=== PATIENT | male | born 1945 | race Caucasian/White ===

== ENCOUNTER 2023-05-23 13:36 | Outpatient (OUT) | payer MEDICARE, OTHER, SELFPAY ==
--- NOTE | 2023-05-23 14:11 | CA_ITS ---
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1945 Requested By: NARCISO BULLOCK Order Number: [id number] Reading MD: HARRISON METZGER Interpretive Statements Predominant rhythm is sinus with average rate of 64 bpm Tachycardia - max rate of 187 bpm - longest episode of 5min 4sec w/ rate of 109-115 bpm - 34 episodes of PSVT w/ longest duration of 61 beats Bradycardia - min rate of 35 bpm, occurring during sleep - longest episode of 1h 34min 6sec w/ rate of 40-50 bpm Ventricular ectopy - 732 total (<1%) - 726 PVC - 1 episode of NSVT w duration of 6 beats Accelerated junctional rhythm - duration 3 beats Patient triggered events: none Impression: Predominant rhythm is sinus with average rate of 64 bpm Fastest rate of 187 bpm and slowest rate of 35 bpm 726 PVC 1 episode of NSVT w/ duration of 6 beats 1 epidsode of suspected junctional rythm w/ duration of 3 beats No additional blocks or pauses Electronically Signed On 06-09-2023 7:12:33 EDT by HARRISON METZGER
== END 2023-05-23 13:37 | disposition home or self-care (01) ==
LOC: CARD 13:42
PROVIDERS: PCP Family Medicine; Visit Provider Family Medicine
DX: R00.1 Bradycardia, unspecified (principal)
CPT/HCPCS: 93246

== ENCOUNTER 2023-06-16 12:30 | Outpatient (OUT) | payer MEDICARE, OTHER, SELFPAY ==
--- NOTE | 2023-06-16 13:28 | CA_ITS ---
Patient: AMINA GANT Exam Date: 06/16/2023 : 1945 Gender:M Ordering : TAYLOR COREAS Admission #: [id number] Family : DR CULVERLAS ARA . Order #: [id number] CLICK HERE TO VIEW EXAM ECHOCARDIOGRAM REPORT PROCEDURE: CA ECHO DOPPLER COMPLETE INDICATIONS: Bradycardia, supraventricular tachycardia, heart murmur, hypertension, h/o prostate cancer COMPARISON: None. DESCRIPTION: COMPLETE ECHOCARDIOGRAM Real-time transthoracic echocardiography with 2D, M-mode, spectral and color flow Doppler performed. QUALITY: Technical quality was good. LEFT VENTRICLE: Normal chamber size. Thickened septal wall. Normal systolic function. LV EF: Normal left ventricular ejection fraction, (>55%). DIASTOLIC: Normal diastolic function. ATRIAL SEPTUM: Visually appears intact. LEFT ATRIUM: Normal chamber size. RIGHT ATRIUM: Normal chamber size. RIGHT VENTRICLE: Normal chamber size. Normal right ventricular systolic function. TRICUSPID VALVE: Normal mobility and thickness. No stenosis with mild regurgitation. Doppler studies reveal moderately elevated right sided pressures. RVSP 45 mmHg MITRAL VALVE: Normal mobility and thickness. No evidence of mitral valve stenosis. There is no mitral annular calcification. Trivial mitral regurgitation. AORTIC VALVE: Normal trileaflet appearance. Mildly calcified aortic valve. Mildly diminished mobility. No evidence of significant aortic valve stenosis. DVI 0.5. No aortic regurgitation. AORTIC ROOT: Normal diameter and appearance. PULMONIC VALVE: Normal thickness and mobility. No stenosis. Trivial regurgitation. PERICARDIUM: No evidence of pericardial effusion. IVC: Collapses with inspirations. PLEURA: CONCLUSION: 1. Normal ventricular function. LVEF is 55 to 60%. 2. Mildly calcified aortic valve with no significant stenosis. 3. Mild tricuspid regurgitation. 4. Moderately elevated right-sided pressures. RVSP is 45 mmHg. 5. No pericardial effusion. Adult Echocardiography Procedure Report Left Ventricle LVEDD (3.7 - 5.6 cm): 4.74 cm LVESD (2.2 - 4.0 cm): 2.80 cm LVIVS thickness (0.6 - 1.2 cm): 1.33 cm LVPW thickness (0.5 - 1.0 cm): 0.86 cm e': 0.11 m/s E - e': 5.73 LVOT Max Gradient: 5.08 mm[Hg] LVOT Area (cm2): 1.13 m/s Peak Velocity (LVOT): 1.13 m/s Mean Velocity (LVOT): 0.77 m/s LVOT Diameter 2.03 cm Left Atrium LA Volume Index (2D A2C): 23.62 ml/m2 Left Atrium Systolic Dimension: 3.65 cm Mitral Valve MV E to A Ratio: 0.90 Mitral Valve A-Wave Peak Velocity: 0.72 m/s Mitral Valve E-Wave Peak Velocity: 0.65 m/s Right Ventricle Aorta AO Root Diam: 3.11 cm Ascending Ao Diam: 3.01 cm Aortic Valve AoV Area (Peak Conrad): 1.73 cm2, 1.73 cm2 AoV Area (VTI): 2.30 cm2, 2.30 cm2 Peak Velocity(Antegrade Flow): 2.10 m/s Peak Gradient(Antegrade Flow): 17.72 mm[Hg] Mean Velocity(Antegrade Flow): 1.41 m/s Mean Gradient(Antegrade Flow): 9.13 mm[Hg] Velocity Time Integral: 37.35 cm Tricuspid Valve Peak Velocity (Regurgitant Flow): 3.19 m/s, 3.22 m/s, 3.17 m/s Pulmonic Valve Peak Velocity: 1.58 m/s Peak Gradient: 10.01 mm[Hg], 9.87 mm[Hg] Right Atrium Right Atrium Systolic Pressure: 36.22 ml, 36.22 ml Dictated by: Rio Muller M.D. on 06/16/2023 at 18:37 Approved by: Rio Muller M.D. on 06/16/2023 at 18:41
== END 2023-06-16 12:31 | disposition home or self-care (01) ==
LOC: CARD 12:33
PROVIDERS: PCP Family Medicine; Visit Provider Nurse Practitioner
DX: R94.31 Abnormal electrocardiogram [ECG] [EKG] (principal); I47.29 Other ventricular tachycardia; I47.1 Supraventricular tachycardia
CPT/HCPCS: 93306

== ENCOUNTER 2023-07-05 08:52 | Outpatient (OUT) | payer MEDICARE, OTHER, SELFPAY ==
--- NOTE | 2023-07-05 07:45 | NM_ITS ---
Patient: AMINA GANT Exam Date: 07/05/2023 : 1945 Gender:M Ordering : TAYLOR COREAS Admission #: [id number] Family : DR Jadon Duckworth . Order #: [id number] CLICK HERE TO VIEW EXAM RADIOLOGY REPORT PROCEDURE: NM SANDY PERF SPECT REST STR COMPARISON: None. INDICATIONS: ABNORMAL ELECTROCARDIOGRAM, NONSUSTAINED VENTRICULAR TACHYCARDIA TECHNIQUE: Exam Description: Stress/Rest one day protocol gated SPECT Rest Imagin.8 mCi Tc-99m Cardiolite IV on 07/05/2023 Stress Imaging 30.6 mCi Tc-99m Cardiolite IV on 07/05/2023 Exercise Protocol: Shawn Heart Rate (bpm): Rest: 67 Max: 134 PMHR: 87 Blood Pressure: Rest: 134/80 Max: 178/104 Exercise Time: Minutes: 6 Seconds: 30 Stage Reached: Stage: 2 Mets 7.0 Symptoms: Rest and peak stress ECG findings were pending and the exercise portion of the study was pending per attending physician Dr. CAMPOS . For more details please see separate cardiac stress test report. FINDINGS: QUALITY OF STUDY: Excellent. PERFUSION DEFECT: None. LOCATION: N/A SIZE: N/A. SEVERITY: N/A. TYPE: N/A. WALL MOTION: Normal. LV SIZE: Normal. 97 mL. TID / TCD: None; 0.8 LVEF: Normal. Calculated EF 65%. SUMMARY: Myocardial perfusion imaging study is NORMAL. CONCLUSION: 1. Normal nuclear medicine myocardial perfusion scan. Dictated by: Imtiaz Dodson M.D. on 07/06/2023 at 08:26 Approved by: Imtiaz Dodson M.D. on 07/06/2023 at 09:39
--- NOTE | 2023-07-05 08:52 | PCN_ITS ---
CARDIAC STRESS TEST ? Requesting Physician:? Procedure Date:? 07/05/2023 ? INDICATION:? Abnormal EKG, non-sustained ventricular tachycardia. ? METHODS:? After risks, benefits and alternatives were explained, written informed consent was obtained.? The patient was connected to the appropriate hemodynamic and electrocardiographic monitoring. ? He underwent a Shawn protocol for exercise.? At the completion of exercise, the test was terminated.? ? The patient tolerated the procedure well. ?There were no complications.? He was discharged in a stable state.? ? FINDINGS: The patient exercised for 6 minutes and 31 seconds, reaching stage 2 and achieving 7 METS.? ? Resting heart rate was 44 beats per minute, increasing to a maximum of 150 beats per minute, which is 104% of maximum predicted heart rate.? Resting blood pressure was 142/78 with a maximum blood pressure of 160/80.? ? Apart from shortness of breath, he had no other complaints. ? Electrocardiography: Rest EKG:? This shows sinus bradycardia, 51 beats per minute with occasional premature ventricular contractions.? Otherwise, normal EKG. ? During Exercise and Recovery:? There are infrequent premature ventricular contractions.? There is a short run of narrow complex, irregular, supraventricular tachycardia.? No significant ST-T wave changes are noted.? No significant arrhythmia apart from the paroxysmal supraventricular tachycardia is seen. ? FINAL IMPRESSION: 1.? No ischemic EKG changes seen on treadmill exercise stress test. 2.? Appropriate heart rate and blood pressure response to exercise. 3.? Short run of paroxysmal supraventricular tachycardia noted. 4.? Disla treadmill score 6.3; estimated one year mortality 0.3 to 0.9%.?? Risk category is low risk.? Angiography is usually not indicated. 5. Nuclear images are to be read, interpreted and reported in separate dictation. ? [facility]
== END 2023-07-05 08:53 | disposition home or self-care (01) ==
LOC: NM 09:12
PROVIDERS: PCP Family Medicine; Visit Provider Nurse Practitioner
DX: R94.31 Abnormal electrocardiogram [ECG] [EKG] (principal); I47.29 Other ventricular tachycardia; R00.1 Bradycardia, unspecified; R01.1 Cardiac murmur, unspecified
CPT/HCPCS: 78452; 93017; A9500

== ENCOUNTER 2023-09-25 08:53 | Outpatient (OUT) | payer MEDICARE, OTHER, SELFPAY ==
[2023-09-25 09:27] LABS: Basophils Percent Auto 0.5 % (0.2-2.0); Eosinophils Absolute Auto 0.1 10^3/uL (0.0-0.7); Eosinophils Percent Auto 0.9 % (0.9-7.0); Hematocrit 39.6 % (42.0-54.0); Hemoglobin 13.4 g/dL (14.0-18.0); Immature Granulocytes Abs Auto 0.02 10^3/uL (0.00-0.03); Immature Granulocytes Pct Auto 0.3 % (0.0-0.5); Lymphocytes Absolute Auto 2.9 10^3/uL (1.2-3.8); Lymphocytes Percent Auto 37.4 % (20.5-60.0); Mean Corpuscular HGB Conc 33.8 g/dL (29.9-35.2); Mean Corpuscular Hemoglobin 31.5 pg (25.9-34.0); Monocytes Absolute Auto 0.5 10^3/uL (0.3-0.8); Monocytes Percent Auto 6.6 % (1.7-12.0); Neutrophils Absolute Auto 4.2 10^3/uL (1.4-6.5); Neutrophils Percent Auto 54.3 % (43.0-75.0); Platelet Count 190 10^3/uL (150-450); Red Blood Count 4.26 10^6/uL (4.70-6.10); Red Cell Distribution Width 13.3 % (11.0-15.0); White Blood Count 7.7 10^3/uL (4.0-11.0)
[2023-09-25 09:38] LABS: Estimated Average Glucose 120 mg/dL; Glycohemoglobin A1C 5.8 % (4.5-6.2)
[2023-09-25 10:59] LABS: Prostate Specific Antigen Scrn <0.13 ng/mL (<=4.00)
[2023-09-25 11:03] LABS: Alanine Aminotransferase 40 U/L (16-63); Albumin Globulin Ratio 1.2; Alkaline Phosphatase 40 U/L (46-116); Anion Gap 10.4; Aspartate Amino Transferase 17 U/L (15-37); BUN Creatinine Ratio 15.5; Bilirubin Total 0.6 mg/dL (0.2-1.0); Carbon Dioxide 28.2 mmol/L (21.0-32.0); Chloride 97 mmol/L (98-107); Chol HDL Ratio 2.7; Cholesterol 163 mg/dL (<=200); Estimated GFR (African America >60 (>=60); Estimated GFR (Non-African Ame >60 (>=60); Free T3 2.41 pg/mL (2.18-3.98); Globulin 3.3 g/dL; Glucose 96 mg/dL (74-106); HDL Cholesterol 60 mg/dL (40-60); LDL Cholesterol Calculated 88.8 mg/dL; Potassium 4.6 mmol/L (3.5-5.1); Sodium 131 mmol/L (136-145); Thyroid Stimulating Hormone 1.891 uIU/mL (0.358-3.740); Total Protein 7.3 g/dL (6.4-8.2); Triglycerides 71 mg/dL (<=150); VLDL CHOLESTEROL 14.2 mg/dL
== END 2023-09-25 08:54 | disposition home or self-care (01) ==
LOC: LAB 08:55
PROVIDERS: PCP Family Medicine; Visit Provider Family Medicine
DX: I12.9 Hypertensive chronic kidney disease with stage 1 through stage 4 chronic kidney disease, or unspecified chronic kidney disease (principal); N18.30 Chronic kidney disease, stage 3 unspecified; D47.2 Monoclonal gammopathy; N48.6 Induration penis plastica; Z12.5 Encounter for screening for malignant neoplasm of prostate; R73.09 Other abnormal glucose
CPT/HCPCS: 36415; 80053; 80061; 83036; 84436; 84443; 84481; 85025; G0103

== ENCOUNTER 2023-11-14 09:12 | Outpatient (OUT) | payer MEDICARE, OTHER, SELFPAY ==
--- OUTSIDE RECORDS SUMMARY | 2023-11-14 09:23 | XMS_ITS | CCD ---
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 Mechanic Name Role Phone RIZWANATRELL TELLEZ Referring Unavailable Ileana Earl Unavailable Yudith Rubin Unavailable ARA Guy, DR STUART Primary Care Unavailable AAV, DR OWEN Admitting Unavailable AVA, DR OWEN Consulting Unavailable AVA, DR OWEN Attending Unavailable HOY ., DR STUART Admitting Unavailable HOY ., DR STUART Primary Care Unavailable HOY ., DR STUART Consulting Unavailable HOY ., DR STUART Attending Unavailable HOY ., DR STUART Admitting Unavailable HOY ., DR STUART Primary Care Unavailable HOY ., DR STUART Consulting Unavailable HOY ., DR STUART Attending Unavailable HOY ., DR STUART Admitting Unavailable HOY ., DR STUART Primary Care Unavailable HOY ., DR STUART Consulting Unavailable MICHELY ., DR STUART Attending Unavailable Narciso Duckworth MD Primary Care Provider [phone] NARCISO DUCKWORTH Primary Care Unavailable LYNDSAY RODRIGUEZ Referring Unavailable NARCISO DUCKWORTH Referring Unavailable NARCISO DUCKWORTH Primary Care Unavailable LYNDSAY RODRIGUEZ Attending Unavailable ALTHEA KOROMA Attending Unavailable TAYLOR COREAS Attending Unavailable PARI RIDER Attending Unavailable TAYLOR COREAS Attending Unavailable Medications Current Medications Medication Drug Class(es) Dates Sig (Normalized) Sig (Original) Acidophilus Extra Strength - (2 sources) Acidophilus Extr a Strength - as directed Orally Active Glasscock 500 MG (2 sources) Glasscock 500 MG a s directed Orally Active artemether / lumefantrine (1 source) Antimalarial Artemether-Lumef antrine 20-120 MG as directed Orally Active Coconut Oil (2 sources) Coconut Oil TWIC E A DAY Active Coconut Oil Acti ve Fish Oils (2 sources) take 1 capsule by mo ut once daily Fish Oil 1000 MG 1 capsule Orally Once a day Active Glucosamine Chond MSM Formul a - (2 sources) Glucosamine Barrett d MSM Formula - as directed Orally TWICE A DAY Active Multivitamins (2 sources) Multivitamins as directed Orally Active quercetin 50 mg oral tablet (1 source) take 1 tablet by dom once daily Quercetin 50 MG 1 tablet Orally Once a day Active [place] 540 mg (2 sources) take 1 capsule by mo ut once daily [place] 540 mg 1 Capsule Orally Daily Active taurine 500 mg oral tablet (2 sources) take 1 capsule by mo ut once daily Taurine 500 MG 1 capsule Orally Once a day Active turmeric extract 500 mg oral capsule (2 sources) Turmeric 500 MG as directed Orally Active ubidecarenone 200 mg oral capsule (2 sources) take 1 capsule by mo ut every twenty-four hours CoQ10 200 MG 1 capsule with a meal Orally Once a day for 30 day(s) Active Vitamin C 1000 mg (2 sources) take 1 tablet by dom once daily Vitamin C 1000 mg 1 tablet Orally Once a day Active Vitamin E 400 UNIT (2 sources) take 1 capsule by mo ut once daily Vitamin E 400 UNIT 1 capsule Orally Once a day Active Completed/Discontinued Medications Medication Drug Class(es) Dates Sig (Normalized) Sig (Original) acetaminophen 500 mg oral tablet (1 source) End: 05-16-2023 acetaminophen (TYLENOL EXTRA STRENGTH) 500 mg tablet Take 1,000 mg by mouth as needed. 0 05/16/2023 Discontinued Comment on above: Take 1,000 mg by dom as needed. ascorbic acid 1000 mg oral tablet (3 sources) Vitamin C take 3 tablets by mouth three times weekly Ascorbic Acid (VITAMIN C) 1,000 mg tablet Take 3,000 mg by mouth 3 times a WEEK. 0 Active Comment on above: Take 3,000 mg by dom 3 times a WEEK. aspirin 81 mg delayed release oral tablet (6 sources) Platelet Aggregation Inhibitor, Nonsteroidal Anti-inflammatory Drug Start: 07-16-2019 take 1 tablet by mouth twice daily aspirin, enteric coated (ASPIRIN, ENTERIC COATED) 81 mg EC tablet Take 1 tablet by mouth twice daily for 14 days. 28 tablet 0 07/16/2019 Active take 1 tablet by mouth once nikki y aspirin, enteric coated (ASPIRIN, ENTERIC COATED) 81 mg EC tablet Indications: Prostate cancer (HCC) Take 81 mg by mouth once daily. 0 Active take 1 tablet by dom th every twenty-four hours Aspirin 81 MG 1 tablet Orally Once a day Active Comment on above: Take 81 mg by mouth once daily. Take 1 tablet by dom th twice daily for 14 days. diclofenac sodium 25 mg delayed release oral tablet (5 sources) Nonsteroidal Anti-inflammatory Drug take 1 tablet by mouth twice daily diclofenac, EC, (VOLTAREN) 25 mg EC tablet Take 25 mg by mouth twice daily. 0 Active take 1 tablet by dom th every twelve hours Diclofenac Sodium 75 MG 1 tablet Orally Twice a day Active Comment on above: Take 25 mg by mouth twice daily. docusate sodium 100 mg oral capsule (1 source) Start: 9 End: 3 take 1 capsule by mouth twice daily docusate sodium (COLACE) 100 mg capsule Take 1 capsule by mouth twice daily. 60 capsule 1 07/16/2019 05/16/2023 Discontinued Comment on above: Take 1 capsule by mo [facility] twice daily. Garlic preparation (1 source) Non-Standardized Food Allergenic Extract End: 3 take 1 tablet by mouth once daily GARLIC ORAL Indications: Prostate cancer (HCC) Take 1 tablet by mouth once daily. 0 05/16/2023 Discontinued Comment on above: Take 1 tablet by dom once daily. Lactobac no.41-Bifidobact no.7 (PROBIOTIC-10) 70 mg (3 billion cell) cap (3 sources) take 1 capsule by mouth once daily Lactobac no.41-Bifidobact no.7 (PROBIOTIC-10) 70 mg (3 billion cell) cap Take 1 capsule by mouth once daily. 0 Active Comment on above: Take 1 capsule by mo uth once daily. lecithin 1200 mg oral capsule (1 source) End: 3 take 1 capsule by mouth once daily Lecithin 1,200 mg cap Take 1 capsule by mouth once daily. 0 05/16/2023 Discontinued Comment on above: Take 1 capsule by mo ut once daily. losartan potassium 100 mg oral tablet (6 sources) Angiotensin 2 Receptor Igor Start: 12-09-201 6 take 1 tablet by mouth once daily losartan (COZAAR) 100 mg tablet Indications: Prostate cancer (HCC) Take 100 mg by mouth once daily. 0 09/23/2016 Active take 1 tablet by mouth once nikki y Losartan Potassium 50 MG TAKE 1 TABLET BY MOUTH DAILY for 90 Active Comment on above: Take 100 mg by mouth once daily. lovastatin 20 mg oral tablet (5 sources) HMG-CoA Reductase Inhibitor take 1 tablet by mouth once daily at bedtime lovastatin (MEVACOR) 20 mg tablet Take 20 mg by mouth daily at bedtime. 0 Active Comment on above: Take 20 mg by mouth daily at bedtime. MINERALS ORAL (3 sources) take 1 tablet by mouth once daily MINERALS ORAL Take 1 tablet by mouth once daily. 0 Active Comment on above: Take 1 tablet by dom th once daily. multivitamin (MULTIPLE VITAMINS) tablet (3 sources) take 1 tablet by mouth once daily multivitamin (MULTIPLE VITAMINS) tablet Take 1 tablet by mouth once daily. 0 Active Comment on above: Take 1 tablet by dom th once daily. mupirocin 0.02 mg/mg topical ointment (3 sources) RNA Synthetase Inhibitor Antibacterial Start: 06-25-20 19 mupirocin (BACTROBAN) 2 % ointment Apply 0.5 inch with cotton swab (Q-tip) to each nostril in the morning and evening for 5 days prior to and including day of surgery. 22 g 0 06/25/2019 Active Comment on above: Apply 0.5 inch with cotton swab (Q-tip) to each nostril in the morning and evening for 5 days prior to and including day of surgery. Onpbu-4-GMJ-EPA-Fish Oil (FISH OIL) 1,000 mg (120 mg-180 mg) cap (3 sources) take 1 capsule by mouth once daily Cvyaq-7-RTC-EPA-Fish Oil (FISH OIL) 1,000 mg (120 mg-180 mg) cap Take 1 g by mouth once daily. 0 Active Comment on above: Take 1 g by mouth on ce daily. prasterone 50 mg oral tablet (5 sources) take 1 tablet by mouth once daily prasterone, dhea, (DHEA) 50 mg tab Take 50 mg by mouth once daily. 0 Active DHEA 50 50 MG as directed Orally TWICE A DAY Active DHEA 50 50 MG as directed Orally once a day Active Comment on above: Take 50 mg by mouth once daily. Esvin Coleo 160 mg capsule (3 sources) take 1 capsule by mouth three times daily [place] 160 mg capsule Take 160 mg by mouth three times daily. 0 Active Comment on above: Take 160 mg by mouth three times daily. spironolactone 50 mg oral tablet (5 sources) Aldosterone Antagonist take 1 tablet by mouth once daily spironolactone (ALDACTONE) 50 mg tablet Take 50 mg by mouth once daily. 0 Active Comment on above: Take 50 mg by mouth once daily. tamsulosin hydrochloride 0.4 mg oral capsule (5 sources) alpha-Adrenergic Igor Start: 09-30-20 16 take 0.4 mg by mouth once daily tamsulosin ER (FLOMAX) 0.4 mg cp24 Indications: Prostate cancer (HCC) Take 0.4 mg by mouth once daily. 0 09/30/2016 Active Comment on above: Take 0.4 mg by mouth once daily. turmeric-turmeric root extract 450-50 mg cap (3 sources) take 1 capsule by mouth once daily turmeric-turmeric root extract 450-50 mg cap Take 1 capsule by mouth once daily. 0 Active Comment on above: Take 1 capsule by mo uth once daily. Vitamin B Complex (5 sources) take 1 tablet by mouth once daily vitamin b complex tab Take 1 tablet by mouth once daily. 0 Active Vitamin B Comple x - Orally Active Comment on above: Take 1 tablet by dom th once daily. VITAMIN E ACETATE ORAL (3 sources) take 1200 mg by mouth twice daily VITAMIN E ACETATE ORAL Take 1,200 mg by mouth twice daily. 0 Active Comment on above: Take 1,200 mg by dom th twice daily. Problems Active Problems Problem Classification Problem Date Documented Da te Episodic/Chronic Cardiac dysrhythmias (2 sources) Supraventricular tachycardia; Translations: [Supraventricular tachycardia] Onset: 3 Chronic Chronic kidney disease (8 sources) Chronic kidney disease stage 3; Translations: [Chronic kidney disease, stage 3 (moderate)] Onset: 8 05-16-2023 Chronic Chronic kidney disease (7 sources) Chronic kidney disease; Translations: [Chronic kidney disease, stage 3a] Onset: 1 Resolved: 1 Deficiency and other anemia (3 sources) Anemia of renal disease; Translations: [Anemia in chronic kidney disease] 05-16-2023 Chronic Deficiency and other anemia (2 sources) Anemia in chronic kidney disease Onset: 1 Resolved: 1 Chronic Deficiency and other anemia (2 sources) Iron deficiency anemia; Translations: [Iron deficiency anemia, unspecified] Episodic Disorders of lipid metabolism (5 sources) Pure hypercholesterolemia, unspecified; Translations: [Hyperlipidemia, unspecified] Onset: 7 07-16-2019 Chronic Essential hypertension (6 sources) Essential hypertension; Translations: [Essential (primary) hypertension] Onset: 8 05-16-2023 Chronic Gastrointestinal hemorrhage (2 sources) Hematochezia; Translations: [Melena] Episodic Hypertension with complications and secondary hypertension (4 sources) Hypertensive renal disease; Translations: [Hypertensive chronic kidney disease with stage 1 through stage 4 chronic kidney disease, or unspecified chronic kidney disease] Onset: 1 Resolved: 1 Chronic Osteoarthritis (11 sources) Primary osteoarthritis, right shoulder; Translations: [Localized, primary osteoarthritis of the shoulder region] Onset: 8 Resolved: 1 Chronic Other connective tissue disease (1 source) Presence of left artificial shoulder joint; Translations: [Presence of left artificial shoulder joint] Onset: 9 Chronic Other connective tissue disease (3 sources) History of operative procedure on shoulder; Translations: [Presence of unspecified artificial shoulder joint] Onset: 7 03-15-2017 Chronic Other connective tissue disease (3 sources) History of left shoulder arthroplasty; Translations: [Presence of left artificial shoulder joint] Onset: 9 07-01-2021 Chronic Residual codes; unclassified (1 source) Generalized aches and pains; Translations: [Pain, unspecified] 05-16-2023 Episodic Unclassified (3 sources) CONTACT W/AND (SUSP) EXPOS COVID-19; Translations: [CONTACT W/AND (SUSP) EXPOS COVID-19] Onset: 2 Unclassified (1 source) COUGH, UNSPECIFIED; Translations: [COUGH, UNSPECIFIED] Onset: 2 Unclassified (1 source) Supraventricular tachycardia, unspecified; Translations: [Supraventricular tachycardia, unspecified] Onset: 3 Unclassified (1 source) Other ventricular tachycardia; Translations: [Other ventricular tachycardia] Onset: 3 Past or Other Problems Problem Classification Problem Date Documented Date Episodic/Chronic Cardiac dysrhythmias (3 sources) Bradycardia; Translations: [Bradycardia, unspecified] Onset: 06-06-2023 05-16-2023 Episodic Diabetes mellitus without complication (1 source) Other abnormal glucose; Translations: [OTHER ABNORMAL GLUCOSE] Onset: 09-02-2022 Episodic Heart valve disorders (2 sources) Cardiac murmur, unspecified; Translations: [Cardiac murmur, unspecified] Onset: 06-06-2023 Episodic Malaise and fatigue (1 source) Other fatigue; Translations: [OTHER FATIGUE] Onset: 09-02-2022 Episodic Other aftercare (1 source) Other halfway (current) drug therapy; Translations: [OTH SALES REPRESENTATIVE TRAINEE CURRENT DRUG THERAPY] Onset: 09-02-2022 Episodic Other non-traumatic joint disorders (1 source) Pain in unspecified joint; Translations: [PAIN IN UNSPECIFIED JOINT] Onset: 09-02-2022 Episodic Other non-traumatic joint disorders (3 sources) Shoulder pain; Translations: [Pain in unspecified shoulder] Onset: 07-16-2019 07-16-2019 Episodic Other screening for suspected conditions (not mental disorders or infectious disease) (4 sources) Encounter for screening for malignant neoplasm of prostate; Translations: [Encounter for screening for malignant neoplasm of rectum] Onset: 09-02-2022 Episodic Other upper respiratory disease (1 source) Nasal congestion; Translations: [NASAL CONGESTION] Onset: 10-07-2022 Episodic Unclassified (1 source) CONTACT W/AND (SUSP) EXPOS COVID-19; Translations: [CONTACT W/AND (SUSP) EXPOS COVID-19] Onset: 10-03-2022 Unclassified (1 source) Supraventricular tachycardia, unspecified; Translations: [Supraventricular tachycardia, unspecified] Onset: 08-08-2023 Unclassified (1 source) Other ventricular tachycardia; Translations: [Other ventricular tachycardia] Onset: 06-06-2023 Results Test Name Value Interpretation Reference Range Facility Office [place] 10-02-2023 Follow-up visit [id number] Amina Lim 1945 Date Provider Department [place] 10/02/2023 1596-TAYLOR COREAS LEIDY Aguir[facility] Family History Problem Relation Age of Onset Other Father Lupus Father Family Status - Relation Status Age at Father Level of Service:21260 OR OFFICE/OUTPATIENT ESTABLISHED MOD MDM [address] [facility] Office [place] 08-08-2023 Follow-up visit [id number] Amina Lim 1945 M Date Provider Department [facility] 08/08/2023 241-PARI RIDER LEIDY [facility] Family History Problem Relation Age of Onset Other Father Lupus Father Family Status - Relation Status Age at Father Level of Service:53295 OR OFFICE/OUTPATIENT NEW MODERATE MDM 45-[address] [facility] 36on 07-17-2023 36 Basia, can you please get this patient scheduled for a telemed with Dr. Rider ([facility]) next available?? Thank you! [facility] 36on 07-13-2023 36 Patient called to nv ke you aware that he's had several episodes of near syncope. He's checked his blood sugar, HR, and BP during these episodes. Blood sugar is normal (107). BP has been 147/68, 144/70, 141/70. HR around 48 he said. You're here on Monday but have 17 patients already. Wasn't sure if you wanted me to bring him in or if you wanted something else. His stress test is now uploaded into his remediation project engineer for your review. Please advise. Thanks. [facility] 25(OH)D3 [facility] 2022 25-hydroxyvitamin D3 [Mass/Vol] 37.6 ng/mL Normal 31.0-80.0 [facility] Comment on above: Order Comment: Speci men Type: BLOOD SPECIMEN Ordering Facility: [facility] Address: [address] [place] [id number] Result Comment: Clas sification of 25 [place] Vitamin D status: Deficiency/Insufficiency: < or = 30 ng/ml. Sufficiency/Optimal Levels: 31-80 ng/mL Toxicity: > 100 ng/mL. Test performed by chemiluminescent immunoassay. Performed By: #### 1 989-3 #### [facility] CLIA [id number] [address] [facility] [id number] [address] [place] CBC panel Auto (Bld)on 06-14 Erythrocyte distribution width (RBC) [Ratio] 13.8 % Normal 11.5-15.0 [facility] Comment on above: Order Comment: Speci men Type: BLOOD SPECIMEN Ordering Facility: [facility] Address: [address] [place] [address] Performed By: #### 5 8410-2 #### [facility] CLIA [id number] [address] [place] [address] Hematocrit (Bld) [Volume fraction] 40.1 % Normal 39.0-51.0 [facility] Comment on above: Order Comment: Speci men Type: BLOOD SPECIMEN Ordering Facility: [facility] Address: [address] [place] [address] Performed By: #### 5 8410-2 #### [facility] CLIA [id number] [address] [place] [address] Hemoglobin (Bld) [Mass/Vol] 13.6 g/dL Normal 13.0-17.0 [facility] Comment on above: Order Comment: Speci men Type: BLOOD SPECIMEN Ordering Facility: [facility] Address: [address] [place] [address] Performed By: #### 5 8410-2 #### [facility] CLIA [id number] [address] [place] [address] MCH (RBC) [Entitic mass] 30.8 pg Normal 26.0-34.0 [facility] Comment on above: Order Comment: Speci men Type: BLOOD SPECIMEN Ordering Facility: [facility] Address: [address] [place] [address] Performed By: #### 5 8410-2 #### [facility] CLIA [id number] [address] [place] [address] MCHC (RBC) [Mass/Vol] 33.9 g/dL Normal 30.5-36.0 [facility] Comment on above: Order Comment: Speci men Type: BLOOD SPECIMEN Ordering Facility: [facility] Address: [address] [address] Performed By: #### 5 8410-2 #### [facility] CLIA [id number] [address] [place] [address] MCV (RBC) [Entitic vol] 90.7 fL Normal 80.0-100.0 [facility] Comment on above: Order Comment: Speci men Type: BLOOD SPECIMEN Ordering Facility: [facility] Address: [address] [address] Performed By: #### 5 8410-2 #### [facility] CLIA [id number] [address] [place] [address] Nucleated RBC (Bld) [#/Vol] 10*3/uL Normal <0.01 [facility] Comment on above: Order Comment: Speci men Type: BLOOD SPECIMEN Ordering Facility: [facility] Address: [address] [address] Performed By: #### 5 8410-2 #### [facility] CLIA [id number] [address] [place] [address] Platelet mean volume (Bld) [Entitic vol] 9.4 fL Normal 9.0-12.7 [facility] Comment on above: Order Comment: Speci men Type: BLOOD SPECIMEN Ordering Facility: [facility] Address: [address] [address] Performed By: #### 5 8410-2 #### [facility] CLIA [id number] [address] [place] [address] Platelets (Bld) [#/Vol] 202 10*3/uL Normal 150-400 [facility] Comment on above: Order Comment: Speci men Type: BLOOD SPECIMEN Ordering Facility: [facility] Address: [address] [address] Performed By: #### 5 8410-2 #### [facility] CLIA [id number] [address] [place] [address] RBC (Bld) [#/Vol] 4.42 10*6/uL Normal 4.20-6.00 [facility] Comment on above: Order Comment: Speci men Type: BLOOD SPECIMEN Ordering Facility: [facility] Address: [address] [place] [address] Performed By: #### 5 8410-2 #### [facility] CLIA [id number] [address] [place] [address] WBC (Bld) [#/Vol] 9.80 10*3/uL Normal 3.70-11.00 [facility] Comment on above: Order Comment: Speci men Type: BLOOD SPECIMEN Ordering Facility: [facility] Address: [address] [place] [address] Performed By: #### 5 8410-2 #### [facility] CLIA [id number] [address] [place], [place] [id number] IMMUNOFIXATION SCREEN, SERUM on 06-14-2023 INTERPRETATION (MPA) Atypical restricted bands are present in the IgG and kappa regions. Consistent with IgG kappa monoclonal gammopathy. Normal [facility] Comment on above: Order Comment: Speci men Type: BLOOD SPECIMEN Ordering Facility: [facility] Address: [address] [place] [address] Performed By: #### I FESC #### [facility] CLIA [id number] [address] [place] [address] [place] MPA RESULT M protein is present. Abnormal No M p rotein is identified. [facility] Comment on above: Order Comment: Speci men Type: BLOOD SPECIMEN Ordering Facility: [facility] Address: [address] [place] [address] Performed By: #### I FESC #### [facility] CLIA [id number] [facility] [address] OF [place] STAFF REVIEW (MPA) Reviewed by Dr. Gwen Valencia MD Normal [facility] Comment on above: Order Comment: Speci men Type: BLOOD SPECIMEN Ordering Facility: [facility] Address: [address] [address] Performed By: #### I FESC #### [facility] CLIA [id number] [address] [place] [address] [place] IMMUNOGLOBULINS GAMon 2022 IgA [Mass/Vol] 20 mg/dL Low 70-400 [facility] Comment on above: Order Comment: Speci men Type: BLOOD SPECIMEN Ordering Facility: [facility] Address: [address] [address] Performed By: #### S ERIMM #### [facility] CLIA [id number] [address] [place] [address] [place] IgG [Mass/Vol] 1106 mg/dL Normal 700-1600 [facility] Comment on above: Order Comment: Speci men Type: BLOOD SPECIMEN Ordering Facility: [facility] Address: [address] [place] [address] Performed By: #### S ERIMM #### [facility] CLIA [id number] [address] [place] [address] [place] IgM [Mass/Vol] 14 mg/dL Low 40-230 [facility] Comment on above: Order Comment: Speci men Type: BLOOD SPECIMEN Ordering Facility: [facility] Address: [address] [place], [place] [id number] Performed By: #### S ERIMM #### [facility] CLIA [id number] [address] [place] [address] [place] KAPPA/RHODES,FREE,SERon 2022 Immunoglobulin light chains.kappa.free (S) [Mass/Vol] 20.2 mg/L High 3.3-19.4 [facility] Comment on above: Order Comment: Speci men Type: BLOOD SPECIMEN Ordering Facility: [facility] Address: [address] [place] [address] Result Comment: Rare ly, increased serum free light chains levels may not be detected or accurately quantified due to prozone phenomenon or in high viscosity samples using this immunoturbidimetric assay. Correlation with other laboratory results and clinical findings is recommended. The [place] Free Light Chain was performed using the Binding Site Optilite immunoturbidimetric method. Result obtained with different assay methods or kits cannot be used interchangeably. Performed By: #### K LFRS #### [facility] CLIA [id number] [address] [place] [address] [place] Immunoglobulin light chains.kappa/Immuno globulin light chains.lambda (S) [Mass ratio] 2.13 High 0.26-1.65 [facility] Comment on above: Order Comment: Gianna ball Type: BLOOD SPECIMEN Ordering Facility: [facility] Address: [address] [place] [address] Performed By: #### K LFRS #### [facility] CLIA [id number] [address] [place] [address] OF [facility] Immunoglobulin light chains.lambda.free [Mass/Vol] 9.5 mg/L Normal 5.7-26.3 [facility] Comment on above: Order Comment: Gianna ball Type: BLOOD SPECIMEN Ordering Facility: [facility] Address: [address] [place] [address] Result Comment: Rare ly, increased serum free light chains levels may not be detected or accurately quantified due to prozone phenomenon or in high viscosity samples using this immunoturbidimetric assay. Correlation with other laboratory results and clinical findings is recommended. The Lambda Free Light Chain was performed using the Binding Site Optilite immunoturbidimetric method. Result obtained with different assay methods or kits cannot be used interchangeably. Performed By: #### K LFRS #### [facility] CLIA [id number] [address] [place] [address] [place] [facility] Parathyrin.intact [Mass/Vol] 38 pg/mL Normal 15-65 [facility] Comment on above: Order Comment: Speci men Type: BLOOD SPECIMEN Ordering Facility: [facility] Address: [address] [address] Performed By: #### 2 731-8 #### [facility] CLIA [id number] [address] [place] [address] [place] Prot/Creat Uron 06-14-2023 Protein/Creatinine (U) [Mass ratio] mg/g Normal <0.15 [facility] Comment on above: Order Comment: Speci men Type: URINE SPECIMEN Ordering Facility: [facility] Address: [address] [address] Result Comment: Adul t Proteinuria Categories: <0.15 mg/mg is considered normal to mildly increased 0.15 - 0.50 mg/mg is considered moderately increased >0.50 mg/mg is considered severely increased KDIGO. (2013). KDIGO 2012 Clinical Practice Guideline for the Evaluation and Management of Chronic Kidney Disease. Official Journal of the International Society of Nephrology, 3(1), 1-150. Performed By: #### 2 4356-8 #### [facility] CLIA [id number] [address] [place] [address] [place] Protein/Creatinine (U) [Mass ratio]on 06-14-2023 Creatinine (U) [Mass/Vol] 45.4 mg/dL Normal 20.0-300.0 [facility] Comment on above: Order Comment: Speci men Type: URINE SPECIMEN Ordering Facility: [facility] Address: [address] Performed By: #### 2 4356-8 #### [facility] CLIA [id number] [address] [place] [address] [place] Protein (U) [Mass/Vol] mg/dL Normal 0-20 [facility] Comment on above: Order Comment: Speci men Type: URINE SPECIMEN Ordering Facility: [facility] Address: [address] Performed By: #### 2 4356-8 #### [facility] CLIA [id number] [address] [place] [address] [place] Renal function 2000 panelon 06-14-2023 Albumin [Mass/Vol] 4.6 g/dL Normal 3.9-4.9 [facility] Comment on above: Order Comment: Speci men Type: URINE SPECIMEN Ordering Facility: [facility] Address: [address] [place], [place] [address] Performed By: #### 2 4356-8 #### [facility] CLIA [id number] [address] [place] [address] [place] Anion gap [Moles/Vol] 9 mmol/L Normal 9-18 [facility] Comment on above: Order Comment: Speci men Type: URINE SPECIMEN Ordering Facility: [facility] Address: [address] [place], [place] [address] Performed By: #### 2 4356-8 #### [facility] CLIA [id number] [address] [place] [address] [place] Calcium [Mass/Vol] 9.5 mg/dL Normal 8.5-10.2 [facility] Comment on above: Order Comment: Speci men Type: URINE SPECIMEN Ordering Facility: [facility] Address: [address] [place], [place] [address] Performed By: #### 2 4356-8 #### [facility] CLIA [id number] [address] [place] [address] [place] Chloride [Moles/Vol] 97 mmol/L Normal 97-105 [facility] Comment on above: Order Comment: Speci men Type: URINE SPECIMEN Ordering Facility: [facility] Address: [address] Performed By: #### 2 4356-8 #### [facility] CLIA [id number] [address] [place] [address] [place] CO2 [Moles/Vol] 28 mmol/L Normal 22-30 [facility] Comment on above: Order Comment: Speci men Type: URINE SPECIMEN Ordering Facility: [facility] Address: [address] [address] Performed By: #### 2 4356-8 #### [facility] CLIA [id number] [address] [place] [address] [place] Creatinine [Mass/Vol] 1.47 mg/dL High 0.73-1.22 [facility] Comment on above: Order Comment: Speci men Type: URINE SPECIMEN Ordering Facility: [facility] Address: [address] Performed By: #### 2 4356-8 #### [facility] CLIA [id number] [address] [place] Creatinine and Glomerular filtration rate.predicted panel (S/P/Bld) 49 mL/min/1.73m??? Low >=60 [facility] Comment on above: Order Comment: Speci men Type: URINE SPECIMEN Ordering Facility: [facility] Address: [address] [place] [address] Result Comment: Shira mated Glomerular Filtration Rate (eGFR) is calculated using the 2020 CKD-EPI creatinine equation. This equation utilizes serum creatinine, sex, and age as parameters. The creatinine assay has traceable calibration to isotope dilution-mass spectrometry. Refer to KDIGO guidelines for clinical interpretation. In patients with unstable renal function, e.g. those with acute kidney injury, the eGFR may not accurately reflect actual GFR. Performed By: #### 2 4356-8 #### [facility] CLIA [id number] [address] [place] [address] [place] Glucose [Mass/Vol] 112 mg/dL High 74-99 [facility] Comment on above: Order Comment: Speci men Type: URINE SPECIMEN Ordering Facility: [facility] Address: [address] [address] Result Comment: The [place] Diabetes Association (ADA) provides guidance for cutoff values for fasting glucose and random glucose. The ADA defines fasting as no caloric intake for at least 8 hours. Fasting plasma glucose results between 100 to 125 mg/dL indicate increased risk for diabetes (prediabetes). Fasting plasma glucose results greater than or equal to 126 mg/dL meet the criteria for diagnosis of diabetes. In the absence of unequivocal hyperglycemia, results should be confirmed by repeat testing. In a patient with classic symptoms of hyperglycemia or hyperglycemic crisis, random plasma glucose results greater than or equal to 200 mg/dL meet the criteria for diagnosis of diabetes. Reference: Standards of Medical Care in Diabetes 2016, [place] [employer] Association. Diabetes Care. 2016.39(Suppl 1). Performed By: #### 2 4356-8 #### [facility] CLIA [id number] [facility] [place] [place] [address] [place] Phosphate [Mass/Vol] 3.3 mg/dL Normal 2.7-4.8 [facility] Comment on above: Order Comment: Speci men Type: URINE SPECIMEN Ordering Facility: [facility] Address: [address] [address] Performed By: #### 2 4356-8 #### [facility] CLIA [id number] [address] [place] [address] [place] Potassium [Moles/Vol] 4.2 mmol/L Normal 3.7-5.1 [facility] Comment on above: Order Comment: Speci men Type: URINE SPECIMEN Ordering Facility: [facility] Address: [address] Performed By: #### 2 4356-8 #### [facility] CLIA [id number] [address] [place] [address] [place] Sodium [Moles/Vol] 134 mmol/L Low 136-144 [facility] Comment on above: Order Comment: Speci men Type: URINE SPECIMEN Ordering Facility: [facility] Address: [address] Performed By: #### 2 4356-8 #### [facility] CLIA [id number] [address] [place] [address] [place] Urea nitrogen [Mass/Vol] 25 mg/dL High 9-24 [facility] Comment on above: Order Comment: Speci men Type: URINE SPECIMEN Ordering Facility: [facility] Address: [address] Performed By: #### 2 4356-8 #### [facility] CLIA [id number] [address] [place] [address] [place] Urinalysis complete panel (U )on 06-14-2023 Bilirubin Ql (U) Negative Normal Negative [facility] Comment on above: Order Comment: Speci men Type: URINE SPECIMEN Ordering Facility: [facility] Address: [address] [place] [address] Performed By: #### 2 4356-8 #### [facility] CLIA [id number] [facility] [place] [place] [address] [place] Clarity (Unsp spec) Clear Normal Clear [facility] Comment on above: Order Comment: Speci men Type: URINE SPECIMEN Ordering Facility: [facility] Address: [address] [place], [place] [address] Performed By: #### 2 4356-8 #### [facility] CLIA [id number] [address] [place] [address] [place] Color (U) Light Yellow Normal Yellow [facility] Comment on above: Order Comment: Speci men Type: URINE SPECIMEN Ordering Facility: [facility] Address: [address] Performed By: #### 2 4356-8 #### [facility] CLIA [id number] [address] [place] [address] [place] Glucose Test strip (U) [Mass/Vol] Negative Normal Trace, Negative [facility] Comment on above: Order Comment: Speci men Type: URINE SPECIMEN Ordering Facility: [facility] Address: [address] [place] [address] Performed By: #### 2 4356-8 #### [facility] CLIA [id number] [address] [place] [address] [place] Hemoglobin Ql (U) Negative Normal Negative, Trace [facility] Comment on above: Order Comment: Speci men Type: URINE SPECIMEN Ordering Facility: [facility] Address: [address] Performed By: #### 2 4356-8 #### [facility] CLIA [id number] [address] [place] [address] [place] Ketones Ql (U) Negative Normal Trace, Negative [facility] Comment on above: Order Comment: Speci men Type: URINE SPECIMEN Ordering Facility: [facility] Address: [address] [place] [address] Performed By: #### 2 4356-8 #### [facility] CLIA [id number] [address] [place] [address] [place] Leukocyte esterase Test strip Ql (U) Negative Normal Negative, 25 Bubba/uL [facility] Comment on above: Order Comment: Speci men Type: URINE SPECIMEN Ordering Facility: [facility] Address: [address] [place], [place] [address] Performed By: #### 2 4356-8 #### [facility] CLIA [id number] [address] [place] [address] [place] Nitrite Ql (U) Negative Normal Negative [facility] Comment on above: Order Comment: Speci men Type: URINE SPECIMEN Ordering Facility: [facility] Address: [address] [place], [place] [address] Performed By: #### 2 4356-8 #### [facility] CLIA [id number] [address] [place] [address] [place] pH (U) 6.5 [pH] Normal 5.0-8.0 [facility] Comment on above: Order Comment: Speci men Type: URINE SPECIMEN Ordering Facility: [facility] Address: [address] Performed By: #### 2 4356-8 #### [facility] CLIA [id number] [address] [place] [address] [place] Protein (U) [Mass/Vol] Negative Normal Trace, Negative [facility] Comment on above: Order Comment: Speci men Type: URINE SPECIMEN Ordering Facility: [facility] Address: [address] Performed By: #### 2 4356-8 #### [facility] CLIA [id number] [address] [place] [address] [place] RBC LM.HPF (Urine sed) [#/Area] 0-3 /HPF Normal 0-3 /HPF [facility] Comment on above: Order Comment: Speci men Type: URINE SPECIMEN Ordering Facility: [facility] Address: [address] Performed By: #### 2 4356-8 #### [facility] CLIA [id number] [address] [place] [address] [place] Specific gravity (U) [Rel density] 1.012 Normal 1.005-1.030 [facility] Comment on above: Order Comment: Speci men Type: URINE SPECIMEN Ordering Facility: [facility] Address: [address] Performed By: #### 2 4356-8 #### [facility] CLIA [id number] [address] [place] [address] [place] Urobilinogen Ql (U) Negative Normal Negative [facility] Comment on above: Order Comment: Speci men Type: URINE SPECIMEN Ordering Facility: [facility] Address: [address] Performed By: #### 2 4356-8 #### [facility] CLIA [id number] [address] [place] [address] [place] WBC LM.HPF (Urine sed) [#/Area] 0-5 /HPF Normal 0-5 /HPF [facility] Comment on above: Order Comment: Speci men Type: URINE SPECIMEN Ordering Facility: [facility] Address: [address] [place] [address] Performed By: #### 2 4356-8 #### [facility] CLIA [id number] [address] [id number] [place] Office Visiton 06-06-2023 Follow-up visit [id number] Amina Lim 1945 M Date Provider Department Center 06/06/2023 [facility] Family History Problem Relation Age of Onset Other Father Lupus Father Family Status - Relation Status Age at Father Level of Service:51674 OR OFFICE/OUTPATIENT NEW MODERATE MDM 45-59 MINUTES Normal [facility] CNOVon 05-16-2023 CNOV Office Visit (KIDFRW ) AMINA LIM ([id number]) 1945 M Date Time Provider Department 05/16/23 9:20 AM LYNDSAY RODRIGUEZ During your visit today, we recorded the following information about you: Pulse Blood pressure Weight Height 43/minute 171/77 92.5 kg 1.791 m Lyndsay Rodriguez DO 05/16/2023 10:07 AM Signed [facility], [facility] SERVICE DATE: 05/16/2023 SERVICE TIME: 10:06 AM REASON FOR CONSULT: I am asked to see this patient in consultation for my opinion regarding chronic kidney disease stage III. My recommendations will be communicated by way of shared medical record, fax, or mail. REQUESTING PHYSICIAN: Narciso Duckworth MD PRIMARY CARE PHYSICIAN: Narciso Duckworth MD CHIEF COMPLAINT: Chronic kidney disease stage III HPI: Mr. Lim is a 78 year old male with a Pmhx of primary hypertension, hyperlipidemia, and osteoarthritis, who presents with chronic kidney disease stage III. Last labs in our system from 2019. Creatinine 1.2 at that time. Diclofenac daily at that time. Currently on Diclofenac 25 mg BID. Patient arrived without any labs. Patient states that he was previously following with a coremaking machine operator that went over his labs every visit. States that his renal function was worsening and he was taken off a water pill that improved his renal function. His coremaking machine operator stopped seeing patients in the office and is now only seeing dialysis patients or he is only seeing patients in the hospital. Previously told that he should come off diclofenac. States that when he came off, he was in so much pain he couldn't sleep. Pain is generalized. States that his pain is mostly in his knees. Never told that he had a slow heart rate before. Pulse 43 here. Rechecked manually, he has bradycardia. No symptoms. PAST MEDICAL HISTORY: PAST MEDICAL HISTORY Diagnosis Date Hypercholesteremia Hypertension Peyronie's disease PAST SURGICAL HISTORY: PAST SURGICAL HISTORY Procedure Laterality Date APPENDECTOMY 1999 ruptured, done open OTHER SPECIFIED CASE MGMT Lt. hand lacertion repair PAST SURGICAL HISTORY OF 07/31/09 Penile tunica albuginea plication. PROSTATE SURGERY HX Radiation and seeds FAMILY HISTORY: FAMILY HISTORY Problem Relation Age of Onset Breast Cancer Mother Cancer Maternal Aunt possibly colon cancer SOCIAL HISTORY: Social History Tobacco Use Smoking status: Never Smokeless tobacco: Never Substance Use Topics Alcohol use: Yes Comment: 2 drinks every other day, maybe 3. beer. Drug use: No Comment: denies tx for drug/alcohol abuse in the past. MEDICATIONS: docusate sodium (COLACE) 100 mg capsule Take 1 capsule by mouth twice daily. (Patient not taking: Reported on 10/07/2019 ) aspirin, enteric coated (ASPIRIN, ENTERIC COATED) 81 mg EC tablet Take 1 tablet by mouth twice daily for 14 days. (Patient not taking: Reported on 10/07/2019 ) Lactobac no.41-Bifidobact no.7 (PROBIOTIC-10) 70 mg (3 billion cell) cap Take 1 capsule by mouth once daily. mupirocin (BACTROBAN) 2 % ointment Apply 0.5 inch with cotton swab (Q-tip) to each nostril in the morning and evening for 5 days prior to and including day of surgery. (Patient not taking: Reported on 10/07/2019 ) diclofenac, EC, (VOLTAREN) 25 mg EC tablet Take 25 mg by mouth twice daily. prasterone, dhea, (DHEA) 50 mg tab Take 50 mg by mouth once daily. acetaminophen (TYLENOL EXTRA STRENGTH) 500 mg tablet Take 1,000 mg by mouth as needed. spironolactone (ALDACTONE) 50 mg tablet Take 50 mg by mouth once daily. turmeric-turmeric root extract 450-50 mg cap Take 1 capsule by mouth once daily. Ascorbic Acid (VITAMIN C) 1,000 mg tablet Take 3,000 mg by mouth 3 times a WEEK. MINERALS ORAL Take 1 tablet by mouth once daily. Upzsv-2-HQG-EPA-Fish Oil (FISH OIL) 1,000 mg (120 mg-180 mg) cap Take 1 g by mouth once daily. Lecithin 1,200 mg cap Take 1 capsule by mouth once daily. lovastatin (MEVACOR) 20 mg tablet Take 20 mg by mouth daily at bedtime. multivitamin (MULTIPLE VITAMINS) tablet Take 1 tablet by mouth once daily. Saw [place] 160 mg capsule Take 160 mg by mouth three times daily. vitamin b complex tab Take 1 tablet by mouth once daily. VITAMIN E ACETATE ORAL Take 1,200 mg by mouth twice daily. tamsulosin ER (FLOMAX) 0.4 mg cp24 Take 0.4 mg by mouth once daily. losartan (COZAAR) 100 mg tablet Take 100 mg by mouth once daily. aspirin, enteric coated (ASPIRIN, ENTERIC COATED) 81 mg EC tablet Take 81 mg by mouth once daily. GARLIC ORAL Take 1 tablet by mouth once daily. ALLERGIES: ALLERGIES No Known Allergies REVIEW OF SYSTEMS: Constitutional: No fevers, chills, weight loss Eyes: No loss in vision, photophobia Ear, Nose, and Throat: No epistaxis, nasal congestion Cardiovascular: No chest pain, FLORES, SOB, palpitations Respiratory: No c (more content not included)... Normal [facility] XR KNEE DUSTIN 3 Von 03-15-2023 XR KNEE DUSTIN 3 V EXAM: XR KNEE DUSTIN 3 V HISTORY: Osteoarthritis COMPARISON: None. TECHNIQUE: 3 views FINDINGS: There is no acute fracture or dislocation. There are mild degenerative changes. The soft tissues are unremarkable. IMPRESSION: Mild degenerative changes as above. Electronically authenticated by: KELLY MARSHA Date: 2023-03-15 12:38 Normal [facility] Covid-19 PCR (CVDTB)on 09-15 SARS-CoV-2 (COVID-19) RNA DHARA+probe Ql (Unsp spec) Not detected Normal NOT DETECTED [facility] Comment on above: Result Comment: When diagnostic testing is negative, the possibility of a false negative should be considered in the context of a patient's recent exposures and the presence of clinical signs and symptoms consistent with SARS-CoV-2. This test is not yet approved or cleared by the [place] FDA. When there are no FDA-approved or cleared tests available, and other criteria are met, FDA can make tests available under an emergency access mechanism called an Emergency Use Authorization (EUA). The EUA for this test is supported by the [place] of Health and Human Service's declaration that circumstances exist to justify the emergency use of in vitro diagnostics for the detection and/or diagnosis of the virus that causes COVID-19. This EUA will remain in effect for the duration of the COVID-19 declaration justifying emergency of IVDs, unless it is terminated or revoked by the FDA (after which the test may no longer be used). Performed By: #### C VDTBH ####[facility] [id number] [place], [place] [address]JeDr. Xena Pickard INFLUENZA A AND B AGon 10-03 [facility] SEE BELOW Normal [facility] Comment on above: Result Comment: Nega tive for Flu A protein angiten. Infection due to Flu A cannot be ruled out. Flu A angiten in the sample may be below the detection limit of the test. Performed By: #### I NFLUAB #### [facility] [address] [place], [place] [address] Dr. [facility] Normal [facility] Comment on above: Result Comment: Nega tive for Flu B protein antigen. Infection due to Flu B cannot be ruled out. Flu B antigen in the sample may be below the detection limit of the test. Performed By: #### I NFLUAB #### [facility] [address] [address] [address] Xena Pickard INFLUENZA A AG Negative Normal NEGATIVE SEE COMMENT [facility] Comment on above: Performed By: #### I NFLUAB #### [facility] [address] [address] [address] Xena Pickard INFLUENZA B AG Negative Normal NEGATIVE SEE COMMENT [facility] Comment on above: Performed By: #### I NFLUAB #### [facility] [address] [address] [address] Xena Pickard INTERNAL CONTROLS Within Normal Limits Normal Wi thin Normal Limits [facility] [place] Comment on above: Performed By: #### I NFLUAB #### [facility] [address] [place] [address] Dr. Xena Pickard INSULINon 09-02-2022 Insulin 14.1 uIU/mL Normal 2.6-24.9 [facility] Comment on above: Performed By: #### I NSULIN ####[facility] [id number] [address]Dr. Xena Pickard PTH INTACTon 09-02-2022 PTH, Intact 14 pg/mL Critically low 15-65 [facility] Comment on above: Performed By: #### P THINT #### [facility] [address] [place] [address] Dr. Xena Pickard CBC AUTO DIFFon 09-01-2022 BASO # 0.0 103/ul Normal 0.0-0.1 [facility] Comment on above: Performed By: #### C BC #### [facility] [address] [place] [address] Dr. Xena Pickard Basophils/100 WBC (Bld) 0.6 % Normal 0.2-2.0 [facility] Comment on above: Performed By: #### C BC #### [facility] [address] [place] [address] Dr. Xena Pickard EO # 0.2 103/ul Normal 0.0-0.7 [facility] Comment on above: Performed By: #### C BC #### [facility] [address] [place] [address] Dr. Xena Pickard Eosinophils/100 WBC (Bld) 2.5 % Normal 0.9-7.0 [facility] [place] Comment on above: Performed By: #### C BC #### [facility] [address] [place] [address] Dr. Xena Pickard Erythrocyte distribution width (RBC) [Ratio] 13.5 % Normal 11.0-15.0 [facility] Comment on above: Performed By: #### C BC #### [facility] [address] [place] [address] Dr. Xena Pickard Hematocrit (Bld) [Volume fraction] 38.3 % Critically low 42.0-54.0 [facility] Comment on above: Performed By: #### C BC #### [facility] [address] [place] [address] Dr. Xena Pickard Hemoglobin (Bld) [Mass/Vol] 13.0 g/dL Critically low 14.0-18.0 [facility] Comment on above: Performed By: #### C BC #### [facility] [address] [place] [address] Dr. Xena Pickard IG # 0.03 10e3/ul Normal 0.00-0.03 [facility] [place] Comment on above: Performed By: #### C BC #### [facility] [address] [place] [address] Dr. Xena Pickard IG % 0.4 % Normal 0.0-0.5 [facility] Comment on above: Performed By: #### C BC #### [facility] [address] [place] [address] Dr. Xena Pickard LYMPH # 2.2 103/ul Normal 1.2-3.8 [facility] Comment on above: Performed By: #### C BC #### [facility] [address] [place] [address] Dr. Xena Pickard Lymphocytes/100 WBC (Bld) 31.5 % Normal 20.5-60.0 [facility] Comment on above: Performed By: #### C BC #### [facility] [address] [place] [address] Dr. Xena Pickard MANUAL DIFF REQ NO Normal The [facility] Comment on above: Performed By: #### C BC #### [facility] [address] [place] [address] Dr. Xena Pickard MCH (RBC) [Entitic mass] 30.5 pg Normal 25.9-34.0 [facility] Comment on above: Performed By: #### C BC #### [facility] [address] [place] [address] Dr. Xena Pickard MCHC (RBC) [Mass/Vol] 33.9 g/dL Normal 29.9-35.2 [facility] Comment on above: Performed By: #### C BC #### [facility] [address] [place] [address] Dr. Xena Pickard MCV (RBC) [Entitic vol] 89.9 fL Normal 80.0-94.0 [facility] Comment on above: Performed By: #### C BC #### [facility] [address] [place] [address] Dr. Xena Pickard MONO # 0.6 103/ul Normal 0.3-0.8 [facility] Comment on above: Performed By: #### C BC #### [facility] [address] [place] [address] Dr. Xena Pickard Monocytes/100 WBC (Bld) 8.2 % Normal 1.7-12.0 [facility] Comment on above: Performed By: #### C BC #### [facility] [address] [place] [address] Dr. Xena Pickard NEUT # 4.0 103/ul Normal 1.4-6.5 [facility] Comment on above: Performed By: #### C BC #### [facility] [address] [place] [address] Dr. Xena Pickard Neutrophils/100 WBC (Bld) 56.8 % Normal 43.0-75.0 [facility] Comment on above: Performed By: #### C BC #### [facility] [address] [place] [address] Dr. Xena Pickard Platelet mean volume (Bld) [Entitic vol] 10.2 fL Normal 9.5-13.5 [facility] Comment on above: Performed By: #### C BC #### [facility] [address] [address] [address] Xena Pickard PLT 185 103/ul Normal 150-450 [facility] Comment on above: Performed By: #### C BC #### [facility] [address] [address] [address] Xena Pickard RBC 4.26 106/ul Critically low 4.70-6.10 [facility] Comment on above: Performed By: #### C BC #### [facility] [address] [address] [address] Xena Pickard WBC 7.1 103/ul Normal 4.0-11.0 [facility] Comment on above: Performed By: #### C BC #### [facility] [address] [address] [address] Xena Pickard GLYCOHEMOGLOBIN A1Con 2021 ADA RECOMMENDATION SEE BELOW Normal [facility] Comment on above: Result Comment: ADA RECOMMENDED LIMIT 4.0 - 6.0 ADA THERAPEUTIC TARGET < 7.0 ACTION SUGGESTED > 7.0 Performed By: #### A 1C #### [facility] [address] [place] [address] Dr. Xena Pickard Glucose [Mass/Vol] 120 mg/dL Normal [facility] Comment on above: Performed By: #### A 1C #### [facility] [address] [place] [address] Dr. Xena Pickard HbA1c (Bld) [Mass fraction] 5.8 % Normal 4.5-6.2 [facility] Comment on above: Performed By: #### A 1C #### [facility] [address] [place] [address] Dr. Xena Pickard LIPID PROFILEon 09-01-2022 CHOL-HDL RATIO NORM SEE BELOW Normal [facility] Comment on above: Result Comment: 3.3 - 4.4 LOW RISK 4.4 - 7.1 AVERAGE RISK 7.1 - 11.0 MODERATE RISK >11.0 HIGH RISK Performed By: #### L IPID, URIC, CMP #### [facility] [address] [address] [address] Xena Pickard Cholesterol [Mass/Vol] 166 mg/dL Normal <=200 [facility] Comment on above: Performed By: #### L IPID, URIC, CMP #### [facility] [address] [address] [address] Xena Pickard Cholesterol in HDL [Mass/Vol] 52 mg/dL Normal 40-60 [facility] Comment on above: Performed By: #### L IPID, URIC, CMP #### [facility] [address] [place] [address] Dr. Xena Pickard Cholesterol in LDL [Mass/Vol] 100.8 mg/dL Normal [facility] Comment on above: Performed By: #### L IPID, URIC, CMP #### [facility] [address] [place] [address] Dr. Xena Pickard Cholesterol.total/C holesterol in HDL [Mass ratio] 3.2 {ratio} Normal [facility] Comment on above: Performed By: #### L IPID, URIC, CMP #### [facility] [address] [place] [address] Dr. Xena Pickard HDL NORMAL > or = 60 mg/dl - LO W CARDIOVASCULAR RISK <40 mg/dl - HIGH CARDIOVASCULAR RISK Normal [facility] Comment on above: Performed By: #### L IPID, URIC, CMP #### [facility] [address] [place] [address] Dr. Xena Pickard LDL CALC NORMAL SEE BELOW Normal The [facility] Comment on above: Result Comment: <100 mg/dl OPTIMAL 100 - 129 mg/dl NEAR OR ABOVE OPTIMAL 130 - 159 mg/dl BORDERLINE HIGH 160 - 189 mg/dl HIGH >190 mg/dl VERY HIGH Performed By: #### L IPID, URIC, CMP #### [facility] [address] [place] [address] Dr. Xena Pickard Triglyceride [Mass/Vol] 66 mg/dL Normal <=150 [facility] Comment on above: Performed By: #### L IPID, URIC, CMP #### [facility] [address] [address] [address] Xena Pickard VLDL CALC 13.2 mg/dL Normal [facility] Comment on above: Performed By: #### L IPID, URIC, CMP #### [facility] [address] [address] [address] Xena Pickard PHOSPHORUSon 09-01-2022 Phosphate [Mass/Vol] 3.3 mg/dL Normal 2.6-4.7 [facility] Comment on above: Performed By: #### P HOS ####[facility] [address] [address]Dr. Xena Pickard PROF 14(COMP METB)on 022 Albumin [Mass/Vol] 3.9 g/dL Normal 3.4-5.0 [facility] Comment on above: Performed By: #### L IPID, URIC, CMP #### [facility] [address] [address] [address] Xena Pickard Albumin/Globulin [Mass ratio] 1.2 {ratio} Normal [facility] Comment on above: Performed By: #### L IPID, URIC, CMP #### [facility] [address] [address] [address] Xena Pickard ALP [Catalytic activity/Vol] 44 U/L Critically low 46-116 [facility] Comment on above: Performed By: #### L IPID, URIC, CMP #### [facility] [address] [address] [address] Xena Pickard ALT [Catalytic activity/Vol] 38 U/L Normal 16-63 [facility] Comment on above: Performed By: #### L IPID, URIC, CMP #### [facility] [address] [address] [address] Xena Pickard Anion gap [Moles/Vol] 12.3 mmol/L Normal [facility] Comment on above: Performed By: #### L IPID, URIC, CMP #### [facility] [address] [address] [address] Xena Pickard AST [Catalytic activity/Vol] 16 U/L Normal 15-37 [facility] Comment on above: Performed By: #### L IPID, URIC, CMP #### [facility] [address] [address] [address] Xena Pickard Bilirubin [Mass/Vol] 0.5 mg/dL Normal 0.2-1.0 [facility] Comment on above: Performed By: #### L IPID, URIC, CMP #### [facility] [address] [place] [address] Dr. Xena Pickard Calcium [Mass/Vol] 8.7 mg/dL Normal 8.5-10.1 [facility] Comment on above: Performed By: #### L IPID, URIC, CMP #### [facility] [address] [place] [address] Dr. Xena Pickard Chloride [Moles/Vol] 101 mmol/L Normal 98-107 [facility] Comment on above: Performed By: #### L IPID, URIC, CMP #### [facility] [address] [place] [address] Dr. Xena Pickard CO2 [Moles/Vol] 26.8 mmol/L Normal 21.0-32.0 [facility] Comment on above: Performed By: #### L IPID, URIC, CMP #### [facility] [address] [place] [address] Dr. Xena Pickard Creatinine [Mass/Vol] 1.41 mg/dL Critically high 0.70-1.30 [facility] Comment on above: Performed By: #### L IPID, URIC, CMP #### [facility] [address] [place] [address] Dr. Xena Pickard EGFR-AF MOSOTHO 59 mL/min/1.73m2 Critically low >=60 [facility] Comment on above: Performed By: #### L IPID, URIC, CMP #### [facility] [address] [address] [address] Xena Pickard EGFR-NON AF [place]HO 49 mL/min/1.73m2 Critically low >=60 [facility] Comment on above: Performed By: #### L IPID, URIC, CMP #### [facility] [address] [address] [address] Xena Pickard Globulin (S) [Mass/Vol] 3.3 g/dL Normal [facility] Comment on above: Performed By: #### L IPID, URIC, CMP #### [facility] [address] [address] [address] Xena Pickard Glucose [Mass/Vol] 106 mg/dL Normal 74-106 [facility] Comment on above: Performed By: #### L IPID, URIC, CMP #### [facility] [address] [address] [address] Xena Pickard Potassium [Moles/Vol] 4.1 mmol/L Normal 3.5-5.1 [facility] Comment on above: Performed By: #### L IPID, URIC, CMP #### [facility] [address] [place] [address] Dr. Xena Pickard Protein [Mass/Vol] 7.2 g/dL Normal 6.4-8.2 [facility] Comment on above: Performed By: #### L IPID, URIC, CMP #### [facility] [address] [place] [address] Dr. Xena Pickard Sodium [Moles/Vol] 136 mmol/L Normal 136-145 [facility] Comment on above: Performed By: #### L IPID, URIC, CMP #### [facility] [address] [address] [address] Xena Pickard Urea nitrogen [Mass/Vol] 33.0 mg/dL Critically high 7.0-18.0 [facility] Comment on above: Performed By: #### L IPID, URIC, CMP #### [facility] [address] [place] [address] Dr. Xena Pickard Urea nitrogen/Creatinine [Mass ratio] 23.4 mg/mg Normal [facility] Comment on above: Performed By: #### L IPID, URIC, CMP #### [facility] [address] [place] [address] Dr. Xena Pickard URIC ACID SERUMon 09-01-2022 Urate [Mass/Vol] 5.1 mg/dL Normal 3.5-7.2 [facility] Comment on above: Performed By: #### L IPID, URIC, CMP #### [facility] [address] [place], [place] [address] Dr. Xena Pikcard URINE T PROTEIN CREAT RATIOo n 09-01-2022 UR TOTAL PROTEIN <6.0 Normal <=12.0 [facility] Comment on above: Performed By: #### U RTPCR #### [facility] [address] [place], [place] [address] Dr. Xena Pickard URINE CREAT 36.48 mg/dL Normal 20.00-300.00 [facility] Comment on above: Performed By: #### U RTPCR #### [facility] [address] [address] [address] Xena Pickard CNNURSEon 01-07-2021 [facility] Nurse Visit (COVAMD) AMINA LIM ([id number]) 1945 M Date Time Provider Department 01/07/21 NEIL PIERCE (LORELEI) COVROCCO During your visit today, we recorded the following information about you: Allergies As of Date: 01/07/2021 (No Known Allergies) Date Reviewed: 10/07/2019 Reviewed by: Sharon (Rn) DOLORES Nunn - Fully Assessed Order(s):[employer] SARS-COV-2 VACCINE 2D DOSE APPT [[id number]] Order #: [id number] Prescriptions as of 01/07/2021 Sig: DOCUSATE SODIUM 100 MG CAPSULE Take 1 capsule by mouth twice* Patient not taking: Reported on 10/07/2019 LACTOBACILLUS NO.41-BIFIDOBAC* Take 1 capsule by mouth once * MUPIROCIN 2 % TOPICAL OINTMENT Apply 0.5 inch with cotton sw* Patient not taking: Reported on 10/07/2019 DICLOFENAC SODIUM 25 MG TABLE* Take 25 mg by mouth twice renee* PRASTERONE (DHEA) 50 MG TABLET Take 50 mg by mouth once nikki* ACETAMINOPHEN 500 MG TABLET Take 1,000 mg by mouth as nee* SPIRONOLACTONE 50 MG TABLET Take 50 mg by mouth once nikki* TURMERIC 450 MG-TURMERIC ROOT* Take 1 capsule by mouth once * ASCORBIC ACID (VITAMIN C) 1,0* Take 3,000 mg by mouth 3 time* MINERALS ORAL Take 1 tablet by mouth once d* OMEGA 1-HFJ-HYK-FISH OIL 1,00* Take 1 g by mouth once daily. LECITHIN 1,200 MG CAPSULE Take 1 capsule by mouth once * LOVASTATIN 20 MG TABLET Take 20 mg by mouth daily at * MULTIVITAMIN TABLET Take 1 tablet by mouth once d* SAW PALMETTO 160 MG CAPSULE Take 160 mg by mouth three ti* VITAMIN B COMPLEX TABLET Take 1 tablet by mouth once d* VITAMIN E ACETATE ORAL Take 1,200 mg by mouth twice * TAMSULOSIN 0.4 MG CAPSULE Take 0.4 mg by mouth once renee* LOSARTAN 100 MG TABLET Take 100 mg by mouth once renee* ASPIRIN 81 MG TABLET,DELAYED * Take 81 mg by mouth once nikki* GARLIC ORAL Take 1 tablet by mouth once d* Problem List As Of Date 01/07/2021 Noted Resolved Peyronie's disease [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] 07/08/2009 06/25/2019 Prostate cancer (HCC) [C61] 07/05/2016 06/25/2019 Primary osteoarthritis of left shoulder [M19.01*12/19/2016 06/25/2019 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*03/15/2017 Primary osteoarthritis of right shoulder [M19.0*02/26/2018 Glenohumeral arthritis, right [M19.011] 12/10/2018 Status post replacement of right shoulder joint*12/10/2018 Chronic kidney disease, stage III (moderate) (H*11/18/2017 Essential (primary) hypertension [I10] 08/13/2018 Other hyperlipidemia [E78.49] 08/21/2017 Shoulder pain [M25.519] 07/16/2019 Encounter Status:[facility] Lab Reportson 07-01-2020 Lab Reports [id number] D:127 Normal [facility] Lab Reports [id number] D:127 Normal [facility] Coding Summary.on 11-27-2019 Coding Summary. 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 However, the narrative phrase printed from the coding software may appear abbreviated, or result in slightly different terminology. Coded By: Dominique Jane Date Saved: 11/27/2019 01:03 pm Normal [facility] History and Physicalon 11-26 History and Physical HOSPITAL REGULATIONS: ALL Positive Important Negative Findings Shall Be Recorded DATE ADMITTED: 11/25/2019 The patient is a 74 year old male with a long history of slowly decreasing visual acuity in both eyes. His poor vision has now reached the point he is having difficulty driving at night. Both the patient and I are under the hope and expectation that cataract surgery with lens implantation will make these tasks easier for him in the future. He has been advised of the risks, benefits, complications and alternatives to cataract surgery with lens implantation and he has given informed consent for the procedures. PAST MEDICAL HISTORY: Significant for Tamsulosin usage. CURRENT MEDICATIONS: Lasix, Amlodipine, Losartan, Tamsulosin, Spironolactone. ALLERGIES: No known medical allergies. PHYSICAL EXAMINATION Healthy, alert male, in no distress. Blood pressure of 150/82, pulse of 62, respirations 12. CHEST: Clear. CARDIOVASCULAR: Regular rhythm and rate. BELLY: Soft and non-tender. EXTREMITIES: Clear. EYES: Visual acuity of 20/40 in the right eye, 20/40 in the left eye. This decreases to 20/80 with glare testing. Slit lamp examination remarkable for a 3+ nuclear sclerotic and anterior subcapsular cataract in both eyes. Dilated funduscopic examination reveals a normal optic nerve, retina and vasculature. IMPRESSION: 1. IFIS. 2. Visually significant cataract, both eyes. PLAN: Cataract extraction with lens implantation, right eye utilizing techniques to decrease the risk of cataract complications in IFIS patients. Althea Koroma M.D. lkr Dictated: 11/25/2019 #[id number] Typed 11/25/2019 #[id number] cc: Althea Koroma M.D. [facility] Comment on above: Result Comment: Elec tronically Signed By: Althea Koroma MD\.br\Date and Time Signed: 11/26/19 16:05 EST Main OR Intraoperative Recor don 11-26-2019 Main OR Intraoperative Record IntraOp Document Type FT Summary Primary Physician: Althea Koroma MD Finalized Date/Time: 11/26/19 13:40:27 Pt. Name: AMINA LIM D.O.B./Sex: 1945 Male Med Rec #: [id number] Physician: Althea Koroma MD Financial #: [id number] Pt. Type: A Room/Bed: AS0A/ Admit/Disch: 11/25/19 12:23:56 - 11/25/19 15:20:00 Institution: Case Times FT Entry 1 Patient Times In Room 11/25/19 14:12:00 Out Room 11/25/19 14:44:00 Procedure Times Start 11/25/19 14:22:00 Stop 11/25/19 14:42:00 Anesthesia Times Last Modified By: Estella RN, Cortney SINGH 11/25/19 14:43:21 General Comments: 11/26/2019 Chart opened to review and send charges Anders Clayton BODY ART TECHNICIAN Case Attendance FT Entry 1 Entry 2 Entry 3 Case Attendee Althea Koroma MD, CST, Pattie Denson RN, Yaquelin Rowe Role Performed Surgeon - Primary Scrub - Primary Scrub - Primary Time In 11/25/19 14:12:00 11/25/19 14:12:00 11/25/19 14:12:00 Time Out 11/25/19 14:44:00 11/25/19 14:44:00 11/25/19 14:44:00 Procedure CATARACT EXTRACTION W/ CATARACT EXTRACTION W/ CATARACT EXTRACTION W/ INTRAOCULAR LENS(Right) INTRAOCULAR LENS(Right) INTRAOCULAR LENS(Right) Comments Last Modified By: Estella BERNAL, CNOR, Estella BERNAL, MELIAOR, Estella BERNAL, MELIAORCortney 11/25/19 Cortney 11/25/19 Cortney 11/25/19 14:43:22 14:43:22 14:43:22 Entry 4 Case Attendee Estella BERNAL, Cortney SINGH Role Performed Slurry Tank Tender - Primary Time In 11/25/19 14:12:00 Time Out 11/25/19 14:44:00 Procedure CATARACT EXTRACTION W/ INTRAOCULAR LENS(Right) Comments Last Modified By: Estella BERNAL, Cortney SINGH 11/25/19 14:43:22 Perioperative Protocols FT Pre-Care Text: Implements protective measures prior to operative or invasive procedure, confirms identity before the operative or invasive procedure, verifies operative procedure, surgical site, and laterality Entry 1 Procedure(s) CATARACT EXTRACTION W/ Patient Identity Birthday, ID Band INTRAOCULAR LENS(Right) Verified (select at Check, Patient least 2): Participation Consents / H and P HandP, Surgery/Procedure Operative Site Present Verified Consent Marking Verified Surgical Site Yes Laterality Verified Yes Verified Procedure Verified Yes Correct Patient Yes Position Verified Availability Equipment, Implant, Prep Dry n/a Verified (If Medication Applicable) PreOp Antibiotic No Time Out Althea Koroma MD, Given Participants Sam SANCHEZ, Jarett Stevens RN, Yaquelin Rowe, Estella BERNAL, Cortney SINGH Time Out Complete 11/25/19 14:21:00 Outcomes Met? Yes Last Modified By: SAMANTHA Soria RN, Ruthann 11/25/19 14:22:17 Post-Care Text: The patient is free from signs and symptoms of injury caused by extraneous objects Allergy Information FT Pre-Care Text: Verifies allergies Entry 1 Allergies Reviewed? Yes Allergies Reviewed Self/Patient With Outcomes Met? Yes Last Modified By: SAMANTHA Soria RN, Ruthann 11/25/19 14:01:39 Post-Care Text: The patient received appropriate medication(s) safely administered during the perioperative period Surgical Procedures FT Entry 1 Procedure Description Procedure CATARACT EXTRACTION W/ Modifiers Right INTRAOCULAR LENS IMPLANTATION Surgeon Description CATARACT EXTRACTION RIGHT EYE WITH IOL Primary Procedure Yes Primary Surgeon Althea Koroma MD Start 11/25/19 14:22:00 Stop 11/25/19 14:42:00 Anesthesia Type Local Surgical Service Ophthalmology Wound Class 1 - Clean Last Modified By: SAMANTHA Soria RN, Ruthann 11/25/19 14:43:23 General Case Data FT Pre-Care Text: Classifies surgical wound, implements aseptic technique, initiates traffic control Entry 1 Case Information OR OR 3 FT Case Level Level 2 Wound Class 1 - Clean Specialty Ophthalmology Preop Diagnosis CATARACT RIGHT EYE Postop Same As Preop Yes Postop Diagnosis CATARACT RIGHT EYE Outcomes Met? Yes Last Modified By: SAMANTHA Soria RN, Ruthann 11/25/19 14:01:53 Post-Care Text: The patient is free from signs and symptoms of infection Skin Assessment (Pre Procedure) FT Pre-Care Text: Implements protective measures to prevent skin/ tissue injury due to thermal or mechanical sources Evaluates for signs and symptoms of physical injury to skin and tissue Entry 1 Skin Integrity Intact Skin Abnormality No Outcomes Met? Yes Last Modified By: SAMANTHA Soria RN, Ruthann 11/25/19 14:02:07 Post-Care Text: The patient is free from signs and symptoms of injury caused by extraneous objects Patient Positioning FT Pre-Care Text: Identifies physical alterations that require additional precautions for procedure-specific positioning, verifies presence of prosthetics or corrective devices, positions the patient, evaluates the patient for signs and symptoms of injury as a result of positioning Entry 1 Procedure CATARACT EXTRACTION W/ Additional folded towel under head INTRAOCULAR LENS(Right) Information Body Position Supine Feet Uncrossed? Yes Left Arm Position Resting at Side Right Arm Position Resting at Side Left Leg Position Extended Right Leg Position Extended Positioning Device Safety Strap Press Points Checked Yes By SAMANTHA Soria RN, Outcomes Met? Yes Jarett Barr RN, Karen M, Althea Koroma MD Last Modified By: SAMANTHA Soria RN, Ruthann 11/25/19 14:02:28 Post-Care Text: The patient is free from signs and symptoms of injury related to positioning Patient Care Devices FT Pre-Care Text: Implements protective measures to prevent skin/ tissue injury due to thermal or mechanical sources Entry 1 Entry 2 Entry 3 Equipment Type MICROSCOPE EYE[F] MONITOR CHARGE SURGERY PHACO UNIT[F] [F] Equipment Number Equipment Setting Outcomes Met? Yes Yes Yes Last Modified By: SAMANTHA Soria RN, SAMANTHA Soria RN, SAMANTHA Soria RN, Cortney 11/25/19 Cortney 11/25/19 Cortney 11/25/19 14:02:53 14:02:53 14:02:53 Post-Care Text: The patient is free from signs and symptoms of injury caused by extraneous objects Transport To OR FT Pre-Care Text: Transports according to individual needs. Evaluates for signs and symptoms of skin and tissue injury as a result of transfer or transport Entry 1 Via Cart By SAMANTHA Soria RN, Ruthann Safety Precautions Safety Strap, Side Outcomes Met? Yes Rails Up Last Modified By: SAMANTHA Soria RN, Ruthann 11/25/19 14:03:05 Post-Care Text: The patient is free from signs and symptoms of injury related to transfer/transport Skin Prep FT Pre-Care Text: Performs skin preparations Entry 1 Procedure CATARACT EXTRACTION W/ Prep Area operative site INTRAOCULAR LENS(Right) Prep Agents Betadine Solution, Saline Rinse Hair Removal Methods Not Indicated By Althea Koroma MD Outcomes Met? Yes Last Modified By: SAMANTHA Soria RN, Ruthann 11/25/19 14:03:21 Post-Care Text: The patient is free from signs and symptoms of infection Departure From OR FT Pre-Care Text: Transports according to individual needs. Evaluates for signs and symptoms of skin and tissue injury as a result of transfer or transport. Entry 1 Via Cart Safety Precautions Safety Strap, Side Rails Up PostOp Destination Pre Surgery/ASU Transported By SAMANTHA Soria RN, Ruthann Patient Status Stable Skin. Condition Intact Airway Maintenance Oxygen in Use? No Outcomes Met? Yes Last Modified By: SAMANTHA Soria RN, Ruthann 11/25/19 14:25:06 Post-Care Text: The patient is free from signs and symptoms of injury related to transfer/transport General Comments: report called to asu Dressing/Packing FT Pre-Care Text: Administers care to wound sites Entry 1 Site and Details eye pad and eye shield Outcomes Met? Yes used Last Modified By: SAMANTHA Soria RN, Ruthann 11/25/19 14:25:57 Post-Care Text: The patient is free from signs and symptoms of infection Medication Administration FT Pre-Care Text: Verifies allergies, administers prescribed medications and solutions, administers prescribed antibiotic therapy and immunizing agents as ordered, evaluates response to medications Administers prescribed medications and solutions Entry 1 Expiration Date Yes Outcomes Met? Yes Verified Last Modified By: SAMANTHA Soria RN, Ruthann 11/25/19 14:26:08 Post-Care Text: The patient received appropriate medication(s) safely administered during the perioperative period For [facility] please see scanned medication reconcilliation form for medications used at the field during the procedure. Implant Log FT Pre-Care Text: Records devices implanted during the operative or invasive procedure Entry 1 Procedure CATARACT EXTRACTION W/ Implant/Explant Implant INTRAOCULAR LENS(Right) Implant Identification FT Description HIMANSHU IOL [id number] SOFPORT Lot Number [id number] SIZE 20.5 [[id number] 20.5][F] Derrick Engineer FT-[employer] Catalog ?# [id number] 20.5[F] Expiration Date 01/14/24 Unique Device [id number] Identifier (KATHLEEN) Human Readable {[id number] Machine Readable [id number] Barcode Barcode Usage Data FT Implant Site Eye R Quantity 1 Implanted By Althea Koroma MD Biological Implants MR Classification Unknown Outcomes Met? Yes Last Modified By: SAMANTHA Soria RN, Ruthann 11/25/19 14:28:30 Post-Care Text: The patient is free from signs and symptoms of injury caused by extraneous objects Case Comments Finalized By: Tabitha Clayton CST Document Signatures Signed By: SAMANTHA Soria RN, Ruthann 11/25/19 14:43 Tabitha Clayton CST 11/26/19 13:40 Normal [facility] Operative Reporton 0 Operative Report Date of Surgery: 11/25/2019 SURGEON: Althea Koroma M.D. PREOPERATIVE DIAGNOSES: 1. Cataract, right eye 2. IFIS (intraoperative floppy iris syndrome), right eye POSTOPERATIVE DIAGNOSES: 1. Cataract, right eye 2. IFIS (intraoperative floppy iris syndrome), right eye OPERATION: 1. Phacoemulsification cataract surgery, right eye 2. Manual dilatation of the iris with a Malyugin ring ANESTHESIA: Topical PROCEDURE: The patient was brought to the Operating Room and given topical anesthetic drops and gel to the surface of the globe. A [employer] manometer was positioned and set at 20 mm. Hg. for fifteen minutes. The eye was then prepped and draped in the usual sterile ophthalmic fashion taking meticulous care to ensure that Betadine solution was used to swab the lid margins, lash bases and fornices. A speculum was positioned. A stab incision was made through the cornea at the 2 oclock position with an MVR blade. 1% nonpreserved Lidocaine was then slowly injected into the anterior chamber through a 27 gauge cannula. 1:1,000 Epinephrine, diluted 4:1, approximately 2 cc., was then slowly irrigated into the anterior chamber using a 27 gauge cannula. The anterior chamber was then filled with Healon 5. A 2.65 mm. keratome was used to create a clear cornea incision through the cornea in a biplanar fashion at the 11 oclock position. A Malyugin ring was then introduced into the anterior chamber and positioned in order to grasp the iris margin at the 6 oclock, 3 oclock, 12 oclock and 9 oclock position. Healon 5 was then used to fill the angle structures and hold the ring in position. A 360 degree continuous tear anterior capsulotomy was performed with capsular forceps. Hydrodissection was carried out using Balanced Salt Solution on a 27 gauge cannula. The nucleus was then rotated in the bag. The phacoemulsification unit was then used to sculpt the nucleus in order to crack it into four different quadrants. The phaco unit was advanced to the sector removal mode and the nucleus was removed from the eye at the iris plane using the minimal phaco power possible. The irrigating/aspirating unit was then used to remove the remaining cortical material from the posterior capsule. The capsular bag was polished. The capsular bag was filled with Amvisc. A 20.5 diopter posterior chamber intraocular lens was then introduced into the capsular bag and dialed to bring the haptics to the 3 and 9 oclock position. The Malyugin ring was removed from the eye. The irrigating/aspirating unit was then used to remove the remaining viscoelastic material from the anterior and posterior chamber. Miochol was injected and symmetrical myosis was noted. The corneal incisions were hydrated. The intraoperative pressure was brought up to normal and the incisions were checked and found to be watertight. A minimal amount of aqueous was then drained from the incision and an intraocular injection of antibiotic, moxifloxacin diluted in the pharmacy to the appropriate strength was irrigated into the posterior chamber, just anterior to the intraocular lens. Betadine solution was then used to flush the anterior surface of the globe and this was thoroughly rinsed from the eye with Balanced Salt Solution. Iopidine eye drops and TobraDex ointment were placed into the superior and inferior fornix. A patch and shield were placed over the eye and the patient then returned to the Recovery Room in good condition. Ludwin Estrada Dictated: 11/25/2019 #[id number] Typed: 11/26/2019 #[id number] cc: Althea Koroma M.D. [facility] Comment on above: Result Comment: Elec tronically Signed By: Althea Koroma MD\.br\Date and Time Signed: 11/26/19 16:05 EST Inpatient Patient Summaryon 11-25-2019 Inpatient Patient Summary [address] [address] [facility] Clinical Discharge Instructions PERSON INFORMATION Name: AMINA LIM PHYSICIANS Admitting Physician: Althea Koroma MD Attending Physician: Althea Koroma MD PCP: Narciso Duckworth MD Discharge Diagnosis: Cataract; Floppy iris syndrome Comment: PATIENT EDUCATION INFORMATION Instructions: Medication Leaflets: Follow up: With: Address: When: Althea Koroma [address] [place] [address] [address], [place] [phone] Business (1) Comments: Call physician if symptoms worsen Keep scheduled appointment Type Location Start Finish State URO Office Visit EU Lizette 02/10/2020 9:15 AM 02/10/2020 9:30 AM Confirmed MEDICATION LIST Medications to Continue Taking That Have Changed Other Medications START: aspirin (aspirin 81 mg oral tablet) 1 Tablets By Mouth at bedtime. START: Non-Formulary Medication (Misc Medication) 500 Milligram By Mouth every day. TAURINE. START: Non-Formulary Medication (Misc Medication) 720 Milligram By Mouth every day. TURMERIC. START: Non-Formulary Medication (Probiotic) 4 BILLION By Mouth every day. START: saw palmetto 540 Milligram By Mouth every day. Medications to Continue with No Changes Other Medications ascorbic acid (Vitamin C) 1,000 Milligram By Mouth every day. ascorbic acid/chondroitin/glucos a/marta (Glucosamine Chondroitin) 1TAB By Mouth every day. dehydroepiandrosterone (DHEA) 50 Milligram By Mouth every day. diclofenac 37.5 Milligram By Mouth at bedtime. diclofenac (Diclofenac 75mg Tab-DR) By Mouth every day. ergocalciferol (Vitamin D) 200 International unit By Mouth every day. garlic 500 Milligram By Mouth every day. lecithin (Lecithin-Softgels) 1 CAP By Mouth every day. losartan (losartan 25 mg Tab) 1 Tablets By Mouth every day. lovastatin (lovastatin 20 mg Tab) 1 Tablets By Mouth every day. multivitamin (Vitamin B Complex oral capsule) 1 Capsules By Mouth every day. omega-3 polyunsaturated fatty acids (Fish Oil) 30 Milligram By Mouth every day. spironolactone (spironolactone 25 mg Tab) 1 Tablets By Mouth every day. tamsulosin (tamsulosin 0.4 mg Cap) 1 Capsules By Mouth 2 times a day. Refills: 3. ubiquinone (CoQ10) 30 Milligram By Mouth every day. vitamin E 400 International unit By Mouth every day. Comment: Mimi [facility] Main OR PACU II [facility] Main OR PACU II Record PACU Phase II Document Type FT Summary Primary Physician: Althea Koroma MD Finalized Date/Time: 11/25/19 15:24:08 Pt. Name: AMINA LIMO.B./Sex: 1945 Male Med Rec #: [id number] Physician: Althea Koroma MD Financial #: [id number] Pt. Type: Room/Bed: [place] [address] Admit/Disch: 11/25/19 12:23:56 - 11/25/19 15:20:00 Institution: [facility] Times PACU II FT Pre-Care Text: Identifies barriers to communication and implements measures to provide psychological support and determines knowledge level Develops individualized plan of care, and ensures continuity of care Maintains patient's dignity and privacy, and maintains patient confidentiality Identifies and reports philosophical, cultural, and spiritual beliefs and values Identifies individual values and wishes concerning care administers prescribed antibiotic therapy and immunizing agents as ordered, Evaluates postoperative tissue perfusion Implements thermoregulation measures, and monitors body temperature Evaluates postoperative respiratory status Evaluates postoperative cardiac status Evaluates postoperative neurological status Assesses pain control, collaborated in initiating patient-controlled analgesia and implements alternative methods of pain control Verifies allergies, administers prescribed medications and solutions, evaluates response to medications Entry 1 In PACU II 11/25/19 14:45:00 Discharge from PACU 11/25/19 15:20:00 II Outcomes Met? Yes Last Modified By: Emy Thomas RN 11/25/19 15:24:06 Post-Care Text: The patient demonstrates knowledge of the expected response to the operative or invasive procedure The patient's care is consistent with the individualized perioperative plan of care The patient's right to privacy is maintained The patient's value system, lifestyle, ethnicity, and culture are considered, respected, and incorporated into the perioperative plan of care The patient participates in decisions affecting his or her perioperative plan of care. The patient is free from signs and symptoms of infection The patient has wound/tissue perfusion consistent with or improved from baseline levels established preoperatively The patient is at or returning to normothermia at the conclusion of the immediate postoperative period The patient's respiratory function is consistent with or improved from baseline levels established preoperatively The patient's cardiovascular status is consistent with or improved from baseline levels established preoperatively The patient's neurological status is consistent with or improved from baseline levels established preoperatively The patient demonstrates and/or reports adequate pain control throughout the perioperative period The patient received appropriate medication(s), safely administered during the perioperative period Finalized By: Emy Thomas RN Document Signatures Signed By: Emy Thomas RN 11/25/19 15:24 Normal [facility] Main OR Preoperative Recordo n 11-25-2019 Main OR Preoperative Record Holding Area Document Type FT Summary Primary Physician: Althea Koroma MD Finalized Date/Time: 11/25/19 12:48:49 Pt. Name: AMINA LIM./Sex: 1945 Male Med Rec #: [id number] Physician: Althea Koroma MD Financial #: [id number] Pt. Type: A Room/Bed: 0A/ Admit/Disch: 11/25/19 12:23:56 - Institution: Case Times Holding FT Pre-Care Text: Verifies consent for planned procedure, identifies individual values and wishes concerning care, includes family members in perioperative teaching Secures patient's records' belongings, and valuables, maintains patient's dignity and privacy, and maintains patient confidentiality Entry 1 In Holding 11/25/19 12:25:00 Outcomes Met? Yes Last Modified By: Cynthia James RN 11/25/19 12:47:33 Post-Care Text: The patient participates in decisions affecting his or her perioperative plan of care The patient's right to privacy is maintained Surgery Checklist FT Entry 1 Patient Birthday, ID Band Procedure Surgical Consent, With Identification: Check, Patient Verification: Patient Participation NPO after Midnight: No Date/Time: 11/25/19 08:00:00 Personal Items: Glasses Complaints of Pain: No Operative Site Yes Marked By: CORTEZ BERNAL Marking: Location: RIGHT EYE Does Patient Smoke No Patient states Yes Comment - Adult TANJA- postop adult Supervision supervision available Case Cancelled in No Holding Area see comments below for reason Last Modified By: Cynthia James RN 11/25/19 12:48:44 Finalized By: Cynthia James RN Document Signatures Signed By: Cynthia James RN 11/25/19 12:48 Normal [facility] Patient Education - Texton 0 11-25-2019 Patient Education - Text Normal [facility] Basic Metabolic Panlon 07-17 Anion gap [Moles/Vol] 10 mmol/L Normal 0-15 [facility] Calcium [Mass/Vol] 8.4 mg/dL Low 8.5-10.5 [facility] Chloride [Moles/Vol] 106 mmol/L Normal 98-110 [facility] CO2 [Moles/Vol] 21 mmol/L Low 23-32 [facility] Creatinine [Mass/Vol] 1.23 mg/dL Normal 0.7-1.4 [facility] Glucose [Mass/Vol] 176 mg/dL High 65-100 [facility] Potassium [Moles/Vol] 4.1 mmol/L Normal 3.5-5.0 [facility] Sodium [Moles/Vol] 137 mmol/L Normal 135-146 [facility] Urea nitrogen [Mass/Vol] 22 mg/dL Normal 8-25 [facility] CASE MANAGEMon 07-17-2019 CASE MANAGEM HNO ID: [id number] Author: Nichelle Henao (Sw) Service: ? Author Type: Ad Operations Specialist Type: Care Mgt Progress Note Filed: 07/17/2019 11:06 AM Note Text: CARE MANAGEMENT DISCHARGE NOTE SERVICE DATE: 07/17/2019 SERVICE TIME: 11am LOS: 1 day Admission Date: 07/16/2019 DISCHARGE ARRANGEMENT (list agency and phone number) Home Provider: ortho. CAREGIVER ASSESSMENT: Caregiver is ready, willing and able to meet the patient's needs as recommended by the inter-professional team? Yes Patient's transition needs and plan for meeting these needs: to assist. Does the patient have an acute stroke diagnosis, or has the patient had a stroke during this admission? No HANDOFF COMMUNICATION: will follow with ortho TRANSPORTATION ARRANGEMENTS: ADDITIONAL CONTACT RESOURCES: Needs Prior to Discharge: Ready for Discharge ptient s/p shoulder replacement. Independent prior to admit.. Plans home today. Nursing to provide dc instrucitons. SIGNATURE: WILSON Carcamo PATIENT NAME: Amina Lim DATE: July 17, 2019 TIME: 11:04 AM PAGER/CONTACT #: [phone] Normal [facility]: [id number] Author: Nichelle Henao (Sw) Service: ? Author Type: Ad Operations Specialist Type: Care Mgt Initial Assessment Filed: 07/17/2019 11:04 AM Note Text: CARE MANAGEMENT: ASSESSMENT AND DISCHARGE PLAN SERVICE DATE: 07/17/2019 SERVICE TIME: 11am PRIMARY CARE PHYSICIAN: Narciso Duckworth MD ADMISSION STATUS: Inpatient Needs Prior to Discharge: Ready for Discharge MEDICAL: Patient/Tube Blower Stated Goals: To have reduction in pain To have reduction in symptoms To improve my functional status Health Insurance: MEDICARE A AND B Health Issues Impacting Discharge Plan: none Last Discharge Date: 03/03/17 Is this Within the Past 30 days? No Advance Directive: Current Advance Directive: None Rotary Drum Dyer Attempted to Assist with AD Completion: Yes Action: Education Provided Health Literacy: 1. How often do you need to have someone help you when you read instructions, pamphlets, or other written material from your doctor or pharmacy? Never - 1 2. How confident are you filling out medical forms by yourself? Extremely - 1 If Patient scores > 3 on either question, the following interventions were put into place: Patient did not score > 3 FUNCTIONAL AND COGNITIVE/BEHAVIORAL PRIOR TO ADMISSION: Baseline Mental Status: Alert AND Oriented, Person, Place , Time and Situation Functional Status: Independent Does Patient Currently Receive Any Community Services or Home Care? None Equipment Prior to Admission: None Has the Patient Been in a Halfway Facility in the Past 30 days? No SOCIAL: Living Arrangement: Home Lives With: Spouse Financial Resources: Retired Primary Contact: Extended Emergency Contact Information Primary Emergency Contact: Tanja Lim Address: [address] [place] [address] Mobile Relation: Spouse Supportive: Yes Other Important Patient Contacts: None Caregiver Assessment: Caregiver is ready, willing and able to meet the patient's needs as recommended by the inter-professional team? Yes Patient's transition needs and plan for meeting these needs: Does the patient have an acute stroke diagnosis, or has the patient had a stroke during this admission? No Medication Adherence: I am convinced of the importance of my prescription medication: Agree completely - 0 I worry that my prescription medication will do more harm than good to me Disagree completely - 0 I feel financially burdened by my [id number] expenses for my prescription medication: Disagree completely - 0 Patient is categorized as low risk < 2 Are you interested in bedside delivery of your medications? No Food Concerns: In the Last Month, Have You had Trouble Getting Food? No trouble getting food During the Last Month, Have You Worried Whether Your Food Would Run Out Before You Had Enough Money to Buy More? No Is the Patient Psychosocially Complex? No ASSESSMENT AND PLAN: Medical Needs: 2 or more chronic diseases Psychosocial Needs: None FREEDOM OF CHOICE EXPLAINED: N/A POTENTIAL TRANSITION PLANS Home Met with patient. S/p shoulder surgery. Independent at home with . to assist at dc. Plans home today. No skilled needs SIGNATURE: WILSON Carcamo PATIENT NAME: Amina Lim DATE: July 17, 2019 TIME: 11:02 AM PAGER/CONTACT #: [phone] Normal [facility] CBCon 07-17-2019 Absolute nRBC <0.01 Normal <0.01 [facility] Erythrocyte distribution width (RBC) [Ratio] 13.2 % Normal 11.5-15.0 [facility] Hematocrit (Bld) [Volume fraction] 32.9 % Low 39.0-51.0 [facility] Hemoglobin (Bld) [Mass/Vol] 11.0 g/dL Low 13.0-17.0 [facility] MCH (RBC) [Entitic mass] 30.6 pG Normal 26.0-34.0 [facility] MCHC (RBC) [Mass/Vol] 33.4 g/dL Normal 30.5-36.0 [facility] MCV (RBC) [Entitic vol] 91.6 fL Normal 80.0-100.0 [facility] Platelet mean volume (Bld) [Entitic vol] 10.4 fL Normal 9.0-12.7 [facility] Platelets (Bld) [#/Vol] 188 10*3/uL Normal 150-400 [facility] RBC (Bld) [#/Vol] 3.59 10*6/uL Low 4.20-6.00 [facility] WBC (Bld) [#/Vol] 16.37 10*3/uL High 3.70-11.00 [facility] NURSING PROGon 07-17-2019 NURSING PROG HNO ID: [id number] Author: Prudence JacobsonRn) DOLORES Bowen Service: Nursing Author Type: Registered Nurse Type: Nursing Progress Note Filed: 07/17/2019 1:33 PM Note Text: Nursing Progress Note Patient Name: Amina Lim Patient Location: PR-517/ PR-517-1 Daily Note:.Assumed care of patient, assessment completed, see NPR. Patient resting in bed. Patient denies chest pain, shortness of breath or difficulty breathing. Plan of care discussed, IS encouraged. 1330 Reviewed all discharge instructions with patient. Verbalized understanding, RX given. Pt. educated on use of PRN pain medication during discharge teaching; Side effects of Narcotic medication pamphlet given to patient. Importance of taking medications with food to reduce risk of n/v discussed. Discussed weaning off narcotics in a timely matter and to reach out to the surgeon if pain is not controlled or need for narcotic refills. Timing of medications/strengths and safe doses reviewed on discharge summary. This note was completed by: Prudence Bowen RN [facility] PROGRESSon 07-17-2019 PROGRESS HNO ID: [id number] Author: Sky Echols Service: General Internal Medicine Author Type: Physician Type: Progress Notes Filed: 07/17/2019 8:05 PM Note Text: INPATIENT PROGRESS NOTES Name: Amina Lim Date of Service: July 17, 2019 SUBJECTIVE: Seen and examined at bedside. Patient states he is doing good he's up walking in the room he is voiding well. He has no other complaints. PERTINENT ROS: All others reviewed and negative except as per HPI MEDICATIONS: Current Facility-Administered Medications Medication Dose Route Frequency - losartan 100 mg tab(s) (COZAAR) 100 mg ORAL DAILY - tamsulosin ER 0.4 mg cap(s) (FLOMAX) 0.4 mg ORAL DAILY - spironolactone 50 mg tab(s) (ALDACTONE) 50 mg ORAL DAILY - HYDROmorphone 0.4 mg injection (DILAUDID) 0.4 mg INTRAVENOUS q 4 H PRN - acetaminophen 650 mg tab(s) (TYLENOL) 650 mg ORAL q 6 H PRN - oxyCODONE IR 5-10 mg tab(s) (ROXICODONE) 5-10 mg ORAL q 6 H PRN - ondansetron orally disintegrating 4 mg tab(s) (ZOFRAN ODT) 4 mg ORAL q 6 H PRN Or - ondansetron (PF) 4 mg injection (ZOFRAN) 4 mg INTRAVENOUS q 6 H PRN - metoclopramide HCl 10 mg injection (REGLAN) 10 mg INTRAVENOUS q 6 H PRN - polyethylene glycol 3350 17 g packet (MIRALAX, GLYCOLAX) 17 g ORAL DAILY PRN - bisacodyl EC 10 mg tab(s) (DULCOLAX) 10 mg ORAL DAILY PRN - potassium chloride ER 20-40 mEq tab(s) (K-DUR, KLOR-CON) 20-40 mEq ORAL PRN Or - potassium chloride iv piggyback 20 mEq/100 mL 20 mEq INTRAVENOUS PRN - aspirin, enteric coated 81 mg tab(s) 81 mg ORAL BID - pravastatin 20 mg tab(s) (PRAVACHOL) 20 mg ORAL AT BEDTIME PHYSICAL EXAM: 07/16/19 1954 07/16/19 2307 07/17/19 0401 07/17/19 0732 BP: 154/77 145/67 126/65 156/73 Pulse: 83 70 64 78 Resp: 18 18 18 18 Temp: 37.1 ?C (98.8 ?F) 36.9 ?C (98.4 ?F) 36.7 ?C (98.1 ?F) 36.8 ?C (98.2 ?F) TempSrc: Oral Oral Oral Oral SpO2: 93% 95% 94% 93% Weight: GEN: well appearing, in no acute distress. SKIN: skin color, texture, turgor normal, no suspicious rashes . NECK: no JVD. Supple, LUNGS: Clear DUSTIN. No wheezes. CV: RRR. Normal s1/s2. No murmurs appreciated. ABD: Soft, non-tender, non-distended. Bowel sounds present. EXT: surgical dressing to right shoulder intact, dry, ice to site . No edema. Peripheral pulses present. Calves soft and non-tender bilaterally. Sling in place. Fingers warm and mobile. NEURO: alert oriented x 3 Grossly intact. No focal deficits. DATA: CBC, Coags, BMP, Mg, Phos Recent Labs 07/17/19 0623 WBC 16.37* HB 11.0* HCT 32.9* PLT 188 NA 137 K 4.1 CHLOR 106 CO2 21* BUN 22 CREAT 1.23 GLUC 176* CA 8.4* ASSESSMENT AND PLAN: Leukocytosis[D72.829]: WBC 16.37. Patient is afebrile and does not appear septic. Encouraged strict IS. Postoperative anemia due to acute blood loss [D62]: hgb 11.0. Patient is asx and VSS. Essential (primary) hypertension [I10]: on losartan and spironolactone, blood pressure stable ? Chronic kidney disease, stage III (moderate) (HCC) [N18.3]: bmp stable ? Other hyperlipidemia [E78.49]: Continue on statin ? Hx Prostate cancer: on flomax and DHEA, he states was cleared since 2017 ? Primary osteoarthritis of right shoulder [M19.019], Status post total reverse replacement of right shoulder : with DR Thomas. Continue with PT/OT. Encourage strict IS. Acute postoperative pain of right shoulder [G89.18]: Pain remains controlled . Pain control goals were discussed. Continue with current medications. Control pain with meds ordered . Constipation [K59.00]: continue with bowel regimen while taking pain medications. No complaints DVT ppx: ASA 81mg bid x 14days. SCDs. Ambulation with PT/OT. Case management for dc planning-home when cleared by therapy Discussed and developed plan of care with Dr. Echols. Yeny Walters, LULÚ.DOBBY LOOM WEAVER July 17, 2019 10:36 AM I have seen the patient and verified the exam. I have personally reviewed all labs and imaging results. I have discussed with the SHEET METAL DUCT INSTALLER and I have participated in montelongo components. I agree with the note as documented with additional comments if needed. The assessment and plan as outlined are reflection of our discussion. Sky Echols MD July 17, 2019 [facility] PROGRESS HNO ID: [id number] Author: Rolly Osullivan MD Service: Orthopaedic Surgery Author Type: Resident Type: Progress Notes Filed: 07/17/2019 6:42 AM Note Text: ORTHOPAEDIC SURGERY PROGRESS NOTE Impression/Plan: 74 year old male POD1 s/p R rTSA with Dr. Thomas on 07/16/2019. - DVT prophylaxis: ASA 81mg BID x 2 weeks - Weight Bearing/Activity: Non-weight bearing - PT/OT: 0 - 120 degrees PASSIVE forward flexion even with reverse TSA, 0 degrees external rotation operative shoulder - Precautions: Sling at all times - Regular diet - Perioperative antibiotics Ancef - Pain control PO / IV - Appreciate Medicine comanagement - Case management consult, appreciate assistance - Disposition: Anticipate discharge today Subjective: Pain controlled, no nausea/vomiting, no chest pain, no shortness of breath. Vitals: BP 126/65 Pulse 64 Temp 36.7 ?C (98.1 ?F) (Oral) Resp 18 Wt 92.8 kg (204 lb 9.6 oz) SpO2 94% BMI 28.94 kg/m? Intake/Output Summary (Last 24 hours) at 07/17/2019 0556 Last data filed at 07/17/2019 0200 Gross per 24 hour Intake 3180 ml Output 150 ml Net 3030 ml Physical Examination: General: alert/oriented x3, in no apparent distress RUE: Dressing c/d/i Sling in place Intact and full active and passive flexion and extension at MCP/PIP/DIP joints Intact AIN/PIN/distal ulnar motor Sensation intact to light touch in Median/Ulnar/Radial nerve distribution distally 2+ radial pulse, fingers warm and well perfused Lab: WBC (k/uL) Date Value 06/25/2019 6.22 RBC (m/uL) Date Value 06/25/2019 4.05 (L) Hemoglobin (g/dL) Date Value 06/25/2019 12.4 (L) Hematocrit (%) Date Value 06/25/2019 38.5 (L) MCV (fL) Date Value 06/25/2019 95.1 MCH (pG) Date Value 06/25/2019 30.6 MCHC (g/dL) Date Value 06/25/2019 32.2 RDW-CV (%) Date Value 06/25/2019 14.0 Platelet Count (k/uL) Date Value 06/25/2019 202 MPV (fL) Date Value 06/25/2019 10.5 Glucose (mg/dL) Date Value 06/25/2019 114 (H) BUN (mg/dL) Date Value 06/25/2019 23 Creatinine (mg/dL) Date Value 06/25/2019 1.30 (H) Sodium (mmol/L) Date Value 06/25/2019 140 Potassium (mmol/L) Date Value 06/25/2019 4.2 Chloride (mmol/L) Date Value 06/25/2019 103 CO2 (mmol/L) Date Value 06/25/2019 24 Protein, Total (g/dL) Date Value 07/27/2009 6.8 Albumin (g/dL) Date Value 07/27/2009 4.3 Calcium (mg/dL) Date Value 06/25/2019 9.2 Alkaline Phosphatase (U/L) Date Value 07/27/2009 49 Bilirubin, Total (mg/dL) Date Value 07/27/2009 0.6 AST (U/L) Date Value 07/27/2009 22 ALT (U/L) Date Value 07/27/2009 29 URINALYSIS Specific [place], Ur Date Value Ref Range Status 08/24/2009 1.010 1.005 - 1.030 Glucose, Urine Date Value Ref Range Status 08/24/2009 NEG Neg mg/dL Bilirubin, Urine Date Value Ref Range Status 08/24/2009 NEG Neg Ketones, Urine Date Value Ref Range Status 08/24/2009 NEG Neg Hemoglobin/Blood,Ur Date Value Ref Range Status 08/24/2009 NEG Neg Protein, Urine Date Value Ref Range Status 08/24/2009 NEG Neg mg/dL Urobilinogen, Urine Date Value Ref Range Status 08/24/2009 0.2 Normal (<1.1) EU Leukocytes Date Value Ref Range Status 08/24/2009 NEG Neg -- Rolly Osullivan MD Resident Physician PGY-2 Orthopaedic Surgery [id number] For urgent issues or if after 5:00 PM/weekends, please page [phone]) Normal [facility] THERAPY NTon 07-17-2019 THERAPY NT HNO ID: [id number] Author: Roseanne (Ot) Gregory Service: Occupational Therapy Author Type: Occupational Therapist Type: Therapy (PT/OT/Speech/Resp) Filed: 07/17/2019 3:00 PM Note Text: Occupational Therapy Evaluation SERVICE DATE: 07/17/2019 SERVICE TIME: 50 to 1020 ROOM: [place] [address] Recommended Discharge Disposition: Home Anticipated Discharge Needs: Physical Assist at Home Physical Assist at Home for: Shopping;Transportation ;Meals;Laundry;Cleaning ;Medication Management OT Recommendations to Nursing: OOB for meals OT 6 Clicks Score: 19 Precautions/Activity Restrictions: Weight Bearing Restrictions;Shoulder Precautions Precaution/Activity Restriction Comments: AROM R wrist elbow and hand for 10 reps every 4 hrs Extremity With Weight Bearing Restricted: Right Upper Extremity Right Upper Extremity Weight Bearing Status: NWB Shoulder Precautions: No pendulums;External rotation limitation;Forward elevation limitation Shoulder External Rotation Limited To: 0 degrees Shoulder Forward Elevation Limited To: 0-120 PROM FF R shoulder ASSESSMENT: Patient presents with low complexity assessment, as pt had elective sx of R r TSA, with past history of HTN, CKD, and Peyronie's disease. Patient having undergone orthopedic surgery, will need to have vitals closely monitored for safety. Pt requires skilled OT for instruction promoting independence and safety with self cares and functional mobility/transfers, mindful of weight bearing status and any precautions associated with current surgical procedure. Patient Disposition at Start of Session: Supine in Bed;SCDs;Call [facility] in Reach Patient Disposition at End of Session: Supine in Bed;Call [facility] in Reach;SCDs Tolerated Full Session Occupational Therapy Problem List: Education Deficit;Pain;Safety Deficits;Impaired Self Care;Decreased Skin Integrity;Functional Mobility Impairment Patient /Caregiver Goals: Care For Self Goals for Plan of Care: Able to perform HEP with: Independent Upper Body Bathing with: Independent Upper Body Dressing with: Independent Lower Body Bathing with: Independent Lower Body Dressing with: Independent Chair Transfer with: Modified Independent Toilet Transfer with: Modified Independent Rehab Potential: Good PLAN: Treatment Frequency (times per week): 2 Current admission Treatment Interventions: Education;Self Care / Home Management;Functional Mobility Training;Wound Care Management;Edema Management;Pain Management Plan of Care developed with: Patient TREATMENT INTERVENTIONS: Therapy Diagnosis: Reduced mobility-other;Decrease d activities of daily living (ADL) Interventions Provided: Evaluation;Self Snf Management (22332) $ Evaluation-Low (11688) Billed Units: 1 unit Self Snf Management (34589) Treatment Minutes: 23 2 units Skilled Intervention(s): Education in Provided instruction, cuing and facilitation for upper body dressing; pt instructed to dress surgical arm first during recovery. Pt given tip to use drop arm technique when dressing in order to avoid AROM. Provided instruction, cuing and facilitation for lower body dressing; Pt given tip to wear loose fitting pants in order to make it easier to dress self independently during recovery. Provided instruction, cuing and facilitation for bathing; Pt instructed not to shower for 5 days after surgery and instructed not to shower until there has been no drainage from incision for at least 3 days to decrease risk of infection. Education in: Pt educated on shoulder precautions, no AROM; no pushing, pulling, lifting, or external rotation; NWB on L UE. Pt instructed to wear brace continuously for first 72 hours after surgery and then to remove brace while at home. Pt instructed to always wear brace when sleeping and leaving the home. Pt instructed to keep elbow at side when arm is out of brace and to complete grooming tasks with elbows at sides and to complete activities waist high. Lightweight activities are encouraged in order to decrease risk of adhesion formation. Pt given pain relieving technique of placing pillow under arm while sitting in order to decrease pull of gravity on arm. Pt told that nerve block wears off at fingers first, then elbow, then shoulder. Pt instructed to complete elbow, wrist, and finger exercises every 4 hours, 10 repetitions for each. Pt in supine with call light within reach and nursing notified Will continue education when spouse arrives. Total Timed Code Treatment Minutes: 23 Total Treatment Time (minutes): 30 SUBJECTIVE: Current Hospital Course: Chart reviewed; Pt 74 yo M admitted on 07/16/19 for R r TSA by Dr Thomas. Reason for Occupational Therapy Consult: new functional deficits not expected to spontaneously improve Relevant Past Medical History: HTN, CKD, Peyronie's disease Patient Report: I want to play golf. Home Environment Patient Lives With: Significant Other Assistance Available: 24 Hour Entry To Home: Stairs;With Rail Number Of Stairs Into Home: 2 Number Of Stairs To Bed/Bath: 0 Tub/Shower Type: tub/shower GB chair Laundry: basement/ spouse will do Equipment Owned: Cane;Standard Walker;Crutch(es);Grab Bars-Shower;Shower Chair Prior Functional Level: Within Functional Limits OBJECTIVE: CURRENT FUNCTIONAL STATUS: Current Activities of Daily Living Assist Level Feeding Supervision Grooming Supervision Bathing Upper Body Moderate Assistance Bathing Lower Body Minimal Assistance Dressing Upper Body Moderate Assistance Dressing Lower Body Minimal Assistance Toileting Stand By Assistance Instrumental Activities of Daily Living Assist Level Meal/Beverage Prep Light Cleaning Laundry Medication Management with Strategies Functional Mobility Assist Level Rolling Supine to Sit Supervision Sit to Supine Supervision Scooting Supervision Sit to Stand Supervision Stand to Sit Supervision Bed to Chair Toilet/Commode Functional Mobility Please see discipline specific clinical documentation flowsheet for complete details for this therapy evaluation/treatment. SIGNATURE: SAÚL Chanel/L PATIENT NAME: Amina Lim DATE: July 17, 2019 TIME: 2:46 PM [facility] THERAPY NT HNO ID: [id number] Author: Roseanne Jenkins Service: Occupational Therapy Author Type: Occupational Therapist Type: Therapy (PT/OT/Speech/Resp) Filed: 07/17/2019 3:08 PM Note Text: Occupational Therapy Treatment SERVICE DATE: 07/17/2019 SERVICE TIME: 1155 to 1240 ROOM: [place] [address] Recommended Discharge Disposition: Home Anticipated Discharge Needs: Physical Assist at Home Physical Assist at Home for: Shopping;Transportation ;Meals;Laundry;Cleaning ;Medication Management OT Recommendations to Nursing: OOB for meals OT 6 Clicks Score: 19 Precautions/Activity Restrictions: Weight Bearing Restrictions;Shoulder Precautions Precaution/Activity Restriction Comments: AROM R wrist elbow and hand for 10 reps every 4 hrs Extremity With Weight Bearing Restricted: Right Upper Extremity Right Upper Extremity Weight Bearing Status: NWB Shoulder Precautions: No pendulums;External rotation limitation;Forward elevation limitation Shoulder External Rotation Limited To: 0 degrees Shoulder Forward Elevation Limited To: 0-120 PROM FF R shoulder ASSESSMENT: Patient Disposition at Start of Session: Supine in Bed;Call [facility] in Reach;SCDs;Family Present Patient Disposition at End of Session: OOB in Chair;Call [facility] in Reach;Family Present Tolerated Full Session Occupational Therapy Problem List: Education Deficit;Pain;Safety Deficits;Impaired Self Care;Decreased Skin Integrity;Functional Mobility Impairment Patient /Caregiver Goals: Care For Self Goals for Plan of Care: Able to perform HEP with: Independent Upper Body Bathing with: Independent Upper Body Dressing with: Independent Lower Body Bathing with: Independent Lower Body Dressing with: Independent Chair Transfer with: Modified Independent Toilet Transfer with: Modified Independent Progress Toward Goals: Progressing as expected Rehab Potential: Good PLAN: Treatment Frequency (times per week): 2 Current admission Treatment Interventions: Education;Self Care / Home Management;Functional Mobility Training;Wound Care Management;Edema Management;Pain Management Plan of Care developed with: Patient TREATMENT INTERVENTIONS: Therapy Diagnosis: Reduced mobility-other;Decrease d activities of daily living (ADL) Interventions Provided: Therapeutic Exercise (91802);Self Snf Management (45137) Therapeutic Exercise (26874) Treatment Minutes: 10 1 unit Skilled Intervention(s): Instruction in therapeutic exercise Verbal and tactile cuing provided Facilitation of muscle control, optimal recruitment and alignment Education in PROM shoulder to 90 degrees FF passively and work toward limit of 120 degrees. Spouse able to perform PROM to 90 degrees as well Self Snf Management (22711) Treatment Minutes: 35 2 units Skilled Intervention(s): Education in Pt was taught shoulder precautions and protocol per Dr Thomas. Instructed and educated patient on safety with ambulation and wearing sling. Instructed and educated patient and spouse on: - ADL technique; drop arm, patient able demonstrate with mod A and min cues -Pt min A for LE dressing. Instructed and educated patient on one handed technique for LE dressing. Recommend patient perform dressing in seated position to decrease risk of LOB and falls. - IADLs: encouraged patient to avoid assisting with IADLs until cleared by surgeon, -NWBing status and NO AROM at shoulder, instructed patient on AROM for elbow, wrist and hand to increase circulation to decrease blood clots and edema. - bathing technique and instruction provided to bathe after 5 days, Handout provided - patent not allowed to drive until okayed by MD - instructed patient to wear sling in public and in car for 6 weeks -Pt okay to doff sling and hang and dangle arm at side within home after 72 hours from sx, recommended pt to wear sling if attempting to use surgical arm within home. -instructed on technique on propping up UE on pillow for edema and pain management. - Instructed on proper don/doff technique of shoulder sling and correct positioning, patient able to demonstrated with min A and min cues - discussed ice management for pain and edema management: on 20 min and off for 40 mins. Pt seated with call light within reach, spouse present, and nursing notified Total Timed Code Treatment Minutes: 45 Total Treatment Time (minutes): 45 SUBJECTIVE: Current Hospital Course: Chart reviewed and no significant medical updates relevant to therapy were noted Reason for Occupational Therapy Consult: new functional deficits not expected to spontaneously improve Relevant Past Medical History: HTN, CKD, Peyronie's disease Patient Report: It doesn't hurt. Home Environment Patient Lives With: Significant Other Assistance Available: 24 Hour Entry To Home: Stairs;With Rail Number Of Stairs Into Home: 2 Number Of Stairs To Bed/Bath: 0 Tub/Shower Type: tub/shower GB chair Laundry: basement/ spouse will do Equipment Owned: Cane;Standard Walker;Crutch(es);Grab Bars-Shower;Shower Chair Prior Functional Level: Within Functional Limits OBJECTIVE: CURRENT FUNCTIONAL STATUS: Current Activities of Daily Living Assist Level Feeding Supervision Grooming Supervision Bathing Upper Body Moderate Assistance Bathing Lower Body Minimal Assistance Dressing Upper Body Moderate Assistance Dressing Lower Body Minimal Assistance Toileting Supervision Instrumental Activities of Daily Living Assist Level Meal/Beverage Prep Light Cleaning Laundry Medication Management with Strategies Functional Mobility Assist Level Rolling Supine to Sit Supervision Sit to Supine Supervision Scooting Supervision Sit to Stand Supervision Stand to Sit Supervision Bed to Chair Toilet/Commode Functional Mobility Supervision Please see discipline specific clinical documentation flowsheet for complete details for this therapy evaluation/treatment. SIGNATURE: Roseanne Jenkins OTR/L PATIENT NAME: Amina Lim DATE: July 17, 2019 TIME: 3:04 PM [facility] THERAPY NT HNO ID: [id number] Author: Floresita Ray Service: Physical Therapy Author Type: Physical Therapist Type: Therapy (PT/OT/Speech/Resp) Filed: 07/17/2019 1:21 PM Note Text: PHYSICAL THERAPY MISSED VISIT SERVICE DATE: 07/17/2019 SERVICE TIME: 1320 to 1320 ROOM: [place] [address] (EU OR POST OP) Attempted Evaluation. Patient not seen due to No Skilled Needs. Patient's post op needs can be met by OT. Pt does not have any functional mobility impairment. Will discontinue PT order. SIGNATURE: Floresita Ray, PT PATIENT NAME: Amina Lim DATE: July 17, 2019 TIME: 1:21 PM [facility] ALLIED [facility] 07-16-2019 ALLIED HEALTH HNO ID: [id number] Author: Armen JacobsonRtTaina Redmond Service: Radiology Author Type: Toe Sewer Type: Allied Health Filed: 07/16/2019 3:56 PM Note Text: Radiology Service Progress Note PATIENT NAME: Amina Lim DATE OF SERVICE: July 16, 2019 TIME: 3:56 PM PATIENT IDENTITY VERIFICATION COMPLETED USING TWO (2) METHODS: Name and Date of confirmed by patient verbally and Name and Date of confirmed by identification band. PATIENT GENDER DATA: Male PATIENT RELEVANT IMPLANT DATA REVIEWED: Not Applicable RADIOLOGY DEPARTMENT: General X-ray: Exam(s) Completed: Upper Extremity X-Ray(s): Shoulder, AP / TRUE AP right : PERIPHERAL IV DATA: Not applicable SIGNED BY: RT Elijah July 16, 2019 3:56 PM [facility] HNO ID: [id number] Author: Armen Redmond (Rt) Service: Radiology Author Type: Toe Sewer Type: Allied Health Filed: 07/16/2019 3:47 PM Note Text: Radiology Service Progress Note PATIENT NAME: Amina Lim DATE OF SERVICE: July 16, 2019 TIME: 3:47 PM PATIENT IDENTITY VERIFICATION COMPLETED USING TWO (2) METHODS: Name and Date of confirmed by patient verbally and Name and Date of confirmed by identification band. PATIENT GENDER DATA: Male PATIENT RELEVANT IMPLANT DATA REVIEWED: Not Applicable RADIOLOGY DEPARTMENT: General X-ray: Exam(s) Completed: Upper Extremity X-Ray(s): Shoulder, AP / TRUE AP right : PERIPHERAL IV DATA: Not applicable SIGNED BY: RT Elijah July 16, 2019 3:47 PM [facility] ANES Gerry 07-16-2019 ANES POST HNO ID: [id number] Author: Jordan Desai Service: Anesthesiology Author Type: Anesthesiologist Type: Anesthesia PostOp Filed: 07/16/2019 5:30 PM Note Text: POST ANESTHESIA EVALUATION NOTE SERVICE DATE: 07/16/2019 SERVICE TIME: 5:30 PM : 1945 Vitals: 07/16/19 1050 07/16/19 1519 07/16/19 170 Temp: 36.5 ?C (97.7 ?F) 36.6 ?C (97.9 ?F) 36.5 ?C (97.7 ?F) 07/16/19 16107/16/19 1630 07/16/19 16407/16/19 170 BP: 146/78 141/74 132/72 141/70 07/16/19 1615 07/16/19 1630 07/16/19 16407/16/19 170 Pulse: 62 61 65 71 07/16/19 1615 07/16/19 1630 07/16/19 1645 07/16/19 1706 Resp: 18 16 27 18 07/16/19 1615 07/16/19 1630 07/16/19 1645 07/16/19 1706 SpO2: 94% 94% 93% 96% Validated Vital Signs: Yes POST ANES STATUS: No apparent anesthetic complications. The patient is appropriately hydrated with stable respiratory and cardiovascular status. Patient has safe and adequate airway control. The patient has appropriate pain relief and no significant post operative nausea or vomiting. The patient has achieved baseline mental status. Intra-Operative Events: No Significant Anesthesia Events Further assessment by Anesthesia Service: None Other Remarks: SIGNATURE: Jordan Desai MD PATIENT NAME: Amina Lim DATE: July 16, 2019 TIME: 5:30 PM PAGER/CONTACT #: [phone] [facility] ANES PREOPon 07-16-2019 ANES PREOP HNO ID: [id number] Author: Jordan Desai Service: Anesthesiology Author Type: Anesthesiologist Type: Anesthesia PreOp Filed: 07/16/2019 11:01 AM Note Text: REGIONAL ANESTHESIOLOGY DAY OF SURGERY NOTE PATIENT NAME: Amina Lim 1945 Allergies: ALLERGIES No Known Allergies Procedure(s) (LRB): ARTHROPLASTY TOTAL SHOULDER; W/ GLENOID AND PROXIMAL HUMERAL REPLACEMENT (Right) Surgeon(s): Anshu Thomas Vitals: There were no vitals filed for this visit. Estimated body mass index is 29.85 kg/m? as calculated from the following: Height as of 06/25/19: 179.1 cm (5' 10.5 ). Weight as of 06/25/19: 95.7 kg (211 lb). 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 hand lacertion repair - PAST SURGICAL HISTORY OF 07/31/09 Penile tunica albuginea plication. - PROSTATE SURGERY HX Radiation and seeds FAMILY HISTORY Problem Relation Age of Onset - Breast Cancer Mother - Cancer Maternal Aunt possibly colon cancer Social History: Social History Tobacco Use - Smoking status: Never Smoker - Smokeless tobacco: Never Used Substance Use Topics - Alcohol use: Yes Comment: 2 drinks every other day, maybe 3. beer. - Drug use: No Comment: denies tx for drug/alcohol abuse in the past. Prior to Admission medications as of 06/25/19 1316 Medication Sig Last Dose Taking Lactobac no.41-Bifidobact no.7 (PROBIOTIC-10) 70 mg (3 billion cell) cap Take 1 capsule by mouth once daily. mupirocin (BACTROBAN) 2 % ointment Apply 0.5 inch with cotton swab (Q-tip) to each nostril in the morning and evening for 5 days prior to and including day of surgery. diclofenac, EC, (VOLTAREN) 25 mg EC tablet Take 25 mg by mouth twice daily. prasterone, dhea, (DHEA) 50 mg tab Take 50 mg by mouth once daily. acetaminophen (TYLENOL EXTRA STRENGTH) 500 mg tablet Take 1,000 mg by mouth as needed. spironolactone (ALDACTONE) 50 mg tablet Take 50 mg by mouth once daily. turmeric-turmeric root extract 450-50 mg cap Take 1 capsule by mouth once daily. Ascorbic Acid (VITAMIN C) 1,000 mg tablet Take 3,000 mg by mouth 3 times a WEEK. MINERALS ORAL Take 1 tablet by mouth once daily. Zbwqr-7-ZUR-EPA-Fish Oil (FISH OIL) 1,000 mg (120 mg-180 mg) cap Take 1 g by mouth once daily. Lecithin 1,200 mg cap Take 1 capsule by mouth once daily. lovastatin (MEVACOR) 20 mg tablet Take 20 mg by mouth daily at bedtime. multivitamin (MULTIPLE VITAMINS) tablet Take 1 tablet by mouth once daily. [place] 160 mg capsule Take 160 mg by mouth three times daily. vitamin b complex tab Take 1 tablet by mouth once daily. VITAMIN E ACETATE ORAL Take 1,200 mg by mouth twice daily. tamsulosin ER (FLOMAX) 0.4 mg cp24 Take 0.4 mg by mouth once daily. losartan (COZAAR) 100 mg tablet Take 100 mg by mouth once daily. aspirin, enteric coated (ASPIRIN, ENTERIC COATED) 81 mg EC tablet Take 81 mg by mouth once daily. GARLIC ORAL Take 1 tablet by mouth once daily. Current Facility-Administered Medications Medication Dose Route Frequency Provider Last Rate Last Dose - lactated ringers infusion 5-30 mL/hr INTRAVENOUS CONTINUOUS Mani (Leah Huang II - ceFAZolin iv piggyback 2 g in D5W (iso-osmotic) 100 mL (ANCEF) 2 g INTRAVENOUS Pre-Op Once Mani Huang (Pa) II - acetaminophen 1,000 mg tab(s) (TYLENOL) 1,000 mg ORAL ONCE Mani Huang (Pa) II - midazolam (PF) 2 mg injection (VERSED) 2 mg INTRAVENOUS Pre-Op Once Jordan Desai APTT 28.7 07/27/2009 PT Sec 11.1 07/27/2009 PT INR 1.0 07/27/2009 WBC 6.22 06/25/2019 Hemoglobin 12.4 06/25/2019 Hematocrit 38.5 06/25/2019 Platelet Count 202 06/25/2019 Glucose 114 06/25/2019 BUN 23 06/25/2019 Creatinine (POCT) 1.30 06/25/2019 Sodium 140 06/25/2019 Potassium 4.2 06/25/2019 Chloride 103 06/25/2019 CO2 24 06/25/2019 Protein, Total 6.8 07/27/2009 Albumin 4.3 07/27/2009 Calcium 9.2 06/25/2019 Alkaline Phosphatase 49 07/27/2009 Bilirubin, Total 0.6 07/27/2009 AST 22 07/27/2009 ALT 29 07/27/2009 Adequate NPO status: Yes Anesthetic risks, benefits, alternatives, personnel and consent discussed: Yes Patient agrees to proceed: Yes Previous Anesthesia: no h/o adverse events Airway Assessment: MP 1; Neck ROM: Full ROM without neurologic symptoms; Airway Evaluation: No significant abnormalities and [place] Present Dentition: Teeth intact Symptoms of Sleep Apnea: Yes, on CPAP Blood Products: Will accept Blood/Blood Products. Anesthetic Plan: General; Standard ASA Monitors Pain Management Plan: Parenteral or Oral and Peripheral Nerve Block ASA Class: 2 Other Medical Problems: See HANDP Medications taken today: Per Chart Review Chronic Beta Igor medication administered within 24 hours: N/A I have interviewed and examined the patient. I have reviewed the medical record and/or the pre-anesthesia evaluation, pertinent labs, and test results. Significant changes in the patient's condition since the History and Physical, not otherwise documented in primary service progress notes: No This contains updated information obtained within 48 hours of Surgery/Procedure. SIGNATURE: Jordan Desai MD DATE: July 16, 2019 TIME: 10:51 AM [facility] CONSULTon 07-16-2019 CONSULT HNO ID: [id number] Author: Yeny Walters Service: General Internal Medicine Author Type: Nurse Practitioner Type: Consults Filed: 07/17/2019 2:45 PM Note Text: HISTORY AND PHYSICAL EXAMINATION PATIENT NAME: Amina Lim SERVICE DATE: 07/16/2019 SERVICE TIME: 545pm PRIMARY CARE PHYSICIAN: Narciso Duckworth MD REASON FOR CONSULT: Perioperative managment CHIEF COMPLAINT: S/p Right reverse Total Shoulder Arthroplasty HPI: This is a 74 year old male with history of pyronies disease, HTN, hypercholesterolemia, CLARENCE, prostate cancer, who presents with complaints of worsening right shoulder pain. He has had pain for 2 1/2 years and had limited ROM. He stated left shoulder hurt worse so he had that one repaired first. He had CT scan showed advanced glenohumeral OA. He was evaluated by DR Thomas and underwent Right reverse Total Shoulder Arthroplasty. He is laying in bed states no pain or any other complaints. PAST MEDICAL HISTORY: PAST MEDICAL HISTORY Diagnosis Date - Hypercholesteremia - Hypertension - Peyronie's disease PAST SURGICAL HISTORY: PAST SURGICAL HISTORY Procedure Laterality Date - APPENDECTOMY 1999 ruptured, done open - OTHER SPECIFIED CASE MGMT Lt. hand lacertion repair - PAST SURGICAL HISTORY OF 07/31/09 Penile tunica albuginea plication. - PROSTATE SURGERY HX Radiation and seeds FAMILY HISTORY: FAMILY HISTORY Problem Relation Age of Onset - Breast Cancer Mother - Cancer Maternal Aunt possibly colon cancer SOCIAL HISTORY: Social History Tobacco Use - Smoking status: Never Smoker - Smokeless tobacco: Never Used Substance Use Topics - Alcohol use: Yes Comment: 2 drinks every other day, maybe 3. beer. - Drug use: No Comment: denies tx for drug/alcohol abuse in the past. MEDICATIONS: Prior to Admission Medications Medications Prior to Admission: Lactobac no.41-Bifidobact no.7 (PROBIOTIC-10) 70 mg (3 billion cell) cap Take 1 capsule by mouth once daily. Disp: Rfl: 07/05/2019 mupirocin (BACTROBAN) 2 % ointment Apply 0.5 inch with cotton swab (Q-tip) to each nostril in the morning and evening for 5 days prior to and including day of surgery. Disp: 22 g Rfl: 0 diclofenac, EC, (VOLTAREN) 25 mg EC tablet Take 25 mg by mouth twice daily. Disp: Rfl: 07/05/2019 prasterone, dhea, (DHEA) 50 mg tab Take 50 mg by mouth once daily. Disp: Rfl: 07/05/2019 acetaminophen (TYLENOL EXTRA STRENGTH) 500 mg tablet Take 1,000 mg by mouth as needed. Disp: Rfl: 07/15/2019 at 2100 spironolactone (ALDACTONE) 50 mg tablet Take 50 mg by mouth once daily. Disp: Rfl: 07/15/2019 at 0800 turmeric-turmeric root extract 450-50 mg cap Take 1 capsule by mouth once daily. Disp: Rfl: 07/05/2019 Ascorbic Acid (VITAMIN C) 1,000 mg tablet Take 3,000 mg by mouth 3 times a WEEK. Disp: Rfl: 07/05/2019 MINERALS ORAL Take 1 tablet by mouth once daily. Disp: Rfl: 07/05/2019 Lmrln-0-EZS-EPA-Fish Oil (FISH OIL) 1,000 mg (120 mg-180 mg) cap Take 1 g by mouth once daily. Disp: Rfl: 07/05/2019 Lecithin 1,200 mg cap Take 1 capsule by mouth once daily. Disp: Rfl: 07/05/2019 lovastatin (MEVACOR) 20 mg tablet Take 20 mg by mouth daily at bedtime. Disp: Rfl: 07/15/2019 at 2100 multivitamin (MULTIPLE VITAMINS) tablet Take 1 tablet by mouth once daily. Disp: Rfl: 07/05/2019 Saw [place] 160 mg capsule Take 160 mg by mouth three times daily. Disp: Rfl: 07/05/2019 vitamin b complex tab Take 1 tablet by mouth once daily. Disp: Rfl: 07/05/2019 VITAMIN E ACETATE ORAL Take 1,200 mg by mouth twice daily. Disp: Rfl: 07/05/2019 tamsulosin ER (FLOMAX) 0.4 mg cp24 Take 0.4 mg by mouth once daily. Disp: Rfl: 07/15/2019 at 2100 losartan (COZAAR) 100 mg tablet Take 100 mg by mouth once daily. Disp: Rfl: 07/14/2019 at 0800 aspirin, enteric coated (ASPIRIN, ENTERIC COATED) 81 mg EC tablet Take 81 mg by mouth once daily. Disp: Rfl: 07/05/2019 GARLIC ORAL Take 1 tablet by mouth once daily. Disp: Rfl: 07/05/2019 In-Patient Medications Current Facility-Administered Medications Medication Dose Route Frequency - prasterone (dhea) tab 50 mg (DHEA) 50 mg ORAL DAILY - losartan 100 mg tab(s) (COZAAR) 100 mg ORAL DAILY - tamsulosin ER 0.4 mg cap(s) (FLOMAX) 0.4 mg ORAL DAILY - spironolactone 50 mg tab(s) (ALDACTONE) 50 mg ORAL DAILY - ceFAZolin iv piggyback 2 g in D5W (iso-osmotic) 100 mL (ANCEF) 2 g INTRAVENOUS q 8 HR - lactated ringers infusion 75 mL/hr INTRAVENOUS CONTINUOUS - HYDROmorphone 0.4 mg injection (DILAUDID) 0.4 mg INTRAVENOUS q 4 H PRN - acetaminophen 650 mg tab(s) (TYLENOL) 650 mg ORAL q 6 H PRN - oxyCODONE IR 5-10 mg tab(s) (ROXICODONE) 5-10 mg ORAL q 6 H PRN - ondansetron orally disintegrating 4 mg tab(s) (ZOFRAN ODT) 4 mg ORAL q 6 H PRN Or - ondansetron (PF) 4 mg injection (ZOFRAN) 4 mg INTRAVENOUS q 6 H PRN - metoclopramide HCl 10 mg injection (REGLAN) 10 mg INTRAVENOUS q 6 H PRN - polyethylene glycol 3350 17 g packet (MIRALAX, GLYCOLAX) 17 g ORAL DAILY PRN - bisacodyl EC 10 mg tab(s) (DULCOLAX) 10 mg ORAL DAILY PRN - potassium chloride ER 20-40 mEq tab(s) (K-DUR, KLOR-CON) 20-40 mEq ORAL PRN Or - potassium chloride iv piggyback 20 mEq/100 mL 20 mEq INTRAVENOUS PRN - [START ON 07/17/2019] aspirin, enteric coated 81 mg tab(s) 81 mg ORAL BID - clarification of order pending ORAL q 4 H - pravastatin 20 mg tab(s) (PRAVACHOL) 20 mg ORAL AT BEDTIME ALLERGIES: ALLERGIES No Known Allergies COMPLETE REVIEW OF SYSTEMS: GENERAL: No weight loss, malaise or fevers. HEENT: Negative for significant vision problems, hearing loss, hoarseness RESPIRATORY: Negative for cough, wheezing or shortness of breath. CARDIOVASCULAR: Negative for leg swelling, palpitations, orthopnea GI: Negative for abdominal discomfort, change in bowel habit, diarrhea, nausea, vomiting NEURO: Negative for headaches, syncope, paralysis, seizures or tremors. All other reviewed and negative other than HPI. PHYSICAL EXAM: 07/16/19 1615 07/16/19 1630 07/16/19 1645 07/16/19 1706 BP: 146/78 141/74 132/72 141/70 Pulse: 62 61 65 71 Resp: 18 16 27 18 Temp: 36.5 ?C (97.7 ?F) TempSrc: Oral SpO2: 94% 94% 93% 96% Weight: GEN: well appearing, in no acute distress. SKIN: skin color, texture, turgor normal. No rash. HEENT: no tenderness. PERRL. EOMI. Buccal mucosa moist. NECK: Supple, no adenopathy, no JVD. LUNGS: Clear DUSTIN. No wheezes. CV: RRR. Normal s1/s2. No murmurs appreciated. ABD: Soft, non-tender, non-distended. Bowel sounds present x 4. EXT: surgical dressing to right shoulder intact, dry, ice to site . No edema. Peripheral pulses present. Calves soft and non-tender bilaterally. Sling in place. Fingers warm and mobile. NEURO: AANDOx 3. Grossly intact. No focal deficits. DATA: No new labs ASSESSMENT AND PLAN: Essential (primary) hypertension [I10]: on losartan and spironolactone Chronic kidney disease, stage III (moderate) (HCC) [N18.3]: bmp in am Other hyperlipidemia [E78.49]: on statin Hx Prostate cancer: on flomax and DHEA, he states was cleared since 2017 Primary osteoarthritis of right shoulder [M19.019], Status post total reverse replacement of right shoulder : with DR Thomas. Continue with PT/OT. Encourage strict IS. Acute postoperative pain of right shoulder [G89.18]: Pain controlled see HPI. Pain control goals were discussed. Continue with current medications. Control pain with meds ordered . Constipation [K59.00]: continue with bowel regimen while taking pain medications. DVT ppx: ASA 81mg bid x 14days. SCDs. Ambulation with PT/OT. CBC and BMP daily. Case management for dc planning. Discussed common complications and risks with the patient including fever, blood clots, constipation, pain, nausea/vomiting and infection. Encouraged use of incentive spirometer. Above was discussed and plan of care was developed with Dr. Echols. Please see additional comments and addendum. Thank you for allowing us to participate in the care of your patient. Yeny Walters APRN.DOBBY LOOM WEAVER July 16, 2019 5:46 PM Normal [facility] OPERATIVE NOon 07-16-2019 OPERATIVE NO HNO ID: [id number] Author: Anshu Thomas Service: Orthopaedic Surgery Author Type: Physician Type: Operative Report Filed: 07/16/2019 3:21 PM Note Text: [place] [id number] [place] OPERATIVE REPORT NAME: [facility] #: [id number] DATE: 07/16/2019 (1:12pm-3:12pm) AGE: 74 SURGEON 1: Anshu Thomas M.D. PRINT DEVELOPER: 1. Brain Kay M.D. 2. Rolly Osullivan M.D. OPERATION: Right reverse total shoulder arthroplasty, biceps tenodesis. ANESTHESIA: General anesthesia with regional interscalene nerve block for postoperative pain control. PREOPERATIVE DIAGNOSIS: Right shoulder primary glenohumeral osteoarthritis with advanced central glenoid bone loss. POSTOPERATIVE DIAGNOSIS: Right shoulder primary glenohumeral osteoarthritis with advanced central glenoid bone loss, biceps tendinopathy. OPERATIVE INDICATIONS: The patient is a 74 year [id number] right-hand dominant white male who has a history of chronic right shoulder pain from a diagnosis of glenohumeral arthritis. He has developed progressively worsening arthritic symptoms, including pain and loss of motion. Recent CT showed evidence of advanced central glenoid wear. Due to the failure of nonoperative management, discussion was had about surgical interventions. He was deemed a candidate for right total shoulder arthroplasty. The risks and benefits of the surgery, as well as the expected postoperative course were discussed with the patient at length. Based on the amount of glenoid bone loss, the decision was made to proceed with reverse total shoulder arthroplasty. OPERATIVE FINDINGS: There were arthritic changes of the glenohumeral joint on both the humeral and glenoid side, with extensive osteophyte formation along the humeral head. The subscapularis and superior and posterior rotator cuff were found to be intact intraoperatively. OPERATIVE PROCEDURE: On the day of surgery, the patient was seen in the preoperative area. The planned surgical procedure and the correct surgical site were again reviewed with the patient and the right upper extremity was marked. Prior to being taken back to the operating room, the patient did receive an interscalene nerve block in his right upper extremity for postoperative pain control. Preoperative antibiotics were given. The patient was then taken back to the operating room and intubated without complications. He was placed in the beach chair position, and the right upper extremity was prepped and draped in the usual sterile fashion. A standard 10-15 cm deltopectoral incision was made along the anterior aspect of the right shoulder. The incision was carried sharply down to the level of the deep fascia. The cephalic vein was identified and taken laterally with the deltoid, while the pectoralis major was taken medially, and dissection was taken through the deltopectoral interval. The upper 1-1.5 cm of the pectoralis major tendon was released from its attachment site on the humerus for greater exposure. The subdeltoid and subacromial spaces were developed deeply. The interval between the conjoined and subscapularis tendons was next developed up to the coracoacromial ligament, but this was not taken. Digital palpation was used to verify the integrity of the axillary nerve, which was protected throughout the procedure. The conjoint tendon was then retracted with the self-retaining retractor medially to expose the subscapularis tendon deep to this. The anterior humeral circumflex vessels were clamped and coagulated. The biceps sheath and rotator interval were then opened up. The long head of the biceps tendon showed advanced degenerative changes proximally consistent with tendinopathy. Therefore, the tendon was tenodesed to the upper border of the pectoralis major tendon insertion. The degenerative, more proximal remaining portion of the tendon was then excised up to its origin at the superior aspect of the glenoid. The bicipital groove was then further cleaned of soft tissue to better expose the lesser tuberosity and subscapularis insertion. The subscapularis and anterior capsule were then taken down in one sleeve of tissue subperiosteally off of the lesser tuberosity. The tissue was released down to the 6 o'clock position on the anatomic neck of the humeral head to allow delivery of the humeral head into the wound with simultaneous adduction, extension, and external rotation. With the humeral head dislocated and exposed, the articular surface showed advanced degenerative changes. The rotator cuff was inspected and the posterior and superior rotator cuff were completely intact. All humeral osteophytes were removed along the anatomic neck. We then marked the anatomic neck with an extra-articular cutting guide with a fixed neck-shaft angle of 135 degrees. The humeral head cut was made along this marked site going anteriorly to posteriorly, making sure to exit posteriorly just above the reflection of the rotator cuff. The humeral cut was made in approximately 30 degrees of retroversion. We did not finish the humerus at this point. We then brought the shoulder into an abducted, extended, and externally rotated position for exposure of the glenoid. The humerus was retracted posteriorly with a Fukuda retractor. The capsule was released anteriorly from the labrum initially and anterior glenoid retractors were then placed. The anteroinferior capsule was excised. The remaining capsule was then circumferentially released from the glenoid rim and labrum. Care was taken to adequately release the capsule inferiorly for adequate exposure of the inferior glenoid rim. Part of the triceps origin was released inferiorly as part of this exposure. Following this, the labrum was excised circumferentially to completely expose the glenoid rim. The glenoid did show evidence of advanced central wear. Due to the degree of central bone loss, the decision was made to place a reverse total shoulder arthroplasty. We drilled the central drill hole in an inferior position on the glenoid, centered in the midline. The drill hole was then tapped and the cannulated reamer was brought in over the tap and reamed the glenoid just to the start of bleeding bone. The glenoid baseplate (DJO AltiVate Reverse) was then opened up and screwed into the glenoid until it was seated flush on bone. The locking screw guide was then placed on the baseplate, and the four locking screw holes were drilled. The inferior and superior locking screws were placed first, and measured 26 mm and 22 mm, respectively. The anterior and posterior locking screws were placed next, and measured 18 mm and 26 mm, respectively. All screws were tightened until fully locked. Manually reaming was then performed around the baseplate. A 36 mm, neutral glenosphere (DJO AltiVate Reverse) was placed over the baseplate and secured and then the proximal humerus was redelivered into the wound with adduction, extension, and external rotation. The cut surface of the humerus was then prepared. The proximal humerus was reamed using the reamer. A 6-mm entry reamer was then placed into the humeral intramedullary canal. The canal was reamed up to a size 12 mm reamer and then broached. The trial size #12 humeral implant was then placed, again making sure to place the implant in approximately 30 degrees of retroversion. We placed trial liners into the implant and reduced the shoulder to determine the best fit. The +4 mm polyethylene liner showed the best soft tissue tensioning, with no significant areas of impingement, including inferiorly with adduction. The humerus was, therefore, redislocated and the decision was made to proceed with a +4 mm liner. An uncemented #12 stem and a +4 mm polyethylene liner were opened (DJO AltiVate Reverse). Prior to placing the humeral stem, drilled holes were made along the cut surface of the humerus anteriorly for passage of sutures for the subscapularis repair. Three, #2 Fiberwire sutures were then passed in a horizontal mattress fashion through these drill holes on the cut surface. We then impacted the final humeral prosthesis (DJO AltiVate Reverse) into the humeral canal. Once the stem was securely impacted, the +4 mm polyethylene liner was impacted into the humeral implant. The shoulder was then reduced, and the wound was copiously irrigated. The subscapularis tendon was then repaired back to the cut surface of the humerus. Each of the #2 Fiberwire sutures were passed through the tendon edge in a horizontal mattress fashion and sequentially tied down to reduce the tendon edge back to the cut surface of the humerus. The lateral rotator interval was closed with a #2 Ticron suture passed in a [id number]-ez-lipfr fashion. Following this, all retractors were removed, and digital palpation was again used to confirm the integrity of the axillary nerve. The wound was again thoroughly irrigated. A total of 5 L of pulse irrigation was used throughout the case. The deltopectoral interval was loosely closed with interrupted #1 Vicryl stitches. The subcutaneous layer was then closed with interrupted 2-0 Vicryl stitches. A running subcuticular 3-0 Prolene suture was then used to close the skin. Steri-Strips were placed over the incision site, and the wound was sterilely dressed with Adaptic, 4x4 gauze, ABD dressing, and Foam tape. The shoulder was then placed in an abduction sling. The patient was awoken without complication and extubated. He was transferred to the PACU in stable condition. Closing of the incision was performed by Brain Kay M.D., and Rolly Osullivan M.D., with the primary surgeon (Anshu Thomsa M.D.) readily available. The remainder of the procedure, including all critical elements, was completed by the primary surgeon (Anshu Thomas M.D.) with assistance from Brain Kay M.D., and Rolly Osullivan M.D. ESTIMATED BLOOD LOSS: 150 cc DRAINS: none SPECIMENS: none COMPLICATIONS: none apparent Anshu Thomas M.D. [facility] XR SHOULDER SPECIFY 1V RTon 07-16-2019 XR SHOULDER SPECIFY 1V RT * * *Final Report* * * DATE OF EXAM: Jul 16 2019 3:46PM [id number] [id number] - XR SHOULDER SPECIFY 1V RT / PROCEDURE REASON: Post-operative / post-procedure assessment, asymptomatic * * * * Physician Interpretation * * * * RESULT: EXAMINATION: XR SHOULDER SPECIFY 1V RT CLINICAL HISTORY: post op right shoulder Technique: XR SHOULDER SPECIFY 1V RT --right shoulder with 1 views on 1 images Comparison: 12/10/2018 RESULT: Patient is status post reverse right shoulder total arthroplasty. The orthopedic hardware is intact. No acute fracture. Associated soft tissue changes are compatible with recent surgical procedure. IMPRESSION: Status post reverse right shoulder arthroplasty. Transcribed Using Voice Recognition Transcribe Date/Time: Jul 16 2019 3:55P Dictated by: ROBBIN GOFF MD This examination was interpreted and the report reviewed and electronically signed by: ROBBIN GOFF MD on Jul 16 2019 3:57PM EST [id number] [facility] NURSING PROGon 06-27-2019 NURSING PROG HNO ID: [id number] Author: Norma (Rn) Kyree RN Service: Nursing Author Type: Registered Nurse Type: Nursing Progress Note Filed: 07/15/2019 8:39 AM Note Text: PACC Nurse Progress Note History AND Physical: PACC Visit Date: 06/25/19 Original HANDP Date: N/A ED visit Date: N/A Outside HANDP Scanned Date: N/A Labs Within Last 6 Months: 06/25/19 CBC RBC 4.05 H/H 12.4/38.5 06/25/19 BMP glucose 114 06/25/19 TANDS 30 day in [facility] 03/14/17 [place] Imaging Within Last 12 Months: 06/25/19 ct shoulder in [facility] 12/13/18 xr shoulder 3v Cardiac Testin06/25/19 prelim ekg in [facility] Last Menstrual Period: NA BMI Percentile (PEDS): N/A Risk Assessment: N/A Anesthesia Review: N/A Narrative: N/A Pre-op Considerations: PER [facility] HX CLARENCE- CPAP at night History of Prostate CA with Radiation and insertion of Seeds CKD follows with Nephrology Chart Check: IN PROGRESS NEED FINAL EKG Marialuisa Cates RN June 27, 2019 1:24 PM --- July 15, 2019 8:38 AM Final EKG from 06/25/19--Sinus allegra (57bpm) Norma Adorno RN Normal [facility] Type and SCR (30D)on 019 ABO/RH(D) Positive Normal [facility] HOSPon 12-13-2018 HOSP Patient:Amina Lim MRN: Height:5' 10.5 (1.791 m) Weight:211 lb (95.709 kg) Outpatient Medications as of 07/16/19: Lactobac no.41-Bifidobact no.7 (PROBIOTIC-10) 70 mg (3 billion cell) cap mupirocin (BACTROBAN) 2 % ointment diclofenac, EC, (VOLTAREN) 25 mg EC tablet prasterone, dhea, (DHEA) 50 mg tab acetaminophen (TYLENOL EXTRA STRENGTH) 500 mg tablet spironolactone (ALDACTONE) 50 mg tablet turmeric-turmeric root extract 450-50 mg cap Ascorbic Acid (VITAMIN C) 1,000 mg tablet MINERALS ORAL Cedqu-9-VMQ-EPA-Fish Oil (FISH OIL) 1,000 mg (120 mg-180 mg) cap Lecithin 1,200 mg cap lovastatin (MEVACOR) 20 mg tablet multivitamin (MULTIPLE VITAMINS) tablet Saw [place] 160 mg capsule vitamin b complex tab VITAMIN E ACETATE ORAL tamsulosin ER (FLOMAX) 0.4 mg cp24 losartan (COZAAR) 100 mg tablet aspirin, enteric coated (ASPIRIN, ENTERIC COATED) 81 mg EC tablet GARLIC ORAL Admission/Clinic Administered Medications as of 07/16/19: lactated ringers infusion ceFAZolin iv piggyback 2 g in D5W (iso-osmotic) 100 mL (ANCEF) Problem List: 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 [M19.011] Glenohumeral arthritis, right [M19.011] 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] Chronic kidney disease, stage III (moderate) (HCC) [N18.3] Essential (primary) hypertension [I10] Other hyperlipidemia [E78.49] Allergies: No Known Allergies Date Verified:07/16/19 Lab Values Lab Value Units Date High Low POTA* 4.2 mmol/L 06/25/2019 5.1 3.7 GREG* 38.5 % 06/25/2019 51.0 39.0 No progress notes entered within the past 30 days [facility] XR SHLDR >/=3V AP/RADHA AP/OTH R LTon 12-10-2018 XR SHLDR >/=3V AP/RADHA AP/OTHR LT * * *Final Report* * * DATE OF EXAM: Dec 10 2018 8:37AM [id number] [id number] - XR SHLDR >/=3V AP/RADHA AP/OTHR LT / PROCEDURE REASON: multiple diagnoses * * * * Physician Interpretation * * * * RESULT: EXAMINATION / TECHNIQUE: XR SHLDR >/=3V AP/RADHA AP/OTHR LT HISTORY: S/P LT TSR X 1 YR. PT C/O RT SHOULDER. Status post reverse total replacement of left shoulder Primary osteoarthritis of right shoulder . COMPARISON: 02/26/2018 RESULT: There is a reverse total shoulder arthroplasty in normal alignment. There is no periimplant fracture or lucency. Mild degenerative change at the acromioclavicular joint. IMPRESSION: Stable exam. Transcribed Using Voice Recognition Transcribe Date/Time: Dec 10 2018 9:42A Dictated by: PREET RAMIREZ MD This examination was interpreted and the report reviewed and electronically signed by: PREET RAMIREZ MD on Dec 10 2018 9:43AM EST [id number] [facility] XR SHLDR >/=3V AP/RADHA AP/OTH R RTon 12-10-2018 XR SHLDR >/=3V AP/RADHA AP/OTHR RT * * *Final Report* * * DATE OF EXAM: Dec 10 2018 8:37AM HMX [id number] - XR SHLDR >/=3V AP/RADHA AP/OTHR RT / PROCEDURE REASON: multiple diagnoses * * * * Physician Interpretation * * * * RESULT: EXAMINATION / TECHNIQUE: XR SHLDR >/=3V AP/RADHA AP/OTHR RT HISTORY: Status post reverse total replacement of left shoulder Primary osteoarthritis of right shoulder . RESULT: There is advanced degenerative change of the glenohumeral joint with complete loss of joint space, subchondral changes, and osteophytosis. There is mild degenerative change at the acromioclavicular joint. No fracture or subluxation is seen. IMPRESSION: Advanced glenohumeral degenerative change. Transcribed Using Voice Recognition Transcribe Date/Time: Dec 10 2018 9:37A Dictated by: PREET RAMIREZ MD This examination was interpreted and the report reviewed and electronically signed by: PREET RAMIREZ MD on Dec 10 2018 9:37AM EST [id number] [facility] Vital Signs Date Time Vital Sign Value Performing Clinician Facility 05-16-2023 09:10-0400 Body height 179.1 cm Lyndsay Rodriguez DO Work Phone: [facility] 05-16-2023 09:10-0400 Body weight 92.53 kg Lyndsay Rodriguez DO Work Phone: [facility] 05-16-2023 09:10-0400 Diastolic blood pressure 77 mm[Hg] Lyndsay Rodriguez DO Work Phone: [facility] 05-16-2023 09:10-0400 Heart rate 43 /min Lyndsay Rodriguez DO Work Phone: [facility] 05-16-2023 09:10-0400 Systolic blood pressure 171 mm[Hg] Lyndsay Rodriguez DO Work Phone: [facility] 09-06-2022 11:20-0500 Body height 177.8 cm Azradha Bakdamariss Other [facility] 09-06-2022 11:20-0500 Body mass index (BMI) [Ratio] 29.9 kg/m2 Azradha Bakdamariss Other [facility] 09-06-2022 11:20-0500 Body temperature 96.5 [degF] Aziz Bakhous Other [facility] Other 09-06-2022 11:20-0500 Body weight 94.53 kg Aziz Bakhous Other [facility] Other 09-06-2022 11:20-0500 Diastolic blood pressure 88 mm[Hg] Aziz Bakhous Other [facility] Other 09-06-2022 11:20-0500 Respiratory rate 18 /min Azradha Bakhous Other [facility] Other 09-06-2022 11:20-0500 SaO2% (BldA) [Mass fraction] 98 % Aziz Bakhous Other [facility] Other 09-06-2022 11:20-0500 Systolic blood pressure 159 mm[Hg] Aziz Bakhous Other [facility] Other 09-22-2021 11:20-0500 Body height 177.8 cm Ileana Earl Other [facility] Other 09-22-2021 11:20-0500 Body mass index (BMI) [Ratio] 30.93 kg/m2 Ileana Earl Other [facility] 09-22-2021 11:20-0500 Body temperature 96.4 [degF] Ileana Earl Other [facility] Other 09-22-2021 11:20-0500 Body weight 97.8 kg Ileana Earl Other [facility] Other 09-22-2021 11:20-0500 Diastolic blood pressure 75 mm[Hg] Ileana Earl Other [facility] Other 09-22-2021 11:20-0500 Respiratory rate 18 /min Ileana Earl Other [facility] Other 09-22-2021 11:20-0500 SaO2% (BldA) [Mass fraction] 97 % Ileana Earl Other [facility] Other 09-22-2021 11:20-0500 Systolic blood pressure 119 mm[Hg] Ileana Earl Other [facility] Other Encounters Encounter Date Encounter Type Care Provider Facility Start: 10-02-2023 End: 10-02-2023 ambulatory TAYLOR [facility] Start: 09-25-2023 End: 09-25-2023 ambulatory ALHTEA KOROMA Not Available Start: 08-08-2023 End: 08-08-2023 ambulatory PARI RIDER [facility] Start: 06-14-2023 End: 06-14-2023 ambulatory NARCISO DUCKWORTH Facility:[facility] Start: 06-06-2023 End: [facility] Start: 05-24-2023 ambulatory No 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 Facili ty:[facility] Start: 10-03-2022 End: 10-03-[address] NARCISO DUCKWORTH . Facility:[facility] Start: 09-06-2022 End: 09-06-2022 ambulatory Yudith Rubin Other [facility] Other Start: 09-06-2022 Office outpatient vi sit 15 minutes Yudith Irelands [facility] Start: 09-01-2022 End: 09-02-[address] NARCISO DUCKWORTH . Facility:[facility] Start: 09-01-2022 End: 09-02-[address] NARCISO DUCKWORTH . Facility:[facility] Start: 09-22-2021 End: 09-22-2021 ambulatory Ileana Earl Other [facility] Other Start: 09-22-2021 Office outpatient vi sit 15 minutes Ileana Earl [facility] Start: 12-10-2018 End: 12-10-2018 Patient encounter procedure [facility] Procedures Date Procedure Procedure Detail Performing Clinician Start: 09-01-[address] EH DUCKWORTH . Comment on above: Performed By: #### P [facility] #### [facility] [address] [address] [address] Xena Pickard Start: 06-25-2019 Antibody screen Plan of Treatment Date Care Activity Detail Author Start: 06-14-2024 HEMOGLOBIN/HEMATOCRIT HEMOGLOBIN/HEM [facility] Start: 06-14-2024 SERUM CREATININE SERUM CREATININE [facility] Start: 06-16-2023 Influenza vaccination INFLUENZA (#1) [facility] Start: 05-16-2023 End: 07-16-2023 25-hydroxyvitamin D3 [Mass/volume] in Serum or Plasma VITAMIN D 25 HYDROXY Lab Routine Chronic kidney disease, unspecified CKD stage Expected: 05/16/2023, Expires: 07/16/2023 [facility] Work Phone: Comment on above: Expected: 05/16/2023 , Expires: 07/16/2023 Start: 05-16-2023 End: 07-16-2023 MONOCLONAL PROTEIN, SERUM (BLOOD) MONOCLONAL PROTEIN, SERUM (BLOOD) Lab Routine Chronic kidney disease, unspecified CKD stage Expected: 05/16/2023, Expires: 07/16/2023 [facility] Work Phone: Comment on above: Expected: 05/16/2023 , Expires: 07/16/2023 Start: 05-16-2023 End: 07-16-2023 Parathyrin.intact [Mass/volume] in Serum or Plasma PTH INTACT BLD Lab Routine Chronic kidney disease, unspecified CKD stage Expected: 05/16/2023, Expires: 07/16/2023 [facility] Work Phone: Comment on above: Expected: 05/16/2023 , Expires: 07/16/2023 Start: 10-16-2022 ADVANCE DIRECTIVE DISCUSSION ADVANCE DIRECTIVE DISCUSSION [facility] Start: 10-16-2022 DEPRESSION ASSESSMENT DEPRESSION ASS ESSMENT [facility] Start: 07-17-2022 DIABETES SCREEN DIABETES SCREEN [facility] Start: 03-04-2021 COVID-19 VACCINE (3 - Pfizer series) COVID-19 VACCINE (3 - Pfizer series) [facility] Start: 07-17-2020 HEMOGLOBIN/HEMATOCRIT HEMOGLOBIN/HEM [facility] Start: 07-17-2020 SERUM CREATININE SERUM CREATININE [facility] Start: 11-16-2017 PNEUMOCOCCAL: 65+ (2 - PCV) PNEUMOCOCCAL: 65+ (2 - PCV) [facility] Start: 1996 SHINGRIX VACCINE (1 of 2) SHINGRIX VACCINE (1 of 2) [facility] Start: 1965 Urine microalbumin profile DTAP,TDAP,TD (1 - Tdap) [facility] Start: 1964 ANNUAL PCP TEAM MANAGER OUTPATIENT MAURI DISEASE VISIT ANNUAL PCP TEAM CHRONIC DISEASE VISIT [facility] Start: 1964 BP CONTROLLED (<130/80) BP CON TROLLED (<130/80) [facility] Start: 1964 HEPATITIS C SCREENING HEPATITIS C SC ALANNA [facility] End: 05-16-2024 CBC panel - Blood by Automated count CBC Lab Routine Chronic kidney disease, unspecified CKD stage Every 3 months for 4 Occurrences starting 05/16/2023 until 05/16/2024 [facility] Work Phone: Comment on above: Every 3 months for 4 Occurrences starting 05/16/2023 until 05/16/2024 End: 05-16-2024 Protein/Creatinine [Mass Ratio] in Urine PROTEIN CREATININE RATIO Lab Routine Chronic kidney disease, unspecified CKD stage Every 3 months for 4 Occurrences starting 05/16/2023 until 05/16/2024 [facility] Work Phone: Comment on above: Every 3 months for 4 Occurrences starting 05/16/2023 until 05/16/2024 End: 05-16-2024 Renal function 2000 panel - Serum or Plasma RENAL FUNCTION PANEL Lab Routine Chronic kidney disease, unspecified CKD stage Every 3 months for 4 Occurrences starting 05/16/2023 until 05/16/2024 [facility] Work Phone: Comment on above: Every 3 months for 4 Occurrences starting 05/16/2023 until 05/16/2024 End: 05-16-2024 Urinalysis complete panel - Urine URINALYSIS, WITH MICROSCOPIC Lab Routine Chronic kidney disease, unspecified CKD stage Every 3 months for 4 Occurrences starting 05/16/2023 until 05/16/2024 [facility] Work Phone: Comment on above: Every 3 months for 4 Occurrences starting 05/16/2023 until 05/16/2024 End: 06-16-2024 US KIDNEY/BLADDER US KIDNEY/BLADDER Radiology Routine Chronic kidney disease, unspecified CKD stage 1 Occurrences starting 05/16/2023 until 06/16/2024 [facility] Work Phone: Comment on above: 1 Occurrences starti ng 05/16/2023 until 06/16/2024 [facility] Immunizations Immunization Date Immunization Notes Care Provider Fa cility 01-07-2021 COVID-19 original vaccine, age 12+ yr, monovalent (PFIZER-BIONTECH - PURPLE TOP) Lyndsay Rodriguez DO Work Phone: [facility] Work Phone: 12-17-2020 COVID-19 original vaccine, age 12+ yr, monovalent (PFIZER-BIONTECH - PURPLE TOP) Lyndsay Pachecocarito DO Work Phone: [facility] Work Phone: 11-16-2016 pneumococcal polysaccharide vaccine, 23 valent Lyndsay Pachecocarito DO Work Phone: [facility] Payers Date Payer Category Payer Unknown [id number] 2020 Unknown MMO MMO MEDICARE SUPPLEMENT [id number] 2020-Present [phone] [address] [place] [address] Indemnity [id number] 2011 Medicare MEDICARE MEDICAR E A AND B [id number] 2011-Present [phone] [address] [address] [place] [address] Medicare [id number] 1959 Medicare [id number] 1959 Unknown [id number] 1946 Unknown [id number] 1946 Unknown [id number] 1946 Unknown [id number] 1946 Unknown [id number] 1946 Unknown [id number] Social History Date Type Detail Facility Unknown if ever smoked [facility] Other Start: 07-16-2019 End: 05-16-2023 Sex Assigned At [facility] Start: 05-16-2023 Tobacco smoking status NHIS Never smoked tobacco [facility] Start: 05-16-2023 Tobacco use and exposure Smokeless tobacco non-user [facility] Start: 05-16-2023 Alcohol intake Current drinke r of alcohol (finding) [facility] Start: 07-16-2019 End: 05-16-2023 History of Social function [facility] PHQ2 Score 0 [facility] Start: 06-25-2019 Alcohol Comment 2 drinks every other day, maybe 3. beer. [facility] Start: 1945 Sex Assigned At Male C [facility] Start: 06-18-2019 Gender identity Identifies as male gender (finding) [facility] Medical Equipment Procedure Code Equipment Code Equipment Origin al Text Equipment Identifier Dates [id number] Im plant - [id number] hayward Start: 03-02-2017 Comment on above: Description: CHECK P RICE Humeral Insert S ocket 36 M + 4 [id number] Start: 07-16-2019 Insert Rsp 36mm Standard Socket Semiconstrain Humerus - [id number] Start: 03-02-2017 Stem Altivate Dj o Surgical 12 Standard 108mm Humeral Sterile Shoulder - [id number] Start: 07-16-2019 Baseplate Rsp P2 30mm Glenoid Sterile - [id number] Start: 07-16-2019 Screw Rsp 5mm 18 mm Bone Lock Glenoid Baseplate Shoulder - [id number] hayward Start: 03-02-2017 Screw Rsp 5mm 26 mm Bone Lock Glenoid Baseplate Shoulder - [id number] hayward Start: 07-16-2019 Clinical Notes 12-19-2016 to 10-02-2023 Ben Evans Emily - 05/24/2023 9:51 AM EDTPatient Lyndsay Meza DO - 05/16/2023 9:20 AM EDT Note Date & Type Note Facility 10-02-2023 Note Patient here for 2 m o follow up SVT and hypertension. Had routine labs a week ago. Staying very active. Walked 1 mile today. Denies chest pain and SOB. Review of Systems Neurological: Positive for vertigo. Psychiatric/Behavioral: The patient is nervous/anxious. All other systems reviewed and are negative. [facility] 10-02-2023 Note [place] Electrophysiology Consult Note Reason for visit: Palpitations 10/19/22: he continues to be bradycardic but asymptomatic with no symptoms of FLORES, syncope, near syncope, lightness, dizziness he has not had symptoms of palpitations or racing heart recently he is very hypertensive today blood pressure 180/90 08/08/23 dr. rider HPI: Amina Lim is a 78 y.o. year old with past medical history of Monoclonal gammopathy, hypertension, hyperlipidemia, CKD was previously seen by Dr. Duckworth for bradycardia. He has been known to have CKD as a result of chronic NSAID use and also noted to have bradycardia. He was seen at that time by Taylor SONG and was noted that despite not being on any AV moira blocking agents he was bradycardic but however was asymptomatic with no issues with activities of daily life and denied any exertional dyspnea shortness of breath, syncope or near syncope. He did report occasional palpitations. Prior Holter monitor done on 05/23/2023 revealed sinus bradycardia and short runs of nonsustained SVT Had a few dizzy episodes the other day. Did have 1 near-syncopal episode where he had to grab ahold of something due to dizziness. These intermittent episodes lasted for about 3 days. He said he increased his water intake and felt better. Event monitor that was placed from 06/06/2023 through 07/06/2023 revealed predominantly sinus rhythm there were episodes of nonsustained atrial tachycardia that was seen. No episodes of A-fib were noted no episodes of AV block was seen the fastest rate that was noted was SVT that was approximately 160 beats a minute that was noted on 06/08/2023 at 1:10 AM it was difficult to appreciate P waves due to baseline artifact. PMH: Past Medical History: Diagnosis Date Bradycardia Cancer (CMS/HCC) Chronic kidney disease Hyperlipidemia Hypertension PSH: Past Surgical History: Procedure Laterality Date APPENDECTOMY PROSTATE SURGERY SHOULDER SURGERY SH: Social Determinants of Health Tobacco Use: Medium Risk (08/08/2023) Patient History Smoking Tobacco Use: Never Smokeless Tobacco Use: Never Passive Exposure: Current Alcohol Use: Not on file Financial Resource Strain: Not on file Food Insecurity: Not on file Transportation Needs: Not on file Physical Activity: Not on file Stress: Not on file Social Connections: Not on file Intimate Partner Violence: Not on file Depression: Not on file Housing Stability: Not on file Allergies: No Known Allergies Weight: 89.4kg Visit Vitals Ht 1.803 m (5' 11 ) Wt 89.4 kg (197 lb) BMI 27.48 kg/m??? Smoking Status Never BSA 2.12 m??? Meds: Current Outpatient Medications on File Prior to Visit Medication Sig Dispense Refill aspirin 81 mg EC tablet Take 81 mg by mouth in the morning. ferrous sulfate 325 (65 Fe) MG tablet Take 65 mg by mouth with breakfast. losartan (Cozaar) 50 mg tablet Take 50 mg by mouth in the morning. lovastatin (Mevacor) 20 mg tablet Take 20 mg by mouth. spironolactone (Aldactone) 50 mg tablet Take 50 mg by mouth in the morning. tamsulosin (Flomax) 0.4 mg 24 hr capsule Take 0.8 mg by mouth in the morning. No current facility-administered medications on file prior to visit. ROS: Review of Systems Cardiovascular: Positive for near-syncope. Neurological: Positive for dizziness and light-headedness. All other systems reviewed and are negative. Physical Exam: Constitutional General Appearance: well-nourished, well-developed, appears stated age Level of Distress: comfortable Psychiatric Mental Status: alert, normal affect Orientation: oriented to time, place, and person Insight: good judgement Eyes Lids and Conjunctivae: non-injected, no xanthelasma ENMT Ears: no lesions on external ear Nose: no lesions on external nose Oropharynx: no cyanosis, no pallor Neck Neck: supple, trachea midline Carotid Arteries: bilateral normal upstroke, no bruits Jugular Veins: normal jugular venous pressure Thyroid: not enlarged Lungs Respiratory Effort: unlabored Chest Exam: normal curvature, no thoracic deformity Auscultation: clear, no wheezing, no rales, no rhonchi Cardiovascular Rate And Rhythm: regular Heart Sounds: normal S1, normal s2, no gallop Systolic Murmur: not heard Diastolic Murmur: not heard Extremities: no cyanosis, no edema, no peripheral signs of emboli Peripheral Pulses Radial Pulse: normal Abdomen Inspection and Palpation: soft, non distended, no bruit, non tender Musculoskeletal Inspection: no joint swelling Neurologic Gait: normal gait Skin Inspection and Palpation: warm and dry Nails: no clubbing Labs: @LABRESULTS@ No results found for: CHOLESTEROL TOTAL , HDL , LDL CALC , LDL DIRECT , TRIGLYCERIDES , TSH , T3 TOTAL , T4 TOTAL , THYROID PEROXIDASE AB , BNP EKG: No results found for this or any previous visit (from the past 4464 hour(s)). ECHO: 06/2023 TTE Coronary angiogram: @C (more content not included)... [facility] 08-08-2023 Note [place] Electrophysiology Consult Note Reason for visit: Palpitations HPI: Amina Lim is a 78 y.o. year old with past medical history of Monoclonal gammopathy, hypertension, hyperlipidemia, CKD was previously seen by Dr. Duckworth for bradycardia. He has been known to have CKD as a result of chronic NSAID use and also noted to have bradycardia. He was seen at that time by Taylor SONG and was noted that despite not being on any AV moira blocking agents he was bradycardic but however was asymptomatic with no issues with activities of daily life and denied any exertional dyspnea shortness of breath, syncope or near syncope. He did report occasional palpitations. Prior Holter monitor done on 05/23/2023 revealed sinus bradycardia and short runs of nonsustained SVT Had a few dizzy episodes the other day. Did have 1 near-syncopal episode where he had to grab ahold of something due to dizziness. These intermittent episodes lasted for about 3 days. He said he increased his water intake and felt better. Event monitor that was placed from through 07/06/2023 revealed predominantly sinus rhythm there were episodes of nonsustained atrial tachycardia that was seen. No episodes of A-fib were noted no episodes of AV block was seen the fastest rate that was noted was SVT that was approximately 160 beats a minute that was noted on 06/08/2023 at 1:10 AM it was difficult to appreciate P waves due to baseline artifact. PMH: Past Medical History: Diagnosis Date Bradycardia Cancer (CMS/HCC) Chronic kidney disease Hyperlipidemia Hypertension PSH: Past Surgical History: Procedure Laterality Date APPENDECTOMY PROSTATE SURGERY SHOULDER SURGERY SH: Social Determinants of Health Tobacco Use: Medium Risk (08/08/2023) Patient History Smoking Tobacco Use: Never Smokeless Tobacco Use: Never Passive Exposure: Current Alcohol Use: Not on file Financial Resource Strain: Not on file Food Insecurity: Not on file Transportation Needs: Not on file Physical Activity: Not on file Stress: Not on file Social Connections: Not on file Intimate Partner Violence: Not on file Depression: Not on file Housing Stability: Not on file Allergies: No Known Allergies Weight: 91.6kg Visit Vitals BP 144/76 (BP Location: Left arm, Patient Position: Sitting) Pulse 55 Ht 1.803 m (5' 11 ) Wt 91.6 kg (202 lb) SpO2 96% BMI 28.17 kg/m??? Smoking Status Never BSA 2.14 m??? Meds: Current Outpatient Medications on File Prior to Visit Medication Sig Dispense Refill aspirin 81 mg EC tablet Take 81 mg by mouth in the morning. losartan (Cozaar) 50 mg tablet Take 25 mg by mouth in the morning. lovastatin (Mevacor) 20 mg tablet Take 20 mg by mouth. spironolactone (Aldactone) 50 mg tablet Take 50 mg by mouth in the morning. tamsulosin (Flomax) 0.4 mg 24 hr capsule Take 0.8 mg by mouth in the morning. No current facility-administered medications on file prior to visit. ROS: Review of Systems Cardiovascular: Positive for near-syncope. Neurological: Positive for dizziness and light-headedness. All other systems reviewed and are negative. Physical Exam: Constitutional General Appearance: well-nourished, well-developed, appears stated age Level of Distress: comfortable Psychiatric Mental Status: alert, normal affect Orientation: oriented to time, place, and person Insight: good judgement Eyes Lids and Conjunctivae: non-injected, no xanthelasma ENMT Ears: no lesions on external ear Nose: no lesions on external nose Oropharynx: no cyanosis, no pallor Neck Neck: supple, trachea midline Carotid Arteries: bilateral normal upstroke, no bruits Jugular Veins: normal jugular venous pressure Thyroid: not enlarged Lungs Respiratory Effort: unlabored Chest Exam: normal curvature, no thoracic deformity Auscultation: clear, no wheezing, no rales, no rhonchi Cardiovascular Rate And Rhythm: regular Heart Sounds: normal S1, normal s2, no gallop Systolic Murmur: not heard Diastolic Murmur: not heard Extremities: no cyanosis, no edema, no peripheral signs of emboli Peripheral Pulses Radial Pulse: normal Abdomen Inspection and Palpation: soft, non distended, no bruit, non tender Musculoskeletal Inspection: no joint swelling Neurologic Gait: normal gait Skin Inspection and Palpation: warm and dry Nails: no clubbing Labs: @LABRESULTS@ No results found for: CHOLESTEROL TOTAL, HDL, LDL CALC, LDL DIRECT, TRIGLYCERIDES, TSH, T3 TOTAL, T4 TOTAL, THYROID PEROXIDASE AB, BNP, BNP, BNP EKG: No results found for this or any previous visit (from the past 4464 hour(s)). Coronary angiogram: @CATH@ Diagnostic Imaging: No images are attached to the encounter. Assessment and Plan: - SVT: Patient was asymptomatic during this time. I have educated him about self checking with pulse check periodically during the day. if there are episodes of tachycardia then I would brower (more content not included)... [facility] 06-21-2023 Note -episodes of SVT on holter -they appear like atach -30d monitor [facility] 06-21-2023 Note -no BB d/t bradycard ia at baseline -stress test to rule out cad [facility] 06-21-2023 Note -ct statin [facility] 06-21-2023 Note -cr 1.47, gfr 49 as of 05/2023 -sees nephrology [facility] 06-21-2023 Note Patient states he wa s told he has a heart mumur -no obvious murmur heard on exam, will order echo to rule out structural/valvular abnormalities [facility] 06-21-2023 Note - asymptomatic - 30-day event monitor to rule out significant bradycardia/AV blocks -treadmill stress for NSVT and to rule out chronotropic incompetence [facility] 06-21-2023 Note - stable, [facility] New patient here to establish care. Ref from Dr. Duckworth for bradycardia. Wore Holter monitor recently. Sees [facility] nephrology for CKD. Has never seen cardiology before. He denies chest pain, SOB, and palpitations. Review of Systems All other systems reviewed and are negative. [facility] 06-06-2023 Note [place] Electrophysiology Consult Note Reason for visit: new pt, bradycardia, nsvt on holter HPI: Amina iLm is a 78 y.o. year old with past medical history of chronic back pain, BPH, monoclonal gammopathy, kidney stones, hypertension, hyperlipidemia, bradycardia, ckd. He is a patient of Dr. Duckworth. 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 He was noted to be bradycardic and nephrology was concern for perfusion related to his kidneys and referral was sent to us for bradycardia. Patient is not on any AV moira blocking agents. He is completely asymptomatic. He has no issues with exertion and denies any chest pain, shortness of breath, FLORES, lightness, dizziness. He does get occasional palpitations but infrequent. PCP did Holter monitor 05/23/2023 which revealed sinus bradycardia, sinus tachycardia, SVT, Short run of NSVT,, difficult to differentiate between NSVT but is appearing to be wide-complex and QRS morphology appears different than sinus rhythm QRS. It does mention SVT, tachycardia and junctional rhythm. No junctional rhythm noted from my review patient did have episodes of SVT which appear more like atrial tachycardia I discussed with patient Holter monitor is not sufficient enough for bradycardia. We will order 30-day event monitor to rule out any significant bradycardia or AV blocks. Due to findings of suspected NSVT with no prior cardiac testing we will proceed with ischemic eval PMH: Past Medical History: Diagnosis Date Bradycardia Cancer (CMS/HCC) Chronic kidney disease Hyperlipidemia Hypertension PSH: Past Surgical History: Procedure Laterality Date APPENDECTOMY PROSTATE SURGERY SHOULDER SURGERY SH: Social Determinants of Health Tobacco Use: Low Risk (06/06/2023) Patient History Smoking Tobacco Use: Never Smokeless Tobacco Use: Never Passive Exposure: Not on file Alcohol Use: Not on file Financial Resource Strain: Not on file Food Insecurity: Not on file Transportation Needs: Not on file Physical Activity: Not on file Stress: Not on file Social Connections: Not on file Intimate Partner Violence: Not on file Depression: Not on file Housing Stability: Not on file Allergies: No Known Allergies Weight: 91.2kg Visit Vitals BP 134/72 (BP Location: Left arm, Patient Position: Sitting) Pulse 55 Ht 1.803 m (5' 11 ) Wt 91.2 kg (201 lb) SpO2 95% BMI 28.03 kg/m??? Smoking Status Never BSA 2.14 m??? Meds: Current Outpatient Medications on File Prior to Visit Medication Sig Dispense Refill aspirin 81 mg EC tablet Take 81 mg by mouth in the morning. losartan (Cozaar) 50 mg tablet Take 25 mg by mouth in the morning. lovastatin (Mevacor) 20 mg tablet Take 20 mg by mouth. spironolactone (Aldactone) 50 mg tablet Take 50 mg by mouth in the morning. tamsulosin (Flomax) 0.4 mg 24 hr capsule Take 0.8 mg by mouth in the morning. [DISCONTINUED] losartan (Cozaar) 100 mg tablet Take 100 mg by mouth in the morning. No current facility-administered medications on file prior to visit. ROS: Cardio Basic Cardiovascular Symptoms: no lightheadedness, no leg edema, no syncope, no orthopnea, no PND, no claudication, Constitutional Constitutional: no fever, no night sweats, no significant weight gain, no significant weight loss, no exercise intolerance Eyes Eyes: no dry eyes, no irritation, no vision change ENMT Ears: no difficulty hearing, no ear pain Nose: no frequent nosebleeds, Mouth/Throat: no sore throat, no bleeding gums, no snoring, no dry mouth, no mouth ulcers, no oral abnormalities, no teeth problems Respiratory Respiratory: no cough, no wheezing, no coughing up blood, no sleep apnea Musculoskeletal Musculoskeletal: no muscle aches, no muscle weakness, joint pain+, no back pain, no swelling in the extremities Integumentary Skin no rash, no ulcer, no varicosities, no discoloration, no pruritus Neurologic Neurologic: no loss of consciousness, no weakness, no numbness, no seizures, no dizziness, no headaches Psychiatric Psych: no depression, feeling safe in relationship, no alcohol abuse, Hematologic/Lymphatic Hematologic/Lymphatic no swollen glands, no bruising Physical Exam: Constitutional General Appearance: well-nourished, well-developed, appears stated age Level of Distress: comfortable Psychiatric Mental Status: alert, normal affect Orientation: oriented to time, place, and person Insight: good judgement Eyes Lids and Conjunctivae: non-injected, no xanthelasma ENMT Ears: no lesions on external ear Nose: no lesions on external nose Oropharynx: no cyanosis, no pallor Neck Neck: supple, trachea midline Carotid Arteries: bilateral normal upstroke, no bruits Jugular Veins: normal jugular venous pressure Thyroid: not enlarged Lungs Respiratory Effort: unlabored Chest Exam: normal curvature, no thoracic deformity (more content not included)... [facility] 05-24-2023 Note Patient Outreach (NE TNAV) AMINA LIM ([id number]) 1945 M Date Time Provider Department 05/24/23 NO PCP NETNA During your visit today, we recorded the following information about you: Allergies As of Date: 05/24/2023 (No Known Allergies) Date Reviewed: 05/16/2023 Reviewed by: Quin Kwong - Fully Assessed Prescriptions as of 06/26/2023 - aspirin, enteric coated (ASPIRIN, ENTERIC COATED) 81 mg EC tablet Take 1 tablet by mouth twice daily for 14 days. - Lactobac no.41-Bifidobact no.7 (PROBIOTIC-10) 70 mg (3 billion cell) cap Take 1 capsule by mouth once daily. - mupirocin (BACTROBAN) 2 % ointment Apply 0.5 inch with cotton swab (Q-tip) to each nostril in the morning and evening for 5 days prior to and including day of surgery. - diclofenac, EC, (VOLTAREN) 25 mg EC tablet Take 25 mg by mouth twice daily. - prasterone, dhea, (DHEA) 50 mg tab Take 50 mg by mouth once daily. - spironolactone (ALDACTONE) 50 mg tablet Take 50 mg by mouth once daily. - turmeric-turmeric root extract 450-50 mg cap Take 1 capsule by mouth once daily. - Ascorbic Acid (VITAMIN C) 1,000 mg tablet Take 3,000 mg by mouth 3 times a WEEK. - MINERALS ORAL Take 1 tablet by mouth once daily. - Khdgi-5-CRN-EPA-Fish Oil (FISH OIL) 1,000 mg (120 mg-180 mg) cap Take 1 g by mouth once daily. - lovastatin (MEVACOR) 20 mg tablet Take 20 mg by mouth daily at bedtime. - multivitamin (MULTIPLE VITAMINS) tablet Take 1 tablet by mouth once daily. - Saw [place] 160 mg capsule Take 160 mg by mouth three times daily. - vitamin b complex tab Take 1 tablet by mouth once daily. - VITAMIN E ACETATE ORAL Take 1,200 mg by mouth twice daily. - tamsulosin ER (FLOMAX) 0.4 mg cp24 Take 0.4 mg by mouth once daily. - losartan (COZAAR) 100 mg tablet Take 100 mg by mouth once daily. - aspirin, enteric coated (ASPIRIN, ENTERIC COATED) 81 mg EC tablet Take 81 mg by mouth once daily. 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 05-24-2023 Note Patient Outreach (NE TNAV) AMINA LIM ([id number]) 1945 M Date Time Provider Department 05/24/23 NO PCP NETNAV During your visit today, we recorded the following information about you: Emily Mercado 06/26/2023 3:01 AM Signed POPULATION HEALTH NAVIGATION OUTREACH Action/[facility] Support: Called pt to schedule an appt in Pain Management. Patient will callback to schedule. Patient Identified by Name and : NO Outreach Outcome/Action Spoke to patient / parent / legal guardian: Patient will return the call or ask for return call Did you use a PCP flex slot to schedule this appointment? N/A Reason for Outreach Care Gap or Scheduling/Wellness visits Payer: Payor: MEDICARE / Plan: MEDICARE A AND B / Product Type: Medicare / Care Gap Reviewed:: Specialty Scheduling Reminder: Reminder note to check Health Maintenance for items below Health Maintenance items due: ANNUAL PCP TEAM CHRONIC DISEASE VISIT Never done HEPATITIS C SCREENING Never done BP CONTROLLED (<130/80) Never done DTAP,TDAP,TD(1 - Tdap) Never done SHINGRIX VACCINE(1 of 2) Never done PNEUMOCOCCAL: 65+(2 - PCV) due on 11/16/2017 SERUM CREATININE due on 07/17/2020 HEMOGLOBIN/HEMATOCRIT due on 07/17/2020 COVID-19 VACCINE(3 - Pfizer series) due on 03/04/2021 DIABETES SCREEN due on 07/17/2022 ADVANCE DIRECTIVE DISCUSSION Never done DEPRESSION ASSESSMENT Never done Navigation Signature: Emily Evans May 24, 2023 9:52 AM Allergies As of Date: 05/24/2023 (No Known Allergies) Date Reviewed: 05/16/2023 Reviewed by: Quin Kwong - Fully Assessed Prescriptions as of 06/26/2023 - aspirin, enteric coated (ASPIRIN, ENTERIC COATED) 81 mg EC tablet Take 1 tablet by mouth twice daily for 14 days. - Lactobac no.41-Bifidobact no.7 (PROBIOTIC-10) 70 mg (3 billion cell) cap Take 1 capsule by mouth once daily. - mupirocin (BACTROBAN) 2 % ointment Apply 0.5 inch with cotton swab (Q-tip) to each nostril in the morning and evening for 5 days prior to and including day of surgery. - diclofenac, EC, (VOLTAREN) 25 mg EC tablet Take 25 mg by mouth twice daily. - prasterone, dhea, (DHEA) 50 mg tab Take 50 mg by mouth once daily. - spironolactone (ALDACTONE) 50 mg tablet Take 50 mg by mouth once daily. - turmeric-turmeric root extract 450-50 mg cap Take 1 capsule by mouth once daily. - Ascorbic Acid (VITAMIN C) 1,000 mg tablet Take 3,000 mg by mouth 3 times a WEEK. - MINERALS ORAL Take 1 tablet by mouth once daily. - Bkpbj-5-NFV-EPA-Fish Oil (FISH OIL) 1,000 mg (120 mg-180 mg) cap Take 1 g by mouth once daily. - lovastatin (MEVACOR) 20 mg tablet Take 20 mg by mouth daily at bedtime. - multivitamin (MULTIPLE VITAMINS) tablet Take 1 tablet by mouth once daily. - Saw [place] 160 mg capsule Take 160 mg by mouth three times daily. - vitamin b complex tab Take 1 tablet by mouth once daily. - VITAMIN E ACETATE ORAL Take 1,200 mg by mouth twice daily. - tamsulosin ER (FLOMAX) 0.4 mg cp24 Take 0.4 mg by mouth once daily. - losartan (COZAAR) 100 mg tablet Take 100 mg by mouth once daily. - aspirin, enteric coated (ASPIRIN, ENTERIC COATED) 81 mg EC tablet Take 81 mg by mouth once daily. 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 05-24-2023 Note HNO ID: [id number] Author: Emily Mercado Service: ? Author Type: ? Type: Progress Notes Filed: 06/26/2023 3:01 AM Note Text: POPULATION HEALTH NAVIGATION OUTREACH Action/[facility] [place] Support: Called pt to schedule an appt in Pain Management. Patient will callback to schedule. Patient Identified by Name and : NO Outreach Outcome/Action Spoke to patient / parent / legal guardian: Patient will return the call or ask for return call Did you use a PCP flex slot to schedule this appointment? N/A Reason for Outreach Care Gap or Scheduling/Wellness visits Payer: Payor: MEDICARE / Plan: MEDICARE A AND B / Product Type: Medicare / Care Gap Reviewed:: Specialty Scheduling Reminder: Reminder note to check Health Maintenance for items below Health Maintenance items due: ANNUAL PCP TEAM CHRONIC DISEASE VISIT Never done HEPATITIS C SCREENING Never done BP CONTROLLED (<130/80) Never done DTAP,TDAP,TD(1 - Tdap) Never done SHINGRIX VACCINE(1 of 2) Never done PNEUMOCOCCAL: 65+(2 - PCV) due on 11/16/2017 SERUM CREATININE due on 07/17/2020 HEMOGLOBIN/HEMATOCRIT due on 07/17/2020 COVID-19 VACCINE(3 - Pfizer series) due on 03/04/2021 DIABETES SCREEN due on 07/17/2022 ADVANCE DIRECTIVE DISCUSSION Never done DEPRESSION ASSESSMENT Never done Navigation Signature: Emily Evans May 24, 2023 9:52 AM [facility] 08-09-2023 History of Present illness Narrative POPULATION HEALTH NAVIGATION OUTREACH Action/[facility] [place] Support: Called pt to schedule an appt in Pain Management. Patient will callback to schedule. Patient Identified by Name and : NO Outreach Outcome/Action Spoke to patient / parent / legal guardian: Patient will return the call or ask for return call Did you use a PCP flex slot to schedule this appointment? N/A Reason for Outreach Care Gap or Scheduling/Wellness visits Payer: Payor: MEDICARE / Plan: MEDICARE A AND B / Product Type: Medicare / Care Gap Reviewed:: Specialty Scheduling Reminder: Reminder note to check Health Maintenance for items below Health Maintenance items due: ANNUAL PCP TEAM CHRONIC DISEASE VISIT Never done HEPATITIS C SCREENING Never done BP CONTROLLED (<130/80) Never done DTAP,TDAP,TD(1 - Tdap) Never done SHINGRIX VACCINE(1 of 2) Never done PNEUMOCOCCAL: 65+(2 - PCV) due on 11/16/2017 SERUM CREATININE due on 07/17/2020 HEMOGLOBIN/HEMATOCRIT due on 07/17/2020 COVID-19 VACCINE(3 - Pfizer series) due on 03/04/2021 DIABETES SCREEN due on 07/17/2022 ADVANCE DIRECTIVE DISCUSSION Never done DEPRESSION ASSESSMENT Never done Navigation Signature: Emily Evans May 24, 2023 9:52 AM documented in this encounter [facility] 05-16-2023 Note HNO ID: [id number] Author: Lyndsay Rodriguez DO Service: ? Author Type: Physician Type: Progress Notes Filed: 05/16/2023 10:07 AM Note Text: [facility], [facility] SERVICE DATE: 05/16/2023 SERVICE TIME: 10:06 AM REASON FOR CONSULT: I am asked to see this patient in consultation for my opinion regarding chronic kidney disease stage III. My recommendations will be communicated by way of shared medical record, fax, or mail. REQUESTING PHYSICIAN: Narciso Duckworth MD PRIMARY CARE PHYSICIAN: Narciso Duckworth MD CHIEF COMPLAINT: Chronic kidney disease stage III HPI: Mr. Lim is a 78 year old male with a Pmhx of primary hypertension, hyperlipidemia, and osteoarthritis, who presents with chronic kidney disease stage III. Last labs in our system from 2019. Creatinine 1.2 at that time. Diclofenac daily at that time. Currently on Diclofenac 25 mg BID. Patient arrived without any labs. Patient states that he was previously following with a coremaking machine operator that went over his labs every visit. States that his renal function was worsening and he was taken off a water pill that improved his renal function. His coremaking machine operator stopped seeing patients in the office and is now only seeing dialysis patients or he is only seeing patients in the hospital. Previously told that he should come off diclofenac. States that when he came off, he was in so much pain he couldn't sleep. Pain is generalized. States that his pain is mostly in his knees. Never told that he had a slow heart rate before. Pulse 43 here. Rechecked manually, he has bradycardia. No symptoms. PAST MEDICAL HISTORY: PAST MEDICAL HISTORY Diagnosis Date Hypercholesteremia Hypertension Peyronie's disease PAST SURGICAL HISTORY: PAST SURGICAL HISTORY Procedure Laterality Date APPENDECTOMY 1999 ruptured, done open OTHER SPECIFIED CASE MGMT Lt. hand lacertion repair PAST SURGICAL HISTORY OF 07/31/09 Penile tunica albuginea plication. PROSTATE SURGERY HX Radiation and seeds FAMILY HISTORY: FAMILY HISTORY Problem Relation Age of Onset Breast Cancer Mother Cancer Maternal Aunt possibly colon cancer SOCIAL HISTORY: Social History Tobacco Use Smoking status: Never Smokeless tobacco: Never Substance Use Topics Alcohol use: Yes Comment: 2 drinks every other day, maybe 3. beer. Drug use: No Comment: denies tx for drug/alcohol abuse in the past. MEDICATIONS: docusate sodium (COLACE) 100 mg capsule Take 1 capsule by mouth twice daily. (Patient not taking: Reported on 10/07/2019 ) aspirin, enteric coated (ASPIRIN, ENTERIC COATED) 81 mg EC tablet Take 1 tablet by mouth twice daily for 14 days. (Patient not taking: Reported on 10/07/2019 ) Lactobac no.41-Bifidobact no.7 (PROBIOTIC-10) 70 mg (3 billion cell) cap Take 1 capsule by mouth once daily. mupirocin (BACTROBAN) 2 % ointment Apply 0.5 inch with cotton swab (Q-tip) to each nostril in the morning and evening for 5 days prior to and including day of surgery. (Patient not taking: Reported on 10/07/2019 ) diclofenac, EC, (VOLTAREN) 25 mg EC tablet Take 25 mg by mouth twice daily. prasterone, dhea, (DHEA) 50 mg tab Take 50 mg by mouth once daily. acetaminophen (TYLENOL EXTRA STRENGTH) 500 mg tablet Take 1,000 mg by mouth as needed. spironolactone (ALDACTONE) 50 mg tablet Take 50 mg by mouth once daily. turmeric-turmeric root extract 450-50 mg cap Take 1 capsule by mouth once daily. Ascorbic Acid (VITAMIN C) 1,000 mg tablet Take 3,000 mg by mouth 3 times a WEEK. MINERALS ORAL Take 1 tablet by mouth once daily. Zywkj-2-MLE-EPA-Fish Oil (FISH OIL) 1,000 mg (120 mg-180 mg) cap Take 1 g by mouth once daily. Lecithin 1,200 mg cap Take 1 capsule by mouth once daily. lovastatin (MEVACOR) 20 mg tablet Take 20 mg by mouth daily at bedtime. multivitamin (MULTIPLE VITAMINS) tablet Take 1 tablet by mouth once daily. Saw [place] 160 mg capsule Take 160 mg by mouth three times daily. vitamin b complex tab Take 1 tablet by mouth once daily. VITAMIN E ACETATE ORAL Take 1,200 mg by mouth twice daily. tamsulosin ER (FLOMAX) 0.4 mg cp24 Take 0.4 mg by mouth once daily. losartan (COZAAR) 100 mg tablet Take 100 mg by mouth once daily. aspirin, enteric coated (ASPIRIN, ENTERIC COATED) 81 mg EC tablet Take 81 mg by mouth once daily. GARLIC ORAL Take 1 tablet by mouth once daily. ALLERGIES: ALLERGIES No Known Allergies REVIEW OF SYSTEMS: Constitutional: No fevers, chills, weight loss Eyes: No loss in vision, photophobia Ear, Nose, and Throat: No epistaxis, nasal congestion Cardiovascular: No chest pain, FLORES, SOB, palpitations Respiratory: No cough, hemoptysis Gastrointestinal: No diarrhea, constipation Genitourinary: No dysuria, polyuria Musculoskeletal: No joint pain, morning stiffness Skin: No rash, no ulcers Neurological: No headaches, seizures, paresthesias Psychiatric: No depr (more content not included)... [facility] 05-16-2023 Instructions Lyndsay Rodriguez, - 05/16/2023 9:50 AM EDT Your renal disease is likely secondary to diclofenac, and possibility now worsening in the setting of low heart rate Avoid Advil, Motrin (Ibuprofen), Aleve (Naproxen), Mobic (Meloxicam), Voltaren (Diclofenac) and other pain/arthritis medications called NSAIDS. Tylenol or topical voltaren gel if necessary for pain Continue current medications Lab work today Will obtain a US kidney/bladder ultrasound Please have your physicians fax over your records [phone] Make an appointment with cardiology for slow heart rate Make an appointment with pain management for pain control options outside of NSAID use Lab work prior to next visit Follow up with Dr. Rodriguez in 3 months. General nephrology recommendations: o Tight glycemic control with A1C < 7.0 o Treat proteinuria with goal urine protein excretion < 500mg/dl o Treat metabolic acidosis and keep serum bicarbonate (CO2) > 20 o Keep serum phosphorus between 3.5-5.5mg/dl o Treat hyperlipidemia with Goal LDL <100mg/dl o Maintain a 2 gram sodium restricted diet o Avoid all nephrotoxic agents including NSAIDs, as above o MRI with gadolinium contrast is safe o Hydration advised prior to CT with iodinated contrast Please bring a complete list of your medications, the dosage and times taken - to every visit. We want to know that ALL of your concerns/needs relevant to this visit- were met today and that we have hopefully exceeded your expectations. You may receive a survey regarding your care today. If you do, please take a few minutes to fill it out and send it back. It will be greatly appreciated. documented in this encounter [facility] 05-16-2023 History of Present illness Narrative [facility] SERVICE DATE: 05/16/2023 SERVICE TIME: 10:06 AM REASON FOR CONSULT: I am asked to see this patient in consultation for my opinion regarding chronic kidney disease stage III. My recommendations will be communicated by way of shared medical record, fax, or mail. REQUESTING PHYSICIAN: Narciso Duckworth MD PRIMARY CARE PHYSICIAN: Narciso Duckworth MD CHIEF COMPLAINT: Chronic kidney disease stage III HPI: Mr. Lim is a 78 year old male with a Pmhx of primary hypertension, hyperlipidemia, and osteoarthritis, who presents with chronic kidney disease stage III. Last labs in our system from 2019. Creatinine 1.2 at that time. Diclofenac daily at that time. Currently on Diclofenac 25 mg BID. Patient arrived without any labs. Patient states that he was previously following with a coremaking machine operator that went over his labs every visit. States that his renal function was worsening and he was taken off a water pill that improved his renal function. His coremaking machine operator stopped seeing patients in the office and is now only seeing dialysis patients or he is only seeing patients in the hospital. Previously told that he should come off diclofenac. States that when he came off, he was in so much pain he couldn't sleep. Pain is generalized. States that his pain is mostly in his knees. Never told that he had a slow heart rate before. Pulse 43 here. Rechecked manually, he has bradycardia. No symptoms. PAST MEDICAL HISTORY: PAST MEDICAL HISTORY Diagnosis Date Hypercholesteremia Hypertension Peyronie's disease PAST SURGICAL HISTORY: PAST SURGICAL HISTORY Procedure Laterality Date APPENDECTOMY 1999 ruptured, done open OTHER SPECIFIED CASE MGMT Lt. hand lacertion repair PAST SURGICAL HISTORY OF 07/31/09 Penile tunica albuginea plication. PROSTATE SURGERY HX Radiation and seeds FAMILY HISTORY: FAMILY HISTORY Problem Relation Age of Onset Breast Cancer Mother Cancer Maternal Aunt possibly colon cancer SOCIAL HISTORY: Social History Tobacco Use Smoking status: Never Smokeless tobacco: Never Substance Use Topics Alcohol use: Yes Comment: 2 drinks every other day, maybe 3. beer. Drug use: No Comment: denies tx for drug/alcohol abuse in the past. MEDICATIONS: docusate sodium (COLACE) 100 mg capsule Take 1 capsule by mouth twice daily. (Patient not taking: Reported on 10/07/2019 ) aspirin, enteric coated (ASPIRIN, ENTERIC COATED) 81 mg EC tablet Take 1 tablet by mouth twice daily for 14 days. (Patient not taking: Reported on 10/07/2019 ) Lactobac no.41-Bifidobact no.7 (PROBIOTIC-10) 70 mg (3 billion cell) cap Take 1 capsule by mouth once daily. mupirocin (BACTROBAN) 2 % ointment Apply 0.5 inch with cotton swab (Q-tip) to each nostril in the morning and evening for 5 days prior to and including day of surgery. (Patient not taking: Reported on 10/07/2019 ) diclofenac, EC, (VOLTAREN) 25 mg EC tablet Take 25 mg by mouth twice daily. prasterone, dhea, (DHEA) 50 mg tab Take 50 mg by mouth once daily. acetaminophen (TYLENOL EXTRA STRENGTH) 500 mg tablet Take 1,000 mg by mouth as needed. spironolactone (ALDACTONE) 50 mg tablet Take 50 mg by mouth once daily. turmeric-turmeric root extract 450-50 mg cap Take 1 capsule by mouth once daily. Ascorbic Acid (VITAMIN C) 1,000 mg tablet Take 3,000 mg by mouth 3 times a WEEK. MINERALS ORAL Take 1 tablet by mouth once daily. Rynfx-8-VVD-EPA-Fish Oil (FISH OIL) 1,000 mg (120 mg-180 mg) cap Take 1 g by mouth once daily. Lecithin 1,200 mg cap Take 1 capsule by mouth once daily. lovastatin (MEVACOR) 20 mg tablet Take 20 mg by mouth daily at bedtime. multivitamin (MULTIPLE VITAMINS) tablet Take 1 tablet by mouth once daily. Saw [place] 160 mg capsule Take 160 mg by mouth three times daily. vitamin b complex tab Take 1 tablet by mouth once daily. VITAMIN E ACETATE ORAL Take 1,200 mg by mouth twice daily. tamsulosin ER (FLOMAX) 0.4 mg cp24 Take 0.4 mg by mouth once daily. losartan (COZAAR) 100 mg tablet Take 100 mg by mouth once daily. aspirin, enteric coated (ASPIRIN, ENTERIC COATED) 81 mg EC tablet Take 81 mg by mouth once daily. GARLIC ORAL Take 1 tablet by mouth once daily. ALLERGIES: ALLERGIES No Known Allergies REVIEW OF SYSTEMS: Constitutional: No fevers, chills, weight loss Eyes: No loss in vision, photophobia Ear, Nose, and Throat: No epistaxis, nasal congestion Cardiovascular: No chest pain, FLORES, SOB, palpitations Respiratory: No cough, hemoptysis Gastrointestinal: No diarrhea, constipation Genitourinary: No dysuria, polyuria Musculoskeletal: No joint pain, morning stiffness Skin: No rash, no ulcers Neurological: No headaches, seizures, paresthesias Psychiatric: No depression, anxiety Endocrine: No hair loss, no heat intolerance Hematologic:No easy bruising, easy bleeding PHYSICAL EXAM: BP 171/77 Pulse (!) 43 Ht 179.1 cm (5' 10.51 ) Wt 92.5 kg (204 lb) BMI 28.85 kg/m Constitutional: No acute distress, Responsive, Normal habitus, and Well-nourished Eyes: Conjunctiva clear and PERRL Ear, Nose, and Throat: Hearing normal, Lips normal, and Dentition normal Neck:Trachea midline No jugular venous distension Cardiovascular:No peripheral edema Regular rate and ryhthm, normal S1 and S2, no murmurs, rubs, or gallops Respiratory: Normal respiratory effort. Lungs clear bilaterally. Abdomen:Soft, non-tender, non-distended. Normal bowel sounds. No hepatosplenomegaly. Musculoskeletal: No clubbing or cyanosis of digits., Normocephalic., and No muscle weakness, joint tenderness, or joint effusions. Neurologic:CN II-XII intact and Normal sensation Psychiatric: Alert and oriented x self, place, time, and setting Normal mood/affect DATA: Diagnostic tests reviewed for today's visit: Glucose (mg/dL) Date Value 07/17/2019 176 Potassium (mmol/L) Date Value 07/17/2019 4.1 Sodium (mmol/L) Date Value 07/17/2019 137 Chloride (mmol/L) Date Value 07/17/2019 106 CO2 (mmol/L) Date Value 07/17/2019 21 Creatinine (mg/dL) Date Value 07/17/2019 1.23 BUN (mg/dL) Date Value 07/17/2019 22 Anion Gap (mmol/L) Date Value 07/17/2019 10 Calcium (mg/dL) Date Value 07/17/2019 8.4 Protein, Total (g/dL) Date Value 07/27/2009 6.8 Albumin (g/dL) Date Value 07/27/2009 4.3 Bilirubin, Total (mg/dL) Date Value 07/27/2009 0.6 Alkaline Phosphatase (U/L) Date Value 07/27/2009 49 AST (U/L) Date Value 07/27/2009 22 ALT (U/L) Date Value 07/27/2009 29 ASSESSMENT: Mr. Lim is a 78 year old male with a Pmhx of primary hypertension, hyperlipidemia, and osteoarthritis, who presents with chronic kidney disease stage III. 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 Anemia of renal disease - Will check CBC 3. Secondary hyperparathyroidism - Will check PTH/Vit D 4. Primary hypertension - Uncontrolled here on current medication 5. Hx of shoulder pain 6. Generalized pain 7. Bradycardia PLAN: - Renal labs today - Refer to pain management in an attempt to get him off Diclofenac - US kidney/bladder - Refer to cardiology in the setting of bradycardia - He will have his PCP office fax over lab records from the last 4 years - Follow up in 3 months labs prior SIGNATURE: Lyndsay Rodriguez DO PATIENT NAME: Amina Lim DATE: May 16, 2023 TIME: 10:06 AM OFFICE NUMBER: [id number] CC: REFERRING PROVIDER: Narciso Duckworth MD PRIMARY CARE PHYSICIAN: Narciso Duckworth MD documented in this encounter [facility] 09-06-2022 Evaluation note Encounter Date Diagnosis Assessment Notes Aug, Hypertensive chronic kidney disease with stage 1 through stage 4 chronic kidney disease, or unspecified chronic kidney disease (ICD-10 - I12.9) Blood pressure is well controlled ast home on current medications. Furosemide was stopped because of dizziness. Patient on losartan and spironolactone. I asked the patient to monitor his blood pressure at home and to follow a low-salt diet. 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 baseline serum creatinine around 1.3-1.5 mg/dl with fluctuation of serum creatinine according to the blood pressure and volume status. He has minimal proteinuria. No lab for this visit Since renal function has been stable previously. Patient at risk for CKD progression from NSAID use.I advised the patient to stop NSAIDs and to try tramadol. I will follow the patient in 4 months to monitor renal function panel Aug, Anemia of renal disease (ICD-10 - D63.1) Hemoglobin stable more than 12 g/dL with no erythropoietin. No CBC at this visit. I will check hemoglobin in 4 months Aug, Primary osteoarthritis of right shoulder (ICD-10 - M19.011) He still takes Diclofanic acid daily to control his pain despite bilateral shoulder surgeries. Long-term risks of nonsteroidal anti-inflammatory use has been addressed. He did try Tylenol with no effect.. I asked the patient to follow with Dr. Duckworth for NSAIDs alternative like Tramadol [facility] Other 12-08-2021 Evaluation note* Encounter Date Diagnosis Assessment Notes Treatment Notes Treatment Clinical Notes Sep, Hypertensive chronic kidney disease with stage 1 through stage 4 chronic kidney disease, or unspecified chronic kidney disease (ICD-10 - I12.9) Blood pressure is well controlled on current medications. 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 baseline serum creatinine around 1.3-1.5 mg/dl with fluctuation of serum creatinine according to the blood pressure and volume status. He has minimal proteinuria. Since renal function has been stable, we are going to see the patient once a year. He also see his PCP once a year we will check his blood pressure and BMP. He can call our office if condition changes. Sep, Anemia of renal disease (ICD-10 - D63.1) Hemoglobin stable more than 12 g/dL with no erythropoietin. Sep, Primary osteoarthritis of right shoulder (ICD-10 - M19.011) He still takes Diclofanic acid daily to control his pain despite bilateral shoulder surgeries. Long-term risks of nonsteroidal anti-inflammatory use has been addressed. He did try Tylenol with no effect. [facility] Other 03-06-2017 History of Past illness Narrative* Problem Noted Date Diagnosed Date Resolved Date Primary osteoarthritis of left shoulder 12/19/2016 06/25/2019 Prostate cancer 07/05/2016 06/25/2019 Peyronie's disease 07/08/2009 9 documented as of this encounter (statuses as of 05/16/2023) [facility]03-06-2017 History of Past illness Narrative* Problem Noted Date Diagnosed Date Resolved Date Primary osteoarthritis of left shoulder 12/19/2016 06/25/2019 Prostate cancer 07/05/2016 06/25/2019 Peyronie's disease 07/08/2009 9 documented as of this encounter (statuses as of 06/26/2023) [facility] Diagnosis Chronic kidney disease, unspecified CKD stage- Primary Bradycardia Other specified cardiac dysrhythmias Generalized pain Anemia of renal disease Anemia in chronic kidney disease Primary hypertension Unspecified essential hypertension documented in this encounter [facility] general Narrative - Reported* Type Description Date Medical History hypertension Medical History cholecystecomy Medical History Arthritis left shoulder. s/p tra yudith long time ago Medical History Hyperlipidemia Medical History Sleep apnea with CPAP Surgical History appendectomy 1989 Surgical History Left shoulder replacement 2016 Surgical History Radiation seeds put in prostrat e 2016 Surgical History SHOULDER REPLACEMENT RIGHT 07/16 Surgical History NEW LENS PUT IN HIS RIGHT EYE Hospitalization History see above [facility] Other Reason for referral (narrative)* Diagnostic Procedure Only (Routine) - Pending Review Specialty Diagnoses / Procedures Referred By Ravi avendano Referred To Contact US IMAGING Diagnoses Chronic kidney disease, unspecified CKD stage Procedures US KIDNEY/BLADDER US RETROPERITONEAL REAL TIME W/IMAGE COMPLETE Lyndsay Rodriguez DO [address] [place] [address] Us Imaging Referral ID Status Reason Start Date Expiration Date Visits Requested Visits Authorized [id number] Pending Review Auto-Generat ed Referral 05/16/2023 06/14/2024 1 1 * Consult, Test, Treat (Routine) - Authorized Specialty Diagnoses / Procedures Referred By Ravi avendano Referred To Contact Pain Management Diagnoses Generalized pain Procedures CONSULT TO PAIN [facility]GT OFFICE[facility] 60-74 MINUTES Lyndsay Rodriguez DO [address] [place] [address] Referral ID Status Reason Start Date Expiration Date Visits Requested Visits Authorized [id number] Authorized PCP Requested Referral 05/16/2023 05/15/2024 1 1 * Consult, Test, Treat (Routine) - Authorized Specialty Diagnoses / Procedures Referred By Contjonathan t Referred To Contact Cardiology Diagnoses Bradycardia Procedures CONSULT TO CARDIOLOGY OFFICE/[facility]IENT [facility] 60-74 MINUTES Lyndsay Rodriguez DO [address] [place] [address] Referral ID Status Reason Start Date Expiration Date Visits Requested Visits Authorized [id number] Authorized PCP Requested Referral 05/16/2023 05/15/2024 1 1 [facility] Summary Purpose Family History No Family History Records FoundNo Family History Records FoundNo Family History Records FoundNo Family History Records FoundNo Family History Records FoundNo Family History Records FoundNo Family History Records FoundNo Family History Records Found Advance Directives No Advanced Directives Records FoundNo Advanced Directives Records FoundNo Advanced Directives Records FoundNo Advanced Directives Records FoundNo Advanced Directives Records FoundNo Advanced Directives Records FoundNo Advanced Directives Records FoundNo Advanced Directives Records Found Hospital Course Note HNO ID: [id number] Author: Jae mcgrath (ResTaina Osullivan MD Service: Orthopaedic Surgery Author Type: Resident Type: Discharge Summary Filed: 07/17/2019 7:27 PM Note Text: Attestation signed by Anshu Thomas at 07/18/2019 7:58 AM Anshu Thomas MD ORTHOPEDIC SURGERY DISCHARGE SUMMARY ADMISSION DATE: 07/16/2019 DISCHARGE DATE: 07/17/2019 Attending Physician: Anshu Thomas Reason for Hospitalization: Right shoulder advanced glenohumeral arthritis Admitting Diagnosis: advanced glenohumeral arthritis Discharge Diagnosis: advanced glenohumeral arthritis Additional Diagnoses: ACTIVE PROBLEM LIST S/P Reverse Total Shoulder Arthroplasty Primary Osteoarthritis of Right Shoulder Glenohumeral Arthritis, Right Status Post Replacement of Left Shoulder Joint Chronic Kidney Disease, Stage Iii (Moderate) (Hcc) Essential (Primary) Hypertension O (more content not included)... Additional Source Comments (unrecognized sect ion and content) No Status Records FoundNo Status Records FoundNo Status Records FoundNo Status Records FoundNo Status Records FoundNo Status Records FoundNo Status Records FoundNo Status Records Found INFORMATION SOURCE (unrecogn ized section and content) DATE CREATED AUTHOR 12/10/2018 [facility] DATE CREATED AUTHOR AUTHOR'S ORGANIZ ATION 07/18/2019 [facility] DATE CREATED AUTHOR AUTHOR'S ORGANIZ ATION 07/01/2020 [facility] DATE CREATED AUTHOR AUTHOR'S ORGANIZ ATION 01/23/2021 [facility] DATE CREATED AUTHOR AUTHOR'S ORGANIZ ATION 03/24/2023 [facility] DATE CREATED AUTHOR AUTHOR'S ORGANIZ ATION 06/26/2023 [facility] DATE CREATED AUTHOR AUTHOR'S ORGANIZ ATION 09/26/2023 [facility] DATE CREATED AUTHOR AUTHOR'S ORGANIZ ATION 10/20/2023 [facility] REASON FOR VISIT (unrecogniz ed section and content) Reason Comments New Patient Source Comments (unrecognize d section and content) In the event this informatio n is protected by the Federal Confidentiality of Alcohol and Drug Abuse Patient Records regulations: The Federal rules restrict any use of the information to criminally investigate or prosecute any alcohol or drug abuse patient.[facility] the event this information is protected by the Federal Confidentiality of Alcohol and Drug Abuse Patient Records regulations: The Federal rules restrict any use of the information to criminally investigate or prosecute any alcohol or drug abuse patient.[facility] the event this information is protected by the Federal Confidentiality of Alcohol and Drug Abuse Patient Records regulations: The Federal rules restrict any use of the information to criminally investigate or prosecute any alcohol or drug abuse patient.[facility] Care Teams (unrecognized sec tion and content) 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 This clinical summary was aggregated from multiple sources. Caution should be exercised in using it in the provision of clinical care. This summary normalizes information from multiple sources, and as a consequence, information in this document may materially change the coding, format and clinical context of patient data. In addition, data may be omitted in some cases. CLINICAL DECISIONS SHOULD BE BASED ON THE PRIMARY CLINICAL RECORDS. [facility] [employer] [facility]. provides no warranty or guarantee of the accuracy or completeness of information in this document.
[2023-11-14 10:29] LABS: Anion Gap 10.6; BUN Creatinine Ratio 19.2; Calcium 9.1 mg/dL (8.5-10.1); Carbon Dioxide 27.5 mmol/L (21.0-32.0); Chloride 100 mmol/L (98-107); Estimated GFR (African America >60 (>=60); Estimated GFR (Non-African Ame 56 (>=60); Glucose 96 mg/dL (74-106); Potassium 4.1 mmol/L (3.5-5.1); Sodium 134 mmol/L (136-145)
== END 2023-11-14 09:13 | disposition home or self-care (01) ==
LOC: LAB 09:19
PROVIDERS: PCP Family Medicine; Visit Provider Nurse Practitioner
DX: I10 Essential (primary) hypertension (principal)
CPT/HCPCS: 36415; 80048

== ENCOUNTER 2023-11-27 09:55 | Outpatient (OUT) | payer MEDICARE, OTHER, SELFPAY ==
--- NOTE | 2023-11-27 09:58 | MR_ITS ---
[place] [id number] Patient Name: AMINA GANT MRN: [id number] date: 1945 Sex: M Assigned Patient Location: MRI Current Patient Location: MRI Accession/Order Number: [id number] Exam Date: 11/27/2023 10:15 Report Date: 11/27/2023 11:22 At the request of: NARCISO BULLOCK Procedure: MR knee RT wo con EXAM: MR knee RT wo con HISTORY: Right knee pain Bilateral Primary Osteoarthritis Of Knee M17.0 COMPARISON: Right knee x-ray 03/15/2023. TECHNIQUE: Multi planar, multisequence MR imaging of the right knee without contrast. Findings: Menisci: There is increased signal within the posterior horn of the medial meniscus centimeters superior articular surface consistent with tear. In addition, there is free edge tearing of the body of the medial meniscus. The body is nearly completely extruded. Complex tearing within the anterior horn of the lateral meniscus. Cruciate ligaments: The anterior and posterior cruciate ligaments are intact. Collateral ligaments: The medial collateral ligament and lateral collateral complex are intact. Patellofemoral: The extensor mechanism is intact. Small joint effusion. Grade 2 patellofemoral compartment chondromalacia. No full-thickness cartilage defect. Other bones and cartilage: No acute fracture or malalignment. Grade 2 lateral with grade 4 medial femoral tibial compartment chondromalacia. There is adjacent subcortical cystic change in bone marrow edema within the medial femoral condyle and medial tibial plateau. Miscellaneous: Small Doan's cyst. MR/MR knee RT wo con IMPRESSION: 1. Torn menisci. 2. Small joint effusion. 3. 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 4. Small Doan's cyst. Electronically authenticated by: ABDI MARTINEZ Date: 11/27/2023 11:22
--- OUTSIDE RECORDS SUMMARY | 2023-11-27 09:59 | XMS_ITS | CCD ---
Author Name Unknown Address [address] [place] [address] Organization [facility] Care Team Providers Care Adjunct History Instructor Name Role Phone RIZWANATRELL TELLEZ Referring Unavailable Ileana Earl Unavailable Yudith Rubin Unavailable ARA Guy, DR STUART Primary Care Unavailable AVA, DR OWEN Admitting Unavailable AVA, DR OWEN [...] MICHELY ., DR STUART Attending Unavailable Narciso Bullock MD Primary Care Provider [phone] NARCISO BULLOCK Primary Care Unavailable LYNDSAY SALGADO Referring Unavailable NARCISO BULLOCK Referring Unavailable NARCISO BULLOCK Primary Care Unavailable LYNDSAY SALGADO Attending Unavailable ALTHEA CASTRO Attending Unavailable TAYLOR COREAS Attending Unavailable PARI ESCALANTE Attending Unavailable TAYLOR COREAS Attending Unavailable TAYLOR COREAS Attending Unavailable Medications Current Medications Medication Drug Class(es) Dates Sig (Normalized) Sig (Original) Acidophilus Extra Strength - (2 sources) Acidophilus Extr a Strength - as directed Orally Active Berkshire 500 MG (2 sources) Berkshire 500 MG a s directed Orally Active [...] tablet Orally Once a day Active Saw Patterson 540 mg (2 sources) take 1 capsule by mo ut once daily Saw Patterson 540 mg 1 Capsule Orally Daily Active taurine 500 mg oral tablet (2 sources) take 1 capsule by mo ut once daily Taurine 500 MG 1 capsule Orally Once a day Active turmeric extract 500 mg oral capsule (2 sources) Turmeric 500 MG as directed Orally Active ubidecarenone 200 mg oral capsule (2 sources) take 1 capsule by [facility] every twenty-four hours CoQ10 200 MG 1 capsule with a meal Orally Once a day for 30 day(s) Active Vitamin C 1000 mg (2 sources) take 1 tablet by dom once daily Vitamin C 1000 mg 1 tablet Orally Once a day Active Vitamin E 400 UNIT (2 sources) take 1 capsule by [facility] once daily Vitamin E 400 UNIT 1 [...] on above: Take 1 capsule by mo [facility] twice daily. Garlic preparation (1 source) [...] 1 capsule by mo ut once daily. lecithin 1200 mg oral capsule (1 source) End: 3 take 1 capsule by mouth once daily Lecithin 1,200 mg cap Take 1 capsule by mouth once daily. 0 05/16/2023 Discontinued Comment on above: Take 1 capsule by mo ut once daily. losartan potassium 100 mg oral tablet (6 sources) Angiotensin 2 Receptor Igor Start: 6 take 1 tablet by mouth once [...] prior to and including day of surgery. Tohnr-1-YRC-EPA-Fish Oil (FISH OIL) 1,000 mg (120 mg-180 mg) cap (3 sources) take 1 capsule by mouth once daily Kmdaq-8-GPY-EPA-Fish Oil (FISH OIL) 1,000 mg (120 mg-180 [...] Take 50 mg by mouth once daily. 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 [...] [COUGH, UNSPECIFIED] Onset: 2 Unclassified (1 source) Other ventricular tachycardia; Translations: [Other ventricular tachycardia] Onset: 3 Unclassified (1 source) Supraventricular tachycardia, unspecified; Translations: [Supraventricular tachycardia, unspecified] Onset: 3 Past or Other Problems Problem Classification Problem Date Documented Date Episodic/Chronic Cardiac dysrhythmias (3 sources) Bradycardia; Translations: [Bradycardia, unspecified] Onset: 06-06-2023 05-16-2023 Episodic Diabetes mellitus without complication (1 source) Other abnormal glucose; Translations: [OTHER ABNORMAL GLUCOSE] Onset: 09-02-2022 Episodic Malaise and fatigue (1 source) Other fatigue; Translations: [OTHER FATIGUE] Onset: 09-02-2022 Episodic Other aftercare (1 source) 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; Translations: [OTH HYDROLOGIST CURRENT DRUG THERAPY] Onset: 09-02-2022 Episodic Other [...] EXPOS COVID-19] Onset: 10-03-2022 Unclassified (1 source) Other ventricular tachycardia; Translations: [Other ventricular tachycardia] Onset: 11-14-2023 Unclassified (1 source) Supraventricular tachycardia, unspecified; Translations: [Supraventricular tachycardia, unspecified] Onset: 08-08-2023 Results Test Name Value Interpretation Reference Range Facility Office Visiton 11-14-2023 Follow-up visit [id number] Amina Lim 1945 M Date Provider Department Center 11/14/2023 TAYLOR GARCIAS Family History Problem Relation Age of Onset Other Father Lupus Father Family Status - Relation Status Age at Father Level of Service:82887 NE OFFICE/OUTPATIENT ESTABLISHED MOD MDM 30 MIN Normal [facility] Office Vis[facility] 10-02-2023 Follow-up visit [id number] Amina Lim 1945 M Date Provider Department Center 10/02/2023 TAYLOR GARCIAS [facility] Family History Problem Relation Age of Onset Other Father Lupus Father Family Status - Relation Status Age at Father Level of Service:65635 NE OFFICE/OUTPATIENT ESTABLISHED MOD MDM 30 MIN Normal [facility] Office Visiton 08-08-2023 Follow-up visit [id number] Amina Lim 1945 M Date Provider Department Center 08/08/2023 GeraldinePARI ESCALANTE [facility] Family History Problem Relation Age of Onset Other Father Lupus Father Family Status - Relation Status Age at Father Level of Service:12512 NE OFFICE/OUTPATIENT NEW MODERATE MDM 45-59 MINUTES [facility] 36on 07-17-2023 36 Basia, can you please get this patient scheduled for a telemed with Dr. Escalante ([facility]) next available?? Thank you! [facility] 36on 07-13-2023 36 Patient called to kane ke you aware that he's had several [...] stress test is now uploaded into his multimedia programmer for your review. Please advise. Thanks. [facility] 25([place])D3 [facility] 25-hydroxyvitamin D3 [Mass/Vol] 37.6 ng/mL Normal 31.0-80.0 [facility] Comment on above: Order Comment: Speci men Type: BLOOD SPECIMEN Ordering Facility: [facility] Address: [address] [address] Result Comment: Clas sification of 25 [place] Vitamin D status: Deficiency/Insufficiency: < or = 30 ng/ml. Sufficiency/Optimal Levels: 31-80 ng/mL Toxicity: > 100 ng/mL. Test performed by chemiluminescent immunoassay. Performed By: #### 1 989-3 #### [facility] CLIA [id number] [address] [facility] [id number] OF [facility] CBC panel Auto (Bld)on 06-14 Erythrocyte distribution width (RBC) [Ratio] 13.8 % Normal 11.5-15.0 [facility] Comment on above: Order Comment: Speci men Type: BLOOD SPECIMEN Ordering Facility: [facility] Address: [address] [place] [address] Performed By: #### 5 8410-2 #### [facility] CLIA [id number] [address] [place] [address] 38068 Hematocrit (Bld) [Volume fraction] 40.1 % Normal 39.0-51.0 [facility] Comment on above: Order Comment: Speci men Type: BLOOD SPECIMEN Ordering Facility: [facility] Address: [address] [place] [address] Performed By: #### 5 8410-2 #### [facility] CLIA [id number] [address] [place] [address] 44571 Hemoglobin (Bld) [Mass/Vol] 13.6 g/dL Normal 13.0-17.0 [facility] Comment on above: Order Comment: Speci men Type: BLOOD SPECIMEN Ordering Facility: [facility] Address: [address] [place] [address] Performed By: #### 5 8410-2 #### [facility] CLIA [id number] [address] [place] [address] 21639 MCH (RBC) [Entitic mass] 30.8 pg Normal 26.0-34.0 [facility] Comment on above: Order Comment: Speci men Type: BLOOD SPECIMEN Ordering Facility: [facility] Address: [address] [address] Performed By: #### 5 8410-2 #### [facility] CLIA [id number] [address] [place] [address] 76868 MCHC (RBC) [Mass/Vol] 33.9 g/dL Normal 30.5-36.0 [facility] Comment on above: Order Comment: Speci men Type: BLOOD SPECIMEN Ordering Facility: [facility] Address: [address] [address] Performed By: #### 5 8410-2 #### [facility] CLIA [id number] [address] [place] [address] 21795 MCV (RBC) [Entitic vol] 90.7 fL Normal 80.0-100.0 [facility] Comment on above: Order Comment: Speci men Type: BLOOD SPECIMEN Ordering Facility: [facility] Address: [address] [address] Performed By: #### 5 8410-2 #### [facility] CLIA [id number] [address] [place] [address] 28183 Nucleated RBC (Bld) [#/Vol] 10*3/uL Normal <0.01 [facility] Comment on above: Order Comment: Speci men Type: BLOOD SPECIMEN Ordering Facility: [facility] Address: [address] [address] Performed By: #### 5 8410-2 #### [facility] CLIA [id number] [address] [place] [address] 55101 Platelet mean volume (Bld) [Entitic vol] 9.4 fL Normal 9.0-12.7 [facility] Comment on above: Order Comment: Speci men Type: BLOOD SPECIMEN Ordering Facility: [facility] Address: [address] [place] [address] Performed By: #### 5 8410-2 #### [facility] CLIA [id number] [address] [place] [address] [place] [address] Platelets (Bld) [#/Vol] 202 10*3/uL Normal 150-400 [facility] Comment on above: Order Comment: Speci men Type: BLOOD SPECIMEN Ordering Facility: [facility] Address: [address] [place] [address] Performed By: #### 5 8410-2 #### [facility] CLIA [id number] [address] [place] [address] 93684 RBC (Bld) [#/Vol] 4.42 10*6/uL Normal 4.20-6.00 [facility] Comment on above: Order Comment: Speci men Type: BLOOD SPECIMEN Ordering Facility: [facility] Address: [address] [place] [address] Performed By: #### 5 8410-2 #### [facility] CLIA [id number] [address] [place] [address] 13862 WBC (Bld) [#/Vol] 9.80 10*3/uL Normal 3.70-11.00 [facility] Comment on above: Order Comment: Speci men Type: BLOOD SPECIMEN Ordering Facility: [facility] Address: [address] [place] [address] Performed By: #### 5 8410-2 #### [facility] CLIA [id number] [address] [place] [address] 42154 IMMUNOFIXATION SCREEN, SERUM on 06-14-2023 INTERPRETATION (MPA) Atypical restricted bands are present in the IgG and kappa regions. Consistent with IgG kappa monoclonal gammopathy. Normal [facility] Comment on above: Order Comment: Speci men Type: BLOOD SPECIMEN Ordering Facility: [facility] Address: [address] [place] [address] Performed By: #### I [facility] #### [facility] CLIA [id number] [address] [facility] [place] [address] [place] MPA RESULT M protein is present. Abnormal No M p rotein is identified. [facility] Comment on above: Order Comment: Speci men Type: BLOOD SPECIMEN Ordering Facility: [facility] Address: [address] [place], [place] [address] Performed By: #### I FESC #### [facility] CLIA [id number] [address] OF [facility] STAFF REVIEW (MPA) Reviewed by Dr. Gwen Valencia MD Normal [facility] Comment on above: Order Comment: Speci men Type: BLOOD SPECIMEN Ordering Facility: [facility] Address: [address] [place], [place] [address] Performed By: #### I FES #### [facility] CLIA [id number] [address] [place] [address] [place] IMMUNOGLOBULINS GAMon 2022 IgA [Mass/Vol] 20 mg/dL Low 70-400 [facility] Comment on above: Order Comment: Speci men Type: BLOOD SPECIMEN Ordering Facility: [facility] Address: [address] [place], [place] [address] Performed By: #### S ERIMM #### [facility] CLIA [id number] [address] [place] [address] [place] IgG [Mass/Vol] 1106 mg/dL Normal 700-1600 [facility] Comment on above: Order Comment: Speci men Type: BLOOD SPECIMEN Ordering Facility: [facility] Address: [address] Performed By: #### S ERIMM #### [facility] CLIA [id number] [address] [place] [address] [place] IgM [Mass/Vol] 14 mg/dL Low 40-230 [facility] Comment on above: Order Comment: Speci men Type: BLOOD SPECIMEN Ordering Facility: [facility] Address: [address] [place], [place] [address] Performed By: #### S ERIMM #### [facility] CLIA [id number] [address] [place] [address] [place] KAPPA/RHODES,FREE,SERon 2022 Immunoglobulin light chains.kappa.free (S) [Mass/Vol] 20.2 mg/L High 3.3-19.4 [facility] Comment on above: Order Comment: Gianna ball Type: BLOOD SPECIMEN Ordering Facility: [facility] Address: [address] [place] [address] Result Comment: Rare ly, increased serum free light chains levels may not be detected or accurately quantified due to prozone phenomenon or in high viscosity samples using this immunoturbidimetric assay. Correlation with other laboratory results and clinical findings is recommended. The [facility] Free Light Chain was performed using the Binding Site Optilite immunoturbidimetric method. Result obtained with different assay methods or kits cannot be used interchangeably. Performed By: #### K LFRS #### [facility] CLIA [id number] [address] [place] [address] [place] Immunoglobulin light chains.kappa/Immuno globulin light chains.lambda (S) [Mass ratio] 2.13 High 0.26-1.65 [facility] Comment on above: Order Comment: Gianna quinn Type: BLOOD SPECIMEN Ordering Facility: [facility] Address: [address] [place] [address] Performed By: #### K LFRS #### [facility] CLIA [id number] [address] [place] [address] [place] Immunoglobulin light chains.lambda.free [Mass/Vol] 9.5 mg/L Normal 5.7-26.3 [facility] Comment on above: Order Comment: Fanyi quinn Type: BLOOD SPECIMEN Ordering Facility: [facility] Address: [address] [place] [address] Result Comment: Rare ly, increased serum free [...] interchangeably. Performed By: #### K LFRS #### [facility] CLIA [id number] [address] [place] [address] [place] PTH-Intact SerPl-ncon 05-18 Parathyrin.intact [Mass/Vol] 38 pg/mL Normal 15-65 [facility] Comment on above: Order Comment: Speci men Type: BLOOD SPECIMEN Ordering Facility: [facility] Address: [address] [place] [address] Performed By: #### 2 731-8 #### [facility] CLIA [id number] [address] [place] [address] [place] Prot/Creat Uron 06-14-2023 Protein/Creatinine (U) [Mass ratio] mg/g Normal <0.15 [facility] Comment on above: Order Comment: Speci men Type: URINE SPECIMEN Ordering Facility: [facility] Address: [address] [place] [address] Result Comment: Adul t Proteinuria Categories: <0.15 mg/mg is considered normal to mildly increased 0.15 - 0.50 mg/mg is considered moderately increased >0.50 mg/mg is considered severely increased KDIGO. (2013). KDIGO 2012 Clinical Practice Guideline for the Evaluation and Management of Chronic Kidney Disease. Official Journal of the International Society of Nephrology, 3(1), 1-150. Performed By: #### 2 4356-8 #### [facility] CLIA [id number] [address] [place] [address] [place] Protein/Creatinine (U) [Mass ratio]on 06-14-2023 Creatinine (U) [Mass/Vol] 45.4 mg/dL Normal 20.0-300.0 [facility] Comment on above: Order Comment: Speci men Type: URINE SPECIMEN Ordering Facility: [facility] Address: [address] [place] [address] Performed By: #### 2 4356-8 #### [facility] CLIA [id number] [address] [address] [place] Protein (U) [Mass/Vol] mg/dL Normal 0-20 [facility] Comment on above: Order Comment: Speci men Type: URINE SPECIMEN Ordering Facility: [facility] Address: [address] [place] [address] Performed By: #### 2 4356-8 #### [facility] CLIA [id number] [address] [id number] [place] Renal function 2000 panelon 06-14-2023 Albumin [Mass/Vol] 4.6 g/dL Normal 3.9-4.9 [facility] Comment on above: Order Comment: Speci men Type: URINE SPECIMEN Ordering Facility: [facility] Address: [address] [place] [address] Performed By: #### 2 4356-8 #### [facility] CLIA [id number] [address] [place] [address] [place] Anion gap [Moles/Vol] 9 mmol/L Normal 9-18 [facility] Comment on above: Order Comment: Speci men Type: URINE SPECIMEN Ordering Facility: [facility] Address: [address] [place], [place] [address] Performed By: #### 2 4356-8 #### [facility] CLIA [id number] [address] [id number] [place] Calcium [Mass/Vol] 9.5 mg/dL Normal 8.5-10.2 [facility] Comment on above: Order Comment: Speci men Type: URINE SPECIMEN Ordering Facility: [facility] Address: [address] [place] [address] Performed By: #### 2 4356-8 #### [facility] CLIA [id number] [address] [id number] [place] Chloride [Moles/Vol] 97 mmol/L Normal 97-105 [facility] Comment on above: Order Comment: Speci men Type: URINE SPECIMEN Ordering Facility: [facility] Address: [address] [address] Performed By: #### 2 4356-8 #### [facility] CLIA [id number] [address] [place] [address] [place] CO2 [Moles/Vol] 28 mmol/L Normal 22-30 [facility] Comment on above: Order Comment: Speci men Type: URINE SPECIMEN Ordering Facility: [facility] Address: [address] [address] Performed By: #### 2 4356-8 #### [facility] CLIA [id number] [address] [place] [address] [place] Creatinine [Mass/Vol] 1.47 mg/dL High 0.73-1.22 [facility] Comment on above: Order Comment: Speci men Type: URINE SPECIMEN Ordering Facility: [facility] Address: [address] [place] [address] Performed By: #### 2 4356-8 #### [facility] CLIA [id number] [address] [place] [address] Creatinine and Glomerular filtration rate.predicted panel (S/P/Bld) 49 mL/min/1.73m??? Low >=60 [facility] Comment on above: Order Comment: Speci men Type: URINE SPECIMEN Ordering Facility: [facility] Address: [address] [place] [address] Result Comment: Shira mated Glomerular Filtration Rate [...] GFR. Performed By: #### 2 4356-8 #### [facility] CLIA [id number] [address] [place] [address] [place] Glucose [Mass/Vol] 112 mg/dL High 74-99 [facility] Comment on above: Order Comment: Speci men Type: URINE SPECIMEN Ordering Facility: [facility] Address: [address] [place] [address] Result Comment: The [place] Diabetes Association (ADA) provides guidance for cutoff [...] Standards of Medical Care in Diabetes 2016, [place] Diabetes Association. Diabetes Care. 2016.39(Suppl 1). Performed By: #### 2 4356-8 #### [facility] CLIA [id number] [address] [place] [address] [place] Phosphate [Mass/Vol] 3.3 mg/dL Normal 2.7-4.8 [facility] Comment on above: Order Comment: Speci men Type: URINE SPECIMEN Ordering Facility: [facility] Address: [address] [place] [address] Performed By: #### 2 4356-8 #### [facility] IA [id number] [address] [place] [address] [place] Potassium [Moles/Vol] 4.2 mmol/L Normal 3.7-5.1 [facility] Comment on above: Order Comment: Speci men Type: URINE SPECIMEN Ordering Facility: [facility] Address: [address] [place] [address] Performed By: #### 2 4356-8 #### [facility] CLIA [id number] [address] [place] [address] [place] Sodium [Moles/Vol] 134 mmol/L Low 136-144 [facility] Comment on above: Order Comment: Speci men Type: URINE SPECIMEN Ordering Facility: [facility] Address: [address] [address] Performed By: #### 2 4356-8 #### [facility] CLIA [id number] [address] [place] [address] [place] Urea nitrogen [Mass/Vol] 25 mg/dL High 9-24 [facility] Comment on above: Order Comment: Speci men Type: URINE SPECIMEN Ordering Facility: [facility] Address: [address] Performed By: #### 2 4356-8 #### [facility] CLIA [id number] [address] [place] [address] [place] Urinalysis complete panel (U )on 06-14-2023 Bilirubin Ql (U) Negative Normal Negative [facility] Comment on above: Order Comment: Speci men Type: URINE SPECIMEN Ordering Facility: [facility] Address: [address] [place], [place] [address] Performed By: #### 2 4356-8 #### [facility] CLIA [id number] [address] [place] [address] [place] Clarity (Unsp spec) Clear Normal Clear [facility] Comment on above: Order Comment: Speci men Type: URINE SPECIMEN Ordering Facility: [facility] Address: [address] Performed By: #### 2 4356-8 #### [facility] CLIA [id number] [address] [place] [address] [place] Color (U) Light Yellow Normal Yellow [facility] Comment on above: Order Comment: Speci men Type: URINE SPECIMEN Ordering Facility: [facility] Address: [address] [place] [address] Performed By: #### 2 4356-8 #### [facility] CLIA [id number] [address] [place] [address] [place] Glucose Test strip (U) [Mass/Vol] Negative Normal Trace, Negative [facility] Comment on above: Order Comment: Speci men Type: URINE SPECIMEN Ordering Facility: [facility] Address: [address] [place], [place] [address] Performed By: #### 2 4356-8 #### [facility] CLIA [id number] [address] [place] [address] [place] Hemoglobin Ql (U) Negative Normal Negative, Trace [facility] Comment on above: Order Comment: Speci men Type: URINE SPECIMEN Ordering Facility: [facility] Address: [address] [place] [address] Performed By: #### 2 4356-8 #### [facility] CLIA [id number] [address] [place] [address] [place] Ketones Ql (U) Negative Normal Trace, Negative [facility] Comment on above: Order Comment: Speci men Type: URINE SPECIMEN Ordering Facility: [facility] Address: [address] [place], [place] [address] Performed By: #### 2 4356-8 #### [facility] CLIA [id number] [address] [place] [address] [place] Leukocyte esterase Test strip Ql (U) Negative Normal Negative, 25 Bubba/uL [facility] Comment on above: Order Comment: Speci men Type: URINE SPECIMEN Ordering Facility: [facility] Address: [address] [place], [place] [address] Performed By: #### 2 4356-8 #### [facility] CLIA [id number] [address] [place] [address] [place] Nitrite Ql (U) Negative Normal Negative [facility] Comment on above: Order Comment: Speci men Type: URINE SPECIMEN Ordering Facility: [facility] Address: [address] [address] Performed By: #### 2 4356-8 #### [facility] CLIA [id number] [address] [place] [address] STATES [facility] pH (U) 6.5 [pH] Normal 5.0-8.0 [facility] Comment on above: Order Comment: Speci men Type: URINE SPECIMEN Ordering Facility: [facility] Address: [address] [address] Performed By: #### 2 4356-8 #### [facility] CLIA [id number] [address] [place] [address] [place] Protein (U) [Mass/Vol] Negative Normal Trace, Negative [facility] Comment on above: Order Comment: Speci men Type: URINE SPECIMEN Ordering Facility: [facility] Address: [address] [place] [address] Performed By: #### 2 4356-8 #### [facility] CLIA [id number] [address] [place] [address] [place] RBC LM.HPF (Urine sed) [#/Area] 0-3 /HPF Normal 0-3 /HPF [facility] Comment on above: Order Comment: Speci men Type: URINE SPECIMEN Ordering Facility: [facility] Address: [address] [place], [place] [address] Performed By: #### 2 4356-8 #### [facility] CLIA [id number] [address] [place] [address] [place] Specific gravity (U) [Rel density] 1.012 Normal 1.005-1.030 [facility] Comment on above: Order Comment: Speci men Type: URINE SPECIMEN Ordering Facility: [facility] Address: [address] [place], [place] [address] Performed By: #### 2 4356-8 #### [facility] CLIA [id number] [address] [place] [address] [place] Urobilinogen Ql (U) Negative Normal Negative [facility] Comment on above: Order Comment: Speci men Type: URINE SPECIMEN Ordering Facility: [facility] Address: [address] [place] [address] Performed By: #### 2 4356-8 #### [facility] CLIA [id number] [address] [place] [address] [place] WBC LM.HPF (Urine sed) [#/Area] 0-5 /HPF Normal 0-5 /HPF [facility] Comment on above: Order Comment: Speci men Type: URINE SPECIMEN Ordering Facility: [facility] Address: [address] [place] [address] Performed By: #### 2 4356-8 #### [facility] CLIA [id number] [address] [place] [address] [place] Office Visiton 06-06-2023 Follow-up visit [id number] Amina Lim 1945 M Date Provider Department Center 06/06/2023 [facility] Family History Problem Relation Age of Onset Other Father Lupus Father Family Status - Relation Status Age at Father Level of Service:76431 NE OFFICE/OUTPATIENT NEW MODERATE MDM 45-59 MINUTES Normal [facility] CNOVon 05-16-2023 CNOV Office Visit (HORACIO ) AMINA LIM ([id number]) 1945 M Date Time Provider Department 05/16/23 9:20 AM LYNDSAY SALGADO During your visit today, we recorded the following information about you: Pulse Blood pressure Weight Height 43/minute 171/77 92.5 kg 1.791 m Lyndsay Salgado DO 05/16/2023 10:07 AM Signed [facility] NEPHROLOGY AND HYPERTENSION [facility] SERVICE DATE: 05/16/2023 SERVICE TIME: 10:06 AM REASON FOR CONSULT: I am asked to see this patient in consultation for my opinion regarding chronic kidney disease stage III. My recommendations will be communicated by way of shared medical record, fax, or mail. 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 States that his renal function was worsening and he was taken off a water pill that improved his renal function. His motorcycle repair shop supervisor stopped seeing patients in the office and [...] Take 1 tablet by mouth once daily. Kqgup-8-NQH-EPA-Fish Oil (FISH OIL) 1,000 mg (120 mg-180 mg) cap Take 1 g by mouth once daily. Lecithin 1,200 mg cap Take 1 capsule by mouth once daily. lovastatin (MEVACOR) 20 mg tablet Take 20 mg by mouth daily at bedtime. multivitamin (MULTIPLE VITAMINS) tablet Take 1 tablet by mouth once daily. Saw Patterson 160 mg capsule Take 160 mg by [...] No c (more content not included)... Normal [facility] XR KNEE DUSTIN 3 Von 03-15-2023 XR KNEE DUSTIN 3 V EXAM: XR KNEE DUSTIN 3 V HISTORY: Osteoarthritis COMPARISON: None. TECHNIQUE: 3 views FINDINGS: There is no acute fracture or dislocation. There are mild degenerative changes. The soft tissues are unremarkable. IMPRESSION: Mild degenerative changes as above. Electronically authenticated by: KELLY LARSON Date: 2023-03-15 12:38 Normal [facility] Covid-19 PCR ([facility])on 09-15 SARS-CoV-2 (COVID-19) RNA DHARA+probe Ql (Unsp spec) Not detected Normal NOT DETECTED [facility] Comment on above: Result Comment: When diagnostic [...] for this test is supported by the [place] of Health and Human Service's declaration that [...] longer be used). Performed By: #### C [facility] ####[facility] [address] [place], [place] [address]MrMalena Pickard INFLUENZA A AND B AGon 10-03 INFLUANEGH SEE BELOW Normal [facility] Comment on above: Result Comment: Nega tive for Flu A protein angiten. Infection due to Flu A cannot be ruled out. Flu A angiten in the sample may be below the detection limit of the test. Performed By: #### I NFLUAB #### [facility] [address] [place] [address] Dr. Xena Pickard [facility] SEE BELOW Normal [facility] Comment on above: Result Comment: Nega tive for Flu B protein antigen. Infection due to Flu B cannot be ruled out. Flu B antigen in the sample may be below the detection limit of the test. Performed By: #### I NFLUAB #### [facility] [address] [place] [address] Dr. Xena Pickard INFLUENZA A AG Negative Normal NEGATIVE SEE COMMENT [facility] Comment on above: Performed By: #### I NFLUAB #### [facility] [address] [place] [address] Dr. Xena Pickard INFLUENZA B AG Negative Normal NEGATIVE SEE COMMENT [facility] Comment on above: Performed By: #### I NFLUAB #### [facility] [address] [place] [address] Dr. Xena Pickard INTERNAL CONTROLS Within Normal Limits Normal Wi thin Normal Limits [facility] Comment on above: Performed By: #### I NFLUAB #### [facility] [address] [place] [address] Dr. Xena Pickard INSULINon 09-02-2022 Insulin 14.1 uIU/mL Normal 2.6-24.9 [facility] Comment on above: Performed By: #### I NSULIN ####[facility] [address] [address]Dr. Xena Pickard PTH INTACTon 09-02-2022 PTH, Intact 14 pg/mL Critically low 15-65 [facility] Comment on above: Performed By: #### P THINT #### [facility] [address] [place] [address] Dr. Xena Pickard CBC AUTO DIFFon 09-01-2022 BASO # 0.0 103/ul Normal 0.0-0.[address] [facility] Comment on above: Performed By: #### C BC #### [facility] [address] [place] [address] Dr. Xena Pickard Basophils/100 WBC (Bld) 0.6 % Normal 0.2-2.[address] [facility] Comment on above: Performed By: #### C BC #### [facility] [address] [place] [address] Dr. Xena Pickard EO # 0.2 103/ul Normal 0.0-0.7 [facility] Comment on above: Performed By: #### C BC #### [facility] [address] [place] [address] Dr. Xena Pickard Eosinophils/100 WBC (Bld) 2.5 % Normal 0.9-7.[address] [facility] Comment on above: Performed By: #### C BC #### [facility] [address] [place] [address] Dr. Xena Pickard Erythrocyte distribution width (RBC) [Ratio] 13.5 % Normal 11.0-15.[address] [facility] Comment on above: Performed By: #### C BC #### [facility] [address] [place] [address] Dr. Xena Pickard Hematocrit (Bld) [Volume fraction] 38.3 % Critically low 42.0-54.[address] [facility] Comment on above: Performed By: #### C BC #### [facility] [address] [place] [address] Dr. Xena Pickard Hemoglobin (Bld) [Mass/Vol] 13.0 g/dL Critically low 14.0-18.[address] [facility] Comment on above: Performed By: #### C BC #### [facility] [address] [place] [address] Dr. Xena Pickard IG # 0.03 10e3/ul Normal 0.00-0.[address] [facility] Comment on above: Performed By: #### C BC #### [facility] [address] [place] [address] Dr. Xena Pickard IG % 0.4 % Normal 0.0-0.[address] [facility] Comment on above: Performed By: #### C BC #### [facility] [address] [place] [address] Dr. Xena Pickard LYMPH # 2.2 103/ul Normal 1.2-3.[address] [facility] Comment on above: Performed By: #### C BC #### [facility] [address] [place] [address] Dr. Xena Pickard Lymphocytes/100 WBC (Bld) 31.5 % Normal 20.5-60.[address] [facility] Comment on above: Performed By: #### C BC #### [facility] [address] [place] [address] Dr. Xena Pickard MANUAL DIFF REQ NO Normal [facility] Comment on above: Performed By: #### C BC #### [facility] [address] [place] [address] Dr. Xena Pickard MCH (RBC) [Entitic mass] 30.5 pg Normal 25.9-34.[address] [facility] Comment on above: Performed By: #### C BC #### [facility] [address] [place] [address] Dr. Xena Pickard MCHC (RBC) [Mass/Vol] 33.9 g/dL Normal 29.9-35.2 [facility] Comment on above: Performed By: #### C BC #### [facility] [address] [place] [address] Dr. Xena Pickard MCV (RBC) [Entitic vol] 89.9 fL Normal 80.0-94.[address] [facility] Comment on above: Performed By: #### C BC #### [facility] [address] [place] [address] Dr. Xena Pickard MONO # 0.6 103/ul Normal 0.3-0.[address] [facility] Comment on above: Performed By: #### C BC #### [facility] [address] [place] [address] Dr. Xena Pickard Monocytes/100 WBC (Bld) 8.2 % Normal 1.7-12.[address] [facility] Comment on above: Performed By: #### C BC #### [facility] [address] [place] [address] Dr. Xena Pickard NEUT # 4.0 103/ul Normal 1.4-6.[address] [facility] Comment on above: Performed By: #### C BC #### [facility] [address] [address] [address] Xena Pickard Neutrophils/100 WBC (Bld) 56.8 % Normal 43.0-75.[address] [facility] Comment on above: Performed By: #### C BC #### [facility] [address] [address] [address] Xena Pickard Platelet mean volume (Bld) [Entitic vol] 10.2 fL Normal 9.5-13.[address] [facility] Comment on above: Performed By: #### C BC #### [facility] [address] [address] [address] Xena Pickard PLT 185 103/ul Normal 150-[address] [facility] Comment on above: Performed By: #### C BC #### [facility] [address] [address] [address] Xena Pickard RBC 4.26 106/ul Critically low 4.70-6.10 [facility] Comment on above: Performed By: #### C BC #### [facility] [address] [address] [address] Xena Pickard WBC 7.1 103/ul Normal 4.0-11.[address] [facility] Comment on above: Performed By: #### C BC #### [facility] [address] [address] [address] Xena Pickard GLYCOHEMOGLOBIN A1Con 2021 ADA RECOMMENDATION SEE BELOW Normal [facility] Comment on above: Result Comment: ADA RECOMMENDED LIMIT 4.0 - 6.0 ADA THERAPEUTIC TARGET < 7.0 ACTION SUGGESTED > 7.0 Performed By: #### A 1C #### [facility] [address] [place] [address] Dr. Xena Pickard Glucose [Mass/Vol] 120 mg/dL Normal [facility] Comment on above: Performed By: #### A 1C #### [facility] [address] [address] [address] Xena Pickard HbA1c (Bld) [Mass fraction] 5.8 % Normal 4.5-6.[address] [facility] Comment on above: Performed By: #### A 1C #### [facility] [address] [address] [address] Xena Pickard LIPID PROFILEon 09-01-2022 CHOL-HDL RATIO NORM SEE BELOW Normal [facility] Comment on above: Result Comment: 3.3 - 4.4 LOW RISK 4.4 - 7.1 AVERAGE RISK 7.1 - 11.0 MODERATE RISK >11.0 HIGH RISK Performed By: #### L IPID, URIC, CMP #### [facility] [address] [address] [address] Xena Pickard Cholesterol [Mass/Vol] 166 mg/dL Normal <=[address] [facility] Comment on above: Performed By: #### L IPID, URIC, CMP #### [facility] [address] [address] [address] Xena Pickard Cholesterol in HDL [Mass/Vol] 52 mg/dL Normal 40-[address] [facility] Comment on above: Performed By: #### L IPID, URIC, CMP #### [facility] [address] [address] [address] Xena Pickard Cholesterol in LDL [Mass/Vol] 100.8 mg/dL Normal [facility] Comment on above: Performed By: #### L IPID, URIC, CMP #### [facility] [address] [address] [address] Xena Pickard Cholesterol.total/C holesterol in HDL [Mass ratio] 3.2 {ratio} Normal [facility] Comment on above: Performed By: #### L IPID, URIC, CMP #### [facility] [address] [address] [address] Xena Pickard HDL NORMAL > or = 60 mg/dl - LO W CARDIOVASCULAR RISK <40 mg/dl - HIGH CARDIOVASCULAR RISK Normal [facility] Comment on above: Performed By: #### L IPID, URIC, CMP #### [facility] [address] [id number] [address] Xena Pickard LDL CALC NORMAL SEE BELOW Normal [facility] Comment on above: Result Comment: <100 mg/dl OPTIMAL 100 - 129 mg/dl NEAR OR ABOVE OPTIMAL 130 - 159 mg/dl BORDERLINE HIGH 160 - 189 mg/dl HIGH >190 mg/dl VERY HIGH Performed By: #### L IPID, URIC, CMP #### [facility] [address] [place], [place] [address] Dr. Xena Pickard Triglyceride [Mass/Vol] 66 mg/dL Normal <=[address] [facility] Comment on above: Performed By: #### L IPID, URIC, CMP #### [facility] [address] [address] [address] Xena Pickard VLDL CALC 13.2 mg/dL Normal [facility] Comment on above: Performed By: #### L IPID, URIC, CMP #### [facility] [address] [address] [address] Xena Pickard PHOSPHORUSon 09-01-2022 Phosphate [Mass/Vol] 3.3 mg/dL Normal 2.6-4.[address] [facility] Comment on above: Performed By: #### P HOS ####[facility] [address] [place], [place] [address]ZdDr. Xena Pickard PROF 14(COMP METB)on 022 Albumin [Mass/Vol] 3.9 g/dL Normal 3.4-5.0 [facility] Comment on above: Performed By: #### L IPID, URIC, CMP #### [facility] [address] [id number] [address] Xena Pickard Albumin/Globulin [Mass ratio] 1.2 {ratio} Normal [facility] Comment on above: Performed By: #### L IPID, URIC, CMP #### [facility] [address] [place], [place] [address] Dr. Xena Pickard ALP [Catalytic activity/Vol] 44 U/L Critically low 46-[address] [facility] Comment on above: Performed By: #### L IPID, URIC, CMP #### [facility] [address] [place], [place] [address] Dr. Xena Pickard ALT [Catalytic activity/Vol] 38 U/L Normal 16-[address] [facility] Comment on above: Performed By: #### L IPID, URIC, CMP #### [facility] [address] [address] [address] Xena Pickard Anion gap [Moles/Vol] 12.3 mmol/L Normal [facility] Comment on above: Performed By: #### L IPID, URIC, CMP #### [facility] [address] [address] [address] Xena Pickard AST [Catalytic activity/Vol] 16 U/L Normal 15-[address] [facility] Comment on above: Performed By: #### L IPID, URIC, CMP #### [facility] [address] [address] [address] Xena Pickard Bilirubin [Mass/Vol] 0.5 mg/dL Normal 0.2-1.[address] [facility] Comment on above: Performed By: #### L IPID, URIC, CMP #### [facility] [address] [place] [address] Dr. Xena Pickard Calcium [Mass/Vol] 8.7 mg/dL Normal 8.5-10.1 [facility] Comment on above: Performed By: #### L IPID, URIC, CMP #### [facility] [address] [place] [address] Dr. Xena Pickard Chloride [Moles/Vol] 101 mmol/L Normal 98-107 [facility] Comment on above: Performed By: #### L IPID, URIC, CMP #### [facility] [address] [address] [address] Xena Pickard CO2 [Moles/Vol] 26.8 mmol/L Normal 21.0-32.0 [facility] Comment on above: Performed By: #### L IPID, URIC, CMP #### [facility] [address] [address] [address] Xena Pickard Creatinine [Mass/Vol] 1.41 mg/dL Critically high 0.70-1.30 [facility] Comment on above: Performed By: #### L IPID, URIC, CMP #### [facility] [address] [address] [address] Xena Pickard EGFR-AF [place] 59 mL/min/1.73m2 Critically low >=[address] [facility] Comment on above: Performed By: #### L IPID, URIC, CMP #### [facility] [address] [place] [address] Dr. Xena Pickard EGFR-NON AF [place]IZ[place] 49 mL/min/1.73m2 Critically low >=60 [facility] Comment on above: Performed By: #### L IPID, URIC, CMP #### [facility] [address] [place] [address] Dr. Xena Pickard Globulin (S) [Mass/Vol] 3.3 g/dL Normal [facility] Comment on above: Performed By: #### L IPID, URIC, CMP #### [facility] [address] [place] [address] Dr. Xena Pickard Glucose [Mass/Vol] 106 mg/dL Normal 74-106 [facility] Comment on above: Performed By: #### L IPID, URIC, CMP #### [facility] [address] [place] [address] Dr. Xena Pickard Potassium [Moles/Vol] 4.1 mmol/L Normal 3.5-5.1 [facility] Comment on above: Performed By: #### L IPID, URIC, CMP #### [facility] [address] [place] [address] Dr. Xena Pickard Protein [Mass/Vol] 7.2 g/dL Normal 6.4-8.2 [facility] Comment on above: Performed By: #### L IPID, URIC, CMP #### [facility] [address] [place] [address] Dr. Xena Pickard Sodium [Moles/Vol] 136 mmol/L Normal 136-145 [facility] Comment on above: Performed By: #### L IPID, URIC, CMP #### [facility] [address] [place] [address] Dr. Xena Pickard Urea nitrogen [Mass/Vol] 33.0 mg/dL Critically high 7.0-18.[address] [facility] Comment on above: Performed By: #### L IPID, URIC, CMP #### [facility] [address] [address] [address] Xena Pickard Urea nitrogen/Creatinine [Mass ratio] 23.4 mg/mg Normal [facility] Comment on above: Performed By: #### L IPID, URIC, CMP #### [facility] [address] [place] [address] Dr. Xena Pickard URIC ACID SERUMon 09-01-2022 Urate [Mass/Vol] 5.1 mg/dL Normal 3.5-7.2 [facility] Comment on above: Performed By: #### L IPID, URIC, CMP #### [facility] [address] [place] [address] Dr. Xena Pickard URINE T PROTEIN CREAT RATIOo n 09-01-2022 UR TOTAL PROTEIN <6.0 Normal <=12.0 [facility] Comment on above: Performed By: #### U RTPCR #### [facility] [address] [place] [address] Dr. Xena Pickard URINE CREAT 36.48 mg/dL Normal 20.00-300.00 [facility] Comment on above: Performed By: #### U RTPCR #### [facility] [address] [place] [address] Dr. Xena Pickard CNNURSEon 01-07-2021 [facility] Nurse Visit (COVAMD) AMINA LIM ([id number]) 1945 M Date Time Provider Department 01/07/21 NEIL PIERCE) LOTTIE During your visit today, we recorded the following information about you: Allergies As of Date: 01/07/2021 (No Known Allergies) Date Reviewed: 10/07/2019 Reviewed by: Sharon JacobsonRn) DOLORES Nunn - Fully Assessed Order(s):Dispop SARS-COV-2 VACCINE 2D DOSE APPT [[id number]] Order #: [id number] Prescriptions as of 01/07/2021 Sig: DOCUSATE SODIUM [...] 1 tablet by mouth once d* OMEGA 8-NKL-RVN-FISH OIL 1,00* Take 1 g by mouth [...] [E78.49] 08/21/2017 Shoulder pain [M25.519] 07/16/2019 Encounter Status:Open [facility] Lab Reportson 07-01-2020 Lab Reports [id number] D:127 [facility] Lab Reports [id number] D:127 [facility] Coding Summary.on 11-27-2019 Coding Summary. 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 Althea Castro M.D. lkr Dictated: 11/25/2019 #[id number] Typed 11/25/2019 #[id number] cc: Althea Castro M.D. [facility] Comment on above: Result Comment: Elec tronically Signed By: Althea Castro MD\.br\Date and Time Signed: 11/26/19 16:05 EST Main OR Intraoperative Recor don 11-26-2019 Main OR Intraoperative Record IntraOp Document Type FT Summary Primary Physician: Althea Castro MD Finalized Date/Time: 11/26/19 13:40:27 Pt. Name: AMINA LIM Adriano Benavidez/Sex: 1945 Male Med Rec #: [id number] Physician: Althea Castro MD Financial #: [id number] Pt. 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 [employer] Case Attendance FT Entry 1 Entry 2 Entry 3 Case Attendee Ga YE, Althea Vargas KNITTING MACHINE OPERATOR [employer], Pattie Denson RN, Yaquelin Rowe Role Performed Surgeon - Primary Scrub - Primary Scrub - Primary Time In 11/25/19 14:12:00 11/25/19 14:12:00 11/25/19 14:12:00 Time Out 11/25/19 14:44:00 11/25/19 14:44:00 11/25/19 14:44:00 Procedure CATARACT EXTRACTION W/ CATARACT EXTRACTION W/ CATARACT EXTRACTION W/ INTRAOCULAR LENS(Right) INTRAOCULAR LENS(Right) INTRAOCULAR LENS(Right) Comments Last Modified By: Estella BERNAL, MELIAOR, MELIA Soria RNOR, SAMANTHA Soria RN, Ruthann 11/25/19 [place] 11/25/19 [place] 11/25/19 14:43:22 14:43:22 14:43:22 Entry 4 Case Attendee SAMANTHA Soria RN, Ruthann Role Performed Record Clerk Salesperson - Primary Time In 11/25/19 14:12:00 Time Out 11/25/19 14:44:00 Procedure CATARACT EXTRACTION W/ INTRAOCULAR LENS(Right) Comments Last Modified By: SAMANTHA Soria RN, Ruthann 11/25/19 14:43:22 Perioperative Protocols FT Pre-Care Text: [...] Medication Applicable) PreOp Antibiotic No Time Out Ga YE, Althea Rowe, Given Luis Antonio Vargas CST, Jarett Stevens RN, Yaquelin Rowe, Estella BERNAL, [...] IOL Primary Procedure Yes Primary Surgeon Althea Castro MD Start 11/25/19 14:22:00 Stop 11/25/19 14:42:00 [...] RN, Outcomes Met? Yes Jarett Barr RN, Yaquelin Rowe, Althea Castro MD Last Modified By: SAMANTHA Soria RN, [...] RN, SAMANTHA Soria RN, SAMANTHA Soria RN, Ruthann 11/25/19 Cortney 11/25/19 Cortney 11/25/19 14:02:53 14:02:53 [...] Hair Removal Methods Not Indicated By Althea Castro MD Outcomes Met? Yes Last Modified By: [...] safely administered during the perioperative period For [place] please see scanned medication reconcilliation form for medications used at the field during the procedure. 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 Yes Last Modified By: SAMANTHA Soria RN, Ruthann 11/25/19 14:28:30 Post-Care Text: The patient is free from signs and symptoms of injury caused by extraneous objects Case Comments Finalized By: Tabitha Clayton CST Document Signatures Signed By: SAMANTHA Soria RN, Ruthann 11/25/19 14:43 Tabitha Clayton CST 11/26/19 13:40 Normal [facility] Operative Reporton 0 Operative Report Date of Surgery: 11/25/2019 SURGEON: Althea Castro M.D. PREOPERATIVE DIAGNOSES: 1. Cataract, right eye [...] to the surface of the globe. A [employer] manometer was positioned and set at 20 [...] in good condition. Ludwin Estrada Dictated: 11/25/2019 #[id number] Typed: 11/26/2019 #[id number] cc: Althea Castro M.D. [facility] Comment on above: Result Comment: Elec tronically Signed By: Althea Castro MD.br\Date and Time Signed: 11/26/19 16:05 EST Inpatient Patient Summaryon 11-25-2019 Inpatient Patient Summary [place] [id number] [facility] Clinical Discharge Instructions PERSON INFORMATION Name: AMINA LIM PHYSICIANS Admitting Physician: Althea Castro MD Attending Physician: Althea Castro MD PCP: Ara YE, Narciso Discharge Diagnosis: Cataract; Floppy iris syndrome Comment: PATIENT EDUCATION INFORMATION Instructions: Medication Leaflets: Follow up: With: Address: When: Althea [address], [place] [id number] Business (1) Comments: Call physician if symptoms worsen Keep scheduled appointment Type Location Start Finish State URO Office Visit YULIANA Bauer 02/10/2020 9:15 AM 02/10/2020 9:30 AM Confirmed [...] unit By Mouth every day. Comment: Mimi Contreras [facility] Main OR PACU II Recordon Main OR PACU II Record PACU Phase II Document Type FT Summary Primary Physician: Althea Castro MD Finalized Date/Time: 11/25/19 15:24:08 Pt. Name: AMINA LIM Adriano /Sex: 1945 Male Med Rec #: [id number] Physician: Althea Castro MD Financial #: [id number] Pt. Type: A Room/Bed: [facility]/ Admit/Disch: 11/25/19 12:23:56 - 11/25/19 15:20:00 Institution: Case Times PACU II FT Pre-Care Text: Identifies [...] By: Emy Thomas RN 11/25/19 15:24 Normal [facility] Main OR Preoperative Recordo n 11-25-2019 Main OR Preoperative Record Holding Area Document Type FT Summary Primary Physician: Althea Castro MD Finalized Date/Time: 11/25/19 12:48:49 Pt. Name: AMINA LIM Adriano Benavidez/Sex: 1945 Male Med Rec #: [id number] Physician: Althea Castro MD Financial #: [id number] Pt. Type: A Room/Bed: [place] [address] Admit/Disch: 11/25/19 12:23:56 - Institution: Case Times [...] By: Cynthia James RN 11/25/19 12:48 Normal [facility] Patient Education - Texton 0 11-25-2019 Patient Education - Text Normal [facility] Basic Metabolic Panlon 07-17 Anion gap [Moles/Vol] 10 mmol/L Normal 0-15 [facility] Calcium [Mass/Vol] 8.4 mg/dL Low 8.5-10.5 [facility] Chloride [Moles/Vol] 106 mmol/L Normal 98-110 [facility] CO2 [Moles/Vol] 21 mmol/L Low 23-32 [facility] Creatinine [Mass/Vol] 1.23 mg/dL Normal 0.7-1.4 [facility] Glucose [Mass/Vol] 176 mg/dL High 65-100 [facility] Potassium [Moles/Vol] 4.1 mmol/L Normal 3.5-5.0 [facility] Sodium [Moles/Vol] 137 mmol/L Normal 135-146 [facility] Urea nitrogen [Mass/Vol] 22 mg/dL Normal 8-25 [facility] CASE MANAGEMon 07-17-2019 CASE MANAGEM HNO ID: [id number] Author: Nichelle Henao (Sw) Service: ? Author Type: Putty Mixer Type: Care Mgt Progress Note Filed: 07/17/2019 [...] 17, 2019 TIME: 11:04 AM PAGER/CONTACT #: [phone] [facility] CASE MGT INIT Gomez 2018 CASE MGT INIT GLENN HNO ID: [id number] Author: Nichelle Henao (Sw) Service: ? 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 No Advance Directive: Current Advance Directive: None Production Packager Attempted to Assist with AD Completion: Yes [...] None Has the Patient Been in a Fpc Facility in the Past 30 days? No SOCIAL: Living Arrangement: Home Lives With: Spouse Financial Resources: Retired Primary Contact: Extended Emergency Contact Information Primary Emergency Contact: Tanja Lim Address: [address] [place] [address] Mobile Relation: Spouse Supportive: Yes Other Important [...] 0 I feel financially burdened by my kly-aj-izomil expenses for my prescription medication: Disagree completely [...] 17, 2019 TIME: 11:02 AM PAGER/CONTACT #: [phone] Normal [facility] CBCon 07-17-2019 Absolute nRBC <0.01 Normal <0.01 [facility] Erythrocyte distribution width (RBC) [Ratio] 13.2 % Normal 11.5-15.0 [facility] Hematocrit (Bld) [Volume fraction] 32.9 % Low 39.0-51.0 [facility] Hemoglobin (Bld) [Mass/Vol] 11.0 g/dL Low 13.0-17.0 [facility] MCH (RBC) [Entitic mass] 30.6 pG Normal 26.0-34.0 [facility] MCHC (RBC) [Mass/Vol] 33.4 g/dL Normal 30.5-36.0 [facility] MCV (RBC) [Entitic vol] 91.6 fL Normal 80.0-100.0 [facility] Platelet mean volume (Bld) [Entitic vol] 10.4 fL Normal 9.0-12.7 [facility] Platelets (Bld) [#/Vol] 188 10*3/uL Normal 150-400 [facility] RBC (Bld) [#/Vol] 3.59 10*6/uL Low 4.20-6.00 [facility] WBC (Bld) [#/Vol] 16.37 10*3/uL High 3.70-11.00 [facility] NURSING PROGon 07-17-2019 NURSING PROG HNO ID: [id number] Author: Prudence (Rn) DOLORES Bowen Service: Nursing Author Type: Registered Nurse Type: Nursing Progress Note Filed: 07/17/2019 1:33 PM Note Text: Nursing Progress Note Patient Name: Amina Lim Patient Location: NM/ NM-1 Daily Note:.Assumed care of patient, assessment completed, [...] note was completed by: Prudence Bowen RN Normal [facility] PROGRESSon 07-17-2019 PROGRESS HNO ID: [id number] Author: Sky Echols Service: General Internal Medicine [...] of care with Dr. Echols. Yeny Walters, MOVIE OPERATOR.CHIPS SCREEN TENDER July 17, 2019 10:36 AM I have seen the patient and verified the exam. I have personally reviewed all labs and imaging results. I have discussed with the PAPER PRODUCTION ENGINEER and I have participated in montelongo components. I agree with the note as documented with additional comments if needed. The assessment and plan as outlined are reflection of our discussion. Sky Echols MD July 17, 2019 [facility] PROGRESS HNO ID: [id number] Author: Rolly Osullivan MD Service: Orthopaedic Surgery [...] (U/L) Date Value 07/27/2009 29 URINALYSIS Specific [place], Ur Date Value Ref Range Status 08/24/2009 [...] Osullivan MD Resident Physician PGY-2 Orthopaedic Surgery [id number] For urgent issues or if after 5:00 PM/weekends, please page [phone]) Normal [facility] THERAPY NTon 07-17-2019 THERAPY NT HNO ID: [id number] Author: Roseanne Jenkins Service: Occupational Therapy Author Type: Occupational Therapist Type: Therapy (PT/OT/Speech/Resp) Filed: 07/17/2019 3:00 PM Note Text: Occupational Therapy Evaluation SERVICE DATE: 07/17/2019 SERVICE TIME: 949 to 1019 ROOM: [address]-517-1 Recommended Discharge Disposition: Home Anticipated Discharge Needs: [...] of daily living (ADL) Interventions Provided: Evaluation;Self Nursing Home Management (42663) $ Evaluation-Low (77400) Billed Units: 1 unit Self Nursing Home Management (70074) Treatment Minutes: 23 2 units Skilled Intervention(s): [...] DATE: July 17, 2019 TIME: 2:46 PM [facility] THERAPY NT HNO ID: [id number] Author: Roseanne Jenkins Service: Occupational Therapy Author Type: Occupational Therapist Type: Therapy (PT/OT/Speech/Resp) Filed: 07/17/2019 3:08 PM Note Text: Occupational Therapy Treatment SERVICE DATE: 07/17/2019 SERVICE TIME: 1155 to 1240 ROOM: [place] [address] Recommended Discharge Disposition: Home Anticipated Discharge Needs: [...] daily living (ADL) Interventions Provided: Therapeutic Exercise (00973);Self Nursing Home Management (55019) Therapeutic Exercise (99564) Treatment Minutes: 10 1 unit Skilled Intervention(s): Instruction in therapeutic exercise Verbal and tactile cuing provided Facilitation of muscle control, optimal recruitment and alignment Education in PROM shoulder to 90 degrees FF passively and work toward limit of 120 degrees. Spouse able to perform PROM to 90 degrees as well Self Nursing Home Management (66724) Treatment Minutes: 35 2 units Skilled Intervention(s): [...] DATE: July 17, 2019 TIME: 3:04 PM [facility] THERAPY NT HNO ID: [id number] Author: Floresita Ray Service: Physical Therapy Author Type: Physical Therapist Type: Therapy (PT/OT/Speech/Resp) Filed: 07/17/2019 1:21 PM Note Text: PHYSICAL THERAPY MISSED VISIT SERVICE DATE: 07/17/2019 SERVICE TIME: 1320 to 1320 ROOM: [place] [address]-1 (EU OR POST OP) Attempted Evaluation. Patient not seen due to No Skilled Needs. Patient's post op needs can be met by OT. Pt does not have any functional mobility impairment. Will discontinue PT order. SIGNATURE: Floresita Ray PT PATIENT NAME: Amina Lim DATE: July 17, 2019 TIME: 1:21 PM [facility] HEALTHon 07-16-2019 ALLIED HEALTH HNO ID: [id number] Author: Armen Redmond (Rt) Service: Radiology Author Type: Ip Architect Type: [employer] [facility] Filed: 07/16/2019 3:56 PM Note Text: [...] RT Elijah July 16, 2019 3:56 PM [facility] HNO ID: [id number] Author: Armen Redmond (Rt) Service: Radiology Author Type: Ip Architect Type: [facility] Filed: 07/16/2019 3:47 PM Note Text: [...] RT Elijah July 16, 2019 3:47 PM [facility] ANES Gerry 07-16-2019 ANES POST HNO ID: [id number] Author: Jordan Desai Service: Anesthesiology Author Type: [...] 170 Pulse: 62 61 65 71 07/16/19 16107/16/19 1630 07/16/19 16407/16/19 170 Resp: 18 16 27 18 07/16/19 16107/16/19 16307/16/19 16407/16/19 170 SpO2: 94% 94% 93% 96% Validated Vital [...] Anesthesia Service: None Other Remarks: SIGNATURE: Jordan Desia MD PATIENT NAME: Amina Lim DATE: July 16, 2019 TIME: 5:30 PM PAGER/CONTACT #: [phone] [facility] ANES PREOPon 07-16-2019 ANES PREOP HNO ID: [id number] Author: Jordan Desai Service: Anesthesiology Author Type: [...] Take 1 tablet by mouth once daily. Sqyge-9-LDM-EPA-Fish Oil (FISH OIL) 1,000 mg (120 mg-180 mg) cap Take 1 g by mouth once daily. Lecithin 1,200 mg cap Take 1 capsule by mouth once daily. lovastatin (MEVACOR) 20 mg tablet Take 20 mg by mouth daily at bedtime. multivitamin (MULTIPLE VITAMINS) tablet Take 1 tablet by mouth once daily. Saw Patterson 160 mg capsule Take 160 mg by [...] ringers infusion 5-30 mL/hr INTRAVENOUS CONTINUOUS Mani (Flavio) Reina II - ceFAZolin iv piggyback 2 g in D5W (iso-osmotic) 100 mL (ANCEF) 2 g INTRAVENOUS Pre-Op Once Mani (Flavio) Reina II - acetaminophen 1,000 mg tab(s) (TYLENOL) 1,000 mg ORAL ONCE Mani (Flavio) Reina II - midazolam (PF) 2 mg injection [...] DATE: July 16, 2019 TIME: 10:51 AM [facility] CONSULTon 07-16-2019 CONSULT HNO ID: [id number] Author: Yeny Walters Service: General Internal Medicine Author Type: Nurse Practitioner Type: Consults Filed: 07/17/2019 2:45 PM Note Text: HISTORY AND PHYSICAL EXAMINATION PATIENT NAME: Amina Lim SERVICE DATE: 07/16/2019 SERVICE TIME: 545pm PRIMARY CARE PHYSICIAN: Narciso Bullock MD REASON FOR CONSULT: Perioperative managment CHIEF [...] by mouth once daily. Disp: Rfl: 07/05/2019 Puigx-2-EXO-EPA-Fish Oil (FISH OIL) 1,000 mg (120 mg-180 [...] mouth once daily. Disp: Rfl: 07/05/2019 Saw Patterson 160 mg capsule Take 160 mg by [...] the care of your patient. Yeny Walters APRN.CHIPS SCREEN TENDER July 16, 2019 5:46 PM Normal [facility] OPERATIVE NOon 07-16-2019 OPERATIVE NO HNO ID: [id number] Author: Anshu Thomas Service: Orthopaedic Surgery Author Type: Physician Type: Operative Report Filed: 07/16/2019 3:21 PM Note Text: [place] [address] [place] OPERATIVE REPORT NAME: Amina Oh [facility] #: [id number] DATE: 07/16/2019 (1:12pm-3:12pm) AGE: 74 SURGEON 1: Anshu Thomas M.D. CLOTH BALE HEADER: 1. Brain Kay M.D. 2. Rolly Osullivan [...] INDICATIONS: The patient is a 74 year oldlij-ajcr-kfs right-hand dominant white male who has a [...] a #2 Ticron suture passed in a vrejob-yp-wcmms fashion. Following this, all retractors were removed, [...] Osullivan M.D., with the primary surgeon (Anshu Thomas M.D.) readily available. The remainder of the procedure, including all critical elements, was completed by the primary surgeon (Anshu Thomas M.D.) with assistance from Brain Kay M.D., and Rolly Osullivan M.D. ESTIMATED BLOOD LOSS: 150 cc DRAINS: none SPECIMENS: none COMPLICATIONS: none apparent Anshu Thomas M.D. [facility] XR SHOULDER SPECIFY 1V RTon 07-16-2019 XR [...] on Jul 16 2019 3:57PM EST [id number] [facility] NURSING PROGon 06-27-2019 NURSING PROG HNO ID: [id number] Author: Norma Sharp) DOLORES Adorno Service: Nursing Author Type: Registered Nurse Type: Nursing Progress Note Filed: 07/15/2019 8:39 AM Note Text: PACC Nurse Progress Note History AND Physical: PACC Visit Date: 06/25/19 Original HANDP Date: N/A ED visit Date: N/A Outside HANDP Scanned Date: N/A Labs Within Last 6 Months: 06/25/19 CBC RBC 4.05 H/H 12.4/38.5 06/25/19 BMP glucose 114 06/25/19 TANDS 30 day in [facility] 03/14/17 conabo Imaging Within Last 12 Months: 06/25/19 ct shoulder in [facility] 12/13/18 xr shoulder 3v Cardiac Testin06/25/19 prelim ekg in [facility] Last Menstrual Period: NA BMI Percentile (PEDS): N/A Risk Assessment: N/A Anesthesia Review: N/A Narrative: N/A Pre-op Considerations: PER [facility] HX CLARENCE- CPAP at night History of Prostate CA with Radiation and insertion of Seeds CKD follows with Nephrology Chart Check: IN PROGRESS NEED FINAL EKG Marialuisa Cates RN June 27, 2019 1:24 PM --- July 15, 2019 8:38 AM Final EKG from 06/25/19--Sinus allegra (57bpm) Norma Adorno RN [facility] Type and SCR (30D)on 019 ABO/RH(D) Positive [facility] HOSPon 12-13-2018 HOSP Patient:Amina Lim MRN: Height:5' [...] (VITAMIN C) 1,000 mg tablet [employer] Hiqsn-7-PLE-EPA-Fish Oil (FISH OIL) 1,000 mg (120 mg-180 mg) cap Lecithin 1,200 mg cap lovastatin (MEVACOR) 20 mg tablet multivitamin (MULTIPLE VITAMINS) tablet Saw Patterson 160 mg capsule vitamin b complex tab [...] notes entered within the past 30 days [facility] XR SHLDR >/=3V AP/RADHA AP/OTH R LTon [...] on Dec 10 2018 9:43AM EST [id number] [facility] XR SHLDR >/=3V AP/RADHA AP/OTH R RTon [...] on Dec 10 2018 9:37AM EST [id number] [facility] Vital Signs Date Time Vital Sign Value Performing Clinician Facility 05-16-2023 09:10-0400 Body height 179.1 cm Lyndsay Maditz DO Work Phone: [facility] 05-16-2023 09:10-0400 Body weight 92.53 kg Lyndsay Maditz DO Work Phone: [facility] 05-16-2023 09:10-0400 Diastolic blood pressure 77 mm[Hg] Lyndsay Maditz DO Work Phone: [facility] 05-16-2023 09:10-0400 Heart rate 43 /min Lyndsay Maditz DO Work Phone: [facility] 05-16-2023 09:10-0400 Systolic blood pressure 171 mm[Hg] Lyndsay Maditz DO Work Phone: [facility] 09-06-2022 11:20-0500 Body height 177.8 cm [employer] Other [facility] Other 09-06-2022 11:20-0500 Body mass index (BMI) [Ratio] 29.9 kg/m2 [employer] Other [facility] Other 09-06-2022 11:20-0500 Body temperature 96.5 [degF] [employer] Other [facility] Other 09-06-2022 11:20-0500 Body weight 94.53 kg [employer] Other [facility] Other 09-06-2022 11:20-0500 Diastolic blood pressure 88 mm[Hg] [facility] [employer] Other [facility] Other 09-06-2022 11:20-0500 Respiratory rate 18 /min Yudith Rubin Other [facility] Other 09-06-2022 11:20-0500 SaO2% (BldA) [Mass fraction] 98 % Yudith Rubin Other [facility] Other 09-06-2022 11:20-0500 Systolic blood pressure 159 mm[Hg] Yudith Rubin Other [facility] Other 09-22-2021 11:20-0500 Body height 177.8 cm Ileana Earl Other [employer] Other 09-22-2021 11:20-0500 Body mass index (BMI) [Ratio] 30.93 kg/m2 Ileana Earl Other [facility] Other 09-22-2021 11:20-0500 Body temperature 96.4 [degF] Ileana Earl Other [facility] Other 09-22-2021 11:20-0500 Body weight 97.8 kg Ileana Earl Other [facility] Other 09-22-2021 11:20-0500 Diastolic blood pressure 75 mm[Hg] Ileana Earl Other [employer] Other 09-22-2021 11:20-0500 Respiratory rate 18 /min Ileana Earl Other [employer] Other 09-22-2021 11:20-0500 SaO2% (BldA) [Mass fraction] 97 % Ileana Earl Other [employer] Other 09-22-2021 11:20-0500 Systolic blood pressure 119 mm[Hg] Ileana Earl Other [employer] Other Encounters Encounter Date Encounter Type Care Provider Facility Start: 11-14-2023 End: 11-14-2023 ambulatory [facility] Start: 10-02-2023 End: 10-02-2023 ambulatory [facility] Start: 09-25-2023 End: 09-25-2023 ambulatory ALTHEA CASTRO Not Available Start: 08-08-2023 End: 08-08-2023 ambulatory PARI [facility] Start: 06-14-2023 End: 06-14-2023 ambulatory NARCISO BULLOCK Facility:[facility] Start: 06-06-2023 End: 06-06-2023 ambulatory [facility] Start: 05-24-2023 ambulatory No Pcp MOVIE OPERATOR Alfie Matos [employer] Start: 05-16-2023 End: 05-16-2023 ambulatory NARCISO BULLOCK Facility:[facility] Start: 05-16-2023 End: 05-16-2023 Patient encounter procedure Lyndsay Salgado DO Work Phone: [facility] Comment on above: Chronic kidney disea se, unspecified CKD stage (Primary Dx); Bradycardia; Generalized pain; Anemia of renal disease; Primary hypertension Start: 03-15-[address] NARCISO BULLOCK . Facili ty:[facility] Start: 10-03-2022 End: 10-03-[address] NARCISO BULLOCK . Facility:[facility] Start: 09-06-2022 End: 09-06-2022 ambulatory Yudith Rubin Other [facility] Other Start: 09-06-2022 Office outpatient vi sit 15 minutes Yudith Rubin [facility] Start: 09-01-2022 End: 09-02-[address] NARCISO BULLOCK . Facility:[facility] Start: 09-01-2022 End: 09-02-[address] NARCISO BULLOCK . Facility:[facility] Start: 09-22-2021 End: 09-22-2021 ambulatory Ileana Earl Other [facility] [employer] Other Start: 09-22-2021 Office outpatient vi sit 15 minutes Ileana Earl [facility] Start: 12-10-2018 End: 12-10-2018 Patient encounter procedure [facility] Procedures Date Procedure Procedure Detail Performing Clinician Start: 09-01-[address] EH BULLOCK . Comment on above: Performed By: #### P SAS #### [facility] [address] [place] [address] Dr. Xena Pickard Start: 06-25-2019 Antibody screen Plan of Treatment Date Care Activity Detail Author Start: 06-14-2024 HEMOGLOBIN/HEMATOCRIT HEMOGLOBIN/HEM ATOCRIT [facility] Start: 06-14-2024 SERUM CREATININE SERUM CREATININE Cl [facility] Start: 06-16-2023 Influenza vaccination INFLUENZA (#1) [facility] Start: 05-16-2023 End: 07-16-2023 25-hydroxyvitamin D3 [Mass/volume] in Serum or Plasma VITAMIN D 25 HYDROXY Lab Routine Chronic kidney disease, unspecified CKD stage Expected: 05/16/2023, Expires: 07/16/2023 [facility] Work Phone: Comment on above: Expected: 05/16/2023 , Expires: 07/16/2023 Start: 05-16-2023 End: 07-16-2023 MONOCLONAL PROTEIN, SERUM (BLOOD) MONOCLONAL PROTEIN, SERUM (BLOOD) Lab Routine Chronic kidney disease, unspecified CKD stage Expected: 05/16/2023, Expires: 07/16/2023 [facility] Work Phone: Comment on above: Expected: 05/16/2023 , Expires: 07/16/2023 Start: 05-16-2023 End: 07-16-2023 Parathyrin.intact [Mass/volume] in Serum or Plasma PTH INTACT BLD Lab Routine Chronic kidney disease, unspecified CKD stage Expected: 05/16/2023, Expires: 07/16/2023 [facility] Work Phone: Comment on above: Expected: 05/16/2023 , Expires: 07/16/2023 Start: 10-16-2022 ADVANCE DIRECTIVE DISCUSSION ADVANCE DIRECTIVE DISCUSSION [facility] Start: 10-16-2022 DEPRESSION ASSESSMENT DEPRESSION ASS ESSMENT [facility] Start: 07-17-2022 DIABETES SCREEN DIABETES SCREEN [facility] Start: 03-04-2021 COVID-19 VACCINE (3 - Pfizer series) COVID-19 VACCINE (3 - Pfizer series) [facility] Start: 07-17-2020 HEMOGLOBIN/HEMATOCRIT HEMOGLOBIN/HEM ATOCRIT [facility] Start: 07-17-2020 SERUM CREATININE SERUM CREATININE Cl [facility] Start: 11-16-2017 PNEUMOCOCCAL: 65+ (2 - PCV) PNEUMOCOCCAL: 65+ (2 - PCV) [facility] Start: 1996 SHINGRIX VACCINE (1 of 2) SHINGRIX VACCINE (1 of 2) [facility] Start: 1965 Urine microalbumin profile DTAP,TDAP,TD (1 - Tdap) [facility] Start: 1964 ANNUAL PCP TEAM MOTOR BUILDER WINDER MAURI DISEASE VISIT ANNUAL PCP TEAM CHRONIC DISEASE VISIT [facility] Start: 1964 BP CONTROLLED (<130/80) BP CON TROLLED (<130/80) [facility] Start: 1964 HEPATITIS C SCREENING HEPATITIS C ME ALANNA [facility] End: 05-16-2024 CBC panel - Blood by Automated count CBC Lab Routine Chronic kidney disease, unspecified CKD stage Every 3 months for 4 Occurrences starting 05/16/2023 until 05/16/2024 [facility] Work Phone: Comment on above: Every 3 months for 4 Occurrences starting 05/16/2023 until 05/16/2024 End: 05-16-2024 Protein/Creatinine [Mass Ratio] in Urine PROTEIN CREATININE RATIO Lab Routine Chronic kidney disease, unspecified CKD stage Every 3 months for 4 Occurrences starting 05/16/2023 until 05/16/2024 [facility] Work Phone: Comment on above: Every 3 months for 4 Occurrences starting 05/16/2023 until 05/16/2024 End: 05-16-2024 Renal function 2000 panel - Serum or Plasma RENAL FUNCTION PANEL Lab Routine Chronic kidney disease, unspecified CKD stage Every 3 months for 4 Occurrences starting 05/16/2023 until 05/16/2024 [facility] Work Phone: Comment on above: Every 3 months for 4 Occurrences starting 05/16/2023 until 05/16/2024 End: 05-16-2024 Urinalysis complete panel - Urine URINALYSIS, WITH MICROSCOPIC Lab Routine Chronic kidney disease, unspecified CKD stage Every 3 months for 4 Occurrences starting 05/16/2023 until 05/16/2024 [facility] Work Phone: Comment on above: Every 3 months for 4 Occurrences starting 05/16/2023 until 05/16/2024 End: 06-16-2024 US KIDNEY/BLADDER US KIDNEY/BLADDER Radiology Routine Chronic kidney disease, unspecified CKD stage 1 Occurrences starting 05/16/2023 until 06/16/2024 [facility] Work Phone: Comment on above: 1 Occurrences starti ng 05/16/2023 until 06/16/[facility] Immunization Date Immunization Notes Care Provider Fa cility 01-07-2021 COVID-19 original vaccine, age 12+ yr, monovalent (PFIZER-BIONTECH - PURPLE TOP) Lyndsay Salgado DO Work Phone: [facility] Work Phone: 12-17-2020 COVID-19 original vaccine, age 12+ yr, monovalent (PFIZER-BIONTECH - PURPLE TOP) Lyndsay Salgado DO Work Phone: [facility] Work Phone: 11-16-2016 pneumococcal polysaccharide vaccine, 23 valent Lyndsay Salgado DO Work Phone: [facility] Payers Date Payer Category Payer Unknown [id number] 2020 Unknown MMO MMO MEDICARE SUPPLEMENT [id number] 2020-Present [phone] [address] [place] [address] Indemnity [id number] 2011 Medicare MEDICARE MEDICAR E A AND B [id number] 2011-Present [phone] [place] [address] Medicare [id number] 1959 Medicare [id number] 1959 Unknown [id number] 1946 Unknown [id number] 1945 Unknown [id number] 1945 Unknown [id number] 1945 Unknown [id number] 1945 Unknown [id number] Social History Date Type Detail Facility Unknown if ever smoked [facility] Other Start: 07-16-2019 End: 05-16-[address] [facility] Start: 05-16-2023 Tobacco smoking status NHIS Never smoked tobacco [facility] Start: 05-16-2023 Tobacco use and exposure Smokeless tobacco non-user [facility] Start: 05-16-2023 Alcohol intake Current drinke r of alcohol (finding) [facility] Start: 07-16-2019 End: 05-16-2023 History of [address] [facility] PHQ2 Score 0 [facility] Start: 06-25-2019 Alcohol Comment 2 drinks every other day, maybe [address]. [address] [facility] Start: 1945 Sex Assigned At Male [facility] Start: 06-18-2019 Gender identity Identifies as male gender (finding) [facility] Medical Equipment Procedure Code Equipment Code Equipment Origin al Text Equipment Identifier Dates Llz-[id number] Im plant - [id number] Start: 03-02-2017 Comment on above: Description: CHECK P RICE Humeral Insert S ocket 36 M + 4 [id number] Start: 07-16-2019 Insert Rsp 36mm Standard Socket Semiconstrain Humerus - [id number] Start: 03-02-2017 Stem Altivate Dj o Surgical 12 Standard 108mm Humeral Sterile Shoulder - [id number] Start: 07-16-2019 Baseplate Rsp P2 30mm Glenoid Sterile - [id number] Start: 07-16-2019 Screw Rsp 5mm 18 mm Bone Lock Glenoid Baseplate Shoulder - [id number] Start: 03-02-2017 Screw Rsp 5mm 26 mm Bone Lock Glenoid Baseplate Shoulder - [id number] Start: 07-16-2019 Clinical Notes 12-19-2016 to 11-14-2023 Emily Mercado - 05/24/2023 9:51 AM EDTPatiLyndsay Ortiz DO - 05/16/2023 9:20 AM EDT Note Date & Type Note Facility 11-14-2023 Note [facility] Note Reason for visit: htn 11/14/23 Previously we increased losartan to 75mg daily with BMP recheck 1 week following It was increased to 100mg per nephro the next day 10/03 BP home readings better controlled, today he is 130/74 10/19/22: he continues to be bradycardic but asymptomatic with no symptoms of FLORES, syncope, near syncope, lightness, dizziness he has not had symptoms of palpitations or racing heart recently he is very hypertensive today blood pressure 180/90 08/08/23 dr. escalante HPI: Amina Lim is a 78 y.o. year old with past medical history of Monoclonal gammopathy, hypertension, hyperlipidemia, CKD was previously seen by Dr. Bullock for bradycardia. He has been known to [...] Determinants of Health Tobacco Use: Medium Risk (10/02/2023) Patient History Smoking Tobacco Use: Never Smokeless Tobacco Use: Never Passive Exposure: Current Alcohol Use: Not on file Financial Resource Strain: Not on file Food Insecurity: Not on file Transportation Needs: Not on file Physical Activity: Not on file Stress: Not on file Social Connections: Not on file Intimate Partner Violence: Not on file Depression: Not on file Housing Stability: Not on file Utilities: Not on file Allergies: No Known Allergies Weight: No weight available Visit Vitals Ht 1.803 m (5' 11 ) BMI 27.48 kg/m??? Smoking Status Never BSA 2.12 m??? Meds: Current Outpatient Medications on File Prior to Visit Medication Sig Dispense Refill aspirin 81 mg EC tablet Take 81 mg by mouth in the morning. ferrous sulfate 325 (65 Fe) MG tablet Take 65 mg by mouth 2 times daily. losartan (Cozaar) 50 mg tablet Take 1.5 tablets (75 mg) by mouth in the morning. 45 tablet 3 lovastatin (Mevacor) 20 mg tablet Take 20 [...] found for: CHOLESTEROL TOTAL , HDL , (more content not included)... [facility] 11-14-2023 Note Patient here for 1 m o follow up hypertension. Losartan was increased to 75mg daily last month. Had BMP this morning. Said he took the increased dose for about 2 weeks and then increased it further to 100mg daily. Still denies chest pain, SOB, and palpitations. Review of Systems Neurological: Positive for vertigo. Psychiatric/Behavioral: The patient is nervous/anxious. All other systems reviewed and are negative. [facility] 10-02-2023 Note Patient here for 2 m o follow up SVT and hypertension. Had routine labs a week ago. Staying very active. Walked 1 mile today. Denies chest pain and SOB. Review of Systems Neurological: Positive for vertigo. Psychiatric/Behavioral: The patient is nervous/anxious. All other systems reviewed and are negative. [facility] 10-02-2023 Note [facility] Note Reason for visit: Palpitations 10/19/22: he continues to be bradycardic but asymptomatic with no symptoms of FLORES, syncope, near syncope, lightness, dizziness he has not had symptoms of palpitations or racing heart recently he is very hypertensive today blood pressure 180/90 08/08/23 dr. escalante HPI: Amina Lim is a 78 y.o. year old with past medical history of Monoclonal gammopathy, hypertension, hyperlipidemia, CKD was previously seen by Dr. Bullock for bradycardia. He has been known to [...] Coronary angiogram: @C (more content not included)... [facility] 08-08-2023 Note [facility] Reason for visit: Palpitations HPI: Amina Lim is a 78 y.o. year old with past medical history of Monoclonal gammopathy, hypertension, hyperlipidemia, CKD was previously seen by Dr. Bullock for bradycardia. He has been known to [...] better. Event monitor that was placed from / through 07/06/2023 revealed predominantly sinus rhythm there [...] I would brower (more content not included)... [facility] 06-21-2023 Note -episodes of SVT on holter -they appear like atach -30d monitor [facility] 06-21-2023 Note -no BB d/t bradycard ia at baseline -stress test to rule out cad [facility] 06-21-2023 Note -ct statin [facility] 06-21-2023 Note -cr 1.47, gfr 49 as of 05/2023 -sees nephrology [facility] 06-21-2023 Note Patient states he wa s told he has a heart mumur -no obvious murmur heard on exam, will order echo to rule out structural/valvular abnormalities [facility] 06-21-2023 Note - asymptomatic - 30-day event monitor to rule out significant bradycardia/AV blocks -treadmill stress for NSVT and to rule out chronotropic incompetence [facility] 06-21-2023 Note - stable, [facility] New patient here to establish care. Ref from Dr. Bullock for bradycardia. Wore Holter monitor recently. Sees [facility] nephrology for CKD. Has never seen cardiology before. He denies chest pain, SOB, and palpitations. Review of Systems All other systems reviewed and are negative. [facility] 06-06-2023 Note [facility] Reason for visit: new pt, bradycardia, nsvt on holter HPI: Amina Lim is a 78 y.o. year old with past medical history of chronic back pain, BPH, monoclonal gammopathy, kidney stones, hypertension, hyperlipidemia, bradycardia, ckd. He is a patient of Dr. Bullock. 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 [facility] 05-24-2023 Note Patient Outreach (MANUELA ALCALA) AMINA LIM ([id number]) 1945 M Date Time Provider Department 05/24/23 NO PCP MAGALY During your visit today, we recorded the [...] 1 tablet by mouth once daily. - Bbyia-0-MBT-EPA-Fish Oil (FISH OIL) 1,000 mg (120 mg-180 mg) cap Take 1 g by mouth once daily. - lovastatin (MEVACOR) 20 mg tablet Take 20 mg by mouth daily at bedtime. - multivitamin (MULTIPLE VITAMINS) tablet Take 1 tablet by mouth once daily. - Saw Patterson 160 mg capsule Take 160 mg by [...] Encounter Status:Closed by RAOUL ROLDAN on 06/26/23 [facility] 05-24-2023 Note Patient Outreach (MANUELA TNAV) AMINA LIM ([id number]) 1945 M Date Time Provider Department 05/24/23 NO PCP MAGALY During your visit today, we recorded the following information about you: Emily Mercado 06/26/2023 3:01 AM Signed POPULATION HEALTH NAVIGATION OUTREACH Action/[facility] Support: Called pt to schedule an appt [...] 1 tablet by mouth once daily. - Fuepn-4-WDW-EPA-Fish Oil (FISH OIL) 1,000 mg (120 mg-180 mg) cap Take 1 g by mouth once daily. - lovastatin (MEVACOR) 20 mg tablet Take 20 mg by mouth daily at bedtime. - multivitamin (MULTIPLE VITAMINS) tablet Take 1 tablet by mouth once daily. - Saw Patterson 160 mg capsule Take 160 mg by [...] Shoulder pain [M25.519] 07/16/2019 Encounter Status:Closed by JENNY ROLDANUSER on 06/26/23 [facility] 05-24-2023 Note HNO ID: [id number] Author: Emily Mercado Service: ? Author Type: ? Type: Progress Notes Filed: 06/26/2023 3:01 AM Note Text: POPULATION HEALTH NAVIGATION OUTREACH Action/[facility] Support: Called pt to schedule an appt [...] Emily Evans May 24, 2023 9:52 AM [facility] 05-24-2023 History of Present illness Narrative POPULATION HEALTH NAVIGATION OUTREACH Action/[facility] Support: Called pt to schedule an appt [...] 2023 9:52 AM documented in this encounter [facility] 05-16-2023 Note HNO ID: [id number] Author: Lyndsay Salgado, DO Service: ? Author Type: Physician Type: Progress Notes Filed: 05/16/2023 10:07 AM Note Text: [facility] SERVICE DATE: 05/16/2023 SERVICE TIME: 10:06 AM REASON FOR CONSULT: I am asked to see this patient in consultation for my opinion regarding chronic kidney disease stage III. My recommendations will be communicated by way of shared medical record, fax, or mail. 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 States that his renal function was worsening and he was taken off a water pill that improved his renal function. His motorcycle repair shop supervisor stopped seeing patients in the office and [...] Take 1 tablet by mouth once daily. Cnsox-2-PVF-EPA-Fish Oil (FISH OIL) 1,000 mg (120 mg-180 mg) cap Take 1 g by mouth once daily. Lecithin 1,200 mg cap Take 1 capsule by mouth once daily. lovastatin (MEVACOR) 20 mg tablet Take 20 mg by mouth daily at bedtime. multivitamin (MULTIPLE VITAMINS) tablet Take 1 tablet by mouth once daily. Saw Patterson 160 mg capsule Take 160 mg by [...] Psychiatric: No depr (more content not included)... [facility] 05-16-2023 Instructions Lyndsay Salgado DO - 05/16/2023 9:50 AM EDT Your renal [...] have your physicians fax over your records [phone] Make an appointment with cardiology for slow heart rate Make an appointment with pain management for pain control options outside of NSAID use Lab work prior to next visit Follow up with Dr. Salgado in 3 months. General nephrology recommendations: o [...] be greatly appreciated. documented in this encounter [facility] 05-16-2023 History of Present illness Narrative [facility] SERVICE DATE: 05/16/2023 SERVICE TIME: 10:06 AM REASON FOR CONSULT: I am asked to see this patient in consultation for my opinion regarding chronic kidney disease stage III. My recommendations will be communicated by way of shared medical record, fax, or mail. 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 States that his renal function was worsening and he was taken off a water pill that improved his renal function. His motorcycle repair shop supervisor stopped seeing patients in the office and [...] PAST SURGICAL HISTORY Procedure Laterality Date APPENDECTOMY 2000 ruptured, done open OTHER SPECIFIED CASE MGMT [...] Take 1 tablet by mouth once daily. Qzxfp-3-SZF-EPA-Fish Oil (FISH OIL) 1,000 mg (120 mg-180 mg) cap Take 1 g by mouth once daily. Lecithin 1,200 mg cap Take 1 capsule by mouth once daily. lovastatin (MEVACOR) 20 mg tablet Take 20 mg by mouth daily at bedtime. multivitamin (MULTIPLE VITAMINS) tablet Take 1 tablet by mouth once daily. Saw Patterson 160 mg capsule Take 160 mg by [...] in 3 months labs prior SIGNATURE: Lyndsay Salgado DO PATIENT NAME: Amina Lim DATE: May 16, 2023 TIME: 10:06 AM OFFICE NUMBER: [id number] CC: REFERRING PROVIDER: Narciso Bullock MD PRIMARY CARE PHYSICIAN: Narciso Bullock MD documented in this encounter [facility] 09-06-2022 Evaluation note Encounter Date Diagnosis [...] asked the patient to follow with Dr. Bullock for NSAIDs alternative like Tramadol [facility] Other 12-08-2021 Evaluation note* Encounter Date Diagnosis [...] He did try Tylenol with no effect. [facility] Other 03-06-2017 History of Past illness Narrative* Problem Noted Date Diagnosed Date Resolved Date Primary osteoarthritis of left shoulder 12/19/2016 06/25/2019 Prostate cancer 07/05/2016 06/25/2019 Peyronie's disease 07/08/2009 9 documented as of this encounter (statuses as of 05/16/2023) [facility] History of Past illness Narrative* Problem Noted Date Diagnosed Date Resolved Date Primary osteoarthritis of left shoulder 12/19/2016 06/25/2019 Prostate cancer 07/05/2016 06/25/2019 Peyronie's disease 07/08/2009 9 documented as of this encounter (statuses as of 06/26/2023) [facility] Chronic kidney disease, unspecified CKD stage- Primary Bradycardia Other specified cardiac dysrhythmias Generalized pain Anemia of renal disease Anemia in chronic kidney disease Primary hypertension Unspecified essential hypertension documented in this encounter [facility] general Narrative - Reported* Type [...] HIS RIGHT EYE Hospitalization History see above [facility] Other Reason for referral (narrative)* Diagnostic Procedure Only (Routine) - Pending Review Specialty Diagnoses / Procedures Referred By Contac t Referred To Contact US IMAGING Diagnoses Chronic kidney disease, unspecified CKD stage Procedures US KIDNEY/BLADDER US RETROPERITONEAL REAL TIME W/IMAGE COMPLETE Lyndsay Salgado DO [address] [place] [address] Us Imaging Referral ID Status Reason Start Date Expiration Date Visits Requested Visits Authorized [id number] Pending Review Auto-Generat ed Referral 05/16/2023 06/14/2024 1 1 * Consult, Test, Treat (Routine) - Authorized Specialty Diagnoses / Procedures Referred By Contac t Referred To Contact Pain Management Diagnoses Generalized pain Procedures CONSULT TO PAIN MGT OFFICE/OUTPATIENT [facility] 60-74 MINUTES Lyndsay Salgado DO [address] [place] [address] Referral ID Status Reason Start Date Expiration Date Visits Requested Visits Authorized [id number] Authorized PCP Requested Referral 05/16/2023 05/15/2024 1 1 * Consult, Test, Treat (Routine) - Authorized Specialty Diagnoses / Procedures Referred By Ravi t Referred To Contact Cardiology Diagnoses Bradycardia Procedures CONSULT TO CARDIOLOGY OFFICE/OUTPATIENT [facility] 60-74 MINUTES Lyndsay Salgado DO [address] [place] [address] Referral ID Status Reason Start Date Expiration Date Visits Requested Visits Authorized [id number] Authorized PCP Requested Referral 05/16/2023 05/15/[address] [facility] Summary Purpose Family History No Family [...] Records Found Hospital Course Note HNO ID: [id number] Author: Jae mcgrath (ResTiana Osullivan MD Service: Orthopaedic Surgery Author Type: [...] section and content) DATE CREATED AUTHOR 12/10/2018 [facility] DATE CREATED AUTHOR AUTHOR'S ORGANIZ ATION 07/18/2019 [facility] DATE CREATED AUTHOR AUTHOR'S ORGANIZ ATION 07/01/2020 [facility] DATE CREATED AUTHOR AUTHOR'S ORGANIZ ATION 01/23/2021 [facility] DATE CREATED AUTHOR AUTHOR'S ORGANIZ ATION 03/24/2023 [facility] DATE CREATED AUTHOR AUTHOR'S ORGANIZ ATION 06/26/2023 [facility] DATE CREATED AUTHOR AUTHOR'S ORGANIZ ATION 09/26/2023 [facility] CRE[facility] AUTHOR AUTHOR'S ORGANIZ ATION 11/15/2023 [facility] REASON FOR VISIT (unrecogniz ed section and content) Reason Comments New Patient Source Comments (unrecognize d section and content) In the event this informatio n is protected by the Federal Confidentiality of Alcohol and Drug Abuse Patient Records regulations: The Federal rules restrict any use of the information to criminally investigate or prosecute any alcohol or drug abuse patient.[facility] the event this information is protected by the Federal Confidentiality of Alcohol and Drug Abuse Patient Records regulations: The Federal rules restrict any use of the information to criminally investigate or prosecute any alcohol or drug abuse patient.[facility] the event this information is protected by the Federal Confidentiality of Alcohol and Drug Abuse Patient Records regulations: The Federal rules restrict any use of the information to criminally investigate or prosecute any alcohol or drug abuse patient.[facility] Care Teams (unrecognized sec tion and content) Adjunct History Instructor Relationship Specialty Start Date End Date Narciso Bullock MD PCP - General 07/06/09 Adjunct History Instructor Relationship Specialty Start Date End Date Narciso Bullock MD PCP - General 07/06/09 Adjunct History Instructor Relationship Specialty Start Date End Date Narciso Bullock MD PCP [facility] 07/06/09 FOR RECORDS PERTAINING TO PATIENTS WHO [...] BE BASED ON THE PRIMARY CLINICAL RECORDS. [facility] [employer] [facility]. provides no warranty or guarantee of the accuracy or completeness of information in this document.
== END 2023-11-27 09:56 | disposition home or self-care (01) ==
LOC: MRI 09:55
PROVIDERS: PCP Family Medicine; Visit Provider Family Medicine
DX: M17.0 Bilateral primary osteoarthritis of knee (principal); S83.241A Other tear of medial meniscus, current injury, right knee, initial encounter; M25.461 Effusion, right knee
CPT/HCPCS: 73721

== ENCOUNTER 2024-07-15 10:03 | Outpatient (OUT) | payer MEDICARE, OTHER, SELFPAY ==
--- OUTSIDE RECORDS SUMMARY | 2024-07-15 10:07 | XMS_ITS | CCD ---
Author Organization [facility] Care Team Providers Care Side Splitter Name Role Phone TRELL HORNER Referring Unavailable Ileana Earl Unavailable ShuAiden juanradha Unavailable ARA Guy, DR STUART Primary Care [...] Unavailable Narciso Bullock MD Primary Care Provider [phone] NARCISO BULLOCK Primary Care Unavailable LYNDSAY SALGADO Referring Unavailable NARCISO BULLOCK Referring Unavailable NARCISO BULLOCK Primary Care Unavailable LYNDSAY SALGADO Attending Unavailable TAYLOR COREAS Attending Unavailable PARI ESCALANTE Attending Unavailable TAYLOR COREAS Attending Unavailable TAYLOR COREAS Attending Unavailable MD Narciso Bullock Primary Care Provider [phone] CHRISTINE Tilley Attending Provider Queta Tilley Attending Unavailable Queta Tilley Admitting Unavailable Narciso Bullock Primary Care Unavailable JR. HANNAH, EL Matos Attending Unavaillinda YOUNG JR., GEORGE C Referring Unavaila QUETA Evans Attending Unavailable SHIRLENE KUHN Attending Unavailable QUETA TILLEY Referring Unavailable QUETA TILLEY Attending Unavailable SHIRLENE KUHN Attending Unavailable JR. HANNAH, EL Matos Referring Unavaila ble TIM LAWSON Attending Unavailable JR. HANNAH, EL Matos Referring Unavaila ble TIM LAWSON Attending Unavailable JR. HANNAH, EL Matos Referring Unavaila ble BONILLA HOWARD Attending Unavailable JR. HANNAH, EL Matos Referring Unavaila ble BONILLA HOWARD Attending Unavailable JR. HANNAH, EL Matos Referring Unavaila ble TIM LAWSON Attending Unavailable JR. HANNAH, EL Matos Referring Unavaila ble SHIRLENE KUHN Attending Unavailable JR. HANNAH, EL Matos Referring Unavaila ble BONILLA HOWARD Attending Unavailable JR. HANNAH, EL Matos Referring Unavaila ble LOY CARMICHAEL Attending Unavailable JR. HANNAH, EL Matos Referring Unavaila ble QUETA TILLEY Attending Unavailable QUETA TILLEY Referring Unavailable SHIRLENE KUHN Attending Unavailable JR. HANNAH, EL Matos Referring Unavaila ble ALTHEA CASTRO Attending Unavailable JR. HANNAH, EL Matos Attending Unavaila ble Medications Current Medications Medication Drug Class(es) Dates Sig (Normalized) Sig (Original) Acidophilus Extra Strength - (2 sources) Acidophilus Extr a Strength - as directed Orally Active Henderson 500 MG (2 sources) Henderson 500 MG a s directed Orally Active artemether / lumefantrine (1 source) Antimalarial Artemether-Lumef antrine 20-120 MG as directed Orally Active Coconut Oil (2 sources) Coconut Oil TWIC E A DAY Active Coconut Oil Acti ve Fish Oils (2 sources) take 1 capsule by mo [facility] once daily Fish Oil 1000 MG 1 [...] tablet Orally Once a day Active Saw Protem 540 mg (2 sources) take 1 capsule by mo ut once daily Saw Protem 540 mg 1 Capsule Orally Daily Active taurine 500 mg oral tablet (2 sources) take 1 capsule by mo [facility] once daily Taurine 500 MG 1 capsule Orally Once a day Active turmeric extract 500 mg oral capsule (2 sources) Turmeric 500 MG as directed Orally Active ubidecarenone 200 mg oral capsule (2 sources) take 1 capsule by mo uth every twenty-four hours CoQ10 200 MG 1 capsule with a meal Orally Once a day for 30 day(s) Active Vitamin C 1000 mg (2 sources) take 1 tablet by dom th once daily Vitamin C 1000 mg 1 tablet Orally Once a day Active Vitamin E 400 UNIT (2 sources) take 1 capsule by mo uth once daily Vitamin E 400 UNIT 1 capsule Orally Once a day Active Completed/Discontinued Medications Medication Drug Class(es) Dates Sig (Normalized) Sig (Original) acetaminophen 500 mg oral tablet (1 source) End: 05-16-2023 acetaminophen (TYLENOL EXTRA STRENGTH) 500 mg tablet Take 1,000 mg by mouth as needed. 0 05/16/2023 Discontinued Comment on above: Take 1,000 mg by dom th as needed. ascorbic acid 1000 mg oral tablet (3 sources) Vitamin C take 3 tablets by mouth three times weekly Ascorbic Acid (VITAMIN C) 1,000 mg tablet Take 3,000 mg by mouth 3 times a WEEK. 0 Active Comment on above: Take 3,000 mg by dom th 3 times a WEEK. aspirin 81 mg [...] above: Take 1 capsule by mo ut twice daily. Garlic preparation (1 source) Non-Standardized [...] on above: Take 1 capsule by mo [facility] once daily. losartan potassium 100 mg oral [...] Take 1 tablet by dom once daily. multivitamin (MULTIPLE VITAMINS) tablet (3 sources) take 1 tablet by mouth once daily multivitamin (MULTIPLE VITAMINS) tablet Take 1 tablet by mouth once daily. 0 Active Comment on above: Take 1 tablet by [facility] once daily. mupirocin 0.02 mg/mg topical ointment [...] prior to and including day of surgery. Zqaph-1-RPG-EPA-Fish Oil (FISH OIL) 1,000 mg (120 mg-180 mg) cap (3 sources) take 1 capsule by mouth once daily Yrncc-7-UWS-EPA-Fish Oil (FISH OIL) 1,000 mg (120 mg-180 [...] 50 mg by mouth once daily. Saw Protem 160 mg capsule (3 sources) take 1 capsule by mouth three times daily Saw Protem 160 mg capsule Take 160 mg by [...] 09-02-2022 Episodic Other aftercare (1 source) Other [facility] (current) drug therapy; Translations: [OTH GROUP HOME CURRENT DRUG THERAPY] Onset: 09-02-2022 Episodic Other [...] Test Name Value Interpretation Reference Range Facility Activated partial thrombopla stin time (aPTT) in platelet poor plasma by coagulation aOrdered By: Queta Tilley on 03-18-2024 aPTT Coag (PPP) [Time] 33.7 s 25.1-36.5 [facility] Comment on above: A hematocrit value g reater than 55% may lead to inaccurate results in coagulation testing. Patients having hematocrit values >55% require a special collection tube for coagulation studies. Please contact the laboratory at [phone] for redraw instructions. Alanine aminotransferase [En zymatic activity/volume] in Serum or PlasmaOrdered By: Queta Tilley on 03-18-2024 ALT [Catalytic activity/Vol] 22 U/L Normal 7-52 [facility] Comment on above: Performed By: #### C MP #### [address] Albumin [Mass/volume] in Ser um or Plasma by Bromocresol green (BCG) dye binding methoOrdered By: Quetapippa Tilley on 03-18-2024 Albumin BCG dye [Mass/Vol] 4.6 g/dL 3.5-5.7 [facility] Alkaline phosphatase [Enzyma tic activity/volume] in Serum or PlasmaOrdered By: Queta Jarek on 03-18-2024 ALP [Catalytic activity/Vol] 37 U/L Normal 34-104 [facility] Comment on above: Result Comment: PERF ORMED BY: [place] [address] PATHOLOGIST OIL MIXER HUGO AVALOS M.D. Performed By: #### C MP #### [address] Aspartate aminotransferase [ Enzymatic activity/volume] in Serum or PlasmaOrdered By: Queta Tilley on 03-18-2024 AST [Catalytic activity/Vol] 16 U/L Normal 13-39 [facility] Comment on above: Performed By: #### C MP #### [address] Automated basophil %Ordered By: Queta Tilley on 03-18-2024 Basophils/100 WBC (Bld) 0.6 % Normal . [facility] Comment on above: Performed By: #### C BC #### [address] Automated basophil countOrde red By: Queta Tilley on 03-18-2024 Basophils (Bld) [#/Vol] 0.1 10*3/uL Normal 0.0-0.2 [facility] Comment on above: Result Comment: PERF ORMED BY: [place] [address] PATHOLOGIST OIL MIXER HUGO AVALOS M.D. Performed By: #### C BC #### [address] Automated blood monocyte cou ntOrdered By: Queta Tilley on 03-18-2024 Monocytes (Bld) [#/Vol] 0.8 10*3/uL Normal 0.0-0.8 [facility] Comment on above: Performed By: #### C BC #### [address] Automated eosinophil %Ordere d By: Queta Jarek on 03-18-2024 Eosinophils/100 WBC (Bld) 0.8 % Normal . [facility] Comment on above: Performed By: #### C BC #### [address] Automated eosinophil countOr dered By: Queta Jarek on 03-18-2024 Eosinophils (Bld) [#/Vol] 0.1 10*3/uL Normal 0.0-0.45 [facility] Comment on above: Performed By: #### C BC #### [address] Automated monocyte %Ordered By: Queta Tilley on 03-18-2024 Monocytes/100 WBC (Bld) 8.0 % Normal . [facility] Comment on above: Performed By: #### C BC #### [address] Automated neutrophil %Ordere d By: Queta Tilley on 03-18-2024 Neutrophils/100 WBC (Bld) 64.7 % Normal . [facility] Comment on above: Performed By: #### C BC #### [address] Bilirubin Test strip Ql (U)O rdered By: Queta Tilley on 03-18-2024 Bilirubin Ql (U) Negative Negative [facility] Bilirubin.total [Mass/volume ] in Serum or PlasmaOrdered By: Queta Tilley on 03-18-2024 Bilirubin [Mass/Vol] 0.5 mg/dL Normal 0.3-1.0 [place] Comment on above: Performed By: #### C MP #### [address] Calcium [Mass/volume] in Ser um or PlasmaOrdered By: Queta Tilley on 03-18-2024 Calcium [Mass/Vol] 9.7 mg/dL Normal 8.6-10.3 [facility] Comment on above: Performed By: #### C MP #### [address] Carbon dioxide, total [Moles /volume] in Serum or PlasmaOrdered By: Queta Tilley on 03-18-2024 CO2 [Moles/Vol] 27.0 mmol/L Normal 21.0-31.0 [facility] Comment on above: Performed By: #### C MP #### [address] Chloride [Moles/volume] in S hafsa or PlasmaOrdered By: Queta Tilley on 03-18-2024 Chloride [Moles/Vol] 97 mmol/L Low 98-107 [place] Comment on above: Performed By: #### C MP #### [address] Color of Urine by AutoOrdere d By: Queta Tilley on 03-18-2024 Color (U) Yellow Normal Yellow [facility] Comment on above: Order Comment: Name Collection Type:: Clean-Voided Midstream Performed By: #### U A #### [address] Complete Blood Count Auto Di ffon 03-18-2024 Mean Corpuscular HGB Conc 33.6 g/dL Normal 32.5-35.6 [facility] Comment on above: Performed By: #### C BC #### [address] NRBC% 0.4 /100{WBC} Normal 0-0.5 [facility] Comment on above: Performed By: #### C BC #### [address] Comprehensive Metabolic Pane reji 03-18-2024 Albumin [Mass/Vol] 4.6 g/dL Normal 3.5-5.7 [facility] Comment on above: Performed By: #### C MP #### [place] [address] [place] GFR/1.73 sq M.predicted MDRD (S/P/Bld) [Vol rate/Area] mL/min/{1.73_m2} Normal [facility] Comment on above: Performed By: #### C MP #### [address] Creatinine [Mass/volume] in Serum or PlasmaOrdered By: Queta Tilley on 03-18-2024 Creatinine [Mass/Vol] 1.19 mg/dL Normal 0.70-1.30 [facility] Comment on above: Performed By: #### C MP #### [address] ECG 12 lead ECGon 03-18-2024 ECG 12 lead ECG [facility] [place] [address] [place] [address] Electrocardiograph Report Signed Patient: Amina Lim MR#: [id number] 4 : 1945 Acct:[id number] Age/Sex: 78 / M ADM Date: 03/18/24 Loc: Room: Type: [facility] Attending Dr: Queta Tilley PA-C Ordering Provider: Queta Tilley PA-C Date of Service: 03/18/2401/06/1057 ECG/ECG 12 lead ECG: Pre op Copies to: Test Reason : Blood Pressure : / mmHG Vent. Rate : 056 BPM Atrial Rate : 056 BPM P-R Int : 150 ms QRS Dur : 094 ms QT Int : 414 ms P-R-T Axes : 010 035 047 degrees QTc Int : 399 ms Sinus bradycardia Otherwise normal ECG No previous ECGs available Confirmed by NITIN HAMMONDS MD ([id number]) on 03/18/2024 3:08:02 PM Referred By: Electronically Signed By:NITIN HAMMONDS MD Transcribed By: MUS Signed By Nitin Hammonds MD 0 03/18/24 1508 Normal [facility] Erythrocyte distribution wid th [Ratio] by Automated countOrdered By: Queta Tilley on 03-18-2024 Erythrocyte distribution width (RBC) [Ratio] 14.1 % Normal 12.0-14.8 [facility] Comment on above: Performed By: #### C BC #### [facility] [address] Erythrocytes [#/volume] in B lood by Automated countOrdered By: uQeta Tilley on 03-18-2024 RBC (Bld) [#/Vol] 4.42 10*6/uL Normal 3.90-5.60 [facility] Comment on above: Performed By: #### C BC #### [facility] [address] Glucose [Mass/volume] in Ser um or PlasmaOrdered By: Queta Tilley on 03-18-2024 Glucose [Mass/Vol] 93 mg/dL Normal 70-100 [facility] Comment on above: ADA recommended refe rence rangeRandom Glucose Reference Range is dependent on time and content of last meal. Glucose of more than 200 mg/dL in a nonstressed, ambulatory subject supports the diagnosis of Diabetes Mellitus. Result Comment: [place] Glucose Reference Range is dependent on time and content of last meal. Glucose of more than 200 mg/dL in a nonstressed, ambulatory subject supports the diagnosis of Diabetes Mellitus. ADA recommended reference range Performed By: #### C MP #### [address] Glucose [Mass/volume] in Uri ne by Test stripOrdered By: Queta Tilley on 03-18-2024 Glucose Test strip (U) [Mass/Vol] Normal mg/dL Normal [facility] Hematocrit [Volume Fraction] of Blood by Automated countOrdered By: Queta Tilley on 03-18-2024 Hematocrit (Bld) [Volume fraction] 41.0 % Normal 38.8-50.0 [facility] Comment on above: Performed By: #### C BC #### [address] Hemoglobin Test strip Ql (U) Ordered By: Queta Tilley on 03-18-2024 Hemoglobin Ql (U) Negative Negative [facility] Hemoglobin [Mass/volume] in BloodOrdered By: Queta Tilley on 03-18-2024 Hemoglobin (Bld) [Mass/Vol] 13.8 g/dL Normal 13.0-17.0 [facility] Comment on above: Performed By: #### C BC #### [facility] [address] [place] [address] INR in Platelet poor plasma by Coagulation assayOrdered By: Queta Tilley on 03-18-2024 INR Coag (PPP) [Relative time] 0.9 {INR} Normal [facility] Comment on above: INR Therapeutic Rang e A) Pre- and Peroperative OAT started two weeks before surgery. NOT HIP SURGERY: 1.5 - 2.5 HIP SURGERY: 2 - 3B) Primary and secondary prevention of venous THROMBOSIS: 2 - 3C) Active venous thrombosis, pulmonary embolismand prevention of recurrent venous thrombosis: 2 - 3D) Prevention of arterial thromboembolismincluding patients with mechanical heart valves: 3 - 4.5 Result Comment: INR Therapeutic Range A) Pre- and Peroperative OAT started two weeks before surgery. NOT HIP SURGERY: 1.5 - 2.5 HIP SURGERY: 2 - 3 B) Primary and secondary prevention of venous THROMBOSIS: 2 - 3 C) Active venous thrombosis, pulmonary embolism and prevention of recurrent venous thrombosis: 2 - 3 D) Prevention of arterial thromboembolism including patients with mechanical heart valves: 3 - 4.5 Performed By: #### P T, PTT #### [facility] [address] [place] [address] [place] Ketones [Presence] in Urine by Test stripOrdered By: Queta Tilley on 03-18-2024 Ketones Ql (U) Negative Normal Negative [facility] Comment on above: Order Comment: Name Collection Type:: Clean-Voided Midstream Performed By: #### U A #### [facility] [address] [place] [address] [place] Leukocyte esterase [Presence ] in Urine by Test stripOrdered By: Queta Tilley on 03-18-2024 Leukocyte esterase Test strip Ql (U) Negative Normal Negative [facility] Comment on above: Order Comment: Name Collection Type:: Clean-Voided Midstream Performed By: #### U A #### [place] [address] [place] Leukocytes [#/volume] correc brady for nucleated erythrocytes in Blood by Automated counOrdered By: Queta Tilley on 03-18-2024 WBC corrected for nucl RBC Auto (Bld) [#/Vol] 9.4 10*3/uL 4.1-10.5 [facility] Leukocytes [#/volume] in Blo od by Automated countOrdered By: Queta Tilley on 03-18-2024 WBC (Bld) [#/Vol] 9.4 10*3/uL Normal 4.1-10.5 [facility] Comment on above: Performed By: #### C BC #### [address] Lymphocytes [#/volume] in Bl ood by Automated countOrdered By: Queta Tilley on 03-18-2024 Lymphocytes (Bld) [#/Vol] 2.4 10*3/uL Normal 1.00-4.8 [facility] Comment on above: Performed By: #### C BC #### [address] Lymphocytes/100 leukocytes i n Blood by Automated countOrdered By: Queta Tilley on 03-18-2024 Lymphocytes/100 WBC (Bld) 25.9 % Normal . [facility] Comment on above: Performed By: #### C BC #### [address] MCH [Entitic mass] by Automa brady countOrdered By: Queta Tilley on 03-18-2024 MCH (RBC) [Entitic mass] 31.2 pg Normal 27.5-35.2 [facility] Comment on above: Performed By: #### C BC #### [address] MCHC Auto (RBC) [Mass/Vol]Or dered By: Queta Tilley on 03-18-2024 MCHC (RBC) [Mass/Vol] 33.6 g/dL 32.5-35.6 [facility] MCV [Entitic volume] by Auto mated countOrdered By: Queta Tilley on 03-18-2024 MCV (RBC) [Entitic vol] 92.9 fL Normal 83.5-101 [facility] Comment on above: Performed By: #### C BC #### [address] Neutrophils [#/volume] in Bl ood by Automated countOrdered By: Queta Tilley on 03-18-2024 Neutrophils (Bld) [#/Vol] 6.1 10*3/uL Normal 1.8-7.7 [facility] Comment on above: Performed By: #### C BC #### [address] Nitrite Test strip Ql (U)Ord ered By: Queta Tilley on 03-18-2024 Nitrite Ql (U) Negative Negative [facility] No Panel InformationOrdered By: Queta Tilley on 03-18-2024 Estimated GFR (CKD-EPI) > 60.0 mL/Min [facility] Creatinine Clearance (Chem N/A [facility] Nucleated erythrocytes [Pres ence] in Blood by Automated countOrdered By: Queta Tilley on 03-18-2024 Nucleated RBC Auto Ql (Bld) 0.4 /100{WBC} 0-0.5 [facility] Partial Thromboplastin Timeo n 03-18-2024 aPTT Coag (Bld) [Time] 33.7 s Normal 25.1-36.5 [facility] Comment on above: Result Comment: A he matocrit value greater than 55% may lead to inaccurate results in coagulation testing. Patients having hematocrit values >55% require a special collection tube for coagulation studies. Please contact the laboratory at [phone] for redraw instructions. PERFORMED BY: [place] [address] PATHOLOGIST OIL MIXER HUGO AVALOS M.D. Performed By: #### P T, PTT #### [address] Platelet mean volume [Entiti c volume] in Blood by Automated countOrdered By: Queta Tilley on 03-18-2024 Platelet mean volume (Bld) [Entitic vol] 7.7 fL Normal 6.6-10.1 [facility] Comment on above: Performed By: #### C BC #### [address] Platelets [#/volume] in Bloo d by Automated countOrdered By: Queta Tilley on 03-18-2024 Platelets (Bld) [#/Vol] 220 10*3/uL Normal 150-450 [facility] Comment on above: Performed By: #### C BC #### [address] Potassium [Moles/volume] in Serum or PlasmaOrdered By: Queta Tilley on 03-18-2024 Potassium [Moles/Vol] 4.8 mmol/L Normal 3.5-5.1 [facility] Comment on above: Performed By: #### C MP #### [address] Protein Test strip (U) [Mass /Vol]Ordered By: Queta Tilley on 03-18-2024 Protein (U) [Mass/Vol] Negative Negative [facility] Protein [Mass/volume] in Ser um or PlasmaOrdered By: Queta Tilley on 03-18-2024 Protein [Mass/Vol] 6.9 g/dL Normal 6.4-8.9 [facility] Comment on above: Performed By: #### C MP #### [address] Prothrombin time (PT)Ordered By: Queta Tilley on 03-18-2024 PT Coag (PPP) [Time] 11.0 s Normal 9.0-12.9 [place] Comment on above: A hematocrit value g reater than 55% may lead to inaccurate results in coagulation testing. Patients having hematocrit values >55% require a special collection tube for coagulation studies. Please contact the laboratory at [phone] for redraw instructions. Result Comment: A he matocrit value greater than 55% may lead to inaccurate results in coagulation testing. Patients having hematocrit values >55% require a special collection tube for coagulation studies. Please contact the laboratory at [phone] for redraw instructions. Performed By: #### P T, PTT #### [address] Serum globulin measurement b y calculation (mass/volume)Ordered By: Queta Tilley on 03-18-2024 Globulin (S) [Mass/Vol] 2.3 g/dL Normal [facility] Comment on above: Performed By: #### C MP #### [address] Serum or plasma albumin/glob ulin mass ratioOrdered By: Queta Tilley on 03-18-2024 Albumin/Globulin [Mass ratio] 2.0 {ratio} [facility] Comment on above: Performed By: #### C MP #### [address] Serum or plasma anion gap de terminationOrdered By: Queta Tilley on 03-18-2024 Anion gap [Moles/Vol] 11.8 mmol/L Normal 6.0-15.0 [facility] Comment on above: Performed By: #### C MP #### [address] Sodium [Moles/volume] in Ser um or PlasmaOrdered By: Queta Tilley on 03-18-2024 Sodium [Moles/Vol] 131 mmol/L Low 136-145 [facility] Comment on above: Performed By: #### C MP #### [address] Specific gravity Test strip (U) [Rel density]Ordered By: Queta Tilley on 03-18-2024 Specific gravity (U) [Rel density] 1.022 1.001-1.[address] [facility] Urea nitrogen [Mass/volume] in Serum or PlasmaOrdered By: Queta Tilley on 03-18-2024 Urea nitrogen [Mass/Vol] 26 mg/dL High 7-25 [facility] Comment on above: Performed By: #### C MP #### [address] Urinalysison 03-18-2024 Bilirubin,Urine Negative Normal Negative [facility] Comment on above: Order Comment: Name Collection Type:: Clean-Voided Midstream Performed By: #### U A #### [address] [address] [place] Glucose Ql (U) Normal Normal Normal [facility] Comment on above: Order Comment: Name Collection Type:: Clean-Voided Midstream Performed By: #### U A #### [address] Nitrite,Urine Negative Normal Negative [facility] Comment on above: Order Comment: Name Collection Type:: Clean-Voided Midstream Performed By: #### U A #### [address] Occult Blood,Urine Negative Normal Negative [facility] Comment on above: Order Comment: Name Collection Type:: Clean-Voided Midstream Result Comment: PERF ORMED BY: [place] [address] PATHOLOGIST OIL MIXER HUGO AVALOS M.D. Performed By: #### U A #### [address] Protein,Urine Negative Normal Negative [facility] Comment on above: Order Comment: Name Collection Type:: Clean-Voided Midstream Performed By: #### U A #### [address] Specificy [place],Urine 1.022 Normal 1.001-1.03 0 [facility] Comment on above: Order Comment: Name Collection Type:: Clean-Voided Midstream Performed By: #### U A #### [address] Urobilinogen,Urine Normal Normal Normal [facility] Comment on above: Order Comment: Name Collection Type:: Clean-Voided Midstream Performed By: #### U A #### [address] Urine Cultureon 03-18-2024 Bacteria identified Cx Nom (U) No Growth 2 Days PERFORMED BY: [place] [address] PATHOLOGIST OIL MIXER HUGO AVALOS M.D. Normal [facility] Comment on above: Performed By: #### C UU #### [facility] [address] [place] [address] Urine appearanceOrdered By: Queta Tilley on 03-18-2024 Appearance (U) Clear Normal Clear [facility] Comment on above: Order Comment: Name Collection Type:: Clean-Voided Midstream Performed By: #### U A #### [facility] [address] [place] [address] Urobilinogen Test strip (U) [Mass/Vol]Ordered By: Queta Tilley on 03-18-2024 Urobilinogen (U) [Mass/Vol] Normal mg/dL Normal [facility] XR bonelength lower extremit yon 03-18-2024 XR bonelength lower extremity [facility] [place] [address] [place] [address] XRay Report Signed Patient: Amina Lim MR#: [id number] 4 : 1945 Acct:[id number] Age/Sex: 78 / M ADM Date: 03/18/24 Loc: Room: Type: [facility] Attending Dr: Queta Tilley PA-C Copies to: Queta Tilley PA-C Ordering Provider: Queta Tilley PA-C Date of Service: 03/18/24 XR/XR bonelength lower extremity: Z01.818 XR bonelength lower extremity 03/18/2024 11:28 AM SIGNS AND SYMPTOMS: Presurgical testing total right knee arthroplasty PROTOCOL: Frontal radiograph of the right femur, right tibia, and right fibula COMPARISON: None FINDINGS: There is narrowing of the medial weightbearing joint space and to lesser extent the lateral weightbearing joint space. This contributes to a degrees of varus angulation. No acute displaced fracture. No soft tissue swelling. XR/XR bonelength lower extremity IMPRESSION: There is narrowing of the medial weightbearing joint space and to lesser extent the lateral weightbearing joint space. This contributes to a degrees of varus angulation. Impression dictated by: Kelly Banegas M.D.03/18/2024 4:55 PM Dictation Location: [place] [address] Transcribed By: FRANCISCO JAVIER 03/18/241654 Dictated By: Kelly Banegas II, MD 03/18/241653 Signed By: 03/18/241654 Normal [facility] pH of Urine by Test stripOrd ered By: Queta Tilley on 03-18-2024 pH (U) 5.5 [pH] Normal 5.0-9.0 [facility] Comment on above: Order Comment: Name Collection Type:: Clean-Voided Midstream Performed By: #### U A #### [facility] [address] [place] [address] Office Visiton 11-14-2023 Follow-up visit [id number] Amian Lim Adriano 1945 [facility] Provider Department Center 11/14/2023 TAYLOR GARCIAS Family History Problem Relation Age of Onset Other Father Lupus Father Family Status - Relation Status Age at Father Level of Service:97796 SC OFFICE/OUTPATIENT ESTABLISHED MOD MDM 30 MIN Normal [facility] Office Visiton 10-02-2023 Follow-up visit [id number] Amina Lim Adriano 1945 M Date Provider Department Center 10/02/2023 TAYLOR GARCIAS Family History Problem Relation Age of Onset Other Father Lupus Father Family Status - Relation Status Age at Father Level of Service:08968 SC OFFICE/OUTPATIENT ESTABLISHED MOD MDM 30 MIN Normal [facility] Office Visiton 08-08-2023 Follow-up visit [id number] Amina Lim Adriano 1945 [facility] Provider Department Center 08/08/2023 PARI COOLEY Family History Problem Relation Age of Onset Other Father Lupus Father Family Status - Relation Status Age at Father Level of Service:87097 SC OFFICE/OUTPATIENT NEW MODERATE MDM 45-59 MINUTES Normal [facility] 36on 07-17-2023 36 Basia, can you please get this patient scheduled for a telemed with Dr. Escalante ([facility]) next available?? Thank you! Normal [facility] 36on 07-13-2023 36 Patient called to kane johnson you aware that he's had several episodes [...] stress test is now uploaded into his senior media director for your review. Please advise. Thanks. Normal [facility] 25(OH)D3 [facility] 2022 25-hydroxyvitamin D3 [Mass/Vol] 37.6 ng/mL Normal 31.0-80.0 [facility] Comment on above: Order Comment: Gianna ball Type: BLOOD SPECIMEN Ordering Facility: [facility] Address: [address] [place] [address] Result Comment: Clas sification of 25 OH Vitamin D status: Deficiency/Insufficiency: < or = 30 ng/ml. Sufficiency/Optimal Levels: 31-80 ng/mL Toxicity: > 100 ng/mL. Test performed by chemiluminescent immunoassay. Performed By: #### 1 989-3 #### [facility] CLIA [id number] 9500 [facility] [address] STATES OF [facility] CBC panel Auto (Bld)on 06-14 Erythrocyte distribution width (RBC) [Ratio] 13.8 % Normal 11.5-15.0 [facility] Comment on above: Order Comment: Gianna ball Type: BLOOD SPECIMEN Ordering Facility: [facility] Address: [address] [place], [place] [address] Performed By: #### 5 8410-2 #### [facility] CLIA [id number] [address] [place] [address] Hematocrit (Bld) [Volume fraction] 40.1 % Normal 39.0-51.0 [facility] Comment on above: Order Comment: Gianna ball Type: BLOOD SPECIMEN Ordering Facility: [facility] Address: [address] [place] [address] Performed By: #### 5 8410-2 #### [facility] CLIA [id number] [address] [place] [address] Hemoglobin (Bld) [Mass/Vol] 13.6 g/dL Normal 13.0-17.0 [facility] Comment on above: Order Comment: Speci men Type: BLOOD SPECIMEN Ordering Facility: [facility] Address: [address] [place] [address] Performed By: #### 5 8410-2 #### [facility] CLIA [id number] [address] [place] [address]853 MCH (RBC) [Entitic mass] 30.8 pg Normal 26.0-34.0 [facility] Comment on above: Order Comment: Speci men Type: BLOOD SPECIMEN Ordering Facility: [facility] Address: [address] [place] [address] Performed By: #### 5 8410-2 #### [facility] CLIA [id number] [address] [place] [address] 37773 MCHC (RBC) [Mass/Vol] 33.9 g/dL Normal 30.5-36.0 [facility] Comment on above: Order Comment: Speci men Type: BLOOD SPECIMEN Ordering Facility: [facility] Address: [address] [place] [address] Performed By: #### 5 8410-2 #### [facility] CLIA [id number] [address] [place] [address] 07155 MCV (RBC) [Entitic vol] 90.7 fL Normal 80.0-100.0 [facility] Comment on above: Order Comment: Speci men Type: BLOOD SPECIMEN Ordering Facility: [facility] Address: [address] [place] [address] Performed By: #### 5 8410-2 #### [facility] CLIA [id number] [address] [place] [address]1693 Nucleated RBC (Bld) [#/Vol] 10*3/uL Normal <0.01 [facility] Comment on above: Order Comment: Speci men Type: BLOOD SPECIMEN Ordering Facility: [facility] Address: [address] [place] [address] Performed By: #### 5 8410-2 #### [facility] CLIA [id number] [address] [place] [address] Platelet mean volume (Bld) [Entitic vol] 9.4 fL Normal 9.0-12.7 [facility] Comment on above: Order Comment: Speci men Type: BLOOD SPECIMEN Ordering Facility: [facility] Address: [address] [place] [address] Performed By: #### 5 8410-2 #### [facility] CLIA [id number] [address] [place] [address]23 Platelets (Bld) [#/Vol] 202 10*3/uL Normal 150-400 [facility] Comment on above: Order Comment: Speci men Type: BLOOD SPECIMEN Ordering Facility: [facility] Address: [address] [place] [address] Performed By: #### 5 8410-2 #### [facility] CLIA [id number] [address] [place] [address] 95338 RBC (Bld) [#/Vol] 4.42 10*6/uL Normal 4.20-6.[address] [facility] Comment on above: Order Comment: Speci men Type: BLOOD SPECIMEN Ordering Facility: [facility] Address: [address] [place] [address] Performed By: #### 5 8410-2 #### [facility] CLIA [id number] [address] [place] [address] 46389 WBC (Bld) [#/Vol] 9.80 10*3/uL Normal 3.70-11.[address] [facility] Comment on above: Order Comment: Speci men Type: BLOOD SPECIMEN Ordering Facility: [facility] Address: [address] [place] [address] Performed By: #### 5 8410-2 #### [facility] CLIA [id number] [address] [place] [address]99 IMMUNOFIXATION SCREEN, SERUM on 06-14-2023 INTERPRETATION (MPA) Atypical restricted bands are present in the IgG and kappa regions. Consistent with IgG kappa monoclonal gammopathy. Normal [facility] Comment on above: Order Comment: Speci men Type: BLOOD SPECIMEN Ordering Facility: [facility] Address: [address] [place] [address] Performed By: #### I FESC #### [facility] CLIA [id number] [facility] [address] MPA RESULT M protein is present. Abnormal No M protein is identified . [facility] Comment on above: Order Comment: Speci men Type: BLOOD SPECIMEN Ordering Facility: [facility] Address: [address] [place] [address] Performed By: #### I FESC #### [facility] CLIA [id number] [facility] [address] OF [place] STAFF REVIEW (MPA) Reviewed by Dr. Gwen Valencia MD Normal [facility] Comment on above: Order Comment: Speci men Type: BLOOD SPECIMEN Ordering Facility: [facility] Address: [address] [place] [address] Performed By: #### I FESC #### [facility] CLIA [id number] [facility] [place] [address] [place] IMMUNOGLOBULINS GAMon 2022 IgA [Mass/Vol] 20 mg/dL Low 70-400 [facility] Comment on above: Order Comment: Speci men Type: BLOOD SPECIMEN Ordering Facility: [facility] Address: [address] [place] [address] Performed By: #### S ERIMM #### [facility] CLIA [id number] [address] [place] [address] [place] IgG [Mass/Vol] 1106 mg/dL Normal 700-1600 [facility] Comment on above: Order Comment: Speci men Type: BLOOD SPECIMEN Ordering Facility: [facility] Address: [address] [place] [address] Performed By: #### S ERIMM #### [facility] CLIA [id number] [address] [place] [address] [place] IgM [Mass/Vol] 14 mg/dL Low 40-230 [facility] Comment on above: Order Comment: Speci men Type: BLOOD SPECIMEN Ordering Facility: [facility] Address: [address] [place] [address] Performed By: #### S ERIMM #### [facility] CLIA [id number] [address] [place] [address] [place] KAPPA/RHODES,FREE,SERon 2022 Immunoglobulin light chains.kappa.free (S) [Mass/Vol] 20.2 mg/L High 3.3-19.4 [facility] Comment on above: Order Comment: Speci men Type: BLOOD SPECIMEN Ordering Facility: [facility] Address: [address] [place] [address] Result Comment: Rare ly, increased serum free light chains levels may not be detected or accurately quantified due to prozone phenomenon or in high viscosity samples using this immunoturbidimetric assay. Correlation with other laboratory results and clinical findings is recommended. The Mango Free Light Chain was performed using the Binding Site Optilite immunoturbidimetric method. Result obtained with different assay methods or kits cannot be used interchangeably. Performed By: #### K LFRS #### [facility] CLIA [id number] [address] [place] [address] [place] Immunoglobulin light chains.kappa/Immunoglo bulin light chains.lambda (S) [Mass ratio] 2.13 High 0.26-1.65 [facility] Comment on above: Order Comment: Speci men Type: BLOOD SPECIMEN Ordering Facility: [facility] Address: [address] [place] [address] Performed By: #### K LFRS #### [facility] CLIA [id number] [address] [place] [address] [place] Immunoglobulin light chains.lambda.free [Mass/Vol] 9.5 mg/L Normal 5.7-26.3 [facility] Comment on above: Order Comment: Speci men Type: BLOOD SPECIMEN Ordering Facility: [facility] Address: [address] [place] [address] Result Comment: Rare ly, increased serum free [...] interchangeably. Performed By: #### K LFRS #### [facility] CLIA [id number] [address] [place] [address] [place] PTH-Intact SerPl-ncon 05-18 Parathyrin.intact [Mass/Vol] 38 pg/mL Normal 15-65 [facility] Comment on above: Order Comment: Speci men Type: BLOOD SPECIMEN Ordering Facility: [facility] Address: [address] [place] [address] Performed By: #### 2 731-8 #### [facility] CLIA [id number] [address] [place] [address] [place] Prot/Creat Uron 06-14-2023 Protein/Creatinine (U) [Mass ratio] mg/g Normal <0.15 [facility] Comment on above: Order Comment: Speci men Type: URINE SPECIMEN Ordering Facility: [facility] Address: [address] [place] [address] Result Comment: Adul t Proteinuria Categories: <0.15 mg/mg is considered normal to mildly increased 0.15 - 0.50 mg/mg is considered moderately increased >0.50 mg/mg is considered severely increased KDIGO. (2013). KDIGO 2012 Clinical Practice Guideline for the Evaluation and Management of Chronic Kidney Disease. Official Journal of the International Society of Nephrology, 3(1), 1-150. Performed By: #### 2 4356-8 #### [facility] CLIA [id number] [address] [place] [address] [place] Protein/Creatinine (U) [Mass ratio]on 06-14-2023 Creatinine (U) [Mass/Vol] 45.4 mg/dL Normal 20.0-300.0 [facility] Comment on above: Order Comment: Speci men Type: URINE SPECIMEN Ordering Facility: [facility] Address: [address] [place] [address] Performed By: #### 2 4356-8 #### [facility] CLIA [id number] [address] [place] [address] [place] Protein (U) [Mass/Vol] mg/dL Normal 0-20 [facility] Comment on above: Order Comment: Speci men Type: URINE SPECIMEN Ordering Facility: [facility] Address: [address] [place] [address] Performed By: #### 2 4356-8 #### [facility] CLIA [id number] [address] [place] [address] [place] Renal function 2000 panelon 06-14-2023 Albumin [Mass/Vol] 4.6 g/dL Normal 3.9-4.9 [facility] Comment on above: Order Comment: Speci men Type: URINE SPECIMEN Ordering Facility: [facility] Address: [address] Performed By: #### 2 4356-8 #### [facility] CLIA [id number] [address] [place] [address] [place] Anion gap [Moles/Vol] 9 mmol/L Normal 9-18 [facility] Comment on above: Order Comment: Speci men Type: URINE SPECIMEN Ordering Facility: [facility] Address: [address] Performed By: #### 2 4356-8 #### [facility] CLIA [id number] [address] [place] [address] [place] Calcium [Mass/Vol] 9.5 mg/dL Normal 8.5-10.2 [facility] Comment on above: Order Comment: Speci men Type: URINE SPECIMEN Ordering Facility: [facility] Address: [address] [place] [address] Performed By: #### 2 4356-8 #### [facility] CLIA [id number] [address] [place] [address] [place] Chloride [Moles/Vol] 97 mmol/L Normal 97-105 [facility] Comment on above: Order Comment: Speci men Type: URINE SPECIMEN Ordering Facility: [facility] Address: [address] [place] [address] Performed By: #### 2 4356-8 #### [facility] CLIA [id number] [address] [place] [address] [place] CO2 [Moles/Vol] 28 mmol/L Normal 22-30 [facility] Comment on above: Order Comment: Speci men Type: URINE SPECIMEN Ordering Facility: [facility] Address: [address] [place], [place] [address] Performed By: #### 2 4356-8 #### [facility] CLIA [id number] [address] [place] [address] [place] Creatinine [Mass/Vol] 1.47 mg/dL High 0.73-1.22 [facility] Comment on above: Order Comment: Speci men Type: URINE SPECIMEN Ordering Facility: [facility] Address: [address] [place], [place] [address] Performed By: #### 2 4356-8 #### [facility] CLIA [id number] [address] [place] [address] [place] Creatinine and Glomerular filtration rate.predicted panel (S/P/Bld) 49 mL/min/1.73m??? Low >=60 [facility] Comment on above: Order Comment: Gianna ball Type: URINE SPECIMEN Ordering Facility: [facility] Address: [address] [place] [address] Result Comment: Shira mated Glomerular Filtration Rate [...] GFR. Performed By: #### 2 4356-8 #### [facility] CLIA [id number] [address] [place] [address] [place] Glucose [Mass/Vol] 112 mg/dL High 74-99 [facility] Comment on above: Order Comment: Gianna ball Type: URINE SPECIMEN Ordering Facility: [facility] Address: [address] [place] [address] Result Comment: The [place] Diabetes Association (ADA) provides guidance for cutoff [...] Standards of Medical Care in Diabetes 2016, [place] Diabetes Association. Diabetes Care. 2016.39(Suppl 1). Performed By: #### 2 4356-8 #### [facility] CLIA [id number] [address] [place] [address] [place] Phosphate [Mass/Vol] 3.3 mg/dL Normal 2.7-4.8 [facility] Comment on above: Order Comment: Gianna ball Type: URINE SPECIMEN Ordering Facility: [facility] Address: [address] Performed By: #### 2 4356-8 #### [facility] CLIA [id number] [address] [place] [address] [place] Potassium [Moles/Vol] 4.2 mmol/L Normal 3.7-5.1 [facility] Comment on above: Order Comment: Speci men Type: URINE SPECIMEN Ordering Facility: [facility] Address: [address] [place] [address] Performed By: #### 2 4356-8 #### [facility] CLIA [id number] [address] [place] [address] [place] Sodium [Moles/Vol] 134 mmol/L Low 136-144 [facility] Comment on above: Order Comment: Speci men Type: URINE SPECIMEN Ordering Facility: [facility] Address: [address] [place] [address] Performed By: #### 2 4356-8 #### [facility] CLIA [id number] [address] [place] [address] [place] Urea nitrogen [Mass/Vol] 25 mg/dL High 9-24 [facility] Comment on above: Order Comment: Speci men Type: URINE SPECIMEN Ordering Facility: [facility] Address: [address] Performed By: #### 2 4356-8 #### [facility] CLIA [id number] [address] [place] [address] [place] Urinalysis complete panel (U )on 06-14-2023 Bilirubin Ql (U) Negative Normal Negative [facility] Comment on above: Order Comment: Speci men Type: URINE SPECIMEN Ordering Facility: [facility] Address: [address] [place] [address] Performed By: #### 2 4356-8 #### [facility] CLIA [id number] [address] [place] [address] [place] Clarity (Unsp spec) Clear Normal Clear [facility] Comment on above: Order Comment: Speci men Type: URINE SPECIMEN Ordering Facility: [facility] Address: [address] Performed By: #### 2 4356-8 #### [facility] CLIA [id number] [address] [place] [address] [place] Color (U) Light Yellow Normal Yellow [facility] Comment on above: Order Comment: Speci men Type: URINE SPECIMEN Ordering Facility: [facility] Address: [address] Performed By: #### 2 4356-8 #### [facility] CLIA [id number] [address] [place] [address] [place] Glucose Test strip (U) [Mass/Vol] Negative Normal Trace, Negative [facility] Comment on above: Order Comment: Speci men Type: URINE SPECIMEN Ordering Facility: [facility] Address: [address] Performed By: #### 2 4356-8 #### [facility] CLIA [id number] [address] [place] [address] [place] Hemoglobin Ql (U) Negative Normal Negative, Trace [facility] Comment on above: Order Comment: Speci men Type: URINE SPECIMEN Ordering Facility: [facility] Address: [address] [place] [address] Performed By: #### 2 4356-8 #### [facility] CLIA [id number] [address] [place] [address] [place] Ketones Ql (U) Negative Normal Trace, Negative [facility] Comment on above: Order Comment: Speci men Type: URINE SPECIMEN Ordering Facility: [facility] Address: [address] [place] [address] Performed By: #### 2 4356-8 #### [facility] CLIA [id number] [address] [place] [address] [place] Leukocyte esterase Test strip Ql (U) Negative Normal Negative, 25 Bubba/uL [facility] Comment on above: Order Comment: Speci men Type: URINE SPECIMEN Ordering Facility: [facility] Address: [address] [place] [address] Performed By: #### 2 4356-8 #### [facility] CLIA [id number] [address] [place] [address] [place] Nitrite Ql (U) Negative Normal Negative [facility] Comment on above: Order Comment: Speci men Type: URINE SPECIMEN Ordering Facility: [facility] Address: [address] [place] [address] Performed By: #### 2 4356-8 #### [facility] CLIA [id number] [address] [place] [address] [place] pH (U) 6.5 [pH] Normal 5.0-8.0 [facility] Comment on above: Order Comment: Speci men Type: URINE SPECIMEN Ordering Facility: [facility] Address: [address] [place] [address] Performed By: #### 2 4356-8 #### [facility] CLIA [id number] [facility] [place] [address] [place] Protein (U) [Mass/Vol] Negative Normal Trace , Negative [facility] Comment on above: Order Comment: Speci men Type: URINE SPECIMEN Ordering Facility: [facility] Address: [address] [place] [address] Performed By: #### 2 4356-8 #### [facility] CLIA [id number] [address] [place] [address] [place] RBC LM.HPF (Urine sed) [#/Area] 0-3 /HPF Normal 0-3 /HPF [facility] Comment on above: Order Comment: Speci men Type: URINE SPECIMEN Ordering Facility: [facility] Address: [address] [place] [address] Performed By: #### 2 4356-8 #### [facility] CLIA [id number] [address] [place] [address] [place] [facility] Specific gravity (U) [Rel density] 1.012 Normal 1.005-1.03 0 [facility] Comment on above: Order Comment: Speci men Type: URINE SPECIMEN Ordering Facility: [facility] Address: [address] [place] [address] Performed By: #### 2 4356-8 #### [facility] CLIA [id number] [address] [place] [address] Urobilinogen Ql (U) Negative Normal Negative [facility] Comment on above: Order Comment: Speci men Type: URINE SPECIMEN Ordering Facility: [facility] Address: [address] [place] [address] Performed By: #### 2 4356-8 #### [facility] CLIA [id number] [address] [place] [address] [place] WBC LM.HPF (Urine sed) [#/Area] 0-5 /HPF Normal 0-5 /HPF [facility] Comment on above: Order Comment: Speci men Type: URINE SPECIMEN Ordering Facility: [facility] Address: [address] [place] [address] Performed By: #### 2 4356-8 #### [facility] CLIA [id number] [address] [place] [address] [place] Office Visiton 06-06-2023 Follow-up visit [id number] Amina Lim 1945 M Date Provider Department Center 06/06/2023 Radha6[facility] Family History Problem Relation Age of Onset Other Father Lupus Father Family Status - Relation Status Age at Father Level of Service:25915 SC OFFICE/OUTPATIENT NEW MODERATE MDM 45-59 MINUTES Normal [facility] CNOVon 05-16-2023 CNOV Office Visit (KIDFRW ) -- AMINA LIM ([id number]) 1945 M Date Time Provider Department 05/16/23 9:20 AM LYNDSAY SALGADO During your visit today, we recorded the following information about you: Pulse Blood pressure Weight Height 43/minute 171/77 92.5 kg 1.791 m Lyndsay Salgado DO 05/16/2023 10:07 AM Signed [facility] NEPHROLOGY AND HYPERTENSION [facility] [facility] SERV[facility] DATE: 05/16/2023 [...] III. Last labs in our system from 2018. Creatinine 1.2 at that time. Diclofenac daily at that time. Currently on Diclofenac 25 mg BID. Patient arrived without any labs. Patient states that he was previously following with a logistics operations director that went over his labs every visit. States that his renal function was worsening and he was taken off a water pill that improved his renal function. His logistics operations director stopped seeing patients in the office and [...] Take 1 tablet by mouth once daily. Ndobo-8-UIB-EPA-Fish Oil (FISH OIL) 1,000 mg (120 mg-180 mg) cap Take 1 g by mouth once daily. Lecithin 1,200 mg cap Take 1 capsule by mouth once daily. lovastatin (MEVACOR) 20 mg tablet Take 20 mg by mouth daily at bedtime. multivitamin (MULTIPLE VITAMINS) tablet Take 1 tablet by mouth once daily. Saw Protem 160 mg capsule Take 160 mg by [...] No c (more content not included)... Normal [facility] XR KNEE DUSTIN 3 Von 03-15-2023 XR KNEE DUSTIN 3 V EXAM: XR KNEE DUSTIN 3 V HISTORY: Osteoarthritis COMPARISON: None. TECHNIQUE: 3 views FINDINGS: There is no acute fracture or dislocation. There are mild degenerative changes. The soft tissues are unremarkable. IMPRESSION: Mild degenerative changes as above. Electronically authenticated by: KELLY LARSON Date: 2023-03-15 12:38 Normal [facility] Covid-19 PCR (CVDTB)on 09-15 SARS-CoV-2 (COVID-19) RNA DHARA+probe Ql (Unsp spec) Not detected Normal NOT DETECTED [facility] Comment on above: Result Comment: When diagnostic [...] for this test is supported by the Tyre Finisher And Examiner of Health and Human Service's declaration that [...] longer be used). Performed By: #### C VDTB ####[facility] [address] [place] [address]Dr. Xena Pickard INFLUENZA A AND B AGon 10-03 INFLUANEGH SEE BELOW Normal [facility] Comment on above: Result Comment: Nega tive for Flu A protein angiten. Infection due to Flu A cannot be ruled out. Flu A angiten in the sample may be below the detection limit of the test. Performed By: #### I NFLUAB #### [facility] [address] [place] [address] Dr. [facility] SEE BELOW Normal [facility] Comment on above: Result Comment: Nega tive for Flu B protein antigen. Infection due to Flu B cannot be ruled out. Flu B antigen in the sample may be below the detection limit of the test. Performed By: #### I NFLUAB #### [facility] [address] [place] [address] Dr. Xena Pickard INFLUENZA A AG Negative Normal NEGATIVE SEE COMMENT [facility] Comment on above: Performed By: #### I NFLUAB #### [facility] [address] [place] [address] Dr. Xena Pickard INFLUENZA B AG Negative Normal NEGATIVE SEE COMMENT [facility] Comment on above: Performed By: #### I NFLUAB #### [facility] [address] [place] [address] Dr. Xena Pickard INTERNAL CONTROLS Within Normal Limits Normal Wi thin Normal Limits [facility] Comment on above: Performed By: #### I NFLUAB #### [facility] [address] [place] [address] Dr. Xena Pickard INSULINon 09-02-2022 Insulin 14.1 uIU/mL Normal 2.6-24.9 [facility] Comment on above: Performed By: #### I NSULIN ####[facility] [address] [place] [address]Dr. Xena Pickard PTH INTACTon 09-02-2022 PTH, Intact 14 pg/mL Critically low 15-65 [facility] Comment on above: Performed By: #### P THINT #### [facility] [address] [address] [address] Xena Pickard CBC AUTO DIFFon 09-01-2022 BASO # 0.0 103/ul Normal 0.0-0.1 [facility] Comment on above: Performed By: #### C BC #### [facility] [address] [place] [address] Dr. Xena Pickard Basophils/100 WBC (Bld) 0.6 % Normal 0.2-2.0 [facility] Comment on above: Performed By: #### C BC #### [facility] [address] [place] [address] Dr. Xena Pickard EO # 0.2 103/ul Normal 0.0-0.7 [facility] Comment on above: Performed By: #### C BC #### [facility] [address] [place] [address] Dr. Xena Pickard Eosinophils/100 WBC (Bld) 2.5 % Normal 0.9-7.0 [facility] Comment on above: Performed By: #### C BC #### [facility] [address] [place] [address] Dr. Xena Pickard Erythrocyte distribution width (RBC) [Ratio] 13.5 % Normal 11.0-15.0 [facility] Comment on above: Performed By: #### C BC #### [facility] [address] [place] [address] Dr. Xena Pickard Hematocrit (Bld) [Volume fraction] 38.3 % Critically low 42.0-54.0 [facility] Comment on above: Performed By: #### C BC #### [facility] [address] [place] [address] Dr. Xena Pickard Hemoglobin (Bld) [Mass/Vol] 13.0 g/dL Critically low 14.0-18.0 [facility] Comment on above: Performed By: #### C BC #### [facility] [address] [place] [address] Dr. Xena Pickard IG # 0.03 10e3/ul Normal 0.00-0.03 [facility] Comment on above: Performed By: #### C BC #### [facility] [address] [place] [address] Dr. Xena Pickard IG % 0.4 % Normal 0.0-0.5 [facility] Comment on above: Performed By: #### C BC #### [facility] [address] [place] [address] Dr. Xena Pickard LYMPH # 2.2 103/ul Normal 1.2-3.8 [facility] Comment on above: Performed By: #### C BC #### [facility] [address] [place] [address] Dr. Xena Pickard Lymphocytes/100 WBC (Bld) 31.5 % Normal 20.5-60.0 [facility] Comment on above: Performed By: #### C BC #### [facility] [address] [place] [address] Dr. Xnea Pickard MANUAL DIFF REQ NO Normal [facility] Comment on above: Performed By: #### C BC #### [facility] [address] [place] [address] Dr. Xena Pickard MCH (RBC) [Entitic mass] 30.5 pg Normal 25.9-34.0 [facility] Comment on above: Performed By: #### C BC #### [facility] [address] [place] [address] Dr. Xena Pickard MCHC (RBC) [Mass/Vol] 33.9 g/dL Normal 29.9-35.2 [facility] Comment on above: Performed By: #### C BC #### [facility] [address] [place] [address] Dr. Xena Pickard MCV (RBC) [Entitic vol] 89.9 fL Normal 80.0-94.0 [facility] Comment on above: Performed By: #### C BC #### [facility] [address] [address] [address] Xena Pickard MONO # 0.6 103/ul Normal 0.3-0.8 [facility] Comment on above: Performed By: #### C BC #### [facility] [address] [address] [address] Xena Pickard Monocytes/100 WBC (Bld) 8.2 % Normal 1.7-12.0 [facility] Comment on above: Performed By: #### C BC #### [facility] [address] [address] [address] Xena Pickard NEUT # 4.0 103/ul Normal 1.4-6.5 [facility] Comment on above: Performed By: #### C BC #### [facility] [address] [address] [address] Xena Pickard Neutrophils/100 WBC (Bld) 56.8 % Normal 43.0-75.0 [facility] Comment on above: Performed By: #### C BC #### [facility] [address] [address] [address] Xena Pickard Platelet mean volume (Bld) [Entitic vol] 10.2 fL Normal 9.5-13.5 [facility] Comment on above: Performed By: #### C BC #### [facility] [address] [address] [address] Xena Pickard PLT 185 103/ul Normal 150-450 [facility] Comment on above: Performed By: #### C BC #### [facility] [address] [address] [address] Xena Pickard RBC 4.26 106/ul Critically low 4.70-6.10 [facility] Comment on above: Performed By: #### C BC #### [facility] [address] [address] [address] Xena Pickard WBC 7.1 103/ul Normal 4.0-11.0 [facility] Comment on above: Performed By: #### C BC #### [facility] [address] [address] [address] Xena Pickard GLYCOHEMOGLOBIN A1Con 2021 ADA RECOMMENDATION SEE BELOW Normal [facility] Comment on above: Result Comment: ADA RECOMMENDED LIMIT 4.0 - 6.0 ADA THERAPEUTIC TARGET < 7.0 ACTION SUGGESTED > 7.0 Performed By: #### A 1C #### [facility] [address] [place] [address] Dr. Xena Pickard Glucose [Mass/Vol] 120 mg/dL Normal [facility] Comment on above: Performed By: #### A 1C #### [facility] [address] [place] [address] Dr. Xena Pickard HbA1c (Bld) [Mass fraction] 5.8 % Normal 4.5-6.2 [facility] Comment on above: Performed By: #### A 1C #### [facility] [address] [place] [address] Dr. Xena Pickard LIPID PROFILEon 09-01-2022 CHOL-HDL RATIO NORM SEE BELOW Normal [facility] Comment on above: Result Comment: 3.3 - 4.4 LOW RISK 4.4 - 7.1 AVERAGE RISK 7.1 - 11.0 MODERATE RISK >11.0 HIGH RISK Performed By: #### L IPID, URIC, CMP #### [facility] [address] [place] [address] Dr. Xena Pickard Cholesterol [Mass/Vol] 166 mg/dL Normal <=200 [facility] Comment on above: Performed By: #### L IPID, URIC, CMP #### [facility] [address] [place] [address] Dr. Xena Pickard Cholesterol in HDL [Mass/Vol] 52 mg/dL Normal 40-60 [facility] Comment on above: Performed By: #### L IPID, URIC, CMP #### [facility] [address] [place] [address] Dr. Xena Pickard Cholesterol in LDL [Mass/Vol] 100.8 mg/dL Normal [facility] Comment on above: Performed By: #### L IPID, URIC, CMP #### [facility] [address] [address] [address] Xena Pickard Cholesterol.total/Chol esterol in HDL [Mass ratio] 3.2 {ratio} Normal [facility] Comment on above: Performed By: #### L IPID, URIC, CMP #### [facility] [address] [address] [address] Xena Pickard HDL NORMAL > or = 60 mg/dl - LO W CARDIOVASCULAR RISK <40 mg/dl - HIGH CARDIOVASCULAR RISK Normal [facility] Comment on above: Performed By: #### L IPID, URIC, CMP #### [facility] [address] [address] [address] Xena Pickrad LDL CALC NORMAL SEE BELOW Normal [facility] Comment on above: Result Comment: <100 mg/dl OPTIMAL 100 - 129 mg/dl NEAR OR ABOVE OPTIMAL 130 - 159 mg/dl BORDERLINE HIGH 160 - 189 mg/dl HIGH >190 mg/dl VERY HIGH Performed By: #### L IPID, URIC, CMP #### [facility] [address] [address] [address] Xena Pickard Triglyceride [Mass/Vol] 66 mg/dL Normal <=150 [facility] Comment on above: Performed By: #### L IPID, URIC, CMP #### [facility] [address] [address] [address] Xena Pickard VLDL CALC 13.2 mg/dL Normal [facility] Comment on above: Performed By: #### L IPID, URIC, CMP #### [facility] [address] [address] [address] Xena Pickard PHOSPHORUSon 09-01-2022 Phosphate [Mass/Vol] 3.3 mg/dL Normal 2.6-4.7 [facility] Comment on above: Performed By: #### P HOS ####[facility] [address] [address]Dr. Xena Pickard PROF 14(COMP METB)on 022 Albumin [Mass/Vol] 3.9 g/dL Normal 3.4-5.0 [facility] Comment on above: Performed By: #### L IPID, URIC, CMP #### [facility] [address] [address] [address] Xena Pickard Albumin/Globulin [Mass ratio] 1.2 {ratio} Normal [facility] Comment on above: Performed By: #### L IPID, URIC, CMP #### [facility] [address] [address] [address] Xena Pickard ALP [Catalytic activity/Vol] 44 U/L Critically low 46-116 [facility] Comment on above: Performed By: #### L IPID, URIC, CMP #### [facility] [address] [address] [address] Xena Pickard ALT [Catalytic activity/Vol] 38 U/L Normal 16-63 [facility] Comment on above: Performed By: #### L IPID, URIC, CMP #### [facility] [address] [place] [address] Dr. Xena Pickard Anion gap [Moles/Vol] 12.3 mmol/L Normal [facility] Comment on above: Performed By: #### L IPID, URIC, CMP #### [facility] [address] [place] [address] Dr. Xena Pickard AST [Catalytic activity/Vol] 16 U/L Normal 15-37 [facility] Comment on above: Performed By: #### L IPID, URIC, CMP #### [facility] [address] [place] [address] Dr. Xena Pickard Bilirubin [Mass/Vol] 0.5 mg/dL Normal 0.2-1.0 [facility] Comment on above: Performed By: #### L IPID, URIC, CMP #### [facility] [address] [address] [address] Xena Pickard Calcium [Mass/Vol] 8.7 mg/dL Normal 8.5-10.1 [facility] Comment on above: Performed By: #### L IPID, URIC, CMP #### [facility] [address] [place] [address] Dr. Xena Pickard Chloride [Moles/Vol] 101 mmol/L Normal 98-107 [facility] Comment on above: Performed By: #### L IPID, URIC, CMP #### [facility] [address] [place] [address] Dr. Xena Pickard CO2 [Moles/Vol] 26.8 mmol/L Normal 21.0-32.0 [facility] Comment on above: Performed By: #### L IPID, URIC, CMP #### [facility] [address] [place] [address] Dr. Xena Pickard Creatinine [Mass/Vol] 1.41 mg/dL Critically high 0.70-1.30 [facility] Comment on above: Performed By: #### L IPID, URIC, CMP #### [facility] [address] [place] [address] Dr. Xena Pickard EGFR-AF GERMAN 59 mL/min/1.73m2 Critically low >=60 [facility] Comment on above: Performed By: #### L IPID, URIC, CMP #### [facility] [address] [place] [address] Dr. Xena Pickard EGFR-NON AF GERMAN 49 mL/min/1.73m2 Critically low >=60 [facility] Comment on above: Performed By: #### L IPID, URIC, CMP #### [facility] [address] [place] [address] Dr. Xena Pickard Globulin (S) [Mass/Vol] 3.3 g/dL Normal [facility] Comment on above: Performed By: #### L IPID, URIC, CMP #### [facility] [address] [place] [address] Dr. Xena Pickard Glucose [Mass/Vol] 106 mg/dL Normal 74-106 [facility] Comment on above: Performed By: #### L IPID, URIC, CMP #### [facility] [address] [place] [address] Dr. Xena Pickard Potassium [Moles/Vol] 4.1 mmol/L Normal 3.5-5.1 [facility] Comment on above: Performed By: #### L IPID, URIC, CMP #### [facility] [address] [place] [address] Dr. Xena Pickard Protein [Mass/Vol] 7.2 g/dL Normal 6.4-8.2 [facility] Comment on above: Performed By: #### L IPID, URIC, CMP #### [facility] [address] [place] [address] Dr. Xena Pickard Sodium [Moles/Vol] 136 mmol/L Normal 136-145 [facility] Comment on above: Performed By: #### L IPID, URIC, CMP #### [facility] [address] [place] [address] Dr. Xena Pickard Urea nitrogen [Mass/Vol] 33.0 mg/dL Critically high 7.0-18.0 [facility] Comment on above: Performed By: #### L IPID, URIC, CMP #### [facility] [address] [place] [address] Dr. Xena Pickard Urea nitrogen/Creatinine [Mass ratio] 23.4 mg/mg Normal [facility] Comment on above: Performed By: #### L IPID, URIC, CMP #### [facility] [address] [place] [address] Dr. Xena Pickard URIC ACID SERUMon 09-01-2022 Urate [Mass/Vol] 5.1 mg/dL Normal 3.5-7.2 [facility] Comment on above: Performed By: #### L IPID, URIC, CMP #### [facility] [address] [place] [address] Dr. Xena Pickard URINE T PROTEIN CREAT RATIOo n 09-01-2022 UR TOTAL PROTEIN <6.0 Normal <=12.0 [facility] Comment on above: Performed By: #### U RTPCR #### [facility] [address] [place] [address] Dr. Xena Pickard URINE CREAT 36.48 mg/dL Normal 20.00-300. 00 [facility] Comment on above: Performed By: #### U RTPCR #### [facility] [address] [place] [address] Dr. Xena Pickard CNNURSEon 01-07-2021 CNNURSE Nurse Visit (COVAMD) -- ALFREDAAMINA ([id number]) 1945 M Date Time Provider Department 01/07/21 NEIL PIERCE) LOTTIE During your visit today, we recorded the following information about you: Allergies As of Date: 01/07/2021 (No Known Allergies) Date Reviewed: 10/07/2019 Reviewed by: Sharon (Rn) DOLORES Nunn - Fully Assessed Order(s):Reachable SARS-COV-2 VACCINE 2D DOSE APPT [[id number]] Order #: [id number] Prescriptions as of 01/07/2021 Sig: DOCUSATE SODIUM [...] 1 tablet by mouth once d* OMEGA 1-KVH-VGS-FISH OIL 1,00* Take 1 g by mouth [...] 08/21/2017 Shoulder pain [M25.519] 07/16/2019 Encounter Status:Open [facility] Lab Reportson 07-01-2020 Lab Reports [id number]:127 Normal [facility] Lab Reports [id number]:127 Normal [facility] Coding Summary.on 11-27-2019 Coding Summary. 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 Althea Castro M.D. ned Dictated: 11/25/2019 #[id number] Typed 11/25/2019 #[id number] cc: Althea Castro M.D. [facility] Comment on above: Result Comment: Elec tronically Signed By: Althea Castro MD\.br\Date and Time Signed: 11/26/19 16:05 EST Main OR Intraoperative Recor don 11-26-2019 Main OR Intraoperative Record IntraOp Document Type FT Summary Primary Physician: Althea Castro MD Finalized Date/Time: 11/26/19 13:40:27 Pt. Name: AMINA LIM Adriano HernándezB./Sex: 1945 Male Med Rec #: [id number] Physician: Althea Castro MD Financial #: [id number] Pt. Type: A Room/Bed: [facility]/ Admit/Disch: 11/25/19 12:23:56 - 11/25/19 15:20:00 Institution: Case Times FT Entry 1 Patient Times In Room 11/25/19 14:12:00 Out Room 11/25/19 14:44:00 Procedure Times Start 11/25/19 14:22:00 Stop 11/25/19 14:42:00 Anesthesia Times Last Modified By: Estella BERNAL, MELIAOR, Cortney 11/25/19 14:43:21 General Comments: 11/26/2019 Chart opened to review and send charges Anders Clayton ANIMAL TRAINER Case Attendance FT Entry 1 Entry 2 Entry 3 Case Attendee Althea Castro MD ANIMAL TRAINER, Pattie Denson RN, Yaquelin Rowe Role Performed Surgeon - Primary Scrub - Primary Scrub - Primary Time In 11/25/19 14:12:00 11/25/19 14:12:00 11/25/19 14:12:00 Time Out 11/25/19 14:44:00 11/25/19 14:44:00 11/25/19 14:44:00 Procedure CATARACT EXTRACTION W/ CATARACT EXTRACTION W/ CATARACT EXTRACTION W/ INTRAOCULAR LENS(Right) INTRAOCULAR LENS(Right) INTRAOCULAR LENS(Right) Comments Last Modified By: Estella RN, CNOR, Estella RN, MELIAOR, Estella RN, MELIAOR, Cortney 11/25/19 Cortney 11/25/19 Cortney 11/25/19 14:43:22 14:43:22 14:43:22 Entry 4 Case Attendee Estella BERNAL, SAMANTHA, Cortney Role Performed Drier And Grinder Tender - Primary Time In 11/25/19 14:12:00 [...] Applicable) PreOp Antibiotic No Time Out Althea Castro MD, Given Participants Sam SANCHEZ, Jarett Stevens RN, Estella Tamez RN, CNOR, Ruthann Time Out Complete 11/25/19 14:21:00 Outcomes Met? [...] RN, Outcomes Met? Yes Jarett Barr RN, Ga Tamez MD, Althea Rowe Last Modified By: SAMANTHA Soria RN, Ruthann [...] safely administered during the perioperative period For [place] please see scanned medication reconcilliation form for medications used at the field during the procedure. Implant Log FT Pre-Care Text: Records devices implanted during the operative or invasive procedure Entry 1 Procedure CATARACT EXTRACTION W/ Implant/Explant Implant INTRAOCULAR LENS(Right) Implant Identification FT Description HIMANSHU IOL [id number] SOFPORT Lot Number [id number] SIZE 20.5 [[id number] 20.5][F] Forest Technician FT-[employer]USCH [employer]OM[employer] Catalog ?# [id number] 20.5[F] Expiration Date 01/14/24 Unique Device [id number] Identifier (KATHLEEN) Human Readable {01}[id number] Machine Readable [id number] Barcode Barcode Usage Data FT Implant Site [...] 14:43 Tabitha Clayton CST 11/26/19 13:40 Normal [facility] Operative Reporton 0 Operative Report [...] to the surface of the globe. A Tehnologii obratnyh zadachan manometer was positioned and set at 20 [...] to the Recovery Room in good condition. Althea Castro M.D. ned Dictated: 11/25/2019 #[id number] Typed: 11/26/2019 #[id number] cc: Althea Castro M.D. [facility] Comment on above: Result Comment: Elec tronically Signed By: Althea Castro MD\.br\Date and Time Signed: 11/26/19 16:05 EST Inpatient Patient Summaryon 11-25-2019 Inpatient Patient Summary [place] [id number] [facility] Clinical Discharge Instructions PERSON INFORMATION Name: AMINA LIM PHYSICIANS Admitting Physician: Althea Castro MD Attending Physician: Althea Castro MD PCP: Ara YE, Narciso Discharge Diagnosis: Cataract; Floppy iris syndrome Comment: PATIENT EDUCATION INFORMATION Instructions: Medication Leaflets: Follow up: With: Address: When: Althea Castro [address] [place], [place] [id number] [facility] (1) Comments: Call physician if symptoms worsen [...] 1,000 Milligram By Mouth every day. ascorbic acid/chondroitin/glucosa/m angan (Glucosamine Chondroitin) 1TAB By Mouth every day. [...] unit By Mouth every day. Comment: Mimi [facility] Main OR PACU II Recordon Main OR PACU II Record PACU Phase II Doc ument Type FT Summary Primary Physician: Althea Castro MD Finalized Date/Time: 11/25/19 15:24:08 Pt. Name: AMINA LIM Adriano Benavidez/Sex: 1945 Male Med Rec #: [id number] Physician: Althea Castro MD Financial #: [id number] Pt. Type: A Room/Bed: [place] [address] Admit/Disch: 11/25/19 12:23:56 - 11/25/19 15:20:00 Institution: [...] By: Emy Thomas RN 11/25/19 15:24 Normal [facility] Main OR Preoperative Recordo n 11-25-2019 Main OR Preoperative Record Holding Area Document Type FT Summary Primary Physician: Althea Castro MD Finalized Date/Time: 11/25/19 12:48:49 Pt. Name: ALFREDA AMINA Adriano HernándezB./Sex: 1945 Male Med Rec #: [id number] Physician: Althea Castro MD Financial #: [id number] Pt. Type: A Room/Bed: [facility]/ Admit/Disch: 11/25/19 12:23:56 - Institution: Case Times [...] By: Cynthia James RN 11/25/19 12:48 Normal [facility] Patient Education - Texton 0 11-25-2019 Patient Education - Text Normal [facility] Basic Metabolic Panlon 07-17 Anion gap [Moles/Vol] 10 mmol/L Normal 0-15 [facility] Calcium [Mass/Vol] 8.4 mg/dL Low 8.5-10.5 [facility] Chloride [Moles/Vol] 106 mmol/L Normal 98-110 [facility] CO2 [Moles/Vol] 21 mmol/L Low 23-32 [facility] Creatinine [Mass/Vol] 1.23 mg/dL Normal 0.7-1.4 [facility] Glucose [Mass/Vol] 176 mg/dL High 65-100 [facility] Potassium [Moles/Vol] 4.1 mmol/L Normal 3.5-5.0 [facility] Sodium [Moles/Vol] 137 mmol/L Normal 135-146 [facility] Urea nitrogen [Mass/Vol] 22 mg/dL Normal 8-25 [facility] CASE MANAGEMon 07-17-2019 CASE MANAGEM HNO ID: [id number] Author: Nichelle Henao (Sw) Service: ? Author Type: Hand Packager Type: Care Mgt Progress Note Filed: 07/17/2019 [...] 17, 2019 TIME: 11:04 AM PAGER/CONTACT #: [phone] [facility] CASE MGT INIT [facility] 2018 CASE MGT [facility] HNO ID: [id number] Author: Nichelle Henao (Sw) Service: ? Author Type: Hand Packager Type: Care Mgt Initial Assessment Filed: 07/17/2019 11:04 AM Note Text: CARE MANAGEMENT: ASSESSMENT AND DISCHARGE PLAN SERVICE DATE: 07/17/2019 SERVICE TIME: 11am PRIMARY CARE PHYSICIAN: Narciso Bullock MD ADMISSION STATUS: Inpatient Needs Prior to Discharge: Ready for Discharge MEDICAL: Patient/Role Player Stated Goals: To have reduction in pain To have reduction in symptoms To improve my functional status Health Insurance: MEDICARE A AND B Health Issues Impacting Discharge Plan: none Last Discharge Date: 03/03/17 Is this Within the Past 30 days? No Advance Directive: Current Advance Directive: None Medical Imaging Technologist Attempted to Assist with AD Completion: Yes [...] None Has the Patient Been in a Chcf Facility in the Past 30 days? No SOCIAL: Living Arrangement: Home Lives With: Spouse Financial Resources: Retired Primary Contact: Extended Emergency Contact Information Primary Emergency Contact: Tanja Lim Address: [address] [place] [address] [facility] Mobile Relation: Spouse Supportive: Yes Other Important [...] 0 I feel financially burdened by my mtt-rd-hahxix expenses for my prescription medication: Disagree completely [...] 17, 2019 TIME: 11:02 AM PAGER/CONTACT #: [phone] Normal [facility] CBCon 07-17-2019 Absolute nRBC <0.01 Normal <0.01 [facility] Erythrocyte distribution width (RBC) [Ratio] 13.2 % Normal 11.5-15.0 [facility] Hematocrit (Bld) [Volume fraction] 32.9 % Low 39.0-51.0 [facility] Hemoglobin (Bld) [Mass/Vol] 11.0 g/dL Low 13.0-17.0 [facility] MCH (RBC) [Entitic mass] 30.6 pG Normal 26.0-34.0 [facility] MCHC (RBC) [Mass/Vol] 33.4 g/dL Normal 30.5-36.0 [facility] MCV (RBC) [Entitic vol] 91.6 fL Normal 80.0-100.0 [facility] Platelet mean volume (Bld) [Entitic vol] 10.4 fL Normal 9.0-12.7 [facility] Platelets (Bld) [#/Vol] 188 10*3/uL Normal 150-400 [facility] RBC (Bld) [#/Vol] 3.59 10*6/uL Low 4.20-6.00 [facility] WBC (Bld) [#/Vol] 16.37 10*3/uL High 3.70-11.00 [facility] NURSING PROGon 07-17-2019 NURSING PROG HNO ID: [id number] Author: Prudence (Rn) DOLORES Bowen Service: Nursing Author Type: Registered Nurse Type: Nursing Progress Note Filed: 07/17/2019 1:33 PM Note Text: Nursing Progress Note Patient Name: Amina Lim Patient Location: [place] [address] Daily Note:.Assumed care of patient, assessment completed, [...] note was completed by: Prudence Bowen RN [facility] PROGRESSon 07-17-2019 PROGRESS HNO ID: [id number] Author: Sky Echols Service: General Internal Medicine [...] 20 mg ORAL AT BEDTIME PHYSICAL EXAM: 07/16/194 07/16/19 2307 07/17/19 0401 07/17/19 0732 BP: [...] plan of care with Dr. Echols. Yeny Walters APRN.UNSCRAMBLER July 17, 2019 10:36 AM I have seen the patient and verified the exam. I have personally reviewed all labs and imaging results. I have discussed with the MOLD CHECKER and I have participated in montelongo components. I agree with the note as documented with additional comments if needed. The assessment and plan as outlined are reflection of our discussion. Sky Echols MD July 17, 2019 [facility] PROGRESS HNO ID: [id number] Author: Rloly Osullivan MD Service: Orthopaedic Surgery Author Type: [...] (U/L) Date Value 07/27/2009 29 URINALYSIS Specific [place], Ur Date Value Ref Range Status 08/24/2009 [...] Osullivan MD Resident Physician PGY-2 Orthopaedic Surgery 57740 For urgent issues or if after 5:00 PM/weekends, please page [phone]) Normal [facility] THERAPY NTon 07-17-2019 THERAPY NT HNO ID: [id number] Author: Roseanne (Ot) Gregory Service: Occupational Therapy Author Type: Occupational Therapist Type: Therapy (PT/OT/Speech/Resp) Filed: 07/17/2019 3:00 PM Note Text: Occupational Therapy Evaluation SERVICE DATE: 07/17/2019 SERVICE TIME: 0950 to 1020 ROOM: [place] [address] Recommended Discharge Disposition: Home Anticipated Discharge Needs: Physical Assist at Home Physical Assist at Home for: Shopping;Transportation;Me als;Laundry;Cleaning;Medic ation Management OT Recommendations to Nursing: OOB for [...] with: Patient TREATMENT INTERVENTIONS: Therapy Diagnosis: Reduced mobility-other;Decreased activities of daily living (ADL) Interventions Provided: Evaluation;Self [facility] (69147) $ Evaluation-Low (89857) Billed Units: 1 unit Self [facility] ([id number]) Treatment Minutes: 23 2 units Skilled Intervention(s): [...] DATE: July 17, 2019 TIME: 2:46 PM [facility] THERAPY NT HNO ID: [id number] Author: Roseanne Jenkins Service: Occupational Therapy Author Type: Occupational Therapist Type: Therapy (PT/OT/Speech/Resp) Filed: 07/17/2019 3:08 PM Note Text: Occupational Therapy Treatment SERVICE DATE: 07/17/2019 SERVICE TIME: 1155 to 1240 ROOM: [address] Recommended Discharge Disposition: Home Anticipated Discharge Needs: Physical Assist at Home Physical Assist at Home for: Shopping;Transportation;Me als;Laundry;Cleaning;Medic ation Management OT Recommendations to Nursing: OOB for [...] with: Patient TREATMENT INTERVENTIONS: Therapy Diagnosis: Reduced mobility-other;Decreased activities of daily living (ADL) Interventions Provided: Therapeutic Exercise (56554);Self [facility] (29308) Therapeutic Exercise (79552) Treatment Minutes: 10 1 unit Skilled Intervention(s): Instruction in therapeutic exercise Verbal and tactile cuing provided Facilitation of muscle control, optimal recruitment and alignment Education in PROM shoulder to 90 degrees FF passively and work toward limit of 120 degrees. Spouse able to perform PROM to 90 degrees as well Self [facility] (26389) Treatment Minutes: 35 2 units Skilled Intervention(s): [...] DATE: July 17, 2019 TIME: 3:04 PM [facility] THERAPY NT HNO ID: [id number] Author: Floresita Ray Service: Physical Therapy Author Type: Physical Therapist Type: Therapy (PT/OT/Speech/Resp) Filed: 07/17/2019 1:21 PM Note Text: PHYSICAL THERAPY MISSED VISIT SERVICE DATE: 07/17/2019 SERVICE TIME: 1320 to 1320 ROOM: [place] [address] (EU OR POST OP) Attempted Evaluation. Patient not seen due to No Skilled Needs. Patient's post op needs can be met by OT. Pt does not have any functional mobility impairment. Will discontinue PT order. SIGNATURE: Floresita Ray PT PATIENT NAME: Amina Lim DATE: July 17, 2019 TIME: 1:21 PM [facility] 07-16-2019 ALLIED HEALTH HNO ID: [id number] Author: Armen Redmond (Rt) Service: Radiology Author Type: Model Maker Fiberglass Type: Allied Health Filed: 07/16/2019 3:56 PM [...] RT Elijah July 16, 2019 3:56 PM [facility] ALLIED [facility] HNO ID: [id number] Author: Armen Redmond (Rt) Service: Radiology Author Type: Model Maker Fiberglass Type: Allied Health Filed: 07/16/2019 3:47 PM [...] RT Elijah July 16, 2019 3:47 PM [facility] ANES Gerry 07-16-2019 ANES POST HNO ID: [id number] Author: Jordan Desai Service: Anesthesiology Author Type: Anesthesiologist Type: Anesthesia PostOp Filed: 07/16/2019 5:30 PM Note Text: POST ANESTHESIA EVALUATION NOTE SERVICE DATE: 07/16/2019 SERVICE TIME: 5:30 PM : 1945 Vitals: 07/16/19 1050 07/16/19 1519 07/16/19 1706 Temp: 36.5 ?C (97.7 ?F) 36.6 ?C (97.9 ?F) 36.5 ?C (97.7 ?F) 07/16/19 16107/16/19 1630 07/16/19 1645 07/16/19 1706 BP: 146/78 141/74 132/72 141/70 07/16/19 1615 07/16/19 1630 07/16/19 1645 07/16/19 1706 Pulse: 62 61 65 71 07/16/19 1615 [...] 16, 2019 TIME: 5:30 PM PAGER/CONTACT #: [phone] [facility] ANES PREOPon 07-16-2019 ANES PREOP HNO ID: [id number] Author: Jordan Desai Service: Anesthesiology Author Type: [...] Take 1 tablet by mouth once daily. Xdpft-7-DEK-EPA-Fish Oil (FISH OIL) 1,000 mg (120 mg-180 mg) cap Take 1 g by mouth once daily. Lecithin 1,200 mg cap Take 1 capsule by mouth once daily. lovastatin (MEVACOR) 20 mg tablet Take 20 mg by mouth daily at bedtime. multivitamin (MULTIPLE VITAMINS) tablet Take 1 tablet by mouth once daily. Saw Protem 160 mg capsule Take 160 mg by [...] infusion 5-30 mL/hr INTRAVENOUS CONTINUOUS Mani (Flavio) Sell II - ceFAZolin iv piggyback 2 g in D5W (iso-osmotic) 100 mL (ANCEF) 2 g INTRAVENOUS Pre-Op Once Mani (Flavio) Sell II - acetaminophen 1,000 mg tab(s) (TYLENOL) 1,000 mg ORAL ONCE Mani (Flavio) Sell II - midazolam (PF) 2 mg injection [...] DATE: July 16, 2019 TIME: 10:51 AM [facility] CONSULTon 07-16-2019 CONSULT HNO ID: [id number] Author: Yeny Walters Service: General Internal Medicine [...] by mouth once daily. Disp: Rfl: 07/05/2019 Onghh-9-BLT-EPA-Fish Oil (FISH OIL) 1,000 mg (120 mg-180 [...] mouth once daily. Disp: Rfl: 07/05/2019 Saw Protem 160 mg capsule Take 160 mg by [...] in the care of your patient. Yeny Walters, LULÚ.UNSCRAMBLER July 16, 2019 5:46 PM Normal [facility] OPERATIVE NOon 07-16-2019 OPERATIVE NO HNO ID: [id number] Author: Anshu Thomas Service: Orthopaedic Surgery Author Type: Physician Type: Operative Report Filed: 07/16/2019 3:21 PM Note Text: [place] [address] [place] OPERATIVE REPORT NAME: Amina Oh [facility] #: [id number] DATE: 07/16/2019 (1:12pm-3:12pm) AGE: 74 SURGEON 1: Anshu Thomas M.D. CLOUD AUTOMATION TESTER: 1. Brain Kay M.D. 2. Rolly Osullivan [...] INDICATIONS: The patient is a 74 year oldtwp-ivam-ytm right-hand dominant white male who has a [...] a #2 Ticron suture passed in a cjiczd-xu-kuylz fashion. Following this, all retractors were removed, [...] none COMPLICATIONS: none apparent Anshu Thomas M.D. [facility] XR SHOULDER SPECIFY 1V RTon [...] on Jul 16 2019 3:57PM EST [id number] [facility] NURSING PROGon 06-27-2019 NURSING PROG HNO ID: [id number] Author: Norma (Rn) DOLORES Adorno Service: Nursing Author Type: Registered Nurse Type: Nursing Progress Note Filed: 07/15/2019 8:39 AM Note Text: PACC Nurse Progress Note History AND Physical: PACC Visit Date: 06/25/19 Original HANDP Date: N/A ED visit Date: N/A Outside HANDP Scanned Date: N/A Labs Within Last 6 Months: 06/25/19 CBC RBC 4.05 H/H 12.4/38.5 06/25/19 BMP glucose 114 06/25/19 TANDS 30 day in [facility] 03/14/17 [place] Imaging Within Last 12 Months: 06/25/19 ct shoulder in [facility] 12/13/18 xr shoulder 3v Cardiac Testin06/25/19 prelim ekg in [facility] Last Menstrual Period: NA BMI Percentile (PEDS): N/A Risk Assessment: N/A Anesthesia Review: N/A Narrative: N/A Pre-op Considerations: PER [facility] HX CLARENCE- CPAP at night History of Prostate CA with Radiation and insertion of Seeds CKD follows with Nephrology Chart Check: IN PROGRESS NEED FINAL EKG Marialuisa Cubranich, RN June 27, 2019 1:24 PM July 15, 2019 8:38 AM Final EKG from 06/25/19--Sinus allegra (57bpm) Norma Adorno RN [facility] Type and SCR (30D)on 019 ABO/RH(D) Positive [facility] HOSPon 12-13-2018 HOSP Patient:Amina Lim [...] (VITAMIN C) 1,000 mg tablet [employer]ERALS ORAL Unfwq-6-ISF-EPA-Fish Oil (FISH OIL) 1,000 mg (120 mg-180 mg) cap Lecithin 1,200 mg cap lovastatin (MEVACOR) 20 mg tablet multivitamin (MULTIPLE VITAMINS) tablet Saw Protem 160 mg capsule vitamin b complex tab [...] notes entered within the past 30 days [facility] XR SHLDR >/=3V AP/RADHA AP/OTH [...] on Dec 10 2018 9:43AM EST [id number] [facility] XR SHLDR >/=3V AP/RADHA AP/OTH R [...] on Dec 10 2018 9:37AM EST [id number] [facility] Vital Signs Date Time Vital Sign Value Performing Clinician Facility 05-16-2023 09:10-0400 Body height 179.1 cm LyndsayClikthrough DO Work Phone: [facility] 05-16-2023 09:10-0400 Body weight 92.53 kg LyndsayClikthrough DO Work Phone: [facility] 05-16-2023 09:10-0400 Diastolic blood pressure 77 mm[Hg] Lyndsay Maditz DO Work Phone: [facility] 05-16-2023 09:10-0400 Heart rate 43 /min LyndsayClikthrough DO Work Phone: [facility] 05-16-2023 09:10-0400 Systolic blood pressure 171 mm[Hg] Lyndsay Maditz DO Work Phone: [facility] 09-06-2022 11:20-0500 Body height 177.8 cm [employer] Other [employer] Other 09-06-2022 11:20-0500 Body mass index (BMI) [Ratio] 29.9 kg/m2 [employer] Other [employer] Other 09-06-2022 11:20-0500 Body temperature 96.5 [degF] Yudith Rubin Other [employer] Other 09-06-2022 11:20-0500 Body weight 94.53 kg Yudith Rubin Other [employer] Other 09-06-2022 11:20-0500 Diastolic blood pressure 88 mm[Hg] Yudith Rubin Other [employer] Other 09-06-2022 11:20-0500 Respiratory rate 18 /min Yudith Rubin Other [employer] Other 09-06-2022 11:20-0500 SaO2% (BldA) [Mass fraction] 98 % Yudith Rubin Other [employer] Other 09-06-2022 11:20-0500 Systolic blood pressure 159 mm[Hg] Yudith Rubin Other [employer] Other 09-22-2021 11:20-0500 Body height 177.8 cm Ileana Earl Other [employer] Other 09-22-2021 11:20-0500 Body mass index (BMI) [Ratio] 30.93 kg/m2 Ileana Saavedramelisa Other [employer] Other 09-22-2021 11:20-0500 Body temperature 96.4 [degF] Ileana Saavedramelisa Other [employer] Other 09-22-2021 11:20-0500 Body weight 97.8 kg Ileana Saavedramelisa Other [employer] Other 09-22-2021 11:20-0500 Diastolic blood pressure 75 mm[Hg] Ileana Earl Other [employer] Other 09-22-2021 11:20-0500 Respiratory rate 18 /min Ileana Earl Other [employer] Other 09-22-2021 11:20-0500 SaO2% (BldA) [Mass fraction] 97 % Ileana Earl Other [employer] Other 09-22-2021 11:20-0500 Systolic blood pressure 119 mm[Hg] Ileana Earl Other [employer] Other Encounters Encounter Date Encounter Type Care Provider Facility Start: 06-26-2024 End: 06-26-2024 ambulatory EL GONSALEZ Not Available Start: 05-16-2024 End: 05-16-2024 ambulatory SHIRLENE KUHN Not Available Start: 05-15-2024 End: 05-15-2024 ambulatory QUETA TILLEY Not Available Start: 05-14-2024 End: 05-14-2024 ambulatory LOY CARMICHAEL Not Available Start: 05-08-2024 End: 05-08-2024 ambulatory BONILLA HOWARD Not Available Start: 05-06-2024 End: 05-06-2024 ambulatory TIM LAWSON Not Available Start: 05-01-2024 End: 05-01-2024 ambulatory BONILLA HOWARD Not Available Start: 04-29-2024 End: 04-29-2024 ambulatory BONILLA HOWARD Not Available Start: 04-26-2024 End: 04-26-2024 ambulatory TIM LAWSON Not Available Start: 04-24-2024 End: 04-24-2024 ambulatory TIM LAWSON Not Available Start: 04-22-2024 End: 04-22-2024 ambulatory SHIRLENE KUHN Not Available Start: 04-17-2024 End: 04-17-2024 ambulatory QUETA TILLEY Not Available Start: 03-20-2024 End: 03-20-2024 ambulatory SHIRLENE KUHN Not Available Start: 03-18-2024 End: 03-18-2024 Patient encounter procedure MD Narciso Bullock Work Phone: [facility] Work Phone: Start: 03-18-2024 End: 03-18-2024 ambulatory MD Narciso Bullock Work Phone: [facility] Work Phone: Start: 03-18-2024 Encounter for other preprocedural examination Queta Tilley [facility] Start: 03-18-2024 End: 03-18-2024 ambulatory QUETA TILLEY Not Available Start: 02-02-2024 End: 02-02-2024 ambulatory EL GONSALEZ Not Available Start: 11-14-2023 End: 11-14-2023 ambulatory [facility] Start: 10-02-2023 End: 10-02-2023 ambulatory [facility] Start: 09-25-2023 End: 09-25-2023 ambulatory ALTHEA CASTRO Not Available Start: 08-08-2023 End: 08-08-2023 ambulatory PARI [facility] Start: 06-14-2023 End: 06-14-2023 ambulatory NARCISO BULLOCK Facility:[facility] Start: 06-06-2023 End: 06-06-2023 ambulatory [facility] Start: 05-24-2023 ambulatory No Pcp LUL[facility] [place] Start: 05-16-2023 End: 05-16-2023 ambulatory NARCISO BULLOCK Facility:[facility] Start: 05-16-2023 End: 05-16-2023 Patient encounter procedure Lyndsay Salgado DO Work Phone: [facility] Comment on above: Chronic kidney disea se, unspecified CKD stage (Primary Dx); Bradycardia; Generalized pain; Anemia of renal disease; Primary hypertension Start: 03-15-[address] NARCISO BULLOCK . Facili ty:[facility] Start: 10-03-2022 End: 10-03-[address] NARCISO BULLOCK . Facility:[facility] Start: 09-06-2022 End: 09-06-2022 ambulatory Yudith Irelandyessica Other [facility] [employer] Other Start: 09-06-2022 Office outpatient vi sit 15 minutes Aidenradha Antoniodeni [facility] Start: 09-01-2022 End: 09-02-[address] NARCISO BULLOCK . Facility:[facility] Start: 09-01-2022 End: 09-02-[address] NARCISO BULLOCK . Facility:[facility] Start: 09-22-2021 End: 09-22-2021 ambulatory Ileana Earl Other [facility] [employer] Other Start: 09-22-2021 Office outpatient vi sit 15 minutes Essjorden Earl [facility] Start: 12-10-2018 End: 12-10-2018 Patient encounter procedure [facility] Procedures Date Procedure Procedure Detail Performing Clinician Start: 09-01-[address] EH BULLOCK . Comment on above: Performed By: #### P [facility] #### [facility] [address] [place] [address] Dr. Xena Pickard Start: 06-25-2019 Antibody screen Plan of Treatment Date Care Activity Detail Author Start: 06-14-2024 HEMOGLOBIN/HEMATOCRIT HEMOGLOBIN/HEM ATOCRIT [facility] Start: 06-14-2024 SERUM CREATININE SERUM CREATININE Cl [facility] Start: 03-18-2024 Bacteria identified in Urine by Culture [facility] Start: 06-16-2023 Influenza vaccination INFLUENZA (#1) [facility] Start: 05-16-2023 End: 07-16-2023 25-hydroxyvitamin D3 [Mass/volume] in Serum or Plasma VITAMIN D 25 HYDROXY Lab Routine Chronic kidney disease, unspecified CKD stage Expected: 05/16/2023, Expires: 07/16/2023 [facility] Work Phone: Comment on above: Expected: 05/16/2023 , Expires: 07/16/2023 Start: 05-16-2023 End: 07-16-2023 MONOCLONAL PROTEIN, SERUM (BLOOD) MONOCLONAL PROTEIN, SERUM (BLOOD) Lab Routine Chronic kidney disease, unspecified CKD stage Expected: 05/16/2023, Expires: 07/16/2023 [facility] Work Phone: Comment on above: Expected: 05/16/2023 , Expires: 07/16/2023 Start: 05-16-2023 End: 07-16-2023 Parathyrin.intact [Mass/volume] in Serum or Plasma PTH INTACT BLD Lab Routine Chronic kidney disease, unspecified CKD stage Expected: 05/16/2023, Expires: 07/16/2023 [facility] Work Phone: Comment on above: Expected: 05/16/2023 , Expires: 07/16/2023 Start: 10-16-2022 ADVANCE DIRECTIVE DISCUSSION ADVANCE DIRECTIVE DISCUSSION [facility] Start: 10-16-2022 DEPRESSION ASSESSMENT DEPRESSION ASS ESSMENT [facility] Start: 07-17-2022 DIABETES SCREEN DIABETES SCREEN [facility] Start: 03-04-2021 COVID-19 VACCINE (3 - Pfizer series) COVID-19 VACCINE (3 - Pfizer series) [facility] Start: 07-17-2020 HEMOGLOBIN/HEMATOCRIT HEMOGLOBIN/HEM ATOCRIT [facility] Start: 07-17-2020 SERUM CREATININE SERUM CREATININE Cl [facility] Start: 11-16-2017 PNEUMOCOCCAL: 65+ (2 - PCV) PNEUMOCOCCAL: 65+ (2 - PCV) [facility] Start: 1996 SHINGRIX VACCINE (1 of 2) SHINGRIX VACCINE (1 of 2) [facility] Start: 1965 Urine microalbumin profile DTAP,TDAP,TD (1 - Tdap) [facility] Start: 1964 ANNUAL PCP TEAM DIRECTOR OF EARLY CHILDHOOD EDUCATION MAURI DISEASE VISIT ANNUAL PCP TEAM CHRONIC DISEASE VISIT [facility] Start: 1964 BP CONTROLLED (<130/80) BP CON TROLLED (<130/80) [facility] Start: 1964 HEPATITIS C SCREENING HEPATITIS C COLETTE MONDRAGON [facility] End: 05-16-2024 CBC panel - Blood by Automated count CBC Lab Routine Chronic kidney disease, unspecified CKD stage Every 3 months for 4 Occurrences starting 05/16/2023 until 05/16/2024 [facility] Work Phone: Comment on above: Every 3 months for 4 Occurrences starting 05/16/2023 until 05/16/2024 End: 05-16-2024 Protein/Creatinine [Mass Ratio] in Urine PROTEIN CREATININE RATIO Lab Routine Chronic kidney disease, unspecified CKD stage Every 3 months for 4 Occurrences starting 05/16/2023 until 05/16/2024 [facility] Work Phone: Comment on above: Every 3 months for 4 Occurrences starting 05/16/2023 until 05/16/2024 End: 05-16-2024 Renal function 2000 panel - Serum or Plasma RENAL FUNCTION PANEL Lab Routine Chronic kidney disease, unspecified CKD stage Every 3 months for 4 Occurrences starting 05/16/2023 until 05/16/2024 [facility] Work Phone: Comment on above: Every 3 months for 4 Occurrences starting 05/16/2023 until 05/16/2024 End: 05-16-2024 Urinalysis complete panel - Urine URINALYSIS, WITH MICROSCOPIC Lab Routine Chronic kidney disease, unspecified CKD stage Every 3 months for 4 Occurrences starting 05/16/2023 until 05/16/2024 [facility] Work Phone: Comment on above: Every 3 months for 4 Occurrences starting 05/16/2023 until 05/16/2024 End: 06-16-2024 US KIDNEY/BLADDER US KIDNEY/BLADDER Radiology Routine Chronic kidney disease, unspecified CKD stage 1 Occurrences starting 05/16/2023 until 06/16/2024 [facility] Work Phone: Comment on above: 1 Occurrences starti ng 05/16/2023 until 06/16/2024 [facility] Immunizations Immunization Date Immunization Notes Care Provider Shaneka keith 01-07-2021 COVID-19 original vaccine, age 12+ yr, monovalent (PFIZER-BIONTECH - PURPLE TOP) Lyndsay Salgado DO Work Phone: [facility] Work Phone: 12-17-2020 COVID-19 original vaccine, age 12+ yr, monovalent (PFIZER-BIONTECH - PURPLE TOP) Lyndsay Salgado DO Work Phone: [facility] Work Phone: 11-16-2016 pneumococcal polysaccharide vaccine, 23 valent Lyndsay Salgado DO Work Phone: [facility] Payers Date Payer Category Payer Self-pay [id number] 2023 Unknown [id number] 2020 Unknown MMO MMO MEDICARE SUPPLEMENT [id number] 2020-Present [phone] [address] [place] [address] Indemnity [id number] 2011 Medicare MEDICARE MEDICAR E A AND B [id number] 2011-Present [phone] [address] [address] [place] [address] Medicare [id number] 1959 Medicare [id number] 1959 Unknown [id number] [id number] 1946 Unknown [id number] 2.16.840.1.265835.3.579.2.593 1946 Unknown [id number] 2.16.840.1.273481.3.579.2.593 1946 Unknown [id number] 2.16.840.1.560411.3.579.2.593 1946 Unknown [id number] 2.16.840.1.314509.3.579.2.593 1946 Unknown [id number] 2.16.840.1.318284.3.579.2.1259 1946 Unknown [id number] 2.16.840.1.439450.3.579.2.1258 1946 Unknown [id number] 2.16.840.1.763922.3.579.2.1258 1946 Unknown [id number] 2.16.840.1.987612.3.579.2.1258 1946 Unknown [id number] 2.16.840.1.017252.3.579.2.1258 1946 Unknown [id number] 2.16.840.1.414468.3.579.2.1258 1946 Unknown [id number] 2.16.840.1.231893.3.579.2.1258 1946 Unknown [id number] 2.16.840.1.065550.3.579.2.1258 1946 Unknown [id number] 2.16.840.1.535250.3.579.2.1258 1946 Unknown [id number] 2.16.840.1.924237.3.579.2.1258 1946 Unknown [id number] 2.16.840.1.043869.3.579.2.1258 1946 Unknown [id number] 1945 Unknown [id number] 1945 Unknown [id number] 1945 Unknown [id number] 1945 Unknown [id number] 1945 Unknown [id number] Unknown [id number] [id number] 1945 Unknown [id number] [id number] Unknown [id number] Social History Date Type Detail Facility Unknown if ever smoked [facility] Other Start: 07-16-2019 End: 05-16-2023 Sex Assigned At [facility] Start: 12-04-2018 End: 05-16-2023 Tobacco smoking status NHIS Never smoked tobacco [facility] Start: 05-16-2023 Tobacco use and exposure Smokeless tobacco non-user [facility] Start: 05-16-2023 Alcohol intake Current drinke r of alcohol (finding) [facility] Start: 07-16-2019 End: 05-16-2023 History of Social function [facility] PHQ2 Score 0 [facility] Start: 06-25-2019 Alcohol Comment 2 drinks every other day, maybe 3. beer. [facility] Start: 1945 Sex Assigned At Male [facility] Start: 06-18-2019 Gender identity Identifies as male gender (finding) [facility] Medical Equipment Procedure Code Equipment Code Equipment Origin al Text Equipment Identifier Dates Sti-Nn-U-Kind Im plant - [id number] Start: 03-02-2017 Comment on above: Description: CHECK P RICE Humeral Insert S ocket 36 M + 4 [id number] Start: 07-16-2019 Insert Rsp 36mm Standard Socket [employer] Humerus - [id number] Start: 03-02-2017 Stem Altivate Dj o Surgical 12 Standard 108mm Humeral Sterile Shoulder - [id number] Start: 07-16-2019 Baseplate Rsp P2 30mm Glenoid Sterile - [id number] Start: 07-16-2019 Screw Rsp 5mm 18 mm Bone Lock Glenoid Baseplate Shoulder - [id number] Start: 03-02-2017 Screw Rsp 5mm 26 mm Bone Lock Glenoid Baseplate Shoulder - [id number] Start: 07-16-2019 Clinical Notes 12-19-2016 to 11-14-2023 Ben EvansJamariEmily - 05/24/2023 9:51 AM EDTPatient DerrickLyndsay DO - 05/16/2023 9:20 AM EDT Note Date & Type Note Facility 11-14-2023 Note [place] [facility] Consult Note Reason for visit: htn [...] , HDL , (more content not included)... [facility] 11-14-2023 Note Patient here for 1 m [...] All other systems reviewed and are negative. [facility] 10-02-2023 Note Patient here for 2 m o follow up SVT and hypertension. Had routine labs a week ago. Staying very active. Walked 1 mile today. Denies chest pain and SOB. Review of Systems Neurological: Positive for vertigo. Psychiatric/Behavioral: The patient is nervous/anxious. All other systems reviewed and are negative. [facility] 10-02-2023 Note [place] [facility] Consult Note Reason for visit: Palpitations [...] Coronary angiogram: @C (more content not included)... [facility] 08-08-2023 Note [facility] Consult Note [...] I would brower (more content not included)... [facility] 06-21-2023 Note -episodes of SVT on holter -they appear like atach -30d monitor [facility] 06-21-2023 Note -no BB d/t bradycard ia at baseline -stress test to rule out cad [facility] 06-21-2023 Note -ct statin [facility] 06-21-2023 Note -cr 1.47, gfr 49 as of 05/2023 -sees nephrology [facility] 06-21-2023 Note Patient states he wa s told he has a heart mumur -no obvious murmur heard on exam, will order echo to rule out structural/valvular abnormalities [facility] 06-21-2023 Note - asymptomatic - 30-day event monitor to rule out significant bradycardia/AV blocks -treadmill stress for NSVT and to rule out chronotropic incompetence [facility] 06-21-2023 Note - stable[facility] New patient here to establish care. Ref from Dr. Bullock for bradycardia. Wore Holter monitor recently. Sees [facility] nephrology for CKD. Has never seen cardiology before. He denies chest pain, SOB, and palpitations. Review of Systems All other systems reviewed and are negative. [facility] 06-06-2023 Note [facility] Consult Note Reason for visit: new pt, bradycardia, nsvt on holter HPI: Amina Lim is a 78 y.o. year old with past medical history of chronic back pain, BPH, monoclonal gammopathy, kidney stones, hypertension, hyperlipidemia, bradycardia, ckd. He is a patient of Dr. Bullock. He was seeing his logistics operations director due to history of CKD which they [...] no thoracic deformity (more content not included)... [facility] 05-24-2023 Note Patient Outreach (MANUELA TNAV) AMINA LIM ([id number]) 1945 M Date Time Provider Department 05/24/23 [...] 1 tablet by mouth once daily. - Bdjgy-8-KXG-EPA-Fish Oil (FISH OIL) 1,000 mg (120 mg-180 mg) cap Take 1 g by mouth once daily. - lovastatin (MEVACOR) 20 mg tablet Take 20 mg by mouth daily at bedtime. - multivitamin (MULTIPLE VITAMINS) tablet Take 1 tablet by mouth once daily. - Saw Protem 160 mg capsule Take 160 mg by [...] Encounter Status:Closed by RAOUL ROLDAN on 06/26/23 [facility] 05-24-2023 Note Patient Outreach (MANUELA TNAV) AMINA LIM ([id number]) 1945 M Date Time Provider Department 05/24/23 NO PCP NETNAV During your visit today, we recorded the following information about you: Emily Mercado 06/26/2023 3:01 AM Signed POPULATION HEALTH NAVIGATION OUTREACH Action/ [place] Support: Called pt to schedule an appt [...] DEPRESSION ASSESSMENT Never done Navigation Signature: Emily Contreras May 24, 2023 9:52 AM Allergies As [...] 1 tablet by mouth once daily. - Ubplw-8-EON-EPA-Fish Oil (FISH OIL) 1,000 mg (120 mg-180 mg) cap Take 1 g by mouth once daily. - lovastatin (MEVACOR) 20 mg tablet Take 20 mg by mouth daily at bedtime. - multivitamin (MULTIPLE VITAMINS) tablet Take 1 tablet by mouth once daily. - Saw Protem 160 mg capsule Take 160 mg by [...] Shoulder pain [M25.519] 07/16/2019 Encounter Status:Closed by Crowdery TuTandaMich on 06/26/23 [facility] 05-24-2023 Note HNO ID: [id number] Author: Emily Mercado Service: ? Author Type: ? Type: Progress Notes Filed: 06/26/2023 3:01 AM Note Text: POPULATION HEALTH NAVIGATION OUTREACH Action/ [place] Support: Called pt to schedule an appt [...] Emily Evans May 24, 2023 9:52 AM [facility] 05-24-2023 History of Present illness Narrative POPULATION HEALTH NAVIGATION OUTREACH Action/FYI [place] Support: Called pt to schedule an appt [...] 2023 9:52 AM documented in this encounter [facility] 05-16-2023 Note HNO ID: [id number] Author: Lyndsay Salgado DO Service: ? Author Type: Physician Type: Progress Notes Filed: 05/16/2023 10:07 AM Note Text: [facility] NEPHROLOGY AND HYPERTENSION [facility] SERVICE DATE: 05/16/2023 [...] III. Last labs in our system from 2018. Creatinine 1.2 at that time. Diclofenac daily at that time. Currently on Diclofenac 25 mg BID. Patient arrived without any labs. Patient states that he was previously following with a logistics operations director that went over his labs every visit. States that his renal function was worsening and he was taken off a water pill that improved his renal function. His logistics operations director stopped seeing patients in the office and [...] Take 1 tablet by mouth once daily. Vaelj-7-SXL-EPA-Fish Oil (FISH OIL) 1,000 mg (120 mg-180 mg) cap Take 1 g by mouth once daily. Lecithin 1,200 mg cap Take 1 capsule by mouth once daily. lovastatin (MEVACOR) 20 mg tablet Take 20 mg by mouth daily at bedtime. multivitamin (MULTIPLE VITAMINS) tablet Take 1 tablet by mouth once daily. Saw Protem 160 mg capsule Take 160 mg by [...] Psychiatric: No depr (more content not included)... [facility] 05-16-2023 Instructions Lyndsay Salgado DO - 05/16/2023 [...] have your physicians fax over your records [phone] Make an appointment with cardiology for slow [...] be greatly appreciated. documented in this encounter [facility] 05-16-2023 History of Present illness Narrative [facility] NEPHROLOGY & HYPERTENSION [facility] SERVICE DATE: 05/16/2023 [...] that he was previously following with a logistics operations director that went over his labs every visit. States that his renal function was worsening and he was taken off a water pill that improved his renal function. His logistics operations director stopped seeing patients in the office and [...] Take 1 tablet by mouth once daily. Zjioh-2-FKI-EPA-Fish Oil (FISH OIL) 1,000 mg (120 mg-180 mg) cap Take 1 g by mouth once daily. Lecithin 1,200 mg cap Take 1 capsule by mouth once daily. lovastatin (MEVACOR) 20 mg tablet Take 20 mg by mouth daily at bedtime. multivitamin (MULTIPLE VITAMINS) tablet Take 1 tablet by mouth once daily. Saw Protem 160 mg capsule Take 160 mg by [...] 16, 2023 TIME: 10:06 AM OFFICE NUMBER: [phone] CC: REFERRING PROVIDER: Narciso Bullock MD PRIMARY CARE PHYSICIAN: Narciso Bullock MD documented in this encounter [facility] 09-06-2022 Evaluation note Encounter Date Diagnosis Assessment [...] Dr. Bullock for NSAIDs alternative like Tramadol [facility] Other 12-08-2021 Evaluation note* Encounter Date Diagnosis [...] He did try Tylenol with no effect. [facility] Other 03-06-2017 History of Past illness Narrative* Problem Noted Date Diagnosed Date Resolved Date Primary osteoarthritis of left shoulder 12/19/2016 06/25/2019 Prostate cancer 07/05/2016 06/25/2019 Peyronie's disease 07/08/2009 9 documented as of this encounter (statuses as of 05/16/2023) [facility] History of Past illness Narrative* Problem Noted Date Diagnosed Date Resolved Date Primary osteoarthritis of left shoulder 12/19/2016 06/25/2019 Prostate cancer 07/05/2016 06/25/2019 Peyronie's disease 07/08/2009 9 documented as of this encounter (statuses as of 06/26/2023) [facility] [place] Diagnosis Chronic kidney disease, unspecified CKD stage- Primary Bradycardia Other specified cardiac dysrhythmias Generalized pain Anemia of renal disease Anemia in chronic kidney disease Primary hypertension Unspecified essential hypertension documented in this encounter [facility] noteNo assessment information availableA[facility] Work Phone: History general Narrative - Reported* Type Description Date [...] HIS RIGHT EYE Hospitalization History see above [facility] Other Reason for referral (narrative)* Diagnostic Procedure Only (Routine) - Pending Review Specialty Diagnoses / Procedures Referred By Ravi avendano Referred To Contact US IMAGING Diagnoses Chronic kidney disease, unspecified CKD stage Procedures US KIDNEY/BLADDER US RETROPERITONEAL REAL TIME W/IMAGE COMPLETE Lyndsay Salgado DO [address] [place] [address] [facility] Referral ID Status Reason Start Date Expiration Date Visits Requested Visits Authorized [id number] Pending Review Auto-Generat ed Referral 05/16/2023 06/14/2024 1 1 * Consult, Test, Treat (Routine) - Authorized Specialty Diagnoses / Procedures Referred By Ravi avendano Referred To Contact Pain Management Diagnoses Generalized pain Procedures CONSULT TO PAIN MGT OFFICE/OUTPATIENT NEW HIGH MDM 60-74 MINUTES Lyndsay Salgado DO [address] [place] [address] Referral ID Status Reason Start Date Expiration Date Visits Requested Visits Authorized [id number] Authorized PCP Requested Referral 05/16/2023 05/15/2024 1 1 * Consult, Test, Treat (Routine) - Authorized Specialty Diagnoses / Procedures Referred By Ravi t Referred To Contact Cardiology Diagnoses Bradycardia Procedures CONSULT TO CARDIOLOGY OFFICE/OUTPATIENT [facility] 60-74 MINUTES Lyndsay Salgado, DO [address] [place] [address] Referral ID Status Reason Start Date Expiration Date Visits Requested Visits Authorized [id number] Authorized PCP Requested Referral 05/16/2023 05/15/2024 1 1 [facility] Summary Purpose Family History No Family History Records Found Relationship Condition Age at Onset Recorded Date/T bridger father Heart disease Unknown Unknown family member Unknown Not Specified Diabetes mellitus Unknown Malignant neoplasm Unknown sister Heart disease Unknown Advance Directives No Advanced Directives Records Found Advance Directive Response Recorded Date/ Time Advance Directives No August 11, 2020 1:09pm Hospital Course Note HNO ID: [id number] Author: Jae mcgrath (Raquel Osullivan MD Service: Orthopaedic Surgery Author Type: [...] (Primary) Hypertension O (more content not included)... Chief Complaint and Reason for Visit Chief Complaint Z01.818 Additional Source Comments (unrecognized sect ion and content) No Status Records FoundNo Status Records FoundNo Status Records FoundNo Status Records FoundNo Status Records FoundNo Status Records FoundNo Status Records FoundNo Status Records FoundNo Status Records Found INFORMATION SOURCE (unrecogn ized section and content) DATE CREATED AUTHOR 12/10/2018 [facility] DATE CREATED AUTHOR AUTHOR'S ORGANIZ ATION 07/18/2019 [facility] DATE CREATED AUTHOR AUTHOR'S ORGANIZ ATION 07/01/2020 [facility] DATE CREATED AUTHOR AUTHOR'S ORGANIZ ATION 01/23/2021 [facility] DATE CREATED AUTHOR AUTHOR'S ORGANIZ ATION 03/24/2023 [facility] DATE CREATED AUTHOR AUTHOR'S ORGANIZ ATION 06/26/2023 [facility] DATE CREATED AUTHOR AUTHOR'S ORGANIZ ATION 11/15/2023 [facility] DATE CREATED AUTHOR AUTHOR'S ORGANIZ ATION 03/20/[address] [facility] DATE CREATED AUTHOR AUTHOR'S ORGANIZ ATION 06/28/2024 [facility] EPIC REASON FOR VISIT (unrecogniz ed section and content) Reason Comments New Patient Source Comments (unrecognize d section and content) In the event this informatio n is protected by the Federal Confidentiality of Alcohol and Drug Abuse Patient Records regulations: The Federal rules restrict any use of the information to criminally investigate or prosecute any alcohol or drug abuse patient.[facility] the event this information is protected by the Federal Confidentiality of Alcohol and Drug Abuse Patient Records regulations: The Federal rules restrict any use of the information to criminally investigate or prosecute any alcohol or drug abuse patient.[facility] the event this information is protected by the Federal Confidentiality of Alcohol and Drug Abuse Patient Records regulations: The Federal rules restrict any use of the information to criminally investigate or prosecute any alcohol or drug abuse patient.[facility] Care Teams (unrecognized sec tion and content) Side Splitter Relationship Specialty Start Date End Date Narciso Bullock MD PCP - General 07/06/09 Side Splitter Relationship Specialty Start Date End Date Narciso Bullock MD PCP - General 07/06/09 Side Splitter Relationship Specialty Start Date End Date Narciso Bullock MD PCP - General 07/06/09 Team Status: Active Member Role Status Dates Narciso Bullock MD Primary Care Provider Active Team Status: Inactive Member Role Status Dates Narciso Bullock MD Primary Care Provider Active Start: March 18, 2024 End: March 18, 2024 Queta Tilley PA-C Attending Provider Active S tart: March 18, 2024 End: March 18, 2024 Goals (unrecognized section and content) Goals may be documented in a n alternate section FOR RECORDS PERTAINING TO PATIENTS WHO ARE [...] BE BASED ON THE PRIMARY CLINICAL RECORDS. [employer] provides no warranty or guarantee of the accuracy or completeness of information in this document.
== END 2024-07-15 10:04 | disposition home or self-care (01) ==
LOC: SLEEP 10:04
PROVIDERS: PCP Family Medicine; Visit Provider Family Medicine
DX: G47.33 Obstructive sleep apnea (adult) (pediatric) (principal)
CPT/HCPCS: 95806

== ENCOUNTER 2024-10-17 15:54 | Outpatient (OUT) | payer MEDICARE, OTHER, SELFPAY ==
--- OUTSIDE RECORDS SUMMARY | 2024-10-17 16:19 | XMS_ITS | CCD ---
Author Organization [facility] Care Team Providers Care Life Insurance Agent Name Role Phone VANESACalista TRELL Jarrell Referring Unavailable Ileana Earl Unavailable ShuAiden juanradha Unavailable ARA ., DR STUART Primary Care Unavailable ELASHI, DR OWEN Admitting Unavailable ELASHI, DR OWEN Consulting Unavailable ELASHI, DR OWEN Attending Unavailable HOY ., DR [...] Unavailable HOY ., DR STUART Attending Unavailable Narciso Bullock MD Primary Care Provider [phone] NARCISO BULLOCK Primary Care Unavailable LYNDSAY SALGADO Referring Unavailable NARCISO BULLOCK Referring Unavailable NARCISO BULLOCK Primary Care Unavailable LYNDSAY SALGADO Attending Unavailable TAYLOR COREAS Attending Unavailable PARI ESCALANTE Attending Unavailable TAYLOR COREAS Attending Unavailable TAYLOR COREAS Attending Unavailable MD Narciso Bullock Primary Care Provider CHRISTINE Tilley Attending Provider Queta Tilley Attending Unavailable Queta Tilley Admitting Unavailable Narciso Bullock Primary Care Unavailable Narciso Bullock MD Primary Care Provider [phone] Narciso Bullock MD Primary Care Provider [phone] QUETA TILLEY Referring Unavailable NARCISO BULLOCK Primary Care Unavailable JAREK QUETA Mcnamara Attending Unavailable TILLEY, QUETA Mcnamara Referring Unavailable NARCISO BULLOCK Primary Care Unavailable JR JOSEPH., EL Matos Attending Unavaila ble STEPJAYCE, JR., EL Matos Referring Unavaila ble TILLEYQUETA Attending Unavailable MEDVES, SHIRLENE Rowe Attending Unavailable TILLEY, QUETA Mcnamara Referring Unavailable TILLEY, QUETA Mcnamara Attending Unavailable MEDVES, SHIRLENE M Attending Unavailable STEPJAYCE, JR., EL Matos Referring Unavaila ble GUZIKAMEENA Attending Unavailable STEPANIC, JR., EL Matos Referring Unavaila ble GUZIK, AMEENA Attending Unavailable STEPANIC, JR., EL Matos Referring Unavaila ble HOWARDBONILLA Attending Unavailable STEPANIC, JR., EL Matos Referring Unavaila ble HOWARDBONILLA Attending Unavailable STEPANIC, JR., EL Matos Referring Unavaila ble GUZIK, AMEENA Attending Unavailable STEPANIC, JR., EL Matos Referring Unavaila ble MEDVES, SHIRLENE Rowe Attending Unavailable STEPJAYCE, JR., EL Matos Referring Unavaila ble HOWARDBONILLA Attending Unavailable STEPJAYCE, JR., EL Matos Referring Unavaila ble GIACOMO CARMICHAEL Attending Unavailable STEPANIC, JR., EL Matos Referring Unavaila ble TILLEY, QUETA Mcnamara Attending Unavailable QUETA TILLEY Referring Unavailable MEDVES, SHIRLENE Rowe Attending Unavailable STEPJAYCE, JR., EL Matos Referring Unavaila ble STEPJAYCE, JR., EL Matos Attending Unavaila ble STEPJAYCE, JR., EL Matos Attending Unavaila ble TILLEYQUETA Attending Unavailable TILLEYQUETA Attending Unavailable SOUSAROSEANNE Attending Unavailable TILLEY, QUETA J Referring Unavailable SOUSAROSEANNE Attending Unavailable TILLEY, QUETA J Referring Unavailable SOUSAROSEANNE Attending Unavailable TILLEY, QUETA J Referring Unavailable HISGIACOMO TRIPATHI Attending Unavailable TILLEY, QUETA Mcnamara Referring Unavailable MEDVESSHIRLENE Attending Unavailable TILLEYQUETA Referring Unavailable SOUSAROSEANNE Attending Unavailable TILLEY, QUETA Mcnamara Referring Unavailable MEDVES, SHIRLENE M Attending Unavailable TILLEY, QUETA J Referring Unavailable TILLEY, QUETA J Attending Unavailable TILLEY, QUETA J Referring Unavailable MEDVES, SHIRLENE M Attending Unavailable TILLEY, QUETA J Referring Unavailable MEDVES, SHIRLENE M Attending Unavailable TILLEYQUETA Referring Unavailable Allergies Allergy Classification Reported Allergen(s) Allergy Type Date of Onset Reaction(s) Facility (20 sources) Acetaminophen / oxyCODONE Drug Allergy 4 Other [facility] (20 sources) Other Propensity to adverse reactions 4 Other [facility] Medications Current Medications Medication Drug Class(es) Dates Sig (Normalized) Sig (Original) acetaminophen 325 mg / HYDROcodone bitartrate 5 mg oral tablet (9 sources) Opioid Agonist Start: 09-17-2024 End: 09-22-2024 take 1 tablet by mouth every six hours for pain HYDROcodone-aceta minophen ([place]) 5-325 MG tablet Indications: S/P total knee replacement, left Take 1 tablet by mouth every 6 (six) hours if needed for severe pain for up to 5 days 20 tablet 09/17/2024 09/22/2024 Active Start: 08-29-2024 End: 09-10-2024 take 1 tablet by mouth every six hours for pain HYDROcodone-acetaminophen ([place]) 5-325 MG tablet Indications: Post-operative pain Take 1 tablet by mouth every 6 (six) hours if needed for severe pain for up to 5 days 20 tablet 09/05/2024 09/10/2024 Active Start: 08-21-2024 End: 08-26-2024 take 1 tablet by mouth every six hours for pain HYDROcodone-acetaminophen ([place]) 5-325 MG tablet Indications: Post-operative pain Take 1 tablet by mouth every 6 (six) hours if needed for severe pain for up to 5 days 20 tablet 08/21/2024 08/26/2024 Active Acidophilus Extra Strength - (2 sources) Acidophilus Extr a Strength - as directed Orally Active [place] 500 MG (2 sources) [place] 500 MG a s directed Orally Active artemether / lumefantrine (1 source) Antimalarial Artemether-Lumef antrine 20-120 MG as directed Orally Active chlorhexidine gluconate 40 mg/ml medicated liquid soap (3 sources) Start: 08-13-2024 End: 08-13-2024 Chlorhexidine Gluconate (Hibiclens) 4 % solution Indications: Preop examination , Primary osteoarthritis of left knee Apply 1 Dose topically 1 time for 1 dose As directed night before surgery 118 mL 08/13/2024 08/13/2024 Active Coconut Oil (2 sources) Coconut Oil TWIC E A DAY Active Coconut Oil Acti ve diclofenac sodium 1 mg/ml ophthalmic solution (20 sources) Nonsteroidal Anti-inflammatory Drug diclofenac (Voltaren ) 0.1 % ophthalmic solution 1 drop in the morning and 1 drop at noon and 1 drop in the evening and 1 drop before bedtime. Active take 1 tablet by mouth twice renee ly diclofenac, EC, (VOLTAREN) 25 mg EC tablet Take 25 mg by mouth twice daily. 0 Active take 1 tablet by dom th every twelve hours Diclofenac Sodium 75 MG 1 tablet Orally Twice a day Active Comment on above: Take 25 mg by mouth twice daily. ferrous sulfate 325 mg oral tablet (20 sources) take 1 tablet by mouth in the morning FeroSul 325 (65 Fe) MG tablet Take 1 tablet by mouth in the morning and 1 tablet before bedtime. Active Fish Oils (2 sources) take 1 capsule by mouth once daily Fish Oil 1000 MG 1 capsule Orally Once a day Active folic acid 1 mg / polysaccharide iron complex 150 mg / vitamin b12 0.025 mg oral capsule (12 sources) Vitamin B12 Start: End: 4 take 1 tablet by mouth once daily Iron Polysacch [id number] (Poly-Iron 150 Forte) 150-0.025-1 MG capsule Indications: Preop examination , Primary osteoarthritis of left knee Take 1 tablet by mouth Daily 30 capsule 1 08/13/2024 09/12/2024 Active gabapentin 300 mg oral capsule (20 sources) Anti-epileptic Agent Start: 4 End: 4 take 1 capsule by mouth in the morning gabapentin (Neurontin) 300 MG capsule Indications: Post-operative pain Take 1 capsule (300 mg) by mouth in the morning and 1 capsule (300 mg) before bedtime. Do all this for 7 days. 14 capsule 08/30/2024 Active Start: 04-03-2024 End: 06-26-2024 take 1 capsule by mouth in the morning gabapentin (Neurontin) 300 MG capsule Indications: Post-operative pain Take 1 capsule (300 mg) by mouth in the morning and 1 capsule (300 mg) before bedtime. Do all this for 7 days. 14 capsule 04/03/2024 06/26/2024 Discontinued Glucosamine Chond MSM Formula - (2 sources) Glucosamine Barrett d MSM Formula - as directed Orally TWICE A DAY Active irbesartan 150 mg oral tablet (20 sources) Angiotensin 2 Receptor Igor Start: 12-08-19 irbesartan (Avapro) 150 MG tablet 1 (one) time each day at the same time 12/08/2023 Active Multivitamins (2 sources) Multivitamins as directed Orally Active quercetin 50 mg oral tablet (1 source) take 1 tablet by mouth once daily Quercetin 50 MG 1 tablet Orally Once a day Active [place] 540 mg (2 sources) take 1 capsule by mouth once daily [place] 540 mg 1 Capsule Orally Daily Active spironolactone 50 mg oral tablet (20 sources) Aldosterone Antagonist take 1 tablet by mouth in the morning spironolactone (Aldactone) 50 MG tablet Take 50 mg by mouth in the morning. Active Comment on above: Take 50 mg by mouth once daily. tamsulosin hydrochloride 0.4 mg oral capsule (20 sources) alpha-Adrenergic Igor Start: 08-14-20 tamsulosin (Flomax) 0.4 MG 24 hr capsule 08/14/2023 Active Start: 09-30-2016 take 0.4 mg by mouth once daily tamsulosin ER (FLOMAX) 0.4 mg cp24 Indications: Prostate cancer (HCC) Take 0.4 mg by mouth once daily. 0 09/30/2016 Active Comment on above: Take 0.4 mg by mouth once daily. taurine 500 mg oral tablet (2 sources) take 1 capsule by mouth once daily Taurine 500 MG 1 capsule Orally Once a day Active triamcinolone acetonide 1 mg/ml topical cream (20 sources) Corticosteroid Start: 08-13-20 triamcinolone (Kenalog) 0.1 % cream Indications: Eczema, unspecified type Apply topically 2 (two) times a day 15 g 1 08/13/2024 Active turmeric extract 500 mg oral capsule (2 sources) Turmeric 500 MG as directed Orally Active ubidecarenone 200 mg oral capsule (2 sources) take 1 capsule by mouth every twenty-four hours CoQ10 200 MG 1 capsule with a meal Orally Once a day for 30 day(s) Active Vitamin C 1000 mg (2 sources) take 1 tablet by mouth once daily Vitamin C 1000 mg 1 tablet Orally Once a day Active Vitamin E 400 UNIT (2 sources) take 1 capsule by mouth once daily Vitamin E 400 UNIT 1 [...] 0 Active take 1 tablet by dom every twenty-four hours Aspirin 81 MG 1 tablet Orally Once a day Active Comment on above: Take 81 mg by mouth once daily. Take 1 tablet by dom twice daily for 14 days. celecoxib 200 mg oral capsule (2 sources) Nonsteroidal Anti-inflammatory Drug Start: 4 End: 4 take 1 capsule by mouth once daily celecoxib (CeleBREX) 200 MG capsule Indications: Post-operative pain Take 1 capsule (200 mg) by mouth Daily for 14 days 14 capsule 08/21/2024 09/04/2024 docusate sodium 100 mg oral capsule (1 source) Start: 9 End: 3 take 1 capsule by mouth twice daily docusate sodium (COLACE) 100 mg capsule Take 1 capsule by mouth twice daily. 60 capsule 1 07/16/2019 05/16/2023 Discontinued Comment on above: Take 1 capsule by mo [facility] twice daily. Garlic preparation (1 source) Non-Standardized [...] Comment on above: Take 1 capsule by [facility] once daily. lecithin 1200 mg oral capsule (1 source) End: 3 take 1 capsule by mouth once daily Lecithin 1,200 mg cap Take 1 capsule by mouth once daily. 0 05/16/2023 Discontinued Comment on above: Take 1 capsule by [facility] once daily. losartan potassium 100 mg [...] Take 1 tablet by dom once daily. mupirocin 0.02 mg/mg topical ointment [...] prior to and including day of surgery. Dnibq-8-PHJ-EPA-Fish Oil (FISH OIL) 1,000 mg (120 mg-180 mg) cap (3 sources) take 1 capsule by mouth once daily Rchoi-0-WJB-EPA-Fish Oil (FISH OIL) 1,000 mg (120 mg-180 [...] 50 mg by mouth once daily. [place] 160 mg capsule (3 sources) take 1 capsule by mouth three times daily [place] 160 mg capsule Take 160 mg by mouth three times daily. 0 Active Comment on above: Take 160 mg by mouth three times daily. turmeric-turmeric root extract 450-50 mg cap [...] Classification Problem Date Documented Da te Episodic/Chronic Allergic reactions (2 sources) Eczema; Translations: [Dermatitis, unspecified] 08-13-2024 Episodic Cardiac dysrhythmias (2 sources) Supraventricular tachycardia; Translations: [...] kidney disease] Onset: 1 Resolved: 1 Chronic Malignant neoplasm without specification of site (20 sources) Malignant neoplastic disease; Translations: [Malignant (primary) neoplasm, unspecified] Onset: 4 03-18-2024 Chronic Osteoarthritis (20 sources) Primary osteoarthritis, right shoulder; Translations: [Localized, primary osteoarthritis of the shoulder region] Onset: 8 Resolved: 1 Chronic Other aftercare (20 sources) Patient encounter status; Translations: [Aftercare following joint replacement surgery] Onset: 4 04-22-2024 Chronic Other connective tissue disease (1 source) [...] artificial shoulder joint] Onset: 9 07-01-2021 Chronic Other connective tissue disease (20 sources) Artificial knee joint present; Translations: [Presence of right artificial knee joint] Onset: 4 04-22-2024 Chronic Other connective tissue disease (20 sources) History of total knee arthroplasty; Translations: [Presence of left artificial knee joint] Onset: 4 09-05-2024 Chronic Other nervous system disorders (4 sources) Postoperative pain ; Translations: [Other acute postprocedural pain] 08-21-2024 Episodic Other nervous system disorders (20 sources) Other acute postprocedural pain; Translations: [Pain in joint, lower leg] Onset: 4 09-11-2024 Episodic Other non-traumatic joint disorders (3 sources) Pain in right knee; Translations: [Pain in joint, lower leg] 08-07-2024 Episodic Residual codes; unclassified (1 source) Generalized aches [...] Translations: [Supraventricular tachycardia, unspecified] Onset: 3 Unclassified (2 sources) Preprocedural examination done 08-13-2024 Past or Other Problems Problem Classification Problem Date Documented Date Episodic/Chronic Cardiac dysrhythmias (3 sources) Bradycardia; Translations: [Bradycardia, unspecified] Onset: 06-06-2023 05-16-2023 Episodic Diabetes mellitus without complication (1 source) Other abnormal glucose; Translations: [OTHER ABNORMAL GLUCOSE] Onset: 09-02-2022 Episodic Malaise and fatigue (1 source) Other fatigue; Translations: [OTHER FATIGUE] Onset: 09-02-2022 Episodic Other aftercare (1 source) Other skilled nursing (current) drug therapy; Translations: [OTH USP CURRENT DRUG THERAPY] Onset: 09-02-2022 Episodic Other [...] Test Name Value Interpretation Reference Range Facility XR Knee - left 1 or 2 Viewso n 10-03-2024 Imaging Result: AP and Lateral of left knee: Surgical position and alignment of prosthetic components without evidence of loosening or wear to femora, tibial or patellar components, The alignment appears to be anatomic. No evidence of accelerated or asymmetric wear to tibial tray or patella button. No evidence of fracture or dislocation. Impression: Unremarkable left total knee arthroplasty [facility] Radiology Study observation (narrative) [facility] APTTon 08-13-2024 aPTT Coag (PPP) [Time] 35 s Pr [employer] Comment on above: NEW REFERENCE RANGE aPTT Coag (Bld) [Time] [address] [facility] Comment on above: NEW REFERENCE RANGE PERFORMED AT [address] [place] [address] CBC AND AUTO DIFFon 08-13-20 ABSOLUTE BASOPHIL 0.1 X10E9/L Normal 0.0-0.2 [facility] Comment on above: Performed By: #### 1 4979-9 #### [facility] ([id number]) [address] [place] [phone] #### CBCA, PINR, CMP #### [facility] ([id number]) [address], [address] [place] [address] ABSOLUTE NEUTROPHIL 5.3 X10E9/L Normal 1.5-6.6 [facility] Comment on above: Performed By: #### 1 4979-9 #### [facility] ([id number]) [address] [place] [phone] #### CBCA, PINR, CMP #### [facility] ([id number]) [address], [address] [place] [address] Basophils/100 WBC (Bld) 0.8 % Normal [facility] Comment on above: Performed By: #### 1 4979-9 #### [facility] ([id number]) [address] [place] [address] #### CBCA, PINR, CMP #### [facility] ([id number]) [address], [address] [place] [address] Eosinophils (Bld) [#/Vol] 0.2 10*3/uL Normal 0.0-0.4 [facility] Comment on above: Performed By: #### 1 4979-9 #### [facility] ([id number]) [address] [place] [address] #### CBCA, PINR, CMP #### [facility] ([id number]) [address], [address] [place] [address] Eosinophils/100 WBC (Bld) 2.1 % Normal [facility] Comment on above: Performed By: #### 1 4979-9 #### [facility] ([id number]) [address] [place] [address] #### CBCA, PINR, CMP #### [facility] ([id number]) [address], [address] [place] [address] Erythrocyte distribution width (RBC) [Ratio] 13.9 % Normal 11.5-15.0 [facility] Comment on above: Performed By: #### 1 4979-9 #### [facility] ([id number]) [address] [place] [address] #### CBCA, PINR, CMP #### [facility] ([id number]) [address] [facility], [address] [place] [address] Hematocrit (Bld) [Volume fraction] 39.0 % Normal 39-49 [facility] Comment on above: Performed By: #### 1 4979-9 #### [facility] ([id number]) [address] [place] [address] #### CBCA, PINR, CMP #### [facility] ([id number]) [address], [address] [place] [address] Hemoglobin (Bld) [Mass/Vol] 13.3 g/dL Normal 13.0-17.0 [facility] Comment on above: Performed By: #### 1 4979-9 #### [facility] ([id number]) [address] [place] [address] #### CBCA, PINR, CMP #### [facility] ([id number]) [address], [address] [place] [address] Lymphocytes (Bld) [#/Vol] 1.8 10*3/uL Normal 1.0-3.5 [facility] Comment on above: Performed By: #### 1 4979-9 #### [facility] ([id number]) [address] [place] [address] #### CBCA, PINR, CMP #### [facility] ([id number]) [address] [facility], [address] [place] [address] Lymphocytes/100 WBC (Bld) 22.6 % Normal [facility] Comment on above: Performed By: #### 1 4979-9 #### [facility] ([id number]) [address] [place] [address] #### CBCA, PINR, CMP #### [facility] ([id number]) [address] [facility], [address] [place] [address] MCH (RBC) [Entitic mass] 31.5 pg Normal 27-34 [facility] Comment on above: Performed By: #### 1 4979-9 #### [facility] ([id number]) [address] [place] [address] #### CBCA, PINR, CMP #### [facility] ([id number]) [address] [facility], [address] [place] [address] MCHC (RBC) [Mass/Vol] 34.0 g/dL Normal 32-36 [facility] Comment on above: Performed By: #### 1 4979-9 #### [facility] ([id number]) [address] [place] [address] #### CBCA, PINR, CMP #### [facility] ([id number]) [address] [facility], [address] [place] [address] MCV (RBC) [Entitic vol] 93 fL Normal 80-100 [facility] Comment on above: Performed By: #### 1 4979-9 #### [facility] ([id number]) [address] [place] [phone] #### CBCA, PINR, CMP #### [facility] ([id number]) [address], [address] [place] [address] Monocytes (Bld) [#/Vol] 0.7 10*3/uL Normal 0-0.9 [facility] Comment on above: Performed By: #### 1 4979-9 #### [facility] ([id number]) [address] [place] [address] #### CBCA, PINR, CMP #### [facility] ([id number]) [address], [address] [place] [address] Monocytes/100 WBC (Bld) 8.2 % Normal [facility] Comment on above: Performed By: #### 1 4979-9 #### [facility] ([id number]) [address] [place] [address] #### CBCA, PINR, CMP #### [facility] ([id number]) [address] [place] [address] Neutrophils/100 WBC (Bld) 66.3 % Normal [facility] Comment on above: Performed By: #### 1 4979-9 #### [facility] ([id number]) [address] [place] [address] #### CBCA, PINR, CMP #### [facility] ([id number]) [address] [place] [address] Platelet mean volume (Bld) [Entitic vol] 8.2 fL Normal 7-12 [facility] Comment on above: Performed By: #### 1 4979-9 #### [facility] ([id number]) [address] [place] [phone] #### CBCA, PINR, CMP #### [facility] ([id number]) [address] [place] [address], [address] [place] [address] Platelets (Bld) [#/Vol] 227 10*3/uL Normal 150-450 [facility] Comment on above: Performed By: #### 1 4979-9 #### [facility] ([id number]) [address] [place] [address] #### CBCA, PINR, CMP #### [facility] ([id number]) [address] [place] [address], [address] [place] [address] RBC COUNT 4.22 X10E12/L Normal 4.10-5.70 [facility] Comment on above: Performed By: #### 1 4979-9 #### [facility] ([id number]) [address] [place] [address] #### CBCA, PINR, CMP #### [facility] ([id number]) [address] [place] [address], [address] [place] [address] WBC (Bld) [#/Vol] 8.0 10*3/uL Normal 4.0-11.0 [facility] Comment on above: Performed By: #### 1 4979-9 #### [facility] ([id number]) [address] [place] [address] #### CBCA, PINR, CMP #### [facility] ([id number]) [address] [place] [address], [address] [place] [address] CBC auto differentialon 07-17 Basophils (Bld) [#/Vol] 0.1 10*3/uL [facility] Basophils/100 WBC (Bld) 0.8 % [facility] Eosinophils (Bld) [#/Vol] 0.2 10*3/uL [facility] Eosinophils/100 WBC (Bld) 2.1 % [facility] Erythrocyte distribution width (RBC) [Ratio] 13.9 % 11.5 - 15.0 % [facility] Hematocrit (Bld) [Volume fraction] 39 % 39 - 49 % [facility] Hemoglobin (Bld) [Mass/Vol] 13.3 g/dL 13.0 - 17.0 g/dL [facility] Lymphocytes (Bld) [#/Vol] 1.8 10*3/uL [facility] Lymphocytes/100 WBC (Bld) 22.6 % [facility] MCH (RBC) [Entitic mass] 31.5 pg 27 - 34 pg [facility] MCHC (RBC) [Mass/Vol] 34 g/dL 32 - 3 6 g/dL [facility] MCV (RBC) [Entitic vol] 93 fL 80 - 100 fL [facility] Monocytes (Bld) [#/Vol] 0.7 10*3/uL [facility] Monocytes/100 WBC (Bld) 8.2 % [facility] Neutrophils (Bld) [#/Vol] 5.3 10*3/uL [facility] Neutrophils/100 WBC (Bld) 66.3 % [facility] Platelet mean volume (Bld) [Entitic vol] 8.2 fL 7 - 12 fL [facility] Platelets (Bld) [#/Vol] 227 10*3/uL [facility] RBC (Bld) [#/Vol] 4.22 10*6/uL [facility] WBC corrected for nucl RBC Auto (Bld) [#/Vol] 8 [facility] COMPREHENSIVE METABOLIC PANE Juan Daniel 08-13-2024 Albumin [Mass/Vol] 4.1 g/dL Normal 3.2-5.3 [facility] Comment on above: Performed By: #### 1 4979-9 #### [facility] ([id number]) [address] [facility], [place] [address] #### CBCA, PINR, CMP #### [facility] ([id number]) [address] [facility], [address] [place] [address] ALP [Catalytic activity/Vol] 40 U/L Normal 39-130 [facility] Comment on above: Performed By: #### 1 4979-9 #### [facility] ([id number]) [address] [place] [address] #### CBCA, PINR, CMP #### [facility] ([id number]) [address] [place] [address] ALT [Catalytic activity/Vol] 21 U/L Normal 0-40 [facility] Comment on above: Performed By: #### 1 4979-9 #### [facility] ([id number]) [address] [place] [address] 19689 #### CBCA, PINR, CMP #### [facility] ([id number]) [address], [address] [place] [address] Anion gap [Moles/Vol] 7 mmol/L Normal 5-15 [facility] Comment on above: Performed By: #### 1 4979-9 #### [facility] ([id number]) [address] [place] [address] 40101 #### CBCA, PINR, CMP #### [facility] ([id number]) [address] [place] [address] AST [Catalytic activity/Vol] 17 U/L Normal 0-41 [facility] Comment on above: Performed By: #### 1 4979-9 #### [facility] ([id number]) [address] [place] [address] 83862 #### CBCA, PINR, CMP #### [facility] ([id number]) [address] [place] [address] Bilirubin [Mass/Vol] 0.4 mg/dL Normal 0.3-1.2 [facility] Comment on above: Performed By: #### 1 4979-9 #### [facility] ([id number]) [address] [place] [address] 63218 #### CBCA, PINR, CMP #### [facility] ([id number]) [address], [address] [place] [address] Calcium [Mass/Vol] 9.1 mg/dL Normal 8.5-10.5 [facility] Comment on above: Performed By: #### 1 4979-9 #### [facility] ([id number]) [address] [place] [address] 05062 #### CBCA, PINR, CMP #### [facility] ([id number]) [address] [facility], [address] [place] [address] Chloride [Moles/Vol] 100 mmol/L Normal 98-109 [facility] Comment on above: Performed By: #### 1 4979-9 #### [facility] ([id number]) [address] [place] [address] 52291 #### CBCA, PINR, CMP #### [facility] ([id number]) [address] [facility], [address] [place] [address] CO2 [Moles/Vol] 27 mmol/L Normal 22-32 [facility] Comment on above: Performed By: #### 1 4979-9 #### [facility] ([id number]) [address] [place] [address] 49680 #### CBCA, PINR, CMP #### [facility] ([id number]) [address] [place] [address] Creatinine [Mass/Vol] 1.21 mg/dL Normal 0.60-1.30 [facility] Comment on above: Result Comment: METH OD TRACEABLE TO IDMS STANDARD Performed By: #### 1 4979-9 #### [facility] ([id number]) [address] [place] [address] 47143 #### CBCA, PINR, CMP #### [facility] ([id number]) [address] [place] [address] GFR/1.73 sq M.predicted among non-blacks MDRD (S/P/Bld) [Vol rate/Area] 61 mL/min/{1.73_m2} Normal >59 [facility] Comment on above: Result Comment: Reported eGFR is based on the CKD-EPI 2020 equation that does not use a race coefficient. Performed By: #### 1 4979-9 #### [facility] ([id number]) [address] [place] [address] #### KRYS PINR, CMP #### [facility] ([id number]) [address] [place] [address] Glucose [Mass/Vol] 87 mg/dL Normal 65-99 [facility] Comment on above: Performed By: #### 1 4979-9 #### [facility] ([id number]) [address] [place] [address] #### KRYS, PINR, CMP #### [facility] ([id number]) [address] [place] [address] Potassium [Moles/Vol] 4.2 mmol/L Normal 3.5-5.0 [facility] Comment on above: Performed By: #### 1 4979-9 #### [facility] ([id number]) [address] [place] [address] 25715 #### CBCA, PINR, CMP #### [facility] ([id number]) [address] [place] [address] Protein [Mass/Vol] 6.6 g/dL Normal 6.0-8.0 [facility] Comment on above: Performed By: #### 1 4979-9 #### [facility] ([id number]) [address] [place] [address] 37107 #### CBCA, PINR, CMP #### [facility] ([id number]) [address] [facility], [address] [place] [address] Sodium [Moles/Vol] 134 mmol/L Normal 134-146 [facility] Comment on above: Performed By: #### 1 4979-9 #### [facility] ([id number]) [address] [place] [address] 13004 #### CBCA, PINR, CMP #### [facility] ([id number]) [address] [facility], [address] [place] [address] Urea nitrogen [Mass/Vol] 29 mg/dL High 5-27 [facility] Comment on above: Performed By: #### 1 4979-9 #### [facility] ([id number]) [address] [place] [address] 86707 #### CBCA, PINR, CMP #### [facility] ([id number]) [address] [facility], [address] [place] [address] Comprehensive metabolic pane [facility] 08-13-2024 Albumin [Mass/Vol] 4.1 g/dL 3.2 - 5.3 g/dL [facility] ALP [Catalytic activity/Vol] 40 U/L 39 - 130 U/L [facility] ALT No additional P-5'-P [Catalytic activity/Vol] 21 U/L 0 - 40 U/L [facility] Anion gap [Moles/Vol] 7 mmol/L 5 - 15 mmol/L [facility] AST [Catalytic activity/Vol] 17 U/L 0 - 41 U/L [facility] Bilirubin [Mass/Vol] 0.4 mg/dL 0.3 - 1 .2 mg/dL [facility] Calcium [Mass/Vol] 9.1 mg/dL 8.5 - 10. 5 mg/dL [facility] Chloride [Moles/Vol] 100 mmol/L 98 - 10 9 mmol/L [facility] CO2 [Moles/Vol] 27 mmol/L 22 - 32 mmol/L [facility] Creatinine [Mass/Vol] 1.21 mg/dL 0.60 - 1.30 mg/dL [facility] Comment on above: METHOD TRACEABLE TO IDMO STANDARD eGFR (CKD-EPI)non-race dependent 61 - PINF [facility] Comment on above: Reported eGFR is based on the CKD-EPI 2020 equation that does not use a race coefficient. Glucose [Mass/Vol] 87 mg/dL 65 - 99 mg/dL [facility] Interpretation and review of laboratory results Abnormal [facility] Potassium [Moles/Vol] 4.2 mmol/L 3.5 - 5.0 mmol/L [facility] Protein [Mass/Vol] 6.6 g/dL 6.0 - 8.0 g/dL [facility] Sodium [Moles/Vol] 134 mmol/L 134 - 146 mmol/L [facility] Urea nitrogen [Mass/Vol] 29 mg/dL High 5 - 27 mg/dL [facility] PROTIME AND INRon 08-13-2024 INR Coag (PPP) [Relative time] 1.0 {INR} Normal 0.8-1.1 [facility] Comment on above: Performed By: #### 1 4979-9 #### [facility] ([id number]) [address] [place] [address] [phone] #### CBCA, PINR, CMP #### [facility] ([id number]) [address] [facility], [address] [place] [address] PT Coag (PPP) [Time] 11.1 s Normal 9.8-13.2 [facility] Comment on above: Performed By: #### 1 4979-9 #### [facility] ([id number]) [address] [place] [address] 19392 #### CBCA, PINR, CMP #### [facility] ([id number]) [address] [place] [address], [address] [place] [address] Protime & INRon 08-13-2024 INR Coag (PPP) [Relative time] 1 {INR} [facility] PT Coag (PPP) [Time] 11.1 s [facility] URINALYSISon 08-13-2024 Bilirubin Ql (U) Negative Normal NEG [facility] Comment on above: Performed By: #### U A #### [facility] ([id number]) [address] [place] [address], [address] [place] [address] BLOOD/HGB Negative Normal NEG [facility] Comment on above: Performed By: #### U A #### [facility] ([id number]) [address] [place] [address], [address] [place] [address] Color (U) YELLOW Normal YELLOW [facility] Comment on above: Performed By: #### U A #### [facility] ([id number]) [address] [place] [address], [address] [place] [address] Glucose Ql (U) Negative Normal NEG [facility] Comment on above: Performed By: #### U A #### [facility] ([id number]) [address] [place] [address], [address] [place] [address] Ketones Ql (U) Negative Normal NEG [facility] Comment on above: Performed By: #### U A #### [facility] ([id number]) [address] [place] [address], [address] [place] [address] Leukocyte esterase Test strip Ql (U) Negative Normal NEG [facility] Comment on above: Performed By: #### U A #### [facility] ([id number]) [address] [place] [address], [address] [place] [address] MUCOUS PRESENT Abnormal NONE [facility] Comment on above: Performed By: #### U A #### [facility] ([id number]) [address] [place] [address], [address] [place] [address] Nitrite Ql (U) Negative Normal NEG [facility] Comment on above: Performed By: #### U A #### [facility] ([id number]) [address] [facility], [address] [place] [address] pH (U) 6.0 [pH] Normal 5.0-8.5 [facility] Comment on above: Performed By: #### U A #### [facility] ([id number]) [address] [facility] [address] [place] [address] Protein Ql (U) Trace Abnormal NEG [facility] Comment on above: Performed By: #### U A #### [facility] ([id number]) [address] [facility] [address] [place] [address] R.B.CELLS <1 Normal 0-5 [facility] Comment on above: Performed By: #### U A #### [facility] ([id number]) [address] [facility], [address] [place] [address] Specific gravity (U) [Rel density] 1.028 Normal 1.003-1.03 5 [facility] Comment on above: Performed By: #### U A #### [facility] ([id number]) [address] [facility] [address] [place] [address] TURBIDITY CLEAR Normal CLEAR [facility] Comment on above: Performed By: #### U A #### [facility] ([id number]) [address] [facility] [address] [place] [address] Urobilinogen (U) [Mass/Vol] mg/dL Normal <1.1 [facility] Comment on above: Performed By: #### U A #### [facility] ([id number]) [address] [facility], [address] [place] [address] W.B.CELLS 1 /hpf Normal 0-5 [facility] Comment on above: Performed By: #### U A #### [facility] ([id number]) [address] [place] [address] URINE CULTUREon 08-13-2024 Bacteria identified Cx Nom (U) CULTURE RESULTS <10,000 ORGANISMS/ML NORMAL URO GENITAL PAM Normal [facility] Comment on above: Performed By: #### 6 30-4 #### [facility] ([id number]) [address] [place] [address] aPTT Coag (Bld) [Time]on [facility] aPTT Coag (PPP) [Time]on [facility] aPTT Coag (Bld) [Time] 35 s Normal 26-37 [facility] Comment on above: Result Comment: NEW REFERENCE RANGE Performed By: #### 1 4979-9 #### [facility] ([id number]) [address] [place] [address], [place] [address] #### CBCA, PINR, CMP #### [facility] ([id number]) [address] [place] [address] Activated partial thrombopla stin time (aPTT) in platelet poor plasma by coagulation aOrdered By: Queta Tilley on 03-18-2024 aPTT Coag (PPP) [Time] 33.7 s 25.1-36.5 [facility] Comment on above: A hematocrit value g reater than 55% may lead to inaccurate results in coagulation testing. Patients having hematocrit values >55% require a special collection tube for coagulation studies. Please contact the laboratory at [phone] for redraw instructions. Alanine aminotransferase [En zymatic activity/volume] in Serum or PlasmaOrdered By: Queta Tilley on 03-18-2024 ALT [Catalytic activity/Vol] 22 U/L Normal 7-52 [facility] Comment on above: Performed By: #### C MP #### [address] Albumin [Mass/volume] in Ser um or Plasma by Bromocresol green (BCG) dye binding methoOrdered By: Queta Tilley on 03-18-2024 Albumin BCG dye [Mass/Vol] 4.6 g/dL 3.5-5.7 [facility] Alkaline phosphatase [Enzyma tic activity/volume] in Serum or PlasmaOrdered By: Queta Tilley on 03-18-2024 ALP [Catalytic activity/Vol] 37 U/L Normal 34-104 [facility] Comment on above: Result Comment: PERF ORMED BY: [place] [address] PATHOLOGIST ORTHOPAEDIC NURSE HUGO AVALOS M.D. Performed By: #### C MP #### [address] Aspartate aminotransferase [ Enzymatic activity/volume] in Serum or PlasmaOrdered By: Queta Tilley on 03-18-2024 AST [Catalytic activity/Vol] 16 U/L Normal 13-39 [facility] Comment on above: Performed By: #### C MP #### [address] Automated basophil %Ordered By: Queta Tilley on 03-18-2024 Basophils/100 WBC (Bld) 0.6 % Normal . [facility] Comment on above: Performed By: #### C BC #### [address] Automated basophil countOrde red By: Queta Tilley on 03-18-2024 Basophils (Bld) [#/Vol] 0.1 10*3/uL Normal 0.0-0.2 [facility] Comment on above: Result Comment: PERF ORMED BY: [place] [address] PATHOLOGIST ORTHOPAEDIC NURSE HUGO AVALOS M.D. Performed By: #### C BC #### [address] Automated blood monocyte cou ntOrdered By: Queta Tilley on 03-18-2024 Monocytes (Bld) [#/Vol] 0.8 10*3/uL Normal 0.0-0.8 [facility] Comment on above: Performed By: #### C BC #### [address] Automated eosinophil %Ordere d By: Queta Jarek on 03-18-2024 Eosinophils/100 WBC (Bld) 0.8 % Normal . [facility] Comment on above: Performed By: #### C BC #### [address] Automated eosinophil countOr dered By: Queta Jarek on 03-18-2024 Eosinophils (Bld) [#/Vol] 0.1 10*3/uL Normal 0.0-0.45 [facility] Comment on above: Performed By: #### C BC #### [address] Automated monocyte %Ordered By: Queta Tilley on 03-18-2024 Monocytes/100 WBC (Bld) 8.0 % Normal . [facility] Comment on above: Performed By: #### C BC #### [address] Automated neutrophil %Ordere d By: Queta Tilley on 03-18-2024 Neutrophils/100 WBC (Bld) 64.7 % Normal . [facility] Comment on above: Performed By: #### C BC #### [address] Bilirubin Test strip Ql (U)O rdered By: Queta Tilley on 03-18-2024 Bilirubin Ql (U) Negative Negative [facility] Bilirubin.total [Mass/volume ] in Serum or PlasmaOrdered By: Queta Tilley on 03-18-2024 Bilirubin [Mass/Vol] 0.5 mg/dL Normal 0.3-1.0 [facility] Comment on above: Performed By: #### C MP #### [address] Calcium [Mass/volume] in Ser um or PlasmaOrdered By: Queta Tilley on 03-18-2024 Calcium [Mass/Vol] 9.7 mg/dL Normal 8.6-10.3 [facility] Comment on above: Performed By: #### C MP #### [address] Carbon dioxide, total [Moles /volume] in Serum or PlasmaOrdered By: Queta Tilley on 03-18-2024 CO2 [Moles/Vol] 27.0 mmol/L Normal 21.0-31.0 [facility] Comment on above: Performed By: #### C MP #### [address] Chloride [Moles/volume] in S hafsa or PlasmaOrdered By: Queta Tilley on 03-18-2024 Chloride [Moles/Vol] 97 mmol/L Low 98-107 [facility] Comment on above: Performed By: #### C MP #### [address] Color of Urine by AutoOrdere d By: Queta Tilley on 03-18-2024 Color (U) Yellow Normal Yellow [facility] Comment on above: Order Comment: Name Collection Type:: Clean-Voided Midstream Performed By: #### U A #### [address] Complete Blood Count Auto Di ffon 03-18-2024 Mean Corpuscular HGB Conc 33.6 g/dL Normal 32.5-35.6 [facility] Comment on above: Performed By: #### C BC #### [address] NRBC% 0.4 /100{WBC} Normal 0-0.5 [facility] Comment on above: Performed By: #### C BC #### [address] Comprehensive Metabolic Pane juan daniel 03-18-2024 Albumin [Mass/Vol] 4.6 g/dL Normal 3.5-5.7 [facility] Comment on above: Performed By: #### C MP #### [address] GFR/1.73 sq M.predicted MDRD (S/P/Bld) [Vol rate/Area] mL/min/{1.73_m2} Normal [facility] Comment on above: Performed By: #### C MP #### [address] Creatinine [Mass/volume] in Serum or PlasmaOrdered By: Queta Tilley on 03-18-2024 Creatinine [Mass/Vol] 1.19 mg/dL Normal 0.70-1.30 [facility] Comment on above: Performed By: #### C MP #### [address] ECG 12 lead ECGon 03-18-2024 ECG 12 lead ECG [facility] [place] [address] [place] [address] Electrocardiograph Report Signed Patient: Amina Lim MR#: [id number] 4 : 1945 Acct:[id number] Age/Sex: 78 / M ADM Date: 03/18/24 Loc: Room: Type: [facility] Attending Dr: Queta Tilley PA-C Ordering Provider: [...] Hammonds MD 0 03/18/24 1508 Normal [facility] Erythrocyte distribution wid th [Ratio] by Automated countOrdered By: Queta Tilley on 03-18-2024 Erythrocyte distribution width (RBC) [Ratio] 14.1 % Normal 12.0-14.8 [facility] Comment on above: Performed By: #### C BC #### [facility] [address] Erythrocytes [#/volume] in B lood by Automated countOrdered By: Queta Tilley on 03-18-2024 RBC (Bld) [#/Vol] 4.42 10*6/uL Normal 3.90-5.60 [facility] Comment on above: Performed By: #### C BC #### [facility] [address] Glucose [Mass/volume] in Ser um or PlasmaOrdered By: Queta Tilley on 03-18-2024 Glucose [Mass/Vol] 93 mg/dL Normal 70-100 [facility] Comment on above: ADA recommended refe rence rangeRandom Glucose Reference Range is dependent on time and content of last meal. Glucose of more than 200 mg/dL in a nonstressed, ambulatory subject supports the diagnosis of Diabetes Mellitus. Result Comment: [place] Glucose Reference Range is dependent on time and content of last meal. Glucose of more than 200 mg/dL in a nonstressed, ambulatory subject supports the diagnosis of Diabetes Mellitus. ADA recommended reference range Performed By: #### C MP #### [address] Glucose [Mass/volume] in Uri ne by Test stripOrdered By: Queta Tilley on 03-18-2024 Glucose Test strip (U) [Mass/Vol] Normal mg/dL Normal [facility] Hematocrit [Volume Fraction] of Blood by Automated countOrdered By: Queta Tilley on 03-18-2024 Hematocrit (Bld) [Volume fraction] 41.0 % Normal 38.8-50.0 [facility] Comment on above: Performed By: #### C BC #### [address] Hemoglobin Test strip Ql (U) Ordered By: Queta Tilley on 03-18-2024 Hemoglobin Ql (U) Negative Negative [facility] Hemoglobin [Mass/volume] in BloodOrdered By: Queta Tilley on 03-18-2024 Hemoglobin (Bld) [Mass/Vol] 13.8 g/dL Normal 13.0-17.0 [facility] Comment on above: Performed By: #### C BC #### [address] INR in Platelet poor plasma by Coagulation assayOrdered By: Queta Tilley on 03-18-2024 INR Coag (PPP) [Relative time] 0.9 {INR} Normal [facility] Comment on above: INR Therapeutic Rang [...] Performed By: #### P T, PTT #### [place] [address] [place] Ketones [Presence] in Urine by Test stripOrdered By: Queta Tilley on 03-18-2024 Ketones Ql (U) Negative Normal Negative [facility] Comment on above: Order Comment: Name Collection Type:: Clean-Voided Midstream Performed By: #### U A #### [place] [address] [place] Leukocyte esterase [Presence ] in Urine by Test stripOrdered By: Queta Tilley on 03-18-2024 Leukocyte esterase Test strip Ql (U) Negative Normal Negative [facility] Comment on above: Order Comment: Name Collection Type:: Clean-Voided Midstream Performed By: #### U A #### [place] [address] [place] Leukocytes [#/volume] correc brady for nucleated erythrocytes in Blood by Automated counOrdered By: Queta Tilley on 03-18-2024 WBC corrected for nucl RBC Auto (Bld) [#/Vol] 9.4 10*3/uL 4.1-10.5 [facility] Leukocytes [#/volume] in Blo od by Automated countOrdered By: Queta Tilley on 03-18-2024 WBC (Bld) [#/Vol] 9.4 10*3/uL Normal 4.1-10.5 [facility] Comment on above: Performed By: #### C BC #### [address] Lymphocytes [#/volume] in Bl ood by Automated countOrdered By: Queta Tilley on 03-18-2024 Lymphocytes (Bld) [#/Vol] 2.4 10*3/uL Normal 1.00-4.8 [facility] Comment on above: Performed By: #### C BC #### [address] Lymphocytes/100 leukocytes i n Blood by Automated countOrdered By: Queta Tilley on 03-18-2024 Lymphocytes/100 WBC (Bld) 25.9 % Normal . [facility] Comment on above: Performed By: #### C BC #### [address] MCH [Entitic mass] by Automa brady countOrdered By: Queta Tilley on 03-18-2024 MCH (RBC) [Entitic mass] 31.2 pg Normal 27.5-35.2 [facility] Comment on above: Performed By: #### C BC #### [address] MCHC Auto (RBC) [Mass/Vol]Or dered By: Queta Tilley on 03-18-2024 MCHC (RBC) [Mass/Vol] 33.6 g/dL 32.5-35.6 [facility] MCV [Entitic volume] by Auto mated countOrdered By: Queta Tilley on 03-18-2024 MCV (RBC) [Entitic vol] 92.9 fL Normal 83.5-101 [facility] Comment on above: Performed By: #### C BC #### [address] Neutrophils [#/volume] in Bl ood by Automated countOrdered By: Queta Tilley on 03-18-2024 Neutrophils (Bld) [#/Vol] 6.1 10*3/uL Normal 1.8-7.7 [facility] Comment on above: Performed By: #### C BC #### [address] Nitrite Test strip Ql (U)Ord ered By: Queta Tilley on 03-18-2024 Nitrite Ql (U) Negative Negative [facility] No Panel InformationOrdered By: Queta Tilley on 03-18-2024 Estimated GFR (CKD-EPI) > 60.0 mL/Min [facility] Creatinine Clearance (Chem N/A [facility] Nucleated erythrocytes [Pres ence] in Blood by Automated countOrdered By: Queta Tilley on 03-18-2024 Nucleated RBC Auto Ql (Bld) 0.4 /100{WBC} 0-0.5 [facility] Partial Thromboplastin Timeo n 03-18-2024 aPTT Coag (Bld) [Time] 33.7 s Normal 25.1-36.5 [facility] Comment on above: Result Comment: A he matocrit value greater than 55% may lead to inaccurate results in coagulation testing. Patients having hematocrit values >55% require a special collection tube for coagulation studies. Please contact the laboratory at [phone] for redraw instructions. PERFORMED BY: [place] [address] PATHOLOGIST ORTHOPAEDIC NURSE HUGO AVALOS M.D. Performed By: #### P T, PTT #### [address] Platelet mean volume [Entiti c volume] in Blood by Automated countOrdered By: Queta Tilley on 03-18-2024 Platelet mean volume (Bld) [Entitic vol] 7.7 fL Normal 6.6-10.1 [facility] Comment on above: Performed By: #### C BC #### [address] Platelets [#/volume] in Bloo d by Automated countOrdered By: Queta Tilley on 03-18-2024 Platelets (Bld) [#/Vol] 220 10*3/uL Normal 150-450 [facility] Comment on above: Performed By: #### C BC #### [address] Potassium [Moles/volume] in Serum or PlasmaOrdered By: Queta Itlley on 03-18-2024 Potassium [Moles/Vol] 4.8 mmol/L Normal 3.5-5.1 [facility] Comment on above: Performed By: #### C MP #### [address] Protein Test strip (U) [Mass /Vol]Ordered By: Queta Tilley on 03-18-2024 Protein (U) [Mass/Vol] Negative Negative [facility] Protein [Mass/volume] in Ser um or PlasmaOrdered By: Queta Tilley on 03-18-2024 Protein [Mass/Vol] 6.9 g/dL Normal 6.4-8.9 [facility] Comment on above: Performed By: #### C MP #### [address] Prothrombin time (PT)Ordered By: Quetapippa Tilley on 03-18-2024 PT Coag (PPP) [Time] 11.0 s Normal 9.0-12.9 [facility] Comment on above: A hematocrit value g reater than 55% may lead to inaccurate results in coagulation testing. Patients having hematocrit values >55% require a special collection tube for coagulation studies. Please contact the laboratory at [phone] for redraw instructions. Result Comment: A he matocrit value greater than 55% may lead to inaccurate results in coagulation testing. Patients having hematocrit values >55% require a special collection tube for coagulation studies. Please contact the laboratory at [phone] for redraw instructions. Performed By: #### P T, PTT #### [address] Serum globulin measurement b y calculation (mass/volume)Ordered By: Queta Tilley on 03-18-2024 Globulin (S) [Mass/Vol] 2.3 g/dL [facility] Comment on above: Performed By: #### C MP #### [address] Serum or plasma albumin/glob ulin mass ratioOrdered By: Queta Tilley on 03-18-2024 Albumin/Globulin [Mass ratio] 2.0 {ratio} [facility] Comment on above: Performed By: #### C MP #### [address] Serum or plasma anion gap de terminationOrdered By: Queta Tilley on 03-18-2024 Anion gap [Moles/Vol] 11.8 mmol/L Normal 6.0-15.0 [facility] Comment on above: Performed By: #### C MP #### [address] Sodium [Moles/volume] in Ser um or PlasmaOrdered By: Queta Tilley on 03-18-2024 Sodium [Moles/Vol] 131 mmol/L Low 136-145 [facility] Comment on above: Performed By: #### C MP #### [address] Specific gravity Test strip (U) [Rel density]Ordered By: Queta Tilley on 03-18-2024 Specific gravity (U) [Rel density] 1.022 1.001-1.03 0 [facility] Urea nitrogen [Mass/volume] in Serum or PlasmaOrdered By: Queta Tilley on 03-18-2024 Urea nitrogen [Mass/Vol] 26 mg/dL High 7-25 [facility] Comment on above: Performed By: #### C MP #### [address] Urinalysison 03-18-2024 Bilirubin,Urine Negative Normal Negative [facility] Comment on above: Order Comment: Name Collection Type:: Clean-Voided Midstream Performed By: #### U A #### [address] Glucose Ql (U) Normal Normal Normal [facility] Comment on above: Order Comment: Name Collection Type:: Clean-Voided Midstream Performed By: #### U A #### [address] Nitrite,Urine Negative Normal Negative [facility] Comment on above: Order Comment: Name Collection Type:: Clean-Voided Midstream Performed By: #### U A #### [address] Occult Blood,Urine Negative Normal Negative [facility] Comment on above: Order Comment: Name Collection Type:: Clean-Voided Midstream Result Comment: PERF ORMED BY: [place] [address] PATHOLOGIST ORTHOPAEDIC NURSE HUGO AVALOS M.D. Performed By: #### U A #### [address] Protein,Urine Negative Normal Negative [facility] Comment on above: Order Comment: Name Collection Type:: Clean-Voided Midstream Performed By: #### U A #### [address] Specificy [place],Urine 1.022 Normal 1.001-1.03 0 [facility] Comment on above: Order Comment: Name Collection Type:: Clean-Voided Midstream Performed By: #### U A #### [address] Urobilinogen,Urine Normal Normal Normal [facility] Comment on above: Order Comment: Name Collection Type:: Clean-Voided Midstream Performed By: #### U A #### [address] Urine Cultureon 03-18-2024 Bacteria identified Cx Nom (U) No Growth 2 Days PERFORMED BY: [place] [address] PATHOLOGIST ORTHOPAEDIC NURSE HUGO AVALOS M.D. Normal [facility] Comment on above: Performed By: #### C UU #### [facility] [address] [place] [address] Urine appearanceOrdered By: Queta Tilley on 03-18-2024 Appearance (U) Clear Normal Clear [facility] Comment on above: Order Comment: Name Collection Type:: Clean-Voided Midstream Performed By: #### U A #### [facility] [address] [place] [address] Urobilinogen Test strip (U) [Mass/Vol]Ordered By: Queta Tilley on 03-18-2024 Urobilinogen (U) [Mass/Vol] Normal mg/dL Normal [facility] XR bonelength lower extremit yon 03-18-2024 XR bonelength lower extremity [facility] [place] [address] [place] [address] XRay Report Signed Patient: Amina Lim MR#: [id number] 4 : 1945 Acct:[id number] Age/Sex: 78 / M ADM Date: 03/18/24 Loc: Room: Type: [facility] Attending Dr: Queta Tilley PA-C Copies to: [...] Kelly Banegas M.D.03/18/2024 4:55 PM Dictation Location: [place] [address] Transcribed By: FRANCISCO JAVIER 03/18/241654 Dictated By: Kelly Banegas II, MD 03/18/241653 Signed By: 03/18/241654 Normal [facility] pH of Urine by Test stripOrd ered By: Queta Tilley on 03-18-2024 pH (U) 5.5 [pH] Normal 5.0-9.0 [facility] Comment on above: Order Comment: Name Collection Type:: Clean-Voided Midstream Performed By: #### U A #### [facility] [address] [place] [address] Office Visiton 11-14-2023 Follow-up visit [id number] Amina Lim Adriano 1945 [facility] Provider Department Center 11/14/2023 TAYLOR GARCIAS Family History Problem Relation Age of Onset Other Father Lupus Father Family Status - Relation Status Age at Father Level of Service:74237 [place] OFFICE/OUTPATIENT ESTABLISHED MOD MDM 30 MIN Normal [facility] Office Visiton 10-02-2023 Follow-up visit [id number] RaphaelAmina Adriano 1945 M Date Provider Department Center 10/02/2023 TAYLOR GARCIAS Family History Problem Relation Age of Onset Other Father Lupus Father Family Status - Relation Status Age at Father Level of Service:69284 [place] OFFICE/OUTPATIENT ESTABLISHED MOD MDM 30 MIN Normal [facility] Office Visiton 08-08-2023 Follow-up visit [id number] Amina Lim Adriano 1945 [facility] Provider Department Center 08/08/2023 PARI COOLEY Family History Problem Relation Age of Onset Other Father Lupus Father Family Status - Relation Status Age at Father Level of Service:90343 [place] OFFICE/OUTPATIENT NEW MODERATE MDM 45-59 MINUTES Normal [facility] 36on 07-17-2023 36 Basia, can you please get this patient scheduled for a telemed with Dr. Escalante ([facility]) next available?? Thank you! Normal [facility] 36on 07-13-2023 36 Patient called to kane [...] stress test is now uploaded into his associate media director for your review. Please advise. Thanks. Normal [facility] 25(OH)D3 [facility] 2022 25-hydroxyvitamin D3 [Mass/Vol] 37.6 ng/mL Normal 31.0-80.[address] [facility] Comment on above: Order Comment: Gianna ball Type: BLOOD SPECIMEN Ordering Facility: [facility] Address: [address] [place] [address] Result Comment: Clas sification of 25 [place] Vitamin D status: Deficiency/Insufficiency: < or = 30 ng/ml. Sufficiency/Optimal Levels: 31-80 ng/mL Toxicity: > 100 ng/mL. Test performed by chemiluminescent immunoassay. Performed By: #### 1 989-3 #### [facility] CLIA [id number] [address] [place] [address] [place] CBC panel Auto (Bld)on 06-14 Erythrocyte distribution width (RBC) [Ratio] 13.8 % Normal 11.5-15.[address] [facility] Comment on above: Order Comment: Gianna ball Type: BLOOD SPECIMEN Ordering Facility: [facility] Address: [address] [place] [address] Performed By: #### 5 8410-2 #### [facility] CLIA [id number] [address] [place] [address] Hematocrit (Bld) [Volume fraction] 40.1 % Normal 39.0-51.[address] [facility] Comment on above: Order Comment: Gianna ball Type: BLOOD SPECIMEN Ordering Facility: [facility] Address: [address] [place] [address] Performed By: #### 5 8410-2 #### [facility] CLIA [id number] [address] [place] [address] Hemoglobin (Bld) [Mass/Vol] 13.6 g/dL Normal 13.0-17.[address] [facility] Comment on above: Order Comment: Speci men Type: BLOOD SPECIMEN Ordering Facility: [facility] Address: [address] [place] [address] Performed By: #### 5 8410-2 #### [facility] CLIA [id number] [address] [place] [address]393 MCH (RBC) [Entitic mass] 30.8 pg Normal 26.0-34.[address] [facility] Comment on above: Order Comment: Speci men Type: BLOOD SPECIMEN Ordering Facility: [facility] Address: [address] [place] [address] Performed By: #### 5 8410-2 #### [facility] CLIA [id number] [address] [place] [address] MCHC (RBC) [Mass/Vol] 33.9 g/dL Normal 30.5-36.0 [facility] Comment on above: Order Comment: Speci men Type: BLOOD SPECIMEN Ordering Facility: [facility] Address: [address] [place] [address] Performed By: #### 5 8410-2 #### [facility] CLIA [id number] [address] [place] [address]796 MCV (RBC) [Entitic vol] 90.7 fL Normal 80.0-100.[address] [facility] Comment on above: Order Comment: Speci men Type: BLOOD SPECIMEN Ordering Facility: [facility] Address: [address] [place] [address] Performed By: #### 5 8410-2 #### [facility] CLIA [id number] [address] [place] [address] Nucleated RBC (Bld) [#/Vol] 10*3/uL Normal <0.[address] [facility] Comment on above: Order Comment: Speci men Type: BLOOD SPECIMEN Ordering Facility: [facility] Address: [address] [place] [address] Performed By: #### 5 8410-2 #### [facility] CLIA [id number] [address] [place] [address]71 Platelet mean volume (Bld) [Entitic vol] 9.4 fL Normal 9.0-12.[address] [facility] Comment on above: Order Comment: Speci men Type: BLOOD SPECIMEN Ordering Facility: [facility] Address: [address] [place] [address] Performed By: #### 5 8410-2 #### [facility] CLIA [id number] [address] [place] [address] Platelets (Bld) [#/Vol] 202 10*3/uL Normal 150-[address] [facility] Comment on above: Order Comment: Speci men Type: BLOOD SPECIMEN Ordering Facility: [facility] Address: [address] [place] [address] Performed By: #### 5 8410-2 #### [facility] CLIA [id number] [address] [place] [address] RBC (Bld) [#/Vol] 4.42 10*6/uL Normal 4.20-6.00 [facility] Comment on above: Order Comment: Speci men Type: BLOOD SPECIMEN Ordering Facility: [facility] Address: [address] [place] [address] Performed By: #### 5 8410-2 #### [facility] CLIA [id number] [address] [place] [address]367 WBC (Bld) [#/Vol] 9.80 10*3/uL Normal 3.70-11.00 [facility] Comment on above: Order Comment: Speci men Type: BLOOD SPECIMEN Ordering Facility: [facility] Address: [address] [place] [address] Performed By: #### 5 8410-2 #### [facility] CLIA [id number] [address] [place] [address] IMMUNOFIXATION SCREEN, SERUM on 06-14-2023 INTERPRETATION (MPA) Atypical restricted bands are present in the IgG and kappa regions. Consistent with IgG kappa monoclonal gammopathy. Normal [facility] Comment on above: Order Comment: Speci men Type: BLOOD SPECIMEN Ordering Facility: [facility] Address: [address] [place] [address] Performed By: #### I FESC #### [facility] CLIA [id number] [address] [place] MPA RESULT M protein is present. Abnormal No M protein is identified . [facility] Comment on above: Order Comment: Speci men Type: BLOOD SPECIMEN Ordering Facility: [facility] Address: [address] [place] [address] Performed By: #### I FESC #### [facility] CLIA [id number] [address] [place] [address] OF [place] STAFF REVIEW (MPA) Reviewed by Dr. Gwen Valencia MD Normal [facility] Comment on above: Order Comment: Speci men Type: BLOOD SPECIMEN Ordering Facility: [facility] Address: [address] [place] [address] Performed By: #### I FESC #### [facility] CLIA [id number] [address] [place] [address] [place] IMMUNOGLOBULINS GAMon 2022 IgA [Mass/Vol] 20 mg/dL Low 70-[address] [facility] Comment on above: Order Comment: Speci men Type: BLOOD SPECIMEN Ordering Facility: [facility] Address: [address] [place] [address] Performed By: #### S ERIMM #### [facility] CLIA [id number] [address] [place] [address] [place] IgG [Mass/Vol] 1106 mg/dL Normal 700-[address] [facility] Comment on above: Order Comment: Speci men Type: BLOOD SPECIMEN Ordering Facility: [facility] Address: [address] [place] [address] Performed By: #### S ERIMM #### [facility] CLIA [id number] [address] [place] [address] [place] IgM [Mass/Vol] 14 mg/dL Low 40-[address] [facility] Comment on above: Order Comment: Speci men Type: BLOOD SPECIMEN Ordering Facility: [facility] Address: [address] [place] [address] Performed By: #### S ERIMM #### [facility] [place] [id number] [address] [place] [address] [place] KAPPA/RHODES,FREE,SERon 2022 Immunoglobulin light chains.kappa.free (S) [Mass/Vol] 20.2 mg/L High 3.3-19.[address] [facility] Comment on above: Order Comment: Speci men Type: BLOOD SPECIMEN Ordering Facility: [facility] Address: [address] [place] [address] Result Comment: Rare ly, increased serum free light chains levels may not be detected or accurately quantified due to prozone phenomenon or in high viscosity samples using this immunoturbidimetric assay. Correlation with other laboratory results and clinical findings is recommended. The Bush Free Light Chain was performed using the Binding Site Optilite immunoturbidimetric method. Result obtained with different assay methods or kits cannot be used interchangeably. Performed By: #### K LFRS #### [facility] [place] [id number] [address] [place] [address] [place] Immunoglobulin light chains.kappa/Immunoglo bulin light chains.lambda (S) [Mass ratio] 2.13 High 0.26-1.[address] [facility] Comment on above: Order Comment: Speci men Type: BLOOD SPECIMEN Ordering Facility: [facility] Address: [address] [place] [address] Performed By: #### K LFRS #### [facility] CLIA [id number] [address] [place] [address] [place] Immunoglobulin light chains.lambda.free [Mass/Vol] 9.5 mg/L Normal 5.7-26.[address] [facility] Comment on above: Order Comment: Speci men Type: BLOOD SPECIMEN Ordering Facility: [facility] Address: [address] [place] [address] Result Comment: Rare ly, increased serum free [...] interchangeably. Performed By: #### K LFRS #### [facility] CLIA [id number] [address] [place] [address] [place] PTH-Intact SerPl-ncon 08- Parathyrin.intact [Mass/Vol] 38 pg/mL Normal 15-[address] [facility] Comment on above: Order Comment: Speci men Type: BLOOD SPECIMEN Ordering Facility: [facility] Address: [address] [place] [address] Performed By: #### 2 731-8 #### [facility] CLIA [id number] [address] [place] [address] [place] Prot/Creat Uron 06-14-2023 Protein/Creatinine (U) [Mass ratio] mg/g Normal <0.[address] [facility] Comment on above: Order Comment: Speci men Type: URINE SPECIMEN Ordering Facility: [facility] Address: [address] [place] [address] Result Comment: Adul t Proteinuria Categories: <0.15 mg/mg is considered normal to mildly increased 0.15 - 0.50 mg/mg is considered moderately increased >0.50 mg/mg is considered severely increased KDIGO. (2013). KDIGO 2012 Clinical Practice Guideline for the Evaluation and Management of Chronic Kidney Disease. Official Journal of the International Society of Nephrology, 3(1), 1-150. Performed By: #### 2 4356-8 #### [facility] CLIA [id number] [address] [place] [address] [place] Protein/Creatinine (U) [Mass ratio]on 06-14-2023 Creatinine (U) [Mass/Vol] 45.4 mg/dL Normal 20.0-300.[address] [facility] Comment on above: Order Comment: Speci men Type: URINE SPECIMEN Ordering Facility: [facility] Address: [address] [place] [address] Performed By: #### 2 4356-8 #### [facility] CLIA [id number] [address] [place] [address] [place] Protein (U) [Mass/Vol] mg/dL Normal 0-20 [facility] Comment on above: Order Comment: Speci men Type: URINE SPECIMEN Ordering Facility: [facility] Address: [address] [place] [address] Performed By: #### 2 4356-8 #### [facility] CLIA [id number] [facility] [place] [address] [place] Renal function 2000 panelon 06-14-2023 Albumin [Mass/Vol] 4.6 g/dL Normal 3.9-4.9 [facility] Comment on above: Order Comment: Speci men Type: URINE SPECIMEN Ordering Facility: [facility] Address: [address] Performed By: #### 2 4356-8 #### [facility] CLIA [id number] [facility] [place] [address] [place] Anion gap [Moles/Vol] 9 mmol/L Normal 9-18 [facility] Comment on above: Order Comment: Speci men Type: URINE SPECIMEN Ordering Facility: [facility] Address: [address] Performed By: #### 2 4356-8 #### [facility] CLIA [id number] [address] [place] [address] [place] Calcium [Mass/Vol] 9.5 mg/dL Normal 8.5-10.2 [facility] Comment on above: Order Comment: Speci men Type: URINE SPECIMEN Ordering Facility: [facility] Address: [address] Performed By: #### 2 4356-8 #### [facility] CLIA [id number] [address] [place] [address] [place] Chloride [Moles/Vol] 97 mmol/L Normal 97-105 [facility] Comment on above: Order Comment: Speci men Type: URINE SPECIMEN Ordering Facility: [facility] Address: [address] Performed By: #### 2 4356-8 #### [facility] CLIA [id number] [address] [place] [address] [place] CO2 [Moles/Vol] 28 mmol/L Normal 22-[address] [facility] Comment on above: Order Comment: Speci men Type: URINE SPECIMEN Ordering Facility: [facility] Address: [address] [place], [place] [address] Performed By: #### 2 4356-8 #### [facility] CLIA [id number] [address] [place] [address] [place] Creatinine [Mass/Vol] 1.47 mg/dL High 0.73-1.22 [facility] Comment on above: Order Comment: Speci men Type: URINE SPECIMEN Ordering Facility: [facility] Address: [address] Performed By: #### 2 4356-8 #### [facility] CLIA [id number] [address] [id number] [address] [place] Creatinine and Glomerular filtration rate.predicted panel (S/P/Bld) 49 mL/min/1.73m??? Low >=[address] [facility] Comment on above: Order Comment: Gianna ball Type: URINE SPECIMEN Ordering Facility: [facility] Address: [address] [place] [address] Result Comment: Shira mated Glomerular Filtration Rate [...] GFR. Performed By: #### 2 4356-8 #### [facility] CLIA [id number] [address] [place] [address] [place] Glucose [Mass/Vol] 112 mg/dL High 74-99 [facility] Comment on above: Order Comment: Gianna ball Type: URINE SPECIMEN Ordering Facility: [facility] Address: [address] [place] [address] Result Comment: The [place] Diabetes Association (ADA) provides guidance for cutoff [...] Standards of Medical Care in Diabetes 2016, [place] [employer]. Diabetes Care. 2016.39(Suppl 1). Performed By: #### 2 4356-8 #### [facility] CLIA [id number] [facility] [place] [address] [place] Phosphate [Mass/Vol] 3.3 mg/dL Normal 2.7-4.8 [facility] Comment on above: Order Comment: Speci men Type: URINE SPECIMEN Ordering Facility: [facility] Address: [address] Performed By: #### 2 4356-8 #### [facility] CLIA [id number] [address] [place] [address] [place] Potassium [Moles/Vol] 4.2 mmol/L Normal 3.7-5.1 [facility] Comment on above: Order Comment: Speci men Type: URINE SPECIMEN Ordering Facility: [facility] Address: [address] Performed By: #### 2 4356-8 #### [facility] CLIA [id number] [address] [place] [address] [place] Sodium [Moles/Vol] 134 mmol/L Low 136-144 [facility] Comment on above: Order Comment: Speci men Type: URINE SPECIMEN Ordering Facility: [facility] Address: [address] Performed By: #### 2 4356-8 #### [facility] CLIA [id number] [address] [place] [address] [place] Urea nitrogen [Mass/Vol] 25 mg/dL High 9-[address] [facility] Comment on above: Order Comment: Speci men Type: URINE SPECIMEN Ordering Facility: [facility] Address: [address] [place] [address] Performed By: #### 2 4356-8 #### [facility] CLIA [id number] [address] [place] [address] [place] Urinalysis complete panel (U )on 06-14-2023 Bilirubin Ql (U) Negative Normal Negative [facility] Comment on above: Order Comment: Speci men Type: URINE SPECIMEN Ordering Facility: [facility] Address: [address] Performed By: #### 2 4356-8 #### [facility] CLIA [id number] [address] [place] [address] [place] Clarity (Unsp spec) Clear Normal Clear [facility] Comment on above: Order Comment: Speci men Type: URINE SPECIMEN Ordering Facility: [facility] Address: [address] [place] [address] Performed By: #### 2 4356-8 #### [facility] CLIA [id number] [address] [place] [address] [place] Color (U) Light Yellow Normal Yellow [facility] Comment on above: Order Comment: Speci men Type: URINE SPECIMEN Ordering Facility: [facility] Address: [address] [place] [address] Performed By: #### 2 4356-8 #### [facility] CLIA [id number] [address] [place] [address] [place] Glucose Test strip (U) [Mass/Vol] Negative Normal Trace, Negative [facility] Comment on above: Order Comment: Speci men Type: URINE SPECIMEN Ordering Facility: [facility] Address: [address] [place], [place] [address] Performed By: #### 2 4356-8 #### [facility] CLIA [id number] [address] [place] [address] [place] Hemoglobin Ql (U) Negative Normal Negative, Trace [facility] Comment on above: Order Comment: Speci men Type: URINE SPECIMEN Ordering Facility: [facility] Address: [address] [place] [address] Performed By: #### 2 4356-8 #### [facility] CLIA [id number] [address] [place] [address] [place] Ketones Ql (U) Negative Normal Trace, Negative [facility] Comment on above: Order Comment: Speci men Type: URINE SPECIMEN Ordering Facility: [facility] Address: [address] [place] [address] Performed By: #### 2 4356-8 #### [facility] CLIA [id number] [address] [place] [address] [place] Leukocyte esterase Test strip Ql (U) Negative Normal Negative, 25 Bubba/uL [facility] Comment on above: Order Comment: Speci men Type: URINE SPECIMEN Ordering Facility: [facility] Address: [address] [place] [address] Performed By: #### 2 4356-8 #### [facility] CLIA [id number] [facility] [place] [address] [place] Nitrite Ql (U) Negative Normal Negative [facility] Comment on above: Order Comment: Speci men Type: URINE SPECIMEN Ordering Facility: [facility] Address: [address] [place] [address] Performed By: #### 2 4356-8 #### [facility] CLIA [id number] [address] [place] [address] [place] pH (U) 6.5 [pH] Normal 5.0-8.[address] [facility] Comment on above: Order Comment: Speci men Type: URINE SPECIMEN Ordering Facility: [facility] Address: [address] [place] [address] Performed By: #### 2 4356-8 #### [facility] CLIA [id number] [address] [place] [address] [place] Protein (U) [Mass/Vol] Negative Normal Trace , Negative [facility] Comment on above: Order Comment: Speci men Type: URINE SPECIMEN Ordering Facility: [facility] Address: [address] [place], [place] [address] Performed By: #### 2 4356-8 #### [facility] CLIA [id number] [address] [place] [address] [place] RBC LM.HPF (Urine sed) [#/Area] 0-3 /HPF Normal 0-3 /HPF [facility] Comment on above: Order Comment: Speci men Type: URINE SPECIMEN Ordering Facility: [facility] Address: [address] [place] [address] Performed By: #### 2 4356-8 #### [facility] CLIA [id number] [facility] [place] [address] [place] Specific gravity (U) [Rel density] 1.012 Normal 1.005-1.[address] [facility] Comment on above: Order Comment: Speci men Type: URINE SPECIMEN Ordering Facility: [facility] Address: [address] [place] [address] Performed By: #### 2 4356-8 #### [facility] CLIA [id number] [address] [place] [address] [place] Urobilinogen Ql (U) Negative Normal Negative [facility] Comment on above: Order Comment: Speci men Type: URINE SPECIMEN Ordering Facility: [facility] Address: [address] [place] [address] Performed By: #### 2 4356-8 #### [facility] CLIA [id number] [address] [place] [address] [place] WBC LM.HPF (Urine sed) [#/Area] 0-5 /HPF Normal 0-5 /HPF [facility] Comment on above: Order Comment: Speci men Type: URINE SPECIMEN Ordering Facility: [facility] Address: [address] [place] [address] Performed By: #### 2 4356-8 #### [facility] CLIA [id number] [address] [place] [address] [place] Office Visiton 06-06-2023 Follow-up visit [id number] Amina Lim 1945 M Date Provider Department Center 06/06/2023 [facility] Family History Problem Relation Age of Onset Other Father Lupus Father Family Status - Relation Status Age at Father Level of Service:66853 [place] OFFICE/OUTPATIENT NEW MODERATE MDM 45-59 MINUTES Normal [facility] CNOVon 05-16-2023 CNOV Office Visit (KIDFRW ) -- AMINA LIM ([id number]) 1945 M Date Time Provider Department 05/16/23 9:20 AM LYNDSAY SALGADO During your visit today, we recorded the following information about you: Pulse Blood pressure Weight Height 43/minute 171/77 92.5 kg 1.791 m Lyndsay Salgado DO 05/16/2023 10:07 AM Signed [facility] SERVICE DATE: [...] that he was previously following with a customs inspector that went over his labs every visit. States that his renal function was worsening and he was taken off a water pill that improved his renal function. His customs inspector stopped seeing patients in the office and [...] Take 1 tablet by mouth once daily. Wzovl-8-XSW-EPA-Fish Oil (FISH OIL) 1,000 mg (120 mg-180 mg) cap Take 1 g by mouth once daily. Lecithin 1,200 mg cap Take 1 capsule by mouth once daily. lovastatin (MEVACOR) 20 mg tablet Take 20 mg by mouth daily at bedtime. multivitamin (MULTIPLE VITAMINS) tablet Take 1 tablet by mouth once daily. [place] 160 mg capsule Take 160 mg by [...] No c (more content not included)... Normal [facility] XR KNEE DUSTIN 3 Von 03-15-2023 XR KNEE DUSTIN 3 V EXAM: XR KNEE DUSTIN 3 V HISTORY: Osteoarthritis COMPARISON: None. TECHNIQUE: 3 views FINDINGS: There is no acute fracture or dislocation. There are mild degenerative changes. The soft tissues are unremarkable. IMPRESSION: Mild degenerative changes as above. Electronically authenticated by: KELLY LARSON Date: 2023-03-15 12:38 Normal [facility]15 SARS-CoV-2 (COVID-19) RNA DHARA+probe Ql (Unsp spec) Not detected Normal NOT DETECTED [facility] Comment on above: Result Comment: [...] for this test is supported by the [place] of Health and Human Service's declaration that [...] be used). Performed By: #### C VDTB ####[facility] [id number] [place] [address]Dr. Xena Pickard INFLUENZA A AND B AGon 10-03 INFLUANEGH SEE BELOW Normal [facility] Comment on above: Result Comment: Nega tive for Flu A protein angiten. Infection due to Flu A cannot be ruled out. Flu A angiten in the sample may be below the detection limit of the test. Performed By: #### I NFLUAB #### [facility] [address] [place] [address] Dr. Xena Pickard INFL[facility]NFORMERLY [facility] SEE BELOW Normal [facility] Comment on above: Result Comment: Nega tive for Flu B protein antigen. Infection due to Flu B cannot be ruled out. Flu B antigen in the sample may be below the detection limit of the test. Performed By: #### I NFLUAB #### [facility] [address] [place] [address] Dr. Xena Pickard INFLUENZA A AG Negative Normal NEGATIVE SEE COMMENT [facility] Comment on above: Performed By: #### I NFLUAB #### [facility] [address] [place] [address] Dr. Xena Pickard INFLUENZA B AG Negative Normal NEGATIVE SEE COMMENT [facility] Comment on above: Performed By: #### I NFLUAB #### [facility] [address] [place] [address] Dr. Xena Pickard INTERNAL CONTROLS Within Normal Limits Normal Wi thin Normal Limits [facility] Comment on above: Performed By: #### I NFLUAB #### [facility] [address] [place] [address] Dr. Xena Pickard INSULINon 09-02-2022 Insulin 14.1 uIU/mL Normal 2.6-24.9 [facility] Comment on above: Performed By: #### I NSULIN ####[facility] [address] [place] [address]Dr. Xena Pickard PTH INTACTon 09-02-2022 PTH, Intact 14 pg/mL Critically low 15-65 [facility] Comment on above: Performed By: #### P THINT #### [facility] [address] [place] [address] Dr. Xena Pickard CBC AUTO DIFFon 09-01-2022 BASO # 0.0 103/ul Normal 0.0-0.1 [facility] Comment on above: Performed By: #### C BC #### [facility] [address] [place] [address] Dr. Xena Pickard Basophils/100 WBC (Bld) 0.6 % Normal 0.2-2.0 [facility] Comment on above: Performed By: #### C BC #### [facility] [address] [place] [address] Dr. Xena Pickard EO # 0.2 103/ul Normal 0.0-0.7 [facility] Comment on above: Performed By: #### C BC #### [facility] [address] [place] [address] Dr. Xena Pickard Eosinophils/100 WBC (Bld) 2.5 % Normal 0.9-7.0 [facility] Comment on above: Performed By: #### C BC #### [facility] [address] [place] [address] Dr. Xena Pickard Erythrocyte distribution width (RBC) [Ratio] 13.5 % Normal 11.0-15.0 [facility] Comment on above: Performed By: #### C BC #### [facility] [address] [place] [address] Dr. Xena Pickard Hematocrit (Bld) [Volume fraction] 38.3 % Critically low 42.0-54.0 [facility] Comment on above: Performed By: #### C BC #### [facility] [address] [place] [address] Dr. Xena Pickard Hemoglobin (Bld) [Mass/Vol] 13.0 g/dL Critically low 14.0-18.0 [facility] Comment on above: Performed By: #### C BC #### [facility] [address] [place] [address] Dr. Xena Pickard IG # 0.03 10e3/ul Normal 0.00-0.03 [facility] Comment on above: Performed By: #### C BC #### [facility] [address] [place] [address] Dr. Xena Pickard IG % 0.4 % Normal 0.0-0.5 [facility] Comment on above: Performed By: #### C BC #### [facility] [address] [place] [address] Dr. Xena Pickard LYMPH # 2.2 103/ul Normal 1.2-3.8 [facility] Comment on above: Performed By: #### C BC #### [facility] [address] [place] [address] Dr. Xena Pickard Lymphocytes/100 WBC (Bld) 31.5 % Normal 20.5-60.0 [facility] Comment on above: Performed By: #### C BC #### [facility] [address] [place] [address] Dr. Xena Pickard MANUAL DIFF REQ NO Normal [facility] Comment on above: Performed By: #### C BC #### [facility] [address] [place] [address] Dr. Xena Pickard MCH (RBC) [Entitic mass] 30.5 pg Normal 25.9-34.0 [facility] Comment on above: Performed By: #### C BC #### [facility] [address] [place] [address] Dr. Xena Pickard MCHC (RBC) [Mass/Vol] 33.9 g/dL Normal 29.9-35.2 [facility] Comment on above: Performed By: #### C BC #### [facility] [address] [place] [address] Dr. Xena Pickard MCV (RBC) [Entitic vol] 89.9 fL Normal 80.0-94.0 [facility] Comment on above: Performed By: #### C BC #### [facility] [address] [place] [address] Dr. Xena Pickard MONO # 0.6 103/ul Normal 0.3-0.8 [facility] Comment on above: Performed By: #### C BC #### [facility] [address] [place] [address] Dr. Xena Pickard Monocytes/100 WBC (Bld) 8.2 % Normal 1.7-12.0 [facility] Comment on above: Performed By: #### C BC #### [facility] [address] [place] [address] Dr. Xena Pickard NEUT # 4.0 103/ul Normal 1.4-6.5 [facility] Comment on above: Performed By: #### C BC #### [facility] [address] [place] [address] Dr. Xena Pickard Neutrophils/100 WBC (Bld) 56.8 % Normal 43.0-75.0 [facility] Comment on above: Performed By: #### C BC #### [facility] [address] [place] [address] Dr. Xena Pickard Platelet mean volume (Bld) [Entitic vol] 10.2 fL Normal 9.5-13.5 [facility] Comment on above: Performed By: #### C BC #### [facility] [address] [place] [address] Dr. Xena Pickard PLT 185 103/ul Normal 150-450 [facility] Comment on above: Performed By: #### C BC #### [facility] [address] [place] [address] Dr. Xena Pickard RBC 4.26 106/ul Critically low 4.70-6.10 [facility] Comment on above: Performed By: #### C BC #### [facility] [address] [place] [address] Dr. Xena Pickard WBC 7.1 103/ul Normal 4.0-11.0 [facility] Comment on above: Performed By: #### C BC #### [facility] [address] [place] [address] Dr. Xena Pickard GLYCOHEMOGLOBIN A1Con 2021 ADA RECOMMENDATION SEE BELOW Normal [facility] Comment on above: Result Comment: ADA RECOMMENDED LIMIT 4.0 - 6.0 ADA THERAPEUTIC TARGET < 7.0 ACTION SUGGESTED > 7.0 Performed By: #### A 1C #### [facility] [address] [place] [address] Dr. Xena Pcikard Glucose [Mass/Vol] 120 mg/dL Normal [facility] Comment on above: Performed By: #### A 1C #### [facility] [address] [place] [address] Dr. Xena Pickard HbA1c (Bld) [Mass fraction] 5.8 % Normal 4.5-6.2 [facility] Comment on above: Performed By: #### A 1C #### [facility] [address] [place] [address] Dr. Xena Pickard LIPID PROFILEon 09-01-2022 CHOL-HDL RATIO NORM SEE BELOW Normal [facility] Comment on above: Result Comment: 3.3 - 4.4 LOW RISK 4.4 - 7.1 AVERAGE RISK 7.1 - 11.0 MODERATE RISK >11.0 HIGH RISK Performed By: #### L IPID, URIC, CMP #### [facility] [address] [place] [address] Dr. Xena Pickard Cholesterol [Mass/Vol] 166 mg/dL Normal <=200 [facility] Comment on above: Performed By: #### L IPID, URIC, CMP #### [facility] [address] [place] [address] Dr. Xena Pickard Cholesterol in HDL [Mass/Vol] 52 mg/dL Normal 40-60 [facility] Comment on above: Performed By: #### L IPID, URIC, CMP #### [facility] [address] [place] [address] Dr. Xena Pickard Cholesterol in LDL [Mass/Vol] 100.8 mg/dL Normal [facility] Comment on above: Performed By: #### L IPID, URIC, CMP #### [facility] [address] [place] [address] [address] Xena Pickard Cholesterol.total/Chol esterol in HDL [Mass ratio] 3.2 {ratio} Normal [facility] Comment on above: Performed By: #### L IPID, URIC, CMP #### [facility] [address] [place] [address] [address] Xena Pickard HDL NORMAL > or = 60 mg/dl - LO W CARDIOVASCULAR RISK <40 mg/dl - HIGH CARDIOVASCULAR RISK Normal [facility] Comment on above: Performed By: #### L IPID, URIC, CMP #### [facility] [address] [place] [address] [address] Xena Pickard LDL CALC NORMAL SEE BELOW Normal [facility] Comment on above: Result Comment: <100 mg/dl OPTIMAL 100 - 129 mg/dl NEAR OR ABOVE OPTIMAL 130 - 159 mg/dl BORDERLINE HIGH 160 - 189 mg/dl HIGH >190 mg/dl VERY HIGH Performed By: #### L IPID, URIC, CMP #### [facility] [address] [place] [address] [address] Xena Pickard Triglyceride [Mass/Vol] 66 mg/dL Normal <=150 [facility] Comment on above: Performed By: #### L IPID, URIC, CMP #### [facility] [address] [place] [address] [address] Xena Pickard VLDL CALC 13.2 mg/dL Normal [facility] Comment on above: Performed By: #### L IPID, URIC, CMP #### [facility] [address] [address] [address] Xena Pickard PHOSPHORUSon 09-01-2022 Phosphate [Mass/Vol] 3.3 mg/dL Normal 2.6-4.7 [facility] Comment on above: Performed By: #### P HOS ####[facility] [id number] [place] [address]Dr. Xena Pickard PROF 14(COMP METB)on 022 Albumin [Mass/Vol] 3.9 g/dL Normal 3.4-5.0 [facility] Comment on above: Performed By: #### L IPID, URIC, CMP #### [facility] [address] [address] [address] Xena Pickard Albumin/Globulin [Mass ratio] 1.2 {ratio} Normal [facility] Comment on above: Performed By: #### L IPID, URIC, CMP #### [facility] [address] [place] [address] [address] Xena Pickard ALP [Catalytic activity/Vol] 44 U/L Critically low 46-116 [facility] Comment on above: Performed By: #### L IPID, URIC, CMP #### [facility] [address] [place] [address] [address] Xena Pcikard ALT [Catalytic activity/Vol] 38 U/L Normal 16-63 [facility] Comment on above: Performed By: #### L IPID, URIC, CMP #### [facility] [address] [place] [address] [address] Xena Pickard Anion gap [Moles/Vol] 12.3 mmol/L Normal [facility] Comment on above: Performed By: #### L IPID, URIC, CMP #### [facility] [address] [place] [address] [address] Xena Pickard AST [Catalytic activity/Vol] 16 U/L Normal 15-37 [facility] Comment on above: Performed By: #### L IPID, URIC, CMP #### [facility] [address] [place] [address] [address] Xena Pickard Bilirubin [Mass/Vol] 0.5 mg/dL Normal 0.2-1.0 [facility] Comment on above: Performed By: #### L IPID, URIC, CMP #### [facility] [address] [place] [address] [address] Xena Pickard Calcium [Mass/Vol] 8.7 mg/dL Normal 8.5-10.1 [facility] Comment on above: Performed By: #### L IPID, URIC, CMP #### [facility] [address] [address] [address] Xena Pickard Chloride [Moles/Vol] 101 mmol/L Normal 98-107 [facility] Comment on above: Performed By: #### L IPID, URIC, CMP #### [facility] [address] [place] [address] Dr. Xena Pickard CO2 [Moles/Vol] 26.8 mmol/L Normal 21.0-32.0 [facility] Comment on above: Performed By: #### L IPID, URIC, CMP #### [facility] [address] [place] [address] Dr. Xena Pickard Creatinine [Mass/Vol] 1.41 mg/dL Critically high 0.70-1.30 [facility] Comment on above: Performed By: #### L IPID, URIC, CMP #### [facility] [address] [place] [address] Dr. Xena Pickard EGFR-AF GUINEAN 59 mL/min/1.73m2 Critically low >=60 [facility] Comment on above: Performed By: #### L IPID, URIC, CMP #### [facility] [address] [place] [address] Dr. Xena Pickard EGFR-NON AF GUINEAN 49 mL/min/1.73m2 Critically low >=60 [facility] Comment on above: Performed By: #### L IPID, URIC, CMP #### [facility] [address] [place] [address] Dr. Xena Pickard Globulin (S) [Mass/Vol] 3.3 g/dL Normal [facility] Comment on above: Performed By: #### L IPID, URIC, CMP #### [facility] [address] [place] [address] Dr. Xena Pickard Glucose [Mass/Vol] 106 mg/dL Normal 74-106 [facility] Comment on above: Performed By: #### L IPID, URIC, CMP #### [facility] [address] [place] [address] Dr. Xena Pickard Potassium [Moles/Vol] 4.1 mmol/L Normal 3.5-5.1 [facility] Comment on above: Performed By: #### L IPID, URIC, CMP #### [facility] [address] [place] [address] Dr. Xena Pickard Protein [Mass/Vol] 7.2 g/dL Normal 6.4-8.2 [facility] Comment on above: Performed By: #### L IPID, URIC, CMP #### [facility] [address] [place] [address] Dr. Xena Pickard Sodium [Moles/Vol] 136 mmol/L Normal 136-145 [facility] Comment on above: Performed By: #### L IPID, URIC, CMP #### [facility] [address] [place] [address] Dr. Xena Pickard Urea nitrogen [Mass/Vol] 33.0 mg/dL Critically high 7.0-18.0 [facility] Comment on above: Performed By: #### L IPID, URIC, CMP #### [facility] [address] [place] [address] Dr. Xena Pickard Urea nitrogen/Creatinine [Mass ratio] 23.4 mg/mg Normal [facility] Comment on above: Performed By: #### L IPID, URIC, CMP #### [facility] [address] [place] [address] Dr. Xena Pickard URIC ACID SERUMon 09-01-2022 Urate [Mass/Vol] 5.1 mg/dL Normal 3.5-7.2 [facility] Comment on above: Performed By: #### L IPID, URIC, CMP #### [facility] [address] [place] [address] Dr. Xena Pickard URINE T PROTEIN CREAT RATIOo n 09-01-2022 UR TOTAL PROTEIN <6.0 Normal <=12.0 [facility] Comment on above: Performed By: #### U RTPCR #### [facility] [address] [place] [address] Dr. Xena Pickard URINE CREAT 36.48 mg/dL Normal 20.00-300. 00 [facility] Comment on above: Performed By: #### U RTPCR #### [facility] [address] [place] [address] Dr. Xena Pickard CNNURSEon 01-07-2021 CNNURSE Nurse Visit (COVAMD) -- AMINA LIM ([id number]) 1945 M Date Time Provider Department 01/07/21 NEIL PIERCE) COVROCCO During your visit today, we recorded the following information about you: Allergies As of Date: 01/07/2021 (No Known Allergies) Date Reviewed: 10/07/2019 Reviewed by: Sharon (Rn) DOLORES Nunn - Fully Assessed Order(s):[employer] SARS-COV-2 VACCINE 2D DOSE APPT [[id number]] Order #: [id number] Prescriptions as of 01/07/2021 Sig: DOCUSATE SODIUM [...] 1 tablet by mouth once d* OMEGA 9-HVW-LFI-FISH OIL 1,00* Take 1 g by mouth [...] 08/21/2017 Shoulder pain [M25.519] 07/16/2019 Encounter Status:Open [facility] Lab Reportson 07-01-2020 Lab Reports [id number]:127 [facility] Reports [id number]:127 [facility] Coding Summary.on 11-27-2019 Coding Summary. 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 Ludwin Estrada Dictated: 11/25/2019 #[id number] Typed 11/25/2019 #[id number] cc: Althea Koroma M.D. [facility] Comment on above: Result Comment: Elec tronically Signed By: Althea Koroma MD\.br\Date and Time Signed: 11/26/19 16:05 EST Main OR Intraoperative Recor don 11-26-2019 Main OR Intraoperative Record IntraOp Document Type FT Summary Primary Physician: Althea Koroma MD Finalized Date/Time: 11/26/19 13:40:27 Pt. Name: AMINA LIM Adriano Benavidez/Sex: 1945 Male Med Rec #: [id number] Physician: Althea Koroma MD Financial #: [id number] Pt. Type: A Room/Bed: [place] [address] Admit/Disch: 11/25/19 12:23:56 - 11/25/19 15:20:00 Institution: Case Times FT Entry 1 Patient Times In Room 11/25/19 14:12:00 Out Room 11/25/19 14:44:00 Procedure Times Start 11/25/19 14:22:00 Stop 11/25/19 14:42:00 Anesthesia Times Last Modified By: Estella BERNAL, MELIAOR, Cortney 11/25/19 14:43:21 General Comments: 11/26/2019 Chart opened to review and send charges Anders Clayton SHIP CARPENTER Case Attendance FT Entry 1 Entry 2 Entry 3 Case Attendee Althea Koroma MD SHIP CARPENTER, Pattie Denson RN, Yaquelin Rowe Role Performed Surgeon - Primary Scrub - Primary Scrub - Primary Time In 11/25/19 14:12:00 11/25/19 14:12:00 11/25/19 14:12:00 Time Out 11/25/19 14:44:00 11/25/19 14:44:00 11/25/19 14:44:00 Procedure CATARACT EXTRACTION W/ CATARACT EXTRACTION W/ CATARACT EXTRACTION W/ INTRAOCULAR LENS(Right) INTRAOCULAR LENS(Right) INTRAOCULAR LENS(Right) Comments Last Modified By: Estella RN, CNOR, Estella RN, CNOR, Estella RN, CNOR, Cortney 11/25/19 Cortney 11/25/19 Cortney 11/25/19 14:43:22 14:43:22 14:43:22 Entry 4 Case Attendee SAMANTHA Soria RN, Ruthann Role Performed [employer]fu[employer] Plant Operations Engineer - Primary Time In 11/25/19 14:12:00 Time [...] Sam SANCHEZ, Jarett Stevens RN, Yaquelin Rowe, SAMANTHA Soria RN, Ruthann Time Out Complete 11/25/19 14:21:00 Outcomes [...] Yes Last Modified By: SAMANTHA Soria RN, Cortney 11/25/19 14:02:07 Post-Care Text: The patient is [...] Rowe Last Modified By: SAMANTHA Soria RN, Cortney 11/25/19 14:02:28 Post-Care Text: The patient is [...] Met? Yes Yes Yes Last Modified By: MELIA Soria RNOR, MELIA Soria RNOR, MELIA Soria RNOR, Crotney 11/25/19 Cortney 11/25/19 Cortney 11/25/19 14:02:53 14:02:53 [...] safely administered during the perioperative period For Contreras-Willacy please see scanned medication reconcilliation form for medications used at the field during the procedure. Implant Log FT Pre-Care Text: Records devices implanted during the operative or invasive procedure Entry 1 Procedure CATARACT EXTRACTION W/ Implant/Explant Implant INTRAOCULAR LENS(Right) Implant Identification FT Description HIMANSHU IOL [id number] SOFPORT Lot Number [id number] SIZE 20.5 [[id number] 20.5][F] Superintendent FT-BAUSCH AND LOMB Catalog ?# [id number] 20.5[F] Expiration Date 01/14/24 Unique Device [id number] Identifier (KATHLEEN) Human Readable {01}[id number] Machine Readable [id number] Barcode Barcode Usage Data FT Implant Site [...] 14:43 Tabitha Clayton CST 11/26/19 13:40 Normal [facility] Operative Reporton 0 Operative Report Date [...] to the surface of the globe. A Chicf[place] manometer was positioned and set at 20 [...] the Recovery Room in good condition. Althea Koroma M.D. lkr Dictated: 11/25/2019 #[id number] Typed: 11/26/2019 #[id number] cc: Althea Koroma M.D. [facility] Comment on above: Result Comment: Elec tronically Signed By: Althea Koroma MD\.br\Date and Time Signed: 11/26/19 16:05 EST Inpatient Patient Summaryon 11-25-2019 Inpatient Patient Summary [place] [address] [facility] Clinical Discharge Instructions PERSON INFORMATION Name: AMINA LIM PHYSICIANS Admitting Physician: Althea Koroma MD Attending Physician: Althea Koroma MD PCP: Ara YE, Narciso Discharge Diagnosis: Cataract; Floppy iris syndrome Comment: PATIENT EDUCATION INFORMATION Instructions: Medication Leaflets: Follow up: With: Address: When: Althea Koroma [address] [place] [address] [facility] (1) Comments: Call physician if symptoms worsen Keep scheduled appointment Type Location Start Finish State URO Office Visit [facility] 02/10/2020 9:15 AM 02/10/2020 9:30 AM Confirmed [...] International unit By Mouth every day. Comment: Normal [facility] Main OR PACU II Recordon Main OR PACU II Record PACU Phase II Doc ument Type FT Summary Primary Physician: Althea Koroma MD Finalized Date/Time: 11/25/19 15:24:08 Pt. Name: AMNIA LIM Adriano /Sex: 1945 Male Med Rec #: [id number] Physician: Althea Koroma MD Financial #: [id number] Pt. Type: A Room/Bed: [facility]/ Admit/Disch: 11/25/19 12:23:56 - 11/25/19 15:20:00 [...] By: Emy Thomas RN 11/25/19 15:24 Normal [facility] Main OR Preoperative Recordo n 11-25-2019 Main OR Preoperative Record Holding Area Document Type FT Summary Primary Physician: Alhtea Koroma MD Finalized Date/Time: 11/25/19 12:48:49 Pt. Name: AMINA LIM/Sex: 1945 Male Med Rec #: [id number] Physician: Althea Koroma MD Financial #: [id number] Pt. Type: A [facility] Admit/Disch: 11/25/19 12:23:56 - Institution: Case Times [...] By: Cynthia James RN 11/25/19 12:48 Normal [facility] Patient Education - Texton 0 11-25-2019 Patient Education - Text Normal [facility] Basic Metabolic Panlon 07-17 Anion gap [Moles/Vol] 10 mmol/L Normal 0-15 [facility] Calcium [Mass/Vol] 8.4 mg/dL Low 8.5-10.5 [facility] Chloride [Moles/Vol] 106 mmol/L Normal 98-110 [facility] CO2 [Moles/Vol] 21 mmol/L Low 23-32 [facility] Creatinine [Mass/Vol] 1.23 mg/dL Normal 0.7-1.4 [facility] Hospital Glucose [Mass/Vol] 176 mg/dL High 65-100 [facility] Potassium [Moles/Vol] 4.1 mmol/L Normal 3.5-5.0 [facility] Sodium [Moles/Vol] 137 mmol/L Normal 135-146 [facility] Urea nitrogen [Mass/Vol] 22 mg/dL Normal 8-25 [facility] CASE MANAGEMon 07-17-2019 CASE MANAGEM HNO ID: [id number] Author: Nichelle Henao (Sw) Service: ? Author Type: Plasterer Apprentice Type: Care Mgt Progress Note Filed: 07/17/2019 [...] 17, 2019 TIME: 11:04 AM PAGER/CONTACT #: [phone] [facility] CASE MGT [facility]: [id number] Author: Nichelle Henao (Sw) Service: ? 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 No Advance Directive: Current Advance Directive: None Assistant Chief Nursing Officer Attempted to Assist with AD Completion: Yes [...] None Has the Patient Been in a Fci Facility in the Past 30 days? No SOCIAL: Living Arrangement: Home Lives With: Spouse Financial Resources: Retired Primary Contact: Extended Emergency Contact Information Primary Emergency Contact: Tanja Lim Address: [address] [place] [id number] [facility] Mobile Relation: Spouse Supportive: Yes Other Important [...] 0 I feel financially burdened by my bld-ay-iyxadb expenses for my prescription medication: Disagree completely [...] 17, 2019 TIME: 11:02 AM PAGER/CONTACT #: [phone] Normal [facility] CBCon 07-17-2019 Absolute nRBC <0.01 Normal <0.01 [facility] Erythrocyte distribution width (RBC) [Ratio] 13.2 % Normal 11.5-15.0 [facility] Hematocrit (Bld) [Volume fraction] 32.9 % Low 39.0-51.0 [facility] Hemoglobin (Bld) [Mass/Vol] 11.0 g/dL Low 13.0-17.0 [facility] MCH (RBC) [Entitic mass] 30.6 pG Normal 26.0-34.0 [facility] MCHC (RBC) [Mass/Vol] 33.4 g/dL Normal 30.5-36.0 [facility] MCV (RBC) [Entitic vol] 91.6 fL Normal 80.0-100.0 [facility] Platelet mean volume (Bld) [Entitic vol] 10.4 fL Normal 9.0-12.7 [facility] Platelets (Bld) [#/Vol] 188 10*3/uL Normal 150-400 [facility] RBC (Bld) [#/Vol] 3.59 10*6/uL Low 4.20-6.00 [facility] WBC (Bld) [#/Vol] 16.37 10*3/uL High 3.70-11.00 [facility] NURSING PROGon 07-17-2019 NURSING PROG HNO ID: [id number] Author: Prudence (Rn) DOLORES Bowen Service: Nursing Author Type: Registered Nurse Type: Nursing Progress Note Filed: 07/17/2019 1:33 PM Note Text: Nursing Progress Note Patient Name: Amina Lim Patient Location: [place] [address] Daily Note:.Assumed care of patient, assessment [...] note was completed by: Prudence Bowen RN [facility] PROGRESSon 07-17-2019 PROGRESS HNO ID: [id number] Author: Syk Echols Service: General Internal Medicine Author Type: [...] replacement of right shoulder : with DR Ricchetti. Continue with PT/OT. Encourage strict IS. Acute [...] of care with Dr. Echols. Yeny Walters APRN.CHILD CARE ATTENDANT [employer]CHOOL July 17, 2019 10:36 AM I have seen the patient and verified the exam. I have personally reviewed all labs and imaging results. I have discussed with the MEDICATION TECH and I have participated in montelongo components. I agree with the note as documented with additional comments if needed. The assessment and plan as outlined are reflection of our discussion. Sky Echols MD July 17, 2019 [facility] PROGRESS HNO ID: [id number] Author: Rolly (Raquel Osullivan MD Service: Orthopaedic Surgery Author [...] (U/L) Date Value 07/27/2009 29 URINALYSIS Specific [place], Ur Date Value Ref Range Status 08/24/2009 [...] Osullivan MD Resident Physician PGY-2 Orthopaedic Surgery 81341 For urgent issues or if after 5:00 PM/weekends, please page [phone]) Normal [facility] THERAPY NTon 07-17-2019 THERAPY NT HNO ID: [id number] Author: Roseanne (Ot) Gregory Service: Occupational Therapy Author Type: Occupational Therapist Type: Therapy (PT/OT/Speech/Resp) Filed: 07/17/2019 3:00 PM Note Text: Occupational Therapy Evaluation SERVICE DATE: 07/17/2019 SERVICE TIME: 0950 to 1020 ROOM: [place] [address] Recommended Discharge Disposition: Home Anticipated Discharge Needs: [...] of daily living (ADL) Interventions Provided: Evaluation;Self Retirement Management (58068) $ Evaluation-Low (94293) Billed Units: 1 unit Self Retirement Management (53315) Treatment Minutes: 23 2 units Skilled Intervention(s): [...] 74 yo M admitted on 07/16/19 for [place] PRICE [address] Dr Thomas. Reason for Occupational Therapy [...] DATE: July 17, 2019 TIME: 2:46 PM [facility] THERAPY NT HNO ID: [id number] Author: Roseanne Jenkins Service: Occupational Therapy Author Type: Occupational Therapist Type: Therapy (PT/OT/Speech/Resp) Filed: 07/17/2019 3:08 PM Note Text: Occupational Therapy Treatment SERVICE DATE: 07/17/2019 SERVICE TIME: 1155 to 1240 ROOM: [facility] [place]-[facility]-1 Recommended Discharge Disposition: Home Anticipated Discharge Needs: [...] daily living (ADL) Interventions Provided: Therapeutic Exercise (59488);Self Retirement Management (32191) Therapeutic Exercise (46172) Treatment Minutes: 10 1 unit Skilled Intervention(s): Instruction in therapeutic exercise Verbal and tactile cuing provided Facilitation of muscle control, optimal recruitment and alignment Education in PROM shoulder to 90 degrees FF passively and work toward limit of 120 degrees. Spouse able to perform PROM to 90 degrees as well Self Retirement Management (99406) Treatment Minutes: 35 2 units Skilled Intervention(s): [...] DATE: July 17, 2019 TIME: 3:04 PM [facility] THERAPY NT HNO ID: [id number] Author: Floresita Ray Service: Physical Therapy Author Type: Physical Therapist Type: Therapy (PT/OT/Speech/Resp) Filed: 07/17/2019 1:21 PM Note Text: PHYSICAL THERAPY MISSED VISIT SERVICE DATE: 07/17/2019 SERVICE TIME: 1320 to 1320 ROOM: [place] [address] (EU OR POST OP) Attempted Evaluation. Patient not seen due to No Skilled Needs. Patient's post op needs can be met by OT. Pt does not have any functional mobility impairment. Will discontinue PT order. SIGNATURE: Floresita Ray PT PATIENT NAME: Amina Lim DATE: July 17, 2019 TIME: 1:21 PM [facility] ALLIED [facility] 07-16-2019 ALLIED HEALTH HNO ID: [id number] Author: Armen Redmond (Rt) Service: Radiology Author Type: Process Inspector Type: Allied Health Filed: 07/16/2019 3:56 PM [...] RT Elijah July 16, 2019 3:56 PM [facility] HNO ID: [id number] Author: Armen Redmond (Rt) Service: Radiology Author Type: Process Inspector Type: Allied Health Filed: 07/16/2019 3:47 PM [...] RT Elijah July 16, 2019 3:47 PM [facility] ANES Gerry 07-16-2019 ANES POST HNO ID: [id number] Author: Jordan Desai Service: Anesthesiology Author Type: Anesthesiologist Type: Anesthesia PostOp Filed: 07/16/2019 5:30 PM Note Text: POST ANESTHESIA EVALUATION NOTE SERVICE DATE: 07/16/2019 SERVICE TIME: 5:30 PM : 1945 Vitals: 07/16/19 1050 07/16/19 1519 07/16/19 170 Temp: 36.5 ?C (97.7 ?F) 36.6 ?C (97.9 ?F) 36.5 ?C (97.7 ?F) 07/16/19 16107/16/19 1630 07/16/19 1645 07/16/19 170 BP: 146/78 141/74 132/72 141/70 07/16/19 1615 07/16/19 1630 07/16/19 1645 07/16/19 170 Pulse: 62 61 65 71 07/16/19 1615 07/16/19 1630 07/16/19 1645 07/16/19 170 Resp: 18 16 27 18 07/16/19 1615 07/16/19 1630 07/16/19 1645 07/16/19 170 SpO2: 94% 94% 93% 96% Validated [...] 16, 2019 TIME: 5:30 PM PAGER/CONTACT #: [phone] [facility] ANES PREOPon 07-16-2019 ANES PREOP HNO ID: [id number] Author: Jordan Desai Service: Anesthesiology Author Type: [...] Take 1 tablet by mouth once daily. Xrwrl-4-RTJ-EPA-Fish Oil (FISH OIL) 1,000 mg (120 mg-180 mg) cap Take 1 g by mouth once daily. Lecithin 1,200 mg cap Take 1 capsule by mouth once daily. lovastatin (MEVACOR) 20 mg tablet Take 20 mg by mouth daily at bedtime. multivitamin (MULTIPLE VITAMINS) tablet Take 1 tablet by mouth once daily. Saw [place] 160 mg capsule Take 160 mg by [...] lactated ringers infusion 5-30 mL/hr INTRAVENOUS CONTINUOUS Sing[place] (Pa) Sell II - ceFAZolin iv piggyback 2 [...] DATE: July 16, 2019 TIME: 10:51 AM [facility] CONSULTon 07-16-2019 CONSULT HNO ID: [id number] Author: Yeny Walters Service: General Internal Medicine [...] by mouth once daily. Disp: Rfl: 07/05/2019 Vaxhn-5-RWP-EPA-Fish Oil (FISH OIL) 1,000 mg (120 mg-180 [...] mouth once daily. Disp: Rfl: 07/05/2019 [place] 160 mg capsule Take 160 mg by [...] the care of your patient. Yeny Walters, LULÚ.CHILD CARE ATTENDANT [employer]CHOOL July 16, 2019 5:46 PM Normal [facility] OPERATIVE NOon 07-16-2019 OPERATIVE NO HNO ID: [id number] Author: Anshu Thomas Service: Orthopaedic Surgery Author Type: Physician Type: Operative Report Filed: 07/16/2019 3:21 PM Note Text: [place] [address] [place] OPERATIVE REPORT NAME: Amina Oh [facility] #: [id number] DATE: 07/16/2019 (1:12pm-3:12pm) AGE: 74 SURGEON 1: Anshu Thomas M.D. TRANSCRIBER: 1. Brain Kay M.D. 2. Rolly Osullivan [...] INDICATIONS: The patient is a 74 year oldxuy-caih-zxw right-hand dominant white male who has a [...] a #2 Ticron suture passed in a vuthmo-ct-djirt fashion. Following this, all retractors were removed, [...] DRAINS: none SPECIMENS: none COMPLICATIONS: none apparent Asnhu Thomas M.D. [facility] XR SHOULDER SPECIFY 1V RTon 07-16-2019 XR [...] on Jul 16 2019 3:57PM EST [id number] [facility] NURSING PROGon 06-27-2019 NURSING PROG HNO ID: [id number] Author: Norma (Rn) DOLORES Adorno Service: Nursing [...] glucose 114 06/25/19 TANDS 30 day in [facility] 03/14/17 [place] Imaging Within Last 12 Months: 06/25/19 ct shoulder in [facility] 12/13/18 xr shoulder 3v Cardiac Testin06/25/19 prelim ekg in [facility] Last Menstrual Period: NA BMI Percentile (PEDS): N/A Risk Assessment: N/A Anesthesia Review: N/A Narrative: N/A Pre-op Considerations: [facility] HX CLARENCE- CPAP at night History of Prostate CA with Radiation and insertion of Seeds CKD follows with Nephrology Chart Check: IN PROGRESS NEED FINAL EKG Marialuisa Cates RN June 27, 2019 1:24 PM July 15, 2019 8:38 AM Final EKG from 06/25/19--Sinus allegra (57bpm) Norma Adorno RN [facility] Type and SCR (30D)on 019 ABO/RH(D) Positive [facility] HOSPon 12-13-2018 HOSP Patient:Amina Lim MRN: [...] (VITAMIN C) 1,000 mg tablet MINERALS ORAL Ixicf-4-NOR-EPA-Fish Oil (FISH OIL) 1,000 mg (120 mg-180 mg) cap Lecithin 1,200 mg cap lovastatin (MEVACOR) 20 mg tablet multivitamin (MULTIPLE VITAMINS) tablet Saw [place] 160 mg capsule vitamin b complex tab [...] notes entered within the past 30 days [facility] XR SHLDR >/=3V AP/RADHA AP/OTH R LTon [...] on Dec 10 2018 9:43AM EST [id number] [facility] XR SHLDR >/=3V AP/RADHA AP/OTH R [...] on Dec 10 2018 9:37AM EST [id number] [facility] Vital Signs Date Time Vital Sign Value Performing Clinician Facility 08-13-2024 13:140400 Body height 177.8 cm Queta MOSELEY Work Phone: [facility] 08-13-2024 13:14-0400 Body mass index (BMI) [Ratio] 29.96 kg/m2 Queta MOSELEY Work Phone: [facility] 08-13-2024 13:140400 Body weight 94.71 kg Queta MOSELEY Work Phone: [facility] 05-16-2023 09:10-0400 Body height 179.1 cm Lyndsay Maditz DO Work Phone: [facility] 05-16-2023 09:10-0400 Body weight 92.53 kg Lyndsay Maditz DO Work Phone: [facility] 05-16-2023 09:10-0400 Diastolic blood pressure 77 mm[Hg] Lyndsay Maditz DO Work Phone: [facility] 05-16-2023 09:10-0400 Heart rate 43 /min Lyndsay Maditz DO Work Phone: [facility] 05-16-2023 09:10-0400 Systolic blood pressure 171 mm[Hg] Lyndsay Maditz DO Work Phone: [facility] 09-06-2022 11:20-0500 Body height 177.8 cm Yudith Rubin Other [employer] Other 09-06-2022 11:20-0500 Body mass index (BMI) [Ratio] 29.9 kg/m2 Yudith Irelands Other [employer] Other 09-06-2022 11:20-0500 Body temperature 96.5 [degF] Yudith Irelands Other [employer] Other 09-06-2022 11:20-0500 Body weight 94.53 kg Yudith Irelands Other [employer] Other 09-06-2022 11:20-0500 Diastolic blood pressure 88 mm[Hg] Yudith Irelands Other [employer] Other 09-06-2022 11:20-0500 Respiratory rate 18 /min Yudith Irelands Other [employer] Other 09-06-2022 11:20-0500 SaO2% (BldA) [Mass fraction] 98 % Yudith Irelands Other [employer] Other 09-06-2022 11:20-0500 Systolic blood pressure 159 mm[Hg] Azradha Irelands Other [employer] Other 09-22-2021 11:20-0500 Body height 177.8 cm Ileana Earl Other [employer] Other 09-22-2021 11:20-0500 Body mass index (BMI) [Ratio] 30.93 kg/m2 Ileana Earl Other [employer] Other 09-22-2021 11:20-0500 Body temperature 96.4 [degF] Ileana Earl Other [employer] Other 09-22-2021 11:20-0500 Body weight 97.8 kg Ileana Earl Other [employer] Other 09-22-2021 11:20-0500 Diastolic blood pressure 75 mm[Hg] Ileana Earl Other [employer] Other 09-22-2021 11:20-0500 Respiratory rate 18 /min Ileana Earl Other [employer] Other 09-22-2021 11:20-0500 SaO2% (BldA) [Mass fraction] 97 % Ileana Earl Other [employer] Other 09-22-2021 11:20-0500 Systolic blood pressure 119 mm[Hg] Ileana Earl Other [employer] Other Encounters Encounter Date Encounter Type Care Provider Facility Start: 10-08-2024 End: 10-08-2024 ambulatory Shirlene Blakely PT Work Phone: [facility] Comment on above: Acute postoperative pain of left knee (Primary Dx); S/P total knee replacement, left Start: 10-03-2024 End: 10-03-2024 Bamboo flowsheet Queta MOSELEY Work Phone: [facility] Start: 10-03-2024 End: 10-03-2024 Bamboo flowsheet Queta MOSELEY Work Phone: [facility] Start: 10-03-2024 End: 10-03-2024 Postop follow up visit related to original px Queta Mcnamara Jarek PA Work Phone: [facility] Comment on above: S/P TKR (total knee replacement), left (Primary Dx); Acute pain of left knee Start: 10-03-2024 End: 10-03-2024 ambulatory Shirlene M Medves PT Work Phone: [facility] Comment on above: Acute postoperative pain of left knee (Primary Dx); S/P total knee replacement, left Start: 09-30-2024 End: 09-30-2024 ambulatory Shirlene M Medves PT Work Phone: [facility] Comment on above: Acute postoperative pain of left knee (Primary Dx); S/P total knee replacement, left Start: 09-27-2024 End: 09-27-2024 Bamboo flowsheet Roseanne Sousa PT Work Phone: [facility] Start: 09-27-2024 End: 09-27-2024 Bamboo flowsheet Roseanne Sousa PT Work Phone: [facility] Start: 09-27-2024 End: 09-27-2024 ambulatory ROSEANNE SOUSA Not Available Start: 09-23-2024 End: 09-23-2024 Bamboo flowsheet Shirlene M Medves PT Work Phone: [facility] Start: 09-23-2024 End: 09-23-2024 Bamboo flowsheet Shirlene M Medves PT Work Phone: [facility] Start: 09-23-2024 End: 09-23-2024 ambulatory Shirlene M Medves PT Work Phone: [facility] Comment on above: Acute postoperative pain of left knee (Primary Dx); S/P total knee replacement, left Start: 09-18-2024 End: 09-18-2024 Bamboo flowsheet Giacomo Carmichael [employer] [facility] Start: 09-18-2024 End: 09-18-2024 Bamboo flowsheet Giacomo Carmichael [employer] [facility] Start: 09-18-2024 End: 09-18-2024 ambulatory Giacomo Carmichael [employer] [facility] Comment on above: S/P total knee repla cement, left (Primary Dx); Acute postoperative pain of left knee Start: 09-16-2024 End: 09-16-2024 Bamboo flowsheet Roseanne Sousa PT Work Phone: [facility] Start: 09-16-2024 End: 09-16-2024 Bamboo flowsheet Roseanne Sousa PT Work Phone: [facility] Start: 09-16-2024 End: 09-16-2024 ambulatory Roseanne Sousa PT Work Phone: [facility] Comment on above: S/P total knee repla cement, left (Primary Dx); Acute postoperative pain of left knee Start: 09-11-2024 End: 09-11-2024 Bamboo flowsheet Roseanne Sousa PT Work Phone: [facility] Start: 09-11-2024 End: 09-11-2024 Bamboo flowsheet Roseanne Sousa PT Work Phone: [facility] Start: 09-11-2024 End: 09-11-2024 ambulatory Roseanne Sousa PT Work Phone: [facility] Comment on above: S/P total knee repla cement, left (Primary Dx); Acute postoperative pain of left knee Start: 09-09-2024 End: 09-10-2024 ambulatory Roseanne Sousa PT Work Phone: [facility] Comment on above: S/P total knee repla cement, left (Primary Dx); Acute postoperative pain of left knee Start: 09-09-2024 End: 09-09-2024 Bamboo flowsheet Roseanne Sousa PT Work Phone: [facility] Start: 09-09-2024 End: 09-09-2024 Bamboo flowsheet Roseanne Sousa PT Work Phone: [facility] Start: 09-05-2024 End: 09-05-2024 Bamboo flowsheet Queta Tilley PA Work Phone: [facility] Start: 09-05-2024 End: 09-05-2024 Bamboo flowsheet Queta Anders Tilley PA Work Phone: [facility] Start: 09-05-2024 End: 09-05-2024 Postop follow up visit related to original px Queta Tilley PA Work Phone: [facility] Comment on above: S/P TKR (total knee replacement), left (Primary Dx); Post-operative pain Start: 09-05-2024 End: 09-05-2024 ambulatory QUETA Mcnamara TILLEY Not Available Start: 08-29-2024 End: 08-30-2024 Refill José Manuel Wylie MEDICATION TECH Work Phone: [facility] Comment on above: Post-operative pain Start: 08-21-2024 End: 08-21-2024 Refill José Manuel Wylie MEDICATION TECH Work Phone: [facility] Comment on above: Post-operative pain (Primary Dx) Start: 08-20-2024 End: 08-20-2024 Orders Only Queta MOSELEY Work Phone: [facility] Comment on above: Encounter for other preprocedural examination Start: 08-20-2024 End: 08-20-2024 Patient encounter status Quetapippa MOSELEY Work Phone: [facility] Start: 08-14-2024 End: 08-14-2024 Telephone encounter Jr. El Ruiz DO Work Phone: [facility] Comment on above: Surgery Start: 08-13-2024 End: 08-13-2024 ambulatory QUETA TILLEY [facility] Start: 08-13-2024 Encounter for other preprocedural examination QUETA TILLEY [facility] Start: 08-13-2024 End: 08-13-2024 External Result Encounter Queta MOSELEY Work Phone: [facility] External Department Unsolicited Start: 08-13-2024 End: 08-13-2024 External Result Encounter uQeta Mcnamara Jarek MOSELEY Work Phone: [facility] External Department Unsolicited Start: 08-13-2024 End: 08-13-2024 Orders Only Queta Mcnamara Jarek MOSELEY Work Phone: [facility] Comment on above: Encounter for other preprocedural examination Start: 08-13-2024 End: 08-13-2024 Patient encounter status Queta Tilley LORELEI Work Phone: [facility] Start: 08-13-2024 End: 08-13-2024 Patient encounter procedure Queta Mcnamara Jarek MOSELEY Work Phone: [facility] Comment on above: Preop examination (P rimary Dx); Primary osteoarthritis of left knee; Eczema, unspecified type Start: 08-13-2024 End: 08-13-2024 Preprocedural examination done Queta Mcnamara Jarek MOSE[place] Work Phone: [facility] [facility] Start: 08-13-2024 End: 08-13-2024 ambulatory QUETA TILLEY Not Available Start: 08-07-2024 End: 08-07-2024 [employer] Jr. El Matos Stepjayce DO Work Phone: [facility] Start: 08-07-2024 End: 08-07-2024 Bamboo flowsheet Jr. El Matos Stepjayce DO Work Phone: [facility] Start: 08-07-2024 End: 08-07-2024 ambulatory EL GONSALEZ Not Available Start: 08-07-2024 End: 08-07-2024 Office outpatient visit 25 minutes Jr. El Ruiz DO Work Phone: [facility] Comment on above: Acute pain of right knee (Primary Dx); History of right knee joint replacement; Primary osteoarthritis of left knee Start: 06-26-2024 End: 06-26-2024 Bamborodriguez Ruiz DO Work Phone: [facility] Start: 06-26-2024 End: 06-26-2024 Bamboo flowsheet Jr. El Ruiz DO Work Phone: [facility] Start: 06-26-2024 End: 06-26-2024 Postop follow up visit related to original px . El Matos Joseph DO Work Phone: [facility] Comment on above: S/P TKR (total knee replacement), right (Primary Dx); Primary osteoarthritis of left knee Start: 06-26-2024 End: 06-26-2024 ambulatory , EL RUIZ Not Available Start: 05-16-2024 End: 05-16-2024 ambulatory SHIRLENE BLAKELY Not Available Start: 05-15-2024 End: 05-15-2024 ambulatory QUETA TILELY Not Available Start: 05-14-2024 End: 05-14-2024 ambulatory GIACOMO CARMICHAEL Not Available Start: 05-08-2024 End: 05-08-2024 ambulatory BONILLA HOWARD Not Available Start: 05-06-2024 End: 05-06-2024 ambulatory AMEENAFLOWER SHOEMAKERK Not Available Start: 05-01-2024 End: 05-01-2024 ambulatory BONILLA HOWARD Not Available Start: 04-29-2024 End: 04-29-2024 ambulatory BONILLA HOWARD Not Available Start: 04-26-2024 End: 04-26-2024 ambulatory AMEENA GUZIK Not Available Start: 04-24-2024 End: 04-24-2024 ambulatory AMEENA GUZIK Not Available Start: 04-22-2024 End: 04-22-2024 ambulatory SHIRLENE M MEDVES Not Available Start: 04-17-2024 End: 04-17-2024 ambulatory QUETA TILLEY Not Available Start: 03-20-2024 End: 03-20-2024 ambulatory SHIRLENE M MEDVES Not Available Start: 03-18-2024 End: 03-18-2024 Patient encounter procedure MD Narciso Bullock Work Phone: [facility] Work Phone: Start: 03-18-2024 End: 03-18-2024 ambulatory MD Narciso Bullock Work Phone: [facility] Work Phone: Start: 03-18-2024 Encounter for other preprocedural examination Queta Tilley [facility] Start: 03-18-2024 End: 03-18-2024 ambulatory QUETA TILLEY Not Available Start: 02-02-2024 End: 02-02-2024 ambulatory EL GONSALEZ Not Available Start: 11-14-2023 End: 11-14-2023 ambulatory [facility] Start: 10-02-2023 End: 10-02-2023 ambulatory [facility] Start: 08-08-2023 End: 08-08-2023 ambulatory PARI [facility] Start: 06-14-2023 End: 06-14-2023 ambulatory NARCISO BULLOCK Facility:[facility] Start: 06-06-2023 End: 06-06-2023 ambulatory [facility] Start: 05-24-2023 ambulatory 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 Facili ty:[facility] Start: 10-03-2022 End: 10-03-[address] NARCISO BULLOCK . Facility:[facility] Start: 09-06-2022 End: 09-06-2022 ambulatory Yudith Rubin Other [employer] Other Start: 09-06-2022 Office outpatient vi sit 15 minutes Yudith Rubin [facility] Start: 09-01-2022 End: 09-02-[address] NARCISO BULLOCK . Facility:[facility] Start: 09-01-2022 End: 09-02-[address] NARCISO BULLOCK . Facility: Start: 09-22-2021 End: 09-22-2021 ambulatory Ileana Earl Other [facility] [employer] Other Start: 09-22-2021 Office outpatient vi sit 15 minutes Ileana Earl [facility] Start: 12-10-2018 End: 12-10-2018 Patient encounter procedure [facility] Procedures Date Procedure Procedure Detail Performing Clinician Start: 10-03-2024 Radiologic examinati on knee 1/ views Queta MOSELEY Work Phone: Start: 08-13-2024 Thromboplastin time partial plasma/whole blood Queta MOSELEY Work Phone: Start: 09-01-[address] EH BULLOCK . Comment on above: Performed By: #### P [facility] #### [facility] [address] [place] [address] Dr. Xena Pickard Start: 06-25-2019 Antibody screen History of operative procedure on knee History of right knee joint replacement El Matos Joseph DO Work Phone: Plan of Treatment Date Care Activity Detail Author Start: 11-07-2024 End: 11-07-2024 Patient encounter procedure 11/07/2024 8:15 AM EST Office Visit [facility] [address] [place] [id number] Queta Tilley PA [address] [place] [address] [facility] Start: 10-18-2024 End: 10-18-2024 ambulatory 10/18/2024 8:30 AM EST Treatment [facility] [address] [place] [phone] Giacomo Carmichael PTA [facility] Start: 10-08-2024 End: 10-08-2024 ambulatory 10/08/2024 10:15 AM EST Treatment [facility] [address] [place] [phone] Shirlene Blakely, PT [address] [place] [address] [facility] Start: 10-03-2024 End: 10-03-2024 ambulatory 10/03/2024 10:00 AM EST Treatment [facility] [address] [place] [address] Shirlene Blakely, PT [address] [place] [address] [facility] Start: 10-03-2024 End: 10-03-2024 Patient encounter procedure [facility] Comment on above: S/P TKR (total knee replacement), left (Primary Dx) Start: 09-30-2024 End: 09-30-2024 ambulatory 09/30/2024 5:30 PM EST Treatment [facility] [address] [place] [address] Roseanne Sousa, PT [address] [place] [address] [facility] Start: 09-30-2024 End: 09-30-2024 ambulatory 09/30/2024 10:30 AM EST Treatment [facility] [address] [place] [address] Ameena Mahajan PTA [facility] Start: 09-27-2024 End: 09-27-2024 ambulatory [facility] Comment on above: Arrived Start: 09-23-2024 End: 09-23-2024 ambulatory [facility] Comment on above: Acute postoperative pain of left knee (Primary Dx); S/P total knee replacement, left Start: 09-20-2024 End: 09-20-2024 ambulatory 09/20/2024 8:45 AM EST Treatment [facility] [address] [place] [address] Roseanne Sousa, PT [address] [place] [address] [facility] Start: 09-18-2024 End: 09-18-2024 ambulatory 09/18/2024 9:00 AM EST Treatment [facility] [address] [place] [address] Giacomo Carmichael PTA [facility] Start: 09-16-2024 End: 09-16-2024 ambulatory [facility] Comment on above: Arrived Start: 09-11-2024 End: 09-11-2024 ambulatory [facility] Comment on above: Arrived Start: 09-09-2024 End: 09-09-2024 ambulatory [facility] Comment on above: S/P total knee repla cement, left Start: 09-05-2024 End: 09-05-2024 Patient encounter procedure [facility] Comment on above: S/P TKR (total knee replacement), left (Primary Dx) Start: 08-13-2024 End: 08-20-2025 Glucose dipstick, urine Glucose dipstick, urine Lab Routine Encounter for other preprocedural examination Expected: 08/13/2024, Expires: 08/20/2025 [facility] Work Phone: Comment on above: Expected: 08/13/2024 , Expires: 08/20/2025 Start: 08-09-2024 End: 08-09-2025 aPTT in Blood by Coagulation assay APTT Lab Routine Preop examination Expected: 08/09/2024 (Approximate), Expires: 08/09/2025 [facility] Work Phone: Comment on above: Expected: 08/09/2024 (Approximate), Expires: 08/09/2025 Start: 08-09-2024 End: 08-13-2025 Bacteria identified in Urine by Culture [facility] Work Phone: Comment on above: Expected: 08/09/2024 , Expires: 08/13/2025 Expected: 08/09/2024 (Approximate), Expires: 08/09/2025 Start: 08-09-2024 End: 08-09-2025 CBC W Auto Differential panel - Blood CBC auto differential Lab Routine Preop examination Expected: 08/09/2024 (Approximate), Expires: 08/09/2025 [facility] Comment on above: Expected: 08/09/2024 (Approximate), Expires: 08/09/2025 Start: 08-09-2024 End: 08-09-2025 Comprehensive metabolic 2000 panel - Serum or Plasma Comprehensive metabolic panel Lab Routine Preop examination Expected: 08/09/2024 (Approximate), Expires: 08/09/2025 [facility] Healthcare Comment on above: Expected: 08/09/2024 (Approximate), Expires: 08/09/2025 Start: 08-09-2024 End: 08-09-2025 Prothrombin time (PT) in Blood by Coagulation assay Protime-INR Lab Routine Preop examination Expected: 08/09/2024 (Approximate), Expires: 08/09/2025 [facility] Comment on above: Expected: 08/09/2024 (Approximate), Expires: 08/09/2025 Start: 08-09-2024 End: 08-09-2025 Urinalysis complete panel - Urine Urinalysis with reflex microscopic Lab Routine Preop examination Expected: 08/09/2024 (Approximate), Expires: 08/09/2025 [facility] Comment on above: Expected: 08/09/2024 (Approximate), Expires: 08/09/2025 Start: 08-09-2024 End: 08-09-2025 XR Femur and Tibia Views for leg length XR lower extremity leg length evaluation Imaging Routine Preop examination Expected: 08/09/2024 (Approximate), Expires: 08/09/2025 [facility] Comment on above: Expected: 08/09/2024 (Approximate), Expires: 08/09/2025 Start: 08-07-2024 End: 08-07-2024 Patient encounter procedure 08/07/2024 10:00 AM EDT Office Visit [facility] [address] [place] [address] Jr. El Ruiz, DO [address] [place] [address] [facility] Start: 06-26-2024 End: 06-26-2024 Patient encounter procedure 06/26/2024 11:15 AM EDT Office Visit [facility] [address] [place] [address] Jr. El Ruiz, [address] [facility] [address] [place] [address] Arrived [facility] Comment on above: Arrived Start: 06-16-2024 COVID-19 Vaccine () COVID-19 Vaccine () [facility] Start: 06-16-2024 Influenza vaccination N [facility] Start: 06-14-2024 HEMOGLOBIN/HEMATOCRIT HEMOGLOBIN/HEM ATOCRIT [facility] Start: 06-14-2024 SERUM CREATININE SERUM CREATININE Cl [facility] Start: 03-18-2024 Bacteria identified in Urine by Culture [facility] Start: 06-16-2023 Influenza vaccination INFLUENZA (#1) [facility] Start: 05-16-2023 End: 07-16-2023 25-hydroxyvitamin D3 [Mass/volume] in Serum or Plasma VITAMIN D 25 HYDROXY Lab Routine Chronic kidney disease, unspecified CKD stage Expected: 05/16/2023, Expires: 07/16/2023 [facility] Work Phone: Comment on above: Expected: 05/16/2023 , Expires: 07/16/2023 Start: 05-16-2023 End: 07-16-2023 MONOCLONAL PROTEIN, SERUM (BLOOD) MONOCLONAL PROTEIN, SERUM (BLOOD) Lab Routine Chronic kidney disease, unspecified CKD stage Expected: 05/16/2023, Expires: 07/16/2023 [facility] Work Phone: Comment on above: Expected: 05/16/2023 , Expires: 07/16/2023 Start: 05-16-2023 End: 07-16-2023 Parathyrin.intact [Mass/volume] in Serum or Plasma PTH INTACT BLD Lab Routine Chronic kidney disease, unspecified CKD stage Expected: 05/16/2023, Expires: 07/16/2023 [facility] Work Phone: Comment on above: Expected: 05/16/2023 , Expires: 07/16/2023 Start: 10-16-2022 ADVANCE DIRECTIVE DISCUSSION ADVANCE DIRECTIVE DISCUSSION [facility] Start: 10-16-2022 DEPRESSION ASSESSMENT DEPRESSION ASS ESSMENT [facility] Start: 07-17-2022 DIABETES SCREEN [facility]CREEN [facility] Start: 03-04-2021 COVID-19 VACCINE (3 - Pfizer series) COVID-19 VACCINE (3 - Pfizer series) [facility] Start: 07-17-2020 HEMOGLOBIN/HEMATOCRIT HEMOGLOBIN/HEM ATOCRIT [facility] Start: 07-17-2020 SERUM CREATININE SERUM CREATININE Cl [facility] Start: 11-16-2017 PNEUMOCOCCAL: 65+ (2 - PCV) PNEUMOCOCCAL: 65+ (2 - PCV) [facility] Start: 2011 Fall Risk Screening Fall Risk Screen ing [facility] Start: 1996 Administration of varicella zoster vaccine Zoster (Shingles) Vaccine (1 of 2) [facility] Start: 1996 SHINGRIX VACCINE (1 of 2) SHINGRIX VACCINE (1 of 2) [facility] Start: 1965 DTaP,Tdap and Td Vaccines (1 - Tdap) DTaP,Tdap and Td Vaccines (1 - Tdap) [facility] Start: 1965 Urine microalbumin profile DTAP,TDAP,TD (1 - Tdap) [facility] Start: 1964 Adult BMI Screening Adult BMI Screen ing [facility] Start: 1964 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 MAURI DISEASE VISIT ANNUAL PCP TEAM CHRONIC DISEASE VISIT [facility] Start: 1964 BP CONTROLLED (<130/80) BP CONTROLLE D (<130/80) [facility] Start: 1964 HEPATITIS C SCREENING HEPATITIS C SC REENING [facility] Start: 1958 Depression Screening Depression Scre ening [facility] Start: 1958 Tobacco Screening Tobacco Screening [facility] Start: 1946 Medicare Annual Well ness Visit Medicare Annual Wellness Visit [facility] Bacteria identified in Urine by Culture Urine Culture Microbiology Routine Encounter for other preprocedural examination 08/13/2024 6:13 PM EDT [facility] End: 05-16-2024 CBC panel - Blood by Automated count CBC Lab Routine Chronic kidney disease, unspecified CKD stage Every 3 months for 4 Occurrences starting 05/16/2023 until 05/16/2024 [facility] Work Phone: Comment on above: Every 3 months for 4 Occurrences starting 05/16/2023 until 05/16/2024 End: 05-16-2024 Protein/Creatinine [Mass Ratio] in Urine PROTEIN CREATININE RATIO Lab Routine Chronic kidney disease, unspecified CKD stage Every 3 months for 4 Occurrences starting 05/16/2023 until 05/16/2024 [facility] Work Phone: Comment on above: Every 3 months for 4 Occurrences starting 05/16/2023 until 05/16/2024 End: 05-16-2024 Renal function 2000 panel - Serum or Plasma RENAL FUNCTION PANEL Lab Routine Chronic kidney disease, unspecified CKD stage Every 3 months for 4 Occurrences starting 05/16/2023 until 05/16/2024 [facility] Work Phone: Comment on above: Every 3 months for 4 Occurrences starting 05/16/2023 until 05/16/2024 End: 05-16-2024 Urinalysis complete panel - Urine URINALYSIS, WITH MICROSCOPIC Lab Routine Chronic kidney disease, unspecified CKD stage Every 3 months for 4 Occurrences starting 05/16/2023 until 05/16/2024 [facility] Work Phone: Comment on above: Every 3 months for 4 Occurrences starting 05/16/2023 until 05/16/2024 End: 06-16-2024 US KIDNEY/BLADDER US KIDNEY/BLADDER Radiology Routine Chronic kidney disease, unspecified CKD stage 1 Occurrences starting 05/16/2023 until 06/16/2024 [facility] Work Phone: Comment on above: 1 Occurrences starti ng 05/16/2023 until 06/16/2024 [facility] Immunizations Immunization Date Immunization Notes Care Provider Fa [facility] 07-26-2021 influenza virus vacc ine, unspecified formulation Jr. Ruiz DO Work Phone: [facility] 01-07-2021 COVID-19 original vaccine, age 12+ yr, monovalent ([employer] - PURPLE TOP) Lyndsay Salgado DO Work Phone: [facility] Work Phone: 12-17-2020 COVID-19 original vaccine, age 12+ yr, monovalent (PFIZER-BION[employer]imatrix - PURPLE TOP) Lyndsay Salgado DO Work Phone: [facility] Work Phone: 11-16-2016 pneumococcal polysaccharide vaccine, 23 valent Lyndsay Salgado DO Work Phone: [facility] Payers Date Payer Category Payer Self-pay [id number] 2023 Unknown [id number] 2021 Commercial Indemnity [facility] [id number] 2021 Private Health Insurance [facility] [id number] 2020 Unknown [id number] 1.13.159.2. 7.3.131681.315 2011 Medicare [id number]. 1.13.159.2. [id number] 1959 Medicare [id number] 2.16.840.1.114906.19 1959 Unknown [id number] 2.16.840.1.974146.19 1946 Unknown [id number] 2.16.840.1.888126.3.579.2. 593 1946 Unknown [id number] 2.16.840.1.335601.3.579.2. 593 1946 Unknown [id number] 2.16.840.1.919981.3.579.2. 593 1946 Unknown [id number] 2.16.840.1.750936.3.579.2. 593 1946 Unknown [id number] 2.16.840.1.072640.3.579.2. 1286 1946 Unknown [id number] 2.16.840.1.929909.3.579.2. 1286 1946 Unknown [id number] 2.16.840.1.317714.3.579.2. 1259 1946 Unknown [id number] 2.16.840.1.678773.3.579.2. 1259 1946 Unknown [id number] 2.16.840.1.747552.3.579.2. 1259 1946 Unknown [id number] 2.16.840.1.420261.3.579.2. 1259 1946 Unknown [id number] 2.16.840.1.352754.3.579.2. 1259 1946 Unknown [id number] 2.16.840.1.268581.3.579.2. 1259 1946 Unknown [id number] 2.16.840.1.360017.3.579.2. 1259 11-1945 Unknown [id number] 2.16.840.1.211680.3.579.2. 1258 1946 Unknown [id number] 2.16.840.1.457020.3.579.2. 1258 1946 Unknown [id number] 2.16.840.1.080780.3.579.2. 1258 1946 Unknown [id number] 2.16.840.1.929053.3.579.2. 1258 1946 Unknown [id number] 2.16.840.1.203150.3.579.2. 1258 1946 Unknown [id number] 2.16.840.1.005611.3.579.2. 1258 1946 Unknown [id number] 2.16.840.1.359423.3.579.2. 1258 1946 Unknown [id number] 2.16.840.1.024057.3.579.2. 1258 1946 Unknown [id number] 2.16.840.1.953491.3.579.2. 1258 1946 Unknown [id number] 2.16.840.1.703572.3.579.2. 1258 1946 Unknown [id number] 2.16.840.1.634577.3.579.2. 1258 1946 Unknown [id number] 2.16.840.1.976362.3.579.2. 1258 1946 Unknown [id number] 2.16.840.1.153708.3.579.2. 1258 1946 Unknown [id number] 2.16.840.1.999865.3.579.2. 1258 1946 Unknown [id number] 2.16.840.1.273462.3.579.2. 1258 1946 Unknown [id number] 2.16.840.1.535555.3.579.2. 9 1946 Unknown [id number] 2.16.840.1.557509.3.579.2. 1258 1946 Unknown [id number] 2.16.840.1.784100.3.579.2. 1258 1946 Unknown [id number] 2.16.840.1.226065.3.579.2. 1258 1946 Unknown [id number] 2.16.840.1.207215.3.579.2. 1258 1946 Unknown [id number] 2.16.840.1.533868.3.579.2. 1258 1946 Unknown [id number] 2.16.840.1.805234.3.579.2. 1258 1946 Unknown [id number] 2.16.840.1.471426.3.579.2. 1258 1946 Unknown [id number] 2.16.840.1.026533.3.579.2. 1258 1946 Unknown [id number] 2.16.840.1.613883.3.579.2. 1259 Unknown [id number] 2.16.840.1.812038.3.579.2. 531 Social History Date Type Detail Facility Unknown if ever smoked [employer] Other Start: 05-16-2023 End: 10-03-2024 Sex Assigned At [facility] Start: 05-16-2023 End: 09-25-2023 Tobacco smoking status NHIS Never smoked tobacco [facility] Start: 05-16-2023 End: 09-25-2023 Tobacco use and exposure Smokeless tobacco non-user [facility] Start: 05-16-2023 End: 10-03-2024 Alcohol intake Current drinker of alcohol (finding) [facility] Start: 05-16-2023 End: 10-03-2024 History of Social function [facility] Start: 09-18-2023 PHQ2 Score 0 [facility] Start: 06-25-2019 Alcohol Comment 2 drinks every other day, maybe 3. beer. [facility] Start: 1945 Sex Assigned At Male [facility] Start: 06-18-2019 Gender identity Identifies as male gender (finding) [facility] Tobacco smoking status NCIS Tobacco smoking consumption [facility] [employer] [facility] Start: 1945 Sex assigned at Not on file [facility] Start: 05-21-2015 Sex Male (finding) [facility] Medical Equipment Procedure Code Equipment Code Equipment Origin al Text Equipment Identifier Dates Nlp-Ip-P-Kind Im plant - [id number] Start: 03-02-2017 Comment on above: Description: CHECK P RICE Humeral Insert S ocket 36 M + 4 [id number] Start: 07-16-2019 Insert Rsp 36mm Standard Socket [employer] Humerus - [id number] Start: 03-02-2017 Stem Altivate Dj o Surgical 12 Standard 108mm Humeral Sterile Shoulder - [id number] Start: 07-16-2019 Baseplate Rsp P2 30mm Glenoid Sterile - [id number] Start: 07-16-2019 Screw Rsp 5mm 18 mm Bone Lock Glenoid Baseplate Shoulder - [id number] Start: 03-02-2017 Screw Rsp 5mm 26 mm Bone Lock Glenoid Baseplate Shoulder - [id number] Start: 07-16-2019 Clinical Notes 12-19-2016 to 10-08-2024 Shirlene Blakely, PT - 10/08/2024 10:15 AM Camryn Blakely, PT - 10/03/2024 10:00 AM Angie Tilley PA - 10/03/2024 8:15 AM Camryn Blakely, PT - 09/23/2024 9:45 AM ESTPatient Instructions Note Date & Type Note Facility 10-08-2024 History of Present illness Narrative Images from the original note were not included. Time In: 10:10 AM Time Out: 10:50 AM Supervised Time: 30 min Total Time: 40 min Visit Number: Steve, Medicare, has used $1321.70 toward Medicare cap Chief Complaint: Z96.652: s/p total knee replacement left G89.18, M25.562: Acute post-operative pain left knee S/p left TKA on 08/22/[address] Ruiz 7 weeks post-op on 10/09/24 Precautions: Total knee precautions Subjective Mechanism of injury: Degenerative, surgery Location of Symptoms: left knee Pain level: minimal pain without use of an AD Objective ROM AAROM: L Knee flexion: 109* L Knee extension: 1* from full extension PROM: L knee flexion: 117* L knee extension: 0 Muscle Strength: L extension: 4+/5 L flexion: 4+/5 L hip flexion: 4+/5 Muscle Length: decreased hamstrings, gastrocnemius and quadriceps LEFS: 56/80 INTERVENTIONS: X 15/10 minutes therapeutic exercises for ROM and strengthening X 15 minutes of manual therapy: passive stretch into flexion PROM; tibial extension mobs Residential Goals: Increase ROM left knee to 0-110* for ease with transfers, steps, gait efficiency. Not MET 2. Improve strength to 4.5/5 - 5/5 all groups left LE for endurance, steps. MET 3. Ambulate without device with equal step time and length. MET 4. Compliant with home exercise program and daily icing. MET 5. 0-2/10 pain with pt able to manage indep. MET PT Assessment: Patient is progressing well toward their goals. Patient reports 99% improvement since SOC. Patient reports seeing Dr. Tilley last week and was pleased with results. States patient should do 2 more weeks of PT. Patient had minimal pain upon arrival and ambulating without an AD. Able to reciprocally ambulate stairs with UE support. Good LE strength. Patient continues to improve ROM. Patient will likely be placed on hold at next session per patient request Plan: Patient to be seen for 1-2 more sessions to improve knee ROM, LE strength and gait mechanics I hereby deem this POC medically necessary. Please sign below and fax back to the number below. Physician Signature: Date: documented in this encounter [facility] 10-03-2024 History of Present illness Narrative Images from the original note were not included. Time In: 9:55 AM Time Out: 10:40 AM Supervised Time: 40 min Total Time: 45 min Visit Number: 9, Medicare, has used $1321.70 toward Medicare cap Chief Complaint: Z96.652: s/p total knee replacement left G89.18, M25.562: Acute post-operative pain left knee S/p left TKA on 08/22/[address] Ruiz 6 weeks post-op on 10/02/24 Precautions: Total knee precautions Subjective Mechanism of injury: Degenerative, surgery Location of Symptoms: left knee Pain level: minimal pain without use of an AD Objective ROM AAROM: L Knee flexion: 107* L Knee extension: 2* from full extension PROM: L knee flexion: 114* L knee extension: 0 INTERVENTIONS: X 25/5 minutes therapeutic exercises for ROM and strengthening X 15 minutes of manual therapy: passive stretch into flexion PROM PT Assessment: Patient reports seeing Dr. Tilley this morning and was pleased with results. States patient should do 2 more weeks of PT. Patient had minimal pain upon arrival and ambulating without an AD. Patient improved AAROM and PROM for left knee flexion today. Needs manual therapy at each session to improve motion. Patient tolerated session well today, assess patients response at next session. Plan: PT 2-3x/weeks x 6 weeks documented in this encounter [facility] 10-03-2024 History of Present illness Narrative Images from the original note were not included. HISTORY OF PRESENT ILLNESS: POST OP PT Amina Lim is an 79 y.o. @ male. (EST PT) S/P (L) TKA 08/22/24 (6WKS). XRAYS DONE TODAY, 10/03/24 IN [facility] DOING WELL. CONTINUES TO HAVE SOME DISCOMFORT - TAKING PERCOCET 1/2 Q 6 HRS ; CONTINUES TO ICE. CONTINUES PHYSICAL THERAPY 2x WEEKLY @ [place] - NOTES INCREASING ROM & STRENGTH. SOME CONTINUED SWELLING. CONTINUES TO TAKE ASA 81MG BID ; WEARING COMPRESSIONS SOCKS REVIEW OF SYSTEMS: General: Denies fever, fatigue or weight loss Lungs: Denies SOB Cardio: Denies chest pain GI: Denies indigestion or abdominal pain Neuro: Denies numbness or tingling, denies new onset paralysis Musculoskeletal: ( see note) PHYSICAL EXAM: Left Knee Exam Left knee exam is normal. Muscle Strength The patient has normal left knee strength. Range of Motion Extension: 0 Left knee flexion: tightness on terminal flexion 112. Tests Varus: negative Valgus: negative Other Erythema: absent Scars: present (Well healing, no erythema) Sensation: normal Pulse: present Swelling: mild Effusion: effusion (consistent with surgery) present Comments: Operative lower extremity was noted to be neurovascularly intact. Patient was able to motor feet, toes and ankles in all anatomic planes bilaterally with 5 out of 5 strength. Operative knee's patellar tracking was optimal and quad/ham strength was 5 out of 5 to operative lower extremity. There was no varus valgus, anterior-posterior, or rotatory instability noted to the operative knee. Swelling was well controlled, patella was not ballotable and compartments were soft to the operative lower extremity. Dorsalis pedis and posterior tibial pulses were present and equal bilaterally. There was no evidence of infection or ascending lymphangitis to operative lower extremity. Sensation to light touch was intact to all dermatomes to bilateral lower extremities. Negative Homans and negative Juan were noted bilaterally to lower extremities. Incision was healing without evidence of infection XR knee 1 or 2 views left Imaging Result: AP and Lateral of left knee: Surgical position and alignment of prosthetic components without evidence of loosening or wear to femora, tibial or patellar components, The alignment appears to be anatomic. No evidence of accelerated or asymmetric wear to tibial tray or patella button. No evidence of fracture or dislocation. Impression: Unremarkable left total knee arthroplasty XR knee 1 or 2 views left Imaging Result: AP and Lateral of left knee: Surgical position and alignment of prosthetic components without evidence of loosening or wear to femora, tibial or patellar components, The alignment appears to be anatomic. No evidence of accelerated or asymmetric wear to tibial tray or patella button. No evidence of fracture or dislocation. Impression: Unremarkable left total knee arthroplasty Procedures Orders Placed This Encounter Procedures XR knee 1 or 2 views left Order Specific Question: Reason for exam: Answer: POST-OP ASSESSMENT: ICD-10-CM 1. S/P TKR (total knee replacement), left Z96.652 2. Acute pain of left knee M25.562 XR knee 1 or 2 views left Assessment & Plan 1. Postoperative status following a left total knee arthroplasty. He is demonstrating satisfactory progress post-surgery, with a gradual improvement in his range of motion, currently at 112 degrees. He is advised to persist with his therapy sessions at a minimum frequency of once per week. This will facilitate the maintenance of his progress as he transitions to an outpatient home exercise regimen, supplemented by SilverSneakers and the use of an exercise bike. PROCEDURE The patient underwent a left total knee arthroplasty. Questions answered in laymen terms at the bedside. The diagnosis, home exercise plan and any ongoing restrictions/ recommendations reviewed. If unable to be reached in office, I recommend evaluation at nearest Emergency Room if any symptoms worsened or new symptoms develop for requiring urgent evaluation. documented in this encounter [facility] 09-23-2024 History of Present illness Narrative Time In: 9:35 AM Time Out: 10:15 AM Supervised Time: 40 min Total Time: 40 min Visit Number: 6, Medicare, has used $1321.70 toward Medicare cap Chief Complaint: Z96.652: s/p total knee replacement left G89.18, M25.562: Acute post-operative pain left knee S/p left TKA on 08/22/[address] Ruiz 5 weeks post-op on 09/25/24 Precautions: Total knee precautions Subjective Mechanism of injury: Degenerative, surgery Location of Symptoms: left knee Pain level: patient notes 5/10 pain. Patient ambulating with SC. Reports the weather is likely affecting it Objective ROM AAROM: L Knee flexion: 91* L Knee extension: 3* from full extension PROM: L knee flexion: 100* INTERVENTIONS: X 30 minutes therapeutic exercises for ROM and strengthening X 10 minutes of manual therapy: tibial extension mobs and knee flexion PROM PT Assessment: Patient reports compliance with HEP 2x per day instead of 3x per day now per PT advisement. Has increased ache today likely due to weather. Reports sleeping well last night. Cues to avoid circumduction during step ups. Added tibial extension mobs to improve extension and knee flexion PROM/stretching. 100 degrees of knee flexion PROM. Needs manual therapy at each session to improve motion. Patient tolerated session well today, assess patients response at next session. Plan: PT 2-3x/weeks x 6 weeks documented in this encounter [facility] 09-16-2024 History of Present illness Narrative Time In: 12:05 pm Time Out: 12:55 Supervised Time: 40 min Total Time: 50 min Visit Number: 4, Medicare, has used $1321.70 toward Medicare cap at [place] Chief Complaint: Z96.652: s/p total knee replacement left G89.18, M25.562: Acute post-operative pain left knee S/p left TKA on 08/22/[address] Ruiz 3 weeks post-op on 09/11/24 Precautions: Total knee precautions Subjective Pain level: 4/10, sore after last treatment. Off pain medication now. Pain radiates: once in a awhile down tibia Timing of pain: intermittent Numbness/tingling: no Objective ROM AAROM: L Knee flexion: 97* L Knee extension: 2* from full extension Muscle Strength: L knee extension: 2.5/5 L knee flexion: 3.0/5 L hip flexion: 3.5/5 L hip abduction: 3.5/5 Palpation: mobile patella moderate swelling Muscle length: WFL Gait: walking with cane Extracurricular Activities: camping, dogs Employment retired 15 years from [employer] INTERVENTIONS: X ( ) manual therapy X 40/10 minutes therapeutic exercises for ROM and strengthening X ( ) minutes modalities: ice PT Assessment: No change in knee flexion/extension today. Did tolerate all exercise well in PT. Ice at home. Plan: PT 2-3x/weeks x 6 weeks documented in this encounter [facility] 09-11-2024 History of Present illness Narrative Time In: 8:45 pm Time Out: 9:45 Supervised Time: 50 min Total Time: 60 min Visit Number: 3, Medicare, has used $1321.70 toward Medicare cap Chief Complaint: Z96.652: s/p total knee replacement left G89.18, M25.562: Acute post-operative pain left knee S/p left TKA on 08/22/[address] Ruiz 3 weeks post-op on 09/11/24 Precautions: Total knee precautions Subjective Mechanism of injury: Degenerative, surgery Location of Symptoms: left knee Pain level: 4/10 , 3.5/5 sore after last treatment Pain radiates: once in a awhile down tibia Timing of pain: intermittent Numbness/tingling: no Objective ROM AAROM: L Knee flexion: 97* L Knee extension: 2* from full extension Muscle Strength: R knee extension: 5/5 R knee flexion: 5/5 R hip flexion: 5/5 R hip abduction: 5/5 L knee extension: 2.5/5 L knee flexion: 3.0/5 L hip flexion:3.5/5 L hip abduction: 3/5 Palpation: mobile patella moderate swelling Muscle length: WFL Special Tests: Gait: walking with cane Prior Level of Function: Ambulation: Indep walker, then cane ADLs: indep Extracurricular Activities: camping, dogs Employment retired 15 years from [employer] INTERVENTIONS: X 20 minutes of manual therapy to increase ROM X 30 minutes therapeutic exercises for ROM and strengthening X 10 minutes modalities: ice PT Assessment: Therapy Diagnosis: s/p left TKA with weaknessk swelling and pain [employer]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 Improve strength to 4.5/5 - 5/5 all groups left LE for endurance, steps 3. Ambulate without device with equal step time and length 4. Compliant with home exercise program and daily icing 5. 0-2/10 pain with pt able to manage indep. Assessment: improved knee flexion and extension after manual therapy. Pt states it took 1 1/2 day to recover. Off medication now. Plan: PT 2-3x/weeks x 6 weeks Treatment: There ex, neuro-jarrod, gait training as needed, modalities as needed I hereby deem this POC medically necessary. Please sign below and fax back to the number below. Physician Signature: Date: documented in this encounter [facility] 09-09-2024 History of Present illness Narrative Time In: 5:30 pm Time Out: 6:20 pm Supervised Time: 50 min Total Time: 50 min Evaluation Time: 20 min Visit Number: 1, Medicare, has used $1321.70 toward Medicare cap Chief Complaint: Z96.652: s/p total knee replacement left G89.18, M25.562: Acute post-operative pain left knee S/p left TKA on 08/22/[address] Ruiz 2 weeks post-op on 09/05/24 Precautions: Total knee precautions Subjective Mechanism of injury: Degenerative, surgery Location of Symptoms: left knee Pain level: 4/10 What increases symptoms: initial stepping after rest What decreases symptoms: rest, light activity Pain radiates: once in a awhile down tibia Timing of pain: intermittent Numbness/tingling: no Objective ROM AAROM: L Knee flexion: 88* L Knee extension: 6* from full extension Muscle Strength: R knee extension: 5/5 R knee flexion: 5/5 R hip flexion: 5/5 R hip abduction: 5/5 L knee extension: 2.5/5 L knee flexion: 3.0/5 L hip flexion:3.5/5 L hip abduction: 3/5 Palpation: mobile patella moderate swelling Muscle length: WFL Special Tests: Gait: walking with cane Prior Level of Function: Ambulation: Indep walker, then cane ADLs: indep Extracurricular Activities: camping, dogs Employment retired 15 years from [employer] INTERVENTIONS: X 30 minutes therapeutic exercises for ROM and strengthening X minutes modalities: ice, e-stim prn PT Assessment: Therapy Diagnosis: 2. 5 weeks post op left TKA Functional Limitations: Residential Goals: Increase ROM left knee to 0-110* for ease with transfers, steps, gait efficiency 2. Improve strength to 4.5/5 - 5/5 all groups left LE for endurance, steps 3. Ambulate without device with equal step time and length 4. Compliant with home exercise program and daily icing 5. 0-2/10 pain with pt able to manage indep. Rehab Potential: Good Plan: PT 2-3x/weeks x 6 weeks Treatment: There ex, neuro-jarrod, gait training as needed, modalities as needed I hereby deem this POC medically necessary. Please sign below and fax back to the number below. Physician Signature: Date: documented in this encounter [facility] 09-05-2024 History of Present illness Narrative Images from the original note were not included. HISTORY OF PRESENT ILLNESS: POST OP PT Amina Lim is an 79 y.o. @ male. (EST PT) 1ST P/O (L) TKA 08/22/24 (2WKS). DOING WELL - NOTES MINIMAL DISCOMFORT ; MUCH WORSE HS - TAKING PERCOCET 1/2 TAB - SOME RELIEF. CONTINUES THERAPY @ HOME W/ NOM, WITH HEP - STARTING OUTPT THERAPY NEXT WEEK @ [facility]. NOTES INCREASING ROM & STRENGTH - USING CANE TO AMBULATE. SOME SWELLING - ICES / ELEVATES. VASQUEZ INTACT, REMOVED. NO S/S OF INFECTION. TAKING ASA 81MG BID ; WEARING COMPRESSIONS SOCKS REVIEW OF SYSTEMS: General: Denies fever, fatigue or weight loss Lungs: Denies SOB Cardio: Denies chest pain GI: Denies indigestion or abdominal pain Neuro: Denies numbness or tingling, denies new onset paralysis Musculoskeletal: ( see note) PHYSICAL EXAM: Left Ankle Exam Range of Motion Dorsiflexion: normal Plantar flexion: normal Muscle Strength Dorsiflexion: 5/5 Plantar flexion: 5/5 Left Knee Exam Muscle Strength The patient has normal left knee strength. Tenderness Left knee tenderness location: Compartments soft, expected soreness medial and lateral knee. Range of Motion Extension: 0 Left knee flexion: tightness on terminal flexion 105. Tests Varus: negative Valgus: negative Other Erythema: absent Scars: present (Y[place] present, removed, no dehiscence or drainage) Sensation: normal Pulse: present Swelling: mild Effusion: effusion (consistent with surgery) present Comments: Operative lower extremity was noted to be neurovascularly intact. Patient was able to motor feet, toes and ankles in all anatomic planes bilaterally with 5 out of 5 strength. Operative knee's patellar tracking was optimal and quad/ham strength was 5 out of 5 to operative lower extremity. There was no varus valgus, anterior-posterior, or rotatory instability noted to the operative knee. Swelling was well controlled, patella was not ballotable and compartments were soft to the operative lower extremity. Dorsalis pedis and posterior tibial pulses were present and equal bilaterally. There was no evidence of infection or ascending lymphangitis to operative lower extremity. Sensation to light touch was intact to all dermatomes to bilateral lower extremities. Negative Homans and negative Juan were noted bilaterally to lower extremities. Incision was healing without evidence of infection Procedures No orders of the defined types were placed in this encounter. ASSESSMENT: ICD-10-CM 1. S/P TKR (total knee replacement), left Z96.652 2. Post-operative pain G89.18 HYDROcodone-acetaminophen ([place]) 5-325 MG tablet PLAN: Assessment & Plan 1. Status post left total knee arthroplasty. She is very pleased with her progress and has excellent range of motion. Plans to transition to outpatient therapy using a cane for balance. She is requesting a refill on pain medicines for therapy but is tapering down on use at night. Medication safety was discussed and the refill was sent to the pharmacy. Follow-up Return in 4 weeks with x-ray. Questions answered in laymen terms at the bedside. The diagnosis, home exercise plan and any ongoing restrictions/ recommendations reviewed. If unable to be reached in office, I recommend evaluation at nearest Emergency Room if any symptoms worsened or new symptoms develop for requiring urgent evaluation. documented in this encounter [facility] 09-05-2024 Instructions LORELEI Soto - 09/05/2024 10:30 AM EST Discussed Surgery: Cont Asprin 81 mg twice daily and brady hose for additional 2 wks ( 4 wks post op) Discuss transition to outpatient therapy with your therapist. ( Bicycle Machine) Recommend static flexion and extension stretch for 10 minutes 3 times a day. Make time for ice and elevation after therapy and periods of increased activity. Follow up in 4 weeks with Xray's in office. No submerging wound pending recheck. documented in this encounter [facility] 08-29-2024 Telephone encounter Note Patient home PT notified us of need for post op pain rx refill. PDMP reviewed. [facility] 08-29-2024 Miscellaneous Notes Patient home PT notified us of need for post op pain rx refill. PDMP reviewed. documented in this encounter [facility] 08-21-2024 Telephone encounter Note Post op pain rx. PDMP reviewed [facility] 08-21-2024 Miscellaneous Notes Post op pain rx. PDMP reviewed documented in this encounter [facility] 08-14-2024 Telephone encounter Note Acknowledged, thank you. [facility] 08-14-2024 Miscellaneous Notes Acknowledged, thank you. Patient left vm to let us know he has been approved through medicare to have his LT TKA done on 08/22 with . documented in this encounter [facility] 08-14-2024 Telephone encounter Note Patient left vm to let us know he has been approved through medicare to have his LT TKA done on 08/22 with . T [facility] 08-14-2024 Note XR BONE LENGTH STUDY Bone length evaluation History: Osteoarthritis, limb length and alignment, knee pain Comparison: None Findings: Standing frontal view of the bilateral lower extremities obtained from the iliac crest through the feet for limb length and alignment without marker device. Impression: Severe Arthritis, osteophytes, joint space narrowing Left knee shows [id number] medial compartment arthritis with varus angulation measuring 4 degrees. Appropriate alignment of the right femoral-tibial angle with 2 degrees valgus and a unremarkable prosthesis of the knee Finalized by Micheal Johnson MD on 08/14/2024 5:58 AM [facility] 08-13-2024 History of Present illness Narrative Images from the original note were not included. GENERAL HISTORY AND PHYSICAL: NAME: Amina Lim : 1945 HISTORY OF PRESENT ILLNESS: Amina Lim is an 79 y.o. @ male. Here for surgery instructions - (L) TKA 08/22/2024 @[facility] PAST MEDICAL HISTORY: Past Medical History: Diagnosis Date Abnormal ECG Cancer (CMS/HCC) HX: Prostate Chronic kidney disease Hypertension (CMS/HCC) Prostate cancer (CMS/HCC) PAST SURGICAL HISTORY: Past Surgical History: Procedure Laterality Date APPENDECTOMY CATARACT EXTRACTION REVERSE TOTAL SHOULDER ARTHROPLASTY Left DR BINGHAM REVERSE TOTAL SHOULDER ARTHROPLASTY Right DR THOMAS TOTAL KNEE ARTHROPLASTY Right 04/04/2024 DR RUIZ SOCIAL HISTORY: Social History Occupational History Not on file Tobacco Use Smoking status: Never Smokeless tobacco: Never Substance and Sexual Activity Alcohol use: Yes Drug use: Never Sexual activity: Not on file ALLERGIES: Allergies Allergen Reactions Other Other DENIES METAL ALLERGY Percocet [Oxycodone-Acetaminophen] Other DIFFICULTY SLEEPING MEDICATIONS: Current Outpatient Medications Medication Instructions Chlorhexidine Gluconate (Hibiclens) 4 % solution 1 Dose, Apply externally, Once, As directed night before surgery diclofenac (Voltaren) 0.1 % ophthalmic solution 1 drop, 4 times daily FeroSul 325 (65 Fe) MG tablet 1 tablet, Oral, 2 times daily irbesartan (Avapro) 150 MG tablet Every 24 hours Iron Polysacch [id number] (Poly-Iron 150 Forte) 150-0.025-1 MG capsule 1 tablet, Oral, Daily spironolactone (ALDACTONE) 50 mg, Oral, Daily RT tamsulosin (Flomax) 0.4 MG 24 hr capsule triamcinolone (Kenalog) 0.1 % cream Topical, 2 times daily REVIEW OF SYSTEMS: Review of Systems Constitutional: Negative for fatigue, fever and unexpected weight change. Eyes: Negative for redness and visual disturbance. Gastrointestinal: Negative for abdominal pain. Denies Indigestion Musculoskeletal: See note: Skin: Positive for rash (Itchy to medial proximal thigh, Rash right lateral knee.). Negative for color change. Neurological: Negative for light-headedness and numbness. Vitals: Body mass index is 29.96 kg/m . PHYSICAL EXAM: Physical Exam Constitutional: General: He is not in acute distress. Appearance: Normal appearance. HENT: Head: Normocephalic and atraumatic. Right Ear: External ear normal. Left Ear: External ear normal. Nose: Nose normal. No rhinorrhea. Mouth/Throat: Mouth: Mucous membranes are moist. Dentition: No gingival swelling or dental abscesses. Pharynx: Oropharynx is clear. No pharyngeal swelling or posterior oropharyngeal erythema. Eyes: Extraocular Movements: Extraocular movements intact. Conjunctiva/sclera: Conjunctivae normal. Cardiovascular: Rate and Rhythm: Normal rate and regular rhythm. Pulses: Normal pulses. Heart sounds: Normal heart sounds. No murmur heard. Pulmonary: Effort: Pulmonary effort is normal. No respiratory distress. Breath sounds: Normal breath sounds. No wheezing or rhonchi. Abdominal: Palpations: Abdomen is soft. Tenderness: There is no abdominal tenderness. Musculoskeletal: Cervical back: Normal range of motion and neck supple. Lymphadenopathy: Cervical: No cervical adenopathy. Skin: General: Skin is warm and dry. Findings: Rash present. No erythema. Comments: Right lateral knee and quarter size area medial left proximal thigh noted for dry skin with erythematous border, mildly raised. Clinical concern for eczema . Neurological: General: No focal deficit present. Mental Status: He is alert and oriented to person, place, and time. Psychiatric: Mood and Affect: Mood normal. Behavior: Behavior normal. Orders Placed This Encounter Procedures Urine culture Standing Status: Future Number of Occurrences: 1 Standing Expiration Date: 08/09/2025 Order Specific Question: Print requisition? Answer: No XR lower extremity leg length evaluation Standing Status: Future Standing Expiration Date: 08/09/2025 Order Specific Question: Reason for exam: Answer: PREOP (L) TKA ; NO MEASUREMENTS NEEDED APTT Standing Status: Future Number of Occurrences: 1 Standing Expiration Date: 08/09/2025 Order Specific Question: Print requisition? Answer: No Protime-INR Standing Status: Future Number of Occurrences: 1 Standing Expiration Date: 08/09/2025 Order Specific Question: Print requisition? Answer: No CBC auto differential Standing Status: Future Number of Occurrences: 1 Standing Expiration Date: 08/09/2025 Order Specific Question: Print requisition? Answer: No Comprehensive metabolic panel Standing Status: Future Number of Occurrences: 1 Standing Expiration Date: 08/09/2025 Order Specific Question: Print requisition? Answer: No Urinalysis with reflex microscopic Standing Status: Future Number of Occurrences: 1 Standing Expiration Date: 08/09/2025 Order Specific Question: Print requisition? Answer: No Ambulatory referral to Physical Therapy Home therapy for (L) TKA 08/22/24 with PAT visit and Face Sheet. Standing Status: Future Standing Expiration Date: 02/11/2025 Referral Priority: Routine Referral Type: Rehabilitation - Outpatient Referral Reason: Specialty Services Required Referral Location: [facility] Requested Specialty: Physical Therapy Number of Visits Requested: 1 ASSESSMENT: ICD-10-CM 1. Preop examination Z01.818 APTT Protime-INR CBC auto differential Comprehensive metabolic panel Urinalysis with reflex microscopic Urine culture XR lower extremity leg length evaluation APTT Protime-INR CBC auto differential Comprehensive metabolic panel Urinalysis with reflex microscopic Urine culture Ambulatory referral to Physical Therapy Iron Polysacch [id number] (Poly-Iron 150 Forte) 150-0.025-1 MG capsule Chlorhexidine Gluconate (Hibiclens) 4 % solution 2. Primary osteoarthritis of left knee M17.12 Ambulatory referral to Physical Therapy Iron Polysacch [id number] (Poly-Iron 150 Forte) 150-0.025-1 MG capsule Chlorhexidine Gluconate (Hibiclens) 4 % solution 3. Eczema, unspecified type L30.9 triamcinolone (Kenalog) 0.1 % cream PLAN: This patient presents for preadmission testing for upcoming surgery. Complete history with medical, surgery, and current allergy and medication list obtained. Consent for surgery signed and witnessed after verbal consent to perform surgery received. All questions answered and proposed surgery scheduled. Discussed rash to right lateral knee and now left medial thigh, will trial topical steroid,, pt may need derm referral if not improving.. (L) TKA 08/22 @[facility]ENT[facility] INSTRUCTIONS GIVEN TODAY 08/13 @1PM - PAWEL BULLOCK CLEARANCE 08/19 @11:15AM [facility] NOTIFIED NO PREOP PAYMENT / PRECERT ; MEDICARE Follow up for 09/05/24 @ 10:30AM - Bret fernando/ Dick. documented in this encounter [facility] 08-07-2024 History of Present illness Narrative Images from the original note were not included. HISTORY OF PRESENT ILLNESS: EST PT Amina Lim is an 79 y.o. @ male. (R) KNEE (EST PT) S/P (R) TKA 04/04/24 (17WKS 6DAYS) XRAYS, 05/15/24 IN [facility] NO MDP / PREDNISONE FINISHED THERAPY (10 SESSIONS) @ [facility] NO PAIN MGMT DOING WELL. CONTINUES HEP / RECUMBENT BIKE - NOTES GOOD ROM ; DENIES ANY WEAKNESS. DENIES ANY SWELLING. STATES HE IS VERY PLEASED WITH SURGERY. CONTINUES TO USE VOLTAREN GEL. (L) KNEE (EST PT) RECHECK (L) KNEE ; HERE TO DISCUSS SURGICAL OPTIONS XRAYS, STANDING AP 05/15/24 IN [facility] NO MRI NO MDP / PREDNISONE NO CORTISONE INJ NO PHYSICAL THERAPY NO PAIN MGMT CONTINUES TO HAVE INTERMITTENT, DIFFUSE - WORSE AFTER PROLONGED ACTIVITY. NOTES GOOD ROM ; SOME WEAKNESS. DENIES ANY SWELLING. TAKING TYLENOL / VOLTAREN GEL. CONTINUES HEP. ALLERGIES: No Known Allergies HOME MEDICATIONS: Current Outpatient Medications Medication Instructions diclofenac (Voltaren) 0.1 % ophthalmic solution 1 drop, 4 times daily FeroSul 325 (65 Fe) MG tablet 1 tablet, Oral, 2 times daily irbesartan (Avapro) 150 MG tablet Every 24 hours spironolactone (ALDACTONE) 50 mg, Oral, Daily RT tamsulosin (Flomax) 0.4 MG 24 hr capsule PHYSICAL EXAM: Knee Musculoskeletal Exam Gait Gait is normal. Antalgic: left Limp: left Inspection Leg length disparity: no discrepancy Right Erythema: none Effusion: none Edema: none Ecchymosis: none Deformity: none Alignment: normal Previous incision: anterolateral Incision: well-healed Left Erythema: none Effusion: moderate Edema: mild Ecchymosis: none Deformity: mild Alignment: varus Previous incision: no previous incision Palpation Right Right knee palpation is unremarkable. Increased warmth: none Masses: none Tenderness: none Left Increased warmth: none Masses: none Crepitus: patellofemoral and medial Tenderness: present Medial joint line: moderate Patella: mild Range of Motion Right Right knee range of motion is normal and full. Active extension: 0 Active flexion: 120 Left Active extension: 0 Left knee active flexion: 118. Strength Right Right knee strength is normal. Extension: 5/5. Flexion: 5/5. Left Extension: 5/5. Flexion: 5/5. Instability Right Instability signs: none - stable Varus stress grade: normal Valgus stress grade: normal Left Instability signs: none - stable Varus stress grade: normal Valgus stress grade: normal Pivot shift: normal Anterior drawer: normal Posterior drawer: normal Dial test: normal Quad active test: normal Medial Carter test: negative Lateral Carter test: negative Vualdo: negative Neurovascular Right Right knee neurovascular exam is normal. Pulses - PT: normal Posterior tibial: 2+ Capillary refill: warm and well-perfused Left Left knee neurovascular exam is normal. Patella reflex: 2/4 Pulses - DP: normal Dorsalis pedis: 2+ Pulses - PT: normal Posterior tibial: 2+ Capillary refill: brisk Special Signs Right Right knee special signs are normal. Patellar apprehension: none Left Patellar compression: moderate Patellar apprehension: none Vitals: There is no height or weight on file to calculate BMI. Tobacco Use: Low Risk (08/07/2024) Patient History Smoking Tobacco Use: Never Smokeless Tobacco Use: Never Passive Exposure: Not on file Alcohol Use: Not on file IMAGING: Procedures No orders of the defined types were placed in this encounter. ASSESSMENT: ICD-10-CM 1. Acute pain of right knee M25.561 2. History of right knee joint replacement Z96.651 3. Primary osteoarthritis of left knee M17.12 PLAN: We have answered all the patients questions and explained the patients condition, decision making and plan including the risks and benefits associated with said plan in layman''s terms in a language the patient could understand easily. If patient''s symptoms significantly worsen and they cannot get a hold of us or their family physician, we have recommended that the patient proceed to the nearest emergency department (room). Dr. Ruiz obtained history and examined the patient, I am acting as scribe for Dr. Ruiz/raissa, PLAN: Patient is pleased with his right knee progress as he admits his right knee is better now than it was prior to sx. We have reviewed prior (L) knee xrays. After examination of his left knee today we have discussed both surgical and nonsurgical intervention, with the risks and benefits of both. Patient is requesting a (L) TKA as the pain is affecting his Adl's - unable to ambulate prolong period of time. We have discussed his HEP and restrictions and will see him back on the day of sx. Surgery - (L) TKA We have discussed both surgical and nonsurgical treatment options with the patient at length and the risks and benefits associated with both. The patient is requesting surgical intervention because they have not responded to outpatient treatment options including but not limited to rest ice, and home exercise program. Pain and decreased range of motion are affecting the patient''s ability to sleep and activities of daily living and we have recommended surgical intervention. We recommended surgery in the form of a total knee arthroplasty. Factors, including the patient's age and longevity of prosthesis, usual postop course and possible need for revision in the future were discussed at length. We have discussed with the patient that this is a major orthopedic procedure. We discussed that the patient may require more than the average 30 MED limit and may require greater than 7 days narcotic treatment postoperatively. Therefore, patient's narcotic usage, will be tailored on an individual basis. If this patient at the time of surgery has any of the following comorbidities including but not limited to, history of falling, cognitive impairment, BMI greater than 30, end-stage renal disease, respiratory failure, heart failure, kidney failure, liver failure, diabetes, cardiac event in the last year, sleep apnea, bleeding disorder, excessive tobacco use, or if at the time of surgery the patient is greater than 80 years old, or requires discharged to a penitentiary facility, the patient may require to have additional inpatient hospital stay following the surgery. Physical therapy is contraindicated in this patient's case because of [id number] articulation of the patient's knee. El Ruiz D.O. documented in this encounter [facility] 06-26-2024 History of Present illness Narrative Images from the original note were not included. HISTORY OF PRESENT ILLNESS: EST PT Amina Lim is an 79 y.o. @ male. (R) KNEE (EST PT ; LAST APPT W/ [facility]) S/P (R) TKA 04/04/24 (11WKS 6DAYS) XRAYS, 05/15/24 IN [facility] NO MDP / PREDNISONE FINISHED THERAPY (10 SESSIONS) @ [facility] NO PAIN MGMT CONTINUES TO HAVE SOME DISCOMFORT - RATES 4-5/10 ON PAIN SCALE ; WORSE WITH PROLONGED ACTIVITY. FINISHED PHYSICAL THERAPY @ [facility], CONTINUES HEP - NOTES INCREASING ROM & STRENGTH ; AMBULATES W/O AID. SOME SWELLING - NO LONGER ICING / ELEVATING. NOTES DIFFICULTY SLEEPING / WAKES HS. USING VOLTAREN GEL ; TAKING TYLENOL. (L) KNEE (EST PT ; LAST APPT W/ [facility]) NEW COMPLAINT, (L) KNEE DISCOMFORT. SYMPTOMS FOR MANY YEARS, WORSE SINCE HAVING (R) TKA / HAVING TO COMPENSATE XRAYS, STANDING AP 05/15/24 IN [facility] NO MRI NO MDP / PREDNISONE NO CORTISONE INJ NO PHYSICAL THERAPY NO PAIN MGMT PAIN IS INTERMITTENT, DIFFUSE. NOTES GOOD ROM ; DENIES ANY INSTABILITY / WEAKNESS. DENIES ANY SWELLING. TAKING TYLENOL / VOLTAREN GEL. CONTINUES HEP / STATIONARY BIKE. ALLERGIES: No Known Allergies HOME MEDICATIONS: Current Outpatient Medications Medication Instructions FeroSul 325 (65 Fe) MG tablet 1 tablet, Oral, 2 times daily irbesartan (Avapro) 150 MG tablet Every 24 hours spironolactone (ALDACTONE) 50 mg, Oral, Daily RT tamsulosin (Flomax) 0.4 MG 24 hr capsule PHYSICAL EXAM: Knee Musculoskeletal Exam Gait Gait is normal. Antalgic: left Limp: left Inspection Leg length disparity: no discrepancy Right Erythema: none Effusion: none Edema: none Ecchymosis: none Deformity: none Alignment: normal Previous incision: anterolateral Incision: well-healed Left Erythema: none Effusion: moderate Edema: mild Ecchymosis: none Deformity: mild Alignment: varus Previous incision: no previous incision Palpation Right Right knee palpation is unremarkable. Increased warmth: none Masses: none Tenderness: none Left Increased warmth: none Masses: none Crepitus: patellofemoral and medial Tenderness: present Medial joint line: moderate Patella: mild Range of Motion Right Right knee range of motion is normal. Active extension: 5 Active flexion: 105 Left Active extension: 5 Active flexion: 115 Strength Right Right knee strength is normal. Extension: 5/5. Flexion: 5/5. Left Extension: 5/5. Flexion: 5/5. Instability Right Instability signs: none - stable Varus stress grade: normal Valgus stress grade: normal Left Instability signs: none - stable Varus stress grade: normal Valgus stress grade: normal Pivot shift: normal Anterior drawer: normal Posterior drawer: normal Dial test: normal Quad active test: normal Medial Carter test: negative Lateral Carter test: negative Uvaldo: negative Neurovascular Right Right knee neurovascular exam is normal. Pulses - PT: normal Posterior tibial: 2+ Capillary refill: warm and well-perfused Left Left knee neurovascular exam is normal. Patella reflex: 2/4 Pulses - DP: normal Dorsalis pedis: 2+ Pulses - PT: normal Posterior tibial: 2+ Capillary refill: brisk Special Signs Right Right knee special signs are normal. Patellar apprehension: none Left Patellar compression: moderate Patellar apprehension: none Vitals: There is no height or weight on file to calculate BMI. Tobacco Use: Low Risk (06/26/2024) Patient History Smoking Tobacco Use: Never Smokeless Tobacco Use: Never Passive Exposure: Not on file Alcohol Use: Not on file IMAGING: Procedures No orders of the defined types were placed in this encounter. ASSESSMENT: ICD-10-CM 1. S/P TKR (total knee replacement), right Z96.651 2. Primary osteoarthritis of left knee M17.12 PLAN: We have answered all the patients questions and explained the patients condition, decision making and plan including the risks and benefits associated with said plan in layman''s terms in a language the patient could understand easily. If patient''s symptoms significantly worsen and they cannot get a hold of us or their family physician, we have recommended that the patient proceed to the nearest emergency department (room). Dr. Ruiz obtained history and examined the patient, I am acting as scribe for Dr. Ruiz/raissa, PLAN: Patient is pleased with his right knee progress as he admits his right knee is better now than it was prior to sx. He is refusing a referral to PT as he feels that he can do better at home on his own. We have discussed his HEP and restrictions and will see him back in 6 weeks to reassess his right knee, patient would also like to further discuss possibility of a (L) TKA in September at follow up. El Ruiz D.O. documented in this encounter [facility] 11-14-2023 Note [facility] Consult Note Reason [...] , HDL , (more content not included)... [facility] 11-14-2023 Note Patient here for [...] All other systems reviewed and are negative. [facility] 10-02-2023 Note Patient here for 2 m o follow up SVT and hypertension. Had routine labs a week ago. Staying very active. Walked 1 mile today. Denies chest pain and SOB. Review of Systems Neurological: Positive for vertigo. Psychiatric/Behavioral: The patient is nervous/anxious. All other systems reviewed and are negative. [facility] 10-02-2023 Note [facility] Consult [...] Coronary angiogram: @C (more content not included)... [facility] 08-08-2023 Note [facility] Consult [...] I would brower (more content not included)... [facility] 06-21-2023 Note -episodes of SVT on holter -they appear like atach -30d monitor [facility] 06-21-2023 Note -no BB d/t bradycard ia at baseline -stress test to rule out cad [facility] 06-21-2023 Note -ct statin [facility] 06-21-2023 Note -cr 1.47, gfr 49 as of 05/2023 -sees nephrology [facility] 06-21-2023 Note Patient states he wa s told he has a heart mumur -no obvious murmur heard on exam, will order echo to rule out structural/valvular abnormalities [facility] 06-21-2023 Note - asymptomatic - 30-day event monitor to rule out significant bradycardia/AV blocks -treadmill stress for NSVT and to rule out chronotropic incompetence [facility] 06-21-2023 Note - stable, [facility] New patient here to establish care. Ref from Dr. Bullock for bradycardia. Wore Holter monitor recently. Sees [facility] nephrology for CKD. Has never seen cardiology before. He denies chest pain, SOB, and palpitations. Review of Systems All other systems reviewed and are negative. [facility] 06-06-2023 Note [facility] Consult Note Reason for visit: new pt, bradycardia, nsvt on holter HPI: Amina Lim is a 78 y.o. year old with past medical history of chronic back pain, BPH, monoclonal gammopathy, kidney stones, hypertension, hyperlipidemia, bradycardia, ckd. He is a patient of Dr. Bullock. He was seeing his customs inspector due to history of CKD which they [...] no thoracic deformity (more content not included)... [facility] 05-24-2023 Note Patient Outreach (MANUELA TNAV) AMINA LIM ([id number]) 1945 M Date Time Provider Department 05/24/23 [...] 1 tablet by mouth once daily. - Deipe-7-LAN-EPA-Fish Oil (FISH OIL) 1,000 mg (120 mg-180 mg) cap Take 1 g by mouth once daily. - lovastatin (MEVACOR) 20 mg tablet Take 20 mg by mouth daily at bedtime. - multivitamin (MULTIPLE VITAMINS) tablet Take 1 tablet by mouth once daily. - Saw [place] 160 mg capsule Take 160 mg by [...] Encounter Status:Closed by RAOUL ROLDAN on 06/26/[address] [facility] 05-24-2023 Note Patient Outreach (MANUELA ALCALA) AMINA LIM ([id number]) 1945 M Date Time Provider Department 05/24/23 NO PCP MAGALY During your visit today, we recorded the following information about you: Emily Mercado 06/26/2023 3:01 AM Signed POPULATION HEALTH NAVIGATION OUTREACH Action/[facility] [place] Support: Called pt to schedule an appt [...] 1 tablet by mouth once daily. - Lcaaq-3-IPQ-EPA-Fish Oil (FISH OIL) 1,000 mg (120 mg-180 mg) cap Take 1 g by mouth once daily. - lovastatin (MEVACOR) 20 mg tablet Take 20 mg by mouth daily at bedtime. - multivitamin (MULTIPLE VITAMINS) tablet Take 1 tablet by mouth once daily. - Saw [place] 160 mg capsule Take 160 mg by [...] Encounter Status:Closed by RAOUL ROLDAN on 06/26/[address] [facility] 05-24-2023 Note HNO ID: [id number] Author: Emily Mercado Service: ? Author Type: ? Type: Progress Notes Filed: 06/26/2023 3:01 AM Note Text: POPULATION HEALTH NAVIGATION OUTREACH Action/[facility] [place] Support: Called pt to schedule an appt [...] Emily Evans May 24, 2023 9:[address] [facility] 05-24-2023 History of Present illness Narrative POPULATION HEALTH NAVIGATION OUTREACH Action/[facility] [place] Support: Called pt to schedule an appt [...] 2023 9:52 AM documented in this encounter [facility] 05-16-2023 Note HNO ID: [id number] Author: Lyndsay Salgado, DO Service: ? Author Type: Physician Type: Progress Notes Filed: 05/16/2023 10:07 AM Note Text: [facility] SERVICE DATE: [...] that he was previously following with a customs inspector that went over his labs every visit. States that his renal function was worsening and he was taken off a water pill that improved his renal function. His customs inspector stopped seeing patients in the office and [...] Take 1 tablet by mouth once daily. Hudsd-3-IBS-EPA-Fish Oil (FISH OIL) 1,000 mg (120 mg-180 mg) cap Take 1 g by mouth once daily. Lecithin 1,200 mg cap Take 1 capsule by mouth once daily. lovastatin (MEVACOR) 20 mg tablet Take 20 mg by mouth daily at bedtime. multivitamin (MULTIPLE VITAMINS) tablet Take 1 tablet by mouth once daily. [place] 160 mg capsule Take 160 mg by [...] Psychiatric: No depr (more content not included)... [facility] 05-16-2023 Instructions Lyndsay Salgado, - 05/16/2023 9:50 AM EDT Your renal [...] have your physicians fax over your records [phone] Make an appointment with cardiology for slow [...] be greatly appreciated. documented in this encounter [facility] 05-16-2023 History of Present illness Narrative [facility] SERVICE DATE: [...] that he was previously following with a customs inspector that went over his labs every visit. States that his renal function was worsening and he was taken off a water pill that improved his renal function. His customs inspector stopped seeing patients in the office and [...] Take 1 tablet by mouth once daily. Alpln-8-TVL-EPA-Fish Oil (FISH OIL) 1,000 mg (120 mg-180 mg) cap Take 1 g by mouth once daily. Lecithin 1,200 mg cap Take 1 capsule by mouth once daily. lovastatin (MEVACOR) 20 mg tablet Take 20 mg by mouth daily at bedtime. multivitamin (MULTIPLE VITAMINS) tablet Take 1 tablet by mouth once daily. Saw [place] 160 mg capsule Take 160 mg by [...] 16, 2023 TIME: 10:06 AM OFFICE NUMBER: [phone] CC: REFERRING PROVIDER: Narciso Bullock MD PRIMARY CARE PHYSICIAN: Narciso Bullock MD documented in this encounter [facility] 09-06-2022 Evaluation note Encounter Date Diagnosis [...] Dr. Bullock for NSAIDs alternative like Tramadol [employer] Other 12-08-2021 Evaluation note* Encounter Date Diagnosis [...] He did try Tylenol with no effect. [employer] Other [id number] History of Past illness Narrative* Problem Noted Date Diagnosed Date Resolved Date Primary osteoarthritis of left shoulder 12/19/2016 06/25/2019 Prostate cancer 07/05/2016 06/25/2019 Peyronie's disease 07/08/2009 9 documented as of this encounter (statuses as of 05/16/2023) [facility]03-[facility]-2017 History of Past illness Narrative* Problem Noted Date Diagnosed Date Resolved Date Primary osteoarthritis of left shoulder 12/19/2016 06/25/2019 Prostate cancer 07/05/2016 06/25/2019 Peyronie's disease 07/08/2009 9 documented as of this encounter (statuses as of 06/26/2023) [facility] note* Diagnosis Chronic kidney disease, unspecified CKD stage- Primary Bradycardia Other specified cardiac dysrhythmias Generalized pain Anemia of renal disease Anemia in chronic kidney disease Primary hypertension Unspecified essential hypertension [facility] noteNo assessment information availableSelect [facility] Work Phone: Evaluation note* Diagnosis Acute pain of right knee- Primary History of right knee joint replacement Primary osteoarthritis of left knee documented in this encounter [facility]* Diagnosis Encounter for other preprocedural examination documented in this encounter [facility]* Diagnosis Encounter for other preprocedural examination documented in this encounter [facility]* Diagnosis Preop examination- Primary Unspecified pre-operative examination Primary osteoarthritis of left knee Eczema, unspecified type documented in this encounter [facility]* Diagnosis Post-operative pain- Primary Other acute postoperative pain documented in this encounter [facility]* Diagnosis S/P TKR (total knee replacement), left- Primary Post-operative pain Other acute postoperative pain documented [facility]* Diagnosis Post-operative pain Other acute postoperative pain documented [facility]* Diagnosis S/P total knee replacement, left- Primary Acute postoperative pain of left knee documented [facility]* Diagnosis S/P total knee replacement, left- Primary Acute postoperative pain of left knee documented [facility]* Diagnosis S/P total knee replacement, left- Primary Acute postoperative pain of left knee S/P total knee replacement, left- Primary Acute postoperative pain of left knee documented [facility]* Diagnosis S/P total knee replacement, left- Primary Acute postoperative pain of left knee documented [facility]* Diagnosis S/P TKR (total knee replacement), right- Primary Primary osteoarthritis of left knee documented in this encounter [facility]* Diagnosis Acute postoperative pain of left knee- Primary S/P total knee replacement, left documented [facility]* Diagnosis Acute postoperative pain of left knee- Primary S/P total knee replacement, left documented [facility]* Diagnosis Acute postoperative pain of left knee- Primary S/P total knee replacement, left documented in this encounter [facility]* Diagnosis S/P TKR (total knee replacement), left- Primary Acute pain of left knee documented [facility] general Narrative - Reported* Type Description Date [...] HIS RIGHT EYE Hospitalization History see above [employer] Other History of Present illness Narrative* Shirlene Blakely, PT - 09/30/2024 3:15 PM EST Time In: 2:20 PM Time Out: 3:00 PM Supervised Time: 40 min Total Time: 40 min Visit Number: 8, Medicare, has used $1321.70 toward Medicare cap Chief Complaint: Z96.652: s/p total knee replacement left G89.18, M25.562: Acute post-operative pain left knee S/p left TKA on 08/22/[address] Ruiz 6 weeks post-op on 10/02/24 Precautions: Total knee precautions Subjective Mechanism of injury: Degenerative, surgery Location of Symptoms: left knee Pain level: minimal pain without use of an AD Objective ROM AAROM: L Knee flexion: 102* L Knee extension: 3* from full extension PROM: L knee flexion: 109* L knee extension: 0 INTERVENTIONS: X 25 minutes therapeutic exercises for ROM and strengthening X 15 minutes of manual therapy: passive stretch into flexion PROM PT Assessment: Patient had minimal pain upon arrival and ambulating without an AD. Patient improved AAROM and PROMfor left knee flexion today. Needs manual therapy at each session to improve motion. Patient tolerated session well today, assess patients response at next session. Plan: PT 2-3x/weeks x 6 weeks documented in this encounterNOSt. Louis Children's HospitalInstructionsNot on filedocumented in this encounterMercy Health Anderson HospitalReason for referral (narrative)* Diagnostic Procedure Only (Routine) - Pending Review Specialty Diagnoses / Procedures Referred By Ravi avendano Referred To Contact US IMAGING Diagnoses Chronic kidney disease, unspecified CKD stage Procedures US KIDNEY/BLADDER US RETROPERITONEAL REAL TIME W/IMAGE COMPLETE Lyndsay Salgado DO [id number] [place] [address] Us Imaging Referral ID Status Reason Start Date Expiration Date Visits Requested Visits Authorized [id number] Pending Review Auto-Generat ed Referral 05/16/2023 06/14/2024 1 1 * Consult, Test, Treat (Routine) - Authorized Specialty Diagnoses / Procedures Referred By Ravi avendano Referred To Contact Pain Management Diagnoses Generalized pain Procedures CONSULT TO PAIN MGT OFFICE/OUTPATIENT [facility] 60-74 MINUTES Lyndsay Salgado DO [id number] [place] [address] Referral ID Status Reason Start Date Expiration Date Visits Requested Visits Authorized [id number] Authorized PCP Requested Referral 05/16/2023 05/15/2024 1 1 * Consult, Test, Treat (Routine) - Authorized Specialty Diagnoses / Procedures Referred By Contac t Referred To Contact Cardiology Diagnoses Bradycardia Procedures CONSULT TO CARDIOLOGY OFFICE/OUTPATIENT [facility] 60-74 MINUTES Lyndsay Salgado DO [address] [place] [address] Referral ID Status Reason Start Date Expiration Date Visits Requested Visits Authorized [id number] Authorized PCP Requested Referral 05/16/2023 05/15/2024 1 1 [facility] for visit Narrative* Rehabilitation - Outpatient (Routine) - Authorized Specialty Diagnoses / Procedures Referred By Contac t Referred To Contact Physical Therapy Diagnoses S/P total knee replacement, left Procedures [place] OFF[place]OUTPATIENT [facility] Queta Tilley, LORELEI [address] [facility] [address] [place] [address] Phone: tel: fax: Seth Ragland, PT [address] [place] [address] Phone: tel: fax: Referral ID Status Reason Start Date Expiration Date Visits Requested Visits Authorized [id number] Authorized Consult and Treat 08/30/2024 02/26/2025 10 10 [facility] for visit Narrative* Rehabilitation - Outpatient (Routine) - Authorized Specialty Diagnoses / Procedures Referred By Contac t Referred To Contact Physical Therapy Diagnoses S/P total knee replacement, left Procedures [place] OFF[place]PAT[place] [facility] Queta Tilley PA [address] [facility] [address] [place] [address] Phone: tel: fax: Seth Ragland, PT [address] [place] [address] Phone: tel: fax: Referral ID Status Reason Start Date Expiration Date Visits Requested Visits Authorized [id number] Authorized Consult and Treat 08/30/2024 10/15/2024 10 10 [facility] Summary Purpose Family History No Family History Records Found Relationship Condition Age at Onset Recorded Date/T bridger father Heart disease Unknown Unknown family member Unknown Not Specified Diabetes mellitus Unknown Malignant neoplasm Unknown sister Heart disease Unknown Advance Directives No Advanced Directives Records Found Advance Directive Response Recorded Date/ Time Advance Directives No August 11, 2020 1:09pm Hospital Course Note HNO ID: [id number] Author: Jae [email or web address] (ResTaina Osullivan MD Service: [...] section and content) DATE CREATED AUTHOR 12/10/2018 [facility] DATE CREATED AUTHOR AUTHOR'S ORGANIZ ATION 07/18/2019 [facility] DATE CREATED AUTHOR AUTHOR'S ORGANIZ ATION 07/01/2020 [facility] DATE CREATED AUTHOR AUTHOR'S ORGANIZ ATION 01/23/2021 [facility] DATE CREATED AUTHOR AUTHOR'S ORGANIZ ATION 03/24/2023 [facility] DATE CREATED AUTHOR AUTHOR'S ORGANIZ ATION 06/26/[address] [facility] DATE CREATED AUTHOR AUTHOR'S ORGANIZ ATION 11/15/2023 [facility] DATE CREATED AUTHOR AUTHOR'S ORGANIZ ATION 03/20/2024 [facility] DATE CREATED AUTHOR AUTHOR'S ORGANIZ ATION 08/15/2024 [facility] DATE CREATED AUTHOR AUTHOR'S ORGANIZ ATION 10/08/2024 [facility] EPIC REASON FOR VISIT (unrecogniz ed section and content) Reason Comments New Patient Reason Comments Post-op Pain Reason Comments Pre-op Exam Reason Onset Date Comments Surgery 08/14/2024 Reason Comments Post-op Reason Comments Pain Post-op Reason Comments Pain Source Comments (unrecognize d section and content) In the event this informatio n is protected by the Federal Confidentiality of Alcohol and Drug Abuse Patient Records regulations: The Federal rules restrict any use of the information to criminally investigate or prosecute any alcohol or drug abuse patient.[facility] the event this information is protected by the Federal Confidentiality of Alcohol and Drug Abuse Patient Records regulations: The Federal rules restrict any use of the information to criminally investigate or prosecute any alcohol or drug abuse patient.[facility] the event this information is protected by the Federal Confidentiality of Alcohol and Drug Abuse Patient Records regulations: The Federal rules restrict any use of the information to criminally investigate or prosecute any alcohol or drug abuse patient.[facility] Care Teams (unrecognized sec tion and content) Life Insurance Agent Relationship Specialty Start Date End Date Narciso Bullock MD PCP - General 07/06/09 Life Insurance Agent Relationship Specialty Start Date End Date Narciso Bullock MD PCP - General 07/06/09 Life Insurance Agent Relationship Specialty Start Date End Date Narciso [...] March 18, 2024 End: March 18, 2024 Life Insurance Agent Relationship Specialty Start Date End Date Narciso Bullock MD [address] [place] [phone] PCP - General Family Medicine 09/25/23 Life Insurance Agent Relationship Specialty Start Date End Date Narciso Bullock MD [address] [facility] [place] [address] PCP - General Family Medicine 09/25/23 Life Insurance Agent Relationship Specialty Start Date End Date Narciso Bullock MD [address] [facility] [place] [address] PCP - General Family Medicine 08/13/24 Life Insurance Agent Relationship Specialty Start Date End Date Narciso Bullock MD [address] [facility] [place] [address] PCP - General Family Medicine 08/13/24 Life Insurance Agent Relationship Specialty Start Date End Date Narciso Bullock MD [address] [place] [place] [address] PCP - General Family Medicine 09/25/23 Life Insurance Agent Relationship Specialty Start Date End Date Narciso Bullock MD [address] [place] [place] [address] PCP - General Family Medicine 09/25/23 Life Insurance Agent Relationship Specialty Start Date End Date Narciso Bullock MD [address] [facility] [place] [address] PCP - General Family Medicine 09/25/23 Life Insurance Agent Relationship Specialty Start Date End Date Narciso Bullock MD [address] [facility] [place] [address] PCP - General Family Medicine 08/13/24 Life Insurance Agent Relationship Specialty Start Date End Date Narciso Bullock MD [address] [place] [facility] [place] [address] PCP - General Family Medicine 09/25/23 Life Insurance Agent Relationship Specialty Start Date End Date Narciso Bullock MD [address] [facility], [id number] PCP - General Family Medicine 09/25/23 Life Insurance Agent Relationship Specialty Start Date End Date Narciso Bullock MD [address] [place] [facility] [place] [address] PCP - General Family Medicine 09/25/23 Life Insurance Agent Relationship Specialty Start Date End Date Narciso Bullock MD [address] [facility], [id number] PCP - General Family Medicine 09/25/23 Life Insurance Agent Relationship Specialty Start Date End Date Narciso Bullock MD [address] [place] [facility] [place] [address] PCP - General Family Medicine 09/25/23 Life Insurance Agent Relationship Specialty Start Date End Date Narciso Bullock MD [address] [place] [facility] [place] [address] PCP - General Family Medicine 09/25/23 Life Insurance Agent Relationship Specialty Start Date End Date Narciso Bullock MD [address] [place] [facility] [place] [address] PCP - General Family Medicine 09/25/23 Life Insurance Agent Relationship Specialty Start Date End Date Narciso Bullock MD [address] [facility] [place] [address] PCP - General Family Medicine 09/25/23 Life Insurance Agent Relationship Specialty Start Date End Date Narciso Bullock MD [address] [place] [facility] [place] [address] PCP - General Family Medicine 09/25/23 Life Insurance Agent Relationship Specialty Start Date End Date Narciso Bullock MD [address] [place] [facility] [place] [address] PCP - General Family Medicine 09/25/23 Life Insurance Agent Relationship Specialty Start Date End Date Narciso Bullock MD [address] [place] [facility] [place] [address] PCP - General Family Medicine 09/25/23 Life Insurance Agent Relationship Specialty Start Date End Date Narciso Bullock MD [address] [place] [facility] [place] [address] PCP - General Family Medicine 09/25/23 Life Insurance Agent Relationship Specialty Start Date End Date Narciso Bullock MD [address] [place] [facility] [place] [address] PCP - General Family Medicine 09/25/23 Life Insurance Agent Relationship Specialty Start Date End Date Narciso Bullock MD [address] [place] [facility] [place] [address] PCP - General Family Medicine 09/25/23 Goals (unrecognized section and content) Goals may [...] BE BASED ON THE PRIMARY CLINICAL RECORDS. [facility]. provides no warranty or guarantee of the accuracy or completeness of information in this document.
[2024-10-17 16:33] LABS: Bilirubin Urine NEGATIVE (NEGATIVE); Blood Urine NEGATIVE (NEGATIVE); Clarity Urine CLEAR (CLEAR); Color Urine YELLOW (YELLOW); Glucose Urine UA NEGATIVE (NEGATIVE); Ketones Urine NEGATIVE (NEGATIVE); Leukocyte Esterase Urine NEGATIVE (NEGATIVE); Nitrite Urine NEGATIVE (NEGATIVE); Protein Urine NEGATIVE (NEG/TRACE); Urobilinogen Urine 0.2 EU/dL (0.2-1.0); pH Urine 6.5 (5.0-9.0)
[2024-10-17 16:35] LABS: Basophils Absolute Auto 0.1 10^3/uL (0.0-0.1); Basophils Percent Auto 0.8 % (0.2-2.0); Eosinophils Absolute Auto 0.3 10^3/uL (0.0-0.7); Eosinophils Percent Auto 2.9 % (0.9-7.0); Hematocrit 38.5 % (42.0-54.0); Hemoglobin 12.6 g/dL (14.0-18.0); Immature Granulocytes Abs Auto 0.03 10^3/uL (0.00-0.03); Immature Granulocytes Pct Auto 0.3 % (0.0-0.5); Lymphocytes Absolute Auto 2.5 10^3/uL (1.2-3.8); Lymphocytes Percent Auto 25.9 % (20.5-60.0); Mean Corpuscular HGB Conc 32.7 g/dL (29.9-35.2); Mean Corpuscular Hemoglobin 30.4 pg (25.9-34.0); Mean Platelet Volume 9.2 fL (9.5-13.5); Monocytes Absolute Auto 0.9 10^3/uL (0.3-0.8); Monocytes Percent Auto 9.3 % (1.7-12.0); Neutrophils Absolute Auto 5.8 10^3/uL (1.4-6.5); Neutrophils Percent Auto 60.8 % (43.0-75.0); Platelet Count 233 10^3/uL (150-450); Red Blood Count 4.14 10^6/uL (4.70-6.10); Red Cell Distribution Width 13.2 % (11.0-15.0); White Blood Count 9.5 10^3/uL (4.0-11.0)
[2024-10-17 16:36] LABS: Microalbumin Urine Random <1.3 mg/dL (<=30.0); Protein Creatinine Ratio Urine 0.12; Total Protein Urine Random 12.4 mg/dL (<=11.9)
[2024-10-17 16:45] LABS: Urine Microscopic Indicated NO
[2024-10-17 17:28] LABS: BUN Creatinine Ratio 19.3; Calcium 9.4 mg/dL (8.5-10.1); Carbon Dioxide 29.3 mmol/L (21.0-32.0); Chloride 100 mmol/L (98-107); Estimated GFR (African America 55 (>=60 mL/min/1.73m^2); Estimated GFR (Non-African Ame 45 (>=60 mL/min/1.73m^2); Glucose 97 mg/dL (74-106); Phosphorus 3.9 mg/dL (2.6-4.7); Potassium 4.3 mmol/L (3.5-5.1); Sodium 135 mmol/L (136-145)
[2024-10-20 11:08] LABS: PTH, Intact 24 pg/mL (15-65)
== END 2024-10-17 15:55 | disposition home or self-care (01) ==
LOC: LAB 15:57
PROVIDERS: PCP Family Medicine
DX: N18.30 Chronic kidney disease, stage 3 unspecified (principal)
CPT/HCPCS: 36415; 80069; 81003; 82043; 82306; 82570; 83970; 84156; 85025

== ENCOUNTER 2024-10-29 09:01 | Outpatient (OUT) | payer MEDICARE, OTHER, SELFPAY ==
--- OUTSIDE RECORDS SUMMARY | 2024-10-29 09:16 | XMS_ITS | CCD ---
Author Organization [facility] CliniSymt Care Team Providers Care 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 Name Role Phone MAYNORRICH TRELL Jarrell Referring Unavailable Ileana Earl Unavailable Yudith Rubin Unavailable ARA ., DR STUART Primary Care Unavailable AMBERASHI, DR OWEN Admitting Unavailable ELASHI, DR OWEN [...] Unavailable Narciso Bullock MD Primary Care Provider [phone] TAYLOR COREAS Attending Unavailable PARI ESCALANTE Attending Unavailable TAYLOR COREAS Attending Unavailable TAYLOR COREAS Attending Unavailable MD Narciso Bullock Primary Care Provider [phone] CHRISTINE Tilley Attending Provider [phone] Queta Tilley Attending Unavailable Queta Tilley Admitting Unavailable Narciso Bullock Primary Care Unavailable Narciso Bullock MD Primary Care Provider [phone] Narciso Bullock MD Primary Care Provider [phone] QUETA TILLEY Referring Unavailable NARCISO BULLOCK Primary Care Unavailable QUETA TILLEY Attending Unavailable QUETA TILLEY Referring Unavailable NARCISO BULLOCK Primary Care Unavailable Narciso Bullock MD Primary Care Provider [phone] NARCISO BULLOCK Primary Care Unavailable MAY SALGADOYAN Attending Unavailable STEPJR. JAYCE, EL Matos Attending Unavaila ble STEPJAYCE JRMalena, EL Matos Referring Unavaila ble QUEAT TILLEY Attending Unavailable MEDVES, SHIRLENE Rowe Attending Unavailable TILLEY, QUETA Mcnamara Referring Unavailable TILLEY, QUETA Mcnamara Attending Unavailable MEDVESSHIRLENE Attending Unavailable STEPJAYCE JR., EL Matos Referring Unavaila ble GUAMEENA BURT Attending Unavailable STEPANIC, JR., EL Matos Referring Unavaila ble GUZIK, AMEENA Attending Unavailable STEPANIC, JR., EL Matos Referring Unavaila ble HOWARDBONILLA KNOWLES Attending Unavailable STEPANIC, JR., EL Matos Referring Unavaila ble HOWARDBONILLA Attending Unavailable STEPJAYCE, JR., EL Matos Referring Unavaila ble GUZIKAMEENA Attending Unavailable STEPANIC, JR., EL Matos Referring Unavaila ble MEDVESSHIRLENE Attending Unavailable STEPJAYCE, JR., EL Matos Referring Unavaila ble HOWARDBONILLA KNOWLES Attending Unavailable STEPJAYCE JR., EL Matos Referring Unavaila ble GIACOMO CARMICHAEL Attending Unavailable STEPJAYCE, JR., EL Matos Referring Unavaila ble QUETA TILLEY Attending Unavailable QUETA TILLEY Referring Unavailable MEDVESSHIRLENE Attending Unavailable STEPJAYCE JR., EL Matos Referring Unavaila ble STEPJAYCE JR., EL Matos Attending Unavaila ble STEPJAYCE JRMalena, EL Matos Attending Unavaila ble QUETA ITLLEY Attending Unavailable TILLEYQUETA Attending Unavailable ROSEANNE SOUSA Attending Unavailable TILLEYQUETA Referring Unavailable SOUSAROSEANNE Attending Unavailable TILLEY, QUETA Mcnamara Referring Unavailable SOUSAROSEANNE Attending Unavailable TILLEY, QUETA Mcnamara Referring Unavailable HISGIACOMO TRIPATHI Attending Unavailable TILLEYQUETA Referring Unavailable MEDVESSHIRLENE M Attending Unavailable TILLEYQUETA Referring Unavailable SOUSAROSEANNE Attending Unavailable TILLEY, QUETA Mcnamara Referring Unavailable MEDVES, SHIRLENE M Attending Unavailable TILLEY, QUETA J Referring Unavailable TILLEY, QUETA J Attending Unavailable TILLEY, QUETA J Referring Unavailable MEDVES, SHIRLENE M Attending Unavailable TILLEY, QUETA J Referring Unavailable MEDVES, SHIRLENE M Attending Unavailable TILLEYQUETA Referring Unavailable HISEYGIACOMO Attending Unavailable TILLEY, QUETA Mcnamara Referring Unavailable Allergies Allergy Classification Reported Allergen(s) Allergy Type Date of Onset Reaction(s) Facility (20 sources) Acetaminophen / oxyCODONE Drug Allergy 4 Other [facility] (20 sources) Other Propensity to adverse reactions 4 Other [facility] Medications Current Medications Medication Drug Class(es) Dates Sig (Normalized) Sig (Original) acetaminophen 325 mg / HYDROcodone bitartrate 5 mg oral tablet (9 sources) Opioid Agonist Start: 09-17-2024 End: 09-22-2024 take 1 tablet by mouth every six hours for pain HYDROcodone-aceta minophen (Bruni) 5-325 MG tablet Indications: S/P total knee replacement, left Take 1 tablet by mouth every 6 (six) hours if needed for severe pain for up to 5 days 20 tablet 09/17/2024 09/22/2024 Active Start: 08-29-2024 End: 09-10-2024 take 1 tablet by mouth every six hours for pain HYDROcodone-acetaminophen (Bruni) 5-325 MG tablet Indications: Post-operative pain Take 1 tablet by mouth every 6 (six) hours if needed for severe pain for up to 5 days 20 tablet 09/05/2024 09/10/2024 Active Start: 08-21-2024 End: 08-26-2024 take 1 tablet by mouth every six hours for pain HYDROcodone-acetaminophen (Bruni) 5-325 MG tablet Indications: Post-operative pain Take 1 tablet by mouth every 6 (six) hours if needed for severe pain for up to 5 days 20 tablet 08/21/2024 08/26/2024 Active Acidophilus Extra Strength - (2 sources) Acidophilus Extr a Strength - as directed Orally Active Hocking 500 MG (2 sources) Hocking 500 MG a s directed Orally Active [...] Active Coconut Oil Acti ve diclofenac sodium 0.01 mg/mg topical gel (20 sources) Nonsteroidal Anti-inflammatory Drug End: 10-22-2024 take 1 drop(s) into the eye(s) four times daily diclofenac (VOLTAREN) 0.1 % ophthalmic solution 1 Drop four times daily. 10/22/2024 Discontinued (Other) diclofenac (VOLT AREN ARTHRITIS PAIN) 1 % topical gel Apply to affected area two times a day. Active End: 10-22-2024 take 1 tablet by mouth twice daily diclofenac, EC, (VOLTAREN) 25 mg EC tablet Take 25 mg by mouth twice daily. 10/22/2024 Discontinued diclofenac (Volt aren) 0.1 % ophthalmic solution 1 drop in the morning and 1 drop at noon and 1 drop in the evening and 1 drop before bedtime. Active take 1 tablet by dom th every twelve hours Diclofenac Sodium 75 MG 1 tablet Orally Twice a day Active Comment on above: Take 25 mg by mouth twice daily. ferrous sulfate 325 mg oral tablet (20 sources) Start: 10-22-2024 take 1 tablet by mouth twice daily ferrous sulfate 325 mg (65 mg iron) tablet Take 1 tablet by mouth two times a day. 10/22/2024 Active take 1 tablet by mouth in the mo rning FeroSul 325 (65 Fe) MG tablet Take [...] oral capsule (12 sources) Vitamin B12 Start: 4 End: 4 take 1 tablet by mouth once daily Iron Polysacch Vkpea-L15-QE (Poly-Iron 150 Forte) 150-0.025-1 MG capsule Indications: [...] (20 sources) Angiotensin 2 Receptor Igor Start: take 1 tablet by mouth once daily irbesartan (AVAPRO) 150 mg tablet Take 1 tablet by mouth once daily. 10/22/2024 Active Start: 12-08-2023 irbesartan (Av apro) 150 MG tablet 1 (one) time each day at the same time 12/08/2023 Active Multivitamins (2 sources) Multivitamins as directed Orally Active quercetin 50 mg oral tablet (1 source) take 1 tablet by mouth once daily Quercetin 50 MG 1 tablet Orally Once a day Active [place] 540 mg (2 sources) take 1 capsule by mouth once daily [place] 540 mg 1 Capsule Orally Daily Active spironolactone 50 mg oral tablet (20 sources) Aldosterone Antagonist take 1 tablet by mouth once daily spironolactone (ALDACTONE) 50 mg tablet Take 50 mg by mouth once daily. Active Comment on above: Take 50 mg by mouth once daily. tamsulosin hydrochloride 0.4 mg oral capsule (20 sources) alpha-Adrenergic Igor Start: 10-22-19 take 1 capsule by mouth twice daily tamsulosin (FLOMAX) 0.4 mg Take 1 capsule by mouth two times a day. 10/22/2024 Active Start: 08-14-2023 tamsulosin (Fl omax) 0.4 MG 24 hr capsule 08/14/2023 Active Start: 09-30-2016 End: 10-22-2024 take 0.4 mg by mouth once daily tamsulosin ER (FLOMAX) 0.4 mg cp24 Indications: Prostate cancer (HCC) Take 0.4 mg by mouth once daily. 09/30/2016 10/22/2024 Discontinued (Adjust Sig - Block E-Cancel) Comment on above: Take 0.4 mg by [...] needed. ascorbic acid 1000 mg oral tablet (5 sources) Vitamin C End: 10-22-2024 take 1 tablet by mouth three times weekly Ascorbic Acid (VITAMIN C) 1,000 mg tablet Take 1,000 mg by mouth three times a week. 10/22/2024 Discontinued take 3 tablets by mo [facility] three times weekly Ascorbic Acid (VITAMIN C) 1,000 mg table t Take 3,000 mg by mouth 3 times a WEEK. 0 Active Comment on above: Take 3,000 mg by dom th 3 times a WEEK. aspirin 81 mg delayed release oral tablet (10 sources) Platelet Aggregation Inhibitor, Nonsteroidal Anti-inflammatory Drug Start: 07-16-2019 End: 10-22-2024 take 1 tablet by mouth twice daily aspirin, enteric coated (ASPIRIN, ENTERIC COATED) 81 mg EC tablet Take 1 tablet by mouth twice daily for 14 days. 28 tablet 07/16/2019 10/22/2024 Discontinued End: 10-22-2024 take 1 tablet by mouth once daily aspirin, enteric coated (ASPIRIN, ENTERIC COATED) 81 mg EC tablet Indications: Prostate cancer (HCC) Take 81 mg by mouth once daily. 10/22/2024 Discontinued take 1 tablet by dom th every twenty-four hours Aspirin 81 MG 1 tablet Orally Once a day Active Comment on above: Take 81 mg by mouth once daily. Take 1 tablet by dom th twice daily for 14 days. celecoxib 200 [...] on above: Take 1 capsule by mo [facility] twice daily. Garlic preparation (1 source) Non-Standardized Food Allergenic Extract End: 3 take 1 tablet by mouth once daily GARLIC ORAL Indications: Prostate cancer (HCC) Take 1 tablet by mouth once daily. 0 05/16/2023 Discontinued Comment on above: Take 1 tablet by dom once daily. Lactobac no.41-Bifidobact no.7 (PROBIOTIC-10) 70 mg (3 billion cell) cap (5 sources) End: 5 take 1 capsule by mouth once daily Lactobac no.41-Bifidobact no.7 (PROBIOTIC-10) 70 mg (3 billion cell) cap Take 1 capsule by mouth once daily. 10/22/2024 Discontinued take 1 capsule by mouth once renee ly Lactobac no.41-Bifidobact no.7 (PROBIOTIC- 10) 70 mg (3 billion cell) cap Take 1 capsule by mouth once daily. Active take 1 capsule by mouth once renee ly Lactobac no.41-Bifidobact no.7 (PROBIOTIC- 10) 70 mg (3 billion cell) cap Take 1 capsule by mouth once daily. 0 Active Comment on above: Take 1 capsule by mo uth once daily. lecithin 1200 mg oral capsule (1 source) End: 3 take 1 capsule by mouth once daily Lecithin 1,200 mg cap Take 1 capsule by mouth once daily. 0 05/16/2023 Discontinued Comment on above: Take 1 capsule by [facility] once daily. losartan potassium 25 mg oral tablet (8 sources) Angiotensin 2 Receptor Igor Start: 3 End: 5 take 3 tablets by mouth once daily losartan (COZAAR) 25 mg tablet Take 3 tablets by mouth once daily. 10/03/2023 10/22/2024 Discontinued Start: 09-23-2016 take 1 tablet by dom once daily losartan (COZAAR) 100 mg tablet Indications: Prostate cancer (HCC) Take 100 mg by mouth once daily. 0 09/23/2016 Active take 1 tablet by dom once daily Losartan Potassium 50 MG TAKE 1 TABLET BY MOUTH DAILY for 90 Active Comment on above: Take 100 mg by mouth once daily. lovastatin 20 mg oral tablet (7 sources) HMG-CoA Reductase Inhibitor End: 5 take 1 tablet by mouth once daily at bedtime lovastatin (MEVACOR) 20 mg tablet Take 20 mg by mouth daily at bedtime. 10/22/2024 Discontinued Comment on above: Take 20 mg by mouth daily at bedtime. MINERALS ORAL (5 sources) End: 5 take 1 tablet by mouth once daily MINERALS ORAL Take 1 tablet by mouth once daily. 10/22/2024 Discontinued take 1 tablet by mouth once nikki y MINERALS ORAL Take 1 tablet by mouth once daily. Active take 1 tablet by mouth once nikki y MINERALS ORAL Take 1 tablet by mouth once daily. 0 Active Comment on above: Take 1 tablet by dom once daily. multivitamin (MULTIPLE VITAMINS) tablet (5 sources) End: 10-22-2024 take 1 tablet by mouth once daily multivitamin (MULTIPLE VITAMINS) tablet Take 1 tablet by mouth once daily. 10/22/2024 Discontinued take 1 tablet by mouth once nikki y multivitamin (MULTIPLE VITAMINS) tablet Take 1 tablet by mouth once daily. Active take 1 tablet by mouth once nikki y multivitamin (MULTIPLE VITAMINS) tablet Take 1 tablet by mouth once daily. 0 Active Comment on above: Take 1 tablet by dom once daily. mupirocin 0.02 mg/mg topical ointment (5 sources) RNA Synthetase Inhibitor Antibacterial Start: 9 End: mupirocin (BACTROBAN) 2 % ointment Apply 0.5 inch with cotton swab (Q-tip) to each nostril in the morning and evening for 5 days prior to and including day of surgery. 22 g 06/25/2019 10/22/2024 Discontinued Comment on above: Apply 0.5 inch with cotton swab (Q-tip) to each nostril in the morning and evening for 5 days prior to and including day of surgery. Gcmkw-9-LCD-EPA-Fi sh Oil (FISH OIL) 1,000 mg (120 mg-180 mg) cap (5 sources) End: 5 take 1 capsule by mouth once daily Uafnl-7-FSG-EPA-Fish Oil (FISH OIL) 1,000 mg (120 mg-180 mg) cap Take 1 g by mouth once daily. 10/22/2024 Discontinued take 1 capsule by mouth once renee ly Wpxxs-8-DGN-EPA-Fish Oil (FISH OIL) 1,000 mg (120 mg-180 mg) cap Take 1 g by mouth once daily. Active take 1 capsule by mouth once renee ly Gdrqb-6-LVS-EPA-Fish Oil (FISH OIL) 1,000 mg (120 mg-180 mg) cap Take 1 g by mouth once daily. 0 Active Comment on above: Take 1 g by mouth on ce daily. prasterone 50 mg oral tablet (7 sources) End: 10-22-2024 take 1 tablet by mouth once daily prasterone, dhea, (DHEA) 50 mg tab Take 50 mg by mouth once daily. 10/22/2024 Discontinued DHEA 50 50 MG as directed Orally TWICE A DAY Active DHEA 50 50 MG as directed Orally once a day Active Comment on above: Take 50 mg by mouth once daily. [place] 160 mg capsule (5 sources) End: 10-22-2024 take 1 capsule by mouth three times daily [place] 160 mg capsule Take 160 mg by mouth three times daily. 10/22/2024 Discontinued take 1 capsule by mouth three ti mes daily [place] 160 mg capsule Take 160 mg by mouth three times daily. Active take 1 capsule by mouth three ti mes daily [place] 160 mg capsule Take 160 mg by mouth three times daily. 0 Active Comment on above: Take 160 mg by mouth three times daily. turmeric-turmeric root extract 450-50 mg cap (5 sources) End: 10-22-2024 take 1 capsule by mouth once daily turmeric-turmeric root extract 450-50 mg cap Take 1 capsule by mouth once daily. 10/22/2024 Discontinued take 1 capsule by mouth once renee ly turmeric-turmeric root extract 450-50 mg cap Take 1 capsule by mouth once daily. Active take 1 capsule by mouth once renee ly turmeric-turmeric root extract 450-50 mg cap Take 1 capsule by mouth once daily. 0 Active Comment on above: Take 1 capsule by mo uth once daily. Vitamin B Complex (7 sources) End: 10-22-2024 take 1 tablet by mouth once daily vitamin b complex tab Take 1 tablet by mouth once daily. 10/22/2024 Discontinued take 1 tablet by mouth once nikki y vitamin b complex tab Take 1 tablet by mouth once daily. Active take 1 tablet by mouth once nikki y vitamin b complex tab Take 1 tablet by mouth once daily. 0 Active Vitamin B Comple x - Orally Active Comment on above: Take 1 tablet by dom th once daily. VITAMIN E ACETATE ORAL (5 sources) End: 10-22-2024 take 1200 mg by mouth twice daily VITAMIN E ACETATE ORAL Take 1,200 mg by mouth twice daily. 10/22/2024 Discontinued take 1200 mg by mouth twice nikki y VITAMIN E ACETATE ORAL Take 1,200 mg by mouth twice daily. Active take 1200 mg by mouth twice nikki y VITAMIN E ACETATE ORAL Take 1,200 mg by mouth twice daily. 0 Active Comment on above: Take 1,200 mg by dom th twice daily. Problems Active Problems Problem Classification Problem Date Documented Date Episodic/Chronic Allergic reactions (2 sources) Eczema; Translations: [Dermatitis, unspecified] 08-13-2024 Episodic Cardiac dysrhythmias (3 sources) Supraventricular tachycardia; Translations: [Supraventricular tachycardia] Onset: Chronic Chronic kidney disease (11 sources) Chronic kidney disease stage 3; Translations: [Chronic kidney disease, stage 3 (moderate)] Onset: 8 05-16-2023 Chronic Chronic kidney disease (7 sources) Chronic kidney disease; Translations: [Chronic kidney disease, stage 3a] Onset: 1 Resolved: 1 Deficiency and other anemia (4 sources) Anemia of renal disease; Translations: [Anemia in chronic kidney disease] 05-16-2023 Chronic Deficiency and other anemia (2 sources) Anemia in chronic kidney disease Onset: 1 Resolved: 1 Chronic Deficiency and other anemia (2 sources) Iron deficiency anemia; Translations: [Iron deficiency anemia, unspecified] Episodic Disorders of lipid metabolism (7 sources) Pure hypercholesterolemia, unspecified; Translations: [Hyperlipidemia, unspecified] Onset: 7 07-16-2019 Chronic Essential hypertension (9 sources) Essential hypertension; Translations: [Essential (primary) hypertension] [...] primary osteoarthritis of the shoulder region] Onset: 7 Resolved: 1 Chronic Other aftercare (20 sources) Patient encounter status; Translations: [Aftercare following joint replacement surgery] Onset: 4 04-22-2024 Chronic Other connective tissue disease (1 source) Presence of left artificial shoulder joint; Translations: [Presence of left artificial shoulder joint] Onset: 9 Chronic Other connective tissue disease (5 sources) History of operative procedure on shoulder; Translations: [Presence of unspecified artificial shoulder joint] Onset: 7 03-15-2017 Chronic Other connective tissue disease (5 sources) History of left shoulder arthroplasty; Translations: [Presence of left artificial shoulder joint] Onset: 9 07-01-2021 Chronic Other connective tissue disease (20 sources) Artificial knee joint present; Translations: [Presence of right artificial knee joint] Onset: 4 04-22-2024 Chronic Other connective tissue disease (20 sources) History of total knee arthroplasty; Translations: [Presence of left artificial knee joint] Onset: 4 09-05-2024 Chronic Other diseases of kidney and ureters (1 source) Hyperparathyroidism due to renal insufficiency; Translations: [Secondary hyperparathyroidism of renal origin] 10-22-2024 Chronic Other nervous system disorders (4 sources) [...] Problem Classification Problem Date Documented Date Episodic/Chronic Cancer of prostate (2 sources) Malignant tumor of prostate; Translations: [Malignant neoplasm of prostate] Onset: 07-05-2016 Resolved: 06-25-2019 06-25-2019 Chronic Cardiac dysrhythmias (3 sources) Bradycardia; Translations: [Bradycardia, unspecified] Onset: 06-06-2023 05-16-2023 Episodic Diabetes mellitus without complication (1 source) Other abnormal glucose; Translations: [OTHER ABNORMAL GLUCOSE] Onset: 09-02-2022 Episodic Malaise and fatigue (1 source) Other fatigue; Translations: [OTHER FATIGUE] Onset: 09-02-2022 Episodic Other aftercare (1 source) Other skilled nursing (current) drug therapy; Translations: [OTH MATH TUTOR CURRENT DRUG THERAPY] Onset: 09-02-2022 Episodic Other male genital disorders (2 sources) Induratio penis plastica; Translations: [Induration penis plastica] Onset: 07-08-2009 Resolved: 06-25-2019 06-25-2019 Chronic Other non-traumatic joint disorders (1 source) Pain in unspecified joint; Translations: [PAIN IN UNSPECIFIED JOINT] Onset: 09-02-2022 Episodic Other non-traumatic joint disorders (5 sources) Shoulder pain; Translations: [Pain in unspecified [...] Test Name Value Interpretation Reference [facility]KID[facility] ) -- AMINA LIM ([id number]) 1945 M Date Time Provider Department 10/22/24 10:20 AM LYNDSAY SALGADO During your visit today, we recorded the following information about you: Pulse Blood pressure Weight Height 64/minute 130/69 92.5 kg 1.791 m Lyndsay Salgado DO 10/22/2024 10:48 AM Signed Department of [facility] [place] [facility] SERVICE DATE: 10/22/2024 SERVICE TIME: 10:27 AM CHIEF COMPLAINT: Chronic kidney disease stage IIIa HPI: Mr. Lim is a 79 year old male with a Pmhx of primary hypertension, hyperlipidemia, and osteoarthritis, who presents with chronic kidney disease stage IIIa. 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 05/2023 - Renal labs today. Referred to pain management for alternatives aside from NSAIDs. US kidney/bladder with normal appearing kidneys. 10/03/2023 - Followed with cardiology afterwards. Sinus bradycardia and episodes of nonsustained atrial tachycardia. No A-fib episodes noted. Fastest rate 160 beat per minute. Creatinine 1.1. Decreased from 1.4 when last checked 05/2023. Losartan increased to 75 mg daily the day prior to his appointment. Can increase to 100 mg daily if blood pressure remains uncontrolled. Follow up yearly. Recent labs Hgb 12.6 HCT 38.5 UA was bland with UPCR 0.12 Cr 1.50 mg/dL Bun 29 Na 135 K 4.3 Chloride 100 Bicarbonate 29.3 Calcium 9.4 Phos 3.9 Vitamin D 33 Overall stable renal function. Following with cardiology at the [facility]. No longer taking NSAIDs after his bilateral knee replacement. PAST MEDICAL HISTORY: PAST MEDICAL HISTORY Diagnosis [...] for drug/alcohol abuse in the past. MEDICATIONS: diclofenac (VOLTAREN ARTHRITIS PAIN) 1 % topical gel Apply to affected area two times a day. spironolactone (ALDACTONE) 50 mg tablet Take 50 mg by mouth once daily. tamsulosin ER (FLOMAX) 0.4 mg cp24 Take 0.4 mg by mouth once daily. diclofenac (VOLTAREN) 0.1 % ophthalmic solution 1 Drop four times daily. losartan (COZAAR) 25 mg tablet Take 3 tablets by mouth once daily. aspirin, enteric coated [...] (Patient not taking: Reported on 10/07/2019 ) prasterone, dhea, (DHEA) 50 mg tab Take 50 mg by mouth once daily. turmeric-turmeric root extract 450-50 mg cap Take 1 capsule by mouth once daily. Ascorbic Acid (VITAMIN C) 1,000 mg tablet Take 1,000 mg by mouth three times a week. MINERALS ORAL Take 1 tablet by mouth once daily. Rqkah-0-UWA-EPA-Fish Oil (FISH OIL) 1,000 mg (120 mg-180 mg) cap Take 1 g by mouth once daily. lovastatin (MEVACOR) 20 mg tablet Take 20 mg by mouth daily at bedtime. multivitamin (MULTIPLE VITAMINS) tablet Take 1 tablet by mouth once daily. [place] 160 mg capsule Take 160 mg by mouth three times daily. vitamin b complex tab Take 1 tablet by mouth once daily. VITAMIN E ACETATE ORAL Take 1,200 mg by mouth twice daily. aspirin, enteric coated (ASPIRIN, ENTERIC COATED) 81 mg EC tablet Take 81 mg by mouth once daily. ALLERGIES: ALLERGIES No Known Allergies PHYSICAL EXAM: BP 130/69 Pulse 64 Ht 179.1 cm (5' 10.51 ) Wt 92.5 kg (203 lb 14.8 oz) BMI 28.84 kg/m? BP - standardized method Pulse 1 BP #1: 137/68 Pulse #1: 64 beats/min 2 BP #2 : 124/70 Pulse #2 : 65 beats/min 3 BP #3 : 129/69 Pulse #3 : 63 beats/min Average Average BP: 130/69 Average Pulse: 64 beats/min BP cuff location BP cuff location: Right upper arm BP cuff size BP cuff size: regular adult Constitutional: No acute distress, Responsive, Normal habitus, and Well-nourished Eyes: Conjunctiva clear and PERRL Ear, Nose, and Throat: Heari (more content not included)... [facility] (MIDNYV) -- AMINA LIM ([id number]) 1945 M Date Time Provider Department 10/17/24 CASSIDY ARITA [facility] During your visit today, we recorded the following information about you: Cassidy Arita DO 10/17/2024 2:11 PM Signed ----- Message from RHODA Han sent at 10/17/2024 1:10 PM EST ----- Regarding: Lab orders for upcoming appt w/Dr. Salgado Contact: Patient is requesting labs for upcoming appt on 10/22/24. Labs need to be faxed to [facility] @ [phone]. Call pt when done Thanks, Cassidy Deluca DO 10/17/2024 2:17 PM Signed Covering for Dr Salgado CKD lab work ordered Cassidy Arita DO October 17, 2024, 2:15 PM Porfirio Hamilton MA 10/17/2024 5:05 PM Addendum Orders printed and faxed to number provided below. Confirmation received. Pt notified KANE Angel Diana, DO [facility] hour ago (2:17 PM) Please fax lab orders to [facility] and let patient know that I have ordered them. (Covering for Dr Salgado) Thanks Cassidy Méndez DO 10/18/2024 1:47 PM Signed Labs received and will be scanned into chart for review. Patient to see Dr Salgado next week for follow visit Hgb 12.6 HCT 38.5 UA was bland with UPCR 0.12 Cr 1.50mg/dL Bun 29 Na 135 K 4.3 Chloride 100 Bicarbonate 29.3 Calcium 9.4 Phos 3.9 Vitamin D 33 Lucia Seymour [facility] 10/21/2024 8:21 AM Signed Fax received from [facility] lab in regards to pt PTH lab result: PTH result is 24. Fax marked with pt MRN and placed in for scanning. ELINOR Castillo Allergies As of Date: 10/17/2024 (No Known Allergies) Date Reviewed: 10/03/2023 Reviewed by: Lyndsay Salgado DO - Fully Assessed Primary Visit Diagnosis:Stage 3 chronic kidney disease, unspecified whether stage 3a or 3b CKD (HCC) [N18.30] Order(s):ALBUMIN/CREATININ E RATIO, URINE [SQUACR] Order #: [id number] FUTURE PROTEIN / CREATININE RATIO [SQPRATIO] Order #: [id number] FUTURE URINALYSIS WITH MICROSCOPIC, REFLEX CULTURE [SQUACII] Order #: [id number] FUTURE RENAL FUNCTION PANEL [SQRFP] Order #: [id number] FUTURE VITAMIN D 25 HYDROXY [SQVITD] Order #: [id number] FUTURE PTH INTACT [SQPTHI] Order #: [id number] FUTURE COMPLETE BLOOD COUNT [SQCBC] Order #: [id number] FUTURE Prescriptions as of 10/21/2024 - losartan (COZAAR) 25 mg tablet Take 3 tablets by mouth once daily. - aspirin, enteric [...] Acid (VITAMIN C) 1,000 mg tablet Take 1,000 mg by mouth three times a week. - MINERALS ORAL Take 1 tablet by mouth once daily. - Wfchv-8-CAY-EPA-Fish Oil (FISH OIL) 1,000 mg (120 mg-180 mg) cap Take 1 g by mouth once daily. - lovastatin (MEVACOR) 20 mg tablet Take 20 mg by mouth daily at bedtime. - multivitamin (MULTIPLE VITAMINS) tablet Take 1 tablet by mouth once daily. - Saw [place] 160 mg capsule Take 160 mg by mouth three times daily. - vitamin b complex tab Take 1 tablet by mouth once daily. - VITAMIN E ACETATE ORAL Take 1,200 mg by mouth twice daily. - tamsulosin ER (FLOMAX) 0.4 mg cp24 Take 0.4 mg by mouth once daily. - aspirin, enteric coated (ASPIRIN, ENTERIC COATED) 81 mg EC tablet Take 81 mg by mouth once daily. Problem List As Of Date 10/17/2024 Noted Resolved Peyronie's disease [N48.6] 07/08/2009 06/25/2019 [...] Shoulder pain [M25.519] 07/16/2019 Encounter Status:Closed by PORFIRIO HAMILTON on 10/17/24 Normal [facility] XR Knee - left 1 or 2 [...] dislocation. Impression: Unremarkable left total knee arthroplasty [facility] Study observation (narrative) [facility] APTTon 08-13-2024 aPTT Coag (PPP) [Time] 35 s [facility] Comment on above: NEW REFERENCE RANGE aPTT Coag (Bld) [Time] 35 s NO [facility] Comment on above: NEW [place]FERENCE [place] [address] CBC AND AUTO DIFFon 08-13-20 24 ABSOLUTE BASOPHIL 0.1 X10E9/L Normal 0.0-0.2 [facility] Comment on above: Performed By: #### 1 4979-9 #### [facility] ([id number]) [address] [place] [address] 25690 #### CBCA, PINR, CMP #### [facility] ([id number]) [address], [address] [place] [address] ABSOLUTE NEUTROPHIL 5.3 X10E9/L Normal 1.5-6.6 [facility] Comment on above: Performed By: #### 1 4979-9 #### [facility] ([id number]) [address] [place] [address] 48652 #### CBCA, PINR, CMP #### [facility] ([id number]) [address], [address] [place] [address] Basophils/100 WBC (Bld) 0.8 % Normal [facility] Comment on above: Performed By: #### 1 4979-9 #### [facility] ([id number]) [address] [place] [address] 72163 #### CBCA, PINR, CMP #### [facility] ([id number]) [address], [address] [place] [address] Eosinophils (Bld) [#/Vol] 0.2 10*3/uL Normal 0.0-0.4 [facility] Comment on above: Performed By: #### 1 4979-9 #### [facility] ([id number]) [address] [place] [address] 60477 #### CBCA, PINR, CMP #### [facility] ([id number]) [address], [address] [place] [address] Eosinophils/100 WBC (Bld) 2.1 % Normal [facility] Comment on above: Performed By: #### 1 4979-9 #### [facility] ([id number]) [address] [place] [address] 15597 #### CBCA, PINR, CMP #### [facility] ([id number]) [address], [address] [place] [address] Erythrocyte distribution width (RBC) [Ratio] 13.9 % Normal 11.5-15.0 [facility] Comment on above: Performed By: #### 1 4979-9 #### [facility] ([id number]) [address] [place] [address] 37914 #### CBCA, PINR, CMP #### [facility] ([id number]) [address], [address] [place] [address] Hematocrit (Bld) [Volume fraction] 39.0 % Normal 39-49 [facility] Comment on above: Performed By: #### 1 4979-9 #### [facility] ([id number]) [address] [place] [address] 08489 #### CBCA, PINR, CMP #### [facility] ([id number]) [address], [address] [place] [address] Hemoglobin (Bld) [Mass/Vol] 13.3 g/dL Normal 13.0-17.0 [facility] Comment on above: Performed By: #### 1 4979-9 #### [facility] ([id number]) [address] [place] [address] 21803 #### CBCA, PINR, CMP #### [facility] ([id number]) [address] [facility], [address] [place] [address] Lymphocytes (Bld) [#/Vol] 1.8 10*3/uL Normal 1.0-3.5 [facility] Comment on above: Performed By: #### 1 4979-9 #### [facility] ([id number]) [address] [place] [address] 62290 #### CBCA, PINR, CMP #### [facility] ([id number]) [address], [address] [place] [address] Lymphocytes/100 WBC (Bld) 22.6 % Normal [facility] Comment on above: Performed By: #### 1 4979-9 #### [facility] ([id number]) [address] [place] [address] 40810 #### CBCA, PINR, CMP #### [facility] ([id number]) [address], [address] [place] [address] MCH (RBC) [Entitic mass] 31.5 pg Normal 27-34 [facility] Comment on above: Performed By: #### 1 4979-9 #### [facility] ([id number]) [address] [place] [address] 75072 #### CBCA, PINR, CMP #### [facility] ([id number]) [address] [facility], [address] [place] [address] MCHC (RBC) [Mass/Vol] 34.0 g/dL Normal 32-36 [facility] Comment on above: Performed By: #### 1 4979-9 #### [facility] ([id number]) [address] [place] [address] 91743 #### CBCA, PINR, CMP #### [facility] ([id number]) [address] [facility], [address] [place] [address] MCV (RBC) [Entitic vol] 93 fL Normal 80-100 [facility] Comment on above: Performed By: #### 1 4979-9 #### [facility] ([id number]) [address] [place] [address] 49714 #### CBCA, PINR, CMP #### [facility] ([id number]) [address] [facility], [address] [place] [address] Monocytes (Bld) [#/Vol] 0.7 10*3/uL Normal 0-0.9 [facility] Comment on above: Performed By: #### 1 4979-9 #### [facility] ([id number]) [address] [place] [address] 87665 #### CBCA, PINR, CMP #### [facility] ([id number]) [address] [facility], [address] [place] [address] Monocytes/100 WBC (Bld) 8.2 % Normal [facility] Comment on above: Performed By: #### 1 4979-9 #### [facility] ([id number]) [address] [place] [address] 03912 #### CBCA, PINR, CMP #### [facility] ([id number]) [address], [address] [place] [address] Neutrophils/100 WBC (Bld) 66.3 % Normal [facility] Comment on above: Performed By: #### 1 4979-9 #### [facility] ([id number]) [address] [place] [address] 35743 #### CBCA, PINR, CMP #### [facility] ([id number]) [address], [address] [place] [address] Platelet mean volume (Bld) [Entitic vol] 8.2 fL Normal 7-12 [facility] Comment on above: Performed By: #### 1 4979-9 #### [facility] ([id number]) [address] [place] [address] 52017 #### CBCA, PINR, CMP #### [facility] ([id number]) [address], [address] [place] [address] Platelets (Bld) [#/Vol] 227 10*3/uL Normal 150-450 [facility] Comment on above: Performed By: #### 1 4979-9 #### [facility] ([id number]) [address] [place] [address] 74262 #### CBCA, PINR, CMP #### [facility] ([id number]) [address], [address] [place] [address] RBC COUNT 4.22 X10E12/L Normal 4.10-5.70 [facility] Comment on above: Performed By: #### 1 4979-9 #### [facility] ([id number]) [address] [place] [address] 62811 #### CBCA, PINR, CMP #### [facility] ([id number]) [address], [address] [place] [address] WBC (Bld) [#/Vol] 8.0 10*3/uL Normal 4.0-11.0 [facility] Comment on above: Performed By: #### 1 4979-9 #### [facility] ([id number]) [address] [place] [address], [place] [address] #### CBCA, PINR, CMP #### [facility] ([id number]) [address] [facility], [address] [place] [address] CBC auto differentialon 07-17 Basophils (Bld) [#/Vol] 0.1 10*3/uL [facility] Basophils/100 WBC (Bld) 0.8 % [facility] Eosinophils (Bld) [#/Vol] 0.2 10*3/uL [facility] Eosinophils/100 WBC (Bld) 2.1 % [facility] Erythrocyte distribution width (RBC) [Ratio] 13.9 % 11.5 - 15.0 % [facility] Hematocrit (Bld) [Volume fraction] 39 % 39 - 49 % [facility] Hemoglobin (Bld) [Mass/Vol] 13.3 g/dL 13.0 - 17.0 g/dL [facility] Lymphocytes (Bld) [#/Vol] 1.8 10*3/uL [facility] Lymphocytes/100 WBC (Bld) 22.6 % [facility] MCH (RBC) [Entitic mass] 31.5 pg 27 - 34 pg [facility] MCHC (RBC) [Mass/Vol] 34 g/dL 32 - 3 6 g/dL [facility] MCV (RBC) [Entitic vol] 93 fL 80 - 100 fL [facility] Monocytes (Bld) [#/Vol] 0.7 10*3/uL [facility] Monocytes/100 WBC (Bld) 8.2 % [facility] Neutrophils (Bld) [#/Vol] 5.3 10*3/uL [facility] Neutrophils/100 WBC (Bld) 66.3 % [facility] Platelet mean volume (Bld) [Entitic vol] 8.2 fL 7 - 12 fL [facility] Platelets (Bld) [#/Vol] 227 10*3/uL [facility] RBC (Bld) [#/Vol] 4.22 10*6/uL [facility] WBC corrected for nucl RBC Auto (Bld) [#/Vol] 8 [facility] COMPREHENSIVE METABOLIC PANE Juan Daniel 08-13-2024 Albumin [Mass/Vol] 4.1 g/dL Normal 3.2-5.3 [facility] Comment on above: Performed By: #### 1 4979-9 #### [facility] ([id number]) [address] [place] [address] 61127 #### CBCA, PINR, CMP #### [facility] ([id number]) [address], [address] [place] [address] ALP [Catalytic activity/Vol] 40 U/L Normal 39-130 [facility] Comment on above: Performed By: #### 1 4979-9 #### [facility] ([id number]) [address] [place] [address] 27649 #### CBCA, PINR, CMP #### [facility] ([id number]) [address], [address] [place] [address] ALT [Catalytic activity/Vol] 21 U/L Normal 0-40 [facility] Comment on above: Performed By: #### 1 4979-9 #### [facility] ([id number]) [address] [place] [address] 03260 #### CBCA, PINR, CMP #### [facility] ([id number]) [address], [address] [place] [address] Anion gap [Moles/Vol] 7 mmol/L Normal 5-15 [facility] Comment on above: Performed By: #### 1 4979-9 #### [facility] ([id number]) [address] [place] [address] 38975 #### CBCA, PINR, CMP #### [facility] ([id number]) [address] [facility], [address] [place] [address] AST [Catalytic activity/Vol] 17 U/L Normal 0-41 [facility] Comment on above: Performed By: #### 1 4979-9 #### [facility] ([id number]) [address] [place] [address] 89146 #### CBCA, PINR, CMP #### [facility] ([id number]) [address] [place] [address], [address] [place] [address] Bilirubin [Mass/Vol] 0.4 mg/dL Normal 0.3-1.2 [facility] Comment on above: Performed By: #### 1 4979-9 #### [facility] ([id number]) [address] [place] [address] 68648 #### CBCA, PINR, CMP #### [facility] ([id number]) [address] [place] [address], [address] [place] [address] Calcium [Mass/Vol] 9.1 mg/dL Normal 8.5-10.5 [facility] Comment on above: Performed By: #### 1 4979-9 #### [facility] ([id number]) [address] [place] [address] 53657 #### CBCA, PINR, CMP #### [facility] ([id number]) [address] [place] [address], [address] [place] [address] Chloride [Moles/Vol] 100 mmol/L Normal 98-109 [facility] Comment on above: Performed By: #### 1 4979-9 #### [facility] ([id number]) [address] [place] [address] 47998 #### CBCA, PINR, CMP #### [facility] ([id number]) [address], [address] [place] [address] CO2 [Moles/Vol] 27 mmol/L Normal 22-32 [facility] Comment on above: Performed By: #### 1 4979-9 #### [facility] ([id number]) [address] [place] [address] 66822 #### CBCA, PINR, CMP #### [facility] ([id number]) [address], [address] [place] [address] Creatinine [Mass/Vol] 1.21 mg/dL Normal 0.60-1.30 [facility] Comment on above: Result Comment: METH OD TRACEABLE TO IDMS STANDARD Performed By: #### 1 4979-9 #### [facility] ([id number]) [address] [place] [address] 42606 #### CBCA, PINR, CMP #### [facility] ([id number]) [address], [address] [place] [address] GFR/1.73 sq M.predicted among non-blacks MDRD (S/P/Bld) [Vol rate/Area] 61 mL/min/{1.73_m2} Normal >59 [facility] Comment on above: Result Comment: Reported eGFR is based on the CKD-EPI 1 equation that does not use a race coefficient. Performed By: #### 1 4979-9 #### [facility] ([id number]) [address] [place] [address] 46739 #### CBCA, PINR, CMP #### [facility] ([id number]) [address], [address] [place] [address] Glucose [Mass/Vol] 87 mg/dL Normal 65-99 [facility] Comment on above: Performed By: #### 1 4979-9 #### [facility] ([id number]) [address] [place] [address] 30078 #### CBCA, PINR, CMP #### [facility] ([id number]) [address], [address] [place] [address] Potassium [Moles/Vol] 4.2 mmol/L Normal 3.5-5.0 [facility] Comment on above: Performed By: #### 1 4979-9 #### [facility] ([id number]) [address] [place] [address] 31140 #### CBCA, PINR, CMP #### [facility] ([id number]) [address], [address] [place] [address] Protein [Mass/Vol] 6.6 g/dL Normal 6.0-8.0 [facility] Comment on above: Performed By: #### 1 4979-9 #### [facility] ([id number]) [address] [place] [address] 11810 #### CBCA, PINR, CMP #### [facility] ([id number]) [address], [address] [place] [address] Sodium [Moles/Vol] 134 mmol/L Normal 134-146 [facility] Comment on above: Performed By: #### 1 4979-9 #### [facility] ([id number]) [address] [place] [address] 38358 #### CBCA, PINR, CMP #### [facility] ([id number]) [address], [address] [place] [address] Urea nitrogen [Mass/Vol] 29 mg/dL High 5-27 [facility] Comment on above: Performed By: #### 1 4979-9 #### [facility] ([id number]) [address] [place] [address] [place] [address] #### CBCA, PINR, CMP #### [facility] ([id number]) [address] [facility], [address] [place] [address] Comprehensive metabolic pane [facility] 08-13-2024 Albumin [Mass/Vol] 4.1 g/dL 3.2 - 5.3 g/dL [facility] ALP [Catalytic activity/Vol] 40 U/L 39 - 130 U/L [facility] ALT No additional P-5'-P [Catalytic activity/Vol] 21 U/L 0 - 40 U/L [facility] Anion gap [Moles/Vol] 7 mmol/L 5 - 15 mmol/L [facility] AST [Catalytic activity/Vol] 17 U/L 0 - 41 U/L [facility] Bilirubin [Mass/Vol] 0.4 mg/dL 0.3 - 1 .2 mg/dL [facility] Calcium [Mass/Vol] 9.1 mg/dL 8.5 - 10. 5 mg/dL [facility] Chloride [Moles/Vol] 100 mmol/L 98 - 10 9 mmol/L [facility] CO2 [Moles/Vol] 27 mmol/L 22 - 32 mmol/L [facility] Creatinine [Mass/Vol] 1.21 mg/dL 0.60 - 1.30 mg/dL [facility] Comment on above: METHOD TRACEABLE TO IDNV STANDARD eGFR (CKD-EPI)non-race dependent 61 - PINF [facility] Comment on above: Reported eGFR is based on the CKD-EPI 2020 equation that does not use a race coefficient. Glucose [Mass/Vol] 87 mg/dL 65 - 99 mg/dL [facility] Interpretation and review of laboratory results Abnormal [facility] Potassium [Moles/Vol] 4.2 mmol/L 3.5 - 5.0 mmol/L [facility] Protein [Mass/Vol] 6.6 g/dL 6.0 - 8.0 g/dL [facility] Sodium [Moles/Vol] 134 mmol/L 134 - 146 mmol/L [facility] Urea nitrogen [Mass/Vol] 29 mg/dL High 5 - 27 mg/dL [facility] PROTIME AND INRon 08-13-2024 INR Coag (PPP) [Relative time] 1.0 {INR} Normal 0.8-1.1 [facility] Comment on above: Performed By: #### 1 4979-9 #### [facility] ([id number]) [address] [place] [address] 89157 #### CBCA, PINR, CMP #### [facility] ([id number]) [address] [facility], [address] [place] [address] PT Coag (PPP) [Time] 11.1 s Normal 9.8-13.2 [facility] Comment on above: Performed By: #### 1 4979-9 #### [facility] ([id number]) [address] [place] [address] 04947 #### CBCA, PINR, CMP #### [facility] ([id number]) [address] [facility], [address] [place] [address] Protime & INRon 08-13-2024 INR Coag (PPP) [Relative time] 1 {INR} [facility] PT Coag (PPP) [Time] 11.1 s [facility] URINALYSISon 08-13-2024 Bilirubin Ql (U) Negative Normal NEG [facility] Comment on above: Performed By: #### U A #### [facility] ([id number]) [address] [facility], [address] [place] [address] BLOOD/HGB Negative Normal NEG [facility] Comment on above: Performed By: #### U A #### [facility] ([id number]) [address] [facility], [address] [place] [address] Color (U) YELLOW Normal YELLOW [facility] Comment on above: Performed By: #### U A #### [facility] ([id number]) [address] [place] [address], [address] [place] [address] Glucose Ql (U) Negative Normal NEG [facility] Comment on above: Performed By: #### U A #### [facility] ([id number]) [address] [place] [address], [address] [place] [address] Ketones Ql (U) Negative Normal NEG [facility] Comment on above: Performed By: #### U A #### [facility] ([id number]) [address] [place] [address], [address] [place] [address] Leukocyte esterase Test strip Ql (U) Negative Normal NEG [facility] Comment on above: Performed By: #### U A #### [facility] ([id number]) [address] [place] [address], [address] [place] [address] MUCOUS PRESENT Abnormal NONE [facility] Comment on above: Performed By: #### U A #### [facility] ([id number]) [address] [place] [address], [address] [place] [address] Nitrite Ql (U) Negative Normal NEG [facility] Comment on above: Performed By: #### U A #### [facility] ([id number]) [address] [place] [address], [address] [place] [address] pH (U) 6.0 [pH] Normal 5.0-8.5 [facility] Comment on above: Performed By: #### U A #### [facility] ([id number]) [address] [place] [address], [address] [place] [address] Protein Ql (U) Trace Abnormal NEG [facility] Comment on above: Performed By: #### U A #### [facility] ([id number]) [address] [place] [address], [address] [place] [address] R.B.CELLS <1 Normal 0-5 [facility] Comment on above: Performed By: #### U A #### [facility] ([id number]) [address], [address] [place] [address] Specific gravity (U) [Rel density] 1.028 Normal 1.003-1.03 5 [facility] Comment on above: Performed By: #### U A #### [facility] ([id number]) [address] [facility] [facility] [address] [place] [address] TURBIDITY CLEAR Normal CLEAR [facility] Comment on above: Performed By: #### U A #### [facility] ([id number]) [address], [address] [place] [address] Urobilinogen (U) [Mass/Vol] mg/dL Normal <1.1 [facility] Comment on above: Performed By: #### U A #### [facility] ([id number]) [address] [facility] [address] [place] [address] W.B.CELLS 1 /hpf Normal 0-5 [facility] Comment on above: Performed By: #### U A #### [facility] ([id number]) [address] [address] URINE CULTUREon 08-13-2024 Bacteria identified Cx Nom (U) CULTURE RESULTS <10,000 ORGANISMS/ML NORMAL URO GENITAL PAM Normal [facility] Comment on above: Performed By: #### 6 30-4 #### [facility] ([id number]) [address] [address] aPTT Coag (Bld) [Time]on [facility] aPTT Coag (PPP) [Time]on [facility] aPTT Coag (Bld) [Time] 35 s Normal 26-37 [facility] Comment on above: Result Comment: NEW REFERENCE RANGE Performed By: #### 1 4979-9 #### [facility] ([id number]) [address] [place] [address] #### CBCA, PINR, CMP #### [facility] ([id number]) [address] [facility], [address] [place] [address] Activated partial thrombopla stin time (aPTT) in platelet poor plasma by coagulation aOrdered By: Queta Tilley on 03-18-2024 aPTT Coag (PPP) [Time] 33.7 s 25.1-36.5 [facility] Comment on above: A hematocrit value g reater than 55% may lead to inaccurate results in coagulation testing. Patients having hematocrit values >55% require a special collection tube for coagulation studies. Please contact the laboratory at [phone] for redraw instructions. Alanine aminotransferase [En zymatic activity/volume] in Serum or PlasmaOrdered By: Queta Tilley on 03-18-2024 ALT [Catalytic activity/Vol] 22 U/L Normal 7-52 [facility] Comment on above: Performed By: #### C MP #### [place] [id number] [facility] Albumin [Mass/volume] in Ser um or Plasma by Bromocresol green (BCG) dye binding methoOrdered By: Queta Tilley on 03-18-2024 Albumin BCG dye [Mass/Vol] 4.6 g/dL 3.5-5.7 [facility] Alkaline phosphatase [Enzyma tic activity/volume] in Serum or PlasmaOrdered By: Queta Tilley on 03-18-2024 ALP [Catalytic activity/Vol] 37 U/L Normal 34-104 [facility] Comment on above: Result Comment: PERF ORMED BY: [address] [address] PATHOLOGIST DISTANCE LEARNING TECHNICIAN HUGO AVALOS M.D. Performed By: #### C MP #### [facility] [address] [place] [address] [place] Aspartate aminotransferase [ Enzymatic activity/volume] in Serum or PlasmaOrdered By: Queta Tilley on 03-18-2024 AST [Catalytic activity/Vol] 16 U/L Normal 13-39 [facility] Comment on above: Performed By: #### C MP #### [address] Automated basophil %Ordered By: Queta Tilley on 03-18-2024 Basophils/100 WBC (Bld) 0.6 % Normal . [facility] Comment on above: Performed By: #### C BC #### [address] Automated basophil countOrde red By: Queta Tilley on 03-18-2024 Basophils (Bld) [#/Vol] 0.1 10*3/uL Normal 0.0-0.2 [facility] Comment on above: Result Comment: PERF ORMED BY: [place] [address] PATHOLOGIST DISTANCE LEARNING TECHNICIAN HUGO AVALOS M.D. Performed By: #### C BC #### [address] Automated blood monocyte cou ntOrdered By: Queta Tilley on 03-18-2024 Monocytes (Bld) [#/Vol] 0.8 10*3/uL Normal 0.0-0.8 [facility] Comment on above: Performed By: #### C BC #### [address] Automated eosinophil %Ordere d By: Queta Jarek on 03-18-2024 Eosinophils/100 WBC (Bld) 0.8 % Normal . [facility] Comment on above: Performed By: #### C BC #### [address] Automated eosinophil countOr dered By: Queta Tilley on 03-18-2024 Eosinophils (Bld) [#/Vol] 0.1 10*3/uL Normal 0.0-0.45 [facility] Comment on above: Performed By: #### C BC #### [address] Automated monocyte %Ordered By: Quetahaile Tilley on 03-18-2024 Monocytes/100 WBC (Bld) 8.0 % Normal . [facility] Comment on above: Performed By: #### C BC #### [address] Automated neutrophil %Ordere d By: Queta Jarek on 03-18-2024 Neutrophils/100 WBC (Bld) 64.7 % Normal . [facility] Comment on above: Performed By: #### C BC #### [address] Bilirubin Test strip Ql (U)O rdered By: Quetahaile Tilley on 03-18-2024 Bilirubin Ql (U) Negative Negative [facility] Bilirubin.total [Mass/volume ] in Serum or PlasmaOrdered By: Queta Tilley on 03-18-2024 Bilirubin [Mass/Vol] 0.5 mg/dL Normal 0.3-1.0 [facility] Comment on above: Performed By: #### C MP #### [place] [address] [place] Calcium [Mass/volume] in Ser um or PlasmaOrdered By: Queta Tilley on 03-18-2024 Calcium [Mass/Vol] 9.7 mg/dL Normal 8.6-10.3 [facility] Comment on above: Performed By: #### C MP #### [place] [address] [place] Carbon dioxide, total [Moles /volume] in Serum or PlasmaOrdered By: Queta Tilley on 03-18-2024 CO2 [Moles/Vol] 27.0 mmol/L Normal 21.0-31.0 [facility] Comment on above: Performed By: #### C MP #### [place] [address] [place] Chloride [Moles/volume] in S hafsa or PlasmaOrdered By: Queta Tilley on 03-18-2024 Chloride [Moles/Vol] 97 mmol/L Low 98-107 [facility] Comment on above: Performed By: #### C MP #### [place] [address] [place] Color of Urine by AutoOrdere d By: Queta Tilley on 03-18-2024 Color (U) Yellow Normal Yellow [facility] Comment on above: Order Comment: Name Collection Type:: Clean-Voided Midstream Performed By: #### U A #### [address] Complete Blood Count Auto Di ffon 03-18-2024 Mean Corpuscular HGB Conc 33.6 g/dL Normal 32.5-35.6 [facility] Comment on above: Performed By: #### C BC #### [address] NRBC% 0.4 /100{WBC} Normal 0-0.5 [facility] Comment on above: Performed By: #### C BC #### [address] Comprehensive Metabolic Pane juan daniel 03-18-2024 Albumin [Mass/Vol] 4.6 g/dL Normal 3.5-5.7 [facility] Comment on above: Performed By: #### C MP #### [address] GFR/1.73 sq M.predicted MDRD (S/P/Bld) [Vol rate/Area] mL/min/{1.73_m2} Normal [facility] Comment on above: Performed By: #### C MP #### [address] Creatinine [Mass/volume] in Serum or PlasmaOrdered By: Queta Tilley on 03-18-2024 Creatinine [Mass/Vol] 1.19 mg/dL Normal 0.70-1.30 [facility] Comment on above: Performed By: #### C MP #### [address] ECG 12 lead ECGon 03-18-2024 ECG 12 lead ECG [facility] [place] [address] Electrocardiograph Report Signed Patient: Amina Lim MR#: [id number] 4 : 1945 Acct:[id number] Age/Sex: 78 / M ADM Date: 03/18/24 Loc: Room: [facility] Attending Dr: Queta Tilley PA-C Ordering Provider: [...] 0 03/18/24 1508 Normal [facility] Erythrocyte distribution wid th [Ratio] by Automated countOrdered By: Queta Tilley on 03-18-2024 Erythrocyte distribution width (RBC) [Ratio] 14.1 % Normal 12.0-14.8 [facility] Comment on above: Performed By: #### C BC #### [facility] [address] Erythrocytes [#/volume] in B lood by Automated countOrdered By: Queta Tilley on 03-18-2024 RBC (Bld) [#/Vol] 4.42 10*6/uL Normal 3.90-5.60 [facility] Comment on above: Performed By: #### C BC #### [facility] [address] Glucose [Mass/volume] in Ser um or PlasmaOrdered By: Queta Tilley on 03-18-2024 Glucose [Mass/Vol] 93 mg/dL Normal 70-100 [facility] Comment on above: ADA recommended refe rence rangeRandom Glucose Reference Range is dependent on time and content of last meal. Glucose of more than 200 mg/dL in a nonstressed, ambulatory subject supports the diagnosis of Diabetes Mellitus. Result Comment: [place] om Glucose Reference Range is dependent on time and content of last meal. Glucose of more than 200 mg/dL in a nonstressed, ambulatory subject supports the diagnosis of Diabetes Mellitus. ADA recommended reference range Performed By: #### C MP #### [address] Glucose [Mass/volume] in Uri ne by Test stripOrdered By: Queta Tilley on 03-18-2024 Glucose Test strip (U) [Mass/Vol] Normal mg/dL Normal [facility] Hematocrit [Volume Fraction] of Blood by Automated countOrdered By: Queta Tilley on 03-18-2024 Hematocrit (Bld) [Volume fraction] 41.0 % Normal 38.8-50.0 [facility] Comment on above: Performed By: #### C BC #### [address] Hemoglobin Test strip Ql (U) Ordered By: Queta Tilley on 03-18-2024 Hemoglobin Ql (U) Negative Negative [facility] Hemoglobin [Mass/volume] in BloodOrdered By: Queta Tilley on 03-18-2024 Hemoglobin (Bld) [Mass/Vol] 13.8 g/dL Normal 13.0-17.0 [facility] Comment on above: Performed By: #### C BC #### [address] INR in Platelet poor plasma by Coagulation assayOrdered By: Queta Tilley on 03-18-2024 INR Coag (PPP) [Relative time] 0.9 {INR} Normal [facility] Comment on above: INR Therapeutic Rang [...] Performed By: #### P T, PTT #### [place] [address] [place] Ketones [Presence] in Urine by Test stripOrdered By: Queta Tilley on 03-18-2024 Ketones Ql (U) Negative Normal Negative [facility] Comment on above: Order Comment: Name Collection Type:: Clean-Voided Midstream Performed By: #### U A #### [place] [address] [place] Leukocyte esterase [Presence ] in Urine by Test stripOrdered By: Queta Tilley on 03-18-2024 Leukocyte esterase Test strip Ql (U) Negative Normal Negative [facility] Comment on above: Order Comment: Name Collection Type:: Clean-Voided Midstream Performed By: #### U A #### [address] Leukocytes [#/volume] correc brady for nucleated erythrocytes in Blood by Automated counOrdered By: Queta Tilley on 03-18-2024 WBC corrected for nucl RBC Auto (Bld) [#/Vol] 9.4 10*3/uL 4.1-10.5 [facility] Leukocytes [#/volume] in Blo od by Automated countOrdered By: Queta Tilley on 03-18-2024 WBC (Bld) [#/Vol] 9.4 10*3/uL Normal 4.1-10.5 [facility] Comment on above: Performed By: #### C BC #### [place] [address] [place] Lymphocytes [#/volume] in Bl ood by Automated countOrdered By: Queta Tilley on 03-18-2024 Lymphocytes (Bld) [#/Vol] 2.4 10*3/uL Normal 1.00-4.8 [facility] Comment on above: Performed By: #### C BC #### [place] [address] [place] Lymphocytes/100 leukocytes i n Blood by Automated countOrdered By: Queta Tilley on 03-18-2024 Lymphocytes/100 WBC (Bld) 25.9 % Normal . [facility] Comment on above: Performed By: #### C BC #### [address] MCH [Entitic mass] by Automa brady countOrdered By: Queta Tilley on 03-18-2024 MCH (RBC) [Entitic mass] 31.2 pg Normal 27.5-35.2 [facility] Comment on above: Performed By: #### C BC #### [address] MCHC Auto (RBC) [Mass/Vol]Or dered By: Queta Tilley on 03-18-2024 MCHC (RBC) [Mass/Vol] 33.6 g/dL 32.5-35.6 [facility] MCV [Entitic volume] by Auto mated countOrdered By: Queta Tilley on 03-18-2024 MCV (RBC) [Entitic vol] 92.9 fL Normal 83.5-101 [facility] Comment on above: Performed By: #### C BC #### [address] Neutrophils [#/volume] in Bl ood by Automated countOrdered By: Queta Tilley on 03-18-2024 Neutrophils (Bld) [#/Vol] 6.1 10*3/uL Normal 1.8-7.7 [facility] Comment on above: Performed By: #### C BC #### [address] Nitrite Test strip Ql (U)Ord ered By: Queta Tilley on 03-18-2024 Nitrite Ql (U) Negative Negative [facility] No Panel InformationOrdered By: Queta Tilley on 03-18-2024 Estimated GFR (CKD-EPI) > 60.0 mL/Min [facility] Creatinine Clearance (Chem N/A [facility] Nucleated erythrocytes [Pres ence] in Blood by Automated countOrdered By: Queta Tilley on 03-18-2024 Nucleated RBC Auto Ql (Bld) 0.4 /100{WBC} 0-0.5 [facility] Partial Thromboplastin Timeo n 03-18-2024 aPTT Coag (Bld) [Time] 33.7 s Normal 25.1-36.5 [facility] Comment on above: Result Comment: A he matocrit value greater than 55% may lead to inaccurate results in coagulation testing. Patients having hematocrit values >55% require a special collection tube for coagulation studies. Please contact the laboratory at [phone] for redraw instructions. PERFORMED BY: [place] [address] PATHOLOGIST DISTANCE LEARNING TECHNICIAN HUGO AVALOS M.D. Performed By: #### P T, PTT #### [address] Platelet mean volume [Entiti c volume] in Blood by Automated countOrdered By: Queta Tilley on 03-18-2024 Platelet mean volume (Bld) [Entitic vol] 7.7 fL Normal 6.6-10.1 [facility] Comment on above: Performed By: #### C BC #### [address] Platelets [#/volume] in Bloo d by Automated countOrdered By: Queta Tilley on 03-18-2024 Platelets (Bld) [#/Vol] 220 10*3/uL Normal 150-450 [facility] Comment on above: Performed By: #### C BC #### [address] Potassium [Moles/volume] in Serum or PlasmaOrdered By: Queta Tilley on 03-18-2024 Potassium [Moles/Vol] 4.8 mmol/L Normal 3.5-5.1 [facility] Comment on above: Performed By: #### C MP #### [address] Protein Test strip (U) [Mass /Vol]Ordered By: Queta Tilley on 03-18-2024 Protein (U) [Mass/Vol] Negative Negative [facility] Protein [Mass/volume] in Ser um or PlasmaOrdered By: Queta Tilley on 03-18-2024 Protein [Mass/Vol] 6.9 g/dL Normal 6.4-8.9 [facility] Comment on above: Performed By: #### C MP #### [address] Prothrombin time (PT)Ordered By: Queta Tilley on 03-18-2024 PT Coag (PPP) [Time] 11.0 s Normal 9.0-12.9 [facility] Comment on above: A hematocrit value g reater than 55% may lead to inaccurate results in coagulation testing. Patients having hematocrit values >55% require a special collection tube for coagulation studies. Please contact the laboratory at [phone] for redraw instructions. Result Comment: A he matocrit value greater than 55% may lead to inaccurate results in coagulation testing. Patients having hematocrit values >55% require a special collection tube for coagulation studies. Please contact the laboratory at [phone] for redraw instructions. Performed By: #### P T, PTT #### [address] Serum globulin measurement b y calculation (mass/volume)Ordered By: Queta Tilley on 03-18-2024 Globulin (S) [Mass/Vol] 2.3 g/dL [facility] Comment on above: Performed By: #### C MP #### [address] Serum or plasma albumin/glob ulin mass ratioOrdered By: Queta Tilley on 03-18-2024 Albumin/Globulin [Mass ratio] 2.0 {ratio} [facility] Comment on above: Performed By: #### C MP #### [address] Serum or plasma anion gap de terminationOrdered By: Queta Tilley on 03-18-2024 Anion gap [Moles/Vol] 11.8 mmol/L Normal 6.0-15.0 [facility] Comment on above: Performed By: #### C MP #### [address] Sodium [Moles/volume] in Ser um or PlasmaOrdered By: Queta Tilley on 03-18-2024 Sodium [Moles/Vol] 131 mmol/L Low 136-145 [facility] Comment on above: Performed By: #### C MP #### [address] Specific gravity Test strip (U) [Rel density]Ordered By: Queta Tilley on 03-18-2024 Specific gravity (U) [Rel density] 1.022 1.001-1.03 0 [facility] Urea nitrogen [Mass/volume] in Serum or PlasmaOrdered By: Queta Tilley on 03-18-2024 Urea nitrogen [Mass/Vol] 26 mg/dL High 7-25 [facility] Comment on above: Performed By: #### C MP #### [address] Urinalysison 03-18-2024 Bilirubin,Urine Negative Normal Negative [facility] Comment on above: Order Comment: Name Collection Type:: Clean-Voided Midstream Performed By: #### U A #### [address] Glucose Ql (U) Normal Normal Normal [facility] Comment on above: Order Comment: Name Collection Type:: Clean-Voided Midstream Performed By: #### U A #### [place] [address] [place] Nitrite,Urine Negative Normal Negative [facility] Comment on above: Order Comment: Name Collection Type:: Clean-Voided Midstream Performed By: #### U A #### [address] Occult Blood,Urine Negative Normal Negative [facility] Comment on above: Order Comment: Name Collection Type:: Clean-Voided Midstream Result Comment: PERF ORMED BY: [place] [address] PATHOLOGIST DISTANCE LEARNING TECHNICIAN HUGO AVALOS M.D. Performed By: #### U A #### [address] Protein,Urine Negative Normal Negative [facility] Comment on above: Order Comment: Name Collection Type:: Clean-Voided Midstream Performed By: #### U A #### [address] Specificy [place],Urine 1.022 Normal 1.001-1.03 0 [facility] Comment on above: Order Comment: Name Collection Type:: Clean-Voided Midstream Performed By: #### U A #### [address] Urobilinogen,Urine Normal Normal Normal [facility] Comment on above: Order Comment: Name Collection Type:: Clean-Voided Midstream Performed By: #### U A #### [address] Urine Cultureon 03-18-2024 Bacteria identified Cx Nom (U) No Growth 2 Days PERFORMED BY: [place] [address] PATHOLOGIST DISTANCE LEARNING TECHNICIAN HUGO AVALOS M.D. [place] [facility] Comment on above: Performed By: #### C UU #### [address] Urine appearanceOrdered By: Queta Tilley on 03-18-2024 Appearance (U) Clear Normal Clear [facility] Comment on above: Order Comment: Name Collection Type:: Clean-Voided Midstream Performed By: #### U A #### [address] Urobilinogen Test strip (U) [Mass/Vol]Ordered By: Queta Tilley on 03-18-2024 Urobilinogen (U) [Mass/Vol] Normal mg/dL Normal [facility] XR bonelength lower extremit yon 03-18-2024 XR bonelength lower extremity [facility] [place] [address] [place] [address] XRay Report Signed Patient: Aimna Lim MR#: [id number] 4 : 1945 Acct:[id number] Age/Sex: 78 / M ADM Date: 03/18/24 Loc: Room: [facility] Attending Dr: Queta Tilley PA-C Copies to: [...] Kelly Banegas M.D.03/18/2024 4:55 PM Dictation Location: [place] [address] Transcribed By: [facility] 03/18/241654 Dictated By: Kelly Banegas II, MD 03/18/241653 Signed By: 03/18/241654 Normal [facility] pH of Urine by Test stripOrd ered By: Queta Tilley on 03-18-2024 pH (U) 5.5 [pH] Normal 5.0-9.0 [facility] Comment on above: Order Comment: Name Collection Type:: Clean-Voided Midstream Performed By: #### U A #### [facility] [address] [place] [address] Office Visiton 11-14-2023 Follow-up visit [id number] Amina Lim 1945 M Date Provider Department Center 11/14/2023 1596-TAYLOR COREAS CARD [facility] Family History Problem Relation Age of Onset Other Father Lupus Father Family Status - Relation Status Age at Father Level of Service:24721 CO OFFICE/OUTPATIENT ESTABLISHED MOD MDM 30 MIN Normal [facility] Office Visiton 10-02-2023 Follow-up visit [id number] Amina Lim 1945 M Date Provider Department Center 10/02/2023 TAYLOR GARCIAS Family History Problem Relation Age of Onset Other Father Lupus Father Family Status - Relation Status Age at Father Level of Service:16005 CO OFFICE/OUTPATIENT ESTABLISHED MOD MDM 30 MIN Normal [facility] Office Visiton 08-08-2023 Follow-up visit [id number] Amina Lim 1945 M Date Provider Department Center 08/08/2023 GeraldinePARI ESCALANTE LEIDY Aguirre Family History Problem Relation Age of Onset Other Father Lupus Father Family Status - Relation Status Age at Father Level of Service:64783 CO OFFICE/OUTPATIENT NEW MODERATE MDM 45-59 MINUTES Normal [facility] 36on 07-17-2023 36 Basia, can you please get this patient scheduled for a telemed with Dr. Escalante ([facility]) next available?? Thank you! 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 Please advise. Thanks. Normal [facility] Office Visiton 06-06-2023 Follow-up visit [id number] Amina Lim 1945 M Date Provider Department Center 06/06/2023 1596TAYLOR CARO Family History Problem Relation Age of Onset Other Father Lupus Father Family Status - Relation Status Age at Father Level of Service:19882 CO OFFICE/OUTPATIENT NEW MODERATE MDM 45-59 MINUTES Normal [facility] XR KNEE DUSTIN 3 Von 03-15-2023 XR KNEE DUSTIN 3 V EXAM: XR KNEE DUSTIN 3 V HISTORY: Osteoarthritis COMPARISON: None. TECHNIQUE: 3 views FINDINGS: There is no acute fracture or dislocation. There are mild degenerative changes. The soft tissues are unremarkable. IMPRESSION: Mild degenerative changes as above. Electronically authenticated by: KELLY LARSON Date: 2023-03-15 12:38 Normal [facility] Covid-19 PCR (CVDTB)on 09-15 SARS-CoV-2 (COVID-19) RNA DHARA+probe Ql (Unsp spec) Not detected Normal NOT DETECTED [facility] [place] [facility] Comment on above: Result Comment: When [...] for this test is supported by the [place] of Health and Human Service's declaration that [...] be used). Performed By: #### C VDTBH ####[facility] [address] [place], [place] [address]VkDr. Xena Pickard INFLUENZA A AND B [facility] 10-03 [facility] SEE BELOW Normal [facility] Comment on above: Result Comment: Nega tive for Flu A protein angiten. Infection due to Flu A cannot be ruled out. Flu A angiten in the sample may be below the detection limit of the test. Performed By: #### I NFLUAB #### [facility] [address] [place], [place] [address] Dr. [address] [facility] [facility] SEE BELOW Normal [facility] Comment on above: Result Comment: Nega tive for Flu B protein antigen. Infection due to Flu B cannot be ruled out. Flu B antigen in the sample may be below the detection limit of the test. Performed By: #### I NFLUAB #### [facility] [address] [place] [address] [address] Xena Pickard INFLUENZA A AG Negative Normal NEGATIVE SEE COMMENT [facility] Comment on above: Performed By: #### I NFLUAB #### [facility] [address] [place] [address] [address] Xena Pickard INFLUENZA B AG Negative Normal NEGATIVE SEE COMMENT [facility] Comment on above: Performed By: #### I NFLUAB #### [facility] [address] [place] [address] Dr. Xena Pickard INTERNAL CONTROLS Within Normal Limits Normal Wi thin Normal Limits [facility] [place] [facility] Comment on above: Performed By: #### I NFLUAB #### [facility] [address] [place] [address] Dr. Xena Pickard INSULINon 09-02-2022 Insulin 14.1 uIU/mL Normal 2.6-24.9 [facility] [place] [facility] Comment on above: Performed By: #### I NSULIN ####[facility] [address] [place] [address]Dr. Xena Pickard PTH INTACTon 09-02-2022 PTH, Intact 14 pg/mL Critically low 15-65 [facility] Comment on above: Performed By: #### P THINT #### [facility] [address] [place] [address] Dr. Xena Pickard CBC AUTO DIFFon 09-01-2022 BASO # 0.0 103/ul Normal 0.0-0.1 [facility] [place] [facility] Comment on above: Performed By: #### C BC #### [facility] [address] [place] [address] Dr. Xena Pickard Basophils/100 WBC (Bld) 0.6 % Normal 0.2-2.0 [facility] [place] [facility] Comment on above: Performed By: #### C BC #### [facility] [address] [place] [address] Dr. Xena Pickard EO # 0.2 103/ul Normal 0.0-0.7 [facility] [place] [facility] Comment on above: Performed By: #### C BC #### [facility] [address] [place] [address] Dr. Xena Pickard Eosinophils/100 WBC (Bld) 2.5 % Normal 0.9-7.0 [facility] Comment on above: Performed By: #### C BC #### [facility] [address] [place] [address] Dr. Xena Pickard Erythrocyte distribution width (RBC) [Ratio] 13.5 % Normal 11.0-15.0 [facility] Comment on above: Performed By: #### C BC #### [facility] [address] [place] [address] Dr. Xena Pickard Hematocrit (Bld) [Volume fraction] 38.3 % Critically low 42.0-54.0 [facility] [place] [facility] Comment on above: Performed By: #### C BC #### [facility] [address] [place] [address] Dr. Xena Pickard Hemoglobin (Bld) [Mass/Vol] 13.0 g/dL Critically low 14.0-18.0 [facility] Comment on above: Performed By: #### C BC #### [facility] [address] [place] [address] Dr. Xena Pickard IG # 0.03 10e3/ul Normal 0.00-0.03 [facility] [place] [facility] Comment on above: Performed By: #### C BC #### [facility] [address] [place] [address] Dr. Xena Pickard IG % 0.4 % Normal 0.0-0.5 [facility] [place] [facility] Comment on above: Performed By: #### C BC #### [facility] [facility] [address] [place] [address] Dr. Xena Pickard LYMPH # 2.2 103/ul Normal 1.2-3.8 [facility] Comment on above: Performed By: #### C BC #### [facility] [address] [place] [address] Dr. Xena Pickard Lymphocytes/100 WBC (Bld) 31.5 % Normal 20.5-60.0 [facility] Comment on above: Performed By: #### C BC #### [facility] [address] [place] [address] Dr. Xena Pickard MANUAL DIFF REQ NO Normal [facility] Comment on above: Performed By: #### C BC #### [facility] [address] [place] [address] Dr. Xena Pickard MCH (RBC) [Entitic mass] 30.5 pg Normal 25.9-34.0 [facility] Comment on above: Performed By: #### C BC #### [facility] [address] [place] [address] Dr. Xena Pickard MCHC (RBC) [Mass/Vol] 33.9 g/dL Normal 29.9-35.2 [facility] Comment on above: Performed By: #### C BC #### [facility] [address] [place] [address] Dr. Xena Pickard MCV (RBC) [Entitic vol] 89.9 fL Normal 80.0-94.0 [facility] Comment on above: Performed By: #### C BC #### [facility] [address] [place] [address] Dr. Xena Pickard MONO # 0.6 103/ul Normal 0.3-0.8 [facility] Comment on above: Performed By: #### C BC #### [facility] [address] [place] [address] Dr. Xena Pickard Monocytes/100 WBC (Bld) 8.2 % Normal 1.7-12.0 [facility] Comment on above: Performed By: #### C BC #### [facility] [address] [place] [address] Dr. Xena Pickard NEUT # 4.0 103/ul Normal 1.4-6.5 [facility] Comment on above: Performed By: #### C BC #### [facility] [address] [place] [address] Dr. Xena Pickard Neutrophils/100 WBC (Bld) 56.8 % Normal 43.0-75.0 [facility] Comment on above: Performed By: #### C BC #### [facility] [address] [place] [address] Dr. Xena Pickard Platelet mean volume (Bld) [Entitic vol] 10.2 fL Normal 9.5-13.5 [facility] Comment on above: Performed By: #### C BC #### [facility] [address] [place] [address] Dr. Xena Pickard PLT 185 103/ul Normal 150-450 [facility] Comment on above: Performed By: #### C BC #### [facility] [address] [place] [address] Dr. Xena Pickard RBC 4.26 106/ul Critically low 4.70-6.10 [facility] Comment on above: Performed By: #### C BC #### [facility] [address] [place] [address] Dr. Xena Pickard WBC 7.1 103/ul Normal 4.0-11.0 [facility] Comment on above: Performed By: #### C BC #### [facility] [address] [place] [address] Dr. Xena Pickard GLYCOHEMOGLOBIN A1Con 2021 ADA RECOMMENDATION SEE BELOW Normal [facility] Comment on above: Result Comment: ADA RECOMMENDED LIMIT 4.0 - 6.0 ADA THERAPEUTIC TARGET < 7.0 ACTION SUGGESTED > 7.0 Performed By: #### A 1C #### [facility] [address] [place] [address] Dr. Xena Pickard Glucose [Mass/Vol] 120 mg/dL Normal [facility] Comment on above: Performed By: #### A 1C #### [facility] [address] [place] [address] Dr. Xena Pickard HbA1c (Bld) [Mass fraction] 5.8 % Normal 4.5-6.2 [facility] Comment on above: Performed By: #### A 1C #### [facility] [address] [place] [address] Dr. Xena Pickard LIPID PROFILEon 09-01-2022 CHOL-HDL RATIO NORM SEE BELOW Normal [facility] Comment on above: Result Comment: 3.3 - 4.4 LOW RISK 4.4 - 7.1 AVERAGE RISK 7.1 - 11.0 MODERATE RISK >11.0 HIGH RISK Performed By: #### L IPID, URIC, CMP #### [facility] [address] [address] [address] Xena Pickard Cholesterol [Mass/Vol] 166 mg/dL Normal <=200 [facility] Comment on above: Performed By: #### L IPID, URIC, CMP #### [facility] [address] [address] [address] Xena Pickard Cholesterol in HDL [Mass/Vol] 52 mg/dL Normal 40-60 [facility] Comment on above: Performed By: #### L IPID, URIC, CMP #### [facility] [address] [address] [address] Xena Pickard Cholesterol in LDL [Mass/Vol] 100.8 mg/dL Normal [facility] Comment on above: Performed By: #### L IPID, URIC, CMP #### [facility] [address] [address] [address] Xena Pickard Cholesterol.total/Chol esterol in HDL [Mass ratio] 3.2 {ratio} Normal [facility] Comment on above: Performed By: #### L IPID, URIC, CMP #### [facility] [address] [address] [address] Xena Pickard HDL NORMAL > or = 60 mg/dl - LO W CARDIOVASCULAR RISK <40 mg/dl - HIGH CARDIOVASCULAR RISK Normal [facility] Comment on above: Performed By: #### L IPID, URIC, CMP #### [facility] [address] [address] [address] Xena Pickard LDL CALC NORMAL SEE BELOW Normal [facility] Comment on above: Result Comment: <100 mg/dl OPTIMAL 100 - 129 mg/dl NEAR OR ABOVE OPTIMAL 130 - 159 mg/dl BORDERLINE HIGH 160 - 189 mg/dl HIGH >190 mg/dl VERY HIGH Performed By: #### L IPID, URIC, CMP #### [facility] [address] [address] [address] Xena Pickard Triglyceride [Mass/Vol] 66 mg/dL Normal <=150 [facility] Comment on above: Performed By: #### L IPID, URIC, CMP #### [facility] [address] [address] [address] Xena Pickard VLDL CALC 13.2 mg/dL Normal [facility] Comment on above: Performed By: #### L IPID, URIC, CMP #### [facility] [id number] Xena Pickard PHOSPHORUSon 09-01-2022 Phosphate [Mass/Vol] 3.3 mg/dL Normal 2.6-4.7 [facility] Comment on above: Performed By: #### P HOS ####[facility] [address] [place], [place] [address]VeDr. Xena Pickard PROF 14(COMP METB)on 022 Albumin [Mass/Vol] 3.9 g/dL Normal 3.4-5.0 [facility] Comment on above: Performed By: #### L IPID, URIC, CMP #### [facility] [address] [address] [address] Xena Pickard Albumin/Globulin [Mass ratio] 1.2 {ratio} Normal [facility] Comment on above: Performed By: #### L IPID, URIC, CMP #### [facility] [address] [address] [address] Xena Pickard ALP [Catalytic activity/Vol] 44 U/L Critically low 46-116 [facility] Comment on above: Performed By: #### L IPID, URIC, CMP #### [facility] [address] [address] [address] Xena Pickard ALT [Catalytic activity/Vol] 38 U/L Normal 16-63 [facility] Comment on above: Performed By: #### L IPID, URIC, CMP #### [facility] [address] [address] [address] Xena Pickard Anion gap [Moles/Vol] 12.3 mmol/L Normal [facility] Comment on above: Performed By: #### L IPID, URIC, CMP #### [facility] [address] [address] [address] Xena Pickard AST [Catalytic activity/Vol] 16 U/L Normal 15-37 [facility] Comment on above: Performed By: #### L IPID, URIC, CMP #### [facility] [address] [place] [address] Dr. Xena Pickard Bilirubin [Mass/Vol] 0.5 mg/dL Normal 0.2-1.0 [facility] Comment on above: Performed By: #### L IPID, URIC, CMP #### [facility] [address] [place] [address] Dr. Xena Pickard Calcium [Mass/Vol] 8.7 mg/dL Normal 8.5-10.1 [facility] Comment on above: Performed By: #### L IPID, URIC, CMP #### [facility] [address] [place] [address] Dr. Xena Pickard Chloride [Moles/Vol] 101 mmol/L Normal 98-107 [facility] Comment on above: Performed By: #### L IPID, URIC, CMP #### [facility] [address] [place] [address] Dr. Xena Pickard CO2 [Moles/Vol] 26.8 mmol/L Normal 21.0-32.0 [facility] Comment on above: Performed By: #### L IPID, URIC, CMP #### [facility] [address] [place] [address] Dr. Xena Pickard Creatinine [Mass/Vol] 1.41 mg/dL Critically high 0.70-1.30 [facility] Comment on above: Performed By: #### L IPID, URIC, CMP #### [facility] [address] [place] [address] Dr. Xena Pickard EGFR-AF PRYDEINIG 59 mL/min/1.73m2 Critically low >=60 [facility] Comment on above: Performed By: #### L IPID, URIC, CMP #### [facility] [address] [place] [address] Dr. Xena Pickard EGFR-NON AF PRYDEINIG 49 mL/min/1.73m2 Critically low >=60 [facility] Comment on above: Performed By: #### L IPID, URIC, CMP #### [facility] [address] [address] [address] Xena Pickard Globulin (S) [Mass/Vol] 3.3 g/dL Normal [facility] Comment on above: Performed By: #### L IPID, URIC, CMP #### [facility] [address] [address] [address] Xena Pickard Glucose [Mass/Vol] 106 mg/dL Normal 74-106 [facility] Comment on above: Performed By: #### L IPID, URIC, CMP #### [facility] [address] [address] [address] Xena Pickard Potassium [Moles/Vol] 4.1 mmol/L Normal 3.5-5.1 [facility] Comment on above: Performed By: #### L IPID, URIC, CMP #### [facility] [address] [place] [address] Dr. Xena Pickard Protein [Mass/Vol] 7.2 g/dL Normal 6.4-8.2 [facility] Comment on above: Performed By: #### L IPID, URIC, CMP #### [facility] [address] [address] [address] Xena Pickard Sodium [Moles/Vol] 136 mmol/L Normal 136-145 [facility] Comment on above: Performed By: #### L IPID, URIC, CMP #### [facility] [address] [address] [address] Xena Pickard Urea nitrogen [Mass/Vol] 33.0 mg/dL Critically high 7.0-18.0 [facility] Comment on above: Performed By: #### L IPID, URIC, CMP #### [facility] [address] [address] [address] Xena Pickard Urea nitrogen/Creatinine [Mass ratio] 23.4 mg/mg Normal [facility] Comment on above: Performed By: #### L IPID, URIC, CMP #### [facility] [address] [address] [address] Xena Pickard URIC ACID SERUMon 09-01-2022 Urate [Mass/Vol] 5.1 mg/dL Normal 3.5-7.2 [facility] Comment on above: Performed By: #### L IPID, URIC, CMP #### [facility] [address] [place] [address] Dr. Xena Pickard URINE T PROTEIN CREAT RATIOo n 09-01-2022 UR TOTAL PROTEIN <6.0 Normal <=12.0 [facility] Comment on above: Performed By: #### U RTPCR #### [facility] [address] [address] [address] Xena Pickard URINE CREAT 36.48 mg/dL Normal 20.00-300. 00 [facility] Comment on above: Performed By: #### U RTPCR #### [facility] [address] [address] [address] Xena Pickard CNNURSEon 01-07-2021 CNNURSE Nurse Visit (COVAMD) -- AMINA LIM ([id number]) 1945 M Date Time Provider Department 01/07/21 NEIL PIERCE (LORELEI) COVROCCO During your visit today, we recorded the following information about you: Allergies As of Date: 01/07/2021 (No Known Allergies) Date Reviewed: 10/07/2019 Reviewed by: Sharon (Rn) DOLORES Nunn - Fully Assessed Order(s):MVP Vault SARS-COV-2 VACCINE 2D DOSE APPT [[id number]] Order #: [id number] Prescriptions as of 01/07/2021 Sig: DOCUSATE SODIUM [...] 1 tablet by mouth once d* OMEGA 0-SWS-QSP-FISH OIL 1,00* Take 1 g by mouth [...] [E78.49] 08/21/2017 Shoulder pain [M25.519] 07/16/2019 Encounter Status:[facility] Lab Reportson 07-01-2020 Lab Reports [id number]:[address] [facility] Lab Reports [id number]:[address] [facility] Coding Summary.on 11-27-2019 Coding Summary. 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 History and Physicalon 11-26 History and [...] patients. Althea Koroma M.D. lkr Dictated: 11/25/2019 #[id number] Typed 11/25/2019 #[id number] cc: Althea Koroma M.D. [facility] Comment on above: Result Comment: Elec tronically Signed By: Althea Koroma MD\.br\Date and Time Signed: 11/26/19 16:05 EST Main OR Intraoperative Recor don 11-26-2019 Main OR Intraoperative Record IntraOp Document Type FT Summary Primary Physician: Althea Koroma MD Finalized Date/Time: 11/26/19 13:40:27 Pt. Name: AMINA LIM Adriano Benavidez/Sex: 1945 Male Med Rec #: [id number] Physician: Althea Koroma MD Financial #: [id number] Pt. Type: A Room/Bed: AS0A/ Admit/Disch: 11/25/19 12:23:56 - 11/25/19 15:20:00 Institution: Case Times FT Entry 1 Patient Times In Room 11/25/19 14:12:00 Out Room 11/25/19 14:44:00 Procedure Times Start 11/25/19 14:22:00 Stop 11/25/19 14:42:00 Anesthesia Times Last Modified By: Estella BERNAL, Cortney SINGH 11/25/19 14:43:21 General Comments: 11/26/2019 Chart opened to review and send charges Anders Clayton SENIOR EDITOR Case Attendance FT Entry 1 Entry 2 [...] LENS(Right) Comments Last Modified By: Estella RN, MELIAOR, Estella BERNAL, MELIAOR, Estella BERNAL, MELIAOR, Cortney 11/25/19 Cortney 11/25/19 Cortney 11/25/19 14:43:22 14:43:22 14:43:22 Entry 4 Case Attendee SAMANTHA Soria RN, Ruthann Role Performed Product Support Specialist - Primary Time In 11/25/19 14:12:00 Time Out 11/25/19 14:44:00 Procedure CATARACT EXTRACTION W/ INTRAOCULAR LENS(Right) Comments Last Modified By: Estella BERNAL, SAMANTHA, Cortney 11/25/19 14:43:22 Perioperative Protocols FT Pre-Care Text: [...] Time Out Ga YE, Althea Rowe, Given Participants Sam SANCHEZ, Jarett Stevens RN, Yaquelin Rowe, Estella BERNAL, MELIAOR, Cortney Time Out Complete 11/25/19 14:21:00 Outcomes Met? [...] safely administered during the perioperative period For [facility] please see scanned medication reconcilliation form for medications used at the field during the procedure. Implant Log FT Pre-Care Text: Records devices implanted during the operative or invasive procedure Entry 1 Procedure CATARACT EXTRACTION W/ Implant/Explant Implant INTRAOCULAR LENS(Right) Implant Identification FT Description HIMANSHU IOL [id number] SOFPORT Lot Number [id number] SIZE 20.5 [[id number] 20.5][F] Social Work Msw FT-[employer]CH [employer]OM[employer] Catalog ?# [id number] 20.5[F] Expiration Date 01/14/24 Unique Device [id number] Identifier (KATHLEEN) Human Readable {01}[id number] Machine Readable [id number] Barcode Barcode Usage Data FT Implant Site [...] Clayton CST 11/26/19 13:[address] [facility] Operative Reporton 0 Operative Report Date of Surgery: 11/25/2019 SURGEON: Althea M. Ga, M.D. PREOPERATIVE DIAGNOSES: 1. Cataract, right eye [...] to the surface of the globe. A FiFully manometer was positioned and set at 20 [...] condition. Althea Koroma M.D. lkr Dictated: 11/25/2019 #[id number] Typed: 11/26/2019 #[id number] cc: Althea Koroma M.D. [facility] Comment on above: Result Comment: Elec tronically Signed By: Althea Koroma MD\.br\Date and Time Signed: 11/26/19 16:05 EST Inpatient Patient Summaryon 11-25-2019 Inpatient Patient Summary [place] [id number] [facility] Clinical Discharge Instructions PERSON INFORMATION Name: AMINA LIM [facility]#:[id number] PHYSICIANS Admitting Physician: Althea Koroma MD Attending Physician: Althea Koroma MD PCP: Narciso Bullock MD Discharge Diagnosis: Cataract; Floppy iris syndrome Comment: PATIENT EDUCATION INFORMATION Instructions: Medication Leaflets: Follow up: With: Address: When: Althea Koroma [address] [place], [place] [id number] Business (1) Comments: Call physician if symptoms worsen Keep scheduled appointment Type Location Start Finish State URO Office Visit [facility] 02/10/2020 9:15 AM 02/10/2020 9:30 AM Confirmed [...] Mouth every day. Comment: Normal [facility] Main OR PACU II Recordon Main OR PACU II Record PACU Phase II Doc ument Type FT Summary Primary Physician: Althea Koroma MD Finalized Date/Time: 11/25/19 15:24:08 Pt. Name: AMINA LIM Adriano /Sex: 1945 Male Med Rec #: [id number] Physician: Althea Koroma MD Financial #: [id number] Pt. Type: A Room/Bed: [place] [address] Admit/Disch: 11/25/19 12:23:56 - 11/25/19 15:20:00 Institution: [...] By: Emy Thomas RN 11/25/19 15:24 Normal [facility] Main OR Preoperative Recordo n 11-25-2019 Main OR Preoperative Record Holding Area Document Type FT Summary Primary Physician: Althea Koroma MD Finalized Date/Time: 11/25/19 12:48:49 Pt. Name: AMINA LIM /Sex: 1945 Male Med Rec #: [id number] Physician: Althea Koroma MD Financial #: [id number] Pt. Type: A Room/Bed: [facility]/ Admit/Disch: 11/25/19 12:23:56 - Institution: Case [...] James RN 11/25/19 12:[address] [facility] Patient Education - Texton 0 11-25-2019 Patient Education - Text Normal [facility] Basic Metabolic Panlon 07-17 Anion gap [Moles/Vol] 10 mmol/L Normal 0-15 [facility] Calcium [Mass/Vol] 8.4 mg/dL Low 8.5-10.5 [facility] Chloride [Moles/Vol] 106 mmol/L Normal 98-110 [facility] CO2 [Moles/Vol] 21 mmol/L Low 23-32 [facility] Creatinine [Mass/Vol] 1.23 mg/dL Normal 0.7-1.4 [facility] Glucose [Mass/Vol] 176 mg/dL High 65-100 [facility] Potassium [Moles/Vol] 4.1 mmol/L Normal 3.5-5.0 [facility] Sodium [Moles/Vol] 137 mmol/L Normal 135-146 [facility] Urea nitrogen [Mass/Vol] 22 mg/dL Normal 8-25 [facility] CASE MANAGEMon 07-17-2019 CASE MANAGEM HNO ID: [id number] Author: Nichelle Henao (Sw) Service: ? Author Type: Credit Collections Clerk Type: Care Mgt Progress Note Filed: 07/17/2019 [...] 17, 2019 TIME: 11:04 AM PAGER/CONTACT #: [phone] Normal [facility] CASE MGT INIT Gomez 2018 CASE MGT INIT GLENN HNO ID: [id number] Author: Nichelle Henao (Sw) Service: ? 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 No SOCIAL: Living Arrangement: Home Lives With: Spouse Financial Resources: Retired Primary Contact: Extended Emergency Contact Information Primary Emergency Contact: Tanja Lim Address: [address] [place] [address] Mobile Relation: Spouse Supportive: Yes Other Important [...] 0 I feel financially burdened by my [id number]-gzjzqr expenses for my prescription medication: Disagree completely [...] at home with . to assist at md. Plans home today. No skilled needs SIGNATURE: WILSON Carcamo PATIENT NAME: Amina Lim DATE: July 17, 2019 TIME: 11:02 AM PAGER/CONTACT #: [phone] Normal [facility] CBCon 07-17-2019 Absolute nRBC <0.01 Normal <0.01 [facility] Erythrocyte distribution width (RBC) [Ratio] 13.2 % Normal 11.5-15.0 [facility] Hematocrit (Bld) [Volume fraction] 32.9 % Low 39.0-51.0 [facility] Hemoglobin (Bld) [Mass/Vol] 11.0 g/dL Low 13.0-17.0 [facility] MCH (RBC) [Entitic mass] 30.6 pG Normal 26.0-34.0 [facility] MCHC (RBC) [Mass/Vol] 33.4 g/dL Normal 30.5-36.0 [facility] MCV (RBC) [Entitic vol] 91.6 fL Normal 80.0-100.0 [facility] Platelet mean volume (Bld) [Entitic vol] 10.4 fL Normal 9.0-12.7 [facility] Platelets (Bld) [#/Vol] 188 10*3/uL Normal 150-400 [facility] RBC (Bld) [#/Vol] 3.59 10*6/uL Low 4.20-6.00 [facility] WBC (Bld) [#/Vol] 16.37 10*3/uL High 3.70-11.00 [facility] NURSING PROGon 07-17-2019 NURSING PROG HNO ID: [id number] Author: Prudence (Rn) DOLORES Bowen Service: Nursing Author Type: Registered Nurse Type: Nursing Progress Note Filed: 07/17/2019 1:33 PM Note Text: Nursing Progress Note Patient Name: Amina Lim Patient Location: [place] [address] [id number] Daily Note:.Assumed care of patient, assessment completed, [...] note was completed by: Prudence Bowen RN [facility] PROGRESSon 07-17-2019 PROGRESS HNO ID: [id number] Author: Sky Echols Service: General Internal Medicine [...] of care with Dr. Echols. Yeny Walters, LULÚ.CUSTOMER CARE TEAM COACH July 17, 2019 10:36 AM I have seen the patient and verified the exam. I have personally reviewed all labs and imaging results. I have discussed with the DATA CONSULTANT and I have participated in montelongo components. I agree with the note as documented with additional comments if needed. The assessment and plan as outlined are reflection of our discussion. Sky Echols MD July 17, 2019 [facility] PROGRESS HNO ID: [id number] Author: Rolly (Raquel Osullivan MD Service: Orthopaedic [...] (U/L) Date Value 07/27/2009 29 URINALYSIS Specific [place], Ur Date Value Ref Range Status 08/24/2009 [...] Osullivan MD Resident Physician PGY-2 Orthopaedic Surgery 35283 For urgent issues or if after 5:00 PM/weekends, please page [phone]-[phone] ([phone]) Normal [facility] THERAPY NTon 07-17-2019 THERAPY NT HNO ID: [id number] Author: Roseanne (OtTaina Jenkins Service: Occupational Therapy Author Type: Occupational Therapist Type: Therapy (PT/OT/Speech/Resp) Filed: 07/17/2019 3:00 PM Note Text: Occupational Therapy Evaluation SERVICE DATE: 07/17/2019 SERVICE TIME: 50 to 1020 [address]: [address] Recommended Discharge Disposition: Home Anticipated Discharge Needs: [...] of daily living (ADL) Interventions Provided: Evaluation;Self Chcf Management (45280) $ Evaluation-Low (30766) Billed Units: 1 unit Self Chcf Management (40708) Treatment Minutes: 23 2 units Skilled Intervention(s): [...] DATE: July 17, 2019 TIME: 2:46 PM [facility] THERAPY NT HNO ID: [id number] Author: Roseanne Jenkins Service: Occupational Therapy Author Type: Occupational Therapist Type: Therapy (PT/OT/Speech/Resp) Filed: 07/17/2019 3:08 PM Note Text: Occupational Therapy Treatment SERVICE DATE: 07/17/2019 SERVICE TIME: 1155 to 1240 ROOM: [place] [address] Recommended Discharge Disposition: Home Anticipated Discharge Needs: [...] daily living (ADL) Interventions Provided: Therapeutic Exercise (12558);Self Chcf Management (63792) Therapeutic Exercise (78759) Treatment Minutes: 10 1 unit Skilled Intervention(s): Instruction in therapeutic exercise Verbal and tactile cuing provided Facilitation of muscle control, optimal recruitment and alignment Education in PROM shoulder to 90 degrees FF passively and work toward limit of 120 degrees. Spouse able to perform PROM to 90 degrees as well Self Chcf Management (05304) Treatment Minutes: 35 2 units Skilled Intervention(s): [...] DATE: July 17, 2019 TIME: 3:04 PM [facility] THERAPY NT HNO ID: [id number] Author: Floresita Ray Service: Physical Therapy Author Type: Physical Therapist Type: Therapy (PT/OT/Speech/Resp) Filed: 07/17/2019 1:21 PM Note Text: PHYSICAL THERAPY MISSED VISIT SERVICE DATE: 07/17/2019 SERVICE TIME: 1320 to 1320 ROOM: [place] [id number] (EU OR POST OP) Attempted Evaluation. Patient not seen due to No Skilled Needs. Patient's post op needs can be met by OT. Pt does not have any functional mobility impairment. Will discontinue PT order. SIGNATURE: Floresita Ray, PT PATIENT NAME: Amina Lim DATE: July 17, 2019 TIME: 1:21 PM [facility] ALLIED HEALTHon 07-16-2019 ALLIED HEALTH HNO ID: [id number] Author: Armen Redmond (Rt) Service: Radiology Author Type: Material Expediter Type: Allied Health Filed: 07/16/2019 3:56 PM [...] RT Elijah July 16, 2019 3:56 PM [facility] ALLIED HEALTH HNO ID: [id number] Author: Armen Redmond (Rt) Service: Radiology Author Type: Material Expediter Type: Allied Health Filed: 07/16/2019 3:47 PM [...] RT Elijah July 16, 2019 3:47 PM [facility] ANES Gerry 07-16-2019 ANES POST HNO ID: [id number] Author: Jordan Desai Service: Anesthesiology Author Type: Anesthesiologist Type: Anesthesia PostOp Filed: 07/16/2019 5:30 PM Note Text: POST ANESTHESIA EVALUATION NOTE SERVICE DATE: 07/16/2019 SERVICE TIME: 5:30 PM : 1945 Vitals: 07/16/19 1050 07/16/19 1519 07/16/191705 Temp: 36.5 ?C (97.7 ?F) 36.6 ?C (97.9 ?F) 36.5 ?C (97.7 ?F) 07/16/19 16107/16/19 16307/16/19164407/16/19 170 BP: 146/78 141/74 132/72 141/70 07/16/19 1615 07/16/19 1630 07/16/19 16407/16/19 170 Pulse: 62 61 65 71 07/16/19 16107/16/19 16307/16/19 1645 07/16/19 1706 Resp: 18 16 27 [...] 16, 2019 TIME: 5:30 PM PAGER/CONTACT #: [phone] [facility] ANES PREOPon 07-16-2019 ANES PREOP HNO ID: [id number] Author: Jordan Desai Service: Anesthesiology Author Type: [...] Take 1 tablet by mouth once daily. Dqihn-2-JJV-EPA-Fish Oil (FISH OIL) 1,000 mg (120 mg-180 mg) cap Take 1 g by mouth once daily. Lecithin 1,200 mg cap Take 1 capsule by mouth once daily. lovastatin (MEVACOR) 20 mg tablet Take 20 mg by mouth daily at bedtime. multivitamin (MULTIPLE VITAMINS) tablet Take 1 tablet by mouth once daily. Saw [place] 160 mg capsule Take 160 mg by [...] ringers infusion 5-30 mL/hr INTRAVENOUS CONTINUOUS Mani Huang (Pa) II - ceFAZolin iv piggyback 2 g [...] DATE: July 16, 2019 TIME: 10:51 AM [facility] CONSULTon 07-16-2019 CONSULT HNO ID: [id number] Author: Yeny Walters Service: General Internal Medicine [...] by mouth once daily. Disp: Rfl: 07/05/2019 Twzby-1-SPW-EPA-Fish Oil (FISH OIL) 1,000 mg (120 mg-180 [...] mouth once daily. Disp: Rfl: 07/05/2019 Saw [place] 160 mg capsule Take 160 mg by [...] Pulse: 62 61 65 71 Resp: 18 18 Temp: 36.5 ?C (97.7 ?F) TempSrc: [...] the care of your patient. Yeny Walters APRN.CUSTOMER CARE TEAM COACH July 16, 2019 5:46 PM Normal [facility] OPERATIVE NOon 07-16-2019 OPERATIVE NO HNO ID: [id number] Author: Anshu Thomas Service: Orthopaedic Surgery Author Type: Physician Type: Operative Report Filed: 07/16/2019 3:21 PM Note Text: [place] [address] [place] OPERATIVE REPORT NAME: Amina Adriano [facility] #: [id number] DATE: 07/16/2019 (1:12pm-3:12pm) AGE: 74 SURGEON 1: Anshu Thomas M.D. DENTAL TECHNOLOGY ADVISOR: 1. Brain Kay M.D. 2. Rolly Osullivan [...] INDICATIONS: The patient is a 74 year olduzg-vujh-bol right-hand dominant white male who has a [...] a #2 Ticron suture passed in a yrdsxb-cm-qjuvo fashion. Following this, all retractors were removed, [...] none COMPLICATIONS: none apparent Anshu Thomas M.D. [facility] XR SHOULDER SPECIFY 1V RTon 07-16-2019 [...] on Jul 16 2019 3:57PM EST [id number] [facility] NURSING PROGon 06-27-2019 NURSING PROG HNO ID: [id number] Author: Norma Sharp) DOLORES Adorno Service: Nursing [...] glucose 114 06/25/19 TANDS 30 day in [facility] 03/14/17 [place] Imaging Within Last 12 Months: 06/25/19 ct shoulder in [facility] 12/13/18 xr shoulder 3v Cardiac Testin06/25/19 prelim ekg in [facility] Last Menstrual Period: NA BMI Percentile (PEDS): N/A Risk Assessment: N/A Anesthesia Review: N/A Narrative: N/A Pre-op Considerations: PER [facility] HX CLARENCE- CPAP at night History of Prostate CA with Radiation and insertion of Seeds CKD follows with Nephrology Chart Check: IN PROGRESS NEED FINAL EKG Marialuisa Cates RN June 27, 2019 1:24 PM July 15, 2019 8:38 AM Final EKG from 06/25/19--Sinus allegra (57bpm) Norma Adorno RN Normal [facility] Type and SCR (30D)on 019 ABO/RH(D) Positive Normal [facility] HOSPon 12-13-2018 HOSP Patient:Amina Lim MRN: Height:5' [...] (VITAMIN C) 1,000 mg tablet [employer]AL Lwpfr-9-XKY-EPA-Fish Oil (FISH OIL) 1,000 mg (120 mg-180 mg) cap Lecithin 1,200 mg cap lovastatin (MEVACOR) 20 mg tablet multivitamin (MULTIPLE VITAMINS) tablet Saw [place] 160 mg capsule vitamin b complex tab [...] Low POTA* 4.2 mmol/L 06/25/2019 5.1 3.7 BRYON* 38.5 % 06/25/2019 51.0 39.0 No progress notes entered within the past 30 days [facility] XR SHLDR >/=3V AP/RADHA AP/OTH R [...] on Dec 10 2018 9:43AM EST [id number] [facility] XR SHLDR >/=3V AP/RADHA AP/OTH R [...] on Dec 10 2018 9:37AM EST [id number] [facility] Vital Signs Date Time Vital Sign Value Performing Clinician Facility 10-22-2024 10:0500 Body height 179.1 cm Lyndsay Salgado DO Work Phone: [facility] 10-22-2024 10:21-0500 Body mass index (BMI) [Ratio] 28.84 kg/m2 Lyndsayakiko Salgado DO Work Phone: [facility] 01-07-2025 10:21-0500 Body weight 92.5 kg Lyndsay Maditz DO Work Phone: [facility] 10-22-2024 10:21-0500 Diastolic blood pressure 69 mm[Hg] Lyndsay Maditz DO Work Phone: [facility] 10-22-2024 10:21-0500 Heart rate 64 /min Lyndsay Maditz DO Work Phone: [facility] 10-22-2024 10:21-0500 Systolic blood pressure 130 mm[Hg] Lyndsay Maditz DO Work Phone: [facility] 08-13-2024 13:14-0400 Body height 177.8 cm Queta MOSELEY Work Phone: [facility] 08-13-2024 13:14-0400 Body mass index (BMI) [Ratio] 29.96 kg/m2 Queta MOSELEY Work Phone: [facility] 08-13-2024 13:14-0400 Body weight 94.71 kg Queta MOSELEY Work Phone: [facility] 05-16-2023 09:10-0400 Body height 179.1 cm Lyndsay Maditz DO Work Phone: [facility] 05-16-2023 09:10-0400 Body weight 92.53 kg Lyndsay Maditz DO Work Phone: [facility] 05-16-2023 09:10-0400 Diastolic blood pressure 77 mm[Hg] Lyndsay Maditz DO Work Phone: [facility] 05-16-2023 09:10-0400 Heart rate 43 /min Lyndsay Maditz DO Work Phone: [facility] 05-16-2023 09:10-0400 Systolic blood pressure 171 mm[Hg] Lyndsay Maditz DO Work Phone: [facility] 09-06-2022 11:20-0500 Body height 177.8 cm Yudith Rubin Other [facility] Other 09-06-2022 11:20-0500 Body mass index (BMI) [Ratio] 29.9 kg/m2 Yudith Rubin Other [facility] Other 09-06-2022 11:20-0500 Body temperature 96.5 [degF] Yudith Rubin Other [facility] Other 09-06-2022 11:20-0500 Body weight 94.53 kg Yudith Rubin Other [facility] Other 09-06-2022 11:20-0500 Diastolic blood pressure 88 mm[Hg] Yudith Rubin Other [facility] Other 09-06-2022 11:20-0500 Respiratory rate 18 /min Yudith Rubin Other [facility] Other 09-06-2022 11:20-0500 SaO2% (BldA) [Mass fraction] 98 % Yudith Rubin Other [facility] Other 09-06-2022 11:20-0500 Systolic blood pressure 159 mm[Hg] Yudith Rubin Other [facility] Other 09-22-2021 11:20-0500 Body height 177.8 cm Ileana Earl Other [facility] Other 09-22-2021 11:20-0500 Body mass index (BMI) [Ratio] 30.93 kg/m2 Ianjorden Mady Other [facility] Other 09-22-2021 11:20-0500 Body temperature 96.4 [degF] Ileana Earl Other [facility] Other 09-22-2021 11:20-0500 Body weight 97.8 kg Ileana Earl Other [facility] Other 09-22-2021 11:20-0500 Diastolic blood pressure 75 mm[Hg] Ileana Earl Other [facility] Other 09-22-2021 11:20-0500 Respiratory rate 18 /min Ileana Earl Other [facility] Other 09-22-2021 11:20-0500 SaO2% (BldA) [Mass fraction] 97 % Ileana Earl Other [facility] Other 09-22-2021 11:20-0500 Systolic blood pressure 119 mm[Hg] Ileana Earl Other [facility] Other Encounters Encounter Date Encounter Type Care Provider Facility Start: 10-22-2024 End: 10-22-2024 ambulatory NARCISO BULLOCK Facility:[facility] Start: 10-22-2024 End: 10-22-2024 Patient encounter procedure Lyndsay Salgado DO Work Phone: [facility] Comment on above: Stage 3a chronic kid per disease (HCC) (Primary Dx); Anemia of renal disease; Secondary renal hyperparathyroidism (HCC); Primary hypertension; SVT (supraventricular tachycardia) (HCC) Start: 10-18-2024 End: 10-18-2024 ambulatory Giacomo Carmichael PTA [facility] Comment on above: Acute postoperative pain of left knee (Primary Dx); S/P total knee replacement, left Start: 10-17-2024 End: 10-17-2024 Telephone encounter Cassidy Arita DO Work Phone: [facility] Start: 10-08-2024 End: 10-08-2024 ambulatory Shirlene Blakely PT Work Phone: [facility] Comment on above: Acute postoperative pain of left knee (Primary Dx); S/P total knee replacement, left Start: 10-03-2024 End: 10-03-2024 Bamboo flowsheet Queta Tilley PA Work Phone: [facility] Start: 10-03-2024 End: 10-03-2024 Bamboo flowsheet Queta Tilley PA Work Phone: [facility] Start: 10-03-2024 End: 10-03-2024 Postop follow up visit related to original px Queta Tilley PA Work Phone: [facility] Comment on above: S/P TKR (total knee replacement), left (Primary Dx); Acute pain of left knee Start: 10-03-2024 End: 10-03-2024 ambulatory Shirlene Blakely PT Work Phone: [facility] Comment on above: Acute postoperative pain of left knee (Primary Dx); S/P total knee replacement, left Start: 09-30-2024 End: 09-30-2024 ambulatory Shirlene Blakely PT Work Phone: [facility] [...] Start: 09-23-2024 End: 09-23-2024 Bamboo flowsheet Shirlene Blakely PT Work Phone: [facility] Start: 09-23-2024 End: 09-23-2024 Bamboo flowsheet Shirlene Blakely PT Work Phone: [facility] Start: 09-23-2024 End: 09-23-2024 ambulatory Shirlene Blakely PT Work Phone: [facility] Comment on above: Acute postoperative pain of left knee (Primary Dx); S/P total knee replacement, left Start: 09-18-2024 End: 09-18-2024 Bamboo flowsheet Giacomo Hisey [employer] [facility] Start: 09-18-2024 End: 09-18-2024 Bamboo flowsheet Giacomo Jonesey [employer] [facility] Start: 09-18-2024 End: 09-18-2024 ambulatory Giacomo Carmichael [employer] [facility] Comment on above: S/P [...] Start: 09-09-2024 End: 09-09-2024 Bamboo flowsheet Roseanne Anders Sousa PT Work Phone: [facility] Start: 09-05-2024 End: 09-05-2024 Bamboo flowsheet Queta Tilley PA Work Phone: [facility] Start: 09-05-2024 End: 09-05-2024 Bamboo flowsheet Queta Tilley PA Work Phone: [facility] Start: 09-05-2024 End: 09-05-2024 Postop follow up visit related to original px Queta Tilley PA Work Phone: [facility] Comment on above: S/P TKR (total knee replacement), left (Primary Dx); Post-operative pain Start: 09-05-2024 End: 09-05-2024 ambulatory QUETA TILLEY Not Available Start: 08-29-2024 End: 08-30-2024 Refill José Manuel Wylie DATA CONSULTANT Work Phone: [facility] Comment on above: Post-operative pain Start: 08-21-2024 End: 08-21-2024 Refill José Manuel Wylie DATA CONSULTANT Work Phone: [facility] Comment on above: Post-operative pain (Primary Dx) Start: 08-20-2024 End: 08-20-2024 Orders Only Queta MOSELEY Work Phone: [facility] Comment on above: Encounter for other preprocedural examination Start: 08-20-2024 End: 08-20-2024 Patient encounter status Queta MOSELEY Work Phone: [facility] Start: 08-14-2024 End: 08-14-2024 Telephone encounter Jr. El C Stepanic DO Work Phone: [facility] Comment on above: Surgery Start: 08-13-2024 End: 08-13-2024 ambulatory QUETA TILLEY [facility] Start: 08-13-2024 Encounter for other preprocedural examination QUETAHAILE TILLEY [facility] Start: 08-13-2024 End: 08-13-2024 External Result Encounter Queta Tilley PA Work Phone: [facility] External Department Unsolicited Start: 08-13-2024 End: 08-13-2024 External Result Encounter Queta Tilley PA Work Phone: [facility] External Department Unsolicited Start: 08-13-2024 End: 08-13-2024 Orders Only Queta Tilley PA Work Phone: [facility] Comment on above: Encounter for other preprocedural examination Start: 08-13-2024 End: 08-13-2024 Patient encounter status Queta Tilley PA Work Phone: [facility] Start: 08-13-2024 End: 08-13-2024 Patient encounter procedure Queta Tilley PA Work Phone: [facility] Comment on above: Preop examination (P rimary Dx); Primary osteoarthritis of left knee; Eczema, unspecified type Start: 08-13-2024 End: 08-13-2024 Preprocedural examination done Queta Tilley PA Work Phone: [facility] Start: 08-13-2024 End: 08-13-2024 ambulatory QUETA TILLEY Not Available Start: 08-07-2024 End: 08-07-2024 Carlos Matos Stepjayce DO Work Phone: [facility] Start: 08-07-2024 End: 08-07-2024 Bamaaron Matos Stepjayce DO Work Phone: [facility] Start: 08-07-2024 End: 08-07-2024 ambulatory EL GONSALEZ Not Available Start: 08-07-2024 End: 08-07-2024 Office outpatient visit 25 minutes Jr. El Matos Stepanic DO Work Phone: [facility] Comment on above: Acute pain of right knee (Primary Dx); History of right knee joint replacement; Primary osteoarthritis of left knee Start: 06-26-2024 End: 06-26-2024 Bamboo flowsheet JrMalena Matos Stepanic DO Work Phone: [facility] Start: 06-26-2024 End: 06-26-2024 Bamboo flowsheet Jr. El Matos Stepanic DO Work Phone: [facility] Start: 06-26-2024 End: 06-26-2024 Postop follow up visit related to original px Jr. El Matos Stepanic DO Work Phone: [facility] Comment on above: S/P TKR (total knee replacement), right (Primary Dx); Primary osteoarthritis of left knee Start: 06-26-2024 End: 06-26-2024 ambulatory EL GONSALEZ Not Available Start: 05-16-2024 End: 05-16-2024 ambulatory SHIRLENE BLAKELY Not Available Start: 05-15-2024 End: 05-15-2024 ambulatory QUETA TILLEY Not Available Start: 05-14-2024 End: 05-14-2024 ambulatory GIACOMO CARMICHAEL Not Available Start: 05-08-2024 End: 05-08-2024 ambulatory BONILLA HOWARD Not Available Start: 05-06-2024 End: 05-06-2024 ambulatory AMEENA LAWSON Not Available Start: 05-01-2024 End: 05-01-2024 ambulatory BONILLA HOWARD Not Available Start: 04-29-2024 End: 04-29-2024 ambulatory BONILLA HOWARD Not Available Start: 04-26-2024 End: 04-26-2024 ambulatory AMEENA LAWSON Not Available Start: 04-24-2024 End: 04-24-2024 ambulatory AMEENA LAWSON Not Available Start: 04-22-2024 End: 04-22-2024 ambulatory SHIRLENE BLAKELY Not Available Start: 04-17-2024 End: 04-17-2024 ambulatory QUETA TILLEY Not Available Start: 03-20-2024 End: 03-20-2024 ambulatory SHIRLENE BLAKELY Not Available Start: 03-18-2024 End: 03-18-2024 Patient encounter procedure MD Narciso Bullock Work Phone: [facility] Work Phone: Start: 03-18-2024 End: 03-18-2024 ambulatory MD Narciso Bullock Work Phone: [facility] Work Phone: Start: 03-18-2024 Encounter for other preprocedural examination Queta Tilley [facility] Start: 03-18-2024 End: 03-18-2024 ambulatory QUETA TILLEY Not Available Start: 02-02-2024 End: 02-02-2024 ambulatory EL GONSALEZ Not Available Start: 11-14-2023 End: 11-14-2023 ambulatory [facility] Start: 10-02-2023 End: 10-02-2023 ambulatory [facility] Start: 08-08-2023 End: 08-08-2023 ambulatory [facility] Start: 06-06-2023 End: 06-06-2023 ambulatory [facility] Start: 05-24-2023 ambulatory No Pcp LULÚ Frank Start: 05-16-2023 End: 05-16-2023 Patient encounter procedure Lyndsay Salgado Work Phone: [facility] Comment on above: Chronic kidney disea se, unspecified CKD stage (Primary Dx); Bradycardia; Generalized pain; Anemia of renal disease; Primary hypertension Start: 03-15-[address] NARCISO BULLOCK . Facili ty:[facility] Start: 10-03-2022 End: 10-03-[address] NARCISO BULLOCK . Facility:[facility] Start: 09-06-2022 End: 09-06-2022 ambulatory Yudith Caryn Other [facility] Other Start: 09-06-2022 Office outpatient vi sit 15 minutes Yudith Rubin [facility] Start: 09-01-2022 End: 09-02-[address] NARCISO BULLOCK . Facility:[facility] Start: 09-01-2022 End: 09-02-[address] NARCISO BULLOCK . Facility:[facility] Start: 09-22-2021 End: 09-22-2021 ambulatory Ileana Earl Other [facility] Other Start: 09-22-2021 Office outpatient vi sit 15 minutes Ileana Mady [facility] Start: 12-10-2018 End: 12-10-2018 Patient encounter procedure [facility] Procedures Date Procedure Procedure Detail Performing Clinician Start: 10-03-2024 Radiologic examinati on knee 1/2 views Queta MOSELEY Work Phone: Start: 08-13-2024 Thromboplastin time partial plasma/whole blood Queta MOSELEY Work Phone: Start: 09-01-[address] EH BULLOCK . Comment on above: Performed By: #### P [facility] #### [facility] [address] [place] [address] Dr. Xena Pickard Start: 06-25-2019 Antibody screen History of operative procedure on knee History of right knee joint replacement Jr. El Ruiz DO Work Phone: Plan of Treatment Date Care Activity Detail Author Start: 08-13-2027 Diabetes Screening Diabetes Screenin g [facility] Start: 10-16-2025 End: 01-15-2026 25-hydroxyvitamin D3 [Mass/volume] in Serum or Plasma VITAMIN D 25 HYDROXY Lab Routine Stage 3a chronic kidney disease (HCC) Expected: 10/16/2025, Expires: 01/15/2026 [facility] Comment on above: Expected: 10/16/2025 , Expires: 01/15/2026 Start: 10-16-2025 End: 01-15-2026 CBC panel - Blood by Automated count COMPLETE BLOOD COUNT Lab Routine Stage 3a chronic kidney disease (HCC) Expected: 10/16/2025, Expires: 01/15/2026 [facility] Comment on above: Expected: 10/16/2025 , Expires: 01/15/2026 Start: 10-16-2025 End: 01-15-2026 Parathyrin.intact [Mass/volume] in Serum or Plasma PTH INTACT Lab Routine Stage 3a chronic kidney disease (HCC) Expected: 10/16/2025, Expires: 01/15/2026 [facility] Comment on above: Expected: 10/16/2025 , Expires: 01/15/2026 Start: 10-16-2025 End: 01-15-2026 Protein/Creatinine [Mass Ratio] in Urine PROTEIN / CREATININE RATIO Lab Routine Stage 3a chronic kidney disease (HCC) Expected: 10/16/2025, Expires: 01/15/2026 [facility] Comment on above: Expected: 10/16/2025 , Expires: 01/15/2026 Start: 10-16-2025 End: 01-15-2026 Renal function 2000 panel - Serum or Plasma RENAL FUNCTION PANEL Lab Routine Stage 3a chronic kidney disease (HCC) Expected: 10/16/2025, Expires: 01/15/2026 [facility] Work Phone: Comment on above: Expected: 10/16/2025 , Expires: 01/15/2026 Start: 10-16-2025 End: 01-15-2026 Urinalysis complete panel - Urine URINALYSIS, WITH MICROSCOPIC Lab Routine Stage 3a chronic kidney disease (HCC) Expected: 10/16/2025, Expires: 01/15/2026 [facility] Comment on above: Expected: 10/16/2025 , Expires: 01/15/2026 Start: 08-13-2025 Complete blood count Hemoglobin/Bryon tocrit [facility] Start: 08-13-2025 Creatinine measurement Serum Creatin ine [facility] Start: 11-07-2024 End: 11-07-2024 Patient encounter procedure 11/07/2024 8:15 AM EST Office Visit [facility] [address] [place] [address] Queta Tilley PA [address] [place] [address] [facility] Start: 10-22-2024 End: 10-22-2024 Patient encounter procedure 10/22/2024 10:20 AM EST Office Visit [facility] [address] [place] [id number] Lyndsay Salgado, DO [address] [place] [address] 1 year [facility] Comment on above: 1 year Start: 10-18-2024 End: 10-18-2024 ambulatory 10/18/2024 8:30 AM EST Treatment [facility] [address] [place] [address] Giacomo Carmichael PTA [facility] Start: 10-17-2024 End: 01-16-2025 25-hydroxyvitamin D3 [Mass/volume] in Serum or Plasma VITAMIN D 25 HYDROXY Lab Routine Stage 3 chronic kidney disease, unspecified whether stage 3a or 3b CKD (HCC) Expected: 10/17/2024, Expires: 01/16/2025 [facility] Comment on above: Expected: 10/17/2024 , Expires: 01/16/2025 Start: 10-17-2024 End: 01-16-2025 CBC panel - Blood by Automated count COMPLETE BLOOD COUNT Lab Routine Stage 3 chronic kidney disease, unspecified whether stage 3a or 3b CKD (HCC) Expected: 10/17/2024, Expires: 01/16/2025 [facility] Comment on above: Expected: 10/17/2024 , Expires: 01/16/2025 Start: 10-17-2024 End: 01-16-2025 Microalbumin/Creatinine [Mass Ratio] in Urine ALBUMIN/CREATININE RATIO, URINE Lab Routine Stage 3 chronic kidney disease, unspecified whether stage 3a or 3b CKD (HCC) Expected: 10/17/2024, Expires: 01/16/2025 [facility] Work Phone: Comment on above: Expected: 10/17/2024 , Expires: 01/16/2025 Start: 10-17-2024 End: 01-16-2025 Parathyrin.intact [Mass/volume] in Serum or Plasma PTH INTACT Lab Routine Stage 3 chronic kidney disease, unspecified whether stage 3a or 3b CKD (HCC) Expected: 10/17/2024, Expires: 01/16/2025 [facility] Comment on above: Expected: 10/17/2024 , Expires: 01/16/2025 Start: 10-17-2024 End: 01-16-2025 Protein/Creatinine [Mass Ratio] in Urine PROTEIN / CREATININE RATIO Lab Routine Stage 3 chronic kidney disease, unspecified whether stage 3a or 3b CKD (HCC) Expected: 10/17/2024, Expires: 01/16/2025 [facility] Comment on above: Expected: 10/17/2024 , Expires: 01/16/2025 Start: 10-17-2024 End: 01-16-2025 Renal function 2000 panel - Serum or Plasma RENAL FUNCTION PANEL Lab Routine Stage 3 chronic kidney disease, unspecified whether stage 3a or 3b CKD (HCC) Expected: 10/17/2024, Expires: 01/16/2025 [facility] Comment on above: Expected: 10/17/2024 , Expires: 01/16/2025 Start: 10-17-2024 End: 01-16-2025 Urinalysis complete panel - Urine URINALYSIS WITH MICROSCOPIC, REFLEX CULTURE Lab Routine Stage 3 chronic kidney disease, unspecified whether stage 3a or 3b CKD (HCC) Expected: 10/17/2024, Expires: 01/16/2025 [facility] Comment on above: Expected: 10/17/2024 , Expires: 01/16/2025 Start: 10-16-2024 Advance Directive Discussion Advance Directive Discussion [facility] Start: 10-08-2024 End: 10-08-2024 ambulatory 10/08/2024 10:15 AM EST Treatment [facility] [address] [facility] [address] Shirlene Blakely, PT [address] [facility] [place] [address] [facility] Start: 10-03-2024 End: 10-03-2024 ambulatory 10/03/2024 10:00 AM EST Treatment [facility] [address] [place] [address] Shirlene Blakely, PT [address] [place] [address] [facility] Start: 10-03-2024 End: 10-03-2024 Patient encounter procedure [facility] Comment on above: S/P TKR (total knee replacement), left (Primary Dx) Start: 09-30-2024 End: 09-30-2024 ambulatory 09/30/2024 5:30 PM EST Treatment [facility] [address] [place] [address] Roseanne Sousa, PT [address] [place] [address] [facility] Start: 09-30-2024 End: 09-30-2024 ambulatory 09/30/2024 10:30 AM EST Treatment [facility] [address] [place] [address] Ameena Lawson [employer] [facility] Start: 09-27-2024 End: 09-27-2024 ambulatory [facility] Comment on above: Arrived Start: 09-23-2024 End: 09-23-2024 ambulatory [facility] Comment on above: Acute postoperative pain of left knee (Primary Dx); S/P total knee replacement, left Start: 09-20-2024 End: 09-20-2024 ambulatory 09/20/2024 8:45 AM EST Treatment [facility] [address] [place] [address] Roseanne Sousa, PT [address] [place] [address] [facility] Start: 09-18-2024 End: 09-18-2024 ambulatory 09/18/2024 9:00 AM EST Treatment [facility] [address] [place] [address] Giacomo Carmichael, [employer] [facility] Start: 09-16-2024 End: 09-16-2024 [...] other preprocedural examination Expected: 08/13/2024, Expires: 08/20/2025 [facility] Work Phone: Comment on above: Expected: 08/13/2024 , Expires: 08/20/2025 Start: 08-09-2024 End: 08-09-2025 aPTT in Blood by Coagulation assay APTT Lab Routine Preop examination Expected: 08/09/2024 (Approximate), Expires: 08/09/2025 [facility] Work Phone: Comment on above: Expected: 08/09/2024 (Approximate), Expires: 08/09/2025 Start: 08-09-2024 End: 08-13-2025 Bacteria identified in Urine by Culture [employer] Work Phone: Comment on above: Expected: 08/09/2024 , Expires: 08/13/2025 Expected: 08/09/2024 (Approximate), Expires: 08/09/2025 Start: 08-09-2024 End: 08-09-2025 CBC W Auto Differential panel - Blood CBC auto differential Lab Routine Preop examination Expected: 08/09/2024 (Approximate), Expires: 08/09/2025 [facility] Comment on above: Expected: 08/09/2024 (Approximate), Expires: 08/09/2025 Start: 08-09-2024 End: 08-09-2025 Comprehensive metabolic 2000 panel - Serum or Plasma Comprehensive metabolic panel Lab Routine Preop examination Expected: 08/09/2024 (Approximate), Expires: 08/09/2025 [facility] Comment on above: Expected: 08/09/2024 (Approximate), Expires: 08/09/2025 Start: 08-09-2024 End: 08-09-2025 Prothrombin time (PT) in Blood by Coagulation assay Protime-INR Lab Routine Preop examination Expected: 08/09/2024 (Approximate), Expires: 08/09/2025 [facility] Comment on above: Expected: 08/09/2024 (Approximate), Expires: 08/09/2025 Start: 08-09-2024 End: 08-09-2025 Urinalysis complete panel - Urine Urinalysis with reflex microscopic Lab Routine Preop examination Expected: 08/09/2024 (Approximate), Expires: 08/09/2025 [facility] Comment on above: Expected: 08/09/2024 (Approximate), Expires: 08/09/2025 Start: 08-09-2024 End: 08-09-2025 XR Femur and Tibia Views for leg length XR lower extremity leg length evaluation Imaging Routine Preop examination Expected: 08/09/2024 (Approximate), Expires: 08/09/2025 [facility] Comment on above: Expected: 08/09/2024 (Approximate), Expires: 08/09/2025 Start: 08-07-2024 End: 08-07-2024 Patient encounter procedure 08/07/2024 10:00 AM EDT Office Visit [facility] [address] [place] [address] Jr. El Ruiz, DO [address] [facility] [address] [place] [address] [facility] Start: 06-26-2024 End: 06-26-2024 Patient encounter procedure 06/26/2024 11:15 AM EDT Office Visit [facility] [address] [place] [address] Jr. El Ruiz, DO [address] [facility] [address] [place] [address] Arrived [facility] Comment on above: Arrived Start: 06-16-2024 COVID-19 Vaccine ( season) [facility] ( [facility] Start: 06-16-2024 Influenza vaccination N [facility] Start: 06-14-2024 Complete blood count Hemoglobin/Bryon tocrit [facility] Start: 06-14-2024 Creatinine measurement Serum Creatin ine [facility] Start: 06-14-2024 HEMOGLOBIN/HEMATOCRIT HEMOGLOBIN/HEM ATOCRIT [facility] Start: 06-14-2024 SERUM CREATININE SERUM CREATININE Cl [facility] Start: 03-18-2024 Bacteria identified in Urine by Culture [facility] Start: 06-16-2023 Influenza vaccination INFLUENZA (#1) [facility] Start: 05-16-2023 End: 07-16-2023 25-hydroxyvitamin D3 [Mass/volume] in Serum or Plasma VITAMIN D 25 HYDROXY Lab Routine Chronic kidney disease, unspecified CKD stage Expected: 05/16/2023, Expires: 07/16/2023 [facility] Work Phone: Comment on above: Expected: 05/16/2023 , Expires: 07/16/2023 Start: 05-16-2023 End: 07-16-2023 MONOCLONAL PROTEIN, SERUM (BLOOD) MONOCLONAL PROTEIN, SERUM (BLOOD) Lab Routine Chronic kidney disease, unspecified CKD stage Expected: 05/16/2023, Expires: 07/16/2023 [facility] Work Phone: Comment on above: Expected: 05/16/2023 , Expires: 07/16/2023 Start: 05-16-2023 End: 07-16-2023 Parathyrin.intact [Mass/volume] in Serum or Plasma PTH INTACT BLD Lab Routine Chronic kidney disease, unspecified CKD stage Expected: 05/16/2023, Expires: 07/16/2023 [facility] Work Phone: Comment on above: Expected: 05/16/2023 , Expires: 07/16/2023 Start: 10-16-2022 ADVANCE DIRECTIVE DISCUSSION ADVANCE DIRECTIVE DISCUSSION [facility] Start: 10-16-2022 DEPRESSION ASSESSMENT DEPRESSION ASS ESSMENT [facility] Start: 07-17-2022 DIABET[facility]CREEN [facility] Start: 07-17-2022 Diabetes Screening Diabetes Screenin g [facility] Start: 2021 RSV Vaccine (1 - 1-d ose 75+ series) RSV Vaccine (1 - 1-dose 75+ series) [facility] Start: 03-04-2021 COVID-19 VACCINE (3 - Pfizer series) COVID-19 VACCINE (3 - Pfizer series) [facility] Start: 07-17-2020 HEMOGLOBIN/HEMATOCRIT HEMOGLOBIN/HEM ATOCRIT [facility] Start: 07-17-2020 SERUM CREATININE SERUM CREATININE Cl [facility] Start: 11-16-2017 PNEUMOCOCCAL: 65+ (2 - PCV) PNEUMOCOCCAL: 65+ (2 - PCV) [facility] Start: 2011 Fall Risk Screening Fall Risk Screen ing [facility] Start: 1996 Administration of varicella zoster vaccine Zoster (Shingles) Vaccine (1 of 2) [facility] Start: 1996 SHINGRIX VACCINE (1 of 2) SHINGRIX VACCINE (1 of 2) [facility] Start: 1965 DTaP,Tdap and Td Vaccines (1 - Tdap) DTaP,Tdap and Td Vaccines (1 - Tdap) [facility] Start: 1965 Urine microalbumin profile [facility] Start: 1964 Adult BMI Screening Adult BMI Screen ing [facility] Start: 1964 ANNUAL PCP TEAM AIR [employer]ING UNIT TESTER MAURI DISEASE VISIT ANNUAL PCP TEAM CHRONIC DISEASE VISIT [facility] Start: 1964 Anxiety Screening Anxiety Screening [facility] Start: 1964 BP CONTROLLED (<130/80) BP CONTROLLE D (<130/80) [facility] Start: 1964 Depression Screening Depression Scre ing [facility] Start: 1964 HEPATITIS C SCREENING HEPATITIS C [facility] Start: 1964 Hepatitis C screening Hepatitis C [facility] Start: 1958 Depression Screening Depression Scre ing [facility] Start: 1958 Tobacco Screening Tobacco Screening [facility] Start: 1946 Medicare Annual Well ness Visit Medicare Annual Wellness Visit [facility] Bacteria identified in Urine by Culture Urine Culture Microbiology Routine Encounter for other preprocedural examination 08/13/2024 6:13 PM EDT [facility] End: 05-16-2024 CBC panel - Blood by Automated count CBC Lab Routine Chronic kidney disease, unspecified CKD stage Every 3 months for 4 Occurrences starting 05/16/2023 until 05/16/2024 [facility] Work Phone: Comment on above: Every 3 months for 4 Occurrences starting 05/16/2023 until 05/16/2024 End: 05-16-2024 Protein/Creatinine [Mass Ratio] in Urine PROTEIN CREATININE RATIO Lab Routine Chronic kidney disease, unspecified CKD stage Every 3 months for 4 Occurrences starting 05/16/2023 until 05/16/2024 [facility] Work Phone: Comment on above: Every 3 months for 4 Occurrences starting 05/16/2023 until 05/16/2024 End: 05-16-2024 Renal function 2000 panel - Serum or Plasma RENAL FUNCTION PANEL Lab Routine Chronic kidney disease, unspecified CKD stage Every 3 months for 4 Occurrences starting 05/16/2023 until 05/16/2024 [facility] Work Phone: Comment on above: Every 3 months for 4 Occurrences starting 05/16/2023 until 05/16/2024 End: 05-16-2024 Urinalysis complete panel - Urine URINALYSIS, WITH MICROSCOPIC Lab Routine Chronic kidney disease, unspecified CKD stage Every 3 months for 4 Occurrences starting 05/16/2023 until 05/16/2024 [facility] Work Phone: Comment on above: Every 3 months for 4 Occurrences starting 05/16/2023 until 05/16/2024 End: 06-16-2024 US KIDNEY/BLADDER US KIDNEY/BLADDER Radiology Routine Chronic kidney disease, unspecified CKD stage 1 Occurrences starting 05/16/2023 until 06/16/2024 [facility] Work Phone: Comment on above: 1 Occurrences starti ng 05/16/2023 until 06/16/2024 [facility] Immunizations Immunization Date Immunization Notes Care Provider Fa carrie 07-26-2021 influenza virus vacc ine, unspecified formulation Jr. Stepanic DO Work Phone: [facility] 01-07-2021 COVID-19 original vaccine, age 12+ yr, monovalent (PFIZER-BIONTECH - PURPLE TOP) Lyndsay Salgado DO Work Phone: [facility] Work Phone: 12-17-2020 COVID-19 original vaccine, age 12+ yr, monovalent (PFIZER-BIONTECH - PURPLE TOP) Lyndsay Salgado DO Work Phone: [facility] Work Phone: 11-16-2016 pneumococcal polysaccharide vaccine, 23 valent Lyndsay Salgado DO Work Phone: [facility] Payers Date Payer Category Payer Self-pay [id number] 2023 Unknown [id number] 2021 Commercial Indemnity [facility] [id number] 2021 Private Health Insurance [employer] [facility] [id number]. [id number] 2020 Unknown [id number]. 1.13.159.2. 7.3.896787.315 2011 Medicare [id number]. 1.13.159.2. [id number] 1959 Medicare [id number] 2.16.840.1.422975.19 1959 Unknown [id number] 2.16.840.1.344308.19 1946 Unknown [id number] 2.16.840.1.168596.3.579.2. 593 1946 Unknown [id number] 2.16.840.1.268044.3.579.2. 593 1946 Unknown [id number] 2.16.840.1.144946.3.579.2. 593 1946 Unknown [id number] 2.16.840.1.405004.3.579.2. 593 1946 Unknown [id number] 2.16.840.1.828730.3.579.2. 1286 1946 Unknown [id number] 2.16.840.1.341681.3.579.2. 1286 1946 Unknown [id number] 2.16.840.1.068881.3.579.2. 1259 1946 Unknown [id number] 2.16.840.1.043976.3.579.2. 1259 1946 Unknown [id number] 2.16.840.1.033320.3.579.2. 1259 1946 Unknown [id number] 2.16.840.1.402981.3.579.2. 1259 1946 Unknown [id number] 2.16.840.1.004151.3.579.2. 1259 1946 Unknown [id number] 2.16.840.1.623350.3.579.2. 1258 1946 Unknown [id number] 2.16.840.1.962816.3.579.2. 1258 1946 Unknown [id number] 2.16.840.1.786168.3.579.2. 1258 1946 Unknown [id number] 2.16.840.1.954898.3.579.2. 1258 1946 Unknown [id number] 2.16.840.1.699862.3.579.2. 1258 1946 Unknown [id number] 2.16.840.1.722618.3.579.2. 1258 1946 Unknown [id number] 2.16.840.1.933829.3.579.2. 1258 1946 Unknown [id number] 2.16.840.1.267127.3.579.2. 1258 1946 Unknown [id number] 2.16.840.1.420847.3.579.2. 1258 1946 Unknown [id number] 2.16.840.1.991815.3.579.2. 1258 1946 Unknown [id number] 2.16.840.1.357224.3.579.2. 1258 1946 Unknown [id number] 2.16.840.1.900196.3.579.2. 1258 1946 Unknown [id number] 2.16.840.1.137252.3.579.2. 1258 1946 Unknown [id number] 2.16.840.1.852185.3.579.2. 1258 1946 Unknown [id number] 2.16.840.1.258566.3.579.2. 1258 1946 Unknown [id number] 2.16.840.1.280009.3.579.2. 1258 1946 Unknown [id number] 2.16.840.1.359354.3.579.2. 1258 1946 Unknown [id number] 2.16.840.1.349786.3.579.2. 1258 1946 Unknown [id number] 2.16.840.1.424611.3.579.2. 1258 1946 Unknown [id number] 2.16.840.1.892932.3.579.2. 1258 1946 Unknown [id number] 2.16.840.1.582298.3.579.2. 1258 1946 Unknown [id number] 2.16.840.1.182934.3.579.2. 1258 1946 Unknown [id number] 2.16.840.1.630527.3.579.2. 1258 1946 Unknown [id number] 2.16.840.1.130634.3.579.2. 1258 1946 Unknown [id number] 2.16.840.1.646992.3.579.2. 1258 1946 Unknown [id number] 2.16.840.1.865084.3.579.2. 1258 1946 Unknown [id number] 2.16.840.1.825434.3.579.2. 1258 1946 Unknown [id number] 2.16.840.1.743264.3.579.2. 125 Unknown [id number] 2.16.840.1.450746.3.579.2. 531 Social History Date Type Detail Facility Unknown if ever smoked [facility] Other Start: 07-16-2019 End: 05-16-2023 Sex Assigned At [facility] Start: 05-16-2023 End: 09-25-2023 Tobacco smoking status NHIS Never smoked tobacco [facility] Start: 05-16-2023 End: 09-25-2023 Tobacco use and exposure Smokeless tobacco non-user [facility] Start: 05-16-2023 End: 10-22-2024 Alcohol intake Current drinker of alcohol (finding) [facility] Start: 07-16-2019 End: 05-16-2023 History of Social function [facility] Start: 09-18-2023 PHQ2 Score 0 [facility] Start: 06-25-2019 Alcohol Comment 2 drinks every other day, maybe 3. beer. [facility] Start: 1945 Sex Assigned At Male [facility] Start: 06-18-2019 Gender identity Identifies as male gender (finding) [facility] Tobacco smoking status NHIS Tobacco smoking consumption unknown [facility] Start: 1945 Sex assigned at Not on file [facility] Start: 05-21-2015 Sex Male (finding) [facility] Medical Equipment Procedure Code Equipment Code Equipment Origin al Text Equipment Identifier Dates Wnt-Jc-W-Kind Im plant - [id number] Start: 03-02-2017 Comment on above: Description: CHECK P RICE Humeral Insert S ocket 36 M + 4 [id number] Start: 07-16-2019 Insert Rsp 36mm Standard Socket Semiconstrain Humerus - [id number] Start: 03-02-2017 Stem Altivate Dj o Surgical 12 Standard 108mm Humeral Sterile Shoulder - [id number] Start: 07-16-2019 Baseplate Rsp P2 30mm Glenoid Sterile - [id number] Start: 07-16-2019 Screw Rsp 5mm 18 mm Bone Lock Glenoid Baseplate Shoulder - [id number] Start: 03-02-2017 Screw Rsp 5mm 26 mm Bone Lock Glenoid Baseplate Shoulder - [id number] Start: 07-16-2019 Baseplate Rsp 6. 5mm Wiggins 30mm Glenoid - [id number] Start: 03-02-2017 Head Rsp 36mm Ne utral Glenoid Retain Screw - [id number] Start: 03-02-2017 Head Rsp 36mm Ne utral Glenoid Retain Screw - [id number] Start: 07-16-2019 Screw Rsp 5mm 30 mm Bone Lock Glenoid Baseplate Shoulder - [id number] Start: 03-02-2017 Screw Rsp 5mm 30 mm Bone Lock Glenoid Baseplate Shoulder - [id number] Start: 03-02-2017 Screw Rsp 5mm 18 mm Bone Lock Glenoid Baseplate Shoulder - [id number] Start: 03-02-2017 Screw Rsp 5mm 22 mm Bone Lock Glenoid Baseplate Shoulder - [id number] Start: 07-16-2019 Screw Rsp 5mm 26 mm Bone Lock Glenoid Baseplate Shoulder - [id number] Start: 07-16-2019 Screw Rsp 5mm 18 mm Bone Lock Glenoid Baseplate Shoulder - [id number] Start: 07-16-2019 Clinical Notes 12-19-2016 to 10-22-2024 Lyndsay Salgado DO - 10/22/2024 10:20 AM ESTTelephone Encounter - Porfirio Hamilton MA - 10/17/2024 3:24 PM ESTTelephone Encounter - Porfirio Hamilton MA - 10/17/2024 3:24 PM ESTPatient Instructions Note Date & Type Note Facility 10-22-2024 History of Present illness Narrative Images from the original note were not included. Department of Kidney Medicine Medical Specialties [facility] SERVICE DATE: 10/22/2024 SERVICE TIME: 10:27 AM CHIEF COMPLAINT: Chronic kidney disease stage IIIa HPI: Mr. Lim is a 79 year old male with a Pmhx of primary hypertension, hyperlipidemia, and osteoarthritis, who presents with chronic kidney disease stage IIIa. 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 05/2023 - Renal labs today. Referred to pain management for alternatives aside from NSAIDs. US kidney/bladder with normal appearing kidneys. 10/03/2023 - Followed with cardiology afterwards. Sinus bradycardia and episodes of nonsustained atrial tachycardia. No A-fib episodes noted. Fastest rate 160 beat per minute. Creatinine 1.1. Decreased from 1.4 when last checked 05/2023. Losartan increased to 75 mg daily the day prior to his appointment. Can increase to 100 mg daily if blood pressure remains uncontrolled. Follow up yearly. Recent labs Hgb 12.6 HCT 38.5 UA was bland with UPCR 0.12 Cr 1.50 mg/dL Bun 29 Na 135 K 4.3 Chloride 100 Bicarbonate 29.3 Calcium 9.4 Phos 3.9 Vitamin D 33 Overall stable renal function. Following with cardiology at the [facility]. No longer taking NSAIDs after his bilateral knee replacement. PAST MEDICAL HISTORY: PAST MEDICAL HISTORY Diagnosis [...] for drug/alcohol abuse in the past. MEDICATIONS: diclofenac (VOLTAREN ARTHRITIS PAIN) 1 % topical gel Apply to affected area two times a day. spironolactone (ALDACTONE) 50 mg tablet Take 50 mg by mouth once daily. tamsulosin ER (FLOMAX) 0.4 mg cp24 Take 0.4 mg by mouth once daily. diclofenac (VOLTAREN) 0.1 % ophthalmic solution 1 Drop four times daily. losartan (COZAAR) 25 mg tablet Take 3 tablets by mouth once daily. aspirin, enteric coated [...] (Patient not taking: Reported on 10/07/2019 ) prasterone, dhea, (DHEA) 50 mg tab Take 50 mg by mouth once daily. turmeric-turmeric root extract 450-50 mg cap Take 1 capsule by mouth once daily. Ascorbic Acid (VITAMIN C) 1,000 mg tablet Take 1,000 mg by mouth three times a week. MINERALS ORAL Take 1 tablet by mouth once daily. Czoce-2-GDZ-EPA-Fish Oil (FISH OIL) 1,000 mg (120 mg-180 mg) cap Take 1 g by mouth once daily. lovastatin (MEVACOR) 20 mg tablet Take 20 mg by mouth daily at bedtime. multivitamin (MULTIPLE VITAMINS) tablet Take 1 tablet by mouth once daily. [place] 160 mg capsule Take 160 mg by mouth three times daily. vitamin b complex tab Take 1 tablet by mouth once daily. VITAMIN E ACETATE ORAL Take 1,200 mg by mouth twice daily. aspirin, enteric coated (ASPIRIN, ENTERIC COATED) 81 mg EC tablet Take 81 mg by mouth once daily. ALLERGIES: ALLERGIES No Known Allergies PHYSICAL EXAM: BP 130/69 Pulse 64 Ht 179.1 cm (5' 10.51 ) Wt 92.5 kg (203 lb 14.8 oz) BMI 28.84 kg/m BP - standardized method Pulse 1 BP #1: 137/68 Pulse #1: 64 beats/min 2 BP #2 : 124/70 Pulse #2 : 65 beats/min 3 BP #3 : 129/69 Pulse #3 : 63 beats/min Average Average BP: 130/69 Average Pulse: 64 beats/min BP cuff location BP cuff location: Right upper arm BP cuff size BP cuff size: regular adult Constitutional: No acute distress, Responsive, Normal habitus, and Well-nourished Eyes: Conjunctiva clear and PERRL Ear, Nose, and Throat: Hearing normal, Lips normal, and Dentition normal Neck:Trachea midline No jugular venous distension Cardiovascular:Regular rate and rhythm, normal S1 and S2, no murmurs, rubs, or gallops No peripheral edema Respiratory: Normal respiratory effort. Lungs clear bilaterally. Abdomen:Soft, non-tender, non-distended. Normal bowel sounds. No hepatosplenomegaly. Musculoskeletal: No clubbing or cyanosis of digits., Normocephalic., and No muscle weakness, joint tenderness, or joint effusions. Neurologic:CN II-XII intact and Normal sensation Psychiatric: Alert and oriented x self, place, time, and setting Normal mood/affect DATA: Diagnostic tests reviewed for today's visit: Blood work, imaging studies, and office notes were reviewed in epic Sodium (mmol/L) Date Value 06/14/2023 134 (L) 07/17/2019 137 06/25/2019 140 Creatinine (mg/dL) Date Value 06/14/2023 1.47 (H) 07/17/2019 1.23 06/25/2019 1.30 (H) Vitamin D 25 Hydroxy (ng/mL) Date Value 06/14/2023 37.6 PTH, Intact (pg/mL) Date Value 06/14/2023 38 Potassium (mmol/L) Date Value 06/14/2023 4.2 07/17/2019 4.1 06/25/2019 4.2 Phosphorus (mg/dL) Date Value 06/14/2023 3.3 Calcium (mg/dL) Date Value 07/17/2019 8.4 (L) 06/25/2019 9.2 Calcium, Total (mg/dL) Date Value 06/14/2023 9.5 Hemoglobin (g/dL) Date Value 06/14/2023 13.6 07/17/2019 11.0 (L) 06/25/2019 12.4 (L) No results found for: HGBA1C , HBA1C , A1C No results found for: UALBCR Protein/Creat Ratio (mg/mg) Date Value 06/14/2023 <0.09 Latest Ref Rng & Units 06/14/2023 07/17/2019 06/25/2019 BMP Glucose 74 - 99 mg/dL 112 176 114 BUN 9 - 24 mg/dL 25 22 23 Creatinine 0.73 - 1.22 mg/dL 1.47 1.23 1.30 Sodium 136 - 144 mmol/L 134 137 140 Potassium 3.7 - 5.1 mmol/L 4.2 4.1 4.2 Chloride 97 - 105 mmol/L 97 106 103 CO2 22 - 30 mmol/L 28 21 24 Anion Gap 9 - 18 mmol/L 9 10 13 Calcium 8.5 - 10.2 mg/dL 9.5 8.4 9.2 EGFR >=60 mL/min/1.73m 49 54 EGFR- >60 EGFR-All Other Races . 54 Lab Results Component Value Date COLOR Light Yellow 06/14/2023 CLARITY Clear 06/14/2023 UGLUC Negative 06/14/2023 UBILI Negative 06/14/2023 UKET Negative 06/14/2023 SPGR 1.012 06/14/2023 UHB Negative 06/14/2023 UPH 6.5 06/14/2023 UPROT Negative 06/14/2023 UROBILINOGEN Negative 06/14/2023 NITRITES Negative 06/14/2023 LEUKEST Negative 06/14/2023 UWBC 0-5 /HPF 06/14/2023 URBC 0-3 /HPF 06/14/2023 ASSESSMENT: Mr. Lim is a 79 year old male with a Pmhx of primary hypertension, hyperlipidemia, and osteoarthritis, who presents with chronic kidney disease stage III. Chronic kidney disease stage IIIa - Etiology likely secondary to nephrosclerosis due to analgesics 2. Anemia of renal disease - Hemoglobin at goal 3. Secondary hyperparathyroidism - PTH/Vitamin D wnl 4. Primary hypertension - Controlled on current medications 5. Hx of shoulder pain 6. Generalized pain 7. Bradycardia 8. SVT PLAN: - Continue current medical management - Follow up yearly Parts of A/P may have been copied from prior entry and amended as needed. It reflects full evaluations and pathophysiology processes involved. I spent a total of 40 minutes on the date of the service which included preparing to see the patient, [id number] patient care, completing clinical documentation, and obtaining and/or reviewing separately obtained history. Visit [facility] Inherent E&M Associated with [facility] ([id number]) SIGNATURE: Lyndsay Salgado DO [facility]SA PATIENT NAME: Amina Lim DATE: October 22, 2024 TIME: 10:48 AM CC: PRIMARY CARE PHYSICIAN: Narciso Bullock MD documented in this encounter [facility] 10-22-2024 Note HNO ID: [id number] Author: LYNDSAY SALGADO DO Service: ? Author Type: Physician Type: Progress Notes Filed: 10/22/2024 10:48 Note Text: Department of Kidney Medicine Medical Specialties [facility] SERVICE DATE: 10/22/2024 SERVICE TIME: 10:27 AM CHIEF COMPLAINT: Chronic kidney disease stage IIIa HPI: Mr. Lim is a 79 year old male with a Pmhx of primary hypertension, hyperlipidemia, and osteoarthritis, who presents with chronic kidney disease stage IIIa. 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 05/2023 - Renal labs today. Referred to pain management for alternatives aside from NSAIDs. US kidney/bladder with normal appearing kidneys. 10/03/2023 - Followed with cardiology afterwards. Sinus bradycardia and episodes of nonsustained atrial tachycardia. No A-fib episodes noted. Fastest rate 160 beat per minute. Creatinine 1.1. Decreased from 1.4 when last checked 05/2023. Losartan increased to 75 mg daily the day prior to his appointment. Can increase to 100 mg daily if blood pressure remains uncontrolled. Follow up yearly. Recent labs Hgb 12.6 HCT 38.5 UA was bland with UPCR 0.12 Cr 1.50 mg/dL Bun 29 Na 135 K 4.3 Chloride 100 Bicarbonate 29.3 Calcium 9.4 Phos 3.9 Vitamin D 33 Overall stable renal function. Following with cardiology at the [facility]. No longer taking NSAIDs after his bilateral knee replacement. PAST MEDICAL HISTORY: PAST MEDICAL HISTORY Diagnosis [...] for drug/alcohol abuse in the past. MEDICATIONS: diclofenac (VOLTAREN ARTHRITIS PAIN) 1 % topical gel Apply to affected area two times a day. spironolactone (ALDACTONE) 50 mg tablet Take 50 mg by mouth once daily. tamsulosin ER (FLOMAX) 0.4 mg cp24 Take 0.4 mg by mouth once daily. diclofenac (VOLTAREN) 0.1 % ophthalmic solution 1 Drop four times daily. losartan (COZAAR) 25 mg tablet Take 3 tablets by mouth once daily. aspirin, enteric coated [...] (Patient not taking: Reported on 10/07/2019 ) prasterone, dhea, (DHEA) 50 mg tab Take 50 mg by mouth once daily. turmeric-turmeric root extract 450-50 mg cap Take 1 capsule by mouth once daily. Ascorbic Acid (VITAMIN C) 1,000 mg tablet Take 1,000 mg by mouth three times a week. MINERALS ORAL Take 1 tablet by mouth once daily. Veqpn-9-RTT-EPA-Fish Oil (FISH OIL) 1,000 mg (120 mg-180 mg) cap Take 1 g by mouth once daily. lovastatin (MEVACOR) 20 mg tablet Take 20 mg by mouth daily at bedtime. multivitamin (MULTIPLE VITAMINS) tablet Take 1 tablet by mouth once daily. Saw Kingston 160 mg capsule Take 160 mg by mouth three times daily. vitamin b complex tab Take 1 tablet by mouth once daily. VITAMIN E ACETATE ORAL Take 1,200 mg by mouth twice daily. aspirin, enteric coated (ASPIRIN, ENTERIC COATED) 81 mg EC tablet Take 81 mg by mouth once daily. ALLERGIES: ALLERGIES No Known Allergies PHYSICAL EXAM: BP 130/69 Pulse 64 Ht 179.1 cm (5' 10.51 ) Wt 92.5 kg (203 lb 14.8 oz) BMI 28.84 kg/m? BP - standardized method Pulse 1 BP #1: 137/68 Pulse #1: 64 beats/min 2 BP #2 : 124/70 Pulse #2 : 65 beats/min 3 BP #3 : 129/69 Pulse #3 : 63 beats/min Average Average BP: 130/69 Average Pulse: 64 beats/min BP cuff location BP cuff location: Right upper arm BP cuff size BP cuff size: regular adult Constitutional: No acute distress, Responsive, Normal habitus, and Well-nourished Eyes: Conjunctiva clear and PERRL Ear, Nose, and Throat: Hearing normal, Lips normal, and Dentition normal Neck:Trachea midline No jugular venous distension Cardiovascular:Regular rate and rhythm, normal S1 and S2, no murmurs, rubs, or gallops No peripheral edema Respiratory: Normal respiratory effort. Lungs karely (more content not included)... [facility] 10-17-2024 Telephone encounter Note Images from the original note were not included. Orders printed and faxed to number provided below. Confirmation received. Pt notified KANE Angel Diana, DO [facility] [place]1 hour ago (2:17 PM) Please fax lab orders to [facility] and let patient know that I have ordered them. (Covering for Dr Salgado) Thanks Cassidy [facility] 10-17-2024 Miscellaneous Notes Images from the original note were not included. Orders printed and faxed to number provided below. Confirmation received. Pt notified KANE Angel Diana, DO [facility] [place] hour ago (2:17 PM) Please fax lab orders to [facility] and let patient know that I have ordered them. (Covering for Dr Salgado) Thanks Cassidy Covering for Dr Salgado CKD lab work ordered Cassidy Arita DO October 17, 2024, 2:15 PM ----- Message from RHODA Han sent at 10/17/2024 1:10 PM EST ----- Regarding: Lab orders for upcoming appt w/Dr. Salgado Contact: Patient is requesting labs for upcoming appt on 10/22/24. Labs need to be faxed to [facility] @ [phone]. Call pt when done Danielle Blanchard documented in this encounter [facility] 10-17-2024 Telephone encounter Note Covering for Dr Salgado CKD lab work ordered Cassidy Arita DO October 17, 2024, 2:15 PM [facility] 10-17-2024 Telephone encounter Note ----- Message from RHODA Han sent at 10/17/2024 1:10 PM EST ----- Regarding: Lab orders for upcoming appt w/Dr. Salgado Contact: Patient is requesting labs for upcoming appt on 10/22/24. Labs need to be faxed to [facility] @ [phone]. Call pt when done Danielle Blanchard [facility] 10-08-2024 History of Present illness Narrative Images from the original note were not included. Time In: 10:10 AM Time Out: 10:50 AM Supervised Time: 30 min Total Time: 40 min Visit Number: 10, Medicare, has used $1321.70 toward Medicare cap [...] stretch into flexion PROM; tibial extension mobs Technology Engineer Goals: Increase ROM left knee to 0-110* [...] Physician Signature: Date: documented in this encounter [facility] 10-03-2024 History of Present illness Narrative [...] x 6 weeks documented in this encounter [facility] 10-03-2024 History of Present illness Narrative Images from the original note were not included. HISTORY OF PRESENT ILLNESS: POST OP PT Amina Lim is an 79 y.o. @ male. (EST PT) S/P (L) TKA 08/22/24 (6WKS). XRAYS DONE TODAY, 10/03/24 IN [facility] DOING WELL. CONTINUES TO HAVE SOME DISCOMFORT - TAKING PERCOCET 1/2 Q 6 HRS ; CONTINUES TO ICE. CONTINUES PHYSICAL THERAPY 2x WEEKLY @ [place] - NOTES INCREASING ROM & STRENGTH. SOME [...] requiring urgent evaluation. documented in this encounter [facility] 09-23-2024 History of Present illness Narrative [...] x 6 weeks documented in this encounter [facility] 09-16-2024 History of Present illness Narrative [...] camping, dogs Employment retired 15 years from [employer] INTERVENTIONS: X ( ) manual therapy X 40/10 minutes therapeutic exercises for ROM and strengthening X ( ) minutes modalities: ice PT Assessment: No change in knee flexion/extension today. Did tolerate all exercise well in PT. Ice at home. Plan: PT 2-3x/weeks x 6 weeks documented in this encounter [facility] 09-11-2024 History of Present illness Narrative [...] camping, dogs Employment retired 15 years from [employer] INTERVENTIONS: X 20 minutes of manual therapy to increase ROM X 30 minutes therapeutic exercises for ROM and strengthening X 10 minutes modalities: ice PT Assessment: Therapy Diagnosis: s/p left TKA with weaknessk swelling and pain Technology Engineer Goals: Increase ROM left knee to 0-110* [...] Physician Signature: Date: documented in this encounter [facility] 09-09-2024 History of Present illness Narrative [...] camping, dogs Employment retired 15 years from [employer] INTERVENTIONS: X 30 minutes therapeutic exercises for ROM and strengthening X minutes modalities: ice, e-stim prn PT Assessment: Therapy Diagnosis: 2. 5 weeks post op left TKA Functional Limitations: Half-Way Goals: Increase ROM left knee to 0-110* [...] Physician Signature: Date: documented in this encounter [facility] 09-05-2024 History of Present illness Narrative Images from the original note were not included. HISTORY OF PRESENT ILLNESS: POST OP PT Amina Lim is an 79 y.o. @ male. (EST PT) 1ST P/O (L) TKA 08/22/24 (2WKS). DOING WELL - NOTES MINIMAL DISCOMFORT ; MUCH WORSE HS - TAKING PERCOCET 1/2 TAB - SOME RELIEF. CONTINUES THERAPY @ HOME W/ [facility], WITH HEP - STARTING OUTPT THERAPY NEXT WEEK @ [facility] [place]. NOTES INCREASING ROM & STRENGTH - USING [...] Valgus: negative Other Erythema: absent Scars: present (Bryce present, removed, no dehiscence or drainage) Sensation: [...] left Z96.652 2. Post-operative pain G89.18 HYDROcodone-acetaminophen (Bruni) 5-325 MG tablet PLAN: Assessment & Plan [...] requiring urgent evaluation. documented in this encounter [facility] 09-05-2024 Instructions LORELEI Soto - 09/05/2024 [...] wound pending recheck. documented in this encounter [facility] 08-29-2024 Telephone encounter Note Patient home PT notified us of need for post op pain rx refill. PDMP reviewed. [facility] 08-29-2024 Miscellaneous Notes Patient home PT notified us of need for post op pain rx refill. PDMP reviewed. documented in this encounter [facility] 08-21-2024 Telephone encounter Note Post op pain rx. PDMP reviewed [facility] 08-21-2024 Miscellaneous Notes Post op pain rx. PDMP reviewed documented in this encounter [facility] 08-14-2024 Telephone encounter Note Acknowledged, thank you. [facility] 08-14-2024 Miscellaneous Notes Acknowledged, thank you. Patient left vm to let us know he has been approved through medicare to have his LT TKA done on 08/22 with . documented in this encounter [facility] 08-14-2024 Telephone encounter Note Patient left vm to let us know he has been approved through medicare to have his LT TKA done on 08/22 with . [facility] 08-14-2024 Note XR BONE LENGTH STUDY Bone length evaluation History: Osteoarthritis, limb length and alignment, knee pain Comparison: None Findings: Standing frontal view of the bilateral lower extremities obtained from the iliac crest through the feet for limb length and alignment without marker device. Impression: Severe Arthritis, osteophytes, joint space narrowing Left knee shows [id number]-gv-[id number] medial compartment arthritis with varus angulation measuring 4 degrees. Appropriate alignment of the right femoral-tibial angle with 2 degrees valgus and a unremarkable prosthesis of the knee Finalized by Micheal Johnson MD on 08/14/2024 5:58 AM [facility] 08-13-2024 History of Present illness Narrative Images [...] MG tablet Every 24 hours Iron Polysacch [id number] (Poly-Iron 150 Forte) 150-0.025-1 MG capsule 1 [...] Ambulatory referral to Physical Therapy Iron Polysacch [id number] (Poly-Iron 150 Forte) 150-0.025-1 MG capsule Chlorhexidine Gluconate (Hibiclens) 4 % solution 2. Primary osteoarthritis of left knee M17.12 Ambulatory referral to Physical Therapy Iron Polysacch [id number] (Poly-Iron 150 Forte) 150-0.025-1 MG capsule Chlorhexidine [...] if not improving.. (L) TKA 08/22 @PRAFUL PIEMNTEL INSTRUCTIONS GIVEN TODAY 08/13 @1PM Kathe BULLOCK CLEARANCE 08/19 @11:15AM CHENG NOTIFIED NO PREOP PAYMENT / PRECERT ; MEDICARE Follow up for 09/05/24 @ 10:30AM - Bret fernando/ Dick. documented in this encounter [facility] 08-07-2024 History of Present illness Narrative Images from the original note were not included. HISTORY OF PRESENT ILLNESS: EST PT Amina Lim is an 79 y.o. @ male. (R) KNEE (EST PT) S/P (R) TKA 04/04/24 (17WKS 6DAYS) XRAYS, 05/15/24 IN [facility] NO MDP / PREDNISONE FINISHED THERAPY (10 SESSIONS) @ [facility] NO PAIN MGMT DOING WELL. CONTINUES HEP / RECUMBENT BIKE - NOTES GOOD ROM ; DENIES ANY WEAKNESS. DENIES ANY SWELLING. STATES HE IS VERY PLEASED WITH SURGERY. CONTINUES TO USE VOLTAREN GEL. (L) KNEE (EST PT) RECHECK (L) KNEE ; HERE TO DISCUSS SURGICAL OPTIONS XRAYS, STANDING AP 05/15/24 IN [facility] NO MRI NO MDP / PREDNISONE [...] years old, or requires discharged to a [place] [facility] [place] facility, the patient may require to have additional inpatient hospital stay following the surgery. Physical therapy is contraindicated in this patient's case because of ksbz-tu-tsqg articulation of the patient's knee. El Ruiz D.O. documented in this encounter [facility] 06-26-2024 History of Present illness Narrative Images from the original note were not included. HISTORY OF PRESENT ILLNESS: EST PT Amina Lim is an 79 y.o. @ male. (R) KNEE (EST PT ; LAST APPT W/ [facility]) S/P (R) TKA 04/04/24 (11WKS 6DAYS) XRAYS, 05/15/24 IN [facility] NO MDP / PREDNISONE FINISHED THERAPY (10 SESSIONS) @ [facility] NO PAIN MGMT CONTINUES TO HAVE SOME DISCOMFORT - RATES 4-5/10 ON PAIN SCALE ; WORSE WITH PROLONGED ACTIVITY. FINISHED PHYSICAL THERAPY @ [facility], CONTINUES HEP - NOTES INCREASING ROM & [...] TO COMPENSATE XRAYS, STANDING AP 05/15/24 IN [facility] NO MRI NO MDP / PREDNISONE [...] TKA in September at follow up. El Stepanic, D.O. documented in this encounter [facility] 11-14-2023 Note [facility] Note [...] was seen at that time by Taylor SOGN and was noted that despite not being [...] , HDL , (more content not included)... [facility] 11-14-2023 Note Patient here for 1 m [...] All other systems reviewed and are negative. [facility] 10-02-2023 Note Patient here for 2 m o follow up SVT and hypertension. Had routine labs a week ago. Staying very active. Walked 1 mile today. Denies chest pain and SOB. Review of Systems Neurological: Positive for vertigo. Psychiatric/Behavioral: The patient is nervous/anxious. All other systems reviewed and are negative. [facility] 10-02-2023 Note [facility] Consult Note Reason [...] Coronary angiogram: @C (more content not included)... [facility] 08-08-2023 Note [facility] Consult Note Reason [...] I would brower (more content not included)... [facility] 06-21-2023 Note -episodes of SVT on holter -they appear like atach -30d monitor [facility] 06-21-2023 Note -no BB d/t bradycard ia at baseline -stress test to rule out cad [facility] 06-21-2023 Note -ct statin [facility] 06-21-2023 Note -cr 1.47, gfr 49 as of 05/2023 -sees nephrology [facility] 06-21-2023 Note Patient states he wa s told he has a heart mumur -no obvious murmur heard on exam, will order echo to rule out structural/valvular abnormalities [facility] 06-21-2023 Note - asymptomatic - 30-day event monitor to rule out significant bradycardia/AV blocks -treadmill stress for NSVT and to rule out chronotropic incompetence [facility] 06-21-2023 Note - stable, [facility] New patient here to establish care. Ref from Dr. Bullock for bradycardia. Wore Holter monitor recently. Sees [facility] nephrology for CKD. Has never seen cardiology before. He denies chest pain, SOB, and palpitations. Review of Systems All other systems reviewed and are negative. [facility] 06-06-2023 Note [facility] Note Reason for visit: new pt, bradycardia, nsvt on holter HPI: Amina Lim is a 78 y.o. year old with past medical history of chronic back pain, BPH, monoclonal gammopathy, kidney stones, hypertension, hyperlipidemia, bradycardia, ckd. He is a patient of Dr. Bullock. He was seeing his exhibits coordinator due to history of CKD which they [...] no thoracic deformity (more content not included)... [facility] 05-24-2023 History of Present illness Narrative [employer]IGATION OUTREACH Action/[facility] [place] Support: Called pt to schedule an appt [...] 2023 9:52 AM documented in this encounter [facility] 05-16-2023 Instructions Lyndsay Salgado DO - 05/16/2023 [...] have your physicians fax over your records [phone] Make an appointment with cardiology for slow [...] be greatly appreciated. documented in this encounter [facility] 05-16-2023 History of Present illness Narrative [facility] NEPHROLOGY & HYPERTENSION REPLACED BY [facility] SERVICE DATE: 05/16/2023 [...] that he was previously following with a exhibits coordinator that went over his labs every visit. States that his renal function was worsening and he was taken off a water pill that improved his renal function. His exhibits coordinator stopped seeing patients in the office and [...] Take 1 tablet by mouth once daily. Odtrv-2-ZNO-EPA-Fish Oil (FISH OIL) 1,000 mg (120 mg-180 mg) cap Take 1 g by mouth once daily. Lecithin 1,200 mg cap Take 1 capsule by mouth once daily. lovastatin (MEVACOR) 20 mg tablet Take 20 mg by mouth daily at bedtime. multivitamin (MULTIPLE VITAMINS) tablet Take 1 tablet by mouth once daily. Saw Kingston 160 mg capsule Take 160 mg by [...] 16, 2023 TIME: 10:06 AM OFFICE NUMBER: [phone] CC: REFERRING PROVIDER: Narciso Bullock MD PRIMARY CARE PHYSICIAN: Narciso Bullock MD documented in this encounter [facility] 09-06-2022 Evaluation note Encounter Date [...] Dr. Bullock for NSAIDs alternative like Tramadol [facility] 12-08-2021 Evaluation note* Encounter Date Diagnosis [...] He did try Tylenol with no effect. [facility] Other [id number] History of Past illness Narrative* Problem Noted Date Diagnosed Date Resolved Date Primary osteoarthritis of left shoulder 12/19/2016 06/25/2019 Prostate cancer 07/05/2016 06/25/2019 Peyronie's disease 07/08/2009 9 documented as of this encounter (statuses as of 05/16/2023) [facility] History of Past illness Narrative* Problem Noted Date Diagnosed Date Resolved Date Primary osteoarthritis of left shoulder 12/19/2016 06/25/2019 Prostate cancer 07/05/2016 06/25/2019 Peyronie's disease 07/08/2009 9 documented as of this encounter (statuses as of 06/26/2023) [facility] note* Diagnosis Chronic kidney disease, unspecified CKD stage- Primary Bradycardia Other specified cardiac dysrhythmias Generalized pain Anemia of renal disease Anemia in chronic kidney disease Primary hypertension Unspecified essential hypertension [facility] noteNo assessment information availableTrihealth Work Phone: Evaluation note* Diagnosis Acute pain of right knee- Primary History of right knee joint replacement Primary osteoarthritis of left knee documented in this encounter [facility] HealthcareEvaluation note* Diagnosis Encounter for other preprocedural examination [facility] Diagnosis Encounter for other preprocedural examination [facility]* Diagnosis Preop examination- Primary Unspecified pre-operative examination Primary osteoarthritis of left knee Eczema, unspecified type documented in this encounter [facility] HealthcareEvaluation note* Diagnosis Post-operative pain- Primary Other acute postoperative pain documented in this encounter [facility] HealthcareEvaluation note* Diagnosis S/P TKR (total knee replacement), left- Primary Post-operative pain Other acute postoperative pain documented in this encounter [facility] HealthcareEvaluation note* Diagnosis Post-operative pain Other acute postoperative pain documented in this encounter [facility]Evaluation note* Diagnosis S/P total knee replacement, left- Primary Acute postoperative pain of left knee documented in this encounter [facility] HealthcareEvaluation note* Diagnosis S/P total knee replacement, left- Primary Acute postoperative pain of left knee documented in this encounter [facility] HealthcareEvaluation note* Diagnosis S/P total knee replacement, left- Primary Acute postoperative pain of left knee S/P total knee replacement, left- Primary Acute postoperative pain of left knee documented in this encounter [facility] HealthcareEvaluation note* Diagnosis S/P total knee replacement, left- Primary Acute postoperative pain of left knee documented in this encounter [facility] HealthcareEvaluation note* Diagnosis S/P TKR (total knee replacement), right- Primary Primary osteoarthritis of left knee documented in this encounter [facility] HealthcareEvaluation note* Diagnosis Acute postoperative pain of left knee- Primary S/P total knee replacement, left documented in this encounter [facility] HealthcareEvaluation note* Diagnosis Acute postoperative pain of left knee- Primary S/P total knee replacement, left documented in this encounter [facility] HealthcareEvaluation note* Diagnosis Acute postoperative pain of left knee- Primary S/P total knee replacement, left documented in this encounter [facility] HealthcareEvaluation note* Diagnosis S/P TKR (total knee replacement), left- Primary Acute pain of left knee documented in this encounter [facility] Healthcare[facility] note* Diagnosis Pre-operative clearance- Primary Preoperative examination, unspecified Primary osteoarthritis of right shoulder Primary localized osteoarthrosis, shoulder region Prostate cancer (HCC) Malignant neoplasm of prostate Other hyperlipidemia Essential (primary) hypertension Unspecified essential hypertension Chronic kidney disease, stage III (moderate) (HCC) Chronic kidney disease, Stage III (moderate) Stage 3 chronic kidney disease, unspecified whether stage 3a or 3b CKD (HCC)- Primary [facility]* Diagnosis Acute postoperative pain of left knee- Primary S/P total knee replacement, left documented in this encounter [facility] Healthcare[facility] note* Diagnosis Pre-operative clearance- Primary Preoperative examination, unspecified Primary osteoarthritis of right shoulder Primary localized osteoarthrosis, shoulder region Prostate cancer (HCC) Malignant neoplasm of prostate Other hyperlipidemia Essential (primary) hypertension Unspecified essential hypertension Chronic kidney disease, stage III (moderate) (HCC) Chronic kidney disease, Stage III (moderate) Stage 3a chronic kidney disease (HCC)- Primary Anemia of renal disease 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) Primary hypertension Unspecified essential hypertension SVT (supraventricular tachycardia) (HCC) Other specified cardiac dysrhythmias [facility] Narrative - Reported* Type Description Date [...] HIS RIGHT EYE Hospitalization History see above [facility] Other History of Present illness Narrative* Shirlene [...] 2-3x/weeks x 6 weeks documented in [facility] CenterInstructionsNot on filedocumented in this encounterProChildren'[facility] SystemReason for referral (narrative)* Diagnostic Procedure Only (Routine) - Pending Review Specialty Diagnoses / Procedures Referred By Ravi avendano Referred To Contact US IMAGING Diagnoses Chronic kidney disease, unspecified CKD stage Procedures US KIDNEY/BLADDER US RETROPERITONEAL REAL TIME W/IMAGE COMPLETE Lyndsay Salgado DO [address] [place] [address] [facility] Referral ID Status Reason Start Date Expiration Date Visits Requested Visits Authorized [id number] Pending Review Auto-Generat ed Referral 05/16/2023 06/14/2024 1 1 * Consult, Test, Treat (Routine) - Authorized Specialty Diagnoses / Procedures Referred By Contac t Referred To Contact Pain Management Diagnoses Generalized pain Procedures CONSULT TO PAIN MGT OFFICE/OUTPATIENT [facility] 60-74 MINUTES Lyndsay Salgado DO [address] [place] [address] Referral ID Status Reason Start Date Expiration Date Visits Requested Visits Authorized [id number] Authorized PCP Requested Referral 05/16/2023 05/15/2024 1 1 * Consult, Test, Treat (Routine) - Authorized Specialty Diagnoses / Procedures Referred By Contac t Referred To Contact Cardiology Diagnoses Bradycardia Procedures CONSULT TO CARDIOLOGY OFFICE/OUTPATIENT [facility] 60-74 MINUTES Lyndsay Salgado DO [address] [place] [address] Referral ID Status Reason Start Date Expiration Date Visits Requested Visits Authorized [id number] Authorized PCP Requested Referral 05/16/2023 05/15/2024 1 1 [facility] for visit Narrative* Rehabilitation - Outpatient (Routine) - Authorized Specialty Diagnoses / Procedures Referred By Contac t Referred To Contact Physical Therapy Diagnoses S/P total knee replacement, left Procedures CO OFFICE/OUTPATIENT [facility] Queta Tilley, PA [address] [facility] [address] [place] [address] Phone: tel: fax: Seth Ragland, PT [address] [place] [address] Phone: tel: fax: Referral ID Status Reason Start Date Expiration Date Visits Requested Visits Authorized [id number] Authorized Consult and Treat 08/30/2024 02/26/2025 10 10 [facility]Reason for [facility] Narrative* Rehabilitation - Outpatient (Routine) - Authorized Specialty Diagnoses / Procedures Referred By Contac t Referred To Contact Physical Therapy Diagnoses S/P total knee replacement, left Procedures CO OFFICE/OUTPATIENT [facility] Queta Tilley PA [address] [place] [address] [place] [address] Phone: tel: fax: Seth Ragland, PT [address] [place] [address] Phone: tel: fax: Referral ID Status Reason Start Date Expiration Date Visits Requested Visits Authorized [id number] Authorized Consult and Treat 08/30/2024 10/15/2024 10 10 [facility] HealthcareReason for visit Narrative* Rehabilitation - Outpatient (Routine) - Authorized Specialty Diagnoses / Procedures Referred By Contac t Referred To Contact Physical Therapy Diagnoses Presence of left artificial knee joint Procedures CO MANUAL THERAPY TQS 1/> REGIONS EACH 15 MINUTES Queta Tilley PA [address] [place] [address] Phone: tel: fax: Seth Ragland, PT [address], [place] [address] Phone: tel: fax: Referral ID Status Reason Start Date Expiration Date Visits Requested Visits Authorized [id number] Authorized Consult and Treat 10/16/2024 04/14/2025 5 5 [facility] Summary Purpose Family History No [...] 2020 1:09pm Hospital Course Note HNO ID: [id number] Author: Jae [email or web address] (Raquel Osullivan MD Service: Orthopaedic Surgery Author Type: Resident Type: Discharge Summary Filed: 07/17/2019 7:27 PM Note Text: Attestation signed by Anhsu Thomas at 07/18/2019 7:58 AM Anshu Thomas [...] section and content) DATE CREATED AUTHOR 12/10/2018 [facility] DATE CREATED AUTHOR AUTHOR'S ORGANIZ ATION 07/18/2019 [facility] DATE CREATED AUTHOR AUTHOR'S ORGANIZ ATION 07/01/2020 [facility] DATE CREATED AUTHOR AUTHOR'S ORGANIZ ATION 01/23/2021 [facility] DATE CREATED AUTHOR AUTHOR'S ORGANIZ ATION 03/24/2023 [facility] DATE CREATED AUTHOR AUTHOR'S ORGANIZ ATION 11/15/2023 [facility] DATE CREATED AUTHOR AUTHOR'S ORGANIZ ATION 03/20/2024 [facility] DATE CREATED AUTHOR AUTHOR'S ORGANIZ ATION 08/15/2024 [facility] DATE CREATED AUTHOR AUTHOR'S ORGANIZ ATION 10/25/2024 [facility] DATE CREATED AUTHOR AUTHOR'S ORGANIZ ATION 10/25/2024 [facility] EPIC REASON FOR VISIT (unrecogniz ed section and content) Reason Comments New Patient Reason Comments Post-op Pain Reason Comments Pre-op Exam Reason Onset Date Comments Surgery 08/14/2024 Reason Comments Post-op Reason Comments Pain Post-op Reason Comments Pain Reason Comments Follow Up Source Comments (unrecognize d section and content) In the event this informatio n is protected by the Federal Confidentiality of Alcohol and Drug Abuse Patient Records regulations: The Federal rules restrict any use of the information to criminally investigate or prosecute any alcohol or drug abuse patient.[facility] the event this information is protected by the Federal Confidentiality of Alcohol and Drug Abuse Patient Records regulations: The Federal rules restrict any use of the information to criminally investigate or prosecute any alcohol or drug abuse patient.[facility] Center[facility] the event this information is protected by the Federal Confidentiality of Alcohol and Drug Abuse Patient Records regulations: The Federal rules restrict any use of the information to criminally investigate or prosecute any alcohol or drug abuse patient.[facility] the event this information is protected by the Federal Confidentiality of Alcohol and Drug Abuse Patient Records regulations: The Federal rules restrict any use of the information to criminally investigate or prosecute any alcohol or drug abuse patient.[facility] Center[facility] the event this information is protected by the Federal Confidentiality of Alcohol and Drug Abuse Patient Records regulations: The Federal rules restrict any use of the information to criminally investigate or prosecute any alcohol or drug abuse patient.[facility] Care Teams (unrecognized sec tion and content) 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 Specialty Start Date End Date Narciso Bullock MD PCP - General 07/06/09 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 Specialty Start Date End Date Narciso Bullock MD PCP - General 07/06/09 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 Specialty Start Date End Date Narciso [...] March 18, 2024 End: March 18, 2024 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 Specialty Start Date End Date Narciso Bullock MD [address] [place] [address] PCP - General Family Medicine 09/25/23 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 Specialty Start Date End Date Narciso Bullock MD [address] [place] [facility] [address] PCP - General Family Medicine 09/25/23 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 Start Date End Date Narciso Bullock MD [address] [place] [id number] PCP - General Family Medicine 08/13/24 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 Specialty Start Date End Date Narciso Bullock MD [address] [facility], [facility] PCP - General Family Medicine 08/13/24 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 Specialty Start Date End Date Narciso Bullock MD [address] [place] [facility] [address] PCP - General Family Medicine 09/25/23 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 Specialty Start Date End Date Narciso Bullock MD [address] [place] [facility] [address] PCP - General Family Medicine 09/25/23 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 Specialty Start Date End Date Narciso Bullock MD [address] [place] [address] PCP - General Family Medicine 09/25/23 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 Specialty Start Date End Date Narciso Bullock MD [address] [facility] [place] [address] PCP - General Family Medicine 08/13/24 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 Specialty Start Date End Date Narciso Bullock MD [address] [facility] [place] [address] PCP - General Family Medicine 09/25/23 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 Specialty Start Date End Date Narciso Bullock MD [address] [facility] [place] [address] PCP - General Family Medicine 09/25/23 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 Specialty Start Date End Date Narciso Bullock MD [address] [facility] [place] [address] PCP - General Family Medicine 09/25/23 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 Specialty Start Date End Date Narciso Bullock MD [address] [facility] [place] [address] PCP - General Family Medicine 09/25/23 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 Specialty Start Date End Date Narciso Bullock MD [address] [facility] [place] [address] PCP - General Family Medicine 09/25/23 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 Specialty Start Date End Date Narciso Bullock MD [address] [facility] [place] [address] PCP - General Family Medicine 09/25/23 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 Specialty Start Date End Date Narciso Bullock MD [address] [place] [facility] [address] PCP - General Family Medicine 09/25/23 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 Specialty Start Date End Date Narciso Bullock MD [address] [place] [facility] [address] PCP - General Family Medicine 09/25/23 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 Specialty Start Date End Date Narciso Bullock MD [address] [place] [facility] [address] PCP - General Family Medicine 09/25/23 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 Specialty Start Date End Date Narciso Bullock MD [address] [place] [facility] [address] PCP - General Family Medicine 09/25/23 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 Specialty Start Date End Date Narciso Bullock MD [address] [place] [facility] [address] PCP - General Family Medicine 09/25/23 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 Specialty Start Date End Date Narciso Bullock MD [address] [place] [facility] [address] PCP - General Family Medicine 09/25/23 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 Specialty Start Date End Date Narciso Bullock MD [address] [place] [facility] [address] PCP - General Family Medicine 09/25/23 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 [facility] [employer] [facility]. provides no warranty or guarantee of the accuracy or completeness of information in this document.
[2024-10-29 10:14] LABS: Alanine Aminotransferase 81 U/L (16-63); Aspartate Amino Transferase 27 U/L (15-37); Chol HDL Ratio 3.9; Cholesterol 174 mg/dL (<=200); HDL Cholesterol 45 mg/dL (40-60); Triglycerides 85 mg/dL (<=150)
== END 2024-10-29 09:02 | disposition home or self-care (01) ==
LOC: LAB 09:02
PROVIDERS: PCP Family Medicine; Visit Provider Internal Medicine Cardiovascular Disease
DX: E78.5 Hyperlipidemia, unspecified (principal)
CPT/HCPCS: 36415; 80061; 84450; 84460

== ENCOUNTER 2025-03-21 07:17 | Outpatient (OUT) | payer MEDICARE, OTHER, SELFPAY ==
--- OUTSIDE RECORDS SUMMARY | 2025-03-21 07:23 | XMS_ITS | CCD ---
Author Organization [facility] Care Team Providers Care Aoc Plans Intelligence Officer Name Role Phone TRELL HORNER Referring Unavailable Ileana Earl Unavailable ShuAiden juanradha Unavailable ARA Guy, DR STUART Primary Care Unavailable AVA, DR OWEN Admitting Unavailable AMBERASHI, DR OWEN Consulting Unavailable AVA, DR OWEN Attending Unavailable HOY ., DR STUART Admitting Unavailable HOY ., DR STUART Primary Care Unavailable HOY ., DR STUART Consulting Unavailable HOY ., DR STUART Attending Unavailable HOY ., DR STUART Admitting Unavailable HOY ., DR STUART Primary Care Unavailable HOY ., DR STUART Consulting Unavailable HOY ., DR STUART Attending Unavailable HOY ., DR STUATR Admitting Unavailable HOY ., DR STUART Primary Care Unavailable HOY ., DR STUART Consulting Unavailable HOY ., DR STUART Attending Unavailable Narciso Bullock MD Primary Care Provider [phone] MD Narciso Bullock Primary Care Provider [phone] CHRISTINE Tilley Attending Provider Queta Tilley Attending Unavailable Queta Tilley Admitting Unavailable Narciso Bullock Primary Care Unavailable Narciso Bullock MD Primary Care Provider [phone] QUETA TILLEY Referring Unavailable NARCISO BULLOCK Primary Care Unavailable QUETA TILLEY Attending Unavailable QUETA TILLEY Referring Unavailable NARCISO BULLOCK Primary Care Unavailable Narciso Bullock MD Primary Care Provider [phone] NARCISO BULLOCK Primary Care Unavailable LYNDSAY SALGADO Attending Unavailable QUETA TILLEY Attending Unavailable JR. RUIZ GEORGE C Attending Unavaila ble JR. HANNAH, EL Matos Referring Unavaila ble TILLEY, QUETA Mcnamara Attending Unavailable MEDVES, SHIRLENE Rowe Attending Unavailable TILLEY, QUETA J Referring Unavailable TILLEY, QUETA J Attending Unavailable MEDVES, SHIRLENE M Attending Unavailable STEPANIC, JR., EL Matos Referring Unavaila ble GUZIK, AMEENA Attending Unavailable STEPANIC, JR., EL Matos Referring Unavaila ble GUZIK, AMEENA Attending Unavailable STEPANIC, JR., EL Matos Referring Unavaila ble HOWARD, BONILLA Attending Unavailable STEPANIC, JR., EL Matos Referring Unavaila ble HOWARD, BONILLA Attending Unavailable STEPANIC, JR., EL Matos Referring Unavaila ble GUZIK, AMEENA Attending Unavailable STEPANIC, JR., EL Matos Referring Unavaila ble MEDVES, SHIRLENE Rowe Attending Unavailable STEPANIC, JR., EL Matos Referring Unavaila ble HOWARD, BONILLA Attending Unavailable STEPANIC, JR., EL Matos Referring Unavaila ble HISEYGIACOMO Attending Unavailable STEPANIC, JR., EL Matos Referring Unavaila ble TILLEY, QUETA Mcnamara Attending Unavailable TILLEY, QUETA Mcnamara Referring Unavailable MEDVES, SHIRLENE M Attending Unavailable STEPANIC, JR., EL Matos Referring Unavaila ble STEPANIC, JR., EL Matos Attending Unavaila ble STEPANIC, JR., EL Matos Attending Unavaila ble TILLEYQUETA Attending Unavailable TILLEY, QUETA Mcnamara Attending Unavailable SOUSAROSEANNE Attending Unavailable TILLEY, QUETA J Referring Unavailable SOUSA, ROSEANNE J Attending Unavailable TILLEY, QUETA J Referring Unavailable SOUSA, ROSEANNE Mcnamara Attending Unavailable TILLEY, QUETA J Referring Unavailable HISEYGIACOMO Attending Unavailable TILLEY, QUETA J Referring Unavailable [...] Attending Unavailable TILLEY, QUETA J Referring Unavailable HISEYGIACOMO Attending Unavailable TILLEY, QUETA J Referring Unavailable PHOENIX STEWARD Attending Unavailable Narciso Bullock MD Primary Care Provider [phone] Allergies Allergy Classification Reported Allergen(s) Allergy Type Date of Onset Reaction(s) Facility (20 sources) Acetaminophen / oxyCODONE Drug Allergy 4 Other [facility] (20 sources) Other Propensity to adverse reactions 4 Other [facility] Medications Current Medications Medication Drug Class(es) Dates Sig (Normalized) Sig (Original) acetaminophen 325 mg / HYDROcodone bitartrate 5 mg oral tablet (9 sources) Opioid Agonist Start: 09-17-2024 End: 09-22-2024 take 1 tablet by mouth every six hours for pain HYDROcodone-aceta minophen (Haslet) 5-325 MG tablet Indications: S/P total knee replacement, left Take 1 tablet by mouth every 6 (six) hours if needed for severe pain for up to 5 days 20 tablet 09/17/2024 09/22/2024 Active Start: 08-29-2024 End: 09-10-2024 take 1 tablet by mouth every six hours for pain HYDROcodone-acetaminophen (Haslet) 5-325 MG tablet Indications: Post-operative pain Take 1 tablet by mouth every 6 (six) hours if needed for severe pain for up to 5 days 20 tablet 09/05/2024 09/10/2024 Active Start: 08-21-2024 End: 08-26-2024 take 1 tablet by mouth every six hours for pain HYDROcodone-acetaminophen (Haslet) 5-325 MG tablet Indications: Post-operative pain Take 1 tablet by mouth every 6 (six) hours if needed for severe pain for up to 5 days 20 tablet 08/21/2024 08/26/2024 Active Acidophilus Extra Strength - (2 sources) Acidophilus Extr a Strength - as directed Orally Active Hyde 500 MG (2 sources) Hyde 500 MG a s directed Orally Active [...] evening and 1 drop before bedtime. Active End: 10-22-2024 take 1 drop(s) into the [...] by mouth twice daily. 10/22/2024 Discontinued take 1 tablet by dom th every twelve hours Diclofenac Sodium 75 MG 1 tablet Orally Twice a day Active Comment on above: Take 25 mg by mouth twice daily. ferrous sulfate 325 mg oral tablet (20 sources) Start: 5 take 1 tablet by mouth twice daily ferrous sulfate 325 mg (65 mg iron) tablet Take 1 tablet by mouth two times a day. 10/22/2024 Active Fish Oils (2 sources) take 1 capsule by mouth once daily Fish Oil 1000 MG 1 capsule Orally Once a day Active folic acid 1 mg / polysaccharide iron complex 150 mg / vitamin b12 0.025 mg oral capsule (12 sources) Vitamin B12 Start: 4 End: 4 take 1 tablet by mouth once daily Iron Polysacch Nfvmg-Q72-JP (Poly-Iron 150 Forte) 150-0.025-1 MG capsule Indications: [...] tablet Orally Once a day Active Saw [place] 540 mg (2 sources) take 1 capsule by mouth once daily Saw [place] 540 mg 1 Capsule Orally Daily Active [...] 10/22/2024 Discontinued take 3 tablets by mo uth three times weekly Ascorbic Acid (VITAMIN C) [...] Comment on above: Take 1 capsule by [facility] twice daily. Garlic preparation (1 source) Non-Standardized Food Allergenic Extract End: 3 take 1 tablet by mouth once daily GARLIC ORAL Indications: Prostate cancer (HCC) Take 1 tablet by mouth once daily. 0 05/16/2023 Discontinued Comment on above: Take 1 tablet by [facility] once daily. Lactobac no.41-Bifidobact no.7 (PROBIOTIC-10) 70 [...] Comment on above: Take 1 capsule by [facility] once daily. lecithin 1200 mg oral capsule (1 source) End: 3 take 1 capsule by mouth once daily Lecithin 1,200 mg cap Take 1 capsule by mouth once daily. 0 05/16/2023 Discontinued Comment on above: Take 1 capsule by [facility] once daily. losartan potassium 25 mg oral tablet (8 sources) Angiotensin 2 Receptor Igor Start: 3 End: 5 take 3 tablets by mouth once daily losartan (COZAAR) 25 mg tablet Take 3 tablets by mouth once daily. 10/03/2023 10/22/2024 Discontinued Start: 09-23-2016 take 1 tablet by dom th once daily losartan (COZAAR) 100 mg tablet Indications: Prostate cancer (HCC) Take 100 mg by mouth once daily. 0 09/23/2016 Active take 1 tablet by dom th once daily Losartan Potassium 50 MG TAKE [...] th once daily. multivitamin (MULTIPLE VITAMINS) tablet (5 [...] RNA Synthetase Inhibitor Antibacterial Start: 9 End: 5 mupirocin (BACTROBAN) 2 % ointment Apply 0.5 inch with cotton swab (Q-tip) to each nostril in the morning and evening for 5 days prior to and including day of surgery. 22 g 06/25/2019 10/22/2024 Discontinued Comment on above: Apply 0.5 inch with cotton swab (Q-tip) to each nostril in the morning and evening for 5 days prior to and including day of surgery. Wrgtw-2-JUR-EPA-Fi sh Oil (FISH OIL) 1,000 mg (120 mg-180 mg) cap (5 sources) End: take 1 capsule by mouth once daily Oitmo-7-UTR-EPA-Fish Oil (FISH OIL) 1,000 mg (120 mg-180 mg) cap Take 1 g by mouth once daily. 10/22/2024 Discontinued take 1 capsule by mouth once renee ly Ivhvj-5-MUG-EPA-Fish Oil (FISH OIL) 1,000 mg (120 mg-180 mg) cap Take 1 g by mouth once daily. Active take 1 capsule by mouth once renee ly Eghny-3-FUO-EPA-Fish Oil (FISH OIL) 1,000 mg (120 mg-180 [...] 50 mg by mouth once daily. Saw [place] 160 mg capsule (5 sources) End: 10-22-2024 take 1 capsule by mouth three times daily Saw [place] 160 mg capsule Take 160 mg by mouth three times daily. 10/22/2024 Discontinued take 1 capsule by mouth three ti mes daily Saw [place] 160 mg capsule Take 160 mg by mouth three times daily. Active take 1 capsule by mouth three ti mes daily [place] 160 mg capsule Take 160 mg by [...] Translations: [Dermatitis, unspecified] 08-13-2024 Episodic Cardiac dysrhythmias (1 source) Supraventricular tachycardia; Translations: [SVT (supraventricular tachycardia) (HCC)] 10-22-2024 Chronic Cardiac dysrhythmias (3 sources) Bradycardia; Translations: [Bradycardia, unspecified] Onset: 3 05-16-2023 Episodic Chronic kidney disease (11 sources) Chronic kidney disease stage 3; Translations: [Chronic kidney disease, stage 3 (moderate)] Onset: 8 05-16-2023 Chronic Chronic kidney disease (9 sources) Chronic kidney disease; Translations: [Chronic kidney [...] anemia, unspecified] Episodic Disorders of lipid metabolism (9 sources) Pure hypercholesterolemia, unspecified; Translations: [Hyperlipidemia, unspecified] [...] UNSPECIFIED; Translations: [COUGH, UNSPECIFIED] Onset: 2 Unclassified (2 sources) Preprocedural examination done 08-13-2024 Unclassified (1 source) Supraventricular tachycardia, unspecified; Translations: [Supraventricular tachycardia, unspecified] Onset: 3 Past or Other Problems Problem Classification Problem Date Documented Date Episodic/Chronic Cancer of prostate (2 sources) Malignant tumor of prostate; Translations: [Malignant neoplasm of prostate] Onset: 07-05-2016 Resolved: 06-25-2019 06-25-2019 Chronic Diabetes mellitus without complication (1 source) Other abnormal glucose; Translations: [OTHER ABNORMAL GLUCOSE] Onset: 09-02-2022 Episodic Malaise and fatigue (1 source) Other fatigue; Translations: [OTHER FATIGUE] Onset: 09-02-2022 Episodic Other aftercare (1 source) Other prison (current) drug therapy; Translations: [OTH ALF CURRENT DRUG THERAPY] Onset: 09-02-2022 Episodic Other [...] conditions (not mental disorders or infectious disease) (2 sources) Encounter for screening for malignant neoplasm of prostate; Translations: [Encounter for screening for malignant neoplasm of rectum] Onset: 09-02-2022 Episodic Other upper respiratory disease (1 source) Nasal congestion; Translations: [NASAL CONGESTION] Onset: 10-07-2022 Episodic Unclassified (1 source) CONTACT W/AND (SUSP) EXPOS COVID-19; Translations: [CONTACT W/AND (SUSP) EXPOS COVID-19] Onset: 10-03-2022 Unclassified (1 source) Supraventricular tachycardia, unspecified; Translations: [Supraventricular tachycardia, unspecified] Onset: 10-28-2024 Results Test Name Value Interpretation Reference Range Facility 36on 11-28-2024 36 Regarding lab result s from 10/29/2024: MD Lucia Chun [place] His LDL cholesterol is mildly elevated 112. The goal to be 100 or below. Advised patient to follow low-fat diet and recheck lipids in 3 months. Spoke with patient and he will have repeat labs prior to his next apt in April 2025. Order mailed to him. Normal [facility] Office Visiton 10-28-2024 Follow-up visit [id number] Amina Lim 1945 M Date Provider Department Center 10/28/2024 [id number]-[id number] STEWARD Family History Problem Relation Age of Onset Other Father Lupus Father Family Status - Relation Status Age at Father Level of Service:04340 MO OFFICE/OUTPATIENT ESTABLISHED MOD MDM 30 MIN Reason for Visit and Comments: Hypertension [317932] - Had labs 2 weeks ago. Heart Murmur [124] - Denies chest pain, SOB, palpitations, and lightheadedness/syncope. SVT [Other] Hyperlipidemia [182] - He took himself off lovastatin 3-4 months ago. No lipid since Sep 2023. Denies side effects from statin. Normal [facility] CNOVon 10-22-2024 CNOV Office Visit (KIDFRW ) -- AMINA LIM ([id number]) 1945 M Date Time Provider Department 10/22/24 10:20 AM LYNDSAY SALGADO During your visit today, we recorded the following information about you: Pulse Blood pressure Weight Height 64/minute 130/69 92.5 kg 1.791 m Lyndsay Salgado DO 10/22/2024 10:48 AM Signed Department of Kidney Medicine [facility] SERVICE DATE: 10/22/2024 SERVICE TIME: 10:27 [...] renal function. Following with cardiology at the [facility]. No longer taking NSAIDs after his [...] Take 1 tablet by mouth once daily. Wrqfx-2-MEO-EPA-Fish Oil (FISH OIL) 1,000 mg (120 mg-180 mg) cap Take 1 g by mouth once daily. lovastatin (MEVACOR) 20 mg tablet Take 20 mg by mouth daily at bedtime. multivitamin (MULTIPLE VITAMINS) tablet Take 1 tablet by mouth once daily. Saw [place] 160 mg capsule Take 160 mg by [...] Throat: Heari (more content not included)... Normal [facility] Zak 10-17-2024 [facility] Telephone (MIDILV) -- AMINA LIM ([id number]) 1945 M Date Time Provider Department 10/17/24 CASSIDY [facility] During your visit today, we recorded the following information about you: Cassidy Arita DO 10/17/2024 2:11 PM Signed ----- Message from RHODA Han sent at 10/17/2024 1:10 PM EST ----- Regarding: Lab orders for upcoming appt w/Dr. Salgado Contact: Patient is requesting labs for upcoming appt on 10/22/24. Labs need to be faxed to [facility] @ [phone]. Call pt when done ThanksDanielle Diana, DO 10/17/2024 2:17 PM Signed Covering for Dr Salgado CKD lab work ordered Cassidy Arita DO October 17, 2024, 2:15 PM Porfirio Hamilton MA 10/17/2024 5:05 PM Addendum Orders printed and faxed to number provided below. Confirmation received. Pt notified DEVIN Angel Diana, DO [facility] hour ago (2:17 PM) Please fax lab orders to [facility] and let patient know that I [...] 10/21/2024 8:21 AM Signed Fax received from [facility] lab in regards to pt PTH [...] Order(s):ALBUMIN/CREATININ E RATIO, URINE [SQUACR] Order #: [id number] FUTURE PROTEIN / CREATININE RATIO [SQPRATIO] Order #: [id number] FUTURE URINALYSIS WITH MICROSCOPIC, REFLEX CULTURE [SQUACII] Order #: [id number] FUTURE RENAL FUNCTION PANEL [SQRFP] Order #: [id number] FUTURE VITAMIN D 25 HYDROXY [SQVITD] Order #: [id number] FUTURE PTH INTACT [SQPTHI] Order #: [id number] FUTURE COMPLETE BLOOD COUNT [SQCBC] Order #: [id number] FUTURE Prescriptions as of 10/21/2024 - losartan [...] 1 tablet by mouth once daily. - Tvhle-1-TSK-EPA-Fish Oil (FISH OIL) 1,000 mg (120 mg-180 mg) cap Take 1 g by mouth once daily. - lovastatin (MEVACOR) 20 mg tablet Take 20 mg by mouth daily at bedtime. - multivitamin (MULTIPLE VITAMINS) tablet Take 1 tablet by mouth once daily. - Saw [place] 160 mg capsule Take 160 mg by [...] Status:Closed by PORFIRIO HAMILTON on 10/17/24 Normal [facility] XR Knee - left 1 or 2 [...] dislocation. Impression: Unremarkable left total knee arthroplasty [facility] Radiology Study observation (narrative) [facility] APTTon 08-13-2024 aPTT Coag (PPP) [Time] 35 s Pr [facility] Comment on above: NEW REFERENCE RANGE aPTT Coag (Bld) [Time] 35 s [facility] Comment on above: NEW REFERENCE RANGE PERFORMED AT [address] [place] [address] CBC AND AUTO DIFFon 08-13-20 24 ABSOLUTE BASOPHIL 0.1 X10E9/L Normal 0.0-0.2 [facility] Comment on above: Performed By: #### 1 4979-9 #### [facility] ([id number]) [address] [place] [address], [place] [address] #### CBCA, PINR, CMP #### [facility] ([id number]) [address], [address] [place] [address] ABSOLUTE NEUTROPHIL 5.3 X10E9/L Normal 1.5-6.6 [facility] Comment on above: Performed By: #### 1 4979-9 #### [facility] ([id number]) [address] [place] [address] #### CBCA, PINR, CMP #### [facility] ([id number]) [address], [address] [place] [address] Basophils/100 WBC (Bld) 0.8 % Normal [facility] Comment on above: Performed By: #### 1 4979-9 #### [facility] ([id number]) [address] [place] [address] #### CBCA, PINR, CMP #### [facility] ([id number]) [address] [place] [address] Eosinophils (Bld) [#/Vol] 0.2 10*3/uL Normal 0.0-0.4 [facility] Comment on above: Performed By: #### 1 4979-9 #### [facility] ([id number]) [address] [place] [address] #### CBCA, PINR, CMP #### [facility] ([id number]) [address], [address] [place] [address] Eosinophils/100 WBC (Bld) 2.1 % Normal [facility] Comment on above: Performed By: #### 1 4979-9 #### [facility] ([id number]) [address] [place] [address] #### CBCA, PINR, CMP #### [facility] ([id number]) [address], [address] [place] [address] Erythrocyte distribution width (RBC) [Ratio] 13.9 % Normal 11.5-15.0 [facility] Comment on above: Performed By: #### 1 4979-9 #### [facility] ([id number]) [address] [place] [address] #### CBCA, PINR, CMP #### [facility] ([id number]) [address], [address] [place] [address] Hematocrit (Bld) [Volume fraction] 39.0 % Normal 39-49 [facility] Comment on above: Performed By: #### 1 4979-9 #### [facility] ([id number]) [address] [place] [address] #### CBCA, PINR, CMP #### [facility] ([id number]) [address], [address] [place] [address] Hemoglobin (Bld) [Mass/Vol] 13.3 g/dL Normal 13.0-17.0 [facility] Comment on above: Performed By: #### 1 4979-9 #### [facility] ([id number]) [address] [place] [address] #### CBCA, PINR, CMP #### [facility] ([id number]) [address], [address] [place] [address] Lymphocytes (Bld) [#/Vol] 1.8 10*3/uL Normal 1.0-3.5 [facility] Comment on above: Performed By: #### 1 4979-9 #### [facility] ([id number]) [address] [place] [address] #### CBCA, PINR, CMP #### [facility] ([id number]) [address], [address] [place] [address] Lymphocytes/100 WBC (Bld) 22.6 % Normal [facility] Comment on above: Performed By: #### 1 4979-9 #### [facility] ([id number]) [address] [place] [address] #### CBCA, PINR, CMP #### [facility] ([id number]) [address], [address] [place] [address] MCH (RBC) [Entitic mass] 31.5 pg Normal 27-34 [facility] Comment on above: Performed By: #### 1 4979-9 #### [facility] ([id number]) [address] [place] [address] #### CBCA, PINR, CMP #### [facility] ([id number]) [address], [address] [place] [address] MCHC (RBC) [Mass/Vol] 34.0 g/dL Normal 32-36 [facility] Comment on above: Performed By: #### 1 4979-9 #### [facility] ([id number]) [address] [place] [address] #### CBCA, PINR, CMP #### [facility] ([id number]) [address], [address] [place] [address] MCV (RBC) [Entitic vol] 93 fL Normal 80-100 [facility] Comment on above: Performed By: #### 1 4979-9 #### [facility] ([id number]) [address] [place] [address] #### CBCA, PINR, CMP #### [facility] ([id number]) [address], [address] [place] [address] Monocytes (Bld) [#/Vol] 0.7 10*3/uL Normal 0-0.9 [facility] Comment on above: Performed By: #### 1 4979-9 #### [facility] ([id number]) [address] [place] [address] #### CBCA, PINR, CMP #### [facility] ([id number]) [address], [address] [place] [address] Monocytes/100 WBC (Bld) 8.2 % Normal [facility] Comment on above: Performed By: #### 1 4979-9 #### [facility] ([id number]) [address] [place] [address] #### CBCA, PINR, CMP #### [facility] ([id number]) [address], [address] [place] [address] Neutrophils/100 WBC (Bld) 66.3 % Normal [facility] Comment on above: Performed By: #### 1 4979-9 #### [facility] ([id number]) [address] [place] [address] #### CBCA, PINR, CMP #### [facility] ([id number]) [address], [address] [place] [address] Platelet mean volume (Bld) [Entitic vol] 8.2 fL Normal 7-12 [facility] Comment on above: Performed By: #### 1 4979-9 #### [facility] ([id number]) [address] [place] [address] #### CBCA, PINR, CMP #### [facility] ([id number]) [address], [address] [place] [address] Platelets (Bld) [#/Vol] 227 10*3/uL Normal 150-450 [facility] Comment on above: Performed By: #### 1 4979-9 #### [facility] ([id number]) [address] [place] [address] #### CBCA, PINR, CMP #### [facility] ([id number]) [address], [address] [place] [address] RBC COUNT 4.22 X10E12/L Normal 4.10-5.70 [facility] Comment on above: Performed By: #### 1 4979-9 #### [facility] ([id number]) [address] [place] [address] #### CBCA, PINR, CMP #### [facility] ([id number]) [address], [address] [place] [address] WBC (Bld) [#/Vol] 8.0 10*3/uL Normal 4.0-11.0 [facility] Comment on above: Performed By: #### 1 4979-9 #### [facility] ([id number]) [address] [place] [address] #### CBCA, PINR, CMP #### [facility] ([id number]) [address], [address] [place] [address] CBC auto differentialon 07-17 Basophils (Bld) [#/Vol] 0.1 10*3/uL [facility] Basophils/100 WBC (Bld) 0.8 % [facility] Eosinophils (Bld) [#/Vol] 0.2 10*3/uL [facility] Lymphocytes/100 WBC (Bld) 22.6 % [facility] MCH (RBC) [Entitic mass] 31.5 [...] Health System Platelets (Bld) [#/Vol] 227 10*3/uL [facility] RBC (Bld) [#/Vol] 4.22 10*6/uL [facility] WBC corrected for nucl RBC Auto (Bld) [#/Vol] 8 [facility] COMPREHENSIVE METABOLIC PANE Juan Daniel 08-13-2024 Albumin [Mass/Vol] 4.1 g/dL Normal 3.2-5.3 [facility] Comment on above: Performed By: #### 1 4979-9 #### [facility] ([id number]) [address] [place] [address] #### CBCA, PINR, CMP #### [facility] ([id number]) [address], [address] [place] [address] ALP [Catalytic activity/Vol] 40 U/L Normal 39-130 [facility] Comment on above: Performed By: #### 1 4979-9 #### [facility] ([id number]) [address] [place] [address] #### CBCA, PINR, CMP #### [facility] ([id number]) [address], [address] [place] [address] ALT [Catalytic activity/Vol] 21 U/L Normal 0-40 [facility] Comment on above: Performed By: #### 1 4979-9 #### [facility] [facility] ([id number]) [address] [place] [address] #### CBCA, PINR, CMP #### [facility] ([id number]) [address] [place] [address] Anion gap [Moles/Vol] 7 mmol/L Normal 5-15 [facility] Comment on above: Performed By: #### 1 4979-9 #### [facility] ([id number]) [address] [place] [address] #### CBCA, PINR, CMP #### [facility] ([id number]) [address] [place] [address] AST [Catalytic activity/Vol] 17 U/L Normal 0-41 [facility] Comment on above: Performed By: #### 1 4979-9 #### [facility] ([id number]) [address] [place] [address] #### CBCA, PINR, CMP #### [facility] ([id number]) [address] [place] [address] Bilirubin [Mass/Vol] 0.4 mg/dL Normal 0.3-1.2 [facility] Comment on above: Performed By: #### 1 4979-9 #### [facility] ([id number]) [address] [place] [address] #### CBCA, PINR, CMP #### [facility] ([id number]) [address] [place] [address] Calcium [Mass/Vol] 9.1 mg/dL Normal 8.5-10.5 [facility] Comment on above: Performed By: #### 1 4979-9 #### [facility] ([id number]) [address] [place] [address] #### CBCA, PINR, CMP #### [facility] ([id number]) [address] [facility], [address] [place] [address] Chloride [Moles/Vol] 100 mmol/L Normal 98-109 [facility] Comment on above: Performed By: #### 1 4979-9 #### [facility] ([id number]) [address] [place] [address] #### CBCA, PINR, CMP #### [facility] ([id number]) [address] [facility], [address] [place] [address] CO2 [Moles/Vol] 27 mmol/L Normal 22-32 [facility] Comment on above: Performed By: #### 1 4979-9 #### [facility] ([id number]) [address] [place] [address] #### CBCA, PINR, CMP #### [facility] ([id number]) [address] [facility], [address] [place] [address] Creatinine [Mass/Vol] 1.21 mg/dL Normal 0.60-1.30 [facility] Comment on above: Result Comment: METH OD TRACEABLE TO IDMS STANDARD Performed By: #### 1 4979-9 #### [facility] ([id number]) [address] [place] [address] #### CBCA, PINR, CMP #### [facility] ([id number]) [address] [facility], [address] [place] [address] GFR/1.73 sq M.predicted among non-blacks MDRD (S/P/Bld) [Vol rate/Area] 61 mL/min/{1.73_m2} Normal >59 [facility] Comment on above: Result Comment: Reported eGFR is based on the CKD-EPI 2020 equation that does not use a race coefficient. Performed By: #### 1 4979-9 #### [facility] ([id number]) [address] [place] [address] #### CBCA, PINR, CMP #### [facility] ([id number]) [address] [place] [address] Glucose [Mass/Vol] 87 mg/dL Normal 65-99 [facility] Comment on above: Performed By: #### 1 4979-9 #### [facility] ([id number]) [address] [place] [address] #### CBCA, PINR, CMP #### [facility] ([id number]) [address] [place] [address] Potassium [Moles/Vol] 4.2 mmol/L Normal 3.5-5.0 [facility] Comment on above: Performed By: #### 1 4979-9 #### [facility] ([id number]) [address] [place] [address] #### CBCA, PINR, CMP #### [facility] ([id number]) [address] [place] [address] Protein [Mass/Vol] 6.6 g/dL Normal 6.0-8.0 [facility] Comment on above: Performed By: #### 1 4979-9 #### [facility] ([id number]) [address] [place] [address] #### CBCA, PINR, CMP #### [facility] ([id number]) [address] [place] [address] Sodium [Moles/Vol] 134 mmol/L Normal 134-146 [facility] Comment on above: Performed By: #### 1 4979-9 #### [facility] ([id number]) [address] [facility], [place] [address] #### CBCA, PINR, CMP #### [facility] ([id number]) [address], [address] [place] [address] Urea nitrogen [Mass/Vol] 29 mg/dL High 5-27 [facility] Comment on above: Performed By: #### 1 4979-9 #### [facility] ([id number]) [address] [facility], [place] [address] #### CBCA, PINR, CMP #### [facility] ([id number]) [address] [facility], [address] [place] [address] Comprehensive metabolic pane juan daniel 08-13-2024 Albumin [Mass/Vol] 4.1 g/dL 3.2 - 5.3 g/dL [facility] ALP [Catalytic activity/Vol] 40 U/L 39 - 130 U/L [facility] ALT No additional P-5'-P [Catalytic activity/Vol] 21 U/L 0 - 40 U/L [facility] Anion gap [Moles/Vol] 7 mmol/L 5 - 15 mmol/L [facility] AST [Catalytic activity/Vol] 17 U/L 0 - 41 U/L [facility] Bilirubin [Mass/Vol] 0.4 mg/dL 0.3 - 1 .2 mg/dL [facility] Calcium [Mass/Vol] 9.1 mg/dL 8.5 - 10. 5 mg/dL [facility] Chloride [Moles/Vol] 100 mmol/L 98 - 10 9 mmol/L [facility] CO2 [Moles/Vol] 27 mmol/L 22 - 32 mmol/L [facility] Creatinine [Mass/Vol] 1.21 mg/dL 0.60 - 1.30 mg/dL [facility] Comment on above: METHOD TRACEABLE TO IDMS STANDARD eGFR (CKD-EPI)non-race dependent 61 - PINF [facility] Comment on above: Reported eGFR is based on the CKD-EPI 2020 equation that does not use a race coefficient. Glucose [Mass/Vol] 87 mg/dL 65 - 99 mg/dL [facility] Interpretation and review of laboratory results Abnormal [facility] Potassium [Moles/Vol] 4.2 mmol/L 3.5 - 5.0 mmol/L [facility] Protein [Mass/Vol] 6.6 g/dL 6.0 - 8.0 g/dL [facility] Sodium [Moles/Vol] 134 mmol/L 134 - 146 mmol/L [facility] Urea nitrogen [Mass/Vol] 29 mg/dL High 5 - 27 mg/dL [facility] PROTIME AND INRon 08-13-2024 INR Coag (PPP) [Relative time] 1.0 {INR} Normal 0.8-1.1 [facility] Comment on above: Performed By: #### 1 4979-9 #### [facility] ([id number]) [address] [place] [address] #### CBCA, PINR, CMP #### [facility] ([id number]) [address] [facility], [address] [place] [address] PT Coag (PPP) [Time] 11.1 s Normal 9.8-13.2 [facility] Comment on above: Performed By: #### 1 4979-9 #### [facility] ([id number]) [address] [place] [address] #### CBCA, PINR, CMP #### [facility] ([id number]) [address] [facility], [address] [place] [address] Protime & INRon 08-13-2024 INR Coag (PPP) [Relative time] 1 {INR} [facility] PT Coag (PPP) [Time] 11.1 s [facility] URINALYSISon 08-13-2024 Bilirubin Ql (U) Negative Normal NEG [facility] Comment on above: Performed By: #### U A #### [facility] ([id number]) [address] [place] [address] BLOOD/HGB Negative Normal NEG [facility] Comment on above: Performed By: #### U A #### [facility] ([id number]) [address] [place] [address] Color (U) YELLOW Normal YELLOW [facility] Comment on above: Performed By: #### U A #### [facility] ([id number]) [address], [address] [place] [address] Glucose Ql (U) Negative Normal NEG [facility] Comment on above: Performed By: #### U A #### [facility] ([id number]) [address], [address] [place] [address] Ketones Ql (U) Negative Normal NEG [facility] Comment on above: Performed By: #### U A #### [facility] ([id number]) [address], [address] [place] [address] Leukocyte esterase Test strip Ql (U) Negative Normal NEG [facility] Comment on above: Performed By: #### U A #### [facility] ([id number]) [address], [address] [place] [address] MUCOUS PRESENT Abnormal NONE [facility] Comment on above: Performed By: #### U A #### [facility] ([id number]) [address], [address] [place] [address] Nitrite Ql (U) Negative Normal NEG [facility] Comment on above: Performed By: #### U A #### [facility] ([id number]) [address] [place] [address] pH (U) 6.0 [pH] Normal 5.0-8.5 [facility] Comment on above: Performed By: #### U A #### [facility] ([id number]) [address], [address] [place] [address] Protein Ql (U) Trace Abnormal NEG [facility] Comment on above: Performed By: #### U A #### [facility] ([id number]) [address] [address] [place] [address] R.B.CELLS <1 Normal 0-5 [facility] Comment on above: Performed By: #### U A #### [facility] ([id number]) [address] [place] [address] Specific gravity (U) [Rel density] 1.028 Normal 1.003-1.03 5 [facility] Comment on above: Performed By: #### U A #### [facility] ([id number]) [address] [address] [place] [address] TURBIDITY CLEAR Normal CLEAR [facility] Comment on above: Performed By: #### U A #### [facility] ([id number]) [address], [address] [place] [address] Urobilinogen (U) [Mass/Vol] mg/dL Normal <1.1 [facility] Comment on above: Performed By: #### U A #### [facility] ([id number]) [address] [address] [place] [address] W.B.CELLS 1 /hpf Normal 0-5 [facility] Comment on above: Performed By: #### U A #### [facility] ([id number]) [address] [facility] [address] [place] [address] URINE CULTUREon 08-13-2024 Bacteria identified Cx Nom (U) CULTURE RESULTS <10,000 ORGANISMS/ML NORMAL URO GENITAL PAM Normal [facility] Comment on above: Performed By: #### 6 30-4 #### [facility] ([id number]) [address] [facility], [address] [place] [address] aPTT Coag (Bld) [Time]on [facility] aPTT Coag (PPP) [Time]on [facility] aPTT Coag (Bld) [Time] 35 s Normal 26-37 [facility] Comment on above: Result Comment: NEW REFERENCE RANGE Performed By: #### 1 4979-9 #### [facility] ([id number]) [address] [facility], [place] [address] #### CBCA, PINR, CMP #### [facility] ([id number]) [address] [facility], [address] [place] [address] Activated partial thrombopla stin time (aPTT) in platelet poor plasma by coagulation aOrdered By: Queta Tilley on 03-18-2024 aPTT Coag (PPP) [Time] 33.7 s 25.1-36.5 [facility] Comment on above: A hematocrit value g reater than 55% may lead to inaccurate results in coagulation testing. Patients having hematocrit values >55% require a special collection tube for coagulation studies. Please contact the laboratory at [phone] for redraw instructions. Alanine aminotransferase [En zymatic activity/volume] in Serum or PlasmaOrdered By: Queta Tilley on 03-18-2024 ALT [Catalytic activity/Vol] 22 U/L Normal 7-52 [facility] Comment on above: Performed By: #### C MP #### [facility] [id number] [facility] Albumin [Mass/volume] in Ser um or Plasma by Bromocresol green (BCG) dye binding methoOrdered By: Queta Tilley on 03-18-2024 Albumin BCG dye [Mass/Vol] 4.6 g/dL 3.5-5.7 [facility] Alkaline phosphatase [Enzyma tic activity/volume] in Serum or PlasmaOrdered By: Queta Tilley on 03-18-2024 ALP [Catalytic activity/Vol] 37 U/L Normal 34-104 [facility] Comment on above: Result Comment: PERF ORMED BY: [place] [address] PATHOLOGIST [employer] HUGO AVALOS M.D. Performed By: #### C MP #### [address] Aspartate aminotransferase [ Enzymatic activity/volume] in Serum or PlasmaOrdered By: Queta Tilley on 03-18-2024 AST [Catalytic activity/Vol] 16 U/L Normal 13-39 [facility] Comment on above: Performed By: #### C MP #### [address] Automated basophil %Ordered By: Queta Tilley on 03-18-2024 Basophils/100 WBC (Bld) 0.6 % Normal . [facility] Comment on above: Performed By: #### C BC #### [address] Automated basophil countOrde red By: Queta Tilley on 03-18-2024 Basophils (Bld) [#/Vol] 0.1 10*3/uL Normal 0.0-0.2 [facility] Comment on above: Result Comment: PERF ORMED BY: [place] [address] PATHOLOGIST [employer] HU[employer] AVALOS M.D. Performed By: #### C BC #### [address] Automated blood monocyte cou ntOrdered By: Queta Tilley on 03-18-2024 Monocytes (Bld) [#/Vol] 0.8 10*3/uL Normal 0.0-0.8 [facility] Comment on above: Performed By: #### C BC #### [address] Automated eosinophil %Ordere d By: Queta Tilley on 03-18-2024 Eosinophils/100 WBC (Bld) 0.8 % Normal . [facility] Comment on above: Performed By: #### C BC #### [address] Automated eosinophil countOr dered By: Queta Jarek on 03-18-2024 Eosinophils (Bld) [#/Vol] 0.1 10*3/uL Normal 0.0-0.45 [facility] Comment on above: Performed By: #### C BC #### [address] Automated monocyte %Ordered By: Queta Tilley on 03-18-2024 Monocytes/100 WBC (Bld) 8.0 % Normal . [facility] Comment on above: Performed By: #### C BC #### [address] Automated neutrophil %Ordere d By: Queta Tilley on 03-18-2024 Neutrophils/100 WBC (Bld) 64.7 % Normal . [facility] Comment on above: Performed By: #### C BC #### [address] Bilirubin Test strip Ql (U)O rdered By: Queta Tilley on 03-18-2024 Bilirubin Ql (U) Negative Negative [facility] Bilirubin.total [Mass/volume ] in Serum or PlasmaOrdered By: Queta Tilley on 03-18-2024 Bilirubin [Mass/Vol] 0.5 mg/dL Normal 0.3-1.[address] [facility] Comment on above: Performed By: #### C MP #### [address] Calcium [Mass/volume] in Ser um or PlasmaOrdered By: Queta Tilley on 03-18-2024 Calcium [Mass/Vol] 9.7 mg/dL Normal 8.6-10.3 [facility] Comment on above: Performed By: #### C MP #### [address] Carbon dioxide, total [Moles /volume] in Serum or PlasmaOrdered By: Queta Tilley on 03-18-2024 CO2 [Moles/Vol] 27.0 mmol/L Normal 21.0-31.0 [facility] Comment on above: Performed By: #### C MP #### [place] [address] [place] Chloride [Moles/volume] in S hafsa or PlasmaOrdered By: Queta Tilley on 03-18-2024 Chloride [Moles/Vol] 97 mmol/L Low 98-[address] [facility] Comment on above: Performed By: #### C MP #### [address] Color of Urine by AutoOrdere d By: Queta Tilley on 03-18-2024 Color (U) Yellow Normal Yellow [facility] Comment on above: Order Comment: Name Collection Type:: Clean-Voided Midstream Performed By: #### U A #### [address] Complete Blood Count Auto Di ffon 03-18-2024 Mean Corpuscular HGB Conc 33.6 g/dL Normal 32.5-35.6 [facility] Comment on above: Performed By: #### C BC #### [address] NRBC% 0.4 /100{WBC} Normal 0-0.5 [facility] Comment on above: Performed By: #### C BC #### [address] Comprehensive Metabolic Pane juan daniel 03-18-2024 Albumin [Mass/Vol] 4.6 g/dL Normal 3.5-5.7 [facility] Comment on above: Performed By: #### C MP #### [address] GFR/1.73 sq M.predicted MDRD (S/P/Bld) [Vol rate/Area] mL/min/{1.73_m2} Normal [facility] Comment on above: Performed By: #### C MP #### [address] Creatinine [Mass/volume] in Serum or PlasmaOrdered By: Queta Tilley on 03-18-2024 Creatinine [Mass/Vol] 1.19 mg/dL Normal 0.70-1.30 [facility] Comment on above: Performed By: #### C MP #### [facility] [address] [place] [address] ECG 12 lead ECGon 03-18-2024 ECG 12 lead ECG [facility] Main [place] [address] [place] [address] Electrocardiograph Report Signed Patient: Amina Lim MR#: [id number] 4 : 1945 Acct:[id number] Age/Sex: 78 / M ADM Date: 03/18/24 Loc: Room: Type: [facility] Attending Dr: Queta Tilley PA-C Ordering [...] 0 03/18/24 1508 Normal [facility] Erythrocyte distribution wid th [Ratio] by Automated countOrdered By: Queta Tilley on 03-18-2024 Erythrocyte distribution width (RBC) [Ratio] 14.1 % Normal 12.0-14.8 [facility] Comment on above: Performed By: #### C BC #### [facility] [address] [place] [address] [place] Erythrocytes [#/volume] in B lood by Automated countOrdered By: Queta Tilley on 03-18-2024 RBC (Bld) [#/Vol] 4.42 10*6/uL Normal 3.90-5.60 [facility] Comment on above: Performed By: #### C BC #### [address] Glucose [Mass/volume] in Ser um or PlasmaOrdered By: Queta Tilley on 03-18-2024 Glucose [Mass/Vol] 93 mg/dL Normal 70-100 [facility] Comment on above: ADA recommended refe rence rangeRandom Glucose Reference Range is dependent on time and content of last meal. Glucose of more than 200 mg/dL in a nonstressed, ambulatory subject supports the diagnosis of Diabetes Mellitus. Result Comment: [facility] om Glucose Reference Range is dependent on time and content of last meal. Glucose of more than 200 mg/dL in a nonstressed, ambulatory subject supports the diagnosis of Diabetes Mellitus. ADA recommended reference range Performed By: #### C MP #### [address] [place] [id number] [facility] Glucose [Mass/volume] in Uri ne by Test stripOrdered By: Queta Tilley on 03-18-2024 Glucose Test strip (U) [Mass/Vol] Normal mg/dL Normal [facility] Hematocrit [Volume Fraction] of Blood by Automated countOrdered By: Queta Tilley on 03-18-2024 Hematocrit (Bld) [Volume fraction] 41.0 % Normal 38.8-50.0 [facility] Comment on above: Performed By: #### C BC #### [place] [id number] [facility] Hemoglobin Test strip Ql (U) Ordered By: Queta Tilley on 03-18-2024 Hemoglobin Ql (U) Negative Negative [facility] Hemoglobin [Mass/volume] in BloodOrdered By: Queta Tilley on 03-18-2024 Hemoglobin (Bld) [Mass/Vol] 13.8 g/dL Normal 13.0-17.0 [facility] Comment on above: Performed By: #### C BC #### [place] [id number] [facility] INR in Platelet poor plasma by Coagulation assayOrdered By: Queta Tilley on 03-18-2024 INR Coag (PPP) [Relative time] 0.9 {INR} Normal [facility] Comment on above: INR Therapeutic Rang [...] Performed By: #### P T, PTT #### [address] Ketones [Presence] in Urine by Test stripOrdered By: Queta Tilley on 03-18-2024 Ketones Ql (U) Negative Normal Negative [facility] Comment on above: Order Comment: Name Collection Type:: Clean-Voided Midstream Performed By: #### U A #### [address] Leukocyte esterase [Presence ] in Urine by Test stripOrdered By: Queta Tilley on 03-18-2024 Leukocyte esterase Test strip Ql (U) Negative Normal Negative [facility] Comment on above: Order Comment: Name Collection Type:: Clean-Voided Midstream Performed By: #### U A #### [address] Leukocytes [#/volume] correc brady for nucleated erythrocytes in Blood by Automated counOrdered By: Queta Tilley on 03-18-2024 WBC corrected for nucl RBC Auto (Bld) [#/Vol] 9.4 10*3/uL 4.1-10.5 [facility] Leukocytes [#/volume] in Blo od by Automated countOrdered By: Queta Tilley on 03-18-2024 WBC (Bld) [#/Vol] 9.4 10*3/uL Normal 4.1-10.5 [facility] Comment on above: Performed By: #### C BC #### [facility] [address] Lymphocytes [#/volume] in Bl ood by Automated countOrdered By: Quetahaile Tilley on 03-18-2024 Lymphocytes (Bld) [#/Vol] 2.4 10*3/uL Normal 1.00-4.8 [facility] Comment on above: Performed By: #### C BC #### [address] Lymphocytes/100 leukocytes i n Blood by Automated countOrdered By: Queta Tilley on 03-18-2024 Lymphocytes/100 WBC (Bld) 25.9 % Normal . [facility] Comment on above: Performed By: #### C BC #### [address] MCH [Entitic mass] by Automa brady countOrdered By: Queta Tilley on 03-18-2024 MCH (RBC) [Entitic mass] 31.2 pg Normal 27.5-35.2 [facility] Comment on above: Performed By: #### C BC #### [address] MCHC Auto (RBC) [Mass/Vol]Or dered By: Queta Tilley on 03-18-2024 MCHC (RBC) [Mass/Vol] 33.6 g/dL 32.5-35.6 [facility] MCV [Entitic volume] by Auto mated countOrdered By: Queta Tilley on 03-18-2024 MCV (RBC) [Entitic vol] 92.9 fL Normal 83.5-101 [facility] Comment on above: Performed By: #### C BC #### [address] Neutrophils [#/volume] in Bl ood by Automated countOrdered By: Queta Tilley on 03-18-2024 Neutrophils (Bld) [#/Vol] 6.1 10*3/uL Normal 1.8-7.7 [facility] Comment on above: Performed By: #### C BC #### [address] Nitrite Test strip Ql (U)Ord ered By: Queta Tilley on 03-18-2024 Nitrite Ql (U) Negative Negative [facility] No Panel InformationOrdered By: Queta Tilley on 03-18-2024 Estimated GFR (CKD-EPI) > 60.0 mL/Min [facility] Creatinine Clearance (Chem N/A [facility] Nucleated erythrocytes [Pres ence] in Blood by Automated countOrdered By: Queta Tilley on 03-18-2024 Nucleated RBC Auto Ql (Bld) 0.4 /100{WBC} 0-0.5 [facility] Partial Thromboplastin Timeo n 03-18-2024 aPTT Coag (Bld) [Time] 33.7 s Normal 25.1-36.5 [facility] Comment on above: Result Comment: A he matocrit value greater than 55% may lead to inaccurate results in coagulation testing. Patients having hematocrit values >55% require a special collection tube for coagulation studies. Please contact the laboratory at [phone] for redraw instructions. PERFORMED BY: [place] [address] PATHOLOGIST [employer] HUGO AVALOS M.D. Performed By: #### P T, PTT #### [address] Platelet mean volume [Entiti c volume] in Blood by Automated countOrdered By: Queta Tilley on 03-18-2024 Platelet mean volume (Bld) [Entitic vol] 7.7 fL Normal 6.6-10.1 [facility] Comment on above: Performed By: #### C BC #### [place] [address] [place] Platelets [#/volume] in Bloo d by Automated countOrdered By: Queta Tilley on 03-18-2024 Platelets (Bld) [#/Vol] 220 10*3/uL Normal 150-450 [facility] Comment on above: Performed By: #### C BC #### [place] [address] [place] Potassium [Moles/volume] in Serum or PlasmaOrdered By: Queta Tilley on 03-18-2024 Potassium [Moles/Vol] 4.8 mmol/L Normal 3.5-5.1 [facility] Comment on above: Performed By: #### C MP #### [address] Protein Test strip (U) [Mass /Vol]Ordered By: Queta Tilley on 03-18-2024 Protein (U) [Mass/Vol] Negative Negative [facility] Protein [Mass/volume] in Ser um or PlasmaOrdered By: Queta Tilley on 03-18-2024 Protein [Mass/Vol] 6.9 g/dL Normal 6.4-8.9 [facility] Comment on above: Performed By: #### C MP #### [address] Prothrombin time (PT)Ordered By: Queta Tilley on 03-18-2024 PT Coag (PPP) [Time] 11.0 s Normal 9.0-12.[address] [facility] Comment on above: A hematocrit value g reater than 55% may lead to inaccurate results in coagulation testing. Patients having hematocrit values >55% require a special collection tube for coagulation studies. Please contact the laboratory at [phone] for redraw instructions. Result Comment: A he matocrit value greater than 55% may lead to inaccurate results in coagulation testing. Patients having hematocrit values >55% require a special collection tube for coagulation studies. Please contact the laboratory at [phone] for redraw instructions. Performed By: #### P T, PTT #### [address] Serum globulin measurement b y calculation (mass/volume)Ordered By: Queta Tilley on 03-18-2024 Globulin (S) [Mass/Vol] 2.3 g/dL Normal [facility] Comment on above: Performed By: #### C MP #### [address] Serum or plasma albumin/glob ulin mass ratioOrdered By: Queta Tilley on 03-18-2024 Albumin/Globulin [Mass ratio] 2.0 {ratio} Normal [facility] Comment on above: Performed By: #### C MP #### [address] Serum or plasma anion gap de terminationOrdered By: Queta Tilley on 03-18-2024 Anion gap [Moles/Vol] 11.8 mmol/L Normal 6.0-15.0 [facility] Comment on above: Performed By: #### C MP #### [address] Sodium [Moles/volume] in Ser um or PlasmaOrdered By: Queta Tilley on 03-18-2024 Sodium [Moles/Vol] 131 mmol/L Low 136-145 [facility] Comment on above: Performed By: #### C MP #### [address] Specific gravity Test strip (U) [Rel density]Ordered By: Queta Tilley on 03-18-2024 Specific gravity (U) [Rel density] 1.022 1.001-1.03 0 [facility] Urea nitrogen [Mass/volume] in Serum or PlasmaOrdered By: Queta Tilley on 03-18-2024 Urea nitrogen [Mass/Vol] 26 mg/dL High 7-25 [facility] Comment on above: Performed By: #### C MP #### [address] Urinalysison 03-18-2024 Bilirubin,Urine Negative Normal Negative [facility] Comment on above: Order Comment: Name Collection Type:: Clean-Voided Midstream Performed By: #### U A #### [address] Glucose Ql (U) Normal Normal Normal [facility] Comment on above: Order Comment: Name Collection Type:: Clean-Voided Midstream Performed By: #### U A #### [address] Nitrite,Urine Negative Normal Negative [facility] Comment on above: Order Comment: Name Collection Type:: Clean-Voided Midstream Performed By: #### U A #### [place] [address] [place] Occult Blood,Urine Negative Normal Negative [facility] Comment on above: Order Comment: Name Collection Type:: Clean-Voided Midstream Result Comment: PERF ORMED BY: [place] [address] PATHOLOGIST [employer] HUGO AVALOS M.D. Performed By: #### U A #### [place] [address] [place] Protein,Urine Negative Normal Negative [facility] Comment on above: Order Comment: Name Collection Type:: Clean-Voided Midstream Performed By: #### U A #### [address] Specificy Etoile,Urine 1.022 Normal 1.001-1.03 0 [facility] Comment on above: Order Comment: Name Collection Type:: Clean-Voided Midstream Performed By: #### U A #### [address] Urobilinogen,Urine Normal Normal Normal [facility] Comment on above: Order Comment: Name Collection Type:: Clean-Voided Midstream Performed By: #### U A #### [address] Urine Cultureon 03-18-2024 Bacteria identified Cx Nom (U) No Growth 2 Days PERFORMED BY: [place] [address] PATHOLOGIST [employer] HUGO AVALOS M.D. Normal [facility] Comment on above: Performed By: #### C UU #### [address] Urine appearanceOrdered By: Queta Tilley on 03-18-2024 Appearance (U) Clear Normal Clear [facility] Comment on above: Order Comment: Name Collection Type:: Clean-Voided Midstream Performed By: #### U A #### [address] [place] [address] [facility] Urobilinogen Test strip (U) [Mass/Vol]Ordered By: Queta Tilley on 03-18-2024 Urobilinogen (U) [Mass/Vol] Normal mg/dL Normal [facility] XR bonelength lower extremit yon 03-18-2024 XR bonelength lower extremity [facility] [place] [address] [place] [id number] XRay Report Signed Patient: Amina Lim MR#: [id number] 4 : 1945 Acct:[id number] Age/Sex: 78 / M ADM Date: 03/18/24 Loc: Room: Type: [facility] Attending Dr: Queta Tilley PA-C Copies [...] Kelly Banegas M.D.03/18/2024 4:55 PM Dictation Location: [place] [address] Transcribed By: [facility] 03/18/241654 Dictated By: Kelly Banegas II, MD 03/18/241653 Signed By: 03/18/241654 Mimi [facility] pH of Urine by Test stripOrd ered By: Queta Tilley on 03-18-2024 pH (U) 5.5 [pH] Normal 5.0-9.0 [facility] Comment on above: Order Comment: Name Collection Type:: Clean-Voided Midstream Performed By: #### U A #### [facility] [address] XR KNEE DUSTIN 3 Von 03-15-2023 XR KNEE DUSTIN 3 V EXAM: XR KNEE DUSTIN 3 V HISTORY: Osteoarthritis COMPARISON: None. TECHNIQUE: 3 views FINDINGS: There is no acute fracture or dislocation. There are mild degenerative changes. The soft tissues are unremarkable. IMPRESSION: Mild degenerative changes as above. Electronically authenticated by: KELLY LARSON Date: 2023-03-15 12:38 Normal [facility] Covid-19 PCR (CVDTBH)on 09-15 SARS-CoV-2 (COVID-19) RNA DHARA+probe Ql (Unsp spec) Not detected Normal NOT DETECTED [facility] Comment on above: Result Comment: When [...] for this test is supported by the [place] of Health and Human Service's declaration that [...] be used). Performed By: #### C VDTBH ####[facility] [address] [place], [place] [address]DiMalena Xena Neeraj INFLUENZA A AND B AGon 10-03 INFLUANEGH SEE BELOW Normal [facility] Comment on above: Result Comment: Nega tive for Flu A protein angiten. Infection due to Flu A cannot be ruled out. Flu A angiten in the sample may be below the detection limit of the test. Performed By: #### I NFLUAB #### [facility] [address] [place] [address] Dr. Xena Pickard INFLUBNEG SEE BELOW Normal [facility] Comment on above: Result Comment: Nega tive for Flu B protein antigen. Infection due to Flu B cannot be ruled out. Flu B antigen in the sample may be below the detection limit of the test. Performed By: #### I NFLUAB #### [facility] [address] [address] [address] Xena Pickard INFLUENZA A AG Negative Normal NEGATIVE SEE COMMENT [facility] Comment on above: Performed By: #### I NFLUAB #### [facility] [address] [place] [address] Dr. Xena Pickard INFLUENZA B AG Negative Normal NEGATIVE SEE COMMENT [facility] Comment on above: Performed By: #### I NFLUAB #### [facility] [address] [place] [address] Dr. Xena Pickard INTERNAL CONTROLS Within Normal Limits Normal Wi thin Normal Limits [facility] Comment on above: Performed By: #### I NFLUAB #### [facility] [address] [place] [address] Dr. Xena Pickard INSULINon 09-02-2022 Insulin 14.1 uIU/mL Normal 2.6-24.9 [facility] Comment on above: Performed By: #### I NSULIN ####[facility] [address] [place] [address]Dr. Xena Pickard PTH INTACTon 09-02-2022 PTH, Intact 14 pg/mL Critically low 15-65 [facility] Comment on above: Performed By: #### P THINT #### [facility] [address] [place] [address] Dr. Xena Pickard CBC AUTO DIFFon 09-01-2022 BASO # 0.0 103/ul Normal 0.0-0.1 [facility] Comment on above: Performed By: #### C BC #### [facility] [address] [place] [address] Dr. Xena Pickard Basophils/100 WBC (Bld) 0.6 % Normal 0.2-2.0 [facility] Comment on above: Performed By: #### C BC #### [facility] [address] [place] [address] Dr. Xena Pickard EO # 0.2 103/ul Normal 0.0-0.7 [facility] Comment on above: Performed By: #### C BC #### [facility] [address] [place] [address] Dr. Xena Pickard Eosinophils/100 WBC (Bld) 2.5 % Normal 0.9-7.0 [facility] Comment on above: Performed By: #### C BC #### [facility] [address] [place] [address] Dr. Xena Pickard Erythrocyte distribution width (RBC) [Ratio] 13.5 % Normal 11.0-15.0 [facility] Comment on above: Performed By: #### C BC #### [facility] [address] [place] [address] Dr. Xena Pickard Hematocrit (Bld) [Volume fraction] 38.3 % Critically low 42.0-54.0 [facility] Comment on above: Performed By: #### C BC #### [facility] [address] [place] [address] Dr. Xena Pickard Hemoglobin (Bld) [Mass/Vol] 13.0 g/dL Critically low 14.0-18.0 [facility] Comment on above: Performed By: #### C BC #### [facility] [address] [place] [address] Dr. Xena Pickard IG # 0.03 10e3/ul Normal 0.00-0.03 [facility] Comment on above: Performed By: #### C BC #### [facility] [address] [place] [address] Dr. Xena Pickard IG % 0.4 % Normal 0.0-0.5 [facility] Comment on above: Performed By: #### C BC #### [facility] [address] [place] [address] Dr. Xena Pickard LYMPH # 2.2 103/ul Normal 1.2-3.8 [facility] Comment on above: Performed By: #### C BC #### [facility] [address] [place] [address] Dr. Xena Pickard Lymphocytes/100 WBC (Bld) 31.5 % Normal 20.5-60.0 [facility] Comment on above: Performed By: #### C BC #### [facility] [address] [place] [address] Dr. Xena Pickard MANUAL DIFF REQ NO Normal [facility] Comment on above: Performed By: #### C BC #### [facility] [address] [place] [address] Dr. Xena Pickard MCH (RBC) [Entitic mass] 30.5 pg Normal 25.9-34.0 [facility] Comment on above: Performed By: #### C BC #### [facility] [address] [place] [address] Dr. Xena Pickard MCHC (RBC) [Mass/Vol] 33.9 g/dL Normal 29.9-35.2 [facility] Comment on above: Performed By: #### C BC #### [facility] [address] [place] [address] Dr. Xena Pickard MCV (RBC) [Entitic vol] 89.9 fL Normal 80.0-94.0 [facility] Comment on above: Performed By: #### C BC #### [facility] [address] [place] [address] Dr. Xena Pickard MONO # 0.6 103/ul Normal 0.3-0.8 [facility] Comment on above: Performed By: #### C BC #### [facility] [address] [place] [address] Dr. Xena Pickard Monocytes/100 WBC (Bld) 8.2 % Normal 1.7-12.0 [facility] Comment on above: Performed By: #### C BC #### [facility] [address] [place] [address] Dr. Xena Pickard NEUT # 4.0 103/ul Normal 1.4-6.5 [facility] Comment on above: Performed By: #### C BC #### [facility] [address] [address] [address] Xena Pickard Neutrophils/100 WBC (Bld) 56.8 % Normal 43.0-75.0 [facility] Comment on above: Performed By: #### C BC #### [facility] [address] [address] [address] Xena Pickard Platelet mean volume (Bld) [Entitic vol] 10.2 fL Normal 9.5-13.5 [facility] Comment on above: Performed By: #### C BC #### [facility] [address] [address] [address] Xena Pickard PLT 185 103/ul Normal 150-450 [facility] Comment on above: Performed By: #### C BC #### [facility] [address] [address] [address] Xena Pickard RBC 4.26 106/ul Critically low 4.70-6.10 [facility] Comment on above: Performed By: #### C BC #### [facility] [address] [address] [address] Xena Pickard WBC 7.1 103/ul Normal 4.0-11.0 [facility] Comment on above: Performed By: #### C BC #### [facility] [address] [address] [address] Xena Pickard GLYCOHEMOGLOBIN A1Con 2021 ADA RECOMMENDATION SEE BELOW Normal [facility] Comment on above: Result Comment: ADA RECOMMENDED LIMIT 4.0 - 6.0 ADA THERAPEUTIC TARGET < 7.0 ACTION SUGGESTED > 7.0 Performed By: #### A 1C #### [facility] [address] [place] [address] Dr. Xena Pickard Glucose [Mass/Vol] 120 mg/dL Normal [facility] Comment on above: Performed By: #### A 1C #### [facility] [address] [place] [address] Dr. Xena Pickard HbA1c (Bld) [Mass fraction] 5.8 % Normal 4.5-6.2 [facility] Comment on above: Performed By: #### A 1C #### [facility] [address] [address] [address] Xena Pickard LIPID PROFILEon 09-01-2022 CHOL-HDL RATIO NORM SEE BELOW Normal [facility] Comment on above: Result Comment: 3.3 - 4.4 LOW RISK 4.4 - 7.1 AVERAGE RISK 7.1 - 11.0 MODERATE RISK >11.0 HIGH RISK Performed By: #### L IPID, URIC, CMP #### [facility] [address] [address] [address] Xena Pickard Cholesterol [Mass/Vol] 166 mg/dL Normal <=200 [facility] Comment on above: Performed By: #### L IPID, URIC, CMP #### [facility] [address] [place] [address] Dr. Xena Pickard Cholesterol in HDL [Mass/Vol] 52 mg/dL Normal 40-60 [facility] Comment on above: Performed By: #### L IPID, URIC, CMP #### [facility] [address] [place] [address] Dr. Xena Pickard Cholesterol in LDL [Mass/Vol] 100.8 mg/dL Normal [facility] Comment on above: Performed By: #### L IPID, URIC, CMP #### [facility] [address] [place] [address] Dr. Xena Pickard Cholesterol.total/Chol esterol in HDL [Mass ratio] 3.2 {ratio} Normal [facility] Comment on above: Performed By: #### L IPID, URIC, CMP #### [facility] [address] [address] [address] Xena Pickard HDL NORMAL > or = 60 mg/dl - LO W CARDIOVASCULAR RISK <40 mg/dl - HIGH CARDIOVASCULAR RISK Normal [facility] Comment on above: Performed By: #### L IPID, URIC, CMP #### [facility] [address] [place] [address] Dr. Xena Pickard LDL CALC NORMAL SEE BELOW Normal [facility] Comment on above: Result Comment: <100 mg/dl OPTIMAL 100 - 129 mg/dl NEAR OR ABOVE OPTIMAL 130 - 159 mg/dl BORDERLINE HIGH 160 - 189 mg/dl HIGH >190 mg/dl VERY HIGH Performed By: #### L IPID, URIC, CMP #### [facility] [address] [address] [address] Xena Pickard Triglyceride [Mass/Vol] 66 mg/dL Normal <=150 [facility] Comment on above: Performed By: #### L IPID, URIC, CMP #### [facility] [address] [address] [address] Xena Pickadr VLDL CALC 13.2 mg/dL Normal [facility] Comment on above: Performed By: #### L IPID, URIC, CMP #### [facility] [address] [address] [address] Xena Pickard PHOSPHORUSon 09-01-2022 Phosphate [Mass/Vol] 3.3 mg/dL Normal 2.6-4.7 [facility] Comment on above: Performed By: #### P HOS ####[facility] [address] [address]Dr. Xena Pickard PROF 14(COMP METB)on 022 Albumin [Mass/Vol] 3.9 g/dL Normal 3.4-5.0 [facility] Comment on above: Performed By: #### L IPID, URIC, CMP #### [facility] [address] [address] [address] Xena Pickard Albumin/Globulin [Mass ratio] 1.2 {ratio} Normal [facility] Comment on above: Performed By: #### L IPID, URIC, CMP #### [facility] [address] [address] [address] Xena Pickard ALP [Catalytic activity/Vol] 44 U/L Critically low 46-116 [facility] Comment on above: Performed By: #### L IPID, URIC, CMP #### [facility] [address] [address] [address] Xena Pickard ALT [Catalytic activity/Vol] 38 U/L Normal 16-63 [facility] Comment on above: Performed By: #### L IPID, URIC, CMP #### [facility] [address] [address] [address] Xena Pickard Anion gap [Moles/Vol] 12.3 mmol/L Normal Th e [facility] Comment on above: Performed By: #### L IPID, URIC, CMP #### [facility] [address] [address] [address] Xena Pickard AST [Catalytic activity/Vol] 16 U/L Normal 15-37 [facility] Comment on above: Performed By: #### L IPID, URIC, CMP #### [facility] [address] [address] [address] Xena Pickard Bilirubin [Mass/Vol] 0.5 mg/dL Normal 0.2-1.0 [facility] Comment on above: Performed By: #### L IPID, URIC, CMP #### [facility] [address] [place] [address] Dr. Xena Pickard Calcium [Mass/Vol] 8.7 mg/dL Normal 8.5-10.1 [facility] Comment on above: Performed By: #### L IPID, URIC, CMP #### [facility] [address] [place] [address] Dr. Xena Pickard Chloride [Moles/Vol] 101 mmol/L Normal 98-107 [facility] Comment on above: Performed By: #### L IPID, URIC, CMP #### [facility] [address] [place] [address] Dr. Xena Pickard CO2 [Moles/Vol] 26.8 mmol/L Normal 21.0-32.0 [facility] Comment on above: Performed By: #### L IPID, URIC, CMP #### [facility] [address] [place] [address] Dr. Xena Pickard Creatinine [Mass/Vol] 1.41 mg/dL Critically high 0.70-1.30 [facility] Comment on above: Performed By: #### L IPID, URIC, CMP #### [facility] [address] [place] [address] Dr. Xena Pickard EGFR-AF [place] 59 mL/min/1.73m2 Critically low >=60 [facility] Comment on above: Performed By: #### L IPID, URIC, CMP #### [facility] [address] [place] [address] Dr. Xena Pickard EGFR-NON AF [place] 49 mL/min/1.73m2 Critically low >=60 [facility] Comment on above: Performed By: #### L IPID, URIC, CMP #### [facility] [address] [place] [address] Dr. Xena Pickard Globulin (S) [Mass/Vol] 3.3 g/dL Normal [facility] Comment on above: Performed By: #### L IPID, URIC, CMP #### [facility] [address] [place] [address] Dr. Xena Pickard Glucose [Mass/Vol] 106 mg/dL Normal 74-106 [facility] Comment on above: Performed By: #### L IPID, URIC, CMP #### [facility] [address] [place] [address] Dr. Xena Pickard Potassium [Moles/Vol] 4.1 mmol/L Normal 3.5-5.1 [facility] Comment on above: Performed By: #### L IPID, URIC, CMP #### [facility] [address] [place] [address] Dr. Xena Pickard Protein [Mass/Vol] 7.2 g/dL Normal 6.4-8.2 [facility] Comment on above: Performed By: #### L IPID, URIC, CMP #### [facility] [address] [place] [address] Dr. Xena Pickard Sodium [Moles/Vol] 136 mmol/L Normal 136-145 [facility] Comment on above: Performed By: #### L IPID, URIC, CMP #### [facility] [address] [place] [address] Dr. Xena Pickard Urea nitrogen [Mass/Vol] 33.0 mg/dL Critically high 7.0-18.0 [facility] Comment on above: Performed By: #### L IPID, URIC, CMP #### [facility] [address] [place] [address] Dr. Xena Pickard Urea nitrogen/Creatinine [Mass ratio] 23.4 mg/mg Normal [facility] Comment on above: Performed By: #### L IPID, URIC, CMP #### [facility] [address] [place] [address] Dr. Xena Pickard URIC ACID SERUMon 09-01-2022 Urate [Mass/Vol] 5.1 mg/dL Normal 3.5-7.2 [facility] Comment on above: Performed By: #### L IPID, URIC, CMP #### [facility] [address] [place] [address] Dr. Xena Pickard URINE T PROTEIN CREAT RATIOo n 09-01-2022 UR TOTAL PROTEIN <6.0 Normal <=12.0 [facility] Comment on above: Performed By: #### U RTPCR #### [facility] [address] [place] [address] Dr. Xena Pickard URINE CREAT 36.48 mg/dL Normal 20.00-300. 00 [facility] Comment on above: Performed By: #### U RTPCR #### [facility] [address] [place] [address] Dr. Xena Pickard CNNURSEon 01-07-2021 [facility] Nurse Visit (COVAMD) -- AMINA LIM ([id number]) 1945 M Date Time Provider Department 01/07/21 NEIL PIERCE) LOTTIE During your visit today, we recorded the following information about you: Allergies As of Date: 01/07/2021 (No Known Allergies) Date Reviewed: 10/07/2019 Reviewed by: Sharon (Rn) DOLORES Nunn - Fully Assessed Order(s):[place] SARS-COV-2 VACCINE 2D DOSE APPT [[id number]] Order #: [id number] Prescriptions as of 01/07/2021 Sig: DOCUSATE SODIUM [...] 1 tablet by mouth once d* OMEGA 4-ILC-MNP-FISH OIL 1,00* Take 1 g by mouth [...] 08/21/2017 Shoulder pain [M25.519] 07/16/2019 Encounter Status:Open [facility] Lab Reportson 07-01-2020 Lab Reports [id number]:127 [facility] Lab Reports [id number]:127 Normal [facility] Coding Summary.on 11-27-2019 Coding Summary. 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 Althea Koroma M.D. lkr Dictated: 11/25/2019 #[id number] Typed 11/25/2019 #[id number] cc: Althea Koroma M.D. [facility] Comment on above: Result Comment: Elec tronically Signed By: Althea Koroma MD\.br\Date and Time Signed: 11/26/19 16:05 EST Main OR Intraoperative Recor don 11-26-2019 Main OR Intraoperative Record IntraOp Document Type FT Summary Primary Physician: Althea Koroma MD Finalized Date/Time: 11/26/19 13:40:27 Pt. Name: AMINA LIM Adriano Alamo./Sex: 1945 Male Med Rec #: [id number] Physician: Althea Koroma MD Financial #: [id number] Pt. Type: A Room/Bed: AS0A Admit/Disch: 11/25/19 12:23:56 - 11/25/19 15:20:00 Institution: Case Times FT Entry 1 Patient Times In Room 11/25/19 14:12:00 Out Room 11/25/19 14:44:00 Procedure Times Start 11/25/19 14:22:00 Stop 11/25/19 14:42:00 Anesthesia Times Last Modified By: Estella BERNAL, Cortney SINGH 11/25/19 14:43:21 General Comments: 11/26/2019 Chart opened to review and send charges Anders Clayton CST Case Attendance FT Entry 1 Entry 2 Entry 3 Case Attendee Ga YE, Althea Vargas CST, Pattie Denson RN, Yaquelin Rowe Role Performed Surgeon - Primary Scrub - Primary Scrub - Primary Time In 11/25/19 14:12:00 11/25/19 14:12:00 11/25/19 14:12:00 Time Out 11/25/19 14:44:00 11/25/19 14:44:00 11/25/19 14:44:00 Procedure CATARACT EXTRACTION W/ CATARACT EXTRACTION W/ CATARACT EXTRACTION W/ INTRAOCULAR LENS(Right) INTRAOCULAR LENS(Right) INTRAOCULAR LENS(Right) Comments Last Modified By: Estella BERNAL, MELIAOR, Estella BERNAL, SAMANTHA, Estella BERNAL, Cortney SINGH 11/25/19 Cortney 11/25/19 Cortney 11/25/19 14:43:22 14:43:22 14:43:22 Entry 4 Case Attendee SAMANTHA Soria RN, Ruthann Role Performed Customer Relations Consultant - Primary Time In 11/25/19 14:12:00 Time [...] LENS(Right) Implant Identification FT Description HIMANSHU IOL [id number] SOFPORT Lot Number [id number] SIZE 20.5 [[id number] 20.5][F] 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 Yes Last Modified By: SAMANTHA Soria RN, Ruthann 11/25/19 14:28:30 Post-Care Text: The patient is free from signs and symptoms of injury caused by extraneous objects Case Comments Finalized By: Tabitha Clayton CST Document Signatures Signed By: Estella BERNAL, CNOR, Cortney 11/25/19 14:43 Tabitha Clayton CST 11/26/19 13:40 [...] to the surface of the globe. A [employer] manometer was positioned and set at 20 [...] in good condition. Ludwin Estrada Dictated: 11/25/2019 #[id number] Typed: 11/26/2019 #[id number] cc: Althea Koroma M.D. [facility] Comment on above: Result Comment: Elec tronically Signed By: Althea Koroma MD\.br\Date and Time Signed: 11/26/19 16:05 EST Inpatient Patient Summaryon 11-25-2019 Inpatient Patient Summary [place] [id number] [facility] Clinical Discharge Instructions PERSON INFORMATION Name: AMINA LIM PHYSICIANS Admitting Physician: Althea Koroma MD Attending Physician: Althea Koroma MD PCP: Ara YE, Narciso Discharge Diagnosis: Cataract; Floppy iris syndrome Comment: PATIENT EDUCATION INFORMATION Instructions: Medication Leaflets: Follow up: With: Address: When: Althea BUENROSTRO [facility] [address], [place] [id number] [facility] (1) Comments: Call physician if symptoms worsen [...] Date/Time: 11/25/19 15:24:08 Pt. Name: AMINA LIM /Sex: 1945 Male Med Rec #: [id number] Physician: Althea Koroma MD Financial #: [id number] Pt. Type: A Room/Bed: [place] [address] Admit/Disch: 11/25/19 12:23:56 - 11/25/19 15:20:00 Institution: [...] 11/25/19 12:48:49 Pt. Name: AMINA LIM Adriano HernándezB./Sex: 1945 Male Med Rec #: [id number] Physician: Althea Koroma MD Financial #: [id number] Pt. Type: A Room/Bed: [facility] Admit/Disch: 11/25/19 12:23:56 - Institution: Case Times [...] Anion gap [Moles/Vol] 10 mmol/L Normal 0-15 [facility] Calcium [Mass/Vol] 8.4 mg/dL Low 8.5-10.5 [facility] Chloride [Moles/Vol] 106 mmol/L Normal 98-110 [facility] CO2 [Moles/Vol] 21 mmol/L Low 23-32 [facility] Creatinine [Mass/Vol] 1.23 mg/dL Normal 0.7-1.4 [facility] Glucose [Mass/Vol] 176 mg/dL High 65-100 [facility] Potassium [Moles/Vol] 4.1 mmol/L Normal 3.5-5.0 [facility] Sodium [Moles/Vol] 137 mmol/L Normal 135-146 [facility] Urea nitrogen [Mass/Vol] 22 mg/dL Normal 8-25 [facility] CASE MANAGEMon 07-17-2019 CASE MANAGEM HNO ID: [id number] Author: Nichelle Henao (Sw) Service: ? Author Type: Womens Volleyball Coach Type: Care Mgt Progress Note Filed: 07/17/2019 [...] 17, 2019 TIME: 11:04 AM PAGER/CONTACT #: [phone] Normal [facility] CASE MGT INIT ASSESon 2018 CASE MGT INCHARLI ELIZABETH HNO ID: [id number] Author: Nichelle Henao (Sw) Service: ? 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 No Advance Directive: Current Advance Directive: None Night Shift Manager Attempted to Assist with AD Completion: Yes [...] None Has the Patient Been in a Senior Living Facility in the Past 30 days? No SOCIAL: Living Arrangement: Home Lives With: Spouse Financial Resources: Retired Primary Contact: Extended Emergency Contact Information Primary Emergency Contact: Tanja Lim Address: [address] [place] [address] Mobile Relation: Spouse Supportive: Yes Other Important [...] 0 I feel financially burdened by my nsq-tj-cwxtem expenses for my prescription medication: Disagree completely [...] at home with . to assist at k[place]. Plans home today. No skilled needs SIGNATURE: WILSON Carcamo PATIENT NAME: Amina Lim DATE: July 17, 2019 TIME: 11:02 AM PAGER/CONTACT #: [phone] Normal [facility] CBCon 07-17-2019 Absolute nRBC <0.01 Normal <0.01 [facility] Erythrocyte distribution width (RBC) [Ratio] 13.2 % Normal 11.5-15.0 [facility] Hematocrit (Bld) [Volume fraction] 32.9 % Low 39.0-51.0 [facility] Hemoglobin (Bld) [Mass/Vol] 11.0 g/dL Low 13.0-17.0 [facility] MCH (RBC) [Entitic mass] 30.6 pG Normal 26.0-34.0 [facility] MCHC (RBC) [Mass/Vol] 33.4 g/dL Normal 30.5-36.0 [facility] MCV (RBC) [Entitic vol] 91.6 fL Normal 80.0-100.0 [facility] Platelet mean volume (Bld) [Entitic vol] 10.4 fL Normal 9.0-12.7 [facility] Platelets (Bld) [#/Vol] 188 10*3/uL Normal 150-400 [facility] RBC (Bld) [#/Vol] 3.59 10*6/uL Low 4.20-6.00 [facility] WBC (Bld) [#/Vol] 16.37 10*3/uL High 3.70-11.00 [facility] NURSING PROGon 10-02-2019 NURSING PROG HNO ID: [id number] Author: Prudence (Rn) DOLORES Bowen Service: Nursing Author Type: Registered Nurse Type: Nursing Progress Note Filed: 07/17/2019 1:33 PM Note Text: Nursing Progress Note Patient Name: Amina Lim [facility] [id number] Daily Note:.Assumed care of patient, assessment completed, [...] note was completed by: Prudence Bowen RN [facility] PROGRESSon 07-17-2019 PROGRESS HNO ID: [id number] Author: Sky Echols Service: General Internal Medicine [...] of care with Dr. Echols. Yeny Walters, LULÚ.PAINT LINE OPERATOR July 17, 2019 10:36 AM I have seen the patient and verified the exam. I have personally reviewed all labs and imaging results. I have discussed with the RELEASE SPECIALIST and I have participated in montelongo components. I agree with the note as documented with additional comments if needed. The assessment and plan as outlined are reflection of our discussion. Sky Echols MD July 17, 2019 [facility] PROGRESS HNO ID: [id number] Author: Rolly Osullivan MD Service: Orthopaedic Surgery [...] (U/L) Date Value 07/27/2009 29 URINALYSIS Specific Etoile, Ur Date Value Ref Range Status 08/24/2009 [...] Osullivan MD Resident Physician PGY-2 Orthopaedic Surgery 09506 For urgent issues or if after 5:00 PM/weekends, please page [phone] ([phone]) Normal [facility] THERAPY NTon 07-17-2019 THERAPY NT HNO ID: [id number] Author: Roseanne ([facility] Service: Occupational Therapy Author Type: Occupational Therapist Type: Therapy (PT/OT/Speech/Resp) Filed: 07/17/2019 3:00 PM Note Text: Occupational Therapy Evaluation SERVICE DATE: 07/17/2019 SERVICE TIME: 0950 to 1020 ROOM: [address]-517-1 Recommended Discharge Disposition: Home Anticipated Discharge [...] of daily living (ADL) Interventions Provided: Evaluation;Self Mcc Management (03584) $ Evaluation-Low (29969) Billed Units: 1 unit Self Mcc Management (36340) Treatment Minutes: 23 2 units Skilled Intervention(s): [...] DATE: July 17, 2019 TIME: 2:46 PM [facility] THERAPY NT HNO ID: [id number] Author: Roseanne JacobsonOt) Gregory Service: Occupational Therapy Author Type: Occupational Therapist Type: Therapy (PT/OT/Speech/Resp) Filed: 07/17/2019 3:08 PM Note Text: Occupational Therapy Treatment SERVICE DATE: 07/17/2019 SERVICE TIME: 1155 to 1240 ROOM: [place] [address] Recommended Discharge Disposition: Home Anticipated Discharge Needs: [...] daily living (ADL) Interventions Provided: Therapeutic Exercise (32678);Self Mcc Management (69365) Therapeutic Exercise (59900) Treatment Minutes: 10 1 unit Skilled Intervention(s): Instruction in therapeutic exercise Verbal and tactile cuing provided Facilitation of muscle control, optimal recruitment and alignment Education in PROM shoulder to 90 degrees FF passively and work toward limit of 120 degrees. Spouse able to perform PROM to 90 degrees as well Self Mcc Management (23851) Treatment Minutes: 35 2 units Skilled Intervention(s): [...] DATE: July 17, 2019 TIME: 3:04 PM [facility] THERAPY NT HNO ID: [id number] Author: Floresita Ray Service: Physical Therapy Author Type: Physical Therapist Type: Therapy (PT/OT/Speech/Resp) Filed: 07/17/2019 1:21 PM Note Text: PHYSICAL THERAPY MISSED VISIT SERVICE DATE: 07/17/2019 SERVICE TIME: 1320 to 1320 ROOM: [place] [address] (EU OR POST OP) Attempted Evaluation. Patient not seen due to No Skilled Needs. Patient's post op needs can be met by OT. Pt does not have any functional mobility impairment. Will discontinue PT order. SIGNATURE: Floresita Ray PT PATIENT NAME: Amina Lim DATE: July 17, 2019 TIME: 1:21 PM [facility] ALLIED HEALTHon 07-16-2019 ALLIED HEALTH HNO ID: [id number] Author: Armen Redmond (Rt) Service: Radiology Author Type: Bone Drier Operator Type: Allied Health Filed: 07/16/2019 3:56 PM [...] RT Elijah July 16, 2019 3:56 PM [facility] HNO ID: [id number] Author: Armen Redmond (Rt) Service: Radiology Author Type: Bone Drier Operator Type: Allied Health Filed: 07/16/2019 3:47 PM [...] RT Elijah July 16, 2019 3:47 PM [facility] ANES Gerry 07-16-2019 ANES POST HNO ID: [id number] Author: Jordan Desai Service: Anesthesiology Author Type: Anesthesiologist Type: Anesthesia PostOp Filed: 07/16/2019 5:30 PM Note Text: POST ANESTHESIA EVALUATION NOTE SERVICE DATE: 07/16/2019 SERVICE TIME: 5:30 PM : 1945 Vitals: 07/16/19 1050 07/16/19 1519 07/16/19 170 Temp: 36.5 ?C (97.7 ?F) 36.6 ?C (97.9 ?F) 36.5 ?C (97.7 ?F) 07/16/19 1615 07/16/19 1630 07/16/19 1645 07/16/19 [...] 16, 2019 TIME: 5:30 PM PAGER/CONTACT #: [phone] [facility] ANES PREOPon 07-16-2019 ANES PREOP HNO ID: [id number] Author: Jordan Desai Service: Anesthesiology Author Type: [...] Take 1 tablet by mouth once daily. Xymeu-4-ATB-EPA-Fish Oil (FISH OIL) 1,000 mg (120 mg-180 mg) cap Take 1 g by mouth once daily. Lecithin 1,200 mg cap Take 1 capsule by mouth once daily. lovastatin (MEVACOR) 20 mg tablet Take 20 mg by mouth daily at bedtime. multivitamin (MULTIPLE VITAMINS) tablet Take 1 tablet by mouth once daily. Saw [place] 160 mg capsule Take 160 mg by [...] ringers infusion 5-30 mL/hr INTRAVENOUS CONTINUOUS Mani (Lorelei) Sell II - ceFAZolin iv piggyback 2 g in D5W (iso-osmotic) 100 mL (ANCEF) 2 g INTRAVENOUS Pre-Op Once Mani (Lorelei) Reina II - acetaminophen 1,000 mg tab(s) (TYLENOL) 1,000 mg ORAL ONCE Mani (Lorelei) Reina II - midazolam (PF) 2 mg injection (VERSED) 2 mg INTRAVENOUS Pre-Op Once Jordan Manleyin APTT 28.7 07/27/2009 PT Sec 11.1 07/27/2009 [...] DATE: July 16, 2019 TIME: 10:51 AM [facility] CONSULTon 07-16-2019 CONSULT HNO ID: [id number] Author: Yeny Walters Service: General Internal Medicine [...] by mouth once daily. Disp: Rfl: 07/05/2019 Nsyjr-5-KNG-EPA-Fish Oil (FISH OIL) 1,000 mg (120 mg-180 [...] mouth once daily. Disp: Rfl: 07/05/2019 Saw [place] 160 mg capsule Take 160 mg by [...] the care of your patient. Yeny Walters APRN.PAINT LINE OPERATOR July 16, 2019 5:46 PM Normal [facility] OPERATIVE NOon 07-16-2019 OPERATIVE NO HNO ID: [id number] Author: Anshu Thomas Service: Orthopaedic Surgery Author Type: Physician Type: Operative Report Filed: 07/16/2019 3:21 PM Note Text: [place] [address] [place] OPERATIVE REPORT NAME: [facility] #: [id number] DATE: 07/16/2019 (1:12pm-3:12pm) AGE: 74 SURGEON 1: Anshu Thomas M.D. PREBOARDER: 1. Brain Kay M.D. 2. Rolly Osullivan [...] INDICATIONS: The patient is a 74 year oldrsu-ebqq-ljq right-hand dominant white male who has a [...] a #2 Ticron suture passed in a kzbgmr-be-ztpjc fashion. Following this, all retractors were removed, [...] none COMPLICATIONS: none apparent Anshu Thomas M.D. [facility] XR SHOULDER SPECIFY 1V RTon 07-16-2019 [...] on Jul 16 2019 3:57PM EST [id number] [facility] NURSING PROGon 06-27-2019 NURSING PROG HNO ID: [id number] Author: Norma (Rn) DOLORES Adorno Service: Nursing [...] 114 06/25/19 TANDS 30 day in [facility] 03/14/17 [place] Imaging Within Last 12 Months: 06/25/19 ct shoulder in [place] [facility] 12/13/18 xr shoulder 3v Cardiac Testin06/25/19 prelim ekg in [facility] Last Menstrual Period: NA BMI Percentile (PEDS): N/A Risk Assessment: N/A Anesthesia Review: N/A Narrative: N/A Pre-op Considerations: PER [facility] HX CLARENCE- CPAP at night History of Prostate CA with Radiation and insertion of Seeds CKD follows with Nephrology Chart Check: IN PROGRESS NEED FINAL EKG Marialuisa Cates RN June 27, 2019 1:24 PM July 15, 2019 8:38 AM Final EKG from 06/25/19--Sinus allegra (57bpm) Norma Adorno RN [facility] Type and SCR (30D)on 019 ABO/RH(D) Positive [facility] HOSPon 12-13-2018 HOSP Patient:Amina Lim MRN: [...] (VITAMIN C) 1,000 mg tablet MINERALS ORAL Pghtn-5-SVK-EPA-Fish Oil (FISH OIL) 1,000 mg (120 mg-180 mg) cap Lecithin 1,200 mg cap lovastatin (MEVACOR) 20 mg tablet multivitamin (MULTIPLE VITAMINS) tablet Saw [place] 160 mg capsule vitamin b complex tab [...] notes entered within the past 30 days [facility] XR SHLDR >/=3V AP/RADHA AP/OTH [...] MD on Dec 10 2018 9:43AM EST [id number] [facility] XR SHLDR >/=3V AP/RADHA AP/OTH R RTon 12-10-2018 XR SHLDR >/=3V AP/RADHA AP/OTHR RT * * *Final Report* * * DATE OF EXAM: Dec 10 2018 8:37AM X 5253 - XR SHLDR >/=3V AP/RADHA AP/OTHR [...] MD on Dec 10 2018 9:37AM EST [id number] ACCESS HOSPITALIDCSIN [facility] Vital Signs Date Time Vital Sign Value Performing Clinician Facility 10-22-2024 10:21-0500 Body height 179.1 cm Lyndsay Maditz DO Work Phone: [facility] 10-22-2024 10:21-0500 Body mass index (BMI) [Ratio] 28.84 kg/m2 Lyndsay Maditz DO Work Phone: [facility] 10-22-2024 10:21-0500 Body weight 92.5 kg Lyndsay Maditz DO Work Phone: [facility] 10-22-2024 10:21-0500 Diastolic blood pressure 69 mm[Hg] Lyndsay Maditz DO Work Phone: [facility] 10-22-2024 10:21-0500 Heart rate 64 /min Lyndsay Maditz DO Work Phone: [facility] 10-22-2024 10:21-0500 Systolic blood pressure 130 mm[Hg] Lyndsay Maditz DO Work Phone: [facility] 08-13-2024 13:14-0400 Body height 177.8 cm Queta MOSELEY Work Phone: [facility] 08-13-2024 13:14-0400 Body mass index (BMI) [Ratio] 29.96 kg/m2 Queta MOSELEY Work Phone: [facility] 08-13-2024 13:14-0400 Body weight 94.71 kg Queta MOSELEY Work Phone: [facility] 05-16-2023 09:10-0400 Body height 179.1 cm Lyndsay Maditz DO Work Phone: [facility] 05-16-2023 09:10-0400 Body weight 92.53 kg Lyndsay Maditz DO Work Phone: [facility] 05-16-2023 09:10-0400 Diastolic blood pressure 77 mm[Hg] Lyndsay Maditz DO Work Phone: [facility] 05-16-2023 09:10-0400 Heart rate 43 /min Lyndsay Maditz DO Work Phone: [facility] 05-16-2023 09:10-0400 Systolic blood pressure 171 mm[Hg] Lyndsay Salgado DO Work Phone: [facility] 09-06-2022 11:20-0500 Body height 177.8 cm Yudith Irelands Other [facility] Other 09-06-2022 11:20-0500 Body mass index (BMI) [Ratio] 29.9 kg/m2 Azradha Irelands Other [facility] Other 09-06-2022 11:20-0500 Body temperature 96.5 [degF] Yudith Irelands Other [facility] Other 09-06-2022 11:20-0500 Body weight 94.53 kg Yudith Irelands Other [facility] Other 09-06-2022 11:20-0500 Diastolic blood pressure 88 mm[Hg] Azradha Irelands Other [facility] Other 09-06-2022 11:20-0500 Respiratory rate 18 /min Yudith Irelands Other [facility] Other 09-06-2022 11:20-0500 SaO2% (BldA) [Mass fraction] 98 % Yudith Irelands Other [facility] Other 09-06-2022 11:20-0500 Systolic blood pressure 159 mm[Hg] Aziz Shus Other [facility] Other 09-22-2021 11:20-0500 Body height 177.8 cm Ileana Earl Other [facility] Other 09-22-2021 11:20-0500 Body mass index (BMI) [Ratio] 30.93 kg/m2 Ileana Earl Other [facility] Other 09-22-2021 11:20-0500 Body temperature 96.4 [degF] Ileana Earl Other [facility] Other 09-22-2021 11:20-0500 Body weight 97.8 kg Ileana Earl Other [facility] Other 09-22-2021 11:20-0500 Diastolic blood pressure 75 mm[Hg] Ileana Earl Other [facility] Other 09-22-2021 11:20-0500 Respiratory rate 18 /min Ileana Earl Other [facility] Other 09-22-2021 11:20-0500 SaO2% (BldA) [Mass fraction] 97 % Ileana Earl Other [facility] Other 09-22-2021 11:20-0500 Systolic blood pressure 119 mm[Hg] Ileana Earl Other [facility] Other Encounters Encounter Date Encounter Type Care Provider Facility Start: 11-07-2024 End: 11-07-2024 Bamboo flowsheet Queta MOSELEY Work Phone: [facility] Start: 11-07-2024 End: 11-07-2024 Bamboo flowsheet Queta MOSELEY Work Phone: [facility] Start: 11-07-2024 End: 11-07-2024 Postop follow up visit related to original px Queta MOSELEY Work Phone: [facility] Comment on above: S/P TKR (total knee replacement), left (Primary Dx) Start: 11-07-2024 End: 11-07-2024 ambulatory QUETA TILLEY Not Available Start: 10-28-2024 End: 10-28-2024 ambulatory [facility] Start: 10-22-2024 End: 10-22-2024 ambulatory NARCISO Rowe MICHELBraden Facility:[facility] Start: 10-22-2024 End: 10-22-2024 Patient encounter procedure [...] up visit related to original px Queta MOSELEY Work Phone: [facility] Comment on [...] 09-18-2024 End: 09-18-2024 Bamboo flowsheet Giacomo Hisey [facility] Start: 09-18-2024 End: 09-18-2024 Bamboo flowsheet Giacomo Hisey [facility] Start: 09-18-2024 End: 09-18-2024 ambulatory Giacomo Hisey [facility] Comment on above: S/P total knee repla cement, left (Primary Dx); Acute postoperative pain of left knee Start: 09-16-2024 End: 09-16-2024 Bamboo flowsheet Roseanne Sousa PT Work Phone: [facility] Start: 09-16-2024 End: 09-16-2024 Bamboo flowsheet Roseanne Mcnamara Delfino PT Work Phone: [facility] Start: 09-16-2024 End: 09-16-2024 ambulatory Roseanne Mcnamara Sousa PT Work Phone: [facility] Comment on above: S/P total knee repla cement, left (Primary Dx); Acute postoperative pain of left knee Start: 09-11-2024 End: 09-11-2024 Bamboo flowsheet Roseanne Mcnamara Delfino PT Work Phone: [facility] Start: 09-11-2024 End: 09-11-2024 Bamboo flowsheet Roseanne Mcnamara Delfino PT Work Phone: [facility] Start: 09-11-2024 End: 09-11-2024 ambulatory Roseanne Mcnamara Delfino PT Work Phone: [facility] Comment on above: S/P total knee repla cement, left (Primary Dx); Acute postoperative pain of left knee Start: 09-09-2024 End: 09-10-2024 ambulatory Roseanne Mcnamara Delfino PT Work Phone: [facility] Comment on above: S/P total knee repla cement, left (Primary Dx); Acute postoperative pain of left knee Start: 09-09-2024 End: 09-09-2024 Bamboo flowsheet Roseanne J Delfino PT Work Phone: [facility] Start: 09-09-2024 End: 09-09-2024 Bamboo flowsheet Roseanne J Delfino PT Work Phone: [facility] Start: 09-05-2024 End: 09-05-2024 Bamboo flowsheet Queta Tilley PA Work Phone: [facility] Start: 09-05-2024 End: 09-05-2024 Bamboo flowsheet Queta Tilley PA Work Phone: [facility] Start: 09-05-2024 End: 09-05-2024 Postop follow up visit related to original px Queta MOSELEY Work Phone: [facility] Comment on above: S/P TKR (total knee replacement), left (Primary Dx); Post-operative pain Start: 09-05-2024 End: 09-05-2024 ambulatory QUETA TILLEY Not Available Start: 08-29-2024 End: 08-30-2024 Refill José Manuel Wylie RELEASE SPECIALIST Work Phone: [facility] Comment on above: Post-operative pain Start: 08-21-2024 End: 08-21-2024 Refill José Manuel Wylie RELEASE SPECIALIST Work Phone: [facility] Comment on above: Post-operative pain (Primary Dx) Start: 08-20-2024 End: 08-20-2024 Orders Only Queta MOSELEY Work Phone: [facility] Comment on above: Encounter for other preprocedural examination Start: 08-20-2024 End: 08-20-2024 Patient encounter status Quetahaile MOSELEY Work Phone: [facility] Start: 08-14-2024 End: 08-14-2024 Telephone encounter Jr. El Ruiz DO Work Phone: [facility] Comment on above: Surgery Start: 08-13-2024 End: 08-13-2024 ambulatory QUETAHAILE TILLEY [facility] Start: 08-13-2024 Encounter for other preprocedural examination QUETA TILLEY [facility] Start: 08-13-2024 End: 08-13-2024 External Result Encounter Queta MOSELEY Work Phone: [facility] Unsolicited Start: 08-13-2024 End: 08-13-2024 External Result Encounter Queta Mcnamara Jarek MOSELEY Work Phone: [facility] Unsolicited Start: 08-13-2024 End: 08-13-2024 Orders Only Queta MOSELEY Work Phone: [facility] Comment on above: Encounter for other preprocedural examination Start: 08-13-2024 End: 08-13-2024 Patient encounter status Queta Mcnamara Jarek PA Work Phone: [facility] Start: 08-13-2024 End: 08-13-2024 Patient encounter procedure Queta Mcnamara Jarek MOSELEY Work Phone: [facility] Comment on above: Preop examination (P rimary Dx); Primary osteoarthritis of left knee; Eczema, unspecified type Start: 08-13-2024 End: 08-13-2024 Preprocedural examination done Queta Mcnamara Jarek MOSELEY Work Phone: [facility] Start: 08-13-2024 End: 08-13-2024 ambulatory QUETA Mcnamara TILLEY Not Available Start: 08-07-2024 End: 08-07-2024 Bamaaron Ruiz DO Work Phone: [facility] Start: 08-07-2024 End: 08-07-2024 Bamborodriguez Matos Stepjayce DO Work Phone: [facility] Start: 08-07-2024 End: 08-07-2024 ambulatory EL GONSALEZ Not Available Start: 08-07-2024 End: 08-07-2024 Office outpatient visit 25 minutes Jr. El Ruiz DO Work Phone: [facility] Comment on above: Acute pain of right knee (Primary Dx); History of right knee joint replacement; Primary osteoarthritis of left knee Start: 06-26-2024 End: 06-26-2024 Bamborodriguez flowstessa Matos Stepjayce DO Work Phone: [facility] Start: 06-26-2024 End: 06-26-2024 Bamborodriguez Matos Stepanic DO Work Phone: [facility] Start: 06-26-2024 End: 06-26-2024 Postop follow up visit related to original px Jr. El Matos Stepjayce DO Work Phone: [facility] [facility] Comment on above: S/P TKR (total knee replacement), right (Primary Dx); Primary osteoarthritis of left knee Start: 06-26-2024 End: 06-26-2024 ambulatory EL GONSALEZ Not Available Start: 05-16-2024 End: 05-16-2024 ambulatory SHIRLENE M MEDVES Not Available Start: 05-15-2024 End: 05-15-2024 ambulatory QUETA TILLEY Not Available Start: 05-14-2024 End: 05-14-2024 ambulatory GIACOMO CARMICHAEL Not Available Start: 05-08-2024 End: 05-08-2024 ambulatory BONILLA HOWARD Not Available Start: 05-06-2024 End: 05-06-2024 ambulatory AMEENA GUZIK Not Available Start: 05-01-2024 End: 05-01-2024 ambulatory [...] encounter procedure MD Narciso Bullock Work Phone: [facility] Work Phone: Start: 03-18-2024 End: 03-18-2024 ambulatory MD Narciso Bullock Work Phone: [facility] Work Phone: Start: 03-18-2024 Encounter for other preprocedural examination Queta Tilley [facility] Start: 03-18-2024 End: 03-18-2024 ambulatory QUETA TILLEY Not Available Start: 02-02-2024 End: 02-02-2024 ambulatory JR., EL C STEPANIC Not Available Start: 05-24-2023 ambulatory 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 Start: 05-16-2023 End: 05-16-2023 Patient encounter procedure Lyndsay Salgado DO Work Phone: Kidney Medicine Comment on above: Chronic kidney disea se, unspecified CKD stage (Primary Dx); Bradycardia; Generalized pain; Anemia of renal disease; Primary hypertension Start: 03-15-[address] NARCISO BULLOCK . Facili ty:[facility] Start: 10-03-2022 End: 10-03-[address] NARCISO BULLOCK . Facility:[facility] Start: 09-06-2022 End: 09-06-2022 ambulatory Yudith Yoolink Other [employer] Other Start: 09-06-2022 Office outpatient vi sit 15 minutes Aziz Bakdamariss [facility] Start: 09-01-2022 End: 09-02-[address] NARCISO BULLOCK . Facility:[facility] Start: 09-01-2022 End: 09-02-[address] NARCISO BULLOCK . Facility:[facility] Start: 09-22-2021 End: 09-22-2021 ambulatory Ileana Saavedramelisa Other [employer] Other Start: 09-22-2021 Office outpatient vi sit 15 minutes Essam Elmelisa [facility] Start: 12-10-2018 End: 12-10-2018 Patient encounter procedure TRELL rios Procedures Date Procedure Procedure Detail Performing Clinician Start: 10-03-2024 Radiologic examinati on knee 1/2 views Queta MOSELEY Work Phone: Start: 08-13-2024 Thromboplastin time partial plasma/whole blood Queta MOSELEY Work Phone: Start: 09-01-[address] EH BULLOCK . Comment on above: Performed By: #### P [facility] #### [facility] [address] [place] [address] Dr. Xena Pickard Start: 06-25-2019 Antibody screen History of operative procedure on knee History of right knee joint replacement El Ruiz DO Work Phone: Plan of Treatment Date Care Activity Detail Author Start: 08-13-2027 Diabetes Screening Diabetes Screenin g [facility] Start: 11-03-2025 End: 11-03-2025 Patient encounter procedure 11/03/2025 8:30 AM EST Office Visit [facility] [address] [place] [address] Queta Tilley PA [address] [place] [address] [facility] Start: 10-16-2025 End: 01-15-2026 25-hydroxyvitamin D3 [Mass/volume] in Serum or Plasma VITAMIN D 25 HYDROXY Lab Routine Stage 3a chronic kidney disease (HCC) Expected: 10/16/2025, Expires: 01/15/2026 [facility] Comment on above: Expected: 10/16/2025 , Expires: 01/15/2026 Start: 10-16-2025 End: 01-15-2026 CBC panel - Blood by Automated count COMPLETE BLOOD COUNT Lab Routine Stage 3a chronic kidney disease (HCC) Expected: 10/16/2025, Expires: 01/15/2026 [facility] Comment on above: Expected: 10/16/2025 , Expires: 01/15/2026 Start: 10-16-2025 End: 01-15-2026 Parathyrin.intact [Mass/volume] in Serum or Plasma PTH INTACT Lab Routine Stage 3a chronic kidney disease (HCC) Expected: 10/16/2025, Expires: 01/15/2026 [facility] Comment on above: Expected: 10/16/2025 , Expires: 01/15/2026 Start: 10-16-2025 End: 01-15-2026 Protein/Creatinine [Mass Ratio] in Urine PROTEIN / CREATININE RATIO Lab Routine Stage 3a chronic kidney disease (HCC) Expected: 10/16/2025, Expires: 01/15/2026 [facility] Comment on above: Expected: 10/16/2025 , Expires: 01/15/2026 Start: 10-16-2025 End: 01-15-2026 Renal function 2000 panel - Serum or Plasma RENAL FUNCTION PANEL Lab Routine Stage 3a chronic kidney disease (HCC) Expected: 10/16/2025, Expires: 01/15/2026 [facility] Work Phone: Comment on above: Expected: 10/16/2025 , Expires: 01/15/2026 Start: 10-16-2025 End: 01-15-2026 Urinalysis complete panel - Urine URINALYSIS, WITH MICROSCOPIC Lab Routine Stage 3a chronic kidney disease (HCC) Expected: 10/16/2025, Expires: 01/15/2026 [facility] Comment on above: Expected: 10/16/2025 , Expires: 01/15/2026 Start: 08-13-2025 Complete blood count Hemoglobin/Bryon tocrit [facility] Start: 08-13-2025 Creatinine measurement Serum Creatin ine [facility] Start: 11-07-2024 End: 11-07-2024 Patient encounter procedure [facility] Comment on above: S/P TKR (total knee replacement), left (Primary Dx) Start: 10-22-2024 End: 10-22-2024 Patient encounter procedure 10/22/2024 10:20 AM EST Office Visit [facility] [address] [place] [address] Lyndsay Salgado DO [address] [place] [address] 1 year [facility] Medicine Comment on above: 1 year Start: 10-18-2024 End: 10-18-2024 ambulatory 10/18/2024 8:30 AM EST Treatment [facility] [address] [place] [address] Giacomo Carmichael PTA [facility] Start: 10-17-2024 End: 01-16-2025 25-hydroxyvitamin D3 [Mass/volume] in Serum or Plasma VITAMIN D 25 HYDROXY Lab Routine Stage 3 chronic kidney disease, unspecified whether stage 3a or 3b CKD (HCC) Expected: 10/17/2024, Expires: 01/16/2025 [facility] Comment on above: Expected: 10/17/2024 , Expires: 01/16/2025 Start: 10-17-2024 End: 01-16-2025 CBC panel - Blood by Automated count COMPLETE BLOOD COUNT Lab Routine Stage 3 chronic kidney disease, unspecified whether stage 3a or 3b CKD (HCC) Expected: 10/17/2024, Expires: 01/16/2025 [facility] Comment on above: Expected: 10/17/2024 , Expires: 01/16/2025 Start: 10-17-2024 End: 01-16-2025 Microalbumin/Creatinine [Mass Ratio] in Urine ALBUMIN/CREATININE RATIO, URINE Lab Routine Stage 3 chronic kidney disease, unspecified whether stage 3a or 3b CKD (HCC) Expected: 10/17/2024, Expires: 01/16/2025 [facility] Work Phone: Comment on above: Expected: 10/17/2024 , Expires: 01/16/2025 Start: 10-17-2024 End: 01-16-2025 Parathyrin.intact [Mass/volume] in Serum or Plasma PTH INTACT Lab Routine Stage 3 chronic kidney disease, unspecified whether stage 3a or 3b CKD (HCC) Expected: 10/17/2024, Expires: 01/16/2025 [facility] Comment on above: Expected: 10/17/2024 , Expires: 01/16/2025 Start: 10-17-2024 End: 01-16-2025 Protein/Creatinine [Mass Ratio] in Urine PROTEIN / CREATININE RATIO Lab Routine Stage 3 chronic kidney disease, unspecified whether stage 3a or 3b CKD (HCC) Expected: 10/17/2024, Expires: 01/16/2025 [facility] Comment on above: Expected: 10/17/2024 , Expires: 01/16/2025 Start: 10-17-2024 End: 01-16-2025 Renal function 2000 panel - Serum or Plasma RENAL FUNCTION PANEL Lab Routine Stage 3 chronic kidney disease, unspecified whether stage 3a or 3b CKD (HCC) Expected: 10/17/2024, Expires: 01/16/2025 [facility] Comment on above: Expected: 10/17/2024 , Expires: 01/16/2025 Start: 10-17-2024 End: 01-16-2025 Urinalysis complete panel - Urine URINALYSIS WITH MICROSCOPIC, REFLEX CULTURE Lab Routine Stage 3 chronic kidney disease, unspecified whether stage 3a or 3b CKD (HCC) Expected: 10/17/2024, Expires: 01/16/2025 [facility] Comment on above: Expected: 10/17/2024 , Expires: 01/16/2025 Start: 10-16-2024 Advance Directive Discussion Advance Directive Discussion [facility] Start: 10-08-2024 End: 10-08-2024 ambulatory 10/08/2024 10:15 AM EST Treatment [facility] [address] [place] [address] Shirlene Blakely, PT [address] [place] [address] [facility] Start: 10-03-2024 End: 10-03-2024 ambulatory 10/03/2024 10:00 AM EST Treatment [facility] [address] [place] [address] Shirlene Blakely, PT [address] [place] [address] [facility] Start: 10-03-2024 End: 10-03-2024 Patient encounter procedure [facility] Comment on above: S/P TKR (total knee replacement), left (Primary Dx) Start: 09-30-2024 End: 09-30-2024 ambulatory 09/30/2024 5:30 PM EST Treatment [facility] [address] [place] [address] Roseanne Sousa, PT [address] [place] [address] [facility] Start: 09-30-2024 End: 09-30-2024 ambulatory 09/30/2024 10:30 AM EST Treatment [facility] [address] [place] [id number] Ameena Mahajan PTA [facility] Start: 09-27-2024 End: 09-27-2024 ambulatory [facility] Comment on above: Arrived Start: 09-23-2024 End: 09-23-2024 ambulatory [facility] Comment on above: Acute postoperative pain of left knee (Primary Dx); S/P total knee replacement, left Start: 09-20-2024 End: 09-20-2024 ambulatory 09/20/2024 8:45 AM EST Treatment [facility] [address] [place] [address] Roseanne Sousa, PT [address] [facility] [place] [address] [facility] Start: 09-18-2024 End: 09-18-2024 ambulatory 09/18/2024 9:00 AM EST Treatment [facility] [address] [place] [id number] Giacomo Carmichael PTA [facility] Start: [...] 08-13-2025 Bacteria identified in Urine by Culture [facility] Comment on above: Expected: 08/09/2024 (Approximate), Expires: 08/09/2025 Expected: 08/09/2024 , Expires: 08/13/2025 Start: 08-09-2024 End: 08-09-2025 CBC W Auto Differential panel - Blood CBC auto differential Lab Routine Preop examination Expected: 08/09/2024 (Approximate), Expires: 08/09/2025 [facility] Comment on above: Expected: 08/09/2024 (Approximate), Expires: 08/09/2025 Start: 08-09-2024 End: 08-09-2025 Comprehensive metabolic 2000 panel - Serum or Plasma Comprehensive metabolic panel Lab Routine Preop examination Expected: 08/09/2024 (Approximate), Expires: 08/09/2025 [facility] Comment on above: Expected: 08/09/2024 (Approximate), Expires: 08/09/2025 Start: 08-09-2024 End: 08-09-2025 Prothrombin time (PT) in Blood by Coagulation assay Protime-INR Lab Routine Preop examination Expected: 08/09/2024 (Approximate), Expires: 08/09/2025 [facility] Comment on above: Expected: 08/09/2024 (Approximate), Expires: 08/09/2025 Start: 08-09-2024 End: 08-09-2025 Urinalysis complete panel - Urine Urinalysis with reflex microscopic Lab Routine Preop examination Expected: 08/09/2024 (Approximate), Expires: 08/09/2025 [facility] Comment on above: Expected: 08/09/2024 (Approximate), Expires: 08/09/2025 Start: 08-09-2024 End: 08-09-2025 XR Femur and Tibia Views for leg length XR lower extremity leg length evaluation Imaging Routine Preop examination Expected: 08/09/2024 (Approximate), Expires: 08/09/2025 [facility] Comment on above: Expected: 08/09/2024 (Approximate), Expires: 08/09/2025 Start: 08-07-2024 End: 08-07-2024 Patient encounter procedure 08/07/2024 10:00 AM EDT Office Visit [facility] [address] [place] [address] Jr. El Ruiz, DO [address] [place] [address] [facility] Start: 06-26-2024 End: 06-26-2024 Patient encounter procedure 06/26/2024 11:15 AM EDT Office Visit [facility] [address] [place] [address] Jr. El Ruiz, DO [address] [place] [address] Arrived [facility] Comment on above: Arrived Start: 06-16-2024 Covid-19 Vaccine () Covid-19 Vaccine () [facility] Start: 06-16-2024 Influenza vaccination N [facility] Start: 06-14-2024 Complete blood count Hemoglobin/Bryon tocrit [facility] Start: 06-14-2024 Creatinine measurement Serum Creatin ine [facility] Start: 06-14-2024 HEMOGLOBIN/HEMATOCRIT HEMOGLOBIN/HEM ATOCRIT [facility] Start: 06-14-2024 SERUM CREATININE SERUM CREATININE [facility] Start: 03-18-2024 Bacteria identified in Urine by Culture [facility] Start: 06-16-2023 Influenza vaccination INFLUENZA (#1) [facility] Start: 05-16-2023 End: 07-16-2023 25-hydroxyvitamin D3 [Mass/volume] in Serum or Plasma VITAMIN D 25 HYDROXY Lab Routine Chronic kidney disease, unspecified CKD stage Expected: 05/16/2023, Expires: 07/16/2023 [facility] Work Phone: Comment on above: Expected: 05/16/2023 , Expires: 07/16/2023 Start: 05-16-2023 End: 07-16-2023 MONOCLONAL PROTEIN, SERUM (BLOOD) MONOCLONAL PROTEIN, SERUM (BLOOD) Lab Routine Chronic kidney disease, unspecified CKD stage Expected: 05/16/2023, Expires: 07/16/2023 [facility] Work Phone: Comment on above: Expected: 05/16/2023 , Expires: 07/16/2023 Start: 05-16-2023 End: 07-16-2023 Parathyrin.intact [Mass/volume] in Serum or Plasma PTH INTACT BLD Lab Routine Chronic kidney disease, unspecified CKD stage Expected: 05/16/2023, Expires: 07/16/2023 [facility] Work Phone: Comment on above: Expected: 05/16/2023 , Expires: 07/16/2023 Start: 10-16-2022 ADVANCE DIRECTIVE DISCUSSION ADVANCE DIRECTIVE DISCUSSION [facility] Start: 10-16-2022 DEPRESSION ASSESSMENT DEPRESSION ASS ESSMENT [facility] Start: 07-17-2022 DIABETES SCREEN DIABETES SCREEN [facility] Start: 07-17-2022 Diabetes Screening Diabetes Screenin g [facility] Start: 2021 RSV Vaccine (1 - 1-d ose 75+ series) RSV Vaccine (1 - 1-dose 75+ series) [facility] Start: 03-04-2021 COVID-19 VACCINE (3 - Pfizer series) COVID-19 VACCINE (3 - Pfizer series) [facility] Start: 07-17-2020 HEMOGLOBIN/HEMATOCRIT HEMOGLOBIN/HEM ATOCRIT [facility] Start: 07-17-2020 SERUM CREATININE SERUM CREATININE [facility] Start: 11-16-2017 PNEUMOCOCCAL: 65+ (2 - PCV) PNEUMOCOCCAL: 65+ (2 - PCV) [facility] Start: 2011 Fall Risk Screening Fall Risk Screen ing [facility] Start: 1996 Administration of varicella zoster vaccine Zoster (Shingles) Vaccine (1 of 2) [facility] Start: 1996 SHINGRIX VACCINE (1 of 2) SHINGRIX VACCINE (1 of 2) [facility] Start: 1965 DTaP,Tdap and Td Vaccines (1 - Tdap) DTaP,Tdap and Td Vaccines (1 - Tdap) [facility] Start: 1965 Urine microalbumin profile [facility] Start: 1964 Adult BMI Screening Adult BMI Screen ing [facility] Start: 1964 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 MAURI DISEASE VISIT ANNUAL PCP TEAM CHRONIC DISEASE VISIT [facility] Start: 1964 Anxiety Screening Anxiety Screening [facility] Start: 1964 BP CONTROLLED (<130/80) BP CONTROLLE D (<130/80) [facility] Start: 1964 Depression Screening Depression Scre ening [facility] Start: 1964 HEPATITIS C SCREENING HEPATITIS C SC [facility] Start: 1964 Hepatitis C screening Hepatitis C Sc [facility] Start: 1958 Depression Screening Depression Scre ening [facility] Start: 1958 Tobacco Screening Tobacco Screening [facility] Start: 1946 Medicare Annual Well ness Visit Medicare Annual Wellness Visit [facility] Bacteria identified in Urine by Culture Urine Culture Microbiology Routine Encounter for other preprocedural examination 08/13/2024 6:13 PM EDT [facility] End: 05-16-2024 CBC panel - Blood by Automated count CBC Lab Routine Chronic kidney disease, unspecified CKD stage Every 3 months for 4 Occurrences starting 05/16/2023 until 05/16/2024 [facility] Work Phone: Comment on above: Every 3 months for 4 Occurrences starting 05/16/2023 until 05/16/2024 End: 05-16-2024 Protein/Creatinine [Mass Ratio] in Urine PROTEIN CREATININE RATIO Lab Routine Chronic kidney disease, unspecified CKD stage Every 3 months for 4 Occurrences starting 05/16/2023 until 05/16/2024 [facility] Work Phone: Comment on above: Every 3 months for 4 Occurrences starting 05/16/2023 until 05/16/2024 End: 05-16-2024 Renal function 2000 panel - Serum or Plasma RENAL FUNCTION PANEL Lab Routine Chronic kidney disease, unspecified CKD stage Every 3 months for 4 Occurrences starting 05/16/2023 until 05/16/2024 [facility] Work Phone: Comment on above: Every 3 months for 4 Occurrences starting 05/16/2023 until 05/16/2024 End: 05-16-2024 Urinalysis complete panel - Urine URINALYSIS, WITH MICROSCOPIC Lab Routine Chronic kidney disease, unspecified CKD stage Every 3 months for 4 Occurrences starting 05/16/2023 until 05/16/2024 [facility] Work Phone: Comment on above: Every 3 months for 4 Occurrences starting 05/16/2023 until 05/16/2024 End: 06-16-2024 US KIDNEY/BLADDER US KIDNEY/BLADDER Radiology Routine Chronic kidney disease, unspecified CKD stage 1 Occurrences starting 05/16/2023 until 06/16/2024 [facility] Work Phone: Comment on above: 1 Occurrences starti ng 05/16/2023 until [facility] Immunization Date Immunization Notes Care Provider [facility] 07-26-2021 influenza virus vacc ine, unspecified formulation Yashjayce DO Work Phone: [facility] 01-07-2021 COVID-19 original vaccine, age 12+ yr, monovalent (PFIZER-BIONTECH - PURPLE TOP) Lyndsay Salgado DO Work Phone: [facility] Work Phone: 12-17-2020 COVID-19 original vaccine, age 12+ yr, monovalent (PFIZER-BIONTECH - PURPLE TOP) Lyndsay Salgado DO Work Phone: [facility] Work Phone: 11-16-2016 pneumococcal polysaccharide vaccine, 23 valent Lyndsay Salgado DO Work Phone: [facility] Payers Date Payer Category Payer Self-pay [id number] 2023 Unknown [id number] 2021 Commercial Indemnity [employer] [facility] [id number] 2021 Private Health Insurance [employer] [id number]. [id number] 2020 Unknown [id number]. 1.13.159.2. [id number] 2011 Medicare [id number]. 1.13.159.2. 7.3.165680.315 1959 Medicare [id number] 2.16840.1.040932.19 1959 Unknown [id number] 2.16840.1.280276.19 1946 Unknown [id number] 2.16840.1.884589.3.579.2. 593 1946 Unknown [id number] 2.16840.1.308597.3.579.2. 593 1946 Unknown [id number] 2.16.840.1.489173.3.579.2. 593 1946 Unknown [id number] 2.16840.1.546531.3.579.2. 593 1946 Unknown [id number] 2.16.840.1.648320.3.579.2. 1286 1946 Unknown [id number] 2.16.840.1.964539.3.579.2. 1286 1946 Unknown [id number] 2.16.840.1.733785.3.579.2. 1258 1946 Unknown [id number] 2.16.840.1.516065.3.579.2. 1258 1946 Unknown [id number] 2.16.840.1.750461.3.579.2. 1258 1946 Unknown [id number] 2.16.840.1.227520.3.579.2. 1258 1946 Unknown [id number] 2.16.840.1.115057.3.579.2. 1258 1946 Unknown [id number] 2.16.840.1.495306.3.579.2. 1258 1946 Unknown [id number] 2.16.840.1.117287.3.579.2. 1258 1946 Unknown [id number] 2.16.840.1.418606.3.579.2. 1258 1946 Unknown [id number] 2.16.840.1.785768.3.579.2. 1258 1946 Unknown [id number] 2.16.840.1.588654.3.579.2. 1258 1946 Unknown [id number] 2.16.840.1.375484.3.579.2. 1258 1946 Unknown [id number] 2.16.840.1.130788.3.579.2. 1258 1946 Unknown [id number] 2.16.840.1.659106.3.579.2. 1258 1946 Unknown [id number] 2.16.840.1.402655.3.579.2. 1258 1946 Unknown [id number] 2.16.840.1.977763.3.579.2. 1258 1946 Unknown [id number] 2.16.840.1.607317.3.579.2. 1258 1946 Unknown [id number] 2.16.840.1.608714.3.579.2. 1258 1946 Unknown [id number] 2.16.840.1.930699.3.579.2. 1258 1946 Unknown [id number] 2.16.840.1.265821.3.579.2. 1258 1946 Unknown [id number] 2.16.840.1.446458.3.579.2. 1258 1946 Unknown [id number] 2.16.840.1.426070.3.579.2. 1258 1946 Unknown [id number] 2.840.1.833458.3.579.2. 1258 1946 Unknown [id number] 2.16840.1.450226.3.579.2. 1258 1946 Unknown [id number] 2.16840.1.372094.3.579.2. 1258 1946 Unknown [id number] 2.840.1.963813.3.579.2. 1258 1946 Unknown [id number] 2.840.1.619875.3.579.2. 1258 1946 Unknown [id number] 2.16.840.1.288804.3.579.2. 1258 1946 Unknown [id number] 2.16.840.1.408495.3.579.2. 1258 1946 Unknown [id number] 2.16.840.1.400458.3.579.2. 1258 1946 Unknown [id number] 2.16840.1.630636.3.579.2. 1258 1946 Unknown [id number] 2.16.840.1.964834.3.579.2. 1259 1946 Unknown [id number] 2.16.840.1.928914.3.579.2. 9 1946 Unknown [id number] 2.16.840.1.889570.3.579.2. 1259 1946 Unknown [id number] 2.16.840.1.450826.3.579.2. 1259 Unknown [id number] 2.16.840.1.037621.3.579.2. 531 Social History Date Type Detail Facility Unknown if ever smoked [facility] Other Start: 03-27-2019 End: 05-16-2023 Sex Assigned At [facility] Start: 05-16-2023 End: 09-25-2023 Tobacco smoking status MTIS Never smoked tobacco [facility] Start: 05-16-2023 End: 09-25-2023 Tobacco use and exposure Smokeless tobacco non-user [facility] Start: 05-16-2023 End: 11-07-2024 Alcohol intake Current drinker of alcohol (finding) [facility] Start: 03-27-2019 End: 05-16-2023 History of Social function [facility] Start: 09-18-2023 PHQ2 Score 0 [facility] Start: 06-25-2019 Alcohol Comment 2 drinks every other day, maybe 3. beer. [facility] Start: 1945 Sex Assigned At Male C [facility] Start: 06-18-2019 Gender identity Identifies as male gender (finding) [facility] Tobacco smoking status RUST Tobacco smoking consumption unknown [facility] Start: 1945 Sex assigned at Not on file P [facility] Start: 05-21-2015 Sex Male (finding) [facility] Medical Equipment Procedure Code Equipment Code Equipment Origin al Text Equipment Identifier Dates Lgf-Rd-E-Kind plant - [id number] Start: 03-02-2017 Comment on above: Description: CHECK P RICE Humeral Insert S ocket 36 M + 4 [id number] Start: 07-16-2019 Insert Rsp 36mm Standard Socket [employer] Humerus - [id number] Start: 03-02-2017 Stem Altivate Dj o Surgical 12 Standard 108mm Humeral Sterile Shoulder - [id number] Start: 07-16-2019 Baseplate Rsp P2 30mm Glenoid Sterile - [id number] Start: 07-16-2019 Screw Rsp 5mm 18 mm Bone Lock Glenoid Baseplate Shoulder - [id number] Start: 03-02-2017 Screw Rsp 5mm 26 mm Bone Lock Glenoid Baseplate Shoulder - [id number] Start: 07-16-2019 Baseplate Rsp 6. 5mm Wiggins 30mm Glenoid - [id number] Start: 03-02-2017 Head Rsp 36mm Ne utral Glenoid Retain Screw - [id number] Start: 03-02-2017 Head Rsp 36mm Ne utral Glenoid Retain Screw - [id number] Start: 07-16-2019 Screw Rsp 5mm 30 mm Bone Lock Glenoid Baseplate Shoulder - [id number] Start: 03-02-2017 Screw Rsp 5mm 30 mm Bone Lock Glenoid Baseplate Shoulder - [id number] Start: 03-02-2017 Screw Rsp 5mm 18 mm Bone Lock Glenoid Baseplate Shoulder - [id number] Start: 03-02-2017 Screw Rsp 5mm 22 mm Bone Lock Glenoid Baseplate Shoulder - [id number] Start: 07-16-2019 Screw Rsp 5mm 26 mm Bone Lock Glenoid Baseplate Shoulder - [id number] Start: 07-16-2019 Screw Rsp 5mm 18 mm Bone Lock Glenoid Baseplate Shoulder - [id number] Start: 07-16-2019 Clinical Notes 12-19-2016 to 11-07-2024 Queta Tilley, PA - 11/07/2024 8:15 AM Lyndsay Pereira DO - 10/22/2024 10:20 AM JUSTINTePorfirio Betancourt MA - 10/17/2024 3:24 PM Camryn Blakely, PT - 10/08/2024 10:15 AM EST Note Date & Type Note Facility 11-07-2024 History of Present illness Narrative Images from the original note were not included. HISTORY OF PRESENT ILLNESS: POST OP PT Amina Lim is an 79 y.o. @ male. (EST PT) S/P (L) TKA 08/22/24 (11 WKS ) XRAYS DONE 10/03/24 IN [facility] 10/18/24 DOING WELL. S/P EXTENDED PT X2 WKS AFTER LAST VISIT D/T LIMITED ROM. DENIES DISCOMFORT. MINIMAL SWELLING MEDIALLY. CONTINUES HEP - INCREASED ROM / STRENGTH, ALMOST FULL. TYL 3X/DAY. DICLOFENAC GEL DAILY. DENIES WEARING COMPRESSION SOCKS. DENIES ICING, ELEVATING. TAKES 2 IRON PILLS/DAY. CONTINUES TO TAKE ASA 81MG BID. PT WOULD LIKE TO KNOW IF HE CAN CONTINUE FORTE IRON RX D/T LOW IRON ON BLOOD TESTS. REVIEW OF SYSTEMS: General: Denies fever, fatigue or weight loss Lungs: Denies SOB Cardio: Denies chest pain GI: Denies indigestion or abdominal pain Neuro: Denies numbness or tingling, denies new onset paralysis Musculoskeletal: ( see note) PHYSICAL EXAM: Knee Musculoskeletal Exam Gait Gait is normal. Inspection Leg length disparity: no discrepancy Left Erythema: none Effusion: none Edema: none Ecchymosis: none Deformity: none Alignment: normal Previous incision: anterior Incision: well-healed Palpation Left Left knee palpation is unremarkable. Increased warmth: none Masses: none Tenderness: none Range of Motion Right Active extension: 0 Passive extension: 0 Right knee active flexion: 128. Right knee passive flexion: 128. Left Left knee range of motion is normal and full. Active extension: 0 Passive extension: 0 Active flexion: 125 Left knee passive flexion: 128. Strength Left Left knee strength is normal. Extension: 5/5. Flexion: 5/5. Instability Left Instability signs: none - stable Varus stress grade: normal Valgus stress grade: normal Neurovascular Left Left knee neurovascular exam is normal. Pulses - PT: normal Posterior tibial: 2+ Capillary refill: warm and well-perfused Special Signs Left Left knee special signs are normal. Patellar apprehension: none General Constitutional: appears stated age Labored breathing: no Psychiatric: normal mood and affect Neurological: alert Skin: intact Lymphadenopathy: none XR knee 1 or 2 views left [...] Impression: Unremarkable left total knee arthroplasty Procedures No orders of the defined types were placed in this encounter. ASSESSMENT: ICD-10-CM 1. S/P TKR (total knee replacement), left Z96.652 Assessment & Plan 1. Postoperative status following left total knee arthroplasty. He is demonstrating significant improvement and expresses satisfaction with the outcome of the surgery. He reports a marked enhancement in his knee's condition compared to the preoperative state. His range of motion is commendable, and he has resumed regular exercise sessions, a feat he was unable to achieve prior to the surgery due to persistent left knee pain. A follow-up appointment has been scheduled for 1 year from now, during which bilateral knee x-rays will be conducted. The necessity of dental prophylaxis with antibiotics, a recommendation that will persist indefinitely, was discussed. Consequently, he will defer his prophylactic dental cleaning for an additional 3 months. He has been advised to contact the office should any queries or concerns arise. Follow-up The patient will follow up in 1 year. PROCEDURE The patient underwent a left total knee arthroplasty. Questions answered in laymen terms at the bedside. The diagnosis, home exercise plan and any ongoing restrictions/ recommendations reviewed. If unable to be reached in office, I recommend evaluation at nearest Emergency Room if any symptoms worsened or new symptoms develop for requiring urgent evaluation. documented in this encounter [facility] 10-28-2024 Note [facility] Subjective Amina Lim is a 79 y.o. 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 He was evaluated by cardiology because of sinus bradycardia but he was asymptomatic. Short runs of SVT/atrial tachycardia noted on Holter monitor in 2022, asymptomatic. He is here today for follow-up visit. The patient denies any chest pain or shortness of breath at rest or with exertion. He states that he is physically very active. Denies orthopnea or paroxysmal nocturnal dyspnea or dizziness or palpitations or legs edema legs comfort on exertion He states that he does not check his blood pressure often but last time he checked it it was normal. He thinks that his blood pressure is elevated today because he was late and he was rushing to arrive here. He stopped statin on his own because he thought that his initial cholesterol level was not that high. No lipids performed since he stopped lovastatin. ROS All systems were reviewed and they were negative except for the positive findings noted above in the history Past Medical History: Diagnosis Date Bradycardia Cancer (CMS/HCC) Chronic kidney disease Hyperlipidemia Hypertension Past Surgical History: Procedure Laterality Date APPENDECTOMY PROSTATE SURGERY SHOULDER SURGERY Family History Problem Relation Name Age of Onset Other (pacemaker) Father Lupus Father Social History Tobacco Use Smoking status: Never Passive exposure: Current Smokeless tobacco: Never Substance Use Topics Alcohol use: Yes Comment: occasional Allergies No Known Allergies Medications Current Outpatient Medications: aspirin 81 mg EC tablet, Take 81 mg by mouth in the morning., Disp: , Rfl: ferrous sulfate 325 (65 Fe) MG tablet, Take 65 mg by mouth 2 times daily., Disp: , Rfl: losartan (Cozaar) 50 mg tablet, Take 1.5 tablets (75 mg) by mouth in the morning. (Patient taking differently: Take 100 mg by mouth in the morning.), Disp: 45 tablet, Rfl: 3 lovastatin (Mevacor) 20 mg tablet, Take 20 mg by mouth., Disp: , Rfl: spironolactone (Aldactone) 50 mg tablet, Take 50 mg by mouth in the morning., Disp: , Rfl: tamsulosin (Flomax) 0.4 mg 24 hr capsule, Take 0.8 mg by mouth in the morning., Disp: , Rfl: Objective Visit Vitals Smoking Status Never Physical exam: GENERAL: alert and oriented x3, well developed, in no acute distress. HEAD: atraumatic, normocephalic. EYES: TISHA, EOMI. NECK: trachea midline, no JVD present, no carotid bruits present. CARDIAC: S1, S2 present. RRR. Systolic ejection murmur 3/6 at the aortic area radiating to the right carotid. No gallop or rubs RESPIRATORY: CTAB, no increased effort of breathing, no rales, rhonchi, or wheezing. ABDOMEN: soft, nontender, nondistended. EXTREMITIES: no lower extremity edema. No rash/skin discoloration present. NEURO: strength/sensation equal and symmetric in bilateral upper and lower extremities. PSYCH: appropriate mood, affect, and judgement. Recent Labs 10/17/2024 White blood count 9.5, hemoglobin 12.6, hematocrit 38.5, platelets 233 next line sodium 135, potassium 4.3, BUN 29, creatinine 1.5, GFR 55, glucose 97, calcium 9.4, Albumin 4 09/25/2023 HbA1c 5.8% Triglycerides 71, cholesterol 163, LDL 88.8, HDL 60 TSH 1.89, free T44.3, free T32.4 Imaging and other tests EK06/06/2023 showed sinus bradycardia, otherwise normal EKG Echo: 06/16/2023 Treadmill nuclear stress test: 07/05/2023 Nuclear portion EKG portion Event Monitor: 06/06/2023 - 07/06/2023 Assessment/Plan Paroxysmal atrial tachycardia noted on Holter monitor in 2022, asymptomatic Sinus bradycardia, asymptomatic Mild pulmonary hypertension noted on echo June 2023, RVSP 45 mmHg Cardiac murmur suggestive of aortic valve stenosis or sclerosis Essential hypertension, he is on Avapro 150 mg daily and spironolactone 50 mg daily. Blood pressure is elevated today but he was rushing here because he was late. He reports it is normal when he checks it at home Hyperlipidemia, used to be (more content not included)... [facility] 10-22-2024 History of Present illness Narrative Images from the original note were not included. Department of Kidney Medicine Medical Specialties [facility] SERVICE DATE: 10/22/2024 SERVICE TIME: 10:27 [...] renal function. Following with cardiology at the [facility]. No longer taking NSAIDs after his [...] Take 1 tablet by mouth once daily. Sozla-4-RBW-EPA-Fish Oil (FISH OIL) 1,000 mg (120 mg-180 mg) cap Take 1 g by mouth once daily. lovastatin (MEVACOR) 20 mg tablet Take 20 mg by mouth daily at bedtime. multivitamin (MULTIPLE VITAMINS) tablet Take 1 tablet by mouth once daily. Saw [place] 160 mg capsule Take 160 mg by [...] which included preparing to see the patient, [id number] patient care, completing clinical documentation, and obtaining and/or reviewing separately obtained history. Visit CPLX Inherent E&M Associated with [facility] ([id number]) SIGNATURE: Lyndsay Salgado DO [facility] PATIENT NAME: Amina Lim DATE: October 22, 2024 TIME: 10:48 AM CC: PRIMARY CARE PHYSICIAN: Narciso Bullock MD documented in this encounter [facility] 10-22-2024 Note HNO ID: [id number] Author: LYNDSAY SALGADO DO Service: ? Author Type: Physician Type: Progress Notes Filed: 10/22/2024 10:48 Note Text: Department of Kidney Medicine Medical Specialties [facility] SERVICE DATE: 10/22/2024 SERVICE TIME: 10:27 [...] renal function. Following with cardiology at the [facility]. No longer taking NSAIDs after his [...] Take 1 tablet by mouth once daily. Ztgze-5-ECI-EPA-Fish Oil (FISH OIL) 1,000 mg (120 mg-180 mg) cap Take 1 g by mouth once daily. lovastatin (MEVACOR) 20 mg tablet Take 20 mg by mouth daily at bedtime. multivitamin (MULTIPLE VITAMINS) tablet Take 1 tablet by mouth once daily. Saw [place] 160 mg capsule Take 160 mg by [...] number provided below. Confirmation received. Pt notified DEVIN Angel Diana, DO [facility] Pool1 hour ago (2:17 PM) Please fax lab orders to [facility] and let patient know that I have ordered them. (Covering for Dr Salgado) Thanks Cassidy [facility] 10-17-2024 Miscellaneous Notes Images from the original note were not included. Orders printed and faxed to number provided below. Confirmation received. Pt notified DEVIN Angel Diana, DO [facility] Pool1 [...] 10/22/24. Labs need to be faxed to [facility] @ [phone]. Call pt when done Danielle Blanchard documented in this encounter [facility] 10-17-2024 Telephone encounter Note Covering for Dr Salgado CKD lab work ordered Cassidy Arita DO October 17, 2024, 2:15 PM [facility] 10-17-2024 Telephone encounter Note ----- Message from RHODA Han sent at 10/17/2024 1:10 PM EST ----- Regarding: Lab orders for upcoming appt w/Dr. Salgado Contact: Patient is requesting labs for upcoming appt on 10/22/24. Labs need to be faxed to [facility] @ [phone]. 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 HISTORY OF PRESENT ILLNESS: POST OP PT Amina Lim is an 79 y.o. @ male. (EST PT) S/P (L) TKA 08/22/24 (6WKS). XRAYS DONE TODAY, 10/03/24 IN [facility] DOING WELL. CONTINUES TO HAVE SOME DISCOMFORT - TAKING PERCOCET 1/2 Q 6 HRS ; CONTINUES TO ICE. CONTINUES PHYSICAL THERAPY 2x WEEKLY @ [facility] - NOTES INCREASING ROM & STRENGTH. SOME [...] requiring urgent evaluation. documented in this encounter [facility] 09-23-2024 History of Present illness [...] x 6 weeks documented in this encounter [facility] 09-16-2024 History of Present illness [...] camping, dogs Employment retired 15 years from [employer] INTERVENTIONS: X ( ) manual therapy X 40/10 minutes therapeutic exercises for ROM and strengthening X ( ) minutes modalities: ice PT Assessment: No change in knee flexion/extension today. Did tolerate all exercise well in PT. Ice at home. 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 5 weeks post op left TKA Functional Limitations: Lead Sharepoint Developer Goals: Increase ROM left knee to 0-110* [...] Physician Signature: Date: documented in this encounter [facility] 09-05-2024 History of Present illness [...] - STARTING OUTPT THERAPY NEXT WEEK @ [facility]. NOTES INCREASING ROM & STRENGTH - USING [...] Valgus: negative Other Erythema: absent Scars: present (Vasquez present, removed, no dehiscence or drainage) Sensation: [...] left Z96.652 2. Post-operative pain G89.18 HYDROcodone-acetaminophen (Haslet) 5-325 MG tablet PLAN: Assessment & Plan [...] requiring urgent evaluation. documented in this encounter [facility] 09-05-2024 Instructions LORELEI Soto - [...] wound pending recheck. documented in this encounter [facility] 08-29-2024 Telephone encounter Note Patient home PT notified us of need for post op pain rx refill. PDMP reviewed. [facility] 08-29-2024 Miscellaneous Notes Patient home PT notified us of need for post op pain rx refill. PDMP reviewed. documented in this encounter [facility] 08-21-2024 Telephone encounter Note Post op pain rx. PDMP reviewed [facility] 08-21-2024 Miscellaneous Notes Post op pain rx. PDMP reviewed documented in this encounter [facility] 08-14-2024 Telephone encounter Note Acknowledged, thank you. [facility] 08-14-2024 Miscellaneous Notes Acknowledged, thank you. Patient left vm to let us know he has been approved through medicare to have his LT TKA done on 08/22 with . documented in this encounter [facility] 08-14-2024 Telephone encounter Note Patient left vm to let us know he has been approved through medicare to have his LT TKA done on 08/22 with . [facility] 08-14-2024 Note XR BONE LENGTH STUDY Bone length evaluation History: Osteoarthritis, limb length and alignment, knee pain Comparison: None Findings: Standing frontal view of the bilateral lower extremities obtained from the iliac crest through the feet for limb length and alignment without marker device. Impression: Severe Arthritis, osteophytes, joint space narrowing Left knee shows [id number]-yy-[id number] medial compartment arthritis with varus angulation measuring 4 degrees. Appropriate alignment of the right femoral-tibial angle with 2 degrees valgus and a unremarkable prosthesis of the knee Finalized by Micheal Johnson MD on 08/14/2024 5:58 AM [facility] 08-13-2024 History of Present illness [...] MG tablet Every 24 hours Iron Polysacch [id number] (Poly-Iron 150 Forte) 150-0.025-1 MG capsule 1 [...] Ambulatory referral to Physical Therapy Iron Polysacch [id number] (Poly-Iron 150 Forte) 150-0.025-1 MG capsule Chlorhexidine Gluconate (Hibiclens) 4 % solution 2. Primary osteoarthritis of left knee M17.12 Ambulatory referral to Physical Therapy Iron Polysacch [id number] (Poly-Iron 150 Forte) 150-0.025-1 MG capsule Chlorhexidine [...] Bret fernando/ Dick. documented in this encounter [facility] 08-07-2024 History of Present illness Narrative Images from the original note were not included. HISTORY OF PRESENT ILLNESS: EST PT Amnia Lim is an 79 y.o. @ male. (R) KNEE (EST PT) S/P (R) TKA 04/04/24 (17WKS 6DAYS) XRAYS, 05/15/24 IN [facility] NO MDP / PREDNISONE FINISHED THERAPY (10 SESSIONS) @ [facility] NO PAIN MGMT DOING WELL. CONTINUES HEP / RECUMBENT BIKE - NOTES GOOD ROM ; DENIES ANY WEAKNESS. DENIES ANY SWELLING. STATES HE IS VERY PLEASED WITH SURGERY. CONTINUES TO USE VOLTAREN GEL. (L) KNEE (EST PT) RECHECK (L) KNEE ; HERE TO DISCUSS SURGICAL OPTIONS XRAYS, STANDING AP 05/15/24 IN [facility] NO MRI NO MDP / PREDNISONE [...] years old, or requires discharged to a residential facility, the patient may require to have additional inpatient hospital stay following the surgery. Physical therapy is contraindicated in this patient's case because of vfak-[id number]-[id number] articulation of the patient's knee. El Ruiz D.O. documented in this encounter [facility] 06-26-2024 History of Present illness Narrative Images from the original note were not included. HISTORY OF PRESENT ILLNESS: EST PT Amina Lim is an 79 y.o. @ male. (R) KNEE (EST PT ; LAST APPT W/ DICK) S/P (R) TKA 04/04/24 (11WKS 6DAYS) XRAYS, 05/15/24 IN [facility] NO MDP / PREDNISONE FINISHED THERAPY (10 SESSIONS) @ [facility] NO PAIN MGMT CONTINUES TO HAVE SOME DISCOMFORT - RATES 4-5/10 ON PAIN SCALE ; WORSE WITH PROLONGED ACTIVITY. FINISHED PHYSICAL THERAPY @ [facility], CONTINUES HEP - NOTES INCREASING ROM & [...] TO COMPENSATE XRAYS, STANDING AP 05/15/24 IN [facility] NO MRI NO MDP / PREDNISONE [...] El Ruiz D.O. documented in this encounter [facility] 05-24-2023 History of Present illness Narrative [employer] [employer]IGATION OUTREACH Action/[facility] Support: Called pt to schedule an appt [...] done DEPRESSION ASSESSMENT Never done Navigation Signature: Eimly Evans May 24, 2023 9:52 AM documented in this encounter [facility] 05-16-2023 Instructions Lyndsay Salgado DO - [...] have your physicians fax over your records [phone] Make an appointment with cardiology for slow [...] be greatly appreciated. documented in this encounter [facility] 05-16-2023 History of Present illness Narrative [facility], [facility] SERVICE DATE: [...] that he was previously following with a metal off bearer that went over his labs every visit. States that his renal function was worsening and he was taken off a water pill that improved his renal function. His metal off bearer stopped seeing patients in the office and [...] Take 1 tablet by mouth once daily. Fjjip-5-FUJ-EPA-Fish Oil (FISH OIL) 1,000 mg (120 mg-180 mg) cap Take 1 g by mouth once daily. Lecithin 1,200 mg cap Take 1 capsule by mouth once daily. lovastatin (MEVACOR) 20 mg tablet Take 20 mg by mouth daily at bedtime. multivitamin (MULTIPLE VITAMINS) tablet Take 1 tablet by mouth once daily. Saw [place] 160 mg capsule Take 160 mg by [...] 16, 2023 TIME: 10:06 AM OFFICE NUMBER: [phone] CC: REFERRING PROVIDER: Narciso Bullock MD PRIMARY CARE PHYSICIAN: Narciso Bullock MD documented in this encounter [facility] 09-06-2022 Evaluation note Encounter Date Diagnosis [...] Dr. Bullock for NSAIDs alternative like Tramadol Valopaa Other 12-08-2021 Evaluation note* Encounter Date Diagnosis [...] He did try Tylenol with no effect. 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 9 documented as of this encounter (statuses as of 06/26/2023) [facility] Diagnosis Chronic kidney disease, unspecified CKD stage- Primary Bradycardia Other specified cardiac dysrhythmias Generalized pain Anemia of renal disease Anemia in chronic kidney disease Primary hypertension Unspecified essential hypertension [facility] noteNo assessment information availableClerm[facility] Work Phone: Evaluation note* Diagnosis Acute pain of right knee- Primary History of right knee joint replacement Primary osteoarthritis of left knee [facility] Diagnosis Preop examination- Primary Unspecified pre-operative examination Primary osteoarthritis of left knee Eczema, unspecified type [facility]* Diagnosis Post-operative pain- Primary Other acute postoperative pain documented in this encounter [facility]* Diagnosis S/P TKR (total knee replacement), left- Primary Post-operative pain Other acute postoperative pain documented in this encounter [facility]* Diagnosis Post-operative pain Other acute [...] knee replacement, left [facility] Acute postoperative pain of left knee- Primary S/P total knee replacement, left [facility] S/P TKR (total knee replacement), left- Primary Acute pain of left knee [facility] Pre-operative clearance- Primary Preoperative examination, [...] CKD (HCC)- Primary [facility] Diagnosis Acute postoperative pain of left knee- Primary S/P total knee replacement, left [facility]* Diagnosis Pre-operative clearance- Primary Preoperative [...] specified cardiac dysrhythmias [facility]* Diagnosis S/P TKR (total knee replacement), left- Primary [facility]* Diagnosis Encounter for other preprocedural examination [facility] Diagnosis Encounter for other preprocedural examination documented [facility] this encounter [facility] N[facility]ative - Reported* Type Description Date Medical History hypertension Medical History cholecystecomy Medical History Arthritis left shoulder. s/p tra yudith long time ago Medical History Hyperlipidemia Medical History Sleep apnea with CPAP Surgical History appendectomy 1989 Surgical History Left shoulder replacement 2016 Surgical History Radiation seeds put in prostrat e 2017 Surgical History SHOULDER REPLACEMENT RIGHT 07/16 Surgical History NEW LENS PUT IN HIS RIGHT EYE Hospitalization History see above [place] Other History of Present illness Narrative* Shirlene [...] 2-3x/weeks x 6 weeks documented in this encounterNOSC HealthcareInstructionsNot on filedocumented in this encounterProMiami Valley Hospital SystemReason for referral (narrative)* Diagnostic Procedure Only (Routine) - Pending Review Specialty Diagnoses / Procedures Referred By Contjonathan t Referred To Contact US IMAGING Diagnoses Chronic kidney disease, unspecified CKD stage Procedures US KIDNEY/BLADDER US RETROPERITONEAL REAL TIME W/IMAGE COMPLETE Lyndsay Salgado DO [address] [place] [address] Us Imaging Referral ID Status Reason Start Date Expiration Date Visits Requested Visits Authorized [id number] Pending Review Auto-Generat ed Referral 05/16/2023 06/14/2024 1 1 * Consult, Test, Treat (Routine) - Authorized Specialty Diagnoses / Procedures Referred By Contac t Referred To Contact Pain Management Diagnoses Generalized pain Procedures CONSULT TO PAIN MGT OFFICE/OUTPATIENT [facility] 60-74 MINUTES Lyndsay Salgado DO [address] [place] [address] Referral ID Status Reason Start Date Expiration Date Visits Requested Visits Authorized [id number] Authorized PCP Requested Referral 05/16/2023 05/15/2024 1 1 * Consult, Test, Treat (Routine) - Authorized Specialty Diagnoses / Procedures Referred By Contac t Referred To Contact Cardiology Diagnoses Bradycardia Procedures CONSULT TO CARDIOLOGY OFFICE/OUTPATIENT [facility] 60-74 MINUTES Lyndsay Salgado DO [address] [place] [address] Referral ID Status Reason Start Date Expiration Date Visits Requested Visits Authorized [id number] Authorized PCP Requested Referral 05/16/2023 05/15/2024 1 1 [facility] for visit Narrative* Rehabilitation - Outpatient (Routine) - Authorized Specialty Diagnoses / Procedures Referred By Contac t Referred To Contact Physical Therapy Diagnoses S/P total knee replacement, left Procedures MO OFFICE/OUTPATIENT [facility] Queta Tilley PA [address] [address] Phone: tel: fax: Seth Ragland, PT [address] [place] [address] Phone: tel: fax: Referral ID Status Reason Start Date Expiration Date Visits Requested Visits Authorized [id number] Authorized Consult and Treat 08/30/2024 02/26/2025 10 10 [facility] for visit Narrative* Rehabilitation - Outpatient (Routine) - Authorized Specialty Diagnoses / Procedures Referred By Contac t Referred To Contact Physical Therapy Diagnoses S/P total knee replacement, left Procedures MO OFFICE/OUTPATIENT [facility] Queta Tilley PA [address] [facility] [address] [place] [address] Phone: tel: fax: Seth Ragland, PT [address] [place] [address] Phone: tel: fax: Referral ID Status Reason Start Date Expiration Date Visits Requested Visits Authorized [id number] Authorized Consult and Treat 08/30/2024 10/15/2024 10 10 [facility] - Outpatient (Routine) - Authorized Specialty Diagnoses / Procedures Referred By Contac t Referred To Contact Physical Therapy Diagnoses Presence of left artificial knee joint Procedures MO MANUAL THERAPY TQS 1/> REGIONS EACH 15 MINUTES Queta Tilley PA [address] [facility] [address] [place] [address] Phone: tel: fax: Seth Ragland, PT [address] [place] [address] Phone: tel: fax: Referral ID Status Reason Start Date Expiration Date Visits Requested Visits Authorized [id number] Authorized Consult and Treat 10/16/2024 04/14/2025 5 5 [facility] Healthcare Summary Purpose Family History Relationship Condition Age at Onset Recorded Date/T bridger father Heart disease Unknown Unknown family member Unknown Not Specified Diabetes mellitus Unknown Malignant neoplasm Unknown sister Heart disease Unknown Advance Directives Advance Directive Response Recorded Date/ Time Advance Directives No August 11, 2020 1:09pm Hospital Course Note HNO ID: [id number] Author: Jae [email or web address] (ResTaina Osullivan MD Service: [...] section and content) DATE CREATED AUTHOR 12/10/2018 [facility] DATE CREATED AUTHOR AUTHOR'S ORGANIZ ATION 07/18/2019 [facility] DATE CREATED AUTHOR AUTHOR'S ORGANIZ ATION 07/01/2020 [facility] DATE CREATED AUTHOR AUTHOR'S ORGANIZ ATION 01/23/2021 [facility] DATE CREATED AUTHOR AUTHOR'S ORGANIZ ATION 03/24/2023 [facility] DATE CREATED AUTHOR AUTHOR'S ORGANIZ ATION 03/20/2024 [facility] DATE CREATED AUTHOR AUTHOR'S ORGANIZ ATION 08/15/2024 [facility] DATE CREATED AUTHOR AUTHOR'S ORGANIZ ATION 10/25/2024 [facility] DATE CREATED AUTHOR AUTHOR'S ORGANIZ ATION 11/09/2024 [facility] DATE CREATED AUTHOR AUTHOR'S ORGANIZ ATION 11/30/2024 [facility] REASON FOR VISIT (unrecogniz ed section [...] or prosecute any alcohol or drug abuse patient.[facility] HospitalIn the event this information is protected by the Federal Confidentiality of Alcohol and Drug Abuse Patient Records regulations: The Federal rules restrict any use of the information to criminally investigate or prosecute any alcohol or drug abuse patient.[facility] HospitalIn the event this information is protected by the Federal Confidentiality of Alcohol and Drug Abuse Patient Records regulations: The Federal rules restrict any use of the information to criminally investigate or prosecute any alcohol or drug abuse patient.[facility] HospitalIn the event this information is protected by the Federal Confidentiality of Alcohol and Drug Abuse Patient Records regulations: The Federal rules restrict any use of the information to criminally investigate or prosecute any alcohol or drug abuse patient.[facility] HospitalIn the event this information is protected by the Federal Confidentiality of Alcohol and Drug Abuse Patient Records regulations: The Federal rules restrict any use of the information to criminally investigate or prosecute any alcohol or drug abuse patient.[facility] Care Teams (unrecognized sec tion and content) [employer] Relationship Specialty Start Date End Date Narciso Bullock MD PCP - General 07/06/09 [employer] Relationship Specialty Start Date End Date Narciso Bullock MD PCP - General 07/06/09 [employer] Officer Relationship Specialty Start Date End Date Narciso Bullock MD PCP - General 07/06/09 Team Status: Active Member Role Status Dates Narciso Bullock MD Primary Care Provider Active Team Status: Inactive Member Role Status Dates Narciso Bullock MD Primary Care Provider Active Start: March 18, 2024 End: March 18, 2024 Queta Tilley PA-C Attending Provider Active S tart: March 18, 2024 End: Eula 3rd, 2024 [employer] Relationship Specialty Start Date End Date Narciso Bullock MD [address] [facility] [place] [address] PCP - General Family Medicine 09/25/23 [employer] Officer Relationship Specialty Start Date End Date Narciso Bullock MD [address] [facility] [place] [address] PCP - General Family Medicine 09/25/23 [employer] Officer Relationship Specialty Start Date End Date Narciso Bullock MD [address] [facility] [place] [address] PCP - General Family Medicine 09/25/23 [employer] Officer Relationship Specialty Start Date End Date Narciso Bullock MD [address] [facility], [facility] PCP - General Family Medicine 09/25/23 [employer] Officer Relationship Specialty Start Date End Date Narciso Bullock MD [address] [facility] [address] PCP - General Family Medicine 09/25/23 [employer] Officer Relationship Specialty Start Date End Date Narciso Bullock MD [address] [facility] [place] [address] PCP - General Family Medicine 09/25/23 [employer] Officer Relationship Specialty Start Date End Date Narciso Bullock MD [address] [facility] [place] [address] PCP - General Family Medicine 09/25/23 [employer] Officer Relationship Specialty Start Date End Date Narciso Bullock MD [address] [facility] [address] PCP - General Family Medicine 09/25/23 [employer] Officer Relationship Specialty Start Date End Date Narciso Bullock MD [address] [facility] [place] [address] PCP - General Family Medicine 09/25/23 [employer] Officer Relationship Specialty Start Date End Date Narciso Bullock MD [address] [facility] [place] [address] PCP - General Family Medicine 09/25/23 [employer] Officer Relationship Specialty Start Date End Date Narciso Bullock MD [address] [facility] [place] [address] PCP - General Family Medicine 09/25/23 [employer] Officer Relationship Specialty Start Date End Date Narciso Bullock MD [address] [facility] [place] [address] PCP - General Family Medicine 09/25/23 [employer] Officer Relationship Specialty Start Date End Date Narciso Bullock MD [address] [facility] [place] [address] PCP - General Family Medicine 09/25/23 [employer] Officer Relationship Specialty Start Date End Date Narciso Bullock MD [address] [facility] [place] [address] PCP - General Family Medicine 09/25/23 [employer] Officer Relationship Specialty Start Date End Date Narciso Bullock MD [address] [facility] [place] [address] PCP - General Family Medicine 09/25/23 [employer] Officer Relationship Specialty Start Date End Date Narciso Bullock MD [address] [facility] [place] [address] PCP - General Family Medicine 09/25/23 [employer] Officer Relationship Specialty Start Date End Date Narciso Bullock MD [address] [facility] [address] PCP - General Family Medicine 09/25/23 [employer] Officer Relationship Specialty Start Date End Date Narciso Bullock MD [address] [facility] [place] [address] PCP - General Family Medicine 09/25/23 [employer] Officer Relationship Specialty Start Date End Date Narciso Bullock MD [address] [facility] [place] [address] PCP - General Family Medicine 09/25/23 [employer] Officer Relationship Specialty Start Date End Date Narciso Bullock MD PCP - General 07/06/09 [employer] Officer Relationship Specialty Start Date End Date Narciso Bullock MD [address] [facility] [address] PCP - General Family Medicine 09/25/23 [employer] Officer Relationship Specialty Start Date End Date Narciso Bullock MD PCP - General 07/06/09 [employer] Officer Relationship Specialty Start Date End Date Narciso Bullock MD [address] [facility] [address] PCP - General Family Medicine 09/25/23 [employer] Officer Relationship Specialty Start Date End Date Narciso Bullock MD [address] [facility] [place] [address] PCP - General Family Medicine 08/13/24 [employer] Officer Relationship Specialty Start Date End Date Narciso Bullock MD [address] [facility], [facility] [place] [place] [address] PCP - General Family Medicine 08/13/24 [employer] Officer Relationship Specialty Start Date End Date Narciso Bullock MD [address] [facility], [facility] PCP - General Family Medicine 08/13/24 Goals (unrecognized section and content) Goals may [...] BE BASED ON THE PRIMARY CLINICAL RECORDS. [facility] [employer] [facility]. provides no warranty or guarantee of the accuracy or completeness of information in this document.
[2025-03-21 09:57] LABS: Alanine Aminotransferase 28 U/L (16-63); Aspartate Amino Transferase 12 U/L (15-37); Chol HDL Ratio 3.7; Cholesterol 197 mg/dL (<=200); HDL Cholesterol 53 mg/dL (40-60); LDL Cholesterol Calculated 133.2 mg/dL; Triglycerides 54 mg/dL (<=150); VLDL CHOLESTEROL 10.8 mg/dL
== END 2025-03-21 07:18 | disposition home or self-care (01) ==
LOC: LAB 07:20
PROVIDERS: PCP Family Medicine; Visit Provider Internal Medicine Cardiovascular Disease
DX: E78.1 Pure hyperglyceridemia (principal)
CPT/HCPCS: 36415; 80061; 84450; 84460

== ENCOUNTER 2025-03-31 14:17 | Outpatient (OUT) | payer MEDICARE, OTHER, SELFPAY ==
--- NOTE | 2025-03-31 14:30 | CA_ITS ---
Patient Name: AMINA GANT MR#: [id number] : 1945 Exam Date: 03/31/2025 Ordering Doctor: DR. PHOENIX STEWARD M.D. ECHOCARDIOGRAM REPORT PROCEDURE: CA ECHO DOPPLER COMPLETE INDICATIONS: Heart murmur, hypertension, h/o prostate cancer COMPARISON: None. DESCRIPTION: COMPLETE ECHOCARDIOGRAM Real-time transthoracic echocardiography with 2D, M-mode, spectral and color flow Doppler performed. QUALITY: Technical quality was good. LEFT VENTRICLE: Normal chamber size. Thickened septal wall. Mild to moderate concentric hypertrophy. Normal systolic function. LV EF: Calculated left ventricular ejection fraction is 75%. Normal left ventricular ejection fraction, (>55%). DIASTOLIC: Grade 1 diastolic dysfunction. ATRIAL SEPTUM: Visually appears intact. LEFT ATRIUM: Moderate dilatation. RIGHT ATRIUM: Normal chamber size. RIGHT VENTRICLE: Normal chamber size. Normal right ventricular systolic function. TRICUSPID VALVE: Normal mobility and thickness. No stenosis with mild regurgitation. Doppler studies reveal moderately (45-60) elevated right sided pressures. RVSP 46 mmHg MITRAL VALVE: Normal mobility and thickness. No evidence of mitral valve stenosis. Mild mitral annular calcification. Trivial mitral regurgitation. AORTIC VALVE: Normal trileaflet appearance. Moderately calcified aortic valve. Moderately diminished mobility. Doppler velocity suggests moderate aortic valve stenosis. DVI 0.35, KIZZY 1.34 cm2, Mean 16 mmHg. Trivial aortic regurgitation. AORTIC ROOT: Normal diameter and appearance, measuring 3.2 cm. Ascending aorta and aortic arch are normal in size, measuring 3.4 cm. PULMONIC VALVE: Normal thickness and mobility. No stenosis. Trivial regurgitation. PERICARDIUM: No evidence of pericardial effusion. IVC: Collapses with inspiration. PLEURA: CONCLUSION: 1. Mild to moderate concentric left ventricular hypertrophy with normal systolic function. Estimated LVEF is 70 to 75%. 2. Normal right ventricular size and systolic function. 3. Mild diastolic dysfunction. 4. Moderate aortic valve stenosis. 5. Moderately elevated right-sided pressures. RVSP is 46 mmHg. Adult Echocardiography Procedure Report Left Ventricle LVEDD (3.7 - 5.6 cm): 3.66 cm LVESD (2.2 - 4.0 cm): 2.54 cm LVIVS thickness (0.6 - 1.2 cm): 1.59 cm LVPW thickness (0.5 - 1.0 cm): 1.25 cm e': 0.09 m/s E - e': 6.84 LVOT Max Gradient: 4.49 mm[Hg] LVOT Area (cm2): 1.06 m/s Peak Velocity (LVOT): 1.06 m/s Mean Velocity (LVOT): 0.79 m/s LVOT Diameter 2.21 cm Left Atrium LA Volume Index (2D A2C): 29.34 ml/m2 Left Atrium Systolic Dimension: 3.72 cm Mitral Valve MV E to A Ratio: 0.71 Mitral Valve A-Wave Peak Velocity: 0.89 m/s Mitral Valve E-Wave Peak Velocity: 0.63 m/s Right Ventricle Aorta AO Root Diam: 3.17 cm Ascending Ao Diam: 3.38 cm Aortic Valve AoV Area (Peak Conrad): 1.35 cm2 Peak Velocity(Antegrade Flow): 2.99 m/s Peak Gradient(Antegrade Flow): 21.50 mm[Hg], 35.72 mm[Hg] Mean Velocity(Antegrade Flow): 1.64 m/s, 1.74 m/s Mean Gradient(Antegrade Flow): 12.04 mm[Hg], 15.68 mm[Hg] Velocity Time Integral: 56.76 cm, 60.33 cm Tricuspid Valve Peak Velocity (Regurgitant Flow): 3.09 m/s, 3.28 m/s, 2.71 m/s Pulmonic Valve Mean Gradient: 4.43 mm[Hg] Mean Velocity: 0.95 m/s Peak Velocity: 1.61 m/s, 1.54 m/s Peak Gradient: 9.45 mm[Hg], 10.39 mm[Hg] Right Atrium Right Atrium Systolic Pressure: 37.63 ml, 37.63 ml Dictated by: Rio Muller M.D. on 03/31/2025 at 15:31 Approved by: Rio Muller M.D. on 03/31/2025 at 15:38
== END 2025-03-31 14:18 | disposition home or self-care (01) ==
PROVIDERS: PCP Family Medicine; Visit Provider Internal Medicine Cardiovascular Disease
DX: R01.1 Cardiac murmur, unspecified (principal)
CPT/HCPCS: 93306

== ENCOUNTER 2025-06-20 08:21 | Outpatient (OUT) | payer MEDICARE, OTHER, SELFPAY ==
--- OUTSIDE RECORDS SUMMARY | 2025-06-20 08:31 | XMS_ITS | CCD ---
Author Organization [facility] Care Team Providers Care Machine Marker Name Role Phone RIZWANATRELL TELLEZ Jarrell Referring Unavailable Ileana Earl Unavailable Yudith Ruibn Unavailable ARA Guy, DR STUART Primary Care Unavailable ELASHI, DR [...] Unavailable Narciso Bullock MD Primary Care Provider [phone] MD Narciso Bullock Primary Care Provider [phone] CHRISTINE Tilley Attending Provider Queta Tilley Attending Unavailable Queta Tilley Admitting Unavailable Narciso Bullock Primary Care Unavailable Narciso Bullock MD Primary Care Provider [phone] QUETA TILLEY Referring Unavailable NARCISO BULLOCK Primary Care Unavailable QUETA TILLEY Attending Unavailable QUETA TILLEY Referring Unavailable NARCISO BULLOCK Primary Care Unavailable Narciso Bullock MD Primary Care Provider [phone] NARCISO BULLOCK Primary Care Unavailable LYNDSAY SALGADO Attending Unavailable QUETA TILLEY Attending Unavailable STEPANIC, JR., EL Matos Attending Unavaila ble STEPANIC, JR., EL Matos Referring Unavaila ble TILLEYQUETA Attending Unavailable MEDVES, SHIRLENE M Attending Unavailable TILLEY, QUETA J Referring Unavailable TILLEY, QUETA Mcnamara Attending Unavailable [...] STEPANIC, JR., EL Matos Referring Unavaila ble HISGIACOMO TRIPATHI Attending Unavailable STEPANIC, JR., EL Matos Referring Unavaila ble TILLEYQUETA Attending Unavailable TILLEYQUETA Referring Unavailable MEDVES, SHIRLENE M Attending Unavailable [...] Attending Unavailable TILLEY, QUETA Mcnamara Referring Unavailable Narciso Bullock MD Primary Care Provider [phone] [place] Attending Unavailable Allergies Allergy Classification Reported Allergen(s) Allergy Type Date of Onset Reaction(s) Facility (20 sources) Acetaminophen / oxyCODONE Drug Allergy 10-29-202 4 Other [facility] (20 sources) Other Propensity to adverse reactions 4 Other [facility] Medications Current Medications Medication Drug Class(es) Dates Sig (Normalized) Sig (Original) acetaminophen 325 mg / HYDROcodone bitartrate 5 mg oral tablet (9 sources) Opioid Agonist Start: 09-17-2024 End: 09-22-2024 take 1 tablet by mouth every six hours for pain HYDROcodone-aceta minophen ([place]) 5-325 MG tablet Indications: S/P total knee replacement, left Take 1 tablet by mouth every 6 (six) hours if needed for severe pain for up to 5 days 20 tablet 09/17/2024 09/22/2024 Active Start: 08-29-2024 End: 09-10-2024 take 1 tablet by mouth every six hours for pain HYDROcodone-acetaminophen ([place]) 5-325 MG tablet Indications: Post-operative pain Take 1 tablet by mouth every 6 (six) hours if needed for severe pain for up to 5 days 20 tablet 09/05/2024 09/10/2024 Active Start: 08-21-2024 End: 08-26-2024 take 1 tablet by mouth every six hours for pain HYDROcodone-acetaminophen ([place]) 5-325 MG tablet Indications: Post-operative pain Take 1 tablet by mouth every 6 (six) hours if needed for severe pain for up to 5 days 20 tablet 08/21/2024 08/26/2024 Active Acidophilus Extra Strength - (2 sources) Acidophilus Extr a Strength - as directed Orally Active [place] 500 MG (2 sources) [place] 500 MG a s directed Orally Active [...] tablet by mouth once daily Iron Polysacch Qzeec-J04-TA (Poly-Iron 150 Forte) 150-0.025-1 MG capsule Indications: [...] tablet Orally Once a day Active [place] 540 mg (2 sources) take 1 capsule by mouth once daily [place] 540 mg 1 Capsule Orally Daily Active spironolactone 50 mg oral tablet (20 sources) Aldosterone Antagonist take 1 tablet by mouth in the morning spironolactone (Aldactone) 50 MG tablet Take 50 mg by mouth in the morning. Active Comment on above: Take 50 mg by mouth once daily. tamsulosin hydrochloride 0.4 mg oral capsule (20 sources) alpha-Adrenergic Igor Start: 10-22-19 25 take 1 capsule by mouth twice daily [...] 10/22/2024 Discontinued take 3 tablets by mo [facility] three times weekly Ascorbic Acid (VITAMIN C) [...] on above: Take 1 capsule by mo [facility] twice daily. Garlic preparation (1 source) [...] on above: Take 1 capsule by mo [facility] once daily. lecithin 1200 mg oral capsule (1 source) End: 3 take 1 capsule by mouth once daily Lecithin 1,200 mg cap Take 1 capsule by mouth once daily. 0 05/16/2023 Discontinued Comment on above: Take 1 capsule by mo [facility] once daily. losartan potassium 25 mg oral [...] prior to and including day of surgery. Bkuye-4-VJV-EPA-Fi sh Oil (FISH OIL) 1,000 mg (120 mg-180 mg) cap (5 sources) End: take 1 capsule by mouth once daily Xhlqd-0-ZFQ-EPA-Fish Oil (FISH OIL) 1,000 mg (120 mg-180 mg) cap Take 1 g by mouth once daily. 10/22/2024 Discontinued take 1 capsule by mouth once renee ly Qfwlh-5-OQU-EPA-Fish Oil (FISH OIL) 1,000 mg (120 mg-180 mg) cap Take 1 g by mouth once daily. Active take 1 capsule by mouth once renee ly Hhbjd-0-AQA-EPA-Fish Oil (FISH OIL) 1,000 mg (120 mg-180 [...] 50 mg by mouth once daily. Saw [place]re[place] 160 mg capsule (5 sources) End: 10-22-2024 take 1 capsule by mouth three times daily [place] 160 mg capsule Take 160 mg by mouth three times daily. 10/22/2024 Discontinued take 1 capsule by mouth three ti mes daily Saw [place] 160 mg capsule Take 160 mg by mouth three times daily. Active take 1 capsule by mouth three ti mes daily [place] 160 mg capsule Take 160 mg by [...] Translations: [SVT (supraventricular tachycardia) (HCC)] 10-22-2024 Chronic Chronic kidney disease (11 sources) Chronic kidney disease stage 3; Translations: [Chronic kidney disease, stage 3 (moderate)] Onset: 8 05-16-2023 Chronic Chronic kidney disease (9 sources) Chronic kidney disease; Translations: [Chronic kidney disease, stage 3a] Onset: 1 Resolved: Deficiency and other anemia (4 sources) Anemia [...] (3 sources) Bradycardia; Translations: [Bradycardia, unspecified] Onset: 06-21-2023 05-16-2023 Episodic Diabetes mellitus without complication (1 source) Other abnormal glucose; Translations: [OTHER ABNORMAL GLUCOSE] Onset: 09-02-2022 Episodic Heart valve disorders (2 sources) Cardiac murmur, unspecified; Translations: [Cardiac murmur, unspecified] Onset: 06-21-2023 Episodic Malaise and fatigue (1 source) Other fatigue; Translations: [OTHER FATIGUE] Onset: 09-02-2022 Episodic Other aftercare (1 source) Other exterminator helper (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 Repeat echo in about 6 months to follow-up on progression of this. Patient informed. Told him we could order the echo when he sees Dr. Uribe next month. [facility] 36on 11-28-2024 36 Regarding lab result s from 10/29/2024: MD Lucia Chun MA His LDL cholesterol is mildly elevated 112. The goal to be 100 or below. Advised patient to follow low-fat diet and recheck lipids in 3 months. Spoke with patient and he will have repeat labs prior to his next apt in April 2025. Order mailed to him. [facility] Office Visiton 10-28-2024 Follow-up visit [id number] Amina Lim 1945 M Date Provider Department Center 10/28/2024 [id number]-WZISJGPHOENIX LEIDY Aguirre Family History Problem Relation Age of Onset Other Father Lupus Father Family Status - Relation Status Age at Father Level of Service:94609 SC OFFICE/OUTPATIENT ESTABLISHED MOD MDM 30 MIN Reason for Visit and Comments: Hypertension [492089] - Had labs 2 weeks ago. Heart Murmur [124] - Denies chest pain, SOB, palpitations, and lightheadedness/syncope. SVT [Other] Hyperlipidemia [182] - He took himself off lovastatin 3-4 months ago. No lipid since Sep 2023. Denies side effects from statin. Normal [facility] CNOVon 10-22-2024 CNOV Office Visit (HORACIO ) -- AMINA LIM ([id number]) 1945 M Date Time Provider Department 10/22/24 10:20 AM LYNDSAY SALGADO During your visit today, we recorded the following information about you: Pulse Blood pressure Weight Height 64/minute 130/69 92.5 kg 1.791 m Lyndsay Salgado DO 10/22/2024 10:48 AM Signed Department of Kidney Medicine Medical Specialties [facility] SERVICE DATE: 10/22/2024 SERVICE TIME: 10:27 AM [...] renal function. Following with cardiology at the [facility]. No longer taking NSAIDs after his bilateral [...] Take 1 tablet by mouth once daily. Nmaoy-0-FWZ-EPA-Fish Oil (FISH OIL) 1,000 mg (120 mg-180 mg) cap Take 1 g by mouth once daily. lovastatin (MEVACOR) 20 mg tablet Take 20 mg by mouth daily at bedtime. multivitamin (MULTIPLE VITAMINS) tablet Take 1 tablet by mouth once daily. Saw Dunreith 160 mg capsule Take 160 mg by [...] Throat: Heari (more content not included)... Normal [facility] Zak 10-17-2024 AZALEA Telephone ([facility]) -- AMINA LIM ([id number]) 1945 M Date Time Provider Department 10/17/24 CASSIDY ARITA [facility] During your visit today, we recorded the following information about you: Cassidy Arita DO 10/17/2024 2:11 PM Signed ----- Message from RHODA Han sent at 10/17/2024 1:10 PM EST ----- Regarding: Lab orders for upcoming appt w/Dr. Salgado Contact: Patient is requesting labs for upcoming appt on 10/22/24. Labs need to be faxed to [facility] @ [phone]. Call pt when done Danielle Blanchard Diana, DO 10/17/2024 2:17 PM Signed Covering for Dr Salgado CKD lab work ordered Cassidy Arita DO October 17, 2024, 2:15 PM Porfirio Hamilton MA 10/17/2024 5:05 PM Addendum Orders printed and faxed to number provided below. Confirmation received. Pt notified DEVIN Angel Diana, DO [facility]1 hour ago (2:17 PM) Please fax lab orders to [facility] and let patient know that I have [...] 10/21/2024 8:21 AM Signed Fax received from [facility] lab in regards to pt PTH lab [...] Order(s):ALBUMIN/CREATININ E RATIO, URINE [SQUACR] Order #: [id number] FUTURE PROTEIN / CREATININE RATIO [SQPRATIO] Order #: [id number] FUTURE URINALYSIS WITH MICROSCOPIC, REFLEX CULTURE [SQUACII] Order #: [id number] FUTURE RENAL FUNCTION PANEL [SQRFP] Order #: [id number] FUTURE VITAMIN D 25 HYDROXY [SQVITD] Order #: [id number] FUTURE PTH INTACT [SQPTHI] Order #: [id number] FUTURE COMPLETE BLOOD COUNT [SQCBC] Order #: [id number] FUTURE Prescriptions as of 10/21/2024 - losartan [...] 1 tablet by mouth once daily. - Ckvxu-7-RAS-EPA-Fish Oil (FISH OIL) 1,000 mg (120 mg-180 mg) cap Take 1 g by mouth once daily. - lovastatin (MEVACOR) 20 mg tablet Take 20 mg by mouth daily at bedtime. - multivitamin (MULTIPLE VITAMINS) tablet Take 1 tablet by mouth once daily. - Saw Dunre[place] 160 mg capsule Take 160 mg by [...] Status:Closed by PORFIRIO HAMILTON on 10/17/24 Normal [facility] XR Knee - left 1 or [...] dislocation. Impression: Unremarkable left total knee arthroplasty Count includes the [facility] Radiology Study observation (narrative) [facility] APTTon 08-13-2024 aPTT Coag (PPP) [Time] 35 s [facility] [employer] Comment on above: NEW REFERENCE RANGE aPTT Coag (Bld) [Time] 35 s NO [facility] Comment on above: NEW REFERENCE RANGE PERFORMED AT [address] [place] [address] CBC AND AUTO DIFFon 08-13-20 ABSOLUTE BASOPHIL 0.1 X10E9/L Normal 0.0-0.2 [facility] Comment on above: Performed By: #### 1 4979-9 #### [facility] ([id number]) [address] [place] [address] #### CBCA, PINR, CMP #### [facility] ([id number]) [address] [place] [address] ABSOLUTE NEUTROPHIL 5.3 X10E9/L Normal 1.5-6.6 [facility] Comment on above: Performed By: #### 1 4979-9 #### [facility] ([id number]) [address] [place] [address] #### CBCA, PINR, CMP #### [facility] ([id number]) [address], [address] [place] [address] Basophils/100 WBC (Bld) 0.8 % Normal [facility] Comment on above: Performed By: #### 1 4979-9 #### [facility] ([id number]) [address] [place] [address] #### CBCA, PINR, CMP #### [facility] ([id number]) [address], [address] [place] [address] Eosinophils (Bld) [#/Vol] 0.2 10*3/uL Normal 0.0-0.[address] [facility] Comment on above: Performed By: #### 1 4979-9 #### [facility] ([id number]) [address] [place] [address] #### CBCA, PINR, CMP #### [facility] ([id number]) [address], [address] [place] [address] Eosinophils/100 WBC (Bld) 2.1 % Normal [facility] Comment on above: Performed By: #### 1 4979-9 #### [facility] ([id number]) [address] [place] [address] 58783 #### CBCA, PINR, CMP #### [facility] ([id number]) [address], [address] [place] [address] Erythrocyte distribution width (RBC) [Ratio] 13.9 % Normal 11.5-15.[address] [facility] Comment on above: Performed By: #### 1 4979-9 #### [facility] ([id number]) [address] [place] [address] 73778 #### CBCA, PINR, CMP #### [facility] ([id number]) [address] [facility] [address], [address] [place] [address] Hematocrit (Bld) [Volume fraction] 39.0 % Normal 39-[address] [facility] Comment on above: Performed By: #### 1 4979-9 #### [facility] ([id number]) [address] [place] [address] 85049 #### CBCA, PINR, CMP #### [facility] ([id number]) [address] [facility] [address], [address] [place] [address] Hemoglobin (Bld) [Mass/Vol] 13.3 g/dL Normal 13.0-17.[address] [facility] Comment on above: Performed By: #### 1 4979-9 #### [facility] ([id number]) [address] [place] [address] #### CBCA, PINR, CMP #### [facility] ([id number]) [address] [place] [address] Lymphocytes (Bld) [#/Vol] 1.8 10*3/uL Normal 1.0-3.[address] [facility] Comment on above: Performed By: #### 1 4979-9 #### [facility] ([id number]) [address] [place] [address] #### CBCA, PINR, CMP #### [facility] ([id number]) [address], [address] [place] [address] Lymphocytes/100 WBC (Bld) 22.6 % Normal [facility] Comment on above: Performed By: #### 1 4979-9 #### [facility] ([id number]) [address] [place] [address] 16[address] #### CBCA, PINR, CMP #### [facility] ([id number]) [address] [facility] [address], [address] [place] [address] MCH (RBC) [Entitic mass] 31.5 pg Normal 27-[address] [facility] Comment on above: Performed By: #### 1 4979-9 #### [facility] ([id number]) [address] [place] [address] #### CBCA, PINR, CMP #### [facility] ([id number]) [address] [facility] [address], [address] [place] [address] MCHC (RBC) [Mass/Vol] 34.0 g/dL Normal 32-36 [facility] Comment on above: Performed By: #### 1 4979-9 #### [facility] ([id number]) [address] [place] [address] 11783 #### CBCA, PINR, CMP #### [facility] ([id number]) [address], [address] [place] [address] MCV (RBC) [Entitic vol] 93 fL Normal 80-[address] [facility] Comment on above: Performed By: #### 1 4979-9 #### [facility] ([id number]) [address] [place] [address] 13461 #### CBCA, PINR, CMP #### [facility] ([id number]) [address], [address] [place] [address] Monocytes (Bld) [#/Vol] 0.7 10*3/uL Normal 0-0.[address] [facility] Comment on above: Performed By: #### 1 4979-9 #### [facility] ([id number]) [address] [place] [address] 95[address] #### CBCA, PINR, CMP #### [facility] ([id number]) [address], [address] [place] [address] Monocytes/100 WBC (Bld) 8.2 % Normal [facility] Comment on above: Performed By: #### 1 4979-9 #### [facility] ([id number]) [address] [place] [address] #### CBCA, PINR, CMP #### [facility] ([id number]) [address] [place] [address] Neutrophils/100 WBC (Bld) 66.3 % Normal [facility] Comment on above: Performed By: #### 1 4979-9 #### [facility] ([id number]) [address] [place] [address] 87[address] #### CBCA, PINR, CMP #### [facility] ([id number]) [address], [address] [place] [address] Platelet mean volume (Bld) [Entitic vol] 8.2 fL Normal 7-[address] [facility] Comment on above: Performed By: #### 1 4979-9 #### [facility] ([id number]) [address] [place] [address] 84875 #### CBCA, PINR, CMP #### [facility] ([id number]) [address], [address] [place] [address] Platelets (Bld) [#/Vol] 227 10*3/uL Normal 150-[address] [facility] Comment on above: Performed By: #### 1 4979-9 #### [facility] ([id number]) [address] [place] [address] 44[address] #### CBCA, PINR, CMP #### [facility] ([id number]) [address] [place] [address], [facility] [address] [place] [address] RBC COUNT 4.22 X10E12/L Normal 4.10-5.[address] [facility] Comment on above: Performed By: #### 1 4979-9 #### [facility] ([id number]) [address] [place] [address] 12862 #### CBCA, PINR, CMP #### [facility] ([id number]) [address] [place] [address], [facility] [address] [place] [address] WBC (Bld) [#/Vol] 8.0 10*3/uL Normal 4.0-11.0 [facility] Comment on above: Performed By: #### 1 4979-9 #### [facility] ([id number]) [address] [place] [address] 37777 #### CBCA, PINR, CMP #### [facility] ([id number]) [address] [place] [address], [address] [place] [address] CBC auto differentialon 10-2 Basophils (Bld) [#/Vol] 0.1 10*3/uL [facility] Monocytes (Bld) [#/Vol] 0.7 10*3/uL [facility] Monocytes/100 WBC (Bld) 8.2 % [facility] Neutrophils (Bld) [#/Vol] 5.3 10*3/uL [facility] Neutrophils/100 WBC (Bld) 66.3 % [facility] Platelet mean volume (Bld) [Entitic vol] 8.2 fL 7 - 12 fL [facility] Platelets (Bld) [#/Vol] 227 10*3/uL [facility] RBC (Bld) [#/Vol] 4.22 10*6/uL [facility] WBC corrected for nucl RBC Auto (Bld) [#/Vol] 8 [facility] COMPREHENSIVE METABOLIC PANE Juan Daniel 08-13-2024 Albumin [Mass/Vol] 4.1 g/dL Normal 3.2-5.3 [facility] Comment on above: Performed By: #### 1 4979-9 #### [facility] ([id number]) [address] [facility] [place] [address] #### CBCA, PINR, CMP #### [facility] ([id number]) [address] [facility] [place] [address] ALP [Catalytic activity/Vol] 40 U/L Normal 39-[address] [facility] Comment on above: Performed By: #### 1 4979-9 #### [facility] ([id number]) [address] [place] [address] 76053 #### CBCA, PINR, CMP #### [facility] ([id number]) [address] [place] [address] ALT [Catalytic activity/Vol] 21 U/L Normal 0-[address] [facility] Comment on above: Performed By: #### 1 4979-9 #### [facility] ([id number]) [address] [place] [address] 50634 #### CBCA, PINR, CMP #### [facility] ([id number]) [address] [place] [address] Anion gap [Moles/Vol] 7 mmol/L Normal 5-15 [facility] Comment on above: Performed By: #### 1 4979-9 #### [facility] ([id number]) [address] [place] [address] 61708 #### CBCA, PINR, CMP #### [facility] ([id number]) [address] [place] [address] AST [Catalytic activity/Vol] 17 U/L Normal 0-[address] [facility] Comment on above: Performed By: #### 1 4979-9 #### [facility] ([id number]) [address] [place] [address] 88497 #### CBCA, PINR, CMP #### [facility] ([id number]) [address] [place] [address] Bilirubin [Mass/Vol] 0.4 mg/dL Normal 0.3-1.2 [facility] Comment on above: Performed By: #### 1 4979-9 #### [facility] ([id number]) [address] [place] [address] 70365 #### CBCA, PINR, CMP #### [facility] ([id number]) [address] [facility], [address] [place] [address] Calcium [Mass/Vol] 9.1 mg/dL Normal 8.5-10.5 [facility] Comment on above: Performed By: #### 1 4979-9 #### [facility] ([id number]) [address] [place] [address] 49061 #### CBCA, PINR, CMP #### [facility] ([id number]) [address] [facility] [address] [place] [address] Chloride [Moles/Vol] 100 mmol/L Normal 98-109 [facility] Comment on above: Performed By: #### 1 4979-9 #### [facility] ([id number]) [address] [place] [address] 00971 #### CBCA, PINR, CMP #### [facility] ([id number]) [address] [facility] [address], [address] [place] [address] CO2 [Moles/Vol] 27 mmol/L Normal 22-[address] [facility] Comment on above: Performed By: #### 1 4979-9 #### [facility] ([id number]) [address] [place] [address] 15706 #### CBCA, PINR, CMP #### [facility] ([id number]) [address] [facility] [address], [address] [place] [address] Creatinine [Mass/Vol] 1.21 mg/dL Normal 0.60-1.30 [facility] Comment on above: Result Comment: METH OD TRACEABLE TO IDMS STANDARD Performed By: #### 1 4979-9 #### [facility] ([id number]) [address] [place] [address] 16207 #### CBCA, PINR, CMP #### [facility] ([id number]) [address] [place] [address] GFR/1.73 sq M.predicted among non-blacks MDRD (S/P/Bld) [Vol rate/Area] 61 mL/min/{1.73_m2} Normal >[address] [facility] Comment on above: Result Comment: Reported eGFR is based on the CKD-EPI 2020 equation that does not use a race coefficient. Performed By: #### 1 4979-9 #### [facility] ([id number]) [address] [place] [address]279 #### KRYS PINR, CMP #### [facility] ([id number]) [address] [place] [address] Glucose [Mass/Vol] 87 mg/dL Normal 65-99 [facility] Comment on above: Performed By: #### 1 4979-9 #### [facility] ([id number]) [address] [place] [address] 26343 #### KRYS, PINR, CMP #### [facility] ([id number]) [address] [place] [address] Potassium [Moles/Vol] 4.2 mmol/L Normal 3.5-5.0 [facility] Comment on above: Performed By: #### 1 4979-9 #### [facility] ([id number]) [address] [place] [address] 90589 #### CBCA, PINR, CMP #### [facility] ([id number]) [address] [place] [address] Protein [Mass/Vol] 6.6 g/dL Normal 6.0-8.0 [facility] Comment on above: Performed By: #### 1 4979-9 #### [facility] ([id number]) [address] [place] [address] 47192 #### CBCA, PINR, CMP #### [facility] ([id number]) [address] [facility] [address] [place] [address] Sodium [Moles/Vol] 134 mmol/L Normal 134-146 [facility] Comment on above: Performed By: #### 1 4979-9 #### [facility] ([id number]) [address] [place] [address] #### CBCA, PINR, CMP #### [facility] ([id number]) [address] [facility], [address] [place] [address] Urea nitrogen [Mass/Vol] 29 mg/dL High 5-[address] [facility] Comment on above: Performed By: #### 1 4979-9 #### [facility] ([id number]) [address] [place] [id number] #### CBCA, PINR, CMP #### [facility] ([id number]) [address], [address] [place] [address] Comprehensive metabolic pane [facility] 08-13-2024 Albumin [Mass/Vol] 4.1 g/dL 3.2 - 5.3 g/dL [facility] ALP [Catalytic activity/Vol] 40 U/L 39 - 130 U/L [facility] ALT No additional P-5'-P [Catalytic activity/Vol] 21 U/L 0 - 40 U/L [facility] Anion gap [Moles/Vol] 7 mmol/L 5 - 15 mmol/L [facility] AST [Catalytic activity/Vol] 17 U/L 0 - 41 U/L [facility] Bilirubin [Mass/Vol] 0.4 mg/dL 0.3 - 1 .2 mg/dL [facility] Calcium [Mass/Vol] 9.1 mg/dL 8.5 - 10. 5 mg/dL [facility] Chloride [Moles/Vol] 100 mmol/L 98 - 10 9 mmol/L [facility] CO2 [Moles/Vol] 27 mmol/L 22 - 32 mmol/L [facility] Creatinine [Mass/Vol] 1.21 mg/dL 0.60 - 1.30 mg/dL [facility] Comment on above: METHOD TRACEABLE TO IDNJ STANDARD eGFR (CKD-EPI)non-race dependent 61 - PINF [facility] Comment on above: Reported eGFR is based on the CKD-EPI 2020 equation that does not use a race coefficient. Glucose [Mass/Vol] 87 mg/dL 65 - 99 mg/dL [facility] Interpretation and review of laboratory results Abnormal [facility] Potassium [Moles/Vol] 4.2 mmol/L 3.5 - 5.0 mmol/L [facility] Protein [Mass/Vol] 6.6 g/dL 6.0 - 8.0 g/dL [facility] Sodium [Moles/Vol] 134 mmol/L 134 - 146 mmol/L [facility] Urea nitrogen [Mass/Vol] 29 mg/dL High 5 - 27 mg/dL [facility] PROTIME AND INRon 08-13-2024 INR Coag (PPP) [Relative time] 1.0 {INR} Normal 0.8-1.[address] [facility] Comment on above: Performed By: #### 1 4979-9 #### [facility] ([id number]) [address] [place] [address] #### CBCA, PINR, CMP #### [facility] ([id number]) [address], [address] [place] [address] PT Coag (PPP) [Time] 11.1 s Normal 9.8-13.2 [facility] Comment on above: Performed By: #### 1 4979-9 #### [facility] ([id number]) [address] [place] [address] #### CBCA, PINR, CMP #### [facility] ([id number]) [address], [address] [place] [address] Protime & INRon 08-13-2024 INR Coag (PPP) [Relative time] 1 {INR} [facility] PT Coag (PPP) [Time] 11.1 s [facility] URINALYSISon 08-13-2024 Bilirubin Ql (U) Negative Normal NEG [facility] Comment on above: Performed By: #### U A #### [facility] ([id number]) [address] [place] [address], [address] [place] [address] BLOOD/HGB Negative Normal NEG [facility] Comment on above: Performed By: #### U A #### [facility] ([id number]) [address] [place] [address], [address] [place] [address] Color (U) YELLOW Normal YELLOW [facility] Comment on above: Performed By: #### U A #### [facility] ([id number]) [address] [place] [address], [address] [place] [address] Glucose Ql (U) Negative Normal NEG [facility] Comment on above: Performed By: #### U A #### [facility] ([id number]) [address] [place] [address], [address] [place] [address] Ketones Ql (U) Negative Normal NEG [facility] Comment on above: Performed By: #### U A #### [facility] ([id number]) [address] [place] [address], [address] [place] [address] Leukocyte esterase Test strip Ql (U) Negative Normal NEG [facility] Comment on above: Performed By: #### U A #### [facility] ([id number]) [address] [place] [address], [address] [place] [address] MUCOUS PRESENT Abnormal NONE [facility] Comment on above: Performed By: #### U A #### [facility] ([id number]) [address] [place] [address], [address] [place] [address] Nitrite Ql (U) Negative Normal NEG [facility] Comment on above: Performed By: #### U A #### [facility] ([id number]) [address], [address] [place] [address] pH (U) 6.0 [pH] Normal 5.0-8.[address] [facility] Comment on above: Performed By: #### U A #### [facility] ([id number]) [address] [place] [address] Protein Ql (U) Trace Abnormal NEG [facility] Comment on above: Performed By: #### U A #### [facility] ([id number]) [address] [place] [address] R.B.CELLS <1 Normal 0-[address] [facility] Comment on above: Performed By: #### U A #### [facility] ([id number]) [address], [address] [place] [address] Specific gravity (U) [Rel density] 1.028 Normal 1.003-1.[address] [facility] Comment on above: Performed By: #### U A #### [facility] ([id number]) [address] [place] [address] TURBIDITY CLEAR Normal CLEAR [facility] Comment on above: Performed By: #### U A #### [facility] ([id number]) [address] [place] [address] Urobilinogen (U) [Mass/Vol] mg/dL Normal <1.[address] [facility] Comment on above: Performed By: #### U A #### [facility] ([id number]) [address], [address] [place] [address] W.B.CELLS 1 /hpf Normal 0-[address] [facility] Comment on above: Performed By: #### U A #### [facility] ([id number]) [address], [address] [place] [address] URINE CULTUREon 08-13-2024 Bacteria identified Cx Nom (U) CULTURE RESULTS <10,000 ORGANISMS/ML NORMAL URO GENITAL PAM Normal [facility] Comment on above: Performed By: #### 6 30-4 #### [facility] ([id number]) [address], [address] [place] [address] aPTT Coag (Bld) [Time]on [facility] aPTT Coag (PPP) [Time]on [facility] aPTT Coag (Bld) [Time] 35 s Normal 26-37 [facility] Comment on above: Result Comment: NEW REFERENCE RANGE Performed By: #### 1 4979-9 #### [facility] ([id number]) [address] [place] [address], [place] [address] #### CBCA, PINR, CMP #### [facility] ([id number]) [address], [address] [place] [address] Activated partial thrombopla stin time (aPTT) in platelet poor plasma by coagulation aOrdered By: Queta Tilley on 03-18-2024 aPTT Coag (PPP) [Time] 33.7 s 25.1-36.5 [facility] Comment on above: A hematocrit value g reater than 55% may lead to inaccurate results in coagulation testing. Patients having hematocrit values >55% require a special collection tube for coagulation studies. Please contact the laboratory at [phone] for redraw instructions. Alanine aminotransferase [En zymatic activity/volume] in Serum or PlasmaOrdered By: Queta Tilley on 03-18-2024 ALT [Catalytic activity/Vol] 22 U/L Normal 7-52 [facility] Comment on above: Performed By: #### C MP #### [facility] [address] Albumin [Mass/volume] in Ser um or Plasma by Bromocresol green (BCG) dye binding methoOrdered By: Queta Tilley on 03-18-2024 Albumin BCG dye [Mass/Vol] 4.6 g/dL 3.5-5.7 [facility] Alkaline phosphatase [Enzyma tic activity/volume] in Serum or PlasmaOrdered By: Queta Tilley on 03-18-2024 ALP [Catalytic activity/Vol] 37 U/L Normal 34-104 [facility] Comment on above: Result Comment: PERF ORMED BY: [place] [address] PATHOLOGIST SUPERVISOR [employer] HUGO AVALOS M.D. Performed By: #### C MP #### [address] Aspartate aminotransferase [ Enzymatic activity/volume] in Serum or PlasmaOrdered By: Queta Tilley on 03-18-2024 AST [Catalytic activity/Vol] 16 U/L Normal 13-39 [facility] Comment on above: Performed By: #### C MP #### [address] Automated basophil %Ordered By: Queta Tilley on 03-18-2024 Basophils/100 WBC (Bld) 0.6 % Normal . [facility] Comment on above: Performed By: #### C BC #### [address] Automated basophil countOrde red By: Queta Tilley on 03-18-2024 Basophils (Bld) [#/Vol] 0.1 10*3/uL Normal 0.0-0.2 [facility] Comment on above: Result Comment: PERF ORMED BY: [place] [address] PATHOLOGIST SUPERVIS[employer] HUGO AVALOS M.D. Performed By: #### C BC #### [address] Automated blood monocyte cou ntOrdered By: Queta Tilley on 03-18-2024 Monocytes (Bld) [#/Vol] 0.8 10*3/uL Normal 0.0-0.8 [facility] Comment on above: Performed By: #### C BC #### [address] Automated eosinophil %Ordere d By: Queta Jarek on 03-18-2024 Eosinophils/100 WBC (Bld) 0.8 % Normal . [facility] Comment on above: Performed By: #### C BC #### [address] Automated eosinophil countOr dered By: Queta Tilley on 03-18-2024 Eosinophils (Bld) [#/Vol] 0.1 10*3/uL Normal 0.0-0.45 [facility] Comment on above: Performed By: #### C BC #### [address] Automated monocyte %Ordered By: Queta Tilley on 03-18-2024 Monocytes/100 WBC (Bld) 8.0 % Normal . [facility] Comment on above: Performed By: #### C BC #### [address] Automated neutrophil %Ordere d By: Queta Tilley on 03-18-2024 Neutrophils/100 WBC (Bld) 64.7 % Normal . [facility] Comment on above: Performed By: #### C BC #### [address] Bilirubin Test strip Ql (U)O rdered By: Queta Tilley on 03-18-2024 Bilirubin Ql (U) Negative Negative [facility] Bilirubin.total [Mass/volume ] in Serum or PlasmaOrdered By: Queta Tilley on 03-18-2024 Bilirubin [Mass/Vol] 0.5 mg/dL Normal 0.3-1.[address] [facility] Comment on above: Performed By: #### C MP #### [address] Calcium [Mass/volume] in Ser um or PlasmaOrdered By: Queta Tilley on 03-18-2024 Calcium [Mass/Vol] 9.7 mg/dL Normal 8.6-10.3 [facility] Comment on above: Performed By: #### C MP #### [address] Carbon dioxide, total [Moles /volume] in Serum or PlasmaOrdered By: Queta Tilley on 03-18-2024 CO2 [Moles/Vol] 27.0 mmol/L Normal 21.0-31.0 [facility] Comment on above: Performed By: #### C MP #### [address] Chloride [Moles/volume] in S hafsa or PlasmaOrdered By: Queta Tilley on 03-18-2024 Chloride [Moles/Vol] 97 mmol/L Low 98-[address] [facility] Comment on above: Performed By: #### C MP #### [address] Color of Urine by AutoOrdere d By: Queta Tilley on 03-18-2024 Color (U) Yellow Normal Yellow [facility] Comment on above: Order Comment: Name Collection Type:: Clean-Voided Midstream Performed By: #### U A #### [address] Complete Blood Count Auto Di ffon 03-18-2024 Mean Corpuscular HGB Conc 33.6 g/dL Normal 32.5-35.6 [facility] Comment on above: Performed By: #### C BC #### [address] NRBC% 0.4 /100{WBC} Normal 0-0.5 [facility] Comment on above: Performed By: #### C BC #### [address] Comprehensive Metabolic Pane juan daniel 03-18-2024 Albumin [Mass/Vol] 4.6 g/dL Normal 3.5-5.7 [facility] Comment on above: Performed By: #### C MP #### [address] GFR/1.73 sq M.predicted MDRD (S/P/Bld) [Vol rate/Area] mL/min/{1.73_m2} Normal [facility] Comment on above: Performed By: #### C MP #### [address] Creatinine [Mass/volume] in Serum or PlasmaOrdered By: Queta Tilley on 03-18-2024 Creatinine [Mass/Vol] 1.19 mg/dL Normal 0.70-1.30 [facility] Comment on above: Performed By: #### C MP #### [address] ECG 12 lead ECGon 03-18-2024 ECG 12 lead ECG [facility] [place] [address] [place] [address] Electrocardiograph Report Signed Patient: Amina Lim MR#: [id number] 4 : 1945 Acct:[id number] Age/Sex: 78 / M ADM Date: 03/18/24 Loc: Room: Type: [facility] Attending Dr: Queta Tilley PA-C Ordering Provider: [...] HAMMONDS MD Transcribed By: MUS Signed By Niitn Hammonds MD 0 03/18/24 1508 Normal [facility] Erythrocyte distribution wid th [Ratio] by Automated countOrdered By: Queta Tilley on 03-18-2024 Erythrocyte distribution width (RBC) [Ratio] 14.1 % Normal 12.0-14.8 [facility] Comment on above: Performed By: #### C BC #### [facility] [address] Erythrocytes [#/volume] in B lood by Automated countOrdered By: Queta Tilley on 03-18-2024 RBC (Bld) [#/Vol] 4.42 10*6/uL Normal 3.90-5.60 [facility] Comment on above: Performed By: #### C BC #### [address] Glucose [Mass/volume] in Ser um or PlasmaOrdered By: Queta Tilley on 03-18-2024 Glucose [Mass/Vol] 93 mg/dL Normal 70-100 [facility] Comment on above: ADA recommended refe rence rangeRandom Glucose Reference Range is dependent on time and content of last meal. Glucose of more than 200 mg/dL in a nonstressed, ambulatory subject supports the diagnosis of Diabetes Mellitus. Result Comment: [place] om Glucose Reference Range is dependent on time and content of last meal. Glucose of more than 200 mg/dL in a nonstressed, ambulatory subject supports the diagnosis of Diabetes Mellitus. ADA recommended reference range Performed By: #### C MP #### [address] Glucose [Mass/volume] in Uri ne by Test stripOrdered By: Queta Tilley on 03-18-2024 Glucose Test strip (U) [Mass/Vol] Normal mg/dL Normal [facility] Hematocrit [Volume Fraction] of Blood by Automated countOrdered By: Queta Tilley on 03-18-2024 Hematocrit (Bld) [Volume fraction] 41.0 % Normal 38.8-50.0 [facility] Comment on above: Performed By: #### C BC #### [address] Hemoglobin Test strip Ql (U) Ordered By: Queta Tilley on 03-18-2024 Hemoglobin Ql (U) Negative Negative [facility] Hemoglobin [Mass/volume] in BloodOrdered By: Queta Tilley on 03-18-2024 Hemoglobin (Bld) [Mass/Vol] 13.8 g/dL Normal 13.0-17.0 [facility] Comment on above: Performed By: #### C BC #### [address] INR in Platelet poor plasma by Coagulation assayOrdered By: Queta Tilley on 03-18-2024 INR Coag (PPP) [Relative time] 0.9 {INR} Normal [facility] Comment on above: INR Therapeutic Rang e [...] Performed By: #### P T, PTT #### [place] [address] [place] Ketones [Presence] in Urine by Test stripOrdered By: Queta Tilley on 03-18-2024 Ketones Ql (U) Negative Normal Negative [facility] Comment on above: Order Comment: Name Collection Type:: Clean-Voided Midstream Performed By: #### U A #### [place] [address] [place] Leukocyte esterase [Presence ] in Urine by Test stripOrdered By: Queta Tilley on 03-18-2024 Leukocyte esterase Test strip Ql (U) Negative Normal Negative [facility] Comment on above: Order Comment: Name Collection Type:: Clean-Voided Midstream Performed By: #### U A #### [place] [address] [place] Leukocytes [#/volume] correc brady for nucleated erythrocytes in Blood by Automated counOrdered By: Queta Tilley on 03-18-2024 WBC corrected for nucl RBC Auto (Bld) [#/Vol] 9.4 10*3/uL 4.1-10.5 [facility] Leukocytes [#/volume] in Blo od by Automated countOrdered By: Queta Tilley on 03-18-2024 WBC (Bld) [#/Vol] 9.4 10*3/uL Normal 4.1-10.5 [facility] Comment on above: Performed By: #### C BC #### [address] Lymphocytes [#/volume] in Bl ood by Automated countOrdered By: Queta Jarek on 03-18-2024 Lymphocytes (Bld) [#/Vol] 2.4 10*3/uL Normal 1.00-4.8 [facility] Comment on above: Performed By: #### C BC #### [address] Lymphocytes/100 leukocytes i n Blood by Automated countOrdered By: [place] Tilley on 03-18-2024 Lymphocytes/100 WBC (Bld) 25.9 % Normal . [facility] Comment on above: Performed By: #### C BC #### [address] MCH [Entitic mass] by Automa brady countOrdered By: Queta Tilley on 03-18-2024 MCH (RBC) [Entitic mass] 31.2 pg Normal 27.5-35.2 [facility] Comment on above: Performed By: #### C BC #### [address] MCHC Auto (RBC) [Mass/Vol]Or dered By: Queta Tilley on 03-18-2024 MCHC (RBC) [Mass/Vol] 33.6 g/dL 32.5-35.6 [facility] MCV [Entitic volume] by Auto mated countOrdered By: Queta Jarek on 03-18-2024 MCV (RBC) [Entitic vol] 92.9 fL Normal 83.5-101 [facility] Comment on above: Performed By: #### C BC #### [address] Neutrophils [#/volume] in Bl ood by Automated countOrdered By: Queta Tilley on 03-18-2024 Neutrophils (Bld) [#/Vol] 6.1 10*3/uL Normal 1.8-7.7 [facility] Comment on above: Performed By: #### C BC #### [address] Nitrite Test strip Ql (U)Ord ered By: Queta Tilley on 03-18-2024 Nitrite Ql (U) Negative Negative [facility] No Panel InformationOrdered By: Queta Tilley on 03-18-2024 Estimated GFR (CKD-EPI) > 60.0 mL/Min [facility] Creatinine Clearance (Chem N/A [facility] Nucleated erythrocytes [Pres ence] in Blood by Automated countOrdered By: Queta Tilley on 03-18-2024 Nucleated RBC Auto Ql (Bld) 0.4 /100{WBC} 0-0.5 [facility] Partial Thromboplastin Timeo n 03-18-2024 aPTT Coag (Bld) [Time] 33.7 s Normal 25.1-36.5 [facility] Comment on above: Result Comment: A he matocrit value greater than 55% may lead to inaccurate results in coagulation testing. Patients having hematocrit values >55% require a special collection tube for coagulation studies. Please contact the laboratory at [phone] for redraw instructions. PERFORMED BY: [place] [address] PATHOLOGIST SUPERVISOR [employer] HUGO AVALOS M.D. Performed By: #### P T, PTT #### [address] Platelet mean volume [Entiti c volume] in Blood by Automated countOrdered By: Queta Tilley on 03-18-2024 Platelet mean volume (Bld) [Entitic vol] 7.7 fL Normal 6.6-10.1 [facility] Comment on above: Performed By: #### C BC #### [address] Platelets [#/volume] in Bloo d by Automated countOrdered By: Queta Tilley on 03-18-2024 Platelets (Bld) [#/Vol] 220 10*3/uL Normal 150-450 [facility] Comment on above: Performed By: #### C BC #### [address] Potassium [Moles/volume] in Serum or PlasmaOrdered By: Queta Tilley on 03-18-2024 Potassium [Moles/Vol] 4.8 mmol/L Normal 3.5-5.1 [facility] Comment on above: Performed By: #### C MP #### [address] Protein Test strip (U) [Mass /Vol]Ordered By: Queta Tilley on 03-18-2024 Protein (U) [Mass/Vol] Negative Negative [facility] Protein [Mass/volume] in Ser um or PlasmaOrdered By: Queta Tilley on 03-18-2024 Protein [Mass/Vol] 6.9 g/dL Normal 6.4-8.9 [facility] Comment on above: Performed By: #### C MP #### [address] Prothrombin time (PT)Ordered By: Queta Tilley on 03-18-2024 PT Coag (PPP) [Time] 11.0 s Normal 9.0-12.[address] [facility] Comment on above: A hematocrit value g reater than 55% may lead to inaccurate results in coagulation testing. Patients having hematocrit values >55% require a special collection tube for coagulation studies. Please contact the laboratory at [phone] for redraw instructions. Result Comment: A he matocrit value greater than 55% may lead to inaccurate results in coagulation testing. Patients having hematocrit values >55% require a special collection tube for coagulation studies. Please contact the laboratory at [phone] for redraw instructions. Performed By: #### P T, PTT #### [address] Serum globulin measurement b y calculation (mass/volume)Ordered By: Queta Tilley on 03-18-2024 Globulin (S) [Mass/Vol] 2.3 g/dL [facility] Comment on above: Performed By: #### C MP #### [address] Serum or plasma albumin/glob ulin mass ratioOrdered By: Queta Tilley on 03-18-2024 Albumin/Globulin [Mass ratio] 2.0 {ratio} [facility] Comment on above: Performed By: #### C MP #### [address] Serum or plasma anion gap de terminationOrdered By: Queta Tilley on 03-18-2024 Anion gap [Moles/Vol] 11.8 mmol/L Normal 6.0-15.0 [facility] Comment on above: Performed By: #### C MP #### [address] Sodium [Moles/volume] in Ser um or PlasmaOrdered By: Queta Tilley on 03-18-2024 Sodium [Moles/Vol] 131 mmol/L Low 136-145 [facility] Comment on above: Performed By: #### C MP #### [address] Specific gravity Test strip (U) [Rel density]Ordered By: Queta Tilley on 03-18-2024 Specific gravity (U) [Rel density] 1.022 1.001-1.03 0 [facility] Urea nitrogen [Mass/volume] in Serum or PlasmaOrdered By: Queta Tilley on 03-18-2024 Urea nitrogen [Mass/Vol] 26 mg/dL High 7-25 [facility] Comment on above: Performed By: #### C MP #### [address] Urinalysison 03-18-2024 Bilirubin,Urine Negative Normal Negative [facility] Comment on above: Order Comment: Name Collection Type:: Clean-Voided Midstream Performed By: #### U A #### [address] Glucose Ql (U) Normal Normal Normal [facility] Comment on above: Order Comment: Name Collection Type:: Clean-Voided Midstream Performed By: #### U A #### [address] Nitrite,Urine Negative Normal Negative [facility] Comment on above: Order Comment: Name Collection Type:: Clean-Voided Midstream Performed By: #### U A #### [address] Occult Blood,Urine Negative Normal Negative [facility] Comment on above: Order Comment: Name Collection Type:: Clean-Voided Midstream Result Comment: PERF ORMED BY: [place] [address] PATHOLOGIST SUPERVISOR [employer] HUGO AVALOS M.D. Performed By: #### U A #### [address] Protein,Urine Negative Normal Negative [facility] Comment on above: Order Comment: Name Collection Type:: Clean-Voided Midstream Performed By: #### U A #### [address] Specificy Pfeifer,Urine 1.022 Normal 1.001-1.03 0 [facility] Comment on above: Order Comment: Name Collection Type:: Clean-Voided Midstream Performed By: #### U A #### [address] Urobilinogen,Urine Normal Normal Normal [facility] Comment on above: Order Comment: Name Collection Type:: Clean-Voided Midstream Performed By: #### U A #### [address] Urine Cultureon 03-18-2024 Bacteria identified Cx Nom (U) No Growth 2 Days PERFORMED BY: [place] [address] PATHOLOGIST SUPERVISOR [employer] HUGO AVALOS M.D. Normal [facility] Comment on above: Performed By: #### C UU #### [facility] [address] [place] [address] Urine appearanceOrdered By: Queta Tilley on 03-18-2024 Appearance (U) Clear Normal Clear [facility] Comment on above: Order Comment: Name Collection Type:: Clean-Voided Midstream Performed By: #### U A #### [facility] [address] [place] [address] Urobilinogen Test strip (U) [Mass/Vol]Ordered By: Queta Tilley on 03-18-2024 Urobilinogen (U) [Mass/Vol] Normal mg/dL Normal [facility] XR bonelength lower extremit yon 03-18-2024 XR bonelength lower extremity [facility] [place] [address] [place] [address] XRay Report Signed Patient: Amina Lim MR#: [id number] : 1945 Acct:[id number] Age/Sex: 78 / M ADM Date: 03/18/24 Loc: Room: Type: [facility] Attending Dr: Queta Tilley PA-C Copies to: [...] Kelly Banegas M.D.03/18/2024 4:55 PM Dictation Location: [address] By: FRANCISCO JAVIER 03/18/241654 Dictated By: Kelly Banegas II, MD 03/18/241653 Signed By: 03/18/241654 Normal [facility] pH of Urine by Test stripOrd ered By: Queta Tilley on 03-18-2024 pH (U) 5.5 [pH] Normal 5.0-9.0 [facility] Comment on above: Order Comment: Name Collection Type:: Clean-Voided Midstream Performed By: #### U A #### [facility] [address] XR KNEE DUSTIN 3 Von 03-15-2023 XR KNEE DUSTIN 3 V EXAM: XR KNEE DUSTIN 3 V HISTORY: Osteoarthritis COMPARISON: None. TECHNIQUE: 3 views FINDINGS: There is no acute fracture or dislocation. There are mild degenerative changes. The soft tissues are unremarkable. IMPRESSION: Mild degenerative changes as above. Electronically authenticated by: KELLY LARSON Date: 2023-03-15 12:38 Normal [facility] Covid-19 PCR (CVDTB)on 09-15 SARS-CoV-2 (COVID-19) RNA DHARA+probe Ql (Unsp spec) Not detected Normal NOT DETECTED [facility] Comment on above: Result Comment: [...] for this test is supported by the [place] of Health and Human Service's declaration that [...] be used). Performed By: #### C VDTB ####[facility] [address] [address]Dr. Xena Pickard INFLUENZA A AND B AGon 10-03 INFLUANEGH SEE BELOW Normal [facility] Comment on above: Result Comment: Nega tive for Flu A protein angiten. Infection due to Flu A cannot be ruled out. Flu A angiten in the sample may be below the detection limit of the test. Performed By: #### I NFLUAB #### [facility] Laboratory [address] [place] [address] Dr. Xena Pickard INFLUBNEGH SEE BELOW Normal [facility] Comment on above: Result Comment: Nega tive for Flu B protein antigen. Infection due to Flu B cannot be ruled out. Flu B antigen in the sample may be below the detection limit of the test. Performed By: #### I NFLUAB #### [facility] [address] [place] [address] Dr. Xena Pickard INFLUENZA A AG Negative Normal NEGATIVE SEE COMMENT [facility] Comment on above: Performed By: #### I NFLUAB #### [facility] [address] [place] [address] Dr. Xena Pickard INFLUENZA B AG Negative Normal NEGATIVE SEE COMMENT [facility] Comment on above: Performed By: #### I NFLUAB #### [facility] [address] [place] [address] Dr. Xena Pickard INTERNAL CONTROLS Within Normal Limits Normal Wi thin Normal Limits [facility] Comment on above: Performed By: #### I NFLUAB #### [facility] [address] [place] [address] Dr. Xena Pickard INSULINon 09-02-2022 Insulin 14.1 uIU/mL Normal 2.6-24.[address] [facility] Comment on above: Performed By: #### I NSULIN ####[facility] [address] [place], [place] [address]Dr. Xena Pickard PTH INTACTon 09-02-2022 PTH, Intact 14 pg/mL Critically low 15-[address] [facility] Comment on above: Performed By: #### P THINT #### [facility] [address] [place] [address] Dr. Xena Pickard CBC AUTO DIFFon 09-01-2022 BASO # 0.0 103/ul Normal 0.0-0.1 [facility] Comment on above: Performed By: #### C BC #### [facility] [address] [place] [address] Dr. Xena Pickard Basophils/100 WBC (Bld) 0.6 % Normal 0.2-2.0 [facility] Comment on above: Performed By: #### C BC #### [facility] [address] [place] [address] Dr. Xena Pickard EO # 0.2 103/ul Normal 0.0-0.[address] [facility] Comment on above: Performed By: #### C BC #### [facility] [address] [place] [address] Dr. Xena Pickard Eosinophils/100 WBC (Bld) 2.5 % Normal 0.9-7.0 [facility] Comment on above: Performed By: #### C BC #### [facility] [address] [place] [address] Dr. Xena Pickard Erythrocyte distribution width (RBC) [Ratio] 13.5 % Normal 11.0-15.0 [facility] Comment on above: Performed By: #### C BC #### [facility] [address] [place] [address] Dr. Xena Pickard Hematocrit (Bld) [Volume fraction] 38.3 % Critically low 42.0-54.0 [facility] Comment on above: Performed By: #### C BC #### [facility] [address] [place] [address] Dr. Xena Pickard Hemoglobin (Bld) [Mass/Vol] 13.0 g/dL Critically low 14.0-18.[address] [facility] Comment on above: Performed By: #### C BC #### [facility] [address] [place] [address] Dr. Xena Pickard IG # 0.03 10e3/ul Normal 0.00-0.03 [facility] Comment on above: Performed By: #### C BC #### [facility] [address] [place] [address] Dr. Xena Pickard IG % 0.4 % Normal 0.0-0.5 [facility] Comment on above: Performed By: #### C BC #### [facility] [address] [place] [address] Dr. Xena Pickard LYMPH # 2.2 103/ul Normal 1.2-3.[address] [facility] Comment on above: Performed By: #### C BC #### [facility] [address] [place] [address] Dr. Xena Pickard Lymphocytes/100 WBC (Bld) 31.5 % Normal 20.5-60.0 [facility] Comment on above: Performed By: #### C BC #### [facility] [address] [place] [address] Dr. Xena Pickard MANUAL DIFF REQ NO Normal [facility] Comment on above: Performed By: #### C BC #### [facility] [address] [place] [address] Dr. Xena Pickard MCH (RBC) [Entitic mass] 30.5 pg Normal 25.9-34.0 [facility] Comment on above: Performed By: #### C BC #### [facility] [address] [place] [address] Dr. Xena Pickard MCHC (RBC) [Mass/Vol] 33.9 g/dL Normal 29.9-35.[address] [facility] Comment on above: Performed By: #### C BC #### [facility] [address] [place] [address] Dr. Xena Pickard MCV (RBC) [Entitic vol] 89.9 fL Normal 80.0-94.[address] [facility] Comment on above: Performed By: #### C BC #### [facility] [address] [place] [address] Dr. Xena Pickard MONO # 0.6 103/ul Normal 0.3-0.8 [facility] Comment on above: Performed By: #### C BC #### [facility] [address] [place] [address] Dr. Xena Pickard Monocytes/100 WBC (Bld) 8.2 % Normal 1.7-12.0 [facility] Comment on above: Performed By: #### C BC #### [facility] [address] [place] [address] Dr. Xena Pickard NEUT # 4.0 103/ul Normal 1.4-6.5 [facility] Comment on above: Performed By: #### C BC #### [facility] [address] [place] [address] Dr. Xena Pickard Neutrophils/100 WBC (Bld) 56.8 % Normal 43.0-75.0 [facility] Comment on above: Performed By: #### C BC #### [facility] [address] [place] [address] Dr. Xena Pickard Platelet mean volume (Bld) [Entitic vol] 10.2 fL Normal 9.5-13.5 [facility] Comment on above: Performed By: #### C BC #### [facility] [address] [place] [address] Dr. Xena Pickard PLT 185 103/ul Normal 150-[address] [facility] Comment on above: Performed By: #### C BC #### [facility] [address] [place] [address] Dr. Xena Pickard RBC 4.26 106/ul Critically low 4.70-6.10 [facility] Comment on above: Performed By: #### C BC #### [facility] [address] [place] [address] Dr. Xena Pickard WBC 7.1 103/ul Normal 4.0-11.[address] [facility] Comment on above: Performed By: #### C BC #### [facility] [address] [place] [address] Dr. Xena Pickard GLYCOHEMOGLOBIN A1Con 2021 ADA RECOMMENDATION SEE BELOW Normal [facility] Comment on above: Result Comment: ADA RECOMMENDED LIMIT 4.0 - 6.0 ADA THERAPEUTIC TARGET < 7.0 ACTION SUGGESTED > 7.0 Performed By: #### A 1C #### [facility] [address] [place] [address] Dr. Xena Pickard Glucose [Mass/Vol] 120 mg/dL Normal [facility] Comment on above: Performed By: #### A 1C #### [facility] [address] [address] [address] Xena Pickard HbA1c (Bld) [Mass fraction] 5.8 % Normal 4.5-6.2 [facility] Comment on above: Performed By: #### A 1C #### [facility] [address] [address] [address] Xena Pickard LIPID PROFILEon 09-01-2022 CHOL-HDL RATIO NORM SEE BELOW Normal [facility] Comment on above: Result Comment: 3.3 - 4.4 LOW RISK 4.4 - 7.1 AVERAGE RISK 7.1 - 11.0 MODERATE RISK >11.0 HIGH RISK Performed By: #### L IPID, URIC, CMP #### [facility] [address] [address] [address] Xena Pickard Cholesterol [Mass/Vol] 166 mg/dL Normal <=200 [facility] Comment on above: Performed By: #### L IPID, URIC, CMP #### [facility] [address] [address] [address] Xena Pickard Cholesterol in HDL [Mass/Vol] 52 mg/dL Normal 40-60 [facility] Comment on above: Performed By: #### L IPID, URIC, CMP #### [facility] [address] [address] [address] Xena Pickard Cholesterol in LDL [Mass/Vol] 100.8 mg/dL Normal [facility] Comment on above: Performed By: #### L IPID, URIC, CMP #### [facility] [address] [address] [address] Xena Pickard Cholesterol.total/Chol esterol in HDL [Mass ratio] 3.2 {ratio} Normal [facility] Comment on above: Performed By: #### L IPID, URIC, CMP #### [facility] [address] [address] [address] Xena Pickard HDL NORMAL > or = 60 mg/dl - LO W CARDIOVASCULAR RISK <40 mg/dl - HIGH CARDIOVASCULAR RISK Normal [facility] Comment on above: Performed By: #### L IPID, URIC, CMP #### [facility] [address] [address] [address] Xena Pickard LDL CALC NORMAL SEE BELOW Normal [facility] Comment on above: Result Comment: <100 mg/dl OPTIMAL 100 - 129 mg/dl NEAR OR ABOVE OPTIMAL 130 - 159 mg/dl BORDERLINE HIGH 160 - 189 mg/dl HIGH >190 mg/dl VERY HIGH Performed By: #### L IPID, URIC, CMP #### [facility] [address] [address] [address] Xena Pickard Triglyceride [Mass/Vol] 66 mg/dL Normal <=[address] [facility] Comment on above: Performed By: #### L IPID, URIC, CMP #### [facility] [address] [address] [address] Xena Pickard VLDL CALC 13.2 mg/dL Normal [facility] Comment on above: Performed By: #### L IPID, URIC, CMP #### [facility] [address] [address] [address] Xena Pickard PHOSPHORUSon 09-01-2022 Phosphate [Mass/Vol] 3.3 mg/dL Normal 2.6-4.7 [facility] Comment on above: Performed By: #### P HOS ####[facility] [address] [place], [place] [address]HyDr. Xena Pickard PROF 14(COMP METB)on 022 Albumin [Mass/Vol] 3.9 g/dL Normal 3.4-5.0 [facility] Comment on above: Performed By: #### L IPID, URIC, CMP #### [facility] [address] [address] [address] Xena Pickard Albumin/Globulin [Mass ratio] 1.2 {ratio} Normal [facility] Comment on above: Performed By: #### L IPID, URIC, CMP #### [facility] [address] [address] [address] Xena Pickard ALP [Catalytic activity/Vol] 44 U/L Critically low 46-116 [facility] Comment on above: Performed By: #### L IPID, URIC, CMP #### [facility] [address] [address] [address] Xena Pickard ALT [Catalytic activity/Vol] 38 U/L Normal 16-63 [facility] Comment on above: Performed By: #### L IPID, URIC, CMP #### [facility] [address] [place] [address] Dr. Xena Pickard Anion gap [Moles/Vol] 12.3 mmol/L Normal [facility] Comment on above: Performed By: #### L IPID, URIC, CMP #### [facility] [address] [place] [address] Dr. Xena Pickard AST [Catalytic activity/Vol] 16 U/L Normal 15-37 [facility] Comment on above: Performed By: #### L IPID, URIC, CMP #### [facility] [address] [place] [address] Dr. Xena Pickard Bilirubin [Mass/Vol] 0.5 mg/dL Normal 0.2-1.0 [facility] Comment on above: Performed By: #### L IPID, URIC, CMP #### [facility] [address] [place] [address] Dr. Xena Pickard Calcium [Mass/Vol] 8.7 mg/dL Normal 8.5-10.1 [facility] Comment on above: Performed By: #### L IPID, URIC, CMP #### [facility] [address] [place] [address] Dr. Xena Pickard Chloride [Moles/Vol] 101 mmol/L Normal 98-[address] [facility] Comment on above: Performed By: #### L IPID, URIC, CMP #### [facility] [address] [place] [address] Dr. Xena Pickard CO2 [Moles/Vol] 26.8 mmol/L Normal 21.0-32.0 [facility] Comment on above: Performed By: #### L IPID, URIC, CMP #### [facility] [address] [place] [address] Dr. Xena Pickard Creatinine [Mass/Vol] 1.41 mg/dL Critically high 0.70-1.[address] [facility] Comment on above: Performed By: #### L IPID, URIC, CMP #### [facility] [address] [address] [address] Xena Pickard EGFR-AF MACANESE 59 mL/min/1.73m2 Critically low >=[address] [facility] Comment on above: Performed By: #### L IPID, URIC, CMP #### [facility] [address] [place] [address] Dr. Xena Pickard EGFR-NON AF MACANESE 49 mL/min/1.73m2 Critically low >=[address] [facility] Comment on above: Performed By: #### L IPID, URIC, CMP #### [facility] [address] [place] [address] Dr. Xena Pickard Globulin (S) [Mass/Vol] 3.3 g/dL Normal [facility] Comment on above: Performed By: #### L IPID, URIC, CMP #### [facility] [address] [place] [address] Dr. Xena Pickard Glucose [Mass/Vol] 106 mg/dL Normal 74-[address] [facility] Comment on above: Performed By: #### L IPID, URIC, CMP #### [facility] [address] [place] [address] Dr. Xena Pickard Potassium [Moles/Vol] 4.1 mmol/L Normal 3.5-5.[address] [facility] Comment on above: Performed By: #### L IPID, URIC, CMP #### [facility] [address] [place] [address] Dr. Xena Pickard Protein [Mass/Vol] 7.2 g/dL Normal 6.4-8.[address] [facility] Comment on above: Performed By: #### L IPID, URIC, CMP #### [facility] [address] [place] [address] Dr. Xena Pickard Sodium [Moles/Vol] 136 mmol/L Normal 136-[address] [facility] Comment on above: Performed By: #### L IPID, URIC, CMP #### [facility] [address] [address] [address] Xena Pickard Urea nitrogen [Mass/Vol] 33.0 mg/dL Critically high 7.0-18.0 [facility] Comment on above: Performed By: #### L IPID, URIC, CMP #### [facility] [address] [place] [address] Dr. Xena Pickard Urea nitrogen/Creatinine [Mass ratio] 23.4 mg/mg Normal [facility] Comment on above: Performed By: #### L IPID, URIC, CMP #### [facility] [address] [place] [address] Dr. Xena Pickard URIC ACID SERUMon 09-01-2022 Urate [Mass/Vol] 5.1 mg/dL Normal 3.5-7.2 [facility] Comment on above: Performed By: #### L IPID, URIC, CMP #### [facility] [address] [place] [address] Dr. Xena Pickard URINE T PROTEIN CREAT RATIOo n 09-01-2022 UR TOTAL PROTEIN <6.0 Normal <=12.0 [facility] Comment on above: Performed By: #### U RTPCR #### [facility] [address] [place] [address] Dr. Xena Pickard URINE CREAT 36.48 mg/dL Normal 20.00-300. 00 [facility] Comment on above: Performed By: #### U RTPCR #### [facility] [address] [place] [address] Dr. Xena Pickard [employer] [facility] [employer] [facility] 01-07[facility]2021 [employer] [facility] [facility] Nurse Visit (COVAMD) -- AMINA LIM ([id number]) 1945 Date Time Provider Department 01/07/21 NEIL PIERCE) LOTTIE During your visit today, we recorded the following information about you: Allergies As of Date: 01/07/2021 (No Known Allergies) Date Reviewed: 10/07/2019 Reviewed by: Sharon (Rn) DOLORES Nunn - Fully Assessed Order(s):[facility] SARS-COV-2 VACCINE 2D DOSE APPT [[id number]] Order #: [id number] Prescriptions as of 01/07/2021 Sig: DOCUSATE SODIUM [...] 1 tablet by mouth once d* OMEGA 8-QTY-SHM-FISH OIL 1,00* Take 1 g by mouth [...] 08/21/2017 Shoulder pain [M25.519] 07/16/2019 Encounter Status:Open [facility] Lab Reportson 07-01-2020 Lab Reports [id number]:127 [facility] Lab Reports [id number]:127 [facility] Coding Summary.on 11-27-2019 Coding Summary. 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 Althea Koroma M.D. lkr Dictated: 11/25/2019 #[id number] Typed 11/25/2019 #[id number] cc: Althea Koroma M.D. [facility] Comment on above: Result Comment: Elec tronically Signed By: Althea Koroma MD\.br\Date and Time Signed: 11/26/19 16:05 EST Main OR Intraoperative Recor don 11-26-2019 Main OR Intraoperative Record IntraOp Document Type FT Summary Primary Physician: Althea Koroma MD Finalized Date/Time: 11/26/19 13:40:27 Pt. Name: AMINA LIM/Roshan: 1945 Male Med Rec #: [id number] Physician: Althea Koroma MD Financial #: [id number] Pt. Type: A Room/Bed: Admit/Disch: 11/25/19 12:23:56 - 11/25/19 15:20:00 Institution: Case Times FT Entry 1 Patient Times In Room 11/25/19 14:12:00 Out Room 11/25/19 14:44:00 Procedure Times Start 11/25/19 14:22:00 Stop 11/25/19 14:42:00 Anesthesia Times Last Modified By: Estella BERNAL, MELIAOR, Cortney 11/25/19 14:43:21 General Comments: 11/26/2019 Chart opened to review and send charges Anders Clayton VIDEO TAPE DUPLICATOR Case Attendance FT Entry 1 Entry 2 Entry 3 Case Attendee Althea Koroma MD VIDEO TAPE DUPLICATOR, Pattie Denson RN, Yaquelin Rowe Role Performed Surgeon - Primary Scrub - Primary Scrub - Primary Time In 11/25/19 14:12:00 11/25/19 14:12:00 11/25/19 14:12:00 Time Out 11/25/19 14:44:00 11/25/19 14:44:00 11/25/19 14:44:00 Procedure CATARACT EXTRACTION W/ CATARACT EXTRACTION W/ CATARACT EXTRACTION W/ INTRAOCULAR LENS(Right) INTRAOCULAR LENS(Right) INTRAOCULAR LENS(Right) Comments Last Modified By: Estella BERNAL, MELIAOR, Estella BERNAL, MELIAOR, Estella BERNAL, SAMANTHA, Cortney 11/25/19 Cortney 11/25/19 Cortney 11/25/19 14:43:22 14:43:22 14:43:22 Entry 4 Case Attendee MELIA Soria RNOR, Cortney Role Performed Lay Brother - Primary Time In 11/25/19 14:12:00 Time Out 11/25/19 14:44:00 Procedure CATARACT EXTRACTION W/ INTRAOCULAR LENS(Right) Comments Last Modified By: Estella BERNAL, MELIAOR, Cortney 11/25/19 14:43:22 Perioperative Protocols FT Pre-Care [...] Althea Koroma MD, Given Participants Sam SANCHEZ, Pattie Apodaca, Jarett BERNAL, Yaquelin Rowe, Estella BERNAL, Cortney SINGH Time [...] safely administered during the perioperative period For [place] please see scanned medication reconcilliation form for medications used at the field during the procedure. Implant Log FT Pre-Care Text: Records devices implanted during the operative or invasive procedure Entry 1 Procedure CATARACT EXTRACTION W/ Implant/Explant Implant INTRAOCULAR LENS(Right) Implant Identification FT Description HIMANSHU IOL [id number] SOFPORT Lot Number [id number] SIZE 20.5 [[id number] 20.5][F] Hog Buyer FT-BAUSCH AND LOMB Catalog ?# [id number] 20.5[F] Expiration Date 01/14/24 Unique Device [id number] Identifier (KATHLEEN) Human Readable {01}[id number] Machine Readable [id number] Barcode Barcode Usage Data FT Implant Site [...] 14:43 Tabitha Clayton CST 11/26/19 13:40 Normal [facility] Operative Reporton 0 Operative Report Date of [...] to the surface of the globe. A [employer] manometer was positioned and set at 20 [...] in good condition. Ludwin Estrada Dictated: 11/25/2019 #[id number] Typed: 11/26/2019 #[id number] cc: Althea Koroma M.D. [facility] Comment on above: Result Comment: Elec tronically Signed By: Althea Koroma MD.br\Date and Time Signed: 11/26/19 16:05 EST Inpatient Patient Summaryon 11-25-2019 Inpatient Patient Summary [address] [address] [facility] Clinical Discharge Instructions PERSON INFORMATION Name: AMINA LIM PHYSICIANS Admitting Physician: Althea Koroma MD Attending Physician: Althea Koroma MD PCP: Ara YE, Narciso Discharge Diagnosis: Cataract; Floppy iris syndrome Comment: PATIENT EDUCATION INFORMATION Instructions: Medication Leaflets: Follow up: With: Address: When: Althea Koroma [address], [place] [address] Business (1) Comments: Call physician if symptoms worsen Keep scheduled appointment Type Location Start Finish State U[place] Office Visit [facility] 02/10/2020 9:15 AM 02/10/2020 9:30 AM Confirmed [...] unit By Mouth every day. Comment: Normal [facility] Main OR PACU II [facility]ordon Main OR PACU II Record PACU Phase II Doc ument Type FT Summary Primary Physician: Althea Koroma MD Finalized Date/Time: 11/25/19 15:24:08 Pt. Name: AMINA LIM Adriano /Sex: 1945 Male Med Rec #: [id number] Physician: Althea Koroma MD Financial #: [id number] Pt. Type: A Room/Bed: [place] [address] Admit/Disch: 11/25/19 12:23:56 - 11/25/19 15:20:00 Institution: [...] By: Emy Thomas RN 11/25/19 15:24 Normal [facility] Main OR Preoperative Recordo n 11-25-2019 Main OR Preoperative Record Holding Area Document Type FT Summary Primary Physician: Althea Koroma MD Finalized Date/Time: 11/25/19 12:48:49 Pt. Name: AMINA LIM Adriano HernándezB./Sex: 1945 Male Med Rec #: [id number] Physician: Althea Koroma MD Financial #: [id number] Pt. Type: A Room/Bed: [place] [address] Admit/Disch: 11/25/19 12:23:56 - Institution: Case Times [...] By: Cynthia James RN 11/25/19 12:48 Normal [facility] Patient Education - Texton 0 11-25-2019 Patient Education - Text Normal [facility] Basic Metabolic Panlon 07-17 Anion gap [Moles/Vol] 10 mmol/L Normal 0-15 [facility] Calcium [Mass/Vol] 8.4 mg/dL Low 8.5-10.5 [facility] Chloride [Moles/Vol] 106 mmol/L Normal 98-110 [facility] CO2 [Moles/Vol] 21 mmol/L Low 23-32 [facility] Creatinine [Mass/Vol] 1.23 mg/dL Normal 0.7-1.4 [facility] Glucose [Mass/Vol] 176 mg/dL High 65-100 [facility] Potassium [Moles/Vol] 4.1 mmol/L Normal 3.5-5.0 [facility] Sodium [Moles/Vol] 137 mmol/L Normal 135-146 [facility] Urea nitrogen [Mass/Vol] 22 mg/dL Normal 8-25 [facility] CASE MANAGEMon 07-17-2019 CASE MANAGEM HNO ID: [id number] Author: Nichelle Henao (Sw) Service: ? Author Type: Clipper Operator Type: Care Mgt Progress Note Filed: 07/17/2019 [...] 17, 2019 TIME: 11:04 AM PAGER/CONTACT #: [phone] [facility] CASE MGT INIT Gomez 2018 CASE MGT INIT [facility] HNO ID: [id number] Author: Nichelle Henao (Sw) Service: ? 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 No Advance Directive: Current Advance Directive: None Merchant Tailor Attempted to Assist with AD Completion: Yes [...] None Has the Patient Been in a Intermediate Facility in the Past 30 days? No SOCIAL: Living Arrangement: Home Lives With: Spouse Financial Resources: Retired Primary Contact: Extended Emergency Contact Information Primary Emergency Contact: Tanja Lim Address: [address] [place], [place] [id number] [facility] Mobile Relation: Spouse Supportive: Yes Other Important [...] 0 I feel financially burdened by my gta-nx-dczfjj expenses for my prescription medication: Disagree completely [...] 17, 2019 TIME: 11:02 AM PAGER/CONTACT #: [phone] Normal [facility] CBCon 07-17-2019 Absolute nRBC <0.01 Normal <0.01 [facility] Erythrocyte distribution width (RBC) [Ratio] 13.2 % Normal 11.5-15.0 [facility] Hematocrit (Bld) [Volume fraction] 32.9 % Low 39.0-51.0 [facility] Hemoglobin (Bld) [Mass/Vol] 11.0 g/dL Low 13.0-17.0 [facility] MCH (RBC) [Entitic mass] 30.6 pG Normal 26.0-34.0 [facility] MCHC (RBC) [Mass/Vol] 33.4 g/dL Normal 30.5-36.0 [facility] MCV (RBC) [Entitic vol] 91.6 fL Normal 80.0-100.0 [facility] Platelet mean volume (Bld) [Entitic vol] 10.4 fL Normal 9.0-12.7 [facility] Platelets (Bld) [#/Vol] 188 10*3/uL Normal 150-400 [facility] RBC (Bld) [#/Vol] 3.59 10*6/uL Low 4.20-6.00 [facility] WBC (Bld) [#/Vol] 16.37 10*3/uL High 3.70-11.00 [facility] NURSING PROGon 07-17-2019 NURSING PROG HNO ID: [id number] Author: Prudence (Rn) DOLORES Bowen Service: Nursing Author Type: Registered Nurse Type: Nursing Progress Note Filed: 07/17/2019 1:33 PM Note Text: Nursing Progress Note Patient Name: Amina Lim Patient [facility]: [facility]/ [place]1 Daily Note:.Assumed care of patient, assessment completed, [...] note was completed by: Prudence Bowen RN [facility] PROGRESSon 07-17-2019 PROGRESS HNO ID: [id number] Author: Sky Echols Service: General Internal Medicine [...] Pulse: 83 [phone] 78 Resp: 18 Temp: 37.1 ?C (98.8 ?F) 36.9 [...] of care with Dr. Echols. Yeny Walters, MARKETING ACCOUNT MANAGER.CHAPLAIN RESIDENT July 17, 2019 10:36 AM I have seen the patient and verified the exam. I have personally reviewed all labs and imaging results. I have discussed with the NIPPING MACHINE OPERATOR and I have participated in montelongo components. I agree with the note as documented with additional comments if needed. The assessment and plan as outlined are reflection of our discussion. Sky Echols MD July 17, 2019 [facility] PROGRESS HNO ID: [id number] Author: Rolly (Raquel Osullivan MD Service: Orthopaedic [...] (U/L) Date Value 07/27/2009 29 URINALYSIS Specific Pfeifer, Ur Date Value Ref Range Status 08/24/2009 [...] Range Status 08/24/2009 NEG Neg -- Rolly Ousllivan MD Resident Physician PGY-2 Orthopaedic Surgery [id number] For urgent issues or if after 5:00 PM/weekends, please page [phone]) [facility] THERAPY NTon 07-17-2019 THERAPY NT HNO ID: [id number] Author: Roseanne (Ot) Gregory Service: Occupational Therapy Author Type: Occupational Therapist Type: Therapy (PT/OT/Speech/Resp) Filed: 07/17/2019 3:00 PM Note Text: Occupational Therapy Evaluation SERVICE DATE: 07/17/2019 SERVICE TIME: 50 to 102 ROOM: [place] [address] Recommended Discharge Disposition: Home Anticipated Discharge Needs: [...] of daily living (ADL) Interventions Provided: Evaluation;Self Detention Management (25376) $ Evaluation-Low (71196) Billed Units: 1 unit Self Detention Management (21446) Treatment Minutes: 23 2 units Skilled Intervention(s): [...] DATE: July 17, 2019 TIME: 2:46 PM [facility] THERAPY NT HNO ID: [id number] Author: Roseanne Jenkins Service: Occupational Therapy Author Type: Occupational Therapist Type: Therapy (PT/OT/Speech/Resp) Filed: 07/17/2019 3:08 PM Note Text: Occupational Therapy Treatment SERVICE DATE: 07/17/2019 SERVICE TIME: 1155 to 1240 ROOM: [place] [address] Recommended Discharge Disposition: Home Anticipated Discharge Needs: [...] daily living (ADL) Interventions Provided: Therapeutic Exercise (49752);Self Detention Management (48497) Therapeutic Exercise (75193) Treatment Minutes: 10 1 unit Skilled Intervention(s): Instruction in therapeutic exercise Verbal and tactile cuing provided Facilitation of muscle control, optimal recruitment and alignment Education in PROM shoulder to 90 degrees FF passively and work toward limit of 120 degrees. Spouse able to perform PROM to 90 degrees as well Self Detention Management (69927) Treatment Minutes: 35 2 units Skilled Intervention(s): [...] details for this therapy evaluation/treatment. SIGNATURE: SAÚL Chanel/Vishal PATIENT NAME: Amina Lim DATE: July 17, 2019 TIME: 3:04 PM [facility] THERAPY NT HNO ID: [id number] Author: Floresita (Pt) Cory Service: Physical Therapy Author Type: Physical Therapist Type: Therapy (PT/OT/Speech/Resp) Filed: 07/17/2019 1:21 PM Note Text: PHYSICAL THERAPY MISSED VISIT SERVICE DATE: 07/17/2019 SERVICE TIME: 1320 to 1320 ROOM: [place] [address] (EU OR POST OP) Attempted Evaluation. Patient not seen due to No Skilled Needs. Patient's post op needs can be met by OT. Pt does not have any functional mobility impairment. Will discontinue PT order. SIGNATURE: Floresita Ray PT PATIENT NAME: Amina Lim DATE: July 17, 2019 TIME: 1:21 PM [facility] HNO ID: [id number] Author: Armen Redmond (Rt) Service: Radiology Author Type: Training Professional Type: Lesson Prep Filed: 07/16/2019 3:56 PM Note Text: Radiology [...] RT Elijah July 16, 2019 3:56 PM [facility] HNO ID: [id number] Author: Armen Redmond (Rt) Service: Radiology Author Type: Training Professional Type: [facility] [employer] Filed: 07/16/2019 3:47 PM Note Text: Radiology [...] RT Elijah July 16, 2019 3:47 PM [facility] ANES Gerry 07-16-2019 ANES POST HNO ID: [id number] Author: Jordan Desai Service: Anesthesiology Author Type: Anesthesiologist Type: Anesthesia PostOp Filed: 07/16/2019 5:30 PM Note Text: POST ANESTHESIA EVALUATION NOTE SERVICE DATE: 07/16/2019 SERVICE TIME: 5:30 PM : 1945 Vitals: 07/16/19 1050 07/16/19 1519 07/16/19 170 Temp: 36.5 ?C (97.7 ?F) 36.6 ?C (97.9 ?F) 36.5 ?C (97.7 ?F) 07/16/19 16107/16/19 1630 07/16/19 16407/16/19 170 BP: 146/78 141/74 132/72 141/70 07/16/19 16107/16/19 1630 07/16/19 1645 07/16/19 170 Pulse: 62 61 65 71 07/16/19 16107/16/19 1630 07/16/19 16407/16/19 170 Resp: 18 16 27 18 07/16/19 16107/16/19 1630 07/16/19 16407/16/19 170 SpO2: 94% 94% 93% 96% [...] 16, 2019 TIME: 5:30 PM PAGER/CONTACT #: [phone] [facility] ANES PREOPon 07-16-2019 ANES PREOP HNO ID: [id number] Author: Jordan Desai Service: Anesthesiology Author Type: [...] Take 1 tablet by mouth once daily. Jbcim-4-JVG-EPA-Fish Oil (FISH OIL) 1,000 mg (120 mg-180 mg) cap Take 1 g by mouth once daily. Lecithin 1,200 mg cap Take 1 capsule by mouth once daily. lovastatin (MEVACOR) 20 mg tablet Take 20 mg by mouth daily at bedtime. multivitamin (MULTIPLE VITAMINS) tablet Take 1 tablet by mouth once daily. Saw Dunreith 160 mg capsule Take 160 mg by [...] 2 g INTRAVENOUS Pre-Op Once Mani (Lorelei) Sell II - acetaminophen 1,000 mg tab(s) [...] DATE: July 16, 2019 TIME: 10:51 AM [facility] CONSULTon 07-16-2019 CONSULT HNO ID: [id number] Author: Yeny Walters Service: General Internal Medicine [...] by mouth once daily. Disp: Rfl: 07/05/2019 Nuoxr-7-DJL-EPA-Fish Oil (FISH OIL) 1,000 mg (120 mg-180 [...] mouth once daily. Disp: Rfl: 07/05/2019 Saw Dunreith 160 mg capsule Take 160 mg by [...] the care of your patient. Yeny Walters APRN.CHAPLAIN RESIDENT July 16, 2019 5:46 PM Normal [facility] OPERATIVE NOon 07-16-2019 OPERATIVE NO HNO ID: [id number] Author: Anshu Thomas Service: Orthopaedic Surgery Author Type: Physician Type: Operative Report Filed: 07/16/2019 3:21 PM Note Text: [place] [address] [place] OPERATIVE REPORT NAME: Amina Oh [facility] #: [id number] DATE: 07/16/2019 (1:12pm-3:12pm) AGE: 74 SURGEON 1: Anshu Thomas M.D. NATURAL SCIENCES PROFESSOR: 1. Brain Kay M.D. 2. Rolly Osullivan [...] INDICATIONS: The patient is a 74 year oldrys-fghp-myk right-hand dominant white male who has a [...] a #2 Ticron suture passed in a ufvdvj-db-kguho fashion. Following this, all retractors were removed, [...] none COMPLICATIONS: none apparent Anshu Thomas M.D. [facility] XR SHOULDER SPECIFY 1V RTon 07-16-2019 [...] on Jul 16 2019 3:57PM EST [id number] [facility] NURSING PROGon 06-27-2019 NURSING PROG HNO ID: [id number] Author: Norma Sharp) DOLORES Adorno Service: Nursing [...] glucose 114 06/25/19 TANDS 30 day in [facility] 03/14/17 [place] Imaging Within Last 12 Months: 06/25/19 ct shoulder in [facility] 12/13/18 xr shoulder 3v Cardiac Testin06/25/19 prelim ekg in [facility] Last Menstrual Period: NA BMI Percentile (PEDS): N/A Risk Assessment: N/A Anesthesia Review: N/A Narrative: N/A Pre-op Considerations: PER [facility] HX CLARENCE- CPAP at night History of Prostate CA with Radiation and insertion of Seeds CKD follows with Nephrology Chart Check: IN PROGRESS NEED FINAL EKG Marialuisa Cates RN June 27, 2019 1:24 PM July 15, 2019 8:38 AM Final EKG from 06/25/19--Sinus allegra (57bpm) Norma Adorno RN [facility] Type and SCR (30D)on 019 ABO/RH(D) Positive Normal [facility] HOSPon 12-13-2018 HOSP Patient:Amina Lim MRN: [...] (VITAMIN C) 1,000 mg tablet [employer]AL Hxdzf-2-LPY-EPA-Fish Oil (FISH OIL) 1,000 mg (120 mg-180 mg) cap Lecithin 1,200 mg cap lovastatin (MEVACOR) 20 mg tablet multivitamin (MULTIPLE VITAMINS) tablet Saw Dunreith 160 mg capsule vitamin b complex tab [...] notes entered within the past 30 days Normal [facility] XR SHLDR >/=3V AP/RADHA AP/OTH R [...] on Dec 10 2018 9:43AM EST [id number] [facility] XR SHLDR >/=3V AP/RADHA AP/OTH R [...] on Dec 10 2018 9:37AM EST [id number] [facility] Vital Signs Date Time Vital Sign Value Performing Clinician Facility 10-22-2024 10:210500 Body height 179.1 cm Lyndsay Maditz DO Work Phone: [facility] 10-22-2024 10:21-0500 Body mass index (BMI) [Ratio] 28.84 kg/m2 Lyndsay Maditz DO Work Phone: [facility] 10-22-2024 10:210500 Body weight 92.5 kg Lyndsay Maditz DO Work Phone: [facility] 10-22-2024 10:21-0500 Diastolic blood pressure 69 mm[Hg] Lyndsay Maditz DO Work Phone: [facility] 10-22-2024 10:21-0500 Heart rate 64 /min Lyndsay Maditz DO Work Phone: [facility] 10-22-2024 10:21-0500 Systolic blood pressure 130 mm[Hg] Lyndsay Maditz DO Work Phone: [facility] 08-13-2024 13:14-0400 Body height 177.8 cm Queta MOSELEY Work Phone: [facility] 08-13-2024 13:14-0400 Body mass index (BMI) [Ratio] 29.96 kg/m2 Queta Tilley PA Work Phone: [facility] 08-13-2024 13:14-0400 Body weight 94.71 kg Queta MOSELEY Work Phone: [facility] 05-16-2023 09:10-0400 Body height 179.1 cm Lyndsay Maditz DO Work Phone: [facility] 05-16-2023 09:10-0400 Body weight 92.53 kg Lyndsay Maditz DO Work Phone: [facility] 05-16-2023 09:10-0400 Diastolic blood pressure 77 mm[Hg] Lyndsay Madcarito DO Work Phone: [facility] 05-16-2023 09:10-0400 Heart rate 43 /min Lyndsay Salgado DO Work Phone: [facility] 05-16-2023 09:10-0400 Systolic blood pressure 171 mm[Hg] Lyndsay Salgado DO Work Phone: [facility] 09-06-2022 11:20-0500 Body height 177.8 cm Yudith Irelands Other [facility] Other 09-06-2022 11:20-0500 Body mass index (BMI) [Ratio] 29.9 kg/m2 Yudith Irelands Other [facility] Other 09-06-2022 11:20-0500 Body temperature 96.5 [degF] Yudith Irelands Other [facility] Other 09-06-2022 11:20-0500 Body weight 94.53 kg Yudith Irelands Other [facility] Other 09-06-2022 11:20-0500 Diastolic blood pressure 88 mm[Hg] Azradha Irelands Other [facility] Other 09-06-2022 11:20-0500 Respiratory rate 18 /min Yudith Irelands Other [facility] Other 09-06-2022 11:20-0500 SaO2% (BldA) [Mass fraction] 98 % Azradha Bakhous Other [facility] Other 09-06-2022 11:20-0500 Systolic blood pressure 159 mm[Hg] Yudith Rubin Other [facility] Other 09-22-2021 11:20-0500 Body height 177.8 cm Ileana Earl Other [facility] Other 09-22-2021 11:20-0500 Body mass index (BMI) [Ratio] 30.93 kg/m2 Ileana Earl Other [facility] Other 09-22-2021 11:20-0500 Body temperature 96.4 [degF] Ileana Earl Other [facility] Other 09-22-2021 11:20-0500 Body weight 97.8 kg Ileana Earl Other [facility] Other 09-22-2021 11:20-0500 Diastolic blood pressure 75 mm[Hg] Ileana Earl Other [facility] Other 09-22-2021 11:20-0500 Respiratory rate 18 /min Ileana Earl Other [facility] Other 09-22-2021 11:20-0500 SaO2% (BldA) [Mass fraction] 97 % Ileana Earl Other [facility] Other 09-22-2021 11:20-0500 Systolic blood pressure 119 mm[Hg] Ileana Earl Other [facility] Other Encounters Encounter Date Encounter Type Care Provider Facility Start: 11-07-2024 End: 11-07-2024 Amariboo flowsheet Queta MOSELEY Work Phone: [facility] [...] Not Available Start: 10-28-2024 End: 10-28-2024 ambulatory [facility] Start: 10-22-2024 End: 10-22-2024 ambulatory NARCISO BULLOCK Facility:[facility] Start: 10-22-2024 End: 10-22-2024 Patient encounter procedure Lyndsay Salgado DO Work Phone: [facility] Comment on above: Stage 3a chronic kid per disease (HCC) (Primary Dx); Anemia of renal disease; Secondary renal hyperparathyroidism (HCC); Primary hypertension; SVT (supraventricular tachycardia) (HCC) Start: 10-18-2024 End: 10-18-2024 ambulatory Giacomo Carmichael BARREL LINE OPERATOR [facility] Comment on above: Acute [...] up visit related to original px Queta J Jarek PA Work Phone: [facility] [...] Start: 09-23-2024 End: 09-23-2024 Bamboo flowsheet Shirlene Rowe Medves PT Work Phone: [facility] Start: 09-23-2024 End: 09-23-2024 Bamboo flowsheet Shirlene M Medves PT Work Phone: [facility] Start: 09-23-2024 End: 09-23-2024 ambulatory Shirlene Blakely PT Work Phone: [facility] Comment on above: Acute postoperative pain of left knee (Primary Dx); S/P total knee replacement, left Start: 09-18-2024 End: 09-18-2024 Bamboo flowsheet Giacomo Carmichael BARREL LINE OPERATOR [facility] Start: 09-18-2024 End: 09-18-2024 Bamboo flowsheet Giacomo Carmichael BARREL LINE OPERATOR [facility] Start: 09-18-2024 End: 09-18-2024 ambulatory Giacomoellis Carmichael BARREL LINE OPERATOR [facility] Comment on above: S/P [...] ORTHO Start: 09-05-2024 End: 09-05-2024 Bamboo flowsheet Quetapippa Tilley PA Work Phone: [facility] Start: 09-05-2024 End: 09-05-2024 Postop follow up visit related to original px Queta Tilley PA Work Phone: [facility] Comment on above: S/P TKR (total knee replacement), left (Primary Dx); Post-operative pain Start: 09-05-2024 End: 09-05-2024 ambulatory QUETA Anders TILLEY Not Available Start: 08-29-2024 End: 08-30-2024 Refill José Manuel Wylie NIPPING MACHINE OPERATOR Work Phone: [facility] Comment on above: Post-operative pain Start: 08-21-2024 End: 08-21-2024 Refill José Manuel Wylie NIPPING MACHINE OPERATOR Work Phone: [facility] Comment on above: Post-operative pain (Primary Dx) Start: 08-20-2024 End: 08-20-2024 Orders Only Queta MOSELEY Work Phone: [facility] Comment on above: Encounter for other preprocedural examination Start: 08-20-2024 End: 08-20-2024 Patient encounter status Queta MOSELEY Work Phone: [facility] Start: 08-14-2024 End: 08-14-2024 Telephone encounter Jr. El Ruiz DO Work Phone: [facility] Comment on above: Surgery Start: 08-13-2024 End: 08-13-2024 ambulatory QUETA TILLEY [facility] Start: 08-13-2024 Encounter for other preprocedural examination QUETA TILLEY [facility] Start: 08-13-2024 End: 08-13-2024 External Result Encounter Queta MOSELEY Work Phone: [facility] External Department Unsolicited Start: 08-13-2024 End: 08-13-2024 External Result Encounter Queta Mcnamara Jarek MOSELEY Work Phone: [facility] External Department Unsolicited Start: 08-13-2024 End: 08-13-2024 Orders Only Queta Mcnamara Jarek MOSELEY Work Phone: [facility] Comment on above: Encounter for other preprocedural examination Start: 08-13-2024 End: 08-13-2024 Patient encounter status Queta Mcnamara Jarek MOSELEY Work Phone: [facility] Start: 08-13-2024 End: 08-13-2024 Patient encounter procedure Queta Mcnamara Jarek MOSELEY Work Phone: [facility] Comment on above: Preop examination (P rimary Dx); Primary osteoarthritis of left knee; Eczema, unspecified type Start: 08-13-2024 End: 08-13-2024 Preprocedural examination done Queta Mcnamara Jarek MOSELEY Work Phone: [facility] Start: 08-13-2024 End: 08-13-2024 ambulatory QUETA Mcnamara JAREK Not Available Start: 08-07-2024 End: 08-07-2024 Carlos Ruiz DO Work Phone: [facility] Start: 08-07-2024 End: 08-07-2024 Carlos Ruiz DO Work Phone: [facility] Start: 08-07-2024 End: 08-07-2024 ambulatory EL GONSALEZ Not Available Start: 08-07-2024 End: 08-07-2024 Office outpatient visit 25 minutes Jr. El Ruiz DO Work Phone: [facility] Comment on above: Acute pain of right knee (Primary Dx); History of right knee joint replacement; Primary osteoarthritis of left knee Start: 06-26-2024 End: 06-26-2024 Carlos Matos Stepflaco DO Work Phone: [facility] Start: 06-26-2024 End: 06-26-2024 Bamboo flowsheet Jr. El Matos Stepanic DO Work Phone: [facility] Start: 06-26-2024 End: 06-26-2024 Postop follow up visit related to original px Jr. El Shawna Stepanic DO Work Phone: [facility] Comment on above: S/P TKR (total knee replacement), right (Primary Dx); Primary osteoarthritis of left knee Start: 06-26-2024 End: 06-26-2024 ambulatory ., EL Shawna STEPFLACO Not Available Start: 05-16-2024 End: 05-16-2024 ambulatory SHIRLENE BLAKELY Not Available Start: 05-15-2024 End: 05-15-2024 ambulatory QUETA TILLEY Not Available Start: 05-14-2024 End: 05-14-2024 ambulatory GIACOMO CARMICHAEL Not Available Start: 05-08-2024 End: 05-08-2024 ambulatory BONILLA HOWARD Not Available Start: 05-06-2024 End: 05-06-2024 ambulatory AMEENA GUTANMAYK Not Available Start: 05-01-2024 End: 05-01-2024 ambulatory BONILLA HOWARD Not Available Start: 04-29-2024 End: 04-29-2024 ambulatory BONILLA HOWARD Not Available Start: 04-26-2024 End: 04-26-2024 ambulatory AMEENA GUZIK Not Available Start: 04-24-2024 End: 04-24-2024 ambulatory AMEENA GUTANMAYK Not Available Start: 04-22-2024 End: 04-22-2024 ambulatory SHIRLENE BLAKELY Not Available Start: 04-17-2024 End: 04-17-2024 ambulatory QUETA TILLEY Not Available Start: 03-20-2024 End: 03-20-2024 ambulatory SHIRLENE BLAKELY Not Available Start: 03-18-2024 End: 03-18-2024 Patient encounter procedure MD Narciso Bullock Work Phone: [facility] Work Phone: Start: 03-18-2024 End: 03-18-2024 ambulatory MD Narciso Bullock Work Phone: [facility] Work Phone: Start: 03-18-2024 Encounter for other preprocedural examination Queta Tilley [facility] Start: 03-18-2024 End: 03-18-2024 ambulatory QUETA TILLEY Not Available Start: 02-02-2024 End: 02-02-2024 ambulatory EL GONSALEZ Not Available Start: 05-24-2023 ambulatory No Pcp MARKETING ACCOUNT MANAGER Alfie townsend [place] Start: 05-16-2023 End: 05-16-2023 Patient encounter procedure Lyndsay Salgado DO Work Phone: [facility] Comment on above: Chronic kidney disea se, unspecified CKD stage (Primary Dx); Bradycardia; Generalized pain; Anemia of renal disease; Primary hypertension Start: 03-15-[address] NARCISO BULLOCK . Facili ty:[facility] Start: 10-03-2022 End: 10-03-[address] NARCISO BULLOCK . Facility:[facility] Start: 09-06-2022 End: 09-06-2022 ambulatory Yudith Rubin Other [facility] Other Start: 09-06-2022 Office outpatient vi sit 15 minutes Yudith Rubin [facility] Start: 09-01-2022 End: 09-02-[address] NARCISO BULLOCK . Facility:[facility] Start: 09-01-2022 End: 09-02-[address] NARCISO BULLOCK . Facility:[facility] Start: 09-22-2021 End: 09-22-2021 ambulatory Ileana Earl Other [facility] Other Start: 09-22-2021 Office outpatient vi sit 15 minutes Ileana Earl [facility] Start: 12-10-2018 End: 12-10-2018 Patient encounter procedure [facility] Procedures Date Procedure Procedure Detail Performing Clinician Start: 10-03-2024 Radiologic examinati on knee 1/2 views Queta Tilley PA Work Phone: Start: 08-13-2024 Thromboplastin time partial plasma/whole blood Queta MOSELEY Work Phone: Start: 09-01-[address] EH BULLOCK . Comment on above: Performed By: #### P [facility] #### [facility] [address] [place], [place] [address] Dr. Xena Pickard Start: 06-25-2019 Antibody screen History of operative procedure on knee History of right knee joint replacement El Shawna Ruiz DO Work Phone: Plan of Treatment Date Care Activity Detail Author Start: 08-13-2027 Diabetes Screening Diabetes Screenin g [facility] Start: 11-03-2025 End: 11-03-2025 Patient encounter procedure 11/03/2025 8:30 AM EST Office Visit [facility] [address] [place] [phone] Queta Tilley, LORELEI [address] [facility] [address] [place] [address] [facility] Start: 10-16-2025 End: 01-15-2026 25-hydroxyvitamin D3 [Mass/volume] in Serum or Plasma VITAMIN D 25 HYDROXY Lab Routine Stage 3a chronic kidney disease (HCC) Expected: 10/16/2025, Expires: 01/15/2026 [facility] Comment on above: Expected: 10/16/2025 , Expires: 01/15/2026 Start: 10-16-2025 End: 01-15-2026 CBC panel - Blood by Automated count COMPLETE BLOOD COUNT Lab Routine Stage 3a chronic kidney disease (HCC) Expected: 10/16/2025, Expires: 01/15/2026 [facility] Comment on above: Expected: 10/16/2025 , Expires: 01/15/2026 Start: 10-16-2025 End: 01-15-2026 Parathyrin.intact [Mass/volume] in Serum or Plasma PTH INTACT Lab Routine Stage 3a chronic kidney disease (HCC) Expected: 10/16/2025, Expires: 01/15/2026 [facility] Comment on above: Expected: 10/16/2025 , Expires: 01/15/2026 Start: 10-16-2025 End: 01-15-2026 Protein/Creatinine [Mass Ratio] in Urine PROTEIN / CREATININE RATIO Lab Routine Stage 3a chronic kidney disease (HCC) Expected: 10/16/2025, Expires: 01/15/2026 [facility] Comment on above: Expected: 10/16/2025 , Expires: 01/15/2026 Start: 10-16-2025 End: 01-15-2026 Renal function 2000 panel - Serum or Plasma RENAL FUNCTION PANEL Lab Routine Stage 3a chronic kidney disease (HCC) Expected: 10/16/2025, Expires: 01/15/2026 [facility] Work Phone: Comment on above: Expected: 10/16/2025 , Expires: 01/15/2026 Start: 10-16-2025 End: 01-15-2026 Urinalysis complete panel - Urine URINALYSIS, WITH MICROSCOPIC Lab Routine Stage 3a chronic kidney disease (HCC) Expected: 10/16/2025, Expires: 01/15/2026 [facility] Comment on above: Expected: 10/16/2025 , Expires: 01/15/2026 Start: 08-13-2025 Complete blood count Hemoglobin/Bryon tocrit [facility] Start: 08-13-2025 Creatinine measurement Serum Creatin ine [facility] Start: 11-07-2024 End: 11-07-2024 Patient encounter procedure [facility] Comment on above: S/P TKR (total knee replacement), left (Primary Dx) Start: 10-22-2024 End: 10-22-2024 Patient encounter procedure 10/22/2024 10:20 AM EST Office Visit [facility]ney Medicine [address] [place] [place] [address] Lyndsay Salgado DO [address] [place] [address] 1 year Kidney Medicine Comment on above: 1 year Start: 10-18-2024 End: 10-18-2024 ambulatory 10/18/2024 8:30 AM EST Treatment [facility] [address] [place] [phone] Giacomo Carmichael PTA [facility] Start: 10-17-2024 End: 01-16-2025 25-hydroxyvitamin D3 [Mass/volume] in Serum or Plasma VITAMIN D 25 HYDROXY Lab Routine Stage 3 chronic kidney disease, unspecified whether stage 3a or 3b CKD (HCC) Expected: 10/17/2024, Expires: 01/16/2025 [facility] Comment on above: Expected: 10/17/2024 , Expires: 01/16/2025 Start: 10-17-2024 End: 01-16-2025 CBC panel - Blood by Automated count COMPLETE BLOOD COUNT Lab Routine Stage 3 chronic kidney disease, unspecified whether stage 3a or 3b CKD (HCC) Expected: 10/17/2024, Expires: 01/16/2025 [facility] Comment on above: Expected: 10/17/2024 , Expires: 01/16/2025 Start: 10-17-2024 End: 01-16-2025 Microalbumin/Creatinine [Mass Ratio] in Urine ALBUMIN/CREATININE RATIO, URINE Lab Routine Stage 3 chronic kidney disease, unspecified whether stage 3a or 3b CKD (HCC) Expected: 10/17/2024, Expires: 01/16/2025 [facility] Work Phone: Comment on above: Expected: 10/17/2024 , Expires: 01/16/2025 Start: 10-17-2024 End: 01-16-2025 Parathyrin.intact [Mass/volume] in Serum or Plasma PTH INTACT Lab Routine Stage 3 chronic kidney disease, unspecified whether stage 3a or 3b CKD (HCC) Expected: 10/17/2024, Expires: 01/16/2025 [facility] Comment on above: Expected: 10/17/2024 , Expires: 01/16/2025 Start: 10-17-2024 End: 01-16-2025 Protein/Creatinine [Mass Ratio] in Urine PROTEIN / CREATININE RATIO Lab Routine Stage 3 chronic kidney disease, unspecified whether stage 3a or 3b CKD (HCC) Expected: 10/17/2024, Expires: 01/16/2025 [facility] Comment on above: Expected: 10/17/2024 , Expires: 01/16/2025 Start: 10-17-2024 End: 01-16-2025 Renal function 2000 panel - Serum or Plasma RENAL FUNCTION PANEL Lab Routine Stage 3 chronic kidney disease, unspecified whether stage 3a or 3b CKD (HCC) Expected: 10/17/2024, Expires: 01/16/2025 [facility] Comment on above: Expected: 10/17/2024 , Expires: 01/16/2025 Start: 10-17-2024 End: 01-16-2025 Urinalysis complete panel - Urine URINALYSIS WITH MICROSCOPIC, REFLEX CULTURE Lab Routine Stage 3 chronic kidney disease, unspecified whether stage 3a or 3b CKD (HCC) Expected: 10/17/2024, Expires: 01/16/2025 [facility] Comment on above: Expected: 10/17/2024 , Expires: 01/16/2025 Start: 10-16-2024 Advance Directive Discussion Advance Directive Discussion [facility] Start: 10-08-2024 End: 10-08-2024 ambulatory 10/08/2024 10:15 AM EST Treatment [facility] [address] [facility] [place] [phone] Shirlene Blakely, PT [address] [facility] [place] [address] [facility] Start: 10-03-2024 End: 10-03-2024 ambulatory 10/03/2024 10:00 AM EST Treatment [facility] [address] [place] [address] Shirlene Blakely, PT [address] [facility] [place] [address] [facility] Start: 10-03-2024 End: 10-03-2024 Patient encounter procedure [facility] Comment on above: S/P TKR (total knee replacement), left (Primary Dx) Start: 09-30-2024 End: 09-30-2024 ambulatory 09/30/2024 5:30 PM EST Treatment [facility] [address] [place] [address] Roseanne Sousa, PT [address] [place] [address] [facility] Start: 09-30-2024 End: 09-30-2024 ambulatory 09/30/2024 10:30 AM EST Treatment [facility] [address] [place] [address] Ameena Mahajan BARREL LINE OPERATOR [facility] Start: 09-27-2024 End: 09-27-2024 ambulatory [facility] Comment on above: Arrived Start: 09-23-2024 End: 09-23-2024 ambulatory [facility] Comment on above: Acute postoperative pain of left knee (Primary Dx); S/P total knee replacement, left Start: 09-20-2024 End: 09-20-2024 ambulatory 09/20/2024 8:45 AM EST Treatment [facility] [address] [place] [address] Roseanne Sousa, PT [address] [place] [address] [facility] Start: 09-18-2024 End: 09-18-2024 ambulatory 09/18/2024 9:00 AM EST Treatment [facility] [address] [place] [address] Giacomo Carmichael BARREL LINE OPERATOR [facility] Start: 09-16-2024 End: 09-16-2024 [...] Preop examination Expected: 08/09/2024 (Approximate), Expires: 08/09/2025 [facility] Work Phone: Comment on above: Expected: 08/09/2024 (Approximate), Expires: 08/09/2025 Start: 08-09-2024 End: 08-13-2025 Bacteria identified in Urine by Culture [facility] Comment on above: Expected: 08/09/2024 (Approximate), Expires: 08/09/2025 Expected: 08/09/2024 , Expires: 08/13/2025 Start: 08-09-2024 End: 08-09-2025 CBC W Auto Differential panel - Blood CBC auto differential Lab Routine Preop examination Expected: 08/09/2024 (Approximate), Expires: 08/09/2025 [facility] Comment on above: Expected: 08/09/2024 (Approximate), Expires: 08/09/2025 Start: 08-09-2024 End: 08-09-2025 Comprehensive metabolic 2000 panel - Serum or Plasma Comprehensive metabolic panel Lab Routine Preop examination Expected: 08/09/2024 (Approximate), Expires: 08/09/2025 [facility] Comment on above: Expected: 08/09/2024 (Approximate), Expires: 08/09/2025 Start: 08-09-2024 End: 08-09-2025 Prothrombin time (PT) in Blood by Coagulation assay Protime-INR Lab Routine Preop examination Expected: 08/09/2024 (Approximate), Expires: 08/09/2025 [facility] Comment on above: Expected: 08/09/2024 (Approximate), Expires: 08/09/2025 Start: 08-09-2024 End: 08-09-2025 Urinalysis complete panel - Urine Urinalysis with reflex microscopic Lab Routine Preop examination Expected: 08/09/2024 (Approximate), Expires: 08/09/2025 [facility] Comment on above: Expected: 08/09/2024 (Approximate), Expires: 08/09/2025 Start: 08-09-2024 End: 08-09-2025 XR Femur and Tibia Views for leg length XR lower extremity leg length evaluation Imaging Routine Preop examination Expected: 08/09/2024 (Approximate), Expires: 08/09/2025 [facility] Comment on above: Expected: 08/09/2024 (Approximate), Expires: 08/09/2025 Start: 08-07-2024 End: 08-07-2024 Patient encounter procedure 08/07/2024 10:00 AM EDT Office Visit [facility] [address] [place] [address] Jr. El Ruiz, DO [address] [place] [address] [facility] Start: 06-26-2024 End: 06-26-2024 Patient encounter procedure 06/26/2024 11:15 AM EDT Office Visit [facility] [address] [place] [address] Jr. El Ruiz, DO [address] [facility] [address] [place] [address] Arrived [facility] Comment on above: Arrived Start: 06-16-2024 Covid-19 Vaccine ( season) Covid-19 Vaccine ( season) [facility] Start: 06-16-2024 Influenza vaccination N [facility] Start: 06-14-2024 Complete blood count Hemoglobin/Bryon tocrit [facility] Start: 06-14-2024 Creatinine measurement Serum Creatin ine [facility] Start: 06-14-2024 HEMOGLOBIN/HEMATOCRIT HEMOGLOBIN/HEM ATOCRIT [facility] Start: 06-14-2024 SERUM CREATININE SERUM CREATININE Cl [facility] Start: 03-18-2024 Bacteria identified in Urine by Culture [facility] Start: 06-16-2023 Influenza vaccination INFLUENZA (#1) [facility] Start: 05-16-2023 End: 07-16-2023 25-hydroxyvitamin D3 [Mass/volume] in Serum or Plasma VITAMIN D 25 HYDROXY Lab Routine Chronic kidney disease, unspecified CKD stage Expected: 05/16/2023, Expires: 07/16/2023 [facility] Work Phone: Comment on above: Expected: 05/16/2023 , Expires: 07/16/2023 Start: 05-16-2023 End: 07-16-2023 MONOCLONAL PROTEIN, SERUM (BLOOD) MONOCLONAL PROTEIN, SERUM (BLOOD) Lab Routine Chronic kidney disease, unspecified CKD stage Expected: 05/16/2023, Expires: 07/16/2023 [facility] Work Phone: Comment on above: Expected: 05/16/2023 , Expires: 07/16/2023 Start: 05-16-2023 End: 07-16-2023 Parathyrin.intact [Mass/volume] in Serum or Plasma PTH INTACT BLD Lab Routine Chronic kidney disease, unspecified CKD stage Expected: 05/16/2023, Expires: 07/16/2023 [facility] Work Phone: Comment on above: Expected: 05/16/2023 , Expires: 07/16/2023 Start: 10-16-2022 ADVANCE DIRECTIVE DISCUSSION ADVANCE DIRECTIVE DISCUSSION [facility] Start: 10-16-2022 DEPRESSION ASSESSMENT DEPRESSION ASS ESSMENT [facility] Start: 07-17-2022 DIABETES SCREEN DIABETES SCREEN [facility] Start: 07-17-2022 Diabetes Screening Diabetes Screenin g [facility] Start: 2021 RSV Vaccine (1 - 1-d ose 75+ series) RSV Vaccine (1 - 1-dose 75+ series) [facility] Start: 03-04-2021 COVID-19 VACCINE (3 - Pfizer series) COVID-19 VACCINE (3 - Pfizer series) [facility] Start: 07-17-2020 HEMOGLOBIN/HEMATOCRIT HEMOGLOBIN/HEM ATOCRIT [facility] Start: 07-17-2020 SERUM CREATININE SERUM CREATININE Cl [facility] Start: 11-16-2017 PNEUMOCOCCAL: 65+ (2 - PCV) PNEUMOCOCCAL: 65+ (2 - PCV) [facility] Start: 2011 Fall Risk Screening Fall Risk Screen [facility] Start: 1996 Administration of varicella zoster vaccine Zoster (Shingles) Vaccine (1 of 2) [facility] Start: 1996 SHINGRIX VACCINE (1 of 2) SHINGRIX VACCINE (1 of 2) [facility] Start: 1965 DTaP,Tdap and Td Vaccines (1 - Tdap) DTaP,Tdap and Td Vaccines (1 - Tdap) [facility] Start: 1965 Urine microalbumin profile [facility] Start: 1964 Adult BMI Screening Adult BMI Screen ing [facility] Start: 1964 ANNUAL PCP TEAM UNIVERSAL WORKER ASSISTED LIVING MAURI DISEASE VISIT ANNUAL PCP TEAM CHRONIC DISEASE VISIT [facility] Start: 1964 Anxiety Screening Anxiety Screening [facility] Start: 1964 BP CONTROLLED (<130/80) BP CONTROLLE D (<130/80) [facility] Start: 1964 Depression Screening Depression Scre ening [facility] Start: 1964 HEPATITIS C SCREENING HEPATITIS C SC [facility] Start: 1964 Hepatitis C screening Hepatitis C Sc [facility] Start: 1958 Depression Screening Depression Scre ening [facility] Start: 1958 Tobacco Screening Tobacco Screening [facility] Start: 1946 Medicare Annual Well ness Visit Medicare Annual Wellness Visit [facility] Bacteria identified in Urine by Culture Urine Culture Microbiology Routine Encounter for other preprocedural examination 08/13/2024 6:13 PM EDT [facility] End: 05-16-2024 CBC panel - Blood by Automated count CBC Lab Routine Chronic kidney disease, unspecified CKD stage Every 3 months for 4 Occurrences starting 05/16/2023 until 05/16/2024 [facility] Work Phone: Comment on above: Every 3 months for 4 Occurrences starting 05/16/2023 until 05/16/2024 End: 05-16-2024 Protein/Creatinine [Mass Ratio] in Urine PROTEIN CREATININE RATIO Lab Routine Chronic kidney disease, unspecified CKD stage Every 3 months for 4 Occurrences starting 05/16/2023 until 05/16/2024 [facility] Work Phone: Comment on above: Every 3 months for 4 Occurrences starting 05/16/2023 until 05/16/2024 End: 05-16-2024 Renal function 2000 panel - Serum or Plasma RENAL FUNCTION PANEL Lab Routine Chronic kidney disease, unspecified CKD stage Every 3 months for 4 Occurrences starting 05/16/2023 until 05/16/2024 [facility] Work Phone: Comment on above: Every 3 months for 4 Occurrences starting 05/16/2023 until 05/16/2024 End: 05-16-2024 Urinalysis complete panel - Urine URINALYSIS, WITH MICROSCOPIC Lab Routine Chronic kidney disease, unspecified CKD stage Every 3 months for 4 Occurrences starting 05/16/2023 until 05/16/2024 [facility] Work Phone: Comment on above: Every 3 months for 4 Occurrences starting 05/16/2023 until 05/16/2024 End: 06-16-2024 US KIDNEY/BLADDER US KIDNEY/BLADDER Radiology Routine Chronic kidney disease, unspecified CKD stage 1 Occurrences starting 05/16/2023 until 06/16/2024 [facility] Work Phone: Comment on above: 1 Occurrences starti ng 05/16/2023 until 06/16/2024 [facility] Immunizations Immunization Date Immunization Notes Care Provider [facility] 07-26-2021 influenza virus vacc ine, unspecified formulation Jr. Ruiz DO Work Phone: [facility] 01-07-2021 COVID-19 original vaccine, age 12+ yr, monovalent (PFIZER-BIONTECH - PURPLE TOP) Lyndsay Salgado DO Work Phone: [facility] Work Phone: 12-17-2020 COVID-19 original vaccine, age 12+ yr, monovalent (PFIZER-BIONTECH - PURPLE TOP) Lyndsay Salgado DO Work Phone: [facility] Work Phone: 11-16-2016 pneumococcal polysaccharide vaccine, 23 valent Lyndsay Salgado DO Work Phone: [facility] Payers Date Payer Category Payer Self-pay [id number] 2023 Unknown [id number] 2021 Commercial Indemnity [employer] [id number] 2021 Private Health Insurance [employer] [id number]. [id number] 2020 Unknown [id number]. 1.13.159.2. [id number] 2011 Medicare [id number]. 1.13.159.2. [id number] 1959 Medicare [id number] 2.16.840.1.149835.19 1959 Unknown [id number] 2.16.840.1.418431.19 1946 Unknown [id number] 2.16.840.1.590255.3.579.2. 593 1946 Unknown [id number] 2.16.840.1.530218.3.579.2. 593 1946 Unknown [id number] 2.16.840.1.072454.3.579.2. 593 1946 Unknown [id number] 2.16.840.1.134534.3.579.2. 593 1946 Unknown [id number] 2.16.840.1.115932.3.579.2. 1286 1946 Unknown [id number] 2.16.840.1.709935.3.579.2. 1286 1946 Unknown [id number] 2.16.840.1.163672.3.579.2. 125 1946 Unknown [id number] 2.16.840.1.511385.3.579.2. 1258 1946 Unknown [id number] 2.16.840.1.781348.3.579.2. 1258 1946 Unknown [id number] 2.16.840.1.768770.3.579.2. 1258 1946 Unknown [id number] 2.16.840.1.540548.3.579.2. 1258 1946 Unknown [id number] 2.16.840.1.540720.3.579.2. 1258 1946 Unknown [id number] 2.16.840.1.279089.3.579.2. 125 1946 Unknown [id number] 2.16.840.1.335002.3.579.2. 125 1946 Unknown [id number] 2.16.840.1.751825.3.579.2. 1258 1946 Unknown [id number] 2.16.840.1.399354.3.579.2. 1258 1946 Unknown [id number] 2.16.840.1.212242.3.579.2. 125 1946 Unknown [id number] 2.16.840.1.516612.3.579.2. 1258 1946 Unknown [id number] 2.16.840.1.192863.3.579.2. 1258 1946 Unknown [id number] 2.16.840.1.095251.3.579.2. 1258 1946 Unknown [id number] 2.16.840.1.860050.3.579.2. 1258 1946 Unknown [id number] 2.16.840.1.124433.3.579.2. 1258 1946 Unknown [id number] 2.16.840.1.879296.3.579.2. 1258 1946 Unknown [id number] 2.16.840.1.258004.3.579.2. 1258 1946 Unknown [id number] 2.16840.1.395543.3.579.2. 1258 1946 Unknown [id number] 2.16.840.1.413885.3.579.2. 1258 1946 Unknown [id number] 2.16.840.1.824709.3.579.2. 1258 1946 Unknown [id number] 2.16.840.1.031384.3.579.2. 1258 1946 Unknown [id number] 2.16840.1.781461.3.579.2. 1258 1946 Unknown [id number] 2.16.840.1.626540.3.579.2. 1258 1946 Unknown [id number] 2.16.840.1.347214.3.579.2. 1258 1946 Unknown [id number] 2.16.840.1.379472.3.579.2. 1258 1946 Unknown [id number] 2.16.840.1.289937.3.579.2. 1258 1946 Unknown [id number] 2.16.840.1.568625.3.579.2. 9 1946 Unknown [id number] 2.16.840.1.046092.3.579.2. 1258 1946 Unknown [id number] 2.16.840.1.348120.3.579.2. 1258 1946 Unknown [id number] 2.16.840.1.515609.3.579.2. 1258 1946 Unknown [id number] 2.16.840.1.401901.3.579.2. 1258 1946 Unknown [id number] 2.16.840.1.137256.3.579.2. 1258 1946 Unknown [id number] 2.16.840.1.275826.3.579.2. 1259 Unknown [id number] 2.16.840.1.421373.3.579.2. 531 Social History Date Type Detail Facility Unknown if ever smoked [facility] Other Start: 03-27-2019 End: 05-16-2023 Sex Assigned At [facility] Start: 05-16-2023 End: 09-25-2023 Tobacco smoking status NEIS Never smoked tobacco [facility] Start: 05-16-2023 End: 09-25-2023 Tobacco use and exposure Smokeless tobacco non-user [facility] Start: 05-16-2023 End: 11-07-2024 Alcohol intake Current drinker of alcohol (finding) [facility] Start: 03-27-2019 End: 05-16-2023 History of Social function [facility] Start: 09-18-2023 PHQ2 Score 0 [facility] Start: 06-25-2019 Alcohol Comment 2 drinks every other day, maybe 3. beer. [facility] Start: 1945 Sex Assigned At Male [facility] Start: 06-18-2019 Gender identity Identifies as male gender (finding) [facility] Tobacco smoking status [facility] Tobacco smoking consumption unknown [facility] Start: 1945 Sex assigned at Not on file P [email or web address] Start: 05-21-2015 Sex Male (finding) [facility] Medical Equipment Procedure Code Equipment Code Equipment Origin al Text Equipment Identifier Dates Ile-Pv-Z-Kind Im plant - [id number] Start: 03-02-2017 Comment on above: Description: CHECK P RICE Humeral Insert S ocket 36 M + 4 [id number] Start: 07-16-2019 Insert Rsp 36mm Standard Socket Semiconstrain Humerus - [id number] Start: 03-02-2017 Stem Altivate Dj o Surgical 12 Standard 108mm Humeral Sterile Shoulder - [id number] Start: 07-16-2019 Baseplate Rsp P2 30mm Glenoid Sterile - [id number] Start: 07-16-2019 Screw Rsp 5mm 18 mm Bone Lock Glenoid Baseplate Shoulder - [id number] Start: 03-02-2017 Screw Rsp 5mm 26 mm Bone Lock Glenoid Baseplate Shoulder - [id number] Start: 07-16-2019 Baseplate Rsp 6. 5mm Wiggins 30mm Glenoid - [id number] Start: 03-02-2017 Head Rsp 36mm Ne utral Glenoid Retain Screw - [id number] Start: 03-02-2017 Head Rsp 36mm Ne utral Glenoid Retain Screw - [id number] Start: 07-16-2019 Screw Rsp 5mm 30 mm Bone Lock Glenoid Baseplate Shoulder - [id number] Start: 03-02-2017 Screw Rsp 5mm 30 mm Bone Lock Glenoid Baseplate Shoulder - [id number] Start: 03-02-2017 Screw Rsp 5mm 18 mm Bone Lock Glenoid Baseplate Shoulder - [id number] Start: 03-02-2017 Screw Rsp 5mm 22 mm Bone Lock Glenoid Baseplate Shoulder - [id number] Start: 07-16-2019 Screw Rsp 5mm 26 mm Bone Lock Glenoid Baseplate Shoulder - [id number] Start: 07-16-2019 Screw Rsp 5mm 18 mm Bone Lock Glenoid Baseplate Shoulder - [id number] Start: 07-16-2019 Clinical Notes 12-19-2016 to 11-07-2024 Queta [place], LORELEI - 11/07/2024 8:15 AM Lyndsay Pereira, - 10/22/2024 10:20 AM ESTTelephone [place] - Porfirio Hamilton, DEVIN - 10/17/2024 3:24 PM Camryn Jae Zora, PT - 10/08/2024 10:15 AM EST Note Date & Type Note Facility 11-07-2024 History of Present illness Narrative Images from the original note were not included. HISTORY OF PRESENT ILLNESS: POST OP PT Amina Lim is an 79 y.o. @ male. (EST PT) S/P (L) TKA 08/22/24 (11 WKS ) XRAYS DONE 10/03/24 IN EPIC FINISHED PT @[facility] 10/18/24 DOING WELL. S/P EXTENDED PT X2 [...] requiring urgent evaluation. documented in this encounter [facility] 10-28-2024 Note [place] Cardiology - [facility] Subjective Amina Lim is a 79 y.o. [...] used to be (more content not included)... [facility] 10-22-2024 History of Present illness Narrative Images from the original note were not included. Department of Kidney Medicine Medical Specialties [facility] SERVICE DATE: 10/22/2024 SERVICE TIME: 10:27 [...] renal function. Following with cardiology at the [facility]. No longer taking NSAIDs after his bilateral [...] Take 1 tablet by mouth once daily. Ujbkc-[id number]-EPA-Fish Oil (FISH OIL) 1,000 mg (120 mg-180 mg) cap Take 1 g by mouth once daily. lovastatin (MEVACOR) 20 mg tablet Take 20 mg by mouth daily at bedtime. multivitamin (MULTIPLE VITAMINS) tablet Take 1 tablet by mouth once daily. Saw [place] 160 mg capsule Take 160 mg by [...] which included preparing to see the patient, [id number] patient care, completing clinical documentation, and obtaining and/or reviewing separately obtained history. Visit [facility] Inherent E&M Associated with [facility] Srvc ([id number]) SIGNATURE: Lyndsay Salgado DO MHSA PATIENT NAME: Amina Lim DATE: October 22, 2024 TIME: 10:48 AM CC: PRIMARY CARE PHYSICIAN: Narciso Bullock MD documented in this encounter [facility] 10-22-2024 Note HNO ID: [id number] Author: LYNDSAY SALGADO DO Service: ? Author Type: Physician Type: Progress Notes Filed: 10/22/2024 10:48 Note Text: Department of Kidney Medicine Medical Specialties [facility] SERVICE DATE: 10/22/2024 SERVICE TIME: 10:27 [...] renal function. [facility]. No longer taking NSAIDs after his bilateral [...] Take 1 tablet by mouth once daily. Wpqqi-2-CHI-EPA-Fish Oil (FISH OIL) 1,000 mg (120 mg-180 mg) cap Take 1 g by mouth once daily. lovastatin (MEVACOR) 20 mg tablet Take 20 mg by mouth daily at bedtime. multivitamin (MULTIPLE VITAMINS) tablet Take 1 tablet by mouth once daily. Saw Dunreith 160 mg capsule Take 160 mg by [...] effort. Lungs karely (more content not included)... [facility] 10-17-2024 Telephone encounter Note Images from the original note were not included. Orders printed and faxed to number provided below. Confirmation received. Pt notified DEVIN Angel Diana, DO [facility] [place] hour ago (2:17 PM) Please fax lab [facility] and let patient know that I have ordered them. (Covering for Dr Salgado) Thanks Cassidy [facility] 10-17-2024 Miscellaneous Notes Images from the original note were not included. Orders printed and faxed to number provided below. Confirmation received. Pt notified DEVIN Angel Diana, DO [facility] [place] hour ago (2:17 PM) Please fax lab orders [place] and let patient know that I have ordered them. (Covering for Dr Salgado) Santo Benjamin Covering for Dr Salgado CKD lab work ordered Cassidy Arita DO October 17, 2024, 2:15 PM ----- Message from RHODA Han sent at 10/17/2024 1:10 PM EST ----- Regarding: Lab orders for upcoming appt w/Dr. Salgado Contact: Patient is requesting labs for upcoming appt on 10/22/24. Labs need to be faxed to [facility] @ [phone]. Call pt when done Danielle Blanchard documented in this encounter [facility] 10-17-2024 Telephone encounter Note Covering for Dr Salgado CKD lab work ordered Cassidy Arita DO October 17, 2024, 2:15 PM [facility] 10-17-2024 Telephone encounter Note ----- Message from RHODA Han sent at 10/17/2024 1:10 PM EST ----- Regarding: Lab orders for upcoming appt w/Dr. Salgado Contact: Patient is requesting labs for upcoming appt on 10/22/24. Labs need to be faxed to [facility] @ [phone]. Call pt when done Danielle [facility] 10-08-2024 History of Present illness Narrative [...] stretch into flexion PROM; tibial extension mobs [facility] Goals: Increase ROM left knee to 0-110* [...] Physician Signature: Date: documented in this encounter [facility] 10-03-2024 History of Present illness Narrative Images from the original note were not included. Time In: 9:55 AM Time Out: 10:40 AM Supervised Time: 40 min Total Time: 45 min Visit Number: Tuan, Medicare, has used $1321.70 toward Medicare cap [...] x 6 weeks documented in this encounter [facility] 10-03-2024 History of Present illness Narrative Images from the original note were not included. HISTORY OF PRESENT ILLNESS: POST OP PT Amina Lim is an 79 y.o. @ male. (EST PT) S/P (L) TKA 08/22/24 (6WKS). XRAYS DONE TODAY, 10/03/24 IN [facility] DOING WELL. CONTINUES TO HAVE SOME DISCOMFORT - TAKING PERCOCET 1/2 Q 6 HRS ; CONTINUES TO ICE. CONTINUES PHYSICAL THERAPY 2x WEEKLY @ [place] - NOTES INCREASING ROM & STRENGTH. SOME [...] requiring urgent evaluation. documented in this encounter [facility] 09-23-2024 History of Present illness Narrative Time [...] x 6 weeks documented in this encounter [facility] 09-16-2024 History of Present illness Narrative Time [...] camping, dogs Employment retired 15 years from [employer] INTERVENTIONS: X ( ) manual therapy X 40/10 minutes therapeutic exercises for ROM and strengthening X ( ) minutes modalities: ice PT Assessment: No change in knee flexion/extension today. Did tolerate all exercise well in PT. Ice at home. Plan: PT 2-3x/weeks x 6 weeks documented in this encounter [facility] 09-11-2024 History of Present illness Narrative Time [...] camping, dogs Employment retired 15 years from [employer] INTERVENTIONS: X 20 minutes of manual therapy to increase ROM X 30 minutes therapeutic exercises for ROM and strengthening X 10 minutes modalities: ice PT Assessment: Therapy Diagnosis: s/p left TKA with weaknessk swelling and pain [facility] Goals: Increase ROM left knee to 0-110* [...] Physician Signature: Date: documented in this encounter [facility] 09-09-2024 History of Present illness Narrative Time [...] camping, dogs Employment retired 15 years from [employer] INTERVENTIONS: X 30 minutes therapeutic exercises for ROM and strengthening X minutes modalities: ice, e-stim prn PT Assessment: Therapy Diagnosis: 2. 5 weeks post op left TKA Functional Limitations: Implementation Services Analyst Goals: Increase ROM left knee to 0-110* [...] Physician Signature: Date: documented in this encounter [facility] 09-05-2024 History of Present illness Narrative Images [...] - STARTING OUTPT THERAPY NEXT WEEK @ [facility]. NOTES INCREASING ROM & STRENGTH - USING [...] left Z96.652 2. Post-operative pain G89.18 HYDROcodone-acetaminophen ([place]) 5-325 MG tablet PLAN: Assessment & Plan [...] requiring urgent evaluation. documented in this encounter [facility] 09-05-2024 Instructions LORELEI Soto - 09/05/2024 10:30 [...] wound pending recheck. documented in this encounter [facility] 08-29-2024 Telephone encounter Note Patient home PT notified us of need for post op pain rx refill. PDMP reviewed. [facility] 08-29-2024 Miscellaneous Notes Patient home PT notified us of need for post op pain rx refill. PDMP reviewed. documented in this encounter [facility] 08-21-2024 Telephone encounter Note Post op pain rx. PDMP reviewed [facility] 08-21-2024 Miscellaneous Notes Post op pain rx. PDMP reviewed documented in this encounter [facility] 08-14-2024 Telephone encounter Note Acknowledged, thank you. [facility] 08-14-2024 Miscellaneous Notes Acknowledged, thank you. Patient left vm to let us know he has been approved through medicare to have his LT TKA done on 08/22 with . documented in this encounter [facility] 08-14-2024 Telephone encounter Note Patient left vm to let us know he has been approved through medicare to have his LT TKA done on 08/22 with . [facility] 08-14-2024 Note XR BONE LENGTH STUDY Bone length evaluation History: Osteoarthritis, limb length and alignment, knee pain Comparison: None Findings: Standing frontal view of the bilateral lower extremities obtained from the iliac crest through the feet for limb length and alignment without marker device. Impression: Severe Arthritis, osteophytes, joint space narrowing Left knee shows pefw-ok-qqcb medial compartment arthritis with varus angulation measuring 4 degrees. Appropriate alignment of the right femoral-tibial angle with 2 degrees valgus and a unremarkable prosthesis of the knee Finalized by Micheal Johnson MD on 08/14/2024 5:[address] [facility] 08-13-2024 History of Present illness Narrative [...] MG tablet Every 24 hours Iron Polysacch [id number]-F23-VE (Poly-Iron 150 Forte) 150-0.025-1 MG capsule 1 [...] Ambulatory referral to Physical Therapy Iron Polysacch [id number]-A82-IO (Poly-Iron 150 Forte) 150-0.025-1 MG capsule Chlorhexidine Gluconate (Hibiclens) 4 % solution 2. Primary osteoarthritis of left knee M17.12 Ambulatory referral to Physical Therapy Iron Polysacch Deeda-O22-AC (Poly-Iron 150 Forte) 150-0.025-1 MG capsule Chlorhexidine [...] Bret fernando/ Dick. documented in this encounter [facility] 08-07-2024 History of Present illness Narrative Images from the original note were not included. HISTORY OF PRESENT ILLNESS: EST PT Amina Lim is an 79 y.o. @ male. (R) KNEE (EST PT) S/P (R) TKA 04/04/24 (17WKS 6DAYS) XRAYS, 05/15/24 IN [facility] NO MDP / PREDNISONE FINISHED THERAPY (10 SESSIONS) @ [facility] NO PAIN MGMT DOING WELL. CONTINUES HEP / RECUMBENT BIKE - NOTES GOOD ROM ; DENIES ANY WEAKNESS. DENIES ANY SWELLING. STATES HE IS VERY PLEASED WITH SURGERY. CONTINUES TO USE VOLTAREN GEL. (L) KNEE (EST PT) RECHECK (L) KNEE ; HERE TO DISCUSS SURGICAL OPTIONS XRAYS, STANDING AP 05/15/24 IN [facility] NO MRI NO MDP / PREDNISONE [...] years old, or requires discharged to a nursing home facility, the patient may require to have additional inpatient hospital stay following the surgery. Physical therapy is contraindicated in this patient's case because of orkp-fu-jyvv articulation of the patient's knee. El Ruiz D.O. documented in this encounter [facility] 06-26-2024 History of Present illness Narrative Images from the original note were not included. HISTORY OF PRESENT ILLNESS: EST PT Amina Lim is an 79 y.o. @ male. (R) KNEE (EST PT ; LAST APPT W/ DICK) S/P (R) TKA 04/04/24 (11WKS 6DAYS) XRAYS, 05/15/24 IN [facility] NO MDP / PREDNISONE FINISHED THERAPY (10 SESSIONS) @ [facility] NO PAIN MGMT CONTINUES TO HAVE SOME DISCOMFORT - RATES 4-5/10 ON PAIN SCALE ; WORSE WITH PROLONGED ACTIVITY. FINISHED PHYSICAL THERAPY @ [facility], CONTINUES HEP - NOTES INCREASING ROM & [...] TO COMPENSATE XRAYS, STANDING AP 05/15/24 IN [facility] NO MRI NO MDP / PREDNISONE [...] El Ruiz D.O. documented in this encounter [facility] 05-24-2023 History of Present illness Narrative POPULATION HEALTH NAVIGATION OUTREACH Action/FYI [place] Support: Called pt to schedule an appt [...] 2023 9:52 AM documented in this encounter [facility] 05-16-2023 Instructions Lyndsay Salgado DO - [...] have your physicians fax over your records [phone] Make an appointment with cardiology for slow [...] be greatly appreciated. documented in this encounter [facility] 05-16-2023 History of Present illness Narrative [facility] NEPHROLOG[facility] HYPERTENSION [facility] SERVICE [...] that he was previously following with a lavender farm worker that went over his labs every visit. States that his renal function was worsening and he was taken off a water pill that improved his renal function. His lavender farm worker stopped seeing patients in the office and [...] Take 1 tablet by mouth once daily. Otlki-4-WWD-EPA-Fish Oil (FISH OIL) 1,000 mg (120 mg-180 mg) cap Take 1 g by mouth once daily. Lecithin 1,200 mg cap Take 1 capsule by mouth once daily. lovastatin (MEVACOR) 20 mg tablet Take 20 mg by mouth daily at bedtime. multivitamin (MULTIPLE VITAMINS) tablet Take 1 tablet by mouth once daily. Saw Dunreith 160 mg capsule Take 160 mg by [...] 16, 2023 TIME: 10:06 AM OFFICE NUMBER: [phone] CC: REFERRING PROVIDER: Narciso Bullock MD PRIMARY CARE PHYSICIAN: Narciso Bullock MD documented in this encounter [facility] 09-06-2022 Evaluation note Encounter Date Diagnosis [...] Dr. Bullock for NSAIDs alternative like Tramadol [facility] Other 12-08-2021 Evaluation note* Encounter Date Diagnosis [...] He did try Tylenol with no effect. 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 9 documented as of this encounter (statuses as of 05/16/2023) [facility] History of Past illness Narrative* Problem Noted Date Diagnosed Date Resolved Date Primary osteoarthritis of left shoulder 12/19/2016 06/25/2019 Prostate cancer 07/05/2016 06/25/2019 Peyronie's disease 07/08/2009 9 documented as of this encounter (statuses as of 06/26/2023) [facility] Diagnosis Chronic kidney disease, unspecified CKD stage- Primary Bradycardia Other specified cardiac dysrhythmias Generalized pain Anemia of renal disease Anemia in chronic kidney disease Primary hypertension Unspecified essential hypertension [facility] noteNo assessment information availableBrown Memorial Hospital Work Phone: Evaluation note* Diagnosis Acute pain of right knee- Primary History of right knee joint replacement Primary osteoarthritis of left knee documented in this encounter [facility] HealthcareEvaluation [facility]* Diagnosis Preop examination- Primary Unspecified pre-operative examination Primary osteoarthritis of left knee Eczema, unspecified type documented in this encounter [facility] HealthcareEvaluation note* Diagnosis Post-operative pain- Primary Other acute postoperative pain documented in this encounter [facility] Healthcare[facility] note* Diagnosis S/P TKR (total knee replacement), left- Primary Post-operative pain Other acute postoperative pain documented in this encounter [facility] HealthcareEvaluation note* Diagnosis Post-operative pain Other acute postoperative pain documented in this encounter [facility]Evaluation note* Diagnosis S/P total knee replacement, left- Primary Acute postoperative pain of left knee documented in this encounter [facility] HealthcareEvaluation note* Diagnosis S/P total knee replacement, left- Primary Acute postoperative pain of left knee documented in this encounter [facility]Evaluation note* Diagnosis S/P total knee replacement, left- Primary Acute postoperative pain of left knee S/P total knee replacement, left- Primary Acute postoperative pain of left knee documented in this encounter [facility] note* Diagnosis S/P total knee replacement, left- Primary Acute postoperative pain of left knee documented in this encounter [facility] HealthcareEvaluation note* Diagnosis S/P TKR (total knee replacement), right- Primary Primary osteoarthritis of left knee documented in this encounter [facility] HealthcareEvaluation note* Diagnosis Acute postoperative pain of left knee- Primary S/P total knee replacement, left documented in this encounter [facility] note* Diagnosis Acute postoperative pain of left knee- Primary S/P total knee replacement, left documented in this encounter [facility] HealthcareEvaluation note* Diagnosis Acute postoperative pain of left knee- Primary S/P total knee replacement, left documented in this encounter [facility] note* Diagnosis S/P TKR (total knee replacement), left- Primary Acute pain of left knee documented in this encounter [facility] HealthcareEvaluation note* Diagnosis Pre-operative clearance- Primary [...] CKD (HCC)- Primary [facility] Diagnosis Acute postoperative pain of left knee- Primary S/P total knee replacement, left documented in this encounter [facility] HealthcareEvaluation note* Diagnosis Pre-operative clearance- Primary [...] specified cardiac dysrhythmias [facility]* Diagnosis S/P TKR (total knee replacement), left- Primary documented in this encounter [facility] HealthcareEvaluation note* Diagnosis Encounter for other preprocedural examination [facility] Encounter for other preprocedural examination documented [facility] SystemHistory general Narrative - Reported* Type Description [...] HIS RIGHT EYE Hospitalization History see above Optyn Other History of Present illness Narrative* Shirlene [...] 2-3x/weeks x 6 weeks documented in this encounterNONJ HealthcareInstructionsNot on filedocumented in this encounterProSt. Elizabeth HospitalReason for referral (narrative)* Diagnostic Procedure Only (Routine) - Pending Review Specialty Diagnoses / Procedures Referred By Ravi avendano Referred To Contact US IMAGING Diagnoses Chronic kidney disease, unspecified CKD stage Procedures US KIDNEY/BLADDER US RETROPERITONEAL REAL TIME W/IMAGE COMPLETE Lyndsay Salgado DO [address] [place] [address] Us Imaging Referral ID Status Reason Start Date Expiration Date Visits Requested Visits Authorized [id number] Pending Review Auto-Generat ed Referral 05/16/2023 06/14/2024 1 1 * Consult, Test, Treat (Routine) - Authorized Specialty Diagnoses / Procedures Referred By Ravi t Referred To Contact Pain Management Diagnoses Generalized pain Procedures CONSULT TO PAIN MGT OFFICE/OUTPATIENT [facility] 60-74 MINUTES Lyndsay Salgado DO [address] [place] [address] Referral ID Status Reason Start Date Expiration Date Visits Requested Visits Authorized [id number] Authorized PCP Requested Referral 05/16/2023 05/15/2024 1 1 * Consult, Test, Treat (Routine) - Authorized Specialty Diagnoses / Procedures Referred By Ravi t Referred To Contact Cardiology Diagnoses Bradycardia Procedures CONSULT TO CARDIOLOGY OFFICE/OUTPATIENT [facility] 60-74 MINUTES Lyndsay Salgado DO [address] [place] [address] Referral ID Status Reason Start Date Expiration Date Visits Requested Visits Authorized [id number] Authorized PCP Requested Referral 05/16/2023 05/15/2024 1 1 [facility] for visit Narrative* Rehabilitation - Outpatient (Routine) - Authorized Specialty Diagnoses / Procedures Referred By Contac t Referred To Contact Physical Therapy Diagnoses S/P total knee replacement, left Procedures SC OFFICE/OUTPATIENT [facility] Queta Tilley, PA [address] [facility] [address] [place] [address] Phone: tel: fax: Seth Ragland, PT [address] [place] [address] Phone: tel: fax: Referral ID Status Reason Start Date Expiration Date Visits Requested Visits Authorized [id number] Authorized Consult and Treat 08/30/2024 02/26/2025 10 10 [facility] HealthcareReason for visit Narrative* Rehabilitation - Outpatient (Routine) - Authorized Specialty Diagnoses / Procedures Referred By Contac t Referred To Contact Physical Therapy Diagnoses S/P total knee replacement, left Procedures SC OFFICE/OUTPATIENT [facility] Queta Tilley, PA [address] [facility] [address] [place] [address] Phone: tel: fax: Seth Ragland, PT [address] [place] [address] Phone: tel: fax: Referral ID Status Reason Start Date Expiration Date Visits Requested Visits Authorized [id number] Authorized Consult and Treat 08/30/2024 10/15/2024 10 10 [facility] HealthcareReason for visit Narrative* Rehabilitation - Outpatient (Routine) - Authorized Specialty Diagnoses / Procedures Referred By Contac t Referred To Contact Physical Therapy Diagnoses Presence of left artificial knee joint Procedures SC MANUAL THERAPY TQS 1/> REGIONS EACH 15 MINUTES Queta Tilley, PA [address] [facility] [address] [place] [address] Phone: tel: fax: Seth Ragland, PT [address] [place] [address] Phone: tel: fax: Referral ID Status Reason Start Date Expiration Date Visits Requested Visits Authorized [id number] Authorized Consult and Treat 10/16/2024 04/14/2025 5 [...] 2020 1:09pm Hospital Course Note HNO ID: [id number] Author: Jae mcgrath (Res) MD Shi Service: Orthopaedic Surgery Author Type: Resident Type: [...] section and content) DATE CREATED AUTHOR 12/10/2018 [facility] DATE CREATED AUTHOR AUTHOR'S ORGANIZ ATION 07/18/2019 [facility] DATE CREATED AUTHOR AUTHOR'S ORGANIZ ATION 07/01/2020 [facility] DATE CREATED AUTHOR AUTHOR'S ORGANIZ ATION 01/23/2021 [facility] DATE CREATED AUTHOR AUTHOR'S ORGANIZ ATION 03/24/2023 [facility] DATE CREATED AUTHOR AUTHOR'S ORGANIZ ATION 03/20/2024 [facility] DATE CREATED AUTHOR AUTHOR'S ORGANIZ ATION 08/15/2024 [facility] DATE CREATED AUTHOR AUTHOR'S ORGANIZ ATION 10/25/2024 [facility] DATE CREATED AUTHOR AUTHOR'S ORGANIZ ATION 11/09/2024 [facility] EPIC DATE CREATED AUTHOR AUTHOR'S ORGANIZ ATION 04/20/2025 [facility] REASON FOR VISIT (unrecogniz ed section [...] or prosecute any alcohol or drug abuse patient.[facility] the event this information is protected by the Federal Confidentiality of Alcohol and Drug Abuse Patient Records regulations: The Federal rules restrict any use of the information to criminally investigate or prosecute any alcohol or drug abuse patient.[facility] the event this information is protected by the Federal Confidentiality of Alcohol and Drug Abuse Patient Records regulations: The Federal rules restrict any use of the information to criminally investigate or prosecute any alcohol or drug abuse patient.[facility] the event this information is protected by the Federal Confidentiality of Alcohol and Drug Abuse Patient Records regulations: The Federal rules restrict any use of the information to criminally investigate or prosecute any alcohol or drug abuse patient.[facility] the event this information is protected by the Federal Confidentiality of Alcohol and Drug Abuse Patient Records regulations: The Federal rules restrict any use of the information to criminally investigate or prosecute any alcohol or drug abuse patient.[facility] Care Teams (unrecognized sec tion and content) Machine Marker Relationship Specialty Start Date End Date Narciso Bullock MD PCP - General 07/06/09 Machine Marker Relationship Specialty Start Date End Date Narciso Bullock MD PCP - General 07/06/09 Machine Marker Relationship Specialty Start Date End Date Narciso Bullock MD PCP - General 07/06/09 Team Status: Active Member Role Status Lisbeth Bullock MD Primary Care Provider Active Team Status: Inactive Member Role Status Dates Narciso Bullock MD Primary Care Provider Active Start: March 18, 2024 End: March 18, 2024 Queta Tilley PA-C Attending Provider Active S tart: March 18, 2024 End: March 18, 2024 Machine Marker Relationship Specialty Start Date End Date Narciso Bullock MD [address] [facility] [place] [address] PCP - General Family Medicine 09/25/23 Machine Marker Relationship Specialty Start Date End Date Narciso Bullock MD [address] [facility] [place] [address] PCP - General Family Medicine 09/25/23 Machine Marker Relationship Specialty Start Date End Date Narciso Bullock MD [address] [facility] [place] [address] PCP - General Family Medicine 09/25/23 Machine Marker Relationship Specialty Start Date End Date Narciso Bullock MD [address] [facility] [place] [address] PCP - General Family Medicine 09/25/23 Machine Marker Relationship Specialty Start Date End Date Narciso Bullock MD [address] [facility] [place] [address] PCP - General Family Medicine 09/25/23 Machine Marker Relationship Specialty Start Date End Date Narciso Bullock MD [address] [facility] [place] [address] PCP - General Family Medicine 09/25/23 Machine Marker Relationship Specialty Start Date End Date Narciso Bullock MD [address] [facility] [place] [address] PCP - General Family Medicine 09/25/23 Machine Marker Relationship Specialty Start Date End Date Narciso Bullock MD [address] [facility] [place] [address] PCP - General Family Medicine 09/25/23 Machine Marker Relationship Specialty Start Date End Date Narciso Bullock MD [address] [facility] [place] [address] PCP - General Family Medicine 09/25/23 Machine Marker Relationship Specialty Start Date End Date Narciso Bullock MD [address] [facility] [place] [address] PCP - General Family Medicine 09/25/23 Machine Marker Relationship Specialty Start Date End Date Narciso Bullock MD [address] [facility] [place] [address] PCP - General Family Medicine 09/25/23 Machine Marker Relationship Specialty Start Date End Date Narciso Bullock MD [address] [facility] [place] [address] PCP - General Family Medicine 09/25/23 Machine Marker Relationship Specialty Start Date End Date Narciso Bullock MD [address] [facility] [place] [address] PCP - General Family Medicine 09/25/23 Machine Marker Relationship Specialty Start Date End Date Narciso Bullock MD [address] [facility] [place] [address] PCP - General Family Medicine 09/25/23 Machine Marker Relationship Specialty Start Date End Date Narciso Bullock MD [address] [facility] [place] [address] PCP - General Family Medicine 09/25/23 Machine Marker Relationship Specialty Start Date End Date Narciso Bullock MD [address] [facility] [place] [address] PCP - General Family Medicine 09/25/23 Machine Marker Relationship Specialty Start Date End Date Narciso Bullock MD [address] [facility], [facility] PCP - General Family Medicine 09/25/23 Machine Marker Relationship Specialty Start Date End Date Narciso Bullock MD [address] [facility] [place] [address] PCP - General Family Medicine 09/25/23 Machine Marker Relationship Specialty Start Date End Date Narciso Bullock MD [address] [facility] [place] [address] PCP - General Family Medicine 09/25/23 Machine Marker Relationship Specialty Start Date End Date Narciso Bullock MD PCP - General 07/06/09 Machine Marker Relationship Specialty Start Date End Date Narciso Bullock MD [address] [facility] [place] [address] PCP - General Family Medicine 09/25/23 Machine Marker Relationship Specialty Start Date End Date Narciso Bullock MD PCP - General 07/06/09 Machine Marker Relationship Specialty Start Date End Date Narciso Bullock MD [address] [facility] [place] [address] PCP - General Family Medicine 09/25/23 Machine Marker Relationship Specialty Start Date End Date Narciso Bullock MD [address] [facility] [place] [address] PCP - General Family Medicine 08/13/24 Machine Marker Relationship Specialty Start Date End Date Narciso Bullock MD [address] [facility] [place] [address] PCP - General Family Medicine 08/13/24 Machine Marker Relationship Specialty Start Date End Date Narciso Bullock MD [address] [facility] [place] [address] PCP - General Family Medicine 08/13/24 Goals [...] BE BASED ON THE PRIMARY CLINICAL RECORDS. [facility]. provides no warranty or guarantee of the accuracy or completeness of information in this document.
[2025-06-20 09:59] LABS: Hematocrit 39.2 % (42.0-54.0); Hemoglobin 13.4 g/dL (14.0-18.0); Immature Granulocytes Abs Auto 0.02 10^3/uL (0.00-0.03); Immature Granulocytes Pct Auto 0.3 % (0.0-0.5); Lymphocytes Absolute Auto 2.8 10^3/uL (1.2-3.8); Mean Corpuscular HGB Conc 34.2 g/dL (29.9-35.2); Mean Corpuscular Hemoglobin 31.3 pg (25.9-34.0); Mean Corpuscular Volume 91.6 fL (80.0-94.0); Platelet Count 194 10^3/uL (150-450); Red Blood Count 4.28 10^6/uL (4.70-6.10); White Blood Count 7.8 10^3/uL (4.0-11.0)
[2025-06-20 10:32] LABS: Alanine Aminotransferase 26 U/L (16-63); Albumin Globulin Ratio 1.1; Albumin Level 3.9 g/dL (3.4-5.0); Alkaline Phosphatase 43 U/L (46-116); Anion Gap 12.9; Aspartate Amino Transferase 18 U/L (15-37); Blood Urea Nitrogen 22.0 mg/dL (7.0-18.0); Calcium 9.2 mg/dL (8.5-10.1); Carbon Dioxide 28.5 mmol/L (21.0-32.0); Chloride 101 mmol/L (98-107); Estimated GFR (African America >60 (>=60 mL/min/1.73m^2); Estimated GFR (Non-African Ame >60 (>=60 mL/min/1.73m^2); Free T3 2.66 pg/mL (2.18-3.98); Globulin 3.4 g/dL; Glucose 105 mg/dL (74-106); Potassium 4.4 mmol/L (3.5-5.1); Sodium 138 mmol/L (136-145); Thyroid Stimulating Hormone 3.038 uIU/mL (0.358-3.740); Total Protein 7.3 g/dL (6.4-8.2)
[2025-06-20 10:50] LABS: Cholesterol 208 mg/dL (<=200); HDL Cholesterol 51 mg/dL (40-60); Triglycerides 113 mg/dL (<=150); VLDL CHOLESTEROL 22.6 mg/dL
== END 2025-06-20 08:22 | disposition home or self-care (01) ==
LOC: LAB 08:22
PROVIDERS: PCP Family Medicine; Visit Provider Family Medicine
DX: G47.33 Obstructive sleep apnea (adult) (pediatric) (principal); N18.30 Chronic kidney disease, stage 3 unspecified; D47.2 Monoclonal gammopathy
CPT/HCPCS: 36415; 80053; 80061; 82306; 83036; 84436; 84443; 84481; 85025; G0103

== ENCOUNTER 2025-07-23 07:41 | Outpatient (OUT) | payer MEDICARE, OTHER, SELFPAY ==
--- OUTSIDE RECORDS SUMMARY | 2025-07-23 07:47 | XMS_ITS | CCD ---
Author Organization [facility] Care Team Providers Care Blue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 Name Role Phone RIZWANATRELL TELLEZ Jarrell Referring [...] Unavailable Narciso Bullock MD Primary Care Provider [phone] MD Narciso Bullock Primary Care Provider [phone] CHRISTINE Tilley Attending Provider [phone] Queta Tilley Attending Unavailable Queta Tilley Admitting Unavailable Narciso Bullock Primary Care Unavailable Narciso Bullock MD Primary Care Provider [phone] QUETA TILLEY Referring Unavailable NARCISO BULLOCK Primary Care Unavailable QUETA TILLEY Attending Unavailable QUETA TILLEY Referring Unavailable NARCISO BULLOCK Primary Care Unavailable Narciso Bullock MD Primary Care Provider [phone] NARCISO BULLOCK Primary Care Unavailable LYNDSAY SALGADO [...] ble TILLEYQUETA Attending Unavailable TILLEYQUETA Referring Unavailable MEDVESSHIRLENE M Attending Unavailable STEPANIC, JR., EL Matos [...] Unavailable Narciso Bullock MD Primary Care Provider [phone] PHOENIX URIBE Attending Unavailable PHOENIX URIBE Attending Unavailable Allergies Allergy Classification Reported Allergen(s) Allergy Type Date of Onset Reaction(s) Facility (20 sources) Acetaminophen / oxyCODONE; Translations: [OXYCODONE-ACETAM INOPHEN] Drug Allergy 4 Other [facility] (20 sources) Other; Translations: [OTHER] Propensity to adverse reactions 4 Other [facility] Medications Current Medications Medication Drug Class(es) Dates Sig (Normalized) Sig (Original) acetaminophen 325 mg / HYDROcodone bitartrate 5 mg oral tablet (9 sources) Opioid Agonist Start: 09-17-2024 End: 09-22-2024 take 1 tablet by mouth every six hours for pain HYDROcodone-aceta minophen ([place]) 5-325 MG tablet Indications: S/P total knee replacement, left Take 1 tablet by mouth every 6 (six) hours if needed for severe pain for up to 5 days 20 tablet 09/17/2024 09/22/2024 Active Start: 08-29-2024 End: 09-10-2024 take 1 tablet by mouth every six hours for pain HYDROcodone-acetaminophen ([place]) 5-325 MG tablet Indications: Post-operative pain Take 1 tablet by mouth every 6 (six) hours if needed for severe pain for up to 5 days 20 tablet 09/05/2024 09/10/2024 Active Start: 08-21-2024 End: 08-26-2024 take 1 tablet by mouth every six hours for pain HYDROcodone-acetaminophen ([place]) 5-325 MG tablet Indications: Post-operative pain Take 1 tablet by mouth every 6 (six) hours if needed for severe pain for up to 5 days 20 tablet 08/21/2024 08/26/2024 Active Acidophilus Extra Strength - (2 sources) Acidophilus Extr a Strength - as directed Orally Active Brewster 500 MG (2 sources) Brewster 500 MG a s directed Orally Active [...] tablet by mouth once daily Iron Polysacch Qoxzi-A39-VM (Poly-Iron 150 Forte) 150-0.025-1 MG capsule Indications: [...] sources) Angiotensin 2 Receptor Igor Start: 12-08-19 24 irbesartan (Avapro) 150 MG tablet 1 (one) time each day at the same time 12/08/2023 Active Multivitamins (2 sources) Multivitamins as directed Orally Active quercetin 50 mg oral tablet (1 source) take 1 tablet by mouth once daily Quercetin 50 MG 1 tablet Orally Once a day Active [place] 540 mg (2 sources) take 1 capsule by mouth once daily [place] 540 mg 1 Capsule Orally Daily Active [...] 10/22/2024 Discontinued take 3 tablets by mo ut three times weekly Ascorbic Acid (VITAMIN C) [...] on above: Take 1 capsule by mo [facility] twice daily. Garlic preparation (1 source) [...] on above: Take 1 capsule by mo [facility] once daily. losartan potassium 25 mg oral tablet (8 sources) Angiotensin 2 Receptor Igro Start: 3 End: 5 take 3 tablets [...] prior to and including day of surgery. Bnuaa-4-KOY-EPA-Fi sh Oil (FISH OIL) 1,000 mg (120 mg-180 mg) cap (5 sources) End: take 1 capsule by mouth once daily Dmhod-0-TTT-EPA-Fish Oil (FISH OIL) 1,000 mg (120 mg-180 mg) cap Take 1 g by mouth once daily. 10/22/2024 Discontinued take 1 capsule by mouth once renee ly Orfmh-2-KLG-EPA-Fish Oil (FISH OIL) 1,000 mg (120 mg-180 mg) cap Take 1 g by mouth once daily. Active take 1 capsule by mouth once renee ly Nlyrn-2-RQV-EPA-Fish Oil (FISH OIL) 1,000 mg (120 mg-180 [...] 50 mg by mouth once daily. [place] 160 mg capsule (5 sources) End: 10-22-2024 take 1 capsule by mouth three times daily [place] 160 mg capsule Take 160 mg by mouth three times daily. 10/22/2024 Discontinued take 1 capsule by mouth three ti mes daily [place] 160 mg capsule Take 160 mg by mouth three times daily. Active take 1 capsule by mouth three ti mes daily [place] 160 mg capsule Take 160 mg by [...] anemia, unspecified] Episodic Disorders of lipid metabolism (11 sources) Pure hypercholesterolemia, unspecified; Translations: [Hyperlipidemia, unspecified] Onset: 7 07-16-2019 Chronic Essential hypertension (9 sources) Essential hypertension; Translations: [Essential (primary) hypertension] Onset: 8 05-16-2023 Chronic Gastrointestinal hemorrhage (2 sources) Hematochezia; Translations: [Melena] Episodic Heart valve disorders (2 sources) Nonrheumatic aortic (valve) stenosis; Translations: [Nonrheumatic aortic (valve) stenosis] Onset: 5 Chronic Hypertension with complications and secondary hypertension (4 [...] 09-02-2022 Episodic Other aftercare (1 source) Other alf (current) drug therapy; Translations: [OTH DETENTION CURRENT DRUG THERAPY] Onset: 09-02-2022 Episodic Other [...] Value Interpretation Reference Range Facility Office Visiton 06-27-2025 Follow-up visit [id number] Amina Lim 1945 M Date Provider Department Center 06/27/2025 [id number] URIBE Family History Problem Relation Age of Onset Other Father Lupus Father Family Status - Relation Status Age at Mother Father Level of Service:37706 ND OFFICE/OUTPATIENT ESTABLISHED MOD MDM 30 MIN Reason for Visit and Comments: Hypertension [453848] Hyperlipidemia [182] Bradycardia [527124] SVT [Other] Follow-up [322238] - 6 months with labs and Echo Normal [facility] 36on 04-17-2025 36 Regarding echo resul t from 03/31/2025: MD Lucia Chun MA Inform patient that his echo showed moderate aortic valve stenosis. Repeat echo in about 6 months to follow-up on progression of this. Patient informed. Told him we could order the echo when he sees Dr. Uribe next month. [facility] 36on 11-28-2024 36 Regarding lab result s from 10/29/2024: MD Lucia Chun MA His LDL cholesterol is mildly elevated 112. The goal to be 100 or below. Advised patient to follow low-fat diet and recheck lipids in 3 months. Spoke with patient and he will have repeat labs prior to his next apt in April 2025. Order mailed to him. [facility] Office Visiton 10-28-2024 Follow-up visit [id number] Amina Lim 1945 M Date Provider Department Center 10/28/2024 [id number]-VDDUXWPHOENIX URIBE LEIDY [facility] Family History Problem Relation Age of Onset Other Father Lupus Father Family Status - Relation Status Age at Father Level of Service:65923 ND OFFICE/OUTPATIENT ESTABLISHED MOD [facility] 30 MIN Reason for Visit and Comments: Hypertension [181665] - Had labs 2 weeks ago. Heart Murmur [124] - Denies chest pain, SOB, palpitations, and lightheadedness/syncope. SVT [Other] Hyperlipidemia [182] - He took himself off lovastatin 3-4 months ago. No lipid since Sep 2023. Denies side effects from statin. [facility] CNOVon 10-22-2024 CNOV Office Visit (HORACIO ) -- AMINA LIM ([id number]) 1945 M Date Time Provider Department 10/22/24 10:20 AM LYNDSAY SALGADO During your visit today, we recorded the following information about you: Pulse Blood pressure Weight Height 64/minute 130/69 92.5 kg 1.791 m Lyndsay Salgado DO 10/22/2024 10:48 AM Signed Department of Kidney Medicine [facility] [place] [facility] SERVICE DATE: 10/22/2024 SERVICE TIME: 10:27 [...] renal function. Following with cardiology at the [facility]. No longer taking NSAIDs after his bilateral [...] Take 1 tablet by mouth once daily. Cxavy-0-DTY-EPA-Fish Oil (FISH OIL) 1,000 mg (120 mg-180 mg) cap Take 1 g by mouth once daily. lovastatin (MEVACOR) 20 mg tablet Take 20 mg by mouth daily at bedtime. multivitamin (MULTIPLE VITAMINS) tablet Take 1 tablet by mouth once daily. [place] 160 mg capsule Take 160 mg by [...] Throat: Heari (more content not included)... Normal [facility] CNPNon 10-17-2024 CNPN Telephone (MIDMAV) -- AMINA LIM ([id number]) 1945 M Date Time Provider Department 10/17/24 CASSIDY ARITA [facility] During your visit today, we recorded the following information about you: Cassidy Arita DO 10/17/2024 2:11 PM Signed ----- Message from RHODA Han sent at 10/17/2024 1:10 PM EST ----- Regarding: Lab orders for upcoming appt w/Dr. Salgado Contact: Patient is requesting labs for upcoming appt on 10/22/24. Labs need to be faxed to [facility] @ [phone]. Call pt when done ThanksDanielle Diana, DO 10/17/2024 2:17 PM Signed Covering for Dr Salgado CKD lab work ordered Cassidy Arita DO October 17, 2024, 2:15 PM Porfirio Hamilton MA 10/17/2024 5:05 PM Addendum Orders printed and faxed to number provided below. Confirmation received. Pt notified DEVIN Angel Diana, DO [facility] hour ago (2:17 PM) Please fax [facility] and let patient know that I have [...] 10/21/2024 8:21 AM Signed Fax received from [facility] lab in regards to pt PTH [...] Order(s):ALBUMIN/CREATININ E RATIO, URINE [SQUACR] Order #: [id number] FUTURE PROTEIN / CREATININE RATIO [SQPRATIO] Order #: [id number] FUTURE URINALYSIS WITH MICROSCOPIC, REFLEX CULTURE [SQUACII] Order #: [id number] FUTURE RENAL FUNCTION PANEL [SQRFP] Order #: [id number] FUTURE VITAMIN D 25 HYDROXY [SQVITD] Order #: [id number] FUTURE PTH INTACT [SQPTHI] Order #: [id number] FUTURE COMPLETE BLOOD COUNT [SQCBC] Order #: [id number] FUTURE Prescriptions as of 10/21/2024 - losartan [...] 1 tablet by mouth once daily. - Ionrf-1-WKN-EPA-Fish Oil (FISH OIL) 1,000 mg (120 mg-180 mg) cap Take 1 g by mouth once daily. - lovastatin (MEVACOR) 20 mg tablet Take 20 mg by mouth daily at bedtime. - multivitamin (MULTIPLE VITAMINS) tablet Take 1 tablet by mouth once daily. - [place] 160 mg capsule Take 160 mg by [...] Status:Closed by PORFIRIO HAMILTON on 10/17/24 Normal [facility] [place] XR Knee - left [...] dislocation. Impression: Unremarkable left total knee arthroplasty [facility] Radiology Study observation (narrative) [facility] APTTon 08-13-2024 aPTT Coag (PPP) [Time] 35 s [facility] Comment on above: NEW REFERENCE RANGE aPTT Coag (Bld) [Time] 35 s [facility] Comment on above: NEW REFERENCE RANGE PERFORMED AT [address] [address] CBC AND AUTO DIFFon 08-13-20 ABSOLUTE BASOPHIL 0.1 X10E9/L Normal 0.0-0.2 [facility] Comment on above: Performed By: #### 1 4979-9 #### [facility] ([id number]) [address] [place] [address] 15963 #### CBCA, PINR, CMP #### [facility] ([id number]) [address], [address] [place] [address] ABSOLUTE NEUTROPHIL 5.3 X10E9/L Normal 1.5-6.6 [facility] Comment on above: Performed By: #### 1 4979-9 #### [facility] ([id number]) [address] [place] [address] 34528 #### CBCA, PINR, CMP #### [facility] ([id number]) [address], [address] [place] [address] Basophils/100 WBC (Bld) 0.8 % Normal [facility] Comment on above: Performed By: #### 1 4979-9 #### [facility] ([id number]) [address] [place] [address] 09651 #### CBCA, PINR, CMP #### [facility] ([id number]) [address], [address] [place] [address] Eosinophils (Bld) [#/Vol] 0.2 10*3/uL Normal 0.0-0.4 [facility] Comment on above: Performed By: #### 1 4979-9 #### [facility] ([id number]) [address] [place] [address] 09510 #### CBCA, PINR, CMP #### [facility] ([id number]) [address] [place] [address], [facility] [address] [place] [address] Eosinophils/100 WBC (Bld) 2.1 % Normal [facility] Comment on above: Performed By: #### 1 4979-9 #### [facility] ([id number]) [address] [place] [address] 83161 #### CBCA, PINR, CMP #### [facility] ([id number]) [address], [address] [place] [address] Erythrocyte distribution width (RBC) [Ratio] 13.9 % Normal 11.5-15.0 [facility] Comment on above: Performed By: #### 1 4979-9 #### [facility] ([id number]) [address] [place] [address] 63871 #### CBCA, PINR, CMP #### [facility] ([id number]) [address], [address] [place] [address] Hematocrit (Bld) [Volume fraction] 39.0 % Normal 39-49 [facility] Comment on above: Performed By: #### 1 4979-9 #### [facility] ([id number]) [address] [place] [address] 62661 #### CBCA, PINR, CMP #### [facility] ([id number]) [address] [place] [address] Hemoglobin (Bld) [Mass/Vol] 13.3 g/dL Normal 13.0-17.0 [facility] Comment on above: Performed By: #### 1 4979-9 #### [facility] ([id number]) [address] [place] [address] 60260 #### CBCA, PINR, CMP #### [facility] ([id number]) [address] [place] [address] Lymphocytes (Bld) [#/Vol] 1.8 10*3/uL Normal 1.0-3.5 [facility] Comment on above: Performed By: #### 1 4979-9 #### [facility] ([id number]) [address] [place] [address] 67377 #### CBCA, PINR, CMP #### [facility] ([id number]) [address], [address] [place] [address] Lymphocytes/100 WBC (Bld) 22.6 % Normal [facility] Comment on above: Performed By: #### 1 4979-9 #### [facility] ([id number]) [address] [place] [address] 68816 #### CBCA, PINR, CMP #### [facility] ([id number]) [address] [place] [address] MCH (RBC) [Entitic mass] 31.5 pg Normal 27-34 [facility] Comment on above: Performed By: #### 1 4979-9 #### [facility] ([id number]) [address] [place] [address] 18399 #### CBCA, PINR, CMP #### [facility] ([id number]) [address], [address] [place] [address] MCHC (RBC) [Mass/Vol] 34.0 g/dL Normal 32-36 [facility] Comment on above: Performed By: #### 1 4979-9 #### [facility] ([id number]) [address] [place] [address] 21279 #### CBCA, PINR, CMP #### [facility] ([id number]) [address], [address] [place] [address] MCV (RBC) [Entitic vol] 93 fL Normal 80-100 [facility] Comment on above: Performed By: #### 1 4979-9 #### [facility] ([id number]) [address] [place] [address] 86571 #### CBCA, PINR, CMP #### [facility] ([id number]) [address], [address] [place] [address] Monocytes (Bld) [#/Vol] 0.7 10*3/uL Normal 0-0.9 [facility] Comment on above: Performed By: #### 1 4979-9 #### [facility] ([id number]) [address] [place] [address] 98327 #### CBCA, PINR, CMP #### [facility] ([id number]) [address] [place] [address] Monocytes/100 WBC (Bld) 8.2 % Normal [facility] Comment on above: Performed By: #### 1 4979-9 #### [facility] ([id number]) [address] [place] [address] 15530 #### CBCA, PINR, CMP #### [facility] ([id number]) [address] [place] [address] Neutrophils/100 WBC (Bld) 66.3 % Normal [facility] Comment on above: Performed By: #### 1 4979-9 #### [facility] ([id number]) [address] [place] [address] 22922 #### CBCA, PINR, CMP #### [facility] ([id number]) [address] [place] [address] Platelet mean volume (Bld) [Entitic vol] 8.2 fL Normal 7-12 [facility] Comment on above: Performed By: #### 1 4979-9 #### [facility] ([id number]) [address] [place] [address] 91947 #### CBCA, PINR, CMP #### [facility] ([id number]) [address] [place] [address] Platelets (Bld) [#/Vol] 227 10*3/uL Normal 150-450 [facility] Comment on above: Performed By: #### 1 4979-9 #### [facility] ([id number]) [address] [place] [address] 99195 #### CBCA, PINR, CMP #### [facility] ([id number]) [address] [place] [address] RBC COUNT 4.22 X10E12/L Normal 4.10-5.70 [facility] Comment on above: Performed By: #### 1 4979-9 #### [facility] ([id number]) [address] [place] [address] 21360 #### CBCA, PINR, CMP #### [facility] ([id number]) [address] [place] [address] WBC (Bld) [#/Vol] 8.0 10*3/uL Normal 4.0-11.0 [facility] Comment on above: Performed By: #### 1 4979-9 #### [facility] ([id number]) [address] [facility] [place] [address] #### CBCA, PINR, CMP #### [facility] ([id number]) [address] [place] [address] CBC auto differentialon 07-17 Basophils (Bld) [#/Vol] [...] Health [facility] RBC (Bld) [#/Vol] 4.22 10*6/uL [facility] WBC corrected for nucl RBC Auto (Bld) [#/Vol] 8 [facility] COMPREHENSIVE METABOLIC PANE Juan Daniel 08-13-2024 Albumin [Mass/Vol] 4.1 g/dL Normal 3.2-5.3 [facility] Comment on above: Performed By: #### 1 4979-9 #### [facility] ([id number]) [address] [place] [address] 56434 #### CBCA, PINR, CMP #### [facility] ([id number]) [address] [place] [address] ALP [Catalytic activity/Vol] 40 U/L Normal 39-130 [facility] Comment on above: Performed By: #### 1 4979-9 #### [facility] ([id number]) [address] [place] [address] 03285 #### CBCA, PINR, CMP #### [facility] ([id number]) [address] [place] [address] ALT [Catalytic activity/Vol] 21 U/L Normal 0-40 [facility] Comment on above: Performed By: #### 1 4979-9 #### [facility] ([id number]) [address] [place] [address] 92117 #### CBCA, PINR, CMP #### [facility] ([id number]) [address] [place] [address] Anion gap [Moles/Vol] 7 mmol/L Normal 5-15 [facility] Comment on above: Performed By: #### 1 4979-9 #### [facility] ([id number]) [address] [place] [address] 12089 #### CBCA, PINR, CMP #### [facility] ([id number]) [address] [place] [address] AST [Catalytic activity/Vol] 17 U/L Normal 0-41 [facility] Comment on above: Performed By: #### 1 4979-9 #### [facility] ([id number]) [address] [place] [address] 99338 #### CBCA, PINR, CMP #### [facility] ([id number]) [address] [place] [address] Bilirubin [Mass/Vol] 0.4 mg/dL Normal 0.3-1.2 [facility] Comment on above: Performed By: #### 1 4979-9 #### [facility] ([id number]) [address] [place] [address] 01617 #### CBCA, PINR, CMP #### [facility] ([id number]) [address] [place] [address] Calcium [Mass/Vol] 9.1 mg/dL Normal 8.5-10.5 [facility] Comment on above: Performed By: #### 1 4979-9 #### [facility] ([id number]) [address] [place] [address] 38884 #### CBCA, PINR, CMP #### [facility] ([id number]) [address] [place] [address] Chloride [Moles/Vol] 100 mmol/L Normal 98-109 [facility] Comment on above: Performed By: #### 1 4979-9 #### [facility] ([id number]) [address] [place] [address] 29417 #### CBCA, PINR, CMP #### [facility] ([id number]) [address] [place] [address] CO2 [Moles/Vol] 27 mmol/L Normal 22-32 [facility] Comment on above: Performed By: #### 1 4979-9 #### [facility] ([id number]) [address] [place] [address] 66097 #### CBCA, PINR, CMP #### [facility] ([id number]) [address] [place] [address] Creatinine [Mass/Vol] 1.21 mg/dL Normal 0.60-1.30 [facility] Comment on above: Result Comment: METH OD TRACEABLE TO IDMS STANDARD Performed By: #### 1 4979-9 #### [facility] ([id number]) [address] [place] [address] 05133 #### CBCA, PINR, CMP #### [facility] ([id number]) [address] [place] [address] GFR/1.73 sq M.predicted among non-blacks MDRD (S/P/Bld) [Vol rate/Area] 61 mL/min/{1.73_m2} Normal >59 [facility] Comment on above: Result Comment: Reported eGFR is based on the CKD-EPI 2021 equation that does not use a race coefficient. Performed By: #### 1 4979-9 #### [facility] ([id number]) [address] [place] [address] 40305 #### CBCA, PINR, CMP #### [facility] ([id number]) [address] [place] [address] Glucose [Mass/Vol] 87 mg/dL Normal 65-99 [facility] Comment on above: Performed By: #### 1 4979-9 #### [facility] ([id number]) [address] [place] [address] 15925 #### CBCA, PINR, CMP #### [facility] ([id number]) [address] [place] [address] Potassium [Moles/Vol] 4.2 mmol/L Normal 3.5-5.0 [facility] Comment on above: Performed By: #### 1 4979-9 #### [facility] ([id number]) [address] [place] [address] 38416 #### CBCA, PINR, CMP #### [facility] ([id number]) [address] [place] [address] Protein [Mass/Vol] 6.6 g/dL Normal 6.0-8.0 [facility] Comment on above: Performed By: #### 1 4979-9 #### [facility] ([id number]) [address] [place] [address] 38650 #### CBCA, PINR, CMP #### [facility] ([id number]) [address] [place] [address] Sodium [Moles/Vol] 134 mmol/L Normal 134-146 [facility] Comment on above: Performed By: #### 1 4979-9 #### [facility] ([id number]) [address] [place] [address] 48371 #### CBCA, PINR, CMP #### [facility] ([id number]) [address] [place] [address] Urea nitrogen [Mass/Vol] 29 mg/dL High 5-27 [facility] Comment on above: Performed By: #### 1 4979-9 #### [facility] ([id number]) [address] [place] [address] 48811 #### CBCA, PINR, CMP #### [facility] ([id number]) [address] [place] [address] Comprehensive metabolic pane juan daniel 08-13-2024 Albumin [Mass/Vol] 4.1 g/dL 3.2 - 5.3 g/dL [facility] ALP [Catalytic activity/Vol] 40 U/L 39 - 130 U/L [facility] ALT No additional P-5'-P [Catalytic activity/Vol] 21 U/L 0 - 40 U/L [facility] Anion gap [Moles/Vol] 7 mmol/L 5 - 15 mmol/L [facility] AST [Catalytic activity/Vol] 17 U/L 0 - 41 U/L [facility] Bilirubin [Mass/Vol] 0.4 mg/dL 0.3 - 1 .2 mg/dL [facility] Calcium [Mass/Vol] 9.1 mg/dL 8.5 - 10. 5 mg/dL [facility] Chloride [Moles/Vol] 100 mmol/L 98 - 10 9 mmol/L [facility] CO2 [Moles/Vol] 27 mmol/L 22 - 32 mmol/L [facility] Creatinine [Mass/Vol] 1.21 mg/dL 0.60 - 1.30 mg/dL [facility] Comment on above: METHOD TRACEABLE TO IDMT STANDARD eGFR (CKD-EPI)non-race dependent 61 - PINF [facility] Comment on above: Reported eGFR is based on the CKD-EPI 2020 equation that does not use a race coefficient. Glucose [Mass/Vol] 87 mg/dL 65 - 99 mg/dL [facility] Interpretation and review of laboratory results Abnormal [facility] Potassium [Moles/Vol] 4.2 mmol/L 3.5 - 5.0 mmol/L [facility] Protein [Mass/Vol] 6.6 g/dL 6.0 - 8.0 g/dL [facility] Sodium [Moles/Vol] 134 mmol/L 134 - 146 mmol/L [facility] Urea nitrogen [Mass/Vol] 29 mg/dL High 5 - 27 mg/dL [facility] PROTIME AND INRon 08-13-2024 INR Coag (PPP) [Relative time] 1.0 {INR} Normal 0.8-1.1 [facility] Comment on above: Performed By: #### 1 4979-9 #### [facility] ([id number]) [address] [place] [id number] #### CBCA, PINR, CMP #### [facility] ([id number]) [address] [place] [address] PT Coag (PPP) [Time] 11.1 s Normal 9.8-13.2 [facility] Comment on above: Performed By: #### 1 4979-9 #### [facility] ([id number]) [address] [place] [id number] #### CBCA, PINR, CMP #### [facility] ([id number]) [address], [address] [place] [address] Protime & INRon 08-13-2024 INR Coag (PPP) [Relative time] 1 {INR} [facility] PT Coag (PPP) [Time] 11.1 s [facility] URINALYSISon 08-13-2024 Bilirubin Ql (U) Negative Normal NEG [facility] Comment on above: Performed By: #### U A #### [facility] ([id number]) [address], [address] [place] [address] BLOOD/HGB Negative Normal NEG [facility] Comment on above: Performed By: #### U A #### [facility] ([id number]) [address] [place] [address] Color (U) YELLOW Normal YELLOW [facility] Comment on above: Performed By: #### U A #### [facility] ([id number]) [address] [place] [address] Glucose Ql (U) Negative Normal NEG [facility] Comment on above: Performed By: #### U A #### [facility] ([id number]) [address] [place] [address] Ketones Ql (U) Negative Normal NEG [facility] Comment on above: Performed By: #### U A #### [facility] ([id number]) [address], [address] [place] [address] Leukocyte esterase Test strip Ql (U) Negative Normal NEG [facility] Comment on above: Performed By: #### U A #### [facility] ([id number]) [address] [place] [address] MUCOUS PRESENT Abnormal NONE [facility] Comment on above: Performed By: #### U A #### [facility] ([id number]) [address], [address] [place] [address] Nitrite Ql (U) Negative Normal NEG [facility] Comment on above: Performed By: #### U A #### [facility] ([id number]) [address], [address] [place] [address] pH (U) 6.0 [pH] Normal 5.0-8.5 [facility] Comment on above: Performed By: #### U A #### [facility] ([id number]) [address] [place] [address] Protein Ql (U) Trace Abnormal NEG [facility] Comment on above: Performed By: #### U A #### [facility] ([id number]) [address], [address] [place] [address] R.B.CELLS <1 Normal 0-5 [facility] Comment on above: Performed By: #### U A #### [facility] ([id number]) [address], [address] [place] [address] Specific gravity (U) [Rel density] 1.028 Normal 1.003-1.03 5 [facility] Comment on above: Performed By: #### U A #### [facility] ([id number]) [address], [address] [place] [address] TURBIDITY CLEAR Normal CLEAR [facility] Comment on above: Performed By: #### U A #### [facility] ([id number]) [address], [facility] [address] [place] [address] Urobilinogen (U) [Mass/Vol] mg/dL Normal <1.1 [facility] Comment on above: Performed By: #### U A #### [facility] ([id number]) [address], [facility] [address] [place] [address] W.B.CELLS 1 /hpf Normal 0-5 [facility] Comment on above: Performed By: #### U A #### [facility] ([id number]) [address], [address] [address] URINE CULTUREon 08-13-2024 Bacteria identified Cx Nom (U) CULTURE RESULTS <10,000 ORGANISMS/ML NORMAL URO GENITAL PAM Normal [facility] Comment on above: Performed By: #### 6 30-4 #### [facility] ([id number]) [address] [address] aPTT Coag (Bld) [Time]on [facility] aPTT Coag (PPP) [Time]on [facility] aPTT Coag (Bld) [Time] 35 s Normal 26-37 Pr [facility] Comment on above: Result Comment: NEW REFERENCE RANGE Performed By: #### 1 4979-9 #### [facility] ([id number]) [address] [place] [address], [place] [address] #### CBCA, PINR, CMP #### [facility] ([id number]) [address] [address] [place] [address] Activated partial thrombopla stin time (aPTT) in platelet poor plasma by coagulation aOrdered By: Queta Tilley on 03-18-2024 aPTT Coag (PPP) [Time] 33.7 s 25.1-36.5 [facility] Comment on above: A hematocrit value g reater than 55% may lead to inaccurate results in coagulation testing. Patients having hematocrit values >55% require a special collection tube for coagulation studies. Please contact the laboratory at [phone] for redraw instructions. Alanine aminotransferase [En zymatic activity/volume] in Serum or PlasmaOrdered By: Queta Tilley on 03-18-2024 ALT [Catalytic activity/Vol] 22 U/L Normal 7-52 [facility] Comment on above: Performed By: #### C MP #### [address] [address] [facility] Albumin [Mass/volume] in Ser um or Plasma by Bromocresol green (BCG) dye binding methoOrdered By: Queta Tilley on 03-18-2024 Albumin BCG dye [Mass/Vol] 4.6 g/dL 3.5-5.7 [facility] Alkaline phosphatase [Enzyma tic activity/volume] in Serum or PlasmaOrdered By: Queta Tilley on 03-18-2024 ALP [Catalytic activity/Vol] 37 U/L Normal 34-104 [facility] Comment on above: Result Comment: PERF ORMED BY: [address] [address] PATHOLOGIST AMMONIA NITRATE OPERATOR HUGO AVALOS M.D. Performed By: #### C MP #### [address] [address] [facility] Aspartate aminotransferase [ Enzymatic activity/volume] in Serum or PlasmaOrdered By: Queta Tilley on 03-18-2024 AST [Catalytic activity/Vol] 16 U/L Normal 13-39 [facility] Comment on above: Performed By: #### C MP #### [address] [address] Automated basophil %Ordered By: Queta Tilley on 03-18-2024 Basophils/100 WBC (Bld) 0.6 % Normal . [facility] Comment on above: Performed By: #### C BC #### [address] Automated basophil countOrde red By: Quetapippa Tilley on 03-18-2024 Basophils (Bld) [#/Vol] 0.1 10*3/uL Normal 0.0-0.2 [facility] Comment on above: Result Comment: PERF ORMED BY: [place] [address] PATHOLOGIST AMMONIA NITRATE OPERATOR HUGO AVALOS M.D. Performed By: #### C BC #### [address] Automated blood monocyte cou ntOrdered By: Queta Tilley on 03-18-2024 Monocytes (Bld) [#/Vol] 0.8 10*3/uL Normal 0.0-0.8 [facility] Comment on above: Performed By: #### C BC #### [address] Automated eosinophil %Ordere d By: Queta Tilley on 03-18-2024 Eosinophils/100 WBC (Bld) 0.8 % Normal . [facility] Comment on above: Performed By: #### C BC #### [address] Automated eosinophil countOr dered By: Queta Tilley on 03-18-2024 Eosinophils (Bld) [#/Vol] 0.1 10*3/uL Normal 0.0-0.45 [facility] Comment on above: Performed By: #### C BC #### [address] Automated monocyte %Ordered By: Queta Tilley on 03-18-2024 Monocytes/100 WBC (Bld) 8.0 % Normal . [facility] Comment on above: Performed By: #### C BC #### [address] Automated neutrophil %Ordere d By: Queta Tilley on 03-18-2024 Neutrophils/100 WBC (Bld) 64.7 % Normal . [facility] Comment on above: Performed By: #### C BC #### [address] Bilirubin Test strip Ql (U)O rdered By: Queta Tilley on 03-18-2024 Bilirubin Ql (U) Negative Negative [facility] Bilirubin.total [Mass/volume ] in Serum or PlasmaOrdered By: Queta Jarek on 03-18-2024 Bilirubin [Mass/Vol] 0.5 mg/dL Normal 0.3-1.0 [facility] Comment on above: Performed By: #### C MP #### [address] Calcium [Mass/volume] in Ser um or PlasmaOrdered By: Queta Jarek on 03-18-2024 Calcium [Mass/Vol] 9.7 mg/dL Normal 8.6-10.3 [facility] Comment on above: Performed By: #### C MP #### [address] Carbon dioxide, total [Moles /volume] in Serum or PlasmaOrdered By: Queta Jarek on 03-18-2024 CO2 [Moles/Vol] 27.0 mmol/L Normal 21.0-31.0 [facility] Comment on above: Performed By: #### C MP #### [address] Chloride [Moles/volume] in S hafsa or PlasmaOrdered By: Quetapippa Tilley on 03-18-2024 Chloride [Moles/Vol] 97 mmol/L Low 98-107 [facility] Comment on above: Performed By: #### C MP #### [address] Color of Urine by AutoOrdere d By: Queta Jarek on 03-18-2024 Color (U) Yellow Normal Yellow [facility] Comment on above: Order Comment: Name Collection Type:: Clean-Voided Midstream Performed By: #### U A #### [address] Complete Blood Count Auto Di ffon 03-18-2024 Mean Corpuscular HGB Conc 33.6 g/dL Normal 32.5-35.6 [facility] Comment on above: Performed By: #### C BC #### [address] NRBC% 0.4 /100{WBC} Normal 0-0.5 [facility] Comment on above: Performed By: #### C BC #### [address] Comprehensive Metabolic Pane juan daniel 03-18-2024 Albumin [Mass/Vol] 4.6 g/dL Normal 3.5-5.7 [facility] Comment on above: Performed By: #### C MP #### [address] GFR/1.73 sq M.predicted MDRD (S/P/Bld) [Vol rate/Area] mL/min/{1.73_m2} Normal [facility] Comment on above: Performed By: #### C MP #### [address] Creatinine [Mass/volume] in Serum or PlasmaOrdered By: Queta Tilley on 03-18-2024 Creatinine [Mass/Vol] 1.19 mg/dL Normal 0.70-1.30 [facility] Comment on above: Performed By: #### C MP #### [address] ECG 12 lead ECGon 03-18-2024 ECG 12 lead ECG [facility] [address] [place] [address] Electrocardiograph Report Signed Patient: Amina Lim MR#: [id number] 4 : 1945 Acct:[id number] Age/Sex: 78 / M ADM Date: 03/18/24 Loc: Room: Type: [facility] Attending Dr: Queta Tilley PA-C Ordering [...] Hammonds MD 0 03/18/24 1508 Normal [facility] Erythrocyte distribution wid th [Ratio] by Automated countOrdered By: Queta Tilley on 03-18-2024 Erythrocyte distribution width (RBC) [Ratio] 14.1 % Normal 12.0-14.8 [facility] Comment on above: Performed By: #### C BC #### [address] Erythrocytes [#/volume] in B lood by Automated countOrdered By: Queta Tilley on 03-18-2024 RBC (Bld) [#/Vol] 4.42 10*6/uL Normal 3.90-5.60 [facility] Comment on above: Performed By: #### C BC #### [address] Glucose [Mass/volume] in Ser um or PlasmaOrdered By: Queta Tilley on 03-18-2024 Glucose [Mass/Vol] 93 mg/dL Normal 70-100 [facility] Comment on above: ADA recommended refe rence rangeRandom Glucose Reference Range is dependent on time and content of last meal. Glucose of more than 200 mg/dL in a nonstressed, ambulatory subject supports the diagnosis of Diabetes Mellitus. Result Comment: [place] om Glucose Reference Range is dependent on time and content of last meal. Glucose of more than 200 mg/dL in a nonstressed, ambulatory subject supports the diagnosis of Diabetes Mellitus. ADA recommended reference range Performed By: #### C MP #### [address] [place] [address] [facility] Glucose [Mass/volume] in Uri ne by Test stripOrdered By: Queta Tilley on 03-18-2024 Glucose Test strip (U) [Mass/Vol] Normal mg/dL Normal [facility] Hematocrit [Volume Fraction] of Blood by Automated countOrdered By: Queta Tilley on 03-18-2024 Hematocrit (Bld) [Volume fraction] 41.0 % Normal 38.8-50.0 [facility] Comment on above: Performed By: #### C BC #### [place] [id number] [facility] Hemoglobin Test strip Ql (U) Ordered By: Queta Tilley on 03-18-2024 Hemoglobin Ql (U) Negative Negative [facility] Hemoglobin [Mass/volume] in BloodOrdered By: Queta Tilley on 03-18-2024 Hemoglobin (Bld) [Mass/Vol] 13.8 g/dL Normal 13.0-17.0 [facility] Comment on above: Performed By: #### C BC #### [place] [id number] [facility] INR in Platelet poor plasma by Coagulation assayOrdered By: Queta Tilley on 03-18-2024 INR Coag (PPP) [Relative time] 0.9 {INR} Normal [facility] Comment on above: INR Therapeutic Rang [...] Performed By: #### P T, PTT #### [address] [place] [address] [place] Ketones [Presence] in Urine by Test stripOrdered By: Queta Tilley on 03-18-2024 Ketones Ql (U) Negative Normal Negative [facility] Comment on above: Order Comment: Name Collection Type:: Clean-Voided Midstream Performed By: #### U A #### [address] Leukocyte esterase [Presence ] in Urine by Test stripOrdered By: Queta Tilley on 03-18-2024 Leukocyte esterase Test strip Ql (U) Negative Normal Negative [facility] Comment on above: Order Comment: Name Collection Type:: Clean-Voided Midstream Performed By: #### U A #### [address] Leukocytes [#/volume] correc brady for nucleated erythrocytes in Blood by Automated counOrdered By: Queta Tilley on 03-18-2024 WBC corrected for nucl RBC Auto (Bld) [#/Vol] 9.4 10*3/uL 4.1-10.5 [facility] Leukocytes [#/volume] in Blo od by Automated countOrdered By: Queta Tilley on 03-18-2024 WBC (Bld) [#/Vol] 9.4 10*3/uL Normal 4.1-10.5 [facility] Comment on above: Performed By: #### C BC #### [place] [address] [place] Lymphocytes [#/volume] in Bl ood by Automated countOrdered By: Queta Tilley on 03-18-2024 Lymphocytes (Bld) [#/Vol] 2.4 10*3/uL Normal 1.00-4.8 [facility] Comment on above: Performed By: #### C BC #### [place] [address] [place] Lymphocytes/100 leukocytes i n Blood by Automated countOrdered By: Queta Tilley on 03-18-2024 Lymphocytes/100 WBC (Bld) 25.9 % Normal . [facility] Comment on above: Performed By: #### C BC #### [address] MCH [Entitic mass] by Automa brady countOrdered By: Queta Tilley on 03-18-2024 MCH (RBC) [Entitic mass] 31.2 pg Normal 27.5-35.2 [facility] Comment on above: Performed By: #### C BC #### [address] MCHC Auto (RBC) [Mass/Vol]Or dered By: Queta Tilley on 03-18-2024 MCHC (RBC) [Mass/Vol] 33.6 g/dL 32.5-35.6 [facility] MCV [Entitic volume] by Auto mated countOrdered By: Queta Tilley on 03-18-2024 MCV (RBC) [Entitic vol] 92.9 fL Normal 83.5-101 [facility] Comment on above: Performed By: #### C BC #### [address] Neutrophils [#/volume] in Bl ood by Automated countOrdered By: Queta Tilley on 03-18-2024 Neutrophils (Bld) [#/Vol] 6.1 10*3/uL Normal 1.8-7.7 [facility] Comment on above: Performed By: #### C BC #### [address] Nitrite Test strip Ql (U)Ord ered By: Queta Tilley on 03-18-2024 Nitrite Ql (U) Negative Negative [facility] No Panel InformationOrdered By: Queta Tilley on 03-18-2024 Estimated GFR (CKD-EPI) > 60.0 mL/Min [facility] Creatinine Clearance (Chem N/A [facility] Nucleated erythrocytes [Pres ence] in Blood by Automated countOrdered By: Queta Tilley on 03-18-2024 Nucleated RBC Auto Ql (Bld) 0.4 /100{WBC} 0-0.5 [facility] Partial Thromboplastin Timeo n 03-18-2024 aPTT Coag (Bld) [Time] 33.7 s Normal 25.1-36.5 [facility] Comment on above: Result Comment: A he matocrit value greater than 55% may lead to inaccurate results in coagulation testing. Patients having hematocrit values >55% require a special collection tube for coagulation studies. Please contact the laboratory at [phone] for redraw instructions. PERFORMED BY: [place] [address] PATHOLOGIST AMMONIA NITRATE OPERATOR HUGO AVALOS M.D. Performed By: #### P T, PTT #### [address] Platelet mean volume [Entiti c volume] in Blood by Automated countOrdered By: Queta Tilley on 03-18-2024 Platelet mean volume (Bld) [Entitic vol] 7.7 fL Normal 6.6-10.1 [facility] Comment on above: Performed By: #### C BC #### [address] Platelets [#/volume] in Bloo d by Automated countOrdered By: Queta Tilley on 03-18-2024 Platelets (Bld) [#/Vol] 220 10*3/uL Normal 150-450 [facility] Comment on above: Performed By: #### C BC #### [address] Potassium [Moles/volume] in Serum or PlasmaOrdered By: Queta Tilley on 03-18-2024 Potassium [Moles/Vol] 4.8 mmol/L Normal 3.5-5.1 [facility] Comment on above: Performed By: #### C MP #### [address] Protein Test strip (U) [Mass /Vol]Ordered By: Queta Tilley on 03-18-2024 Protein (U) [Mass/Vol] Negative Negative [facility] Protein [Mass/volume] in Ser um or PlasmaOrdered By: Queta Tilley on 03-18-2024 Protein [Mass/Vol] 6.9 g/dL Normal 6.4-8.9 [facility] Comment on above: Performed By: #### C MP #### [address] Prothrombin time (PT)Ordered By: Queta Tilley on 03-18-2024 PT Coag (PPP) [Time] 11.0 s Normal 9.0-12.9 [facility] Comment on above: A hematocrit value g reater than 55% may lead to inaccurate results in coagulation testing. Patients having hematocrit values >55% require a special collection tube for coagulation studies. Please contact the laboratory at [phone] for redraw instructions. Result Comment: A he matocrit value greater than 55% may lead to inaccurate results in coagulation testing. Patients having hematocrit values >55% require a special collection tube for coagulation studies. Please contact the laboratory at [phone] for redraw instructions. Performed By: #### P T, PTT #### [address] Serum globulin measurement b y calculation (mass/volume)Ordered By: Queta Tilley on 03-18-2024 Globulin (S) [Mass/Vol] 2.3 g/dL [facility] Comment on above: Performed By: #### C MP #### [address] Serum or plasma albumin/glob ulin mass ratioOrdered By: Queta Tilley on 03-18-2024 Albumin/Globulin [Mass ratio] 2.0 {ratio} [facility] Comment on above: Performed By: #### C MP #### [address] Serum or plasma anion gap de terminationOrdered By: Queta Tilley on 03-18-2024 Anion gap [Moles/Vol] 11.8 mmol/L Normal 6.0-15.0 [facility] Comment on above: Performed By: #### C MP #### [address] Sodium [Moles/volume] in Ser um or PlasmaOrdered By: Queta Tilley on 03-18-2024 Sodium [Moles/Vol] 131 mmol/L Low 136-145 [facility] Comment on above: Performed By: #### C MP #### [address] Specific gravity Test strip (U) [Rel density]Ordered By: Quetapippa Tilley on 03-18-2024 Specific gravity (U) [Rel density] 1.022 1.001-1.03 0 [facility] Urea nitrogen [Mass/volume] in Serum or PlasmaOrdered By: Queta Tilley on 03-18-2024 Urea nitrogen [Mass/Vol] 26 mg/dL High 7-25 [facility] Comment on above: Performed By: #### C MP #### [address] Urinalysison 03-18-2024 Bilirubin,Urine Negative Normal Negative [facility] Comment on above: Order Comment: Name Collection Type:: Clean-Voided Midstream Performed By: #### U A #### [address] Glucose Ql (U) Normal Normal Normal [facility] Comment on above: Order Comment: Name Collection Type:: Clean-Voided Midstream Performed By: #### U A #### [address] Nitrite,Urine Negative Normal Negative [facility] Comment on above: Order Comment: Name Collection Type:: Clean-Voided Midstream Performed By: #### U A #### [address] Occult Blood,Urine Negative Normal Negative [facility] Comment on above: Order Comment: Name Collection Type:: Clean-Voided Midstream Result Comment: PERF ORMED BY: [place] [address] PATHOLOGIST AMMONIA NITRATE OPERATOR HUGO AVALOS M.D. Performed By: #### U A #### [address] Protein,Urine Negative Normal Negative [facility] Comment on above: Order Comment: Name Collection Type:: Clean-Voided Midstream Performed By: #### U A #### [address] Specificy [place],Urine 1.022 Normal 1.001-1.03 0 [facility] Comment on above: Order Comment: Name Collection Type:: Clean-Voided Midstream Performed By: #### U A #### [address] Urobilinogen,Urine Normal Normal Normal [facility] Comment on above: Order Comment: Name Collection Type:: Clean-Voided Midstream Performed By: #### U A #### [address] Urine Cultureon 03-18-2024 Bacteria identified Cx Nom (U) No Growth 2 Days PERFORMED BY: [place] [address] PATHOLOGIST AMMONIA NITRATE OPERATOR HUGO AVALOS M.D. Normal [facility] Comment on above: Performed By: #### C UU #### [address] Urine appearanceOrdered By: Queta Tilley on 03-18-2024 Appearance (U) Clear Normal Clear [facility] Comment on above: Order Comment: Name Collection Type:: Clean-Voided Midstream Performed By: #### U A #### [address] Urobilinogen Test strip (U) [Mass/Vol]Ordered By: Queta Tilley on 03-18-2024 Urobilinogen (U) [Mass/Vol] Normal mg/dL Normal [facility] XR bonelength lower extremit yon 03-18-2024 XR bonelength lower extremity [facility] [address] [place] [address] XRay Report Signed Patient: Amina Lim MR#: [id number] 4 : 1945 Acct:[id number] Age/Sex: 78 / M ADM Date: 03/18/24 Loc: Room: Type: [facility] Attending Dr: Queta Tilley PA-C Copies [...] Kelly Banegas M.D.03/18/2024 4:55 PM Dictation Location: [place] [address] Transcribed By: [facility] 03/18/241654 Dictated By: Kelly Banegas II, MD 03/18/241653 Signed By: 03/18/241654 Normal [facility] pH of Urine by Test stripOrd ered By: Queta Tilley on 03-18-2024 pH (U) 5.5 [pH] Normal 5.0-9.0 [facility] Comment on above: Order Comment: Name Collection Type:: Clean-Voided Midstream Performed By: #### U A #### [facility] [address] [place] [address] XR KNEE DUSTIN 3 Von 03-15-2023 XR KNEE DUSTIN 3 V EXAM: XR KNEE DUSTIN 3 V HISTORY: Osteoarthritis COMPARISON: None. TECHNIQUE: 3 views FINDINGS: There is no acute fracture or dislocation. There are mild degenerative changes. The soft tissues are unremarkable. IMPRESSION: Mild degenerative changes as above. Electronically authenticated by: KELLY LARSON Date: 2023-03-15 12:38 Normal [facility] Covid-19 PCR (CVDTB)on 09-15 SARS-CoV-2 (COVID-19) RNA DHARA+probe Ql (Unsp spec) Not detected Normal NOT DETECTED [facility] Comment on above: Result Comment: When [...] for this test is supported by the [place] of Health and Human Service's declaration that [...] be used). Performed By: #### C VDTB ####[facility] [id number] [place] [address]Dr. Xena Pickard INFLUENZA A AND B [facility] 10-03 [facility] SEE BELOW Normal [facility] Comment on above: Result Comment: Nega tive for Flu A protein angiten. Infection due to Flu A cannot be ruled out. Flu A angiten in the sample may be below the detection limit of the test. Performed By: #### I NFLUAB #### [facility] [address] [address] [address] Xena Pick[facility] SEE BELOW Normal [facility] Comment on above: Result Comment: Nega tive for Flu B protein antigen. Infection due to Flu B cannot be ruled out. Flu B antigen in the sample may be below the detection limit of the test. Performed By: #### I NFLUAB #### [facility] [address] [address] [address] Xena Pickard INFLUENZA A AG Negative Normal NEGATIVE SEE COMMENT [facility] Comment on above: Performed By: #### I NFLUAB #### [facility] [address] [address] [address] Xena Pickard INFLUENZA B AG Negative Normal NEGATIVE SEE COMMENT [facility] Comment on above: Performed By: #### I NFLUAB #### [facility] [address] [place] [address] Dr. Xena Pickard INTERNAL CONTROLS Within Normal Limits Normal Wi thin Normal Limits [facility] Comment on above: Performed By: #### I NFLUAB #### [facility] [address] [place] [address] Dr. Xena Pickard INSULINon 09-02-2022 Insulin 14.1 uIU/mL Normal 2.6-24.9 [facility] Comment on above: Performed By: #### I NSULIN ####[facility] [id number] [address]Dr. Xena Pickard PTH INTACTon 09-02-2022 PTH, Intact 14 pg/mL Critically low 15-65 [facility] Comment on above: Performed By: #### P THINT #### [facility] [address] [place] [address] Dr. Xena Pickard CBC AUTO DIFFon 09-01-2022 BASO # 0.0 103/ul Normal 0.0-0.1 [facility] Comment on above: Performed By: #### C BC #### [facility] [address] [place] [address] Dr. Xena Pickard Basophils/100 WBC (Bld) 0.6 % Normal 0.2-2.0 [facility] Comment on above: Performed By: #### C BC #### [facility] [address] [place] [address] Dr. Xena Pickard EO # 0.2 103/ul Normal 0.0-0.7 [facility] Comment on above: Performed By: #### C BC #### [facility] [address] [place] [address] Dr. Xena Pickard Eosinophils/100 WBC (Bld) 2.5 % Normal 0.9-7.0 [facility] Comment on above: Performed By: #### C BC #### [facility] [address] [place] [address] Dr. Xena Pickard Erythrocyte distribution width (RBC) [Ratio] 13.5 % Normal 11.0-15.0 [facility] Comment on above: Performed By: #### C BC #### [facility] [address] [place] [address] Dr. Xena Pickard Hematocrit (Bld) [Volume fraction] 38.3 % Critically low 42.0-54.0 [facility] Comment on above: Performed By: #### C BC #### [facility] [address] [place] [address] Dr. Xena Pickard Hemoglobin (Bld) [Mass/Vol] 13.0 g/dL Critically low 14.0-18.0 [facility] Comment on above: Performed By: #### C BC #### [facility] [address] [place] [address] Dr. Xena Pickard IG # 0.03 10e3/ul Normal 0.00-0.03 [facility] Comment on above: Performed By: #### C BC #### [facility] [address] [place] [address] Dr. Xena Pickard IG % 0.4 % Normal 0.0-0.5 [facility] Comment on above: Performed By: #### C BC #### [facility] [address] [place] [address] Dr. Xena Pickard LYMPH # 2.2 103/ul Normal 1.2-3.8 [facility] Comment on above: Performed By: #### C BC #### [facility] [address] [place] [address] Dr. Xena Pickard Lymphocytes/100 WBC (Bld) 31.5 % Normal 20.5-60.0 [facility] Comment on above: Performed By: #### C BC #### [facility] [address] [place] [address] Dr. Xena Pickard MANUAL DIFF REQ NO Normal [facility] Comment on above: Performed By: #### C BC #### [facility] [address] [place] [address] Dr. Xena Pickard MCH (RBC) [Entitic mass] 30.5 pg Normal 25.9-34.0 [facility] Comment on above: Performed By: #### C BC #### [facility] [address] [address] [address] Xena Pikcard MCHC (RBC) [Mass/Vol] 33.9 g/dL Normal 29.9-35.2 [facility] Comment on above: Performed By: #### C BC #### [facility] [address] [place] [address] Dr. Xena Pikcard MCV (RBC) [Entitic vol] 89.9 fL Normal 80.0-94.0 [facility] Comment on above: Performed By: #### C BC #### [facility] [address] [place] [address] Dr. Xena Pickard MONO # 0.6 103/ul Normal 0.3-0.8 [facility] Comment on above: Performed By: #### C BC #### [facility] [address] [place] [address] Dr. Xena Pickard Monocytes/100 WBC (Bld) 8.2 % Normal 1.7-12.0 [facility] Comment on above: Performed By: #### C BC #### [facility] [address] [place] [address] Dr. Xena Pickard NEUT # 4.0 103/ul Normal 1.4-6.5 [facility] Comment on above: Performed By: #### C BC #### [facility] [address] [place] [address] Dr. Xena Pickard Neutrophils/100 WBC (Bld) 56.8 % Normal 43.0-75.0 [facility] Comment on above: Performed By: #### C BC #### [facility] [address] [place] [address] Dr. Xena Pickard Platelet mean volume (Bld) [Entitic vol] 10.2 fL Normal 9.5-13.5 [facility] Comment on above: Performed By: #### C BC #### [facility] [address] [place] [address] Dr. Xena Pickard PLT 185 103/ul Normal 150-450 [facility] Comment on above: Performed By: #### C BC #### [facility] [address] [place] [address] Dr. Xena Pickard RBC 4.26 106/ul Critically low 4.70-6.10 [facility] Comment on above: Performed By: #### C BC #### [facility] [address] [address] [address] Xena Pickard WBC 7.1 103/ul Normal 4.0-11.0 [facility] Comment on above: Performed By: #### C BC #### [facility] [address] [place] [address] Dr. Xena Pickard GLYCOHEMOGLOBIN A1Con 2021 ADA RECOMMENDATION SEE BELOW Normal [facility] Comment on above: Result Comment: ADA RECOMMENDED LIMIT 4.0 - 6.0 ADA THERAPEUTIC TARGET < 7.0 ACTION SUGGESTED > 7.0 Performed By: #### A 1C #### [facility] [address] [place] [address] Dr. Xena Pickard Glucose [Mass/Vol] 120 mg/dL Normal [facility] Comment on above: Performed By: #### A 1C #### [facility] [address] [place] [address] Dr. Xena Pickard HbA1c (Bld) [Mass fraction] 5.8 % Normal 4.5-6.2 [facility] Comment on above: Performed By: #### A 1C #### [facility] [address] [place] [address] Dr. Xena Pickard LIPID PROFILEon 09-01-2022 CHOL-HDL RATIO NORM SEE BELOW Normal [facility] Comment on above: Result Comment: 3.3 - 4.4 LOW RISK 4.4 - 7.1 AVERAGE RISK 7.1 - 11.0 MODERATE RISK >11.0 HIGH RISK Performed By: #### L IPID, URIC, CMP #### [facility] [address] [place] [address] Dr. Xena Pickard Cholesterol [Mass/Vol] 166 mg/dL Normal <=200 [facility] Comment on above: Performed By: #### L IPID, URIC, CMP #### [facility] [address] [place] [address] Dr. Xena Pickard Cholesterol in HDL [Mass/Vol] 52 mg/dL Normal 40-60 [facility] Comment on above: Performed By: #### L IPID, URIC, CMP #### [facility] [address] [address] [address] Xena Pickard Cholesterol in LDL [Mass/Vol] 100.8 mg/dL Normal [facility] Comment on above: Performed By: #### L IPID, URIC, CMP #### [facility] [address] [address] [address] Xena Pickard Cholesterol.total/Chol esterol in HDL [Mass ratio] 3.2 {ratio} Normal [facility] Comment on above: Performed By: #### L IPID, URIC, CMP #### [facility] [address] [place] [address] Dr. Xena Pickard HDL NORMAL > or = 60 mg/dl - LO W CARDIOVASCULAR RISK <40 mg/dl - HIGH CARDIOVASCULAR RISK Normal [facility] Comment on above: Performed By: #### L IPID, URIC, CMP #### [facility] [address] [place] [address] Dr. Xena Pickard LDL CALC NORMAL SEE BELOW Normal [facility] Comment on above: Result Comment: <100 mg/dl OPTIMAL 100 - 129 mg/dl NEAR OR ABOVE OPTIMAL 130 - 159 mg/dl BORDERLINE HIGH 160 - 189 mg/dl HIGH >190 mg/dl VERY HIGH Performed By: #### L IPID, URIC, CMP #### [facility] [address] [address] [address] Xena Pickard Triglyceride [Mass/Vol] 66 mg/dL Normal <=150 [facility] Comment on above: Performed By: #### L IPID, URIC, CMP #### [facility] [address] [address] [address] Xena Pickard VLDL CALC 13.2 mg/dL Normal [facility] Comment on above: Performed By: #### L IPID, URIC, CMP #### [facility] [address] [place] [address] Dr. Xena Pickard PHOSPHORUSon 09-01-2022 Phosphate [Mass/Vol] 3.3 mg/dL Normal 2.6-4.7 [facility] Comment on above: Performed By: #### P HOS ####[facility] [id number] [address]. Xena Pickard PROF 14(COMP METB)on 022 Albumin [Mass/Vol] 3.9 g/dL Normal 3.4-5.0 [facility] Comment on above: Performed By: #### L IPID, URIC, CMP #### [facility] [address] [address] [address] Xena Pickard Albumin/Globulin [Mass ratio] 1.2 {ratio} Normal [facility] Comment on above: Performed By: #### L IPID, URIC, CMP #### [facility] [address] [address] [address] Xena Pickard ALP [Catalytic activity/Vol] 44 U/L Critically low 46-116 [facility] Comment on above: Performed By: #### L IPID, URIC, CMP #### [facility] [address] [address] [address] Xena Pickard ALT [Catalytic activity/Vol] 38 U/L Normal 16-63 [facility] Comment on above: Performed By: #### L IPID, URIC, CMP #### [facility] [address] [address] [address] Xena Pickard Anion gap [Moles/Vol] 12.3 mmol/L Normal [facility] Comment on above: Performed By: #### L IPID, URIC, CMP #### [facility] [address] [address] [address] Xena Pickard AST [Catalytic activity/Vol] 16 U/L Normal 15-37 [facility] Comment on above: Performed By: #### L IPID, URIC, CMP #### [facility] [address] [address] [address] Xena Pickard Bilirubin [Mass/Vol] 0.5 mg/dL Normal 0.2-1.0 [facility] Comment on above: Performed By: #### L IPID, URIC, CMP #### [facility] [address] [address] [address] Xena Pickard Calcium [Mass/Vol] 8.7 mg/dL Normal 8.5-10.1 [facility] Comment on above: Performed By: #### L IPID, URIC, CMP #### [facility] [address] [place] [address] Dr. Xena Pickard Chloride [Moles/Vol] 101 mmol/L Normal 98-107 [facility] Comment on above: Performed By: #### L IPID, URIC, CMP #### [facility] [address] [place] [address] Dr. Xena Pickard CO2 [Moles/Vol] 26.8 mmol/L Normal 21.0-32.0 [facility] Comment on above: Performed By: #### L IPID, URIC, CMP #### [facility] [address] [place] [address] Dr. Xena Pickard Creatinine [Mass/Vol] 1.41 mg/dL Critically high 0.70-1.30 [facility] Comment on above: Performed By: #### L IPID, URIC, CMP #### [facility] [address] [place] [address] Dr. Xena Pickard EGFR-AF SERBIAN 59 mL/min/1.73m2 Critically low >=60 [facility] Comment on above: Performed By: #### L IPID, URIC, CMP #### [facility] [address] [place] [address] Dr. Xena Pickard EGFR-NON AF SERBIAN 49 mL/min/1.73m2 Critically low >=60 [facility] Comment on above: Performed By: #### L IPID, URIC, CMP #### [facility] [address] [place] [address] Dr. Xena Pickard Globulin (S) [Mass/Vol] 3.3 g/dL Normal [facility] Comment on above: Performed By: #### L IPID, URIC, CMP #### [facility] [address] [place] [address] Dr. Xena Pickard Glucose [Mass/Vol] 106 mg/dL Normal 74-106 [facility] Comment on above: Performed By: #### L IPID, URIC, CMP #### [facility] [address] [place] [address] Dr. Xena Pickard Potassium [Moles/Vol] 4.1 mmol/L Normal 3.5-5.1 [facility] Comment on above: Performed By: #### L IPID, URIC, CMP #### [facility] [address] [place] [address] Dr. Xena Pickard Protein [Mass/Vol] 7.2 g/dL Normal 6.4-8.2 [facility] Comment on above: Performed By: #### L IPID, URIC, CMP #### [facility] [address] [place] [address] Dr. Xena Pickard Sodium [Moles/Vol] 136 mmol/L Normal 136-145 [facility] Comment on above: Performed By: #### L IPID, URIC, CMP #### [facility] [address] [place] [address] Dr. Xena Pickard Urea nitrogen [Mass/Vol] 33.0 mg/dL Critically high 7.0-18.0 [facility] Comment on above: Performed By: #### L IPID, URIC, CMP #### [facility] [address] [place] [address] Dr. Xena Pickard Urea nitrogen/Creatinine [Mass ratio] 23.4 mg/mg Normal [facility] Comment on above: Performed By: #### L IPID, URIC, CMP #### [facility] [address] [place] [address] Dr. Xena Pickard URIC ACID SERUMon 09-01-2022 Urate [Mass/Vol] 5.1 mg/dL Normal 3.5-7.2 [facility] Comment on above: Performed By: #### L IPID, URIC, CMP #### [facility] [address] [place] [address] Dr. Xena Pickard URINE T PROTEIN CREAT RATIOo n 09-01-2022 UR TOTAL PROTEIN <6.0 Normal <=12.0 [facility] Comment on above: Performed By: #### U RTPCR #### [facility] [address] [address] [address] Xena Pickard URINE CREAT 36.48 mg/dL Normal 20.00-300. 00 [facility] Comment on above: Performed By: #### U RTPCR #### [facility] [address] [address] [address] Xena Pickard CNNURSEon 01-07-2021 CNNURSE Nurse Visit (COVAMD) -- AMINA LIM ([id number]) 1945 M Date Time Provider Department 01/07/21 NEIL PIERCE) LOTTIE During your visit today, we recorded the following information about you: Allergies As of Date: 01/07/2021 (No Known Allergies) Date Reviewed: 10/07/2019 Reviewed by: Sharon (Rn) DOLORES Nunn - Fully Assessed Order(s):[employer] SARS-COV-2 VACCINE 2D DOSE APPT [[id number]] Order #: [id number] Prescriptions as of 01/07/2021 Sig: DOCUSATE SODIUM [...] 1 tablet by mouth once d* OMEGA 1-MDU-PEY-FISH OIL 1,00* Take 1 g by mouth [...] 08/21/2017 Shoulder pain [M25.519] 07/16/2019 Encounter Status:Open [facility] Lab Reportson 07-01-2020 Lab Reports [id number]:127 Normal [facility] Lab Reports [id number]:127 [facility] Coding Summary.on 11-27-2019 Coding Summary. 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 Althea Koroma M.D. lkr Dictated: 11/25/2019 #[id number] Typed 11/25/2019 #[id number] cc: Althea Koroma M.D. [facility] Comment on above: Result Comment: Elec tronically Signed By: Althea Koroma MD\.br\Date and Time Signed: 11/26/19 16:05 EST Main OR Intraoperative Recor don 11-26-2019 Main OR Intraoperative Record IntraOp Document Type FT Summary Primary Physician: Althea Koroma MD Finalized Date/Time: 11/26/19 13:40:27 Pt. Name: AMINA LIM Adriano Price/Sex: 1945 Male Med Rec #: [id number] Physician: Althea Koroma MD Financial #: [id number] Pt. Type: A Room/Bed: [place] [address] Admit/Disch: 11/25/19 12:23:56 - 11/25/19 15:20:00 Institution: Case Times FT Entry 1 Patient Times In Room 11/25/19 14:12:00 Out Room 11/25/19 14:44:00 Procedure Times Start 11/25/19 14:22:00 Stop 11/25/19 14:42:00 Anesthesia Times Last Modified By: Estella BERNAL, Cortney SINGH 11/25/19 14:43:21 General Comments: 11/26/2019 Chart opened to review and send charges Anders Clayton BREWERY PUMPER Case Attendance FT Entry 1 Entry 2 [...] LENS(Right) INTRAOCULAR LENS(Right) Comments Last Modified By: SAMANTHA Soria RN, SAMANTHA Soria RN, SAMANTHA Soria RN, Ruthann 11/25/19 Cortney 11/25/19 Cortney 11/25/19 14:43:22 14:43:22 14:43:22 Entry 4 Case Attendee SAMANTHA Soria RN, Ruthann Role Performed Bioinformatics Programmer - Primary Time In 11/25/19 14:12:00 Time [...] Rinse Hair Removal Methods Not Indicated By Ga YE, Althea Rowe Outcomes Met? Yes Last Modified By: SAMANTHA [...] safely administered during the perioperative period [facility] please see scanned medication reconcilliation form for medications used at the field during the procedure. Implant Log FT Pre-Care Text: Records devices implanted during the operative or invasive procedure Entry 1 Procedure CATARACT EXTRACTION W/ Implant/Explant Implant INTRAOCULAR LENS(Right) Implant Identification FT Description HIMANSHU IOL TA43AAS [employer] Lot Number [id number] SIZE 20.5 [[id number] 20.5][F] Pre School Manager FT-[employer] Catalog ?# [id number] 20.5[F] Expiration Date 01/14/24 Unique Device [id number] Identifier (KATHLEEN) Human Readable {01}[id number] Machine Readable [id number] Barcode Barcode Usage Data FT Implant Site [...] 14:43 Tabitha Clayton CST 11/26/19 13:40 Normal [facility] Operative Reporton 0 Operative Report Date [...] to the surface of the globe. A SeeClickFix manometer was positioned and set at 20 [...] condition. Althea Koroma M.D. lkr Dictated: 11/25/2019 #[id number] Typed: 11/26/2019 #[id number] cc: Althea Koroma M.D. Normal [facility] Comment on above: Result Comment: Elec tronically Signed By: Althea Koroma MD\.br\Date and Time Signed: 11/26/19 16:05 EST Inpatient Patient Summaryon 11-25-2019 Inpatient Patient Summary [place] [id number] [facility] Clinical Discharge Instructions PERSON INFORMATION Name: AMINA LIM PHYSICIANS Admitting Physician: Althea Koroma MD Attending Physician: Althea Koroma MD PCP: Narciso Bullock MD Discharge Diagnosis: Cataract; Floppy iris syndrome Comment: PATIENT EDUCATION INFORMATION Instructions: Medication Leaflets: Follow up: With: Address: When: Althea Koroma [address] [place], [place] [address] Business (1) Comments: Call physician if symptoms worsen Keep scheduled appointment Type Location Start Finish State URO Office Visit Lizette 02/10/2020 9:15 AM 02/10/2020 9:30 AM [...] unit By Mouth every day. Comment: [facility] Main OR PACU II Recordon Main OR PACU II Record PACU Phase II Doc ument Type FT Summary Primary Physician: Althea Koroma MD Finalized Date/Time: 11/25/19 15:24:08 Pt. Name: AMINA LIM/Sex: 1945 Male Med Rec #: [id number] Physician: Althea Koroma MD Financial #: [id number] Pt. Type: A [facility] Admit/Disch: 11/25/19 12:23:56 - 11/25/19 15:20:00 Institution: [...] By: Emy Thomas RN 11/25/19 15:24 Normal [facility] Main OR Preoperative Recordo n 11-25-2019 Main OR Preoperative Record Holding Area Document Type FT Summary Primary Physician: Althea Koroma MD Finalized Date/Time: 11/25/19 12:48:49 Pt. Name: AMINA LIM Adriano Price/Sex: 1945 Male Med Rec #: [id number] Physician: Althea Koroma MD Financial #: [id number] Pt. Type: A [facility] Admit/Disch: 11/25/19 12:23:56 - Institution: Case [...] By: Cynthia James RN 11/25/19 12:48 Normal [facility] Patient Education - Texton 0 11-25-2019 Patient Education - Text Normal [facility] Basic Metabolic Panlon 07-17 Anion gap [Moles/Vol] 10 mmol/L Normal 0-15 [facility] Calcium [Mass/Vol] 8.4 mg/dL Low 8.5-10.5 [facility] Chloride [Moles/Vol] 106 mmol/L Normal 98-110 [facility] CO2 [Moles/Vol] 21 mmol/L Low 23-32 [facility] Creatinine [Mass/Vol] 1.23 mg/dL Normal 0.7-1.4 [facility] Glucose [Mass/Vol] 176 mg/dL High 65-100 [facility] Potassium [Moles/Vol] 4.1 mmol/L Normal 3.5-5.0 [facility] Sodium [Moles/Vol] 137 mmol/L Normal 135-146 [facility] Urea nitrogen [Mass/Vol] 22 mg/dL Normal 8-25 [facility] CASE MANAGEMon 07-17-2019 CASE MANAGEM HNO ID: [id number] Author: Nichelle Henao (Sw) Service: ? Author Type: Concrete Polisher Type: Care Mgt Progress Note Filed: 07/17/2019 [...] 17, 2019 TIME: 11:04 AM PAGER/CONTACT #: [phone] Normal [facility] CASE MGT INIT GLENNon [address] [facility] HNO ID: [id number] Author: Nichelle Henao (Sw) Service: ? Author Type: Concrete Polisher Type: Care Mgt Initial Assessment Filed: 07/17/2019 11:04 AM Note Text: CARE MANAGEMENT: ASSESSMENT AND DISCHARGE PLAN SERVICE DATE: 07/17/2019 SERVICE TIME: 11am PRIMARY CARE PHYSICIAN: Narciso Bullock MD ADMISSION STATUS: Inpatient Needs Prior to Discharge: Ready for Discharge MEDICAL: Patient/Patient Care Director Stated Goals: To have reduction in pain To have reduction in symptoms To improve my functional status Health Insurance: MEDICARE A AND B Health Issues Impacting Discharge Plan: none Last Discharge Date: 03/03/17 Is this Within the Past 30 days? No Advance Directive: Current Advance Directive: None Health Program Specialist Attempted to Assist with AD Completion: Yes [...] Information Primary Emergency Contact: Tanja Lim Address: [address] [place] [id number] [facility] Mobile Relation: Spouse Supportive: Yes Other Important [...] 0 I feel financially burdened by my iwe-dg-obipch expenses for my prescription medication: Disagree completely [...] 17, 2019 TIME: 11:02 AM PAGER/CONTACT #: [phone] Normal [facility] CBCon 07-17-2019 Absolute nRBC <0.01 Normal <0.01 [facility] Erythrocyte distribution width (RBC) [Ratio] 13.2 % Normal 11.5-15.0 [facility] Hematocrit (Bld) [Volume fraction] 32.9 % Low 39.0-51.0 [facility] Hemoglobin (Bld) [Mass/Vol] 11.0 g/dL Low 13.0-17.0 [facility] MCH (RBC) [Entitic mass] 30.6 pG Normal 26.0-34.0 [facility] MCHC (RBC) [Mass/Vol] 33.4 g/dL Normal 30.5-36.0 [facility] MCV (RBC) [Entitic vol] 91.6 fL Normal 80.0-100.0 [facility] Platelet mean volume (Bld) [Entitic vol] 10.4 fL Normal 9.0-12.7 [facility] Platelets (Bld) [#/Vol] 188 10*3/uL Normal 150-400 [facility] RBC (Bld) [#/Vol] 3.59 10*6/uL Low 4.20-6.00 [facility] WBC (Bld) [#/Vol] 16.37 10*3/uL High 3.70-11.00 [facility] NURSING PROGon 07-17-2019 NURSING PROG HNO ID: [id number] Author: Prudence (Rn) DOLORES Bowen Service: Nursing Author Type: Registered Nurse Type: Nursing Progress Note Filed: 07/17/2019 1:33 PM Note Text: Nursing Progress Note Patient Name: Amina Lim Patient Location: [place]-517/ [place]517-1 Daily Note:.Assumed care of patient, assessment completed, [...] note was completed by: Prudence Bowen RN [facility] PROGRESSon 07-17-2019 PROGRESS HNO ID: [id number] Author: Sky Echols Service: General Internal Medicine [...] of care with Dr. Echols. Yeny Walters APRN.UPPER TRIMMER July 17, 2019 10:36 AM I have seen the patient and verified the exam. I have personally reviewed all labs and imaging results. I have discussed with the STORY READER and I have participated in montelongo components. I agree with the note as documented with additional comments if needed. The assessment and plan as outlined are reflection of our discussion. Sky Echols MD July 17, 2019 [facility] PROGRESS HNO ID: [id number] Author: Rolly Osullivan MD Service: Orthopaedic Surgery [...] (U/L) Date Value 07/27/2009 29 URINALYSIS Specific [place], Ur Date Value Ref Range Status 08/24/2009 [...] Osullivan MD Resident Physician PGY-2 Orthopaedic Surgery [id number] For urgent issues or if after 5:00 PM/weekends, please page [phone]) Normal [facility] THERAPY NTon 07-17-2019 THERAPY NT HNO ID: [id number] Author: Roseanne (Ot) Gregory Service: Occupational Therapy Author Type: Occupational Therapist Type: Therapy (PT/OT/Speech/Resp) Filed: 07/17/2019 3:00 PM Note Text: Occupational Therapy Evaluation SERVICE DATE: 07/17/2019 SERVICE TIME: 0950 to 1020 ROOM: [place] [address] Recommended Discharge Disposition: Home Anticipated Discharge Needs: [...] of daily living (ADL) Interventions Provided: Evaluation;Self Skilled Nursing Management (94282) $ Evaluation-Low (06715) Billed Units: 1 unit Self Skilled Nursing Management (49298) Treatment Minutes: 23 2 units Skilled Intervention(s): [...] DATE: July 17, 2019 TIME: 2:46 PM [facility] THERAPY NT HNO ID: [id number] Author: Roseanne Jenkins Service: Occupational Therapy Author Type: Occupational Therapist Type: Therapy (PT/OT/Speech/Resp) Filed: 07/17/2019 3:08 PM Note Text: Occupational Therapy Treatment SERVICE DATE: 07/17/2019 SERVICE TIME: 1155 to 1240 ROOM: [place] [address] Recommended Discharge Disposition: Home Anticipated Discharge Needs: [...] daily living (ADL) Interventions Provided: Therapeutic Exercise (20572);Self Skilled Nursing Management (45946) Therapeutic Exercise (11524) Treatment Minutes: 10 1 unit Skilled Intervention(s): Instruction in therapeutic exercise Verbal and tactile cuing provided Facilitation of muscle control, optimal recruitment and alignment Education in PROM shoulder to 90 degrees FF passively and work toward limit of 120 degrees. Spouse able to perform PROM to 90 degrees as well Self Skilled Nursing Management (34899) Treatment Minutes: 35 2 units Skilled Intervention(s): [...] DATE: July 17, 2019 TIME: 3:04 PM [facility] THERAPY NT HNO ID: [id number] Author: Floresita JacobsonPt) Cory Service: Physical Therapy Author Type: Physical Therapist Type: Therapy (PT/OT/Speech/Resp) Filed: 07/17/2019 1:21 PM Note Text: PHYSICAL THERAPY MISSED VISIT SERVICE DATE: 07/17/2019 SERVICE TIME: 1320 to 1320 ROOM: [place] [address] (EU OR POST OP) Attempted Evaluation. Patient not seen due to No Skilled Needs. Patient's post op needs can be met by OT. Pt does not have any functional mobility impairment. Will discontinue PT order. SIGNATURE: Floresita Ray, PT PATIENT NAME: Amina Lim DATE: July 17, 2019 TIME: 1:21 PM [facility] HNO ID: [id number] Author: Armen Redmond (Rt) Service: Radiology Author Type: Net Manager Type: Allied Health Filed: 07/16/2019 3:56 PM [...] RT Elijah July 16, 2019 3:56 PM [facility] HNO ID: [id number] Author: Armen Redmond (Rt) Service: Radiology Author Type: Net Manager Type: Allied Health Filed: 07/16/2019 3:47 PM [...] RT Elijah July 16, 2019 3:47 PM [facility] ANES Gerry 07-16-2019 ANES POST HNO ID: [id number] Author: Jordan Desai Service: Anesthesiology Author Type: [...] 141/74 132/72 141/70 07/16/19 16107/16/19 1630 07/16/19 16407/16/19 170 Pulse: 62 61 [...] 16, 2019 TIME: 5:30 PM PAGER/CONTACT #: [phone] [facility] ANES PREOPon 07-16-2019 ANES PREOP HNO ID: [id number] Author: Jordan Desai Service: Anesthesiology Author Type: [...] Take 1 tablet by mouth once daily. Zqjib-2-JHN-EPA-Fish Oil (FISH OIL) 1,000 mg (120 mg-180 mg) cap Take 1 g by mouth once daily. Lecithin 1,200 mg cap Take 1 capsule by mouth once daily. lovastatin (MEVACOR) 20 mg tablet Take 20 mg by mouth daily at bedtime. multivitamin (MULTIPLE VITAMINS) tablet Take 1 tablet by mouth once daily. Saw [place] 160 mg capsule Take 160 mg by [...] ringers infusion 5-30 mL/hr INTRAVENOUS CONTINUOUS Mani Ramirez) Sell II - ceFAZolin iv piggyback 2 g in D5W (iso-osmotic) 100 mL (ANCEF) 2 g INTRAVENOUS Pre-Op Once Mani Ramirez) Sell II - acetaminophen 1,000 mg tab(s) (TYLENOL) 1,000 mg ORAL ONCE Mani Ramirez) Reina II - midazolam (PF) 2 mg [...] DATE: July 16, 2019 TIME: 10:51 AM [facility] CONSULTon 07-16-2019 CONSULT HNO ID: [id number] Author: Yeny Walters Service: General Internal Medicine [...] by mouth once daily. Disp: Rfl: 07/05/2019 Ygmnp-0-YTH-EPA-Fish Oil (FISH OIL) 1,000 mg (120 mg-180 [...] mouth once daily. Disp: Rfl: 07/05/2019 Saw [place] 160 mg capsule Take 160 mg by [...] the care of your patient. Yeny Walters, LULÚ.UPPER TRIMMER July 16, 2019 5:46 PM Normal [facility] OPERATIVE NOon 07-16-2019 OPERATIVE NO HNO ID: [id number] Author: Anshu Thomas Service: Orthopaedic Surgery Author Type: Physician Type: Operative Report Filed: 07/16/2019 3:21 PM Note Text: [facility] [address] [address] [place] OPERATIVE REPORT NAME: Amina Lim [facility] #: [id number] DATE: 07/16/2019 (1:12pm-3:12pm) AGE: 74 SURGEON 1: Anshu Thomas M.D. ICE CREAM SCOOPER: 1. Brain Kay M.D. 2. Rolly Osullivan [...] INDICATIONS: The patient is a 74 year oldgwa-pvmd-mcj right-hand dominant white male who has a [...] a #2 Ticron suture passed in a xvcwja-io-rjygk fashion. Following this, all retractors were removed, [...] none COMPLICATIONS: none apparent Anshu Thomas M.D. [facility] XR SHOULDER SPECIFY 1V RTon 07-16-2019 [...] on Jul 16 2019 3:57PM EST [id number] [facility] NURSING PROGon 06-27-2019 NURSING PROG HNO ID: [id number] Author: Norma (Rn) DOLORES Adorno Service: Nursing [...] glucose 114 06/25/19 TANDS 30 day in epic 03/14/17 [place] Imaging Within Last 12 Months: 06/25/19 ct shoulder in [facility] 12/13/18 xr shoulder 3v Cardiac Testin06/25/19 prelim ekg in [facility] Last Menstrual Period: NA BMI Percentile (PEDS): N/A Risk Assessment: N/A Anesthesia Review: N/A Narrative: N/A Pre-op Considerations: PER [facility] HX CLARENCE- CPAP at night History of Prostate CA with Radiation and insertion of Seeds CKD follows with Nephrology Chart Check: IN PROGRESS NEED FINAL EKG Marialuisa Cates RN June 27, 2019 1:24 PM July 15, 2019 8:38 AM Final EKG from 06/25/19--Sinus allegra (57bpm) Norma Adorno RN Normal [facility] Type and SCR (30D)on 019 ABO/RH(D) Positive Normal [facility] HOSPon 12-13-2018 HOSP Patient:Amina Lim [...] (VITAMIN C) 1,000 mg tablet [employer] Errav-7-PTW-EPA-Fish Oil (FISH OIL) 1,000 mg (120 mg-180 mg) cap Lecithin 1,200 mg cap lovastatin (MEVACOR) 20 mg tablet multivitamin (MULTIPLE VITAMINS) tablet [place] 160 mg capsule vitamin b complex tab [...] notes entered within the past 30 days [facility] XR SHLDR >/=3V AP/RADHA AP/OTH R [...] on Dec 10 2018 9:43AM EST [id number] [facility] XR SHLDR >/=3V AP/RADHA AP/OTH R RTon [...] on Dec 10 2018 9:37AM EST [id number] Normal [facility] Vital Signs Date Time Vital Sign Value Performing Clinician Facility 10-22-2024 10:21-0500 Body height 179.1 cm LyndsayBluelightApp DO Work Phone: [facility] 10-22-2024 10:21-0500 Body mass index (BMI) [Ratio] 28.84 kg/m2 LyndsayPolleverywhereitz DO Work Phone: [facility] 10-22-2024 10:21-0500 Body weight 92.5 kg LyndsayBluelightApp DO Work Phone: [facility] 10-22-2024 10:21-0500 Diastolic blood pressure 69 mm[Hg] LyndsayPolleverywhereitz DO Work Phone: [facility] 10-22-2024 10:21-0500 Heart rate 64 /min LyndsayBluelightApp DO Work Phone: [facility] 10-22-2024 10:21-0500 Systolic blood pressure 130 mm[Hg] Lyndsay Maditz DO Work Phone: [facility] 08-13-2024 13:14-0400 Body height 177.8 cm Queta Tilley PA Work Phone: [facility] 08-13-2024 13:14-0400 Body mass index (BMI) [Ratio] 29.96 kg/m2 Queta Tilley PA Work Phone: [facility] 08-13-2024 13:14-0400 Body weight 94.71 kg Queta Tilley PA Work Phone: [facility] 05-16-2023 09:10-0400 Body height 179.1 cm Lyndsay Maditz DO Work Phone: [facility] 05-16-2023 09:10-0400 Body weight 92.53 kg Lyndsay Maditz DO Work Phone: [facility] 05-16-2023 09:10-0400 Diastolic blood pressure 77 mm[Hg] Lyndsay Maditz DO Work Phone: [facility] 05-16-2023 09:10-0400 Heart rate 43 /min Lyndsay Maditz DO Work Phone: [facility] 05-16-2023 09:10-0400 Systolic blood pressure 171 mm[Hg] Lyndsay Maditz DO Work Phone: [facility] 09-06-2022 11:20-0500 Body height 177.8 cm [employer] [employer] Other [employer] Other 09-06-2022 11:20-0500 Body mass index (BMI) [Ratio] 29.9 kg/m2 Warrantly Other [employer] Other 09-06-2022 11:20-0500 Body temperature 96.5 [degF] [employer] Other [employer] Other 09-06-2022 11:20-0500 Body weight 94.53 kg Yudith Rubin Other [employer] Other 09-06-2022 11:20-0500 Diastolic blood pressure 88 mm[Hg] Yudith Rubin Other [employer] Other 09-06-2022 11:20-0500 Respiratory rate 18 /min Yudith Rubin Other [employer] Other 09-06-2022 11:20-0500 SaO2% (BldA) [Mass fraction] 98 % Yudith Rubin Other [employer] Other 09-06-2022 11:20-0500 Systolic blood pressure 159 mm[Hg] Yudith Rubin Other [employer] Other 09-22-2021 11:20-0500 Body height 177.8 cm Ileana Saavedramelisa Other [employer] Other 09-22-2021 11:20-0500 Body mass index (BMI) [Ratio] 30.93 kg/m2 Ianjorden Saavedramelisa Other [employer] Other 09-22-2021 11:20-0500 Body temperature 96.4 [degF] Ileana Mady Other [employer] Other 09-22-2021 11:20-0500 Body weight 97.8 kg Ileana Mady Other [employer] Other 09-22-2021 11:20-0500 Diastolic blood pressure 75 mm[Hg] Ileana Earl Other [employer] Other 09-22-2021 11:20-0500 Respiratory rate 18 /min Ileana Earl Other [employer] Other 09-22-2021 11:20-0500 SaO2% (BldA) [Mass fraction] 97 % Ileana Earl Other [employer] Other 09-22-2021 11:20-0500 Systolic blood pressure 119 mm[Hg] Ileana Earl Other [employer] Other Encounters Encounter Date Encounter Type Care Provider Facility Start: 06-27-2025 End: 06-27-2025 ambulatory [facility] Start: 11-07-2024 End: 11-07-2024 Bamboo flowsheet Queta Tilley PA Work Phone: [facility] Start: 11-07-2024 End: 11-07-2024 Bamboo flowsheet Queta Tilley PA Work Phone: [facility] Start: 11-07-2024 End: 11-07-2024 Postop follow up visit related to original px Queta Tilley PA Work Phone: [facility] Comment on above: S/P TKR (total knee replacement), left (Primary Dx) Start: 11-07-2024 End: 11-07-2024 ambulatory QUETA TILLEY Not Available Start: 10-28-2024 End: 10-28-2024 ambulatory [facility] Start: 10-22-2024 End: 10-22-2024 ambulatory NARCISO BULLOCK Facility:[facility] Start: 10-22-2024 End: 10-22-2024 Patient encounter procedure Lyndsay Salgado DO Work Phone: [facility] Comment on above: Stage 3a chronic kid per disease (HCC) (Primary Dx); Anemia of renal disease; Secondary renal hyperparathyroidism (HCC); Primary hypertension; SVT (supraventricular tachycardia) (HCC) Start: 10-18-2024 End: 10-18-2024 ambulatory Giacomoellis Carmichael MALKA [facility] Comment on above: Acute postoperative pain of left knee (Primary Dx); S/P total knee replacement, left Start: 10-17-2024 End: 10-17-2024 Telephone encounter Cassidy Smithmakenna DO Work Phone: [facility] Start: 10-08-2024 End: 10-08-2024 ambulatory Shirlene M Medves PT Work Phone: [...] px Queta Tilley PA Work Phone: [facility] Comment on above: S/P TKR [...] PT Start: 09-23-2024 End: 09-23-2024 ambulatory Shirlene Rowe Medves PT Work Phone: [facility] Comment on above: Acute postoperative pain of left knee (Primary Dx); S/P total knee replacement, left Start: 09-18-2024 End: 09-18-2024 Bamboo flowsheet Giacomo Carmichael OPERATIONS LEAD [facility] Start: 09-18-2024 End: 09-18-2024 Bamboo flowsheet Giacomo Jonesey OPERATIONS LEAD [facility] Start: 09-18-2024 End: 09-18-2024 ambulatory Giacomo Carmichael OPERATIONS LEAD [facility] Comment on above: S/P [...] Start: 09-11-2024 End: 09-11-2024 Bamboo flowsheet Roseanne J Delfino PT Work [...] Start: 09-09-2024 End: 09-09-2024 Bamboo flowsheet Roseanne Mcnamara Delfino PT Work Phone: [facility] Start: 09-09-2024 End: 09-09-2024 Bamboo flowsheet Roseanne Mcnamara Delfino PT Work [...] 08-29-2024 End: 08-30-2024 Refill José Manuel Wylie STORY READER Work Phone: [facility] Comment on above: Post-operative pain Start: 08-21-2024 End: 08-21-2024 Refill José Manuel Wylie STORY READER Work Phone: [facility] Comment on above: Post-operative pain (Primary Dx) Start: 08-20-2024 End: 08-20-2024 Orders Only Queta Tilley LORELEI Work Phone: [facility] Comment on above: Encounter for other preprocedural examination Start: 08-20-2024 End: 08-20-2024 Patient encounter status Queta Tilley LORELEI Work Phone: [facility] Start: 08-14-2024 End: 08-14-2024 Telephone encounter Jr. El Ruiz DO Work Phone: [facility] Comment on above: Surgery Start: 08-13-2024 End: 08-13-2024 ambulatory QUETA TILLEY [facility] Start: 08-13-2024 Encounter for other preprocedural examination [facility] Start: 08-13-2024 End: 08-13-2024 External Result Encounter Queta Mcnamara Jarek MOSELEY Work Phone: [facility] Unsolicited Start: 08-13-2024 End: 08-13-2024 External Result Encounter Queta Tilley LORELEI Work Phone: [facility] Unsolicited Start: 08-13-2024 End: 08-13-2024 Orders Only Queta Tilley LORELEI Work Phone: [facility] Comment on above: Encounter for other preprocedural examination Start: 08-13-2024 End: 08-13-2024 Patient encounter status Queta Tilley LORELEI Work Phone: [facility] Start: 08-13-2024 End: 08-13-2024 Patient encounter procedure Queta Tilley LORELEI Work Phone: [facility] Comment on above: Preop examination (P rimary Dx); Primary osteoarthritis of left knee; Eczema, unspecified type Start: 08-13-2024 End: 08-13-2024 Preprocedural examination done Queta Mcnamara Jarek MOSELEY Work Phone: [facility] Start: 08-13-2024 End: 08-13-2024 ambulatory QUETA TILLEY Not Available Start: 08-07-2024 End: 08-07-2024 Bamboo flowsheet Jr. El Matos Stepanic DO Work Phone: [facility] Start: 08-07-2024 End: 08-07-2024 Bamboo flowsheet Jr. El Matos Stepanic DO Work Phone: [facility] Start: 08-07-2024 End: 08-07-2024 ambulatory EL GONSALEZ Not Available Start: 08-07-2024 End: 08-07-2024 Office outpatient visit 25 minutes JrMalena Matos Stepjayce DO Work Phone: [facility] Comment on above: Acute pain of right knee (Primary Dx); History of right knee joint replacement; Primary osteoarthritis of left knee Start: 06-26-2024 End: 06-26-2024 Bamboo flowsheet Jr. El Matos Stepanic DO Work Phone: [facility] Start: 06-26-2024 End: 06-26-2024 Bamboo flowsheet Jr. El Matos Stepanic DO Work Phone: [facility] Start: 06-26-2024 End: 06-26-2024 Postop follow up visit related to original px Jr. El Matos Stepjayce DO Work Phone: [facility] Comment on above: S/P TKR [...] Available Start: 05-01-2024 End: 05-01-2024 ambulatory BONILLA WIGGINSHN Not Available Start: 04-29-2024 End: 04-29-2024 ambulatory BONILLA HOWARD Not Available Start: 04-26-2024 End: 04-26-2024 ambulatory AMEENA ALVATANMAYAnnalisa Not Available Start: 04-24-2024 End: 04-24-2024 ambulatory AMEENA ALVATANMAYAnnalisa Not Available Start: 04-22-2024 End: 04-22-2024 ambulatory SHIRLENE Rowe ANUPESTRELLITA Not Available Start: 04-17-2024 End: 04-17-2024 ambulatory QUETA Anders TILLEY Not Available Start: 03-20-2024 End: 03-20-2024 ambulatory SHIRLENE HEBERTESTRELLITA Not Available Start: 03-18-2024 End: 03-18-2024 Patient encounter procedure MD Narciso Bullock Work Phone: [facility] Work Phone: Start: 03-18-2024 End: 03-18-2024 ambulatory MD Narciso Bullock Work Phone: [facility] Work Phone: Start: 03-18-2024 Encounter for other preprocedural examination Queta Tilley [facility] Start: 03-18-2024 End: 03-18-2024 ambulatory QUETA Anders JAREK Not Available Start: 02-02-2024 End: 02-02-2024 ambulatory EL GONSALEZ Not Available Start: 05-24-2023 ambulatory No Pcp LULÚ [place] Start: 05-16-2023 End: 05-16-2023 Patient encounter procedure Lyndsay Damian [place] Work Phone: [facility] Comment on above: Chronic kidney disea se, unspecified CKD stage (Primary Dx); Bradycardia; Generalized pain; Anemia of renal disease; Primary hypertension Start: 03-15-[address] NARCISO BULLOCK . Facili ty:[facility] Start: 10-03-2022 End: 10-03-[address] NARCISO BULLOCK . Facility:[facility] Start: 09-06-2022 End: 09-06-2022 ambulatory Aidenrahda Caryn Other [employer] Other Start: 09-06-2022 Office outpatient vi sit 15 minutes Yudith Rubin [facility] Start: 09-01-2022 End: 09-02-[address] NARCISO BULLOCK . Facility: Start: 09-01-2022 End: 09-02-[address] NARCISO BULLOCK . Facility:[facility] Start: 09-22-2021 End: 09-22-2021 ambulatory Ileana Saavedramelisa Other [employer] Other Start: 09-22-2021 Office outpatient vi sit 15 minutes Ianjorden Mady [facility] Start: 12-10-2018 End: 12-10-2018 Patient encounter procedure [facility] Procedures Date Procedure Procedure Detail Performing Clinician Start: 10-03-2024 Radiologic examinati on knee 1/2 views Queta MOSELEY Work Phone: Start: 08-13-2024 Thromboplastin time partial plasma/whole blood Queta MOSELEY Work Phone: Start: 09-01-[address] EH BULLOCK . Comment on above: Performed By: #### P [facility] #### [facility] [address] [place] [address] Dr. Xena Pickard Start: 06-25-2019 Antibody screen History of operative procedure on knee History of right knee joint replacement Jr. El Ruiz DO Work Phone: Plan of Treatment Date Care Activity Detail Author Start: 08-13-2027 Diabetes Screening Diabetes Screenin g [facility] Start: 11-03-2025 End: 11-03-2025 Patient encounter procedure 11/03/2025 8:30 AM EST Office Visit [facility] [address] [place] [address] Queta Tilley PA [address] [place] [address] [facility] Start: 10-16-2025 End: 01-15-2026 25-hydroxyvitamin D3 [Mass/volume] in Serum or Plasma VITAMIN D 25 HYDROXY Lab Routine Stage 3a chronic kidney disease (HCC) Expected: 10/16/2025, Expires: 01/15/2026 [facility] Comment on above: Expected: 10/16/2025 , Expires: 01/15/2026 Start: 10-16-2025 End: 01-15-2026 CBC panel - Blood by Automated count COMPLETE BLOOD COUNT Lab Routine Stage 3a chronic kidney disease (HCC) Expected: 10/16/2025, Expires: 01/15/2026 [facility] Comment on above: Expected: 10/16/2025 , Expires: 01/15/2026 Start: 10-16-2025 End: 01-15-2026 Parathyrin.intact [Mass/volume] in Serum or Plasma PTH INTACT Lab Routine Stage 3a chronic kidney disease (HCC) Expected: 10/16/2025, Expires: 01/15/2026 [facility] Comment on above: Expected: 10/16/2025 , Expires: 01/15/2026 Start: 10-16-2025 End: 01-15-2026 Protein/Creatinine [Mass Ratio] in Urine PROTEIN / CREATININE RATIO Lab Routine Stage 3a chronic kidney disease (HCC) Expected: 10/16/2025, Expires: 01/15/2026 [facility] Comment on above: Expected: 10/16/2025 , Expires: 01/15/2026 Start: 10-16-2025 End: 01-15-2026 Renal function 2000 panel - Serum or Plasma RENAL FUNCTION PANEL Lab Routine Stage 3a chronic kidney disease (HCC) Expected: 10/16/2025, Expires: 01/15/2026 [facility] Work Phone: Comment on above: Expected: 10/16/2025 , Expires: 01/15/2026 Start: 10-16-2025 End: 01-15-2026 Urinalysis complete panel - Urine URINALYSIS, WITH MICROSCOPIC Lab Routine Stage 3a chronic kidney disease (HCC) Expected: 10/16/2025, Expires: 01/15/2026 [facility] Comment on above: Expected: 10/16/2025 , Expires: 01/15/2026 Start: 08-13-2025 Complete blood count Hemoglobin/Bryon tocrit [facility] Start: 08-13-2025 Creatinine measurement Serum Creatin ine [facility] Start: 11-07-2024 End: 11-07-2024 Patient encounter procedure [facility] Comment on above: S/P TKR (total knee replacement), left (Primary Dx) Start: 10-22-2024 End: 10-22-2024 Patient encounter procedure 10/22/2024 10:20 AM EST Office Visit [facility] [id number] [place] [address] Lyndsay Salgado, DO [address] [place] [address] 1 year [facility] Comment on above: 1 year Start: 10-18-2024 End: 10-18-2024 ambulatory 10/18/2024 8:30 AM EST Treatment [facility] [address] [place] [address] Giacomo Carmichael PTA [facility] Start: 10-17-2024 End: 01-16-2025 25-hydroxyvitamin D3 [Mass/volume] in Serum or Plasma VITAMIN D 25 HYDROXY Lab Routine Stage 3 chronic kidney disease, unspecified whether stage 3a or 3b CKD (HCC) Expected: 10/17/2024, Expires: 01/16/2025 [facility] Comment on above: Expected: 10/17/2024 , Expires: 01/16/2025 Start: 10-17-2024 End: 01-16-2025 CBC panel - Blood by Automated count COMPLETE BLOOD COUNT Lab Routine Stage 3 chronic kidney disease, unspecified whether stage 3a or 3b CKD (HCC) Expected: 10/17/2024, Expires: 01/16/2025 [facility] Comment on above: Expected: 10/17/2024 , Expires: 01/16/2025 Start: 10-17-2024 End: 01-16-2025 Microalbumin/Creatinine [Mass Ratio] in Urine ALBUMIN/CREATININE RATIO, URINE Lab Routine Stage 3 chronic kidney disease, unspecified whether stage 3a or 3b CKD (HCC) Expected: 10/17/2024, Expires: 01/16/2025 [facility] Work Phone: Comment on above: Expected: 10/17/2024 , Expires: 01/16/2025 Start: 10-17-2024 End: 01-16-2025 Parathyrin.intact [Mass/volume] in Serum or Plasma PTH INTACT Lab Routine Stage 3 chronic kidney disease, unspecified whether stage 3a or 3b CKD (HCC) Expected: 10/17/2024, Expires: 01/16/2025 [facility] Comment on above: Expected: 10/17/2024 , Expires: 01/16/2025 Start: 10-17-2024 End: 01-16-2025 Protein/Creatinine [Mass Ratio] in Urine PROTEIN / CREATININE RATIO Lab Routine Stage 3 chronic kidney disease, unspecified whether stage 3a or 3b CKD (HCC) Expected: 10/17/2024, Expires: 01/16/2025 [facility] Comment on above: Expected: 10/17/2024 , Expires: 01/16/2025 Start: 10-17-2024 End: 01-16-2025 Renal function 2000 panel - Serum or Plasma RENAL FUNCTION PANEL Lab Routine Stage 3 chronic kidney disease, unspecified whether stage 3a or 3b CKD (HCC) Expected: 10/17/2024, Expires: 01/16/2025 [facility] Comment on above: Expected: 10/17/2024 , Expires: 01/16/2025 Start: 10-17-2024 End: 01-16-2025 Urinalysis complete panel - Urine URINALYSIS WITH MICROSCOPIC, REFLEX CULTURE Lab Routine Stage 3 chronic kidney disease, unspecified whether stage 3a or 3b CKD (HCC) Expected: 10/17/2024, Expires: 01/16/2025 [facility] Comment on above: Expected: 10/17/2024 , Expires: 01/16/2025 Start: 10-16-2024 Advance Directive Discussion Advance Directive Discussion [facility] Start: 10-08-2024 End: 10-08-2024 ambulatory 10/08/2024 10:15 AM EST Treatment [facility] [address] [place] [address] Shirlene Blakely, PT [address] [place] [address] [facility] Start: 10-03-2024 End: 10-03-2024 ambulatory 10/03/2024 10:00 AM EST Treatment [facility] [address] [place] [address] Shirlene Blakely, PT [address] [place] [address] [facility] Start: 10-03-2024 End: 10-03-2024 Patient encounter procedure [facility] Comment on above: S/P TKR (total knee replacement), left (Primary Dx) Start: 09-30-2024 End: 09-30-2024 ambulatory 09/30/2024 5:30 PM EST Treatment [facility] [address] [place] [address] Roseanne Sousa, PT [address] [place] [address] [facility] Start: 09-30-2024 End: 09-30-2024 ambulatory 09/30/2024 10:30 AM EST Treatment [facility] [address] [place] [address] Ameena Lawson PTA [facility] Start: 09-27-2024 End: 09-27-2024 ambulatory [facility] Comment on above: Arrived Start: 09-23-2024 End: 09-23-2024 ambulatory [facility] Comment on above: Acute postoperative pain of left knee (Primary Dx); S/P total knee replacement, left Start: 09-20-2024 End: 09-20-2024 ambulatory 09/20/2024 8:45 AM EST Treatment [facility] [address] [place] [address] Roseanne Sousa, PT [address] [place] [address] [facility] Start: 09-18-2024 End: 09-18-2024 ambulatory 09/18/2024 9:00 AM EST Treatment [facility] [address] [place] [address] Giacomo Carmichael, MALKA [facility] Start: 09-16-2024 End: 09-16-2024 [...] Preop examination Expected: 08/09/2024 (Approximate), Expires: 08/09/2025 [facility] Work Phone: Comment on above: Expected: 08/09/2024 (Approximate), Expires: 08/09/2025 Start: 08-09-2024 End: 08-13-2025 Bacteria identified in Urine by Culture [facility] Comment on above: Expected: 08/09/2024 (Approximate), Expires: 08/09/2025 Expected: 08/09/2024 , Expires: 08/13/2025 Start: 08-09-2024 End: 08-09-2025 CBC W Auto Differential panel - Blood CBC auto differential Lab Routine Preop examination Expected: 08/09/2024 (Approximate), Expires: 08/09/2025 [facility] Comment on above: Expected: 08/09/2024 (Approximate), Expires: 08/09/2025 Start: 08-09-2024 End: 08-09-2025 Comprehensive metabolic 2000 panel - Serum or Plasma Comprehensive metabolic panel Lab Routine Preop examination Expected: 08/09/2024 (Approximate), Expires: 08/09/2025 [facility] Comment on above: Expected: 08/09/2024 (Approximate), Expires: 08/09/2025 Start: 08-09-2024 End: 08-09-2025 Prothrombin time (PT) in Blood by Coagulation assay Protime-INR Lab Routine Preop examination Expected: 08/09/2024 (Approximate), Expires: 08/09/2025 [facility] Comment on above: Expected: 08/09/2024 (Approximate), Expires: 08/09/2025 Start: 08-09-2024 End: 08-09-2025 Urinalysis complete panel - Urine Urinalysis with reflex microscopic Lab Routine Preop examination Expected: 08/09/2024 (Approximate), Expires: 08/09/2025 [facility] Comment on above: Expected: 08/09/2024 (Approximate), Expires: 08/09/2025 Start: 08-09-2024 End: 08-09-2025 XR Femur and Tibia Views for leg length XR lower extremity leg length evaluation Imaging Routine Preop examination Expected: 08/09/2024 (Approximate), Expires: 08/09/2025 [facility] Comment on above: Expected: 08/09/2024 (Approximate), Expires: 08/09/2025 Start: 08-07-2024 End: 08-07-2024 Patient encounter procedure 08/07/2024 10:00 AM EDT Office Visit [facility] [address] [place] [id number] Jr. El Ruiz C, DO [address] [facility] [address] [place] [address] [facility] Start: 06-26-2024 End: 06-26-2024 Patient encounter procedure 06/26/2024 11:15 AM EDT Office Visit [facility] [address] [place] [address] Jr. El Ruiz, 112 [facility] [address] [place] [address] Arrived [facility] Comment on above: Arrived Start: 06-16-2024 Covid-19 Vaccine ( season) Covid-19 Vaccine () [facility] Start: 06-16-2024 Influenza vaccination N S [facility] Start: 06-14-2024 Complete blood count Hemoglobin/Bryon tocrit [facility] Start: 06-14-2024 Creatinine measurement Serum Creatin ine [facility] Start: 06-14-2024 HEMOGLOBIN/HEMATOCRIT HEMOGLOBIN/HEM ATOCRIT [facility] Start: 06-14-2024 SERUM CREATININE SERUM CREATININE [facility] Start: 03-18-2024 Bacteria identified in Urine by Culture [facility] Start: 06-16-2023 Influenza vaccination INFLUENZA (#1) [facility] Start: 05-16-2023 End: 07-16-2023 25-hydroxyvitamin D3 [Mass/volume] in Serum or Plasma VITAMIN D 25 HYDROXY Lab Routine Chronic kidney disease, unspecified CKD stage Expected: 05/16/2023, Expires: 07/16/2023 [facility] Work Phone: Comment on above: Expected: 05/16/2023 , Expires: 07/16/2023 Start: 05-16-2023 End: 07-16-2023 MONOCLONAL PROTEIN, SERUM (BLOOD) MONOCLONAL PROTEIN, SERUM (BLOOD) Lab Routine Chronic kidney disease, unspecified CKD stage Expected: 05/16/2023, Expires: 07/16/2023 [facility] Work Phone: Comment on above: Expected: 05/16/2023 , Expires: 07/16/2023 Start: 05-16-2023 End: 07-16-2023 Parathyrin.intact [Mass/volume] in Serum or Plasma PTH INTACT BLD Lab Routine Chronic kidney disease, unspecified CKD stage Expected: 05/16/2023, Expires: 07/16/2023 [facility] Work Phone: Comment on above: Expected: 05/16/2023 , Expires: 07/16/2023 Start: 10-16-2022 ADVANCE DIRECTIVE DISCUSSION ADVANCE DIRECTIVE DISCUSSION [facility] Start: 10-16-2022 DEPRESSION ASSESSMENT DEPRESSION ASS ESSMENT [facility] Start: 07-17-2022 DIABETES [facility]CREEN [facility] Start: 07-17-2022 Diabetes Screening Diabetes Screenin g [facility] Start: 2021 RSV Vaccine (1 - 1-d ose 75+ series) RSV Vaccine (1 - 1-dose 75+ series) [facility] Start: 03-04-2021 COVID-19 VACCINE (3 - Pfizer series) COVID-19 VACCINE (3 - Pfizer series) [facility] Start: 07-17-2020 HEMOGLOBIN/HEMATOCRIT HEMOGLOBIN/HEM ATOCRIT [facility] Start: 07-17-2020 SERUM CREATININE SERUM CREATININE Cl [facility] Start: 11-16-2017 PNEUMOCOCCAL: 65+ (2 - PCV) PNEUMOCOCCAL: 65+ (2 - PCV) [facility] Start: 2011 Fall Risk Screening Fall Risk Screen ing [facility] Start: 1996 Administration of varicella zoster vaccine Zoster (Shingles) Vaccine (1 of 2) [facility] Start: 1996 SHINGRIX VACCINE (1 of 2) SHINGRIX VACCINE (1 of 2) [facility] Start: 1965 DTaP,Tdap and Td Vaccines (1 - Tdap) DTaP,Tdap and Td Vaccines (1 - Tdap) [facility] Start: 1965 Urine microalbumin profile [facility] Start: 1964 Adult BMI Screening Adult BMI Screen ing [facility] Start: 1964 ANNUAL PCP TEAM GRAPHIC DESIGN ASSISTANT MAURI DISEASE VISIT ANNUAL PCP TEAM CHRONIC DISEASE VISIT [facility] Start: 1964 Anxiety Screening Anxiety Screening [facility] Start: 1964 BP CONTROLLED (<130/80) BP CONTROLLE D (<130/80) [facility] Start: 1964 Depression Screening Depression Scre ing [facility] Start: 1964 HEPATITIS C SCREENING HEPATITIS C [facility] Start: 1964 Hepatitis C screening Hepatitis C [facility] Start: 1958 Depression Screening Depression Scre ening [facility] Start: 1958 Tobacco Screening Tobacco Screening [facility] Start: 1946 Medicare Annual Well ness Visit Medicare Annual Wellness Visit [facility] Bacteria identified in Urine by Culture Urine Culture Microbiology Routine Encounter for other preprocedural examination 08/13/2024 6:13 PM EDT [facility] End: 05-16-2024 CBC panel - Blood by Automated count CBC Lab Routine Chronic kidney disease, unspecified CKD stage Every 3 months for 4 Occurrences starting 05/16/2023 until 05/16/2024 [facility] Work Phone: Comment on above: Every 3 months for 4 Occurrences starting 05/16/2023 until 05/16/2024 End: 05-16-2024 Protein/Creatinine [Mass Ratio] in Urine PROTEIN CREATININE RATIO Lab Routine Chronic kidney disease, unspecified CKD stage Every 3 months for 4 Occurrences starting 05/16/2023 until 05/16/2024 [facility] Work Phone: Comment on above: Every 3 months for 4 Occurrences starting 05/16/2023 until 05/16/2024 End: 05-16-2024 Renal function 2000 panel - Serum or Plasma RENAL FUNCTION PANEL Lab Routine Chronic kidney disease, unspecified CKD stage Every 3 months for 4 Occurrences starting 05/16/2023 until 05/16/2024 [facility] Work Phone: Comment on above: Every 3 months for 4 Occurrences starting 05/16/2023 until 05/16/2024 End: 05-16-2024 Urinalysis complete panel - Urine URINALYSIS, WITH MICROSCOPIC Lab Routine Chronic kidney disease, unspecified CKD stage Every 3 months for 4 Occurrences starting 05/16/2023 until 05/16/2024 [facility] Work Phone: Comment on above: Every 3 months for 4 Occurrences starting 05/16/2023 until 05/16/2024 End: 06-16-2024 US KIDNEY/BLADDER US KIDNEY/BLADDER Radiology Routine Chronic kidney disease, unspecified CKD stage 1 Occurrences starting 05/16/2023 until 06/16/2024 [facility] Work Phone: Comment on above: 1 Occurrences starti ng 05/16/2023 until 06/16/2024 [facility] Immunizations Immunization Date Immunization Notes Care Provider [facility] 07-26-2021 influenza virus vacc ine, unspecified formulation Jr. Ruiz DO Work Phone: [facility] 01-07-2021 COVID-19 original vaccine, age 12+ yr, monovalent (PFIZER-BIONTECH - PURPLE TOP) Lyndsay Salgado DO Work Phone: [facility] Work Phone: 12-17-2020 COVID-19 original vaccine, age 12+ yr, monovalent (PFIZER-BIONTECH - PURPLE TOP) Lyndsay Salgado DO Work Phone: [facility] Work Phone: 11-16-2016 pneumococcal polysaccharide vaccine, 23 valent Lyndsay Salgado DO Work Phone: [facility] Payers Date Payer Category Payer Self-pay [id number] 2023 Unknown [id number] 2021 Commercial Indemnity [employer] [id number] 2021 Private Health Insurance [employer] [id number]. [id number] 2020 Unknown [id number]. 1.13.159.2. [id number] 2011 Medicare [id number]. 1.13.159.2. 7.3.268561.315 1959 Medicare [id number] 2.16.840.1.646722.19 1959 Unknown [id number] 2.16.840.1.368275.19 1946 Unknown [id number] 2.16.840.1.785561.3.579.2. 593 1946 Unknown [id number] 2.16.840.1.386687.3.579.2. 593 1946 Unknown [id number] 2.16.840.1.443798.3.579.2. 593 1946 Unknown [id number] 2.16.840.1.752897.3.579.2. 593 1946 Unknown [id number] 2.16.840.1.621265.3.579.2. 1286 1946 Unknown [id number] 2.16.840.1.441087.3.579.2. 1286 1946 Unknown [id number] 2.16.840.1.196061.3.579.2. 1259 1946 Unknown [id number] 2.16.840.1.511734.3.579.2. 1259 1946 Unknown [id number] 2.16.840.1.924161.3.579.2. 1259 1946 Unknown [id number] 2.16.840.1.039793.3.579.2. 1259 1946 Unknown [id number] 2.16.840.1.136863.3.579.2. 1258 1946 Unknown [id number] 2.16.840.1.248440.3.579.2. 1258 1946 Unknown [id number] 2.16.840.1.622332.3.579.2. 1258 1946 Unknown [id number] 2.16.840.1.810246.3.579.2. 1258 1946 Unknown [id number] 2.16.840.1.982707.3.579.2. 1258 1946 Unknown [id number] 2.16.840.1.503742.3.579.2. 1258 1946 Unknown [id number] 2.16.840.1.805907.3.579.2. 1258 1946 Unknown [id number] 2.16.840.1.759802.3.579.2. 1258 1946 Unknown [id number] 2.16.840.1.319360.3.579.2. 1258 1946 Unknown [id number] 2.16.840.1.921916.3.579.2. 1258 1946 Unknown [id number] 2.16.840.1.009031.3.579.2. 1258 1946 Unknown [id number] 2.16.840.1.752443.3.579.2. 1258 1946 Unknown [id number] 2.16.840.1.769470.3.579.2. 1258 1946 Unknown [id number] 2.16.840.1.021571.3.579.2. 1258 1946 Unknown [id number] 2.16.840.1.337650.3.579.2. 1258 1946 Unknown [id number] 2.16.840.1.144899.3.579.2. 1259 1946 Unknown [id number] 2.16.840.1.760937.3.579.2. 1258 1946 Unknown [id number] 2.16.840.1.708874.3.579.2. 1258 1946 Unknown [id number] 2.16.840.1.835426.3.579.2. 1258 1946 Unknown [id number] 2.16.840.1.695914.3.579.2. 1258 1946 Unknown [id number] 2.16.840.1.100686.3.579.2. 1258 1946 Unknown [id number] 2.16.840.1.471792.3.579.2. 1258 1946 Unknown [id number] 2.16.840.1.500518.3.579.2. 1258 1946 Unknown [id number] 2.16.840.1.234596.3.579.2. 1258 1946 Unknown [id number] 2.16.840.1.298328.3.579.2. 1258 1946 Unknown [id number] 2.16.840.1.068738.3.579.2. 1258 1946 Unknown [id number] 2.16.840.1.638418.3.579.2. 1258 1946 Unknown [id number] 2.16.840.1.805753.3.579.2. 1258 1946 Unknown [id number] 2.16.840.1.355167.3.579.2. 1258 1946 Unknown [id number] 2.16.840.1.050723.3.579.2. 1259 Unknown [id number] 2.16.840.1.450840.3.579.2. 531 Social History Date Type Detail Facility Unknown if ever smoked [employer] Other Start: 03-27-2019 End: 05-16-2023 Sex Assigned At [facility] Start: 05-16-2023 End: 09-25-2023 Tobacco smoking status NHIS Never smoked tobacco [facility] Start: 05-16-2023 End: 09-25-2023 Tobacco use and exposure Smokeless tobacco non-user [facility] Start: 05-16-2023 End: 11-07-2024 Alcohol intake Current drinker of alcohol (finding) [facility] Start: 03-27-2019 End: 05-16-2023 History of Social function [facility] Start: 09-18-2023 PHQ2 Score 0 [facility] Start: 06-25-2019 Alcohol Comment 2 drinks every other day, maybe 3. beer. [facility] Start: 1945 Sex Assigned At Male [facility] Start: 06-18-2019 Gender identity Identifies as male gender (finding) [facility] Tobacco smoking status DCIS Tobacco smoking consumption unknown [employer] [facility] Start: 1945 Sex assigned at Not on file [employer] Start: 05-21-2015 Sex Male (finding) [employer] Medical Equipment Procedure Code Equipment Code Equipment Origin al Text Equipment Identifier Dates [id number] plant - [id number] Start: 03-02-2017 Comment on above: Description: CHECK P RICE Humeral Insert S ocket 36 M + 4 [id number] Start: 07-16-2019 Insert Rsp 36mm Standard Socket [employer] Humerus - [id number] Start: 03-02-2017 Stem Altivate Dj o Surgical 12 Standard 108mm Humeral Sterile Shoulder - [id number] Start: 07-16-2019 Baseplate Rsp P2 30mm Glenoid Sterile - [id number] Start: 07-16-2019 Screw Rsp 5mm 18 mm Bone Lock Glenoid Baseplate Shoulder - [id number] Start: 03-02-2017 Screw Rsp 5mm 26 mm Bone Lock Glenoid Baseplate Shoulder - [id number] Start: 07-16-2019 Baseplate Rsp 6. 5mm Wiggins 30mm Glenoid - [id number] Start: 03-02-2017 Head Rsp 36mm Ne utral Glenoid Retain Screw - [id number] Start: 03-02-2017 Head Rsp 36mm Ne utral Glenoid Retain Screw - [id number] Start: 07-16-2019 Screw Rsp 5mm 30 mm Bone Lock Glenoid Baseplate Shoulder - [id number] Start: 03-02-2017 Screw Rsp 5mm 30 mm Bone Lock Glenoid Baseplate Shoulder - [id number] Start: 03-02-2017 Screw Rsp 5mm 18 mm Bone Lock Glenoid Baseplate Shoulder - [id number] Start: 03-02-2017 Screw Rsp 5mm 22 mm Bone Lock Glenoid Baseplate Shoulder - [id number] Start: 07-16-2019 Screw Rsp 5mm 26 mm Bone Lock Glenoid Baseplate Shoulder - [id number] Start: 07-16-2019 Screw Rsp 5mm 18 mm Bone Lock Glenoid Baseplate Shoulder - [id number] Start: 07-16-2019 Clinical Notes 12-19-2016 to 06-27-2025 Queta Tilley, PA - 11/07/2024 8:15 AM Lyndsay Pereira DO - 10/22/2024 10:20 AM ESTTelephone Encounter - Porfirio Hamilton MA - 10/17/2024 3:24 PM Camryn Blakely, PT - 10/08/2024 10:15 AM EST Note Date & Type Note Facility 06-27-2025 Note [place] Cardiology - [facility] Subjective Amina Lim is a 80 y.o. 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 He states that he is physically very active. He walks his dog every day more than once and he is always busy with projects around his house in his camper without any symptoms of chest pain or shortness of breath. He denies orthopnea or paroxysmal nocturnal dyspnea or dizziness or palpitations or legs edema or legs discomfort on exertion. He has sleep apnea and he wears CPAP every night. 10/28/2024 Patient has history of paroxysmal atrial tachycardia [...] History: Procedure Laterality Date APPENDECTOMY PROSTATE SURGERY REPLACEMENT TOTAL KNEE ONCOLOGIC SHOULDER SURGERY Family History Problem Relation Name Age of Onset Other (pacemaker) Father Lupus Father Social History Tobacco Use Smoking status: Never Passive exposure: Current Smokeless tobacco: Never Substance Use Topics Alcohol use: Yes Comment: occasional Drug use: Never Allergies Allergies Allergen Reactions Other Other DENIES METAL ALLERGY Oxycodone-Acetaminophen Other DIFFICULTY SLEEPING Medications Current Outpatient Medications: aspirin 81 mg EC tablet, Take 81 mg by mouth in the morning., Disp: , Rfl: ferrous sulfate 325 (65 Fe) MG tablet, Take 65 mg by mouth 2 times daily., Disp: , Rfl: irbesartan (Avapro) 150 mg tablet, Take 150 mg by mouth in the morning., Disp: , Rfl: spironolactone (Aldactone) 50 mg tablet, Take 50 mg by mouth in the morning., Disp: , Rfl: tamsulosin (Flomax) 0.4 mg 24 hr capsule, Take 0.8 mg by mouth in the morning., Disp: , Rfl: Objective Visit Vitals BP 136/68 (BP Location: Right arm, Patient Position: Sitting) Pulse 69 Ht 1.803 m (5' 11 ) Wt 91.2 kg (201 lb) SpO2 98% BMI 28.03 kg/m??? Smoking Status Never BSA 2.14 m??? Physical exam: GENERAL: alert and oriented x3, [...] appropriate mood, affect, and judgement. Recent Labs 06/20/2025 Triglyceride 113, cholesterol 208, HDL 51, LDL 135 Sodium 139, potassium 4.4, BUN 22, creatinine 1.11, glucose 105, GFR above 60, calcium 9.2 Total bilirubin 0.5, AST 18, ALT 26, alk phos 43, total protein 7.3, albumin 3.9 next line TSH 3.038, free T44.2 White blood count 7.8, hemoglobin 13.4, hematocrit 39.2, platelets 194 HbA1c 5.5% Vitamin D 86 10/17/2024 White blood count 9.5, hemoglobin 12.6, hematocrit 38.5, platelets 233 next l (more content not included)... [facility] 11-07-2024 History of Present illness Narrative Images from the original note were not included. HISTORY OF PRESENT ILLNESS: POST OP PT Amina Lim is an 79 y.o. @ male. (EST PT) S/P (L) TKA 08/22/24 (11 WKS ) XRAYS DONE 10/03/24 IN [facility] FINISHED PT @[facility] 10/18/24 DOING WELL. S/P EXTENDED PT X2 [...] requiring urgent evaluation. documented in this encounter [facility] 10-28-2024 Note [place] Cardiology - [facility] Subjective Amina Lim is a [...] used to be (more content not included)... [facility] 10-22-2024 History of Present illness Narrative Images from the original note were not included. Department of Kidney Medicine Medical Specialties [place] [facility] SERVICE DATE: 10/22/2024 SERVICE TIME: 10:27 [...] renal function. Following with cardiology at the [facility]. No longer taking NSAIDs after his bilateral [...] Take 1 tablet by mouth once daily. Sylua-7-EIJ-EPA-Fish Oil (FISH OIL) 1,000 mg (120 mg-180 mg) cap Take 1 g by mouth once daily. lovastatin (MEVACOR) 20 mg tablet Take 20 mg by mouth daily at bedtime. multivitamin (MULTIPLE VITAMINS) tablet Take 1 tablet by mouth once daily. Saw [place] 160 mg capsule Take 160 mg by [...] which included preparing to see the patient, [id number] patient care, completing clinical documentation, and obtaining and/or reviewing separately obtained history. Visit [facility]X Inherent E&M Associated with [facility] Sr[facility] ([id number]) SIGNATURE: Lyndsay Salgado DO [facility] PATIENT NAME: Amina Lim DATE: October 22, 2024 TIME: 10:48 AM CC: PRIMARY CARE PHYSICIAN: Narciso Bullock MD documented in this encounter [facility] 10-22-2024 Note HNO ID: [id number] Author: LYNDSAY SALGADO, DO Service: ? Author Type: Physician Type: Progress Notes Filed: 10/22/2024 10:48 Note Text: Department of Kidney Medicine Medical Specialties [place] [facility] SERVICE DATE: 10/22/2024 SERVICE TIME: 10:27 [...] renal function. Following with cardiology at the [facility]. No longer taking NSAIDs after his bilateral [...] Take 1 tablet by mouth once daily. Zknqt-0-OPQ-EPA-Fish Oil (FISH OIL) 1,000 mg (120 mg-180 mg) cap Take 1 g by mouth once daily. lovastatin (MEVACOR) 20 mg tablet Take 20 mg by mouth daily at bedtime. multivitamin (MULTIPLE VITAMINS) tablet Take 1 tablet by mouth once daily. Saw [place] 160 mg capsule Take 160 mg by [...] effort. Lungs karely (more content not included)... [facility] 10-17-2024 Telephone encounter Note Images from the original note were not included. Orders printed and faxed to number provided below. Confirmation received. Pt notified DEVIN Angel Diana, DO [facility] [place] hour ago (2:17 PM) Please fax lab orders to [facility] and let patient know that I have ordered them. (Covering for Dr Salgado) Thanks Cassidy [facility] 10-17-2024 Miscellaneous Notes Images from the original note were not included. Orders printed and faxed to number provided below. Confirmation received. Pt notified DEVIN Angel Diana, DO [facility] [place] hour ago (2:17 PM) Please fax lab orders to [facility] and let patient know that I have [...] 10/22/24. Labs need to be faxed to [facility] @ [phone]. Call pt when done Danielle Blanchard documented in this encounter [facility] 10-17-2024 Telephone encounter Note Covering for Dr Salgado CKD lab work ordered Cassidy Arita DO October 17, 2024, 2:15 PM [facility] 10-17-2024 Telephone encounter Note ----- Message from RHODA Han sent at 10/17/2024 1:10 PM EST ----- Regarding: Lab orders for upcoming appt w/Dr. Salgado Contact: Patient is requesting labs for upcoming appt on 10/22/24. Labs need to be faxed to [facility] @ [phone]. Call pt when done Danielle Blanchard [facility] 10-08-2024 History of Present illness [...] stretch into flexion PROM; tibial extension mobs Nurse Clinician Goals: Increase ROM left knee to 0-110* [...] Physician Signature: Date: documented in this encounter [facility] 10-03-2024 History of Present illness Narrative [...] x 6 weeks documented in this encounter [facility] 10-03-2024 History of Present illness Narrative Images from the original note were not included. HISTORY OF PRESENT ILLNESS: POST OP PT Amina Lim is an 79 y.o. @ male. (EST PT) S/P (L) TKA 08/22/24 (6WKS). XRAYS DONE TODAY, 10/03/24 IN [facility] DOING WELL. CONTINUES TO HAVE SOME DISCOMFORT - TAKING PERCOCET 1/2 Q 6 HRS ; CONTINUES TO ICE. CONTINUES PHYSICAL THERAPY 2x WEEKLY @ [facility] - NOTES INCREASING ROM & STRENGTH. SOME [...] requiring urgent evaluation. documented in this encounter [facility] 09-23-2024 History of Present illness Narrative [...] x 6 weeks documented in this encounter [facility] 09-16-2024 History of Present illness Narrative [...] camping, dogs Employment retired 15 years from [employer] INTERVENTIONS: X ( ) manual therapy X 40/10 minutes therapeutic exercises for ROM and strengthening X ( ) minutes modalities: ice PT Assessment: No change in knee flexion/extension today. Did tolerate all exercise well in PT. Ice at home. Plan: PT 2-3x/weeks x 6 weeks documented in this encounter [facility] 09-11-2024 History of Present illness Narrative [...] camping, dogs Employment retired 15 years from [employer] INTERVENTIONS: X 20 minutes of manual therapy to increase ROM X 30 minutes therapeutic exercises for ROM and strengthening X 10 minutes modalities: ice PT Assessment: Therapy Diagnosis: s/p left TKA with weaknessk swelling and pain Nurse Clinician Goals: Increase ROM left knee to 0-110* [...] Physician Signature: Date: documented in this encounter [facility] 09-09-2024 History of Present illness Narrative Time In: 5:30 pm Time Out: 6:20 pm Supervised Time: 50 min Total Time: 50 min Evaluation Time: 20 min Visit Number: 1, Medicare, has used $132.70 toward Medicare cap Chief Complaint: Z96.652: s/p [...] camping, dogs Employment retired 15 years from [employer] INTERVENTIONS: X 30 minutes therapeutic exercises for ROM and strengthening X minutes modalities: ice, e-stim prn PT Assessment: Therapy Diagnosis: 2. 5 weeks post op left TKA Functional Limitations: Nurse Clinician Goals: Increase ROM left knee to 0-110* [...] Physician Signature: Date: documented in this encounter [facility] 09-05-2024 History of Present illness Narrative [...] - STARTING OUTPT THERAPY NEXT WEEK @ [facility]. NOTES INCREASING ROM & STRENGTH - USING [...] Valgus: negative Other Erythema: absent Scars: present ([place] present, removed, no dehiscence or drainage) Sensation: [...] left Z96.652 2. Post-operative pain G89.18 HYDROcodone-acetaminophen ([place]) 5-325 MG tablet PLAN: Assessment & Plan [...] requiring urgent evaluation. documented in this encounter [facility] 09-05-2024 Instructions LORELEI Soto - 09/05/2024 [...] wound pending recheck. documented in this encounter [facility] 08-29-2024 Telephone encounter Note Patient home PT notified us of need for post op pain rx refill. PDMP reviewed. [facility] 08-29-2024 Miscellaneous Notes Patient home PT notified us of need for post op pain rx refill. PDMP reviewed. documented in this encounter [facility] 08-21-2024 Telephone encounter Note Post op pain rx. PDMP reviewed [facility] 08-21-2024 Miscellaneous Notes Post op pain rx. PDMP reviewed documented in this encounter [facility] 08-14-2024 Telephone encounter Note Acknowledged, thank you. [facility] 08-14-2024 Miscellaneous Notes Acknowledged, thank you. Patient left vm to let us know he has been approved through medicare to have his LT TKA done on 08/22 with . documented in this encounter [facility] 08-14-2024 Telephone encounter Note Patient left vm to let us know he has been approved through medicare to have his LT TKA done on 08/22 with . [facility] 08-14-2024 Note XR BONE LENGTH STUDY Bone length evaluation History: Osteoarthritis, limb length and alignment, knee pain Comparison: None Findings: Standing frontal view of the bilateral lower extremities obtained from the iliac crest through the feet for limb length and alignment without marker device. Impression: Severe Arthritis, osteophytes, joint space narrowing Left knee shows [id number]-[id number] medial compartment arthritis with varus angulation measuring 4 degrees. Appropriate alignment of the right femoral-tibial angle with 2 degrees valgus and a unremarkable prosthesis of the knee Finalized by Micheal Johnson MD on 08/14/2024 5:58 AM [facility] 08-13-2024 History of Present illness Narrative Images [...] MG tablet Every 24 hours Iron Polysacch Glfwo-P32-RO (Poly-Iron 150 Forte) 150-0.025-1 MG capsule 1 [...] Ambulatory referral to Physical Therapy Iron Polysacch [id number] (Poly-Iron 150 Forte) 150-0.025-1 MG capsule Chlorhexidine Gluconate (Hibiclens) 4 % solution 2. Primary osteoarthritis of left knee M17.12 Ambulatory referral to Physical Therapy Iron Polysacch [id number] (Poly-Iron 150 Forte) 150-0.025-1 MG capsule Chlorhexidine [...] Bret fernando/ Dick. documented in this encounter [facility] 08-07-2024 History of Present illness Narrative Images from the original note were not included. HISTORY OF PRESENT ILLNESS: EST PT Amina Lim is an 79 y.o. @ male. (R) KNEE (EST PT) S/P (R) TKA 04/04/24 (17WKS 6DAYS) XRAYS, 05/15/24 IN [facility] NO MDP / PREDNISONE FINISHED THERAPY (10 SESSIONS) @ [facility] NO PAIN MGMT DOING WELL. CONTINUES HEP / RECUMBENT BIKE - NOTES GOOD ROM ; DENIES ANY WEAKNESS. DENIES ANY SWELLING. STATES HE IS VERY PLEASED WITH SURGERY. CONTINUES TO USE VOLTAREN GEL. (L) KNEE (EST PT) RECHECK (L) KNEE ; HERE TO DISCUSS SURGICAL OPTIONS XRAYS, STANDING AP 05/15/24 IN [facility] NO MRI NO MDP / PREDNISONE [...] years old, or requires discharged to a retirement facility, the patient may require to have additional inpatient hospital stay following the surgery. Physical therapy is contraindicated in this patient's case because of xomu-fm-srgq articulation of the patient's knee. El Stepanic, D.O. documented in this encounter [facility] 06-26-2024 History of Present illness Narrative Images from the original note were not included. HISTORY OF PRESENT ILLNESS: EST PT Amina Lim is an 79 y.o. @ male. (R) KNEE (EST PT ; LAST APPT W/ DICK) S/P (R) TKA 04/04/24 (11WKS 6DAYS) XRAYS, 05/15/24 IN [facility] NO MDP / PREDNISONE FINISHED THERAPY (10 SESSIONS) @ [facility] NO PAIN MGMT CONTINUES TO HAVE SOME DISCOMFORT - RATES 4-5/10 ON PAIN SCALE ; WORSE WITH PROLONGED ACTIVITY. FINISHED PHYSICAL THERAPY @ [facility], CONTINUES HEP - NOTES INCREASING ROM & [...] TO COMPENSATE XRAYS, STANDING AP 05/15/24 IN [facility] NO MRI NO MDP / PREDNISONE [...] I am acting as scribe for Dr. Ruiz/jeh, PLAN: Patient is pleased with his right [...] El Ruiz D.O. documented in this encounter [facility] 05-24-2023 History of Present illness Narrative [employer] NAVIGATION OUTREACH Action/[facility] [place] Support: Called pt to schedule an appt [...] 2023 9:52 AM documented in this encounter [facility] 05-16-2023 Instructions Lyndsay Salgado DO [...] have your physicians fax over your records [phone] Make an appointment with cardiology for slow [...] be greatly appreciated. documented in this encounter [facility] 05-16-2023 History of Present illness Narrative [facility] SERVICE DATE: 05/16/2023 [...] that he was previously following with a corn sheller that went over his labs every visit. States that his renal function was worsening and he was taken off a water pill that improved his renal function. His corn sheller stopped seeing patients in the office and [...] Take 1 tablet by mouth once daily. Fklhr-8-TRH-EPA-Fish Oil (FISH OIL) 1,000 mg (120 mg-180 mg) cap Take 1 g by mouth once daily. Lecithin 1,200 mg cap Take 1 capsule by mouth once daily. lovastatin (MEVACOR) 20 mg tablet Take 20 mg by mouth daily at bedtime. multivitamin (MULTIPLE VITAMINS) tablet Take 1 tablet by mouth once daily. Saw [place] 160 mg capsule Take 160 mg by [...] 16, 2023 TIME: 10:06 AM OFFICE NUMBER: [phone] CC: REFERRING PROVIDER: Narciso Bullock MD PRIMARY CARE PHYSICIAN: Narciso Bullock MD documented in this encounter [facility] 09-06-2022 Evaluation note Encounter Date [...] Dr. Bullock for NSAIDs alternative like Tramadol [employer] Other 12-08-2021 Evaluation note* Encounter Date Diagnosis [...] He did try Tylenol with no effect. [employer] Other 03-06-2017 History of Past illness Narrative* Problem Noted Date Diagnosed Date Resolved Date Primary osteoarthritis of left shoulder 12/19/2016 06/25/2019 Prostate cancer 07/05/2016 06/25/2019 Peyronie's disease 07/08/2009 9 documented as of this encounter (statuses as of 05/16/2023) [facility] History of Past illness Narrative* Problem Noted Date Diagnosed Date Resolved Date Primary osteoarthritis of left shoulder 12/19/2016 06/25/2019 Prostate cancer 07/05/2016 06/25/2019 Peyronie's disease 07/08/2009 9 documented as of this encounter (statuses as of 06/26/2023) [facility]* Diagnosis Chronic kidney disease, unspecified CKD stage- Primary Bradycardia Other specified cardiac dysrhythmias Generalized pain Anemia of renal disease Anemia in chronic kidney disease Primary hypertension Unspecified essential hypertension [facility] noteNo assessment information availableGerman Hospital Work Phone: Evaluation note* Diagnosis Acute pain of right knee- Primary History of right knee joint replacement Primary osteoarthritis of left knee documented in this encounter [facility]* Diagnosis Preop examination- Primary Unspecified pre-operative examination Primary osteoarthritis of left knee Eczema, unspecified type documented in this encounter [facility]* Diagnosis Post-operative pain- Primary Other acute postoperative pain documented in this encounter [facility]* Diagnosis S/P TKR (total knee replacement), left- Primary Post-operative pain Other acute postoperative pain documented [facility] encounter [facility]* Diagnosis Post-operative pain Other acute postoperative pain documented in this encounter [facility]* Diagnosis S/P total knee replacement, [...] of left knee documented in this encounter [facility]* Diagnosis Pre-operative clearance- [...] CKD (HCC)- Primary [facility]* Diagnosis Acute postoperative pain of left knee- Primary S/P total knee replacement, left documented in this encounter [facility] note* Diagnosis Pre-operative clearance- [...] specified cardiac dysrhythmias documented [facility] this encounter [facility]* Diagnosis S/P TKR (total knee replacement), left- Primary documented in this encounter [facility]* Diagnosis Encounter for other preprocedural examination [facility] Diagnosis Encounter for other preprocedural examination [facility] N[facility]ative - Reported* Type [...] HIS RIGHT EYE Hospitalization History see above [employer] Other History of Present illness Narrative* Shirlene [...] 2-3x/weeks x 6 weeks documented in this encounter[facility]it[facility] HealthcareInstructionsNot on filedocumented in this encounterTriHealth Bethes[facility] North HospitalReason for referral (narrative)* Diagnostic Procedure Only (Routine) - Pending Review Specialty Diagnoses / Procedures Referred By Ravi avendano Referred To Contact US IMAGING Diagnoses Chronic kidney disease, unspecified CKD stage Procedures US KIDNEY/BLADDER US RETROPERITONEAL REAL TIME W/IMAGE COMPLETE Lyndsay Salgado DO [address] [place] [address] [facility] Referral ID Status Reason Start Date Expiration Date Visits Requested Visits Authorized [id number] Pending Review Auto-Generat ed Referral 05/16/2023 06/14/2024 1 1 * Consult, Test, Treat (Routine) - Authorized Specialty Diagnoses / Procedures Referred By Contac t Referred To Contact Pain Management Diagnoses Generalized pain Procedures CONSULT TO PAIN MGT OFFICE/OUTPATIENT [facility] 60-74 MINUTES Lyndsay Salgado DO [address] [place] [address] Referral ID Status Reason Start Date Expiration Date Visits Requested Visits Authorized [id number] Authorized PCP Requested Referral 05/16/2023 05/15/2024 1 1 * Consult, Test, Treat (Routine) - Authorized Specialty Diagnoses / Procedures Referred By Contac t Referred To Contact Cardiology Diagnoses Bradycardia Procedures CONSULT TO CARDIOLOGY OFFICE/OUTPATIENT [facility] 60-74 MINUTES Lyndsay Salgado DO [address] [place] [address] Referral ID Status Reason Start Date Expiration Date Visits Requested Visits Authorized [id number] Authorized PCP Requested Referral 05/16/2023 05/15/2024 1 1 [facility] for visit Narrative* Rehabilitation - Outpatient (Routine) - Authorized Specialty Diagnoses / Procedures Referred By Contac t Referred To Contact Physical Therapy Diagnoses S/P total knee replacement, left Procedures ND OFFICE/OUTPATIENT [facility] Queta Tilley PA [address] [address] Phone: tel: fax: Seth Ragland, PT [address] [place] [address] Phone: tel: fax: Referral ID Status Reason Start Date Expiration Date Visits Requested Visits Authorized [id number] Authorized Consult and Treat 08/30/2024 02/26/2025 10 10 [facility] for visit Narrative* Rehabilitation - Outpatient (Routine) - Authorized Specialty Diagnoses / Procedures Referred By Contac t Referred To Contact Physical Therapy Diagnoses S/P total knee replacement, left Procedures ND OFFICE/OUTPATIENT [facility] Queta Tilley PA [address] [facility] [address] [place] [address] Phone: tel: fax: Seth Ragland, PT [address] [place] [address] Phone: tel: fax: Referral ID Status Reason Start Date Expiration Date Visits Requested Visits Authorized [id number] Authorized Consult and Treat 08/30/2024 10/15/2024 10 10 [facility] for [facility] Narrative* Rehabilitation - Outpatient (Routine) - Authorized Specialty Diagnoses / Procedures Referred By Ravi t Referred To Contact Physical Therapy Diagnoses Presence of left artificial knee joint Procedures ND MANUAL THERAPY TQS [facility] EACH 15 MINUTES Queta Tilley PA [address] [facility] [address] [place] [address] Phone: tel: fax: Seth Ragland, PT [address] [place] [address] Phone: tel: fax: Referral ID Status Reason Start Date Expiration Date Visits Requested Visits Authorized [id number] Authorized Consult and Treat 10/16/2024 04/14/2025 5 5 [facility] Healthcare Summary Purpose Family History No Family History Records Found Relationship Condition Age at Onset Recorded Date/T bridger father Heart disease Unknown Unknown family member Unknown Not Specified Diabetes mellitus Unknown Malignant neoplasm Unknown sister Heart disease Unknown Advance Directives No Advanced Directives Records Found Advance Directive Response Recorded Date/ Time Advance Directives No August 11, 2020 1:09pm Hospital Course Note HNO ID: [id number] Author: Jae mcgrath (Raquel Osullivan MD Service: [...] section and content) DATE CREATED AUTHOR 12/10/2018 [facility] DATE CREATED AUTHOR AUTHOR'S ORGANIZ ATION 07/18/2019 [facility] DATE CREATED AUTHOR AUTHOR'S ORGANIZ ATION 07/01/2020 [facility] DATE CREATED AUTHOR AUTHOR'S ORGANIZ ATION 01/23/2021 [facility] DATE CREATED AUTHOR AUTHOR'S ORGANIZ ATION 03/24/2023 [facility] DATE CREATED AUTHOR AUTHOR'S ORGANIZ ATION 03/20/2024 [facility] DATE CREATED AUTHOR AUTHOR'S ORGANIZ ATION 08/15/2024 [facility] DATE CREATED AUTHOR AUTHOR'S ORGANIZ ATION 10/25/2024 [facility] DATE CREATED AUTHOR AUTHOR'S ORGANIZ ATION 11/09/2024 [facility] DATE CREATED AUTHOR AUTHOR'S ORGANIZ ATION 07/02/2025 [facility] REASON FOR VISIT (unrecogniz ed section and [...] or prosecute any alcohol or drug abuse patient.[facility] CenterIn the event this information is protected by the Federal Confidentiality of Alcohol and Drug Abuse Patient Records regulations: The Federal rules restrict any use of the information to criminally investigate or prosecute any alcohol or drug abuse patient.[facility] CenterIn the event this information is protected by the Federal Confidentiality of Alcohol and Drug Abuse Patient Records regulations: The Federal rules restrict any use of the information to criminally investigate or prosecute any alcohol or drug abuse patient.[facility] CenterIn the event this information is protected by the Federal Confidentiality of Alcohol and Drug Abuse Patient Records regulations: The Federal rules restrict any use of the information to criminally investigate or prosecute any alcohol or drug abuse patient.[facility] CenterIn the event this information is protected by the Federal Confidentiality of Alcohol and Drug Abuse Patient Records regulations: The Federal rules restrict any use of the information to criminally investigate or prosecute any alcohol or drug abuse patient.[facility] Care Teams (unrecognized sec tion and content) 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 Relationship Specialty Start Date End Date Narciso Bullock MD PCP - General 07/06/09 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 Relationship Specialty Start Date End Date Narciso Bullock MD PCP - General 07/06/09 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 Relationship Specialty Start Date End Date Narciso [...] March 18, 2024 End: March 18, 2024 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 Relationship Specialty Start Date End Date Narciso Bullock MD [address] [place] [address] PCP - General Family Medicine 09/25/23 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 Relationship Specialty Start Date End Date Narciso Bullock MD [address] [place] [facility] [address] PCP - General Family Medicine 09/25/23 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 Relationship Specialty Start Date End Date Narciso Bullock MD [address] [place] [facility] [address] PCP - General Family Medicine 09/25/23 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 Relationship Specialty Start Date End Date Narciso Bullock MD [address] [facility], [facility] PCP - General Family Medicine 09/25/23 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 Relationship Specialty Start Date End Date Narciso Bullock MD [address] [facility], [facility] PCP - General Family Medicine 09/25/23 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 Relationship Specialty Start Date End Date Narciso Bullock MD [address] [place] [facility] [address] PCP - General Family Medicine 09/25/23 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 Relationship Specialty Start Date End Date Narciso Bullock MD [address] [facility], [facility] PCP - General Family Medicine 09/25/23 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 Relationship Specialty Start Date End Date Narciso Bullock MD [address] [place] [facility] [place] [address] PCP - General Family Medicine 09/25/23 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 Relationship Specialty Start Date End Date Narciso Bullock MD [address] [place] [facility] [address] PCP - General Family Medicine 09/25/23 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 Relationship Specialty Start Date End Date Narciso Bullock MD [address] [place] [facility] [address] PCP - General Family Medicine 09/25/23 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 Relationship Specialty Start Date End Date Narciso Bullock MD [address] [place] [facility] [address] PCP - General Family Medicine 09/25/23 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 Relationship Specialty Start Date End Date Narciso Bullock MD [address] [place] [facility] [place] [address] PCP - General Family Medicine 09/25/23 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 Relationship Specialty Start Date End Date Narciso Bullock MD [address] [place] [facility] [address] PCP - General Family Medicine 09/25/23 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 Relationship Specialty Start Date End Date Narciso Bullock MD [address] [place] [facility] [address] PCP - General Family Medicine 09/25/23 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 Relationship Specialty Start Date End Date Narciso Bullock MD [address] [place] [facility] [address] PCP - General Family Medicine 09/25/23 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 Relationship Specialty Start Date End Date Narciso Bullock MD [address] [place] [facility] [place] [address] PCP - General Family Medicine 09/25/23 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 Relationship Specialty Start Date End Date Narciso Bullock MD [address] [place] [facility] [place] [address] PCP - General Family Medicine 09/25/23 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 Relationship Specialty Start Date End Date Narciso Bullock MD [address] [place] [facility] [place] [address] PCP - General Family Medicine 09/25/23 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 Relationship Specialty Start Date End Date Narciso Bullock MD [address] [place] [facility] [address] PCP - General Family Medicine 09/25/23 [employer]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 Relationship Specialty Start Date End Date Narciso Bullock MD PCP - General 07/06/09 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 Relationship Specialty Start Date End Date Narciso Bullock MD [address] [place] [facility] [address] PCP - General Family Medicine 09/25/23 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 Relationship Specialty Start Date End Date Narciso Bullock MD PCP - General 07/06/09 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 Relationship Specialty Start Date End Date Narciso Bullock MD [address] [place] [facility] [address] PCP - General Family Medicine 09/25/23 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 Relationship Specialty Start Date End Date Narciso Bullock MD [address] [facility], [facility] PCP - General Family Medicine 08/13/24 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 Relationship Specialty Start Date End Date Narciso Bullock MD [address] [facility] [place] [address] PCP - General Family Medicine 08/13/24 [employer]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 [employer] provides no warranty or guarantee of the accuracy or completeness of information in this document.
[2025-07-23 08:40] LABS: Free T3 2.67 pg/mL (2.18-3.98); Thyroid Stimulating Hormone 4.089 uIU/mL (0.358-3.740)
== END 2025-07-23 07:42 | disposition home or self-care (01) ==
LOC: LAB 07:43
PROVIDERS: PCP Family Medicine; Visit Provider Family Medicine
DX: R94.6 Abnormal results of thyroid function studies (principal)
CPT/HCPCS: 36415; 84436; 84443; 84481

== ENCOUNTER 2025-08-25 09:43 | Outpatient (OUT) | payer MEDICARE, OTHER, SELFPAY ==
--- OUTSIDE RECORDS SUMMARY | 2025-08-25 09:50 | XMS_ITS | Clinical Summary ---
Author Organization [facility] Address [address] [address] Care Team Providers Care Major Gifts Manager Name Role Phone Jadon Duckworth MD Primary Care Provider [phone] Allergies Active AllergyReactionsCriticalityNoted ZppwPthxqutqGnknuJhhha60/29/2024 DENIES METAL ALLERGY Oxycodone-GqlwaccptsyzzWvase30/29/2024 DIFFICULTY SLEEPING Medications MedicationSigDispense QuantityRefillsLast FilledStart DateEnd DateStatus aspirin 81 mg EC tablet Take 81 mg by mouth in the morning.07/16/2019Active spironolactone (Aldactone) 50 mg tablet Take 50 mg by mouth in the morning.Active tamsulosin (Flomax) 0.4 mg 24 hr capsule Take 0.8 mg by mouth in the morning.09/30/2016Active ferrous sulfate 325 (65 Fe) MG tablet Take 65 mg by mouth 2 times daily.Active irbesartan (Avapro) 150 mg tablet Take 150 mg by mouth in the morning.12/08/2023ctive Active Problems ProblemNoted DateDiagnosed DateNonrheumatic aortic (valve) geuqpqbt63/12/2025 Acute postoperative pain of left knee09/11/2024ftercare following right knee joint replacement qfgifsv7204/22/2024resence of artificial knee joint, right 04/22/2024rthritis of right knee03/20/20240507Nhplwx68/03/4992Zqzhjrx86/18/2023 10/02/2023enign prostatic hyperplasia with urinary tguhxhujamu20/22/2023 06/06/2023History of malignant neoplasm of gtxognda50Status post replacement of left shoulder jointEssential (primary) fjbomvruhqvw78 Overview (06/06/2023): Last Assessment & Plan: Assessment: stable on medication to take morning of surgery 129/63 Assessment & Plan (06/21/2023 12:43 PM EDT): - stable, continue medications Glenohumeral arthritis, righthronic kidney disease, stage III (moderate) Overview (06/06/2023): Last Assessment & Plan: Assessment: Follows with Nephrology Assessment & Plan (06/21/2023 1:04 PM EDT): -cr 1.47, gfr 49 as of 05/2023 -sees nephrology Cmswxzvqtkxsny92 Overview (06/06/2023): Last Assessment & Plan: Assessment: stable on medication Assessment & Plan (06/21/2023 1:04 PM EDT): -ct statin S/p reverse total shoulder wfnpaxskinbl66radycardia Assessment & Plan (06/21/2023 1:03 PM EDT): - asymptomatic - 30-day event monitor to rule out significant bradycardia/AV blocks -treadmill stress for NSVT and to rule out chronotropic incompetence SVT (supraventricular tachycardia) Assessment & Plan (06/21/2023 1:06 PM EDT): -episodes of SVT on holter -they appear like atach -30d monitor Resolved Problems ProblemNoted DateDiagnosed DateResolved RqvxSxklfrtr3010/25/2024Shoulder pain/07/2025Murmur, heart06/27/2025 Assessment & Plan (06/21/2023 1:03 PM EDT): Patient states he was told he has a heart mumur -no obvious murmur heard on exam, will order echo to rule out structural/valvular abnormalities NSVT (nonsustained ventricular tachycardia)10/28/2024 Assessment & Plan (06/21/2023 1:05 PM EDT): -no BB d/t bradycardia at baseline -stress test to rule out cad Encounters DateTypeDepartmentCare RjjeXxffrxorizy12/12/2025 9:40 AM EDTOffice Visit [facility] [place] [address] [place] [phone] Ashlyn Uribe MD Nonrheumatic aortic (valve) stenosis (Primary Dx); Bradycardia; SVT (supraventricular tachycardia); Essential (primary) hypertension; Pure hypercholesterolemia; Stage 3a chronic kidney disease (CMS/HCC)from Last 3 Months Family History Medical HistoryRelationNameCommentsLupusFatherpacemakerFatherRelationNameStatus CommentsFatherDeceasedMotherDeceased Social History Tobacco UseTypesPacks/DayYears UsedDateSmoking Tobacco: NeverPassive Smoke Exposure: CurrentSmokeless Tobacco: Never Tobacco Cessation:Counseling Given: Not Answered Alcohol UseStandard Drinks/WeekCommentsYes0 (1 standard drink = 0.6 oz pure alcohol)occasionalUT Safety & EnvironmentAnswerDate RecordedFear of Current or Ex-PartnerNot on file12/07/2023Emotionally AbusedNot on file12/07/2023hysically AbusedNot on file12/07/2023Sexually AbusedNot on 12/07/2023hysically or Sexually AbusedNot on file12/07/2023Sex and Gender InformationValueDate Recorded Sex Assigned at ScssvYnov61/08/2025 1:38 PM EDTLegal LhxAqqc9304/13/2022 11:52 PM EDTGender WnfeerekTlhd07/08/2025 1:38 PM EDTSexual OrientationHeterosexual or Eblqvxzp45/08/2025 1:38 PM EDT Last Filed Vital Signs Vital SignReadingTime TakenCommentsBlood Fproukfm806/68006/27/2025 9:39 AM EDT Mgxfa741406/27/2025 9:39 AM EDTTemperature--Respiratory Rate--Oxygen Pyhpfmcyee24% 06/27/2025 9:39 AM EDTInhaled Oxygen Concentration--Ypmvjl77.2 kg (201 lb) 06/27/2025 9:39 AM PHEClgbfm586.3 cm (5' 11 )06/27/2025 9:39 AM EDTBody Mass Index28.03006/27/2025 9:39 AM EDT Plan of Treatment Health MaintenanceDue DateLast DoneCommentsMedicare Annual Wellness (AWV) 1946Depression Lhwvzcvws26/11/1958Adult Xuwcpam2704/25/1968Zoster Vaccines (1 of 2)1996Fall Risk Zqrnfjsnu79/11/2011COVID-19 Vaccine ( season)503/, 12/17/2020Influenza Vaccine (#1)2025 07/26/2021, 08/27/2020, 08/01/2017, Additional history existsPneumococcal Vaccine: 50+ BbxamEroultvlz74/06/2018, 08/11/2017, 11/16/2016, Additional history existsHIB VaccinesAged OutNo longer eligible based on patient's age to complete this topicHPV VaccinesAged OutNo longer eligible based on patient's age to complete this topicIPV VaccinesAged OutNo longer eligible based on patient's age to complete this topicMeningococcal B VaccineAged OutNo longer eligible based on patient's age to complete this topicMeningococcal VaccineAged OutNo longer eligible based on patient's age to complete this topicRotavirus Vaccines Aged OutNo longer eligible based on patient's age to complete this topic Insurance Care Teams Team MemberRelationshipSpecialtyStart Date Jadon Duckworth MD [address] [place], [place] [address] [address] [facility] - [facility]06/06/23
--- OUTSIDE RECORDS SUMMARY | 2025-08-25 09:50 | XMS_ITS | Clinical Summary ---
Author Organization [facility] Address [address] [place] [address] Care Team Providers Care Stone Processing Machine Operator Name Role Phone Jadon Duckworth MD Primary Care Provider [phone] Allergies No known active allergies Medications MedicationSigDispense QuantityRefillsLast FilledStart DateEnd DateStatus spironolactone (ALDACTONE) 50 mg tablet Take 50 mg by mouth once daily.Active diclofenac (VOLTAREN ARTHRITIS PAIN) 1 % topical gel Apply to affected area two times a day.Active tamsulosin (FLOMAX) 0.4 mg Take 1 capsule by mouth two times a day.5Active irbesartan (AVAPRO) 150 mg tablet Take 1 tablet by mouth once daily.5Active ferrous sulfate 325 mg (65 mg iron) tablet Take 1 tablet by mouth two times a day.5Active Active Problems ProblemNoted DateDiagnosed DateShoulder pain07/16/2019Glenohumeral arthritis, right12/10/2018Status post replacement of left shoulder joint12/10/2018Essential (primary) iircztslhdtu16/29/2018 Assessment & Plan (06/25/2019 1:32 PM EDT): Assessment: stable on medication to take morning of surgery 129/63 Primary osteoarthritis of right ospjvbas74/14/2018Chronic kidney disease, stage III (moderate)11/18/2017 Assessment & Plan (06/25/2019 1:33 PM EDT): Assessment: Follows with Nephrology Other ijimwhambbqsqy97/06/2017 Assessment & Plan (06/25/2019 1:33 PM EDT): Assessment: stable on medication S/p reverse total shoulder ojryuenoiozc50/31/2017 Resolved Problems ProblemNoted DateDiagnosed DateResolved DatePrimary osteoarthritis of left itzejtnc92/06/Prostate itkvrj53/20/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/ Immunizations ImmunizationAdministration DatesNext DueCOVID-19 original vaccine, age 12+ yr, monovalent (SCHAD - PURPLE TOP)01/07/2021,1pneumococcal polysaccharide (PPV23) vaccine, 23 valent (PNEUMOVAX 23)11/16/2016 Family History Medical HistoryRelationCommentsCancerMaternal Auntpossibly colon cancerBreast CancerMotherRelationStatusCommentsMaternal AuntMother Social History Tobacco UseTypesPacks/DayYears UsedDateSmoking Tobacco: NeverSmokeless Tobacco: Never Tobacco Cessation:Counseling Given: Not Answered Alcohol UseStandard Drinks/WeekCommentsYes0 (1 standard drink = 0.6 oz pure alcohol)2 drinks every other day, maybe 3. beer.PHQ-2AnswerDate RecordedPHQ2 Shtid168Area Deprivation IndexAnswerDate RecordedNational Score (1-100), lower number is lower rbkx986705/16/2023State Score (1-10), lower number is lower xytb6293Data from: https://www.neighborhoodatlas.medicine.[facility].edu/. Last address used for bmeviefhmib[address]05/16/2023Sex and Gender InformationValue Date RecordedSex Assigned at JekgkRdew24/03/2019 4:46 PM EDTLegal SexMale 09/16/2012 8:22 AM ESTGender ShwbyudmVmkc64/03/2019 4:46 PM EDTSexual OrientationNot on file Last Filed Vital Signs Vital SignReadingTime TakenCommentsBlood Momfomln701/6901 10:21 AM EST Zmfkk073710/22/2024 10:21 AM XPSJzhdqqvzfav14.8 ??C (98.2 ??F)07/17/2019 7:32 AM EDTRespiratory Bizh9353 7:32 AM EDTOxygen Qdodyzlwdk31%07/17/2019 7:32 AM EDTInhaled Oxygen Concentration--Ctppya65.5 kg (203 lb 14.8 oz)10/22/2024 10:21 AM KJMZoowbq944.1 cm (5' 10.51 )10/22/2024 10:21 AM ESTBody Mass Index 28.8401 10:21 AM EST Plan of Treatment Health MaintenanceDue DateLast DoneCommentsAnnual PCP Team Chronic Disease Visit 1964Anxiety Xzjlhevvf66/11/1964Depression Ekrnsdicw24/11/1964DTaP,Tdap,Td Vaccine (1 - Tdap)1965Shingrix Vaccine (1 of 2)1996Medicare Annual Wellness Visit04/15/2011RSV Vaccine (1 - 1-dose 75+ series)2021dvance Directive Uwqamgbqpq25/01/2025Covid-19 Vaccine ( - season)2025 01/07/2021, 12/17/2020Influenza Vaccine (#1), 08/27/2020, 07/16/2018, Additional history existsHemoglobin/Gkbnfouimk89, 03/18/2024, 06/14/2023, Additional history existsSerum Scnosjirxr22/29/2025 08/13/2024, 03/18/2024, 06/14/2023, Additional history existsDiabetes Screening , 03/18/2024, 07/17/2019, Additional history exists Pneumococcal Vaccine: 50+Kxlfqwjyi23/06/2018, 08/11/2017, 11/16/2016, Additional history exists Medical Devices ImplantedTypeAreaManufacturerDevice IdentifierShelf Expiration DateModel / Serial / LotBaseplate Rsp 6.5mm Wiggins 30mm Glenoid - [id number] Implanted:Qty: [facility]plantLeft: Bone - Shoulder DJO INC//[id number] / / [id number] Implant - [id number] Implanted:Qty: 1 on [facility]02/[facility]ImplantLeft: Bone - Shoulder DPUBFH74/[id number] / / [id number]:CHECK PRICEHumeral Insert Socket 36 M + 4 Implanted:Qty: 1 on 07/16/2019 by Anshu Thomas MD at [facility] ImplantRight: Bone - ShoulderDJO INC//[id number] / / [id number] Rsp 36mm Neutral Glenoid Retain Screw - [id number] Implanted:Qty: 1 on 03/02/2017 at [facility] ShoulderLeft: Bone - ShoulderDJO INC03//[id number] / / [id number] Rsp 36mm Standard Socket Semiconstrain Humerus - [id number] Implanted:Qty: 1 [facility]02/[facility] - ShoulderDJO INC//[id number] / / [id number] Rsp 36mm Neutral Glenoid Retain Screw - [id number] Implanted:Qty: 1 on 07/16/2019 by Anshu Thomas MD at [facility] ShoulderRight: Bone - ShoulderDJO INC//[id number] / / [id number] Altivate Djo Surgical 12 Standard 108mm Humeral Sterile Shoulder - [id number] Implanted:Qty: 1 on 07/16/2019 by Anshu Thomas MD at [facility] ShoulderRight: Bone - ShoulderDJO INC05//[id number] / / [id number] Rsp P2 30mm Glenoid Sterile - [id number] Implanted:Qty: 1 on 07/16/2019 [facility] Right: Bone - ShoulderDJO INC07//[id number] / / [id number] Rsp 5mm 30mm Bone Lock Glenoid Baseplate Shoulder - [id number] Implanted:Qty: [facility] - ShoulderDJO INC04/12/[id number] / / [id number] Rsp 5mm 30mm Bone Lock Glenoid Baseplate Shoulder - [id number] Implanted:Qty: [facility] - ShoulderDJO INC04//[id number] / / [id number] Rsp 5mm 18mm Bone Lock Glenoid Baseplate Shoulder - [id number] Implanted:Qty: 1 [facility]02/[facility] - ShoulderDJO INC04//[id number] / / [id number] Rsp 5mm 18mm Bone Lock Glenoid Baseplate Shoulder - [id number] Implanted:Qty: 1 on [facility]02/2017 [facility] - ShoulderDJO INC04//[id number] / / [id number] Rsp 5mm 22mm Bone Lock Glenoid Baseplate Shoulder - [id number] Implanted:Qty: 1 on 07/16/2019 by Anshu Thomas MD at [facility] Right: Bone - ShoulderDJO INC09//[id number] / / [id number] Rsp 5mm 26mm Bone Lock Glenoid Baseplate Shoulder - [id number] Implanted:Qty: 1 on 07/16/2019 by Anshu Thomas MD at [facility] Right: Bone - ShoulderDJO INC07//[id number] / / [id number] Rsp 5mm 26mm Bone Lock Glenoid Baseplate Shoulder - [id number] Implanted:Qty: 1 on 07/16/2019 by Anshu Thomas MD at [facility] Right: Bone - ShoulderDJO INC06//[id number] / / [id number] Rsp 5mm 18mm Bone Lock Glenoid Baseplate Shoulder - [id number] Implanted:Qty: 1 on 07/16/2019 by Anshu Thomas MD at [facility] Right: Bone - ShoulderDJO [id number] / / [id number] Procedures Procedure NamePriorityDate/TimeAssociated DiagnosisCommentsBLOOD COUNT COMPLETE LFMGPCJPVTqeocbi26/30/2023 2:13 PM EDT Chronic kidney disease, unspecified CKD stage RENAL FUNCT WDVIdzvcsi84/30/2023 2:13 PM EDT Chronic kidney disease, unspecified CKD stage BASIC METABOLIC TINQEYIAR94/02/2019 6:23 AM EDT from Last 3 Months or Most Recently Relevant to Health Maintenance Results * (ABNORMAL) RENAL FUNCTION PANEL (06/14/2023 2:13 PM EDT)ComponentValueRef RangeTest MethodAnalysis TimePerformed AtPathologist SignatureAlbumin4.63.9 - 4.9 g/dL06/14/2023 2:54 PM EDTNORTSCHOOLCRAFT [facility]ORIAL [facility] LABCalcium, Total9.58.5 - 10.2 mg/dL06/14/2023 2:54 PM EDTCITY [facility] LABPhosphorus3.32.7 - 4.8 mg/dL06/14/2023 2:54 PM EDTCITY [facility] UKNInwirld626(H)74 - 99 mg/dL06/14/2023 2:54 PM EDT [facility] LABComment: The [place] Diabetes Association (ADA) provides guidance for cutoff values for fasting glucose andrandom glucose. The ADA defines fasting as no [...] Standards of Medical Care in Diabetes 2016, [place] Diabetes Association. Diabetes Care. 2016.39(Suppl 1). BUN25(H)9 - 24 mg/dL06/14/2023 2:54 PM EDTCITY [facility]OS[facility] LAB Creatinine1.47(H)0.73 - 1.22 mg/dL06/14/2023 2:54 PM [facility] FOGTrhmqe052(L)136 - 144 mmol/L06/14/2023 2:54 PM EDTC[facility] LABPotassium4.23.7 - 5.1 mmol/L06/14/2023 2:54 PM EDT [facility] UCBRvqxgpuh4464 - 105 mmol/L06/14/2023 2:54 PM [facility] NZLAD46088 - 30 mmol/L06/14/2023 2:54 PM [facility]WE[facility] LABAnion Gap99 - 18 mmol/L06/14/2023 2:54 PM [facility] LABEstimated Glomerular Filtration Rate 49(L)>=60 mL/min/1.73m 06/14/2023 2:54 PM [facility] LABComment:Estimated Glomerular Filtration Rate (eGFR) is calculated using the 2020 CKD-EPI creatinine equation. This equation utilizes serum creatinine, sex, and age as parameters. The creatinine assay has traceable calibration to isotope dilution- mass spectrometry. Refer to KDIGO guidelines for clinical interpretation. In patients with unstable renal function, e.g. those with acute kidney injury, the eGFRmay not accurately reflect actual GFR.Specimen (Source)Anatomical Location / LateralityCollection Method / VolumeCollection TimeReceived TimeBloodBLOOD SPECIMEN / UnknownVenipuncture / Qdpaqor7506/14/2023 2:13 PM EDT06/14/2023 2:13 PM EDT Narrative Authorizing ProviderResult TypeResult StatusMarcelino Salgado DOLABORATORYFinal ResultPerforming OrganizationAddressCity/State/ZIP CodePhone Number [facility] [address] [place] [id number] * CBC (06/14/2023 2:13 PM EDT)ComponentValueRef RangeTest MethodAnalysis Time Performed AtPathologist SignatureWBC9.803.70 - 11.00 k/06/14/2023 2:18 PM EDTNORTSCHOOLCRA[facility] LABRBC4.424.20 - 6.00 m/06/14/2023 2:18 PM EDTNORTSCHOOLCRA[facility] KYCJaggviimjj71.613.0 - 17.0 g/dL 06/14/2023 2:18 PM EDTNORTSCHO[facility]CRA[facility] TZHErsttbuhdb46.139.0 - 51.0 %06/14/2023 2:18 PM EDTNORTS[facility]CRA[facility] GYBUSF59.780.0 - 100.0 SC06/14/2023 2:18 PM EDTNORTSCHO[facility]CRA[facility] WSBGJE29.8 26.0 - 34.0 pg06/14/2023 2:18 PM EDTNORTSCHOOLCRA[facility] LABMCHC 33.930.5 - 36.0 g/dL06/14/2023 2:18 PM EDTNOSISTERSVILLE [facility] LABRDW-CV13.811.5 - 15.0 %06/14/2023 2:18 PM EDTCITY [facility]ITAL LABPlatelet Nmvea117597 - 400 k/06/14/2023 2:18 PM EDTCITY [facility]ITAL LABMPV9.49.0 - 12.7 SC06/14/2023 2:18 PM EDTC[facility] LABAbsolute nRBC<0.01<0.01 k/06/14/2023 2:18 PM EDT [facility] LABSpecimen (Source)Anatomical Location / LateralityCollection Method / VolumeCollection TimeReceived TimeBloodBLOOD SPECIMEN / UnknownVenipuncture / Dcdsudh2006/14/2023 2:13 PM EDT06/14/2023 2:13 PM EDT Narrative Authorizing ProviderResult TypeResult StatusRhakiko Salgado DOLABORATORYFinal ResultPerforming OrganizationAddressCity/State/ZIP CodePhone Number [facility] [address] [place] [address] * (ABNORMAL) BASIC METABOLIC PANEL (AK,AV,EU,FV,HL,BLAINE,MM,SP) (07/17/2019 6:23 AM EDT)ComponentValueRef RangeTest MethodAnalysis TimePerformed AtPathologist WswfekznlQniiatr333(H)65 - 100 mg/dL07/17/2019 7:20 AM EDTEUCLID UMPRBNHJAST13 8 - 25 mg/dL07/17/2019 7:20 AM EDTEUCLID HOSPITALCreatinine1.230.7 - 1.4 mg/dL 07/17/2019 7:20 AM EDTEUCLID QJNBBYLOByqxcj360734 - 146 mmol/L1 7:20 AM EDTEUCLID HOSPITALPotassium4.13.5 - 5.0 mmol/L1 7:20 AM EDTEUCLID DUTWQVWSAwmgnuue75763 - 110 mmol/L1 7:20 AM EDTEUCLID HIQAIOWJDL870 (L)23 - 32 mmol/L1 7:20 AM EDTEUCLID HOSPITALAnion Zlo118 - 15 mmol/L 07/17/2019 7:20 AM EDTEUCLID HOSPITALCalcium8.4(L)8.5 - 10.5 mg/dL07/17/2019 7:20 AM EDTEUCLID HOSPITALSpecimen (Source)Anatomical Location / Laterality Collection Method / VolumeCollection TimeReceived TimeBlood specimen (specimen)BLOOD SPECIMEN / Adapxip8107/17/2019 6:23 AM EDT1 6:24 AM EDT Narrative Authorizing ProviderResult TypeResult StatusKeloctavia Walters CHIEF ENGINEER'S HELPER.CNPLABORATORY REGIONALFinal ResultPerforming OrganizationAddressCity/State/ZIP CodePhone Number [facility] [address] [place] [address] [facility] [address] [place] [address] from Last 3 Months or Most Recently Relevant to Health Maintenance Insurance Care Teams Team MemberRelationshipSpecialtyStart DateEnd Jadon Duckworth MD [facility]07/06/09
--- OUTSIDE RECORDS SUMMARY | 2025-08-25 09:50 | XMS_ITS | Clinical Summary ---
Author Organization [facility] Healthcare Address [address] [place] [address] Care Team Providers Care Padded Box Sewer Name Role Phone Jadon Duckworth MD Primary Care Provider [phone] Allergies Active AllergyReactionsCriticalityNoted HmgqGgxqhkvbNxnzhEeepv33/29/2024 DENIES METAL ALLERGY Oxycodone-RfuhexcrkpotuPfaui90/29/2024 DIFFICULTY SLEEPING Medications MedicationSigDispense QuantityRefillsLast FilledStart DateEnd DateStatus spironolactone (Aldactone) 50 MG tablet Take 50 mg by mouth in the morning.Active tamsulosin (Flomax) 0.4 MG 24 hr capsule 08/14/2023ctive FeroSul 325 (65 Fe) MG tablet Take 1 tablet by mouth in the morning and 1 tablet before bedtime.Active irbesartan (Avapro) 150 MG tablet 1 (one) time each day at the same time12/08/2023ctive diclofenac (Voltaren) 0.1 % ophthalmic solution 1 drop in the morning and 1 drop at noon and 1 drop in the evening and 1 drop before bedtime.Active triamcinolone (Kenalog) 0.1 % cream Indications:Eczema, unspecified typeApply topically 2 (two) times a day 15 g ctive gabapentin (Neurontin) 300 MG capsule Indications:Post-operative painTake 1 capsule (300 mg) by mouth in the morning and 1 capsule (300 mg) before bedtime. Do all this for 7 days. 14 capsule 08/30/2024ctive Active Problems ProblemNoted DateDiagnosed DateS/P total knee replacement, left11/27/2024Acute postoperative pain of left knee09/11/2024ftercare following right knee joint replacement xapgcko0804/22/2024resence of artificial knee joint, right04/22/2024 Arthritis of right knee03/20/20246001Zuuftx81/03/2024 Family History Medical HistoryRelationNameCommentsCancerMotherDawn McGradyCataractsMotherDawn McGradyDiabetesMotherDawn McGradyRelationNameStatusCommentsMotherDawn Neena Social History Tobacco UseTypesPacks/DayYears UsedDateSmoking Tobacco: NeverSmokeless Tobacco: Never Tobacco Cessation:Counseling Given: Not Answered Alcohol UseStandard Drinks/WeekCommentsYes0 (1 standard drink = 0.6 oz pure alcohol)Sex and Gender InformationValueDate RecordedSex Assigned at BirthMale 09/18/2023 4:54 PM ESTLegal StzLjma1202/13/2023 8:32 PM EDTGender IdentityNot on fileSexual MvqyzedjvxwCusslmd15/04/2023 4:54 PM EST Last Filed Vital Signs Vital SignReadingTime TakenCommentsBlood Pressure--Pulse--Temperature-- Respiratory Rate--Oxygen Saturation--Inhaled Oxygen Concentration--Jxnedy27.7 kg (208 lb 12.8 oz)08/13/2024 1:14 PM GOLCgrawp405.8 cm (5' 10 )08/13/2024 1:14 PM EDTBody Mass Index29.9608/13/2024 1:14 PM EDT Plan of Treatment DateTypeDepartmentCare Team (Latest Contact Info)Ydednwapvuc70/19/2026 8:30 AM ESTOffice Visit [facility] [address] [place] [address] Lj Til[facility] [address] [place] [address] Insurance Care Teams Team MemberRelationshipSpecialtyStart Date Jadon Duckworth MD PCP - GeneralFamily Goetrlak22/11/23
--- OUTSIDE RECORDS SUMMARY | 2025-08-25 09:50 | XMS_ITS ---
Author Organization [facility] Address [address] [place] [address] Care Team Providers Care Marine Safety Officer Name Role Phone Jadon Duckworth MD Primary Care Provider [phone] Active Problems ProblemNoted DateDiagnosed DateShoulder pain07/16/2019Glenohumeral arthritis, right12/10/2018Status post replacement of left shoulder joint12/10/2018Essential (primary) pqrkqfdzkxra60/29/2018 Assessment & Plan (06/25/2019 1:32 PM EDT): Assessment: stable on medication to take morning of surgery 129/63 Primary osteoarthritis of right ytrticet84/14/2018Chronic kidney disease, stage III (moderate)11/18/2017 Assessment & Plan (06/25/2019 1:33 PM EDT): Assessment: Follows with Nephrology Other hghuahueolgykr61/06/2017 Assessment & Plan (06/25/2019 1:33 PM EDT): Assessment: stable on medication S/p reverse total shoulder heqmzmbjflbx68/31/2017 Current Treatment and Therapy Plans No current plan information found. Past Treatment and Therapy Plans No past plan information found. Treatment Summaries Prostate cancer (HCC)* Treatment Summary and Survivorship Care Plan for Prostate Cancer General Information Patient Name: Otto Lim Patient : 1945 Patient phone: Email: [email or web address] Care [email or web address] Primary Care Provider: Dr. Jadon Duckworth Urologist: Dr. Brian Leo Radiation Oncologist: Dr. Deb Hale Other Providers: Sara Bedoya CNP Treatment Summary Diagnosis Cancer Type: Adenocarcinoma of the Prostate Location: Prostate - Right lobe Diagnosis Date (year): November 05, 2015 Histology Subtype: Prostate Cancer Stage:I Gretchen Score: 6 (3+3) PSA at Diagnosis: 5.5 September 28, 2015, 5.64 on June 27, 2016 Treatment Completed Surgery: Transrectal ultrasound guided biopsy Surgery Date(s) (year): November 05, 2015 Surgical procedure/location/findings: Positive cores from the right External beam radiation: Yes Pelvis and prostate - July 19, 2016 to August 22, 2016 Brachytherapy to prostate: Yes: End Date (year): September 15, 2016 72 seeds Systemic Therapy (chemotherapy, hormonal therapy, other): No Presistent symptoms or side effects at completion of treatment: No Follow-up Care Plan Schedule of clinical visits Coordinating Provider When/How often Dr. Deb Hale Every 6 months for 2 years, then once yearly Dr. Brian Leo Per Dr. Leo Cancer surveillance or other recommended related tests Coordinating Provider Test How Often Dr. Deb Hale PSA (Prostate Specific Antigen) Every 6 months for 2 years, then once yearly Please continue to see your primary care provider for all general health care recommended for a (man) (women) your age, including cancer screening tests. Any symptoms should be brought to the attention of your provider: 1. Anything that represents a brand new symptom; 2. Anything that represents a persistent symptom; 3. Anything you are worried about that might be related to the cancer coming back. Possible late- and long-term effects that someone with this type of cancer and treatment may experience: Decreased sex drive, Enlarging breast tissue, Erectile dysfunction, Fatigue, Hair Loss, Hot flashes, Incontinence, Increased body fat, Loss of muscle mass, Metabolic syndrome (increased blood pressure, blood sugar, cholesterol), Mood swings, Osteoporosis, Painful urination, Rectal pain, Shorten ing of the penis, Skin irritation or darkening, Sterility, Tirdness, Trouble voiding or passing uring (urinary retention) and Urinary frequency Cancer survivors may experience issues with the areas listed below. If you have any concerns in these or other areas, please speak with your doctors or nurses to find out how you can get help with them: anxiety or depression , emotional or mental health, fatigue, fertility, financial advice or assistance, insurance, memory or concentration loss, parenting, physicial functioning, school/work and sexual functioning A number of lifestyle/behaviors can affect your ongoing health, including the risk for the cancer coming back or developing another cancer. Discuss these recommendations with your doctor or nurse: alcohol use, diet, management of medications, management of other illnesses, physical activity, sun screen use, tobacco use/cessation and weight management (loss/gain) Resources you may be interested in: www.cancer.net delivery sales worker Industrial Relations Officer Art Therapy Other: PSA ([facility] [employer]) - Support group that meets the Monday of every month from 7-8 pm at at [address] [place] [address] Dr Nichols Prepared by: Sara Bedoya CNP Delivered on: October 31, 2016 - This Survivorship Care Plan is a cancer treatment summary and follow-up plan is provided to you to keep with your health care records and to share with your primary care provider. - This summary is a brief record of major aspects of your cancer treatment. You can share your copywith any of your doctors or nurses. However, this is not a detailed or comprehensive record of yourcare. Resolved Problems ProblemNoted DateDiagnosed DateResolved DatePrimary osteoarthritis of left gcflljpw45Prostate wjhefa24Peyronie's trilmte01
--- OUTSIDE RECORDS SUMMARY | 2025-08-25 09:50 | XMS_ITS | Clinical Summary ---
Author Organization [employer] [id number] [address] [place] [address] Care Team Providers Care Partnership Marketing Manager Name Role Phone Jadon Duckworth MD Primary Care Provider [phone] Social History Tobacco UseTypesPacks/DayYears UsedDateSmoking Tobacco: Never AssessedChildcare AnswerDate TedtcvicXubchhjvdJjicdsv23/12/2019EmploymentAnswerDate Recorded QznqcxshlrDeocmpg14/12/2019Sex and Gender InformationValueDate RecordedSex Assigned at BirthNot on fileLegal BalZzjt6605/21/2015 12:07 PM EDTGender Identity Not on fileSexual OrientationNot on file Plan of Treatment Health MaintenanceDue DateLast DoneCommentsDepression Ivfrwnmjk44/11/1958Tobacco Jtqfqnefv23/11/1958DTaP,Tdap and Td Vaccines (1 - Tdap)1965Zoster (Shingles) Vaccine (1 of 2)1996Fall Risk Xnwhqevpj46/11/2011RSV ( or age 60+ yrs) (1 - 1-dose 75+ series)2021OVID-19 Vaccine ( - season)503/, 12/17/2020Influenza Luzcarf12/08/2021, 08/27/2020, 08/01/2017, Additional history exists Medical Devices Not on file Insurance Care Teams Team MemberRelationshipSpecialtyStart Date Jadon Duckworth MD [address] [place] [address] PCP - GeneralFamily Oxngeygl45/29/24
--- OUTSIDE RECORDS SUMMARY | 2025-08-25 09:54 | XMS_ITS | CCD ---
Author Organization [facility] Care Team Providers Care [employer] Le[employer] Supervisor Name Role Phone RIZWANATRELL TELLEZ Jarrell Referring [...] Unavailable Narciso Bullock MD Primary Care Provider [phone] MD Narciso Bullock Primary Care Provider [phone] CHRISTINE Tilley Attending Provider Queta Tilley Attending Unavailable Queta Tilley Admitting Unavailable Narciso Bullock Primary Care Unavailable Narciso Bullock MD Primary Care Provider [phone] QUETA TILLEY Referring Unavailable NARCISO BULLOCK Primary Care Unavailable QUETA TILLEY Attending Unavailable QUETA TILLEY Referring Unavailable NARCISO BULLOCK Primary Care Unavailable Narciso Bullock MD Primary Care Provider [phone] NARCISO BULLOCK Primary Care Unavailable LYNDSAY SALGADO [...] Unavailable Narciso Bullock MD Primary Care Provider [phone] [facility]EN[facility] URIBE Attending Unavailable PH[facility]ENIX URIBE Attending Unavailable Allergies Allergy ClassificationReported Allergen(s)Allergy TypeDate of OnsetReaction(s) Facility (20 sources)Acetaminophen / oxyCODONE; Translations: [OXYCODONE-ACETAMINOPHEN] Drug Kqyiotn49-07-5830[facility] (20 sources)Other; Translations: [OTHER]Propensity to adverse reactions 08-23-0236EfjsgDBRP [facility] Medications Current Medications MedicationDrug Class(es)DatesSig (Normalized)Sig (Original)acetaminophen 325 mg / HYDROcodone bitartrate 5 mg oral tablet (9 sources)Opioid AgonistStart: 09-17-2024 End: 13-78-0902segd 1 tablet by mouth every six hours for painHYDROcodone- acetaminophen ([place]) 5-325 MG tablet Indications: S/P total knee replacement, left Take 1 tablet by mouth every 6 (six) hours if needed for severe pain for up to 5 days 20 tablet 09/17/2024 09/22/2024 ActiveStart: 08-29-2024 End: 48-03-2238tcrl 1 tablet by mouth every six hours for painHYDROcodone- acetaminophen ([place]) 5-325 MG tablet Indications: Post-operative pain Take 1 tablet bymouth every 6 (six) hours if needed for severe pain for up to 5 days 20 tablet 09/05/2024 09/10/2024 ActiveStart: 08-21-2024 End: 94-01-9420yuwo 1 tablet by mouth every six hours for painHYDROcodone- acetaminophen ([place]) 5-325 MG tablet Indications: Post-operative pain Take 1 tablet bymouth every 6 (six) hours if needed for severe pain for up to 5 days 20 tablet 08/21/2024 08/26/2024 ActiveAcidophilus Extra Strength - (2 sources)Acidophilus Extra Strength - as directed Orally ActiveAlfalfa 500 MG (2 sources)[place] 500 MG as directed Orally Activeartemether / lumefantrine (1 source)AntimalarialArtemether-Lumefantrine 20-120 MG as directed Orally Activechlorhexidine gluconate 40 mg/ml medicated liquid soap (3 sources)Start: 08-13-2024 End: 77-81-3531Ncqbwapvmjoxf Gluconate (Hibiclens) 4 % solution Indications: Preop examination , Primary osteoarthritis of left knee Apply 1 Dose topically 1 time for 1 dose As directed night before surgery 118 mL 08/13/2024 08/13/2024 ActiveCoconut Oil (2 sources)Coconut Oil TWICE A DAY ActiveCoconut Oil Activediclofenac sodium 1 mg/ml ophthalmic solution (20 sources)Nonsteroidal Anti-inflammatory Drugdiclofenac (Voltaren) 0.1 % ophthalmic solution 1 drop in the morning and 1 drop at noon and 1 dropin the evening and 1 drop before bedtime. Active End: 74-28-4949aduc 1 drop(s) into the eye(s) four times dailydiclofenac (VOLTAREN) 0.1 % ophthalmic solution 1 Drop four times daily. 10/22/2024 Discontinued (Other)diclofenac (VOLTAREN ARTHRITIS PAIN) 1 % topical gel Apply to affected area two times a day. Active End: 82-43-3413rpeb 1 tablet by mouth twice dailydiclofenac, EC, (VOLTAREN) 25 mg EC tablet Take 25 mg by mouth twice daily. 10/22/2024 Discontinuedtake 1 tablet by mouth every twelve hoursDiclofenac Sodium 75 MG 1 tablet Orally Twice a day ActiveComment on above:Take 25 mg by mouth twice daily.ferrous sulfate 325 mg oral tablet (20 sources)Start: 58-72-2608ukxv 1 tablet by mouth twice dailyferrous sulfate 325 mg (65 mg iron) tablet Take 1 tablet by mouth two times a day. 10/22/2024 ActiveFish Oils (2 sources)take 1 capsule by mouth once dailyFish Oil 1000 MG 1 capsule Orally Once a day Activefolic acid 1 mg / polysaccharide iron complex 150 mg / vitamin b12 0.025 mg oral capsule (12 sources)Vitamin U91Owbvk: 08-13-2024 End: 70-04-5265bqol 1 tablet by mouth once dailyIron Polysacch Srutk-V19-DI (Poly-Iron 150 Forte) 150-0.025-1 MG capsule Indications: Preop examination , Primary osteoarthritis of left knee Take 1 tablet by mouth Daily 30 capsule 1 08/13/2024 09/12/2024 Activegabapentin 300 mg oral capsule (20 sources)Anti-epileptic AgentStart: 08-21-2024 End: 68-94-8888kduw 1 capsule by mouth in the morninggabapentin (Neurontin) 300 MG capsule Indications: Post-operative pain Take 1 capsule (300 mg) by mouth in the morning and 1 capsule (300 mg) before bedtime. Do all this for 7 days. 14 capsule 08/30/2024 ActiveStart: 04-03-2024 End: 52-61-0835hfhm 1 capsule by mouth in the morninggabapentin (Neurontin) 300 MG capsule Indications: Post-operative pain Take 1 capsule (300 mg) by mouth in the morning and 1 capsule (300 mg) before bedtime. Do all this for 7 days. 14 capsule 04/03/2024 06/26/2024 DiscontinuedGlucosamine Chond MSM Formula - (2 sources)Glucosamine Chond MSM Formula - as directed Orally TWICE A DAY Active irbesartan 150 mg oral tablet (20 sources)Angiotensin 2 Receptor BlockerStart: 99-22-1100sstqmxbudp (Avapro) 150 MG tablet 1 (one) time each day at the same time 12/08/2023 Active Multivitamins (2 sources)Multivitamins as directed Orally Activequercetin 50 mg oral tablet (1 source)take 1 tablet by mouth once dailyQuercetin 50 MG 1 tablet Orally Once a day ActiveSaw [place] 540 mg (2 sources)take 1 capsule by mouth once dailySaw [place] 540 mg 1 Capsule Orally Daily Activespironolactone 50 mg oral tablet (20 sources)Aldosterone Antagonisttake 1 tablet by mouth in the morning spironolactone (Aldactone) 50 MG tablet Take 50 mg by mouth in the morning. ActiveComment on above:Take 50 mg by mouth once daily.tamsulosin hydrochloride 0.4 mg oral capsule (20 sources)alpha-Adrenergic BlockerStart: 15-58-9925amwh 1 capsule by mouth twice dailytamsulosin (FLOMAX) 0.4 mg Take 1 capsule by mouth two times a day. 10/22/2024 ActiveStart: 09-85-9848wfkmwjbaau (Flomax) 0.4 MG 24 hr capsule 08/14/2023 ActiveStart: 09-30-2016 End: 70-98-0561biee 0.4 mg by mouth once dailytamsulosin ER (FLOMAX) 0.4 mg cp24 Indications: Prostate cancer (HCC) Take 0.4 mg by mouth once daily. 09/30/2016 10/22/2024 Discontinued (Adjust Sig - Block E-Cancel)Comment on above:Take 0.4 mg by mouth once daily.taurine 500 mg oral tablet (2 sources)take 1 capsule by mouth once dailyTaurine 500 MG 1 capsule Orally Once a day Activetriamcinolone acetonide 1 mg/ml topical cream (20 sources)CorticosteroidStart: 51-46-8872nigqvcsawovek (Kenalog) 0.1 % cream Indications: Eczema, unspecified type Apply topically 2 (two) times a day 15 g 1 08/13/2024 Activeturmeric extract 500 mg oral capsule (2 sources)Turmeric 500 MG as directed Orally Activeubidecarenone 200 mg oral capsule (2 sources)take 1 capsule by mouth every twenty-four kiqyhWkV19 200 MG 1 capsule with a meal Orally Once a day for 30 day(s) ActiveVitamin C 1000 mg (2 sources)take 1 tablet by mouth once dailyVitamin C 1000 mg 1 tablet Orally Once a day ActiveVitamin E 400 UNIT (2 sources)take 1 capsule by mouth once dailyVitamin E 400 UNIT 1 capsule Orally Once a day Active Completed/Discontinued Medications MedicationDrug Class(es)DatesSig (Normalized)Sig (Original)acetaminophen 500 mg oral tablet (1 source) End: 93-55-5318qeygpmaxezazc (TYLENOL EXTRA STRENGTH) 500 mg tablet Take 1,000 mg by mouth as needed. 0 05/16/2023iscontinuedComment on above:Take 1,000 mg by mouth as needed.ascorbic acid 1000 mg oral tablet (5 sources)Vitamin C End: 79-15-3832wyfa 1 tablet by mouth three times weeklyAscorbic Acid (VITAMIN C) 1,000 mg tablet Take 1,000 mg by mouth three times a week. 10/22/2024 Disc ontinuedtake 3 tablets by mouth three times weeklyAscorbic Acid (VITAMIN C) 1,000 mg tablet Take 3,000 mg by mouth 3 times a WEEK. 0 ActiveComment on above: Take 3,000 mg by mouth 3 times a WEEK.aspirin 81 mg delayed release oral tablet (10 sources)Platelet Aggregation Inhibitor, Nonsteroidal Anti-inflammatory Drug Start: 07-16-2019 End: 60-97-2786ozeh 1 tablet by mouth twice dailyaspirin, enteric coated (ASPIRIN, ENTERIC COATED) 81 mg EC tablet Take 1 tablet by mouth twice daily for 14 days. 28 tablet 07/16/2019 10/22/2024 Discontinued End: 00-53-4614mfbj 1 tablet by mouth once dailyaspirin, enteric coated (ASPIRIN, ENTERIC COATED) 81 mg EC tablet Indications: Prostate cancer (HCC) Take 81 mg by mouth once daily. 10/22/2024 Discontinuedtake 1 tablet by mouth every twenty-four hoursAspirin 81 MG 1 tablet Orally Once a day ActiveComment on above:Take 81 mg by mouth once daily.Take 1 tablet by mouth twice daily for 14 days.celecoxib 200 mg oral capsule (2 sources)Nonsteroidal Anti-inflammatory DrugStart: 08-21-2024 End: 38-02-9868bbxa 1 capsule by mouth once dailycelecoxib (CeleBREX) 200 MG capsule Indications: Post-operative pain Take 1 capsule (200 mg) by mouth Daily for 14 days 14 capsule 08/21/2024 09/04/2024 Expireddocusate sodium 100 mg oral capsule (1 source)Start: 07-16-2019 End: 49-13-0008yarv 1 capsule by mouth twice dailydocusate sodium (COLACE) 100 mg capsule Take 1 capsule by mouth twice daily. 60 capsule 1 07/16/2019 05/16/2023 DiscontinuedComment on above:Take 1 capsule by mouth twice daily. Garlic preparation (1 source)Non-Standardized Food Allergenic Extract End: 61-43-2796acsv 1 tablet by mouth once dailyGARLIC ORAL Indications: Prostate cancer (HCC) Take 1 tablet by mouth once daily. 0 05/16/2023 Disco ntinuedComment on above:Take 1 tablet by mouth once daily.Lactobac no.41- Bifidobact no.7 (PROBIOTIC-10) 70 mg (3 billion cell) cap (5 sources) End: 04-09-5918kaqp 1 capsule by mouth once dailyLactobac no.41-Bifidobact no.7 (PROBIOTIC-10) 70 mg (3 billion cell) cap Take 1 capsule by mouth once daily. 10/22/2024 Discontinuedtake 1 capsule by mouth once dailyLactobac no.41- Bifidobact no.7 (PROBIOTIC-10) 70 mg (3 billion cell) cap Take 1 capsule by mouth once daily. Activetake 1 capsule by mouth once dailyLactobac no.41- Bifidobact no.7 (PROBIOTIC-10) 70 mg (3 billion cell) cap Take 1 capsule by mouth once daily. 0 ActiveComment on above:Take 1 capsule by mouth once daily. lecithin 1200 mg oral capsule (1 source) End: 08-28-1595foxc 1 capsule by mouth once dailyLecithin 1,200 mg cap Take 1 capsule by mouth once daily. 0 05/16/2023 DiscontinuedComment on above:Take 1 capsule by mouth once daily.losartan potassium 25 mg oral tablet (8 sources)Angiotensin 2 Receptor BlockerStart: 10-03-2023 End: 45-82-3635vmfj 3 tablets by mouth once dailylosartan (COZAAR) 25 mg tablet Take 3 tablets by mouth once daily. 10/03/2023 10/22/2024 DiscontinuedStart: 34-03-4844cgji 1 tablet by mouth once dailylosartan (COZAAR) 100 mg tablet Indications: Prostate cancer (HCC) Take 100 mg by mouth once daily.0 09/23/2016 Activetake 1 tablet by mouth once dailyLosartan Potassium 50 MG TAKE 1 TABLET BY MOUTH DAILY for 90 ActiveComment on above:Take 100 mg by mouth once daily. lovastatin 20 mg oral tablet (7 sources)HMG-CoA Reductase Inhibitor End: 40-51-7666balb 1 tablet by mouth once daily at bedtimelovastatin (MEVACOR) 20 mg tablet Take 20 mg by mouth daily at bedtime. 10/22/2024 Discontinued Comment on above:Take 20 mg by mouth daily at bedtime.MINERALS ORAL (5 sources) End: 85-41-4970ulrk 1 tablet by mouth once dailyMINERALS ORAL Take 1 tablet by mouth once daily. 10/22/2024 Discontinuedtake 1 tablet by mouth once daily MINERALS ORAL Take 1 tablet by mouth once daily. Activetake 1 tablet by mouth once dailyMINERALS ORAL Take 1 tablet by mouth once daily. 0 ActiveComment on above:Take 1 tablet by mouth once daily.multivitamin (MULTIPLE VITAMINS) tablet (5 sources) End: 89-56-7891qprj 1 tablet by mouth once dailymultivitamin (MULTIPLE VITAMINS) tablet Take 1 tablet by mouth once daily. 10/22/2024 Discontinuedtake 1 tablet by mouth once dailymultivitamin (MULTIPLE VITAMINS) tablet Take 1 tablet by mouth once daily. Activetake 1 tablet by mouth once dailymultivitamin (MULTIPLE VITAMINS) tablet Take 1 tablet by mouth once daily. 0 ActiveComment on above: Take 1 tablet by mouth once daily.mupirocin 0.02 mg/mg topical ointment (5 sources)RNA Synthetase Inhibitor AntibacterialStart: 06-25-2019 End: 45-23-9149khhzhgtqh (BACTROBAN) 2 % ointment Apply 0.5 inch with cotton swab (Q-tip) to each nostril in the morning and evening for 5 days prior to and including day of surgery. 22 g 06/25/2019 10/22/2024 DiscontinuedComment on above:Apply 0.5 inch with cotton swab (Q-tip) to each nostril in the morning and evening for 5 days priorto and including day of surgery.Frxka-3-FXZ-EPA-Fish Oil (FISH OIL) 1,000 mg (120 mg-180 mg) cap (5 sources) End: 19-65-1787cbfs 1 capsule by mouth once kjvbbOvxpi-4-EDO-EPA-Fish Oil (FISH OIL) 1,000 mg (120 mg-180 mg) cap Take 1 g by mouth once daily. 10/22/2024 Discontinuedtake 1 capsule by mouth once fklifHocyi-8-GPD-EPA-Fish Oil (FISH OIL) 1,000 mg (120 mg-180 mg) cap Take 1 g by mouth once daily. Activetake 1 capsule by mouth once oahfiGejes-9-KVX-EPA-Fish Oil (FISH OIL) 1,000 mg (120 mg- 180 mg) cap Take 1 g by mouth once daily. 0 ActiveComment on above:Take 1 g by mouth once daily.prasterone 50 mg oral tablet (7 sources) End: 09-81-3086prjf 1 tablet by mouth once dailyprasterone, dhea, (DHEA) 50 mg tab Take 50 mg by mouth once daily. 10/22/2024 DiscontinuedDHEA 50 50 MG as directed Orally TWICE A DAY ActiveDHEA 50 50 MG as directed Orally once a day ActiveComment on above:Take 50 mg by mouth once daily.Saw [place] 160 mg capsule (5 sources) End: 98-60-0658msax 1 capsule by mouth three times dailySaw [place] 160 mg capsule Take 160 mg by mouth three times daily. 10/22/2024 Discontinuedtake 1 capsule by mouth three times dailySaw [place] 160 mg capsule Take 160 mg by mouth three times daily. Activetake 1 capsule by mouth three times dailySaw [place] 160 mg capsule Take 160 mg by mouth three times daily. 0 ActiveComment on above:Take 160 mg by mouth three times daily.turmeric-turmeric root extract 450-50 mg cap (5 sources) End: 54-14-4532plrt 1 capsule by mouth once dailyturmeric-turmeric root extract 450-50 mg cap Take 1 capsule by mouth once daily. 10/22/2024 Discontinuedtake 1 capsule by mouth once dailyturmeric-turmeric root extract 450-50 mg cap Take 1 capsule by mouth once daily. Activetake 1 capsule by mouth once dailyturmeric- turmeric root extract 450-50 mg cap Take 1 capsule by mouth once daily. 0 Active Comment on above:Take 1 capsule by mouth once daily.Vitamin B Complex (7 sources) End: 16-16-0844jttl 1 tablet by mouth once dailyvitamin b complex tab Take 1 tablet by mouth once daily. 10/22/2024 Discontinuedtake 1 tablet by mouth once dailyvitamin b complex tab Take 1 tablet by mouth once daily. Activetake 1 tablet by mouth once dailyvitamin b complex tab Take 1 tablet by mouth once daily. 0 ActiveVitamin B Complex - Orally ActiveComment on above:Take 1 tablet by mouth once daily.VITAMIN E ACETATE ORAL (5 sources) End: 90-11-2786zmzi 1200 mg by mouth twice dailyVITAMIN E ACETATE ORAL Take 1,200 mg by mouth twice daily. 10/22/2024 Discontinuedtake 1200 mg by mouth twice dailyVITAMIN E ACETATE ORAL Take 1,200 mg by mouth twice daily. Activetake 1200 mg by mouth twice dailyVITAMIN E ACETATE ORAL Take 1,200 mg by mouth twice daily. 0 ActiveComment on above:Take 1,200 mg by mouth twice daily. Problems Active Problems Problem ClassificationProblemDateDocumented DateEpisodic/ChronicAllergic reactions (2 sources)Eczema; Translations: [Dermatitis, unspecified]48-61-7875Hnimqxcu Cardiac dysrhythmias (1 source)Supraventricular tachycardia; Translations: [SVT (supraventricular tachycardia) (HCC)]12-29-5833SwgrlkwKxkyamf kidney disease (11 sources)Chronic kidney disease stage 3; Translations: [Chronic kidney disease, stage 3 (moderate)]Onset: 238026-70-7593VudoxtePrpvnut kidney disease (9 sources)Chronic kidney disease; Translations: [Chronic kidney disease, stage 3a]Onset: 09-22-2021 Resolved: 51-52-6413Bfntkogkiq and other anemia (4 sources)Anemia of renal disease; Translations: [Anemia in chronic kidney disease]85-68-8080RtsefxiRgviesykpb and other anemia (2 sources)Anemia in chronic kidney diseaseOnset: 09-22-2021 Resolved: 72-94-6853MaynhozQbtshjctwl and other anemia (2 sources)Iron deficiency anemia; Translations: [Iron deficiency anemia, unspecified]EpisodicDisorders of lipid metabolism (11 sources)Pure hypercholesterolemia, unspecified; Translations: [Hyperlipidemia, unspecified]Onset: 288032-78-8425YlomnjvHosowpaff hypertension (9 sources)Essential hypertension; Translations: [Essential (primary) hypertension]Onset: 229094-32-8558JiyhtuhLadblkeogwlxlzbn hemorrhage (2 sources)Hematochezia; Translations: [Melena]EpisodicHeart valve disorders (2 sources)Nonrheumatic aortic (valve) stenosis; Translations: [Nonrheumatic aortic (valve) stenosis]Onset: 67-43-0793XubinjdFfziurvzuaol with complications and secondary hypertension (4 sources)Hypertensive renal disease; Translations: [Hypertensive chronic kidney disease with stage 1 throughstage 4 chronic kidney disease, or unspecified chronic kidney disease]Onset: 09-22-2021 Resolved: 49-04-1212NocwpluNztohodmc neoplasm without specification of site (20 sources)Malignant neoplastic disease; Translations: [Malignant (primary) neoplasm, unspecified]Onset: 180310-31-5500EjtykysDwdrnrdbxnflyz (20 sources)Primary osteoarthritis, right shoulder; Translations: [Localized, primary osteoarthritis of the shoulder region]Onset: 12-19-2016 Resolved: 98-12-9388ZcblooaEchfc aftercare (20 sources)Patient encounter status; Translations: [Aftercare following joint replacement surgery]Onset: 166331-94-3347JxylkjfWqztw connective tissue disease (1 source)Presence of left artificial shoulder joint; Translations: [Presence of left artificial shoulder joint]Onset: 85-63-2192OzankroEagsi connective tissue disease (5 sources)History of operative procedure on shoulder; Translations: [Presence of unspecified artificial shoulder joint]Onset: 674876-68-5734TujejuzJsbeo connective tissue disease (5 sources)History of left shoulder arthroplasty; Translations: [Presence of left artificial shoulder joint]Onset: 308236-90-1904PprxheqZseck connective tissue disease (20 sources)Artificial knee joint present; Translations: [Presence of right artificial knee joint]Onset: 404850-43-1799HajrhkxEpuhy connective tissue disease (20 sources)History of total knee arthroplasty; Translations: [Presence of left artificial knee joint]Onset: 901295-82-3988TxywedcCifdg diseases of kidney and ureters (1 source)Hyperparathyroidism due to renal insufficiency; Translations: [Secondary hyperparathyroidism of renal origin]15-65-3963MosbyieUidqt nervous system disorders (4 sources)Postoperative pain ; Translations: [Other acute postprocedural pain] 93-45-9672LufrldllBfcth nervous system disorders (20 sources)Other acute postprocedural pain; Translations: [Pain in joint, lower leg]Onset: 094738-22-6307DrceloqlYasak non-traumatic joint disorders (3 sources)Pain in right knee; Translations: [Pain in joint, lower leg] 85-58-1315XnkjeydaNgpqfbes codes; unclassified (1 source)Generalized aches and pains; Translations: [Pain, unspecified] 95-50-5212XvfedyfrYisznkoqlzqn (3 sources)CONTACT W/AND (SUSP) EXPOS COVID-19; Translations: [CONTACT W/AND (SUSP) EXPOS COVID-19]Onset: 67-00-2983Ldeojjelphhk (1 source)COUGH, UNSPECIFIED; Translations: [COUGH, UNSPECIFIED]Onset: 00-40-4504Bvusajjnnyyc (2 sources)Preprocedural examination llqp65-30-6862Kfwyblhespfb (1 source)Supraventricular tachycardia, unspecified; Translations: [Supraventricular tachycardia, unspecified]Onset: 06-21-2023 Past or Other Problems Problem ClassificationProblemDateDocumented DateEpisodic/ChronicCancer of prostate (2 sources)Malignant tumor of prostate; Translations: [Malignant neoplasm of prostate]Onset: 07-05-2016 Resolved: 327785-46-6100UalopquStutjcc dysrhythmias (3 sources)Bradycardia; Translations: [Bradycardia, unspecified]Onset: 052176-01-4834UxmxbfqmDuehaqnp mellitus without complication (1 source)Other abnormal glucose; Translations: [OTHER ABNORMAL GLUCOSE]Onset: 70-28-4109TlldffxdBttvs valve disorders (2 sources)Cardiac murmur, unspecified; Translations: [Cardiac murmur, unspecified]Onset: 28-95-1848IacjxcvtFdprvft and fatigue (1 source)Other fatigue; Translations: [OTHER FATIGUE]Onset: 66-51-9610Zhdsuqbb Other aftercare (1 source)Other halfway (current) drug therapy; Translations: [OTH DETENTION CURRENT DRUG THERAPY]Onset: 10-34-6673SxotwvcfVmbdv male genital disorders (2 sources)Induratio penis plastica; Translations: [Induration penis plastica] Onset: 07-08-2009 Resolved: 019261-55-8812UuqyncpYvzyz non-traumatic joint disorders (1 source)Pain in unspecified joint; Translations: [PAIN IN UNSPECIFIED JOINT] Onset: 90-49-4481DgwnpmiaCzbgq non-traumatic joint disorders (5 sources)Shoulder pain; Translations: [Pain in unspecified shoulder]Onset: 607863-13-6788OmlyfkykFmpkd screening for suspected conditions (not mental disorders or infectious disease) (2 sources)Encounter for screening for malignant neoplasm of prostate; Translations: [Encounter for screening for malignant neoplasm of rectum]Onset: 74-90-1909AkjsitwlKencm upper respiratory disease (1 source)Nasal congestion; Translations: [NASAL CONGESTION]Onset: 10-07-2022 EpisodicUnclassified (1 source)CONTACT W/AND (SUSP) EXPOS COVID-19; Translations: [CONTACT W/AND (SUSP) EXPOS COVID-19]Onset: 60-10-6338Ziziwgonibel (1 source)Supraventricular tachycardia, unspecified; Translations: [Supraventricular tachycardia, unspecified]Onset: 10-28-2024 Results Test NameValueInterpretationReference RangeFacilityOffice Visiton 06-27-2025 Follow-up [id number] Amina Lim 1945 M Date Provider Department Center 06/27/2025 [facility] Family History Problem Relation Age of Onset Other Father Lupus Father Family Status - Relation Status Age at Mother Father Level of Service:29260 DE OFFICE/OUTPATIENT ESTABLISHED MOD MDM 30 MIN Reason for Visit and Comments: Hypertension [264398] Hyperlipidemia [182] Bradycardia [280329] SVT [Other] Follow-up [872121] - 6 months with labs and EchoNormalUniversity [facility]on 90-03-809711Ydytwxdcl echo result from 03/31/2025: MD Lucia Chun MA Inform patient that his echo showed moderate aortic valve stenosis. Repeat echo in about 6 months to follow-up on progression of this. Patient informed. Told him we could order the echo when he sees Dr. Uribe next month.[facility]36on 28-46-000255Ciywqjyro lab results from 10/29/2024: MD Lucia Chun MA His LDL cholesterol is mildly elevated 112. The goal to be 100 or below. Advised patient to follow low-fat diet and recheck lipids in 3 months. Spoke with patient and he will have repeat labs prior to his next apt in April 2025. Order mailed to him.NormalPrem[facility] SouthOffice Visit on 13-70-5149Oqjxdh-up [id number] Amina Lim 1945 M Date Provider Department Center 10/28/2024 [facility] Family History Problem Relation Age of Onset Other Father Lupus Father Family Status - Relation Status Age at Father Level of Service:65206 DE OFFICE/OUTPATIENT ESTABLISHED MOD MDM 30 MIN Reason for Visit and Comments: Hypertension [923091] - Had labs 2 weeks ago. Heart Murmur [124] - Denies chest pain, SOB, palpitations, and lightheadedness/syncope. SVT [Other] Hyperlipidemia [182] - He took himself off lovastatin 3-4 months ago. No lipid since Sep 2023. Denies side effects from statin.NormalPremier Health [facility] Hospital SouthCNOVon 82-69-5086HVFMSaaigf Visit (KIDFRKassie) AMINA LIM ([id number]) 1945 M Date Time Provider Department 10/22/24 10:20 AM LYNDSAY SALGADO During your visit today, we recorded the following information about you: Pulse Blood pressure Weight Height 64/minute 130/69 92.5 kg 1.791 m Lyndsay Salgado DO 10/22/2024 10:48 AM Signed Department of [facility] Specialties [place] [facility] SERVICE DATE: 10/22/2024 SERVICE TIME: [...] renal function. Following with cardiology at the [facility]. No longer taking NSAIDs after [...] Take 1 tablet by mouth once daily. Lxyah-4-UQC-EPA-Fish Oil (FISH OIL) 1,000 mg (120 mg-180 mg) cap Take 1 g by mouth once daily. lovastatin (MEVACOR) 20 mg tablet Take 20 mg by mouth daily at bedtime. multivitamin (MULTIPLE VITAMINS) tablet Take 1 tablet by mouth once daily. [place] 160 mg capsule Take 160 mg by [...] Nose, and Throat: Heari (more content not included)...NormalKing's Daughters Medical Center OhioPNon 22-37-2841MEJCOgzqahogx (MIDMAV) AMINA LIM ([id number]) 1945 M Date Time Provider Department 10/17/24 CASSIDY ARITA MIDSDV During your visit today, we recorded the following information about you: Cassidy Arita DO 10/17/2024 2:11 PM Signed ----- Message from RHODA Han sent at 10/17/2024 1:10 PM EST ----- Regarding: Lab orders for upcoming appt w/Dr. Salgado Contact: Patient is requesting labs for upcoming appt on 10/22/24. Labs need to be faxed to [facility] @ [phone]. Call pt when done ThanksDanielle Diana, DO 10/17/2024 2:17 PM Signed Covering for Dr Salgado CKD lab work ordered Cassidy Arita DO October 17, 2024, 2:15 PM Porfirio Hamilton MA 10/17/2024 5:05 PM Addendum Orders printed and faxed to number provided below. Confirmation received. Pt notified DEVIN Angel Diana, DO [facility] Pool1 hour ago (2:17 PM) [facility] and let patient know that I have [...] 10/21/2024 8:21 AM Signed Fax received from [facility] lab in regards to pt PTH lab result: PTH result is 24. Fax marked with pt MRN and placed in for scanning. ELINOR Castillo Allergies As of Date: 10/17/2024 (No Known Allergies) Date Reviewed: 10/03/2023 Reviewed by: Lyndsay Salgado DO - Fully Assessed Primary Visit Diagnosis:Stage 3 chronic kidney disease, unspecified whether stage 3a or 3b CKD (HCC) [N18.30] Order(s):ALBUMIN/CREATININE RATIO, URINE [SQUACR] Order #: [id number] FUTURE PROTEIN / CREATININE RATIO [SQPRATIO] Order #: [id number] FUTURE URINALYSIS WITH MICROSCOPIC, REFLEX CULTURE [SQUACII] Order #: [id number] FUTURE RENAL FUNCTION PANEL [SQRFP] Order #: [id number] FUTURE VITAMIN D 25 HYDROXY [SQVITD] Order #: [id number] FUTURE PTH INTACT [SQPTHI] Order #: [id number] FUTURE COMPLETE BLOOD COUNT [SQCBC] Order #: [id number] FUTURE Prescriptions as of 10/21/2024 - losartan [...] 1 tablet by mouth once daily. - Fnnmh-1-TEH-EPA-Fish Oil (FISH OIL) 1,000 mg (120 mg-180 mg) cap Take 1 g by mouth once daily. - lovastatin (MEVACOR) 20 mg tablet Take 20 mg by mouth daily at bedtime. - multivitamin (MULTIPLE VITAMINS) tablet Take 1 tablet by mouth once daily. - [place] 160 mg capsule Take 160 mg by [...] 07/16/2019 Encounter Status:Closed by PORFIRIO HAMILTON on 10/17/24[facility] Knee - left 1 or 2 Viewson 07-54-5790Bsqokvh Result: AP and Lateral of left knee: Surgical position and alignment of prosthetic components without evidence of loosening or wear to femora, tibial or patellar components, The alignment appears to be anatomic. No evidence of accelerated or asymmetric wear to tibial tray or patella button. No evidence of fracture or dislocation. Impression: Unremarkable left total knee arthroplastyParkland Health Center HealthcareRadiology Study observation (narrative)[facility] 39-76-2624mFII Coag (PPP) [Time]35 [facility] Hospital LimaComment on above:NEW REFERENCE RANGEaPTT Coag (Bld) [Time]35 [facility] Medicine InstituteComment on above:NEW REFERENCE RANGE PERFORMED AT [address] [place] [address] CBC AND AUTO DIFFon 26-86-8576IZSQPZDD BASOPHIL0.1 X10E9/LNormal0.0-0.2Pro[facility] Jr. - Harbor HospitalComment on above:Performed By: #### 84097-4 #### [facility] ([id number]) [address] [place] [address], [place] [address] #### CBCA, PINR, CMP #### [facility] ([id number]) [address], [address] [place], [place] [address]EYADSSWV NEUTROPHIL5.3 X10E9/LNormal1.5-6.6ProSeton Medical Center Harker HeightsComment on above:Performed By: #### 01834-7 #### [facility] ([id number]) [address] [place] [address] #### CBCA, PINR, CMP #### [facility] ([id number]) [address] [facility], [address] [place], [place] [address]Ocvrjnszq/100 WBC (Bld)0.8 %NormalSelect Medical Specialty Hospital - [place] Comment on above:Performed By: #### 56910-9 #### [facility] ([id number]) [address] [place] [address] #### CBCA, PINR, CMP #### [facility] ([id number]) [address] [facility], [address] [place], [place] [address]Kbcgrjttfry (Bld) [#/Vol]0.2 10*3/uLNormal0.0-0.4ProSeton Medical Center Harker HeightsComment on above:Performed By: #### 08080-8 #### [facility] ([id number]) [address] [place] [address]49 #### CBCA, PINR, CMP #### [facility] ([id number]) [address] [facility], [address] [place], [place] [address]Kduczjdrjrp/100 WBC (Bld)2.1 %NormalSelect Medical Specialty Hospital - [place] Comment on above:Performed By: #### 41754-7 #### [facility] ([id number]) [address] [place] [address]14 #### CBCA, PINR, CMP #### [facility] ([id number]) [address] [facility], [address] [place], [place] [address]Lfekqpnkrae distribution width (RBC) [Ratio]13.9 %Normal 11.5-15.0ProSeton Medical Center Harker HeightsComment on above:Performed By: #### 19894-5 #### [facility] ([id number]) [address] [place] [address] #### CBCA, PINR, CMP #### [facility] ([id number]) [address] [facility], [address] [place], [place] [address]Arotlipdaj (Bld) [Volume fraction]39.0 %Hpkubf75-48TtcAjfnduSeton Medical Center Harker HeightsComment on above:Performed By: #### 30388-0 #### [facility] ([id number]) [address] [place] [address]21 #### CBCA, PINR, CMP #### [facility] ([id number]) [address] [facility], [address] [place], [place] [address]Jsqmqurzhz (Bld) [Mass/Vol]13.3 g/wTAzpjjl28.0-17.0Select Medical Specialty Hospital - CincinnatiComment on above:Performed By: #### 25601-9 #### [facility] ([id number]) [address] [place] [address] #### CBCA, PINR, CMP #### [facility] ([id number]) [address] [facility], [address] [place], [place] [address]Ubwlhjdqqdf (Bld) [#/Vol]1.8 10*3/uLNormal1.0-3.5PNew Orleans East Hospitalica Martin Luther King Jr. - Harbor HospitalComment on above:Performed By: #### 18480-1 #### [facility] ([id number]) [address] [place] [address]69 #### CBCA, PINR, CMP #### [facility] ([id number]) [address] [facility], [address] [place], [place] [address]Gskjbdxkvtr/100 WBC (Bld)22.6 %NormalSelect Medical Specialty Hospital - Cincinnati Comment on above:Performed By: #### 90393-7 #### [facility] ([id number]) [address] [place] [address] #### CBCA, PINR, CMP #### [facility] ([id number]) [address], [address] [place], [place] [address]KYD (RBC) [Entitic mass]31.5 irEvxwbe99-16RatUhcymeSeton Medical Center Harker HeightsComment on above:Performed By: #### 45850-1 #### [facility] ([id number]) [address] [place] [address] #### CBCA, PINR, CMP #### [facility] ([id number]) [address], [address] [place], [place] [address]HZTE (RBC) [Mass/Vol]34.0 g/jDTlilir76-32SawPmhkusSeton Medical Center Harker HeightsComment on above:Performed By: #### 80911-2 #### [facility] ([id number]) [address] [place] [address] 87892 #### CBCA, PINR, CMP #### [facility] ([id number]) [address], [address] [place], [place] [address]ILH (RBC) [Entitic vol]93 rHQfubwl48-865QzxXwgckh [facility]remont HospitalComment on above:Performed By: #### 70059-2 #### [facility] ([id number]) [address] [place] [address] #### CBCA, PINR, CMP #### [facility] ([id number]) [address], [address] [place], [place] [address]Kapdhbafc (Bld) [#/Vol]0.7 10*3/uLNormal0-0.9Select Medical Specialty Hospital - CincinnatiComment on above:Performed By: #### 27265-3 #### [facility] ([id number]) [address] [place] [address] #### CBCA, PINR, CMP #### [facility] ([id number]) [address], [address] [place], [place] [address]Sjybrfcrh/100 WBC (Bld)8.2 %[facility] Comment on above:Performed By: #### 94604-3 #### [facility] ([id number]) [address] [place] [address] #### CBCA, PINR, CMP #### [facility] ([id number]) [address], [address] [place], [place] [address]Eqlfycjwbfw/100 WBC (Bld)66.3 %[facility] Comment on above:Performed By: #### 23809-1 #### [facility] ([id number]) [address] [place] [address]957 #### CBCA, PINR, CMP #### [facility] ([id number]) [address], [address] [place], [place] [address]Vycdvwdb mean volume (Bld) [Entitic vol]8.2 fLNormal7-12 [facility]ty Hospital - CincinnatiComment on above:Performed By: #### 59238-2 #### [facility] ([id number]) [address] [place] [address]27 #### CBCA, PINR, CMP #### [facility] ([id number]) [address], [address] [place], [place] [address]Kdahceklh (Bld) [#/Vol]227 10*3/kPVgijyd207-392FoyJqeweg [facility]remont HospitalComment on above:Performed By: #### 20605-3 #### [facility] ([id number]) [address] [place] [address]995 #### CBCA, PINR, CMP #### [facility] ([id number]) [address] [facility], [address] [place], [place] [address]HJN COUNT4.22 X10E12/LNormal4.10-5.70[facility] Comment on above:Performed By: #### 57902-3 #### [facility] ([id number]) [address] [place] [address] 22778 #### CBCA, PINR, CMP #### [facility] ([id number]) [address] [facility], [address] [place] [address]LXX (Bld) [#/Vol]8.0 10*3/uLNormal4.0-11.0Select [facility] Specialty Hospital - CincinnatiComment on above:Performed By: #### 48334-1 #### [facility] ([id number]) [address] [place] [address] 0[address]12 #### CBCA, PINR, CMP #### [facility] ([id number]) [address] [facility], [address] [place], [place] [address]DFP auto differentialon 71-00-6699Xowowavdx (Bld) [#/Vol]0.1 10*3/uLProMedica Health SystemBasophils/100 WBC (Bld)0.8 %ProMedica Health SystemEosinophils (Bld) [#/Vol]0.2 10*3/uLProMedica Health SystemEosinophils/100 WBC (Bld)2.1 %ProMedica Health SystemErythrocyte distribution width (RBC) [Ratio]13.9 %11.5 - 15.0 %ProMedica Health SystemHematocrit (Bld) [Volume fraction]39 %39 - 49 %ProMedica Health SystemHemoglobin (Bld) [Mass/Vol]13.3 g/dL13.0 - 17.0 g/dLJ.W. Ruby Memorial HospitalLymphocytes (Bld) [#/Vol]1.8 10*3/uL [facility]. Ruby Memorial HospitalLymphocytes/100 WBC (Bld)22.6 %Western Reserve HospitalH (RBC) [Entitic mass]31.5 pg27 - [address] Joseph Warren HospitalMCHC (RBC) [Mass/Vol]34 g/dL32 - 36 g/dLJ.W. Ruby Memorial HospitalMCV (RBC) [Entitic vol]93 fL 80 - 100 [facility] HospitalMonocytes (Bld) [#/Vol]0.7 10*3/uLJ.W. Ruby Memorial HospitalMonocytes/100 WBC (Bld)8.2 %[facility]. Ruby Memorial HospitalNeutrophils (Bld) [#/Vol]5.3 10*3/uLJ.W. Ruby Memorial HospitalNeutrophils/100 WBC (Bld)66.3 % [facility]. Ruby Memorial HospitalPlatelet mean volume (Bld) [Entitic vol]8.2 fL7 - 12 fL [facility]. Ruby Memorial HospitalPlatelets (Bld) [#/Vol]227 10*3/[facility] RBC (Bld) [#/Vol]4.22 10*6/[facility] HospitalWBC corrected for nucl RBC Auto (Bld) [#/Vol]8En[facility] Hospital of HarmarvilleCOMPREHENSIVE METABOLIC PANELon 36-13-6138Widecrs [Mass/Vol]4.1 g/dLNormal3.2-5.3PGrand Lake Joint Township District Memorial HospitalComment on above:Performed By: #### 95824-2 #### [facility] ([id number]) [address] [place] [address], [place] [address] #### CBCA, PINR, CMP #### [facility] ([id number]) [address] [place] [address], [address] [place], [place] [address]MXY [Catalytic activity/Vol]40 U/HRitgqd35-621YhyRteuvjSelect Medical Specialty Hospital - CincinnatiComment on above:Performed By: #### 51042-2 #### [facility] ([id number]) [address] [place] [address] #### CBCA, PINR, CMP #### [facility] ([id number]) [address] [facility], [address] [place] [address]FCC [Catalytic activity/Vol]21 U/LNormal0-40ProSet[facility] Medical Center Harker HeightsComment on above:Performed By: #### 99048-0 #### [facility] ([id number]) [address] [place] [address]28 #### CBCA, PINR, CMP #### [facility] ([id number]) [address] [facility], [address] [place], [place] [address]Yqvwf gap [Moles/Vol]7 mmol/LNormal5-15Pro[facility] Center Harker HeightsComment on above:Performed By: #### 50421-7 #### [facility] ([id number]) [address] [place] [address]97 #### CBCA, PINR, CMP #### [facility] ([id number]) [address] [facility], [address] [place], [place] [address]RSN [Catalytic activity/Vol]17 U/LNormal0-41Pro[facility] Center Harker HeightsComment on above:Performed By: #### 00659-6 #### [facility] ([id number]) [address] [place] [address] #### CBCA, PINR, CMP #### [facility] ([id number]) [address] [facility], [address] [place], [place] [address]Kkqyjslph [Mass/Vol]0.4 mg/dLNormal0.3-1.2Pro[facility]. - Harbor HospitalComment on above:Performed By: #### 29762-7 #### [facility] ([id number]) [address] [place] [address] #### CBCA, PINR, CMP #### [facility] ([id number]) [address] [facility], [address] [place] [address]Rgjznvl [Mass/Vol]9.1 mg/dLNormal8.5-10.5PGrand Lake Joint Township District Memorial HospitalComment on above:Performed By: #### 02606-6 #### [facility] ([id number]) [address] [place] [address]26 #### CBCA, PINR, CMP #### [facility] ([id number]) [address] [facility], [address] [place] [address]Dwkljfqk [Moles/Vol]100 mmol/JLcaufx34-894CupTxkoqsSeton Medical Center Harker HeightsComment on above:Performed By: #### 12593-3 #### [facility] ([id number]) [address] [place] [address] #### CBCA, PINR, CMP #### [facility] ([id number]) [address] [facility], [address] [place] [address]NM6 [Moles/Vol]27 mmol/HUynkzs95-88YzfKxabgdGrand Lake Joint Township District Memorial Hospital Comment on above:Performed By: #### 80323-7 #### [facility] ([id number]) [address] [place] [address] #### CBCA, PINR, CMP #### [facility] ([id number]) [address] [facility], [address] [place], [place] [address]Vmyleeaawj [Mass/Vol]1.21 mg/dLNormal0.60-1.30Pro[facility] Medical Center Harker HeightsComment on above:Result Comment: METHOD TRACEABLE TO IDMS STANDARD Performed By: #### 02224-0 #### [facility] ([id number]) [address] [place] [address] #### CBCA, PINR, CMP #### [facility] ([id number]) [address], [address] [place], [place] [address]YKH/1.73 sq M.predicted among non-blacks MDRD (S/P/Bld) [Vol rate/Area]61 mL/min/{1.73_m2}Normal>59ProSet[facility] Medical Center Harker HeightsComment on above:Result Comment: Reported eGFR is based on the CKD-EPI 2020 equation that does not use a race coefficient.Performed By: #### 59755-6 #### [facility] ([id number]) [address] [place] [address]456 #### KRYS PINR, CMP #### [facility] ([id number]) [address], [address] [place], [place] [address]Xxmqihr [Mass/Vol]87 mg/rSIxmicf88-39CpsHbvnbfSeton Medical Center Harker Heights Comment on above:Performed By: #### 04151-8 #### [facility] ([id number]) [address] [place] [address]773 #### KRYS PINR, CMP #### [facility] ([id number]) [address], [address] [place], [place] [address]Vhfdkekyq [Moles/Vol]4.2 mmol/LNormal3.5-5.0Pro[facility] Center Harker HeightsComment on above:Performed By: #### 58463-6 #### [facility] ([id number]) [address] [place] [address]67 #### KRYS PINR, CMP #### [facility] ([id number]) [address], [address] [place], [place] [address]Wmxivqi [Mass/Vol]6.6 g/dLNormal6.0-8.0Pro[facility] Center Harker HeightsComment on above:Performed By: #### 20936-8 #### [facility] ([id number]) [address] [place] [address], [place] [address] #### CBCA, PINR, CMP #### [facility] ([id number]) [address] [facility], [address] [place], [place] [address]Ellgos [Moles/Vol]134 mmol/PWsevsb766-781WexNcvhoj [facility]remont HospitalComment on above:Performed By: #### 71357-5 #### [facility] ([id number]) [address] [place] [address] #### CBCA, PINR, CMP #### [facility] ([id number]) [address] [facility], [address] [place], [place] [address]Zubc nitrogen [Mass/Vol]29 mg/dLHigh5-27ProSet[facility] Medical Center Harker HeightsComment on above:Performed By: #### 57533-3 #### [facility] ([id number]) [address] [place] [address] #### CBCA, PINR, CMP #### [facility] ([id number]) [address] [facility], [address] [place], [place] [address]Lviwlpaznxpye metabolic panelon 69-09-2674Mgzfcwb [Mass/Vol]4.1 g/dL3.2 - 5.3 g/dLProMedica Health SystemALP [Catalytic activity/Vol]40 U/L39 - 130 U/LProMedica Health SystemALT No additional P-5'-P [Catalytic activity/Vol] 21 U/L0 - 40 U/LProMedica Health SystemAnion gap [Moles/Vol]7 mmol/L5 - 15 mmol/LProMedica Health SystemAST [Catalytic activity/Vol]17 U/L0 - 41 U/L [facility]ica Health SystemBilirubin [Mass/Vol]0.4 mg/dL0.3 - 1.2 mg/dLProMedica Health SystemCalcium [Mass/Vol]9.1 mg/dL8.5 - 10.5 mg/dLProMedica Health System Chloride [Moles/Vol]100 mmol/L98 - 109 mmol/[facility] SystemCO2 [Moles/Vol]27 mmol/L22 - 32 mmol/[facility] SystemCreatinine [Mass/Vol] 1.21 mg/dL0.60 - 1.30 mg/dLJ.W. Ruby Memorial HospitalComment on above:METHOD TRACEABLE TO IDFL STANDARDeGFR (CKD-EPI)non-race turwshivb61- [facility]ahann[facility] HospitalComment on above: Reported eGFR is based on the CKD-EPI 2020 equation that does not use a race coefficient. Glucose [Mass/Vol]87 mg/dL65 - 99 mg/dLJ.W. Ruby Memorial HospitalInterpretation and review of laboratory resultsAbnormalCleveland Clinic Lutheran Hospital SystemPotassium [Moles/Vol]4.2 mmol/L3.5 - 5.0 mmol/[facility] Health SystemProtein [Mass/Vol] 6.6 g/dL6.0 - 8.0 g/dLCleveland Clinic Lutheran Hospital SystemSodium [Moles/Vol]134 mmol/L134 - 146 mmol/[facility] SystemUrea nitrogen [Mass/Vol]29 mg/dLHigh5 - 27 mg/dLAurora Health Care Lak[facility] SystemPROTIME AND INRon 08-13-2024 INR Coag (PPP) [Relative time]1.0 {INR}Normal0.8-1.1PGrand Lake Joint Township District Memorial Hospital Comment on above:Performed By: #### 32713-0 #### [facility] ([id number]) [address] [place] [address]25 #### KRYS PINR, CMP #### [facility] ([id number]) [address] [facility], [address] [place], [place] [address]CH Coag (PPP) [Time]11.1 sNormal9.8-13.2PGrand Lake Joint Township District Memorial HospitalComment on above:Performed By: #### 17440-8 #### [facility] ([id number]) [address] [place] [address] #### CBCA, PINR, CMP #### [facility] ([id number]) [address] [facility], [address] [place], [place] [address]Ocqwmes & INRon 31-60-5074UXQ Coag (PPP) [Relative time]1 {INR} [facility] SystemPT Coag (PPP) [Time]11.1 [facility] SystemURINALYSISon 82-19-7131Bcftrpftd Ql (U)NegativeNormalNEG [facility] - CincinnatiComment on above:Performed By: #### UA #### [facility] ([id number]) [address] [facility], [address] [place], [place] [address]FBNQF/HGBNegativeNormalNEGSelect Medical Specialty Hospital - CincinnatiComment on above:Performed By: #### UA #### [facility] ([id number]) [facility] [facility], [address] [place], [place] [address]Mjwdc (U)YELLOWNormalYELLOWSelect Medical Specialty Hospital - CincinnatiComment on above:Performed By: #### UA #### [facility] ([id number]) [facility] [facility], [address] [place], [place] [address]Ggugnmh Ql (U)NegativeNormalNEGSelect Medical Specialty Hospital - CincinnatiComment on above:Performed By: #### UA #### [facility] ([id number]) [facility] [facility], [address] [place], [place] [address]Wovdfki Ql (U)NegativeNormalNEGSelect Medical Specialty Hospital - CincinnatiComment on above:Performed By: #### UA #### [facility] ([id number]) [address] [facility], [address] [place], [place] [address]Okbzvfzxt esterase Test strip Ql (U)NegativeNormalNEGSelect Medical Specialty Hospital - CincinnatiComharbor oaks hospital on above:Performed By: #### UA #### [facility] ([id number]) [address] [facility], [address] [place], [place] [address]BRSASNRLZPSFVKblmdqceLBGICthJpmlvz [facility]ont HospitalComharbor oaks hospital on above:Performed By: #### UA #### [facility] ([id number]) [address], [address] [place], [place] [address]Knthnmz Ql (U)NegativeNormalNEGSelect Medical Specialty Hospital - CincinnatiComment on above:Performed By: #### UA #### [facility] ([id number]) [address] [facility], [address] [place], [place] [address]bD (U)6.0 [pH]Normal5.0-8.5PGrand Lake Joint Township District Memorial HospitalComment on above:Performed By: #### UA #### [facility] ([id number]) [address] [place] [address], [address] [place], [place] [address]Pgvxizj Ql (U)TraceAbnormalNEGSelect Medical Specialty Hospital - CincinnatiComment on above:Performed By: #### UA #### [facility] ([id number]) [address] [place] [address], [address] [place], [place] [address]H.B.CELLS<5Pvfffe0-7HakXydoqfGrand Lake Joint Township District Memorial HospitalComment on above: Performed By: #### UA #### [facility] ([id number]) [address] [place] [address], [address] [place], [place] [address]Bgogmzjs gravity (U) [Rel density]1.361Ozcptb0.003-1.035 [facility] - Harbor HospitalComment on above:Performed By: #### UA #### [facility] ([id number]) [address] [place] [address], [address] [place], [place] [address]ZICHZAJLJSQSQQDlvjwdKNEUMNfrOhpvky Fremont HospitalComment on above:Performed By: #### UA #### [facility] ([id number]) [address] [place] [address], [address] [place], [place] [address]Tfqcvajjoofx (U) [Mass/Vol]mg/dLNormal<1.1PGrand Lake Joint Township District Memorial HospitalComment on above:Performed By: #### UA #### [facility] ([id number]) [address] [place] [address], [address] [place], [place] [address]D.B.CELLS1 /hpfNormal0-5PGrand Lake Joint Township District Memorial HospitalComment on above:Performed By: #### UA #### [facility] ([id number]) [address], [address] [place], [place] [address]KEEEC CULTUREon [id number] identified Cx Nom (U)CULTURE RESULTS <10,000 ORGANISMS/ML NORMAL URO GENITAL FLORAProMedica Fostoria Community Hospital Comment on above:Performed By: #### 630-4 #### [facility] ([id number]) [address], [address] [place], [place] [address]qENG Coag (Bld) [Time]on 62-59-5915QSGPHeartland Behavioral Health ServicesaPTT Coag (PPP) [Time]on 12-40-2613EkeUlkpxrMercy Health St. Joseph Warren HospitalaPTT Coag (Bld) [Time]35 sNormal 26-37[facility] Hospital - CincinnatiComment on above:Result Comment: NEW REFERENCE RANGEPerformed By: #### [id number] #### [facility] ([id number]) [address] [place] [address], [place] [address] #### CBCA, PINR, CMP #### [facility] ([id number]) [address], [address] [place], [place] [address]Dvtvudzrc partial thromboplastin time (aPTT) in platelet poor plasma by coagulation aOrdered By: Queta Tilley on 11-29-5292hMPZ Coag (PPP) [Time]33.7 s25.1-36.5FWooster Community HospitalComment on above:A hematocrit value greater than 55% may lead to inaccurate results in coagulation testing. Patientshaving hematocrit values >55% require a special collection tube for coagulation studies. Please contact the laboratory at [phone] for redraw instructions.Alanine aminotransferase [Enzymatic activity/volume] in Serum or PlasmaOrdered By: Queta Tilley on 69-77-2255YUC [Catalytic activity/Vol]22 U/LNormal7-52[facility] & Brentwood HospitalComment on above: Performed By: #### CMP #### [place] [address] USAAlbumin [Mass/volume] in Serum or Plasma by Bromocresol green (BCG) dye binding methoOrdered By: Queta Tilley on 84-56-6582Ngscnue BCG dye [Mass/Vol]4.6 g/dL3.5-5.7FWooster Community HospitalAlkaline phosphatase [Enzymatic activity/volume] in Serum or PlasmaOrdered By: Queta Tilley on 74-62-6438ZDX [Catalytic activity/Vol]37 U/GEmllrn72-827GyjarskcySuburban Community Hospital & Brentwood HospitalComment on above:Result Comment: PERFORMED BY: [place] [address] PATHOLOGIST PLASTER MIXER HUGO AVALOS M.D.Performed By: #### CMP #### [place] [address] USAAspartate aminotransferase [Enzymatic activity/volume] in Serum or PlasmaOrdered By: Queta Tilley on 82-69-0881ZEM [Catalytic activity/Vol]16 U/EPgysxh62-97HhiaqbyarSuburban Community Hospital & Brentwood HospitalComment on above: Performed By: #### CMP #### [place] [address] USAAutomated basophil %Ordered By: Queta Tilley on 19-63-2193Jsicvhizy/100 WBC (Bld)0.6 %Normal.[facility] Comment on above:Performed By: #### CBC #### [place] [address] USAAutomated basophil countOrdered By: Queta Tilley on 21-21-7912Hhhppdbit (Bld) [#/Vol]0.1 10*3/uLNormal0.0-0.2FWooster Community HospitalComment on above:Result Comment: PERFORMED BY: [place] [address] PATHOLOGIST PLASTER MIXER HUGO AVALOS M.D.Performed By: #### CBC #### [place] [address] USAAutomated blood monocyte countOrdered By: Queta Tilley on 97-72-4203Bjijkalzg (Bld) [#/Vol]0.8 10*3/uLNormal0.0-0.8[facility] Brentwood HospitalComment on above:Performed By: #### CBC #### [facility] [address] [place] [address] USAAutomated eosinophil %Ordered By: Queta Tilley on 52-07-8463Chouyrowhmx/100 WBC (Bld)0.8 %Normal.[facility] Comment on above:Performed By: #### CBC #### [place] [address] USAAutomated eosinophil countOrdered By: Queta Tilley on 90-05-3129Vikgrawbify (Bld) [#/Vol]0.1 10*3/uLNormal0.0-0.45[facility] Brentwood HospitalComment on above:Performed By: #### CBC #### [place] [address] USAAutomated monocyte %Ordered By: Queta Tilley on 12-84-8701Gxwzalqvt/100 WBC (Bld)8.0 %Normal.[facility] Comment on above:Performed By: #### CBC #### [place] [address] USAAutomated neutrophil %Ordered By: Queta Tilley on 90-01-2968Fmbhktkydnu/100 WBC (Bld)64.7 %Normal.[facility] & Brentwood HospitalComment on above:Performed By: #### CBC #### [place] [address] USABilirubin Test strip Ql (U)Ordered By: Queta Tilley on 38-21-4262Rxnesewve Ql (U)NegativeNegativeSuburban Community Hospital & [facility] Hospital Bilirubin.total [Mass/volume] in Serum or PlasmaOrdered By: Queta Tilley on 27-05-6902Abuuigaxj [Mass/Vol]0.5 mg/dLNormal0.3-1.0[facility] Brentwood HospitalComment on above:Performed By: #### CMP #### [place] [address] USACalcium [Mass/volume] in Serum or PlasmaOrdered By: Quetapippa Tilley on 00-31-3354Zljgueo [Mass/Vol]9.7 mg/dLNormal8.6-10.3FWooster Community HospitalComment on above:Performed By: #### CMP #### [place] [address] USACarbon dioxide, total [Moles/volume] in Serum or Plasma Ordered By: Queta Tilley on 15-67-4120RS3 [Moles/Vol]27.0 mmol/VFubbcs55.0-31.0 [facility] Brentwood HospitalComment on above:Performed By: #### CMP #### [place] [address] USAChloride [Moles/volume] in Serum or PlasmaOrdered By: Queta Tilley on 54-09-3205Pgbcezac [Moles/Vol]97 mmol/IXni93-583CxeykmsqcSuburban Community Hospital & Brentwood HospitalComment on above:Performed By: #### CMP #### [place] [address] USAColor of Urine by AutoOrdered By: Queta Tilley on 06-66-9877Gsrqx (U)YellowNormalYellowSuburban Community Hospital & Brentwood HospitalComment on above:Order Comment: Name Collection Type:: Clean-Voided MidstreamPerformed By: #### UA #### [place] [address] USAComplete Blood Count Auto Diffon 07-16-9266Nhgh Corpuscular HGB Conc33.6 g/pNAumbzp56.5-35.6The [facility] Hospital Physician GroupComment on above:Performed By: #### CBC #### [place] [address] USANRBC%0.4 /100{WBC}Normal0-0.5[facility] Comment on above:Performed By: #### CBC #### [place] [address] USAComprehensive Metabolic Panelon 95-96-1176Jsoiczu [Mass/Vol]4.6 g/dLNormal3.5-5.7The [facility] Hospital Physician GroupComment on above: Performed By: #### CMP #### [facility] [address] [place] [id number] USAGFR/1.73 sq M.predicted MDRD (S/P/Bld) [Vol rate/Area] mL/min/{1.73_m2}NormalThe Critical Access Hospital Physician GroupComment on above:Performed By: #### CMP #### [facility] [address] [place] [address] USACreatinine [Mass/volume] in Serum or PlasmaOrdered By: Queta Tilley on 19-74-2774Czzcccnaip [Mass/Vol]1.19 mg/dLNormal0.70-1.30 [facility] Brentwood HospitalComment on above:Performed By: #### CMP #### [place] [id number] USAECG 12 lead ECGon 67-99-2729ZTD 12 lead ECGCHILDREN'S [facility] Main [place] [address] [place] [address] Electrocardiograph Report Signed Patient: Amina Lim MR#: [id number] 4 : 1945 Acct:[id number] Age/Sex: 78 / M ADM Date: 03/18/24 Loc: Room: Type: [facility] Attending Dr: Queta Tilley PA-C Ordering Provider: [...] Signed By Nitin Hammonds MD 0 03/18/24 1508[facility] Physician GroupErythrocyte distribution width [Ratio] by Automated countOrdered By: Queta Tilley on 25-14-1708Rvkxexjklhx distribution width (RBC) [Ratio]14.1 %Ogjxzu60.0-14.8[facility] Brentwood HospitalComment on above:Performed By: #### CBC #### [facility] [address] [place] [id number] USAErythrocytes [#/volume] in Blood by Automated countOrdered By: Queta Tilley on 52-01-5716OTK (Bld) [#/Vol]4.42 10*6/uLNormal3.90-5.60 [facility] Brentwood HospitalComment on above:Performed By: #### CBC #### [place] [id number] USAGlucose [Mass/volume] in Serum or PlasmaOrdered By: Queta Tilley on 72-33-1218Mmuhncg [Mass/Vol]93 mg/yYNjfwoh13-805MzxuzibcnSuburban Community Hospital & Brentwood HospitalComment on above:ADA recommended reference rangeRandom Glucose Reference Range is dependent on time and content of last meal. Glucose of more than 200 mg/dL in a nonstressed, ambulatory subject supports the diagnosisof Diabetes Mellitus.Result Comment: Random Glucose Reference Range is dependent on time and content of last meal. Glucose of more than 200 mg/dL in a nonstressed, ambulatory subject supports the diagnosis of Diabetes Mellitus. ADA recommended reference rangePerformed By: #### CMP #### [place] [id number] USAGlucose [Mass/volume] in Urine by Test stripOrdered By: Queta Tilley on 98-39-6218Gqmzzsy Test strip (U) [Mass/Vol]Normal mg/dLNoal [facility] & Brentwood HospitalHematocrit [Volume Fraction] of Blood by Automated countOrdered By: Queta Tilley on 30-39-8861Qwqiiapaif (Bld) [Volume fraction]41.0 %Wwffdn16.8-50.0[facility] Brentwood HospitalComment on above: Performed By: #### CBC #### [facility] [address] [place] [address] USAHemoglobin Test strip Ql (U)Ordered By: Queta Tilley on 28-25-0245Umdvimzzed Ql (U)NegativeNegativeSuburban Community Hospital & Brentwood Hospital Hemoglobin [Mass/volume] in BloodOrdered By: Queta Tilley on 03-18-2024 Hemoglobin (Bld) [Mass/Vol]13.8 g/eHSergwh45.0-17.0[facility] Brentwood HospitalComment on above:Performed By: #### CBC #### [facility] [address] [place] [address] USAINR in Platelet poor plasma by Coagulation assayOrdered By: Queta Tilley on 11-17-7181XAG Coag (PPP) [Relative time]0.9 {INR}Normal [facility] Brentwood HospitalComment on above:INR Therapeutic Range A) Pre- and Peroperative OAT started two weeks before surgery. NOT HIP SURGERY: 1.5 - 2.5 HIP SURGERY: 2 - 3B) Primary and secondary prevention of venous THROMBOSIS: 2 - 3C) Active venous thrombosis, pulmonary embolismand prevention of recurrent venous thrombosis: 2 - 3D) Prevention of arterial thromboembolismincluding patients with mechanical heart valves: 3 - 4.5Result Comment: INR Therapeutic Range A) Pre- and [...] patients with mechanical heart valves: 3 - 4.5Performed By: #### PT, PTT #### [facility] [address] [place] [address] USAKetones [Presence] in Urine by Test stripOrdered By: Queta Tilley on 52-41-9278Zzgnrsx Ql (U)NegativeNormalNegativeSuburban Community Hospital & Brentwood HospitalComment on above:Order Comment: Name Collection Type:: Clean-Voided MidstreamPerformed By: #### UA #### [facility] [address] [place] [address] USALeukocyte esterase [Presence] in Urine by Test strip Ordered By: Queta Tilley on 52-64-9679Qjouwsrav esterase Test strip Ql (U) NegativeNormalNegativeSuburban Community Hospital & Brentwood HospitalComment on above:Order Comment: Name Collection Type:: Clean-Voided MidstreamPerformed By: #### UA #### [place] [address] USALeukocytes [#/volume] corrected for nucleated erythrocytes in Blood by Automated counOrdered By: Queta Tilley on 64-51-2252JYA corrected for nucl RBC Auto (Bld) [#/Vol]9.4 10*3/uL4.1-10.5FWooster Community HospitalLeukocytes [#/volume] in Blood by Automated countOrdered By: Queta Tilley on 10-20-3802CBH (Bld) [#/Vol]9.4 10*3/uLNormal4.1-10.5FWooster Community HospitalComment on above:Performed By: #### CBC #### [place] [address] USALymphocytes [#/volume] in Blood by Automated countOrdered By: Queta Tilley on 84-44-8707Zpqeyhyppqn (Bld) [#/Vol]2.4 10*3/uLNormal 1.00-4.8[facility] Brent[facility] HospitalComment on above:Performed By: #### CBC #### [place] [address] USALymphocytes/100 leukocytes in Blood by Automated count Ordered By: Queta Tilley on 43-20-7815Pjbvxpqblii/100 WBC (Bld)25.9 %Normal. [facility] & Brentwood HospitalComment on above:Performed By: #### CBC #### [place] [address] USAMCH [Entitic mass] by Automated countOrdered By: Queta Tilley on 50-46-3603CKO (RBC) [Entitic mass]31.2 rrBlzeri41.5-35.2FWooster Community HospitalComment on above:Performed By: #### CBC #### [facility] [address] [place] [id number] [facility]HC Auto (RBC) [Mass/Vol]Ordered By: Queta Tilley on 18-90-0735QSQR (RBC) [Mass/Vol]33.6 g/dL32.5-35.6FWooster Community HospitalMCV [Entitic volume] by Automated countOrdered By: Queta Tilley on 05-04-9294EVO (RBC) [Entitic vol]92.9 vTWpyqzg66.5-101[facility] & Brentwood HospitalComment on above:Performed By: #### CBC #### [facility] [address] [place] [address] USANeutrophils [#/volume] in Blood by Automated countOrdered By: Queta Tilley on 90-41-3431Vropaqzyvtz (Bld) [#/Vol]6.1 10*3/uLNormal1.8-7.7 [facility] Brentwood HospitalComment on above:Performed By: #### CBC #### [facility] [address] [place] [address] USANitrite Test strip Ql (U)Ordered By: Queta Tilley on 54-80-9568Ptmdvrw Ql (U)NegativeNegativeSuburban Community Hospital & Brentwood HospitalNo Panel InformationOrdered By: Queta Tilley on 94-50-0309Bpavcvzdw GFR (CKD-EPI)> 60.0 mL/MinSuburban Community Hospital & Brentwood HospitalPharmacy Creatinine Clearance (Chem N/AFWooster Community HospitalNucleated erythrocytes [Presence] in Blood by Automated countOrdered By: Queta Tilley on 39-44-5036Jchpbfaay RBC Auto Ql (Bld)0.4 /100{WBC}0-0.5FWooster Community HospitalPartial Thromboplastin Timeon 68-05-2580qAZG Coag (Bld) [Time]33.7 bCasbmg64.1-36.5The [facility] Hospital Physician GroupComment on above:Result Comment: A hematocrit value greater than 55% may lead to inaccurate results in coagulation testing. Patients having hematocrit values >55% require a special collection tube for coagulation studies. Please contact the laboratory at [phone] for redraw instructions. PERFORMED BY: [place] [address] PATHOLOGIST PLASTER MIXER HUGO AVALOS M.D.Performed By: #### PT, PTT #### [place] [address] USAPlatelet mean volume [Entitic volume] in Blood by Automated countOrdered By: Queta Tilley on 50-45-6269Fatsgnkr mean volume (Bld) [Entitic vol]7.7 fLNormal6.6-10.1FWooster Community HospitalComment on above:Performed By: #### CBC #### [place] [address] USAPlatelets [#/volume] in Blood by Automated countOrdered By: Queta Tilley on 96-93-5739Dqdgostoy (Bld) [#/Vol]220 10*3/fKNhtjpz873-521 [facility] Brentwood HospitalComment on above:Performed By: #### CBC #### [place] [address] USAPotassium [Moles/volume] in Serum or PlasmaOrdered By: Queta Tilley on 42-14-4329Fkruauptw [Moles/Vol]4.8 mmol/LNormal3.5-5.1FWooster Community HospitalComment on above:Performed By: #### CMP #### [place] [address] USAProtein Test strip (U) [Mass/Vol]Ordered By: Queta Tilley on 42-93-6505Kftzpps (U) [Mass/Vol]NegativeNegativeSuburban Community Hospital & Brentwood HospitalProtein [Mass/volume] in Serum or PlasmaOrdered By: Queta Tilley on 02-92-4639Xxvowkt [Mass/Vol]6.9 g/dLNormal6.4-8.9[facility] Brentwood HospitalComment on above:Performed By: #### CMP #### [place] [address] USAProthrombin time (PT)Ordered By: Queta Tilley on 16-13-2471TO Coag (PPP) [Time]11.0 sNormal9.0-12.9[facility] Brentwood HospitalComment on above:A hematocrit value greater than 55% may lead to inaccurate results in coagulation testing. Patientshaving hematocrit values >55% require a special collection tube for coagulation studies. Please contact the laboratory at [phone] for redraw instructions.Result Comment: A hematocrit value greater than 55% may lead to inaccurate results in coagulation testing. Patients having hematocrit values >55% require a special collection tube for coagulation studies. Please contact the laboratory at [phone] for redraw instructions.Performed By: #### PT, PTT #### [place] [address] USASerum globulin measurement by calculation (mass/volume) Ordered By: Queta Tilley on 30-57-1174Qjofqalm (S) [Mass/Vol]2.3 g/dLNormal [facility] Brentwood HospitalComment on above:Performed By: #### CMP #### [place] [address] USASerum or plasma albumin/globulin mass ratioOrdered By: Queta Tilley on 47-46-0496Xorzhsx/Globulin [Mass ratio]2.0 {ratio}Normal [facility] Brentwood HospitalComment on above:Performed By: #### CMP #### [place] [address] USASerum or plasma anion gap determinationOrdered By: Queta Tilley on 79-92-7871Owitb gap [Moles/Vol]11.8 mmol/LNormal6.0-15.0[facility] Brentwood HospitalComment on above:Performed By: #### CMP #### [place] [address] USASodium [Moles/volume] in Serum or PlasmaOrdered By: Queta Tilley on 31-21-7133Xlmtrv [Moles/Vol]131 mmol/WQhy893-927LousesokvSuburban Community Hospital & Brentwood HospitalComment on above:Performed By: #### CMP #### [place] [address] USASpecific gravity Test strip (U) [Rel density]Ordered By: Queta Tilley on 93-05-9878Fgtckbyc gravity (U) [Rel density]1.0221.001-1.030 [facility] Brentwood HospitalUrea nitrogen [Mass/volume] in Serum or Plasma Ordered By: Queta Tilley on 21-61-1691Cxal nitrogen [Mass/Vol]26 mg/dLHigh7-25 [facility] Brentwood HospitalComment on above:Performed By: #### CMP #### [place] [address] USAUrinalysison 07-20-4454Bbtlevlhk,UrineNegativeNormal NegativeThe Critical Access Hospital Physician GroupComment on above:Order Comment: Name Collection Type:: Clean-Voided MidstreamPerformed By: #### UA #### [place] [address] USAGlucose Ql (U)NormalNormalNormalThe Critical Access Hospital Physician GroupComment on above:Order Comment: Name Collection Type:: Clean-Voided MidstreamPerformed By: #### UA #### [place] [address] USANitrite,UrineNegativeNormalNegativeThe Critical Access Hospital Physician GroupComment on above:Order Comment: Name Collection Type:: Clean-Voided MidstreamPerformed By: #### UA #### [place] [address] USAOccult Blood,UrineNegativeNormalNegativeThe Critical Access Hospital Physician GroupComment on above:Order Comment: Name Collection Type:: Clean- Voided MidstreamResult Comment: PERFORMED BY: [place] [address] PATHOLOGIST PLASTER MIXER HUGO AVALOS M.D.Performed By: #### UA #### [place] [address] USAProtein,UrineNegativeNormalNegativeThe Critical Access Hospital Physician GroupComment on above:Order Comment: Name Collection Type:: Clean-Voided MidstreamPerformed By: #### UA #### [place] [address] USASpecificy Milo,Urine1.403Jrbgir8.001-1.030[facility] Physician GroupComment on above:Order Comment: Name Collection Type:: Clean- Voided MidstreamPerformed By: #### UA #### [place] [address] USAUrobilinogen,UrineNormalNormalNormalThe [facility] Hospital Physician [facility] HospitalComment on above:Order Comment: Name Collection Type:: Clean- Voided MidstreamPerformed By: #### UA #### [place] [address] USAUrine Cultureon 71-19-6598Ytwwwlur identified Cx Nom (U)No Growth 2 Days PERFORMED BY: [place] [address] PATHOLOGIST PLASTER MIXER HUGO AVALOS M.D.NormalHca [facility] Physician [facility] HospitalComment on above:Performed By: #### CUU #### [place] [address] USAUrine appearanceOrdered By: Queta Tilley on 03-18-2024 Appearance (U)ClearNoalClearSuburban Community Hospital & Brentwood HospitalComment on above: Order Comment: Name Collection Type:: Clean-Voided MidstreamPerformed By: #### UA #### [place] [address] USAUrobilinogen Test strip (U) [Mass/Vol]Ordered By: Queta Tilley on 58-91-2645Yhekhtaqelzs (U) [Mass/Vol]Normal mg/dLNoKindred Hospital DaytonXR bonelength lower extremityon 09-31-7457VP [facility] extremityCHILDR[facility] Main [place] [address] [place] [address] XRay Report Signed Patient: Amina Lim MR#: [id number] 4 : 1945 Acct:[id number] Age/Sex: 78 / M ADM Date: 03/18/24 Loc: Room: Type: [facility] Attending Dr: Queta Tilley PA-C Copies to: [...] Kelly Banegas M.D.03/18/2024 4:55 PM Dictation Location: [place] [address] Transcribed By: [facility] 03/18/241654 Dictated By: Kelly Banegas II, MD 03/18/241653 Signed By: 03/18/241654[facility] Physician GrouppH of Urine by Test stripOrdered By: Queta Tilley on 19-23-6329sQ (U)5.5 [pH]Normal5.0-9.0[facility] Brentwood HospitalComment on above:Order Comment: Name Collection Type:: Clean- Voided MidstreamPerformed By: #### UA #### [facility] [address] [place] [address] USAXR KNEE DUSTIN 3 Von 35-12-1528AD KNEE DUSTIN 3 VEXAM: XR KNEE DUSTIN 3 V HISTORY: Osteoarthritis COMPARISON: None. TECHNIQUE: 3 views FINDINGS: There is no acute fracture or dislocation. There are mild degenerative changes. The soft tissues are unremarkable. IMPRESSION: Mild degenerative changes as above. Electronically authenticated by: KELLY LARSON Date: 2023-03-15 12:38NoProMedica Fostoria Community HospitalCovid-19 PCR (CVDTBH)on 89-82-7370SBAM-CoV-2 (COVID-19) RNA DHARA+probe Ql (Unsp spec)Not detectedNormalNOT DETECTEDProvidence Hospital Comment on above:Result Comment: When diagnostic testing is negative, the [...] for this test is supported by the Bureau Chief of Health and Human Service's declaration that circumstances exist to justify the emergency use of in vitro diagnostics for the detection and/or diagnosis of the virus that causes COVID-19. This EUA will remain in effect for the duration of the COVID-19 declaration justifying emergency of IVDs, unless it is terminated or revoked by the FDA (after which the test may no longer be used).Performed By: #### CVDTBH ####[facility] [address] [place] [address]Dr. Xena Lucas A AND B AGon 25-58-3033AIYRNZIRWKEAR BELOWGreen Cross Hospital on above:Result Comment: Negative for Flu A protein angiten. Infection due to Flu A cannot be ruled out. FluA angiten in the sample may be below the detection limit of the test.Performed By: #### INFLUAB #### [facility] [address] [place] [address] Dr. Xena PickardINFLUBNEGHSOLGA [facility] on above: Result Comment: Negative for Flu B protein antigen. Infection due to Flu B cannot be ruled out. FluB antigen in the sample may be below the detection limit of the test.Performed By: #### INFLUAB #### [facility] [address] [place] [address] Dr. Xena Paniagua AGNegativeNormalNEGATIVE SEE COMMENTThe [facility] on above:Performed By: #### INFLUAB #### [facility] [address] [place] [address] Dr. Xena Allen AGNegativeNormalNEGATIVE SEE COMMENTThe Lizette HospitalComment on above:Performed By: #### INFLUAB #### [facility] [address] [place] [address] Dr. Xena PickardINTERNAL CONTROLSWithin Normal LimitsNormalWithin Normal Limits The [facility] CenterComment on above:Performed By: #### INFLUAB #### [facility] [address] [place] [address] Dr. Xena PickardINSULINon 38-77-8573Wkireoz21.1 uIU/mLNormal2.6-24.9The [facility] Medical CenterComment on above:Performed By: #### INSULIN ####[facility] [address] [place] [address]Dr. Xena PickardPTH INTACTon 15-05-3128NZK, Sospva96 pg/mLCritically dvf02-49Uii [facility] on above:Performed By: #### PTHINT #### [facility] [address] [place] [address] Dr. Xena PickardCBC AUTO DIFFon 16-56-4536WXFD #0.0 103/ulNormal0.0-0.1The [facility] Medical CenterComment on above:Performed By: #### CBC #### [facility] [address] [place] [address] Dr. Xena PickardBasophils/100 WBC (Bld)0.6 %Normal0.2-2.0[facility] Comment on above:Performed By: #### CBC #### [facility] [address] [place] [address] Dr. Xena Burgess #0.2 103/ulNormal0.0-0.7The [facility] Medical CenterComharbor oaks hospital on above: Performed By: #### CBC #### [facility] [address] [place] [address] Dr. Xena Lyonosinophils/100 WBC (Bld)2.5 %Normal0.9-7.0The [facility] Comment on above:Performed By: #### CBC #### [facility] [address] [place] [address] Dr. Xena Lyonrythrocyte distribution width (RBC) [Ratio]13.5 %Lksnuz85.0-15.0 The [facility] Medical CenterComment on above:Performed By: #### CBC #### [facility] [address] [place] [address] Dr. Xena PickardHematocrit (Bld) [Volume fraction]38.3 %Critically low42.0-54.0 The [facility]ayette Medical CenterComment on above:Performed By: #### CBC #### [facility] [address] [place] [address] Dr. Xena PickardHemoglobin (Bld) [Mass/Vol]13.0 g/dLCritically low14.0-18.0The [facility] CenterComment on above:Performed By: #### CBC #### [facility] [address] [place] [address] Dr. Xena Barakat #0.03 10e3/ulNormal0.00-0.03The [facility] CenterComment on above:Performed By: #### CBC #### [facility] [address] [place] [address] Dr. Xena Barakat %0.4 %Normal0.0-0.5The [facility] CenterComment on above: Performed By: #### CBC #### [facility] [address] [place] [address] Dr. Xena Singer #2.2 103/ulNormal1.2-3.8The [facility] CenterComment on above:Performed By: #### CBC #### [facility] [address] [place] [address] Dr. Xena Huffmphocytes/100 WBC (Bld)31.5 %Cjuqgg55.5-60.0The [facility] CenterComment on above:Performed By: #### CBC #### [facility] [address] [place] [address] Dr. Xena WhiteheadUAL DIFF REQNONormalThe [facility] CenterComment on above: Performed By: #### CBC #### [facility] [address] [place] [address] Dr. Xena Parra (RBC) [Entitic mass]30.5 ndJrtkxp08.9-34.0The [facility] CenterComment on above:Performed By: #### CBC #### [facility] [address] [place] [address] Dr. Xena Vazquez (RBC) [Mass/Vol]33.9 g/mPJcsvlj31.9-35.2The [facility] CenterComment on above:Performed By: #### CBC #### [facility] [address] [place] [address] Dr. Xena VazquezV (RBC) [Entitic vol]89.9 wAEbbjlv18.0-94.0The [facility] CenterComment on above:Performed By: #### CBC #### [facility] [address] [place] [address] Dr. Xena Uribe #0.6 103/ulNormal0.3-0.8The [facility] CenterComment on above:Performed By: #### CBC #### [facility] [address] [place] [address] Dr. Xena Polancoocytes/100 WBC (Bld)8.2 %Normal1.7-12.0The [facility] Comment on above:Performed By: #### CBC #### [facility] [address] [place] [address] Dr. Xena Mariee #4.0 103/ulNormal1.4-6.5The [facility] CenterComment on above:Performed By: #### CBC #### [facility] [address] [place] [address] Dr. Xena Manningutrophils/100 WBC (Bld)56.8 %Lyngfp02.0-75.0The [facility] CenterComment on above:Performed By: #### CBC #### [facility] [address] [place] [address] Dr. Xena Artlet mean volume (Bld) [Entitic vol]10.2 fLNormal9.5-13.5The [facility] CenterComment on above:Performed By: #### CBC #### [facility] [address] [address] [address] Xena PickardPLT185 103/pnDtqdho592-972Rpd [facility] on above: Performed By: #### CBC #### [facility] [address] [address] [address] Xena PickardRBC4.26 106/ulCritically low4.70-6.10The [facility] CenterComharbor oaks hospital on above:Performed By: #### CBC #### [facility] [address] [address] [address] Xena PickardWBC7.1 103/ulNormal4.0-11.0The [facility] CenterComharbor oaks hospital on above: Performed By: #### CBC #### [facility] [address] [place] [address] Dr. Xena PickardGLYCOHEMOGLOBIN A1Con 14-65-8299ANI RECOMMENDATIONSEE BELOWDunlap Memorial HospitalComharbor oaks hospital on above:Result Comment: ADA RECOMMENDED LIMIT 4.0 - 6.0 ADA THERAPEUTIC TARGET < 7.0 ACTION SUGGESTED > 7.0Performed By: #### A1C #### [facility] [address] [place] [address] Dr. Xena PickardGlucose [Mass/Vol]120 mg/dLNoSelect Medical Specialty Hospital - Trumbull on above:Performed By: #### A1C #### [facility] [address] [place] [address] Dr. Xena PickardHbA1c (Bld) [Mass fraction]5.8 %Normal4.5-6.2The [facility] on above:Performed By: #### A1C #### [facility] [address] [place] [address] Dr. Xena PickardLIPID PROFILEon 47-76-1102SZTV-HDL RATIO NORMSEE [facility] on above:Result Comment: 3.3 - 4.4 LOW RISK 4.4 - 7.1 AVERAGE RISK 7.1 - 11.0 MODERATE RISK >11.0 HIGH RISKPerformed By: #### LIPID, URIC, CMP #### [facility] [address] [address] [address] Xena PickardCholesterol [Mass/Vol]166 mg/dLNormal<=200[facility] Comment on above:Performed By: #### LIPID, URIC, CMP #### [facility] [address] [address] [address] Xena PickardCholesterol in HDL [Mass/Vol]52 mg/wXLaohrk27-43Joa [facility] CenterComment on above:Performed By: #### LIPID, URIC, CMP #### [facility] [address] [address] [address] Xena PickardCholesterol in LDL [Mass/Vol]100.8 mg/dLACMC Healthcare SystemComment on above:Performed By: #### LIPID, URIC, CMP #### [facility] [address] [place] [address] Dr. Xena Silveiraesterjhon.total/Cholesterol in HDL [Mass ratio]3.2 {ratio} NormalThe [facility] Medical CenterComment on above:Performed By: #### LIPID, URIC, CMP #### [facility] [address] [place] [address] Dr. Xena Armenta NORMAL> or = 60 mg/dl - LOW CARDIOVASCULAR RISK <40 mg/dl - HIGH CARDIOVASCULAR RISKACMC Healthcare SystemComment on above:Performed By: #### LIPID, URIC, CMP #### [facility] [address] [place] [address] Dr. Xena PickardLDL CALC NORMALSEE BELOWACMC Healthcare SystemComment on above:Result Comment: <100 mg/dl OPTIMAL 100 - 129 mg/dl NEAR OR ABOVE OPTIMAL 130 - 159 mg/dl BORDERLINE HIGH 160 - 189 mg/dl HIGH >190 mg/dl VERY HIGH Performed By: #### LIPID, URIC, CMP #### [facility] [address] [place] [address] Dr. Xena PickardTriglyceride [Mass/Vol]66 mg/dLNormal<=150The [facility] Comment on above:Performed By: #### LIPID, URIC, CMP #### [facility] [address] [place], [place] [address] Dr. Xena GilLDL CALC13.2 mg/dLNormalThe [facility] CenterComment on above: Performed By: #### LIPID, URIC, CMP #### [facility] [address] [address] [address] Xena PickardPHOSPHORUSon 53-97-1387Nueopplax [Mass/Vol]3.3 mg/dLNormal2.6-4.7 The [facility] CenterComment on above:Performed By: #### PHOS ####[facility] [address] [address]Dr. Xena PickardPROF 14(COMP METB)on 83-30-7314Yorcekf [Mass/Vol]3.9 g/dLNormal3.4-5.0The [facility] Hospitalment on above:Performed By: #### LIPID, URIC, CMP #### [facility] [address] [address] [address] Xena PickardAlbumin/Globulin [Mass ratio]1.2 {ratio}NormalThe [facility] Hospitalment on above:Performed By: #### LIPID, URIC, CMP #### [facility] [address] [address] [address] Xena Moran [Catalytic activity/Vol]44 U/LCritically zhs93-874Opj [facility] on above:Performed By: #### LIPID, URIC, CMP #### [facility] [address] [address] [address] Xena Vincent [Catalytic activity/Vol]38 U/QUwowvf69-94Cdy [facility] Hospitalment on above:Performed By: #### LIPID, URIC, CMP #### [facility] [address] [address] [address] Xena Hopkins gap [Moles/Vol]12.3 mmol/LNormalThe [facility] on above:Performed By: #### LIPID, URIC, CMP #### [facility] [address] [address] [address] Xena Deleon [Catalytic activity/Vol]16 U/HAdtedm80-79Ecd [facility] CenterComment on above:Performed By: #### LIPID, URIC, CMP #### [facility] [address] [address] [address] Xena PickardBilirubin [Mass/Vol]0.5 mg/dLNormal0.2-1.0[facility] Comment on above:Performed By: #### LIPID, URIC, CMP #### [facility] [address] [place] [address] Dr. Xena PickardCalcium [Mass/Vol]8.7 mg/dLNormal8.5-10.1The [facility] Comment on above:Performed By: #### LIPID, URIC, CMP #### [facility] [address] [place] [address] Dr. Xena PickardChloride [Moles/Vol]101 mmol/SFaaioz74-150Mws [facility] Comment on above:Performed By: #### LIPID, URIC, CMP #### [facility] [address] [place] [address] Dr. Xena PickardCO2 [Moles/Vol]26.8 mmol/PIicown06.0-32.0The [facility] Comment on above:Performed By: #### LIPID, URIC, CMP #### [facility] [address] [place] [address] Dr. Xena PickardCreatinine [Mass/Vol]1.41 mg/dLCritically high0.70-1.30The [facility] CenterComment on above:Performed By: #### LIPID, URIC, CMP #### [facility] [address] [place] [address] Dr. Xena LyonGFR-AF SELWFNWO77 mL/min/1.56n0Qrmhcyhxxn low>=60The [facility] CenterComment on above:Performed By: #### LIPID, URIC, CMP #### [facility] [address] [place] [address] Dr. Xena LyonGFR-NON AF MNLHWERZ58 mL/min/1.40h8Dyxorlujxn low>=60The [facility] CenterComment on above:Performed By: #### LIPID, URIC, CMP #### [facility] [address] [address] [address] Xena PickardGlobulin (S) [Mass/Vol]3.3 g/dLNormMcCullough-Hyde Memorial HospitalComment on above:Performed By: #### LIPID, URIC, CMP #### [facility] [address] [address] [address] Xena PickardGlucose [Mass/Vol]106 mg/nFLxxani79-347TywProvidence Hospital Comment on above:Performed By: #### LIPID, URIC, CMP #### [facility] [address] [place] [address] Dr. Xena PickardPotassium [Moles/Vol]4.1 mmol/LNormal3.5-5.1The [facility] Comment on above:Performed By: #### LIPID, URIC, CMP #### [facility] [address] [place] [address] Dr. Xena PickardProtein [Mass/Vol]7.2 g/dLNormal6.4-8.2The [facility] Comment on above:Performed By: #### LIPID, URIC, CMP #### [facility] [address] [place] [address] Dr. Xena PickardSodium [Moles/Vol]136 mmol/EVhupmt937-715Whm [facility] Comment on above:Performed By: #### LIPID, URIC, CMP #### [facility] [address] [place] [address] Dr. Xena PickardUrea nitrogen [Mass/Vol]33.0 mg/dLCritically high7.0-18.0The [facility] CenterComment on above:Performed By: #### LIPID, URIC, CMP #### [facility] [address] [place] [address] Dr. Xena PickardUrea nitrogen/Creatinine [Mass ratio]23.4 mg/mgNoProMedica Fostoria Community HospitalComment on above:Performed By: #### LIPID, URIC, CMP #### [facility] [address] [place] [address] Dr. Xena PickardURIC ACID SERUMon 69-26-7887Wfths [Mass/Vol]5.1 mg/dLNormal 3.5-7.2The [facility] CenterComment on above:Performed By: #### LIPID, URIC, CMP #### [facility] [address] [address] [address] Xena Antonio T PROTEIN CREAT RATIOon 41-29-5167AJ TOTAL PROTEIN<6.0 Normal<=12.0The [facility] CenterComment on above:Performed By: #### URTPCR #### [facility] [address] [address] [address] Xena Antonio CREAT36.48 mg/cAIogtlw06.00-300.00The [facility] Comment on above:Performed By: #### URTPCR #### [facility] [address] [address] [address] Xena PickardCNNURSEon 94-82-9988FSDSKZCXzbwu Visit (COVAMD) AMINA LIM ([id number]) 1945 M Date Time Provider Department 01/07/21 NEIL PIERCE (LORELEI) COVROCCO During your visit today, we recorded the following information about you: Allergies As of Date: 01/07/2021 (No Known Allergies) Date Reviewed: 10/07/2019 Reviewed by: Sharon (Rn) DOLORES Nunn - Fully Assessed Order(s):Usarium SARS-COV-2 VACCINE 2D DOSE APPT [[id number]] Order #: [id number] Prescriptions as of 01/07/2021 Sig: DOCUSATE SODIUM [...] 1 tablet by mouth once d* OMEGA 5-KAY-CRF-FISH OIL 1,00* Take 1 g by mouth [...] [E78.49] 08/21/2017 Shoulder pain [M25.519] 07/16/2019 Encounter Status:[facility] Reportson 07-00-3273Thp Reports [id number]#1.00CD:127[facility] [id number]#1.00CD:127NoProtestant HospitalCoding Summary.on 15-02-7544Arraer Summary.CODING DATE: 11/27/2019 FINAL [facility] STATUS: Home (Routine DC) PAYOR: Medicare APC DESCRIPTION 5491 Level 1 Intraocular Procedures ADMIT DX: REASON FOR VISIT DX: H25.13 Age-related nuclear cataract, bilateral FINAL DX: PRINCIPAL: H25.13 Age-related nuclear cataract, bilateral SECONDARY: H25.033 Anterior subcapsular polar age-related cataract, bilateral 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 Ludwin Estrada Dictated: 11/25/2019 #[id number] Typed 11/25/2019 #[id number] cc: Althea Koroma M.D.[facility] HospitalComment on above:Result Comment: Electronically Signed By: Althea Koroma MD\.br\Date and Time Signed: 11/26/19 16:05 ESTMain OR Intraoperative Recordon 15-98-9430Cicc OR Intraoperative RecordIntraOp Document Type FT Summary Primary Physician: Althea Koroma MD Finalized Date/Time: 11/26/19 13:40:27 Pt. Name: AMINA LIM Adriano Alamo./Sex: 1945 Male Med Rec #: [id number] Physician: Althea Koroma MD Financial #: [id number] Pt. Type: A Room/Bed: AS0A/ Admit/Disch: 11/25/19 12:23:56 - 11/25/19 15:20:00 Institution: Case Times FT Entry 1 Patient Times In Room 11/25/19 14:12:00 Out Room 11/25/19 14:44:00 Procedure Times Start 11/25/19 14:22:00 Stop 11/25/19 14:42:00 Anesthesia Times Last Modified By: Estella BERNAL, Cortney SINGH 11/25/19 14:43:21 General Comments: 11/26/2019 Chart opened to review and send charges J Forrest AIRCRAFT PARTS ASSEMBLER Case Attendance FT Entry 1 Entry 2 [...] BERNAL, MELIAOR, Estella BERNAL, MELIAOR, Estella BERNAL, MELIAORCortney 11/25/19 Cortney 11/25/19 Cortney 11/25/19 14:43:22 14:43:22 14:43:22 Entry 4 Case Attendee SAMANTHA Soria RN, Ruthann Role Performed Ruby Rails Developer - Primary Time In 11/25/19 14:12:00 Time [...] Procedure Yes Primary Surgeon Althea Koroma MD 11/25/19 14:22:00 Stop 11/25/19 14:42:00 Anesthesia Type [...] LENS(Right) Implant Identification FT Description HIMANSHU IOL [id number] SOFPORT Lot Number [id number] SIZE 20.5 [SZ60INL 20.5][F] Project Management Director FT-[employer]OM[employer] Catalog ?# [id number] 20.5[F] Expiration Date 01/14/24 Unique Device [id number] Identifier (KATHLEEN) Human Readable {01}[id number] Machine Readable [id number] Barcode Barcode Usage Data FT Implant Site [...] Ruthann 11/25/19 14:43 Tabitha Clayton CST 11/26/19 13:40NoProtestant HospitalOperative Reporton 28-91-2451Yxqgazoyq ReportDate of Surgery: 11/25/2019 SURGEON: Althea Koroma M.D. [...] to the surface of the globe. A [employer] manometer was positioned and set at 20 [...] condition. Althea Koroma M.D. lkr Dictated: 11/25/2019 #[id number] Typed: 11/26/2019 #[id number] cc: Althea Koroma M.D.[facility] HospitalComment on above:Result Comment: Electronically Signed By: Althea Koroma MD\.br\Date and Time Signed: 11/26/19 16:05 ESTInpatient Patient Summaryon 67-99-0484Cbvabvjei Patient Summary [address] [address] [facility] Clinical Discharge Instructions PERSON INFORMATION Name: AMINA LIM PHYSICIANS Admitting Physician: Althea Koroma MD Attending Physician: Althea Koroma MD PCP: Narciso Bullock MD Discharge Diagnosis: Cataract; Floppy iris syndrome Comment: PATIENT EDUCATION INFORMATION Instructions: Medication Leaflets: Follow up: With: Address: When: Althea Koroma [address] [place] [address] [address], [place] [address] Business (1) Comments: Call physician [...] 1,000 Milligram By Mouth every day. ascorbic acid/chondroitin/glucosa/marta (Glucosamine Chondroitin) 1TAB By Mouth every day. [...] 400 International unit By Mouth every day. Comment:[facility] HospitalMain OR PACU II Recordon 48-62-0279Swyb OR PACU II RecordPACU Phase II Document Type FT Summary Primary Physician: Althea Koroma MD Finalized Date/Time: 11/25/19 15:24:08 Pt. Name: AMINA LIMO.B./Sex: 1945 Male Med Rec #: [id number] Physician: Althea Koroma MD Financial #: [id number] Pt. Type: A Room/Bed: [place] [address] Admit/Disch: 11/25/19 12:23:56 - 11/25/19 15:20:00 Institution: [facility] Times PACU II FT Pre-Care Text: [...] and monitors body temperature Evaluates postoperative respiratory statusEvaluates postoperative cardiac status Evaluates postoperative neurological status Assesses pain control, collaborated in initiating patient-controlled analgesia and implements alternative methods of pain control Verifiesallergies, administers prescribed medications and solutions, evaluates response to medications Entry 1 In PACU II 11/25/19 14:45:00 Discharge from PACU 11/25/19 15:20:00 II Outcomes Met? Yes Last Modified By: Emy Thomas RN 11/25/19 15:24:06 Post-Care Text: The patient demonstrates knowledge of the expected response to the operative or invasive procedure The patient's care is consistent with the individualized perioperative plan of care The patient's rightto privacy is maintained The patient's value system, [...] with or improved from baseline levels established preoperativelyThe patient's cardiovascular status is consistent with or improved from baseline levels established preoperatively The patient's neurological status is consistent with or improved from baseline levels established preoperatively The patient demonstrates and/or reports adequate pain control throughout the perioperative period The patient received appropriate medication(s), safely administered during the perioperativeperiod Finalized By: Emy Thomas RN Document Signatures Signed By: Emy Thomas RN 11/25/19 15:24NormMount [address] Mary HospitalMain OR Preoperative Recordon 49-30-2972Xgnw OR Preoperative RecordHolding Area Document Type FT Summary Primary Physician: Althea Koroma MD Finalized Date/Time: 11/25/19 12:48:49 Pt. Name: AMINA LIM /Sex: 1945 Male Med Rec #: [id number] Physician: Althea Koroma MD Financial #: [id number] Pt. Type: A Room/Bed: AS0A/ Admit/Disch: 11/25/19 12:23:56 - Institution: Case Times [...] or her perioperative plan of care The patient'sright to privacy is maintained Surgery Checklist FT [...] Signatures Signed By: Cynthia James RN 11/25/19 12:48NoProtestant HospitalPatient Education - Texton 51-53-8146Glfqyzr Education - TextNoProtestant HospitalBasic Metabolic Panlon 84-57-2362Yccrc gap [Moles/Vol]10 mmol/LNormal0-15 [facility] HospitalCalcium [Mass/Vol]8.4 mg/dLLow8.5-10.5[facility] HospitalChloride [Moles/Vol]106 mmol/AGgaluu94-846Fonhda HospitalCO2 [Moles/Vol]21 mmol/ZRop01-50 [facility] HospitalCreatinine [Mass/Vol]1.23 mg/dLNormal0.7-1.4[facility] Glucose [Mass/Vol]176 mg/yZFcyp51-438Ozagdk HospitalPotassium [Moles/Vol]4.1 mmol/LNormal3.5-5.0[facility] HospitalSodium [Moles/Vol]137 mmol/NVwjyfh231-026 [facility] HospitalUrea nitrogen [Mass/Vol]22 mg/dLNormal8-25[facility] HospitalCASE MANAGEMon [id number] MANAGEMHNO ID: [id number] Author: Nichelle Henao (Sw) Service: ? Author Type: Mold Checker Type: Care Mgt Progress Note Filed: 07/17/2019 [...] 17, 2019 TIME: 11:04 AM PAGER/CONTACT #: [phone] HospitalCASE MGT INIT ASSESon 57-08-2429NRAR MGT INIT ASSESHNO ID: [id number] Author: Nichelle Henao (Sw) Service: ? Author Type: Mold Checker Type: Care Mgt Initial Assessment Filed: 07/17/2019 11:04 AM Note Text: CARE MANAGEMENT: ASSESSMENT AND DISCHARGE PLAN SERVICE DATE: 07/17/2019 SERVICE TIME: 11am PRIMARY CARE PHYSICIAN: Narciso Bullock MD ADMISSION STATUS: Inpatient Needs Prior to Discharge: Ready for Discharge MEDICAL: Patient/Department Secretary Stated Goals: To have reduction in pain To have reduction in symptoms To improve my functional status Health Insurance: MEDICARE A AND B Health Issues Impacting Discharge Plan: none Last Discharge Date: 03/03/17 Is this Within the Past 30 days? No Advance Directive: Current Advance Directive: None Nurse Informaticist Attempted to Assist with AD Completion: Yes [...] None Has the Patient Been in a Half-Way Facility in the Past 30 days? No SOCIAL: Living Arrangement: Home Lives With: Spouse Financial Resources: Retired Primary Contact: Extended Emergency Contact Information Primary Emergency Contact: Tanja Lmi Address: [address] [place] [address] Mobile Relation: Spouse Supportive: Yes Other Important [...] 0 I feel financially burdened by my cob-np-ffvtia expenses for my prescription medication: Disagree completely [...] 17, 2019 TIME: 11:02 AM PAGER/CONTACT #: [phone] HospitalCBCon 01-39-5855Rmtrtasz nRBC<0.01Normal<0.01[facility]uclid HospitalErythrocyte distribution width (RBC) [Ratio]13.2 %Tzcvpa99.5-15.0[facility] HospitalHematocrit (Bld) [Volume fraction]32.9 %Low39.0-51.0[facility] HospitalHemoglobin (Bld) [Mass/Vol]11.0 g/dL Low13.0-17.0[facility] HospitalMCH (RBC) [Entitic mass]30.6 mSZczwfo08.0-34.0[facility] HospitalMCHC (RBC) [Mass/Vol]33.4 g/wONoqydu80.5-36.0[facility] HospitalMCV (RBC) [Entitic vol]91.6 dXRumvqi32.0-100.0[facility] HospitalPlatelet mean volume (Bld) [Entitic vol]10.4 fLNormal9.0-12.7[facility] HospitalPlatelets (Bld) [#/Vol]188 10*3/wIHofqmg450-078Xsvoog HospitalRBC (Bld) [#/Vol]3.59 10*6/uLLow4.20-6.00 [facility] HospitalWBC (Bld) [#/Vol]16.37 10*3/uLHigh3.70-11.00[facility] NURSING PROGon [id number] PROGHNO ID: [id number] Author: Prudence (Rn) DOLORES Bowen Service: Nursing Author Type: Registered Nurse Type: Nursing Progress Note Filed: 07/17/2019 1:33 PM Note Text: Nursing Progress Note Patient Name: Amina Lim [place] Location[place]-517/ [place]-1 Daily Note:.Assumed care of patient, assessment completed, [...] discharge summary. This note was completed by: Lorenzo DorantesStone County Medical Center [id number] ID: [id number] Author: Sky Echols Service: General Internal Medicine [...] of care with Dr. Echols. Yeny Walters, LULÚ.ICE CREAM TRUCK DRIVER July 17, 2019 10:36 AM I have seen the patient and verified the exam. I have personally reviewed all labs and imaging results. I have discussed with the INSTALLER INTERIOR ASSEMBLIES and I have participated in montelongo components. I agree with the note as documented with additional comments if needed. The assessment and plan as outlined are reflection of our discussion. Sky Echols MD July [facility] 2019[facility] ID: [id number] Author: Rolly (Raquel Osullivan MD Service: Orthopaedic [...] (U/L) Date Value 07/27/2009 29 URINALYSIS Specific Milo, Ur Date Value Ref Range Status 08/24/2009 [...] Osullivan MD Resident Physician PGY-2 Orthopaedic Surgery 71344 For urgent issues or if after 5:00 PM/weekends, please page [phone])Normal [facility] HospitalTHERAPY NTon [id number] NTHNO ID: [id number] Author: Roseanne Jenkins Service: Occupational Therapy Author Type: Occupational Therapist Type: Therapy (PT/OT/Speech/Resp) Filed: 07/17/2019 3:00 PM Note Text: Occupational Therapy Evaluation SERVICE DATE: 07/17/2019 SERVICE TIME: 0950 to 1020 ROOM: [address]-517-1 Recommended Discharge Disposition: Home Anticipated Discharge Needs: Physical Assist at Home Physical Assist at Home for: Shopping;Transportation;Meals;Laundry;Cleaning;Medication Management OT Recommendations to Nursing: OOB for [...] of daily living (ADL) Interventions Provided: Evaluation;Self Alf Management (14029) $ Evaluation-Low (61075) Billed Units: 1 unit Self Alf Management (23103) Treatment Minutes: 23 2 units Skilled Intervention(s): [...] Lim DATE: July 17, 2019 TIME: 2:46 [facility] NTO ID: [id number] Author: Roseanne (Ot) Gregory Service: Occupational Therapy Author Type: Occupational Therapist Type: Therapy (PT/OT/Speech/Resp) Filed: 07/17/2019 3:08 PM Note Text: Occupational Therapy Treatment SERVICE DATE: 07/17/2019 SERVICE TIME: 1155 to 1240 ROOM: [place] [address] Recommended Discharge Disposition: Home Anticipated Discharge Needs: Physical Assist at Home Physical Assist at Home for: Shopping;Transportation;Meals;Laundry;Cleaning;Medication Management OT Recommendations to Nursing: OOB for [...] daily living (ADL) Interventions Provided: Therapeutic Exercise (79364);Self Alf Management (92972) Therapeutic Exercise (22889) Treatment Minutes: 10 1 unit Skilled Intervention(s): Instruction in therapeutic exercise Verbal and tactile cuing provided Facilitation of muscle control, optimal recruitment and alignment Education in PROM shoulder to 90 degrees FF passively and work toward limit of 120 degrees. Spouse able to perform PROM to 90 degrees as well Self Alf Management (64761) Treatment Minutes: 35 2 units Skilled Intervention(s): [...] Lim DATE: July 17, 2019 [facility] 3:04 [id number] Author: Floresita Ray Service: Physical Therapy Author Type: Physical Therapist Type: Therapy (PT/OT/Speech/Resp) Filed: 07/17/2019 1:21 PM Note Text: PHYSICAL THERAPY MISSED VISIT SERVICE DATE: 07/17/2019 SERVICE TIME: 1320 to 1320 ROOM: [address]1 (EU OR POST OP) Attempted Evaluation. Patient not seen due to No Skilled Needs. Patient's post op needs can be met by OT. Pt does not have any functional mobility impairment. Will discontinue PT order. SIGNATURE: Floresita Ray PT PATIENT NAME: Amina Lim DATE: July 17, 2019 TIME: 1:21 [facility] [id number] HEALTHHNO ID: [id number] Author: Armen JacobsonRtTaina Redmond Service: Radiology Author Type: Retail Coverage Merchandiser Lead Type: [employer] Filed: 07/16/2019 3:56 PM Note Text: [...] BY: RT Elijah July 16, 2019 3:56 [facility] ID: [id number] Author: Armen Redmond (Rt) Service: Radiology Author Type: Retail Coverage Merchandiser Lead Type: [employer] Filed: 07/16/2019 3:47 PM Note Text: [...] BY: RT Elijah July 16, 2019 3:47 [facility] [id number] POSTHNO ID: [id number] Author: Jordan Desai Service: Anesthesiology Author Type: [...] 1706 Resp: 18 16 27 18 07/16/19 16107/16/19 1630 07/16/19 16407/16/19 1706 SpO2: 94% 94% 93% 96% Validated [...] 16, 2019 TIME: 5:30 PM PAGER/CONTACT #: [phone]. [facility] PREOPon [facility]-16-2019 ANES PREOPHNO ID: [id number] Author: Jordan Desai Service: Anesthesiology Author Type: [...] Hyperlipidemia PAST MEDICAL HISTORY Diagnosis Date - olesteremia - Hypertension - Peyronie's disease PAST SURGICAL [...] Take 1 tablet by mouth once daily. Hebwi-2-IAK-EPA-Fish Oil (FISH OIL) 1,000 mg (120 mg-180 mg) cap Take 1 g by mouth once daily. Lecithin 1,200 mg cap Take 1 capsule by mouth once daily. lovastatin (MEVACOR) 20 mg tablet Take 20 mg by mouth daily at bedtime. multivitamin (MULTIPLE VITAMINS) tablet Take 1 tablet by mouth once daily. [place] 160 mg capsule Take 160 mg by [...] injection (VERSED) 2 mg INTRAVENOUS Pre-Op Once Jordantirso Manleyin APTT 28.7 07/27/2009 PT Sec 11.1 [...] MD DATE: July 16, 2019 TIME: 10:51 [facility] 88-17-6838UOJFJDXDKL ID: [id number] Author: Yeny Walters Service: General Internal Medicine [...] by mouth once daily. Disp: Rfl: 07/05/2019 Wsuju-8-KMW-EPA-Fish Oil (FISH OIL) 1,000 mg (120 mg-180 [...] mouth once daily. Disp: Rfl: 07/05/2019 [place] 160 mg capsule Take 160 mg by [...] the care of your patient. Yeny Walters APRN.ICE CREAM TRUCK DRIVER July 16, 2019 5:46 PMNormalLenox Hill HospitalOPERATIVE NOon [id number] NOHNO ID: [id number] Author: Anshu Thomas Service: Orthopaedic Surgery Author Type: Physician Type: Operative Report Filed: 07/16/2019 3:21 PM Note Text: [place] [address] [place] OPERATIVE REPORT NAME: Amina [facility] #: [id number] DATE: 07/16/2019 (1:12pm-3:12pm) AGE: 74 SURGEON 1: Anshu Thomas M.D. SORT MANAGER: 1. Brain Kay M.D. 2. Rolly Osullivan [...] INDICATIONS: The patient is a 74 year oldyyw-zqcc-guu right-hand dominant white male who has a [...] a #2 Ticron suture passed in a ghyunw-ci-fdlaz fashion. Following this, all retractors were removed, [...] SPECIMENS: none COMPLICATIONS: none apparent Anshu Thomas M.D.[facility] CenterXR SHOULDER SPECIFY 1V RTon 94-49-5077KW SHOULDER SPECIFY 1V RT* * *Final Report* * * DATE OF [...] MD on Jul 16 2019 3:57PM EST [id number] HospitalNURSING PROGon 57-17-9510QDSIOKD PROG HNO ID: [id number] Author: Norma (Rn) Kyree RN Service: Nursing [...] Review: N/A Narrative: N/A Pre-op Considerations: PER [facility] HX CLARENCE- CPAP at night History of Prostate CA with Radiation and insertion of Seeds CKD follows with Nephrology Chart Check: IN PROGRESS NEED FINAL EKG Marialuisa Cates RN June 27, 2019 1:24 PM July 15, 2019 8:38 AM Final EKG from 06/25/19--Sinus allegra (57bpm) Norma Adorno RNHeritage Valley Health System HospitalType and SCR (30D)on 02-65-9880SJP/RH(D) PositiveHeritage Valley Health System HospitalHOSPon 61-20-9595LLREVsndauh:Amnia Lim MRN: Height:5' 10.5 (1.791 m) Weight:211 [...] (VITAMIN C) 1,000 mg tablet MINER[employer] ORAL Nzjhv-0-XAT-EPA-Fish Oil (FISH OIL) 1,000 mg (120 mg-180 mg) cap Lecithin 1,200 mg cap lovastatin (MEVACOR) 20 mg tablet multivitamin (MULTIPLE VITAMINS) tablet [place] 160 mg capsule vitamin b complex tab [...] progress notes entered within the past 30 daysConnecticut Children's Medical CenterXR SHLDR >/=3V AP/RADHA AP/OTHR LTon 20-91-6073LV SHLDR >/=3V AP/RADHA AP/OTHR LT* * *Final Report* * * DATE OF [...] MD on Dec 10 2018 9:43AM EST [id number] Medical CenterXR SHLDR >/=3V AP/RADHA AP/OTHR RTon 01-51-1910RP SHLDR >/=3V AP/RADHA AP/OTHR RT* * *Final Report* * * DATE OF [...] MD on Dec 10 2018 9:37AM EST [id number] Vital Signs Date TimeVital SignValuePerforming XokbiuvqnLwdgvojn65-17-3525 10:21-0500Body kqboaq991.1 cmRhyagustina Salgado DO Work Phone: [phone] health miami valley hospital southand Ctwarw72-01-4818 10:21-0500Body mass index (BMI) [Ratio]28.84 kg/o8Predp Junioritz DO Work Phone: LlevelFlower HospitalFgfbvf06-03-3509 10:21-0500Body .5 kgRhakiko Salgado DO Work Phone: Tpremier health miami valley hospital southand Muqrdk00-78-5538 10:21-0500Diastolic blood tzetqcjo79 mm[Hg]Lyndsay Salgado DO Work Phone: Kpremier health miami valley hospital southand Adoqxa00-73-9733 10:21-0500Heart rate64 /min Lyndsayakiko Salgado DO Work Phone: Cpremier health miami valley hospital southand Cyrcga00-81-6117 10:21-0500Systolic blood pbxkvjke941 mm[Hg]Lyndsay Salgado DO Work Phone: IWayne HospitalJkqsbs56-99-5770 13:14-0400Body auwdrj971.8 cmMattrolakassie Tilley PA Work Phone: [facility] ServicesMaieqadzai20-49-5307 13:14-0400Body mass index (BMI) [Ratio]29.96 kg/a9Zwomjcl Tilley PA Work Phone: [facility] ServicesCroiklenkq60-71-4203 13:14-0400Body oetgry17.71 kgMattyanet Tilley PA Work Phone: [facility] ServicesGkjojyvtlr96-50-0901 09:10-0400Body cabluv926.1 cmRcheri Salgado DO Work Phone: RWayne HospitalEfjgzo60-11-5649 09:10-0400Body .53 kgRhakiko Salgado DO Work Phone: Xpremier health miami valley hospital southand Wciflt96-54-7710 09:10-0400Diastolic blood thbqdheh69 mm[Hg]Lyndsay Salgado DO Work Phone: [place] Irkewi06-75-8265 09:10-0400Heart rate43 /min Lyndsay Maditz DO Work Phone: cpremier health miami valley hospital southand Jqlxwf28-73-3261 09:10-0400Systolic blood pfiufyxy929 mm[Hg]Lyndsay Salgado DO Work Phone: cWayne HospitalDrvhme62-76-1967 11:20-0500Body okealo044.8 cmAaleksjose Irelandyessica Other [employer] Other 11-22-2022 11:20-0500Body mass index (BMI) [Ratio]29.9 kg/m2Yudith Shuyessica Other [employer] Other 11-22-2022 11:20-0500Body wvycwuxxzkd32.5 [degF]Yudith Rubin Other [employer] Other 11-22-2022 11:20-0500Body .53 kgYudith Shuyessica Other [employer] Other 11-22-2022 11:20-0500Diastolic blood cjxaelet04 mm[Hg] Yudith Rubin Other [employer] Other 11-22-2022 11:20-0500Respiratory rate18 /minYudith Rubin Other [employer] Other 11-22-2022 11:20-7800JdT0% (BldA) [Mass fraction]98 % Yudith Rubin Other [employer] Other 11-22-2022 11:20-0500Systolic blood mm[Hg] Yudith Shuyessica Other [employer] Other 12-08-2021 11:20-0500Body uqmyex024.8 cmEjocelyn Earl Other [facility] [place] [employer] Other 12-08-2021 11:20-0500Body mass index (BMI) [Ratio] 30.93 kg/w5EsywvIleana Earl Other [facility] [place] [employer] Other 12-08-2021 11:20-0500Body .4 [degF]Ileana Earl Other [facility] [place] [employer] Other 12-08-2021 11:20-0500Body dqosmt42.8 kgIleana Earl Other [place] [employer] Other 12-08-2021 11:20-0500Diastolic blood atzoomgf74 mm[Hg] Ileana Earl Other [place] [employer] Other 12-08-2021 11:20-0500Respiratory rate18 /minEjocelyn Earl Other [place] [employer] Other 12-08-2021 11:20-2504GdS5% (BldA) [Mass fraction]97 % Ileana Earl Other [place] [employer] Other 12-08-2021 11:20-0500Systolic blood mexozjvs285 mm[Hg] Ileana Earl Other [place] [employer] Other Encounters Encounter DateEncounter TypeCare ProviderFacilityStart: 06-27-2025 End: 88-77-9938glygamwtygICYBAJoint Township District Memorial Hospitaltart: 11-07-2024 End: 96-02-8316Cjuyjo flowsheetMazenia MOSELEY Work Phone: noms SWS ORTHOStart: 11-07-2024 End: 30-25-0540Kcmxes flowsheetQueta MOSELEY Work Phone: noms SWS ORTHOStart: 11-07-2024 End: 51-00-0484Ilyymt follow up visit related to original Robyn MOSELEY Work Phone: noms SWS ORTHOComment on above:S/P TKR (total knee replacement), left (Primary Dx)Start: 11-07-2024 End: 93-46-5134akoblzbteoMRQMHFL J MEYERSaint Mary'S [facility] Center AvailableStart: 10-28-2024 End: 48-19-1371hlmlfvqvmjIZSMKAdams County Regional Medical Centertart: 10-22-2024 End: 98-73-7188tpmcbtqhjpRNFROMH M HOYFacility:[facility] Systemtart: 10-22-2024 End: 52-03-1359Oiwyshc encounter procedureLyndsay Salgado DO Work Phone: Kidney MedicineComment on above:Stage 3a chronic kidney disease (HCC) (Primary Dx); Anemia of renal disease; Secondary renal hyperparathyroidism (HCC); Primary hypertension; SVT (supraventricular tachycardia) (HCC)Start: 10-18-2024 End: 35-40-4067xxuucgtdzhIdganb Hisey PTANOMS NM PTComment on above:Acute postoperative pain of left knee (Primary Dx); S/P total knee replacement, leftStart: 10-17-2024 End: 37-84-9029Mllroohmc encounterDiana Lyla DO Work Phone: Kidney MedicineStart: 10-08-2024 End: 16-97-4967nfdidqjadtKyed M Medves PT Work Phone: noms NM PTComment on above:Acute postoperative pain of left knee (Primary Dx); S/P total knee replacement, leftStart: 10-03-2024 End: 76-83-2963Eflqqm flowsheetQueta MOSELEY Work Phone: NOMS SWS ORTHOStart: 10-03-2024 End: 32-46-3357Yctrvy flowsJerilyn MOSELEY Work Phone: NOPO SWS ORTHOStart: 10-03-2024 End: 20-64-5574Fduxib follow up visit related to original Robyn MOSELEY Work Phone: noms SWS ORTHOComment on above:S/P TKR (total knee replacement), left (Primary Dx); Acute pain of left kneeStart: 10-03-2024 End: 56-52-9346lnvvwzucyvWpav M Medves PT Work Phone: NOMS NM PTComment on above:Acute postoperative pain of left knee (Primary Dx); S/P total knee replacement, leftStart: 09-30-2024 End: 00-42-7150qxkxsilummFxlj M Medves PT Work Phone: NOMS NM PTComment on above:Acute postoperative pain of left knee (Primary Dx); S/P total knee replacement, leftStart: 09-27-2024 End: 69-47-0239Qnpolx Danitza Sousa PT Work Phone: [phone] NM PTStart: 09-27-2024 End: 57-55-1696Chlbqu Danitza Sousa PT Work Phone: [phone] NM PTStart: 09-27-2024 End: 24-74-9534ikfitprgrcPTEEIC J EVANSNot AvailableStart: 09-23-2024 End: 85-04-5860Wntcoq flowsheetRyan M Medves PT Work Phone: NOMS NM PTStart: 09-23-2024 End: 18-29-8653Ftisze flowsheetRyan M Medves PT Work Phone: NOMS NM PTStart: 09-23-2024 End: 16-67-9658bgkpexfvfyQzuw M Medves PT Work Phone: [phone] NM PTComment on above:Acute postoperative pain of left knee (Primary Dx); S/P total knee replacement, leftStart: 09-18-2024 End: 17-14-6491Rozxxp flowsheetTanner Hisey PTANOMS NM PTStart: 09-18-2024 End: 98-06-5531Krxdkk flowsheetTanner Hisey PTANOMS NM PTStart: 09-18-2024 End: 58-10-4129aopjqtsblgDavqzc Hisey PTANOMS NM PTComment on above:S/P total knee replacement, left (Primary Dx); Acute postoperative pain of left kneeStart: 09-16-2024 End: 61-20-8039Dpcdaw Danitza Sousa PT Work Phone: NOMS NM PTStart: 09-16-2024 End: 69-24-8775Aserdf Danitza Sousa PT Work Phone: [phone] NM PTStart: 09-16-2024 End: 87-51-0471xalznancarEucjby J Evans PT Work Phone: NOMS NM PTComment on above:S/P total knee replacement, left (Primary Dx); Acute postoperative pain of left kneeStart: 09-11-2024 End: 97-08-8853Mifbmy Danitza Sousa PT Work Phone: NOMS NM PTStart: 09-11-2024 End: 83-86-4589Notuad Danitza Sousa PT Work Phone: NOMS NM PTStart: 09-11-2024 End: 08-46-5519edhsgzolwlFifois J Evans PT Work Phone: NOMS NM PTComment on above:S/P total knee replacement, left (Primary Dx); Acute postoperative pain of left kneeStart: 09-09-2024 End: 66-45-1516niyldlgfcaMrwiig J Evans PT Work Phone: NOMS NM PTComment on above:S/P total knee replacement, left (Primary Dx); Acute postoperative pain of left kneeStart: 09-09-2024 End: 97-48-5996Uxsgcb Danitza Sousa PT Work Phone: NOTC NM PTStart: 09-09-2024 End: 05-10-6126Alfgqw Danitza Sousa PT Work Phone: NODI NM PTStart: 09-05-2024 End: 32-18-4465Mckqfb flowsJerilyn MOSELEY Work Phone: NOEQ SWS ORTHOStart: 09-05-2024 End: 32-93-7493Fwpjaf Nga MOSELEY Work Phone: noms SWS ORTHOStart: 09-05-2024 End: 89-89-5635Wawcjk follow up visit related to original Robyn MOSELEY Work Phone: noms SWS ORTHOComment on above:S/P TKR (total knee replacement), left (Primary Dx); Post-operative painStart: 09-05-2024 End: 43-72-4607hzwkyecvwyURBDROY J MEYERNot AvailableStart: 08-29-2024 End: 42-22-2308ZfijmpPpmgg T Olsen [employer] Work Phone: NOVT FB ORTHOPAEDICSComment on above:Post-operative painStart: 08-21-2024 End: 80-15-6945WlupfwBbpkx T Olsen [employer] Work Phone: noms FB ORTHOPAEDICSComment on above:Post-operative pain (Primary Dx)Start: 08-20-2024 End: 91-38-6508Viljco OnlyQueta MOSELEY Work Phone: [phone]-SQED ATLASComment on above:Encounter for other preprocedural examinationStart: 08-20-2024 End: 14-62-8750Hxltfsg encounter statusQueta MOSELEY Work Phone: ProW[facility] Hospitalca Health SystemStart: 08-14-2024 End: 14-44-0192Vyftslemw encounterJr. El Ruiz DO Work Phone: noms SWS ORTHOComment on above:SurgeryStart: 08-13-2024 End: 35-36-0118apipminusuXFZPVUI J MEYERSelect Medical Specialty Hospital - Youngstowntart: 99-10-8235Ekouowhbl for other preprocedural examinationMATTYANET [facility] Hospitaltart: 08-13-2024 End: 13-40-3763Xbfwtvae Result EncounterMazenia MOSELEY Work Phone: NODF External Department UnsolicitedStart: 08-13-2024 End: 45-12-8157Wdkkthwt Result EncounterMazenia MOSELEY Work Phone: noms External Department UnsolicitedStart: 08-13-2024 End: 12-20-3992Qwimlx OnlyMazenia MOSELEY Work Phone: [phone]-FNFE ATLASComment on above:Encounter for other preprocedural examinationStart: 08-13-2024 End: 01-57-1803Zdmkrsi encounter statusQueta MOSELEY Work Phone: [facility] SystemStart: 08-13-2024 End: 16-01-9612Zrpuuty encounter procedureMazenia MOSELEY Work Phone: noms FB ORTHOPAEDICSComment on above:Preop examination (Primary Dx); Primary osteoarthritis of left knee; Eczema, unspecified typeStart: 08-13-2024 End: 14-60-9392Cjauihiskngrg examination doneMazenia MOSELEY Work Phone: noms HealthcareStart: 08-13-2024 End: 04-53-7131havaoxprjsTENQRDV J MEYERNot AvailableStart: 08-07-2024 End: 11-67-7364Qgpvjn flowsheetJgreg Ruiz DO Work Phone: noms [facility] ORTHOStart: 08-07-2024 End: 72-39-0463Axoglp flowsheetJgreg Matos Stepjayce DO Work Phone: noms [facility] ORTHOStart: 08-07-2024 End: 61-72-5314veutatvmtjUY.EL AvailableStart: 08-07-2024 End: 73-81-8981Xxdkvo outpatient visit 25 minutesJr. El Ruiz DO Work Phone: noms SWS ORTHOComment on above:Acute pain of right knee (Primary Dx); History of right knee joint replacement; Primary osteoarthritis of left kneeStart: 06-26-2024 End: 38-13-0242Gzwczd flowsheetJr. El Ruiz DO Work Phone: NOER SWS ORTHOStart: 06-26-2024 End: 53-30-1703Praftq flowsheetJr. El Ruiz DO Work Phone: noms SWS ORTHOStart: 06-26-2024 End: 26-37-5271Akiosa follow up visit related to original pxJr. El Ruiz DO Work Phone: noms SWS ORTHOComment on above:S/P TKR (total knee replacement), right (Primary Dx); Primary osteoarthritis of left kneeStart: 06-26-2024 End: 17-50-0293yvkwuhpyvyNH., EL Fabian AvailableStart: 05-16-2024 End: 55-15-4066jyhvnblztkZEUA M MEDVESNot AvailableStart: 05-15-2024 End: 73-63-2747vustlxpugvEXCTYVS J MEYERNot AvailableStart: 05-14-2024 End: 41-96-2456qwegjsateqMZZLDX HISEYNot AvailableStart: 05-08-2024 End: 74-19-5550yryufbthdcZKYQIKRA HAHNNot AvailableStart: 05-06-2024 End: 74-24-2448blixxnnjrkCROXJH GUZIKNot AvailableStart: 05-01-2024 End: 90-03-0840fjrkjhxocwIJXWTGBJ LEENot AvailableStart: 04-29-2024 End: 08-73-3686lwkzvafwaeRRTKUBRD HAHNNot AvailableStart: 04-26-2024 End: 08-14-7786rlusiutwhoOEXUEJ NIDAZIKNot AvailableStart: 04-24-2024 End: 81-48-6565adnglgjlqxNWCHQP SAHARAKNot AvailableStart: 04-22-2024 End: 13-06-8078fajifnohibXGFW M MEDVESNot AvailableStart: 04-17-2024 End: 05-43-5722geufjwkfrcIVRHAOV J MEYERNot AvailableStart: 03-20-2024 End: 20-46-2468tutipvsqmqXMHL M MEDVESNot AvailableStart: 03-18-2024 End: 48-32-3828Pkcrcwh encounter procedureMD Narciso Bullock Work Phone: [facility] Work Phone: Start: 03-18-2024 End: 15-24-9838rbunorwsdaNP Narciso Bullock Work Phone: [facility] Work Phone: Start: 73-44-6957Vfxasyfct for other preprocedural examinationMatthew [facility] Phys[facility] GroupStart: 03-18-2024 End: 43-05-5944thcntcoqxfFLPBMZY J MEYERNot AvailableStart: 02-02-2024 End: 89-93-1046ytalsdgdooCQEL Billy AvailableStart: 05-24-2023 ambulatoryNo [facility]cp [facility] EnterpriseStart: 05-16-2023 End: 23-57-0906Twrrcbj encounter procedureLyndsay Salgado DO Work Phone: [facility] MedicineComment on above:Chronic kidney disease, unspecified CKD stage (Primary Dx); Bradycardia; Generalized pain; Anemia of renal disease; Primary hypertensionStart: 97-40-2542razhydngbzJB NARCISO BULLOCK .Facility:B2Klkir: 10-03-2022 End: 76-94-1322ibejphuawdBG NARCISO BULLOCK .Facility:Q4Eeapy: 09-06-2022 End: 59-50-3379brawxkgobsAayu Bakhous Other [place] [employer] Other Start: 15-52-8519Yxojyi outpatient visit 15 minutes Yudith IrelandsFPG NephrologyStart: 09-01-2022 End: 73-89-9472tfshxqikjqMD NACRISO HOY .Facility:Z2Rgqbg: 09-01-2022 End: 81-79-1750wwsxcgzuvwDS NARCISO HOY .Facility:V7Uzieq: 09-22-2021 End: 94-91-6387pfegfpinanMpnbq Elashi Other [facility] [employer] Other Start: 26-39-6953Duyqpo outpatient visit 15 minutes Ileana EarlFPG NephrologyStart: 12-10-2018 End: 88-56-9474Ruopgpj encounter procedureBoston [facility] Procedures DateProcedureProcedure DetailPerforming ClinicianStart: 35-53-9254Rikdgwunip examination knee 1/2 viewsMazenia MOSELEY Work Phone: Start: 38-24-3538Agsrchzciefifi time partial plasma/whole bloodMazenia MOSELEY Work Phone: Start: 12-93-6112BIX screeningDR NARCISO BULLOCK .Comment on above:Performed By: #### PSASC #### [facility] [address] [place] [address] Dr. Xena PickardStart: 30-84-5339Tirmgyxk screenHistory of operative procedure on kneeHistory of right knee joint replacementJr. El Ruiz DO Work Phone: Plan of Treatment DateCare ActivityDetailAuthorStart: 62-73-0693Xrvpkaaa ScreeningDiabetes ScreeningCleveland ClinicStart: 11-03-2025 End: 51-85-7038Bepdqrf encounter kqrjrojkx48/19/2026 8:30 AM EST Office Visit [facility] [address] [place] [id number] Queta Tilley PA [address] [place] [address] NOMS SWS ORTHOStart: 10-16-2025 End: 03-08-643758891773-lkvjdajknmynyb D3 [Mass/volume] in Serum or PlasmaVITAMIN D 25 HYDROXY Lab Routine Stage 3a chronic kidney disease (HCC) Expected: 10/16/2025, Expires: 01/15/2026leveland ClinicComment on above:Expected: 10/16/2025, Expires: 01/15/2026Start: 10-16-2025 End: 11-62-2914XZK panel - Blood by Automated countCOMPLETE BLOOD COUNT Lab Routine Stage 3a chronic kidney disease (HCC) Expected: 10/16/2025, Expires: 01/15/2026leveland ClinicComment on above:Expected: 10/16/2025, Expires: 01/15/2026Start: 10-16-2025 End: 52-82-1547Udareyusdu.intact [Mass/volume] in Serum or PlasmaPTH INTACT Lab Routine Stage 3a chronic kidney disease (HCC) Expected: 10/16/2025, Expires: 01/15/2026leveland ClinicComment on above:Expected: 10/16/2025, Expires: 01/15/2026Start: 10-16-2025 End: 72-59-4199Bdxlnej/Creatinine [Mass Ratio] in UrinePROTEIN / CREATININE RATIO Lab Routine Stage 3a chronic kidney disease (HCC) Expected: 10/16/2025, E xpires: 01/15/2026leveland ClinicComment on above:Expected: 10/16/2025, Expires: 01/15/2026Start: 10-16-2025 End: 66-83-1818Uwfrf function 2000 panel - Serum or PlasmaRENAL FUNCTION PANEL Lab Routine Stage 3a chronic kidney disease (HCC) Expected: 10/16/2025, Expires: 01/15/2026[facility] Work Phone: comment on above:Expected: 10/16/2025, Expires: 01/15/2026Start: 10-16-2025 End: 42-24-5120Rxopuczgxo complete panel - UrineURINALYSIS, WITH MICROSCOPIC Lab Routine Stage 3a chronic kidney disease (HCC) Expected: 10/16/2025, Expires: 01/15/2026leveland ClinicComment on above:Expected: 10/16/2025, Expires: 01/15/2026Start: 91-72-0726Mqspabew blood countHemoglobin/HematocritParkview Health Montpelier Hospitaltart: 33-24-0047Esebdbamzm measurementSerum CreatinineSelect Medical [facility] Start: 11-07-2024 End: 28-49-7523Jfdthpz encounter procedureNOMS SWS ORTHOComment on above:S/P TKR (total knee replacement), left (Primary Dx)Start: 10-22-2024 End: 01-05-4192Kzzetlx encounter snguekbcw33/07/2025 10:20 AM EST Office Visit [facility] [address] [place] [address] Lyndsay Salgado DO [address] [place] [address] 1 yearKidney MedicineComment on above:1 yearStart: 10-18-2024 End: 39-05-4262bfgbipdttq47/03/2025 8:30 AM EST Treatment [facility] [address] [place] [address] Giacomo Jones PTANOMS NM PTStart: 10-17-2024 End: [id number]-tnshseqwuyoyib D3 [Mass/volume] in Serum or PlasmaVITAMIN D 25 HYDROXY Lab Routine Stage 3 chronic kidney disease, unspecified whether stage 3a or 3bCKD (HCC) Expected: 10/17/2024, Expires: 01/[facility]/20[facility] Comment on above:Expected: 10/17/2024, Expires: 01/16/2025Start: 10-17-2024 End: 56-26-8419PBK panel - Blood by Automated countCOMPLETE BLOOD COUNT Lab Routine Stage 3 chronic kidney disease, unspecified whether stage 3a or 3bCKD (HCC) Expected: 10/17/2024, Ex[facility]: [facility]25[facility]: Expected: 10/17/2024, Expires: 01/16/2025Start: 10-17-2024 End: 46-08-7174Miembujpgwaq/Creatinine [Mass Ratio] in UrineALBUMIN/CREATININE RATIO, URINE Lab Routine Stage 3 chronic kidney disease, unspecified whether stage 3a or 3b CKD (HCC) Expected: 10/17/2024, Expires: 01/16/2025[facility] Work Phone: Comment on above:Expected: 10/17/2024, Expires: 01/16/2025Start: 10-17-2024 End: 56-30-0851Ivwqvtgspe.intact [Mass/volume] in Serum or PlasmaPTH INTACT Lab Routine Stage 3 chronic kidney disease, unspecified whether stage 3a or 3b CKD (HCC)Expected: 10/17/2024, Expires: 01/16/2025[facility] ClinicComment on above: Expected: 10/17/2024, Expires: 01/16/2025Start: 10-17-2024 End: 72-84-7142Uhhhvbp/Creatinine [Mass Ratio] in UrinePROTEIN / CREATININE RATIO Lab Routine Stage 3 chronic kidney disease, unspecified whether stage 3aor 3b CKD (HCC) Expected: 10/17/2024, Expires: 01/16/2025[facility] ClinicComment on above:Expected: 10/17/2024, Expires: 01/16/2025Start: 10-17-2024 End: 75-17-8792Iidpg function 2000 panel - Serum or PlasmaRENAL FUNCTION PANEL Lab Routine Stage 3 chronic kidney disease, unspecified whether stage 3a or 3b CKD (HCC) Expected: 10/17/2024, Expires: 01/16/2025[facility] ClinicComment on above:Expected: 10/17/2024, Expires: 01/16/2025Start: 10-17-2024 End: 36-65-6719Uoeftxkpar complete panel - UrineURINALYSIS WITH MICROSCOPIC, REFLEX CULTURE Lab Routine Stage 3 chronic kidney disease, unspecifiedwhether stage 3a or 3b CKD (HCC) Expected: 10/17/2024, Expires: 01/16/2025[facility] ClinicComment on above:Expected: 10/17/2024, Expires: 01/16/2025Start: 66-90-1823Bodwpxw Directive DiscussionAdvance Directive DiscussionCleveland ClinicStart: 10-08-2024 End: 36-23-6459csiivhuzqa14/24/2024 10:15 AM EST Treatment [facility] [address] [place] [address] Shirlene Blakely, PT [address] [place] [address] [facility] NM PTStart: 10-03-2024 End: 40-33-8585nhbriwcmtd76/19/2024 10:00 AM EST Treatment [facility] [address] [place] [address] Shirlene Blakely, PT [address] [place] [address] [facility] NM PTStart: 10-03-2024 End: 79-99-7028Echosce encounter procedureNOMS SWS ORTHOComment on above:S/P TKR (total knee replacement), left (Primary Dx)Start: 09-30-2024 End: 77-63-9660mscvpybhny72/16/2024 5:30 PM EST Treatment [facility] [address] [place] [address] Roseanne Sousa, PT [address] [place] [address] [facility] NM PTStart: 09-30-2024 End: 42-79-6297ntoavcaznb18/16/2024 10:30 AM EST Treatment [facility] [address] [place] [address] Ameena Mahajan PTANOMS NM PTStart: 09-27-2024 End: 15-00-0359gzmtgrspgxGBZI NM PTComment on above:ArrivedStart: 09-23-2024 End: 97-63-3852yiepsmcvzdWVKY NM PTComment on above:Acute postoperative pain of left knee (Primary Dx); S/P total knee replacement, leftStart: 09-20-2024 End: 54-64-0029fnsazgqmqz05/06/2024 8:45 AM EST Treatment [facility] [address] [place] [address] Roseanne Sousa, PT [address] [place] [address] [facility] NM PTStart: 09-18-2024 End: 79-21-5329kbhejeabyp04/04/2024 9:00 AM EST Treatment [facility] [address] [place] [address] Giacomo Jones PTANOMS NM PTStart: 09-16-2024 End: 25-34-2079ydnsjhjhpyHJKF NM PTComment on above:ArrivedStart: 09-11-2024 End: 70-80-3820eauurvsmweINXI NM PTComment on above:ArrivedStart: 09-09-2024 End: 67-87-7260ufjcgoowayIDOU NM PTComment on above:S/P total knee replacement, leftStart: 09-05-2024 End: 70-15-3938Lthbaio encounter procedureNOMS [facility] ORTHOComment on above:S/P TKR (total knee replacement), left (Primary Dx)Start: 08-13-2024 End: 97-74-9279Irqkmkc dipstick, urineGlucose dipstick, urine Lab Routine Encounter for other preprocedural examination Expected: 08/13/2024, Expires: 08/20/2025[facility] Work Phone: Comment on above:Expected: 08/13/2024, Expires: 08/20/2025Start: 08-09-2024 End: 75-98-8063cWBM in Blood by Coagulation assayAPTT Lab Routine Preop examination Expected: 08/09/2024 (Approximate), Expires: 08/09/2025[facility] Work Phone: Comment on above:Expected: 08/09/2024 (Approximate), Expires: 08/09/2025Start: 08-09-2024 End: 12-75-3530Ihihruoz identified in Urine by CultureNOFL HealthcareComment on above:Expected: 08/09/2024 (Approximate), Expires: 08/09/2025Expected: 08/09/2024, Expires: 08/13/2025Start: 08-09-2024 End: 91-75-7495LEF W Auto Differential panel - BloodCBC auto differential Lab Routine Preop examination Expected: 08/09/2024 (Approximate), Expires: HealthcareComment on above:Expected: 08/09/2024 (Approximate), Expires: 08/09/2025Start: 08-09-2024 End: 54-13-1371Bfphicczoqcba metabolic 2000 panel - Serum or PlasmaComprehensive metabolic panel Lab Routine Preop examination Expected: 08/09/2024 (Approximate), Expires: 08/09/2025 HealthcareComment on above:Expected: 08/09/2024 (Approximate), Expires: 08/09/2025Start: 08-09-2024 End: 01-13-7149Hhynmrqketn time (PT) in Blood by Coagulation assayProtime-INR Lab Routine Preop examination Expected: 08/09/2024 (Approximate), Expires: 08/09/2025 HealthcareComment on above:Expected: 08/09/2024 (Approximate), Expires: 08/09/2025Start: 08-09-2024 End: 72-06-8031Hhvvycjxpi complete panel - UrineUrinalysis with reflex microscopic Lab Routine Preop examination Expected: 08/09/2024 (Approximate), Expires: 08/09/2025 HealthcareComment on above:Expected: 08/09/2024 (Approximate), Expires: 08/09/2025Start: 08-09-2024 End: 03-69-4266UD Femur and Tibia Views for leg lengthXR lower extremity leg length evaluation Imaging Routine Preop examination Expected: 08/09/2024 (Mari roximate), Expires: 08/09/2025 HealthcareComment on above:Expected: 08/09/2024 (Approximate), Expires: 08/09/2025Start: 08-07-2024 End: 48-02-2304Ewrzjwt encounter /23/2024 10:00 AM EDT Office Visit [facility] [address] [place] [phone] Jr. El Ruiz, DO [address] [facility] [address] [place] [address] [facility] ORTHOStart: 06-26-2024 End: 22-78-5554Pbxedpw encounter fcxagomnv45/11/2024 11:15 AM EDT Office Visit [facility] [address] [place] [phone] Jr. El Ruiz, DO [address] [facility] [address] [place] [address] ArrivedNOCHILDREN'S [facility] ORTHOComment on above: ArrivedStart: 05-82-7555Zweoe-19 Vaccine ( season)Covid-19 Vaccine ()[facility]: 94-50-1423Zdapagxmv vaccinationACADIA HEALTHCARE HealthcareStart: 65-37-6435Qalcrerv blood countHemoglobin/HematocritParkview Health Montpelier Hospitaltart: 90-88-2182Zqgboexhsv measurementSerum CreatinineSelect Medical [facility] Start: 52-24-3258DLWKCHUYLW/HEMATOCRITHEMOGLOBIN/HEMATOCRITSelect Medical [facility] Start: 61-75-3505VVPDJ CREATININESERUM CREATININEParkview Health Montpelier Hospitaltart: 22-96-4255Ohplkili identified in Urine by CultureNorwalk Memorial Hospitaltart: 21-03-5143Orkkqzpvx vaccinationINFLUENZA (#1)[facility] Hospitalt[facility]: 05-16-2023 End: 20-31-785084704481-axetjfawnzalys D3 [Mass/volume] in Serum or PlasmaVITAMIN D 25 HYDROXY Lab Routine Chronic kidney disease, unspecified CKD stage Expected: 05/16/2023, Expires: 07/16/2023[facility] Work Phone: comment on above:Expected: 05/16/2023, Expires: 07/16/2023Start: 05-16-2023 End: 96-75-8894REXKNRMMIU PROTEIN, SERUM (BLOOD)MONOCLONAL PROTEIN, SERUM (BLOOD) Lab Routine Chronic kidney disease, unspecified CKD stage Expected: 05/16/2023, Expires: 07/16/2023[facility] Work Phone: comment on above:Expected: 05/16/2023, Expires: 07/16/2023Start: 05-16-2023 End: 29-09-7416Cuvwcewffh.intact [Mass/volume] in Serum or PlasmaPTH INTACT BLD Lab Routine Chronic kidney disease, unspecified CKD stage Expected: 05/16/2023, Expires: 07/16/2023[facility] Work Phone: comment on above:Expected: 05/16/2023, Expires: 07/16/2023Start: 10-87-0469TAGSJHF DIRECTIVE DISCUSSIONADVANCE DIRECTIVE DISCUSSIONParkview Health Montpelier Hospitaltart: 02-32-5803ZLNMVYFLKT ASSESSMENTDEPRESSION ASSESSMENTParkview Health Montpelier Hospitaltart: 33-15-3489PFUUJKKW SCREENDIABETES SCREEN [facility]: 25-10-8908Trmwfcqj ScreeningDiabetes ScreeningParkview Health Montpelier Hospitaltart: 85-20-8209ZPO Vaccine (1 - 1-dose 75+ series)RSV Vaccine (1 - 1- dose 75+ series)[facility]: 23-97-9252JVBZR-19 VACCINE (3 - Pfizer series)COVID-19 VACCINE (3 - Pfizer series)[facility]: 07-17-2020 HEMOGLOBIN/HEMATOCRITHEMOGLOBIN/HEMATOCRITParkview Health Montpelier Hospitaltart: 74-72-8747XQZWM CREATININESERUM CREATININEParkview Health Montpelier Hospitaltart: 00-40-4764JPLPPIUJFYJD: 65+ (2 - PCV)PNEUMOCOCCAL: 65+ (2 - PCV)[facility]: 88-24-6139Ewvi Risk ScreeningFall Risk ScreeningCleveland Clinic Lutheran Hospital SystemStart: 1996 Administration of varicella zoster vaccineZoster (Shingles) Vaccine (1 of 2) [facility] SystemStart: 88-51-8949VPCAWKKY VACCINE (1 of 2)SHINGRIX VACCINE (1 of 2)[facility]: 47-44-4583NMsD,Tdap and Td Vaccines (1 - Tdap)DTaP,Tdap and Td Vaccines (1 - Tdap)[facility] Richmondt[facility]: 23-43-8313Cjkse microalbumin profileParkview Health Montpelier Hospitaltart: 94-02-8749Dlrne BMI ScreeningAdult BMI ScreeningProDetwiler Memorial Hospitaltart: 96-02-2117LWBEGH PCP TEAM CHRONIC DISEASE VISITANNUAL PCP TEAM CHRONIC DISEASE VISITSelect Medical [facility] Start: 12-89-9849Dkeehni ScreeningAnxiety ScreeningParkview Health Montpelier Hospitaltart: 98-52-2091NW CONTROLLED (<130/80)BP CONTROLLED (<130/80)[facility]: 76-39-8838Lanmuvzekx ScreeningDepression ScreeningParkview Health Montpelier Hospitaltart: 92-65-8747NPDXVLAYE C SCREENINGHEPATITIS C SCREENINGParkview Health Montpelier Hospitaltart: 43-93-9098Ymqwiodxe C screeningHepatitis C ScreeningParkview Health Montpelier Hospitaltart: 13-31-4121Idtuymiccy ScreeningDepression ScreeningProDetwiler Memorial Hospitaltart: 95-69-0532Ntrkfoy ScreeningTobacco ScreeningFirstHealth Moore Regional Hospital - Richmondtart: 1946Medicare Annual Wellness VisitMedicare Annual Wellness VisitJ.W. Ruby Memorial HospitalBacteria identified in Urine by CultureUrine Culture Microbiology Routine Encounter for other preprocedural examination 08/13/2024 6:13 PMEDT [facility] End: 73-64-1464TGZ panel - Blood by Automated countCBC Lab Routine Chronic kidney disease, unspecified CKD stage Every 3 months for 4 Occurrences starting 05/16/2023 until 05/16/2024[facility] Work Phone: comment on above:Every 3 months for 4 Occurrences starting 05/16/2023 until 05/16/2024 End: 70-20-5823Upvmulz/Creatinine [Mass Ratio] in UrinePROTEIN CREATININE RATIO Lab Routine Chronic kidney disease, unspecified CKD stage Every 3 months for 4 Occurrences starting 05/16/2023 until 05/16/2024[facility] Work Phone: comdqgk on above:Every 3 months for 4 Occurrences starting 05/16/2023 until 05/16/2024 End: 65-16-5027Phhee function 2000 panel - Serum or PlasmaRENAL FUNCTION PANEL Lab Routine Chronic kidney disease, unspecified CKD stage Every 3 months for 4 Occurrences starting 05/16/[address] [place] [address] Work Phone: comtnha on above:Every 3 months for 4 Occurrences starting 05/16/2023 until 05/16/2024 End: 37-50-1642Nrerbvemli complete panel - UrineURINALYSIS, WITH MICROSCOPIC Lab Routine Chronic kidney disease, unspecified CKD stage Every 3 months for 4 Occurrences starting 05/16/[address] [place] [address] Work Phone: comqbsh on above:Every 3 months for 4 Occurrences starting 05/16/2023 until 05/16/2024 End: 25-21-5733PZ KIDNEY/BLADDERUS KIDNEY/BLADDER Radiology Routine Chronic kidney disease, unspecified CKD stage 1 Occurrences starting 05/16/[address] [place] [address] Work Phone: comkiii on above:1 Occurrences starting 05/16/[address] [place] [address] Immunizations Immunization DateImmunizationNotesCare QrvkhxyiWwlbjhhy30-12-6887rvjxyguhn virus vaccine, unspecified formulationJr. Stepanic DO Work Phone: [facility] Vjtyqzxqde54-14-3970NBINJ-64 original vaccine, age 12+ yr, monovalent (PFIZER-BIONTECH - PURPLE TOP)Lyndsay Salgado DO Work Phone: [facility] Work Phone: [phone]-91 original vaccine, age 12+ yr, monovalent (PFIZER-BIONTECH - PURPLE TOP)Lyndsay Pachecocarito DO Work Phone: [facility] Work Phone: [phone]ttpoypdra polysaccharide vaccine, 23 valentRcheri Salgado DO Work Phone: [facility] Payers DatePayer CategoryPayerPolicy [id number] [id number] Commercial Indemnity[employer] Member Subscriber Plan / Payer (Effective 2021-Present) Name: Amina Lim Relation to Subscriber: Self Name: Amina Lim Payer ID: Not on file Type: Not on file Address: [place] [id number] 14-34-0814Am[facility]im[employer] Health InsuranceMEDICAL MUTUAL Member Subscriber Plan / Payer (Effective 2021-Present) Name: Amina Lim Relation to Subscriber: Self Name: Amina Lim Payer ID: Not on file Type: Not on file Address: [address] [id number] 34-08-9110Yiounre8.2.840.349011.1.13.159.2.7.3.999535.315 2011Medicare 1.2.840.839812.1.13.159.2.7.3.405302.315 [id number] 2.840.9.62266[id number] 2.0.0.780485.30 1946 [id number] 2.840.1.236411.3.57[id number] 2.840.1.855365.3.579.2.04183-56-7113Lzfsjhr4048519 2.840.1.482762.3.579.2.58077-93-4086Chxdcae6121805 2.16840.1.154330.3.579.2.71042-76-3210Vmjeydz29252303 2.16.840.1.032356.3.579.2.752122-61-5842Qijxxwt87548936 2.16840.1.027206.3.579.2.384907-94-2721Jcxfzvt7816959 2.16840.1.155825.3.579.2.294147-97-3532Qjjmjvv5281109 2.840.1.357556.3.579.2.859161-78-5589Yskcvto4320866 2.840.1.205594.3.579.2.763945-55-5068Fkleiqw5708153 2.840.1.318197.3.579.2.058725-46-2138Telhwtj8840876 2.840.1.552820.3.579.2.439428-16-4210Luksvcq8971142 2.840.1.667100.3.579.2.067031-16-2513Fuqwdje0842967 2.840.1.170256.3.579.2.408188-71-5913Spfrxon9166963 2.840.1.112434.3.579.2.315144-87-3405Ibdiets5940638 2.16840.1.613531.3.579.2.037670-81-7996Bpsalsb7015674 2.840.1.962007.3.579.2.635568-12-8271Ojiuwxd8798487 2.16840.1.130965.3.579.2.213237-65-8134Hmxrmgj2833835 2.16.840.1.835921.3.579.2.560415-90-9228Ipvadyx0379429 2.16.840.1.322301.3.579.2.273784-32-5667Oevgoeo1521415 2.16.840.1.890507.3.579.2.864093-92-3055Nkgvlcv0733864 2.16.840.1.068950.3.579.2.0868 2091Ikfpepr0127506 2.16.840.1.664221.3.579.2.329551-79-5498Gwswgcs1262235 2.16840.1.149607.3.579.2.607161-50-5077Gbtdwsu1438320 2.16840.1.000985.3.579.2.625373-94-2920Wdipipi0322207 2.16840.1.611011.3.579.2.102698-18-3568Bjkdjqr1717549 2.16840.1.679739.3.579.2.241770-12-8505Okykfxu5904847 2.16840.1.830007.3.579.2.630067-58-3602Ctiromp6855953 2.16840.1.790014.3.579.2.950756-18-8248Pohswcv1277016 2.16.840.1.017550.3.579.2.575652-65-5866Eeccmam2418558 2.16.840.1.527279.3.579.2.793896-02-8124Uvvudsi4985764 2.16.840.1.426160.3.579.2.973787-11-2118Kszrgxp4340397 2.16.840.1.118010.3.579.2.272936-94-4167Gmiamrt3605996 2.16.840.1.853120.3.579.2.846868-96-8114Eagclkx5727461 2.16.840.1.641548.3.579.2.414136-36-0150Sfcojdp5377857 2.16.840.1.315864.3.579.2.591105-76-0523Munpmsa3430689 2.16.840.1.090902.3.579.2.521053-42-9170Atnhmhk4867604 2.16.840.1.206896.3.579.2.823587-45-0469Ovxlbqt4696508 2.16.840.1.192596.3.579.2.219022-44-3660Xuvuefm8475948 2.16.840.1.460263.3.579.2.466175-55-6758Mnlukme5784195 2.16.840.1.077452.3.579.2.1843Duroyjk32341682 2.16.840.1.066205.3.579.2.531 Social History DateTypeDetailFacilityUnknown if ever smokedNodeaconess incarnate word [facility] [place] [employer] Other Start: 03-27-2019 End: 38-11-7365Phg Assigned At BirthParkview Health Montpelier Hospitaltart: 05-16-2023 End: 24-82-9337Udfljdc smoking status NHISNever smoked tobaccoSelect Medical [facility]health [facility] Start: 05-16-2023 End: 33-38-3169Hvntyau use and exposureSmokeless tobacco non-userParkview Health Montpelier Hospitaltart: 05-16-2023 End: 37-28-3823Hdjcnkb intakeCurrent drinker of alcohol (finding)[facility] Hospital[facility]art: 03-27-2019 End: 08-32-5292Tiugqoi of Social functionParkview Health Montpelier Hospitaltart: 94-29-9278ATM7 Appsq4YjntluudxParkview Health Montpelier Hospitaltart: 42-33-8049Djjvhev Comment2 drinks every other day, maybe 3. beer.[facility] Hospital[facility]art: 62-50-3503Esu Assigned At BirthMale [facility] Hospitalt[facility]: 01-76-5007Brcirw identityIdentifies as male gender (finding)[facility] smoking status NHISTobacco smoking consumption unknownProKee Square SystemStart: 14-88-0223Ykw assigned at birthNot on file [employer] Global Supporttart: 20-48-4823HlzZyqt (finding)[employer] Medical [employer] Procedure CodeEquipment CodeEquipment Original TextEquipment IdentifierDates Bnm-Jb-M-Kind Implant - [id number]_kvyGggsq: 37-60-5494Xukfukb on above: Description: CHECK PRICEHumeral Insert Socket 36 M + [id number]: 11-09-7079Zxdcdm Rsp 36mm Standard Socket [employer] Humerus - [id number]_impStart: 11-20-5060Tdnz Altivate Djo Surgical 12 Standard 108mm Humeral Sterile Shoulder - [id number]_hftXioli: 27-36-7129Rxbzhkvjh Rsp P2 30mm Glenoid Sterile - [id number]_ppoSbivk: 97-31-1076Kbecu Rsp 5mm 18mm Bone Lock Glenoid Baseplate Shoulder - [id number]_thnNeyra: 34-38-1609Jmihl Rsp 5mm 26mm Bone Lock Glenoid Baseplate Shoulder - [id number]_wnzQhclt: 84-12-0189Syrbluewc Rsp 6.5mm Wiggins 30mm Glenoid - [id number]_fqwShtxk: 34-23-0042Ftsl Rsp 36mm Neutral Glenoid Retain Screw - [id number]_aof Start: 15-93-3978Hkeo Rsp 36mm Neutral Glenoid Retain Screw - [id number]_impStart: 78-95-6161Fcopz Rsp 5mm 30mm Bone Lock Glenoid Baseplate Shoulder - [id number]_jrcWkiyz: 21-86-4251Lqylb Rsp 5mm 30mm Bone Lock Glenoid Baseplate Shoulder - [id number]_cmvPmirq: 94-03-6698Yzzsr Rsp 5mm 18mm Bone Lock Glenoid Baseplate Shoulder - [id number]_ffgTgxkq: 51-69-4005Slamy Rsp 5mm 22mm Bone Lock Glenoid Baseplate Shoulder - [id number]_impStart: 68-53-6924Yvvmq Rsp 5mm 26mm Bone Lock Glenoid Baseplate Shoulder - [id number]_yvjSlevm: 92-97-5985Hdhly Rsp 5mm 18mm Bone Lock Glenoid Baseplate Shoulder - [id number]_dgsAstnl: 07-16-2019 Clinical Notes 12-19-2016 to 06-27-2025 Note Date & VgdoGhxnCelflgoj93-68-4638 NoteUT Cardiology - [facility] Subjective Amina Lim is a 80 [...] platelets 233 next l (more content not included)...[facility]01-23-2025 History of Present illness Narrative* LORELEI Soto - 11/07/2024 8:15 AM EST Images from the original note were not included. HISTORY OF PRESENT ILLNESS: POST OP PT Amina Lim is an 79 y.o. @ male. (EST PT) S/P (L) TKA 08/22/24 (11 WKS ) XRAYS DONE 10/03/24 IN [facility] 10/18/24 DOING WELL. S/P EXTENDED PT X2 WKS AFTER LAST VISIT D/T LIMITED ROM. DENIES DISCOMFORT. MINIMAL SWELLING MEDIALLY. CONTINUES HEP - INCREASED ROM / STRENGTH, ALMOST FULL. TYL 3X/DAY. DICLOFENAC GEL DAILY. DENIES WEARING COMPRESSION SOCKS. DENIES ICING, ELEVATING. TAKES 2 IRON PILLS/DAY. CONTINUES TOTAKE ASA 81MG BID. PT WOULD LIKE TO [...] knee's condition compared to the preoperative state. Hisrange of motion is commendable, and he has resumed regular exercise sessions, a feat he was unable to achieve prior to the surgery due to persistent left knee pain. A follow-up appointment has been scheduled for 1 year from now, during which bilateral knee x-rays will be conducted. The necessity ofdental prophylaxis with antibiotics, a recommendation that will [...] for requiring urgent evaluation. documented in this encounterHeartland Behavioral Health ServicesUrtaniexmg87-32-1979 NoteUT Cardiology - [facility] Subjective Amina Lim is a 79 [...] Hyperlipidemia, used to be (more content not included)...[facility]01-07-2025 History of Present illness Narrative* Lyndsya Salgado, - 10/22/2024 10:20 AM EST Images from the original note were not included. Department of Kidney Medicine Medical Specialties [facility] SERVICE DATE: 10/22/2024 SERVICE TIME: [...] renal function. Following with cardiology at the [facility]. No longer taking NSAIDs after [...] Take 1 tablet by mouth once daily. Bcbkg-9-JLY-EPA-Fish Oil (FISH OIL) 1,000 mg (120 mg-180 mg) cap Take 1 g by mouth once daily. lovastatin (MEVACOR) 20 mg tablet Take 20 mg by mouth daily at bedtime. multivitamin (MULTIPLE VITAMINS) tablet Take 1 tablet by mouth once daily. Saw [place] 160 mg capsule Take 160 mg by [...] studies, and office notes were reviewed in [facility] Sodium (mmol/L) Date Value 06/14/2023 134 (L) [...] which included preparing to see the patient, hvbd-xr-qsyg patient care, completing clinical documentation, and obtaining and/or reviewing separately obtained history. Visit [facility]X Inherent E&M Associated with [facility] ([id number]) SIGNATURE: Lyndsay Slagado DO MHSA PATIENT NAME: Amina Lim DATE: October 22, 2024 TIME: 10:48 AM CC: PRIMARY CARE PHYSICIAN: Narciso Bullock MD documented in this encounterSelect Medical [facility]-2025 NoteHNO ID: [id number] Author: LYNDSAY SALGADO DO Service: ? Author Type: Physician Type: Progress Notes Filed: 10/22/2024 10:48 Note Text: Department of Kidney Medicine Medical Specialties [facility] SERVICE DATE: 10/22/2024 SERVICE TIME: [...] renal function. Following with cardiology at the [facility]. No longer taking NSAIDs after [...] Take 1 tablet by mouth once daily. Octkj-7-CYM-EPA-Fish Oil (FISH OIL) 1,000 mg (120 mg-180 mg) cap Take 1 g by mouth once daily. lovastatin (MEVACOR) 20 mg tablet Take 20 mg by mouth daily at bedtime. multivitamin (MULTIPLE VITAMINS) tablet Take 1 tablet by mouth once daily. Saw [place] 160 mg capsule Take 160 mg by [...] respiratory effort. Lungs karely (more content not included)...[facility]01-02-2025 Telephone encounter Note* Telephone Encounter - Porfirio Hamilton MA - 10/17/2024 3:24 PM EST Images from the original note were not included. Orders printed and faxed to number provided below. Confirmation received. Pt notified DEVIN Angel Diana, DO [facility] hour ago (2:17 PM) Please fax lab orders to [facility] and let patient know that I have ordered them. (Covering for Dr Salgado) Thanks Cassidy [facility]01-02-2025 Miscellaneous Notes* Telephone Encounter - Porfirio Hamilton MA - 10/17/2024 3:24 PM EST Images from the original note were not included. Orders printed and faxed to number provided below. Confirmation received. Pt notified DEVIN Angel Diana, DO [facility]1 hour ago (2:17 PM) Please fax lab orders to [facility] and let patient know that I have ordered them. (Covering for Dr Salgado) Thanks Cassidy * Telephone Encounter - Cassidy Arita DO - 10/17/2024 2:11 PM EST Covering for Dr Salgado CKD lab work ordered Cassidy Arita DO October 17, 2024, 2:15 PM * Telephone Encounter - Cassidy Arita DO - 10/17/2024 2:11 PM EST ----- Message from RHODA Han sent at 10/17/2024 1:10 PM EST ----- Regarding: Lab orders for upcoming appt w/Dr. Salgado Contact: Patient is requesting labs for upcoming appt on 10/22/24. Labs need to be faxed to [facility] @ [phone]. Call pt when done Danielle Blanchard [facility] Tele[facility] encounter Note * Telephone Encounter - Cassidy Arita DO - 10/17/2024 2:11 PM EST Covering for Dr Salgado CKD lab work ordered Cassidy Arita DO October 17, 2024, 2:15 PM [facility] [place]01-02-2025 Telephone encounter Note* Telephone Encounter - Cassidy Arita DO - 10/17/2024 2:11 PM EST ----- Message from RHODA Han sent at 10/17/2024 1:10 PM EST ----- Regarding: Lab orders for upcoming appt w/Dr. Salgado Contact: Patient is requesting labs for upcoming appt on 10/22/24. Labs need to be faxed to [facility] @ [phone]. Call pt when done Danielle Blanchard [facility] [place]12-24-2024 History of Present illness Narrative* Shirlene Blakely, PT - 10/08/2024 10:15 AM EST Images from the original note were not [...] stretch into flexion PROM; tibial extension mobs Laser Beam Color Scanner Operator Goals: Increase ROM left knee to 0-110* [...] below. Physician Signature: Date: documented in this encounterHeartland Behavioral Health [id number] History of Present illness Narrative* Shirlene Blakely, PT - 10/03/2024 10:00 AM EST Images from the original note were not [...] 2-3x/weeks x 6 weeks documented in this encounterHeartland Behavioral Health [id number] History of Present illness Narrative* LORELEI Soto - 10/03/2024 8:15 AM EST Images from the original note were not included. HISTORY OF PRESENT ILLNESS: POST OP PT Amina Lim is an 79 y.o. @ male. (EST PT) S/P (L) TKA 08/22/24 (6WKS). XRAYS DONE TODAY, 10/03/24 IN [facility] DOING WELL. CONTINUES TO HAVE SOME DISCOMFORT - TAKING PERCOCET 1/2 Q 6 HRS ; CONTINUES TO ICE. CONTINUES PHYSICAL THERAPY 2x WEEKLY @ [facility] - NOTES INCREASING ROM & STRENGTH. SOME [...] ballotable and compartments were soft to the operativelower extremity. Dorsalis pedis and posterior tibial pulses were present and equal bilaterally. There was no evidence of infection or ascending lymphangitis to operative lower extremity. Sensation tolight touch was intact to all dermatomes to [...] for requiring urgent evaluation. documented in this encounterHeartland Behavioral Health [id number] History of Present illness Narrative* Shirlene Blakely, PT - 09/23/2024 9:45 AM EST Time In: 9:35 AM Time Out: 10:15 [...] therapy at each session to improve motion. Patienttolerated session well today, assess patients response at next session. Plan: PT 2-3x/weeks x 6 weeks documented in this encounterHeartland Behavioral Health [id number] History of Present illness Narrative* Roseanne Sousa, PT - 09/16/2024 12:15 PM EST Time In: 12:05 pm Time Out: 12:55 Supervised Time: 40 min Total Time: 50 min Visit Number: 4, Medicare, has used $1321.70 toward Medicare cap at Chief Complaint: Z96.652: s/p total knee replacement [...] camping, dogs Employment retired 15 years from [employer] INTERVENTIONS: X ( ) manual therapy X 40/10 minutes therapeutic exercises for ROM and strengthening X ( ) minutes modalities: ice PT Assessment: No change in knee flexion/extension today. Did tolerate all exercise well in PT. Ice at home. 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 Physician Signature: Date: documented in this encounterHeartland Behavioral Health [id number] History of Present illness Narrative* Roseanne Sousa, PT - 09/09/2024 5:45 PM EST Time In: 5:30 pm Time Out: 6:20 [...] camping, dogs Employment retired 15 years from [employer] INTERVENTIONS: X 30 minutes therapeutic exercises for ROM and strengthening X minutes modalities: ice, e-stim prn PT Assessment: Therapy Diagnosis: 2. 5 weeks post op left TKA Functional Limitations: Laser Beam Color Scanner Operator Goals: Increase ROM left knee to 0-110* [...] below. Physician Signature: Date: documented in this encounterHeartland Behavioral Health [id number] History of Present illness Narrative* LORELEI Soto - 09/05/2024 10:30 AM EST Images from the original note were not [...] STARTING OUTPT THERAPY NEXT WEEK @ [facility]. NOTES INCREASING ROM & STRENGTH - USING [...] ballotable and compartments were soft to the operativelower extremity. Dorsalis pedis and posterior tibial pulses were present and equal bilaterally. There was no evidence of infection or ascending lymphangitis to operative lower extremity. Sensation tolight touch was intact to all dermatomes to bilateral lower extremities. Negative Homans and negative Juan were noted bilaterally to lower extremities. Incision was healing without evidence of infection Procedures No orders of the defined types were placed in this encounter. ASSESSMENT: ICD-10-CM 1. S/P TKR (total knee replacement), left Z96.652 2. Post-operative pain G89.18 HYDROcodone-acetaminophen ([place]) 5-325 MG tablet PLAN: Assessment & Plan [...] for requiring urgent evaluation. documented in this encounterHeartland Behavioral Health [id number] Instructions* Patient Instructions* LORELEI Soto - 09/05/2024 10:30 AM EST [...] submerging wound pending recheck. documented in this [facility]11-14-2024 Telephone encounter Note* Telephone Encounter - José Manuel Wylie NP - 08/29/2024 2:44 PM EST Patient home PT notified us of need for post op pain rx refill. PDMP reviewed. [place] [id number] Miscellaneous Notes* Telephone Encounter - José Manuel Wylie NP - 08/29/2024 2:44 PM EST Patient home PT notified us of need for post op pain rx refill. PDMP reviewed. documented in this [facility]11-06-2024 Telephone encounter Note* Telephone Encounter - José Manuel Wylie NP - 08/21/2024 8:03 AM EST Post op pain rx. PDMP reviewed [id number] Miscellaneous Notes* Telephone Encounter - José Manuel Wylie NP - 08/21/2024 8:03 AM EST Post op pain rx. PDMP reviewed documented in this [facility]10-30-2024 Telephone encounter Note* Telephone Encounter - Eva Rosenberg MA - 08/14/2024 11:10 AM EDT Acknowledged, thank you. [facility] Health [id number] Miscellaneous Notes* Telephone Encounter - Eva Rosenberg MA - 08/14/2024 11:10 AM EDT Acknowledged, thank you. * Telephone Encounter - Elizabeth Petersen - 08/14/2024 11:06 AM EDT Patient left vm to let us know he has been approved through medicare to have his LT TKA done on 08/22 with . documented in this [facility]10-30-2024 Telephone encounter Note* Telephone Encounter - Elizabeth Petersen - 08/14/2024 11:06 AM EDT Patient left vm to let us know he has been approved through medicare to have his LT TKA done on 08/22 with . [facility] Health [id number] NoteXR BONE LENGTH STUDY Bone length evaluation History: Osteoarthritis, limb length and alignment, knee pain Comparison: None Findings: Standing frontal view of the bilateral lower extremities obtained from the iliac crest through the feet for limb length and alignment without marker device. Impression: Severe Arthritis, osteophytes, joint space narrowing Left knee shows jost-rh-omun medial compartment arthritis with varus angulation measuring 4 degrees. Appropriate alignment of the right femoral-tibial angle with 2 degrees valgus and a unremarkable prosthesis of the knee Finalized by Micheal Johnson MD on 08/14/2024 5:58 [facility] 08-13-2024 History of Present illness Narrative* LORELEI Soto - 08/13/2024 1:00 PM EDT Images from the original note were not [...] MG tablet Every 24 hours Iron Polysacch Ifgba-X98-IF (Poly-Iron 150 Forte) 150-0.025-1 MG capsule 1 [...] Ambulatory referral to Physical Therapy Iron Polysacch Qupva-U95-LA (Poly-Iron 150 Forte) 150-0.025-1 MG capsule Chlorhexidine Gluconate (Hibiclens) 4 % solution 2. Primary osteoarthritis of left knee M17.12 Ambulatory referral to Physical Therapy Iron Polysacch Qfjej-D01-AS (Poly-Iron 150 Forte) 150-0.025-1 MG capsule Chlorhexidine Gluconate (Hibiclens) 4 % solution 3. Eczema, unspecified type L30.9 triamcinolone (Kenalog) 0.1 % cream PLAN: This patient presents for preadmission testing for upcoming surgery. Complete history with medical, surgery, and current allergy and medication list obtained. Consent for surgery signed and witnessed after verbal consent to perform surgery received. All questions answered and proposed surgeryscheduled. Discussed rash to right lateral knee and now left medial thigh, will trial topical steroid,, pt mayneed derm referral if not improving.. (L) TKA 08/22 @[facility] INSTRUCTIONS GIVEN TODAY 08/13 @1PM - PAWEL BULLOCK CLEARANCE 08/19 @11:15AM CHENG NOTIFIED NO PREOP PAYMENT / PRECERT ; MEDICARE Follow up for 09/05/24 @ 10:30AM - Bret Jennings. documented in this encounterHeartland Behavioral Health [id number] History of Present illness Narrative* Jr. El Matos Joseph, DO - 08/07/2024 10:00 AM EDT Images from the original note were not included. HISTORY OF PRESENT ILLNESS: EST PT Amina Lim is an 79 y.o. @ male. (R) KNEE (EST PT) S/P (R) TKA 04/04/24 (17WKS 6DAYS) XRAYS, 05/15/24 IN [facility] NO MDP / PREDNISONE FINISHED THERAPY (10 SESSIONS) @ [facility] NO PAIN MGMT DOING WELL. CONTINUES HEP / RECUMBENT BIKE - NOTES GOOD ROM ; DENIES ANY WEAKNESS. DENIES ANY SWELLING. STATES HE IS VERY PLEASED WITH SURGERY. CONTINUES TO USE VOLTAREN GEL. (L) KNEE (EST PT) RECHECK (L) KNEE ; HERE TO DISCUSS SURGICAL OPTIONS XRAYS, STANDING AP 05/15/24 IN [facility] NO MRI NO MDP / PREDNISONE [...] including the patient's age and longevity of pr osthesis, usual postop course and possible need for [...] failure, liver failure, diabetes, cardiac event in thelast year, sleep apnea, bleeding disorder, excessive tobacco use, or if at the time of surgery the patient is greater than 80 years old, or requires discharged to a ch[facility] facility, the patient may require to have additional inpatient hospital stay following the surgery. Physical therapy is contraindicated in this patient's case because of dgpc-fu-mude articulation of the patient's knee. El Ruiz D.O. documented in this encounterHeartland Behavioral Health [id number] History of Present illness Narrative* Jr. El Ruiz DO - 06/26/2024 11:15 AM EDT Images from the original note were not included. HISTORY OF PRESENT ILLNESS: EST PT Amina Lim is an 79 y.o. @ male. (R) KNEE (EST PT ; LAST APPT W/ [facility]) S/P (R) TKA 04/04/24 (11WKS 6DAYS) XRAYS, 05/15/24 IN [facility] NO MDP / PREDNISONE FINISHED THERAPY [...] ELEVATING. NOTES DIFFICULTY SLEEPING / WAKES HS. USINGVOLTAREN GEL ; TAKING TYLENOL. (L) KNEE (EST PT ; LAST APPT W/ [facility]) NEW COMPLAINT, (L) KNEE DISCOMFORT. SYMPTOMS FOR MANY YEARS, WORSE SINCE HAVING (R) TKA / HAVING TO COMPENSATE XRAYS, STANDING AP 05/15/24 IN [facility] NO MRI NO MDP / PREDNISONE [...] up. El Ruiz D.O. documented in this encounterHeartland Behavioral Health [id number] History of Present illness Narrative* Emily Mercado - 05/24/2023 9:51 AM EDT POP[employer]ATION HEALTH NAVIGATION OUTREACH Action/[facility] [place] Support: Called pt to schedule an appt [...] 24, 2023 9:52 AM documented in this encounterSelect [facility] [place]-2023 Instructions* Patient Instructions* Lyndsay Salgado DO - 05/16/2023 9:50 AM [...] have your physicians fax over your records [phone] Make an appointment with cardiology for slow [...] please take a few minutes to fill itout and send it back. It will be greatly appreciated. documented in this encounterSelect Medical [facility] [place]08-01-2023 History of Present illness Narrative* Lyndsay Salgado DO - 05/16/2023 9:20 AM EDT [facility] SERVICE DATE: 05/16/2023 SERVICE TIME: 10:06 AM REASON FOR CONSULT: I am asked to see this patient in consultation for my opinion regarding chronickidney disease stage III. My recommendations will be [...] that he was previously following with a education department registrar that went over his labs every visit. States that his renal function was worsening and he was taken off a water pill that improved his renal function. His education department registrar stopped seeing patients in the office and is now only seeing dialysis patients or he is only seeing patients in the hospital. Previously told that he should come off diclofenac. States that when he came off, he was in so muchpain he couldn't sleep. Pain is generalized. States [...] Take 1 tablet by mouth once daily. Hbfbu-9-CTI-EPA-Fish Oil (FISH OIL) 1,000 mg (120 mg-180 mg) cap Take 1 g by mouth once daily. Lecithin 1,200 mg cap Take 1 capsule by mouth once daily. lovastatin (MEVACOR) 20 mg tablet Take 20 mg by mouth daily at bedtime. multivitamin (MULTIPLE VITAMINS) tablet Take 1 tablet by mouth once daily. Saw [place] 160 mg capsule Take 160 mg by [...] ) Wt 92.5 kg (204 lb) BMI 28.85kg/m Constitutional: No acute distress, Responsive, Normal habitus, [...] 16, 2023 TIME: 10:06 AM OFFICE NUMBER: [phone] CC: REFERRING PROVIDER: Narciso Bullock MD PRIMARY CARE PHYSICIAN: Narciso Bullock MD documented in this encounterSelect Medical [facility] [place]11-22-2022 Evaluation note* Encounter Date Diagnosis Assessment Notes Treatment Notes Treatment Clinical Notes Aug, Hypertensive chronic kidney disease with [...] my ofice if BP remains > 140/90 Aug,hronic kidney disease, stage 3a (ICD-10 - N18.31)He has a chronic kidney disease with minimal [...] 4 months to monitor renal function panel Aug,nemia of renal disease (ICD-10 - D63.1)Hemoglobin stable more than 12 g/dL with no erythropoietin. No CBC at this visit. 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 Long-term risks of nonsteroidal anti-inflammatory use has been addressed. He did try Tylenol with no effect.. I asked the patient to follow with Dr. Bullock for NSAIDs alternative like Tramadol [facility] Other 12-08-2021 Evaluation note* Encounter Date Diagnosis Assessment Notes Treatment Notes Treatment Clinical Notes Sep, Hypertensive chronic kidney disease with stage 1 through stage 4 chronic kidney disease, or unspecified chronic kidney disease (ICD-10 - I12.9) Blood pressure is well controlled on current medications. Furosemide was stopped because of dizziness Sep,hronic kidney disease, stage 3a (ICD-10 - N18.31) He has a mild chronic kidney disease with minimal proteinuria related to hypertensive nephrosclerosis. baseline serum creatinine around 1.3-1.5 mg/dl with fluctuation of serum creatinine according tothe blood pressure and volume status. He has minimal proteinuria. Since renal function has been stable, we are going to see the patient once a year. He also see his PCP once a year we will check his blood pressure and BMP. He can call our office if condition changes. Sep,nemia of renal disease (ICD-10 - D63.1) Hemoglobin stable more than 12 g/dL with no erythropoietin. 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 Long-term risks of nonsteroidal anti-inflammatory use has been addressed. He did try Tylenol with no effect. [facility] Other 03-06-2017 History of Past illness Narrative* Problem Noted DateDiagnosed DateResolved DatePrimary osteoarthritis of left shoulder Prostate [id number]'s disease documented as of this encounter (statuses as of 05/16/2023) [facility] [place]03-06-2017 History of Past illness Narrative* ProblemNoted Date Diagnosed DateResolved DatePrimary osteoarthritis of left mrowrebk39/06/2017 06/25/2019Prostate zcixws92Peyronie's rreiqnu3007/08/2009 06/25/2019documented as of this encounter (statuses as of 06/26/2023) [facility] note* Diagnosis Chronic kidney disease, unspecified CKD stage- Primary Bradycardia Other specified cardiac dysrhythmias Generalized pain Anemia of renal disease Anemia in chronic kidney disease Primary hypertension Unspecified essential hypertension documented in this encounter [facility] noteNo assessment information availablePromedica Toledo Hospital Work Phone: Evaluation note* Diagnosis Acute pain of right knee- Primary History of right knee joint replacement Primary osteoarthritis of left knee documented in this encounter [facility]* Diagnosis Preop examination- Primary Unspecified pre-operative examination Primary osteoarthritis of left knee Eczema, unspecified type documented in this encounter [facility] note* Diagnosis Post-operative pain- Primary Other acute postoperative pain documented in this encounter [facility]* Diagnosis S/P TKR (total knee replacement), left- Primary Post-operative pain Other acute postoperative pain documented in this encounter [facility]* Diagnosis Post-operative pain Other acute postoperative pain documented in this encounter [facility] note* Diagnosis S/P total knee replacement, left- Primary Acute postoperative pain of left knee documented in this encounter [facility] note* Diagnosis S/P total knee replacement, left- Primary Acute postoperative pain of left knee documented in this encounter [facility]* Diagnosis S/P total knee replacement, left- Primary Acute postoperative pain of left knee S/P total knee replacement, left- Primary Acute postoperative pain of left knee documented in this encounter [facility]* Diagnosis S/P total knee replacement, left- Primary Acute postoperative pain of left knee documented in this encounter [facility]* Diagnosis S/P TKR (total knee replacement), right- Primary Primary osteoarthritis of left knee documented in this encounter [facility] note* Diagnosis Acute postoperative pain of left knee- Primary S/P total knee replacement, left documented in this encounter [facility]* Diagnosis Acute postoperative pain of left knee- Primary S/P total knee replacement, left documented in this encounter [facility]* Diagnosis Acute postoperative pain of left knee- Primary S/P total knee replacement, left documented in this encounter [facility] note* Diagnosis S/P TKR (total knee replacement), left- Primary Acute pain of left knee documented in this encounter [facility] note* Diagnosis Pre-operative clearance- Primary Preoperative [...] CKD (HCC)- Primary documented in this encounter [facility] note* Diagnosis Acute postoperative pain of left knee- Primary S/P total knee replacement, left documented in this encounter [facility] note* Diagnosis Pre-operative clearance- Primary Preoperative [...] specified cardiac dysrhythmias documented in this encounter [facility]* Diagnosis S/P TKR (total knee replacement), left- Primary documented in this encounter [facility]* Diagnosis Encounter for other preprocedural examination [facility] Diagnosis Encounter for other preprocedural examination documented in this encounter [facility] SystemHistory general Narrative - Reported* Type Description Date Medical History hypertension Medical HistorycholecystecomyMedical HistoryArthritis left shoulder. s/p trauma long time agoMedical HistoryHyperlipidemiaMedical HistorySleep apnea with CPAP Surgical Zkjtwthnfkfgmgmpezy7439Dtcyclvb HistoryLeft shoulder replacement [id number] HistoryRadiation seeds put in epkupqvyf6054Fvwdbsyq History SHOULDER REPLACEMENT RIGHT07/16/2019Surgical HistoryNEW LENS PUT IN HIS RIGHT EYE 12/2019Hospitalization Historysee above [facility] Other History of Present illness Narrative* Shirlene [...] 2-3x/weeks x 6 weeks documented in this encounterNOMissouri Baptist Hospital-SullivanInstructionsNot on filedocumented in this encounterProWestern Reserve HospitalReason for referral (narrative)* Diagnostic Procedure Only (Routine) - Pending ReviewSpecialtyDiagnoses / Procedures Referred By ContactReferred To ContactUS IMAGING Diagnoses Chronic kidney disease, unspecified CKD stage Procedures US KIDNEY/BLADDER US RETROPERITONEAL REAL TIME W/IMAGE COMPLETE Lyndsay Salgado DO [address] [place] [address] Us Imaging Referral IDStatusReasonStart DateExpiration DateVisits RequestedVisits [id number] Auto-Generated Referral * Consult, Test, Treat (Routine) - AuthorizedSpecialtyDiagnoses / Procedures Referred By ContactReferred To ContactPain Management Diagnoses Generalized pain Procedures CONSULT TO PAIN MGT OFFICE/OUTPATIENT [facility] 60-74 MINUTES Lyndsay Salgado DO [address] [place] [address] Referral IDStatusReasonStart DateExpiration DateVisits RequestedVisits [id number] PCP Requested Referral / * Consult, Test, Treat (Routine) - AuthorizedSpecialtyDiagnoses / Procedures Referred By ContactReferred To ContactCardiology Diagnoses Bradycardia Procedures CONSULT TO CARDIOLOGY OFFICE/OUTPATIENT [facility] 60-74 MINUTES Lyndsay Salgado DO [address] [place] [address] Referral IDStatusRe[facility] DateExpiration DateVisits RequestedVisits [id number] PCP Requested Referral [facility] for visit Narrative* Rehabilitation - Outpatient (Routine) - AuthorizedSpecialtyDiagnoses / ProceduresReferred By Contact Referred To ContactPhysical Therapy Diagnoses S/P total knee replacement, left Procedures DE OFFICE/OUTPATIENT [facility] Queta Tilley PA [address] [facility] [address] [place] [address] Phone: tel: fax: Seth Ragland, PT [address] [place] [address] Phone: tel: fax: Referral IDStatusReasonStart DateExpiration DateVisits RequestedVisits [id number] Consult and Treat / [facility] HealthcareReason for visit Narrative* Rehabilitation - Outpatient (Routine) - AuthorizedSpecialtyDiagnoses / ProceduresReferred By ContactReferred To ContactPhysical Therapy Diagnoses S/P total knee replacement, left Procedures DE OFFICE/OUTPATIENT [facility] Queta Tilley PA [address] [place] [address] [place] [address] Phone: tel: fax: Seth Ragland, PT [address] [place] [address] Phone: tel: fax: Referral IDStatusReasonStart DateExpiration DateVisits RequestedVisits [id number] Consult and Treat [facility] HealthcareReason for visit Narrative* Rehabilitation - Outpatient (Routine) - AuthorizedSpecialtyDiagnoses / ProceduresReferred By ContactReferred To ContactPhysical Therapy Diagnoses Presence of left artificial knee joint Procedures DE MANUAL THERAPY TQS 1/> REGIONS EACH 15 MINUTES Queta Tilley PA [address] [place] [address] Phone: tel: fax: Seth Ragland, PT [address] [place] [address] Phone: tel: fax: Referral IDStatusReasonStart DateExpiration DateVisits RequestedVisits [id number] Consult and Treat [facility] Healthcare Summary Purpose Family History No Family History Records Found Relationship Condition Age at Onset Recorded Date/T bridger father Heart disease Unknown DeceasedUnknownfamily memberDeceasedUnknownNot SpecifiedDiabetes mellitusUnknown Malignant neoplasmUnknownsisterHeart diseaseUnknown Advance Directives No Advanced Directives Records Found Advance Directive Response Recorded Date/ Time Advance Directives No August 11, 2020 1:09pm Hospital Course Note HNO ID: [id number] Author: Jae [email or web address] (Res) MD Shi Service: [...] and content) DATE CREATED AUTHOR 12/10/2018 [facility] DATE CREATED AUTHOR AUTHOR'S ORGANIZ ATION 07/18/2019 [facility] DATE CREATED AUTHOR AUTHOR'S ORGANIZ ATION 07/01/2020 [facility] DATE CREATED AUTHOR AUTHOR'S ORGANIZ ATION 01/23/[address] [facility] DATE CREATED AUTHOR AUTHOR'S ORGANIZ ATION 03/24/2023 [facility] DATE CREATED AUTHOR AUTHOR'S ORGANIZ ATION 03/20/2024 [facility] DATE CREATED AUTHOR AUTHOR'S ORGANIZ ATION 08/15/2024 [facility] DATE CREATED AUTHOR AUTHOR'S ORGANIZ ATION 10/25/2024 [facility] DATE CREATED AUTHOR AUTHOR'S ORGANIZ ATION 11/09/2024 [facility] DATE CREATED AUTHOR AUTHOR'S ORGANIZ ATION 07/02/2025 [facility] REASON FOR VISIT (unrecogniz ed section and content) ReasonCommentsNew NngbcggHifchpFzkdgedsTljy-qlBqvcJoicsuKmxwtkohRlt-lx Exam ReasonOnset SygrKrqrzssoAdnwfud06/30/2024ReasonCommentsPost-opReasonCommentsPain Post-opReasonCommentsPainReasonCommentsFollow Up Source Comments (unrecognize d section and content) In the event this informatio n is protected by the Federal Confidentiality of Alcohol and Drug Abuse Patient Records regulations: The Federal rules restrict any use of the information to criminally investigate or prosecute any alcohol or drug abuse patient.[facility] the event this information is protected by the Federal Confidentiality of Alcohol and Drug Abuse Patient Records regulations: The Federal rules restrict any use of the information to criminally investigate or prosecute any alcohol or drug abuse patient.[facility] Dublin[facility] the event this information is protected by the Federal Confidentiality of Alcohol and Drug Abuse Patient Records regulations: The Federal rules restrict any use of the information to criminally investigate or prosecute any alcohol or drug abuse patient.[facility] Dublin[facility] the event this information is protected by the Federal Confidentiality of Alcohol and Drug Abuse Patient Records regulations: The Federal rules restrict any use of the information to criminally investigate or prosecute any alcohol or drug abuse patient.[facility] DublinIn the event this information is protected by the Federal Confidentiality of Alcohol and Drug Abuse Patient Records regulations: The Federal rules restrict any use of the information to criminally investigate or prosecute any alcohol or drug abuse patient.[facility] Care Teams (unrecognized sec tion and content) Team MemberRelationshipSpecialtyStart DateEnd Narciso Bullock MD PCP - General07/06/09Team MemberRelationshipSpecialtyStart DateEnd Date Narciso Bullock MD PCP - General07/06/09Team MemberRelationshipSpecialtyStart DateEnd Date Narciso Bullock MD PCP - General07/06/09 Team Status: Active Member Role Status Dates Narciso Bullock MD Primary Care Provider Active Team Status: Inactive Member Role Status Dates Narciso Bullock MD Primary Care Provider Active Start: March 18, 2024 End: March 18, 2024MattLORELEI Ballesteros-Skinny ProviderActiveStart: March 18, 2024 End: March 18, 2024Team MemberRelationshipSpecialtyStart DateEnd Date Narciso Bullock MD [address] [facility] [place] [address] PCP - [facility]09/25/23Team MemberRelationshipSpecialtyStart Date End Date Narciso Bullock MD [address] [facility] [place] [address] PCP - [facility] Elzztdox96/11/23Team MemberRelationshipSpecialtyStart Date End Date Narciso Bullock MD [address] [facility] [place] [address] [facility] Dhrhslzx90/11/23Team MemberRelationshipSpecialtyStart Date End Date Narciso Bullock MD [address] [facility] [place] [address] PCP - [facility] Uqornlvc82/11/23Team MemberRelationshipSpecialtyStart Date End Date Narciso Bullock MD [address] [facility] [place] [address] PCP - [facility] Iegdgjpp30/11/23Team MemberRelationshipSpecialtyStart Date End Date Narciso Bullock MD [address] [facility] [place] [address] PCP - Generalmily Baycmsrn65/11/23Team MemberRelationshipSpecialtyStart Date End Date Narciso Bullock MD [address] [facility] [place] [address] PCP - Generalmily Oqaxtssg83/11/23Team MemberRelationshipSpecialtyStart Date End Date Narciso Bullock MD [address] [facility] [place] [address] PCP - Generalmily Yqegcryc68/11/23Team MemberRelationshipSpecialtyStart Date End Date Narciso Bullock MD [address] [facility] [place] [address] PCP - Generalmily Shjlrweu01/11/23Team MemberRelationshipSpecialtyStart Date End Date Narciso Bullock MD [address] [facility] [place] [address] PCP - GeneralFamily Ixhzocda88/11/23Team MemberRelationshipSpecialtyStart Date End Date Narciso Bullock MD [address] [facility] [place] [address] [facility] - [facility] Ajmflqmy29/11/23Team MemberRelationshipSpecialtyStart Date End Date Narciso Bullock MD [address] [facility] [place] [address] PCP - GeneralFamily Mkqmxsxc91/11/23Team MemberRelationshipSpecialtyStart Date End Date Narciso Bullock MD [address] [facility] [place] [address] PCP - GeneralFamily Bbqfahxu16/11/23Team MemberRelationshipSpecialtyStart Date End Date Narciso Bullock MD [address] [facility] [place] [address] PCP - GeneralFamily Bagkrmiq10/11/23Team MemberRelationshipSpecialtyStart Date End Date Narciso Bullock MD [address] [facility] [place] [address] PCP - Generalmily Gnnaasqq87/11/23Team MemberRelationshipSpecialtyStart Date End Date Narciso Bullock MD [address] [facility] [place] [address] PCP - GeneralFamily Uqpalbvp68/11/23Team MemberRelationshipSpecialtyStart Date End Date Narciso Bullock MD [address] [facility] [place] [address] PCP - GeneralFamily Dnintuob14/11/23Team MemberRelationshipSpecialtyStart Date End Date Narciso Bullock MD [address] [facility] [place] [address] PCP - GeneralFamily Tnfsuucm64/11/23Team MemberRelationshipSpecialtyStart Date End Date Narciso Bullock MD [address] [facility] [place] [address] PCP - GeneralFamily Tqkwitpr15/11/23Team MemberRelationshipSpecialtyStart Date End Date Narciso Bullock MD PCP - General07/06/09Team MemberRelationshipSpecialtyStart DateEnd Date Narciso Bullock MD [address] [facility] [place] [address] PCP - GeneralFamily Ynqlbzst09/11/23Team MemberRelationshipSpecialtyStart Date End Date Narciso Bullock MD PCP - General07/06/09Team MemberRelationshipSpecialtyStart DateEnd Date Narciso Bullock MD [address] [facility] [place] [address] PCP - Generalmi Pzbhrqcy90/11/23Team MemberRelationshipSpecialtyStart Date End Date Narciso Bullock MD [address] [facility] [place] [address] PCP - Generalmily Skwuvzmk80/29/24Team MemberRelationshipSpecialtyStart Date End Date Narciso Bullock MD [address] [facility] [place] [address] PCP - Generalmi Yavarsxa29/29/24Team MemberRelationshipSpecialtyStart Date End Date Narciso Bullock MD [address] [facility] [address] PCP - GeneralFamily Jontohdz74/29/24 Goals (unrecognized section and content) Goals may [...] BE BASED ON THE PRIMARY CLINICAL RECORDS. [employer] [facility]. provides no warranty or guarantee of the accuracy or completeness of information in this document.
[2025-08-25 10:56] LABS: Free T3 2.13 pg/mL (2.18-3.98); Thyroid Stimulating Hormone 1.768 uIU/mL (0.358-3.740)
== END 2025-08-25 09:44 | disposition home or self-care (01) ==
LOC: LAB 09:47
PROVIDERS: PCP Family Medicine; Visit Provider Family Medicine
DX: E03.9 Hypothyroidism, unspecified (principal)
CPT/HCPCS: 36415; 84436; 84443; 84481

== ENCOUNTER 2025-09-23 09:31 | Outpatient (OUT) | payer MEDICARE, OTHER, SELFPAY ==
--- OUTSIDE RECORDS SUMMARY | 2025-09-23 09:54 | XMS_ITS | CCD ---
Author Organization [facility] Care Team Providers Care Mulcher Operator Name Role Phone RIZWANATRELL TELLEZ Jarrell Referring [...] Unavailable Narciso Bullock MD Primary Care Provider [phone] MD Narciso Bullock Primary Care Provider [phone] CHRISTINE Tilley Attending Provider Queta Tilley Attending Unavailable Queta Tilley Admitting Unavailable Narciso Bullock Primary Care Unavailable Narciso Bullock MD Primary Care Provider [phone] QUETA TILLEY Referring Unavailable NARCISO BULLOCK Primary Care Unavailable QUETA TILLEY Attending Unavailable QUETA TILLEY Referring Unavailable NARCISO BULLOCK Primary Care Unavailable Narciso Bullock MD Primary Care Provider [phone] NARCISO BULLOCK Primary Care Unavailable LYNDSAY SALGADO [...] Unavailable Narciso Bullock MD Primary Care Provider [phone] PHOENIX URIBE Attending Unavailable PHOENIX URIBE Attending Unavailable Allergies Allergy ClassificationReported Allergen(s)Allergy TypeDate of OnsetReaction(s) Facility (20 sources)Acetaminophen / oxyCODONE; Translations: [OXYCODONE-ACETAMINOPHEN] Drug Yaatjlk15-29-9720GtzubPBBI [facility] (20 sources)Other; Translations: [OTHER]Propensity to adverse reactions 83-29-4264UwcecUMXB Healthcare Medications Current Medications MedicationDrug Class(es)DatesSig (Normalized)Sig (Original)acetaminophen 325 mg / HYDROcodone bitartrate 5 mg oral tablet (9 sources)Opioid AgonistStart: 09-17-2024 End: 36-83-8921cjjc 1 tablet by mouth every six hours for painHYDROcodone- acetaminophen ([place]) 5-325 MG tablet Indications: S/P total knee replacement, left Take 1 tablet by mouth every 6 (six) hours if needed for severe pain for up to 5 days 20 tablet 09/17/2024 09/22/2024 ActiveStart: 08-29-2024 End: 86-76-6825apfv 1 tablet by mouth every six hours for painHYDROcodone- acetaminophen ([place]) 5-325 MG tablet Indications: Post-operative pain Take 1 tablet bymouth every 6 (six) hours if needed for severe pain for up to 5 days 20 tablet 09/05/2024 09/10/2024 ActiveStart: 08-21-2024 End: 43-86-9225jfuq 1 tablet by mouth every six hours for painHYDROcodone- acetaminophen ([place]) 5-325 MG tablet Indications: Post-operative pain Take 1 tablet bymouth every 6 (six) hours if needed for severe pain for up to 5 days 20 tablet 08/21/2024 08/26/2024 ActiveAcidophilus Extra Strength - (2 sources)Acidophilus Extra Strength - as directed Orally ActiveAlfalfa 500 MG (2 sources)[place] 500 MG as directed Orally Activeartemether / lumefantrine (1 source)AntimalarialArtemether-Lumefantrine 20-120 MG as directed Orally Activechlorhexidine gluconate 40 mg/ml medicated liquid soap (3 sources)Start: 08-13-2024 End: 15-37-0760Hkwkynzrcupfr Gluconate (Hibiclens) 4 % solution Indications: Preop [...] and 1 drop before bedtime. Active End: 45-39-8511vjwd 1 drop(s) into the eye(s) four times dailydiclofenac (VOLTAREN) 0.1 % ophthalmic solution 1 Drop four times daily. 10/22/2024 Discontinued (Other)diclofenac (VOLTAREN ARTHRITIS PAIN) 1 % topical gel Apply to affected area two times a day. Active End: 75-81-9534xake 1 tablet by mouth twice dailydiclofenac, EC, (VOLTAREN) 25 mg EC tablet Take 25 mg by mouth twice daily. 10/22/2024 Discontinuedtake 1 tablet by mouth every twelve hoursDiclofenac Sodium 75 MG 1 tablet Orally Twice a day ActiveComment on above:Take 25 mg by mouth twice daily.ferrous sulfate 325 mg oral tablet (20 sources)Start: 15-99-2884atps 1 tablet by mouth twice dailyferrous sulfate 325 mg (65 mg iron) tablet Take 1 tablet by mouth two times a day. 10/22/2024 ActiveFish Oils (2 sources)take 1 capsule by mouth once dailyFish Oil 1000 MG 1 capsule Orally Once a day Activefolic acid 1 mg / polysaccharide iron complex 150 mg / vitamin b12 0.025 mg oral capsule (12 sources)Vitamin B74Dqhgx: 08-13-2024 End: 28-87-5076rpzd 1 tablet by mouth once dailyIron Polysacch Shcao-I71-KM (Poly-Iron 150 Forte) 150-0.025-1 MG capsule Indications: Preop examination , Primary osteoarthritis of left knee Take 1 tablet by mouth Daily 30 capsule 1 08/13/2024 09/12/2024 Activegabapentin 300 mg oral capsule (20 sources)Anti-epileptic AgentStart: 08-21-2024 End: 69-38-5867yusb 1 capsule by mouth in the morninggabapentin (Neurontin) 300 MG capsule Indications: Post-operative pain Take 1 capsule (300 mg) by mouth in the morning and 1 capsule (300 mg) before bedtime. Do all this for 7 days. 14 capsule 08/30/2024 ActiveStart: 04-03-2024 End: 73-11-1442zbgj 1 capsule by mouth in the morninggabapentin [...] oral tablet (20 sources)Angiotensin 2 Receptor BlockerStart: 21-10-0308kxwxcwwpos (Avapro) 150 MG tablet 1 (one) time each day at the same time 12/08/2023 Active Multivitamins (2 sources)Multivitamins as directed Orally Activequercetin 50 mg oral tablet (1 source)take 1 tablet by mouth once dailyQuercetin 50 MG 1 tablet Orally Once a day ActiveSaw [place] 540 mg (2 sources)take 1 capsule by mouth once dailySaw [place] 540 mg 1 Capsule Orally Daily Activespironolactone 50 mg oral tablet (20 sources)Aldosterone Antagonisttake 1 tablet by mouth in the morning spironolactone (Aldactone) 50 MG tablet Take 50 mg by mouth in the morning. ActiveComment on above:Take 50 mg by mouth once daily.tamsulosin hydrochloride 0.4 mg oral capsule (20 sources)alpha-Adrenergic BlockerStart: 32-39-1242kmpx 1 capsule by mouth twice dailytamsulosin (FLOMAX) 0.4 mg Take 1 capsule by mouth two times a day. 10/22/2024 ActiveStart: 83-41-5407lxqfrnewex (Flomax) 0.4 MG 24 hr capsule 08/14/2023 ActiveStart: 09-30-2016 End: 95-53-1302tbos 0.4 mg by mouth once dailytamsulosin ER [...] acetonide 1 mg/ml topical cream (20 sources)CorticosteroidStart: 87-42-3893sdylslwvoncpm (Kenalog) 0.1 % cream Indications: Eczema, unspecified type Apply topically 2 (two) times a day 15 g 1 08/13/2024 Activeturmeric extract 500 mg oral capsule (2 sources)Turmeric 500 MG as directed Orally Activeubidecarenone 200 mg oral capsule (2 sources)take 1 capsule by mouth every twenty-four wxczcTwK13 200 MG 1 capsule with a meal [...] 500 mg oral tablet (1 source) End: 27-84-0165jkylosqekhhda (TYLENOL EXTRA STRENGTH) 500 mg tablet Take 1,000 mg by mouth as needed. 0 05/16/2023iscontinuedComment on above:Take 1,000 mg by mouth as needed.ascorbic acid 1000 mg oral tablet (5 sources)Vitamin C End: 08-03-6780dgff 1 tablet by mouth three times weeklyAscorbic [...] Inhibitor, Nonsteroidal Anti-inflammatory Drug Start: 07-16-2019 End: 21-75-1931tkkx 1 tablet by mouth twice dailyaspirin, enteric coated (ASPIRIN, ENTERIC COATED) 81 mg EC tablet Take 1 tablet by mouth twice daily for 14 days. 28 tablet 07/16/2019 10/22/2024 Discontinued End: 42-97-0274lwrc 1 tablet by mouth once dailyaspirin, enteric [...] capsule (2 sources)Nonsteroidal Anti-inflammatory DrugStart: 08-21-2024 End: 37-80-0075pasg 1 capsule by mouth once dailycelecoxib (CeleBREX) 200 MG capsule Indications: Post-operative pain Take 1 capsule (200 mg) by mouth Daily for 14 days 14 capsule 08/21/2024 09/04/2024 Expireddocusate sodium 100 mg oral capsule (1 source)Start: 07-16-2019 End: 08-00-6115rarw 1 capsule by mouth twice dailydocusate sodium (COLACE) 100 mg capsule Take 1 capsule by mouth twice daily. 60 capsule 1 07/16/2019 05/16/2023 DiscontinuedComment on above:Take 1 capsule by mouth twice daily. Garlic preparation (1 source)Non-Standardized Food Allergenic Extract End: 50-59-7583eouu 1 tablet by mouth once dailyGARLIC ORAL Indications: Prostate cancer (HCC) Take 1 tablet by mouth once daily. 0 05/16/2023 Disco ntinuedComment on above:Take 1 tablet by mouth once daily.Lactobac no.41- Bifidobact no.7 (PROBIOTIC-10) 70 mg (3 billion cell) cap (5 sources) End: 02-79-3117zioo 1 capsule by mouth once dailyLactobac no.41-Bifidobact [...] 1200 mg oral capsule (1 source) End: 41-04-7937bvhc 1 capsule by mouth once dailyLecithin 1,200 mg cap Take 1 capsule by mouth once daily. 0 05/16/2023 DiscontinuedComment on above:Take 1 capsule by mouth once daily.losartan potassium 25 mg oral tablet (8 sources)Angiotensin 2 Receptor BlockerStart: 10-03-2023 End: 42-47-7486rwgi 3 tablets by mouth once dailylosartan (COZAAR) 25 mg tablet Take 3 tablets by mouth once daily. 10/03/2023 10/22/2024 DiscontinuedStart: 19-74-1987nitz 1 tablet by mouth once dailylosartan (COZAAR) 100 mg tablet Indications: Prostate cancer (HCC) Take 100 mg by mouth once daily.0 09/23/2016 Activetake 1 tablet by mouth once dailyLosartan Potassium 50 MG TAKE 1 TABLET BY MOUTH DAILY for 90 ActiveComment on above:Take 100 mg by mouth once daily. lovastatin 20 mg oral tablet (7 sources)HMG-CoA Reductase Inhibitor End: 73-72-3521kiwk 1 tablet by mouth once daily at bedtimelovastatin (MEVACOR) 20 mg tablet Take 20 mg by mouth daily at bedtime. 10/22/2024 Discontinued Comment on above:Take 20 mg by mouth daily at bedtime.MINERALS ORAL (5 sources) End: 00-29-9180weyh 1 tablet by mouth once dailyMINERALS ORAL Take 1 tablet by mouth once daily. 10/22/2024 Discontinuedtake 1 tablet by mouth once daily MINERALS ORAL Take 1 tablet by mouth once daily. Activetake 1 tablet by mouth once dailyMINERALS ORAL Take 1 tablet by mouth once daily. 0 ActiveComment on above:Take 1 tablet by mouth once daily.multivitamin (MULTIPLE VITAMINS) tablet (5 sources) End: 76-72-5185eufn 1 tablet by mouth once dailymultivitamin (MULTIPLE [...] (5 sources)RNA Synthetase Inhibitor AntibacterialStart: 06-25-2019 End: 10-74-9917quenzjmwi (BACTROBAN) 2 % ointment Apply 0.5 inch with cotton swab (Q-tip) to each nostril in the morning and evening for 5 days prior to and including day of surgery. 22 g 06/25/2019 10/22/2024 DiscontinuedComment on above:Apply 0.5 inch with cotton swab (Q-tip) to each nostril in the morning and evening for 5 days priorto and including day of surgery.Vgpey-1-ANK-EPA-Fish Oil (FISH OIL) 1,000 mg (120 mg-180 mg) cap (5 sources) End: 68-56-4306yjvf 1 capsule by mouth once kgxmaRgscs-9-DNV-EPA-Fish Oil (FISH OIL) 1,000 mg (120 mg-180 mg) cap Take 1 g by mouth once daily. 10/22/2024 Discontinuedtake 1 capsule by mouth once obuggTmfew-4-NYB-EPA-Fish Oil (FISH OIL) 1,000 mg (120 mg-180 mg) cap Take 1 g by mouth once daily. Activetake 1 capsule by mouth once ivbevNtajk-8-JAH-EPA-Fish Oil (FISH OIL) 1,000 mg (120 mg- 180 mg) cap Take 1 g by mouth once daily. 0 ActiveComment on above:Take 1 g by mouth once daily.prasterone 50 mg oral tablet (7 sources) End: 25-78-6578osjm 1 tablet by mouth once dailyprasterone, dhea, (DHEA) 50 mg tab Take 50 mg by mouth once daily. 10/22/2024 DiscontinuedDHEA 50 50 MG as directed Orally TWICE A DAY ActiveDHEA 50 50 MG as directed Orally once a day ActiveComment on above:Take 50 mg by mouth once daily.Saw [place] 160 mg capsule (5 sources) End: 85-06-0782qlda 1 capsule by mouth three times dailySaw [place] 160 mg capsule Take 160 mg by mouth three times daily. 10/22/2024 Discontinuedtake 1 capsule by mouth three times dailySaw [place] 160 mg capsule Take 160 mg by mouth three times daily. Activetake 1 capsule by mouth three times dailySaw [place] 160 mg capsule Take 160 mg by mouth three times daily. 0 ActiveComment on above:Take 160 mg by mouth three times daily.turmeric-turmeric root extract 450-50 mg cap (5 sources) End: 93-51-6274chpj 1 capsule by mouth once dailyturmeric-turmeric root [...] once daily.Vitamin B Complex (7 sources) End: 42-20-7966cqxp 1 tablet by mouth once dailyvitamin b [...] daily.VITAMIN E ACETATE ORAL (5 sources) End: 82-39-9117cnbw 1200 mg by mouth twice dailyVITAMIN E [...] ClassificationProblemDateDocumented DateEpisodic/ChronicAllergic reactions (2 sources)Eczema; Translations: [Dermatitis, unspecified]06-27-2188Urjrjarn Cardiac dysrhythmias (1 source)Supraventricular tachycardia; Translations: [SVT (supraventricular tachycardia) (HCC)]96-66-8286AjkcmmpQfzhfgq kidney disease (11 sources)Chronic kidney disease stage 3; Translations: [Chronic kidney disease, stage 3 (moderate)]Onset: 058939-92-4534UdyvqyiQmytdfy kidney disease (9 sources)Chronic kidney disease; Translations: [Chronic kidney disease, stage 3a]Onset: 09-22-2021 Resolved: 01-98-3681Byehfbyczy and other anemia (4 sources)Anemia of renal disease; Translations: [Anemia in chronic kidney disease]82-76-2992NkplxayGstqzkztcz and other anemia (2 sources)Anemia in chronic kidney diseaseOnset: 09-22-2021 Resolved: 15-68-1454VwjgxukPijyyvmhrq and other anemia (2 sources)Iron deficiency anemia; Translations: [Iron deficiency anemia, unspecified]EpisodicDisorders of lipid metabolism (11 sources)Pure hypercholesterolemia, unspecified; Translations: [Hyperlipidemia, unspecified]Onset: 138433-81-1762SbtmxpkXkudasajb hypertension (9 sources)Essential hypertension; Translations: [Essential (primary) hypertension]Onset: 632257-36-5297XgbqvjwXltmsbgoygoevham hemorrhage (2 sources)Hematochezia; Translations: [Melena]EpisodicHeart valve disorders (2 sources)Nonrheumatic aortic (valve) stenosis; Translations: [Nonrheumatic aortic (valve) stenosis]Onset: 47-97-4054EkginqaIlfrantitsjb with complications and secondary hypertension (4 sources)Hypertensive renal disease; Translations: [Hypertensive chronic kidney disease with stage 1 throughstage 4 chronic kidney disease, or unspecified chronic kidney disease]Onset: 09-22-2021 Resolved: 75-61-3996IzrbztsLfblmyxtk neoplasm without specification of site (20 sources)Malignant neoplastic disease; Translations: [Malignant (primary) neoplasm, unspecified]Onset: 427099-94-4446XlkbfbcTkysbxgkajkfrb (20 sources)Primary osteoarthritis, right shoulder; Translations: [Localized, primary osteoarthritis of the shoulder region]Onset: 12-19-2016 Resolved: 27-14-2597IlwjnhtSrhkw aftercare (20 sources)Patient encounter status; Translations: [Aftercare following joint replacement surgery]Onset: 725000-01-6652ZpcsselTayxh connective tissue disease (1 source)Presence of left artificial shoulder joint; Translations: [Presence of left artificial shoulder joint]Onset: 19-74-7595NdkatsbFzihk connective tissue disease (5 sources)History of operative procedure on shoulder; Translations: [Presence of unspecified artificial shoulder joint]Onset: 144709-62-6572DkfwrmdQfrmj connective tissue disease (5 sources)History of left shoulder arthroplasty; Translations: [Presence of left artificial shoulder joint]Onset: 361480-90-5072YxfjyasBfxmw connective tissue disease (20 sources)Artificial knee joint present; Translations: [Presence of right artificial knee joint]Onset: 652687-47-5525SgqjdahLijjm connective tissue disease (20 sources)History of total knee arthroplasty; Translations: [Presence of left artificial knee joint]Onset: 457669-91-0630JihbfqzGtolf diseases of kidney and ureters (1 source)Hyperparathyroidism due to renal insufficiency; Translations: [Secondary hyperparathyroidism of renal origin]19-23-5854QthrbxyNpjgl nervous system disorders (4 sources)Postoperative pain ; Translations: [Other acute postprocedural pain] 59-75-8018DjsysifmXazuy nervous system disorders (20 sources)Other acute postprocedural pain; Translations: [Pain in joint, lower leg]Onset: 768013-13-0832AfruijgkNauxz non-traumatic joint disorders (3 sources)Pain in right knee; Translations: [Pain in joint, lower leg] 44-07-3454McigngraUdoxujwe codes; unclassified (1 source)Generalized aches and pains; Translations: [Pain, unspecified] 34-34-2795NauuwxhoNwcemsdclbqf (3 sources)CONTACT W/AND (SUSP) EXPOS COVID-19; Translations: [CONTACT W/AND (SUSP) EXPOS COVID-19]Onset: 20-64-5904Xyowdxxfapyv (1 source)COUGH, UNSPECIFIED; Translations: [COUGH, UNSPECIFIED]Onset: 71-65-3840Bbyapruvjcem (2 sources)Preprocedural examination dcqc87-61-8156Whbmomyadiiy (1 source)Supraventricular tachycardia, unspecified; Translations: [Supraventricular tachycardia, unspecified]Onset: 06-21-2023 Past or Other Problems Problem ClassificationProblemDateDocumented DateEpisodic/ChronicCancer of prostate (2 sources)Malignant tumor of prostate; Translations: [Malignant neoplasm of prostate]Onset: 07-05-2016 Resolved: 969988-56-4432GrbztmkCiwuqil dysrhythmias (3 sources)Bradycardia; Translations: [Bradycardia, unspecified]Onset: 916637-01-7909CvwijjfbQlxlctkp mellitus without complication (1 source)Other abnormal glucose; Translations: [OTHER ABNORMAL GLUCOSE]Onset: 22-65-2002WnieallgJasxs valve disorders (2 sources)Cardiac murmur, unspecified; Translations: [Cardiac murmur, unspecified]Onset: 55-75-8427HreyhqxbKerotgf and fatigue (1 source)Other fatigue; Translations: [OTHER FATIGUE]Onset: 29-74-6007Unkqlaqy Other aftercare (1 source)Other correction (current) drug therapy; Translations: [OTH MCC CURRENT DRUG THERAPY]Onset: 28-64-5104JxoxgfaxRakrz male genital disorders (2 sources)Induratio penis plastica; Translations: [Induration penis plastica] Onset: 07-08-2009 Resolved: 014515-23-0966GzsqkekPhylt non-traumatic joint disorders (1 source)Pain in unspecified joint; Translations: [PAIN IN UNSPECIFIED JOINT] Onset: 55-34-0979EartqfhpTkvkn non-traumatic joint disorders (5 sources)Shoulder pain; Translations: [Pain in unspecified shoulder]Onset: 591777-41-3960SvvzbrwbNbykg screening for suspected conditions (not mental disorders or infectious disease) (2 sources)Encounter for screening for malignant neoplasm of prostate; Translations: [Encounter for screening for malignant neoplasm of rectum]Onset: 22-21-0165WlndbjuiFypnp upper respiratory disease (1 source)Nasal congestion; Translations: [NASAL CONGESTION]Onset: 10-07-2022 EpisodicUnclassified (1 source)CONTACT W/AND (SUSP) EXPOS COVID-19; Translations: [CONTACT W/AND (SUSP) EXPOS COVID-19]Onset: 25-45-6493Toonsthrkzpz (1 source)Supraventricular tachycardia, unspecified; Translations: [Supraventricular tachycardia, unspecified]Onset: 10-28-2024 Results Test NameValueInterpretationReference RangeFacilityOffice Visiton 06-27-2025 Follow-up [id number] Amina Lim 1945 M Date Provider Department Center 06/27/2025 [place] CHAU Family History Problem Relation Age of Onset Other Father Lupus Father Family Status - Relation Status Age at Mother Father Level of Service:68285 [place] OFFICE/OUTPATIENT ESTABLISHED MOD MDM 30 MIN Reason for Visit and Comments: Hypertension [251372] Hyperlipidemia [182] Bradycardia [854230] SVT [Other] Follow-up [525229] - 6 months with labs and EchoNormalUniversity [facility]36on 18-06-851467Iawxoddrd echo result from 03/31/2025: MD Lucia Chun MA Inform patient that his echo showed moderate aortic valve stenosis. Repeat echo in about 6 months to follow-up on progression of this. Patient informed. Told him we could order the echo when he sees Dr. Uribe next month.[facility]36on 51-48-621617Lpzgdwcaa lab results from 10/29/2024: MD Lucia Chun MA His LDL cholesterol is mildly elevated 112. The goal to be 100 or below. Advised patient to follow low-fat diet and recheck lipids in 3 months. Spoke with patient and he will have repeat labs prior to his next apt in April 2025. Order mailed to him.NormalFort Hamilton HospitalOffice Visit on 85-70-4638Karlnf-up [id number] Amina Lim 1945 M Date Provider Department Center 10/28/2024 [facility] CHAU Family History Problem Relation Age of Onset Other Father Lupus Father Family Status - Relation Status Age at Father Level of Service:92804 [place] OFFICE/OUTPATIENT ESTABLISHED MOD MDM 30 MIN Reason for Visit and Comments: Hypertension [334717] - Had labs 2 weeks ago. Heart Murmur [124] - Denies chest pain, SOB, palpitations, and lightheadedness/syncope. SVT [Other] Hyperlipidemia [182] - He took himself off lovastatin 3-4 months ago. No lipid since Sep 2023. Denies side effects from statin.NormalFort Hamilton HospitalCNOVon 65-47-8388SVHPWwkrwl Visit (KIDFRKassie) AMINA LIM ([id number]) 1945 M Date Time Provider Department 10/22/24 10:20 AM LYNDSAY SALGADO During your visit today, we recorded the following information about you: Pulse Blood pressure Weight Height 64/minute 130/69 92.5 kg 1.791 m Lyndsay Salgado DO 10/22/2024 10:48 AM Signed Department of Kidney [facility] SERVICE DATE: 10/22/2024 SERVICE TIME: 10:27 [...] renal function. Following with cardiology at the [facility]. No longer taking NSAIDs after his bilateral [...] Take 1 tablet by mouth once daily. Fxcme-7-HYO-EPA-Fish Oil (FISH OIL) 1,000 mg (120 mg-180 mg) cap Take 1 g by mouth once daily. lovastatin (MEVACOR) 20 mg tablet Take 20 mg by mouth daily at bedtime. multivitamin (MULTIPLE VITAMINS) tablet Take 1 tablet by mouth once daily. Saw [place] 160 mg capsule Take 160 mg by [...] Nose, and Throat: Heari (more content not included)...NormalCleveland Clinic Medina HospitalPNon 10-78-2684FDECPxoavwcuo (MIDMAV) AMINA LIM ([id number]) 1945 M Date Time Provider Department 10/17/24 CASSIDY ARITA MIDALV During your visit today, we recorded the following information about you: Cassidy Arita DO 10/17/2024 2:11 PM Signed ----- Message from RHODA Han sent at 10/17/2024 1:10 PM EST ----- Regarding: Lab orders for upcoming appt w/Dr. Salgado Contact: Patient is requesting labs for upcoming appt on 10/22/24. Labs need to be faxed to [facility] @ [phone]. Call pt when done ThanksDanielle Diana, DO 10/17/2024 2:17 PM Signed Covering for Dr Salgado CKD lab work ordered Cassidy Arita DO October 17, 2024, 2:15 PM Porfirio Hamilton MA 10/17/2024 5:05 PM Addendum Orders printed and faxed to number provided below. Confirmation received. Pt notified DEVIN Angel Diana, DO [facility]1 hour ago (2:17 PM) Please fax lab orders to [facility] and let patient know that I have [...] 10/21/2024 8:21 AM Signed Fax received from [facility] lab in regards to pt PTH lab [...] [N18.30] Order(s):ALBUMIN/CREATININE RATIO, URINE [SQUACR] Order #: [id number] FUTURE PROTEIN / CREATININE RATIO [SQPRATIO] Order #: [id number] FUTURE URINALYSIS WITH MICROSCOPIC, REFLEX CULTURE [SQUACII] Order #: [id number] FUTURE RENAL FUNCTION PANEL [SQRFP] Order #: [id number] FUTURE VITAMIN D 25 HYDROXY [SQVITD] Order #: [id number] FUTURE PTH INTACT [SQPTHI] Order #: [id number] FUTURE COMPLETE BLOOD COUNT [SQCBC] Order #: [id number] FUTURE Prescriptions as of 10/21/2024 - losartan [...] 1 tablet by mouth once daily. - Cyggp-4-KRS-EPA-Fish Oil (FISH OIL) 1,000 mg (120 mg-180 mg) cap Take 1 g by mouth once daily. - lovastatin (MEVACOR) 20 mg tablet Take 20 mg by mouth daily at bedtime. - multivitamin (MULTIPLE VITAMINS) tablet Take 1 tablet by mouth once daily. - Saw [place] 160 mg capsule Take 160 mg by [...] 07/16/2019 Encounter Status:Closed by PORFIRIO HAMILTON on 10/17/24[facility] Knee - left 1 or 2 Viewson 91-25-6779Qnrvvng Result: AP and Lateral of left knee: Surgical position and alignment of prosthetic components without evidence of loosening or wear to femora, tibial or patellar components, The alignment appears to be anatomic. No evidence of accelerated or asymmetric wear to tibial tray or patella button. No evidence of fracture or dislocation. Impression: Unremarkable left total knee arthroplastyLiberty Hospital HealthcareRadiology Study observation (narrative)[facility] 80-44-8198mCFY Coag (PPP) [Time]35 [facility] HospitalComment on above:NEW REFERENCE RANGEaPTT Coag (Bld) [Time]35 [facility] MonettComment on above:NEW REFERENCE RANGE PERFORMED AT [address] [place] [address] CBC AND AUTO DIFFon 25-84-5243CINBYPHZ BASOPHIL0.1 X10E9/LNormal0.0-0.2Pro[facility] Medical CenterComment on above:Performed By: #### [id number] #### [facility] ([id number]) [address] [place] [address], [place] [address] #### CBCA, PINR, CMP #### [facility] ([id number]) [address] [place], [place] [address]HDONLBVJ NEUTROPHIL5.3 X10E9/LNormal1.5-6.6ProMemorial Hermann Southeast HospitalComment on above:Performed By: #### [id number] #### [facility] ([id number]) [address] [place] [address] #### CBCA, PINR, CMP #### [facility] ([id number]) [address] [place], [place] 61700Nmudwdgff/100 WBC (Bld)0.8 %NormalPremier Health Miami Valley Hospital South Comment on above:Performed By: #### 23514-4 #### [facility] ([id number]) [address] [place] [address] 73714 #### CBCA, PINR, CMP #### [facility] ([id number]) [address] [facility], [address] [place], [place] [address]Xbiuxhwlyae (Bld) [#/Vol]0.2 10*3/uLNormal0.0-0.4ProMemorial Hermann Southeast HospitalComment on above:Performed By: #### 62031-0 #### [facility] ([id number]) [address] [place] [address] 17875 #### CBCA, PINR, CMP #### [facility] ([id number]) [address] [facility], [address] [place], [place] [address]Itfopkfiypg/100 WBC (Bld)2.1 %NormalPremier Health Miami Valley Hospital South Comment on above:Performed By: #### 23960-4 #### [facility] ([id number]) [address] [place] [address] 99116 #### CBCA, PINR, CMP #### [facility] ([id number]) [address] [facility], [address] [place], [place] [address]Kkclsdvscwg distribution width (RBC) [Ratio]13.9 %Normal 11.5-15.0ProMemorial Hermann Southeast HospitalComment on above:Performed By: #### 17831-1 #### [facility] ([id number]) [address] [place] [address] 82186 #### CBCA, PINR, CMP #### [facility] ([id number]) [address] [facility] [address], [address] [place], [place] [address]Crqnmqfigc (Bld) [Volume fraction]39.0 %Fwwofz16-28TtbItbvnoMemorial Hermann Southeast HospitalComment on above:Performed By: #### 30461-7 #### [facility] ([id number]) [address] [place] [address] 23392 #### CBCA, PINR, CMP #### [facility] ([id number]) [address] [facility] [address], [address] [place], [place] [address]Wpfhcduhmv (Bld) [Mass/Vol]13.3 g/fJEiqgip30.0-17.0Premier Health [facility] Hospital SouthComment on above:Performed By: #### 52894-9 #### [facility] ([id number]) [address] [place] [address] 93512 #### CBCA, PINR, CMP #### [facility] ([id number]) [address] [facility], [address] [place], [place] [address]Furuaoheett (Bld) [#/Vol]1.8 10*3/uLNormal1.0-3.5PLafayette General Southwestica Santa Clara Valley Medical CenterComment on above:Performed By: #### 49785-0 #### [facility] ([id number]) [address] [place] [address] 49405 #### CBCA, PINR, CMP #### [facility] ([id number]) [address] [facility] [facility], [address] [place], [place] [address]Hctgftosirg/100 WBC (Bld)22.6 %NormalPremier Health Miami Valley Hospital South Comment on above:Performed By: #### 88856-8 #### [facility] ([id number]) [address] [place] [address] 72579 #### CBCA, PINR, CMP #### [facility] ([id number]) [address], [address] [place], [place] [address]QHV (RBC) [Entitic mass]31.5 mrOafspf24-78RazKvpntyMemorial Hermann Southeast HospitalComment on above:Performed By: #### 31898-7 #### [facility] ([id number]) [address] [place] [address] 92900 #### CBCA, PINR, CMP #### [facility] ([id number]) [address], [address] [place], [place] [address]NONO (RBC) [Mass/Vol]34.0 g/wGNevjpy40-28WwiGrrwlwMemorial Hermann Southeast HospitalComment on above:Performed By: #### 77975-0 #### [facility] ([id number]) [address] [place] [address] 00039 #### CBCA, PINR, CMP #### [facility] ([id number]) [address], [address] [place], [place] [address]HXM (RBC) [Entitic vol]93 cEUtchee47-148AucHdxnef Fremont HospitalComment on above:Performed By: #### 07642-6 #### [facility] ([id number]) [address] [place] [address] 14301 #### CBCA, PINR, CMP #### [facility] ([id number]) [address], [address] [place], [place] [address]Clzompxsu (Bld) [#/Vol]0.7 10*3/uLNormal0-0.9Premier Health [facility] Hospital SouthComment on above:Performed By: #### 88094-4 #### [facility] ([id number]) [address] [place] [address] 18159 #### CBCA, PINR, CMP #### [facility] ([id number]) [address], [address] [place], [place] [address]Uhdwcxmqn/100 WBC (Bld)8.2 %[facility] Comment on above:Performed By: #### 60499-5 #### [facility] ([id number]) [address] [place] [address] 61664 #### CBCA, PINR, CMP #### [facility] ([id number]) [address], [address] [place], [place] [address]Maqliogtkpp/100 WBC (Bld)66.3 %[facility] Comment on above:Performed By: #### 19150-9 #### [facility] ([id number]) [address] [place] [address] 96215 #### CBCA, PINR, CMP #### [facility] ([id number]) [address], [address] [place], [place] [address]Hxhziici mean volume (Bld) [Entitic vol]8.2 fLNormal7-12 [facility] Hospital SouthComment on above:Performed By: #### 49538-2 #### [facility] ([id number]) [address] [place] [address] 84663 #### CBCA, PINR, CMP #### [facility] ([id number]) [address], [address] [place], [place] [address]Fdimrdpvs (Bld) [#/Vol]227 10*3/uXIgjctt378-382BopYpxcfr Fremont HospitalComment on above:Performed By: #### 06259-1 #### [facility] ([id number]) [address] [place] [address] 65589 #### CBCA, PINR, CMP #### [facility] ([id number]) [address] [facility] [facility] [place], [place] [address]PLI COUNT4.22 X10E12/LNormal4.10-5.70[facility] Comment on above:Performed By: #### 16928-3 #### [facility] ([id number]) [address] [place] [address] 60556 #### CBCA, PINR, CMP #### [facility] ([id number]) [address] [facility] [facility], [address] [place] [address]XMI (Bld) [#/Vol]8.0 10*3/uLNormal4.0-11.0Premier Health Miami [facility] Hospital SouthComment on above:Performed By: #### 94468-9 #### [facility] ([id number]) [address] [place] [address] 31672 #### CBCA, PINR, CMP #### [facility] ([id number]) [address] [facility] [facility], [address] [place], [place] [address]OBV auto differentialon 67-72-6991Emeawqoxd (Bld) [#/Vol]0.1 10*3/uLProMedica Health SystemBasophils/100 WBC (Bld)0.8 %ProMedica Health SystemEosinophils (Bld) [#/Vol]0.2 10*3/uLProMedica Health SystemEosinophils/100 WBC (Bld)2.1 %ProMedica Health SystemErythrocyte distribution width (RBC) [Ratio]13.9 %11.5 - 15.0 %ProMedica Health SystemHematocrit (Bld) [Volume fraction]39 %39 - 49 %ProMedica Health SystemHemoglobin (Bld) [Mass/Vol]13.3 g/dL13.0 - 17.0 g/dLUC HealthLymphocytes (Bld) [#/Vol]1.8 10*3/uL UC HealthLymphocytes/100 WBC (Bld)22.6 %[facility] HospitalH (RBC) [Entitic mass]31.5 pg27 - 34 pgPGrant HospitalMCHC (RBC) [Mass/Vol]34 g/dL32 - 36 g/dLUC HealthMCV (RBC) [Entitic vol]93 fL 80 - 100 [facility] KirkwoodMonocytes (Bld) [#/Vol]0.7 10*3/uLUC HealthMonocytes/100 WBC (Bld)8.2 %UC HealthNeutrophils (Bld) [#/Vol]5.3 10*3/uLUC HealthNeutrophils/100 WBC (Bld)66.3 % UC HealthPlatelet mean volume (Bld) [Entitic vol]8.2 fL7 - 12 fL UC HealthPlatelets (Bld) [#/Vol]227 10*3/[facility] RBC (Bld) [#/Vol]4.22 10*6/[facility] HospitalWBC corrected for nucl RBC Auto (Bld) [#/Vol]8[facility] Memorial HospitalCOMPREHENSIVE METABOLIC PANELon 29-58-3667Vltfatm [Mass/Vol]4.1 g/dLNormal3.2-5.3PPremier Health Atrium Medical CenterComment on above:Performed By: #### 94081-3 #### [facility] ([id number]) [address] [place] [address], [place] [address] #### CBCA, PINR, CMP #### [facility] ([id number]) [address] [place] [address], [address] [place], [place] [address]NHQ [Catalytic activity/Vol]40 U/FPlcdoy40-715ArxDwbfbjPremier Health Miami Valley Hospital SouthComment on above:Performed By: #### 84801-2 #### [facility] ([id number]) [address] [place] [address] 49320 #### CBCA, PINR, CMP #### [facility] ([id number]) [address] [facility] [facility] [place] [address]YJC [Catalytic activity/Vol]21 U/LNormal0-40ProMemorial Hermann Southeast HospitalComment on above:Performed By: #### 58174-3 #### [facility] ([id number]) [address] [place] [address] 70391 #### CBCA, PINR, CMP #### [facility] ([id number]) [address] [facility] [facility], [address] [place], [place] [address]Ufvga gap [Moles/Vol]7 mmol/LNormal5-15ProMemorial Hermann Southeast HospitalComment on above:Performed By: #### 43623-2 #### [facility] ([id number]) [address] [place] [address] 35567 #### CBCA, PINR, CMP #### [facility] ([id number]) [address] [facility] [facility], [address] [place], [place] [address]CNR [Catalytic activity/Vol]17 U/LNormal0-41ProMemorial Hermann Southeast HospitalComment on above:Performed By: #### 00338-7 #### [facility] ([id number]) [address] [place] [address] 72410 #### CBCA, PINR, CMP #### [facility] ([id number]) [address] [facility] [place], [place] [address]Kmyvzwnze [Mass/Vol]0.4 mg/dLNormal0.3-1.2Pro[facility]ica [facility] Valley Medical CenterComment on above:Performed By: #### 12581-8 #### [facility] ([id number]) [address] [place] [address] 10930 #### CBCA, PINR, CMP #### [facility] ([id number]) [address] [facility] [facility], [address] [place] [address]Sffztdl [Mass/Vol]9.1 mg/dLNormal8.5-10.5PPremier Health Atrium Medical CenterComment on above:Performed By: #### 95976-4 #### [facility] ([id number]) [address] [place] [address] 97900 #### CBCA, PINR, CMP #### [facility] ([id number]) [address] [facility] [facility] [place] [address]Nvzzkoie [Moles/Vol]100 mmol/CYapbml61-089QqhEtirzzMemorial Hermann Southeast HospitalComment on above:Performed By: #### 44006-1 #### [facility] ([id number]) [address] [place] [address] 08744 #### CBCA, PINR, CMP #### [facility] ([id number]) [address] [facility], [address] [place] [address]MM3 [Moles/Vol]27 mmol/CJkslai15-10QrmBomzkzPremier Health Atrium Medical Center Comment on above:Performed By: #### 62673-7 #### [facility] ([id number]) [address] [place] [address] 07352 #### CBCA, PINR, CMP #### [facility] ([id number]) [address] [facility] [facility] [place], [place] [address]Gjbaprufak [Mass/Vol]1.21 mg/dLNormal0.60-1.30ProMemorial Hermann Southeast HospitalComment on above:Result Comment: METHOD TRACEABLE TO IDMS STANDARD Performed By: #### 12543-1 #### [facility] ([id number]) [address] [place] [address] 83113 #### CBCA, PINR, CMP #### [facility] ([id number]) [address], [address] [place], [place] [address]DIZ/1.73 sq M.predicted among non-blacks MDRD (S/P/Bld) [Vol rate/Area]61 mL/min/{1.73_m2}Normal>59ProMemorial Hermann Southeast HospitalComment on above:Result Comment: Reported eGFR is based on the CKD-EPI 2020 equation that does not use a race coefficient.Performed By: #### 49131-6 #### [facility] ([id number]) [address] [place] [address] 68184 #### KRYS PINR, CMP #### [facility] ([id number]) [address], [address] [place], [place] [address]Jfeymcs [Mass/Vol]87 mg/dRHjnilo40-72CshEgbqjeMemorial Hermann Southeast Hospital Comment on above:Performed By: #### 89738-6 #### [facility] ([id number]) [address] [place] [address] 02548 #### KRYS PINR, CMP #### [facility] ([id number]) [address], [address] [place], [place] [address]Atphfupkp [Moles/Vol]4.2 mmol/LNormal3.5-5.0ProMemorial Hermann Southeast HospitalComment on above:Performed By: #### 27194-9 #### [facility] ([id number]) [address] [place] [address] 44890 #### KRYS PINR, CMP #### [facility] ([id number]) [address], [address] [place], [place] [address]Mrzvfec [Mass/Vol]6.6 g/dLNormal6.0-8.0ProMemorial Hermann Southeast HospitalComment on above:Performed By: #### 61131-1 #### [facility] ([id number]) [address] [place] [address], [place] [address] #### CBCA, PINR, CMP #### [facility] ([id number]) [address] [facility], [address] [place], [place] [address]Fcystg [Moles/Vol]134 mmol/CEzsxld642-640AaiOfakua Fremont HospitalComment on above:Performed By: #### 07340-6 #### [facility] ([id number]) [address] [place] [address] 70335 #### CBCA, PINR, CMP #### [facility] ([id number]) [address] [facility], [address] [place], [place] [address]Hliz nitrogen [Mass/Vol]29 mg/dLHigh5-27ProMemorial Hermann Southeast HospitalComment on above:Performed By: #### 47734-4 #### [facility] ([id number]) [address] [place] [address] 79098 #### CBCA, PINR, CMP #### [facility] ([id number]) [address] [facility], [address] [place], [place] [address]Tblokcoydccak metabolic panelon 96-76-3398Eycpxay [Mass/Vol]4.1 g/dL3.2 - 5.3 g/dLProMedica Health SystemALP [Catalytic activity/Vol]40 U/L39 - 130 U/LProMedica Health SystemALT No additional P-5'-P [Catalytic activity/Vol] 21 U/L0 - 40 U/LProMedica Health SystemAnion gap [Moles/Vol]7 mmol/L5 - 15 mmol/LProMedica Health SystemAST [Catalytic activity/Vol]17 U/L0 - 41 U/L [facility]Medica Health SystemBilirubin [Mass/Vol]0.4 mg/dL0.3 - 1.2 mg/dLProMedica Health SystemCalcium [Mass/Vol]9.1 mg/dL8.5 - 10.5 mg/dLProMedica Health System Chloride [Moles/Vol]100 mmol/L98 - 109 mmol/[facility] SystemCO2 [Moles/Vol]27 mmol/L22 - 32 mmol/[facility] SystemCreatinine [Mass/Vol] 1.21 mg/dL0.60 - 1.30 mg/dLUC HealthComment on above:METHOD TRACEABLE TO IDID STANDARDeGFR (CKD-EPI)non-race [id number]- Critical access hospitalComment on above: Reported eGFR is based on the CKD-EPI 2020 equation that does not use a race coefficient. Glucose [Mass/Vol]87 mg/dL65 - 99 mg/dLUC HealthInterpretation and review of laboratory resultsAbnormalACMC Healthcare System Glen[facility]igh SystemPotassium [Moles/Vol]4.2 mmol/L3.5 - 5.0 mmol/[facility] Health SystemProtein [Mass/Vol] 6.6 g/dL6.0 - 8.0 g/dLACMC Healthcare System Glenbeigh SystemSodium [Moles/Vol]134 mmol/L134 - 146 mmol/[facility] SystemUrea nitrogen [Mass/Vol]29 mg/dLHigh5 - 27 mg/dLWinnebago Mental Health Institute SystemPROTIME AND INRon 08-13-2024 INR Coag (PPP) [Relative time]1.0 {INR}Normal0.8-1.1PPremier Health Atrium Medical Center Comment on above:Performed By: #### 68537-5 #### [facility] ([id number]) [address] [place] [address] 89229 #### KRYS PINR, CMP #### [facility] ([id number]) [address] [facility], [address] [place], [place] [address]ZM Coag (PPP) [Time]11.1 sNormal9.8-13.2PPremier Health Atrium Medical CenterComment on above:Performed By: #### 31098-7 #### [facility] ([id number]) [address] [place] [address] 37212 #### CBCA, PINR, CMP #### [facility] ([id number]) [address] [facility] [facility] [place], [place] [address]Gsuigxh & INRon 68-87-1498SYA Coag (PPP) [Relative time]1 {INR} [facility] SystemPT Coag (PPP) [Time]11.1 [facility] SystemURINALYSISon 22-74-3989Dbdssrcrn Ql (U)NegativeNormalNEG [facility] Hospital SouthComment on above:Performed By: #### UA #### [facility] ([id number]) [address] [facility] [facility], [address] [place], [place] [address]EIRQH/HGBNegativeNormalNEGPremier Health Miami Valley Hospital SouthComment on above:Performed By: #### UA #### [facility] ([id number]) [facility] [facility], [address] [place], [place] [address]Fsqgh (U)YELLOWNormalYELLOWPremier Health Miami Valley Hospital SouthComment on above:Performed By: #### UA #### [facility] ([id number]) [facility] [facility], [address] [place], [place] [address]Hhzwgoh Ql (U)NegativeNormalNEGPremier Health Miami Valley Hospital SouthComment on above:Performed By: #### UA #### [facility] ([id number]) [facility] [facility], [address] [place], [place] [address]Foirhds Ql (U)NegativeNormalNEGPremier Health Miami Valley Hospital SouthComment on above:Performed By: #### UA #### [facility] ([id number]) [address] [facility] [facility] [place], [place] [address]Hawhroboo esterase Test strip Ql (U)NegativeNormalNEGPremier Health Miami Valley Hospital SouthComcorewell health [facility] on above:Performed By: #### UA #### [facility] ([id number]) [address] [facility] [facility] [place], [place] [address]YAZWCHTFBXBSYUmmpwawaFNANLiuQtrant Fremont HospitalComcorewell health [facility] on above:Performed By: #### UA #### [facility] ([id number]) [address], [address] [place], [place] [address]Fyrjbev Ql (U)NegativeNormalNEGPremier Health Miami Valley Hospital SouthComment on above:Performed By: #### UA #### [facility] ([id number]) [address] [facility], [address] [place], [place] [address]mU (U)6.0 [pH]Normal5.0-8.5PPremier Health Atrium Medical CenterComment on above:Performed By: #### UA #### [facility] ([id number]) [address] [place] [address], [address] [place], [place] [address]Mzqvvbw Ql (U)TraceAbnormalNEGPremier Health Miami Valley Hospital SouthComment on above:Performed By: #### UA #### [facility] ([id number]) [address] [place] [address], [address] [place], [place] [address]E.B.CELLS<3Ldbsbr8-5MvhJqrstlPremier Health Atrium Medical CenterComment on above: Performed By: #### UA #### [facility] ([id number]) [address] [place] [address], [address] [place], [place] [address]Sfdzgnqr gravity (U) [Rel density]1.598Cikpqk3.003-1.035 [facility] Medical CenterComment on above:Performed By: #### UA #### [facility] ([id number]) [address] [place] [address], [address] [place], [place] [address]EJMMRTZDKRHWBQVzbfznZJQDEGjjTcbrei Fremont HospitalComment on above:Performed By: #### UA #### [facility] ([id number]) [address] [place] [address], [address] [place], [place] [address]Taqxdxfjveqh (U) [Mass/Vol]mg/dLNormal<1.1PPremier Health Atrium Medical CenterComment on above:Performed By: #### UA #### [facility] ([id number]) [address] [place] [address], [address] [place], [place] [address]R.B.CELLS1 /hpfNormal0-5PPremier Health Atrium Medical CenterComment on above:Performed By: #### UA #### [facility] ([id number]) [address], [address] [place], [place] [address]LVWED CULTUREon 84-76-6517Mhzexequ identified Cx Nom (U)CULTURE RESULTS <10,000 ORGANISMS/ML NORMAL URO GENITAL FLORAAvita Health System [facility] Hospital Comment on above:Performed By: #### 630-4 #### [facility] ([id number]) [address], [address] [place], [place] [address]hMTR Coag (Bld) [Time]on 42-01-3033FWCXHCA Midwest DivisionaPTT Coag (PPP) [Time]on 17-79-1166YxePujqnfGrant HospitalaPTT Coag (Bld) [Time]35 sNormal 26-37Prem[facility] Hospital SouthComment on above:Result Comment: NEW REFERENCE RANGEPerformed By: #### 54804-7 #### [facility] ([id number]) [address] [place] [address], [place] [address] #### CBCA, PINR, CMP #### [facility] ([id number]) [address], [address] [place], [place] [address]Ggfaoshhf partial thromboplastin time (aPTT) in platelet poor plasma by coagulation aOrdered By: Queta Tilley on 43-81-5600zPWB Coag (PPP) [Time]33.7 s25.1-36.5FTrinity Health System East CampusComment on above:A hematocrit value greater than 55% may lead to inaccurate results in coagulation testing. Patientshaving hematocrit values >55% require a special collection tube for coagulation studies. Please contact the laboratory at [phone] for redraw instructions.Alanine aminotransferase [Enzymatic activity/volume] in Serum or PlasmaOrdered By: Queta Tilley on 69-34-1149QMY [Catalytic activity/Vol]22 U/LNormal7-52Trinity Health SystemComment on above: Performed By: #### CMP #### [place] [address] USAAlbumin [Mass/volume] in Serum or Plasma by Bromocresol green (BCG) dye binding methoOrdered By: Queta Tilley on 58-94-5430Bsvvqss BCG dye [Mass/Vol]4.6 g/dL3.5-5.7FTrinity Health System East CampusAlkaline phosphatase [Enzymatic activity/volume] in Serum or PlasmaOrdered By: Queta Tilley on 11-06-1837INF [Catalytic activity/Vol]37 U/VEptroc34-570CkqhvdqefTrinity Health SystemComment on above:Result Comment: PERFORMED BY: [place] [address] PATHOLOGIST [employer]KE [employer]PA[employer] AIR HUGO AVALOS M.D.Performed By: #### CMP #### [place] [address] USAAspartate aminotransferase [Enzymatic activity/volume] in Serum or PlasmaOrdered By: Queta Tilley on 89-47-9831MAZ [Catalytic activity/Vol]16 U/AZqrlge94-13UdhdkpfdtTrinity Health SystemComment on above: Performed By: #### CMP #### [place] [address] USAAutomated basophil %Ordered By: Queta Tilley on 22-89-6019Txxwsvtzi/100 WBC (Bld)0.6 %Normal.[facility] Comment on above:Performed By: #### CBC #### [place] [address] USAAutomated basophil countOrdered By: Queta Tilley on 59-04-5591Hmzusjeyl (Bld) [#/Vol]0.1 10*3/uLNormal0.0-0.2FTrinity Health System East CampusComment on above:Result Comment: PERFORMED BY: [place] [address] PATHOLOGIST BRAKE REPAIR[employer] HUGO AVALOS M.D.Performed By: #### CBC #### [place] [address] USAAutomated blood monocyte countOrdered By: Queta Tilley on 47-72-1253Mbmehnpkg (Bld) [#/Vol]0.8 10*3/uLNormal0.0-0.8Trinity Health SystemComment on above:Performed By: #### CBC #### [facility] [address] [place] [address] USAAutomated eosinophil %Ordered By: Queta Tilley on 35-39-6412Qfbjeyzifal/100 WBC (Bld)0.8 %Normal.[facility] Comment on above:Performed By: #### CBC #### [place] [address] USAAutomated eosinophil countOrdered By: Queta Tilley on 94-49-4179Idehpyvxlfp (Bld) [#/Vol]0.1 10*3/uLNormal0.0-0.45Trinity Health SystemComment on above:Performed By: #### CBC #### [place] [address] USAAutomated monocyte %Ordered By: Queta Tilley on 50-13-2807Zoepdyule/100 WBC (Bld)8.0 %Normal.[facility] Comment on above:Performed By: #### CBC #### [place] [address] USAAutomated neutrophil %Ordered By: Queta Tilley on 82-08-1683Jdapogdfbvj/100 WBC (Bld)64.7 %Normal.[facility] Health SystemComment on above:Performed By: #### CBC #### [place] [address] USABilirubin Test strip Ql (U)Ordered By: Queta Tilley on 31-94-0608Afbahjzci Ql (U)NegativeNegativeTrinity Health System Bilirubin.total [Mass/volume] in Serum or PlasmaOrdered By: Queta Tilley on 16-92-1437Ofevzamyg [Mass/Vol]0.5 mg/dLNormal0.3-1.0Trinity Health SystemComment on above:Performed By: #### CMP #### [place] [address] USACalcium [Mass/volume] in Serum or PlasmaOrdered By: [place]et[place] Tilley on 02-90-0024Dacwirr [Mass/Vol]9.7 mg/dLNormal8.6-10.3FTrinity Health System East CampusComment on above:Performed By: #### CMP #### [place] [address] USACarbon dioxide, total [Moles/volume] in Serum or Plasma Ordered By: Queta Tilley on 10-67-1636UE6 [Moles/Vol]27.0 mmol/SZdvslh03.0-31.0 Trinity Health SystemComment on above:Performed By: #### CMP #### [place] [address] USAChloride [Moles/volume] in Serum or PlasmaOrdered By: Queta Tilley on 98-46-5015Aokvnwib [Moles/Vol]97 mmol/RFso13-966MdctqeegnTrinity Health SystemComment on above:Performed By: #### CMP #### [place] [address] USAColor of Urine by AutoOrdered By: Queta Tilley on 53-44-3142Whywc (U)YellowNormalYellowTrinity Health SystemComment on above:Order Comment: Name Collection Type:: Clean-Voided MidstreamPerformed By: #### UA #### [place] [address] USAComplete Blood Count Auto Diffon 96-18-3213Okol Corpuscular HGB Conc33.6 g/eRJfccbl05.5-35.6The [facility] Physician GroupComment on above:Performed By: #### CBC #### [place] [address] USANRBC%0.4 /100{WBC}Normal0-0.5The [facility] Comment on above:Performed By: #### CBC #### [place] [address] USAComprehensive Metabolic Panelon 58-04-0736Wxxspme [Mass/Vol]4.6 g/dLNormal3.5-5.7The [facility] Physician GroupComment on above: Performed By: #### CMP #### [facility] [address] [id number] USAGFR/1.73 sq M.predicted MDRD (S/P/Bld) [Vol rate/Area] mL/min/{1.73_m2}NormalThe [facility] Physician GroupComment on above:Performed By: #### CMP #### [facility] [address] [place] [address] USACreatinine [Mass/volume] in Serum or PlasmaOrdered By: Queta Tilley on 78-75-0708Eovvqybsmj [Mass/Vol]1.19 mg/dLNormal0.70-1.30 Trinity Health SystemComment on above:Performed By: #### CMP #### [place] [id number] USAECG 12 lead ECGon 22-55-9336YUY 12 lead [facility]SUBURB[facility] [place] [address] [place] [address] Electrocardiograph Report Signed Patient: Amina Lim MR#: [id number] 4 : 1945 Acct:[id number] Age/Sex: 78 / M ADM Date: 03/18/24 Loc: Room: Type: [facility] Attending Dr: Queta Tilley PA-C Ordering Provider: [...] Signed By Nitin Hammonds MD 0 03/18/24 1508[facility] Physician GroupErythrocyte distribution width [Ratio] by Automated countOrdered By: Queta Tilley on 99-99-6919Wwqbuhgblke distribution width (RBC) [Ratio]14.1 %Jnvzeg60.0-14.8Trinity Health SystemComment on above:Performed By: #### CBC #### [facility] [address] [id number] USAErythrocytes [#/volume] in Blood by Automated countOrdered By: Queta Tilley on 90-89-3195VHN (Bld) [#/Vol]4.42 10*6/uLNormal3.90-5.60 Trinity Health SystemComment on above:Performed By: #### CBC #### [place] [id number] USAGlucose [Mass/volume] in Serum or PlasmaOrdered By: Queta Tilley on 77-26-9490Ecwojjh [Mass/Vol]93 mg/lRKoobkd47-361OnqvkiarkTrinity Health SystemComment on above:ADA recommended reference rangeRandom Glucose Reference [...] recommended reference rangePerformed By: #### CMP #### [place] [id number] USAGlucose [Mass/volume] in Urine by Test stripOrdered By: Queta Tilley on 15-95-5728Hzckspw Test strip (U) [Mass/Vol]Normal mg/dLNoal Trinity Health SystemHematocrit [Volume Fraction] of Blood by Automated countOrdered By: Queta Tilley on 90-94-0365Esgcnhtpsu (Bld) [Volume fraction]41.0 %Eircyy71.8-50.0Trinity Health SystemComment on above: Performed By: #### CBC #### [facility] [address] [place] [address] USAHemoglobin Test strip Ql (U)Ordered By: Queta Tilley on 27-47-2841Hilwmlkfkb Ql (U)NegativeNegativeTrinity Health System Hemoglobin [Mass/volume] in BloodOrdered By: Queta Tilley on 03-18-2024 Hemoglobin (Bld) [Mass/Vol]13.8 g/kIJnbwft59.0-17.0Trinity Health SystemComment on above:Performed By: #### CBC #### [facility] [address] [place] [address] USAINR in Platelet poor plasma by Coagulation assayOrdered By: Queta Tilley on 70-58-0461FUE Coag (PPP) [Relative time]0.9 {INR}Normal Trinity Health SystemComment on above:INR Therapeutic Range A) Pre- and [...] - 4.5Performed By: #### PT, PTT #### [facility] [address] [place] [address] USAKetones [Presence] in Urine by Test stripOrdered By: Queta Tilley on 07-95-3244Kaxporb Ql (U)NegativeNormalNegativeTrinity Health SystemComment on above:Order Comment: Name Collection Type:: Clean-Voided MidstreamPerformed By: #### UA #### [facility] [address] [place] [address] USALeukocyte esterase [Presence] in Urine by Test strip Ordered By: Queta Tilley on 29-86-1812Wjmfoufic esterase Test strip Ql (U) NegativeNormalNegativeTrinity Health SystemComment on above:Order Comment: Name Collection Type:: Clean-Voided MidstreamPerformed By: #### UA #### [place] [address] USALeukocytes [#/volume] corrected for nucleated erythrocytes in Blood by Automated counOrdered By: Queta Tilley on 81-26-0368NCS corrected for nucl RBC Auto (Bld) [#/Vol]9.4 10*3/uL4.1-10.5FTrinity Health System East CampusLeukocytes [#/volume] in Blood by Automated countOrdered By: Queta Tilley on 05-14-8810JEI (Bld) [#/Vol]9.4 10*3/uLNormal4.1-10.5FTrinity Health System East CampusComment on above:Performed By: #### CBC #### [place] [address] USALymphocytes [#/volume] in Blood by Automated countOrdered By: Queta Tilley on 56-89-1124Pxzyrycpspq (Bld) [#/Vol]2.4 10*3/uLNormal 1.00-4.8Trinity Health SystemComment on above:Performed By: #### CBC #### [place] [address] USALymphocytes/100 leukocytes in Blood by Automated count Ordered By: Queta Tilley on 79-62-3682Lgbbhjjlppc/100 WBC (Bld)25.9 %Normal. Trinity Health SystemComment on above:Performed By: #### CBC #### [place] [address] USAMCH [Entitic mass] by Automated countOrdered By: Queta Tilley on 83-72-2320LTO (RBC) [Entitic mass]31.2 ogLokdgm04.5-35.2FTrinity Health System East CampusComment on above:Performed By: #### CBC #### [facility] [address] [id number] [facility] Auto (RBC) [Mass/Vol]Ordered By: Queta Tilley on 74-99-5910OXWL (RBC) [Mass/Vol]33.6 g/dL32.5-35.6FTrinity Health System East CampusMCV [Entitic volume] by Automated countOrdered By: Queta Tilley on 06-79-6893VBV (RBC) [Entitic vol]92.9 cKNrekly11.5-101Trinity Health SystemComment on above:Performed By: #### CBC #### [facility] [address] [place] [address] USANeutrophils [#/volume] in Blood by Automated countOrdered By: Queta Tilley on 90-34-3994Wifkqeijqak (Bld) [#/Vol]6.1 10*3/uLNormal1.8-7.7 Trinity Health SystemComment on above:Performed By: #### CBC #### [facility] [address] [place] [address] USANitrite Test strip Ql (U)Ordered By: Queta Tilley on 18-83-2759Mqvmxuj Ql (U)NegativeNegativeTrinity Health SystemNo Panel InformationOrdered By: Queta Tilley on 95-41-1040Vcqdlmuxt GFR (CKD-EPI)> 60.0 mL/MinTrinity Health SystemPharmacy Creatinine Clearance (Chem N/AFTrinity Health System East CampusNucleated erythrocytes [Presence] in Blood by Automated countOrdered By: Queta Tilley on 53-49-1515Muwnnnjnk RBC Auto Ql (Bld)0.4 /100{WBC}0-0.5FTrinity Health System East CampusPartial Thromboplastin Timeon 75-96-7329tAKY Coag (Bld) [Time]33.7 yAcwxxm56.1-36.5The [facility] Physician GroupComment on above:Result Comment: A hematocrit value greater than 55% may lead to inaccurate results in coagulation testing. Patients having hematocrit values >55% require a special collection tube for coagulation studies. Please contact the laboratory at [phone] for redraw instructions. PERFORMED BY: [place] [address] PATHOLOGIST BRAKE REPAIRER AIR HUGO AVALOS M.D.Performed By: #### PT, PTT #### [place] [address] USAPlatelet mean volume [Entitic volume] in Blood by Automated countOrdered By: Queta Tilley on 91-64-5541Rnapbxqc mean volume (Bld) [Entitic vol]7.7 fLNormal6.6-10.1FTrinity Health System East CampusComment on above:Performed By: #### CBC #### [place] [address] USAPlatelets [#/volume] in Blood by Automated countOrdered By: Queta Tilley on 41-94-5539Nucsczkhx (Bld) [#/Vol]220 10*3/fQLwnrbt284-923 Trinity Health SystemComment on above:Performed By: #### CBC #### [place] [address] USAPotassium [Moles/volume] in Serum or PlasmaOrdered By: Queta Tilley on 03-06-1613Tdyaecmty [Moles/Vol]4.8 mmol/LNormal3.5-5.1FTrinity Health System East CampusComment on above:Performed By: #### CMP #### [place] [address] USAProtein Test strip (U) [Mass/Vol]Ordered By: Queta Tilley on 88-43-8059Rcqvdpf (U) [Mass/Vol]NegativeNegativeTrinity Health SystemProtein [Mass/volume] in Serum or PlasmaOrdered By: Queta Tilley on 83-76-1947Rbzhixe [Mass/Vol]6.9 g/dLNormal6.4-8.9Trinity Health SystemComment on above:Performed By: #### CMP #### [place] [address] USAProthrombin time (PT)Ordered By: Queta Tilley on 74-37-3914OJ Coag (PPP) [Time]11.0 sNormal9.0-12.9Trinity Health SystemComment on above:A hematocrit value greater than 55% may lead to inaccurate results in coagulation testing. Patientshaving hematocrit values >55% require a special collection tube for coagulation studies. Please contact the laboratory at [phone] for redraw instructions.Result Comment: A hematocrit value greater than 55% may lead to inaccurate results in coagulation testing. Patients having hematocrit values >55% require a special collection tube for coagulation studies. Please contact the laboratory at [phone] for redraw instructions.Performed By: #### PT, PTT #### [place] [address] USASerum globulin measurement by calculation (mass/volume) Ordered By: Queta Tilley on 48-65-5685Fpjnbsvd (S) [Mass/Vol]2.3 g/dLNormal Trinity Health SystemComment on above:Performed By: #### CMP #### [place] [address] USASerum or plasma albumin/globulin mass ratioOrdered By: Queta Tilley on 03-76-4062Egepbvg/Globulin [Mass ratio]2.0 {ratio}Normal Trinity Health SystemComment on above:Performed By: #### CMP #### [place] [address] USASerum or plasma anion gap determinationOrdered By: Queta Tilley on 97-65-6953Lizka gap [Moles/Vol]11.8 mmol/LNormal6.0-15.0Trinity Health SystemComment on above:Performed By: #### CMP #### [place] [address] USASodium [Moles/volume] in Serum or PlasmaOrdered By: Queta Tilley on 59-48-7401Bmetwc [Moles/Vol]131 mmol/OTyy489-723UdvdfcohwTrinity Health SystemComment on above:Performed By: #### CMP #### [place] [address] USASpecific gravity Test strip (U) [Rel density]Ordered By: Queta Tilley on 99-56-7653Nfwphfvm gravity (U) [Rel density]1.0221.001-1.030 Trinity Health SystemUrea nitrogen [Mass/volume] in Serum or Plasma Ordered By: Queta Tilley on 40-66-4501Gyxw nitrogen [Mass/Vol]26 mg/dLHigh7-25 [facility] Health SystemComment on above:Performed By: #### CMP #### [place] [address] USAUrinalysison 86-81-0178Fabbknlhg,UrineNegativeNormal NegativeThe [facility] Physician GroupComment on above:Order Comment: Name Collection Type:: Clean-Voided MidstreamPerformed By: #### UA #### [place] [address] USAGlucose Ql (U)NormalNormalNormalThe [facility] Physician GroupComment on above:Order Comment: Name Collection Type:: Clean-Voided MidstreamPerformed By: #### UA #### [place] [address] USANitrite,UrineNegativeNormalNegativeThe [facility] Physician GroupComment on above:Order Comment: Name Collection Type:: Clean-Voided MidstreamPerformed By: #### UA #### [place] [address] USAOccult Blood,UrineNegativeNormalNegativeThe [facility] Physician GroupComment on above:Order Comment: Name Collection Type:: Clean- Voided MidstreamResult Comment: PERFORMED BY: [place] [address] PATHOLOGIST BRAKE REPAIRER AIR HUGO AVALOS M.D.Performed By: #### UA #### [place] [address] USAProtein,UrineNegativeNormalNegativeThe [facility] Physician GroupComment on above:Order Comment: Name Collection Type:: Clean-Voided MidstreamPerformed By: #### UA #### [place] [address] USASpecificy [place],Urine1.089Cojfdf7.001-1.030[facility] Physician GroupComment on above:Order Comment: Name Collection Type:: Clean- Voided MidstreamPerformed By: #### UA #### [place] [address] USAUrobilinogen,UrineNormalNormalNormalThe [facility] Physician [facility] HospitalComment on above:Order Comment: Name Collection Type:: Clean- Voided MidstreamPerformed By: #### UA #### [place] [address] USAUrine Cultureon 99-55-0357Fteoiozt identified Cx Nom (U)No Growth 2 Days PERFORMED BY: [place] [address] PATHOLOGIST BRAKE REPAIRER AIR HUGO AVALOS M.D.NormalOrlando Health [facility] Physician [facility] HospitalComment on above:Performed By: #### CUU #### [place] [address] USAUrine appearanceOrdered By: Queta Tilley on 03-18-2024 Appearance (U)ClearNoalClearTrinity Health SystemComment on above: Order Comment: Name Collection Type:: Clean-Voided MidstreamPerformed By: #### UA #### [place] [address] USAUrobilinogen Test strip (U) [Mass/Vol]Ordered By: Queta Tilley on 75-10-1735Nqxokattiaya (U) [Mass/Vol]Normal mg/dLNoMetroHealth Cleveland Heights Medical CenterXR bonelength lower extremityon 09-81-4012VH [facility] extremitySUBURBAN [facility] Main [place] [address] [place] [address] XRay Report Signed Patient: Amina Lim MR#: [id number] 4 : 1945 Acct:[id number] Age/Sex: 78 / M ADM Date: 03/18/24 Loc: Room: Type: [facility] Attending Dr: Queta Tilley PA-C Copies to: [...] Kelly Banegas M.D.03/18/2024 4:55 PM Dictation Location: [place] [address] Transcribed By: [facility] 03/18/241654 Dictated By: Kelly Banegas II, MD 03/18/241653 Signed By: 03/18/241654[facility] Physician GrouppH of Urine by Test stripOrdered By: Queta Tilley on 79-25-6700nI (U)5.5 [pH]Normal5.0-9.0Trinity Health SystemComment on above:Order Comment: Name Collection Type:: Clean- Voided MidstreamPerformed By: #### UA #### [facility] [address] [place] [address] USAXR KNEE DUSTIN 3 Von 86-77-6924JA KNEE DUSTIN 3 VEXAM: XR KNEE DUSTIN 3 V HISTORY: Osteoarthritis COMPARISON: None. TECHNIQUE: 3 views FINDINGS: There is no acute fracture or dislocation. There are mild degenerative changes. The soft tissues are unremarkable. IMPRESSION: Mild degenerative changes as above. Electronically authenticated by: KELLY LARSON Date: 2023-03-15 12:38NoSt. Mary's Medical CenterCovid-19 PCR (CVDTBH)on 02-70-9280VADM-CoV-2 (COVID-19) RNA DHARA+probe Ql (Unsp spec)Not detectedNormalNOT DETECTEDVan [facility]ert [facility] Comment on above:Result Comment: When diagnostic [...] for this test is supported by the [place] of Health and Human Service's declaration that [...] no longer be used).Performed By: #### CVDTBH ####[facility] [address] [address]Dr. Xena Lucas A AND B AGon 54-07-7700KPEBTXRVZVLXV BELOWFairfield Medical Center on above:Result Comment: Negative for Flu A protein angiten. Infection due to Flu A cannot be ruled out. FluA angiten in the sample may be below the detection limit of the test.Performed By: #### INFLUAB #### [facility] [address] [place] [address] Dr. Xena PickardINFLUBNEGHSOLGA [place] on above: Result Comment: Negative for Flu B protein antigen. Infection due to Flu B cannot be ruled out. FluB antigen in the sample may be below the detection limit of the test.Performed By: #### INFLUAB #### [facility] [address] [place] [address] Dr. Xena Paniagua AGNegativeNormalNEGATIVE SEE COMMENTThe [facility] on above:Performed By: #### INFLUAB #### [facility] [address] [place] [address] Dr. Xena Allen AGNegativeNormalNEGATIVE SEE COMMENTThe Lizette HospitalComment on above:Performed By: #### INFLUAB #### [facility] [address] [place] [address] Dr. Xena PickardINTERNAL CONTROLSWithin Normal LimitsNormalWithin Normal Limits The Kettering HealthComment on above:Performed By: #### INFLUAB #### [facility] [address] [place] [address] Dr. Xena PickardINSULINon 54-75-4233Krkfkrl74.1 uIU/mLNormal2.6-24.9The [facility] HealthComment on above:Performed By: #### INSULIN ####[facility] [address] [address]Dr. Xena PickardPTH INTACTon 38-48-6188ETG, Suweja83 pg/mLCritically rxg71-05Vad [facility] on above:Performed By: #### PTHINT #### [facility] [address] [place] [address] Dr. Xena PickardCBC AUTO DIFFon 26-69-5774TCEH #0.0 103/ulNormal0.0-0.1The [facility]tering HealthComment on above:Performed By: #### CBC #### [facility] [address] [place] [address] Dr. Xena PickardBasophils/100 WBC (Bld)0.6 %Normal0.2-2.0[facility] Comment on above:Performed By: #### CBC #### [facility] [address] [place] [address] Dr. Xena Burgess #0.2 103/ulNormal0.0-0.7The [facility] HealthComcorewell health [facility] on above: Performed By: #### CBC #### [facility] [address] [place] [address] Dr. Xena Lyonosinophils/100 WBC (Bld)2.5 %Normal0.9-7.0The [facility] Comment on above:Performed By: #### CBC #### [facility] [address] [place] [address] Dr. Xena Lyonrythrocyte distribution width (RBC) [Ratio]13.5 %Jhqolr65.0-15.0 The [facility]tering HealthComment on above:Performed By: #### CBC #### [facility] [address] [place] [address] Dr. Xena PickardHematocrit (Bld) [Volume fraction]38.3 %Critically low42.0-54.0 The [facility]tering HealthComment on above:Performed By: #### CBC #### [facility] [address] [place] [address] Dr. Xena PickardHemoglobin (Bld) [Mass/Vol]13.0 g/dLCritically low14.0-18.0The [facility] HealthComment on above:Performed By: #### CBC #### [facility] [address] [place] [address] Dr. Xena Barakat #0.03 10e3/ulNormal0.00-0.03The [facility] HealthComment on above:Performed By: #### CBC #### [facility] [address] [place] [address] Dr. Xena Barakat %0.4 %Normal0.0-0.5The [facility]tering HealthComment on above: Performed By: #### CBC #### [facility] [address] [place] [address] Dr. Xena Singer #2.2 103/ulNormal1.2-3.8The [facility] HealthComment on above:Performed By: #### CBC #### [facility] [address] [place] [address] Dr. Xena Huffmphocytes/100 WBC (Bld)31.5 %Ituakl91.5-60.0The [facility] HealthComment on above:Performed By: #### CBC #### [facility] [address] [place] [address] Dr. Xena WhiteheadUAL DIFF REQNONormalThe [facility] HealthComment on above: Performed By: #### CBC #### [facility] [address] [place] [address] Dr. Xena Parra (RBC) [Entitic mass]30.5 rdNsfywy39.9-34.0The [facility] HealthComment on above:Performed By: #### CBC #### [facility] [address] [place] [address] Dr. Xena Vazquez (RBC) [Mass/Vol]33.9 g/uKUrrgto94.9-35.2The [facility] HealthComment on above:Performed By: #### CBC #### [facility] [address] [place] [address] Dr. Xena VazquezV (RBC) [Entitic vol]89.9 eEGbrluz69.0-94.0The [facility]tering HealthComment on above:Performed By: #### CBC #### [facility] [address] [place] [address] Dr. Xena Uribe #0.6 103/ulNormal0.3-0.8The [facility]tering HealthComment on above:Performed By: #### CBC #### [facility] [address] [place] [address] Dr. Xena Polancoocytes/100 WBC (Bld)8.2 %Normal1.7-12.0The [facility] Comment on above:Performed By: #### CBC #### [facility] [address] [place] [address] Dr. Xena Mariee #4.0 103/ulNormal1.4-6.5The [facility] HealthComment on above:Performed By: #### CBC #### [facility] [address] [place] [address] Dr. Xena Manningutrophils/100 WBC (Bld)56.8 %Pmaohv95.0-75.0The [facility] HealthComment on above:Performed By: #### CBC #### [facility] [address] [place] [address] Dr. Xena Artlet mean volume (Bld) [Entitic vol]10.2 fLNormal9.5-13.5The [facility] HealthComment on above:Performed By: #### CBC #### [facility] [address] [address] [address] Xena PickardPLT185 103/eeCqaneh528-975Igi [facility] on above: Performed By: #### CBC #### [facility] [address] [address] [address] Xena PickardRBC4.26 106/ulCritically low4.70-6.10The [facility] HealthComcorewell health [facility] on above:Performed By: #### CBC #### [facility] [address] [address] [address] Xena PickardWBC7.1 103/ulNormal4.0-11.0The [facility] HealthComcorewell health [facility] on above: Performed By: #### CBC #### [facility] [address] [place] [address] Dr. Xena PickardGLYCOHEMOGLOBIN A1Con 34-85-3261HVE RECOMMENDATIONSEE BELOWPomerene HospitalComcorewell health [facility] on above:Result Comment: ADA RECOMMENDED LIMIT 4.0 - 6.0 ADA THERAPEUTIC TARGET < 7.0 ACTION SUGGESTED > 7.0Performed By: #### A1C #### [facility] [address] [place] [address] Dr. Xena PickardGlucose [Mass/Vol]120 mg/dLNoAshtabula County Medical Center on above:Performed By: #### A1C #### [facility] [address] [place] [address] Dr. Xena PickardHbA1c (Bld) [Mass fraction]5.8 %Normal4.5-6.2The [facility] on above:Performed By: #### A1C #### [facility] [address] [place] [address] Dr. Xena PickardLIPID PROFILEon 93-42-7537JTEW-HDL RATIO NORMSEE [place] on above:Result Comment: 3.3 - 4.4 LOW RISK 4.4 - 7.1 AVERAGE RISK 7.1 - 11.0 MODERATE RISK >11.0 HIGH RISKPerformed By: #### LIPID, URIC, CMP #### [facility] [address] [address] [address] Xena PickardCholesterol [Mass/Vol]166 mg/dLNormal<=200[facility] Comment on above:Performed By: #### LIPID, URIC, CMP #### [facility] [address] [address] [address] Xena PickardCholesterol in HDL [Mass/Vol]52 mg/tUSsruik42-57Bcq [facility] HealthComment on above:Performed By: #### LIPID, URIC, CMP #### [facility] [address] [address] [address] Xena PickardCholesterol in LDL [Mass/Vol]100.8 mg/dLSelect Medical OhioHealth Rehabilitation Hospital - DublinComment on above:Performed By: #### LIPID, URIC, CMP #### [facility] [address] [place] [address] Dr. Xena Silveiraesterjhon.total/Cholesterol in HDL [Mass ratio]3.2 {ratio} NormalThe [facility] HealthComment on above:Performed By: #### LIPID, URIC, CMP #### [facility] [address] [place] [address] Dr. Xena Armenta NORMAL> or = 60 mg/dl - LOW CARDIOVASCULAR RISK <40 mg/dl - HIGH CARDIOVASCULAR RISKSelect Medical OhioHealth Rehabilitation Hospital - DublinComment on above:Performed By: #### LIPID, URIC, CMP #### [facility] [address] [place] [address] Dr. Xena PickardLDL CALC NORMALSEE BELOWSelect Medical OhioHealth Rehabilitation Hospital - DublinComment on above:Result Comment: <100 mg/dl OPTIMAL 100 - 129 mg/dl NEAR OR ABOVE OPTIMAL 130 - 159 mg/dl BORDERLINE HIGH 160 - 189 mg/dl HIGH >190 mg/dl VERY HIGH Performed By: #### LIPID, URIC, CMP #### [facility] [address] [place] [address] Dr. Xena PickardTriglyceride [Mass/Vol]66 mg/dLNormal<=150The [facility] Comment on above:Performed By: #### LIPID, URIC, CMP #### [facility] [address] [place], [place] [address] Dr. Xena GilLDL CALC13.2 mg/dLNormalThe [facility]tering HealthComment on above: Performed By: #### LIPID, URIC, CMP #### [facility] [address] [address] [address] Xena PickardPHOSPHORUSon 00-40-0346Ettyfozbj [Mass/Vol]3.3 mg/dLNormal2.6-4.7 The [facility] HealthComment on above:Performed By: #### PHOS ####[facility] [address] [place] [address]Dr. Xena PickardPROF 14(COMP METB)on 59-13-8152Xtumdas [Mass/Vol]3.9 g/dLNormal3.4-5.0The [facility]heastern Medical Centerment on above:Performed By: #### LIPID, URIC, CMP #### [facility] [address] [address] [address] Xena PickardAlbumin/Globulin [Mass ratio]1.2 {ratio}NormalThe [facility] Southeastern Medical Centerment on above:Performed By: #### LIPID, URIC, CMP #### [facility] [address] [address] [address] Xena Moran [Catalytic activity/Vol]44 U/LCritically jft89-309Bfl [facility] on above:Performed By: #### LIPID, URIC, CMP #### [facility] [address] [address] [address] Xena Vincent [Catalytic activity/Vol]38 U/DUchlpd58-42Jyp [facility] Centerment on above:Performed By: #### LIPID, URIC, CMP #### [facility] [address] [address] [address] Xena Hopkins gap [Moles/Vol]12.3 mmol/LNormalThe [facility] on above:Performed By: #### LIPID, URIC, CMP #### [facility] [address] [address] [address] Xena Deleon [Catalytic activity/Vol]16 U/PJuvhkt17-74Ukd [facility] HealthComment on above:Performed By: #### LIPID, URIC, CMP #### [facility] [address] [address] [address] Xena PickardBilirubin [Mass/Vol]0.5 mg/dLNormal0.2-1.0[facility] Comment on above:Performed By: #### LIPID, URIC, CMP #### [facility] [address] [place] [address] Dr. Xena PickardCalcium [Mass/Vol]8.7 mg/dLNormal8.5-10.1The [facility] Comment on above:Performed By: #### LIPID, URIC, CMP #### [facility] [address] [place] [address] Dr. Xena PickardChloride [Moles/Vol]101 mmol/FQpvvbs33-962Cqy [facility] Comment on above:Performed By: #### LIPID, URIC, CMP #### [facility] [address] [place] [address] Dr. Xena PickardCO2 [Moles/Vol]26.8 mmol/GNlatzg99.0-32.0The [facility] Comment on above:Performed By: #### LIPID, URIC, CMP #### [facility] [address] [place] [address] Dr. Xena PickardCreatinine [Mass/Vol]1.41 mg/dLCritically high0.70-1.30The [facility] HealthComment on above:Performed By: #### LIPID, URIC, CMP #### [facility] [address] [place] [address] Dr. Xena LyonGFR-AF FFPDTCYO39 mL/min/1.18w8Otxicvtygg low>=60The [facility] HealthComment on above:Performed By: #### LIPID, URIC, CMP #### [facility] [address] [place] [address] Dr. Xena LyonGFR-NON AF LEROGJAE93 mL/min/1.95n4Wzosceotsc low>=60The [facility] HealthComment on above:Performed By: #### LIPID, URIC, CMP #### [facility] [address] [address] [address] Xena PickardGlobulin (S) [Mass/Vol]3.3 g/dLNormAvita Health System Ontario HospitalComment on above:Performed By: #### LIPID, URIC, CMP #### [facility] [address] [address] [address] Xena PickardGlucose [Mass/Vol]106 mg/lENumxsh41-109GmjVan [facility]ert [facility] Hospital Comment on above:Performed By: #### LIPID, URIC, CMP #### [facility] [address] [place] [address] Dr. Xena PickardPotassium [Moles/Vol]4.1 mmol/LNormal3.5-5.1The [facility] Comment on above:Performed By: #### LIPID, URIC, CMP #### [facility] [address] [place] [address] Dr. Xena PickardProtein [Mass/Vol]7.2 g/dLNormal6.4-8.2The [facility] Comment on above:Performed By: #### LIPID, URIC, CMP #### [facility] [address] [place] [address] Dr. Xena PickardSodium [Moles/Vol]136 mmol/NGpkvcd836-760Otj [facility] Comment on above:Performed By: #### LIPID, URIC, CMP #### [facility] [address] [place] [address] Dr. Xena PickardUrea nitrogen [Mass/Vol]33.0 mg/dLCritically high7.0-18.0The [facility] HealthComment on above:Performed By: #### LIPID, URIC, CMP #### [facility] [address] [place] [address] Dr. Xena PickardUrea nitrogen/Creatinine [Mass ratio]23.4 mg/mgNoSt. Mary's Medical CenterComment on above:Performed By: #### LIPID, URIC, CMP #### [facility] [address] [place] [address] Dr. Xena PickardURIC ACID SERUMon 29-94-9054Qfgpr [Mass/Vol]5.1 mg/dLNormal 3.5-7.2The [facility] HealthComment on above:Performed By: #### LIPID, URIC, CMP #### [facility] [address] [address] [address] Xena Antonio T PROTEIN CREAT RATIOon 65-96-7981VY TOTAL PROTEIN<6.0 Normal<=12.0The [facility] HealthComment on above:Performed By: #### URTPCR #### [facility] [address] [address] [address] Xena Antonio CREAT36.48 mg/gHOptuoi77.00-300.00The [facility] Comment on above:Performed By: #### URTPCR #### [facility] [address] [address] [address] Xena PickardCNNURSEon 06-21-7867VUOBSBWBzfqw Visit (COVAMD) AMINA LIM ([id number]) 1945 M Date Time Provider Department 01/07/21 NEIL PIERCE (LORELEI) COVROCCO During your visit today, we recorded the following information about you: Allergies As of Date: 01/07/2021 (No Known Allergies) Date Reviewed: 10/07/2019 Reviewed by: Sharon (Rn) DOLORES Nunn - Fully Assessed Order(s):[employer] SARS-COV-2 VACCINE 2D DOSE APPT [[id number]] Order #: [id number] Prescriptions as of 01/07/2021 Sig: DOCUSATE SODIUM [...] 1 tablet by mouth once d* OMEGA 5-YTX-GCT-FISH OIL 1,00* Take 1 g by mouth [...] [E78.49] 08/21/2017 Shoulder pain [M25.519] 07/16/2019 Encounter Status: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 Ludwin Estrada Dictated: 11/25/2019 #[id number] Typed 11/25/2019 #[id number] cc: Althea Koroma M.D.[facility] HospitalComment on above:Result Comment: Electronically Signed By: Althea Koroma MD\.br\Date and Time Signed: 11/26/19 16:05 ESTMain OR Intraoperative Recordon 46-35-2611Aivh OR Intraoperative RecordIntraOp Document Type FT Summary Primary Physician: Althea Koroma MD Finalized Date/Time: 11/26/19 13:40:27 Pt. Name: AMINA LIM Adriano Alamo./Sex: 1945 Male Med Rec #: [id number] Physician: Althea Koroma MD Financial #: [id number] Pt. Type: A Room/Bed: AS0A/ Admit/Disch: 11/25/19 12:23:56 - 11/25/19 15:20:00 Institution: Case Times FT Entry 1 Patient Times In Room 11/25/19 14:12:00 Out Room 11/25/19 14:44:00 Procedure Times Start 11/25/19 14:22:00 Stop 11/25/19 14:42:00 Anesthesia Times Last Modified By: Estella BERNAL, Cortney SINGH 11/25/19 14:43:21 General Comments: 11/26/2019 Chart opened to review and send charges J Forrest INTERNATIONAL REPRESENTATIVE Case Attendance FT Entry 1 Entry 2 [...] Attendee SAMANTHA Soria RN, Ruthann Role Performed Tonger - Primary Time In 11/25/19 14:12:00 Time [...] LENS(Right) Implant Identification FT Description HIMANSHU IOL [id number] SOFPORT Lot Number [id number] SIZE 20.5 [[id number] 20.5][F] Contractor [employer] FT-BAUSCH [employer] LOMB Catalog ?# [id number] 20.5[F] Expiration Date 01/14/24 Unique Device [id number] Identifier (KATHLEEN) Human Readable {01}[id number] Machine Readable [id number] Barcode Barcode Usage Data FT Implant Site [...] Ruthann 11/25/19 14:43 Tabitha Clayton CST 11/26/19 13:40NoDayton Children's HospitalOperative Reporton 41-64-2705Jznbdetfk ReportDate of Surgery: 11/25/2019 SURGEON: Althea Koroma [...] to the surface of the globe. A [employer] manometer was positioned and set at 20 [...] condition. Althea Koroma M.D. lkr Dictated: 11/25/2019 #[id number] Typed: 11/26/2019 #[id number] cc: Althea Koroma M.D.[facility] HospitalComment on above:Result Comment: Electronically Signed By: Althea Koroma MD\.br\Date and Time Signed: 11/26/19 16:05 ESTInpatient Patient Summaryon 09-94-8447Ynxbrflqr Patient Summary [address] [address] [facility] Clinical Discharge Instructions PERSON INFORMATION Name: AMINA LIM PHYSICIANS Admitting Physician: Althea Koroma MD Attending Physician: Althea Koroma MD PCP: Narciso Bullock MD Discharge Diagnosis: Cataract; Floppy iris syndrome Comment: PATIENT EDUCATION INFORMATION Instructions: Medication Leaflets: Follow up: With: Address: When: Althea Koroma [address] [place] [address] [address], [place] [address] Business (1) Comments: Call physician [...] [address] By Mouth every day. Comment:[facility] HospitalMain OR PACU II Recordon 48-82-0465Oczc OR PACU II RecordPACU Phase II Document Type FT Summary Primary Physician: Althea Koroma MD Finalized Date/Time: 11/25/19 15:24:08 Pt. Name: AMINA LIMO.B./Sex: 1945 Male Med Rec #: [id number] Physician: Althea Koroma MD Financial #: [id number] Pt. Type: A Room/Bed: [address] [address] Admit/Disch: 11/25/19 12:23:56 - 11/25/19 15:20:00 Institution: [facility] Times PACU II FT Pre-Care Text: [...] Signatures Signed By: Emy Thomas RN 11/25/19 15:24NormDiley Ridge Medical CenterMain OR Preoperative Recordon 56-28-5841Yrfm OR Preoperative RecordHolding Area Document Type FT Summary Primary Physician: Althea Koroma MD Finalized Date/Time: 11/25/19 12:48:49 Pt. Name: AMINA LIM /Sex: 1945 Male Med Rec #: [id number] Physician: Althea Koroma MD Financial #: [id number] Pt. Type: A Room/Bed: AS0A/ Admit/Disch: 11/25/19 [...] Signatures Signed By: Cynthia James RN 11/25/19 12:48NoDayton Children's HospitalPatient Education - Texton 73-43-7203Uvblxyt Education - TextNoDayton Children's HospitalBasic Metabolic Panlon 50-70-0533Psiyy gap [Moles/Vol]10 mmol/LNormal0-15 [facility] HospitalCalcium [Mass/Vol]8.4 mg/dLLow8.5-10.5[facility] HospitalChloride [Moles/Vol]106 mmol/NUzxhzd03-110Wmfaoe HospitalCO2 [Moles/Vol]21 mmol/GPrb58-43 [facility] HospitalCreatinine [Mass/Vol]1.23 mg/dLNormal0.7-1.4[facility] Glucose [Mass/Vol]176 mg/eYYlyq76-103Ahknsp HospitalPotassium [Moles/Vol]4.1 mmol/LNormal3.5-5.0[facility] HospitalSodium [Moles/Vol]137 mmol/YCkhxjo560-042 [facility] HospitalUrea nitrogen [Mass/Vol]22 mg/dLNormal8-25[facility] HospitalCASE MANAGEMon 06-27-9883IMSC MANAGEMHNO ID: [id number] Author: Nichelle Henao (Sw) Service: ? Author Type: Merchant Police Type: Care Mgt Progress Note Filed: 07/17/2019 [...] 17, 2019 TIME: 11:04 AM PAGER/CONTACT #: [phone] HospitalCASE MGT INIT ASSESon 65-47-3570UJNS MGT INIT ASSESHNO ID: [id number] Author: Nichelle Henao (Sw) Service: ? 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 No Advance Directive: Current Advance Directive: None Radiation Therapy Technologist Attempted to Assist with AD Completion: [...] None Has the Patient Been in a Prison Facility in the Past 30 days? No SOCIAL: Living Arrangement: Home Lives With: Spouse Financial Resources: Retired Primary Contact: Extended Emergency Contact Information Primary Emergency Contact: Tanja Lim Address: [address] [place] [address] Mobile Relation: Spouse Supportive: Yes Other Important [...] 0 I feel financially burdened by my vav-sj-urimia expenses for my prescription medication: Disagree completely [...] 17, 2019 TIME: 11:02 AM PAGER/CONTACT #: [phone] HospitalCBCon 76-04-1698Sorbcwwv nRBC<0.01Normal<0.01[facility]id HospitalErythrocyte distribution width (RBC) [Ratio]13.2 %Nmiqlj63.5-15.0[facility] HospitalHematocrit (Bld) [Volume fraction]32.9 %Low39.0-51.0[facility] HospitalHemoglobin (Bld) [Mass/Vol]11.0 g/dL Low13.0-17.0[facility] HospitalMCH (RBC) [Entitic mass]30.6 qMMrbgat77.0-34.0[facility] HospitalMCHC (RBC) [Mass/Vol]33.4 g/iAPgtrar33.5-36.0[facility] HospitalMCV (RBC) [Entitic vol]91.6 pJOhiaxv06.0-100.0[facility] HospitalPlatelet mean volume (Bld) [Entitic vol]10.4 fLNormal9.0-12.7[facility] HospitalPlatelets (Bld) [#/Vol]188 10*3/wWOiheue704-022Uhxtxr HospitalRBC (Bld) [#/Vol]3.59 10*6/uLLow4.20-6.00 [facility] HospitalWBC (Bld) [#/Vol]16.37 10*3/uLHigh3.70-11.00[facility] NURSING PROGon 88-59-5263YKFTNUG PROGHNO ID: [id number] Author: Prudence (Rn) DOLORES Bowen Service: Nursing Author Type: Registered Nurse Type: Nursing Progress Note Filed: 07/17/2019 1:33 PM Note Text: Nursing Progress Note Patient Name: Amina Lim Patient Location: SD-517/ SD-517-1 Daily Note:.Assumed care of patient, assessment completed, [...] summary. This note was completed by: Lorenzo DorantesPiggott Community Hospital 09-89-1736YSLUADYXASE ID: [id number] Author: Sky Echols Service: General Internal Medicine [...] of care with Dr. Echols. Yeny Walters, LULÚ.SENIOR CYTOGENETIC TECHNOLOGIST July 17, 2019 10:36 AM I have seen the patient and verified the exam. I have personally reviewed all labs and imaging results. I have discussed with the LAWN MAINTENANCE WORKER and I have participated in montelongo components. I agree with the note as documented with additional comments if needed. The assessment and plan as outlined are reflection of our discussion. Sky Echols MD [facility], 2019[facility]: [id number] Author: Rolly (Raquel Osullivan MD Service: Orthopaedic [...] (U/L) Date Value 07/27/2009 29 URINALYSIS Specific [place], Ur Date Value Ref Range Status 08/24/2009 [...] Osullivan MD Resident Physician PGY-2 Orthopaedic Surgery [address] For urgent issues or if after 5:00 PM/weekends, please page [phone]-[phone])Normal [facility] HospitalTHERAPY NTon 98-68-7849ASLCATF NTHNO ID: [id number] Author: Roseanne Jenkins Service: Occupational Therapy Author Type: Occupational Therapist Type: Therapy (PT/OT/Speech/Resp) Filed: 07/17/2019 3:00 PM Note Text: Occupational Therapy Evaluation SERVICE DATE: 07/17/2019 SERVICE TIME: 0950 to 1020 ROOM: [address]-517-1 Recommended Discharge Disposition: Home Anticipated Discharge [...] of daily living (ADL) Interventions Provided: Evaluation;Self Prison Management (05227) $ Evaluation-Low (17052) Billed Units: 1 unit Self Prison Management (85080) Treatment Minutes: 23 2 units Skilled Intervention(s): [...] Lim DATE: July 17, 2019 TIME: 2:46 [facility] NTO ID: [id number] Author: Roseanne (Ot) Gregory Service: Occupational Therapy Author Type: Occupational Therapist Type: Therapy (PT/OT/Speech/Resp) Filed: 07/17/2019 3:08 PM Note Text: Occupational Therapy Treatment SERVICE DATE: 07/17/2019 SERVICE TIME: 1155 to 1240 ROOM: [address] [address] Recommended Discharge Disposition: Home Anticipated Discharge Needs: [...] daily living (ADL) Interventions Provided: Therapeutic Exercise (40469);Self Prison Management (52454) Therapeutic Exercise (10254) Treatment Minutes: 10 1 unit Skilled Intervention(s): Instruction in therapeutic exercise Verbal and tactile cuing provided Facilitation of muscle control, optimal recruitment and alignment Education in PROM shoulder to 90 degrees FF passively and work toward limit of 120 degrees. Spouse able to perform PROM to 90 degrees as well Self Prison Management (33820) Treatment Minutes: 35 2 units Skilled Intervention(s): [...] Lim DATE: July 17, 2019 TIME: 3:04 [facility] HospitalHNO ID: [id number] Author: Floresita Ray Service: Physical Therapy Author Type: Physical Therapist Type: Therapy (PT/OT/Speech/Resp) Filed: 07/17/2019 1:21 PM Note Text: PHYSICAL THERAPY MISSED VISIT SERVICE DATE: 07/17/2019 SERVICE TIME: 1320 to 1320 [address]: [address]1 (EU OR POST OP) Attempted Evaluation. Patient not seen due to No Skilled Needs. Patient's post op needs can be met by OT. Pt does not have any functional mobility impairment. Will discontinue PT order. SIGNATURE: Floresita Ray PT PATIENT NAME: Amina Lim DATE: July 17, 2019 TIME: 1:21 [facility] 96-82-9391BNJQDE HEALTHHNO ID: [id number] Author: Armen JacobsonRtTaina Redmond Service: Radiology Author Type: Jet Blade Polisher Type: [employer] Filed: 07/16/2019 3:56 PM Note Text: [...] BY: RT Elijah July 16, 2019 3:56 [facility] ID: [id number] Author: Armen Redmond (Rt) Service: Radiology Author Type: Jet Blade Polisher Type: [employer] Filed: 07/16/2019 3:47 PM Note Text: [...] BY: RT Elijah July 16, 2019 3:47 [facility]AN[facility] Gerry 21-36-0369DJIG POSTHNO ID: [id number] Author: Jordan Desai Service: Anesthesiology Author Type: [...] 16, 2019 TIME: 5:30 PM PAGER/CONTACT #: [phone] Hill Hospital PREOPon 07-16-2019 ANES PREOPHNO ID: [id number] Author: Jordan Desai Service: Anesthesiology Author Type: [...] Take 1 tablet by mouth once daily. Zgnsf-6-PXE-EPA-Fish Oil (FISH OIL) 1,000 mg (120 mg-180 mg) cap Take 1 g by mouth once daily. Lecithin 1,200 mg cap Take 1 capsule by mouth once daily. lovastatin (MEVACOR) 20 mg tablet Take 20 mg by mouth daily at bedtime. multivitamin (MULTIPLE VITAMINS) tablet Take 1 tablet by mouth once daily. [place] 160 mg capsule Take 160 mg by [...] MD DATE: July 16, 2019 TIME: 10:51 [facility] 01-31-7701MHOFXUGQYW ID: [id number] Author: Yeny Walters Service: General Internal Medicine [...] by mouth once daily. Disp: Rfl: 07/05/2019 Fjfdx-2-TIP-EPA-Fish Oil (FISH OIL) 1,000 mg (120 mg-180 [...] mouth once daily. Disp: Rfl: 07/05/2019 [place] 160 mg capsule Take 160 mg by [...] the care of your patient. Yeny Walters APRN.SENIOR CYTOGENETIC TECHNOLOGIST July 16, 2019 5:46 PMNormalJewish Memorial HospitalOPERATIVE NOon 29-69-7256YOUTDQPAS NOHNO ID: [id number] Author: Anshu Thomas Service: Orthopaedic Surgery Author Type: Physician Type: Operative Report Filed: 07/16/2019 3:21 PM Note Text: [address] [place] [address] [place] OPERATIVE REPORT NAME: Amina [facility] #: [id number] DATE: 07/16/2019 (1:12pm-3:12pm) AGE: 74 SURGEON 1: Anshu Thomas M.D. COAL BRIQUETTE MACHINE OPERATOR: 1. Brain Kay M.D. 2. Rolly Osullivan [...] INDICATIONS: The patient is a 74 year olddrd-xcfg-rsp right-hand dominant white male who has a [...] a #2 Ticron suture passed in a qxlwst-bb-bvsyr fashion. Following this, all retractors were removed, [...] SPECIMENS: none COMPLICATIONS: none apparent Anshu Thomas M.D.[facility] HospitalXR SHOULDER SPECIFY 1V RTon 20-04-0306ZV SHOULDER SPECIFY 1V RT* * *Final Report* [...] 16 2019 3:57PM EST [id number] HospitalNURSING PROGon 89-28-7629IKWDQTC PROG HNO ID: [id number] Author: Norma (Rn) Kyree RN Service: Nursing [...] glucose 114 06/25/19 TANDS 30 day in [facility] 03/14/17 [place] Imaging Within Last 12 Months: 06/25/19 ct shoulder in [facility] 12/13/18 xr shoulder 3v Cardiac Testin06/25/19 prelim ekg in [facility] Last Menstrual Period: NA BMI Percentile (PEDS): N/A Risk Assessment: N/A Anesthesia Review: N/A Narrative: N/A Pre-op Considerations: PER [facility] HX CLARENCE- CPAP at night History of Prostate CA with Radiation and insertion of Seeds CKD follows with Nephrology Chart Check: IN PROGRESS NEED FINAL EKG Marialuisa Cates RN June 27, 2019 1:24 PM July 15, 2019 8:38 AM Final EKG from 06/25/19--Sinus allegra (57bpm) Norma Adorno RNLehigh [facility] HospitalType and SCR (30D)on 82-26-5620FLG/RH(D) PositiveLehigh Valley Hospital - Schuylkill [facility] [address] HospitalHOSPon 56-37-2001NSKXHhdgmue:Amina Lim MRN: Height:5' 10.5 (1.791 m) Weight:211 [...] (VITAMIN C) 1,000 mg tablet [employer] Aepyk-1-RIW-EPA-Fish Oil (FISH OIL) 1,000 mg (120 mg-180 mg) cap Lecithin 1,200 mg cap lovastatin (MEVACOR) 20 mg tablet multivitamin (MULTIPLE VITAMINS) tablet [place] 160 mg capsule vitamin b complex tab [...] progress notes entered within the past 30 daysMilford HospitalXR SHLDR >/=3V AP/RADHA AP/OTHR LTon 89-51-0876YV SHLDR >/=3V AP/RADHA AP/OTHR LT* * *Final [...] MD on Dec 10 2018 9:43AM EST [id number] Health CherawXR SHLDR >/=3V AP/RADHA AP/OTHR RTon 93-50-7135YI SHLDR >/=3V AP/RADHA AP/OTHR RT* * *Final [...] MD on Dec 10 2018 9:37AM EST [id number] Vital Signs Date TimeVital SignValuePerforming YnghvifpzUxlwusyt03-30-9108 10:21-0500Body kubyme062.1 cmRhyagustina Salgado DO Work Phone: [phone] hospitaland Sjvrhc45-23-6745 10:21-0500Body mass index (BMI) [Ratio]28.84 kg/x3Aeohk Junioritz DO Work Phone: VlevelOhioHealth Dublin Methodist HospitalTcsmsg45-19-6177 10:21-0500Body .5 kgRhakiko Salgado DO Work Phone: [facility] hospitaland Mjizhq76-03-2307 10:21-0500Diastolic blood mjlfmxib65 mm[Hg]Lyndsay Salgado DO Work Phone: [facility] Kdrcxv24-11-0768 10:21-0500Heart rate64 /min Lyndsayakiko Salgado DO Work Phone: [facility]car[facility] hospitaland Ibejej91-53-5739 10:21-0500Systolic blood vqireici025 mm[Hg]Lyndsay Salgado DO Work Phone: CAvita [facility] System Bucyrus HospitalFxpbas41-35-5188 13:14-0400Body .8 cmMattrolakassie Tilley PA Work Phone: [facility] DivisionQusnmdqkpb07-91-1356 13:14-0400Body mass index (BMI) [Ratio]29.96 kg/x5Ivrxjyb Tilley PA Work Phone: [facility] DivisionMnmjdcblun93-34-7075 13:14-0400Body amnocu68.71 kgMattyanet Tilley PA Work Phone: [facility] DivisionVlcugufodq70-90-2355 09:10-0400Body emavbb673.1 cmRcheri Salgado DO Work Phone: NAv[facility] Bucy[facility] HospitalWlnmuz83-96-0243 09:10-0400Body vuwelw44.53 kgRhakiko Salgado DO Work Phone: N[facility]car[facility] hospitaland Uyjbvd84-13-6343 09:10-0400Diastolic blood giyyabvk51 mm[Hg]Lyndsay Salgado DO Work Phone: [place] Viiymy79-28-6715 09:10-0400Heart rate43 /min Lyndsay Maditz DO Work Phone: ctuscarawas hospitaland Yumyyf88-55-9953 09:10-0400Systolic blood nsemxzzl973 mm[Hg]Lyndsay Salgado DO Work Phone: cAvita Health System Bucyrus HospitalQhcthh30-65-6017 11:20-0500Body .8 cmAaleksjose Irelandyessica Other [employer] Other 11-22-2022 11:20-0500Body mass index (BMI) [Ratio]29.9 kg/m2Yudith Shuyessica Other [employer] Other 11-22-2022 11:20-0500Body rpzqnjiicsd77.5 [degF]Yudith Rubin Other [employer] Other 11-22-2022 11:20-0500Body .53 kgYudith Shuyessica Other [employer] Other 11-22-2022 11:20-0500Diastolic blood eipbaqsg44 mm[Hg] Yudith Rubin Other [employer] Other 11-22-2022 11:20-0500Respiratory rate18 /minYudith Rubin Other [employer] Other 11-22-2022 11:20-0424GfQ3% (BldA) [Mass fraction]98 % Yudith Rubin Other [employer] Other 11-22-2022 11:20-0500Systolic blood hcjovynf386 mm[Hg] Yudith Shuyessica Other [employer] Other 12-08-2021 11:20-0500Body azceis040.8 cmEjocelyn Earl Other [facility] [employer] Other 12-08-2021 11:20-0500Body mass index (BMI) [Ratio] 30.93 kg/c1LoybqIleana Earl Other [facility] [employer] Other 12-08-2021 11:20-0500Body fabylejocux08.4 [degF]Ileana Earl Other [facility] [employer] Other 12-08-2021 11:20-0500Body qujffn36.8 kgIleana Earl Other [facility] [employer] Other 12-08-2021 11:20-0500Diastolic blood vekdrczl89 mm[Hg] Ileana Earl Other [facility] [employer] Other 12-08-2021 11:20-0500Respiratory rate18 /minEjocelyn Earl Other [facility] [employer] Other 12-08-2021 11:20-9591KrO4% (BldA) [Mass fraction]97 % Ileana Earl Other [facility] [employer] Other 12-08-2021 11:20-0500Systolic blood rfviiair983 mm[Hg] Ileana Earl Other [facility] [employer] Other Encounters Encounter DateEncounter TypeCare ProviderFacilityStart: 06-27-2025 End: 26-62-0230vqwnbpsnpiWTWKEHarrison Community Hospitaltart: 11-07-2024 End: 89-21-2999Bqxjnr flowsheetMazenia MOSELEY Work Phone: [facility] ORTHOStart: 11-07-2024 End: 59-15-0379Ipbofr flowsheetQueta MOSELEY Work Phone: [facility] ORTHOStart: 11-07-2024 End: 19-25-8913Qzdtgc follow up visit related to original Robyn MOSELEY Work Phone: noms SWS ORTHOComment on above:S/P TKR (total knee replacement), left (Primary Dx)Start: 11-07-2024 End: 19-84-0735yfdredfzobKTRVUUK J MEYERAlvin J. [facility] AvailableStart: 10-28-2024 End: 51-23-8424snohpjmuczPHVHGCoshocton Regional Medical Centertart: 10-22-2024 End: 15-89-6364oxuoxdktsfHGCTHSW M HOYFacility:[facility] Hospitaltart: 10-22-2024 End: 34-02-8762Yhpnlvt encounter procedureLyndsay Salgado DO Work Phone: Kidney MedicineComment on above:Stage 3a chronic kidney disease (HCC) (Primary Dx); Anemia of renal disease; Secondary renal hyperparathyroidism (HCC); Primary hypertension; SVT (supraventricular tachycardia) (HCC)Start: 10-18-2024 End: 26-53-5383qxhwwviilhSqsmyi Hisey PTANOMS NM PTComment on above:Acute postoperative pain of left knee (Primary Dx); S/P total knee replacement, leftStart: 10-17-2024 End: 21-36-4042Msyokrzmq encounterDiana Lyla DO Work Phone: Kidney MedicineStart: 10-08-2024 End: 30-87-0508ccdpaaknbuHbke M Medves PT Work Phone: noms NM PTComment on above:Acute postoperative pain of left knee (Primary Dx); S/P total knee replacement, leftStart: 10-03-2024 End: 36-04-4515Jeqbso flowsheetQueta MOSELEY Work Phone: NOMS SWS ORTHOStart: 10-03-2024 End: 28-65-6046Hwumto flowsJerilyn MOSELEY Work Phone: NOUI SWS ORTHOStart: 10-03-2024 End: 75-27-4721Ntjocu follow up visit related to original Robyn MOSELEY Work Phone: noms SWS ORTHOComment on above:S/P TKR (total knee replacement), left (Primary Dx); Acute pain of left kneeStart: 10-03-2024 End: 34-86-4133oirjjxehuyJhzh M Medves PT Work Phone: NOMS NM PTComment on above:Acute postoperative pain of left knee (Primary Dx); S/P total knee replacement, leftStart: 09-30-2024 End: 97-06-6750rvpqryhwwiBirk M Medves PT Work Phone: NOMS NM PTComment on above:Acute postoperative pain of left knee (Primary Dx); S/P total knee replacement, leftStart: 09-27-2024 End: 42-49-8970Lkbplx Danitza Sousa PT Work Phone: [phone] NM PTStart: 09-27-2024 End: 13-62-0019Powjac Danitza Sousa PT Work Phone: [phone] NM PTStart: 09-27-2024 End: 22-01-9793opuqvzktomPWRPLF J EVANSNot AvailableStart: 09-23-2024 End: 02-89-9563Lgudxy flowsheetRyan M Medves PT Work Phone: NOMS NM PTStart: 09-23-2024 End: 15-01-5803Sdqueb flowsheetRyan M Medves PT Work Phone: NOMS NM PTStart: 09-23-2024 End: 73-66-2592mfdthcddopSsjx M Medves PT Work Phone: [phone] NM PTComment on above:Acute postoperative pain of left knee (Primary Dx); S/P total knee replacement, leftStart: 09-18-2024 End: 02-10-3545Gmtmex flowsheetTanner Hisey PTANOMS NM PTStart: 09-18-2024 End: 19-83-3909Axrjdx flowsheetTanner Hisey PTANOMS NM PTStart: 09-18-2024 End: 73-68-3238aytlwukeaeVktulm Hisey PTANOMS NM PTComment on above:S/P total knee replacement, left (Primary Dx); Acute postoperative pain of left kneeStart: 09-16-2024 End: 32-04-1258Agpogi Danitza Sousa PT Work Phone: NOMS NM PTStart: 09-16-2024 End: 92-53-0941Suumiw Danitza Sousa PT Work Phone: [phone] NM PTStart: 09-16-2024 End: 61-19-6980hjpvwugxruIkzhal J Evans PT Work Phone: NOMS NM PTComment on above:S/P total knee replacement, left (Primary Dx); Acute postoperative pain of left kneeStart: 09-11-2024 End: 95-10-6041Lxhhbh Danitza Sousa PT Work Phone: NOMS NM PTStart: 09-11-2024 End: 37-95-7562Uxcsnd Danitza Sousa PT Work Phone: NOMS NM PTStart: 09-11-2024 End: 69-76-5243kiupauhxzcArvhoa J Evans PT Work Phone: NOMS NM PTComment on above:S/P total knee replacement, left (Primary Dx); Acute postoperative pain of left kneeStart: 09-09-2024 End: 18-55-5586nixgzhwvrzPeulul J Evans PT Work Phone: NOMS NM PTComment on above:S/P total knee replacement, left (Primary Dx); Acute postoperative pain of left kneeStart: 09-09-2024 End: 58-91-7014Ihrtiv Danitza Sousa PT Work Phone: NOMU NM PTStart: 09-09-2024 End: 53-00-5290Jjqfpd Danitza Sousa PT Work Phone: NOTI NM PTStart: 09-05-2024 End: 30-12-9517Icbwcc flowsJerilyn MOSELEY Work Phone: NOYN SWS ORTHOStart: 09-05-2024 End: 86-61-5732Rfaqca Nga MOSELEY Work Phone: noms SWS ORTHOStart: 09-05-2024 End: 87-24-1337Xyimpx follow up visit related to original Robyn MOSELEY Work Phone: noms SWS ORTHOComment on above:S/P TKR (total knee replacement), left (Primary Dx); Post-operative painStart: 09-05-2024 End: 22-08-2123fxxydezbiuOFROWEF J MEYERNot AvailableStart: 08-29-2024 End: 80-72-5107LxipwkDqmxy T Olsen [employer] MAINTENAN[employer] WORKER Work Phone: NORB FB ORTHOPAEDICSComment on above:Post-operative painStart: 08-21-2024 End: 39-97-7926XvhkyiWqvoa T Olsen LAWN MAINTENANCE WORKER Work Phone: noms FB ORTHOPAEDICSComment on above:Post-operative pain (Primary Dx)Start: 08-20-2024 End: 70-90-9020Gfypkc OnlyuQeta MOSELEY Work Phone: [phone]-DROA ATLASComment on above:Encounter for other preprocedural examinationStart: 08-20-2024 End: 89-02-2587Yqjzrmh encounter statusQueta MOSELEY Work Phone: [facility] SystemStart: 08-14-2024 End: 87-09-7078Ymahzzabi encounterJr. El Ruiz DO Work Phone: noms SWS ORTHOComment on above:SurgeryStart: 08-13-2024 End: 13-61-0884mrmfmsiggnGMNCIKJ J MEYERVeterans Health Administrationtart: 33-24-6424Kwpuefkto for other preprocedural examinationMATTYANET [facility] Medical Centertart: 08-13-2024 End: 03-59-6465Edsuxuzs Result EncounterMazenia MOSELEY Work Phone: NOYC External Department UnsolicitedStart: 08-13-2024 End: 89-30-4640Aloxbwos Result EncounterMazenia MOSELEY Work Phone: noms External Department UnsolicitedStart: 08-13-2024 End: 58-81-6923Kbsumu OnlyMazenia MOSELEY Work Phone: [phone]-QVWW ATLASComment on above:Encounter for other preprocedural examinationStart: 08-13-2024 End: 19-15-9341Ffvfdrh encounter statusQueta MOSELEY Work Phone: [facility] SystemStart: 08-13-2024 End: 46-96-0964Xbnnevq encounter procedureMazenia MOSELEY Work Phone: noms FB ORTHOPAEDICSComment on above:Preop examination (Primary Dx); Primary osteoarthritis of left knee; Eczema, unspecified typeStart: 08-13-2024 End: 78-02-7352Sltlptaabjoah examination doneMazenia MOSELEY Work Phone: noms HealthcareStart: 08-13-2024 End: 58-33-4630msvhlgvvvkNUWWPUS J MEYERNot AvailableStart: 08-07-2024 End: 20-46-1869Xkrzsx flowsheetJgreg Ruiz DO Work Phone: noms [facility] ORTHOStart: 08-07-2024 End: 11-37-4003Kfidau flowsheetJgreg Matos Stepjayce DO Work Phone: noms [facility] ORTHOStart: 08-07-2024 End: 78-97-6516wmredreocpKB.EL AvailableStart: 08-07-2024 End: 74-33-4771Btxiut outpatient visit 25 minutesJr. El Ruiz DO Work Phone: noms SWS ORTHOComment on above:Acute pain of right knee (Primary Dx); History of right knee joint replacement; Primary osteoarthritis of left kneeStart: 06-26-2024 End: 69-66-5637Tjegaa flowsheetJr. El Ruiz DO Work Phone: NONK SWS ORTHOStart: 06-26-2024 End: 49-75-4055Gghaxf flowsheetJr. El Ruiz DO Work Phone: noms SWS ORTHOStart: 06-26-2024 End: 19-06-3540Lanqbv follow up visit related to original pxJr. lE Ruiz DO Work Phone: noms SWS ORTHOComment on above:S/P TKR (total knee replacement), right (Primary Dx); Primary osteoarthritis of left kneeStart: 06-26-2024 End: 56-89-7691xpbclilmcrNG., EL Fabian AvailableStart: 05-16-2024 End: 78-62-2911htempegyiaQGMJ M MEDVESNot AvailableStart: 05-15-2024 End: 76-06-2027ccfpnkkpgqAZPDJNY J MEYERNot AvailableStart: 05-14-2024 End: 13-58-3581ilpbxutqjqEPJQRD HISEYNot AvailableStart: 05-08-2024 End: 58-18-3224pzysfbxrnoHSZWZVXQ HAHNNot AvailableStart: 05-06-2024 End: 05-99-7714cycyvtiarsJZDNOL GUZIKNot AvailableStart: 05-01-2024 End: 68-71-0300eduynhbmcjDOGKHQNE LEENot AvailableStart: 04-29-2024 End: 55-01-8185aoxqaorwdcIKDIBMNB HAHNNot AvailableStart: 04-26-2024 End: 18-50-2285yksvfptpttKRSCUB NIDAZIKNot AvailableStart: 04-24-2024 End: 32-00-3147yfjzmzrqypARUDUD SAHARAKNot AvailableStart: 04-22-2024 End: 68-24-3927wrwgabxhhiXJQK M MEDVESNot AvailableStart: 04-17-2024 End: 24-11-6923hheejieumaJSGQCLT J MEYERNot AvailableStart: 03-20-2024 End: 09-38-5239mlbvruiwglCTVX M MEDVESNot AvailableStart: 03-18-2024 End: 30-41-9963Zfiwtye encounter procedureMD Narciso Bullock Work Phone: [facility] Work Phone: Start: 03-18-2024 End: 98-35-4857tpdzpgwroaFX Narciso Bullock Work Phone: [facility] Work Phone: Start: 62-06-5193Klinsrkil for other preprocedural examinationMatthew [facility] Physician GroupStart: 03-18-2024 End: 52-66-9019iwveyxwxvpDAONRHG J MEYERNot AvailableStart: 02-02-2024 End: 98-52-7604jecsjzbwzxKZEL Billy AvailableStart: 05-24-2023 ambulatoryNo [facility] EnterpriseStart: 05-16-2023 End: 70-36-7656Ghgxrgy encounter procedureLyndsay Salgado DO Work Phone: [facility] MedicineComment on above:Chronic kidney disease, unspecified CKD stage (Primary Dx); Bradycardia; Generalized pain; Anemia of renal disease; Primary hypertensionStart: 08-44-1554hkxdgpyfjpKK NARCISO BULLOCK .Facility:S4Ctdph: 10-03-2022 End: 98-02-7644xmkzzeinhxXY NARCISO BULLOCK .Facility:M0Gpcpg: 09-06-2022 End: 96-28-4688ljpuzbxxbkLsem Bakhous Other [employer] Other Start: 05-31-4901Ivrtip outpatient visit 15 minutes Yudith IrelandsFPG NephrologyStart: 09-01-2022 End: 67-30-2323bzkzgjtsunWM NARCISO HOY .Facility:W3Uawlj: 09-01-2022 End: 89-90-0829uiqcofnerdZR NARCISO HOY .Facility:G1Hqbjv: 09-22-2021 End: 94-21-1270knfolotlnjZtssy Elashi Other [facility] Other Start: 18-80-3415Hxqgbh outpatient visit 15 minutes Ileana EarlFPG NephrologyStart: 12-10-2018 End: 52-99-6597Juioozr encounter procedureSaint [facility] Procedures DateProcedureProcedure DetailPerforming ClinicianStart: 32-07-4087Uudewlvyon examination knee 1/2 viewsMazenia MOSELEY Work Phone: Start: 44-95-8496Fpcosufguzfxtk time partial plasma/whole bloodMazenia MOSELEY Work Phone: Start: 36-70-3087UBA screeningDR NARCISO BULLOCK .Comment on above:Performed By: #### [facility] #### [facility] [address] [place] [address] Dr. Xena PickardStart: 84-16-1954Pbmvchrn screenHistory of operative procedure on kneeHistory of right knee joint replacementJr. El Ruiz DO Work Phone: Plan of Treatment DateCare ActivityDetailAuthorStart: 11-10-4022Rymvzobl ScreeningDiabetes ScreeningCleveland ClinicStart: 11-03-2025 End: 21-16-9702Qwevssr encounter cxyyefycm64/19/2026 8:30 AM EST Office Visit [facility] [address] [place] [phone] Queta Tilley PA [address] [place] [address] NOMS SWS ORTHOStart: 10-16-2025 End: 78-30-269947470546-gvprewyxnanhnn D3 [Mass/volume] in Serum or PlasmaVITAMIN D 25 HYDROXY Lab Routine Stage 3a chronic kidney disease (HCC) Expected: 10/16/2025, Expires: 01/15/2026leveland ClinicComment on above:Expected: 10/16/2025, Expires: 01/15/2026Start: 10-16-2025 End: 26-03-1427JJP panel - Blood by Automated countCOMPLETE BLOOD COUNT Lab Routine Stage 3a chronic kidney disease (HCC) Expected: 10/16/2025, Expires: 01/15/2026leveland ClinicComment on above:Expected: 10/16/2025, Expires: 01/15/2026Start: 10-16-2025 End: 42-81-5621Xmaowzqztl.intact [Mass/volume] in Serum or PlasmaPTH INTACT Lab Routine Stage 3a chronic kidney disease (HCC) Expected: 10/16/2025, Expires: 01/15/2026leveland ClinicComment on above:Expected: 10/16/2025, Expires: 01/15/2026Start: 10-16-2025 End: 15-85-1411Lmvyher/Creatinine [Mass Ratio] in UrinePROTEIN / CREATININE RATIO Lab Routine Stage 3a chronic kidney disease (HCC) Expected: 10/16/2025, E xpires: 01/15/2026leveland ClinicComment on above:Expected: 10/16/2025, Expires: 01/15/2026Start: 10-16-2025 End: 19-48-8327Mjjsf function 2000 panel - Serum or PlasmaRENAL FUNCTION PANEL Lab Routine Stage 3a chronic kidney disease (HCC) Expected: 10/16/2025, Expires: 01/15/2026[facility] Work Phone: comment on above:Expected: 10/16/2025, Expires: 01/15/2026Start: 10-16-2025 End: 46-09-0261Mzmeuaamww complete panel - UrineURINALYSIS, WITH MICROSCOPIC Lab Routine Stage 3a chronic kidney disease (HCC) Expected: 10/16/2025, Expires: 01/15/2026leveland ClinicComment on above:Expected: 10/16/2025, Expires: 01/15/2026Start: 20-99-7434Nxqcmwpq blood countHemoglobin/HematocritMcCullough-Hyde Memorial Hospitaltart: 51-89-3070Gvkldvmzyj measurementSerum CreatinineOhiohealth Van Wert Hospital Start: 11-07-2024 End: 67-82-4316Xyttacg encounter procedureNOMS SWS ORTHOComment on above:S/P TKR (total knee replacement), left (Primary Dx)Start: 10-22-2024 End: 29-60-8985Wosvmbd encounter /07/2025 10:20 AM EST Office Visit Kidney Medicine [address] [place] [address] Lyndsay Salgado DO [address] [place] [address] 1 yearKidney MedicineComment on above:1 yearStart: 10-18-2024 End: 27-84-7530hlzvvbejfb97/03/2025 8:30 AM EST Treatment [facility] PT [address] [place] [address] Giacomo Jones PTANOMS NM PTStart: 10-17-2024 End: 825508-apvcryhbxibewj D3 [Mass/volume] in Serum or PlasmaVITAMIN D 25 HYDROXY Lab Routine Stage 3 chronic kidney disease, unspecified whether stage 3a or 3bCKD (HCC) Expected: 10/17/2024, Expires: 01/16/20[facility] Comment on above:Expected: 10/17/2024, Expires: 01/16/2025Start: 10-17-2024 End: 23-26-3970NGW panel - Blood by Automated countCOMPLETE BLOOD COUNT Lab Routine Stage 3 chronic kidney disease, unspecified whether stage 3a or 3bCKD (HCC) Expected: 10/17/2024, Expires: 01/16/2025[facility] ClinicComment on above: Expected: 10/17/2024, Expires: 01/16/2025Start: 10-17-2024 End: 63-09-2494Bhdklnenhxbh/Creatinine [Mass Ratio] in UrineALBUMIN/CREATININE RATIO, URINE Lab Routine Stage 3 chronic kidney disease, unspecified whether stage 3a or 3b CKD (HCC) Expected: 10/17/2024, Expires: 01/16/2025[facility] Work Phone: Comment on above:Expected: 10/17/2024, Expires: 01/16/2025Start: 10-17-2024 End: 00-90-7041Trsmowppqp.intact [Mass/volume] in Serum or PlasmaPTH INTACT Lab Routine Stage 3 chronic kidney disease, unspecified whether stage 3a or 3b CKD (HCC)Expected: 10/17/2024, Expires: 01/16/2025[facility] ClinicComment on above: Expected: 10/17/2024, Expires: 01/16/2025Start: 10-17-2024 End: 31-04-5429Xtsupbm/Creatinine [Mass Ratio] in UrinePROTEIN / CREATININE RATIO Lab Routine Stage 3 chronic kidney disease, unspecified whether stage 3aor 3b CKD (HCC) Expected: 10/17/2024, Expires: 01/16/2025[facility] ClinicComment on above:Expected: 10/17/2024, Expires: 01/16/2025Start: 10-17-2024 End: 02-52-4826Csdrr function 2000 panel - Serum or PlasmaRENAL FUNCTION PANEL Lab Routine Stage 3 chronic kidney disease, unspecified whether stage 3a or 3b CKD (HCC) Expected: 10/17/2024, Expires: 01/16/2025[facility] ClinicComment on above:Expected: 10/17/2024, Expires: 01/16/2025Start: 10-17-2024 End: 71-31-7633Ingtafugsj complete panel - UrineURINALYSIS WITH MICROSCOPIC, REFLEX CULTURE Lab Routine Stage 3 chronic kidney disease, unspecifiedwhether stage 3a or 3b CKD (HCC) Expected: 10/17/2024, Expires: 01/16/2025[facility] ClinicComment on above:Expected: 10/17/2024, Expires: 01/16/2025Start: 84-74-9139Gsvudlk Directive DiscussionAdvance Directive DiscussionCleveland ClinicStart: 10-08-2024 End: 26-96-6100ttawfkqbzo99/24/2024 10:15 AM EST Treatment [facility] [address] [place] [address] Shirlene Blakely, PT [address] [place] [address] NOMS NM PTStart: 10-03-2024 End: 86-13-2452sttjdlcoog28/19/2024 10:00 AM EST Treatment [facility] [address] [place] [address] Shirlene Blakely, PT [address] [place] [address] NOMS NM PTStart: 10-03-2024 End: 86-32-2859Meubqac encounter procedureNOMS SWS ORTHOComment on above:S/P TKR (total knee replacement), left (Primary Dx)Start: 09-30-2024 End: 19-26-9377gwpypdmmjf85/16/2024 5:30 PM EST Treatment [facility] [address] [place] [address] Roseanne Sousa, PT [address] [place] [address] NOMS NM PTStart: 09-30-2024 End: 66-83-8582tsckegnzbl06/16/2024 10:30 AM EST Treatment [facility] [address] [place] [address] Ameena Mahajan PTANOMS NM PTStart: 09-27-2024 End: 52-01-0499ipkudcfyqkDJRS NM PTComment on above:ArrivedStart: 09-23-2024 End: 07-41-0319mebdgoxdoeYUWW NM PTComment on above:Acute postoperative pain of left knee (Primary Dx); S/P total knee replacement, leftStart: 09-20-2024 End: 19-25-7442juuivcqtjo52/06/2024 8:45 AM EST Treatment [facility] [address] [place] [address] Roseanne Sousa, PT [address] [place] [address] NOMS NM PTStart: 09-18-2024 End: 49-61-3396qzottdlqeo57/04/2024 9:00 AM EST Treatment [facility] [address] [place] [address] Giacomo Jones PTANOMS NM PTStart: 09-16-2024 End: 45-92-6038rxwooxpgkxGKGY NM PTComment on above:ArrivedStart: 09-11-2024 End: 50-11-5263phwtuxhmoyIUKP NM PTComment on above:ArrivedStart: 09-09-2024 End: 64-76-9180qxpufbufpsSPRW NM PTComment on above:S/P total knee replacement, leftStart: 09-05-2024 End: 25-14-2190Jodokuq encounter procedureNOMS [facility] ORTHOComment on above:S/P TKR (total knee replacement), left (Primary Dx)Start: 08-13-2024 End: 66-23-2539Wixdvkt dipstick, urineGlucose dipstick, urine Lab Routine Encounter for other preprocedural examination Expected: 08/13/2024, Expires: 08/20/2025[facility] Work Phone: Comment on above:Expected: 08/13/2024, Expires: 08/20/2025Start: 08-09-2024 End: 24-07-8465wBWJ in Blood by Coagulation assayAPTT Lab Routine Preop examination Expected: 08/09/2024 (Approximate), Expires: 08/09/2025[facility] Work Phone: Comment on above:Expected: 08/09/2024 (Approximate), Expires: 08/09/2025Start: 08-09-2024 End: 42-14-5724Qgvccovn identified in Urine by CultureNOID HealthcareComment on above:Expected: 08/09/2024 (Approximate), Expires: 08/09/2025Expected: 08/09/2024, Expires: 08/13/2025Start: 08-09-2024 End: 44-10-0957NOV W Auto Differential panel - BloodCBC auto differential Lab Routine Preop examination Expected: 08/09/2024 (Approximate), Expires: HealthcareComment on above:Expected: 08/09/2024 (Approximate), Expires: 08/09/2025Start: 08-09-2024 End: 48-26-1007Knopanwkqeshr metabolic 2000 panel - Serum or PlasmaComprehensive metabolic panel Lab Routine Preop examination Expected: 08/09/2024 (Approximate), Expires: 08/09/2025 HealthcareComment on above:Expected: 08/09/2024 (Approximate), Expires: 08/09/2025Start: 08-09-2024 End: 19-27-3511Hpagewdlpht time (PT) in Blood by Coagulation assayProtime-INR Lab Routine Preop examination Expected: 08/09/2024 (Approximate), Expires: 08/09/2025 HealthcareComment on above:Expected: 08/09/2024 (Approximate), Expires: 08/09/2025Start: 08-09-2024 End: 50-43-9040Vjnwzftnlw complete panel - UrineUrinalysis with reflex microscopic Lab Routine Preop examination Expected: 08/09/2024 (Approximate), Expires: 08/09/2025 HealthcareComment on above:Expected: 08/09/2024 (Approximate), Expires: 08/09/2025Start: 08-09-2024 End: 45-53-6813TB Femur and Tibia Views for leg lengthXR lower extremity leg length evaluation Imaging Routine Preop examination Expected: 08/09/2024 (Mari roximate), Expires: 08/09/2025 HealthcareComment on above:Expected: 08/09/2024 (Approximate), Expires: 08/09/2025Start: 08-07-2024 End: 77-66-0438Mckzbmi encounter zgpuvzayf24/23/2024 10:00 AM EDT Office Visit [facility] [address] [place] [phone] Jr. El Ruiz, DO [address] [facility] [address] [place] [address] [facility] ORTHOStart: 06-26-2024 End: 18-20-0595Qkedots encounter pdquerstu85/11/2024 11:15 AM EDT Office Visit [facility] [address] [place] [phone] Jr. El Ruiz, DO [address] [facility] [address] [place] [address] ArrivedNONOVATO COMMUN[facility] ORTHOComment on above: ArrivedStart: 70-30-8365Tnhdd-19 Vaccine ( season)Covid-19 Vaccine ()[facility] Hospitaltart: 53-79-4421Luvzvqjlc vaccinationJORDAN [facility] HealthcareStart: 00-72-7598Uwylanfa blood countHemoglobin/HematocritMcCullough-Hyde Memorial Hospitaltart: 15-90-1570Xyolryuabu measurementSerum CreatinineOhiohealth Van Wert Hospital Start: 31-87-8865XRJLGXNIFW/HEMATOCRITHEMOGLOBIN/HEMATOCRITOhiohealth Van Wert Hospital Start: 14-51-5568ZKJDW CREATININESERUM CREATININEMcCullough-Hyde Memorial Hospitaltart: 55-71-4696Xestbbyw identified in Urine by CultureTrinity Health System West Campustart: 66-54-7012Dzoggxtgb vaccinationINFLUENZA (#1)[facility] Hospitaltart: 05-16-2023 End: 59-25-942058100566-dmiajhrcgfcuou D3 [Mass/volume] in Serum or PlasmaVITAMIN D 25 HYDROXY Lab Routine Chronic kidney disease, unspecified CKD stage Expected: 05/16/2023, Expires: 07/16/2023[facility] Work Phone: comment on above:Expected: 05/16/2023, Expires: 07/16/2023Start: 05-16-2023 End: 30-41-2865MPRNOQUOZF PROTEIN, SERUM (BLOOD)MONOCLONAL PROTEIN, SERUM (BLOOD) Lab Routine Chronic kidney disease, unspecified CKD stage Expected: 05/16/2023, Expires: 07/16/2023[facility] Work Phone: comment on above:Expected: 05/16/2023, Expires: 07/16/2023Start: 05-16-2023 End: 40-30-2791Mqjcoruwmo.intact [Mass/volume] in Serum or PlasmaPTH INTACT BLD Lab Routine Chronic kidney disease, unspecified CKD stage Expected: 05/16/2023, Expires: 07/16/2023[facility] Work Phone: comment on above:Expected: 05/16/2023, Expires: 07/16/2023Start: 67-37-4116NBWKZAM DIRECTIVE DISCUSSIONADVANCE DIRECTIVE DISCUSSIONMcCullough-Hyde Memorial Hospitaltart: 62-46-0639ZYHEYJUQWC ASSESSMENTDEPRESSION ASSESSMENTMcCullough-Hyde Memorial Hospitaltart: 54-81-3048EUDJJFUN SCREENDIABETES SCREEN [facility] Hospitaltart: 03-27-6426Qglvgivt ScreeningDiabetes ScreeningMcCullough-Hyde Memorial Hospitaltart: 40-20-9642IXE Vaccine (1 - 1-dose 75+ series)RSV Vaccine (1 - 1- dose 75+ series)[facility] Hospitaltart: 67-73-4239NKEOK-19 VACCINE (3 - Pfizer series)COVID-19 VACCINE (3 - Pfizer series)[facility] Hospitaltart: 07-17-2020 HEMOGLOBIN/HEMATOCRITHEMOGLOBIN/HEMATOCRITMcCullough-Hyde Memorial Hospitaltart: 94-40-4421XMZHG CREATININESERUM CREATININEMcCullough-Hyde Memorial Hospitaltart: 56-44-5623EIBNSFLCICJT: 65+ (2 - PCV)PNEUMOCOCCAL: 65+ (2 - PCV)[facility] Hospitaltart: 81-49-0702Vnrt Risk ScreeningFall Risk ScreeningACMC Healthcare System Glenbeigh SystemStart: 1996 Administration of varicella zoster vaccineZoster (Shingles) Vaccine (1 of 2) [facility] SystemStart: 75-95-5421IBQNUJWE VACCINE (1 of 2)SHINGRIX VACCINE (1 of 2)[facility]: 25-62-2338DRfI,Tdap and Td Vaccines (1 - Tdap)DTaP,Tdap and Td Vaccines (1 - Tdap)[facility], 1928[facility]1983tart: 53-72-6519Bvsec microalbumin profileMcCullough-Hyde Memorial Hospitaltart: 61-75-5793Fdvzj BMI ScreeningAdult BMI ScreeningProSelect Medical [facility] Hospitaltart: 71-44-2016LKNJMT PCP TEAM CHRONIC DISEASE VISITANNUAL PCP TEAM CHRONIC DISEASE VISITOhio[facility] Start: 94-00-3236Seypnct ScreeningAnxiety ScreeningMcCullough-Hyde Memorial Hospitaltart: 69-43-8853IR CONTROLLED (<130/80)BP CONTROLLED (<130/80)[facility]: 73-12-5813Kftciguohs ScreeningDepression ScreeningMcCullough-Hyde Memorial Hospitaltart: 48-02-6678MOSQAGTET C SCREENINGHEPATITIS C SCREENINGMcCullough-Hyde Memorial Hospitaltart: 99-66-2388Izdflagal C screeningHepatitis C ScreeningMcCullough-Hyde Memorial Hospitaltart: 31-53-8681Fjxgwrkmww ScreeningDepression ScreeningProSelect Medical [facility] Hospitaltart: 22-80-8345Yrpjjac ScreeningTobacco ScreeningFormerly [facility], [facility]1983tart: 1946Medicare Annual Wellness VisitMedicare Annual Wellness VisitUC HealthBacteria identified in Urine by CultureUrine Culture Microbiology Routine Encounter for other preprocedural examination 08/13/2024 6:13 PMEDT [facility] End: 34-22-5110QHP panel - Blood by Automated countCBC Lab Routine Chronic kidney disease, unspecified CKD stage Every 3 months for 4 Occurrences starting 05/16/2023 until 05/16/2024[facility] Work Phone: comment on above:Every 3 months for 4 Occurrences starting 05/16/2023 until 05/16/2024 End: 57-59-9645Haaosjh/Creatinine [Mass Ratio] in UrinePROTEIN CREATININE RATIO Lab Routine Chronic kidney disease, unspecified CKD stage Every 3 months for 4 Occurrences starting 05/16/2023 until 05/16/2024[facility] Work Phone: comrhif on above:Every 3 months for 4 Occurrences starting 05/16/2023 until 05/16/2024 End: 38-88-7920Fhiby function 2000 panel - Serum or PlasmaRENAL FUNCTION PANEL Lab Routine Chronic kidney disease, unspecified CKD stage Every 3 months for 4 Occurrences starting 05/16/[address] [place] [address] Work Phone: comhpiw on above:Every 3 months for 4 Occurrences starting 05/16/2023 until 05/16/2024 End: 29-34-3181Wyqrufsqlr complete panel - UrineURINALYSIS, WITH MICROSCOPIC Lab Routine Chronic kidney disease, unspecified CKD stage Every 3 months for 4 Occurrences starting 05/16/[address] [place] [address] Work Phone: comgxkc on above:Every 3 months for 4 Occurrences starting 05/16/2023 until 05/16/2024 End: 02-33-0406DX KIDNEY/BLADDERUS KIDNEY/BLADDER Radiology Routine Chronic kidney disease, unspecified CKD stage 1 Occurrences starting 05/16/[address] [place] [address] Work Phone: comyrzb on above:1 Occurrences starting 05/16/[address] [place] [address] Immunizations Immunization DateImmunizationNotesCare MxlmeowkCofpeyjk82-88-4774ytrxjfkiv virus vaccine, unspecified formulationJr. Stepanic DO Work Phone: NOID Wrwdevqbgv20-78-8239KEQOO-26 original vaccine, age 12+ yr, monovalent (PFIZER-BIONTECH - PURPLE TOP)Lyndsay Salgado DO Work Phone: [facility] Work Phone: [phone]-94 original vaccine, age 12+ yr, monovalent (PFIZER-BIONTECH - PURPLE TOP)Lyndsay Pachecocarito DO Work Phone: [facility] Work Phone: [phone]logvbiwk polysaccharide vaccine, 23 valentRcheri Salgado DO Work Phone: [facility] Payers DatePayer CategoryPayerPolicy [id number]-[id number] Commercial [employer]emn[employer] Member Subscriber Plan / Payer (Effective 2021-Present) Name: Amina Lim Relation to Subscriber: Self Name: Amina Lim Payer ID: Not on file Type: Not on file Address: [place] [id number] Health InsuranceMEDICAL MUTUAL Member Subscriber Plan / Payer (Effective 2021-Present) Name: Amina Lim Relation to Subscriber: Self Name: Amina Lim Payer ID: Not on file Type: Not on file Address: [address] [id number]42033.1.13.159.2.7.3.706903.315 2011Medicare 1.2.840.379999.1.13.159.2.7.3.714850.315 [id number] 2.840.8.11510[id number] 2.0.5.151359.2889-11-1946 [id number] 2.840.1.748366.3.579.2.97655-74-9648Rsmehpk7467857 2.840.1.117029.3.579.2.38385-88-2025Inkrxbd5659891 2.840.1.346613.3.579.2.69250-09-9328Ydazjqg1664907 2.16840.1.883595.3.579.2.53094-44-3658Qidpeny40072996 2.16.840.1.381809.3.579.2.[id number] 2.16840.1.566695.3.579.2.971440-12-0573Jeavjtu2562844 2.16840.1.742964.3.579.2.479753-08-7147Vmkjwhl5919813 2.840.1.344660.3.579.2.664326-82-5687Augxnek2602356 2.840.1.152739.3.579.2.911270-42-3815Uvhnikr6051984 2.840.1.346901.3.579.2.572542-15-5148Heijxaz9745330 2.840.1.475933.3.579.2.001180-40-9093Xnnhxuw0796184 2.840.1.976172.3.579.2.643915-84-8387Xppvbkj4775457 2.840.1.107809.3.579.2.233439-33-6668Wxjeikl6867657 2.840.1.458760.3.579.2.955586-42-1412Htlfndp5489904 2.16840.1.289822.3.579.2.064655-97-8450Fwociww6418144 2.840.1.860507.3.579.2.307869-99-6355Oojtcyd9283866 2.16840.1.122393.3.579.2.455463-04-3252Mpqgjee3574316 2.16.840.1.236848.3.579.2.891263-83-0148Zvnrkaw4280845 2.16.840.1.069529.3.579.2.175931-25-5226Omdxtao3299284 2.16.840.1.113088.3.579.2.901327-14-1434Gcixxzl8684547 2.16.840.1.217576.3.579.2.829569-64-0119Fkrgrqd5910935 2.16.840.1.056788.3.579.2.206956-63-0732Axptcpe0849231 2.16840.1.047670.3.579.2.164798-75-1139Otmzlqk0041884 2.16840.1.313782.3.579.2.679573-78-6666Nfwkywe6638060 2.16840.1.292189.3.579.2.808895-53-3855Chvcgfh9805786 2.16840.1.371905.3.579.2.202645-38-8783Oigvuyg7672471 2.16840.1.321953.3.579.2.641023-83-5792Khjstaa3716674 2.16840.1.729063.3.579.2.708985-75-0944Ynddqnp6331303 2.16.840.1.691078.3.579.2.716547-66-6925Xyvuiqx0685522 2.16.840.1.935620.3.579.2.519956-64-0368Jmnlyec7052708 2.16.840.1.881460.3.579.2.595393-86-4915Nasziqs9090140 2.16.840.1.843911.3.579.2.586906-23-3712Hkbcbcp8363835 2.16.840.1.893456.3.579.2.387575-41-7026Lmzclos5498201 2.16.840.1.339118.3.579.2.678993-66-5055Jmgafai9784171 2.16.840.1.724205.3.579.2.555897-49-9490Tecpvqp0971413 2.16.840.1.554299.3.579.2.507646-02-3304Sptskrh0038038 2.16.840.1.285897.3.579.2.748697-23-4486Fqjxjnq2501514 2.16.840.1.604345.3.579.2.478292-43-1932Zffpgbk5606591 2.16.840.1.413136.3.579.2.680000-44-5679Jjkpagc1065232 2.16.840.1.571653.3.579.2.7249Sacfqxh21373122 2.16.840.1.272779.3.579.2.531 Social History DateTypeDetailFacilityUnknown if ever smokedNochristian hospital [employer] Other Start: 03-27-2019 End: 67-74-8061Yvx Assigned At BirthMcCullough-Hyde Memorial Hospitaltart: 05-16-2023 End: 86-53-5893Zpyrsry smoking status NHISNever smoked tobaccoOhiohealth Van Wert Hospital Start: 05-16-2023 End: 68-30-2382Uukjpdc use and exposureSmokeless tobacco non-userMcCullough-Hyde Memorial Hospitaltart: 05-16-2023 End: 17-90-0130Jpcenvf intakeCurrent drinker of alcohol (finding)[facility] Hospital[facility]: 03-27-2019 End: 12-41-6157Niwgaxd of Social functionMcCullough-Hyde Memorial Hospitaltart: 43-29-0077YPE2 Aajjt7MepnbjqxqMcCullough-Hyde Memorial Hospitaltart: 24-60-1458Ubbnmrv Comment2 drinks every other day, maybe 3. beer.[facility] Hospitaltart: 98-24-0816For Assigned At BirthMale [facility] Hospitaltart: 05-64-6581Fbvxaz identityIdentifies as male gender (finding)[facility] smoking status NHISTobacco smoking consumption unknownProMePlease SystemStart: 31-46-2544Egi assigned at birthNot on file [place] [employer] Magazinetart: 29-79-9078BuuWchc (finding)[employer] Medical Equipment Procedure CodeEquipment CodeEquipment Original TextEquipment IdentifierDates Xzl-Zt-Z-Kind Implant - [id number]: 61-86-8209Vqwxcva on above: Description: CHECK PRICEHumeral Insert Socket 36 M + [id number]: 91-60-0324Cbvqkb Rsp 36mm Standard Socket Semiconstrain Humerus - [id number]: 64-72-1831Isir Altivate Djo Surgical 12 Standard 108mm Humeral Sterile Shoulder - [id number]: 39-68-9759Wscozemrt Rsp P2 30mm Glenoid Sterile - [id number]_lbaJdthk: 12-04-1780Ehquw Rsp 5mm 18mm Bone Lock Glenoid Baseplate Shoulder - [id number]: 30-57-2383Fybdg Rsp 5mm 26mm Bone Lock Glenoid Baseplate Shoulder - [id number]: 22-88-4603Uogtkszes Rsp 6.5mm Wiggins 30mm Glenoid - [id number]_ddeXavft: 16-89-1560Izty Rsp 36mm Neutral Glenoid Retain Screw - [id number] Start: 77-59-8262Wbwr Rsp 36mm Neutral Glenoid Retain Screw - [id number]: 81-99-0537Vhggm Rsp 5mm 30mm Bone Lock Glenoid Baseplate Shoulder - [id number]: 59-78-4939Gxmrw Rsp 5mm 30mm Bone Lock Glenoid Baseplate Shoulder - [id number]: 70-00-7988Faoje Rsp 5mm 18mm Bone Lock Glenoid Baseplate Shoulder - [id number]: 85-29-2426Sdukq Rsp 5mm 22mm Bone Lock Glenoid Baseplate Shoulder - [id number]_impStart: 21-06-1696Lrgcg Rsp 5mm 26mm Bone Lock Glenoid Baseplate Shoulder - [id number]: 29-65-2030Ussnc Rsp 5mm 18mm Bone Lock Glenoid Baseplate Shoulder - [id number]_yhaXolod: 07-16-2019 Clinical Notes 12-19-2016 to 06-27-2025 Note Date & OsidQhwqVqkdazjl18-82-1444 NoteUT Cardiology - [facility] Subjective Amina Lim is a 80 [...] platelets 233 next l (more content not included)...[facility]01-23-2025 History of Present illness Narrative* LORELEI Soto - 11/07/2024 8:15 AM EST Images from the original note were not included. HISTORY OF PRESENT ILLNESS: POST OP PT Amina Lim is an 79 y.o. @ male. (EST PT) S/P (L) TKA 08/22/24 (11 WKS ) XRAYS DONE 10/03/24 IN [facility] 10/18/24 DOING WELL. S/P EXTENDED PT X2 [...] for requiring urgent evaluation. documented in this encounterHCA Midwest DivisionQgolbrrdri26-22-1712 NoteUT Cardiology - [facility] Subjective Amina Lim is a 79 [...] Hyperlipidemia, used to be (more content not included)...[facility]01-07-2025 History of Present illness Narrative* Lyndsay Salgado, - 10/22/2024 10:20 AM EST Images from the original note were not included. Department of Kidney Medicine Medical Specialties [facility] SERVICE DATE: 10/22/2024 SERVICE TIME: 10:27 [...] renal function. Following with cardiology at the [facility]. No longer taking NSAIDs after his bilateral [...] Take 1 tablet by mouth once daily. Otbmn-5-KQG-EPA-Fish Oil (FISH OIL) 1,000 mg (120 mg-180 mg) cap Take 1 g by mouth once daily. lovastatin (MEVACOR) 20 mg tablet Take 20 mg by mouth daily at bedtime. multivitamin (MULTIPLE VITAMINS) tablet Take 1 tablet by mouth once daily. [place] 160 mg capsule Take 160 mg by [...] studies, and office notes were reviewed in [facility] Sodium (mmol/L) Date Value 06/14/2023 134 (L) [...] which included preparing to see the patient, rhbi-pk-bjjg patient care, completing clinical documentation, and obtaining and/or reviewing separately obtained history. Visit CPLX Inherent E&M Associated with [facility] ([id number]) SIGNATURE: Lyndsay Salgado DO MHSA PATIENT NAME: Amina Lim DATE: October 22, 2024 TIME: 10:48 AM CC: PRIMARY CARE PHYSICIAN: Narciso Bullock MD documented in this encounterOhiohealth Van Wert Hospital01-07-2025 NoteHNO ID: [id number] Author: LYNDSAY SALGADO DO Service: ? Author Type: Physician Type: Progress Notes Filed: 10/22/2024 10:48 Note Text: Department of Kidney Medicine Medical Specialties [facility] SERVICE DATE: 10/22/2024 SERVICE TIME: 10:27 [...] renal function. Following with cardiology at the [facility]. No longer taking NSAIDs after his bilateral [...] Take 1 tablet by mouth once daily. Fojbm-4-UJO-EPA-Fish Oil (FISH OIL) 1,000 mg (120 mg-180 mg) cap Take 1 g by mouth once daily. lovastatin (MEVACOR) 20 mg tablet Take 20 mg by mouth daily at bedtime. multivitamin (MULTIPLE VITAMINS) tablet Take 1 tablet by mouth once daily. [place] 160 mg capsule Take 160 mg by [...] respiratory effort. Lungs karely (more content not included)...[facility]01-02-2025 Telephone encounter Note* Telephone Encounter - Porfirio [...] them. (Covering for Dr Salgado) Thanks Cassidy [facility]01-02-2025 Miscellaneous Notes* Telephone Encounter - Porfirio [place] [...] for Dr Salgado CKD lab work ordered Casisdy Arita DO October 17, 2024, 2:15 PM * Telephone Encounter - Cassidy Arita DO - 10/17/2024 2:11 PM EST ----- Message from RHODA Han sent at 10/17/2024 1:10 PM EST ----- Regarding: Lab orders for upcoming appt w/Dr. Salgado Contact: Patient is requesting labs for upcoming appt on 10/22/24. Labs need to be fax[facility] to [facility] @ [phone]. Call pt when done Danielle Blanchard documented in this encounterOhiohealth Van Wert Hospital01-02-2025 Telephone encounter Note * Telephone Encounter - Cassidy Arita DO - 10/17/2024 2:11 PM EST Covering for Dr Salgado CKD lab work ordered Cassidy Arita DO October 17, 2024, 2:15 PM [facility]01-02-2025 Telephone encounter Note* Telephone Encounter - Cassidy Arita DO - 10/17/2024 2:11 PM EST ----- Message from RHODA Han sent at 10/17/2024 1:10 PM EST ----- Regarding: Lab orders for upcoming appt w/Dr. Salgado Contact: Patient is requesting labs for upcoming appt on 10/22/24. Labs need to be faxed to [facility] @ [phone]. Call pt when done Danielle Blanchard [facility]12-24-2024 History of Present illness Narrative* Shirlene Blakely, [...] stretch into flexion PROM; tibial extension mobs Alf Goals: Increase ROM left knee to 0-110* [...] below. Physician Signature: Date: documented in this encounterHCA Midwest DivisionBtvdosritt84-91-6897 History of Present illness Narrative* Shirlene Blakely, [...] 2-3x/weeks x 6 weeks documented in this encounterHCA Midwest DivisionFvnjhpipvr62-24-1567 History of Present illness Narrative* LORELEI Soto - 10/03/2024 8:15 AM EST Images from the original note were not included. HISTORY OF PRESENT ILLNESS: POST OP PT Amina Lim is an 79 y.o. @ male. (EST PT) S/P (L) TKA 08/22/24 (6WKS). XRAYS DONE TODAY, 10/03/24 IN [facility] DOING WELL. CONTINUES TO HAVE SOME DISCOMFORT - TAKING PERCOCET 1/2 Q 6 HRS ; CONTINUES TO ICE. CONTINUES PHYSICAL THERAPY 2x WEEKLY @ [place] - NOTES INCREASING ROM & STRENGTH. SOME [...] for requiring urgent evaluation. documented in this encounterHCA Midwest DivisionDfczcysfas93-33-5090 History of Present illness Narrative* Shirlene Blakely, [...] 2-3x/weeks x 6 weeks documented in this encounterHCA Midwest DivisionJwdjuftjdw00-60-8884 History of Present illness Narrative* Roseanne Sousa, [...] camping, dogs Employment retired 15 years from [employer] INTERVENTIONS: X ( ) manual therapy X 40/10 minutes therapeutic exercises for ROM and strengthening X ( ) minutes modalities: ice PT Assessment: No change in knee flexion/extension today. Did tolerate all exercise well in PT. Ice at home. Plan: PT 2-3x/weeks x 6 weeks documented in this encounterHCA Midwest DivisionYiuyszfrnw24-90-8152 History of Present illness Narrative* Roseanne Sousa, [...] camping, dogs Employment retired 15 years from [employer] INTERVENTIONS: X 20 minutes of manual therapy to increase ROM X 30 minutes therapeutic exercises for ROM and strengthening X 10 minutes modalities: ice PT Assessment: Therapy Diagnosis: s/p left TKA with weaknessk swelling and pain Wax Pumper Goals: Increase ROM left knee to 0-110* [...] below. Physician Signature: Date: documented in this encounterHCA Midwest DivisionNzgrhvktjy70-70-4788 History of Present illness Narrative* Roseanne Sousa, [...] camping, dogs Employment retired 15 years from [employer] INTERVENTIONS: X 30 minutes therapeutic exercises for ROM and strengthening X minutes modalities: ice, e-stim prn PT Assessment: Therapy Diagnosis: 2. 5 weeks post op left TKA Functional Limitations: Alf Goals: Increase ROM left knee to 0-110* [...] below. Physician Signature: Date: documented in this encounterHCA Midwest DivisionYquycowpbv56-78-1644 History of Present illness Narrative* LORELEI Soto [...] STARTING OUTPT THERAPY NEXT WEEK @ [facility] [place]. NOTES INCREASING ROM & STRENGTH - USING [...] Valgus: negative Other Erythema: absent Scars: present ([place] present, removed, no dehiscence or drainage) Sensation: [...] left Z96.652 2. Post-operative pain G89.18 HYDROcodone-acetaminophen ([place]) 5-325 MG tablet PLAN: Assessment & Plan [...] for requiring urgent evaluation. documented in this encounterHCA Midwest DivisionEncczydkdq99-53-4975 Instructions* Patient Instructions* LORELEI Soto - 09/05/2024 [...] submerging wound pending recheck. documented in this [facility]11-14-2024 Telephone encounter Note* Telephone Encounter - José Manuel Wylie NP - 08/29/2024 2:44 PM EST Patient home PT notified us of need for post op pain rx refill. PDMP reviewed. [place] [address]Pxkdurhmxc53-53-2630 Miscellaneous Notes* Telephone Encounter - José Manuel Wylie NP - 08/29/2024 2:44 PM EST Patient home PT notified us of need for post op pain rx refill. PDMP reviewed. documented in this [facility]11-06-2024 Telephone encounter Note* Telephone Encounter - José Manuel Wylie NP - 08/21/2024 8:03 AM EST Post op pain rx. PDMP reviewed [address]Qjlqltwdsm87-91-7376 Miscellaneous Notes* Telephone Encounter - José Manuel Wylie NP - 08/21/2024 8:03 AM EST Post op pain rx. PDMP reviewed documented in this [facility]10-30-2024 Telephone encounter Note* Telephone Encounter - Eva Rosenberg MA - 08/14/2024 11:10 AM EDT Acknowledged, thank you. [facility] DivisionOvnszyyqdj91-61-6348 Miscellaneous Notes* Telephone Encounter - Eva Rosenberg MA - 08/14/2024 11:10 AM EDT Acknowledged, thank you. * Telephone Encounter - Elizabeth Petersen - 08/14/2024 11:06 AM EDT Patient left vm to let us know he has been approved through medicare to have his LT TKA done on 08/22 with . documented in this [facility]10-30-2024 Telephone encounter Note* Telephone Encounter - Elizabeth Petersen - 08/14/2024 11:06 AM EDT Patient left vm to let us know he has been approved through medicare to have his LT TKA done on 08/22 with . [facility] DivisionVqlffkgxrl71-68-7729 NoteXR BONE LENGTH STUDY Bone length evaluation History: Osteoarthritis, limb length and alignment, knee pain Comparison: None Findings: Standing frontal view of the bilateral lower extremities obtained from the iliac crest through the feet for limb length and alignment without marker device. Impression: Severe Arthritis, osteophytes, joint space narrowing Left knee shows rury-xf-znow medial compartment arthritis with varus angulation measuring 4 degrees. Appropriate alignment of the right femoral-tibial angle with 2 degrees valgus and a unremarkable prosthesis of the knee Finalized by Micheal Johnson MD on 08/14/2024 5:58 [facility] 08-13-2024 History of Present illness Narrative* LORELEI [...] MG tablet Every 24 hours Iron Polysacch Rysyi-D10-WB (Poly-Iron 150 Forte) 150-0.025-1 MG capsule 1 [...] Ambulatory referral to Physical Therapy Iron Polysacch Jcqzc-R19-JX (Poly-Iron 150 Forte) 150-0.025-1 MG capsule Chlorhexidine Gluconate (Hibiclens) 4 % solution 2. Primary osteoarthritis of left knee M17.12 Ambulatory referral to Physical Therapy Iron Polysacch Yohhu-J59-SR (Poly-Iron 150 Forte) 150-0.025-1 MG capsule Chlorhexidine [...] 10:30AM - Bret Jennings. documented in this encounterHCA Midwest DivisionXslcghtnhz95-17-0939 History of Present illness Narrative* Jr. El Matos Joseph, DO - 08/07/2024 10:00 AM EDT Images from the original note were not included. HISTORY OF PRESENT ILLNESS: EST PT Amina Lim is an 79 y.o. @ male. (R) KNEE (EST PT) S/P (R) TKA 04/04/24 (17WKS 6DAYS) XRAYS, 05/15/24 IN [facility] NO MDP / PREDNISONE FINISHED THERAPY (10 SESSIONS) @ [facility] NO PAIN MGMT DOING WELL. CONTINUES HEP / RECUMBENT BIKE - NOTES GOOD ROM ; DENIES ANY WEAKNESS. DENIES ANY SWELLING. STATES HE IS VERY PLEASED WITH SURGERY. CONTINUES TO USE VOLTAREN GEL. (L) KNEE (EST PT) RECHECK (L) KNEE ; HERE TO DISCUSS SURGICAL OPTIONS XRAYS, STANDING AP 05/15/24 IN [facility] NO MRI NO MDP / PREDNISONE [...] years old, or requires discharged to a prison facility, the patient may require to have additional inpatient hospital stay following the surgery. Physical therapy is contraindicated in this patient's case because of ojum-tp-pppv articulation of the patient's knee. El Ruiz D.O. documented in this encounterHCA Midwest DivisionTojiytpbrs48-55-3448 History of Present illness Narrative* Jr. El Ruiz DO - 06/26/2024 11:15 AM EDT Images from the original note were not included. HISTORY OF PRESENT ILLNESS: EST PT Amina Lim is an 79 y.o. @ male. (R) KNEE (EST PT ; LAST APPT W/ [facility]) S/P (R) TKA 04/04/24 (11WKS 6DAYS) XRAYS, 05/15/24 IN [facility] NO MDP / PREDNISONE FINISHED THERAPY (10 SESSIONS) @ [facility] NO PAIN MGMT CONTINUES TO HAVE SOME DISCOMFORT - RATES 4-5/10 ON PAIN SCALE ; WORSE WITH PROLONGED ACTIVITY. FINISHED PHYSICAL THERAPY @ [facility], CONTINUES HEP - NOTES INCREASING ROM & STRENGTH ; AMBULATES W/O AID. SOME SWELLING - NO LONGER ICING / ELEVATING. NOTES DIFFICULTY SLEEPING / WAKES HS. USINGVOLTAREN GEL ; TAKING TYLENOL. (L) KNEE (EST PT ; LAST APPT W/ [facility]) NEW COMPLAINT, (L) KNEE DISCOMFORT. SYMPTOMS FOR MANY YEARS, WORSE SINCE HAVING (R) TKA / HAVING TO COMPENSATE XRAYS, STANDING AP 05/15/24 IN [facility] NO MRI NO MDP / PREDNISONE [...] up. El Ruiz D.O. documented in this encounterHCA Midwest DivisionMckdofitsi31-95-7389 History of Present illness Narrative* Emily Mercado - 05/24/2023 9:51 AM EDT POPULATION HEALTH NAVIGATION OUTREACH Action/[facility] [place] Support: Called pt to schedule an appt [...] 24, 2023 9:52 AM documented in this encounterOhiohealth Van Wert Hospital08-01-2023 Instructions* Patient Instructions* Lyndsay Salgado DO - [...] have your physicians fax over your records [phone] Make an appointment with cardiology for slow [...] will be greatly appreciated. documented in this encounterOhiohealth Van Wert Hospital08-01-2023 History of Present illness Narrative* Lyndsay Salgado DO - 05/16/2023 9:[address] [facility] SERVICE DATE: 05/16/2023 [...] that he was previously following with a repair operator that went over his labs every visit. States that his renal function was worsening and he was taken off a water pill that improved his renal function. His repair operator stopped seeing patients in the office [...] Take 1 tablet by mouth once daily. Wbosm-9-GSK-EPA-Fish Oil (FISH OIL) 1,000 mg (120 mg-180 mg) cap Take 1 g by mouth once daily. Lecithin 1,200 mg cap Take 1 capsule by mouth once daily. lovastatin (MEVACOR) 20 mg tablet Take 20 mg by mouth daily at bedtime. multivitamin (MULTIPLE VITAMINS) tablet Take 1 tablet by mouth once daily. [place] 160 mg capsule Take 160 mg by [...] 16, 2023 TIME: 10:06 AM OFFICE NUMBER: [phone] CC: REFERRING PROVIDER: Narciso Bullock MD PRIMARY CARE PHYSICIAN: Narciso Bullock MD documented in this encounterOhiohealth Van Wert Hospital11-22-2022 Evaluation note* Encounter Date Diagnosis Assessment Notes [...] Dr. Bullock for NSAIDs alternative like Tramadol [facility] Other 12-08-2021 Evaluation note* Encounter Date Diagnosis [...] He did try Tylenol with no effect. [facility] Other 03-06-2017 History of Past illness Narrative* Problem Noted DateDiagnosed DateResolved DatePrimary osteoarthritis of left shoulder Prostate tvsfpf92Peyronie's disease documented as of this encounter (statuses as of 05/16/2023) [facility]03-06-2017 History of Past illness Narrative* ProblemNoted Date Diagnosed DateResolved DatePrimary osteoarthritis of left uongsgtm64/06/2017 06/25/2019Prostate xzkuby49Peyronie's exxpgjd3507/08/2009 06/25/2019documented as of this encounter (statuses as of 06/26/2023) [facility] note* Diagnosis Chronic kidney disease, unspecified CKD stage- Primary Bradycardia Other specified cardiac dysrhythmias Generalized pain Anemia of renal disease Anemia in chronic kidney disease Primary hypertension Unspecified essential hypertension documented in this encounter [facility] noteNo assessment information availableLicking Memorial Hospital Work Phone: Evaluation note* Diagnosis Acute pain of right knee- Primary History of right knee joint replacement Primary osteoarthritis of left knee documented in this encounter [facility] HealthcareEvaluation note* Diagnosis Preop examination- Primary Unspecified pre-operative examination Primary osteoarthritis of left knee Eczema, unspecified type documented in this encounter [facility] HealthcareEvaluation note* Diagnosis Post-operative pain- Primary Other acute postoperative pain documented in this encounter [facility] HealthcareEvaluation [facility]* Diagnosis S/P TKR (total knee replacement), left- Primary Post-operative pain Other acute postoperative pain documented in this encounter [facility] HealthcareEvaluation note* Diagnosis Post-operative pain Other acute postoperative pain documented in this encounter [facility] HealthcareEvaluation note* Diagnosis S/P total knee replacement, left- Primary Acute postoperative pain of left knee documented in this encounter [facility] HealthcareEvaluation note* Diagnosis S/P total knee replacement, left- Primary Acute postoperative pain of left knee documented in this encounter [facility]Evaluation note* Diagnosis S/P total knee replacement, left- Primary Acute postoperative pain of left knee S/P total knee replacement, left- Primary Acute postoperative pain of left knee documented in this encounter [facility]Evaluation note* Diagnosis S/P total knee replacement, left- Primary Acute postoperative pain of left knee documented in this encounter [facility]* Diagnosis S/P TKR (total knee replacement), right- Primary Primary osteoarthritis of left knee documented in this encounter [facility]Evaluation note* Diagnosis Acute postoperative pain of left knee- Primary S/P total knee replacement, left documented in this encounter [facility]* Diagnosis Acute postoperative pain of left knee- Primary S/P total knee replacement, left documented in this encounter [facility]* Diagnosis Acute postoperative pain of left knee- Primary S/P total knee replacement, left documented in this encounter [facility]* Diagnosis S/P TKR (total knee replacement), left- Primary Acute pain of left knee documented in this encounter [facility] HealthcareEvaluation note* Diagnosis Pre-operative clearance- Primary Preoperative [...] CKD (HCC)- Primary [facility] Diagnosis Acute postoperative pain of left knee- Primary S/P total knee replacement, left documented in this encounter [facility]Evaluation note* Diagnosis Pre-operative clearance- Primary Preoperative [...] specified cardiac dysrhythmias [facility] Diagnosis S/P TKR (total knee replacement), left- Primary documented in this encounter [facility] HealthcareEvaluation note* Diagnosis Encounter for other preprocedural examination [facility] Diagnosis Encounter for other preprocedural examination documented [facility] Narrative - Reported* Type Description Date Medical History hypertension Medical HistorycholecystecomyMedical HistoryArthritis left shoulder. s/p trauma long time agoMedical HistoryHyperlipidemiaMedical HistorySleep apnea with CPAP Surgical [id number] HistoryLeft shoulder replacement [id number] HistoryRadiation seeds put in [id number] History SHOULDER REPLACEMENT RIGHT07/16/2019Surgical HistoryNEW LENS PUT IN HIS RIGHT EYE 12/2019Hospitalization Historysee above Yobongo Other History of Present illness Narrative* Shirlene [...] 2-3x/weeks x 6 weeks documented in this encounterNOThree [facility] HealthcareInstructionsNot on filedocumented in this encounterProMercy Health St. Rita'S Medical CenterReason for referral (narrative)* Diagnostic Procedure Only (Routine) - Pending ReviewSpecialtyDiagnoses / Procedures Referred By ContactReferred To ContactUS IMAGING Diagnoses Chronic kidney disease, unspecified CKD stage Procedures US KIDNEY/BLADDER US RETROPERITONEAL REAL TIME W/IMAGE COMPLETE Lyndsay Salgado DO [address] [place] [address] [facility] Referral IDStatusReasonStart DateExpiration DateVisits RequestedVisits [id number] Review Auto-Generated Referral * Consult, Test, Treat (Routine) - AuthorizedSpecialtyDiagnoses / Procedures Referred By ContactReferred To ContactPain Management Diagnoses Generalized pain Procedures CONSULT TO PAIN MGT OFFICE/OUTPATIENT [facility] 60-74 MINUTES Lyndsay Salgado DO [address] [place] [address] Referral IDStatusReasonStart DateExpiration DateVisits RequestedVisits [id number] PCP Requested Referral / * Consult, Test, Treat (Routine) - AuthorizedSpecialtyDiagnoses / Procedures Referred By ContactReferred To ContactCardiology Diagnoses Bradycardia Procedures CONSULT TO CARDIOLOGY OFFICE/OUTPATIENT [facility] 60-74 MINUTES Lyndsay Salgado DO [address] [place] [address] [facility]Status[facility] DateExpiration DateVisits RequestedVisits [id number] PCP Requested Referral [facility] for visit Narrative* Rehabilitation - Outpatient (Routine) - AuthorizedSpecialtyDiagnoses / ProceduresReferred By Contact Referred To ContactPhysical Therapy Diagnoses S/P total knee replacement, left Procedures [place] OFFICE[facility]OUTPAT[facility] Queta Tilley PA [address] [facility] [address] [place] [address] Phone: tel: fax: Seth Ragland, PT [address] [place] [address] Phone: tel: fax: Referral IDStatusReasonStart DateExpiration DateVisits RequestedVisits [id number] Consult and Treat / [facility] HealthcareReason for visit Narrative* Rehabilitation - Outpatient (Routine) - AuthorizedSpecialtyDiagnoses / ProceduresReferred By ContactReferred To ContactPhysical Therapy Diagnoses S/P total knee replacement, left Procedures [place] [facility] Queta Tilley PA [address] [place] [address] Phone: tel: fax: Seth Ragland, PT [address] [place] [address] Phone: tel: fax: Referral IDStatusReasonStart DateExpiration DateVisits RequestedVisits [id number] Consult and Treat [facility] HealthcareReason for visit Narrative* Rehabilitation - Outpatient (Routine) - AuthorizedSpecialtyDiagnoses / ProceduresReferred By ContactReferred To ContactPhysical Therapy Diagnoses Presence of left artificial knee joint Procedures [place] [facility]UAL [facility]AP[facility] TQS 1/> REGIONS EACH 15 MINUTES Queta Tilley PA [address] [place] [address] Phone: tel: fax: Seth Ragland, PT [address] [place] [address] Phone: tel: fax: Referral IDStatusReasonStart DateExpiration DateVisits RequestedVisits [id number] Consult and Treat [facility] Healthcare Summary Purpose Family History No Family History Records Found Relationship Condition Age at Onset Recorded Date/T bridger father Heart disease Unknown DeceasedUnknownfamily memberDeceasedUnknownNot SpecifiedDiabetes mellitusUnknown Malignant neoplasmUnknownsisterHeart diseaseUnknown Advance Directives No Advanced Directives Records Found Advance Directive Response Recorded Date/ Time Advance Directives No August 11, 2020 1:09pm Hospital Course Note HNO ID: [id number] Author: Jae mcgrath (Res) MD Shi Service: [...] section and content) DATE CREATED AUTHOR 12/10/2018 [facility] DATE CREATED AUTHOR AUTHOR'S ORGANIZ ATION 07/18/2019 [facility] DATE CREATED AUTHOR AUTHOR'S ORGANIZ ATION 07/01/2020 [facility] DATE CREATED AUTHOR AUTHOR'S ORGANIZ ATION 01/23/2021 [facility] DATE CREATED AUTHOR AUTHOR'S ORGANIZ ATION 03/24/2023 [facility] DATE CREATED AUTHOR AUTHOR'S ORGANIZ ATION 03/20/2024 [facility] DATE CREATED AUTHOR AUTHOR'S ORGANIZ ATION 08/15/2024 [facility] DATE CREATED AUTHOR AUTHOR'S ORGANIZ ATION 10/25/2024 [facility] DATE CREATED AUTHOR AUTHOR'S ORGANIZ ATION 11/09/2024 [facility] DATE CREATED AUTHOR AUTHOR'S ORGANIZ ATION 07/02/2025 [facility] REASON FOR VISIT (unrecogniz ed section and content) ReasonCommentsNew IkkdumoAxvbtuDatuvhwcBwid-cwLxgwLdfyiaIxerkmfsHjq-fq Exam ReasonOnset EamqUutkingwBsvlmii86/30/2024ReasonCommentsPost-opReasonCommentsPain Post-opReasonCommentsPainReasonCommentsFollow Up Source Comments (unrecognize d section and content) In the event this informatio n is protected by the Federal Confidentiality of Alcohol and Drug Abuse Patient Records regulations: The Federal rules restrict any use of the information to criminally investigate or prosecute any alcohol or drug abuse patient.[facility] HospitalIn the event this information is protected by the Federal Confidentiality of Alcohol and Drug Abuse Patient Records regulations: The Federal rules restrict any use of the information to criminally investigate or prosecute any alcohol or drug abuse patient.[facility] HospitalIn the event this information is protected by the Federal Confidentiality of Alcohol and Drug Abuse Patient Records regulations: The Federal rules restrict any use of the information to criminally investigate or prosecute any alcohol or drug abuse patient.[facility] HospitalIn the event this information is protected by the Federal Confidentiality of Alcohol and Drug Abuse Patient Records regulations: The Federal rules restrict any use of the information to criminally investigate or prosecute any alcohol or drug abuse patient.[facility] HospitalIn the event this information is protected by the Federal Confidentiality of Alcohol and Drug Abuse Patient Records regulations: The Federal rules restrict any use of the information to criminally investigate or prosecute any alcohol or drug abuse patient.[facility] Care Teams (unrecognized sec tion and [...] DateEnd Date Narciso Bullock MD [address] [place] [facility] [address] PCP - [facility]09/25/23Team MemberRelationshipSpecialtyStart Date End Date Narciso Bullock MD [address] [place] [facility] [address] PCP - [facility] Tblxdfhz05/11/23Team MemberRelationshipSpecialtyStart Date End Date Nacriso Bullock MD [address] [place] [facility] [place] [address] [facility] - [facility] Scuhmxfr11/11/23Team MemberRelationshipSpecialtyStart Date End Date Narciso Bullock MD [address] [place] [facility] [address] PCP - [facility] Umwroygf62/11/23Team MemberRelationshipSpecialtyStart Date End Date Narciso Bullock MD [address] [place] [facility] [address] PCP - [facility] Ztsalmlb45/11/23Team MemberRelationshipSpecialtyStart Date End Date Narciso Bullock MD [address] [place] [facility] [place] [address] PCP - Generalmily Craeqtxn61/11/23Team MemberRelationshipSpecialtyStart Date End Date Narciso Bullock MD [address] [place] [facility] [place] [address] PCP - Generalmily Sdtxvxwi57/11/23Team MemberRelationshipSpecialtyStart Date End Date Narciso Bullock MD [address] [place] [facility] [address] PCP - Generalmily Pwrzuxrr54/11/23Team MemberRelationshipSpecialtyStart Date End Date Narciso Bullock MD [address] [place] [facility] [place] [address] PCP - Generalmily Zmerefbi37/11/23Team MemberRelationshipSpecialtyStart Date End Date Narciso Bullock MD [address] [place] [facility] [address] PCP - GeneralFamily Rtwfxlvf69/11/23Team MemberRelationshipSpecialtyStart Date End Date Narciso Bullock MD [address] [place] [facility] [address] PCP - [facility]Mer[facility] Centerly Oltyeawf68/11/23Team MemberRelationshipSpecialtyStart Date End Date Narciso Bullock MD [address] [place] [facility] [place] [address] PCP - GeneralFamily Lbyosurn65/11/23Team MemberRelationshipSpecialtyStart Date End Date Narciso Bullock MD [address] [place] [facility] [address] PCP - GeneralFamily Xgxifswt10/11/23Team MemberRelationshipSpecialtyStart Date End Date Narciso Bullock MD [address] [place] [facility] [address] PCP - GeneralFamily Gjbkogrl78/11/23Team MemberRelationshipSpecialtyStart Date End Date Narciso Bullock MD [address] [place] [facility] [address] PCP - Generalmily Ibrzaxlf86/11/23Team MemberRelationshipSpecialtyStart Date End Date Narciso Bullock MD [address] [place] [facility] [address] PCP - GeneralFamily Priyegwz42/11/23Team MemberRelationshipSpecialtyStart Date End Date Narciso Bullock MD [address] [place] [facility] [address] PCP - GeneralFamily Cynyexmz89/11/23Team MemberRelationshipSpecialtyStart Date End Date Narciso Bullock MD [address] [place] [facility] [address] PCP - GeneralFamily Rackjucd70/11/23Team MemberRelationshipSpecialtyStart Date End Date Narciso Bullock MD [address] [facility] [place] [address] PCP - GeneralFamily Lnaszhce25/11/23Team MemberRelationshipSpecialtyStart Date End Date Narciso Bullock MD PCP - General07/06/09Team MemberRelationshipSpecialtyStart DateEnd Date Narciso Bullock MD [address] [facility] [place] [address] PCP - GeneralFamily Kldcfiri32/11/23Team MemberRelationshipSpecialtyStart Date End Date Narciso Bullock MD PCP - General07/06/09Team MemberRelationshipSpecialtyStart DateEnd Date Narciso uBllock MD [address] [facility] [place] [address] PCP - Generalmi Rykpozol59/11/23Team MemberRelationshipSpecialtyStart Date End Date Narciso Bullock MD [address] [place] [place] [address] PCP - Generalmily Lxollpgh63/29/24Team MemberRelationshipSpecialtyStart Date End Date Narciso Bullock MD [address] [place] [address] PCP - Generalmi Cqsdlfbe79/29/24Team MemberRelationshipSpecialtyStart Date End Date Narciso Bullock MD [address] [place] [place] [address] PCP - GeneralFamily Ifccapqo01/29/24 Goals (unrecognized section and content) Goals may [...] BE BASED ON THE PRIMARY CLINICAL RECORDS. [employer]. provides no warranty or guarantee of the accuracy or completeness of information in this document.
[2025-09-23 10:39] LABS: Free T3 2.17 pg/mL (2.18-3.98); Thyroid Stimulating Hormone 1.870 uIU/mL (0.358-3.740)
== END 2025-09-23 09:32 | disposition home or self-care (01) ==
LOC: LAB 09:38
PROVIDERS: PCP Family Medicine; Visit Provider Family Medicine
DX: E03.9 Hypothyroidism, unspecified (principal)
CPT/HCPCS: 36415; 84436; 84443; 84481

== ENCOUNTER 2025-10-13 09:25 | Outpatient (OUT) | payer MEDICARE, OTHER, SELFPAY ==
--- OUTSIDE RECORDS SUMMARY | 2025-10-13 09:32 | XMS_ITS | CCD ---
Author Organization [facility] Care Team Providers Care Pediatric Surgeon Name Role Phone RIZWANATRELL TELLEZ Jarrell Referring [...] Unavailable Narciso Bullock MD Primary Care Provider [phone] MD Narciso Bullock Primary Care Provider [phone] CHRISTINE Tilley Attending Provider Queta Tilley Attending Unavailable Queta Tilley Admitting Unavailable Narciso Bullock Primary Care Unavailable Narciso Bullock MD Primary Care Provider [phone] QUETA TILLEY Referring Unavailable NARCISO BULLOCK Primary Care Unavailable QUETA TILLEY Attending Unavailable QUETA TILLEY Referring Unavailable NARCISO BULLOCK Primary Care Unavailable Narciso Bullock MD Primary Care Provider [phone] NARCISO BULLOCK Primary Care Unavailable LYNDSAY SALGADO [...] Matos Attending Unavaila ble TILLEYQUETA Attending Unavailable TLILEYQUETA Attending Unavailable SOUSAROSEANNE Attending Unavailable TILLEY, QUETA [...] Unavailable Narciso Bullock MD Primary Care Provider [phone] PHOENIX URIBE Attending Unavailable PHOENIX URIBE Attending Unavailable Allergies Allergy ClassificationReported Allergen(s)Allergy TypeDate of OnsetReaction(s) Facility (20 sources)Acetaminophen / oxyCODONE; Translations: [OXYCODONE-ACETAMINOPHEN] Drug Otrauqf07-58-7761UlstyOH[facility] (20 sources)Other; Translations: [OTHER]Propensity to adverse reactions 88-25-6230QcbtmCIYB Healthcare Medications Current Medications MedicationDrug Class(es)DatesSig (Normalized)Sig (Original)acetaminophen 325 mg / HYDROcodone bitartrate 5 mg oral tablet (9 sources)Opioid AgonistStart: 09-17-2024 End: 26-66-5237utti 1 tablet by mouth every six hours for painHYDROcodone- acetaminophen (Udall) 5-325 MG tablet Indications: S/P total knee replacement, left Take 1 tablet by mouth every 6 (six) hours if needed for severe pain for up to 5 days 20 tablet 09/17/2024 09/22/2024 ActiveStart: 08-29-2024 End: 57-00-3989wwuu 1 tablet by mouth every six hours for painHYDROcodone- acetaminophen (Udall) 5-325 MG tablet Indications: Post-operative pain Take 1 tablet bymouth every 6 (six) hours if needed for severe pain for up to 5 days 20 tablet 09/05/2024 09/10/2024 ActiveStart: 08-21-2024 End: 97-72-5777nffl 1 tablet by mouth every six hours for painHYDROcodone- acetaminophen (Udall) 5-325 MG tablet Indications: Post-operative pain Take 1 tablet bymouth every 6 (six) hours if needed for severe pain for up to 5 days 20 tablet 08/21/2024 08/26/2024 ActiveAcidophilus Extra Strength - (2 sources)Acidophilus Extra Strength - as directed Orally ActiveAlfalfa 500 MG (2 sources)Ravalli 500 MG as directed Orally Activeartemether / lumefantrine (1 source)AntimalarialArtemether-Lumefantrine 20-120 MG as directed Orally Activechlorhexidine gluconate 40 mg/ml medicated liquid soap (3 sources)Start: 08-13-2024 End: 97-17-1851Wkakbxawiuymr Gluconate (Hibiclens) 4 % solution Indications: Preop [...] and 1 drop before bedtime. Active End: 94-83-7359zsuv 1 drop(s) into the eye(s) four times dailydiclofenac (VOLTAREN) 0.1 % ophthalmic solution 1 Drop four times daily. 10/22/2024 Discontinued (Other)diclofenac (VOLTAREN ARTHRITIS PAIN) 1 % topical gel Apply to affected area two times a day. Active End: 23-47-6760llgq 1 tablet by mouth twice dailydiclofenac, EC, (VOLTAREN) 25 mg EC tablet Take 25 mg by mouth twice daily. 10/22/2024 Discontinuedtake 1 tablet by mouth every twelve hoursDiclofenac Sodium 75 MG 1 tablet Orally Twice a day ActiveComment on above:Take 25 mg by mouth twice daily.ferrous sulfate 325 mg oral tablet (20 sources)Start: 12-43-7110bsdv 1 tablet by mouth twice dailyferrous sulfate 325 mg (65 mg iron) tablet Take 1 tablet by mouth two times a day. 10/22/2024 ActiveFish Oils (2 sources)take 1 capsule by mouth once dailyFish Oil 1000 MG 1 capsule Orally Once a day Activefolic acid 1 mg / polysaccharide iron complex 150 mg / vitamin b12 0.025 mg oral capsule (12 sources)Vitamin Y14Kxkvm: 08-13-2024 End: 92-66-2628swzv 1 tablet by mouth once dailyIron Polysacch Mxbrx-J48-IW (Poly-Iron 150 Forte) 150-0.025-1 MG capsule Indications: Preop examination , Primary osteoarthritis of left knee Take 1 tablet by mouth Daily 30 capsule 1 08/13/2024 09/12/2024 Activegabapentin 300 mg oral capsule (20 sources)Anti-epileptic AgentStart: 08-21-2024 End: 44-00-1010cegb 1 capsule by mouth in the morninggabapentin (Neurontin) 300 MG capsule Indications: Post-operative pain Take 1 capsule (300 mg) by mouth in the morning and 1 capsule (300 mg) before bedtime. Do all this for 7 days. 14 capsule 08/30/2024 ActiveStart: 04-03-2024 End: 69-40-0629mias 1 capsule by mouth in the morninggabapentin [...] oral tablet (20 sources)Angiotensin 2 Receptor BlockerStart: 24-85-8591vhhzeslgjl (Avapro) 150 MG tablet 1 (one) time each day at the same time 12/08/2023 Active Multivitamins (2 sources)Multivitamins as directed Orally Activequercetin 50 mg oral tablet (1 source)take 1 tablet by mouth once dailyQuercetin 50 MG 1 tablet Orally Once a day ActiveSaw Plaistow 540 mg (2 sources)take 1 capsule by mouth once dailySaw Plaistow 540 mg 1 Capsule Orally Daily Activespironolactone 50 mg oral tablet (20 sources)Aldosterone Antagonisttake 1 tablet by mouth in the morning spironolactone (Aldactone) 50 MG tablet Take 50 mg by mouth in the morning. ActiveComment on above:Take 50 mg by mouth once daily.tamsulosin hydrochloride 0.4 mg oral capsule (20 sources)alpha-Adrenergic BlockerStart: 96-60-9086qpvs 1 capsule by mouth twice dailytamsulosin (FLOMAX) 0.4 mg Take 1 capsule by mouth two times a day. 10/22/2024 ActiveStart: 06-26-8979hgxsnciiuy (Flomax) 0.4 MG 24 hr capsule 08/14/2023 ActiveStart: 09-30-2016 End: 79-78-8031grwi 0.4 mg by mouth once dailytamsulosin ER [...] acetonide 1 mg/ml topical cream (20 sources)CorticosteroidStart: 10-70-3950bipbykslivwjd (Kenalog) 0.1 % cream Indications: Eczema, unspecified type Apply topically 2 (two) times a day 15 g 1 08/13/2024 Activeturmeric extract 500 mg oral capsule (2 sources)Turmeric 500 MG as directed Orally Activeubidecarenone 200 mg oral capsule (2 sources)take 1 capsule by mouth every twenty-four jphomOeA82 200 MG 1 capsule with a meal [...] 500 mg oral tablet (1 source) End: 22-89-7272oymqyqhdazvof (TYLENOL EXTRA STRENGTH) 500 mg tablet Take 1,000 mg by mouth as needed. 0 05/16/2023iscontinuedComment on above:Take 1,000 mg by mouth as needed.ascorbic acid 1000 mg oral tablet (5 sources)Vitamin C End: 72-44-2211qjlg 1 tablet by mouth three times weeklyAscorbic [...] Inhibitor, Nonsteroidal Anti-inflammatory Drug Start: 07-16-2019 End: 16-93-4408ewbq 1 tablet by mouth twice dailyaspirin, enteric coated (ASPIRIN, ENTERIC COATED) 81 mg EC tablet Take 1 tablet by mouth twice daily for 14 days. 28 tablet 07/16/2019 10/22/2024 Discontinued End: 02-22-9350fekz 1 tablet by mouth once dailyaspirin, enteric [...] capsule (2 sources)Nonsteroidal Anti-inflammatory DrugStart: 08-21-2024 End: 20-40-6933lemj 1 capsule by mouth once dailycelecoxib (CeleBREX) 200 MG capsule Indications: Post-operative pain Take 1 capsule (200 mg) by mouth Daily for 14 days 14 capsule 08/21/2024 09/04/2024 Expireddocusate sodium 100 mg oral capsule (1 source)Start: 07-16-2019 End: 23-07-9850bvna 1 capsule by mouth twice dailydocusate sodium (COLACE) 100 mg capsule Take 1 capsule by mouth twice daily. 60 capsule 1 07/16/2019 05/16/2023 DiscontinuedComment on above:Take 1 capsule by mouth twice daily. Garlic preparation (1 source)Non-Standardized Food Allergenic Extract End: 37-61-5489ntto 1 tablet by mouth once dailyGARLIC ORAL Indications: Prostate cancer (HCC) Take 1 tablet by mouth once daily. 0 05/16/2023 Disco ntinuedComment on above:Take 1 tablet by mouth once daily.Lactobac no.41- Bifidobact no.7 (PROBIOTIC-10) 70 mg (3 billion cell) cap (5 sources) End: 48-42-5186pgvs 1 capsule by mouth once dailyLactobac no.41-Bifidobact [...] 1200 mg oral capsule (1 source) End: 22-20-7390ghuj 1 capsule by mouth once dailyLecithin 1,200 mg cap Take 1 capsule by mouth once daily. 0 05/16/2023 DiscontinuedComment on above:Take 1 capsule by mouth once daily.losartan potassium 25 mg oral tablet (8 sources)Angiotensin 2 Receptor BlockerStart: 10-03-2023 End: 76-99-4071oykd 3 tablets by mouth once dailylosartan (COZAAR) 25 mg tablet Take 3 tablets by mouth once daily. 10/03/2023 10/22/2024 DiscontinuedStart: 57-07-2542nyxx 1 tablet by mouth once dailylosartan (COZAAR) 100 mg tablet Indications: Prostate cancer (HCC) Take 100 mg by mouth once daily.0 09/23/2016 Activetake 1 tablet by mouth once dailyLosartan Potassium 50 MG TAKE 1 TABLET BY MOUTH DAILY for 90 ActiveComment on above:Take 100 mg by mouth once daily. lovastatin 20 mg oral tablet (7 sources)HMG-CoA Reductase Inhibitor End: 67-40-2007herl 1 tablet by mouth once daily at bedtimelovastatin (MEVACOR) 20 mg tablet Take 20 mg by mouth daily at bedtime. 10/22/2024 Discontinued Comment on above:Take 20 mg by mouth daily at bedtime.MINERALS ORAL (5 sources) End: 77-96-8761lzbh 1 tablet by mouth once dailyMINERALS ORAL Take 1 tablet by mouth once daily. 10/22/2024 Discontinuedtake 1 tablet by mouth once daily MINERALS ORAL Take 1 tablet by mouth once daily. Activetake 1 tablet by mouth once dailyMINERALS ORAL Take 1 tablet by mouth once daily. 0 ActiveComment on above:Take 1 tablet by mouth once daily.multivitamin (MULTIPLE VITAMINS) tablet (5 sources) End: 32-80-9301gcfi 1 tablet by mouth once dailymultivitamin (MULTIPLE [...] (5 sources)RNA Synthetase Inhibitor AntibacterialStart: 06-25-2019 End: 58-33-8293jwcdrmvpj (BACTROBAN) 2 % ointment Apply 0.5 inch with cotton swab (Q-tip) to each nostril in the morning and evening for 5 days prior to and including day of surgery. 22 g 06/25/2019 10/22/2024 DiscontinuedComment on above:Apply 0.5 inch with cotton swab (Q-tip) to each nostril in the morning and evening for 5 days priorto and including day of surgery.Vhvkt-2-LCJ-EPA-Fish Oil (FISH OIL) 1,000 mg (120 mg-180 mg) cap (5 sources) End: 27-36-5526tobl 1 capsule by mouth once mieyaWshdz-0-SSY-EPA-Fish Oil (FISH OIL) 1,000 mg (120 mg-180 mg) cap Take 1 g by mouth once daily. 10/22/2024 Discontinuedtake 1 capsule by mouth once tctbaIpzeu-9-QJE-EPA-Fish Oil (FISH OIL) 1,000 mg (120 mg-180 mg) cap Take 1 g by mouth once daily. Activetake 1 capsule by mouth once ddjbtRixov-7-DUZ-EPA-Fish Oil (FISH OIL) 1,000 mg (120 mg- 180 mg) cap Take 1 g by mouth once daily. 0 ActiveComment on above:Take 1 g by mouth once daily.prasterone 50 mg oral tablet (7 sources) End: 52-31-4816ykzg 1 tablet by mouth once dailyprasterone, dhea, (DHEA) 50 mg tab Take 50 mg by mouth once daily. 10/22/2024 DiscontinuedDHEA 50 50 MG as directed Orally TWICE A DAY ActiveDHEA 50 50 MG as directed Orally once a day ActiveComment on above:Take 50 mg by mouth once daily.Saw Plaistow 160 mg capsule (5 sources) End: 97-84-8006gqaz 1 capsule by mouth three times dailySaw Plaistow 160 mg capsule Take 160 mg by mouth three times daily. 10/22/2024 Discontinuedtake 1 capsule by mouth three times dailySaw Plaistow 160 mg capsule Take 160 mg by mouth three times daily. Activetake 1 capsule by mouth three times dailySaw Plaistow 160 mg capsule Take 160 mg by mouth three times daily. 0 ActiveComment on above:Take 160 mg by mouth three times daily.turmeric-turmeric root extract 450-50 mg cap (5 sources) End: 34-64-9514tdlt 1 capsule by mouth once dailyturmeric-turmeric root [...] once daily.Vitamin B Complex (7 sources) End: 20-10-4998slgg 1 tablet by mouth once dailyvitamin b [...] daily.VITAMIN E ACETATE ORAL (5 sources) End: 98-53-4277fyod 1200 mg by mouth twice dailyVITAMIN E [...] ClassificationProblemDateDocumented DateEpisodic/ChronicAllergic reactions (2 sources)Eczema; Translations: [Dermatitis, unspecified]89-40-6177Arcegxvl Cardiac dysrhythmias (1 source)Supraventricular tachycardia; Translations: [SVT (supraventricular tachycardia) (HCC)]64-03-2810ZxxkmvwCarwiin kidney disease (11 sources)Chronic kidney disease stage 3; Translations: [Chronic kidney disease, stage 3 (moderate)]Onset: 815467-41-6348IawyzheTkvress kidney disease (9 sources)Chronic kidney disease; Translations: [Chronic kidney disease, stage 3a]Onset: 09-22-2021 Resolved: 14-41-1885Ivsregwrgw and other anemia (4 sources)Anemia of renal disease; Translations: [Anemia in chronic kidney disease]44-54-1062EwiluvlQuvfiniiil and other anemia (2 sources)Anemia in chronic kidney diseaseOnset: 09-22-2021 Resolved: 08-08-5740QrysqvmEydhulmige and other anemia (2 sources)Iron deficiency anemia; Translations: [Iron deficiency anemia, unspecified]EpisodicDisorders of lipid metabolism (11 sources)Pure hypercholesterolemia, unspecified; Translations: [Hyperlipidemia, unspecified]Onset: 777724-61-6700YcyvqpbKlpysnsdr hypertension (9 sources)Essential hypertension; Translations: [Essential (primary) hypertension]Onset: 133649-32-7718PkhghyhKdzmdvyhpgepvokx hemorrhage (2 sources)Hematochezia; Translations: [Melena]EpisodicHeart valve disorders (2 sources)Nonrheumatic aortic (valve) stenosis; Translations: [Nonrheumatic aortic (valve) stenosis]Onset: 57-21-2713XdgapyaBppzkytrnxfq with complications and secondary hypertension (4 sources)Hypertensive renal disease; Translations: [Hypertensive chronic kidney disease with stage 1 throughstage 4 chronic kidney disease, or unspecified chronic kidney disease]Onset: 09-22-2021 Resolved: 28-74-0053VsnnmjlHlnsgddwc neoplasm without specification of site (20 sources)Malignant neoplastic disease; Translations: [Malignant (primary) neoplasm, unspecified]Onset: 198194-17-3167WdiqxiuBtyjnennkvvahj (20 sources)Primary osteoarthritis, right shoulder; Translations: [Localized, primary osteoarthritis of the shoulder region]Onset: 12-19-2016 Resolved: 84-67-9285RjmqayxLcaxm aftercare (20 sources)Patient encounter status; Translations: [Aftercare following joint replacement surgery]Onset: 718516-13-0946DddvmriAniyu connective tissue disease (1 source)Presence of left artificial shoulder joint; Translations: [Presence of left artificial shoulder joint]Onset: 67-59-1909CnkdhniSfuln connective tissue disease (5 sources)History of operative procedure on shoulder; Translations: [Presence of unspecified artificial shoulder joint]Onset: 010079-06-5482RxymxyiGnyrr connective tissue disease (5 sources)History of left shoulder arthroplasty; Translations: [Presence of left artificial shoulder joint]Onset: 247190-59-2391MwroigvCslvz connective tissue disease (20 sources)Artificial knee joint present; Translations: [Presence of right artificial knee joint]Onset: 268110-70-0520YyoehtmFveza connective tissue disease (20 sources)History of total knee arthroplasty; Translations: [Presence of left artificial knee joint]Onset: 921458-42-1313XpxkycaGplvz diseases of kidney and ureters (1 source)Hyperparathyroidism due to renal insufficiency; Translations: [Secondary hyperparathyroidism of renal origin]54-29-2447LmfcwbpYoqrr nervous system disorders (4 sources)Postoperative pain ; Translations: [Other acute postprocedural pain] 44-78-4236SnoqozlfRhiyb nervous system disorders (20 sources)Other acute postprocedural pain; Translations: [Pain in joint, lower leg]Onset: 842605-94-0435GvcrhphsNatoh non-traumatic joint disorders (3 sources)Pain in right knee; Translations: [Pain in joint, lower leg] 99-91-5004PxucflrkAxmvamxp codes; unclassified (1 source)Generalized aches and pains; Translations: [Pain, unspecified] 40-05-2164BlnwgaeiNujgdxoqxvpv (3 sources)CONTACT W/AND (SUSP) EXPOS COVID-19; Translations: [CONTACT W/AND (SUSP) EXPOS COVID-19]Onset: 47-40-2509Xfusstmqhfsw (1 source)COUGH, UNSPECIFIED; Translations: [COUGH, UNSPECIFIED]Onset: 35-17-1637Qxrisxwosgaa (2 sources)Preprocedural examination zejb14-75-7491Rhjaqydiomwv (1 source)Supraventricular tachycardia, unspecified; Translations: [Supraventricular tachycardia, unspecified]Onset: 06-21-2023 Past or Other Problems Problem ClassificationProblemDateDocumented DateEpisodic/ChronicCancer of prostate (2 sources)Malignant tumor of prostate; Translations: [Malignant neoplasm of prostate]Onset: 07-05-2016 Resolved: 958178-49-3530UrqfktjBrpoqqi dysrhythmias (3 sources)Bradycardia; Translations: [Bradycardia, unspecified]Onset: 191148-28-7712VqhqkeifUrilfsqy mellitus without complication (1 source)Other abnormal glucose; Translations: [OTHER ABNORMAL GLUCOSE]Onset: 69-08-0600ZkvjwkdoVgufb valve disorders (2 sources)Cardiac murmur, unspecified; Translations: [Cardiac murmur, unspecified]Onset: 48-12-3177JklrcvdxVjmdyci and fatigue (1 source)Other fatigue; Translations: [OTHER FATIGUE]Onset: 84-35-6278Nfrysewb Other aftercare (1 source)Other half-way (current) drug therapy; Translations: [OTH PRISON CURRENT DRUG THERAPY]Onset: 02-15-0306SwiulekxZuiqr male genital disorders (2 sources)Induratio penis plastica; Translations: [Induration penis plastica] Onset: 07-08-2009 Resolved: 161354-84-2043ClinpdkXeetz non-traumatic joint disorders (1 source)Pain in unspecified joint; Translations: [PAIN IN UNSPECIFIED JOINT] Onset: 11-62-4890UjbxuqfcAqrcv non-traumatic joint disorders (5 sources)Shoulder pain; Translations: [Pain in unspecified shoulder]Onset: 110187-37-9948DawignoxDquvt screening for suspected conditions (not mental disorders or infectious disease) (2 sources)Encounter for screening for malignant neoplasm of prostate; Translations: [Encounter for screening for malignant neoplasm of rectum]Onset: 20-59-3012JlkrfxubVpniy upper respiratory disease (1 source)Nasal congestion; Translations: [NASAL CONGESTION]Onset: 10-07-2022 EpisodicUnclassified (1 source)CONTACT W/AND (SUSP) EXPOS COVID-19; Translations: [CONTACT W/AND (SUSP) EXPOS COVID-19]Onset: 92-26-2885Izolvlsgbciu (1 source)Supraventricular tachycardia, unspecified; Translations: [Supraventricular tachycardia, unspecified]Onset: 10-28-2024 Results Test NameValueInterpretationReference RangeFacilityOffice Visiton 06-27-2025 Follow-up [id number] Amina Lim 1945 M Date Provider Department Center 06/27/2025 [facility] CHAU Family History Problem Relation Age of Onset Other Father Lupus Father Family Status - Relation Status Age at Mother Father Level of Service:55951 [place] OFFICE/OUTPATIENT ESTABLISHED MOD MDM 30 MIN Reason for Visit and Comments: Hypertension [108600] Hyperlipidemia [182] Bradycardia [700895] SVT [Other] Follow-up [025769] - 6 months with labs and [facility]Normal[facility]36on 05-27-595815Deshyjzpv echo result from 03/31/2025: MD Lucia Chun MA Inform patient that his echo showed moderate aortic valve stenosis. Repeat echo in about 6 months to follow-up on progression of this. Patient informed. Told him we could order the echo when he sees Dr. Uribe next month.[facility]36on 92-27-643279Qsiynfpyr lab results from 10/29/2024: MD Lucia Chun MA His LDL cholesterol is mildly elevated 112. The goal to be 100 or below. Advised patient to follow low-fat diet and recheck lipids in 3 months. Spoke with patient and he will have repeat labs prior to his next apt in April 2025. Order mailed to him.NormalSelect Medical Specialty Hospital - [facility] NorthOffice Visit on 50-10-6575Kbrvke-up [id number] Amina Lim 1945 M Date Provider Department Center 10/28/2024 [facility] CHAU Family History Problem Relation Age of Onset Other Father Lupus Father Family Status - Relation Status Age at Father Level of Service:33135 [place] OFFICE/OUTPATIENT ESTABLISHED MOD MDM 30 MIN Reason for Visit and Comments: Hypertension [999695] - Had labs 2 weeks ago. Heart Murmur [124] - Denies chest pain, SOB, palpitations, and lightheadedness/syncope. SVT [Other] Hyperlipidemia [182] - He took himself off lovastatin 3-4 months ago. No lipid since Sep 2023. Denies side effects from statin.NormalSelect Medical Specialty Hospital - Cincinnati NorthCNOVon 04-84-3354ZAKSWifrfq Visit (KIDFRKassie) AMINA LIM ([id number]) 1945 M Date Time Provider Department 10/22/24 10:20 AM LYNDSAY SALGADO During your visit today, we recorded the following information about you: Pulse Blood pressure Weight Height 64/minute 130/69 92.5 kg 1.791 m Lyndsay Salgado DO 10/22/2024 10:48 AM Signed Department of [facility] [place] [facility] SERVICE DATE: 10/22/2024 SERVICE TIME: 10:27 [...] renal function. Following with cardiology at the [facility]. No longer taking NSAIDs after his [...] Take 1 tablet by mouth once daily. Syfau-7-AGC-EPA-Fish Oil (FISH OIL) 1,000 mg (120 mg-180 mg) cap Take 1 g by mouth once daily. lovastatin (MEVACOR) 20 mg tablet Take 20 mg by mouth daily at bedtime. multivitamin (MULTIPLE VITAMINS) tablet Take 1 tablet by mouth once daily. Saw Plaistow 160 mg capsule Take 160 mg by [...] Nose, and Throat: Heari (more content not included)...NormalHarrison Community HospitalPNon 73-60-3711NQXPNdmwuwxui (MIDMAV) AMINA LIM ([id number]) 1945 M Date Time Provider Department 10/17/24 CASSIDY ARITA MIDCTV During your visit today, we recorded the following information about you: Cassidy Arita DO 10/17/2024 2:11 PM Signed ----- Message from RHODA Han sent at 10/17/2024 1:10 PM EST ----- Regarding: Lab orders for upcoming appt w/Dr. Slagado Contact: Patient is requesting labs for upcoming appt on 10/22/24. Labs need to be faxed to [facility] @ [phone]. Call pt when done ThanksDanielle Diana, DO 10/17/2024 2:17 PM Signed Covering for Dr Salgado CKD lab work ordered Cassidy Arita DO October 17, 2024, 2:15 PM Porfirio Hamilton MA 10/17/2024 5:05 PM Addendum Orders printed and faxed to number provided below. Confirmation received. Pt notified DEVIN Angel Diana, DO [facility] Pool1 hour ago (2:17 PM) Please fax lab orders to [facility] and let patient know that I have [...] 10/21/2024 8:21 AM Signed Fax received from [facility] lab in regards to pt PTH lab [...] [N18.30] Order(s):ALBUMIN/CREATININE RATIO, URINE [SQUACR] Order #: [id number] FUTURE PROTEIN / CREATININE RATIO [SQPRATIO] Order #: [id number] FUTURE URINALYSIS WITH MICROSCOPIC, REFLEX CULTURE [SQUACII] Order #: [id number] FUTURE RENAL FUNCTION PANEL [SQRFP] Order #: [id number] FUTURE VITAMIN D 25 HYDROXY [SQVITD] Order #: [id number] FUTURE PTH INTACT [SQPTHI] Order #: [id number] FUTURE COMPLETE BLOOD COUNT [SQCBC] Order #: [id number] FUTURE Prescriptions as of 10/21/2024 - losartan [...] 1 tablet by mouth once daily. - Rxkgs-8-XDN-EPA-Fish Oil (FISH OIL) 1,000 mg (120 mg-180 mg) cap Take 1 g by mouth once daily. - lovastatin (MEVACOR) 20 mg tablet Take 20 mg by mouth daily at bedtime. - multivitamin (MULTIPLE VITAMINS) tablet Take 1 tablet by mouth once daily. - Saw Plaistow 160 mg capsule Take 160 mg by [...] 07/16/2019 Encounter Status:Closed by PORFIRIO HAMILTON on 10/17/24[facility] Knee - left 1 or 2 Viewson 10-03-1578Zlgwhbn Result: AP and Lateral of left knee: Surgical position and alignment of prosthetic components without evidence of loosening or wear to femora, tibial or patellar components, The alignment appears to be anatomic. No evidence of accelerated or asymmetric wear to tibial tray or patella button. No evidence of fracture or dislocation. Impression: Unremarkable left total knee arthroplastyDoctors Hospital of Springfield HealthcareRadiology Study observation (narrative)[facility] 91-93-2600aTOL Coag (PPP) [Time]35 [facility] HospitalComment on above:NEW REFERENCE RANGEaPTT Coag (Bld) [Time]35 [facility] HospitalComment on above:NEW REFERENCE RANGE PERFORMED AT [address] [place] [address] CBC AND AUTO DIFFon 03-74-8103OYVMEKJK BASOPHIL0.1 X10E9/LNormal0.0-0.2Pro[facility] Hospital Los AngelesComment on above:Performed By: #### [id number] #### [facility] ([id number]) [address] [place] [address], [place] [address] #### CBCA, PINR, CMP #### [facility] ([id number]) [address], [address] [place], [place] [address]SYQFKCBI NEUTROPHIL5.3 X10E9/LNormal1.5-6.6ProThe University Of [facility] Health League City CampusComment on above:Performed By: #### [id number] #### [facility] [facility] ([id number]) [address] [place] [address] 30012 #### CBCA, PINR, CMP #### [facility] ([id number]) [address] [facility], [address] [place], [place] [address]Qbwgdfcky/100 WBC (Bld)0.8 %NormalOhioHealth Grady Memorial Hospital Comment on above:Performed By: #### 07024-6 #### [facility] ([id number]) [address] [place] [address] 50148 #### CBCA, PINR, CMP #### [facility] ([id number]) [address] [facility], [address] [place], [place] [address]Bovzqculdbh (Bld) [#/Vol]0.2 10*3/uLNormal0.0-0.4ProThe University Of [facility] Health League City CampusComment on above:Performed By: #### 56650-8 #### [facility] ([id number]) [address] [place] [address] 40234 #### CBCA, PINR, CMP #### [facility] ([id number]) [address] [facility], [address] [place], [place] [address]Gkxzwaotidk/100 WBC (Bld)2.1 %NormalOhioHealth Grady Memorial Hospital Comment on above:Performed By: #### 35096-3 #### [facility] ([id number]) [address] [place] [address] 32236 #### CBCA, PINR, CMP #### [facility] ([id number]) [address] [facility], [address] [place], [place] [address]Hdcimvlcvlu distribution width (RBC) [Ratio]13.9 %Normal 11.5-15.0ProThe University Of [facility] Health League City CampusComment on above:Performed By: #### 22579-6 #### [facility] ([id number]) [address] [place] [address] 07628 #### CBCA, PINR, CMP #### [facility] ([id number]) [address] [facility], [address] [place], [place] [address]Aenhuzvhsv (Bld) [Volume fraction]39.0 %Khqzdp99-67GoeOgjtquThe University Of [facility] Health League City CampusComment on above:Performed By: #### 19748-5 #### [facility] ([id number]) [address] [place] [address] 48483 #### CBCA, PINR, CMP #### [facility] ([id number]) [address] [facility], [address] [place], [place] [address]Cfdaztkhfl (Bld) [Mass/Vol]13.3 g/oCMvkmlm17.0-17.0OhioHealth Grady Memorial HospitalComment on above:Performed By: #### 69738-3 #### [facility] ([id number]) [address] [place] [address] 60809 #### CBCA, PINR, CMP #### [facility] ([id number]) [address] [facility], [address] [place], [place] [address]Xbmjdxjchmx (Bld) [#/Vol]1.8 10*3/uLNormal1.0-3.5PWest Jefferson Medical Centerica Children'S Hospital Los AngelesComment on above:Performed By: #### 15759-6 #### [facility] ([id number]) [address] [place] [address] 77898 #### CBCA, PINR, CMP #### [facility] ([id number]) [address] [facility], [address] [place], [place] [address]Ezsehicnnpr/100 WBC (Bld)22.6 %NormalOhioHealth Grady Memorial Hospital Comment on above:Performed By: #### 54016-3 #### [facility] ([id number]) [address] [place] [address] 52825 #### CBCA, PINR, CMP #### [facility] ([id number]) [address], [address] [place], [place] [address]UOX (RBC) [Entitic mass]31.5 kkRcrcbb73-81RrzPchbfxThe University Of [facility] Health League City CampusComment on above:Performed By: #### 62437-9 #### [facility] ([id number]) [address] [place] [address] 92557 #### CBCA, PINR, CMP #### [facility] ([id number]) [address], [address] [place], [place] [address]GOUV (RBC) [Mass/Vol]34.0 g/yBSfopcq90-94DkcAuauaqThe University Of [facility] Health League City CampusComment on above:Performed By: #### 91331-0 #### [facility] ([id number]) [address] [place] [address] 48086 #### CBCA, PINR, CMP #### [facility] ([id number]) [address], [address] [place], [place] [address]WHE (RBC) [Entitic vol]93 zRMzxlmp68-155WzmGepvjk Fremont HospitalComment on above:Performed By: #### 66468-0 #### [facility] ([id number]) [address] [place] [address] 89368 #### CBCA, PINR, CMP #### [facility] ([id number]) [address], [address] [place], [place] [address]Fqallbjfl (Bld) [#/Vol]0.7 10*3/uLNormal0-0.9OhioHealth Grady Memorial HospitalComment on above:Performed By: #### 95374-8 #### [facility] ([id number]) [address] [place] [address] 71332 #### CBCA, PINR, CMP #### [facility] ([id number]) [address], [address] [place], [place] [address]Bzuslifjt/100 WBC (Bld)8.2 %[facility] Comment on above:Performed By: #### 72344-0 #### [facility] ([id number]) [address] [place] [address] 95806 #### CBCA, PINR, CMP #### [facility] ([id number]) [address], [address] [place], [place] [address]Zxwnyomqybp/100 WBC (Bld)66.3 %[facility] Comment on above:Performed By: #### 37661-9 #### [facility] ([id number]) [address] [place] [address] 72954 #### CBCA, PINR, CMP #### [facility] ([id number]) [address], [address] [place], [place] [address]Nvomgvqt mean volume (Bld) [Entitic vol]8.2 fLNormal7-12 [facility] Grady Memorial HospitalComment on above:Performed By: #### 92784-8 #### [facility] ([id number]) [address] [place] [address] 29845 #### CBCA, PINR, CMP #### [facility] ([id number]) [address], [address] [place], [place] [address]Nlthuewvg (Bld) [#/Vol]227 10*3/sZWmrlvs791-050WhfIknfce [facility]remont HospitalComment on above:Performed By: #### 01574-2 #### [facility] ([id number]) [address] [place] [address] 14786 #### CBCA, PINR, CMP #### [facility] ([id number]) [address] [facility], [address] [place], [place] [address]IDW COUNT4.22 X10E12/LNormal4.10-5.70[facility] Comment on above:Performed By: #### 06017-6 #### [facility] ([id number]) [address] [place] [address] 77577 #### CBCA, PINR, CMP #### [facility] ([id number]) [address] [facility], [address] [place] [address]RIE (Bld) [#/Vol]8.0 10*3/uLNormal4.0-11.0OhioHealth Grady Memorial HospitalComment on above:Performed By: #### 61687-3 #### [facility] ([id number]) [address] [place] [address] 74793 #### CBCA, PINR, CMP #### [facility] ([id number]) [address] [facility], [address] [place], [place] [address]XLO auto differentialon 52-94-2092Stqovciuj (Bld) [#/Vol]0.1 10*3/uLProMedica Health SystemBasophils/100 WBC (Bld)0.8 %[facility]Medica Health SystemEosinophils (Bld) [#/Vol]0.2 10*3/uLProMedica Health SystemEosinophils/100 WBC (Bld)2.1 %[facility]ica Health SystemErythrocyte distribution width (RBC) [Ratio]13.9 %11.5 - 15.0 %[facility]ica Health SystemHematocrit (Bld) [Volume fraction]39 %39 - 49 %[facility] Health SystemHemoglobin (Bld) [Mass/Vol]13.3 g/dL13.0 - 17.0 g/dLElyria Memorial HospitalLymphocytes (Bld) [#/Vol]1.8 10*3/uL [facility] Memorial HospitalLymphocytes/100 WBC (Bld)22.6 %[facility] HospitalH (RBC) [Entitic mass]31.5 pg27 - 34 pgPCleveland Clinic Mentor HospitalMCHC (RBC) [Mass/Vol]34 g/dL32 - 36 g/dLElyria Memorial HospitalMCV (RBC) [Entitic vol]93 fL 80 - 100 [facility] CenterMonocytes (Bld) [#/Vol]0.7 10*3/uLElyria Memorial HospitalMonocytes/100 WBC (Bld)8.2 %[facility] Memorial HospitalNeutrophils (Bld) [#/Vol]5.3 10*3/uLElyria Memorial HospitalNeutrophils/100 WBC (Bld)66.3 % [facility] Memorial HospitalPlatelet mean volume (Bld) [Entitic vol]8.2 fL7 - 12 fL [facility] Memorial HospitalPlatelets (Bld) [#/Vol]227 10*3/[facility] RBC (Bld) [#/Vol]4.22 10*6/[facility] CenterWBC corrected for nucl RBC Auto (Bld) [#/Vol]8[facility] State HospitalCOMPREHENSIVE METABOLIC PANELon 36-27-7277Lkzaebe [Mass/Vol]4.1 g/dLNormal3.2-5.3PMercy Health St. Anne HospitalComment on above:Performed By: #### 31025-0 #### [facility] ([id number]) [address] [place] [address], [place] [address] #### CBCA, PINR, CMP #### [facility] ([id number]) [address] [place] [address], [address] [place], [place] [address]VZJ [Catalytic activity/Vol]40 U/OPkyzns80-901YbwKemlqpOhioHealth Grady Memorial HospitalComment on above:Performed By: #### 12305-8 #### [facility] ([id number]) [address] [place] [address] 40665 #### CBCA, PINR, CMP #### [facility] ([id number]) [address] [facility], [address] [place] [address]PHT [Catalytic activity/Vol]21 U/LNormal0-40ProThe University Of [facility] Branch Health League City CampusComment on above:Performed By: #### 72697-0 #### [facility] ([id number]) [address] [place] [address] 26062 #### CBCA, PINR, CMP #### [facility] ([id number]) [address] [facility], [address] [place], [place] [address]Qjeki gap [Moles/Vol]7 mmol/LNormal5-15ProThe [facility] Of [facility] Health League City CampusComment on above:Performed By: #### 60582-2 #### [facility] ([id number]) [address] [place] [address] 40215 #### CBCA, PINR, CMP #### [facility] ([id number]) [address] [facility], [address] [place], [place] [address]XAN [Catalytic activity/Vol]17 U/LNormal0-41ProThe [facility] City CampusComment on above:Performed By: #### 88591-4 #### [facility] ([id number]) [address] [place] [address] 83753 #### CBCA, PINR, CMP #### [facility] ([id number]) [address] [facility], [address] [place], [place] [address]Vmwrvlpkm [Mass/Vol]0.4 mg/dLNormal0.3-1.2ProMedica [facility]'S Hospital Los AngelesComment on above:Performed By: #### 63391-7 #### [facility] ([id number]) [address] [place] [address] 39688 #### CBCA, PINR, CMP #### [facility] ([id number]) [address] [facility], [address] [place] [address]Qmqenyj [Mass/Vol]9.1 mg/dLNormal8.5-10.5PMercy Health St. Anne HospitalComment on above:Performed By: #### 25047-6 #### [facility] ([id number]) [address] [place] [address] 66135 #### CBCA, PINR, CMP #### [facility] ([id number]) [address] [facility], [address] [place] [address]Nnoiwrme [Moles/Vol]100 mmol/AGdrewn52-286OopCnatdzThe University Of [facility] Health League City CampusComment on above:Performed By: #### 58118-8 #### [facility] ([id number]) [address] [place] [address] 13440 #### CBCA, PINR, CMP #### [facility] ([id number]) [address] [facility], [address] [place] [address]II1 [Moles/Vol]27 mmol/TSsjicf69-41ObiYquyjoMercy Health St. Anne Hospital Comment on above:Performed By: #### 50680-4 #### [facility] ([id number]) [address] [place] [address] 71685 #### CBCA, PINR, CMP #### [facility] ([id number]) [address] [facility], [address] [place], [place] [address]Ktrzntnrsj [Mass/Vol]1.21 mg/dLNormal0.60-1.30ProThe University Of [facility] Health League City CampusComment on above:Result Comment: METHOD TRACEABLE TO IDMS STANDARD Performed By: #### 67714-6 #### [facility] ([id number]) [address] [place] [address] 98269 #### CBCA, PINR, CMP #### [facility] ([id number]) [address] [place], [place] [address]CUI/1.73 sq M.predicted among non-blacks MDRD (S/P/Bld) [Vol rate/Area]61 mL/min/{1.73_m2}Normal>59ProThe University Of [facility] Health League City CampusComment on above:Result Comment: Reported eGFR is based on the CKD-EPI 2020 equation that does not use a race coefficient.Performed By: #### 61439-7 #### [facility] ([id number]) [address] [place] [address] 47921 #### KRYS PINR, CMP #### [facility] ([id number]) [address] [place], [place] [address]Bdgwynp [Mass/Vol]87 mg/jAIxmxpj80-90FvfJakvvhThe University Of [facility] Comment on above:Performed By: #### 85400-8 #### [facility] ([id number]) [address] [place] [address] 03550 #### KRYS PINR, CMP #### [facility] ([id number]) [address] [place], [place] [address]Vgezaoumd [Moles/Vol]4.2 mmol/LNormal3.5-5.0ProThe [facility] Of [facility] City CampusComment on above:Performed By: #### 41333-4 #### [facility] ([id number]) [address] [place] [address] 52280 #### KRYS PINR, CMP #### [facility] ([id number]) [address] [place], [place] [address]Dixndto [Mass/Vol]6.6 g/dLNormal6.0-8.0ProThe [facility] Of [facility] League City CampusComment on above:Performed By: #### 76728-7 #### [facility] ([id number]) [address] [place] [address], [place] [address] #### CBCA, PINR, CMP #### [facility] ([id number]) [address] [facility], [address] [place], [place] [address]Vcqfnt [Moles/Vol]134 mmol/SPxyieh705-714TdiSwgpio [facility]ont HospitalComment on above:Performed By: #### 86339-8 #### [facility] ([id number]) [address] [place] [address] 06139 #### CBCA, PINR, CMP #### [facility] ([id number]) [address] [facility], [address] [place], [place] [address]Wtfp nitrogen [Mass/Vol]29 mg/dLHigh5-27ProThe [facility] Of [facility] City CampusComment on above:Performed By: #### 70810-9 #### [facility] ([id number]) [address] [place] [address] 25452 #### CBCA, PINR, CMP #### [facility] ([id number]) [address] [facility], [address] [place], [place] [address]Kvctkyyyxhdab metabolic panelon 65-61-4068Oxxadfm [Mass/Vol]4.1 g/dL3.2 - 5.3 g/dLProMedica Health SystemALP [Catalytic activity/Vol]40 U/L39 - 130 U/LProMedica Health SystemALT No additional P-5'-P [Catalytic activity/Vol] 21 U/L0 - 40 U/LProMedica Health SystemAnion gap [Moles/Vol]7 mmol/L5 - 15 mmol/LProMedica Health SystemAST [Catalytic activity/Vol]17 U/L0 - 41 U/L [facility] Health SystemBilirubin [Mass/Vol]0.4 mg/dL0.3 - 1.2 mg/dLProMedica Health SystemCalcium [Mass/Vol]9.1 mg/dL8.5 - 10.5 mg/dLProMedica Health System Chloride [Moles/Vol]100 mmol/L98 - 109 mmol/[facility] SystemCO2 [Moles/Vol]27 mmol/L22 - 32 mmol/[facility] SystemCreatinine [Mass/Vol] 1.21 mg/dL0.60 - 1.30 mg/dLElyria Memorial HospitalComment on above:METHOD TRACEABLE TO IDND STANDARDeGFR (CKD-EPI)non-race - [facility] Health - DanvilleComment on above: Reported eGFR is based on the CKD-EPI 2020 equation that does not use a race coefficient. Glucose [Mass/Vol]87 mg/dL65 - 99 mg/dLElyria Memorial HospitalInterpretation and review of laboratory resultsAbnormalGreen Cross Hospital SystemPotassium [Moles/Vol]4.2 mmol/L3.5 - 5.0 mmol/[facility] Health SystemProtein [Mass/Vol] 6.6 g/dL6.0 - 8.0 g/dLGreen Cross Hospital SystemSodium [Moles/Vol]134 mmol/L134 - 146 mmol/[facility] SystemUrea nitrogen [Mass/Vol]29 mg/dLHigh5 - 27 mg/dLChildren's Hospital of Wisconsin– Milwaukee SystemPROTIME AND INRon 08-13-2024 INR Coag (PPP) [Relative time]1.0 {INR}Normal0.8-1.1PMercy Health St. [facility] Comment on above:Performed By: #### 80545-6 #### [facility] ([id number]) [address] [place] [address] 00261 #### KRYS PINR, CMP #### [facility] ([id number]) [address] [facility], [address] [place], [place] [address]GS Coag (PPP) [Time]11.1 sNormal9.8-13.2PMercy Health St. Anne HospitalComment on above:Performed By: #### 72163-9 #### [facility] ([id number]) [address] [place] [address] 77506 #### CBCA, PINR, CMP #### [facility] ([id number]) [address] [facility], [address] [place], [place] [address]Sxzwqcm & INRon 19-97-1869BQE Coag (PPP) [Relative time]1 {INR} [facility] SystemPT Coag (PPP) [Time]11.1 [facility] SystemURINALYSISon 55-81-2989Aczxliexm Ql (U)NegativeNormalNEG [facility] HospitalComment on above:Performed By: #### UA #### [facility] ([id number]) [address] [facility], [address] [place], [place] [address]UKLUO/HGBNegativeNormalNEGOhioHealth Grady Memorial HospitalComment on above:Performed By: #### UA #### [facility] ([id number]) [facility] [facility], [address] [place], [place] [address]Zsosp (U)YELLOWNormalYELLOWOhioHealth Grady Memorial HospitalComment on above:Performed By: #### UA #### [facility] ([id number]) [facility] [facility], [address] [place], [place] [address]Lvovjti Ql (U)NegativeNormalNEGOhioHealth Grady Memorial HospitalComment on above:Performed By: #### UA #### [facility] ([id number]) [facility] [facility], [address] [place], [place] [address]Xolyjfu Ql (U)NegativeNormalNEGOhioHealth Grady Memorial HospitalComment on above:Performed By: #### UA #### [facility] ([id number]) [address] [facility], [address] [place], [place] [address]Ebdfxrviv esterase Test strip Ql (U)NegativeNormalNEGOhioHealth Grady Memorial HospitalComschoolcraft memorial hospital on above:Performed By: #### UA #### [facility] ([id number]) [address] [facility], [address] [place], [place] [address]JTKIKOOJTFMSBQgagckpwQCFMOzpZcmpaw Fremont HospitalComschoolcraft memorial hospital on above:Performed By: #### UA #### [facility] ([id number]) [address] [place], [place] [address]Qewluou Ql (U)NegativeNormalNEGOhioHealth Grady Memorial HospitalComment on above:Performed By: #### UA #### [facility] ([id number]) [address] [facility], [address] [place], [place] [address]rM (U)6.0 [pH]Normal5.0-8.5PMercy Health St. Anne HospitalComment on above:Performed By: #### UA #### [facility] ([id number]) [address] [place] [address], [address] [place], [place] [address]Szsmiam Ql (U)TraceAbnormalNEGOhioHealth Grady Memorial HospitalComment on above:Performed By: #### UA #### [facility] ([id number]) [address] [place] [address], [address] [place], [place] [address]D.B.CELLS<9Pcwsre4-4RhrPonpkdMercy Health St. Anne HospitalComment on above: Performed By: #### UA #### [facility] ([id number]) [address] [place] [address], [address] [place], [place] [address]Nlyzdzev gravity (U) [Rel density]1.751Yesdof0.003-1.035 [facility] Hospital Los AngelesComment on above:Performed By: #### UA #### [facility] ([id number]) [address] [place] [address], [address] [place], [place] [address]TNEKWKPJNZYQNECycsguGHBITMbyDfydpl [facility]ont HospitalComment on above:Performed By: #### UA #### [facility] ([id number]) [address] [place] [address], [address] [place], [place] [address]Rjsenadcpzcf (U) [Mass/Vol]mg/dLNormal<1.1PMercy Health St. Anne HospitalComment on above:Performed By: #### UA #### [facility] ([id number]) [address] [place] [address], [address] [place], [place] [address]X.B.CELLS1 /hpfNormal0-5PMercy Health St. Anne HospitalComment on above:Performed By: #### UA #### [facility] ([id number]) [address] [place], [place] [address]EJZLC CULTUREon 78-07-6328Xhvpzuya identified Cx Nom (U)CULTURE RESULTS <10,000 ORGANISMS/ML NORMAL URO GENITAL FLORAACMC Healthcare System Glenbeigh Comment on above:Performed By: #### 630-4 #### [facility] ([id number]) [address] [place], [place] [address]kYVX Coag (Bld) [Time]on 86-70-1223XVSDSullivan County Memorial HospitalaPTT Coag (PPP) [Time]on 06-95-3342FxqEnwjaiCleveland Clinic Mentor HospitalaPTT Coag (Bld) [Time]35 sNormal 26-37Ohio[facility] Memorial HospitalComment on above:Result Comment: NEW REFERENCE RANGEPerformed By: #### 07705-3 #### [facility] ([id number]) [address] [place] [address], [place] [address] #### CBCA, PINR, CMP #### [facility] ([id number]) [address] [place], [place] [address]Cmvygvrie partial thromboplastin time (aPTT) in platelet poor plasma by coagulation aOrdered By: Queta Tilley on 67-12-5329gHUC Coag (PPP) [Time]33.7 s25.1-36.5FChillicothe HospitalComment on above:A hematocrit value greater than 55% may lead to inaccurate results in coagulation testing. Patientshaving hematocrit values >55% require a special collection tube for coagulation studies. Please contact the laboratory at [phone] for redraw instructions.Alanine aminotransferase [Enzymatic activity/volume] in Serum or PlasmaOrdered By: Queta Tilley on 93-60-5067QKY [Catalytic activity/Vol]22 U/LNormal7-52[facility] Beachwood Medical CenterComment on above: Performed By: #### CMP #### [place] [address] USAAlbumin [Mass/volume] in Serum or Plasma by Bromocresol green (BCG) dye binding methoOrdered By: Queta Tilley on 11-01-5113Agsqvcf BCG dye [Mass/Vol]4.6 g/dL3.5-5.7FChillicothe HospitalAlkaline phosphatase [Enzymatic activity/volume] in Serum or PlasmaOrdered By: Queta Tilley on 23-28-2767AEV [Catalytic activity/Vol]37 U/BAdwktk97-492RhuhpnwpkLakehealth Beachwood Medical CenterComment on above:Result Comment: PERFORMED BY: [place] [address] PATHOLOGIST COMMAND AND CONTROL HUGO AVALOS M.D.Performed By: #### CMP #### [place] [address] USAAspartate aminotransferase [Enzymatic activity/volume] in Serum or PlasmaOrdered By: Queta Tilley on 46-30-5227ULO [Catalytic activity/Vol]16 U/LLjfcgi62-88DaetycjbdLakehealth Beachwood Medical CenterComment on above: Performed By: #### CMP #### [place] [address] USAAutomated basophil %Ordered By: Queta Tilley on 71-89-6194Apnvnnwfq/100 WBC (Bld)0.6 %Normal.[facility] Comment on above:Performed By: #### CBC #### [place] [address] USAAutomated basophil countOrdered By: Queta Tilley on 44-92-3499Nwhbzcsdq (Bld) [#/Vol]0.1 10*3/uLNormal0.0-0.2FChillicothe HospitalComment on above:Result Comment: PERFORMED BY: [place] [address] PATHOLOGIST COMMAND [employer] CONTROL HUGO AVALOS M.D.Performed By: #### CBC #### [place] [address] USAAutomated blood monocyte countOrdered By: Queta Tilley on 42-28-3509Xqwitrhuo (Bld) [#/Vol]0.8 10*3/uLNormal0.0-0.8[facility] CenterComment on above:Performed By: #### CBC #### [facility] [address] [place] [address] USAAutomated eosinophil %Ordered By: Queta Tilley on 45-94-3424Jiglnusqign/100 WBC (Bld)0.8 %Normal.[facility] Comment on above:Performed By: #### CBC #### [place] [address] USAAutomated eosinophil countOrdered By: Queta Tilley on 23-81-7032Alzgolgceov (Bld) [#/Vol]0.1 10*3/uLNormal0.0-0.45[facility] CenterComment on above:Performed By: #### CBC #### [place] [address] USAAutomated monocyte %Ordered By: Queta Tilley on 69-35-0353Ktufahdgz/100 WBC (Bld)8.0 %Normal.[facility] Comment on above:Performed By: #### CBC #### [place] [address] USAAutomated neutrophil %Ordered By: Queta Tilley on 02-65-6810Okzcqwingoa/100 WBC (Bld)64.7 %Normal.[facility] CenterComment on above:Performed By: #### CBC #### [place] [address] USABilirubin Test strip Ql (U)Ordered By: Queta Tilley on 70-62-1706Xzhumjkvm Ql (U)NegativeNegativeLakehealth Beachwood Medical Center Bilirubin.total [Mass/volume] in Serum or PlasmaOrdered By: Queta Tilley on 72-09-4216Sglfhbkhm [Mass/Vol]0.5 mg/dLNormal0.3-1.0[facility] CenterComment on above:Performed By: #### CMP #### [place] [address] USACalcium [Mass/volume] in Serum or PlasmaOrdered By: [place] Tilley on 78-82-6194Sbikrgb [Mass/Vol]9.7 mg/dLNormal8.6-10.3FChillicothe HospitalComment on above:Performed By: #### CMP #### [place] [address] USACarbon dioxide, total [Moles/volume] in Serum or Plasma Ordered By: Queta Tilley on 53-88-7783JM5 [Moles/Vol]27.0 mmol/XIpairs36.0-31.0 [facility] CenterComment on above:Performed By: #### CMP #### [place] [address] USAChloride [Moles/volume] in Serum or PlasmaOrdered By: Queta Tilley on 93-40-0115Sarfynnw [Moles/Vol]97 mmol/XHyr19-164QlnkrtaysLakehealth Beachwood Medical CenterComment on above:Performed By: #### CMP #### [place] [address] USAColor of Urine by AutoOrdered By: Queta Tilley on 07-19-3802Ztwpk (U)YellowNormalYellowLakehealth Beachwood Medical CenterComment on above:Order Comment: Name Collection Type:: Clean-Voided MidstreamPerformed By: #### UA #### [place] [address] USAComplete Blood Count Auto Diffon 09-36-7361Lrsh Corpuscular HGB Conc33.6 g/jHRraglp58.5-35.6The [facility] Physician GroupComment on above:Performed By: #### CBC #### [place] [address] USANRBC%0.4 /100{WBC}Normal0-0.5[facility] Comment on above:Performed By: #### CBC #### [place] [address] USAComprehensive Metabolic Panelon 76-13-8714Iatiydj [Mass/Vol]4.6 g/dLNormal3.5-5.7The [facility] Physician GroupComment on above: Performed By: #### CMP #### [facility] [address] [id number] USAGFR/1.73 sq M.predicted MDRD (S/P/Bld) [Vol rate/Area] mL/min/{1.73_m2}NormalThe [facility] Physician GroupComment on above:Performed By: #### CMP #### [facility] [address] [place] [address] USACreatinine [Mass/volume] in Serum or PlasmaOrdered By: Queta Tilley on 16-09-1478Rfdebqqavy [Mass/Vol]1.19 mg/dLNormal0.70-1.30 [facility] CenterComment on above:Performed By: #### CMP #### [place] [id number] USAECG 12 lead ECGon 86-06-1409NZW 12 lead [facility] [place] [address] [place] [address] Electrocardiograph Report Signed Patient: Amina Lim MR#: [id number] 4 : 1945 Acct:[id number] Age/Sex: 78 / M ADM Date: 03/18/24 Loc: Room: Type: [facility] Attending Dr: Queta Tilley PA-C Ordering Provider: [...] Signed By Nitin Hammonds MD 0 03/18/24 150[address] Physician GroupErythrocyte distribution width [Ratio] by Automated countOrdered By: Queta Tilley on 12-88-5907Gorezlurfni distribution width (RBC) [Ratio]14.1 %Emobsb29.0-14.8L[facility] Beachwood Medical CenterComment on above:Performed By: #### CBC #### [facility] [address] [id number] USAErythrocytes [#/volume] in Blood by Automated countOrdered By: Queta Tilley on 34-77-9412DSY (Bld) [#/Vol]4.42 10*6/uLNormal3.90-5.60 [facility] Medical CenterComment on above:Performed By: #### CBC #### [place] [id number] USAGlucose [Mass/volume] in Serum or PlasmaOrdered By: Queta Tilley on 27-64-1061Gdxilgq [Mass/Vol]93 mg/lHQmsptn23-367GixbygllqLakehealth Beachwood Medical CenterComment on above:ADA recommended reference rangeRandom Glucose Reference [...] recommended reference rangePerformed By: #### CMP #### [place] [id number] USAGlucose [Mass/volume] in Urine by Test stripOrdered By: Queta Tilley on 79-60-8373Zdrbnby Test strip (U) [Mass/Vol]Normal mg/dLNoal [facility] Medical CenterHematocrit [Volume Fraction] of Blood by Automated countOrdered By: Queta Tilley on 80-59-3073Scwvvuwqlw (Bld) [Volume fraction]41.0 %Imrqja68.8-50.0L[facility] Medical CenterComment on above: Performed By: #### CBC #### [facility] [address] [place] [address] USAHemoglobin Test strip Ql (U)Ordered By: Queta Tilley on 21-41-8003Xjmrnztqna Ql (U)NegativeNegativeLakehealth Beachwood Medical Center Hemoglobin [Mass/volume] in BloodOrdered By: Queta Tilley on 03-18-2024 Hemoglobin (Bld) [Mass/Vol]13.8 g/lOGrgtog00.0-17.0L[facility] Medical CenterComment on above:Performed By: #### CBC #### [facility] [address] [place] [address] USAINR in Platelet poor plasma by Coagulation assayOrdered By: Queta Tilley on 78-77-1490LFU Coag (PPP) [Relative time]0.9 {INR}Normal [facility] Medical CenterComment on above:INR Therapeutic Range A) Pre- and [...] - 4.5Performed By: #### PT, PTT #### [facility] [address] [place] [address] USAKetones [Presence] in Urine by Test stripOrdered By: Queta Tilley on 15-45-2218Rjnfdci Ql (U)NegativeNormalNegativeLakehealth Beachwood Medical CenterComment on above:Order Comment: Name Collection Type:: Clean-Voided MidstreamPerformed By: #### UA #### [facility] [address] [place] [address] USALeukocyte esterase [Presence] in Urine by Test strip Ordered By: Queta Tilley on 09-51-8028Twbfhvqlm esterase Test strip Ql (U) NegativeNormalNegativeLakehealth Beachwood Medical CenterComment on above:Order Comment: Name Collection Type:: Clean-Voided MidstreamPerformed By: #### UA #### [place] [address] USALeukocytes [#/volume] corrected for nucleated erythrocytes in Blood by Automated counOrdered By: Queta Tilley on 33-31-2801ZIR corrected for nucl RBC Auto (Bld) [#/Vol]9.4 10*3/uL4.1-10.5FChillicothe HospitalLeukocytes [#/volume] in Blood by Automated countOrdered By: Queta Tilley on 06-84-5334HPP (Bld) [#/Vol]9.4 10*3/uLNormal4.1-10.5FChillicothe HospitalComment on above:Performed By: #### CBC #### [place] [address] USALymphocytes [#/volume] in Blood by Automated countOrdered By: Queta Tilley on 29-77-2354Fklncwekopl (Bld) [#/Vol]2.4 10*3/uLNormal 1.00-4.8L[facility] Medical CenterComment on above:Performed By: #### CBC #### [place] [address] USALymphocytes/100 leukocytes in Blood by Automated count Ordered By: Queta Tilley on 69-83-1052Ofcwmksytuq/100 WBC (Bld)25.9 %Normal. [facility] CenterComment on above:Performed By: #### CBC #### [place] [address] USAMCH [Entitic mass] by Automated countOrdered By: Queta Tilley on 02-10-6678RMF (RBC) [Entitic mass]31.2 qvZasjkx03.5-35.2FChillicothe HospitalComment on above:Performed By: #### CBC #### [facility] [address] [id number] [facility] CITYHC Auto (RBC) [Mass/Vol]Ordered By: Queta Tilley on 01-09-9591ICML (RBC) [Mass/Vol]33.6 g/dL32.5-35.6FChillicothe HospitalMCV [Entitic volume] by Automated countOrdered By: Queta Tilley on 87-78-4373YTM (RBC) [Entitic vol]92.9 oQQvbqct31.5-101L[facility] Beachwood Medical CenterComment on above:Performed By: #### CBC #### [facility] [address] [place] [address] USANeutrophils [#/volume] in Blood by Automated countOrdered By: Queta Tilley on 35-82-2172Jaboqgwdqzb (Bld) [#/Vol]6.1 10*3/uLNormal1.8-7.7 [facility] CenterComment on above:Performed By: #### CBC #### [facility] [address] [place] [address] USANitrite Test strip Ql (U)Ordered By: Queta Tilley on 08-73-3044Vqqgvxf Ql (U)NegativeNegativeLakehealth Beachwood Medical CenterNo Panel InformationOrdered By: Queta Tilley on 44-02-8376Rdnccnrms GFR (CKD-EPI)> 60.0 mL/MinLakehealth Beachwood Medical CenterPharmacy Creatinine Clearance (Chem N/AFChillicothe HospitalNucleated erythrocytes [Presence] in Blood by Automated countOrdered By: Queta Tilley on 10-95-0928Tsbulsdvq RBC Auto Ql (Bld)0.4 /100{WBC}0-0.5FChillicothe HospitalPartial Thromboplastin Timeon 90-27-3590pUZC Coag (Bld) [Time]33.7 qMiwpfy17.1-36.5The [facility] Physician GroupComment on above:Result Comment: A hematocrit value greater than 55% may lead to inaccurate results in coagulation testing. Patients having hematocrit values >55% require a special collection tube for coagulation studies. Please contact the laboratory at [phone] for redraw instructions. PERFORMED BY: [place] [address] PATHOLOGIST COMMAND AND CONTROL HUGO AVALOS M.D.Performed By: #### PT, PTT #### [place] [address] USAPlatelet mean volume [Entitic volume] in Blood by Automated countOrdered By: Queta Tilley on 21-74-1270Kahcojls mean volume (Bld) [Entitic vol]7.7 fLNormal6.6-10.1FChillicothe HospitalComment on above:Performed By: #### CBC #### [place] [address] USAPlatelets [#/volume] in Blood by Automated countOrdered By: Queta Tilley on 80-12-2182Nvuevzqtp (Bld) [#/Vol]220 10*3/vFQjvdeh172-319 [facility] CenterComment on above:Performed By: #### CBC #### [place] [address] USAPotassium [Moles/volume] in Serum or PlasmaOrdered By: Queta Tilley on 79-93-0633Qdszzrsba [Moles/Vol]4.8 mmol/LNormal3.5-5.1FChillicothe HospitalComment on above:Performed By: #### CMP #### [place] [address] USAProtein Test strip (U) [Mass/Vol]Ordered By: Queta Tilley on 87-27-3877Lyjdxpu (U) [Mass/Vol]NegativeNegativeLakehealth Beachwood Medical CenterProtein [Mass/volume] in Serum or PlasmaOrdered By: Queta Tilley on 09-36-5663Crtnyqb [Mass/Vol]6.9 g/dLNormal6.4-8.9L[facility] Medical CenterComment on above:Performed By: #### CMP #### [place] [address] USAProthrombin time (PT)Ordered By: Queta Tilley on 94-19-0737QS Coag (PPP) [Time]11.0 sNormal9.0-12.9L[facility] Medical CenterComment on above:A hematocrit value greater than 55% may lead to inaccurate results in coagulation testing. Patientshaving hematocrit values >55% require a special collection tube for coagulation studies. Please contact the laboratory at [phone] for redraw instructions.Result Comment: A hematocrit value greater than 55% may lead to inaccurate results in coagulation testing. Patients having hematocrit values >55% require a special collection tube for coagulation studies. Please contact the laboratory at [phone] for redraw instructions.Performed By: #### PT, PTT #### [place] [address] USASerum globulin measurement by calculation (mass/volume) Ordered By: Queta Tilley on 98-42-7250Ekmywlez (S) [Mass/Vol]2.3 g/dLNormal [facility] CenterComment on above:Performed By: #### CMP #### [place] [address] USASerum or plasma albumin/globulin mass ratioOrdered By: Queta Tilley on 63-89-1140Gsebdfp/Globulin [Mass ratio]2.0 {ratio}Normal [facility] CenterComment on above:Performed By: #### CMP #### [place] [address] USASerum or plasma anion gap determinationOrdered By: Queta Tilley on 91-32-4962Wzekc gap [Moles/Vol]11.8 mmol/LNormal6.0-15.0L[facility] CenterComment on above:Performed By: #### CMP #### [place] [address] USASodium [Moles/volume] in Serum or PlasmaOrdered By: Queta Tilley on 31-68-6324Bhdkor [Moles/Vol]131 mmol/OXyg847-540XlnpgzuoiLakehealth Beachwood Medical CenterComment on above:Performed By: #### CMP #### [place] [address] USASpecific gravity Test strip (U) [Rel density]Ordered By: Queta Tilley on 38-38-5991Togmtmry gravity (U) [Rel density]1.0221.001-1.030 [facility] Medical CenterUrea nitrogen [Mass/volume] in Serum or Plasma Ordered By: Queta Tilley on 08-19-1683Falb nitrogen [Mass/Vol]26 mg/dLHigh7-25 [facility] CenterComment on above:Performed By: #### CMP #### [place] [address] USAUrinalysison 04-27-9153Dbxtinnpl,UrineNegativeNormal NegativeThe [facility] Physician GroupComment on above:Order Comment: Name Collection Type:: Clean-Voided MidstreamPerformed By: #### UA #### [place] [address] USAGlucose Ql (U)NormalNormalNormalThe [facility] Physician GroupComment on above:Order Comment: Name Collection Type:: Clean-Voided MidstreamPerformed By: #### UA #### [place] [address] USANitrite,UrineNegativeNormalNegativeThe [facility] Physician GroupComment on above:Order Comment: Name Collection Type:: Clean-Voided MidstreamPerformed By: #### UA #### [place] [address] USAOccult Blood,UrineNegativeNormalNegativeThe [facility] Physician GroupComment on above:Order Comment: Name Collection Type:: Clean- Voided MidstreamResult Comment: PERFORMED BY: [place] [address] PATHOLOGIST COMMAND AND CONTROL HUGO AVALOS M.D.Performed By: #### UA #### [place] [address] USAProtein,UrineNegativeNormalNegativeThe [facility] Physician GroupComment on above:Order Comment: Name Collection Type:: Clean-Voided MidstreamPerformed By: #### UA #### [place] [address] USASpecificy [place],Urine1.422Sjxcet7.001-1.030[facility] Physician GroupComment on above:Order Comment: Name Collection Type:: Clean- Voided MidstreamPerformed By: #### UA #### [place] [address] USAUrobilinogen,UrineNormalNormalNormalThe [facility] Physician [facility] SystemComment on above:Order Comment: Name Collection Type:: Clean- Voided MidstreamPerformed By: #### UA #### [place] [address] USAUrine Cultureon 17-36-9434Yjhfyjiv identified Cx Nom (U)No Growth 2 Days PERFORMED BY: [place] [address] PATHOLOGIST COMMAND AND CONTROL HUGO AVALOS M.D.NormalMemorial Hospital Miramar Physician [facility] Care SystemComment on above:Performed By: #### CUU #### [place] [address] USAUrine appearanceOrdered By: Queta Tilley on 03-18-2024 Appearance (U)ClearNoalClearLakehealth Beachwood Medical CenterComment on above: Order Comment: Name Collection Type:: Clean-Voided MidstreamPerformed By: #### UA #### [place] [address] USAUrobilinogen Test strip (U) [Mass/Vol]Ordered By: Queta Tilley on 14-00-2054Sdmxhrtwuuqi (U) [Mass/Vol]Normal mg/dLNoMercy Health Springfield Regional Medical CenterXR bonelength lower extremityon 51-38-2847ZJ [facility] waxhaw extremityCLEVELAND [facility]IN[facility] [place] [address] [place] [address] XRay Report Signed Patient: Amina Lim MR#: [id number] 4 : 1945 Acct:[id number] Age/Sex: 78 / M ADM Date: 03/18/24 Loc: Room: Type: [facility] Attending Dr: Queta Tilley PA-C Copies to: [...] Kelly Banegas M.D.03/18/2024 4:55 PM Dictation Location: [place] [address] Transcribed By: [facility] 03/18/241654 Dictated By: Kelly Banegas II, MD 03/18/241653 Signed By: 03/18/241654[facility] Physician GrouppH of Urine by Test stripOrdered By: Queta Tilley on 18-54-6690fC (U)5.5 [pH]Normal5.0-9.0[facility] Medical CenterComment on above:Order Comment: Name Collection Type:: Clean- Voided MidstreamPerformed By: #### UA #### [facility] [address] [place] [address] USAXR KNEE DUSTIN 3 Von 32-38-2016JU KNEE DUSTIN 3 VEXAM: XR KNEE DUSTIN 3 V HISTORY: Osteoarthritis COMPARISON: None. TECHNIQUE: 3 views FINDINGS: There is no acute fracture or dislocation. There are mild degenerative changes. The soft tissues are unremarkable. IMPRESSION: Mild degenerative changes as above. Electronically authenticated by: KELLY LARSON Date: 2023-03-15 12:38NoTrinity Health System Twin City Medical CenterCovid-19 PCR (CVDTBH)on 11-76-5550LNAZ-CoV-2 (COVID-19) RNA DHARA+probe Ql (Unsp spec)Not detectedNormalNOT DETECTEDKettering Health Greene Memorial Comment on above:Result Comment: When diagnostic testing [...] for this test is supported by the Book Coverer of Health and Human Service's declaration that [...] no longer be used).Performed By: #### CVDTBH ####[facility] [address] [address]Dr. Xena Lucas A AND B AGon 76-21-2906NQKARVFYAYREA BELOWFisher-Titus Medical Center on above:Result Comment: Negative for Flu A protein angiten. Infection due to Flu A cannot be ruled out. FluA angiten in the sample may be below the detection limit of the test.Performed By: #### INFLUAB #### [facility] [address] [place] [address] Dr. Xena PickardINFLUBNEGHSOLGA [facility] on above: Result Comment: Negative for Flu B protein antigen. Infection due to Flu B cannot be ruled out. FluB antigen in the sample may be below the detection limit of the test.Performed By: #### INFLUAB #### [facility] [address] [place] [address] Dr. Xena Paniagua AGNegativeNormalNEGATIVE SEE COMMENTThe [facility] on above:Performed By: #### INFLUAB #### [facility] [address] [place] [address] Dr. Xena Allen AGNegativeNormalNEGATIVE SEE COMMENTThe Lizette HospitalComment on above:Performed By: #### INFLUAB #### [facility] [address] [place] [address] Dr. Xena PickardINTERNAL CONTROLSWithin Normal LimitsNormalWithin Normal Limits The [facility] Healthcare SystemComment on above:Performed By: #### INFLUAB #### [facility] [address] [place] [address] Dr. Xena PickardINSULINon 76-23-7819Vfgzudr93.1 uIU/mLNormal2.6-24.9The [facility] Healthcare SystemComment on above:Performed By: #### INSULIN ####[facility] [address] [address]Dr. Xena PickardPTH INTACTon 66-14-0976AEO, Bkmkpn67 pg/mLCritically ewf09-53Kwq [facility] on above:Performed By: #### PTHINT #### [facility] [address] [place] [address] Dr. Xena PickardCBC AUTO DIFFon 71-80-6342LXYH #0.0 103/ulNormal0.0-0.1The [facility] Healthcare SystemComment on above:Performed By: #### CBC #### [facility] [address] [place] [address] Dr. Xena PickardBasophils/100 WBC (Bld)0.6 %Normal0.2-2.0[facility] Comment on above:Performed By: #### CBC #### [facility] [address] [place] [address] Dr. Xena Burgess #0.2 103/ulNormal0.0-0.7The [facility] Healthcare SystemComschoolcraft memorial hospital on above: Performed By: #### CBC #### [facility] [address] [place] [address] Dr. Xena Lyonosinophils/100 WBC (Bld)2.5 %Normal0.9-7.0The [facility] Comment on above:Performed By: #### CBC #### [facility] [address] [place] [address] Dr. Xena Lyonrythrocyte distribution width (RBC) [Ratio]13.5 %Umguke58.0-15.0 The [facility] Healthcare SystemComment on above:Performed By: #### CBC #### [facility] [address] [place] [address] Dr. Xena PickardHematocrit (Bld) [Volume fraction]38.3 %Critically low42.0-54.0 The [facility] Healthcare SystemComment on above:Performed By: #### CBC #### [facility] [address] [place] [address] Dr. Xena PickardHemoglobin (Bld) [Mass/Vol]13.0 g/dLCritically low14.0-18.0The [facility] SystemComment on above:Performed By: #### CBC #### [facility] [address] [place] [address] Dr. Xena Barakat #0.03 10e3/ulNormal0.00-0.03The [facility] SystemComment on above:Performed By: #### CBC #### [facility] [address] [place] [address] Dr. Xena Barakat %0.4 %Normal0.0-0.5The [facility] SystemComment on above: Performed By: #### CBC #### [facility] [address] [place] [address] Dr. Xena Singer #2.2 103/ulNormal1.2-3.8The [facility] SystemComment on above:Performed By: #### CBC #### [facility] [address] [place] [address] Dr. Xena Huffmphocytes/100 WBC (Bld)31.5 %Iqfrjb78.5-60.0The [facility] Healthcare SystemComment on above:Performed By: #### CBC #### [facility] [address] [place] [address] Dr. Xena WhiteheadUAL DIFF REQNONormalThe [facility] Healthcare SystemComment on above: Performed By: #### CBC #### [facility] [address] [place] [address] Dr. Xena Parra (RBC) [Entitic mass]30.5 epKusnfj65.9-34.0The [facility] SystemComment on above:Performed By: #### CBC #### [facility] [address] [place] [address] Dr. Xena Vazquez (RBC) [Mass/Vol]33.9 g/zWIaomev16.9-35.2The [facility] SystemComment on above:Performed By: #### CBC #### [facility] [address] [place] [address] Dr. Xena VazquezV (RBC) [Entitic vol]89.9 yMYgunzh87.0-94.0The [facility] SystemComment on above:Performed By: #### CBC #### [facility] [address] [place] [address] Dr. Xena Uribe #0.6 103/ulNormal0.3-0.8The [facility] SystemComment on above:Performed By: #### CBC #### [facility] [address] [place] [address] Dr. Xena Polancoocytes/100 WBC (Bld)8.2 %Normal1.7-12.0The [facility] Comment on above:Performed By: #### CBC #### [facility] [address] [place] [address] Dr. Xena Mariee #4.0 103/ulNormal1.4-6.5The [facility] SystemComment on above:Performed By: #### CBC #### [facility] [address] [place] [address] Dr. Xena Manningutrophils/100 WBC (Bld)56.8 %Phqbhj76.0-75.0The [facility] SystemComment on above:Performed By: #### CBC #### [facility] [address] [place] [address] Dr. Xena Artlet mean volume (Bld) [Entitic vol]10.2 fLNormal9.5-13.5The [facility] SystemComment on above:Performed By: #### CBC #### [facility] [address] [address] [address] Xena PickardPLT185 103/buYkfkho448-815Rjj [facility] on above: Performed By: #### CBC #### [facility] [address] [address] [address] Xena PickardRBC4.26 106/ulCritically low4.70-6.10The [facility] SystemComschoolcraft memorial hospital on above:Performed By: #### CBC #### [facility] [address] [address] [address] Xena PickardWBC7.1 103/ulNormal4.0-11.0The [facility] Healthcare SystemComschoolcraft memorial hospital on above: Performed By: #### CBC #### [facility] [address] [place] [address] Dr. Xena PickardGLYCOHEMOGLOBIN A1Con 73-31-1446RHA RECOMMENDATIONSEE BELOWOhio State University Wexner Medical CenterComschoolcraft memorial hospital on above:Result Comment: ADA RECOMMENDED LIMIT 4.0 - 6.0 ADA THERAPEUTIC TARGET < 7.0 ACTION SUGGESTED > 7.0Performed By: #### A1C #### [facility] [address] [place] [address] Dr. Xena PickardGlucose [Mass/Vol]120 mg/dLNoSelect Medical Specialty Hospital - [facility] [place] on above:Performed By: #### A1C #### [facility] [address] [place] [address] Dr. Xena PickardHbA1c (Bld) [Mass fraction]5.8 %Normal4.5-6.2The [facility] on above:Performed By: #### A1C #### [facility] [address] [place] [address] Dr. Xena PickardLIPID PROFILEon 93-01-0747STZE-HDL RATIO NORMSEE [facility] on above:Result Comment: 3.3 - 4.4 LOW RISK 4.4 - 7.1 AVERAGE RISK 7.1 - 11.0 MODERATE RISK >11.0 HIGH RISKPerformed By: #### LIPID, URIC, CMP #### [facility] [address] [address] [address] Xena PickardCholesterol [Mass/Vol]166 mg/dLNormal<=200[facility] Comment on above:Performed By: #### LIPID, URIC, CMP #### [facility] [address] [address] [address] Xena PickardCholesterol in HDL [Mass/Vol]52 mg/qPHpvvfg12-57Tvc [facility] SystemComment on above:Performed By: #### LIPID, URIC, CMP #### [facility] [address] [address] [address] Xena PickardCholesterol in LDL [Mass/Vol]100.8 mg/dLCincinnati Children's Hospital Medical CenterComment on above:Performed By: #### LIPID, URIC, CMP #### [facility] [address] [place] [address] Dr. Xena Silveiraesterjhon.total/Cholesterol in HDL [Mass ratio]3.2 {ratio} NormalThe [facility] Healthcare SystemComment on above:Performed By: #### LIPID, URIC, CMP #### [facility] [address] [place] [address] Dr. Xena Armenta NORMAL> or = 60 mg/dl - LOW CARDIOVASCULAR RISK <40 mg/dl - HIGH CARDIOVASCULAR RISKCincinnati Children's Hospital Medical CenterComment on above:Performed By: #### LIPID, URIC, CMP #### [facility] [address] [place] [address] Dr. Xena PickardLDL CALC NORMALSEE BELOWCincinnati Children's Hospital Medical CenterComment on above:Result Comment: <100 mg/dl OPTIMAL 100 - 129 mg/dl NEAR OR ABOVE OPTIMAL 130 - 159 mg/dl BORDERLINE HIGH 160 - 189 mg/dl HIGH >190 mg/dl VERY HIGH Performed By: #### LIPID, URIC, CMP #### [facility] [address] [place] [address] Dr. Xena PickardTriglyceride [Mass/Vol]66 mg/dLNormal<=150The [facility] Comment on above:Performed By: #### LIPID, URIC, CMP #### [facility] [address] [place], [place] [id number] Dr. Xena GilLDL CALC13.2 mg/dLNormalThe [facility] SystemComment on above: Performed By: #### LIPID, URIC, CMP #### [facility] [address] [address] [address] Xena PickardPHOSPHORUSon 26-65-4809Wbjkcsskr [Mass/Vol]3.3 mg/dLNormal2.6-4.7 [facility] SystemComment on above:Performed By: #### PHOS ####[facility] [address] [address]Dr. Xena PickardPROF 14(COMP METB)on 97-98-1185Jbsuoug [Mass/Vol]3.9 g/dLNormal3.4-5.0The [facility] Hospitalment on above:Performed By: #### LIPID, URIC, CMP #### [facility] [address] [address] [address] Xena PickardAlbumin/Globulin [Mass ratio]1.2 {ratio}NormalThe [facility] Hospitalment on above:Performed By: #### LIPID, URIC, CMP #### [facility] [address] [address] [address] Xena Moran [Catalytic activity/Vol]44 U/LCritically iwu20-792Zwg [facility] on above:Performed By: #### LIPID, URIC, CMP #### [facility] [address] [address] [address] Xena Vincent [Catalytic activity/Vol]38 U/IFufmsz99-08Jjo [facility] Hospitalment on above:Performed By: #### LIPID, URIC, CMP #### [facility] [address] [address] [address] Xena Hopkins gap [Moles/Vol]12.3 mmol/LNormalThe [facility] on above:Performed By: #### LIPID, URIC, CMP #### [facility] [address] [address] [address] Xena Deleon [Catalytic activity/Vol]16 U/ZVudbsm24-26Rsh [facility] SystemComment on above:Performed By: #### LIPID, URIC, CMP #### [facility] [address] [address] [address] Xena PickardBilirubin [Mass/Vol]0.5 mg/dLNormal0.2-1.0[facility] Comment on above:Performed By: #### LIPID, URIC, CMP #### [facility] [address] [place] [address] Dr. Xena PickardCalcium [Mass/Vol]8.7 mg/dLNormal8.5-10.1The [facility] Comment on above:Performed By: #### LIPID, URIC, CMP #### [facility] [address] [place] [address] Dr. Xena PickardChloride [Moles/Vol]101 mmol/NEjhdcv44-702Kqo [facility] Comment on above:Performed By: #### LIPID, URIC, CMP #### [facility] [address] [place] [address] Dr. Xena PickardCO2 [Moles/Vol]26.8 mmol/AHkipim43.0-32.0The [facility] Comment on above:Performed By: #### LIPID, URIC, CMP #### [facility] [address] [place] [address] Dr. Xena PickardCreatinine [Mass/Vol]1.41 mg/dLCritically high0.70-1.30The [facility] SystemComment on above:Performed By: #### LIPID, URIC, CMP #### [facility] [address] [place] [address] Dr. Xena LyonGFR-AF UKWXRIVL60 mL/min/1.08y6Hmvsmdffjj low>=60The [facility] SystemComment on above:Performed By: #### LIPID, URIC, CMP #### [facility] [address] [place] [address] Dr. Xena LyonGFR-NON AF DJBSNCTH71 mL/min/1.26i3Teoyvvpgrj low>=60The [facility] SystemComment on above:Performed By: #### LIPID, URIC, CMP #### [facility] [address] [address] [address] Xena PickardGlobulin (S) [Mass/Vol]3.3 g/dLNormSt. Vincent HospitalComment on above:Performed By: #### LIPID, URIC, CMP #### [facility] [address] [address] [address] Xena PickardGlucose [Mass/Vol]106 mg/cGRywtab02-084SoyKettering Health [facility] Comment on above:Performed By: #### LIPID, URIC, CMP #### [facility] [address] [place] [address] Dr. Xena PickardPotassium [Moles/Vol]4.1 mmol/LNormal3.5-5.1The [facility] Comment on above:Performed By: #### LIPID, URIC, CMP #### [facility] [address] [place] [address] Dr. Xena PickardProtein [Mass/Vol]7.2 g/dLNormal6.4-8.2The [facility] Comment on above:Performed By: #### LIPID, URIC, CMP #### [facility] [address] [place] [address] Dr. Xena PickardSodium [Moles/Vol]136 mmol/SWwfzsi628-466Pkm [facility] Comment on above:Performed By: #### LIPID, URIC, CMP #### [facility] [address] [place] [address] Dr. Xena PickardUrea nitrogen [Mass/Vol]33.0 mg/dLCritically high7.0-18.0The [facility] SystemComment on above:Performed By: #### LIPID, URIC, CMP #### [facility] [address] [place] [address] Dr. Xena PickardUrea nitrogen/Creatinine [Mass ratio]23.4 mg/mgNoTrinity Health System Twin City Medical CenterComment on above:Performed By: #### LIPID, URIC, CMP #### [facility] [address] [place] [address] Dr. Xena PickardURIC ACID SERUMon 54-33-9311Mvmnj [Mass/Vol]5.1 mg/dLNormal 3.5-7.2The [facility] SystemComment on above:Performed By: #### LIPID, URIC, CMP #### [facility] [address] [address] [address] Xena Antonio T PROTEIN CREAT RATIOon 11-95-0475UZ TOTAL PROTEIN<6.0 Normal<=12.0The [facility] SystemComment on above:Performed By: #### URTPCR #### [facility] [address] [address] [address] Xena Antonio CREAT36.48 mg/sGAfrryh40.00-300.00The [facility] Comment on above:Performed By: #### URTPCR #### [facility] [address] [address] [address] Xena PickardCNNURSEon 76-77-7180CXPSZUWUbmds Visit (COVAMD) AMINA LIM ([id number]) 1945 M Date Time Provider Department 01/07/21 NEIL PIERCE (LORELEI) COVROCCO During your visit today, we recorded the following information about you: Allergies As of Date: 01/07/2021 (No Known Allergies) Date Reviewed: 10/07/2019 Reviewed by: Sharon (Rn) DOLORES Nunn - Fully Assessed Order(s):Barnana SARS-COV-2 VACCINE 2D DOSE APPT [[id number]] Order #: [id number] Prescriptions as of 01/07/2021 Sig: DOCUSATE SODIUM [...] 1 tablet by mouth once d* OMEGA 7-KHM-LRD-FISH OIL 1,00* Take 1 g by mouth [...] [E78.49] 08/21/2017 Shoulder pain [M25.519] 07/16/2019 Encounter Status:[facility] Reportson 45-53-7236Hdp Reports [id number]#1.00CD:127[facility] FoundationLab [id number]#1.00CD:127NoWVUMedicine Barnesville HospitalCoding Summary.on 28-76-9876Fvtmye Summary.CODING DATE: 11/27/2019 FINAL [facility] STATUS: Home (Routine DC) PAYOR: Medicare APC DESCRIPTION 5491 Level 1 Intraocular Procedures ADMIT DX: REASON FOR VISIT DX: H25.13 Age-related nuclear cataract, bilateral FINAL DX: PRINCIPAL: H25.13 Age-related nuclear cataract, bilateral SECONDARY: H25.033 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 Ludwin Estrada Dictated: 11/25/2019 #[id number] Typed 11/25/2019 #[id number] cc: Althea Koroma M.D.[facility] FoundationComment on above:Result Comment: Electronically Signed By: Althea Koroma MD\.br\Date and Time Signed: 11/26/19 16:05 ESTMain OR Intraoperative Recordon 73-49-8573Thrq OR Intraoperative RecordIntraOp Document Type FT Summary Primary Physician: Althea Koroma MD Finalized Date/Time: 11/26/19 13:40:27 Pt. Name: AMINA LIM Adriano Alamo./Sex: 1945 Male Med Rec #: [id number] Physician: Althea Koroma MD Financial #: [id number] Pt. Type: A Room/Bed: AS0A/ Admit/Disch: 11/25/19 12:23:56 - 11/25/19 15:20:00 Institution: Case Times FT Entry 1 Patient Times In Room 11/25/19 14:12:00 Out Room 11/25/19 14:44:00 Procedure Times Start 11/25/19 14:22:00 Stop 11/25/19 14:42:00 Anesthesia Times Last Modified By: Estella BERNAL, Cortney SINGH 11/25/19 14:43:21 General Comments: 11/26/2019 Chart opened to review and send charges J Frorest ROTARY DRIER OPERATOR Case Attendance FT Entry 1 Entry 2 [...] Attendee SAMANTHA Soria RN, Ruthann Role Performed Data Abstractor - Primary Time In 11/25/19 14:12:00 Time [...] LENS(Right) Implant Identification FT Description HIMANSHU IOL [id number] SOFPORT Lot Number [id number] SIZE 20.5 [SR45NMT 20.5][F] Six Pack Loader Operator FT-BAUSCH [employer] LOMB Catalog ?# [id number] 20.5[F] Expiration Date 01/14/24 Unique Device [id number] Identifier (KATHLEEN) Human Readable {01}[id number] Machine Readable [id number] Barcode Barcode Usage Data FT Implant Site [...] Ruthann 11/25/19 14:43 Tabitha Clayton CST 11/26/19 13:40NoWVUMedicine Barnesville HospitalOperative Reporton [id number] ReportDate of Surgery: 11/25/2019 SURGEON: Althea Koroma [...] to the surface of the globe. A Skinny Mom manometer was positioned and set at 20 [...] condition. Althea Koroma M.D. lkr Dictated: 11/25/2019 #[id number] Typed: 11/26/2019 #[id number] cc: Althea Koroma M.D.[facility] FoundationComment on above:Result Comment: Electronically Signed By: Althea Koroma MD\.br\Date and Time Signed: 11/26/19 16:05 ESTInpatient Patient Summaryon 15-49-3453Mfxhknwoh Patient Summary [address] [address] [facility] Clinical Discharge Instructions PERSON INFORMATION Name: AMINA LIM PHYSICIANS Admitting Physician: Althea Koroma MD Attending Physician: Althea Koroma MD PCP: Narciso Bullock MD Discharge Diagnosis: Cataract; Floppy iris syndrome Comment: PATIENT EDUCATION INFORMATION Instructions: Medication Leaflets: Follow up: With: Address: When: Althea Koroma [address] [place] [address] [address], [place] [address] Business (1) Comments: Call physician [...] unit By Mouth every day. Comment:[facility] FoundationMain OR PACU II Recordon 97-27-7060Zbsz OR PACU II RecordPACU Phase II Document Type FT Summary Primary Physician: Althea Koroma MD Finalized Date/Time: 11/25/19 15:24:08 Pt. Name: AMINA LIMO.B./Sex: 1945 Male Med Rec #: [id number] Physician: Althea Koroma MD Financial #: [id number] Pt. Type: A Room/Bed: [address] [address] Admit/Disch: 11/25/19 12:23:56 - 11/25/19 15:20:00 Institution: [facility] Times PACU II FT Pre-Care Text: Identifies [...] Signatures Signed By: Emy Thomas RN 11/25/19 15:24NormSt. Vincent HospitalMain OR Preoperative Recordon 66-41-4183Xwoz OR Preoperative RecordHolding Area Document Type FT Summary Primary Physician: Althea Koroma MD Finalized Date/Time: 11/25/19 12:48:49 Pt. Name: AMINA LIM /Sex: 1945 Male Med Rec #: [id number] Physician: Althea Koroma MD Financial #: [id number] Pt. Type: A Room/Bed: AS0A/ Admit/Disch: 11/25/19 [...] Signatures Signed By: Cynthia James RN 11/25/19 12:48NoWVUMedicine Barnesville HospitalPatient Education - Texton 34-28-1924Ruujxmj Education - TextNoWVUMedicine Barnesville HospitalBasic Metabolic Panlon 05-55-3041Cjhun gap [Moles/Vol]10 mmol/LNormal0-15 [facility] HospitalCalcium [Mass/Vol]8.4 mg/dLLow8.5-10.5[facility] HospitalChloride [Moles/Vol]106 mmol/YHwoxvm84-852Josetp HospitalCO2 [Moles/Vol]21 mmol/YUnq35-67 [facility] HospitalCreatinine [Mass/Vol]1.23 mg/dLNormal0.7-1.4[facility] Glucose [Mass/Vol]176 mg/kZBree91-819Woquow HospitalPotassium [Moles/Vol]4.1 mmol/LNormal3.5-5.0[facility] HospitalSodium [Moles/Vol]137 mmol/CWfgeob186-328 [facility] HospitalUrea nitrogen [Mass/Vol]22 mg/dLNormal8-25[facility]id HospitalCASE MANAGEMon 66-15-7871EUQF MANAGEMHNO ID: [id number] Author: Nichelle Henao (Sw) Service: ? Author Type: Local Government Legislator Type: Care Mgt Progress Note Filed: 07/17/2019 [...] 17, 2019 TIME: 11:04 AM PAGER/CONTACT #: [phone] HospitalCASE MGT INIT ASSESon 03-13-8467FVRI MGT INIT ASSESHNO ID: [id number] Author: Nichelle Henao (Sw) Service: ? 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 No Advance Directive: Current Advance Directive: None Filler Sifter Machine Attempted to Assist with AD Completion: Yes [...] None Has the Patient Been in a Alf Facility in the Past 30 days? No SOCIAL: Living Arrangement: Home Lives With: Spouse Financial Resources: Retired Primary Contact: Extended Emergency Contact Information Primary Emergency Contact: Tanja Lim Address: [address] [place] [address] Mobile Relation: Spouse Supportive: Yes Other Important [...] 0 I feel financially burdened by my pzw-ze-tppkui expenses for my prescription medication: Disagree completely [...] 17, 2019 TIME: 11:02 AM PAGER/CONTACT #: [phone] HospitalCBCon 16-67-3729Khikvbbd nRBC<0.01Normal<0.01Euclid HospitalErythrocyte distribution width (RBC) [Ratio]13.2 %Aggstx96.5-15.0[facility] HospitalHematocrit (Bld) [Volume fraction]32.9 %Low39.0-51.0[facility] HospitalHemoglobin (Bld) [Mass/Vol]11.0 g/dL Low13.0-17.0[facility] HospitalMCH (RBC) [Entitic mass]30.6 bPJebvbm48.0-34.0[facility] HospitalMCHC (RBC) [Mass/Vol]33.4 g/dMIljixu08.5-36.0[facility] HospitalMCV (RBC) [Entitic vol]91.6 mLIanuvd57.0-100.0[facility] HospitalPlatelet mean volume (Bld) [Entitic vol]10.4 fLNormal9.0-12.7E[facility]id HospitalPlatelets (Bld) [#/Vol]188 10*3/cXHnpqlf471-647Quoldq HospitalRBC (Bld) [#/Vol]3.59 10*6/uLLow4.20-6.00 [facility] HospitalWBC (Bld) [#/Vol]16.37 10*3/uLHigh3.70-11.00[facility] NURSING PROGon 10-05-0820UXGLSRE PROGHNO ID: [id number] Author: Prudence (Rn) DOLORES Bowen Service: Nursing Author Type: Registered Nurse Type: Nursing Progress Note Filed: 07/17/2019 1:33 PM Note Text: Nursing Progress Note Patient Name: Amina Lim Patient Location: [place]-517/ [place]-517-1 Daily Note:.Assumed care of patient, assessment completed, [...] summary. This note was completed by: Lorenzo DorantesLevi Hospital 88-13-6282XQEAISCARQB ID: [id number] Author: Sky Echols Service: General Internal Medicine [...] of care with Dr. Echols. Yeny Walters, LULÚ.SCRAP HOIST OPERATOR July 17, 2019 10:36 AM I have seen the patient and verified the exam. I have personally reviewed all labs and imaging results. I have discussed with the ROAD MECHANIC and I have participated in montelongo components. I agree with the note as documented with additional comments if needed. The assessment and plan as outlined are reflection of our discussion. Sky Echols MD July 17, 2019[facility] ID: [id number] Author: Rolly (Raquel Osullivan MD Service: Orthopaedic [...] (U/L) Date Value 07/27/2009 29 URINALYSIS Specific [place], Ur Date Value Ref Range Status 08/24/2009 [...] Osullivan MD Resident Physician PGY-2 Orthopaedic Surgery 84853 For urgent issues or if after 5:00 PM/weekends, please page [phone])Normal [facility] Rose HospitalTHERAPY NTon 81-07-4500SLATQCU NTHNO ID: [id number] Author: Roseanne Jenkins Service: Occupational Therapy Author Type: Occupational Therapist Type: Therapy (PT/OT/Speech/Resp) Filed: 07/17/2019 3:00 PM Note Text: Occupational Therapy Evaluation SERVICE DATE: 07/17/2019 SERVICE TIME: 0950 to 1020 ROOM: [address]-517[address]1 Recommended Discharge Disposition: Home Anticipated Discharge [...] Provided: Evaluation;Self [facility] ([id number]) $ Evaluation-Low (90021) Billed Units: 1 unit Self [facility] (73671) Treatment Minutes: 23 2 units Skilled Intervention(s): [...] Lim DATE: July 17, 2019 TIME: 2:46 [facility] NTO ID: [id number] Author: Roseanne (Ot) Gregory Service: Occupational Therapy Author Type: Occupational Therapist Type: Therapy (PT/OT/Speech/Resp) Filed: 07/17/2019 3:08 PM Note Text: Occupational Therapy Treatment SERVICE DATE: 07/17/2019 SERVICE TIME: 1155 to 1240 ROOM: [address] [address] Recommended Discharge Disposition: Home Anticipated Discharge Needs: [...] daily living (ADL) Interventions Provided: Therapeutic Exercise (58968);Self [facility] (88639) Therapeutic Exercise (51208) Treatment Minutes: 10 1 unit Skilled Intervention(s): Instruction in therapeutic exercise Verbal and tactile cuing provided Facilitation of muscle control, optimal recruitment and alignment Education in PROM shoulder to 90 degrees FF passively and work toward limit of 120 degrees. Spouse able to perform PROM to 90 degrees as well Self [facility] (06932) Treatment Minutes: 35 2 units Skilled Intervention(s): [...] Lim DATE: July 17, 2019 TIME: 3:04 [facility] CenterH[facility] ID: [id number] Author: Floresita Ray Service: Physical Therapy Author Type: Physical Therapist Type: Therapy (PT/OT/Speech/Resp) Filed: 07/17/2019 1:21 PM Note Text: PHYSICAL THERAPY MISSED VISIT SERVICE DATE: 07/17/2019 SERVICE TIME: 1320 to 1320 [address]: [address]1 (EU OR POST OP) Attempted Evaluation. Patient not seen due to No Skilled Needs. Patient's post op needs can be met by OT. Pt does not have any functional mobility impairment. Will discontinue PT order. SIGNATURE: Floresita Ray PT PATIENT NAME: Amina Lim DATE: July 17, 2019 TIME: 1:21 [facility] 81-38-3632BNPZZY HEALTHHNO ID: [id number] Author: Armen JacobsonRtTaina Redmond Service: Radiology Author Type: Automotive Sales Professional Type: [employer] [facility] Filed: 07/16/2019 3:56 PM Note Text: [...] BY: RT Elijah July 16, 2019 3:56 [facility] ID: [id number] Author: Armen Redmond (Rt) Service: Radiology Author Type: Automotive Sales Professional Type: [employer] [facility] Filed: 07/16/2019 3:47 PM Note Text: [...] BY: RT Elijah July 16, 2019 3:47 [facility] HospitalANES Gerry 46-16-7863HKML POSTHNO ID: [id number] Author: Jordan Desai Service: Anesthesiology Author Type: [...] 16, 2019 TIME: 5:30 PM PAGER/CONTACT #: [phone] General Hospital PREOPon 07-16-2019 ANES PREOPHNO ID: [id number] Author: Jordan Desai Service: Anesthesiology Author Type: [...] Take 1 tablet by mouth once daily. Dcsrw-6-HDC-EPA-Fish Oil (FISH OIL) 1,000 mg (120 mg-180 mg) cap Take 1 g by mouth once daily. Lecithin 1,200 mg cap Take 1 capsule by mouth once daily. lovastatin (MEVACOR) 20 mg tablet Take 20 mg by mouth daily at bedtime. multivitamin (MULTIPLE VITAMINS) tablet Take 1 tablet by mouth once daily. Saw Pla[place]ow 160 mg capsule Take 160 mg by [...] MD DATE: July 16, 2019 TIME: 10:51 [facility] 47-67-4382IEAVMUOFOE ID: [id number] Author: Yeny Walters Service: General Internal Medicine [...] by mouth once daily. Disp: Rfl: 07/05/2019 Mmzsy-8-TKM-EPA-Fish Oil (FISH OIL) 1,000 mg (120 mg-180 [...] mouth once daily. Disp: Rfl: 07/05/2019 Saw [place] 160 mg capsule Take 160 mg by [...] the care of your patient. Yeny Walters APRN.SCRAP HOIST OPERATOR July 16, 2019 5:46 PMNormalUnited Memorial Medical CenterOPERATIVE NOon 08-11-3328EDLFMTDTV NOHNO ID: [id number] Author: Anshu Thomas Service: Orthopaedic Surgery Author Type: Physician Type: Operative Report Filed: 07/16/2019 3:21 PM Note Text: [place] [address] [place] OPERATIVE REPORT NAME: Amina [facility] #: [id number] DATE: 07/16/2019 (1:12pm-3:12pm) AGE: 74 SURGEON 1: Anshu Thomas M.D. DATA REVIEW SPECIALIST: 1. Brain Kay M.D. 2. Rolly Osullivan [...] INDICATIONS: The patient is a 74 year oldfhh-vqdj-qts right-hand dominant white male who has a [...] a #2 Ticron suture passed in a uofzlm-sj-krfhq fashion. Following this, all retractors were removed, [...] SPECIMENS: none COMPLICATIONS: none apparent Anshu Thomas M.D.[facility] CenterXR SHOULDER SPECIFY 1V RTon 15-06-2991MR SHOULDER SPECIFY 1V RT* * *Final Report* [...] 16 2019 3:57PM EST [id number] HospitalNURSING PROGon [id number] PROG HNO ID: [id number] Author: Norma (Rn) Kyree RN Service: Nursing [...] Review: N/A Narrative: N/A Pre-op Considerations: PER [facility] HX CLARENCE- CPAP at night History of Prostate CA with Radiation and insertion of Seeds CKD follows with Nephrology Chart Check: IN PROGRESS NEED FINAL EKG Marialuisa Cates RN June 27, 2019 1:24 PM July 15, 2019 8:38 AM Final EKG from 06/25/19--Sinus allegar (57bpm) Norma Adorno RNForbes Hospital HospitalType and SCR (30D)on 51-44-9080XGF/RH(D) PositiveForbes Hospital HospitalHOSPon 77-58-0577WCLAOcuuuop:Amina Lim MRN: Height:5' 10.5 (1.791 m) Weight:211 [...] (VITAMIN C) 1,000 mg tablet [employer] Vjbtj-6-LIL-EPA-Fish Oil (FISH OIL) 1,000 mg (120 mg-180 mg) cap Lecithin 1,200 mg cap lovastatin (MEVACOR) 20 mg tablet multivitamin (MULTIPLE VITAMINS) tablet Saw Plaistow 160 mg capsule vitamin b complex tab [...] progress notes entered within the past 30 daysVeterans Administration Medical CenterXR SHLDR >/=3V AP/RADHA AP/OTHR LTon 90-86-4302HS SHLDR >/=3V AP/RADHA AP/OTHR LT* * *Final [...] MD on Dec 10 2018 9:43AM EST [id number] Health Women & Children's HospitalXR SHLDR >/=3V AP/RADHA AP/OTHR RTon 99-31-0157VQ SHLDR >/=3V AP/RADHA AP/OTHR RT* * *Final [...] MD on Dec 10 2018 9:37AM EST [id number] Vital Signs Date TimeVital SignValuePerforming InkjbvetxLjjuiiqt94-92-7326 10:21-0500Body vpikga358.1 cmRhyagustina Salgado DO Work Phone: [phone] health system marietta memorial hospitaland Amutyg05-25-0651 10:21-0500Body mass index (BMI) [Ratio]28.84 kg/r7Ckrnv Junioritz DO Work Phone: PlevelUniversity Hospitals St. John Medical CenterFwgwft26-39-8408 10:21-0500Body qvesiq46.5 kgRhakiko Salgado DO Work Phone: Omemorial health system marietta memorial hospitaland Rgywqu57-27-2918 10:21-0500Diastolic blood mm[Hg]Lyndsay Salgado DO Work Phone: Tmemorial health system marietta memorial hospitaland Ogbnwx51-29-3855 10:21-0500Heart rate64 /min Lyndsayakiko Salgado DO Work Phone: Ymemorial health system marietta memorial hospitaland Xkmknj14-78-4744 10:21-0500Systolic blood hsrbtwib657 mm[Hg]Lyndsay Salgado DO Work Phone: YGerman HospitalOmypdc56-81-8743 13:14-0400Body .8 cmMattrolakassie iTlley PA Work Phone: [facility] HospitalRtflkburjl43-65-8681 13:14-0400Body mass index (BMI) [Ratio]29.96 kg/r4Iodedqk Tilley PA Work Phone: [facility] HospitalUpwffpkpkj40-16-7847 13:14-0400Body wehqgv08.71 kgMattyanet Tilley PA Work Phone: [facility] HospitalHvllsviyro43-30-3918 09:10-0400Body zzasbg792.1 cmRcheri Salgado DO Work Phone: GGerman HospitalEvmeft99-79-2086 09:10-0400Body oumciz73.53 kgRhakiko Salgado DO Work Phone: Umemorial [facility] system marietta memorial hospitaland Xaobyo11-75-3281 09:10-0400Diastolic blood xgoqpmxc31 mm[Hg]Lyndsay Salgado DO Work Phone: [place] Vvegdw16-87-9988 09:10-0400Heart rate43 /min Lyndsay Maditz DO Work Phone: cmemorial health system marietta memorial hospitaland Fintxd02-30-0654 09:10-0400Systolic blood znugtbqt830 mm[Hg]Lyndsay Salgado DO Work Phone: cGerman HospitalCxmupx93-74-9336 11:20-0500Body zpryuy279.8 cmAaleksjose Irelandyessica Other [employer] Other 11-22-2022 11:20-0500Body mass index (BMI) [Ratio]29.9 kg/m2Yudith Shuyessica Other [employer] Other 11-22-2022 11:20-0500Body pcxjunzgiog42.5 [degF]Yudith Rubin Other [employer] Other 11-22-2022 11:20-0500Body ionmjr66.53 kgYudith Shuyessica Other [employer] Other 11-22-2022 11:20-0500Diastolic blood rewvacuf31 mm[Hg] Yudith Rubin Other [employer] Other 11-22-2022 11:20-0500Respiratory rate18 /minYudith Rubin Other [employer] Other 11-22-2022 11:20-7114ToR9% (BldA) [Mass fraction]98 % Yudith Rubin Other [employer] Other 11-22-2022 11:20-0500Systolic blood ohiztamw166 mm[Hg] Yudith Shuyessica Other [employer] Other 12-08-2021 11:20-0500Body zzosjk182.8 cmEjocelyn Earl Other [facility] [employer] Other 12-08-2021 11:20-0500Body mass index (BMI) [Ratio] 30.93 kg/t3QegfaIleana Earl Other [facility] [employer] Other 12-08-2021 11:20-0500Body oqwqtcanzqm08.4 [degF]Ileana Earl Other [facility] [employer] Other 12-08-2021 11:20-0500Body wmuwer70.8 kgIleana Earl Other [place] [employer] Other 12-08-2021 11:20-0500Diastolic blood mhibqiwp75 mm[Hg] Ileana Earl Other [place] [employer] Other 12-08-2021 11:20-0500Respiratory rate18 /minEjocelyn Earl Other [place] [employer] Other 12-08-2021 11:20-0758CqB3% (BldA) [Mass fraction]97 % Ileana Earl Other [place] [employer] Other 12-08-2021 11:20-0500Systolic blood adeapxnd160 mm[Hg] Ileana Earl Other [place] [employer] Other Encounters Encounter DateEncounter TypeCare ProviderFacilityStart: 06-27-2025 End: 59-80-8072rhqcoendztUFIFJProvidence Hospitaltart: 11-07-2024 End: 55-00-3875Toauby flowsheetMazenia MOSELEY Work Phone: noms SWS ORTHOStart: 11-07-2024 End: 37-05-4199Lpfxqh flowsheetQueta MOSELEY Work Phone: noms SWS ORTHOStart: 11-07-2024 End: 45-73-4985Rrgrey follow up visit related to original Robyn MOSELEY Work Phone: noms SWS ORTHOComment on above:S/P TKR (total knee replacement), left (Primary Dx)Start: 11-07-2024 End: 65-85-5084xqreqbiameRRNFZLP J MEYERMiss[facility] AvailableStart: 10-28-2024 End: 95-10-4704wphenraanwJPDZTSelect Medical Specialty Hospital - Akrontart: 10-22-2024 End: 97-90-3829iwxfzerdfnBQRTAIX M HOYFacility:Community [facility] Hospitaltart: 10-22-2024 End: 19-62-7241Xxvjpja encounter procedureLyndsay Salgado DO Work Phone: Kidney MedicineComment on above:Stage 3a chronic kidney disease (HCC) (Primary Dx); Anemia of renal disease; Secondary renal hyperparathyroidism (HCC); Primary hypertension; SVT (supraventricular tachycardia) (HCC)Start: 10-18-2024 End: 48-07-2959pfhqknnlvvCqfbru Hisey PTANOMS NM PTComment on above:Acute postoperative pain of left knee (Primary Dx); S/P total knee replacement, leftStart: 10-17-2024 End: 96-24-1932Ttrgpxarl encounterDiana Lyla DO Work Phone: Kidney MedicineStart: 10-08-2024 End: 43-40-0701axpnltdubmRhvm M Medves PT Work Phone: noms NM PTComment on above:Acute postoperative pain of left knee (Primary Dx); S/P total knee replacement, leftStart: 10-03-2024 End: 95-01-7014Xsmcuy flowsheetQueta MOSELEY Work Phone: NOMS SWS ORTHOStart: 10-03-2024 End: 84-54-6835Vlkood flowsJerilyn MOSELEY Work Phone: NONJ SWS ORTHOStart: 10-03-2024 End: 70-80-5387Dheaad follow up visit related to original Robyn MOSELEY Work Phone: noms SWS ORTHOComment on above:S/P TKR (total knee replacement), left (Primary Dx); Acute pain of left kneeStart: 10-03-2024 End: 78-99-7341okfbgpvdxjDdme M Medves PT Work Phone: NOMS NM PTComment on above:Acute postoperative pain of left knee (Primary Dx); S/P total knee replacement, leftStart: 09-30-2024 End: 24-31-6001rwrorfmtheXxcg M Medves PT Work Phone: NOMS NM PTComment on above:Acute postoperative pain of left knee (Primary Dx); S/P total knee replacement, leftStart: 09-27-2024 End: 15-36-0664Jkqdxs Danitza Sousa PT Work Phone: [phone] NM PTStart: 09-27-2024 End: 35-73-4044Ekwvsm Danitza Sousa PT Work Phone: [phone] NM PTStart: 09-27-2024 End: 99-02-2196gpvqaoslwrMAFVTU J EVANSNot AvailableStart: 09-23-2024 End: 27-34-9050Rttniy flowsheetRyan M Medves PT Work Phone: NOMS NM PTStart: 09-23-2024 End: 42-03-2425Bfopso flowsheetRyan M Medves PT Work Phone: NOMS NM PTStart: 09-23-2024 End: 88-61-0418xpvhtmatruZoeo M Medves PT Work Phone: [phone] NM PTComment on above:Acute postoperative pain of left knee (Primary Dx); S/P total knee replacement, leftStart: 09-18-2024 End: 87-27-3626Rsyjni flowsheetTanner Hisey PTANOMS NM PTStart: 09-18-2024 End: 29-66-6419Udcnnh flowsheetTanner Hisey PTANOMS NM PTStart: 09-18-2024 End: 27-97-2190rtcshntgyfPgchbq Hisey PTANOMS NM PTComment on above:S/P total knee replacement, left (Primary Dx); Acute postoperative pain of left kneeStart: 09-16-2024 End: 84-98-2801Rqmkca Danitza Sousa PT Work Phone: NOMS NM PTStart: 09-16-2024 End: 25-39-1184Mngrrv Danitza Sousa PT Work Phone: [phone] NM PTStart: 09-16-2024 End: 44-15-7220hgmbdsggbpEoaoen J Evans PT Work Phone: NOMS NM PTComment on above:S/P total knee replacement, left (Primary Dx); Acute postoperative pain of left kneeStart: 09-11-2024 End: 64-48-7628Vcdlvs Danitza Sousa PT Work Phone: NOMS NM PTStart: 09-11-2024 End: 20-42-8770Pzdxhs Danitza Sousa PT Work Phone: NOMS NM PTStart: 09-11-2024 End: 76-14-1182xjtwklwtawUzpljl J Evans PT Work Phone: NOMS NM PTComment on above:S/P total knee replacement, left (Primary Dx); Acute postoperative pain of left kneeStart: 09-09-2024 End: 15-87-4054cesfnmbbnmJtldyn J Evans PT Work Phone: NOMS NM PTComment on above:S/P total knee replacement, left (Primary Dx); Acute postoperative pain of left kneeStart: 09-09-2024 End: 18-89-8681Fgfzij Danitza Sousa PT Work Phone: NOIY NM PTStart: 09-09-2024 End: 38-02-7022Cpzifz Danitza Sousa PT Work Phone: NOBY NM PTStart: 09-05-2024 End: 21-11-2553Gfjbdn flowsJerilyn MOSELEY Work Phone: NOGG SWS ORTHOStart: 09-05-2024 End: 73-85-2369Qhquxp Nga MOSELEY Work Phone: noms SWS ORTHOStart: 09-05-2024 End: 36-92-6245Dfqvzp follow up visit related to original Robyn MOSELEY Work Phone: noms SWS ORTHOComment on above:S/P TKR (total knee replacement), left (Primary Dx); Post-operative painStart: 09-05-2024 End: 33-45-0782camxwepzbxYDDVYVK J MEYERNot AvailableStart: 08-29-2024 End: 41-87-8014YuvtncBhhyt T [address] MECHANIC Work Phone: NOYK FB ORTHOPAEDICSComment on above:Post-operative painStart: 08-21-2024 End: 69-67-1917YdummrIvlxw T [address] MECHANIC Work Phone: noms FB ORTHOPAEDICSComment on above:Post-operative pain (Primary Dx)Start: 08-20-2024 End: 96-26-7015Dlmxat OnlyQueta MOSELEY Work Phone: [phone]-EWYJ ATLASComment on above:Encounter for other preprocedural examinationStart: 08-20-2024 End: 25-12-1895Zbvvymw encounter statusQueta MOSELEY Work Phone: ProOhio[facility] Hospitalca Health SystemStart: 08-14-2024 End: 70-87-7099Cpppllbzh encounterJr. El Ruiz DO Work Phone: noms SWS ORTHOComment on above:SurgeryStart: 08-13-2024 End: 73-94-1056xiaeqfmkmuCQMECIT J MEYERDiley Ridge Medical Centertart: 48-56-4862Pexgyahuj for other preprocedural examinationMATTYANET [facility] Limatart: 08-13-2024 End: 78-92-6742Iysnmwss Result EncounterMazenia MOSELEY Work Phone: [facility] External Department UnsolicitedStart: 08-13-2024 End: 45-97-7013Kiewtvus Result EncounterMazenia MOSELEY Work Phone: noms External Department UnsolicitedStart: 08-13-2024 End: 47-78-9797Qwkfkc OnlyMazenia MOSELEY Work Phone: [phone]-JWRD ATLASComment on above:Encounter for other preprocedural examinationStart: 08-13-2024 End: 38-18-6905Oinaueu encounter statusQueta MOSELEY Work Phone: [facility] SystemStart: 08-13-2024 End: 55-64-5183Htyszvc encounter procedureMazenia MOSELEY Work Phone: noms FB ORTHOPAEDICSComment on above:Preop examination (Primary Dx); Primary osteoarthritis of left knee; Eczema, unspecified typeStart: 08-13-2024 End: 45-87-3021Kjjyuonwlocrl examination doneMazenia MOSELEY Work Phone: noms HealthcareStart: 08-13-2024 End: 98-79-6721jbjgbhrpuvWZHIKCP J MEYERNot AvailableStart: 08-07-2024 End: 99-21-8776Qcnytc flowsheetJgreg Ruiz DO Work Phone: n[facility]Start: 08-07-2024 End: 02-57-7435Kpnttu flowsheetJgreg Matos Stepjayce DO Work Phone: noms [facility] ORTHOStart: 08-07-2024 End: 68-78-8398blvchjevwdLB.EL AvailableStart: 08-07-2024 End: 23-42-4892Leiyuf outpatient visit 25 minutesJr. El Ruiz DO Work Phone: noms SWS ORTHOComment on above:Acute pain of right knee (Primary Dx); History of right knee joint replacement; Primary osteoarthritis of left kneeStart: 06-26-2024 End: 23-24-4101Obphzz flowsheetJr. El Ruiz DO Work Phone: NOOB SWS ORTHOStart: 06-26-2024 End: 45-96-0043Pvczqh flowsheetJr. El Ruiz DO Work Phone: noms SWS ORTHOStart: 06-26-2024 End: 34-59-7563Myuonf follow up visit related to original pxJr. El Ruiz DO Work Phone: noms SWS ORTHOComment on above:S/P TKR (total knee replacement), right (Primary Dx); Primary osteoarthritis of left kneeStart: 06-26-2024 End: 77-47-0202inxdthlvcbPU., EL Fabian AvailableStart: 05-16-2024 End: 75-78-3798dtwllrznozREMZ M MEDVESNot AvailableStart: 05-15-2024 End: 07-68-4981czbgpeqbwlTKIVJJR J MEYERNot AvailableStart: 05-14-2024 End: 11-07-8072inqslkhepcAKTOAX HISEYNot AvailableStart: 05-08-2024 End: 53-66-5114lucqewlinmROHVGEMA HAHNNot AvailableStart: 05-06-2024 End: 49-74-6241fvzkepswgqHOHLYR GUZIKNot AvailableStart: 05-01-2024 End: 49-21-6438hklkbfqjeaBGLIOQRQ LEENot AvailableStart: 04-29-2024 End: 52-73-0395dwurlyhjuzJGGEVEHU HAHNNot AvailableStart: 04-26-2024 End: 78-55-1631sowxqyszztSKKAHN NIDAZIKNot AvailableStart: 04-24-2024 End: 01-29-5752qoyhzmfvrlQGZUSG SAHARAKNot AvailableStart: 04-22-2024 End: 27-68-0330ytbvtgkfraYEWU M MEDVESNot AvailableStart: 04-17-2024 End: 59-14-5589mpzfeomtkvYQWFGFH J MEYERNot AvailableStart: 03-20-2024 End: 34-53-9880dtfjiawozaVLKM M MEDVESNot AvailableStart: 03-18-2024 End: 26-88-4456Tanphcg encounter procedureMD Narciso Bullock Work Phone: [facility] Work Phone: Start: 03-18-2024 End: 65-29-4340knqiybwhmuIH Narciso Bullock Work Phone: [facility] Work Phone: Start: 67-55-6927Knhkxifho for other preprocedural examinationMatthew Medina Hospital Physician GroupStart: 03-18-2024 End: 39-87-0373bbvkypjckiFULDVOU J MEYERNot AvailableStart: 02-02-2024 End: 03-83-1221zhggwomcuhNMEL Billy AvailableStart: 05-24-2023 ambulatoryNo [facility] EnterpriseStart: 05-16-2023 End: 74-58-0222Vshromo encounter procedureLyndsay Salgado DO Work Phone: [facility] MedicineComment on above:Chronic kidney disease, unspecified CKD stage (Primary Dx); Bradycardia; Generalized pain; Anemia of renal disease; Primary hypertensionStart: 31-15-6856mhxfmhdsfdHF NARCISO BULLOCK .Facility:R7Vepgk: 10-03-2022 End: 99-49-1958iugrygwhwwYW NARCISO BULLOCK .Facility:X4Twicj: 09-06-2022 End: 66-64-5395mgneawoiafNhna Bakhous Other [place] [employer] Other Start: 29-44-7205Vjfino outpatient visit 15 minutes Yudith IrelandsFPG NephrologyStart: 09-01-2022 End: 55-06-9210upqrjaedktTY NARCISO HOY .Facility:Y2Lixyc: 09-01-2022 End: 28-68-6651bkmumiptkoXD NARCISO HOY .Facility:U9Tylgh: 09-22-2021 End: 70-69-7236qkmzweecwyUjkic Elashi Other [facility] [employer] Other Start: 87-87-1235Reyfzq outpatient visit 15 minutes Ileana EarlFPG NephrologyStart: 12-10-2018 End: 60-15-2192Pyfczhe encounter procedureSaint [facility] Procedures DateProcedureProcedure DetailPerforming ClinicianStart: 20-18-1742Iwbrvlbrcx examination knee 1/2 viewsMazenia MOSELEY Work Phone: Start: 01-65-6982Ddvyixglxqwcrx time partial plasma/whole bloodMazenia MOSELEY Work Phone: Start: 18-61-4766QAX screeningDR NARCISO BULLOCK .Comment on above:Performed By: #### [facility] #### [facility] [address] [place] [address] Dr. Xena PickardStart: 00-84-7536Sgnrkewz screenHistory of operative procedure on kneeHistory of right knee joint replacementJr. El Ruiz DO Work Phone: Plan of Treatment DateCare ActivityDetailAuthorStart: 62-36-5657Tbdrytti ScreeningDiabetes ScreeningCleveland ClinicStart: 11-03-2025 End: 88-80-6269Gbymdvl encounter /19/2026 8:30 AM EST Office Visit [facility] [address] [place] [phone] Queta Tilley PA [address] [place] [address] NOMS SWS ORTHOStart: 10-16-2025 End: 23-91-425876798515-xnpwmjpoanhrtd D3 [Mass/volume] in Serum or PlasmaVITAMIN D 25 HYDROXY Lab Routine Stage 3a chronic kidney disease (HCC) Expected: 10/16/2025, Expires: 01/15/2026leveland ClinicComment on above:Expected: 10/16/2025, Expires: 01/15/2026Start: 10-16-2025 End: 35-49-6358FCV panel - Blood by Automated countCOMPLETE BLOOD COUNT Lab Routine Stage 3a chronic kidney disease (HCC) Expected: 10/16/2025, Expires: 01/15/2026leveland ClinicComment on above:Expected: 10/16/2025, Expires: 01/15/2026Start: 10-16-2025 End: 66-62-6324Ghusutoyki.intact [Mass/volume] in Serum or PlasmaPTH INTACT Lab Routine Stage 3a chronic kidney disease (HCC) Expected: 10/16/2025, Expires: 01/15/2026leveland ClinicComment on above:Expected: 10/16/2025, Expires: 01/15/2026Start: 10-16-2025 End: 86-52-8225Jhubinv/Creatinine [Mass Ratio] in UrinePROTEIN / CREATININE RATIO Lab Routine Stage 3a chronic kidney disease (HCC) Expected: 10/16/2025, E xpires: 01/15/2026leveland ClinicComment on above:Expected: 10/16/2025, Expires: 01/15/2026Start: 10-16-2025 End: 47-83-6717Epxvg function 2000 panel - Serum or PlasmaRENAL FUNCTION PANEL Lab Routine Stage 3a chronic kidney disease (HCC) Expected: 10/16/2025, Expires: 01/15/2026[facility] Work Phone: comment on above:Expected: 10/16/2025, Expires: 01/15/2026Start: 10-16-2025 End: 89-13-0026Rpttgfjysb complete panel - UrineURINALYSIS, WITH MICROSCOPIC Lab Routine Stage 3a chronic kidney disease (HCC) Expected: 10/16/2025, Expires: 01/15/2026leveland ClinicComment on above:Expected: 10/16/2025, Expires: 01/15/2026Start: 00-11-2292Ptpvygen blood countHemoglobin/HematocritMorrow County Hospitaltart: 06-96-5742Uorgjnunnn measurementSerum CreatinineFairfield Medical Center Start: 11-07-2024 End: 03-58-1251Fcwrlah encounter procedureNOMS SWS ORTHOComment on above:S/P TKR (total knee replacement), left (Primary Dx)Start: 10-22-2024 End: 94-22-4620Ugnggsp encounter wvkdzaqhq59/07/2025 10:20 AM EST Office Visit Kidney Medicine [address] [place] [address] Lyndsay Salgado DO [address] [place] [address] 1 yearKidney MedicineComment on above:1 yearStart: 10-18-2024 End: 37-25-7699ugbqtrauvj27/03/2025 8:30 AM EST Treatment [facility] [address] [place] [address] Giacomo Jones PTANOMS NM PTStart: 10-17-2024 End: 188898-samkuuyomjfhna D3 [Mass/volume] in Serum or PlasmaVITAMIN D 25 HYDROXY Lab Routine Stage 3 chronic kidney disease, unspecified whether stage 3a or 3bCKD (HCC) Expected: 10/17/2024, Expires: 01/16/20[facility] Comment on above:Expected: 10/17/2024, Expires: 01/16/2025Start: 10-17-2024 End: 53-00-2301QMD panel - Blood by Automated countCOMPLETE BLOOD COUNT Lab Routine Stage 3 chronic kidney disease, unspecified whether stage 3a or 3bCKD (HCC) Expected: 10/17/2024, Expires: 01/16/2025leveland ClinicComment on above: Expected: 10/17/2024, Expires: 01/16/2025Start: 10-17-2024 End: 63-15-5104Dekqlvqolaap/Creatinine [Mass Ratio] in UrineALBUMIN/CREATININE RATIO, URINE Lab Routine Stage 3 chronic kidney disease, unspecified whether stage 3a or 3b CKD (HCC) Expected: 10/17/2024, Expires: 01/16/2025[facility] Work Phone: Comment on above:Expected: 10/17/2024, Expires: 01/16/2025Start: 10-17-2024 End: 40-88-7501Zfehncectm.intact [Mass/volume] in Serum or PlasmaPTH INTACT Lab Routine Stage 3 chronic kidney disease, unspecified whether stage 3a or 3b CKD (HCC)Expected: 10/17/2024, Expires: 01/16/2025leveland ClinicComment on above: Expected: 10/17/2024, Expires: 01/16/2025Start: 10-17-2024 End: 32-23-0385Vwrdwzb/Creatinine [Mass Ratio] in UrinePROTEIN / CREATININE RATIO Lab Routine Stage 3 chronic kidney disease, unspecified whether stage 3aor 3b CKD (HCC) Expected: 10/17/2024, Expires: 01/16/2025leveland ClinicComment on above:Expected: 10/17/2024, Expires: 01/16/2025Start: 10-17-2024 End: 83-38-2649Ekvbv function 2000 panel - Serum or PlasmaRENAL FUNCTION PANEL Lab Routine Stage 3 chronic kidney disease, unspecified whether stage 3a or 3b CKD (HCC) Expected: 10/17/2024, Expires: 01/16/2025[facility] ClinicComment on above:Expected: 10/17/2024, Expires: 01/16/2025Start: 10-17-2024 End: 41-65-5400Kabivzrgge complete panel - UrineURINALYSIS WITH MICROSCOPIC, REFLEX CULTURE Lab Routine Stage 3 chronic kidney disease, unspecifiedwhether stage 3a or 3b CKD (HCC) Expected: 10/17/2024, Expires: 01/16/2025leveland ClinicComment on above:Expected: 10/17/2024, Expires: 01/16/2025Start: 90-16-2342Fzkarhd Directive DiscussionAdvance Directive DiscussionCleveland ClinicStart: 10-08-2024 End: 22-46-9848qgkforaahu03/24/2024 10:15 AM EST Treatment [facility] [address] [place] [address] Shirlene Blakely, PT [address] [place] [address] NOMS NM PTStart: 10-03-2024 End: 52-30-0493jmcvqrgnkd20/19/2024 10:00 AM EST Treatment [facility] [address] [place] [address] Shirlene Blakely, PT [address] [place] [address] NOMS NM PTStart: 10-03-2024 End: 98-78-6164Vjmrksl encounter procedureNOMS SWS ORTHOComment on above:S/P TKR (total knee replacement), left (Primary Dx)Start: 09-30-2024 End: 16-85-9709doihfompfb69/16/2024 5:30 PM EST Treatment [facility] [address] [place] [address] Roseanne Sousa, PT [address] [place] [address] NOMS NM PTStart: 09-30-2024 End: 85-74-8657jbmdomnxfe22/16/2024 10:30 AM EST Treatment [facility] [address] [place] [address] Ameena Mahajan PTANOMS NM PTStart: 09-27-2024 End: 16-51-0401kkscrocpsbGQAQ NM PTComment on above:ArrivedStart: 09-23-2024 End: 66-47-0214mzairpymjzZAXE NM PTComment on above:Acute postoperative pain of left knee (Primary Dx); S/P total knee replacement, leftStart: 09-20-2024 End: 91-93-0859mvpnudfilh38/06/2024 8:45 AM EST Treatment [facility] [address] [place] [address] Roseanne Sousa, PT [address] [place] [address] NOMS NM PTStart: 09-18-2024 End: 86-64-3833rgrvuavrjf70/04/2024 9:00 AM EST Treatment [facility] [address] [place] [address] Giacomo Jones PTANOMS NM PTStart: 09-16-2024 End: 74-47-3031urjvvqbafePKUU NM PTComment on above:ArrivedStart: 09-11-2024 End: 07-90-5835votztezwjoTSRU NM PTComment on above:ArrivedStart: 09-09-2024 End: 48-72-1532hygqhhqsieGJWW NM PTComment on above:S/P total knee replacement, leftStart: 09-05-2024 End: 09-08-2909Vydaivt encounter procedureNOMS [facility] ORTHOComment on above:S/P TKR (total knee replacement), left (Primary Dx)Start: 08-13-2024 End: 29-95-5856Gnfsvho dipstick, urineGlucose dipstick, urine Lab Routine Encounter for other preprocedural examination Expected: 08/13/2024, Expires: 08/20/2025[facility] Work Phone: Comment on above:Expected: 08/13/2024, Expires: 08/20/2025Start: 08-09-2024 End: 40-01-7102cCZD in Blood by Coagulation assayAPTT Lab Routine Preop examination Expected: 08/09/2024 (Approximate), Expires: 08/09/2025[facility] Work Phone: Comment on above:Expected: 08/09/2024 (Approximate), Expires: 08/09/2025Start: 08-09-2024 End: 97-69-7366Cymhklct identified in Urine by CultureNOND HealthcareComment on above:Expected: 08/09/2024 (Approximate), Expires: 08/09/2025Expected: 08/09/2024, Expires: 08/13/2025Start: 08-09-2024 End: 78-54-9376LAO W Auto Differential panel - BloodCBC auto differential Lab Routine Preop examination Expected: 08/09/2024 (Approximate), Expires: HealthcareComment on above:Expected: 08/09/2024 (Approximate), Expires: 08/09/2025Start: 08-09-2024 End: 65-59-4587Ulusicvbmgkvv metabolic 2000 panel - Serum or PlasmaComprehensive metabolic panel Lab Routine Preop examination Expected: 08/09/2024 (Approximate), Expires: 08/09/2025 HealthcareComment on above:Expected: 08/09/2024 (Approximate), Expires: 08/09/2025Start: 08-09-2024 End: 07-13-3411Ypzqzjvxdlx time (PT) in Blood by Coagulation assayProtime-INR Lab Routine Preop examination Expected: 08/09/2024 (Approximate), Expires: 08/09/2025 HealthcareComment on above:Expected: 08/09/2024 (Approximate), Expires: 08/09/2025Start: 08-09-2024 End: 62-27-9155Pgpsbsjyxu complete panel - UrineUrinalysis with reflex microscopic Lab Routine Preop examination Expected: 08/09/2024 (Approximate), Expires: 08/09/2025 HealthcareComment on above:Expected: 08/09/2024 (Approximate), Expires: 08/09/2025Start: 08-09-2024 End: 67-70-3041KE Femur and Tibia Views for leg lengthXR lower extremity leg length evaluation Imaging Routine Preop examination Expected: 08/09/2024 (Mari roximate), Expires: 08/09/2025 HealthcareComment on above:Expected: 08/09/2024 (Approximate), Expires: 08/09/2025Start: 08-07-2024 End: 55-11-4381Javhvff encounter fozzugdgu25/23/2024 10:00 AM EDT Office Visit [facility] [address] [place] [phone] Jr. El Ruiz, DO [address] [facility] [address] [place] [address] [facility] ORTHOStart: 06-26-2024 End: 77-83-1822Fulbbbg encounter blkayswuz12/11/2024 11:15 AM EDT Office Visit [facility] [address] [place] [phone] Jr. El Ruiz, DO [address] [facility] [address] [place] [address] ArrivedNOORANGE COUNTY COMMUNITY [facility]OSPITAL ORTHOComment on above: ArrivedStart: 86-10-8782Ywuzu-19 Vaccine ( season)Covid-19 Vaccine ()[facility] Hospitaltart: 21-00-1232Qamtoakxg vaccinationLAKEVIEW HOSPITAL HealthcareStart: 25-50-7844Pwmiacnr blood countHemoglobin/HematocritMorrow County Hospitaltart: 62-82-5112Kdmtbndmdi measurementSerum CreatinineFairfield Medical Center Start: 91-54-2669PUTBEPKOFY/HEMATOCRITHEMOGLOBIN/HEMATOCRITFairfield Medical Center Start: 32-76-7821TFJFJ CREATININESERUM CREATININEMorrow County Hospitaltart: 78-13-5547Jyeshufj identified in Urine by CulturePaulding County Hospitaltart: 95-79-7320Tgpndyqmj vaccinationINFLUENZA (#1)[facility] Hospitaltart: 05-16-2023 End: 93-01-324034255343-nfzxfhqdtabsnf D3 [Mass/volume] in Serum or PlasmaVITAMIN D 25 HYDROXY Lab Routine Chronic kidney disease, unspecified CKD stage Expected: 05/16/2023, Expires: 07/16/2023[facility] Work Phone: comment on above:Expected: 05/16/2023, Expires: 07/16/2023Start: 05-16-2023 End: 71-30-2151REACZTGPKO PROTEIN, SERUM (BLOOD)MONOCLONAL PROTEIN, SERUM (BLOOD) Lab Routine Chronic kidney disease, unspecified CKD stage Expected: 05/16/2023, Expires: 07/16/2023[facility] Work Phone: comment on above:Expected: 05/16/2023, Expires: 07/16/2023Start: 05-16-2023 End: 67-51-9661Vcqsabeeyk.intact [Mass/volume] in Serum or PlasmaPTH INTACT BLD Lab Routine Chronic kidney disease, unspecified CKD stage Expected: 05/16/2023, Expires: 07/16/2023[facility] Work Phone: comment on above:Expected: 05/16/2023, Expires: 07/16/2023Start: 52-09-9913EXAFIQI DIRECTIVE DISCUSSIONADVANCE DIRECTIVE DISCUSSIONMorrow County Hospitaltart: 61-13-9639VTZYWNNCLW ASSESSMENTDEPRESSION ASSESSMENTMorrow County Hospitaltart: 33-61-7758HCMAEQMU SCREENDIABETES SCREEN [facility]: 75-35-0511Vbgcemhh ScreeningDiabetes ScreeningMorrow County Hospitaltart: 91-90-8597GLS Vaccine (1 - 1-dose 75+ series)RSV Vaccine (1 - 1- dose 75+ series)[facility]: 92-01-9810EFQOK-19 VACCINE (3 - Pfizer series)COVID-19 VACCINE (3 - Pfizer series)[facility]: 07-17-2020 HEMOGLOBIN/HEMATOCRITHEMOGLOBIN/HEMATOCRITMorrow County Hospitaltart: 30-64-8411RQJHL CREATININESERUM CREATININEMorrow County Hospitaltart: 80-43-2109RMLELGPJRTGJ: 65+ (2 - PCV)PNEUMOCOCCAL: 65+ (2 - PCV)[facility]: 51-96-2860Rgql Risk ScreeningFall Risk ScreeningGreen Cross [facility] SystemStart: 1996 Administration of varicella zoster vaccineZoster (Shingles) Vaccine (1 of 2) [facility]: 01-49-3325VCICTYRU VACCINE (1 of 2)SHINGRIX VACCINE (1 of 2)[facility]: 81-01-3398XNiR,Tdap and Td Vaccines (1 - Tdap)DTaP,Tdap and Td Vaccines (1 - Tdap)[facility]: 98-68-8083Fkmrl microalbumin profileMorrow County Hospitaltart: 02-11-5286Ungdi BMI ScreeningAdult BMI ScreeningProMartin Memorial Hospitaltart: 23-58-6290LWPIDP PCP TEAM CHRONIC DISEASE VISITANNUAL PCP TEAM [facility]ISIT[facility] Start: 30-90-7568Virtasy ScreeningAnxiety ScreeningMorrow County Hospitaltart: 27-88-0687DC CONTROLLED (<130/80)BP CONTROLLED (<130/80)[facility]: 98-71-8270Diupmmsnbi ScreeningDepression ScreeningMorrow County Hospitaltart: 69-25-6089DBJGPQNAE C SCREENINGHEPATITIS C SCREENINGMorrow County Hospitaltart: 61-97-4347Grxbfuobw C screeningHepatitis C ScreeningMorrow County Hospital[facility]art: 39-65-1799Vtvewtqpjf ScreeningDepression ScreeningProMartin Memorial Hospitaltart: 69-74-3726Zonxndr ScreeningTobacco ScreeningWakeMed Cary Hospitaltart: 1945Medicare Annual Wellness VisitMedicare Annual Wellness VisitElyria Memorial HospitalBacteria identified in Urine by CultureUrine Culture Microbiology Routine Encounter for other preprocedural examination 08/13/2024 6:13 PMEDT [facility] End: 15-82-6859EFL panel - Blood by Automated countCBC Lab Routine Chronic kidney disease, unspecified CKD stage Every 3 months for 4 Occurrences starting 05/16/2023 until 05/16/2024[facility] Work Phone: comment on above:Every 3 months for 4 Occurrences starting 05/16/2023 until 05/16/2024 End: 79-28-5688Nbooxkx/Creatinine [Mass Ratio] in UrinePROTEIN CREATININE RATIO Lab Routine Chronic kidney disease, unspecified CKD stage Every 3 months for 4 Occurrences starting 05/16/2023 until 05/16/2024[facility] Work Phone: compoxo on above:Every 3 months for 4 Occurrences starting 05/16/2023 until 05/16/2024 End: 32-50-7486Jhqaw function 2000 panel - Serum or PlasmaRENAL FUNCTION PANEL Lab Routine Chronic kidney disease, unspecified CKD stage Every 3 months for 4 Occurrences starting 05/16/[address] [place] [address] Work Phone: comtvio on above:Every 3 months for 4 Occurrences starting 05/16/2023 until 05/16/2024 End: 02-43-7096Kydjrciinq complete panel - UrineURINALYSIS, WITH MICROSCOPIC Lab Routine Chronic kidney disease, unspecified CKD stage Every 3 months for 4 Occurrences starting 05/16/[address] [place] [address] Work Phone: cominra on above:Every 3 months for 4 Occurrences starting 05/16/2023 until 05/16/2024 End: 51-15-7964GL KIDNEY/BLADDERUS KIDNEY/BLADDER Radiology Routine Chronic kidney disease, unspecified CKD stage 1 Occurrences starting 05/16/[address] [place] [address] Work Phone: comvfhs on above:1 Occurrences starting 05/16/[address] [place] [address] Immunizations Immunization DateImmunizationNotesCare HapyazkhSynpahfj76-13-6219grxdxgdmv virus vaccine, unspecified formulationJr. Stepanic DO Work Phone: NOND Lddsnrgfgm86-29-9644SUZNU-50 original vaccine, age 12+ yr, monovalent (PFIZER-BIONTECH - PURPLE TOP)Lyndsay Salgado DO Work Phone: [facility] Work Phone: [phone]-46 original vaccine, age 12+ yr, monovalent (PFIZER-BIONTECH - PURPLE TOP)Lyndsay Pachecocarito DO Work Phone: [facility] Work Phone: [phone]sqcfsyac polysaccharide vaccine, 23 valentRcheri Salgado DO Work Phone: [facility] Payers DatePayer CategoryPayerPolicy [id number]-oza [id number] [employer] Member Subscriber Plan / Payer (Effective 2021-Present) Name: Amina Lim Relation to Subscriber: Self Name: Amina Lim Payer ID: Not on file Type: Not on file Address: [place] [id number] InsuranceMEDICAL MUTUAL Member Subscriber Plan / Payer (Effective 2021-Present) Name: Amina Lim Relation to Subscriber: Self Name: Amina Lim Payer ID: Not on file Type: Not on file Address: [address] [id number]3.159.2.7.3.387635.315 2011Medicare 1.2.840.518911.1.13.159.2.7.3.597659.315 [id number] 2.840.3.69730[id number] 2.0.9.407569.94 1945 [id number] 2.840.1.418411.3.57[id number] 2.840.1.269227.3.579.2.28578-82-3081Gddkpxh1689532 2.840.1.667886.3.579.[id number] 2.16840.1.010728.3.579.2.75558-06-3857Jpjbtsq74944122 2.16.840.1.887998.3.579.2.781575-83-9557Lpdkolp73203195 2.16840.1.748910.3.579.2.919008-83-3088Kqyhpzg4110223 2.16840.1.221587.3.579.2.025704-05-7233Mhgtjvj6603421 2.840.1.176600.3.579.2.131652-24-9733Knynozj6566012 2.840.1.351696.3.579.2.353163-48-6450Uhqncng5494290 2.840.1.023448.3.579.2.781868-71-1672Yzpvpdw0831967 2.840.1.658828.3.579.2.011936-85-1507Ulanoal9201049 2.840.1.770046.3.579.2.599412-93-8117Trmozus5278002 2.840.1.438075.3.579.2.993253-34-6845Gscppoa5707020 2.840.1.035148.3.579.2.919170-18-9323Dgtukzj2559307 2.16840.1.169864.3.579.2.124110-85-6145Apasyul3725485 2.840.1.238867.3.579.2.108458-82-3341Jucwuku9625344 2.16840.1.902140.3.579.2.275299-26-7928Hpbxgay5109992 2.16.840.1.478598.3.579.2.088514-76-0979Snljxnm6197305 2.16.840.1.198793.3.579.2.804267-83-4205Nfkexmf0749276 2.16.840.1.548313.3.579.2.539991-67-7617Cdbwngq2767176 2.16.840.1.420457.3.579.2.231040-76-7263Jlvvyav3631182 2.16.840.1.282535.3.579.2.390404-82-7175Mkhzjrq1657446 2.16840.1.288800.3.579.2.466262-01-6960Pblepzs0295271 2.16840.1.637167.3.579.2.787474-65-3820Llypobm4292678 2.16840.1.550268.3.579.2.657565-95-8110Qgoaiyu0826872 2.16840.1.192914.3.579.2.373277-72-1406Ghqjgfs2612182 2.16840.1.228514.3.579.2.752772-45-1536Nkvcdng1961432 2.16840.1.191336.3.579.2.297677-09-1699Zhabskd1264928 2.16.840.1.406221.3.579.2.152872-87-9857Qnyucau7272518 2.16.840.1.488340.3.579.2.136018-74-1433Pjexxti7738283 2.16.840.1.407179.3.579.2.311373-87-6301Odovaab3935541 2.16.840.1.999735.3.579.2.806337-10-3363Vspyjgv3156278 2.16.840.1.831514.3.579.2.009196-28-9092Qpqlbwm6781643 2.16.840.1.397177.3.579.2.144176-75-1153Xowgqcz1757260 2.16.840.1.164609.3.579.2.875563-54-3128Izuhlil9952505 2.16.840.1.090762.3.579.2.839047-97-0708Yvxswbm6849676 2.16.840.1.912708.3.579.2.641458-27-9714Stvtjxz3703515 2.16.840.1.900312.3.579.2.952620-44-7777Qfbsejg2952833 2.16.840.1.652405.3.579.2.451030-81-0537Xtqznfj4603293 2.16.840.1.104685.3.579.2.7703Tthlxjh43503508 2.16.840.1.028090.3.579.2.531 Social History DateTypeDetailFacilityUnknown if ever smokedNoaudrain medical center [employer] Other Start: 03-27-2019 End: 28-56-9283Thz Assigned At BirthMorrow County Hospitaltart: 05-16-2023 End: 34-36-8833Xwzixso smoking status NHISNever smoked tobaccoFairfield Medical Center Start: 05-16-2023 End: 77-42-1954Hwickrt use and exposureSmokeless tobacco non-userMorrow County Hospitaltart: 05-16-2023 End: 86-71-4485Gkvkrpr intakeCurrent drinker of alcohol (finding)[facility]: 03-27-2019 End: 53-57-4794Jkzafmx of Social functionMorrow County Hospitaltart: 82-78-3014ASN2 Kwfkf4RkfnqdyehMorrow County Hospitaltart: 93-38-9266Ngiqwia Comment2 drinks every other day, maybe 3. beer.[facility] Hospitaltart: 52-30-4161Kpe Assigned At BirthMale [facility] Hospitaltart: 69-77-6179Qvoego identityIdentifies as male gender (finding)[facility] smoking status NHISTobacco smoking consumption unknownProNavendis SystemStart: 01-04-3382Ddw assigned at birthNot on file SnowBalltart: 08-84-6200WbxKydh (finding)[employer] [facility] [employer] Procedure CodeEquipment CodeEquipment Original TextEquipment IdentifierDates Kuh-Od-N-Kind Implant - [id number]: 41-70-7638Ipphhpd on above: Description: CHECK PRICEHumeral Insert Socket 36 M + [id number]: 13-87-3427Gasogc Rsp 36mm Standard Socket Semiconstrain Humerus - [id number]_impStart: 95-07-1945Oyde Altivate Djo Surgical 12 Standard 108mm Humeral Sterile Shoulder - [id number]_lixQewgo: 01-91-8103Saawkorvf Rsp P2 30mm Glenoid Sterile - [id number]_xkgFqrbn: 32-42-9077Ckrqk Rsp 5mm 18mm Bone Lock Glenoid Baseplate Shoulder - [id number]_mzgYcczd: 01-58-3186Aslsd Rsp 5mm 26mm Bone Lock Glenoid Baseplate Shoulder - [id number]: 68-20-6778Gjnctvsqz Rsp 6.5mm Wiggins 30mm Glenoid - [id number]_vpbPgoir: 51-53-2083Kkdy Rsp 36mm Neutral Glenoid Retain Screw - [id number]_ywe Start: 89-10-9305Tbrr Rsp 36mm Neutral Glenoid Retain Screw - [id number]_impStart: 93-83-7617Zmseh Rsp 5mm 30mm Bone Lock Glenoid Baseplate Shoulder - [id number]: 26-94-3030Kfrpr Rsp 5mm 30mm Bone Lock Glenoid Baseplate Shoulder - [id number]_mdkBvtne: 05-47-9894Umrxz Rsp 5mm 18mm Bone Lock Glenoid Baseplate Shoulder - [id number]: 60-49-4860Aycwj Rsp 5mm 22mm Bone Lock Glenoid Baseplate Shoulder - [id number]_impStart: 86-18-6883Plkwj Rsp 5mm 26mm Bone Lock Glenoid Baseplate Shoulder - [id number]: 91-97-9124Nwshh Rsp 5mm 18mm Bone Lock Glenoid Baseplate Shoulder - [id number]_smkEszqg: 07-16-2019 Clinical Notes 12-19-2016 to 06-27-2025 Note Date & MyvpIxtnGlcfjdhr27-44-3673 NoteUT Cardiology - [facility] Subjective Amina Lim is a 80 [...] platelets 233 next l (more content not included)...[facility]01-23-2025 History of Present illness Narrative* LORELEI Soto - 11/07/2024 8:15 AM EST Images from the original note were not included. HISTORY OF PRESENT ILLNESS: POST OP PT Amina Lim is an 79 y.o. @ male. (EST PT) S/P (L) TKA 08/22/24 (11 WKS ) XRAYS DONE 10/03/24 IN [facility] FINISHED PT @[facility] 10/18/24 DOING WELL. S/P EXTENDED [...] for requiring urgent evaluation. documented in this encounterSullivan County Memorial HospitalLojldphpis58-83-2594 NoteUT Cardiology - [facility] Subjective Amina Lim is a 79 [...] Hyperlipidemia, used to be (more content not included)...[facility]01-07-2025 History of Present illness Narrative* Lyndsay Salgado, - 10/22/2024 10:20 AM EST Images from the original note were not included. Department of Kidney Medicine Medical Specialties [place] [facility] SERVICE DATE: 10/22/2024 SERVICE TIME: 10:27 [...] renal function. Following with cardiology at the [facility]. No longer taking NSAIDs after his [...] Take 1 tablet by mouth once daily. Umiiw-2-OUR-EPA-Fish Oil (FISH OIL) 1,000 mg (120 mg-180 mg) cap Take 1 g by mouth once daily. lovastatin (MEVACOR) 20 mg tablet Take 20 mg by mouth daily at bedtime. multivitamin (MULTIPLE VITAMINS) tablet Take 1 tablet by mouth once daily. Saw Plaistow 160 mg capsule Take 160 mg by [...] which included preparing to see the patient, mqcb-de-nlwo patient care, completing clinical documentation, and obtaining and/or reviewing separately obtained history. Visit CPLX Inherent E&M Associated with [facility] ([id number]) SIGNATURE: Lyndsay Salgado DO MHSA PATIENT NAME: Amina Lim DATE: October 22, 2024 TIME: 10:48 AM CC: PRIMARY CARE PHYSICIAN: Narciso Bullock MD documented in this encounterFairfield Medical Center01-07-2025 NoteHNO ID: [id number] Author: LYNDSAY SALGADO DO Service: ? Author Type: Physician Type: Progress Notes Filed: 10/22/2024 10:48 Note Text: Department of Kidney Medicine Medical Specialties [place] [facility] SERVICE DATE: 10/22/2024 SERVICE TIME: 10:27 [...] renal function. Following with cardiology at the [facility]. No longer taking NSAIDs after his [...] Take 1 tablet by mouth once daily. Twtog-4-JDF-EPA-Fish Oil (FISH OIL) 1,000 mg (120 mg-180 mg) cap Take 1 g by mouth once daily. lovastatin (MEVACOR) 20 mg tablet Take 20 mg by mouth daily at bedtime. multivitamin (MULTIPLE VITAMINS) tablet Take 1 tablet by mouth once daily. Saw Plaistow 160 mg capsule Take 160 mg by [...] respiratory effort. Lungs karely (more content not included)...[facility]01-02-2025 Telephone encounter Note* Telephone Encounter - [...] them. (Covering for Dr Salgado) Thanks Cassidy [facility]01-02-2025 Miscellaneous Notes* Telephone Encounter - Porfirio Hamilton [...] 10/22/24. Labs need to be faxed to [facility] @ [phone]. Call pt when done Danielle Blanchard documented in this encounterFairfield Medical Center01-02-2025 Telephone encounter Note * Telephone Encounter - Cassidy Arita DO - 10/17/2024 2:11 PM EST Covering for Dr Salgado CKD lab work ordered Cassidy Arita DO October 17, 2024, 2:15 PM [facility]01-02-2025 Telephone encounter Note* Telephone Encounter - Cassidy Arita DO - 10/17/2024 2:11 PM EST ----- Message from RHODA Han sent at 10/17/2024 1:10 PM EST ----- Regarding: Lab orders for upcoming appt w/Dr. Salgado Contact: Patient is requesting labs for upcoming appt on 10/22/24. Labs need to be faxed to [facility] @ [phone]. Call pt when done Danielle Blanchard [facility]12-24-2024 History of Present illness Narrative* Shirlene Blakely, [...] stretch into flexion PROM; tibial extension mobs [place] Goals: Increase ROM left knee to 0-110* [...] below. Physician Signature: Date: documented in this encounterSullivan County Memorial HospitalRwlamkwlqm30-89-4198 History of Present illness Narrative* Shirlene Blakely, [...] 2-3x/weeks x 6 weeks documented in this encounterSullivan County Memorial HospitalPeqazzxdfv44-49-3872 History of Present illness Narrative* LORELEI Soto - 10/03/2024 8:15 AM EST Images from the original note were not included. HISTORY OF PRESENT ILLNESS: POST OP PT Amina Lim is an 79 y.o. @ male. (EST PT) S/P (L) TKA 08/22/24 (6WKS). XRAYS DONE TODAY, 10/03/24 IN [facility] DOING WELL. CONTINUES TO HAVE SOME DISCOMFORT - TAKING PERCOCET 1/2 Q 6 HRS ; CONTINUES TO ICE. CONTINUES PHYSICAL THERAPY 2x WEEKLY @ [facility] - NOTES INCREASING ROM & STRENGTH. SOME [...] for requiring urgent evaluation. documented in this encounterSullivan County Memorial HospitalJwbetivwyk40-43-2080 History of Present illness Narrative* Shirlene Blakely, [...] 2-3x/weeks x 6 weeks documented in this encounterSullivan County Memorial HospitalYvarfaedkj83-93-0160 History of Present illness Narrative* Roseanne Sousa, [...] camping, dogs Employment retired 15 years from [employer] INTERVENTIONS: X ( ) manual therapy X 40/10 minutes therapeutic exercises for ROM and strengthening X ( ) minutes modalities: ice PT Assessment: No change in knee flexion/extension today. Did tolerate all exercise well in PT. Ice at home. Plan: PT 2-3x/weeks x 6 weeks documented in this encounterSullivan County Memorial HospitalKqmsliljlg85-73-3702 History of Present illness Narrative* Roseanne Sousa, [...] camping, dogs Employment retired 15 years from [employer] INTERVENTIONS: X 20 minutes of manual therapy to increase ROM X 30 minutes therapeutic exercises for ROM and strengthening X 10 minutes modalities: ice PT Assessment: Therapy Diagnosis: s/p left TKA with weaknessk swelling and pain [place] Goals: Increase ROM left knee to 0-110* [...] below. Physician Signature: Date: documented in this encounterSullivan County Memorial HospitalOogkklbvin15-03-0021 History of Present illness Narrative* Roseanne Sousa, [...] camping, dogs Employment retired 15 years from [employer] INTERVENTIONS: X 30 minutes therapeutic exercises for ROM and strengthening X minutes modalities: ice, e-stim prn PT Assessment: Therapy Diagnosis: 2. 5 weeks post op left TKA Functional Limitations: [place] Goals: Increase ROM left knee to 0-110* [...] below. Physician Signature: Date: documented in this encounterSullivan County Memorial HospitalGyzcbzaojl96-88-8279 History of Present illness Narrative* LORELEI Soto [...] STARTING OUTPT THERAPY NEXT WEEK @ [facility]. NOTES INCREASING ROM & STRENGTH - USING [...] left Z96.652 2. Post-operative pain G89.18 HYDROcodone-acetaminophen (Udall) 5-325 MG tablet PLAN: Assessment & Plan [...] for requiring urgent evaluation. documented in this encounterSullivan County Memorial HospitalBvlxokxeev54-33-8554 Instructions* Patient Instructions* LORELEI Soto - 09/05/2024 [...] submerging wound pending recheck. documented in this [facility]11-14-2024 Telephone encounter Note* Telephone Encounter - José Manuel Wylie NP - 08/29/2024 2:44 PM EST Patient home PT notified us of need for post op pain rx refill. PDMP reviewed. [place] [address]Tcvkxcecvt89-44-9206 Miscellaneous Notes* Telephone Encounter - José Manuel Wylie NP - 08/29/2024 2:44 PM EST Patient home PT notified us of need for post op pain rx refill. PDMP reviewed. documented in this [facility]11-06-2024 Telephone encounter Note* Telephone Encounter - José Manuel Wylie NP - 08/21/2024 8:03 AM EST Post op pain rx. PDMP reviewed [address]Ycclrhmqmz73-06-1197 Miscellaneous Notes* Telephone Encounter - José Manuel Wylie NP - 08/21/2024 8:03 AM EST Post op pain rx. PDMP reviewed documented in this [facility]10-30-2024 Telephone encounter Note* Telephone Encounter - Eva Rosenberg MA - 08/14/2024 11:10 AM EDT Acknowledged, thank you. [facility] Memorial HospitalChelgabxzi33-06-5071 Miscellaneous Notes* Telephone Encounter - Eva Rosenberg MA - 08/14/2024 11:10 AM EDT Acknowledged, thank you. * Telephone Encounter - Elizabeth Petersen - 08/14/2024 11:06 AM EDT Patient left vm to let us know he has been approved through medicare to have his LT TKA done on 08/22 with . documented in this [facility]10-30-2024 Telephone encounter Note* Telephone Encounter - Elizabeth Petersen - 08/14/2024 11:06 AM EDT Patient left vm to let us know he has been approved through medicare to have his LT TKA done on 08/22 with . [facility] HospitalEfcwcfeiez16-48-7402 NoteXR BONE LENGTH STUDY Bone length evaluation History: Osteoarthritis, limb length and alignment, knee pain Comparison: None Findings: Standing frontal view of the bilateral lower extremities obtained from the iliac crest through the feet for limb length and alignment without marker device. Impression: Severe Arthritis, osteophytes, joint space narrowing Left knee shows bztd-eo-itjr medial compartment arthritis with varus angulation measuring 4 degrees. Appropriate alignment of the right femoral-tibial angle with 2 degrees valgus and a unremarkable prosthesis of the knee Finalized by Micheal Johnson MD on 08/14/2024 5:[address] [facility] 08-13-2024 History of Present illness Narrative* LORELEI Soto - 08/13/2024 1:00 PM EDT Images from the original note were not included. GENERAL HISTORY AND PHYSICAL: NAME: Amina iLm : 1945 HISTORY OF PRESENT ILLNESS: Amina [...] MG tablet Every 24 hours Iron Polysacch Gcvab-F95-ZT (Poly-Iron 150 Forte) 150-0.025-1 MG capsule 1 [...] Ambulatory referral to Physical Therapy Iron Polysacch Zatsn-Q29-BT (Poly-Iron 150 Forte) 150-0.025-1 MG capsule Chlorhexidine Gluconate (Hibiclens) 4 % solution 2. Primary osteoarthritis of left knee M17.12 Ambulatory referral to Physical Therapy Iron Polysacch Ljnlp-W03-PI (Poly-Iron 150 Forte) 150-0.025-1 MG capsule Chlorhexidine [...] 10:30AM - Bret Jennings. documented in this encounterSullivan County Memorial HospitalFiyjcgzkae11-56-6756 History of Present illness Narrative* Jr. El Matos Joseph, DO - 08/07/2024 10:00 AM EDT Images from the original note were not included. HISTORY OF PRESENT ILLNESS: EST PT Amina Lim is an 79 y.o. @ male. (R) KNEE (EST PT) S/P (R) TKA 04/04/24 (17WKS 6DAYS) XRAYS, 05/15/24 IN [facility] NO MDP / PREDNISONE FINISHED TH[facility]AP[facility] SESS[facility] NO PAIN MGMT DOING WELL. CONTINUES HEP / RECUMBENT BIKE - NOTES GOOD ROM ; DENIES ANY WEAKNESS. DENIES ANY SWELLING. STATES HE IS VERY PLEASED WITH SURGERY. CONTINUES TO USE VOLTAREN GEL. (L) KNEE (EST PT) RECHECK (L) KNEE ; HERE TO DISCUSS SURGICAL OPTIONS XRAYS, STANDING AP 05/15/24 IN [facility] NO MRI NO MDP / PREDNISONE [...] years old, or requires discharged to a detention facility, the patient may require to have additional inpatient hospital stay following the surgery. Physical therapy is contraindicated in this patient's case because of hysw-un-uudw articulation of the patient's knee. El Ruiz D.O. documented in this encounterSullivan County Memorial HospitalPucmxnrqam54-92-8741 History of Present illness Narrative* Jr. El Ruiz DO - 06/26/2024 11:15 AM EDT Images from the original note were not included. HISTORY OF PRESENT ILLNESS: EST PT Amina Lim is an 79 y.o. @ male. (R) KNEE (EST PT ; LAST APPT W/ [facility]) S/P (R) TKA 04/04/24 (11WKS 6DAYS) XRAYS, 05/15/24 IN [facility] NO MDP / PREDNISONE FINISHED THERAPY (10 SESSIONS) @ [facility] NO PAIN MGMT CONTINUES TO HAVE SOME DISCOMFORT - RATES 4-5/10 ON PAIN SCALE ; WORSE WITH PROLONGED ACTIVITY. FINISHED PHYSICAL THERAPY @ [facility], CONTINUES HEP - NOTES INCREASING [...] TO COMPENSATE XRAYS, STANDING AP 05/15/24 IN [facility] NO MRI NO MDP / PREDNISONE [...] up. El Ruiz D.O. documented in this encounterSullivan County Memorial HospitalZgemptvmuv93-67-9272 History of Present illness Narrative* Emily Mercado - 05/24/2023 9:51 AM EDT POPULATION HEALTH NAVIGATION OUTREACH Action/[facility] [place] Support: Called pt to schedule an appt [...] 24, 2023 9:52 AM documented in this encounterFairfield Medical Center08-01-2023 Instructions* Patient Instructions* Lyndsay Salgado DO - [...] have your physicians fax over your records [phone] Make an appointment with cardiology for slow [...] will be greatly appreciated. documented in this encounterFairfield Medical Center08-01-2023 History of Present illness Narrative* Lyndsay Salgado DO - 05/16/2023 9:20 AM EDT [facility] [...] that he was previously following with a ethnic origins teacher that went over his labs every visit. States that his renal function was worsening and he was taken off a water pill that improved his renal function. His ethnic origins teacher stopped seeing patients in the office and [...] Take 1 tablet by mouth once daily. Lroiu-8-DXQ-EPA-Fish Oil (FISH OIL) 1,000 mg (120 mg-180 mg) cap Take 1 g by mouth once daily. Lecithin 1,200 mg cap Take 1 capsule by mouth once daily. lovastatin (MEVACOR) 20 mg tablet Take 20 mg by mouth daily at bedtime. multivitamin (MULTIPLE VITAMINS) tablet Take 1 tablet by mouth once daily. Saw Plaistow 160 mg capsule Take 160 mg by [...] 16, 2023 TIME: 10:06 AM OFFICE NUMBER: [phone] CC: REFERRING PROVIDER: Narciso Bullock MD PRIMARY CARE PHYSICIAN: Narciso Bullock MD documented in this encounterFairfield Medical Center11-22-2022 Evaluation note* Encounter Date Diagnosis Assessment Notes [...] Dr. Bullock for NSAIDs alternative like Tramadol [employer] Other 12-08-2021 Evaluation note* Encounter Date Diagnosis [...] He did try Tylenol with no effect. [employer] Other 03-06-2017 History of Past illness Narrative* Problem Noted DateDiagnosed DateResolved DatePrimary osteoarthritis of left shoulder Prostate naluqg28Peyronie's disease documented as of this encounter (statuses as of 05/16/2023) [facility]03-06-[facility] History of Past illness Narrative* ProblemNoted Date Diagnosed DateResolved DatePrimary osteoarthritis of left ngyusafd81/06/2017 06/25/2019Prostate xqdfbz18Peyronie's muekkmd1207/08/2009 06/25/2019documented as of this encounter (statuses as of 06/26/2023) [facility] note* Diagnosis Chronic kidney disease, unspecified CKD stage- Primary Bradycardia Other specified cardiac dysrhythmias Generalized pain Anemia of renal disease Anemia in chronic kidney disease Primary hypertension Unspecified essential hypertension documented in this encounter [facility] noteNo assessment information availableMemorial Health System [facility] Work Phone: Evaluation note* Diagnosis Acute pain of right knee- Primary History of right knee joint replacement Primary osteoarthritis of left knee documented in this encounter [facility] Healthcare[facility]* Diagnosis Preop examination- Primary Unspecified pre-operative examination Primary osteoarthritis of left knee Eczema, unspecified type documented in this encounter [facility] Healthcare[facility]* Diagnosis Post-operative pain- Primary Other acute postoperative pain documented in this encounter [facility] HealthcareEvaluation note* Diagnosis S/P TKR (total knee replacement), left- Primary Post-operative pain Other acute postoperative pain documented in this encounter [facility] HealthcareEvaluation note* Diagnosis Post-operative pain Other acute postoperative pain documented in this encounter [facility] HealthcareEvaluation note* Diagnosis S/P total knee replacement, left- Primary Acute postoperative pain of left knee documented in this encounter [facility] HealthcareEvaluation note* Diagnosis S/P total knee replacement, left- Primary Acute postoperative pain of left knee documented in this encounter [facility] HealthcareEvaluation note* Diagnosis S/P total knee replacement, left- Primary Acute postoperative pain of left knee S/P total knee replacement, left- Primary Acute postoperative pain of left knee documented in this encounter [facility] HealthcareEvaluation note* Diagnosis S/P total knee replacement, left- Primary Acute postoperative pain of left knee documented in this encounter [facility] HealthcareEvaluation note* Diagnosis S/P TKR (total knee replacement), right- Primary Primary osteoarthritis of left knee documented in this encounter [facility] HealthcareEvaluation note* Diagnosis Acute postoperative pain of left knee- Primary S/P total knee replacement, left documented in this encounter [facility] note* Diagnosis Acute postoperative pain of left knee- Primary S/P total knee replacement, left documented in this encounter [facility] note* Diagnosis Acute postoperative pain of left knee- Primary S/P total knee replacement, left documented in this encounter [facility] HealthcareEvaluation note* Diagnosis S/P TKR (total knee replacement), left- Primary Acute pain of left knee documented in this encounter [facility] HealthcareEvaluation note* Diagnosis Pre-operative clearance- Primary [...] CKD (HCC)- Primary [facility] Diagnosis Acute postoperative pain of left knee- Primary S/P total knee replacement, left documented in this encounter [facility] HealthcareEvaluation note* Diagnosis Pre-operative clearance- Primary [...] specified cardiac dysrhythmias [facility] Diagnosis S/P TKR (total knee replacement), left- Primary documented in this encounter [facility] HealthcareEvaluation note* Diagnosis Encounter for other preprocedural examination [facility] Encounter for other preprocedural examination [facility] N[facility]ative - Reported* Type Description Date Medical History hypertension Medical HistorycholecystecomyMedical HistoryArthritis left shoulder. s/p trauma long time agoMedical HistoryHyperlipidemiaMedical HistorySleep apnea with CPAP Surgical Oirusmoruybdsptrapr0612Fgsyzgod HistoryLeft shoulder replacement 5-10-1299Jygpriuw HistoryRadiation seeds put in [id number] History SHOULDER REPLACEMENT RIGHT07/16/2019Surgical HistoryNEW LENS PUT IN HIS RIGHT EYE 12/2019Hospitalization Historysee above [employer] Other History of Present illness Narrative* Shirlene [...] 2-3x/weeks x 6 weeks documented [facility]InstructionsNot on filedocumented in this encounterProToledo HospitalReason for referral (narrative)* Diagnostic Procedure Only (Routine) - Pending ReviewSpecialtyDiagnoses / Procedures Referred By ContactReferred To ContactUS IMAGING Diagnoses Chronic kidney disease, unspecified CKD stage Procedures US KIDNEY/BLADDER US RETROPERITONEAL REAL TIME W/IMAGE COMPLETE Lyndsay Salgado DO [address] [place] [address] Us [facility] Referral IDStatusReasonStart DateExpiration DateVisits RequestedVisits [id number] Auto-Generated Referral * Consult, Test, Treat (Routine) - AuthorizedSpecialtyDiagnoses / Procedures Referred By ContactReferred To ContactPain Management Diagnoses Generalized pain Procedures CONSULT TO PAIN MGT OFFICE/OUTPATIENT [facility] 60-74 MINUTES Lyndsay Salgado DO [address] [place] [address] Referral IDStatusReasonStart DateExpiration DateVisits RequestedVisits [id number] PCP Requested Referral / * Consult, Test, Treat (Routine) - AuthorizedSpecialtyDiagnoses / Procedures Referred By ContactReferred To ContactCardiology Diagnoses Bradycardia Procedures CONSULT TO CARDIOLOGY OFFICE/OUTPATIENT [facility] 60-74 MINUTES Lyndsay Salgado DO [address] [place] [address] Referral IDStatusRe[facility] DateExpiration DateVisits RequestedVisits [id number] PCP Requested Referral [facility] for visit Narrative* Rehabilitation - Outpatient (Routine) - AuthorizedSpecialtyDiagnoses / ProceduresReferred By Contact Referred To ContactPhysical Therapy Diagnoses S/P total knee replacement, left Procedures [place] OFFICE/OUTPATIENT [facility] Queta Tilley PA [address] [facility] [address] [place] [address] Phone: tel: fax: Seth Ragland, PT [address] [place] [address] Phone: tel: fax: Referral IDStatusReasonStart DateExpiration DateVisits RequestedVisits [id number] Consult and Treat / [facility] HealthcareReason for visit Narrative* Rehabilitation - Outpatient (Routine) - AuthorizedSpecialtyDiagnoses / ProceduresReferred By ContactReferred To ContactPhysical Therapy Diagnoses S/P total knee replacement, left Procedures [place] OFFICE/[facility]PATIENT [facility] Queta Tilley PA [address] [place] [address] Phone: tel: fax: Seth Ragland, PT [address] [place] [address] Phone: tel: fax: Referral IDStatusReasonStart DateExpiration DateVisits RequestedVisits [id number] Consult and Treat [facility] HealthcareReason for visit Narrative* Rehabilitation - Outpatient (Routine) - AuthorizedSpecialtyDiagnoses / ProceduresReferred By ContactReferred To ContactPhysical Therapy Diagnoses Presence of left artificial knee joint Procedures AK MANUAL THERAPY TQS 1/> REGIONS EACH 15 MINUTES Queta Tilley PA [address] [place] [address] Phone: tel: fax: Seth Ragland, PT [address] [place] [address] Phone: tel: fax: Referral IDStatusReasonStart DateExpiration DateVisits RequestedVisits [id number] Consult and Treat [facility] Healthcare Summary Purpose Family History No Family History Records Found Relationship Condition Age at Onset Recorded Date/T bridger father Heart disease Unknown DeceasedUnknownfamily memberDeceasedUnknownNot SpecifiedDiabetes mellitusUnknown Malignant neoplasmUnknownsisterHeart diseaseUnknown Advance Directives No Advanced Directives Records Found Advance Directive Response Recorded Date/ Time Advance Directives No August 11, 2020 1:09pm Hospital Course Note HNO ID: [id number] Author: Jae mcgrath (Res) MD Shi Service: [...] section and content) DATE CREATED AUTHOR 12/10/2018 [facility] DATE CREATED AUTHOR AUTHOR'S ORGANIZ ATION 07/18/2019 [facility] DATE CREATED AUTHOR AUTHOR'S ORGANIZ ATION 07/01/2020 [facility] DATE CREATED AUTHOR AUTHOR'S ORGANIZ ATION 01/23/2021 [facility] DATE CREATED AUTHOR AUTHOR'S ORGANIZ ATION 03/24/2023 [facility] DATE CREATED AUTHOR AUTHOR'S ORGANIZ ATION 03/20/2024 [facility] DATE CREATED AUTHOR AUTHOR'S ORGANIZ ATION 08/15/2024 [facility] DATE CREATED AUTHOR AUTHOR'S ORGANIZ ATION 10/25/2024 [facility] DATE CREATED AUTHOR AUTHOR'S ORGANIZ ATION 11/09/2024 [facility] DATE CREATED AUTHOR AUTHOR'S ORGANIZ ATION 07/02/2025 [facility] REASON FOR VISIT (unrecogniz ed section and content) ReasonCommentsNew NmfdbedFxzwnyFkvxrfktNaeo-scIebrJewhomPuhkaybcNdi-im Exam ReasonOnset XpmwIcvpxweuYnfyoed62/30/2024ReasonCommentsPost-opReasonCommentsPain Post-opReasonCommentsPainReasonCommentsFollow Up Source Comments (unrecognize d section and content) In the event this informatio n is protected by the Federal Confidentiality of Alcohol and Drug Abuse Patient Records regulations: The Federal rules restrict any use of the information to criminally investigate or prosecute any alcohol or drug abuse patient.[facility] CenterIn the event this information is protected by the Federal Confidentiality of Alcohol and Drug Abuse Patient Records regulations: The Federal rules restrict any use of the information to criminally investigate or prosecute any alcohol or drug abuse patient.[facility] CenterIn the event this information is protected by the Federal Confidentiality of Alcohol and Drug Abuse Patient Records regulations: The Federal rules restrict any use of the information to criminally investigate or prosecute any alcohol or drug abuse patient.[facility] CenterIn the event this information is protected by the Federal Confidentiality of Alcohol and Drug Abuse Patient Records regulations: The Federal rules restrict any use of the information to criminally investigate or prosecute any alcohol or drug abuse patient.[facility] CenterIn the event this information is protected by the Federal Confidentiality of Alcohol and Drug Abuse Patient Records regulations: The Federal rules restrict any use of the information to criminally investigate or prosecute any alcohol or drug abuse patient.[facility] Care Teams (unrecognized sec tion [...] DateEnd Date Narciso Bullock MD [address] [place] [place] [address] PCP - [facility]09/25/23Team MemberRelationshipSpecialtyStart Date End Date Narciso Bullock MD [address] [place] [facility] [place] [address] PCP - [facility] Mfivettm56/11/23Team MemberRelationshipSpecialtyStart Date End Date Narciso Bullock MD [address] [place] [facility] [place] [address] [facility] - [facility] Grwvytdj76/11/23Team MemberRelationshipSpecialtyStart Date End Date Narciso Bullock MD [address] [place] [facility] [place] [address] PCP - [facility] Tdlezogq08/11/23Team MemberRelationshipSpecialtyStart Date End Date Narciso Bullock MD [address] [place] [facility] [place] [address] PCP - [facility] Tbclubet90/11/23Team MemberRelationshipSpecialtyStart Date End Date Narciso Bullock MD [address] [place] [facility] [place] [address] PCP - Generalmily Tgkhmrin08/11/23Team MemberRelationshipSpecialtyStart Date End Date Narciso Bullock MD [address] [place] [facility] [place] [address] PCP - Generalmily Ppzqkxwq94/11/23Team MemberRelationshipSpecialtyStart Date End Date Narciso Bullock MD [address] [place] [facility] [place] [address] PCP - Generalmily Cuohmbea69/11/23Team MemberRelationshipSpecialtyStart Date End Date Narciso Bullock MD [address] [place] [facility] [place] [address] PCP - Generalmily Iavfleew41/11/23Team MemberRelationshipSpecialtyStart Date End Date Narciso Bullock MD [address] [place] [facility] [place] [address] PCP - GeneralFamily Yyhypldx62/11/23Team MemberRelationshipSpecialtyStart Date End Date Narciso Bullock MD [address] [place] [facility] [place] [address] [facility] - [facility] Kncacznj53/11/23Team MemberRelationshipSpecialtyStart Date End Date Narciso Bullock MD [address] [place] [facility] [place] [address] PCP - GeneralFamily Jnteemah81/11/23Team MemberRelationshipSpecialtyStart Date End Date Narciso Bullock MD [address] [place] [facility] [place] [address] PCP - GeneralFamily Gjrkfpgs50/11/23Team MemberRelationshipSpecialtyStart Date End Date Narciso Bullock MD [address] [place] [facility] [place] [address] PCP - GeneralFamily Hlsqfqzt18/11/23Team MemberRelationshipSpecialtyStart Date End Date Narciso Bullock MD [address] [place] [facility] [place] [address] PCP - Generalmily Vvtbqtuy59/11/23Team MemberRelationshipSpecialtyStart Date End Date Narciso Bullock MD [address] [place] [facility] [place] [address] PCP - GeneralFamily Yrehjiio45/11/23Team MemberRelationshipSpecialtyStart Date End Date Narciso Bullock MD [address] [place] [facility] [place] [address] PCP - GeneralFamily Whxomchw69/11/23Team MemberRelationshipSpecialtyStart Date End Date Narciso Bullock MD [address] [place] [facility] [place] [address] PCP - GeneralFamily Nhkxazdf07/11/23Team MemberRelationshipSpecialtyStart Date End Date Narciso Bullock MD [address] [facility] [place] [address] PCP - GeneralFamily Naycibsh47/11/23Team MemberRelationshipSpecialtyStart Date End Date Narciso Bullock MD PCP - General07/06/09Team MemberRelationshipSpecialtyStart DateEnd Date Narciso Bullock MD [address] [facility] [place] [address] PCP - GeneralFamily Dauzbamz74/11/23Team MemberRelationshipSpecialtyStart Date End Date Narciso Bullock MD PCP - General07/06/09Team MemberRelationshipSpecialtyStart DateEnd Date Narciso Bullock MD [address] [facility] [place] [address] PCP - Generalmi Iydeftif60/11/23Team MemberRelationshipSpecialtyStart Date End Date Narciso Bullock MD [address] [facility] [place] [address] PCP - Generalmily Xuyoqvby19/29/24Team MemberRelationshipSpecialtyStart Date End Date Narciso Bullock MD [address] [facility] [place] [address] PCP - Generalmi Mkwsbqma32/29/24Team MemberRelationshipSpecialtyStart Date End Date Narciso Bullock MD [address] [facility] [place] [address] PCP - GeneralFamily Qtbggoum01/29/24 Goals (unrecognized section and content) Goals may [...] BE BASED ON THE PRIMARY CLINICAL RECORDS. [facility]. provides no warranty or guarantee of the accuracy or completeness of information in this document.
[2025-10-13 10:02] LABS: Hematocrit 39.2 % (42.0-54.0); Hemoglobin 13.3 g/dL (14.0-18.0); Immature Granulocytes Abs Auto 0.03 10^3/uL (0.00-0.03); Immature Granulocytes Pct Auto 0.4 % (0.0-0.5); Lymphocytes Absolute Auto 2.8 10^3/uL (1.2-3.8); Mean Corpuscular HGB Conc 33.9 g/dL (29.9-35.2); Mean Corpuscular Hemoglobin 31.1 pg (25.9-34.0); Mean Corpuscular Volume 91.8 fL (80.0-94.0); Platelet Count 181 10^3/uL (150-450); Red Blood Count 4.27 10^6/uL (4.70-6.10); White Blood Count 7.9 10^3/uL (4.0-11.0)
[2025-10-13 10:03] LABS: Glucose Urine UA NEGATIVE (NEGATIVE)
[2025-10-13 10:07] LABS: Total Protein Urine Random <6.0 mg/dL (<=11.9)
[2025-10-13 10:18] LABS: Cast Seen? NONE SEEN #/LPF (NONE SEEN); Crystals Seen? None Seen #/HPF (None Seen); Urine Culture Indicated NO
[2025-10-13 10:34] LABS: Albumin Level 4.0 g/dL (3.4-5.0); Anion Gap 8.8; Blood Urea Nitrogen 27.0 mg/dL (7.0-18.0); Calcium 9.1 mg/dL (8.5-10.1); Carbon Dioxide 29.8 mmol/L (21.0-32.0); Chloride 104 mmol/L (98-107); Estimated GFR (African America >60 (>=60 mL/min/1.73m^2); Estimated GFR (Non-African Ame 59 (>=60 mL/min/1.73m^2); Glucose 103 mg/dL (74-106); Potassium 4.6 mmol/L (3.5-5.1); Sodium 138 mmol/L (136-145)
== END 2025-10-13 09:26 | disposition home or self-care (01) ==
LOC: LAB 09:27
PROVIDERS: PCP Family Medicine
DX: N18.31 Chronic kidney disease, stage 3a (principal)
CPT/HCPCS: 36415; 80069; 81001; 82306; 82570; 83970; 84156; 85025